=== PATIENT | female | born 1945 | race Caucasian/White ===

== ENCOUNTER 2020-09-20 22:40 | Emergency (ER) | payer MEDICARE, MEDICAID, SELFPAY ==
[2020-09-20 22:51] VITALS: BP 130/88; BP 156/66; PULSE 78; PULSE 95; RESP 18; TEMP 36.7; O2SAT 94; O2SAT 96; BMI 36.8
--- NOTE | 2020-09-20 23:07 | ECG_ITS ---
Test Reason : FALL Blood Pressure : / mmHG Vent. Rate : 064 BPM Atrial Rate : 064 BPM P-R Int : 190 ms QRS Dur : 074 ms QT Int : 448 ms P-R-T Axes : 062 040 060 degrees QTc Int : 462 ms Normal sinus rhythm Normal ECG When compared with ECG of 29-OCT-2019 09:50, No significant change was found Referred By: Shea Perry Electronically Signed By:MESHA MILLS MD
--- NOTE | 2020-09-20 23:12 | ED_ITS ---
HPI - Fall General Chief Complaint: Fall Stated Complaint: fall Time Seen by Provider: 09/20/20 22:54 Source: patient Mode of arrival: EMS History of Present Illness HPI Narrative: This is a 74-year-old female who is brought in by EMS for pe rsistent pain after she sustained a mechanical fall at approximately 4:00 p.m. this evening without loss of consciousness but does report a head strike to the left forehead and is currently on aspirin and Plavix. Patient denies any associated fevers, chills, urinary pain/ burning / frequency, dizziness, or palpitations prior to the event. She states she is having persistent right chest wall pain as well as right-sided abdominal discomfort that extends down into the right hip. She walks with the walker at baseline and does have a history of CVA. Related Data Allergies Allergy/AdvReac Type Severity Reaction Status Date / Time oxycodone [OXYCODONE] Allergy Mild ITCHING, Verified 09/20/20 22:51 itchy hydromorphone [From DILAUDID] AdvReac Mild ITCHING Verified 09/20/20 22:51 Review of Systems Review of Systems: Pertinent positives and negatives as stated in HPI 10 point review of systems is otherwise negative. PMFSH Past Medical History Source: nursing notes reviewed Medical History Diabetes Heart attack High cholesterol Stroke Social History Social History Alcohol intake: never Smoking Status: Former smoker Smoked in Last 30 Days: No Use of substances other than those prescribed or required for medical reasons: No Advance Directives: No Advance Directives Information Provided: Yes Physical Exam Vital Signs: Vital Signs: Vital Signs Temp Pulse Resp BP Pulse Ox 09/21/20 00:07 98.1 F 66 18 168/57 H 95 09/21/20 00:00 70 15 168/57 H 96 09/20/20 23:28 98.1 F 64 16 168/57 H 95 09/20/20 22:51 98.0 F 78 18 156/66 H 96 Body Mass Index 36.8 VITAL SIGNS: Reviewed. GENERAL: Well developed, well nourished, in no acute distress. HEAD: Normocephalic/ Contusion without laceration at the left forehead EYES: PERRLA, EOMI intact without pain, no nystagmus/pallor/icterus noted EARS: Ext canals without abnormality, TMs non-bulging and non-erythematous NOSE: Nares patent bilateral OROPHARYNX: no oral lesions noted, posterior pharynx clear and non-erythematous without noted tonsillar enlargement/erythema/exudates NECK: Supple, no adenopathy LUNGS: Normal breath sounds. No adventitious sounds or accessory muscle use. SpO2<96> CARDIOVASCULAR: Regular rate and rhythm without noted murmurs, no JVD or lower extremity edema. ABDOMEN: Soft, non-tender, non-distended with bowel sounds, large contusion to the right abdominal wall with pain on a palpation over the right iliac crest and mild lower right chest wall pain on palpation, No rigidity. No guarding. No palpable masses or hernias noted MUSCULOSKELETAL: No tenderness, deformities, or effusions noted on gross inspection. EXTREMITIES: No cyanosis, clubbing or edema, no noted rotation or shortening of either lower extremity. SKIN: Inspection of the skin reveals no rashes, ulcerations, jaundice, pallor, or petechiae. NEUROLOGIC: Alert and oriented x 4. Strength and sensation to light touch were g rossly intact x 4. Course Course Course Narrative: This is a 74-year-old female with history and clinical presentation consistent with mechanical fall on blood thinners with resulting contusions and some mild concern regarding possible right lower rib fracture with possible involvement of abdominal wall verses intra-abdominal injury and possibility of pelvic fracture versus contusion. Will pursue labs, imaging, EKG to rule out infectious / anemia / arrhythmia etiologies. Review of all investigations shows a leukocytosis that is felt to be secondary to stress response as CT of the chest does not identify any concerning infiltrates. Otherwise, there are no acute findings on laboratory workup and review of all imaging is otherwise negative except mildly displaced right posterior 11th rib fracture and contusion to the right abdominal wall. All results and findings were discussed with the patient at bedside and she will be discharged with instructions to use Tylenol and lidocaine patch for pain control as well as receiving an incentive spirometer. MDM - Fall Lab Data Result diagrams: 09/20/20 23:27 09/20/20 23:27 Labs: Lab Results 09/20/20 09/20/20 09/20/20 Range/Units 23:27 23:27 23:27 WBC 13.2 H (4.8-10.8) X10*3/uL RBC 3.65 L (4.20-5.50) X10*6/uL Hgb 10.8 L (12.0-16.0) g/dl Hct 33.7 L (37-47) % MCV 92.3 (80-98) fL MCH 29.6 (27.0-33.0) pg MCHC 32.0 (31.0-35.0) g/dl RDW 13.9 (11.0-16.0) % Plt Count 231 (160-400) X10*3/uL MPV 10.6 (9.4-12.3) fL Immature Gran % (Auto) 0.4 (0.0-0.4) % Neut % (Auto) 77.2 H (45-73) % Lymph % (Auto) 15.1 L (20-40) % [place] % (Auto) 5.6 (2-11) % Eos % (Auto) 1.2 (0-4) % Baso % (Auto) 0.5 (0-2) % Lymph # (Auto) 2.0 (1.2-4.9) X10*3/uL [place] # (Auto) 0.7 (0.1-1.2) X10*3/uL Eos # (Auto) 0.2 (0.0-0.4) X10*3/uL Baso # (Auto) 0.1 (0.0-0.2) X10*3/uL Abs Immat Gran (auto) 0.05 H (0.00-0.03) X10*3/uL Absolute Neuts (auto) 10.1 H (2.0-8.3) X10*3/uL Absolute Nucleated RBC 0.000 (0.0-0.012) X10*3/uL Nucleated RBC % (auto) 0.0 (0.0-0.2) /100WBC PT 12.7 (10.8-13.0) SEC INR 1.1 (0.9-1.1) Sodium 140 (135-145) mmol/L Potassium 4.7 (3.3-5.1) mmol/l Chloride 107 (96-108) mmol/L Carbon Dioxide 21 L (22-29) mmol/L Anion Gap 17 (12-20) BUN 24 H (9-16) mg/dL Creatinine 1.08 (0.5-1.4) mg/dL Estim Creat Clear Calc 51.8 Estimated GFR 50 Random Glucose 181 H (60-115) mg/dL Calcium 8.5 (8.4-10.2) mg/dL Total Bilirubin 0.3 (0.0-1.0) mg/dL AST 20 (5-31) U/L ALT 12 (0-31) U/L Alkaline Phosphatase 99 (39-117) U/L Total Protein 7.3 (6.5-8.0) g/dL Albumin 3.8 (3.5-5.0) g/dL ECG Data Attestation: I personally reviewed and interpreted this ECG as follows: Prior ECG tracings: available for review ( 10/29/2019 no acute changes on comparison) Interpretation: normal sinus rhythm, HR - 64, no evidence of acute ischemia, AL/QRS / QTC are within normal limits. Discharge Plan Discharge Clinical Impression: Contusion, Right rib fracture Patient Disposition: Home, Self-Care Instructions: Fall Prevention (ED), Fall Prevention for Older Adults (ED), Co ntusion in Adults (ED), How to Use an Incentive Spirometer (ED) Additional Instructions: 1. Resume all home medications as prescribed. 2. Tylenol 1000 mg, orally, every 6 hours as needed for pain control. Do not exceed 4000 mg within 24 hours. 3. Lidocaine patch, these are available [id number] and all [facility]/ [facility], please apply to area of maximal tenderness as directed on the outside packaging. 4. Incentive spirometry, please perform this exercise 10 times every 2 hours to assist in the prevention of developing pneumonia. The patient and/or family acknowledge understanding of results (as applicable), diagnosis, treatment plan, need for follow up, and symptoms that should prompt a return to the emergency room. Referrals: Nahid Waterman MD [Primary Care Provider] - 2 days (Fall with mildly displaced right 11th posterior rib)
[2020-09-20 23:28] VITALS: BP 168/57; PULSE 64; RESP 16; TEMP 36.7; O2SAT 95
[2020-09-20 23:33] LABS: MANUAL DIFF FLAG NO
[2020-09-20 23:34] LABS: Basophils Absolute Auto 0.1 X10*3/uL (0.0-0.2); Basophils Percent Auto 0.5 % (0-2); Eosinophils Absolute Auto 0.2 X10*3/uL (0.0-0.4); Eosinophils Percent Auto 1.2 % (0-4); Hematocrit 33.7 % (37-47); Hemoglobin 10.8 g/dl (12.0-16.0); Imm Gran Abs Auto 0.05 X10*3/uL (0.00-0.03); Imm Gran Pct Auto 0.4 % (0.0-0.4); Lymphocytes Percent Auto 15.1 % (20-40); Mean Corpuscular Hemoglobin 29.6 pg (27.0-33.0); Mean Corpuscular Volume 92.3 fL (80-98); Mean Platelet Volume 10.6 fL (9.4-12.3); Monocytes Absolute Auto 0.7 X10*3/uL (0.1-1.2); Monocytes Percent Auto 5.6 % (2-11); Neutrophils Absolute Auto 10.1 X10*3/uL (2.0-8.3); Neutrophils Percent Auto 77.2 % (45-73); Platelet Count 231 X10*3/uL (160-400); Red Blood Count 3.65 X10*6/uL (4.20-5.50); Red Cell Distribution Width 13.9 % (11.0-16.0); White Blood Count 13.2 X10*3/uL (4.8-10.8)
[2020-09-20 23:40] LABS: INTERNATIONAL NORM RATIO 1.1 (0.9-1.1); Prothrombin Time 12.7 SEC (10.8-13.0)
--- NOTE | 2020-09-20 23:44 | PC.NURSE ---
updated patient daughter in waiting room on POC. agreeable, no further questions at this time. PCT at bedside for EKG
[2020-09-20 23:59] LABS: Alanine Aminotransferase 12 U/L (0-31); Albumin Level 3.8 g/dL (3.5-5.0); Alkaline Phosphatase 99 U/L (39-117); Anion Gap 17 (12-20); Aspartate Amino Transferase 20 U/L (5-31); Bilirubin Total 0.3 mg/dL (0.0-1.0); Blood Urea Nitrogen 24 mg/dL (9-16); Calcium 8.5 mg/dL (8.4-10.2); Carbon Dioxide 21 mmol/L (22-29); Chloride 107 mmol/L (96-108); Creatinine Clr Calc Pharmacy 51.8; Estimated Glomerular Filt Rate 50; Glucose Random 181 mg/dL (60-115); Potassium 4.7 mmol/l (3.3-5.1); Sodium 140 mmol/L (135-145); Total Protein 7.3 g/dL (6.5-8.0)
[2020-09-21] VITALS: BP 168/57; PULSE 70; RESP 15; O2SAT 96
[2020-09-21 00:07] VITALS: BP 168/57; PULSE 66; RESP 18; TEMP 36.7; O2SAT 95
--- NOTE | 2020-09-21 00:10 | CT_ITS ---
EXAMINATION: CT HEAD WITHOUT CONTRAST CLINICAL INFORMATION: Fall. On Plavix COMPARISON: 10/28/2019 TECHNIQUE: Contiguous axial imaging was performed from the skull base to vertex without intravenous contrast. This CT examination was performed using dose optimization techniques as appropriate, variously including the following: * Automated exposure control * Adjustment of mA and/or kV according to patient size (this includes techniques or standardized protocols for targeted exams where dose is matched to indication/reason for exam; i.e. extremities or head) Use of iterative reconstruction technique DLP: 724 mGy-cm. FINDINGS: There is no evidence of acute intracranial hemorrhage or territorial infarction. No abnormal mass effect or midline shift is seen. Mazariegos to white matter differentiation is well preserved. No extra-axial fluid collections are identified. No hydrocephalus. Proportional prominence of the ventricles and sulcal spaces is consistent with mild volume loss. Chronic left cerebellar hemisphere infarct. The osseous structures and soft tissues are normal. Opacification of the left sphenoid sinus. The mastoid air cells and visualized portions of the paranasal sinuses are otherwise well aerated. CT/CT head/brain wo con IMPRESSION: No acute intracranial pathology.
--- NOTE | 2020-09-21 00:10 | CT_ITS ---
EXAMINATION: CT CHEST WITH CONTRAST CT ABDOMEN AND PELVIS WITH CONTRAST CLINICAL INFORMATION: Fall. Right chest wall pain. Contusion of right abdominal wall. COMPARISON: 10/28/2019 TECHNIQUE: Multidetector volumetric imaging was performed through the chest, abdomen and pelvis following the administration of 85 mL of Omnipaque 350 intravenous contrast. Sagittal and coronal reformatted images were obtained on the technologist's workstation. Axial MIP volume rendering provided. This CT examination was performed using dose optimization techniques as appropriate, variously including the following: *Automated exposure control *Adjustment of mA and/or kV according to patient size (this includes techniques or standardized protocols for targeted exams where dose is matched to indication/reason for exam; i.e. extremities or head) *Use of iterative reconstruction technique DLP: 1205 mGy-cm. FINDINGS: CHEST: Lungs: The central airways are patent. There is moderate centrilobular emphysema. Mild septal thickening. Scattered areas of groundglass opacification. No dense consolidation. No pleural effusion or pneumothorax. No suspicious pulmonary nodules. Mediastinum: The heart is of normal size. There is no pericardial effusion. Central vascular structures are unremarkable. There is mediastinal and bilateral hilar lymphadenopathy. For instance, there is a right paratracheal lymph node short axis measurement 1.4 cm on series 5 image 20. This lymph node had measured 0.9 cm on the study from 10/28/2019. There are also enlarged hilar lymph nodes bilaterally, for instance measuring 1.1 cm on the left on series 5 image 28.. Chest Wall/Axilla: No lymphadenopathy. There is asymmetric ill-defined density in the left breast soft tissues, likely similar to previous. ABDOMEN/PELVIS: Liver, Gallbladder, Biliary Tree: The liver is normal in size, shape, and attenuation. No focal hepatic lesion or biliary ductal dilatation is present. Multiple stones are seen within the gallbladder lumen. No gallbladder wall thickening or pericholecystic fluid. Pancreas: Unremarkable. Spleen: Unremarkable. Adrenal Glands: Unremarkable. Kidneys and Ureters: The kidneys are normal in size, shape, and attenuation. There is no hydronephrosis or hydroureter. Mild perinephric stranding bilaterally. There is a left sided 0.4 cm calculus in the proximal ureter/renal pelvis. Scattered vascular calcifications. Left upper pole renal cyst. Bladder: Unremarkable. Gastrointestinal Tract: Tiny hiatal hernia. Duodenal diverticulum. Normal caliber small bowel. No obstruction. Colonic diverticulosis without diverticulitis. No free air or free fluid. Abdominal Wall: Prominent stranding overlies the right flank. No abdominal wall hernia. Lymphovascular Structures: Lymph nodes: Normal. Vascular: Normal caliber aorta with moderate atherosclerotic calcification. Pelvic Viscera: Uterus is not seen. No adnexal mass. OSSEOUS STRUCTURES: The sternum is intact. Vertebral body height and alignment is maintained. Mild disc space narrowing at the lower lumbar spine with vacuum disc phenomenon. Small multilevel endplate osteophytes. Diffuse facet arthropathy. There is a minimally displaced posterior right 11th rib fracture. This appears acute. No additional rib fractures are seen. The sacroiliac joints are symmetric. The pubic symphysis is intact. No pelvic fracture. CT/CT abdomen pelvis w con IMPRESSION: 1. Minimally displaced acute right posterior 11th rib fracture. 2. Soft tissue contusion along the right flank cutaneous tissues. No pelvic fracture. 3. Moderate emphysema. Scattered groundglass opacities in the lungs may be infectious or inflammatory. There is new mediastinal and hilar lymphadenopathy which is nonspecific. 4. There is a 0.4 cm calculus in the proximal left ureter/renal pelvis. No hydronephrosis.
[2020-09-21] MEDS: iohexoL 350 MG/ML 100 ML INFUS..BTL 85 ML IV (01:17)
[2020-09-21 01:56] LABS: Glucose Urine UA NEG (NEG); Leukocyte Esterase Urine NEG (NEG); Nitrite Urine NEG (NEG); Specific Gravity - Urine 1.015 (1.005-1.025); Urine Blood 1+ (NEG); Urine Ketones NEG (NEG); Urine Protein 1+ MG/DL (NEG-TRACE)
[2020-09-21] MEDS: Lidocaine 4 % Patch ADH..PATCH 1 PATCH TRANSDERMA (01:56)
[2020-09-21 01:57] LABS: Appearance Urine CLEAR; Color Urine YELLOW
[2020-09-21] MEDS: Acetaminophen 325 MG TABLET 975 MG PO (01:58)
[2020-09-21 02:04] VITALS: BP 150/55; PULSE 85; RESP 18; O2SAT 95
[2020-09-21 02:07] LABS: Bacteria Urine 1+ /LPF; Squamous Epithelial Cell Urine 1+ /LPF
== END 2020-09-21 02:40 | disposition home or self-care (01) ==
PROVIDERS: Emergency Provider Student in an Organized Health Care Education/Training Program; PCP Internal Medicine
DX: S22.31XA Fracture of one rib, right side, initial encounter for closed fracture (principal); S09.90XA Unspecified injury of head, initial encounter; S70.01XA Contusion of right hip, initial encounter; G44.309 Post-traumatic headache, unspecified, not intractable; R07.89 Other chest pain; M25.551 Pain in right hip; W18.30XA Fall on same level, unspecified, initial encounter; Y93.9 Activity, unspecified; Y92.008 Other place in unspecified non-institutional (private) residence as the place of occurrence of the external cause; Y99.9 Unspecified external cause status; Z87.891 Personal history of nicotine dependence
CPT/HCPCS: 36415; 70450; 71260; 74177; 80053; 81001; 85025; 85610; 93005; 99284; Q9967

== ENCOUNTER → 2020-12-08 10:22 | Outpatient (BNVA) | payer MEDICARE, MEDICAID, SELFPAY | PROVIDERS: PCP Internal Medicine; Visit Provider Nurse Practitioner Family | DX: R55 Syncope and collapse (principal); I95.1 Orthostatic hypotension; I25.10 Atherosclerotic heart disease of native coronary artery without angina pectoris; E78.5 Hyperlipidemia, unspecified; E11.9 Type 2 diabetes mellitus without complications; Z95.5 Presence of coronary angioplasty implant and graft; Z98.890 Other specified postprocedural states | CPT/HCPCS: 93005; 99212 ==

== ENCOUNTER → 2020-12-30 13:50 | Outpatient (REF) | payer MEDICARE, MEDICAID, SELFPAY ==
--- NOTE | 2020-12-30 13:56 | CA_ITS ---
Transthoracic Echocardiogram Patient (Last, First, Middle): Lilli Yepez A Gender: Female Date of : 1945 Age: 75 Procedure Date: 12/30/2020 Procedure Type: Transthoracic Echocardiogram Location: OP Height: 152.4 cm Weight: 90.72 kg BSA: 1.87 m2 Heart Rate: bpm BP: 130 / 80 mmHg Dispute Specialist: ODETTE Sutherland MD: Karla Palm SALAD [employer] Consultant: Dioni Ngo MD Symptoms: R55 - Syncope and collapse Study Quality: Fair ECG Rhythm: Sinus Conclusions: - 1. Normal LV systolic function with elevated left ventricular end-diastolic pressure 2. Normal cardiac valvular Doppler with moderate mitral annular calcification 3. Normal RV systolic pressure 4. No pericardial effusion Findings Left Ventricle Normal left ventricular size, thickness, and systolic function. The visually estimated ejection fraction is between 55-60%. Spectral Doppler is indicative of an impaired relaxation filling pattern. Elevated left ventricular end diastolic pressure. Right Ventricle Normal right ventricular cavity size and systolic function. Atria The left atrium is likely dilated. There is no evidence of interatrial shunt. The right atrium is normal in size. Aortic Valve There is mild calcification of the aortic valve. There is no aortic valve stenosis. There is no aortic valve regurgitation. Mitral Valve There is mild anterior and moderate posterior mitral leaflet thickening. There is moderate mitral annular calcification. There is trace mitral valve regurgitation. There is no mitral valve stenosis. Pulmonic Valve The pulmonic valve was not well visualized. Tricuspid Valve Likely normal tricuspid valve structure and function. There is mild tricuspid valve regurgitation. The right ventricular systolic pressure is normal. The right ventricular systolic pressure is 21 mmHg. Normal right atrial pressure. There is no evidence of pulmonary hypertension. Great Vessels All visible segments of the aorta are normal in size. The pulmonary artery was not well visualized. Small plaque is seen in the sino tubular ridge. Venous The inferior vena cava is normal in size and collapses greater than 50% with inspiration. Pericardium/Pleural There is no evidence of pericardial effusion. Prior Study Comparison No significant change compared to prior study dated: 10/29/2019. Measurements 2D Linear Measurements IVSd: 1.10 0.6-0.9/0.6-1.0 cm LVIDd: 4.15 3.9-5.3/4.2-5.9 cm LVIDd Index: 2.22 2.4-3.2/2.2-3.1 cm/m2 LVIDs: 3.02 2.0-3.6 cm LVPWd: 1.03 0.7-1.1 cm Ao Root: 3.30 2.1-3.5 cm LA Diam: 3.60 2.7-3.8/3.0-4.0 cm LAIDs Index: 1.93 1.5-2.3 cm/m2 LV Mass: 183.25 67-162/88-224 g LV Mass Index: 97.99 43-95/49-115 g/m2 LVOT Diam: 2.10 3.0+(-)1.3 cm 2D Systolic Function EF 4C: 56.60 >55% EF 2C: 55.00 >55% EF BiP: 56.40 >55% Mitral Valve MV Pk E: 1.18 MV PK A: 1.37 MV Decel Time: 158.00 E/A: 0.90 E'Lateral: 5.55 E'Medial: 5.11 E/E' Med: 23.10 E/E' Lat: 21.30 PHT: 46.00 MVA PHT: 4.78 Decel [place]: 7.44 Aortic Valve AoV Pk Stuart: 1.27 AoV Mn Stuart: 1.00 AoV VTI: 0.38 AoV Pk Grad: 6.00 Aov Mn Grad: 4.00 ALEKSANDAR Cont.VTI: 1.80 LVOT LVOT Pk Stuart: 0.68 LVOT Mn Stuart: 0.51 LVOT VTI: 0.20 LVOT Pk Grad: 2.00 LVOT Mn Grad: 1.00 LVOT Diam: 2.10 LVOT Area: 3.46 Diastolic Function MV Pk E: 1.18 MV Pk A: 1.37 E/A: 0.90 E'Medial: 5.11 E/E' Med: 23.10 E' Laterial: 5.55 E/E' Lat: 21.30 Tricuspid Valve TR Pk Stuart: 2.11 TR Pk Grad: 18.00 RA Press: 3.00 RVSP: 21.00 Great Vessels Aorta Ao Root-2D: 3.30 2.0-3.7 cm Ao Asc: 2.70 2.1-3.4 cm Ao Arch: 2.40 Updated in Other Vendor System with Status of Final Dioni Ngo MD electronically signed on 12/31/2020 9:17:16 AM with status of Final
== END ==
LOC: HO.CARD 13:50
PROVIDERS: Visit Provider Nurse Practitioner Family
DX: I25.10 Atherosclerotic heart disease of native coronary artery without angina pectoris (principal); R55 Syncope and collapse; E11.9 Type 2 diabetes mellitus without complications
CPT/HCPCS: 93306

== ENCOUNTER → 2021-01-05 11:12 | Outpatient (BNVA) | payer MEDICARE, MEDICAID, SELFPAY | PROVIDERS: PCP Internal Medicine; Visit Provider Nurse Practitioner Family | DX: Z13.89 Encounter for screening for other disorder (principal) | CPT/HCPCS: Q3014 ==

== ENCOUNTER → 2021-04-26 12:54 | Outpatient (BNVA) | payer MEDICARE, MEDICAID, SELFPAY | PROVIDERS: PCP Internal Medicine; Visit Provider Internal Medicine Cardiovascular Disease | DX: I95.1 Orthostatic hypotension (principal); I25.10 Atherosclerotic heart disease of native coronary artery without angina pectoris; R55 Syncope and collapse | CPT/HCPCS: 99212 ==

== ENCOUNTER → 2021-05-25 09:53 | Outpatient (BNVA) | payer MEDICARE, MEDICAID, SELFPAY | PROVIDERS: PCP Internal Medicine | DX: R35.1 Nocturia (principal); N39.41 Urge incontinence | CPT/HCPCS: 99212 ==

== ENCOUNTER → 2021-05-27 12:51 | Outpatient (BNVA) | payer MEDICARE, MEDICAID, SELFPAY | PROVIDERS: PCP Internal Medicine; Referring Provider Internal Medicine; Visit Provider Nurse Practitioner Family | DX: I95.1 Orthostatic hypotension (principal); I25.10 Atherosclerotic heart disease of native coronary artery without angina pectoris; E78.5 Hyperlipidemia, unspecified; R55 Syncope and collapse; Z98.890 Other specified postprocedural states | CPT/HCPCS: 99212 ==

== ENCOUNTER → 2021-06-29 14:51 | Outpatient (BNVA) | payer MEDICARE, MEDICAID, SELFPAY | PROVIDERS: PCP Internal Medicine; Referring Provider Internal Medicine; Visit Provider Internal Medicine Cardiovascular Disease | DX: R06.02 Shortness of breath (principal); I95.1 Orthostatic hypotension; I21.4 Non-ST elevation (NSTEMI) myocardial infarction; I25.119 Atherosclerotic heart disease of native coronary artery with unspecified angina pectoris; Z95.5 Presence of coronary angioplasty implant and graft; Z98.890 Other specified postprocedural states; Z87.891 Personal history of nicotine dependence; Z88.5 Allergy status to narcotic agent; Z79.4 Long term (current) use of insulin; Z79.899 Other long term (current) drug therapy | CPT/HCPCS: 99212 ==

== ENCOUNTER → 2021-06-30 10:40 | Outpatient (BNVA) | payer MEDICARE, MEDICAID, SELFPAY | PROVIDERS: PCP Internal Medicine | CPT/HCPCS: Q3014 ==

== ENCOUNTER 2021-08-02 06:25 | Day surgery (SDC) | payer MEDICARE, MEDICAID, SELFPAY ==
[2021-07-27 15:33] VITALS: BMI 41.2
--- NOTE | 2021-07-30 12:30 | MHC.SHP ---
Pre-Procedural Eval Section A Date of Service: 07/30/21 The patient is an INPATIENT: No Changes since office visit: No Cold of Flu in the past 2 weeks, No New Medical Problems, No Changes in Medication and No Patient answered all questions The History & Physical has been completed within 30 days and I have reviewed it.: No Section B Chief Complaint: cataract Allergies: Allergies Allergy/AdvReac Type Severity Reaction Status Date / Time oxycodone [OXYCODONE] Allergy Mild ITCHING, Verified 07/27/21 15:16 itchy adhesive tape Allergy Unknown Verified 07/27/21 15:17 bee pollen [bee stings] Allergy Swelling Verified 07/27/21 15:17 hydromorphone [From DILAUDID] AdvReac Mild ITCHING Verified 07/27/21 15:16 Plan Diagnosis/Plan: Unchanged I have reviewed the history and physical and performed a pertinent physical examination on my patient. No changes have occurred unless specified.
--- NOTE | 2021-07-30 13:12 | HO.ANESPROP2 ---
Documented by User: Migdalia El NP 07/30/21 13:14 HPI - Anesthesia Eval Consult details Narrative: 75yo F for Right Cataract Extraction IOL Insertion PCP cleared No previous cataract on record [facility] Active Problems Active Problems: All Active Problems (Updated 07/27/21 @ 15:10 by Leena Helms, RN) Syncope (Acute) Urge incontinence (Acute) Nocturia more than twice per night (Acute) History of cardiac catheterization (Acute) Orthostatic hypotension (Acute) Stented coronary artery (Acute) Diabetes (Acute) HLD (hyperlipidemia) (Acute) CAD (coronary artery disease) (Acute) Past Medical History Medical History (Updated 08/02/21 @ 07:34 by Nasra Mccurdy MD) CAD (coronary artery disease) Cataract CKD (chronic kidney disease) COPD (chronic obstructive pulmonary disease) Depression Diabetes Diabetic retinopathy Heart attack Hiatal hernia High cholesterol HLD (hyperlipidemia) Hypercholesterolemia Mild anemia NSTEMI (non-ST elevated myocardial infarction) Orthostatic hypotension HAYDEE on CPAP Osteoarthritis Resting tremor Sleep apnea Stroke Unsteady gait Vertigo Family History Family History Father CVD (cardiovascular disease) Mother Brain aneurysm Surgical History Surgical History (Updated 07/27/21 @ 15:10 by Leena Helms RN) History of cardiac catheterization Hx of colonoscopy Hx of vaginal hysterectomy Stented coronary artery Social History Social History Are you a primary skin care therapist to a significant other at home: No Do you presently have visiting nurse or other home services: Yes (Meals on Wheels) Alcohol intake: never Patient Tobacco Use Status: Former Tobacco user Quit Date: 7 yrs ago Tobacco use type: Cigarette Use of substances other than those prescribed or required for medical reasons: No Have you been hit, kicked, punched, or otherwise hurt by someone within the past year? If so, by whom?: No Are you DNR?: No Advance Directives: No Advance Directives Information Provided: No Advance Directives on File: No Recently lost weight without trying: No Eating poorly because of decreased appetite: No Nutrition Risks: No Nutritional Risk Patient : No Meds Allergies Allergy/AdvReac Type Severity Reaction Status Date / Time oxycodone [OXYCODONE] Allergy Mild ITCHING, Verified 07/27/21 15:16 itchy adhesive tape Allergy Unknown Verified 07/27/21 15:17 bee pollen [bee stings] Allergy Swelling Verified 07/27/21 15:17 hydromorphone [From DILAUDID] AdvReac Mild ITCHING Verified 07/27/21 15:16 Home Medications Medication Instructions Recorded Confirmed Last Taken Type atorvastatin 80 mg tablet 80 mg PO DAILY 12/08/20 07/27/21 Unknown History ezetimibe 10 mg tablet 10 mg PO DAILY 12/08/20 07/27/21 Unknown History fluoxetine 20 mg capsule 20 mg PO DAILY 12/08/20 07/27/21 08/02/21 History insulin glargine 100 unit/mL (3 30 unit SUBCUT BEDTIME ml 12/08/20 07/27/21 Unknown History mL) subcutaneous pen losartan 100 mg tablet 100 mg PO DAILY 12/08/20 07/27/21 Unknown History metformin 500 mg tablet 500 mg PO BID 12/08/20 07/27/21 08/02/21 History metoprolol tartrate 25 mg tablet 25 mg PO BID 12/08/20 07/27/21 Unknown History aspirin 81 mg tablet,delayed 81 mg PO DAILY 04/26/21 07/27/21 Unknown History release (Adult Aspirin Regimen) pen needle, diabetic 32 gauge x #50 ea 05/25/21 06/29/21 Unknown History albuterol sulfate 90 mcg/actuation 2 puff INHALATION Q4-6H PRN 07/27/21 07/27/21 Unknown History aerosol inhaler (ProAir HFA) Exam Exam Date and Time: July 30, 2021 1312 Height,Weight and Vital Signs: Height 4 ft 11 in Weight 92.6 kg Narrative Narrative: ECHO Conclusions: - 1. Normal LV systolic function with elevated left ventricular? end-diastolic pressure ? 2. Normal cardiac valvular Doppler with moderate mitral annular? calcification? 3. Normal RV systolic pressure ? 4. No pericardial effusion ? ? ? Assessment and Plan Assessment Anesthesia Assessment: Chart Reviewed Documented by User: Nasra Mccurdy MD 08/02/21 07:51 [facility] Active Problems Active Problems: All Active Problems (Updated 07/27/21 @ 15:10 by Leena Helms, RN) Syncope (Acute) Urge incontinence (Acute) Nocturia more than twice per night (Acute) History of cardiac catheterization (Acute) Orthostatic hypotension (Acute) Stented coronary artery (Acute). Only on aspirin now. Had been on plavix- d'jimmie 05/[address] Ngo Diabetes (Acute) HLD (hyperlipidemia) (Acute) CAD (coronary artery disease) (Acute). Denies recent chest pain Past Medical History Medical History (Updated 08/02/21 @ 07:34 by Nasra Mccurdy MD) CAD (coronary artery disease) Cataract CKD (chronic kidney disease) COPD (chronic obstructive pulmonary disease) Depression Diabetes Diabetic retinopathy Heart attack Hiatal hernia High cholesterol HLD (hyperlipidemia) Hypercholesterolemia Mild anemia NSTEMI (non-ST elevated myocardial infarction) Orthostatic hypotension HAYDEE on CPAP Osteoarthritis Resting tremor Sleep apnea Stroke Unsteady gait Vertigo Family History Family History Father CVD (cardiovascular disease) Mother Brain aneurysm Family history of problems with anesthesia: No Surgical History Surgical History (Updated 07/27/21 @ 15:10 by Leena Helms, JONATHAN) History of cardiac catheterization Hx of colonoscopy Hx of vaginal hysterectomy Stented coronary artery History of Problems with Anesthesia: No Social History Social History Are you a primary skin care therapist to a significant other at home: No Do you presently have visiting nurse or other home services: Yes (Meals on Wheels) Alcohol intake: never Patient Tobacco Use Status: Former Tobacco user Quit Date: 7 yrs ago Tobacco use type: Cigarette Use of substances other than those prescribed or required for medical reasons: No Have you been hit, kicked, punched, or otherwise hurt by someone within the past year? If so, by whom?: No Are you DNR?: No Advance Directives: No Advance Directives Information Provided: No Advance Directives on File: No Recently lost weight without trying: No Eating poorly because of decreased appetite: No Nutrition Risks: No Nutritional Risk Patient : No Meds Allergies Allergy/AdvReac Type Severity Reaction Status Date / Time oxycodone [OXYCODONE] Allergy Mild ITCHING, Verified 07/27/21 15:16 itchy adhesive tape Allergy Unknown Verified 07/27/21 15:17 bee pollen [bee stings] Allergy Swelling Verified 07/27/21 15:17 hydromorphone [From DILAUDID] AdvReac Mild ITCHING Verified 07/27/21 15:16 Home Medications Medication Instructions Recorded Confirmed Last Taken Type atorvastatin 80 mg tablet 80 mg PO DAILY 12/08/20 07/27/21 Unknown History ezetimibe 10 mg tablet 10 mg PO DAILY 12/08/20 07/27/21 Unknown History fluoxetine 20 mg capsule 20 mg PO DAILY 12/08/20 07/27/21 08/02/21 History insulin glargine 100 unit/mL (3 30 unit SUBCUT BEDTIME ml 12/08/20 07/27/21 Unknown History mL) subcutaneous pen losartan 100 mg tablet 100 mg PO DAILY 12/08/20 07/27/21 Unknown History metformin 500 mg tablet 500 mg PO BID 12/08/20 07/27/21 08/02/21 History metoprolol tartrate 25 mg tablet 25 mg PO BID 12/08/20 07/27/21 Unknown History aspirin 81 mg tablet,delayed 81 mg PO DAILY 04/26/21 07/27/21 Unknown History release (Adult Aspirin Regimen) pen needle, diabetic 32 gauge x #50 ea 05/25/21 06/29/21 Unknown History albuterol sulfate 90 mcg/actuation 2 puff INHALATION Q4-6H PRN 07/27/21 07/27/21 Unknown History aerosol inhaler (ProAir HFA) Exam Height,Weight and Vital Signs: Height 4 ft 11 in Weight 92.6 kg Vital Signs Temp Pulse Resp BP Pulse Ox 08/02/21 07:14 98.2 F 68 20 188/63 H 96 Pertinent Lab Results Pertinent Lab Results: Lab Results 09/13/21 Range/Units 07:06 POC Glucose 119 H (60-115) mg/dL Airway Mallampati Class: III TM Dist: >3cm Neck ROM: Full Denture: Upper Heart: RRR Lungs: CTAB Assessment and Plan Assessment Anesthesia Assessment: Anesthesia Plan Discussed Final Anesthetic Review Family History of Problems with Anesthesia: No History of Problems with Anesthesia: No NPO: Yes ASA Class: III Final Preanesthetic Review: No Changes in Pt Med Stat, Meds/Allgs Chart Reviewed, Consent Obtained/Reviewed and Anes Risks/Benef Reviewed Patient Risk: Intermediate Procedure Risk: Low Assessment/Block/Sedation in SS: Assess/Block/Sedation-SS Anesthetic Plan Anesthetic Plan: MAC: Disposition: Standard PACU
[2021-08-02 07:10] LABS: Glucose, Whole Blood 119 mg/dL (60-115)
[2021-08-02 07:14] VITALS: BP 188/63; PULSE 68; RESP 20; TEMP 36.8; O2SAT 96
[2021-08-02] MEDS: Tetracaine HCl/PF 0.5% Oph Sol 4 ML DROPS 1 DROP EYE-RIGHT (07:15)
[2021-08-02] MEDS: Tropicamide 1 % Ophth Sol 3 ML BTL 1 DROP EYE-RIGHT ×3 (07:18→07:26)
[2021-08-02] MEDS: Phenylephrine HCL 2.5% Oph SoL 2 ML BOTTLE 1 DROP EYE-RIGHT ×3 (07:21→07:30)
[2021-08-02] MEDS: Lactated Ringers 500 ML 50 ML IV (07:37)
--- NOTE | 2021-08-02 08:20 | HO.PNOPHT ---
Ophthalmology Procedure Procedure Date of Service: 08/02/21 Ophthalmology Viscoelastic: Healon Duet Dual Pack Pro Ophthalmology Lenses: TECNIS [id number] (23.5) Procedure Notes: PREOPERATIVE DIAGNOSIS: Decreased visual acuity right eye secondary to cataract POSTOPERATIVE DIAGNOSIS: Same PROCEDURE: Right cataract extraction with intraocular lens insertion SURGEON: Zeus Nye M.D. ANESTHESIA: Topical/MAC ESTIMATED BLOOD LOSS: None COMPLICATIONS: None After obtaining informed consent, the patient was brought to the operating room suite and placed in the supine position. After adequate sedation per anesthesia, topical drops of Tetracaine were given to the right eye. The eye was then prepped and draped in the usual sterile fashion. The operating room microscope was then positioned over the operative eye and a lid speculum placed. A paracentesis was created. Viscoelastic was then instilled into the anterior chamber. A three plane incision was then created temporally, utilizing a 2.85 mm keratome. Capsulotomy forceps were then utilized to create a circular tear capsulotomy. Hydrodissection and hydrodelineation were carried out until adequate mobilization of the nucleus occurred. Phacoemulsification was then utilized to remove the dense central nucleus followed by removal of the cortical material utilizing the automated aspiration irrigation unit. Viscoelastic was instilled into the posterior capsular bag followed by placement of a posterior chamber intraocular lens without difficulty. The residual Viscoelastic was then removed utilizing the automated IA machine. The wound was checked and found to be watertight. The patient tolerated the procedure well and the lid speculum was removed. Intracameral injection of Vigamox 0.1 mL followed by a subtenon injection of Kenalog-40 0.2 mL were administered. The patient will be seen in the a.m.
[2021-08-02 08:40] VITALS: BP 127/73; PULSE 67; RESP 18; TEMP 36.4; O2SAT 96
== END 2021-08-02 08:52 | disposition home or self-care (01) ==
PROVIDERS: PCP Internal Medicine; Visit Provider Ophthalmology
PROC: (CPT 66985; principal; 2021-08-02 08:20)
DX: H25.11 Age-related nuclear cataract, right eye (principal); H35.3131 Nonexudative age-related macular degeneration, bilateral, early dry stage; I10 Essential (primary) hypertension; E11.9 Type 2 diabetes mellitus without complications; G47.33 Obstructive sleep apnea (adult) (pediatric); I25.10 Atherosclerotic heart disease of native coronary artery without angina pectoris; Z98.61 Coronary angioplasty status; Z86.73 Personal history of transient ischemic attack (TIA), and cerebral infarction without residual deficits; Z87.891 Personal history of nicotine dependence; Z79.84 Long term (current) use of oral hypoglycemic drugs; Z79.899 Other long term (current) drug therapy; Z79.82 Long term (current) use of aspirin
CPT/HCPCS: 66984; 82947; J2250; J3010; J3300; V2632

== ENCOUNTER 2021-08-16 07:28 | Day surgery (SDC) | payer MEDICARE, MEDICAID, SELFPAY ==
[2021-07-27 15:37] VITALS: BMI 42.8
--- NOTE | 2021-08-11 13:15 | MHC.SHP ---
Pre-Procedural Eval Section A Date of Service: 08/11/21 The patient is an INPATIENT: No Changes since office visit: No Cold of Flu in the past 2 weeks, No New Medical Problems, No Changes in Medication and No Patient answered all questions The History & Physical has been completed within 30 days and I have reviewed it.: Yes Section B Chief Complaint: cataract Allergies: Allergies Allergy/AdvReac Type Severity Reaction Status Date / Time oxycodone [OXYCODONE] Allergy Mild ITCHING, Verified 07/27/21 15:16 itchy adhesive tape Allergy Unknown Verified 07/27/21 15:17 bee pollen [bee stings] Allergy Swelling Verified 07/27/21 15:17 hydromorphone [From DILAUDID] AdvReac Mild ITCHING Verified 07/27/21 15:16 Plan Diagnosis/Plan: Unchanged I have reviewed the history and physical and performed a pertinent physical examination on my patient. No changes have occurred unless specified.
--- NOTE | 2021-08-13 08:40 | HO.ANESPROP2 ---
Documented by User: Migdalia El NP 08/13/21 08:41 HPI - Anesthesia Eval Consult details Narrative: 75yo F for Left Cataract Extraction IOL Insertion PCP cleared R eye 08/02/21 with TIVA: Fent 50, Midaz 1.5 PMFSH Active Problems Active Problems: All Active Problems (Updated 08/02/21 @ 07:34 by Nasra Mccurdy MD) Syncope (Acute) Urge incontinence (Acute) Nocturia more than twice per night (Acute) History of cardiac catheterization (Acute) Orthostatic hypotension (Acute) Stented coronary artery (Acute) Diabetes (Acute) HLD (hyperlipidemia) (Acute) CAD (coronary artery disease) (Acute) Past Medical History Medical History (Updated 08/02/21 @ 07:34 by Nasra Mccurdy MD) CAD (coronary artery disease) Cataract CKD (chronic kidney disease) COPD (chronic obstructive pulmonary disease) Depression Diabetes Diabetic retinopathy Heart attack Hiatal hernia High cholesterol HLD (hyperlipidemia) Hypercholesterolemia Mild anemia NSTEMI (non-ST elevated myocardial infarction) Orthostatic hypotension HAYDEE on CPAP Osteoarthritis Resting tremor Sleep apnea Stroke Unsteady gait Vertigo Family History Family History Father CVD (cardiovascular disease) Mother Brain aneurysm Family history of problems with anesthesia: No Surgical History Surgical History (Updated 08/10/21 @ 15:13 by Leena Helms RN) History of cardiac catheterization History of cataract extraction Hx of colonoscopy Hx of vaginal hysterectomy Stented coronary artery History of Problems with Anesthesia: No Social History Social History Are you a primary healthcare facility administrator to a significant other at home: No Do you presently have visiting nurse or other home services: Yes (Meals on Wheels) Alcohol intake: never Patient Tobacco Use Status: Former Tobacco user Quit Date: 7 yrs ago Tobacco use type: Cigarette Use of substances other than those prescribed or required for medical reasons: No Have you been hit, kicked, punched, or otherwise hurt by someone within the past year? If so, by whom?: No Are you DNR?: No Advance Directives: No Advance Directives Information Provided: No Advance Directives on File: No Recently lost weight without trying: No Eating poorly because of decreased appetite: No Nutrition Risks: No Nutritional Risk Patient : No Meds Allergies Allergy/AdvReac Type Severity Reaction Status Date / Time oxycodone [OXYCODONE] Allergy Mild ITCHING, Verified 07/27/21 15:16 itchy adhesive tape Allergy Unknown Verified 07/27/21 15:17 bee pollen [bee stings] Allergy Swelling Verified 07/27/21 15:17 hydromorphone [From DILAUDID] AdvReac Mild ITCHING Verified 07/27/21 15:16 Home Medications Medication Instructions Recorded Confirmed Last Taken Type atorvastatin 80 mg tablet 80 mg PO DAILY 12/08/20 07/27/21 Unknown History ezetimibe 10 mg tablet 10 mg PO DAILY 12/08/20 07/27/21 08/16/21 History fluoxetine 20 mg capsule 20 mg PO DAILY 12/08/20 07/27/21 08/02/21 History insulin glargine 100 unit/mL (3 30 unit SUBCUT BEDTIME ml 12/08/20 07/27/21 Unknown History mL) subcutaneous pen losartan 100 mg tablet 100 mg PO DAILY 12/08/20 07/27/21 Unknown History metformin 500 mg tablet 500 mg PO BID 12/08/20 07/27/21 08/02/21 History metoprolol tartrate 25 mg tablet 25 mg PO BID 12/08/20 07/27/21 08/16/21 History aspirin 81 mg tablet,delayed 81 mg PO DAILY 04/26/21 07/27/21 Unknown History release (Adult Aspirin Regimen) pen needle, diabetic 32 gauge x #50 ea 05/25/21 06/29/21 Unknown History albuterol sulfate 90 mcg/actuation 2 puff INHALATION Q4-6H PRN 07/27/21 07/27/21 Unknown History aerosol inhaler (ProAir HFA) Exam Exam Date and Time: August 13, 2021 0840 Height,Weight and Vital Signs: Height 4 ft 11 in Weight 96.2 kg Assessment and Plan Assessment Anesthesia Assessment: Chart Reviewed Final Anesthetic Review Family History of Problems with Anesthesia: No History of Problems with Anesthesia: No Documented by User: Len Larson MD 08/16/21 07:58 [facility] Past Medical History Medical History (Updated 08/02/21 @ 07:34 by Nasra Mccurdy MD) CAD (coronary artery disease) Cataract CKD (chronic kidney disease) COPD (chronic obstructive pulmonary disease) Depression Diabetes Diabetic retinopathy Heart attack Hiatal hernia High cholesterol HLD (hyperlipidemia) Hypercholesterolemia Mild anemia NSTEMI (non-ST elevated myocardial infarction) Orthostatic hypotension HAYDEE on CPAP Osteoarthritis Resting tremor Sleep apnea Stroke Unsteady gait Vertigo Family History Family History Father CVD (cardiovascular disease) Mother Brain aneurysm Surgical History Surgical History (Updated 08/10/21 @ 15:13 by Leena Helms RN) History of cardiac catheterization History of cataract extraction Hx of colonoscopy Hx of vaginal hysterectomy Stented coronary artery Social History Social History Are you a primary healthcare facility administrator to a significant other at home: No Do you presently have visiting nurse or other home services: Yes (Meals on Wheels) Alcohol intake: never Patient Tobacco Use Status: Former Tobacco user Quit Date: 7 yrs ago Tobacco use type: Cigarette Use of substances other than those prescribed or required for medical reasons: No Have you been hit, kicked, punched, or otherwise hurt by someone within the past year? If so, by whom?: No Are you DNR?: No Advance Directives: No Advance Directives Information Provided: No Advance Directives on File: No Recently lost weight without trying: No Eating poorly because of decreased appetite: No Nutrition Risks: No Nutritional Risk Patient : No Meds Allergies Allergy/AdvReac Type Severity Reaction Status Date / Time oxycodone [OXYCODONE] Allergy Mild ITCHING, Verified 07/27/21 15:16 itchy adhesive tape Allergy Unknown Verified 07/27/21 15:17 bee pollen [bee stings] Allergy Swelling Verified 07/27/21 15:17 hydromorphone [From DILAUDID] AdvReac Mild ITCHING Verified 07/27/21 15:16 Home Medications Medication Instructions Recorded Confirmed Last Taken Type atorvastatin 80 mg tablet 80 mg PO DAILY 12/08/20 07/27/21 Unknown History ezetimibe 10 mg tablet 10 mg PO DAILY 12/08/20 07/27/21 08/16/21 History fluoxetine 20 mg capsule 20 mg PO DAILY 12/08/20 07/27/21 08/02/21 History insulin glargine 100 unit/mL (3 30 unit SUBCUT BEDTIME ml 12/08/20 07/27/21 Unknown History mL) subcutaneous pen losartan 100 mg tablet 100 mg PO DAILY 12/08/20 07/27/21 Unknown History metformin 500 mg tablet 500 mg PO BID 12/08/20 07/27/21 08/02/21 History metoprolol tartrate 25 mg tablet 25 mg PO BID 12/08/20 07/27/21 08/16/21 History aspirin 81 mg tablet,delayed 81 mg PO DAILY 04/26/21 07/27/21 Unknown History release (Adult Aspirin Regimen) pen needle, diabetic 32 gauge x #50 ea 05/25/21 06/29/21 Unknown History albuterol sulfate 90 mcg/actuation 2 puff INHALATION Q4-6H PRN 07/27/21 07/27/21 Unknown History aerosol inhaler (ProAir HFA) Exam Airway Mallampati Class: III TM Dist: >3cm Neck ROM: Full Denture: Upper Loose/Missing/Broken Teeth: Yes Heart: [id number] Lungs: cta b/l Assessment and Plan Assessment Anesthesia Assessment: Anesthesia Plan Discussed Final Anesthetic Review NPO: Yes ASA Class: III Final Preanesthetic Review: No Changes in Pt Med Stat, Meds/Allgs Chart Reviewed, Consent Obtained/Reviewed and Anes Risks/Benef Reviewed Patient Risk: Intermediate Procedure Risk: Low Assessment/Block/Sedation in SS: Assess/Block/Sedation-SS Anesthetic Plan Anesthetic Plan: MAC: and Agree w/ Assess. and Plan Disposition: Standard PACU
[2021-08-16 07:55] VITALS: BP 171/70; PULSE 75; RESP 18; TEMP 36.7; O2SAT 93
[2021-08-16] MEDS: Tetracaine HCl/PF 0.5% Oph Sol 4 ML DROPS 1 DROP EYE-LEFT (08:01)
[2021-08-16] MEDS: Tropicamide 1 % Ophth Sol 3 ML BTL 1 DROP EYE-LEFT ×3 (08:02→08:17)
[2021-08-16] MEDS: Phenylephrine HCL 2.5% Oph SoL 2 ML BOTTLE 1 DROP EYE-LEFT ×3 (08:08→08:22)
[2021-08-16] MEDS: Lactated Ringers 500 ML 50 ML IV (08:08)
--- NOTE | 2021-08-16 09:09 | HO.PNOPHT ---
Ophthalmology Procedure Procedure Date of Service: 08/16/21 Ophthalmology Viscoelastic: Healon Duet Dual Pack Pro Ophthalmology Lenses: TECFLORENTINO [id number] (24) Procedure Notes: PREOPERATIVE DIAGNOSIS: Decreased visual acuity left eye secondary to cataract POSTOPERATIVE DIAGNOSIS: Same PROCEDURE: Left cataract extraction with intraocular lens insertion SURGEON: Zeus Nye M.D. ANESTHESIA: Topical/MAC ESTIMATED BLOOD LOSS: None COMPLICATIONS: None After obtaining informed consent, the patient was brought to the operation room suite and placed in the supine position. After adequate sedation per anesthesia, topical drops of Tetracaine were given to the left eye. The eye was then prepped and draped in the usual sterile fashion. The operating room microscope was then positioned over the operative eye and a lid speculum placed. A paracentesis was created. Viscoelastic was then instilled into the anterior chamber. A three plane incision was then created temporally, utilizing a 2.85 mm keratome. Capsulotomy forceps were then utilized to create a circular tear capsulotomy. Hydrodissection and hydrodelineation were carried out until adequate mobilization of the nucleus occurred. Phacoemulsification was then utilized to remove the dense central nucleus followed by removal of the cortical material utilizing the automated aspiration irrigation unit. Viscoat elastic was instilled into the posterior capsular bag followed by placement of a posterior chamber intraocular lens without difficulty. The residual Viscoat elastic was then removed utilizing the automated IA machine. The wound was check and found to be watertight. The patient tolerated the procedure well and the lid speculum was removed. Intracameral injection of Vigamox 0.1 mL followed by a subtenon injection of Kenalog-40 0.2 mL were administered. The patient will be seen in the a.m.
[2021-08-16 09:32] VITALS: BP 151/55; PULSE 61; RESP 18; TEMP 36.4; O2SAT 96
== END 2021-08-16 09:44 | disposition home or self-care (01) ==
PROVIDERS: PCP Internal Medicine; Visit Provider Ophthalmology
PROC: (CPT 66985; principal; 2021-08-16 09:10)
DX: H25.12 Age-related nuclear cataract, left eye (principal); E11.9 Type 2 diabetes mellitus without complications; I10 Essential (primary) hypertension; Z86.73 Personal history of transient ischemic attack (TIA), and cerebral infarction without residual deficits; I25.2 Old myocardial infarction; Z79.82 Long term (current) use of aspirin; Z79.84 Long term (current) use of oral hypoglycemic drugs; Z79.899 Other long term (current) drug therapy
CPT/HCPCS: 66984; J2250; J3300; V2632

== ENCOUNTER → 2022-01-31 13:23 | Outpatient (BNVA) | payer MEDICARE, MEDICAID, SELFPAY | PROVIDERS: PCP Internal Medicine; Visit Provider Internal Medicine Cardiovascular Disease | DX: R06.02 Shortness of breath (principal); I25.10 Atherosclerotic heart disease of native coronary artery without angina pectoris; Z79.899 Other long term (current) drug therapy | CPT/HCPCS: 93005; 99212 ==

== ENCOUNTER → 2022-02-23 08:21 | Outpatient (REF) | payer MEDICARE, MEDICAID, SELFPAY ==
--- NOTE | ~2022-02-23 | NM_ITS ---
Lexiscan Myocardial perfusion study Indication: Shortness of breath, known coronary disease with LAD/RCA stenting, abnormal EKG, assess for ischemia Technique: The patient was brought in for a Lexiscan perfusion study on 02/23/2022 and was injected 0.4 mg of Lexiscan intravenously. Within a minute of this injection 30 mCi of sestamibi was given intravenously. Images were obtained using the SPECT gamma camera interlaced with the gating device. Images were obtained in supine position. Resting perfusion study was performed on 02/24/2022. Patient was administered 30 mCi of sestamibi intravenously at rest. Images were then obtained in supine position. Total [id number]. Images were processed with the software and compared side to side in short axis, horizontal long axis and vertical long axis views. Findings: Raw acquisition was reviewed. Arms by the patient's side. The stress perfusion study showed markedly reduced tracer uptake in most of the inferior wall, inferolateral wall; basal inferoseptal wall. There is slight improvement with CT at admission correction which may indicate some components of diaphragmatic attenuation artifact. The gated study shows low normal LV systolic function with calculated LVEF of 50%. LV cavity is normal in size. The gated study shows diminished contractility in the inferior wall and inferolateral wall, basal inferoseptal wall. Resting study shows improved tracer uptake in the inferior wall, inferoseptal wall, inferolateral wall compared to the stress acquisition. Gating at rest reveals reduced contractility in the basal septum, inferior septum, inferior wall as well as most of the inferolateral wall. The findings are consistent with inferior, inferoseptal as well as the inferolateral defect with fixed and reversible components. NM/NM jonelle perf SPECT rest & str Impression: 1. Myocardial perfusion imaging study shows ischemia/infarct pattern involving the inferior wall, inferolateral wall as well as basal part of inferior septum. There is significant ischemia component. 2. Gated LVEF is 50% during stress and 56% during rest. 3. Transient ischemic dilatation not present. EKG component of the test reported separately.
--- NOTE | 2022-02-23 08:28 | CA_ITS ---
Transthoracic Echocardiogram Patient (Last, First, Middle): Lilli Yepez A Gender: Female Date of : 1945 Age: 76 Procedure Date: 02/23/2022 Procedure Type: Transthoracic Echocardiogram Location: OP Height: 147.32 cm Weight: 93.9 kg BSA: 1.85 m2 Heart Rate: bpm BP: 150 / 90 mmHg Termite Renewal Inspector: ODETTE Sutherland MD: Dioni Ngo MD [employer] Lead: Dioni Ngo MD Symptoms: R06.02 - Shortness of breath Study Quality: Poor ECG Rhythm: Sinus Conclusions: - 1. Normal LV systolic function with mild LVH with impaired relaxation filling pattern and elevated filling pressures 2. Normal cardiac valvular Doppler 3. Normal RV systolic pressure 4. No pericardial effusion Findings Left Ventricle Normal left ventricular size and systolic function. There is mildly increased left ventricular wall thickness. The visually estimated ejection fraction is between 55-60%. Spectral Doppler is indicative of an impaired relaxation filling pattern. Elevated filling pressures. E/E prime ratio is >15, consistent with elevated filling pressures. Right Ventricle Normal right ventricular cavity size and systolic function. Atria The left atrium is mildly dilated. There is lipomatous hypertrophy of the interatrial septum. There is no evidence of interatrial shunt. The right atrium is normal in size. Aortic Valve The aortic valve was not well visualized. There is no aortic valve stenosis. There is no aortic valve regurgitation. Mitral Valve There is mild anterior and posterior mitral leaflet thickening. There is mild mitral valve regurgitation. There is no mitral valve stenosis. Pulmonic Valve The pulmonic valve was not well visualized. Tricuspid Valve Likely normal tricuspid valve structure and function. There is trace tricuspid valve regurgitation. The right ventricular systolic pressure is normal. Normal right atrial pressure. There is no evidence of pulmonary hypertension. Great Vessels All visible segments of the aorta are normal in size. The pulmonary artery was not well visualized. Venous The inferior vena cava is normal in size and collapses greater than 50% with inspiration. Pericardium/Pleural There is no evidence of pericardial effusion. Prior Study Comparison No significant change compared to prior study dated: 12/30/2020. Measurements 2D Linear Measurements IVSd: 1.19 0.6-0.9/0.6-1.0 cm LVIDd: 4.12 3.9-5.3/4.2-5.9 cm LVIDd Index: 2.23 2.4-3.2/2.2-3.1 cm/m2 LVIDs: 2.91 2.0-3.6 cm LVPWd: 1.20 0.7-1.1 cm LA Diam: 4.00 2.7-3.8/3.0-4.0 cm LAIDs Index: 2.16 1.5-2.3 cm/m2 LV Mass: 214.20 67-162/88-224 g LV Mass Index: 115.78 43-95/49-115 g/m2 LVOT Diam: 2.00 3.0+(-)1.3 cm 2D Systolic Function EF 4C: 51.80 >55% EF 2C: 53.20 >55% EF BiP: 51.90 >55% Mitral Valve MV Pk E: 1.08 MV PK A: 1.24 MV Decel Time: 142.00 E/A: 0.90 E'Lateral: 4.03 E'Medial: 4.46 E/E' Med: 24.20 E/E' Lat: 26.80 PHT: 42.00 MVA PHT: 5.24 Decel [place]: 7.58 Aortic Valve AoV Pk Stuart: 1.29 AoV Mn Stuart: 0.93 AoV VTI: 0.35 AoV Pk Grad: 7.00 Aov Mn Grad: 4.00 ALEKSANDAR Cont.VTI: 1.77 LVOT LVOT Pk Stuart: 0.66 LVOT Mn Stuart: 0.44 LVOT VTI: 0.19 LVOT Pk Grad: 2.00 LVOT Mn Grad: 1.00 LVOT Diam: 2.00 LVOT Area: 3.14 Diastolic Function MV Pk E: 1.08 MV Pk A: 1.24 E/A: 0.90 E'Medial: 4.46 E/E' Med: 24.20 E' Laterial: 4.03 E/E' Lat: 26.80 Right Ventricle TAPSE (mm): 34.30 TVS' Stuart: 21.20 Tricuspid Valve TR Pk Stuart: 1.44 TR Pk Grad: 8.00 RA Press: 3.00 RVSP: 11.00 Great Vessels Aorta Sinus of Valsalva: 2.88 2.0-3.[address] [place]: 3.01 1.7-3.4 cm Ao Asc: 3.10 2.1-3.4 cm Updated in Other Vendor System with Status of Final Dioni Ngo MD electronically signed on 02/25/2022 4:52:30 PM with status of Final
--- NOTE | 2022-02-23 08:28 | CA_ITS ---
Acquisition Time: 2022-02-23 09:47:32 Total Exercise Time: 00:02:00 Test Indications: ashd,sob,cad Medications: Protocol: LEXISCAN Max HR: 076 BPM 52% of Pred: 144 BPM Max BP: 128/072 mmHG Max Work Load: 1.0 METS Pharmacological stress test with Lexiscan injection, while sitting and kicking her legs, with brief sob post injection, no chest discomfort, without arrythmia, with normotensive response to injection, with nondiagnostic EKG for ischemia. In recovery she reported lightheadedness that was treated with Aminophylline 75mg IVP to reverse Lexiscan with resolution of symptom. Nuclear images pending. Test reviewed with Dr Ngo. Referred By: Dioni Ngo Overread By: RENE TRAN
== END ==
LOC: HO.CARD 08:21
PROVIDERS: Visit Provider Internal Medicine Cardiovascular Disease
DX: I25.10 Atherosclerotic heart disease of native coronary artery without angina pectoris (principal); R06.02 Shortness of breath
CPT/HCPCS: 78452; 93017; 93306; A9500

== ENCOUNTER → 2022-03-09 13:35 | Outpatient (BNVA) | payer MEDICARE, MEDICAID, SELFPAY | PROVIDERS: PCP Internal Medicine; Visit Provider Internal Medicine Cardiovascular Disease | DX: I25.10 Atherosclerotic heart disease of native coronary artery without angina pectoris (principal) | CPT/HCPCS: 99212 ==

== ENCOUNTER → 2022-04-06 15:09 | Outpatient (BNVA) | payer MEDICARE, MEDICAID, SELFPAY | PROVIDERS: PCP Internal Medicine; Visit Provider Nurse Practitioner Family | DX: R94.39 Abnormal result of other cardiovascular function study (principal); R07.89 Other chest pain; R06.02 Shortness of breath; I25.10 Atherosclerotic heart disease of native coronary artery without angina pectoris; E78.5 Hyperlipidemia, unspecified; Z98.890 Other specified postprocedural states | CPT/HCPCS: 99212 ==

== ENCOUNTER → 2022-07-07 12:59 | Outpatient (BNVA) | payer MEDICARE, MEDICAID, SELFPAY | PROVIDERS: PCP Internal Medicine; Visit Provider Internal Medicine Cardiovascular Disease | DX: I25.10 Atherosclerotic heart disease of native coronary artery without angina pectoris (principal); I95.1 Orthostatic hypotension | CPT/HCPCS: 99212 ==

== ENCOUNTER → 2022-11-07 10:20 | Outpatient (BNVA) | payer MEDICARE, MEDICAID, SELFPAY | PROVIDERS: PCP Internal Medicine; Visit Provider Urology | DX: N39.41 Urge incontinence (principal); R35.1 Nocturia; N32.81 Overactive bladder | CPT/HCPCS: 51798; 99212 ==

== ENCOUNTER 2023-01-09 16:11 | Inpatient (IN) | payer MEDICARE, MEDICAID, SELFPAY ==
--- NOTE | ~2023-01-09 | CT_ITS ---
EXAMINATION: CT CHEST WITHOUT CONTRAST CLINICAL INFORMATION: Shortness of breath COMPARISON: Chest CT 09/21/2020 TECHNIQUE: Multidetector volumetric CT imaging of the chest was done. Axial MIP volume rendering provided. Sagittal and coronal reformatted images were obtained. This CT examination was performed using dose optimization techniques as appropriate, variously including the following: *Automated exposure control *Adjustment of mA and/or kV according to patient size (this includes techniques or standardized protocols for targeted exams where dose is matched to indication/reason for exam; i.e. extremities or head) *Use of iterative reconstruction technique DLP: 353 mGy-cm FINDINGS: LUNGS: Mild centrilobular emphysema. No airspace consolidation. No suspicious appearing pulmonary nodules. Scattered small sub-4 mm calcified granulomas bilaterally. A few small sessile left-sided perifissural nodules consistent with small intrapulmonary lymph nodes, unchanged. Minimal subsegmental atelectasis in the inferior right middle lobe. Central airways are clear. MEDIASTINUM: No cardiomegaly or pericardial effusion. Extensive three-vessel coronary artery vascular calcifications. No thoracic aortic aneurysm. Extensive aortic vascular calcifications. Nondilated central pulmonary trunk. Borderline enlarged right lower paratracheal lymph node measuring 1 cm in short axis, previously 1.5 cm and nonspecific. No other enlarged mediastinal or hilar lymph nodes. CORONARY ARTERY CALCIFICATION: Present, as above. PLEURA: No pleural fluid collection or pneumothorax. AXILLA: No lymphadenopathy. UPPER ABDOMEN: Cholelithiasis. Visualized upper abdominal viscera otherwise unremarkable. OSSEOUS STRUCTURES: No acute fracture or suspicious osseous lesion. Mild multilevel thoracic spondylosis. CT/CT chest wo IV con IMPRESSION: 1. No airspace consolidation or effusions. 2. Mild centrilobular emphysema. 3. No new or suspicious pulmonary nodules. 4. Cholelithiasis.
--- NOTE | ~2023-01-09 | XR_ITS ---
EXAMINATION: XR CHEST CLINICAL INFORMATION: Covid since 12/28/2022 with shortness of breath COMPARISON: CT chest 09/21/2020, chest radiograph 10/28/2019 TECHNIQUE: 2 views of the chest were obtained. FINDINGS: No significant abnormality is noted involving the heart, lungs, mediastinum, bony thorax or soft tissues. Mild degenerative changes are present at the AC joints. Vascular calcifications are seen in the aorta and axillary arteries. XR/XR chest 2V IMPRESSION: No acute intrathoracic disease.
[2023-01-09 17:31] VITALS: BP 178/48; PULSE 67; RESP 22; TEMP 36.6; O2SAT 92; BMI 40.4
--- NOTE | 2023-01-09 17:37 | ECG_ITS ---
Test Reason : COVID SYMPTOMS Blood Pressure : / mmHG Vent. Rate : 064 BPM Atrial Rate : 064 BPM P-R Int : 168 ms QRS Dur : 082 ms QT Int : 440 ms P-R-T Axes : 070 043 076 degrees QTc Int : 453 ms Normal sinus rhythm Nonspecific ST abnormality Abnormal ECG When compared with ECG of 20-SEP-2020 23:41, No significant change was found Referred By: Jerri Pacheco Electronically Signed By:CHRIS PINO
--- NOTE | 2023-01-09 17:38 | ED.SOB ---
HPI - SOB/Dyspnea General Chief Complaint: Upper Respiratory Symptoms <DUC Felipe - Last Filed: 01/09/23 17:40> Stated Complaint: covid/ sent by dr <DUC Felipe - Last Filed: 01/09/23 17:40> Time Seen by Provider: 01/09/23 18:47 <DUC Felipe - Last Filed: 01/09/23 17:40> Source: patient <DUC Hu - Last Filed: 01/09/23 19:52> Mode of arrival: ambulatory <DUC Hu - Last Filed: 01/09/23 19:52> Limitations: no limitations <DUC Hu - Last Filed: 01/09/23 19:52> History of Present Illness HPI Narrative: This is a 77-year-old female history of urge incontinence, orthostatic hypotension, diabetes, hyperlipidemia, coronary artery disease, known COVID positive since December 28, fully vaccinated with to vaccines into boosters presenting with shortness of breath, chest congestion, dry cough, fatigue, malaise, subjective fevers and chills, weakness since December 28. According to patient her was COVID positive in she also tested positive for COVID. She has been rapidly declining over the past few days. Significant shortness of breath with exertion. No chest pain however reports she feels like her chest is congested. Patient denies nausea, vomiting, abdominal pain, changes in urination or bowel habits. Upon history taking patient very winded and with increased work of breathing. <DUC Hu - Last Filed: 01/09/23 19:52> Related Data Home Medications: Home Medications Medication Instructions Recorded Confirmed atorvastatin 80 mg tablet 80 mg PO DAILY 12/08/20 11/07/22 ezetimibe 10 mg tablet 10 mg PO DAILY 12/08/20 11/07/22 fluoxetine 20 mg capsule 20 mg PO DAILY 12/08/20 11/07/22 losartan 100 mg tablet 100 mg PO DAILY 12/08/20 11/07/22 metformin 500 mg tablet 500 mg PO BID 12/08/20 11/07/22 metoprolol tartrate 25 mg tablet 25 mg PO BID 12/08/20 11/07/22 pen needle, diabetic 32 gauge x #50 ea 05/25/21 11/07/2232 albuterol sulfate 90 mcg/actuation 2 puff inhalation Q4-6H PRN 07/27/21 11/07/22 aerosol inhaler (ProAir HFA) Wheezing clopidogrel 75 mg tablet 75 mg PO DAILY 04/06/22 11/07/22 insulin glargine 100 unit/mL (3 24 unit subcut BEDTIME 07/07/22 11/07/22 mL) subcutaneous pen Previous Rx's Medication Instructions Recorded nitroglycerin 0.4 mg sublingual 0.4 mg sublingual Q5M PRN chest 03/10/22 tablet pain #20 tabs amlodipine 2.5 mg tablet 2.5 mg PO DAILY #90 tabs 06/27/22 Toviaz 8 mg tablet,extended 8 mg PO DAILY 90 days #90 tabs 11/07/22 release (fesoterodine) <DUC Felipe - Last Filed: 01/09/23 17:40> Allergies/Adverse Reactions: Allergies Allergy/AdvReac Type Severity Reaction Status Date / Time oxycodone [OXYCODONE] Allergy Mild ITCHING, Verified 01/09/23 17:31 itchy adhesive tape Allergy Unknown Verified 01/09/23 17:31 bee pollen [bee stings] Allergy Swelling Verified 01/09/23 17:31 hydromorphone [From DILAUDID] AdvReac Mild ITCHING Verified 01/09/23 17:31 <DUC Felipe - Last Filed: 01/09/23 17:40> Review of Systems Review of Systems: Constitutional : No Weight loss, + Fever, + Chills, + Fatigue, + Malaise ENT/Mouth : No sore throat, No Rhinorrhea Eyes: No Eye Pain, No Swelling, No Redness Cardiovascular : No Chest Pain, + SOB, + Dyspnea on Exertion, No Orthopnea, No Edema, No Palpitations Respiratory : + Cough, No Sputum, No Wheezing Gastrointestinal : No Nausea, No Vomiting, No Diarrhea, No Constipation, No abdominal Pain, No Hematochezia, No Melena Genitourinary : No Dysuria, No Urinary Frequency, No Hematuria, Musculoskeletal : No joint pain, No Myalgias, No Joint Swelling Skin : No Skin Lesions, No rash Neuro : + Weakness, No Numbness, No Dizziness, No Headache Psych : No Anxiety/Panic, No Depression All other systems reviewed and are negative <DUC Hu - Last Filed: 01/09/23 19:52> Yes all other systems are reviewed and are negative <DUC Hu - Last Filed: 01/09/23 19:52> [facility] Past Medical History Attestation statement: The following information was validated with the patient. <DUC Hu - Last Filed: 01/09/23 19:52> Source: old records reviewed and nursing notes reviewed <DUC Hu - Last Filed: 01/09/23 19:52> Medical History: Medical History Abnormal nuclear stress test CAD (coronary artery disease) Cataract Chest tightness CKD (chronic kidney disease) COPD (chronic obstructive pulmonary disease) Depression Diabetes Diabetic retinopathy Heart attack Hiatal hernia High cholesterol HLD (hyperlipidemia) Hypercholesterolemia Mild anemia NSTEMI (non-ST elevated myocardial infarction) Orthostatic hypotension HAYDEE on CPAP Osteoarthritis Overactive bladder Resting tremor Sleep apnea Stroke Syncope Unsteady gait Vertigo <DUC Felipe - Last Filed: 01/09/23 17:40> Surgical History: Surgical History History of cardiac catheterization History of cataract extraction Hx of colonoscopy Hx of vaginal hysterectomy Status post cardiac catheterization Stented coronary artery <DUC Felipe - Last Filed: 01/09/23 17:40> Family History Family History: Family History Father CVD (cardiovascular disease) Mother Brain aneurysm <DUC Felipe - Last Filed: 01/09/23 17:40> Social History Social History: Social History Are you a primary ocular care technician to a significant other at home: No Do you presently have visiting nurse or other home services: Yes (Meals on Wheels) Alcohol intake: never Patient Tobacco Use Status: Former Tobacco user Quit Date: 2014 Years Smoked: 50+/- Advance Directives: No Advance Directives Information Provided: Yes <DUC Felipe - Last Filed: 01/09/23 17:40> Physical Exam Vital Signs: Vital Signs: Last Vital Signs Temp 97.9 F 01/09/23 17:31 Pulse 67 01/09/23 17:31 Resp 22 H 01/09/23 17:31 BP 178/48 H 01/09/23 17:31 Pulse Ox 79 L 01/09/23 18:56 O2 Del Method 01/09/23 18:56 BMI result Body Mass Index 40.4 <DUC Felipe - Last Filed: 01/09/23 17:40> Vital Signs: Last Vital Signs Temp 97.9 F 01/09/23 17:31 Pulse 67 01/09/23 17:31 Resp 22 H 01/09/23 17:31 BP 178/48 H 01/09/23 17:31 Pulse Ox 79 L 01/09/23 18:56 O2 Del Method 01/09/23 18:56 BMI result Body Mass Index 40.4 Vital signs stable at rest however with ambulation patient desaturates to 79%. <DUC Hu - Last Filed: 01/09/23 19:52> Appearance: Alert.? Oriented X3.? Moderate respiratory distress with increased work of breathing Head: Normocephalic, atraumatic, no step-offs or deformities Eyes: Pupils equal, round and reactive to light.? ENT: Pharynx normal.? Neck: Normal inspection.? Neck supple.? CVS: Normal heart rate and rhythm.? Pulses normal.? Respiratory: Moderate respiratory distress.? Breath sounds diminished bilaterally with wheezing throughout..? Abdomen: Soft and nontender.? Skin: Skin warm and dry.? Normal skin color.? Normal skin turgor.? Extremities: No lower extremity edema.? No calf ttp. 5/5 strength to bilateral upper and lower extremities Neuro: Oriented X 3.? No motor deficit.? No sensory deficit. CN 2-12 intact <DUC Hu - Last Filed: 01/09/23 19:52> Course Course Course Narrative: RME - 77 yo female with history of morbid obesity, COPD/emphysema, CAD s/p stents, DM, HLD who presents to the ER for evaluation of worsening SOB and chest congestion since being diagnosed with COVID on 12/28. Fully vaccinated and boosted. SPO2 at home 88-89%. PCP told her to come in to r/o PNA. Has congested cough, decreased PO intake and dyspnea with minimal exertion. SpO2 92% in triage. Will check CXR, labs, EKG. <DUC Felipe - Last Filed: 01/09/23 17:40> Reevaluation(s) Reevaluation #1: Patient's CBC with no acute findings. Chemistry with no acute electrolyte abnormalities requiring intervention. BNP slightly elevated to 136, I do not have a previous to compare with, this could be secondary to viral infection. Patient COVID positive. Chest x-ray unremarkable. Dry CT ordered. At this time plan is hospital admission. Patient is requiring supplemental oxygen and is hypoxic with ambulation. <DUC Hu Last Filed: 01/09/23 19:52> Time: 19:51 <DUC Hu - Last Filed: 01/09/23 19:52> Medical Decision Making Medical Decision Making MDM Narrative: 77-year-old female presents with URI symptoms known COVID positive on December 28, worsening dyspnea on exertion over the past few days. Fully vaccinated. Physical exam with diminished breath sounds bilaterally. Wheezing throughout. Moderate work of breathing and respiratory distress. Patient hypoxic 79% with ambulation. Likely complication from COVID-19 or viral pneumonia. Unlikely PE, focal pneumonia. Plan at this labs, x-ray, viral testing. I suspect patient will require hospital admission <DUC Hu - Last Filed: 01/09/23 19:52> Differential Diagnosis Differential Diagnoses: The differential diagnosis associated with the presentation includes <DUC Hu Last Filed: 01/09/23 19:52> Likely complication from COVID-19 or viral pneumonia. Unlikely PE, focal pneumonia. <DUC uH Last Filed: 01/09/23 19:52> Admission/Observation Consideration of admission/observation: Escalation of care including admission/observation considered <DUC Hu Last Filed: 01/09/23 19:52> Will likely be required <DUC uH Last Filed: 01/09/23 19:52> Lab Data [facility] Lab Attestation statement: I reviewed the patient's lab results. <DUC Hu - Last Filed: 01/09/23 19:52> Result Diagrams: 01/09/23 18:10 01/09/23 18:10 <DUC Felipe - Last Filed: 01/09/23 17:40> Labs: Lab Results 01/09/23 01/09/23 01/09/23 Range/Units 18:10 18:10 18:10 WBC 9.0 (4.8-10.8) X10*3/uL RBC 4.10 L (4.20-5.50) X10*6/uL Hgb 12.5 (12.0-16.0) g/dl Hct 39.7 (37.0-47.0) % MCV 96.8 (80.0-98.0) fL MCH 30.5 (27.0-33.0) pg MCHC 31.5 (31.0-35.0) g/dl RDW 13.3 (11.0-16.0) % Plt Count 216 (160-400) X10*3/uL MPV 11.2 (9.4-12.3) fL Immature Gran % (Auto) 0.4 (0.0-0.4) % Neut % (Auto) 68.3 (45-73) % Lymph % (Auto) 22.8 (20-40) % Dickson % (Auto) 6.1 (2-11) % Eos % (Auto) 1.8 (0-4) % Baso % (Auto) 0.6 (0-2) % Lymph # (Auto) 2.1 (1.2-4.9) X10*3/uL Dickson # (Auto) 0.6 (0.1-1.2) X10*3/uL Eos # (Auto) 0.2 (0.0-0.4) X10*3/uL Baso # (Auto) 0.1 (0.0-0.2) X10*3/uL Abs Immat Gran (auto) 0.04 H (0.00-0.03) X10*3/uL Absolute Neuts (auto) 6.2 (2.0-8.3) x10*3/uL Absolute Nucleated RBC 0.000 (0.0-0.012) X10*3/uL Nucleated RBC % (auto) 0.0 (0.0-0.2) /100WBC Sodium 143 (135-145) mmol/L Potassium 4.0 (3.3-5.1) mmol/L Chloride 103 (96-108) mmol/L Carbon Dioxide 28 (22-29) mmol/L Anion Gap 16 (12-20) BUN 13 (9-16) mg/dL Creatinine 0.91 (0.5-1.4) mg/dL Estim Creat Clear Calc 50.8 Estimated GFR 60 Random Glucose 110 (60-115) mg/dL Calcium 9.1 D (8.4-10.2) mg/dL Magnesium 1.8 (1.6-2.6) mg/dL Total Bilirubin 1.0 (0.0-1.0) mg/dL Direct Bilirubin 0.3 (0.0-0.5) mg/dL AST 20 (5-31) U/L ALT 16 (0-31) U/L Alkaline Phosphatase 158 H (39-117) U/L B-Natriuretic Peptide 236 H (<100) pg/mL Total Protein 6.6 (6.5-8.0) g/dL Albumin 4.0 (3.5-5.0) g/dL COVID-19 (PINKY) (Negative) COVID-19 Clin Com 01/09/23 Range/Units 19:03 WBC (4.8-10.8) X10*3/uL RBC (4.20-5.50) X10*6/uL Hgb (12.0-16.0) g/dl Hct (37.0-47.0) % MCV (80.0-98.0) fL MCH (27.0-33.0) pg MCHC (31.0-35.0) g/dl RDW (11.0-16.0) % Plt Count (160-400) X10*3/uL MPV (9.4-12.3) fL Immature Gran % (Auto) (0.0-0.4) % Neut % (Auto) (45-73) % Lymph % (Auto) (20-40) % Dickson % (Auto) (2-11) % Eos % (Auto) (0-4) % Baso % (Auto) (0-2) % Lymph # (Auto) (1.2-4.9) X10*3/uL Dickson # (Auto) (0.1-1.2) X10*3/uL Eos # (Auto) (0.0-0.4) X10*3/uL Baso # (Auto) (0.0-0.2) X10*3/uL Abs Immat Gran (auto) (0.00-0.03) X10*3/uL Absolute Neuts (auto) (2.0-8.3) x10*3/uL Absolute Nucleated RBC (0.0-0.012) X10*3/uL Nucleated RBC % (auto) (0.0-0.2) /100WBC Sodium (135-145) mmol/L Potassium (3.3-5.1) mmol/L Chloride (96-108) mmol/L Carbon Dioxide (22-29) mmol/L Anion Gap (12-20) BUN (9-16) mg/dL Creatinine (0.5-1.4) mg/dL Estim Creat Clear Calc Estimated GFR Random Glucose (60-115) mg/dL Calcium (8.4-10.2) mg/dL Magnesium (1.6-2.6) mg/dL Total Bilirubin (0.0-1.0) mg/dL Direct Bilirubin (0.0-0.5) mg/dL AST (5-31) U/L ALT (0-31) U/L Alkaline Phosphatase (39-117) U/L B-Natriuretic Peptide (<100) pg/mL Total Protein (6.5-8.0) g/dL Albumin (3.5-5.0) g/dL COVID-19 (PINKY) Positive A (Negative) COVID-19 Clin Com See Note <DUC Felipe - Last Filed: 01/09/23 17:40> Lab Results 01/09/23 01/09/23 01/09/23 Range/Units 18:10 18:10 18:10 WBC 9.0 (4.8-10.8) X10*3/uL RBC 4.10 L (4.20-5.50) X10*6/uL Hgb 12.5 (12.0-16.0) g/dl Hct 39.7 (37.0-47.0) % MCV 96.8 (80.0-98.0) fL MCH 30.5 (27.0-33.0) pg MCHC 31.5 (31.0-35.0) g/dl RDW 13.3 (11.0-16.0) % Plt Count 216 (160-400) X10*3/uL MPV 11.2 (9.4-12.3) fL Immature Gran % (Auto) 0.4 (0.0-0.4) % Neut % (Auto) 68.3 (45-73) % Lymph % (Auto) 22.8 (20-40) % Dickson % (Auto) 6.1 (2-11) % Eos % (Auto) 1.8 (0-4) % Baso % (Auto) 0.6 (0-2) % Lymph # (Auto) 2.1 (1.2-4.9) X10*3/uL Dickson # (Auto) 0.6 (0.1-1.2) X10*3/uL Eos # (Auto) 0.2 (0.0-0.4) X10*3/uL Baso # (Auto) 0.1 (0.0-0.2) X10*3/uL Abs Immat Gran (auto) 0.04 H (0.00-0.03) X10*3/uL Absolute Neuts (auto) 6.2 (2.0-8.3) x10*3/uL Absolute Nucleated RBC 0.000 (0.0-0.012) X10*3/uL Nucleated RBC % (auto) 0.0 (0.0-0.2) /100WBC Sodium 143 (135-145) mmol/L Potassium 4.0 (3.3-5.1) mmol/L Chloride 103 (96-108) mmol/L Carbon Dioxide 28 (22-29) mmol/L Anion Gap 16 (12-20) BUN 13 (9-16) mg/dL Creatinine 0.91 (0.5-1.4) mg/dL Estim Creat Clear Calc 50.8 Estimated GFR 60 Random Glucose 110 (60-115) mg/dL Calcium 9.1 D (8.4-10.2) mg/dL Magnesium 1.8 (1.6-2.6) mg/dL Total Bilirubin 1.0 (0.0-1.0) mg/dL Direct Bilirubin 0.3 (0.0-0.5) mg/dL AST 20 (5-31) U/L ALT 16 (0-31) U/L Alkaline Phosphatase 158 H (39-117) U/L B-Natriuretic Peptide 236 H (<100) pg/mL Total Protein 6.6 (6.5-8.0) g/dL Albumin 4.0 (3.5-5.0) g/dL COVID-19 (PINKY) (Negative) COVID-19 Clin Com 01/09/23 Range/Units 19:03 WBC (4.8-10.8) X10*3/uL RBC (4.20-5.50) X10*6/uL Hgb (12.0-16.0) g/dl Hct (37.0-47.0) % MCV (80.0-98.0) fL MCH (27.0-33.0) pg MCHC (31.0-35.0) g/dl RDW (11.0-16.0) % Plt Count (160-400) X10*3/uL MPV (9.4-12.3) fL Immature Gran % (Auto) (0.0-0.4) % Neut % (Auto) (45-73) % Lymph % (Auto) (20-40) % Dickson % (Auto) (2-11) % Eos % (Auto) (0-4) % Baso % (Auto) (0-2) % Lymph # (Auto) (1.2-4.9) X10*3/uL Dickson # (Auto) (0.1-1.2) X10*3/uL Eos # (Auto) (0.0-0.4) X10*3/uL Baso # (Auto) (0.0-0.2) X10*3/uL Abs Immat Gran (auto) (0.00-0.03) X10*3/uL Absolute Neuts (auto) (2.0-8.3) x10*3/uL Absolute Nucleated RBC (0.0-0.012) X10*3/uL Nucleated RBC % (auto) (0.0-0.2) /100WBC Sodium (135-145) mmol/L Potassium (3.3-5.1) mmol/L Chloride (96-108) mmol/L Carbon Dioxide (22-29) mmol/L Anion Gap (12-20) BUN (9-16) mg/dL Creatinine (0.5-1.4) mg/dL Estim Creat Clear Calc Estimated GFR Random Glucose (60-115) mg/dL Calcium (8.4-10.2) mg/dL Magnesium (1.6-2.6) mg/dL Total Bilirubin (0.0-1.0) mg/dL Direct Bilirubin (0.0-0.5) mg/dL AST (5-31) U/L ALT (0-31) U/L Alkaline Phosphatase (39-117) U/L B-Natriuretic Peptide (<100) pg/mL Total Protein (6.5-8.0) g/dL Albumin (3.5-5.0) g/dL COVID-19 (PINKY) Positive A (Negative) COVID-19 Clin Com See Note <DUC Hu - Last Filed: 01/09/23 19:52> Independent Interpretation I performed an independent interpretation of an: Plain X-Ray <DUC Hu - Last Filed: 01/09/23 19:52> Radiology Impression Discussion of test interpretation with radiology: I have reviewed the radiologist's reading. <DUC Hu - Last Filed: 01/09/23 19:52> External Record Review External record reviewed: Inpatient record, Office record, Outpatient record, Prior outpatient labs, Prior outpatient radiology, Primary care record and Outside ED record <DUC Hu Last Filed: 01/09/23 19:52> Core Measures AMI core measures followed: Yes <DUC Hu Last Filed: 01/09/23 19:52> Measure exclusions: not indicated <DUC Hu Last Filed: 02/20/23 19:52> Critical Care Time Critical Care Time Critical Care Time: No <DUC Hu - Last Filed: 01/09/23 19:52> Discharge Plan Discharge Clinical Impression: COVID-19, Hypoxia, Wheezing <DUC Felipe - Last Filed: 01/09/23 17:40> Prescriptions: No Action nitroglycerin 0.4 mg tablet, sublingual 0.4 mg sublingual Q5M PRN (Reason: chest pain) Qty: 20 1RF Rx Instructions: do not exceed 3 doses per episode amlodipine 2.5 mg tablet 2.5 mg PO DAILY Qty: 90 3RF albuterol sulfate [ProAir HFA] 90 mcg/actuation Hfa Aerosol Inhaler 2 puff INHALATION Q4-6H PRN (Reason: Wheezing) fluoxetine 20 mg capsule 20 mg PO DAILY losartan 100 mg tablet 100 mg PO DAILY metformin 500 mg tablet 500 mg PO BID metoprolol tartrate 25 mg tablet 25 mg PO BID atorvastatin 80 mg tablet 80 mg PO DAILY ezetimibe 10 mg tablet 10 mg PO DAILY insulin glargine 100 unit/mL (3 mL) insulin pen 24 unit subcut BEDTIME (DME) pen needle, diabetic 32 gauge x 5/32 needle See Rx Instructions .ROUTE DAILY Qty: 50 Rx Instructions: As directed fesoterodine [Toviaz] 8 mg tablet extended release 24 hr 8 mg PO DAILY 90 Days Qty: 90 3RF clopidogrel 75 mg tablet 75 mg PO DAILY <DUC Felipe - Last Filed: 01/09/23 17:40>
--- OUTSIDE RECORDS SUMMARY | 2023-01-09 18:19 | XMS_ITS | Continuity of Care Document ---
:1945 Author Organization [facility] Adult Address [address] [place] [address]- Care Team Providers Name Role Phone Columba WATSON, Nahid Washington Primary Care Physician Encounter [facility] [place] Date(s): 08/28/20 - 09/04/20 [facility] Adult [address] [place] [address]- [place] Encounter Diagnosis SOB (shortness of breath) (Discharge Diagnosis) - 08/28/20 Attending Physician: Erika Lynn NP Referring Physician: Nahid Waterman MD Allergies, Adverse Reactions, Alerts Substance Reaction Severity Status Adhesive Bandage Active Bee Stings SWELLING AT SITE ONLY Active Percocet 5/325 Active Immunizations Given and Recorded Vaccine Date Status Refusal Reason influenza virus vaccine, inactivated 08/27/19 Recorded influenza virus vaccine, inactivated1 08/21/17 Recorded influenza virus vaccine, inactivated 09/09/16 Given influenza virus vaccine, inactivated2, 3 09/12/15 Recorde d influenza virus vaccine, inactivated 10/07/14 Given Zoster Vaccine Live 04/03/19 Recorded Zoster Vaccine Live4 07/21/17 Recorded pneumococcal 23-valent vaccine 03/22/16 Given tetanus/diphtheria/pertussis, acel(Tdap) 03/10/15 Given pneumococcal 13-valent vaccine 03/10/15 Given 1Result Comment: [10/19/2017] pt had done @ [facility] high [id number] History: [id number] Comment: [09/15/2015] HIGH [id number] Comment: [07/28/2017] AT [facility] [place] Medications amLODIPine 10 mg oral tablet 10 mg, 1, tablet, By Mouth, Daily, # 90 tablet, Refills 3, Tot. Refills 3, Maintenance, 03/02/20 14:18:00 EST, Route to Pharmacy Electronically, [facility], 149.86, cm, 01/20/20 13:55:00 EST, Height, 90.9, kg, 12/10/19 7:01:00 EST, Dry Weight Start Date: 01/20/20 Status: Orderedaspirin 81 mg oral tablet, chewable 81 mg, 1, tablet, By Mouth, Daily, # 30 tablet, Refills 1, Tot. Refills 1, Maintenance, 11/02/19 14:07:39 EST, Route to Pharmacy Electronically, [facility], 149.86, cm, 11/02/19 12:12:42 EST, Height, 90.2, kg, 10/29/19 15:57:27 EST, Dry Weight Start Date: 11/02/19 Stop Date: 01/01/20 Status: Orderedatorvastatin 80 mg oral tablet 1 tablet = 80 mg, By Mouth, Daily, # 90 tablet, 1 Refills, Maintenance, 04/20/20 9:42:00 EDT, Tablet, [facility], 149.86, cm, 01/20/20 13:55:00 EST, Height, 90.9, kg, 12/10/19 7:01:00 EST, Dry Weight Start Date: 04/20/20 Status: OrderedBasaglar KwikPen 100 units/mL subcutaneous solution = 30 units, Subcutaneous Infusion, Daily at bedtime, # 15 mL, 5 Refills, Maintenance, 02/18/20 9:59:00 EDT, [facility], 149.86, cm, 01/20/20 13:55:00 EST, Height, 90.9, kg, 12/10/19 7:01:00 EST, Dry Weight Start Date: 02/18/20 Status: OrderedCPAP Machine See Instructions, # 1 each, Maintenance, AutoCPAP 10-14 with a heated humidifier. Recommend orderinga machine with compliance data capabilities and following residual AHI. Dx: [employer], 10/11/17 8:51:14, Compound Start Date: 10/11/17 Status: OrderedCPAP Equipment See Instructions, # 1 each, Refills 11, Tot. Refills 11, Maintenance, Dx: HAY[employer], tubing, water chamber, filter, heated humidifier., 10/11/17 9:18:40, Compound Start Date: 10/11/17 Status: OrderedFlovent HFA 110 mcg/inh inhalation aerosol 2 puffs, Inhalation, 2 times a day, rinse mouth and throat after use, # 12 Gm, 6 Refills, Maintenance, 07/24/20 14:34:00 EDT, Aerosol, [facility], 149.86, cm, 07/24/20 14:16:00 EDT, Height, 90.9, kg, 12/10/19 7:01:00 EST, Dry Weight Start Date: 07/24/20 Status: OrderedFLUoxetine 20 mg oral capsule 20 mg, 1, capsule, By Mouth, Daily, # 90 capsule, Refills 1, Tot. Refills 1, Maintenance, 08/12/20 13:03:00 EDT, Route to Pharmacy Electronically, [facility], 149.86, cm, 07/24/20 14:16:00 EDT, Height, 90.9, kg, 12/10/19 7:01:00 EST, Dry We... Start Date: 08/12/20 Status: Orderedlosartan 100 mg oral tablet 1 tablet = 100 mg, By Mouth, Daily, # 90 tablet, 3 Refills, Maintenance, 02/10/20 14:08:00 EDT, Tablet, [facility], 149.86, cm, 01/20/20 13:55:00 EST, Height, 90.9, kg, 12/10/19 7:01:00 EST,Dry Weight Start Date: 02/10/20 Status: OrderedmetFORMIN 500 mg oral tablet 1 tablet = 500 mg, By Mouth, 2 times a day, # 180 tablet, 0 Refills, Maintenance, 08/12/20 13:03:00 EDT, Tablet, [facility], 149.86, cm, 07/24/20 14:16:00 EDT, Height, 90.9, kg, 12/10/19 7:01:00 EST, Dry Weight Start Date: 08/12/20 Status: Orderedmetoprolol 25 mg oral tablet 25 mg, 1, tablet, By Mouth, 2 times a day, # 180 tablet, Refills 0, Tot. Refills 0, Maintenance, 07/20/20 11:32:00 EDT, Route to Pharmacy Electronically, [facility], 149.86, cm, 06/23/20 10:59:00 EDT, Height, 90.9, kg, 12/10/19 7:01:00 EST,... Start Date: 07/20/20 Stop Date: 09/18/20 Status: Orderedoxybutynin 10 mg/24 hr oral tablet, extended release 1 tablet = 10 mg, By Mouth, Daily, # 30 tablet, 11 Refills, Maintenance, 03/19/20 16:20:00 EDT, ER Tablet, [facility], 149.86, cm, 01/20/20 13:55:00 EST, Height, 90.9, kg, 12/10/19 7:01:00 EST, Dry Weight Start Date: 03/19/20 Status: OrderedPEN NEEDLES [id number] PEN NEEDLES [id number], See Instructions, # 100 each, Refills 11, Tot. Refills 11, Maintenance, USE DIRECTED WITH INSULIN DAILY FAX [phone], 04/30/20 12:29:00 EDT, Compound, 149.86, cm, 01/20/20 13:55:00 EST, Height, 90.9, kg, 12/10/19 7:01:00 EST,... Start Date: 04/30/20 Status: OrderedPlavix 75 mg oral tablet 75 mg, 1, tablet, By Mouth, Daily, # 30 tablet, Refills 11, Tot. Refills 11, Maintenance, 03/19/20 16:21:00 EDT, Route to Pharmacy Electronically, [facility], 149.86, cm, 01/20/20 13:55:00 EST, Height, 90.9, kg, 12/10/19 7:01:00 EST, Dry We... Start Date: 03/19/20 Stop Date: 03/14/21 Status: OrderedPlenvu oral powder for reconstitution See Instructions, complete prep on day before procedure, # 1,000 mL, 0 Refills, Maintenance, 08/18/20 11:35:00 EDT, [facility], FYI-procedure will not be booked until November 2020, complete prep on day before procedure, 149.86, cm, 08/18/20... Start Date: 08/18/20 Status: OrderedProAir HFA 90 mcg/inh inhalation aerosol with adapter 2, puffs, Inhalation, Every 6 hours, PRN, # 8.5 Gm, Refills 1, Tot. Refills 1, Maintenance, 06/23/2011:27:00 EDT, Aerosol, Route to Pharmacy Electronically, [id number], [facility], 149.86, cm, 06/23/20 10:59:00 ED... Start Date: 06/23/20 Status: OrderedVentolin HFA 108 mcg/inh inhalation aerosol with adapter 2 puffs, Inhalation, Every 6 hours, # 1 each, 3 Refills, Maintenance, 06/23/20 16:10:00 [facility], 149.86, cm, 06/23/20 10:59:00 EDT, Height, 90.9, kg, 12/10/19 7:01:00 EST, Dry Weight Start Date: 06/23/20 Status: OrderedWheeled walker with seat Wheeled walker with seat, See Instructions, # 1 each, Refills 0, Tot. Refills 0, Maintenance, DX: Unsteady balance, 07/16/15 13:49:32, Compound Start Date: 07/16/15 Status: OrderedZetia 10 mg oral tablet 1 tablet = 10 mg, By Mouth, Daily, TO BE TAKEN IN ADDITION TO LIPITOR FAX [phone], # 90 tablet, 1 Refills, Maintenance, 03/24/20 10:29:00 EDT, Tablet, [facility], 149.86, cm, 01/20/20 13:55:00 EST, Height, 90.9, kg, 12/10/19 7:01:00 EST... Start Date: 03/24/20 Status: Ordered Problem List Condition Effective Dates Status Health Status Informant Non-ST elevation [place] Active (NSTEMI)(Confirmed) Mild anemia(Confirmed) Active Autonomic neuropathy(Confirmed) Active Benign cyst of breast(Confirmed)1 Active BMI 40.0-44.9, adult(Confirmed) Active Cataract(Confirmed) Active COPD (chronic obstructive pulmonary Active disease)(Confirmed) CKD (chronic kidney Active disease)(Confirmed) Closed fracture of left proximal Active humerus(Confirmed) Depression(Confirmed) Active Diabetic retinopathy(Confirmed) Active Diverticulosis(Confirmed)2 Active 2-vessel coronary artery Active disease(Confirmed) Gallstones(Confirmed)3 Active H/O vaginal hysterectomy(Confirmed) Active Internal and external hemorrhoids Active without complication(Confirmed)4 Hiatal hernia(Confirmed)5 Active History of cerebrovascular Active accident(Confirmed) History of colonoscopy(Confirmed)6 Active Hypercholesterolemia(Confirmed) Active Hypertension(Confirmed) Active Urinary frequency(Confirmed) Active Osteoarthritis(Confirmed)7 Active Resting tremor(Confirmed) Active Shoulder pain, right(Confirmed) Active Sleep apnea(Confirmed) Active Type 2 diabetes mellitus(Confirmed) Active Unsteady gait(Confirmed) Active Vertigo(Confirmed) Active 1Status post excision [id number] chest CT 2015.4colo 58221HCQ 48376pahp 42304Tikwgplrc Knees and Back Diagnosis Diagnosis Type Effective Dates Health Status Clinical In formant Service SOB (shortness Discharge 08/28/20 of breath) Diagnosis Vital Signs Most recent to oldest [Reference Range]: 1 Height 149.86 cm (08/28/20 9:59 AM) Social History Social History Type Response Smoking Status Former smoker; Tobacco user in household: No; Other: Quit this June 2015; entered on: 08/17/16 Sex
--- OUTSIDE RECORDS SUMMARY | 2023-01-09 18:19 | XMS_ITS | Continuity of Care Document ---
:1945 Author Organization [facility] Adult Address [address] [place] [address]- Care Team Providers Name Role Phone Nahid Waterman MD Primary Care Physician [place] [facility] [place] 08/04/21 [facility] [address] [place] [address]- Attending Physician: Erika Lynn NP Referring Physician: Nahid Waterman MD Allergies, Adverse Reactions, Alerts Substance Reaction Severity Status Adhesive Bandage Active Bee Stings SWELLING AT SITE ONLY Active Percocet Active Immunizations Given and Recorded Vaccine Date Status Refusal Reason SARS-CoV-2 (COVID-19) mRNA BNT-162b2 vac 01/19/21 Recorde d SARS-CoV-2 (COVID-19) mRNA BNT-162b2 vac 12/28/20 Recorde d influenza virus vaccine, inactivated 10/01/20 Given influenza virus vaccine, inactivated 08/27/19 Recorded influenza virus vaccine, inactivated1 08/21/17 Recorded influenza virus vaccine, inactivated 09/09/16 Given influenza virus vaccine, inactivated2, 3 09/12/15 Recorde d influenza virus vaccine, inactivated 10/07/14 Given Zoster Vaccine Live 04/03/19 Recorded Zoster Vaccine Live4 07/21/17 Recorded pneumococcal 23-valent vaccine 03/22/16 Given tetanus/diphtheria/pertussis, acel(Tdap) 03/10/15 Given pneumococcal 13-valent vaccine 03/10/15 Given tetanus-diphtheria toxoids (Td) 05/12/12 Recorded 1Result Comment: [10/19/2017] pt had done @ [facility] high [id number] History: [id number] Comment: [09/15/2015] HIGH [id number] Comment: [07/28/2017] AT [facility] amLODIPine 2.5 mg oral tablet 2.5 mg, 1, tablet, By Mouth, Daily, # 90 tablet, Refills 1, Tot. Refills 1, Maintenance, 07/20/21 9:21:00 EDT, Route to Pharmacy Electronically, [facility], Partial fill upon patient requestif the prescription is for a schedule II opioid d... Start Date: 07/20/21 Status: Orderedaspirin 81 mg oral tablet, chewable 81 mg, 1, tablet, By Mouth, Daily, # 30 tablet, Refills 1, Tot. Refills 1, Maintenance, 11/02/19 14:07:39 EST, Route to Pharmacy Electronically, [facility], 149.86, cm, 11/02/19 12:12:42 EST, Height, 90.2, kg, 10/29/19 15:57:27 EST, Dry Weight Start Date: 11/02/19 Stop Date: 01/01/20 Status: Orderedatorvastatin 80 mg oral tablet 1 tablet = 80 mg, By Mouth, Daily, # 90 tablet, 1 Refills, Maintenance, 07/20/21 9:21:00 EDT, Tablet, [facility], 150, cm, 07/20/21 9:00:00 EDT, Height, 91, kg, 04/19/21 14:09:00 EDT, Dry Weight Start Date: 07/20/21 Status: OrderedBasaglar KwikPen 100 units/mL subcutaneous solution = 30 units, Subcutaneous Infusion, Daily at bedtime, # 15 mL, 5 Refills, Maintenance, 07/20/21 9:21:00 EDT, [facility], 150, cm, 07/20/21 9:00:00 EDT, Height, 91, kg, 04/19/21 14:09:00 EDT, Dry Weight Start Date: 07/20/21 Stop Date: 01/16/22 Status: OrderedCPAP Machine See Instructions, # 1 [...] 10/11/17 9:18:40, Compound Start Date: 10/11/17 Status: OrderedFLUoxetine 20 mg oral capsule 20 mg, 1, capsule, By Mouth, Daily, # 90 capsule, Refills 1, Tot. Refills 1, Maintenance, 07/20/21 9:21:00 EDT, Route to Pharmacy Electronically, [facility], 150, cm, 07/20/21 9:00:00 EDT, Height, 91, kg, 04/19/21 14:09:00 EDT, Dry Weight Start Date: 07/20/21 Status: Orderedlosartan 100 mg oral tablet 1 tablet, By Mouth, Daily, # 90 tablet, 1 Refills, Maintenance, 07/20/21 9:21:00 EDT, [facility], 150, cm, 07/20/21 9:00:00 EDT, Height, 91, kg, 04/19/21 14:09:00 EDT, Dry Weight Start Date: 07/20/21 Status: OrderedmetFORMIN 500 mg oral tablet 1 tablet = 500 mg, By Mouth, 2 times a day, # 180 tablet, 0 Refills, Maintenance, 07/20/21 9:21:00 EDT, Tablet, [facility], 150, cm, 07/20/21 9:00:00 EDT, Height, 91, kg, 04/19/21 14:09:00 EDT, Dry Weight Start Date: 07/20/21 Status: Orderedmetoprolol 25 mg oral tablet 25 mg, 1, tablet, By Mouth, 2 times a day, # 180 tablet, Refills 3, Tot. Refills 3, Maintenance, 07/20/21 9:21:00 EDT, Route to Pharmacy Electronically, [facility], 150, cm, 07/20/21 9:00:00EDT, Height, 91, kg, 04/19/21 14:09:00 EDT, Dry W... Start Date: 07/20/21 Status: Orderednebulizer nebulizer, See Instructions, # 1 each, Refills 0, Tot. Refills 0, Maintenance, please use up to 4 times daily, do not use with inhaler Dx COPD, 10/13/20 11:10:00 EST, Supply Start Date: 10/13/20 Status: OrderedNebulizer/Compressor See Instructions, # 1 each, Maintenance, Use up to 4x daily NEEDED - do not use in combination with inhaler, 10/12/20 13:19:00 EST, Supply Start Date: 10/12/20 Status: OrderedPEN NEEDLES [id number] PEN NEEDLES [id number], See Instructions, # 100 each, Refills 3, Tot. Refills 3, Maintenance, USE DIRECTED WITH INSULIN DAILY FAX [phone], 07/01/21 13:25:00 EDT, Compound, 150, cm, 06/15/21 14:56:00 EDT, Height, 91, kg, 04/19/21 14:09:00 EDT, Dry We... Start Date: 07/01/21 Status: OrderedProAir HFA 90 mcg/inh inhalation aerosol with adapter 2, puffs, Inhalation, Every 6 hours, PRN, # 8.5 Gm, Refills 1, Tot. Refills 1, Maintenance, 06/23/2011:27:00 EDT, Aerosol, Route to Pharmacy Electronically, [id number], [facility], 149.86, cm, 06/23/20 10:59:00 ED... Start Date: 06/23/20 Status: Orderedtrospium 60 mg oral capsule, extended release 1 capsule = 60 mg, By Mouth, Daily in AM, # 30 capsule, 0 Refills, Maintenance, 06/15/21 15:25:00 EDT, CR Capsule, Partial fill upon patient request if the prescription is for a schedule II opioid drug. Start Date: 06/15/21 Status: OrderedWheeled walker with seat Wheeled walker with seat, See Instructions, # 1 each, Refills 0, Tot. Refills 0, Maintenance, DX: Unsteady balance, 07/16/15 13:49:32, Compound Start Date: 07/16/15 Status: OrderedZetia 10 mg oral tablet 1 tablet = 10 mg, By Mouth, Daily, TO BE TAKEN IN ADDITION TO LIPITOR FAX [phone], # 90 tablet, 1 Refills, Maintenance, 07/20/21 9:21:00 EDT, Tablet, [facility], 150, cm, 07/20/21 9:00:00 EDT, Height, 91, kg, 04/19/21 14:09:00 EDT, Dry... Start Date: 07/20/21 Status: Ordered Problem List Condition Effective Dates Status Health Status Informant Non-ST elevation [place] Active (NSTEMI)(Confirmed) Mild anemia(Confirmed) Active Autonomic neuropathy(Confirmed) Active Benign cyst of breast(Confirmed)1 Active Cataracts, bilateral(Confirmed) Active BMI 40.0-44.9, adult(Confirmed) Active Cataract(Confirmed) Active COPD (chronic obstructive pulmonary Active disease)(Confirmed) CKD (chronic kidney Active disease)(Confirmed) Closed fracture of left proximal Active humerus(Confirmed) Diabetic retinopathy(Confirmed) Active Diverticulosis(Confirmed)2 Active 2-vessel coronary artery Active disease(Confirmed) Gallstones(Confirmed)3 Active H/O vaginal hysterectomy(Confirmed) Active Internal and external hemorrhoids Active without complication(Confirmed)4 Hiatal hernia(Confirmed)5 Active History of cerebrovascular Active accident(Confirmed) History of colonoscopy(Confirmed)6 Active Hypercholesterolemia(Confirmed) Active Hypertension(Confirmed) Active Urinary frequency(Confirmed) Active Depression, major, in Active remission(Confirmed) Osteoarthritis(Confirmed)7 Active Resting tremor(Confirmed) Active Shoulder pain, right(Confirmed) Active Sleep apnea(Confirmed) Active Type 2 diabetes mellitus(Confirmed) Active Unsteady gait(Confirmed) Active Vertigo(Confirmed) Active 1Status post excision [id number] 95274Gm chest CT 2014.4colo 05812RGY 35953bdvf 87568Ckqjcgbct Knees and Back Social History Social History Type Response Smoking Status Former smoker; Tobacco user in household: No; Other: Quit this June 2015; entered on: 08/17/16 Sex
--- OUTSIDE RECORDS SUMMARY | 2023-01-09 18:19 | XMS_ITS | Continuity of Care Document ---
:1945 Author Organization [facility] Adult Address [address] [place] [address]- Care Team Providers Name Role Phone Nahid Waterman MD Primary Care Physician Encounter [facility] Date(s): 11/08/19 - 11/15/19 [facility] Adult [address] [place] [address]- [facility] Attending Physician: Nahid Waterman MD Allergies, Adverse Reactions, Alerts Substance Reaction Severity Status Adhesive Bandage Active Bee Stings SWELLING AT SITE ONLY Active Immunizations Given and Recorded Vaccine Date [...] 1Result Comment: [10/19/2017] pt had done @ [facility] high [id number] History: [id number] Comment: [09/15/2015] HIGH [id number] Comment: [07/28/2017] AT [facility] Medications aspirin 81 mg oral tablet, chewable 81 mg, 1, tablet, By Mouth, Daily, # 30 tablet, Refills 1, Tot. Refills 1, Maintenance, 11/02/19 14:07:39 EST, Route to Pharmacy Electronically, [facility], 149.86, cm, 11/02/19 12:12:42 EST, Height, 90.2, kg, 10/29/19 15:57:27 EST, Dry Weight Start Date: 11/02/19 Stop Date: 01/01/20 Status: Orderedatorvastatin 80 mg oral tablet 1 tablet = 80 mg, By Mouth, Daily, # 90 tablet, 1 Refills, Maintenance, 11/04/19 10:48:01 EST, Tablet, [facility], 149.86, cm, 11/02/19 12:12:42 EST, Height, 90.2, kg, 10/29/19 15:57:27 EST,Dry Weight Start Date: 11/04/19 Status: OrderedBasaglar KwikPen 100 units/mL subcutaneous solution = 30 units, Subcutaneous Infusion, Daily at bedtime, # 15 mL, 11 Refills, Maintenance, 01/02/19 10:27:03 EST, [facility] Start Date: 01/02/19 Status: OrderedCentrum Silver By Mouth, Daily, 0 Refills, Maintenance, 07/14/17 11:13:21 Start Date: 07/14/17 Status: OrderedColace sodium 100 mg oral capsule 100 mg, 1, capsule, By Mouth, 2 times a day, Refills 0, Maintenance, 11/02/19 14:08:00 EST Start Date: 11/02/19 Status: OrderedCPAP Machine See Instructions, # 1 [...] capsule, Refills 1, Tot. Refills 1, Maintenance, 04/29/19 13:41:56 EDT, Route to Pharmacy Electronically, [id number], [id number] Start Date: 04/29/19 Status: Orderedlosartan 100 mg oral tablet 1 tablet = 100 mg, By Mouth, Daily, please ask for additional refills at ov, # 90 tablet, 3 Refills,Maintenance, 01/02/19 10:27:02 EST, Tablet Start Date: 01/02/19 Status: OrderedmetFORMIN 500 mg oral tablet 1 tablet = 500 mg, By Mouth, 2 times a day, # 180 tablet, 3 Refills, Maintenance, 01/02/19 10:27:04 EST, Tablet Start Date: 01/02/19 Status: Orderedmetoprolol 25 mg oral tablet 25 mg, 1, tablet, By Mouth, 2 times a day, # 60 tablet, Refills 1, Tot. Refills 1, Maintenance, 11/02/19 14:08:05 EST, Route to Pharmacy Electronically, [facility], 149.86, cm, 11/02/19 12:12:42 EST, Height, 90.2, kg, 10/29/19 15:57:27 EST,... Start Date: 11/02/19 Stop Date: 01/01/20 Status: Orderedoxybutynin 10 mg/24 hr oral tablet, extended release 1 tablet = 10 mg, By Mouth, Daily, 0 Refills, Maintenance, 11/02/19 14:08:12 EST, ER Tablet Start Date: 11/02/19 Status: OrderedPEN NEEDLES [id number] PEN NEEDLES 41UH1AG, See Instructions, # 100 each, Refills 0, Tot. Refills 0, Maintenance, USE DIRECTED WITH INSULIN DAILY FAX [phone], 11/03/19 18:38:58 EST, Compound, 149.86, cm, 11/02/19 12:12:42 EST, Height, 90.2, kg, 10/29/19 15:57:27 EST, D... Start Date: 11/03/19 Status: OrderedPlavix 75 mg oral tablet 75 mg, 1, tablet, By Mouth, Daily, Stop Aggrenox, # 30 tablet, Refills 1, Tot. Refills 1, Maintenance, 11/02/19 14:07:49 EST, Route to Pharmacy Electronically, [facility], 149.86, cm, 11/02/19 12:12:42 EST, Height, 90.2, kg, 10/29/19 15:57:... Start Date: 11/02/19 Stop Date: 01/01/20 Status: OrderedPT eval and treat PT eval and treat, See Instructions, # 1 application, Refills 0, Tot. Refills 0, Maintenance, PT eval and treat, 03/30/18 10:26:50 EDT, Compound Start Date: 03/30/18 Status: OrderedWheeled walker with seat Wheeled walker with seat, See Instructions, # 1 each, Refills 0, Tot. Refills 0, Maintenance, DX: Unsteady balance, 07/16/15 13:49:32, Compound Start Date: 07/16/15 Status: OrderedZetia 10 mg oral tablet 1 tablet = 10 mg, By Mouth, Daily, TO BE TAKEN IN ADDITION TO LIPITOR FAX [phone], # 90 tablet, 1 Refills, Maintenance, 09/13/19 16:32:06 EDT, Tablet Start Date: 09/13/19 Status: Ordered Problem List Condition Effective Dates Status Health Status Informant Non-ST elevation [place] Active (NSTEMI)(Confirmed) Mild anemia(Confirmed) Active Autonomic neuropathy(Confirmed) [...] Hypertension(Confirmed) Active Urinary frequency(Confirmed) Active Osteoarthritis(Confirmed)7 Active Shoulder pain, right(Confirmed) Active Sleep apnea(Confirmed) Active Type 2 diabetes mellitus(Confirmed) Active Unsteady gait(Confirmed) Active Vertigo(Confirmed) Active 1Status post excision [id number] 17138Yh chest CT 2014.4colo 09320KWD 59897nnto 72518Rsyburuxw Knees and Back Vital Signs Most recent to oldest [Reference Range]: 1 Height 149.86 cm (11/08/19 3:46 PM) Weight 92.4 kg (11/08/19 3:46 PM) Oxygen Saturation [94-100 %] 98 % (11/08/19 3:46 PM) Pulse Rate [55-90 bpm] 64 bpm (11/08/19 3:46 PM) Body Mass Index [18.5-24.99] 41.14 *>HHI* (11/08/19 3:46 PM) Blood Pressure [90-138/55-84 mm Hg] 150/43 mm Hg *H* (11/08/19 3:46 PM) Mode of Delivery (Oxygen) Room air (11/08/19 3:46 PM) Weight Obtained Via Standing scale (11/08/19 3:46 PM) Social History Social History Type Response Smoking Status Former smoker; Tobacco user in household: No; Other: Quit this June 2015; entered on: 08/17/16 Sex
--- OUTSIDE RECORDS SUMMARY | 2023-01-09 18:19 | XMS_ITS | Continuity of Care Document ---
:1945 Author Organization [facility] Adult Address [address] [place] [address]- Care Team Providers Name Role Phone Columba WATSON, Nahid Washington Primary Care Physician [facility] Date[facility]s): 04/22/21 - 06/03/21 [facility] [address] [place] [address]- Attending Physician: Not on Staff, Attending MD Allergies, Adverse Reactions, Alerts Substance Reaction [...] 1Result Comment: [10/19/2017] pt had done @ [facility] [id number] History: [id number] Comment: [09/15/2015] HIGH [id number] Comment: [07/28/2017] AT [facility] ED amLODIPine 5 mg oral tablet 5 mg, 1, tablet, By Mouth, Daily, # 90 tablet, Refills 1, Tot. Refills 1, Maintenance, 12/31/20 13:23:00 EST, Route to Pharmacy Electronically, [facility], Partial fill upon patient request if the prescription is for a schedule II opioid . Start Date: 12/31/20 Status: Orderedaspirin 81 mg oral tablet, chewable 81 mg, 1, tablet, By Mouth, Daily, # 30 tablet, Refills 1, Tot. Refills 1, Maintenance, 11/02/19 14:07:39 EST, Route to Pharmacy Electronically, [facility], 149.86, cm, 11/02/19 12:12:42 EST, Height, 90.2, kg, 10/29/19 15:57:27 EST, Dry Weight Start Date: 11/02/19 Stop Date: 01/01/20 Status: Orderedatorvastatin 80 mg oral tablet 1 tablet = 80 mg, By Mouth, Daily, # 90 tablet, 1 Refills, Maintenance, 04/26/21 9:55:00 EDT, Tablet, [facility], 150, cm, 04/21/21 15:26:00 EDT, Height, 91, kg, 04/19/21 14:09:00 EDT, Dry Weight Start Date: 04/26/21 Status: OrderedBasaglar KwikPen 100 units/mL subcutaneous solution = 30 units, Subcutaneous Infusion, Daily at bedtime, # 15 mL, 5 Refills, Maintenance, 03/09/21 13:30:00 EDT, [facility], 150, cm, 12/31/20 12:51:00 EST, Height, 90.9, kg, 10/09/20 4:37:00 EST, Dry Weight Start Date: 03/09/21 Stop Date: 09/05/21 Status: OrderedCPAP Machine See Instructions, # 1 [...] capsule, Refills 1, Tot. Refills 1, Maintenance, 01/30/21 14:39:00 EST, Route to Pharmacy Electronically, [facility], 150, cm, 12/31/20 12:51:00 EST,Height, 90.9, kg, 10/09/20 4:37:00 EST, Dry Weight Start Date: 01/30/21 Status: Orderedlosartan 100 mg oral tablet 1 tablet, By Mouth, Daily, # 90 tablet, 1 Refills, Maintenance, 05/18/21 10:58:00 EDT, [facility], 150, cm, 04/21/21 15:26:00 EDT, Height, 91, kg, 04/19/21 14:09:00 EDT, Dry Weight Start Date: 05/18/21 Status: OrderedmetFORMIN 500 mg oral tablet 1 tablet = 500 mg, By Mouth, 2 times a day, # 180 tablet, 0 Refills, Maintenance, 03/19/21 15:48:00 EDT, Tablet, [facility], 150, cm, 12/31/20 12:51:00 EST, Height, 90.9, kg, 10/09/20 4:37:00 EST, Dry Weight Start Date: 03/19/21 Status: Orderedmetoprolol 25 mg oral tablet 25 mg, 1, tablet, By Mouth, 2 times a day, # 180 tablet, Refills 3, Tot. Refills 3, Maintenance, 04/22/21 12:59:00 EDT, Route to Pharmacy Electronically, [facility], 150, cm, 04/21/21 15:26:00 EDT, Height, 91, kg, 04/19/21 14:09:00 EDT, Dry... Start Date: 04/22/21 Status: Orderednebulizer nebulizer, See Instructions, # 1 [...] Supply Start Date: 10/12/20 Status: OrderedPEN NEEDLES [id number] PEN NEEDLES [id number], See Instructions, # 100 each, Refills 11, Tot. Refills 11, Maintenance, USE DIRECTED WITH INSULIN DAILY FAX [phone], 03/19/21 15:48:00 EDT, Compound, 150, cm, 12/31/20 12:51:00EST, Height, 90.9, kg, 10/09/20 4:37:00 EST, Dry... Start Date: 03/19/21 Status: OrderedPlavix 75 mg oral tablet 75 mg, 1, tablet, By Mouth, Daily, # 30 tablet, Refills 11, Tot. Refills 11, Maintenance, 03/22/21 12:29:00 EDT, Route to Pharmacy Electronically, [facility], 150, cm, 12/31/20 12:51:00 EST,Height, 90.9, kg, 10/09/20 4:37:00 EST, Dry Weight Start Date: 03/22/21 Stop Date: 03/17/22 Status: OrderedProAir HFA 90 mcg/inh inhalation aerosol with adapter 2, puffs, Inhalation, Every 6 hours, PRN, # 8.5 Gm, Refills 1, Tot. Refills 1, Maintenance, 06/23/2011:27:00 EDT, Aerosol, Route to Pharmacy Electronically, [id number], [facility], 149.86, cm, 06/23/20 10:59:00 ED... Start Date: 06/23/20 Status: OrderedWheeled walker with seat Wheeled walker with seat, See Instructions, # 1 each, Refills 0, Tot. Refills 0, Maintenance, DX: Unsteady balance, 07/16/15 13:49:32, Compound Start Date: 07/16/15 Status: OrderedZetia 10 mg oral tablet 1 tablet = 10 mg, By Mouth, Daily, TO BE TAKEN IN ADDITION TO LIPITOR FAX [phone], # 90 tablet, 0 Refills, Maintenance, 03/19/21 15:48:00 EDT, Tablet, [facility], 150, cm, 12/31/20 12:51:00EST, Height, 90.9, kg, 10/09/20 4:37:00 EST, D... Start Date: 03/19/21 Status: Ordered Problem List Condition Effective Dates Status Health Status Informant Non-ST elevation NE Active (NSTEMI)(Confirmed) Mild anemia(Confirmed) Active Autonomic neuropathy(Confirmed) [...] gait(Confirmed) Active Vertigo(Confirmed) Active 1Status post excision [id number] chest CT 2014.4colo [id number] [id number] Knees and Back Social History Social History Type Response Smoking Status Former smoker; Tobacco user in household: No; Other: Quit this June 2015; entered on: 08/17/16 Sex
--- OUTSIDE RECORDS SUMMARY | 2023-01-09 18:19 | XMS_ITS | Continuity of Care Document ---
:1945 Author Organization [facility] Adult Address [address] [place] [address]- Care Team Providers Name Role Phone Columba WATSON, Nahid Washington Primary Care Physician [facility] Date[facility]s): 07/24[facility]20 - 07/31/20 [facility] [address] [place] [address]- [facility] Attending Physician: Erika Lynn NP Referring Physician: [...] 1Result Comment: [10/19/2017] pt had done @ [facility] [id number] History: [id number] Comment: [09/15/2015] HIGH [id number] Comment: [07/28/2017] [facility] Medications amLODIPine 10 mg oral tablet 10 mg, 1, tablet, By Mouth, Daily, # 90 tablet, Refills 3, Tot. Refills 3, Maintenance, 01/20/20 14:18:00 EST, Route to Pharmacy Electronically, [facility], 149.86, cm, 01/20/20 13:55:00 EST, Height, 90.9, kg, 12/10/19 7:01:00 EST, Dry Weight Start Date: 01/20/20 Status: Orderedaspirin 81 mg oral tablet, chewable 81 mg, 1, tablet, By Mouth, Daily, # 30 tablet, Refills 1, Tot. Refills 1, Maintenance, 11/02/19 14:07:39 EST, Route to Pharmacy Electronically, [facility], 149.86, cm, 11/02/19 12:12:42 EST, Height, 90.2, kg, 10/29/19 15:57:27 EST, Dry Weight Start Date: 11/02/19 Stop Date: 01/01/20 Status: Orderedatorvastatin 80 mg oral tablet 1 tablet = 80 mg, By Mouth, Daily, # 90 tablet, 1 Refills, Maintenance, 04/20/20 9:42:00 EDT, Tablet, [facility], 149.86, cm, 01/20/20 13:55:00 EST, Height, 90.9, kg, 12/10/19 7:01:00 EST, Dry Weight Start Date: 04/20/20 Status: OrderedBasaglar KwikPen 100 units/mL subcutaneous solution = 30 units, Subcutaneous Infusion, Daily at bedtime, # 15 mL, 5 Refills, Maintenance, 02/18/20 9:59:00 EDT, [facility], 149.86, cm, 01/20/20 13:55:00 EST, [...] 6 Refills, Maintenance, 07/24/20 14:34:00 EDT, Aerosol, [facility], 149.86, cm, 07/24/20 14:16:00 EDT, Height, 90.9, kg, 12/10/19 7:01:00 EST, Dry Weight Start Date: 07/24/20 Status: OrderedFLUoxetine 20 mg oral capsule 20 mg, 1, capsule, By Mouth, Daily, # 90 capsule, Refills 1, Tot. Refills 1, Maintenance, 02/10/20 11:51:00 EDT, Route to Pharmacy Electronically, [facility], 149.86, cm, 01/20/20 13:55:00 EST, Height, 90.9, kg, 12/10/19 7:01:00 EST, Dry We... Start Date: 02/10/20 Status: Orderedlosartan 100 mg oral tablet 1 tablet = 100 mg, By Mouth, Daily, # 90 tablet, 3 Refills, Maintenance, 02/10/20 14:08:00 EDT, Tablet, [facility], 149.86, cm, 01/20/20 13:55:00 EST, Height, 90.9, kg, 12/10/19 7:01:00 EST,Dry Weight Start Date: 02/10/20 Status: OrderedmetFORMIN 500 mg oral tablet 1 tablet = 500 mg, By Mouth, 2 times a day, # 180 tablet, 0 Refills, Maintenance, 04/30/20 13:48:00 EDT, Tablet, [facility], 149.86, cm, 01/20/20 13:55:00 EST, Height, 90.9, kg, 12/10/19 7:01:00 EST, Dry Weight Start Date: 04/30/20 Status: Orderedmetoprolol 25 mg oral tablet 25 mg, 1, tablet, By Mouth, 2 times a day, # 180 tablet, Refills 0, Tot. Refills 0, Maintenance, 07/20/20 11:32:00 EDT, Route to Pharmacy Electronically, [facility], 149.86, cm, 06/23/20 10:59:00 EDT, Height, 90.9, kg, 12/10/19 7:01:00 EST,... Start Date: 07/20/20 Stop Date: 09/18/20 Status: Orderedoxybutynin 10 mg/24 hr oral tablet, extended release 1 tablet = 10 mg, By Mouth, Daily, # 30 tablet, 11 Refills, Maintenance, 03/19/20 16:20:00 EDT, ER Tablet, [facility], 149.86, cm, 01/20/20 13:55:00 EST, Height, 90.9, kg, 12/10/19 7:01:00 EST, Dry Weight Start Date: 03/19/20 Status: OrderedPEN NEEDLES [id number] PEN NEEDLES [id number], See Instructions, # 100 each, Refills 11, Tot. Refills 11, Maintenance, USE DIRECTED WITH INSULIN DAILY FAX [phone], 04/30/20 12:29:00 EDT, Compound, 149.86, cm, 01/20/20 13:55:00 EST, Height, 90.9, kg, 12/10/19 7:01:00 EST,... Start Date: 04/30/20 Status: OrderedPlavix 75 mg oral tablet 75 mg, 1, tablet, By Mouth, Daily, # 30 tablet, Refills 11, Tot. Refills 11, Maintenance, 03/19/20 16:21:00 EDT, Route to Pharmacy Electronically, [facility], 149.86, cm, 01/20/20 13:55:00 EST, Height, 90.9, kg, 12/10/19 7:01:00 EST, Dry We... Start Date: 03/19/20 Stop Date: 03/14/21 Status: OrderedProAir HFA 90 mcg/inh inhalation aerosol with adapter 2, puffs, Inhalation, Every 6 hours, PRN, # 8.5 Gm, Refills 1, Tot. Refills 1, Maintenance, 06/23/2011:27:00 EDT, Aerosol, Route to Pharmacy Electronically, [id number], [facility], 149.86, cm, 06/23/20 10:59:00 ED... Start Date: 06/23/20 Status: OrderedVentolin HFA 108 mcg/inh inhalation aerosol with adapter 2 puffs, Inhalation, Every 6 hours, # 1 each, 3 Refills, Maintenance, 06/23/20 16:10:00 [facility], 149.86, cm, 06/23/20 10:59:00 EDT, [...] BE TAKEN IN ADDITION TO LIPITOR FAX [phone], # 90 tablet, 1 Refills, Maintenance, 03/24/20 10:29:00 EDT, Tablet, [facility], 149.86, cm, 01/20/20 13:55:00 EST, Height, 90.9, kg, 12/10/19 7:01:00 EST... Start Date: 03/24/20 Status: Ordered Problem List Condition Effective Dates Status Health Status Informant Non-ST elevation [place] Active (NSTEMI)(Confirmed) Mild anemia(Confirmed) Active Autonomic neuropathy(Confirmed) [...] gait(Confirmed) Active Vertigo(Confirmed) Active 1Status post excision [id number] chest CT 2014.4colo 01999IPA 73163qoiv 06422Rzvolnvpb Knees and Back Vital Signs Most recent to oldest [Reference Range]: 1 Height 149.86 cm (07/24/20 2:16 PM) Social History Social History Type Response Smoking Status Former smoker; Tobacco user in household: No; Other: Quit this June 2015; entered on: 08/17/16 Sex
[2023-01-09 18:23] LABS: MANUAL DIFF FLAG NO
[2023-01-09 18:32] LABS: Basophils Absolute Auto 0.1 X10*3/uL (0.0-0.2); Basophils Percent Auto 0.6 % (0-2); Eosinophils Absolute Auto 0.2 X10*3/uL (0.0-0.4); Eosinophils Percent Auto 1.8 % (0-4); Hematocrit 39.7 % (37.0-47.0); Hemoglobin 12.5 g/dl (12.0-16.0); Imm Gran Abs Auto 0.04 X10*3/uL (0.00-0.03); Imm Gran Pct Auto 0.4 % (0.0-0.4); Lymphocytes Absolute Auto 2.1 X10*3/uL (1.2-4.9); Lymphocytes Percent Auto 22.8 % (20-40); Mean Corpuscular HGB Conc 31.5 g/dl (31.0-35.0); Mean Corpuscular Hemoglobin 30.5 pg (27.0-33.0); Mean Corpuscular Volume 96.8 fL (80.0-98.0); Mean Platelet Volume 11.2 fL (9.4-12.3); Monocytes Absolute Auto 0.6 X10*3/uL (0.1-1.2); Monocytes Percent Auto 6.1 % (2-11); Neutrophils Absolute Auto 6.2 x10*3/uL (2.0-8.3); Neutrophils Percent Auto 68.3 % (45-73); Platelet Count 216 X10*3/uL (160-400); Red Cell Distribution Width 13.3 % (11.0-16.0)
[2023-01-09 18:41] LABS: Alanine Aminotransferase 16 U/L (0-31); Alkaline Phosphatase 158 U/L (39-117); Anion Gap 16 (12-20); Aspartate Amino Transferase 20 U/L (5-31); Bilirubin Direct 0.3 mg/dL (0.0-0.5); Blood Urea Nitrogen 13 mg/dL (9-16); Calcium 9.1 mg/dL (8.4-10.2); Carbon Dioxide 28 mmol/L (22-29); Chloride 103 mmol/L (96-108); Creatinine Clr Calc Pharmacy 50.8; Estimated Glomerular Filt Rate 60; Glucose Random 110 mg/dL (60-115); Magnesium 1.8 mg/dL (1.6-2.6); Sodium 143 mmol/L (135-145); Total Protein 6.6 g/dL (6.5-8.0)
[2023-01-09 18:44] LABS: B Type Natriuretic Peptide 236 pg/mL (<100)
[2023-01-09 18:56] VITALS: O2SAT 79
[2023-01-09 19:40] LABS: COVID-19 Test Positive (Negative); IDNOW Serial# 16C4AD1C
[2023-01-09] MEDS: Albuterol Sulfate (0.083%) 2.5 MG/3 ML VIAL.NEB 10 MG INHALE (19:55)
[2023-01-09 19:58] VITALS: PULSE 71; RESP 22; O2SAT 100
[2023-01-09] MEDS: methylPREDNISolone Sod Succ 125 MG/2 ML VIAL IVPUSH (20:16)
--- NOTE | 2023-01-09 20:40 | PC.NURSE ---
pt oob to commode with minimal assistance, medicated per orders, 20g IV placed in right forearm- pt pending admission awaiting further imaging. dtr at bedside, both are aware and agree on plan for admission.
--- NOTE | 2023-01-09 20:51 | P.HPHOSP_ITS ---
History of Present Illness Date of Service: 01/09/23 Attending physician on admission: Hood Bolanos Chief Complaint: armendariz, cough 77-year-old female with history of coronary artery disease with history of NSTEMI, CKD stage 3, COPD, depression, insulin-dependent type 2 diabetes, diabetic retinopathy, hyperlipidemia, orthostatic hypotension, HAYDEE compliant with CPAP, former smoker with 50+ pack year history quit 12 years ago, overactive bladder, macular degeneration, and history of CVA presents to the ED with her daughter for evaluation of cough and shortness of breath. She tells me that she tested positive for COVID-19 on 12/28/21 with mild symptoms including nasal congestion. However, several days ago developed dry cough with shortness of breath and wheezing. Reports significant dyspnea on exertion. Denies any fevers, chills, abdominal pain, nausea, vomiting, chest pain. However she does also tell me that for the last few days she has had about 3 episodes of watery diarrhea daily. She reports she has been using her albuterol inhaler more frequently without much relief. On arrival, patient with mild tachypnea to tone 2, hypertensive to 178/48. No hypoxia on room air, ranging 90-92%. However, desaturates to 79% with ambulation. She is non oxygen dependent at home. Hematology studies and chemistries unremarkable except for mildly elevated BNP of 238, baseline unknown and denies any history CHF. CXR was negative for any acute cardiopulmonary illness. Chest CT ordered and results pending. In the ED, given 125 mg IV methylprednisolone and albuterol updraft. Patient to be admitted for acute COPD exacerbation with ambulatory hypoxia. Review of Systems Review of Systems: General: No fevers, malaise, unintentional weight loss HEENT: No sore throat, nasal congestion, rhinorrhea, sinus pain, ear pain Cardiovascular: No chest pain, palpitations, or leg edema Respiratory: + shortness of breath, + wheezing, +cough GI: + diarrhea. No abdominal pain, nausea, vomiting, constipation, melena, hematochezia : No dysuria, hematuria, increased urinary frequency, decreased urinary output MSK: No myalgia, back pain Neuro: No headaches, weakness, paresthesias Skin: No rashes or lesions [facility] Medical History (Updated 01/10/23 @ 17:00 by Marely De La Torre MD) Abnormal nuclear stress test CAD (coronary artery disease) Cataract Chest tightness CKD (chronic kidney disease) COPD (chronic obstructive pulmonary disease) Depression Diabetes Diabetic retinopathy Heart attack Hiatal hernia High cholesterol HLD (hyperlipidemia) Hypercholesterolemia Macular degeneration Mild anemia NSTEMI (non-ST elevated myocardial infarction) Orthostatic hypotension HAYDEE on CPAP Osteoarthritis Overactive bladder Resting tremor Sleep apnea Stroke Syncope Unsteady gait Vertigo Family History Father CVD (cardiovascular disease) Mother Brain aneurysm Surgical History History of cardiac catheterization History of cataract extraction Hx of colonoscopy Hx of vaginal hysterectomy Status post cardiac catheterization Stented coronary artery Social History Are you a primary patient care nursing assistant to a significant other at home: No Do you presently have visiting nurse or other home services: Yes (Meals on Wheels) Unable to assess alcohol history related to: Unknown Alcohol intake: never Patient Tobacco Use Status: Former Tobacco user Quit Date: 2013 Tobacco use type: Cigarette Cigarettes Per Day: 1.5 Years Smoked: 50 e-Cigarette/Vaping Use: Former Use Use of substances other than those prescribed or required for medical reasons: No Currently Displaying Signs/Symptoms of Drug Intoxication Withdrawal: No Have you been hit, kicked, punched, or otherwise hurt by someone within the past year? If so, by whom?: No Do you feel safe in your current relationship?: Yes Is there a partner from a previous relationship who is making you feel unsafe now?: No Are you made to feel afraid or neglected: No Advance Directives: No Advance Directives Information Provided: Yes Do you have thoughts of harming others: None Do you have a plan to hurt others: No Plan Recently lost weight without trying: No How much weight loss: Not applicable Eating poorly because of decreased appetite: No Nutrition screen score: 0 Nutrition Risks: No Nutritional Risk Patient : No : No Poor oral hygiene: No service: No Current occupational status: retired Meds Allergies Allergy/AdvReac Type Severity Reaction Status Date / Time oxycodone [OXYCODONE] Allergy Mild ITCHING, Verified 01/09/23 17:31 itchy adhesive tape Allergy Unknown Verified 01/09/23 17:31 bee pollen [bee stings] Allergy Swelling Verified 01/09/23 17:31 hydromorphone [From DILAUDID] AdvReac Mild ITCHING Verified 01/09/23 17:31 Active Medications: Current Medications Acetaminophen (Acetaminophen 325 Mg Tablet) 650 mg PO Q6H PRN PRN Reason: Pain, Mild (Pain Scale 1-3) Albuterol Sulfate (Albuterol Sulfate (0.083%) 2.5 Mg/3 Ml Vial.Neb) 2.5 mg INHALE Q2H PRN PRN Reason: Shortness of Breath/Wheezing Albuterol Sulfate 2.5 mg/ (Ipratropium [place] 0.5 mg) 0 mg INHALE RQ4H WHILE AWAKE [facility] Docusate Sodium (Docusate Sodium 100 Mg Capsule) 100 mg PO DAILY PRN PRN Reason: Constipation Enoxaparin Sodium (Enoxaparin Sodium 40 Mg/0.4 Ml Syringe) 40 mg SUBCUT Q24H [facility] Methylprednisolone Sodium Succinate (Methylprednisolone Sod Succ 125 Mg/2 Ml Vial) 60 mg IVPUSH Q12H [facility] Ondansetron HCl (Ondansetron Hcl 4 Mg/2 Ml Vial) 4 mg IVPUSH Q8H PRN PRN Reason: Nausea and Vomiting Sodium Chloride (0.9 % Sodium Chloride Flush 3 Ml Syringe) 3 ml IVFLUSH QSHIFT [facility] Home Medications Medication Instructions Recorded Confirmed Last Taken Type atorvastatin 80 mg tablet 80 mg PO DAILY 12/08/20 01/10/23 Unknown History ezetimibe 10 mg tablet 10 mg PO DAILY 12/08/20 01/10/23 08/16/21 History fluoxetine 20 mg capsule 20 mg PO DAILY 12/08/20 01/10/23 08/02/21 History losartan 100 mg tablet 100 mg PO DAILY 12/08/20 01/10/23 Unknown History metformin 500 mg tablet 500 mg PO BIDWM 12/08/20 01/10/23 08/02/21 History metoprolol tartrate 25 mg tablet 25 mg PO BID 12/08/20 01/10/23 08/16/21 History pen needle, diabetic 32 gauge x #50 ea 05/25/21 11/07/22 Unknown History clopidogrel 75 mg tablet 75 mg PO DAILY 04/06/22 01/10/23 Unknown History insulin glargine 100 unit/mL (3 30 unit subcut BEDTIME 07/07/22 01/10/23 Unknown History mL) subcutaneous pen albuterol sulfate 90 mcg/actuation 2 puff inhalation Q6H PRN wheezing 01/10/23 01/10/23 Unknown History aerosol inhaler Physical Exam Vital Signs and Narrative: Vital Signs: Last Vital Signs Temp 97.9 F 01/09/23 17:31 Pulse 71 01/09/23 19:58 Resp 22 H 01/09/23 19:58 BP 178/48 H 01/09/23 17:31 Pulse Ox 79 L 01/09/23 18:56 O2 Del Method 01/09/23 18:56 BMI result Body Mass Index 40.4 Constitutional - Awake and Alert, No apparent distress Eyes - PERRLA, EOMI Cardiovascular - S1S2, RRR, No edema Respiratory - Normal lung expansion, Normal respiratory effort, No respiratory distress, expiratory wheezing bilaterally Gastrointestinal - NT / ND; +BS; No rebound or guarding Extremities - no calf tenderness bilaterally, no swelling Skin - Warm/Dry Neurological - Alert & oriented x3, 5/5 strength BUE and BLE Psychological - Appropriate affect Results Labs 01/09/23 18:10 01/09/23 18:10 Labs: Laboratory Results - last 24 hr 01/09/23 01/09/23 01/09/23 18:10 18:10 18:10 MCV 96.8 MCH 30.5 MCHC 31.5 RDW 13.3 Plt Count 216 MPV 11.2 Immature Gran % (Auto) 0.4 Neut % (Auto) 68.3 Lymph % (Auto) 22.8 [place] % (Auto) 6.1 Eos % (Auto) 1.8 Baso % (Auto) 0.6 Lymph # (Auto) 2.1 [place] # (Auto) 0.6 Eos # (Auto) 0.2 Baso # (Auto) 0.1 Abs Immat Gran (auto) 0.04 H Absolute Neuts (auto) 6.2 Absolute Nucleated RBC 0.000 Nucleated RBC % (auto) 0.0 Anion Gap 16 Estim Creat Clear Calc 50.8 Estimated GFR 60 Random Glucose 110 Calcium 9.1 D Magnesium 1.8 Total Bilirubin 1.0 Direct Bilirubin 0.3 AST 20 ALT 16 Alkaline Phosphatase 158 H B-Natriuretic Peptide 236 H Total Protein 6.6 Albumin 4.0 COVID-19 (PINKY) COVID-19 Clin Com 01/09/23 19:03 MCV MCH MCHC RDW Plt Count MPV Immature Gran % (Auto) Neut % (Auto) Lymph % (Auto) [place] % (Auto) Eos % (Auto) Baso % (Auto) Lymph # (Auto) [place] # (Auto) Eos # (Auto) Baso # (Auto) Abs Immat Gran (auto) Absolute Neuts (auto) Absolute Nucleated RBC Nucleated RBC % (auto) Anion Gap Estim Creat Clear Calc Estimated GFR Random Glucose Calcium Magnesium Total Bilirubin Direct Bilirubin AST ALT Alkaline Phosphatase B-Natriuretic Peptide Total Protein Albumin COVID-19 (PINKY) Positive A COVID-19 Clin Com See Note Imaging Radiologist's Impressions: Impressions Chest X-Ray 01/09/23 17:42 IMPRESSION: No acute intrathoracic disease. Assessment and Plan (1) COPD exacerbation: Status: Acute (2) COVID-19: Status: Acute (3) Hypoxia: Status: Acute Plan 77-year-old female with history of coronary artery disease with history of NSTEMI, CKD stage 3, COPD, depression, insulin-dependent type 2 diabetes, diabetic retinopathy, hyperlipidemia, orthostatic hypotension, HAYDEE compliant with CPAP, former smoker with 50+ pack year history quit 12 years ago, overactive bladder, macular degeneration, and history of CVA admitted for COPD exacerbation with acute hypoxic respiratory failure. # acute COPD exacerbation with acute hypoxic respiratory failure -following COVID-19 infection -methylprednisolone 60 mg b.i.d. -DuoNebs q.4h while awake -albuterol q.2h p.r.n. -nonproductive cough. CXR negative. Hold on antibiotic therapy at this time -continue supplemental O2 to maintain oximetry around 92%. Desaturates to 79% with ambulation. Wean as tolerated # COVID-19 -initially tested positive on 12/28. COVID-19 test in the ED positive. -unlikely to still be purulence, however will continue airborne/contact precautions -outside of window for treatment with IV remdesivir -symptomatic management # insulin-dependent type 2 diabetes-controlled -hold p.o. anti hyperglycemics -continue home basal insulin -POC glucose -diabetic diet -Humalog on sliding scale # HAYDEE -CPAP at bedtime # hypertension -continue metoprolol, losartan, amlodipine # CAD/HLD -continue atorvastatin, Zetia, Plavix, metoprolol DVT prophylaxis-Lovenox Full code Med rec pending Patient requires inpatient stay at least 2 midnights for management of COPD exacerbation with acute hypoxic respiratory failure requiring supplemental O2, IV steroids, and close monitoring for pulmonary decompensation Time Spent With Patient Time: Total time managing care of this patient today ____ minutes. Quality Stroke Does the patient have a stroke diagnosis?: No VTE Prior VTE?: No VTE Risk Level:: Medical - moderate - high VTE Device Contraindication: Treatment Not Indicated VTE Drug Contraindication: N/A - Med Ordered
--- OUTSIDE RECORDS SUMMARY | 2023-01-09 20:55 | XMS_ITS | Continuity of Care Document ---
:1945 Author Organization [facility] [place] Adult Address [address] [place] [address]- Care Team Providers Name Role Phone Nahid Waterman MD Primary Care Physician Encounter [facility] [place] Date(s): 03/11/22 - 04/10/22 [facility] [place] [address] [place] [address]- Allergies, Adverse Reactions, Alerts Substance Reaction Severity Status Adhesive Bandage Active Bee Stings SWELLING AT SITE ONLY Active Percocet Active Immunizations Given and Recorded Vaccine Date Status Refusal Reason SARS-CoV-2 (COVID-19) mRNA BNT-162b2 vac 09/29/21 Recorde d SARS-CoV-2 (COVID-19) mRNA BNT-162b2 vac 01/19/21 Recorde [...] 1Result Comment: [10/19/2017] pt had done @ [facility] [id number] History: [id number] Comment: [09/15/2015] HIGH [id number] Comment: [07/28/2017] AT [facility] amLODIPine 2.5 mg oral tablet 2.5 mg, 1, tablet, By Mouth, Daily, # 90 tablet, Refills 1, Tot. Refills 1, Maintenance, 07/20/21 9:21:00 EDT, Route to Pharmacy Electronically, [facility], Partial fill upon patient requestif the prescription is for a schedule II opioid d... Start Date: 07/20/21 Status: Orderedaspirin 81 mg oral tablet, chewable 81 mg, 1, tablet, By Mouth, Daily, # 30 tablet, Refills 1, Tot. Refills 1, Maintenance, 11/02/19 14:07:39 EST, Route to Pharmacy Electronically, [facility], 149.86, cm, 11/02/19 12:12:42 EST, Height, 90.2, kg, 10/29/19 15:57:27 EST, Dry Weight Start Date: 11/02/19 Stop Date: 01/01/20 Status: Orderedatorvastatin 80 mg oral tablet 1 tablet = 80 mg, By Mouth, Daily, # 90 tablet, 1 Refills, Maintenance, 01/24/22 14:39:00 EST, Tablet, [facility], 150, cm, 08/19/21 13:24:00 EDT, Height, 91, kg, 04/19/21 14:09:00 EDT, Dry Weight Start Date: 01/24/22 Status: OrderedBasaglar KwikPen 100 units/mL subcutaneous solution = 30 units, Subcutaneous Infusion, Daily at bedtime, # 15 mL, 5 Refills, Maintenance, 07/20/21 9:21:00 EDT, [facility], 150, cm, 07/20/21 9:00:00 EDT, Height, 91, kg, 04/19/21 14:09:00 EDT, Dry Weight Start Date: 07/20/21 Stop Date: 01/16/22 Status: Orderedclopidogrel 75 mg oral tablet 75 mg, 1, tablet, By Mouth, Daily, # 90 tablet, Refills 4, Tot. Refills 4, Maintenance, 03/23/22 8:44:00 EDT, Route to Pharmacy Electronically, [facility], Partial fill upon patient request if the prescription is for a schedule II opioid... Start Date: 03/23/22 Stop Date: 06/16/23 Status: OrderedCPAP Machine See Instructions, # 1 [...] 10/11/17 Status: OrderedFLUoxetine 20 mg oral capsule 1, capsule, By Mouth, Daily, # 90 capsule, Refills 1, Tot. Refills 1, Maintenance, 02/11/22 21:27:00EDT, Route to Pharmacy Electronically, [facility], 150, cm, 08/19/21 13:24:00 EDT, Height, 91, kg, 04/19/21 14:09:00 EDT, Dry Weight Start Date: 02/11/22 Status: Orderedlosartan 100 mg oral tablet 1 tablet, By Mouth, Daily, # 90 tablet, 0 Refills, Maintenance, 02/11/22 21:27:00 EDT, [facility], 150, cm, 08/19/21 13:24:00 EDT, Height, 91, kg, 04/19/21 14:09:00 EDT, Dry Weight Start Date: 02/11/22 Status: OrderedmetFORMIN 500 mg oral tablet 1 tablet = 500 mg, By Mouth, 2 times a day, # 180 tablet, 1 Refills, Maintenance, 02/17/22 14:09:00 EDT, Tablet, [facility], 150, cm, 02/17/22 13:07:00 EDT, Height, 91, kg, 04/19/21 14:09:00EDT, Dry Weight Start Date: 02/17/22 Status: Orderedmetoprolol 25 mg oral tablet 25 mg, 1, tablet, By Mouth, 2 times a day, # 180 tablet, Refills 3, Tot. Refills 3, Maintenance, 07/20/21 9:21:00 EDT, Route to Pharmacy Electronically, [facility], 150, cm, 07/20/21 9:00:00EDT, Height, [...] Supply Start Date: 10/12/20 Status: OrderedPEN NEEDLES [id number] PEN NEEDLES [id number], See Instructions, # 100 each, Refills 3, Tot. Refills 3, Maintenance, USE DIRECTED WITH INSULIN DAILY FAX [phone], 07/01/21 13:25:00 EDT, Compound, 150, cm, 06/15/21 14:56:00 EDT, Height, 91, kg, 04/19/21 14:09:00 EDT, Dry We... Start Date: 07/01/21 Status: OrderedProAir HFA 90 mcg/inh inhalation aerosol with adapter 2, puffs, Inhalation, Every 6 hours, PRN, # 8.5 Gm, Refills 1, Tot. Refills 1, Maintenance, 06/23/2011:27:00 EDT, Aerosol, Route to Pharmacy Electronically, [id number], [facility], 149.86, cm, 06/23/20 10:59:00 [...] BE TAKEN IN ADDITION TO LIPITOR FAX [phone], # 90 tablet, 1 Refills, Maintenance, 03/09/22 15:43:00 EDT, Tablet, [facility], 150, cm, 02/22/22 8:22:00 EDT, Height, 91, kg, 04/19/21 14:09:00 EDT, Dry... Start Date: 03/09/22 Status: Ordered Problem List Condition Effective Dates Status Health Status Informant Mild anemia(Confirmed) Active Autonomic neuropathy(Confirmed) Active Benign cyst of breast(Confirmed)1 Active Cataracts, bilateral(Confirmed) Active BMI 40.0-44.9, adult(Confirmed) Active Cataract(Confirmed) Active CKD (chronic kidney Active disease)(Confirmed) COPD (chronic obstructive pulmonary Active disease)(Confirmed) Closed fracture of left proximal Active humerus(Confirmed) Diabetic retinopathy(Confirmed) Active Diverticulosis(Confirmed)2 Active 2-vessel coronary artery Active disease(Confirmed) Gallstones(Confirmed)3 Active H/O vaginal hysterectomy(Confirmed) Active Internal and external hemorrhoids Active without complication(Confirmed)4 Hiatal hernia(Confirmed)5 Active History of cerebrovascular Active accident(Confirmed) History of colonoscopy(Confirmed)6 Active History of non-ST elevation myocardial Active infarction (NSTEMI)(Confirmed) Hypertension(Confirmed) Active Urinary frequency(Confirmed) Active halfway (current) use of Active insulin(Confirmed) Depression, major, in Active remission(Confirmed) Sleep apnea(Confirmed) Active Osteoarthritis(Confirmed)7 Active Hypercholesterolemia(Confirmed) Active Resting tremor(Confirmed) Active Severe obesity(Confirmed) Active Shoulder pain, right(Confirmed) Active Type 2 diabetes mellitus(Confirmed) Active Unsteady gait(Confirmed) Active Vertigo(Confirmed) Active 1Status post excision [id number] chest CT 2014.4colo 71054MEE 69188gcoq 31150Mkqghzbbv Knees and Back Social History Social History Type Response Smoking Status Former smoker; Tobacco user in household: No; Other: Quit this June 2015; entered on: 08/17/16 Sex
--- OUTSIDE RECORDS SUMMARY | 2023-01-09 20:55 | XMS_ITS | Continuity of Care Document ---
:1945 Author Organization [facility] Adult Address [address] [place] [address]- Care Team Providers Name Role Phone Nahid Waterman MD Primary Care Physician Encounter [facility] [place] Date(s): 10/23/20 - 10/30/20 [facility] [address] [place] [address]- Encounter Diagnosis Hospital discharge follow-up (Discharge Diagnosis) - 10/23/20 Type 2 diabetes mellitus (Discharge Diagnosis) - 10/23/20 Mild anemia (Discharge Diagnosis) - 10/23/20 GRISEL (acute kidney injury) (Discharge Diagnosis) - 10/23/20 COPD (chronic obstructive pulmonary disease) (Discharge Diagnosis) - 10/23/20 Attending Physician: Paola Nair NP Referring Physician: Nahid Waterman MD Allergies, Adverse Reactions, Alerts Substance Reaction Severity Status Adhesive Bandage Active Bee Stings SWELLING AT SITE ONLY Active Percocet 5/325 Active Immunizations Given and Recorded Vaccine Date Status Refusal Reason influenza virus vaccine, inactivated 10/01/20 Given influenza [...] [10/19/2017] pt had done @ [facility] [id number] History: [id number] Comment: [09/15/2015] HIGH [id number] Comment: [07/28/2017] AT [facility] Medications albuterol-ipratropium 3 mg-0.5 mg/3 ml inhalation solution 3 mL, Neb, 4 times a day, PRN Wheezing/Shortness of Breath, # 90 mL, 0 Refills, Maintenance, 10/12/20 13:21:00 EST, Inhalation Solution, Partial fill upon patient request Start Date: 10/12/20 Status: OrderedamLODIPine 10 mg oral tablet 10 mg, 1, tablet, By Mouth, Daily, # 90 tablet, Refills 3, Tot. Refills 3, Maintenance, 01/20/20 14:18:00 EST, Route to Pharmacy Electronically, [facility], 149.86, cm, 01/20/20 13:55:00 EST, Height, 90.9, kg, 12/10/19 7:01:00 EST, Dry Weight Start Date: 01/20/20 Status: Orderedaspirin 81 mg oral tablet, chewable 81 mg, 1, tablet, By Mouth, Daily, # 30 tablet, Refills 1, Tot. Refills 1, Maintenance, 11/02/19 14:07:39 EST, Route to Pharmacy Electronically, [facility], 149.86, cm, 11/02/19 12:12:42 EST, Height, 90.2, kg, 10/29/19 15:57:27 EST, Dry Weight Start Date: 11/02/19 Stop Date: 01/01/20 Status: Orderedatorvastatin 80 mg oral tablet 1 tablet = 80 mg, By Mouth, Daily, # 90 tablet, 1 Refills, Maintenance, 10/26/20 11:45:00 EST, Tablet, [facility], 150, cm, 10/23/20 14:48:00 EST, Height, 90.9, kg, 10/09/20 4:37:00 EST, DryWeight Start Date: 10/26/20 Status: OrderedBasaglar KwikPen 100 units/mL subcutaneous solution = 30 units, Subcutaneous Infusion, Daily at bedtime, # 15 mL, 5 Refills, Maintenance, 02/18/20 9:59:00 EDT, [facility], 149.86, cm, 01/20/20 13:55:00 [...] 6 Refills, Maintenance, 07/24/20 14:34:00 EDT, Aerosol, [facility], 149.86, cm, 07/24/20 14:16:00 EDT, Height, 90.9, kg, 12/10/19 7:01:00 EST, Dry Weight Start Date: 07/24/20 Status: OrderedFLUoxetine 20 mg oral capsule 20 mg, 1, capsule, By Mouth, Daily, # 90 capsule, Refills 1, Tot. Refills 1, Maintenance, 08/12/20 13:03:00 EDT, Route to Pharmacy Electronically, [facility], 149.86, cm, 07/24/20 14:16:00 EDT, Height, 90.9, kg, 12/10/19 7:01:00 EST, Dry We... Start Date: 08/12/20 Status: OrderedLab draw CBC, BUN, Cre Lab draw CBC, BUN, Cre, See Instructions, # 1 each, Refills 0, Tot. Refills 0, Maintenance, Please report to lab of your choice for: CBC BUN Cre Please send results to PCP Nahid Waterman MD, 10/12/20 13:25:00 EST, Supply Start Date: 10/12/20 Status: Orderedlosartan 100 mg oral tablet 1 tablet = 100 mg, By Mouth, Daily, # 90 tablet, 3 Refills, Maintenance, 02/10/20 14:08:00 EDT, Tablet, [facility], 149.86, cm, 01/20/20 13:55:00 EST, Height, 90.9, kg, 12/10/19 7:01:00 EST,Dry Weight Start Date: 02/10/20 Status: OrderedmetFORMIN 500 mg oral tablet 1 tablet = 500 mg, By Mouth, 2 times a day, # 180 tablet, 0 Refills, Maintenance, 08/12/20 13:03:00 EDT, Tablet, [facility], 149.86, cm, 07/24/20 14:16:00 EDT, Height, 90.9, kg, 12/10/19 7:01:00 EST, Dry Weight Start Date: 08/12/20 Status: Orderedmetoprolol 25 mg oral tablet 25 mg, 1, tablet, By Mouth, 2 times a day, # 180 tablet, Refills 0, Tot. Refills 0, Maintenance, 10/26/20 11:45:00 EST, Route to Pharmacy Electronically, [facility], 150, cm, 10/23/20 14:48:00 EST, Height, 90.9, kg, 10/09/20 4:37:00 EST, . Start Date: 10/26/20 Status: Orderednebulizer nebulizer, See Instructions, # 1 [...] 13:19:00 EST, Supply Start Date: 10/12/20 Status: Orderedoxybutynin 10 mg/24 hr oral tablet, extended release 1 tablet = 10 mg, By Mouth, Daily, # 30 tablet, 11 Refills, Maintenance, 03/19/20 16:20:00 EDT, ER Tablet, [facility], 149.86, cm, 01/20/20 13:55:00 EST, Height, 90.9, kg, 12/10/19 7:01:00 EST, Dry Weight Start Date: 03/19/20 Status: OrderedPEN NEEDLES [id number] PEN NEEDLES [id number], See Instructions, # 100 each, Refills 11, Tot. Refills 11, Maintenance, USE DIRECTED WITH INSULIN DAILY FAX [phone], 04/30/20 12:29:00 EDT, Compound, 149.86, cm, 01/20/20 13:55:00 EST, Height, 90.9, kg, 12/10/19 7:01:00 EST,... Start Date: 04/30/20 Status: OrderedPlavix 75 mg oral tablet 75 mg, 1, tablet, By Mouth, Daily, # 30 tablet, Refills 11, Tot. Refills 11, Maintenance, 03/19/20 16:21:00 EDT, Route to Pharmacy Electronically, [facility], 149.86, cm, 01/20/20 13:55:00 EST, Height, 90.9, kg, 12/10/19 7:01:00 EST, Dry We... Start Date: 03/19/20 Stop Date: 03/14/21 Status: OrderedProAir HFA 90 mcg/inh inhalation aerosol with adapter 2, puffs, Inhalation, Every 6 hours, PRN, # 8.5 Gm, Refills 1, Tot. Refills 1, Maintenance, 06/23/2011:27:00 EDT, Aerosol, Route to Pharmacy Electronically, [id number], [facility], 149.86, cm, 06/23/20 10:59:00 ED... Start Date: 06/23/20 Status: OrderedVentolin HFA 108 mcg/inh inhalation aerosol with adapter 2 puffs, Inhalation, Every 6 hours, # 1 each, 3 Refills, Maintenance, 06/23/20 16:10:00 [facility], 149.86, cm, 06/23/20 10:59:00 EDT, Height, [...] BE TAKEN IN ADDITION TO LIPITOR FAX [phone], # 90 tablet, 1 Refills, Maintenance, 09/11/20 14:24:00 EDT, Tablet, [facility], 149.86, cm, 08/28/20 9:59:00 EDT, Height, 90.9, kg, 12/10/19 7:01:00 EST,... Start Date: 09/11/20 Status: Ordered Problem List Condition Effective Dates Status Health Status Informant Non-ST elevation ID Active (NSTEMI)(Confirmed) Mild anemia(Confirmed) Active Autonomic neuropathy(Confirmed) [...] Hypercholesterolemia(Confirmed) Active Hypertension(Confirmed) Active Urinary frequency(Confirmed) Active GRISEL (acute kidney injury)(Confirmed) Active Osteoarthritis(Confirmed)7 Active Resting tremor(Confirmed) Active Shoulder pain, right(Confirmed) Active Sleep apnea(Confirmed) Active Type 2 diabetes mellitus(Confirmed) Active Unsteady gait(Confirmed) Active Vertigo(Confirmed) Active 1Status post excision [id number] 19372Zs chest CT 2015.4colo 71893DXV 24106uuir 15407Bzozifdkc Knees and Back Diagnosis Diagnosis Type Effective Dates Health Clinical Infor mant Status Service COPD (chronic Discharge 10/23/20 obstructive Diagnosis pulmonary disease) GRISEL (acute kidney Discharge 10/23/20 injury) Diagnosis Mild anemia Discharge 10/23/20 Diagnosis Type 2 diabetes Discharge 10/23/20 mellitus Diagnosis Hospital discharge Discharge 10/23/20 follow-up Diagnosis Vital Signs Most recent to oldest [Reference Range]: 1 Height 150 cm (10/23/20 2:48 PM) Social History Social History Type Response Smoking Status Former smoker; Tobacco user in household: No; Other: Quit this June 2015; entered on: 08/17/16 Sex
--- OUTSIDE RECORDS SUMMARY | 2023-01-09 20:55 | XMS_ITS | Continuity of Care Document ---
:1945 Author Organization [facility] Adult Address [address] [place] [address]- Care Team Providers Name Role Phone Nahid Waterman MD Primary Care Physician Encounter [facility] [place] [place] Date(s): 03/14/22 - 04/13/22 [facility] [address] [place] [address]- Allergies, Adverse Reactions, Alerts Substance Reaction Severity [...] [10/19/2017] pt had done @ [facility] [id number] History: [id number] Comment: [09/15/2015] HIGH [id number] Comment: [07/28/2017] AT [facility] amLODIPine 2.5 mg oral tablet 2.5 mg, 1, tablet, By Mouth, Daily, # 90 tablet, Refills 1, Tot. Refills 1, Maintenance, 07/20/21 9:21:00 EDT, Route to Pharmacy Electronically, [facility], Partial fill upon patient requestif the prescription is for a schedule II opioid d... Start Date: 07/20/21 Status: Orderedaspirin 81 mg oral tablet, chewable 81 mg, 1, tablet, By Mouth, Daily, # 30 tablet, Refills 1, Tot. Refills 1, Maintenance, 11/02/19 14:07:39 EST, Route to Pharmacy Electronically, [facility], 149.86, cm, 11/02/19 12:12:42 EST, Height, 90.2, kg, 10/29/19 15:57:27 EST, Dry Weight Start Date: 11/02/19 Stop Date: 01/01/20 Status: Orderedatorvastatin 80 mg oral tablet 1 tablet = 80 mg, By Mouth, Daily, # 90 tablet, 1 Refills, Maintenance, 01/24/22 14:39:00 EST, Tablet, [facility], 150, cm, 08/19/21 13:24:00 EDT, Height, 91, kg, 04/19/21 14:09:00 EDT, Dry Weight Start Date: 01/24/22 Status: OrderedBasaglar KwikPen 100 units/mL subcutaneous solution = 30 units, Subcutaneous Infusion, Daily at bedtime, # 15 mL, 5 Refills, Maintenance, 07/20/21 9:21:00 EDT, [facility], 150, cm, 07/20/21 9:00:00 EDT, Height, 91, kg, 04/19/21 14:09:00 EDT, Dry Weight Start Date: 07/20/21 Stop Date: 01/16/22 Status: Orderedclopidogrel 75 mg oral tablet 75 mg, 1, tablet, By Mouth, Daily, # 90 tablet, Refills 4, Tot. Refills 4, Maintenance, 03/23/22 8:44:00 EDT, Route to Pharmacy Electronically, [facility], Partial fill upon patient [...] Maintenance, 02/11/22 21:27:00EDT, Route to Pharmacy Electronically, [facility], 150, cm, 08/19/21 13:24:00 EDT, Height, 91, kg, 04/19/21 14:09:00 EDT, Dry Weight Start Date: 02/11/22 Status: Orderedlosartan 100 mg oral tablet 1 tablet, By Mouth, Daily, # 90 tablet, 0 Refills, Maintenance, 02/11/22 21:27:00 EDT, [facility], 150, cm, 08/19/21 13:24:00 EDT, Height, 91, kg, 04/19/21 14:09:00 EDT, Dry Weight Start Date: 02/11/22 Status: OrderedmetFORMIN 500 mg oral tablet 1 tablet = 500 mg, By Mouth, 2 times a day, # 180 tablet, 1 Refills, Maintenance, 02/17/22 14:09:00 EDT, Tablet, [facility], 150, cm, 02/17/22 13:07:00 EDT, Height, 91, kg, 04/19/21 14:09:00EDT, Dry Weight Start Date: 02/17/22 Status: Orderedmetoprolol 25 mg oral tablet 25 mg, 1, tablet, By Mouth, 2 times a day, # 180 tablet, Refills 3, Tot. Refills 3, Maintenance, 07/20/21 9:21:00 EDT, Route to Pharmacy Electronically, [facility], 150, cm, 07/20/21 9:00:00EDT, Height, [...] Supply Start Date: 10/12/20 Status: OrderedPEN NEEDLES [id number] PEN NEEDLES [id number], See Instructions, # 100 each, Refills 3, Tot. Refills 3, Maintenance, USE DIRECTED WITH INSULIN DAILY FAX [phone], 07/01/21 13:25:00 EDT, Compound, 150, cm, 06/15/21 14:56:00 EDT, Height, 91, kg, 04/19/21 14:09:00 EDT, Dry We... Start Date: 07/01/21 Status: OrderedProAir HFA 90 mcg/inh inhalation aerosol with adapter 2, puffs, Inhalation, Every 6 hours, PRN, # 8.5 Gm, Refills 1, Tot. Refills 1, Maintenance, 06/23/2011:27:00 EDT, Aerosol, Route to Pharmacy Electronically, [id number], [facility], 149.86, cm, 06/23/20 10:59:00 ED... [...] BE TAKEN IN ADDITION TO LIPITOR FAX [phone], # 90 tablet, 1 Refills, Maintenance, 03/09/22 15:43:00 EDT, Tablet, [facility], 150, cm, 02/22/22 8:22:00 EDT, [...] infarction (NSTEMI)(Confirmed) Hypertension(Confirmed) Active Urinary frequency(Confirmed) Active FPC (current) use of Active insulin(Confirmed) Depression, major, in Active remission(Confirmed) Sleep apnea(Confirmed) Active Osteoarthritis(Confirmed)7 Active Hypercholesterolemia(Confirmed) Active Resting tremor(Confirmed) Active Severe obesity(Confirmed) Active Shoulder pain, right(Confirmed) Active Type 2 diabetes mellitus(Confirmed) Active Unsteady gait(Confirmed) Active Vertigo(Confirmed) Active 1Status post excision [id number] 10371Pq chest CT 2014.4colo 27161NON 74811lubt 14022Hhvvpnyup Knees and Back Social History Social History Type Response Smoking Status Former smoker; Tobacco user in household: No; Other: Quit this June 2015; entered on: 08/17/16 Sex
--- OUTSIDE RECORDS SUMMARY | 2023-01-09 20:55 | XMS_ITS | Continuity of Care Document ---
:1945 Author Organization [facility] Address [address] [place] [address]- Care Team Providers Name Role Phone Columba WATSON, Nahid Washington Primary Care Physician Encounter [facility] Date(s): 10/13/20 - 11/19/20 [facility] [address] [place] [address]- Attending Physician: Joanie PHOTORESIST PRINTER, Paola Allergies, Adverse Reactions, Alerts Substance Reaction Severity [...] 1Result Comment: [10/19/2017] pt had done @ [facility] [id number] History: [id number] Comment: [09/15/2015] HIGH [id number] Comment: [07/28/2017] AT [facility] Medications albuterol-ipratropium 3 mg-0.5 mg/3 ml inhalation [...] 01/20/20 14:18:00 EST, Route to Pharmacy Electronically, [facility], 149.86, cm, 01/20/20 13:55:00 EST, Height, 90.9, kg, 12/10/19 7:01:00 EST, Dry Weight Start Date: 01/20/20 Status: Orderedaspirin 81 mg oral tablet, chewable 81 mg, 1, tablet, By Mouth, Daily, # 30 tablet, Refills 1, Tot. Refills 1, Maintenance, 11/02/19 14:07:39 EST, Route to Pharmacy Electronically, [facility], 149.86, cm, 11/02/19 12:12:42 EST, Height, 90.2, kg, 10/29/19 15:57:27 EST, Dry Weight Start Date: 11/02/19 Stop Date: 01/01/20 Status: Orderedatorvastatin 80 mg oral tablet 1 tablet = 80 mg, By Mouth, Daily, # 90 tablet, 1 Refills, Maintenance, 10/26/20 11:45:00 EST, Tablet, [facility], 150, cm, 10/23/20 14:48:00 EST, Height, 90.9, kg, 10/09/20 4:37:00 EST, DryWeight Start Date: 10/26/20 Status: OrderedBasaglar KwikPen 100 units/mL subcutaneous solution = 30 units, Subcutaneous Infusion, Daily at bedtime, # 15 mL, 5 Refills, Maintenance, 02/18/20 9:59:00 EDT, [facility], 149.86, cm, 01/20/20 13:55:00 EST, [...] 6 Refills, Maintenance, 07/24/20 14:34:00 EDT, Aerosol, [facility], 149.86, cm, 07/24/20 14:16:00 EDT, Height, 90.9, kg, 12/10/19 7:01:00 EST, Dry Weight Start Date: 07/24/20 Status: OrderedFLUoxetine 20 mg oral capsule 20 mg, 1, capsule, By Mouth, Daily, # 90 capsule, Refills 1, Tot. Refills 1, Maintenance, 08/12/20 13:03:00 EDT, Route to Pharmacy Electronically, [facility], 149.86, cm, 07/24/20 14:16:00 EDT, Height, 90.9, kg, 12/10/19 7:01:00 EST, Dry We... Start Date: 08/12/20 Status: OrderedLab draw CBC, BUN, Cre Lab draw CBC, BUN, Cre, See Instructions, # 1 each, Refills 0, Tot. Refills 0, Maintenance, Please report to lab of your choice for: CBC BUN Cre Please send results to PCP Columba WATSON, Nahid Washington, 10/12/20 13:25:00 EST, Supply Start Date: 10/12/20 Status: Orderedlosartan 100 mg oral tablet 1 tablet = 100 mg, By Mouth, Daily, # 90 tablet, 3 Refills, Maintenance, 02/10/20 14:08:00 EDT, Tablet, [facility], 149.86, cm, 01/20/20 13:55:00 EST, Height, 90.9, kg, 12/10/19 7:01:00 EST,Dry Weight Start Date: 02/10/20 Status: OrderedmetFORMIN 500 mg oral tablet 1 tablet = 500 mg, By Mouth, 2 times a day, # 180 tablet, 0 Refills, Maintenance, 11/16/20 14:50:00 EST, Tablet, [facility], 150, cm, 10/23/20 14:48:00 EST, Height, 90.9, kg, 10/09/20 4:37:00 EST, Dry Weight Start Date: 11/16/20 Status: Orderedmetoprolol 25 mg oral tablet 25 mg, 1, tablet, By Mouth, 2 times a day, # 180 tablet, Refills 0, Tot. Refills 0, Maintenance, 10/26/20 11:45:00 EST, Route to Pharmacy Electronically, [facility], 150, cm, 10/23/20 14:48:00 EST, [...] Refills, Maintenance, 03/19/20 16:20:00 EDT, ER Tablet, [facility], 149.86, cm, 01/20/20 13:55:00 EST, Height, 90.9, kg, 12/10/19 7:01:00 EST, Dry Weight Start Date: 03/19/20 Status: OrderedPEN NEEDLES 89NL6ON PEN NEEDLES [id number], See Instructions, # 100 each, Refills 11, Tot. Refills 11, Maintenance, USE DIRECTED WITH INSULIN DAILY FAX [phone], 04/30/20 12:29:00 EDT, Compound, 149.86, cm, 01/20/20 13:55:00 EST, Height, 90.9, kg, 12/10/19 7:01:00 EST,... Start Date: 04/30/20 Status: OrderedPlavix 75 mg oral tablet 75 mg, 1, tablet, By Mouth, Daily, # 30 tablet, Refills 11, Tot. Refills 11, Maintenance, 03/19/20 16:21:00 EDT, Route to Pharmacy Electronically, [facility], 149.86, cm, 01/20/20 13:55:00 EST, Height, 90.9, kg, 12/10/19 7:01:00 EST, Dry We... Start Date: 03/19/20 Stop Date: 03/14/21 Status: OrderedProAir HFA 90 mcg/inh inhalation aerosol with adapter 2, puffs, Inhalation, Every 6 hours, PRN, # 8.5 Gm, Refills 1, Tot. Refills 1, Maintenance, 06/23/2011:27:00 EDT, Aerosol, Route to Pharmacy Electronically, [id number], [facility], 149.86, cm, 06/23/20 10:59:00 ED... Start Date: 06/23/20 Status: OrderedVentolin HFA 108 mcg/inh inhalation aerosol with adapter 2 puffs, Inhalation, Every 6 hours, # 1 each, 3 Refills, Maintenance, 06/23/20 16:10:00 EDT, [facility], 149.86, cm, 06/23/20 10:59:00 EDT, Height, [...] BE TAKEN IN ADDITION TO LIPITOR FAX [phone], # 90 tablet, 1 Refills, Maintenance, 09/11/20 14:24:00 EDT, Tablet, [facility], 149.86, cm, 08/28/20 9:59:00 EDT, [...] gait(Confirmed) Active Vertigo(Confirmed) Active 1Status post excision [id number] 85335Cr chest CT 2014.4colo 38944UOT 10070sxxs 59786Noojtwyli Knees and Back Social History Social History Type Response Smoking Status Former smoker; Tobacco user in household: No; Other: Quit this June 2015; entered on: 08/17/16 Sex
--- OUTSIDE RECORDS SUMMARY | 2023-01-09 20:55 | XMS_ITS | Continuity of Care Document ---
:1945 Author Organization [facility] Address [address] [place] [address]- Care Team Providers Name Role Phone Nahid Waterman MD Primary Care Physician Encounter [facility] Date(s): 10/29/19 - 11/02/[address] [address]- [facility] Discharge Disposition: A-D/C Home Attending Physician: Tommie Li MD Admitting Physician: Cory De La Torre MD Referring Physician: Not on Staff, Referring MD Allergies, Adverse Reactions, Alerts Substance Reaction Severity Status Adhesive Bandage Active Bee Stings SWELLING AT SITE ONLY Active Immunizations Given and Recorded Vaccine Date Status Refusal Reason influenza virus vaccine, inactivated 08/27/19 Recorded influenza virus vaccine, inactivated1 08/21/17 Recorded influenza virus vaccine, inactivated 09/09/16 Given influenza virus vaccine, inactivated2, 3 09/12/15 Recorde d influenza virus vaccine, inactivated 10/07/14 Given Zoster Vaccine Live4 07/21/17 Recorded pneumococcal 23-valent vaccine 03/22/16 Given tetanus/diphtheria/pertussis, acel(Tdap) 03/10/15 Given pneumococcal 13-valent vaccine 03/10/15 Given 1Result Comment: [10/19/2017] pt had done @ [facility] [id number] History: [id number] Comment: [09/15/2015] HIGH [id number] Comment: [07/28/2017] AT [facility] Medications aspirin 81 mg oral tablet, chewable 81 mg, 1, tablet, By Mouth, Daily, # 30 tablet, Refills 1, Tot. Refills 1, Maintenance, 11/02/19 14:07:39 EST, Route to Pharmacy Electronically, [facility], 149.86, cm, 11/02/19 12:12:42 EST, Height, 90.2, kg, 10/29/19 15:57:27 EST, Dry Weight Start Date: 11/02/19 Stop Date: 01/01/20 Status: Orderedatorvastatin 80 mg oral tablet 1 tablet = 80 mg, By Mouth, Daily, # 90 tablet, 1 Refills, Maintenance, Tablet, Route to Pharmacy Electronically, [id number], [facility] Start Date: 12/24/18 Status: OrderedBasaglar KwikPen 100 units/mL subcutaneous solution = 40 units, Subcutaneous Infusion, Daily at bedtime, # 15 mL, 11 Refills, Maintenance, 01/02/19 10:27:03 EST Start Date: 01/02/19 Status: OrderedCentrum Silver By [...] 04/29/19 13:41:56 EDT, Route to Pharmacy Electronically, [id number], [facility] [id number] Start Date: 04/29/19 Status: Orderedlosartan 100 mg [...] 11/02/19 14:08:05 EST, Route to Pharmacy Electronically, [facility], 149.86, cm, 11/02/19 12:12:42 EST, Height, 90.2, kg, 10/29/19 15:57:27 EST,... Start Date: 11/02/19 Stop Date: 01/01/20 Status: Orderedoxybutynin 10 mg/24 hr oral tablet, extended release 1 tablet = 10 mg, By Mouth, Daily, 0 Refills, Maintenance, 11/02/19 14:08:12 EST, ER Tablet Start Date: 11/02/19 Status: OrderedPEN NEEDLES 38LI0TS PEN NEEDLES 09WZ9RF, See Instructions, # 100 each, Refills 0, Tot. Refills 0, Maintenance, USE DIRECTED WITH INSULIN DAILY FAX [phone], 04/17/19 12:58:00 EDT, Compound Start Date: 04/17/19 Status: OrderedPlavix 75 mg oral tablet 75 mg, 1, tablet, By Mouth, Daily, Stop Aggrenox, # 30 tablet, Refills 1, Tot. Refills 1, Maintenance, 11/02/19 14:07:49 EST, Route to Pharmacy Electronically, [facility], 149.86, cm, 11/02/19 12:12:42 EST, [...] BE TAKEN IN ADDITION TO LIPITOR FAX [phone], # 90 tablet, 1 Refills, Maintenance, 09/13/19 [...] Depression(Confirmed) Active Diabetic retinopathy(Confirmed) Active Diverticulosis(Confirmed)2 Active Gallstones(Confirmed)3 Active H/O vaginal hysterectomy(Confirmed) Active Internal and external hemorrhoids Active without complication(Confirmed)4 Hiatal hernia(Confirmed)5 Active History of cerebrovascular Active accident(Confirmed) History of colonoscopy(Confirmed)6 Active Hypercholesterolemia(Confirmed) Active Hypertension(Confirmed) Active Urinary frequency(Confirmed) Active Osteoarthritis(Confirmed)7 Active Shoulder pain, right(Confirmed) Active Sleep apnea(Confirmed) Active Type 2 diabetes mellitus(Confirmed) Active Unsteady gait(Confirmed) Active Vertigo(Confirmed) Active 1Status post excision [id number] 45620Hb chest CT 2014.4colo 32427XRZ 38892vdjr 59685Qtthqpftc Knees and Back Results Radiology Reports Exam Date Time Procedure Performing Provider Status 10/30/19 8:52 PM Chest 2 Views Frontal and Lat Henry Perez [facility] (Verified) Notes:(Chest 2 Views Frontal and Lat) Reason For Exam: PreopRESULT: Chest 2 Views Frontal and Lat Chest 2 Views Frontal and Lat Reason: Preop; Clinical Question(s): Preop; COMPARISON: 07/24/2018. FINDINGS: LINES AND TUBES: None. LUNGS AND PLEURA: Clear lungs. Normal pulmonary vascularity. No pleural effusion. No pneumothorax. HEART, MEDIASTINUM AND DARIEN: Heart is at the upper limits of normal for size. Aorta is calcified. BONES AND SOFT TISSUES: No acute abnormality. IMPRESSION: No acute abnormality. WSN: [id number] Dictated By: Stanislaw Chong MD Dictated Date/Time: 10/30/19 9:00 pm Reviewed By: Stanislaw Chong MD Signed By: Stanislaw Chong MD Signed Date/Time: 10/30/19 9:00 pm Transcribed By: JOCELIN Transcribed Date/Time: 10/30/19 9:00 pm Vital Signs Most recent to oldest 1 2 3 [Reference Range]: Height 149.86 cm 149.86 cm 149.86 cm (11/02/19 12:12 PM) (11/02/19 5:45 AM) (11/01/19 8:46 PM) Weight 91 kg 90.5 kg 90.8 kg (11/02/19 5:45 AM) (11/01/19 4:17 AM) (11/01/19 2:10 AM) Oxygen Saturation [94-100 98 % 98 % 94 % %] (11/02/19 12:12 PM) (11/02/19 5:45 AM) (11/01/19 8:46 PM) Pulse Rate [55-90 bpm] 62 bpm 65 bpm 65 bpm (11/02/19 12:12 PM) (11/02/19 8:10 AM) (11/02/19 5:45 AM) Body Mass Index 40.52 40.3 40.43 [18.5-24.99] *>HHI* *>HHI* *>HHI* (11/02/19 5:45 AM) (11/01/19 4:17 AM) (10/31/19 4:31 AM) Blood Pressure 152/49 mm Hg 141/41 mm Hg 141/41 mm Hg [90-138/55-84 mm Hg] *H* *H* *H* (11/02/19 12:12 PM) (11/02/19 8:10 AM) (11/02/19 8:10 AM) Respiratory Rate [16-30 18 br/min 18 br/min 18 br/mi n br/min] (11/02/19 12:12 PM) (11/02/19 6:20 AM) (11/02/19 5:45 AM) Temperature [96.8-100.4 98.0 DegF 98.1 DegF 98.2 Deg F DegF] (11/02/19 12:12 PM) (11/02/19 5:45 AM) (11/01/19 8:46 PM) Mode of Delivery (Oxygen) Room air Room air Room a ir (11/02/19 12:12 PM) (11/02/19 5:45 AM) (11/01/19 8:46 PM) Blood pressure sites Arm, left Arm, left Arm, left (11/02/19 12:12 PM) (11/02/19 5:45 AM) (11/01/19 8:46 PM) Temperature Route Oral Oral Oral (11/02/19 12:12 PM) (11/02/19 5:45 AM) (11/01/19 8:46 PM) Dry Weight 90.2 kg (10/29/19 3:57 PM) Weight Obtained Via Bed scale Standing scale Standing sca le (11/02/19 5:45 AM) (11/01/19 4:17 AM) (10/31/19 4:31 AM) Dry Weight Obtained Via Bed scale (10/29/19 3:57 PM) Sensory deficits None (10/29/19 3:57 PM) Mobility assistance Partial assistance (10/29/19 3:57 PM) Social History Social History Type Response Smoking Status Former smoker; Tobacco user in household: No; Other: Quit this June 2015; entered on: 08/17/16 Sex
--- OUTSIDE RECORDS SUMMARY | 2023-01-09 20:55 | XMS_ITS | Continuity of Care Document ---
:1945 Author Organization [facility] Address [address] [place] [address]- Care Team Providers Name Role Phone Nahid Waterman MD Primary Care Physician Encounter [facility] Date(s): 06/15/21 - 06/22/21 [facility] [address] [place] [address]- Attending Physician: Erika Lynn NP Referring Physician: Nahid Waterman MD Allergies, Adverse Reactions, Alerts Substance Reaction Severity Status Adhesive Bandage Active Bee Stings SWELLING AT SITE ONLY Active Percocet 5/ Active Immunizations Given and Recorded Vaccine Date [...] [10/19/2017] pt had done @ [facility] [id number] History: [id number] Comment: [09/15/2015] HIGH [id number] Comment: [07/28/2017] AT [facility] Medications amLODIPine 2.5 mg oral tablet 2.5 mg, 1, tablet, By Mouth, Daily, # 90 tablet, Refills 0, Tot. Refills 0, Maintenance, 06/15/21 15:22:00 EDT, Do Not Route, Partial fill upon patient request if the prescription is for a schedule II opioid drug. Start Date: 06/15/21 Status: Orderedaspirin 81 mg oral tablet, chewable 81 mg, 1, tablet, By Mouth, Daily, # 30 tablet, Refills 1, Tot. Refills 1, Maintenance, 11/02/19 14:07:39 EST, Route to Pharmacy Electronically, [facility], 149.86, cm, 11/02/19 12:12:42 EST, Height, 90.2, kg, 10/29/19 15:57:27 EST, Dry Weight Start Date: 11/02/19 Stop Date: 01/01/20 Status: Orderedatorvastatin 80 mg oral tablet 1 tablet = 80 mg, By Mouth, Daily, # 90 tablet, 1 Refills, Maintenance, 04/26/21 9:55:00 EDT, Tablet, [facility], 150, cm, 04/21/21 15:26:00 EDT, Height, 91, kg, 04/19/21 14:09:00 EDT, Dry Weight Start Date: 04/26/21 Status: OrderedBasaglar KwikPen 100 units/mL subcutaneous solution = 30 units, Subcutaneous Infusion, Daily at bedtime, # 15 mL, 5 Refills, Maintenance, 03/09/21 13:30:00 EDT, [facility], 150, cm, 12/31/20 12:51:00 EST, [...] 01/30/21 14:39:00 EST, Route to Pharmacy Electronically, [facility], 150, cm, 12/31/20 12:51:00 EST,Height, 90.9, kg, 10/09/20 4:37:00 EST, Dry Weight Start Date: 01/30/21 Status: Orderedlosartan 100 mg oral tablet 1 tablet, By Mouth, Daily, # 90 tablet, 1 Refills, Maintenance, 05/18/21 10:58:00 EDT, [facility], 150, cm, 04/21/21 15:26:00 EDT, Height, 91, kg, 04/19/21 14:09:00 EDT, Dry Weight Start Date: 05/18/21 Status: OrderedmetFORMIN 500 mg oral tablet 1 tablet = 500 mg, By Mouth, 2 times a day, # 180 tablet, 0 Refills, Maintenance, 03/19/21 15:48:00 EDT, Tablet, [facility], 150, cm, 12/31/20 12:51:00 EST, Height, 90.9, kg, 10/09/20 4:37:00 EST, Dry Weight Start Date: 03/19/21 Status: Orderedmetoprolol 25 mg oral tablet 25 mg, 1, tablet, By Mouth, 2 times a day, # 180 tablet, Refills 3, Tot. Refills 3, Maintenance, 04/22/21 12:59:00 EDT, Route to Pharmacy Electronically, [facility], 150, cm, 04/21/21 15:26:00 EDT, Height, [...] Supply Start Date: 10/12/20 Status: OrderedPEN NEEDLES 42MK2XP PEN NEEDLES 55RQ1DC, See Instructions, # 100 each, Refills 11, Tot. Refills 11, Maintenance, USE DIRECTED WITH INSULIN DAILY FAX [phone], 03/19/21 15:48:00 EDT, Compound, 150, cm, 12/31/20 12:51:00EST, Height, 90.9, kg, 10/09/20 4:37:00 EST, Dry... Start Date: 03/19/21 Status: OrderedProAir HFA 90 mcg/inh inhalation aerosol with adapter 2, puffs, Inhalation, Every 6 hours, PRN, # 8.5 Gm, Refills 1, Tot. Refills 1, Maintenance, 06/23/2011:27:00 EDT, Aerosol, Route to Pharmacy Electronically, [id number], [facility], 149.86, cm, 06/23/20 10:59:00 ED... [...] BE TAKEN IN ADDITION TO LIPITOR FAX [phone], # 90 tablet, 0 Refills, Maintenance, 03/19/21 15:48:00 EDT, Tablet, [facility], 150, cm, 12/31/20 12:51:00EST, Height, 90.9, kg, 10/09/20 4:37:00 EST DRicardo.. Start Date: 03/19/21 Status: Ordered Problem List Condition Effective Dates Status Health Status Informant Non-ST elevation SD Active (NSTEMI)(Confirmed) Mild anemia(Confirmed) Active Autonomic neuropathy(Confirmed) [...] gait(Confirmed) Active Vertigo(Confirmed) Active 1Status post excision [id number] 11733Bz chest CT 2014.4colo 90772WNG 47494qfmk 37749Skzsjdqrg Knees and Back Vital Signs Most recent to oldest [Reference Range]: 1 Height 150 cm (06/15/21 2:56 PM) Weight 95.3 kg (06/15/21 2:56 PM) Oxygen Saturation [94-100 %] 96 % (06/15/21 2:56 PM) Pulse Rate [55-90 bpm] 64 bpm (06/15/21 2:56 PM) Body Mass Index [18.5-24.99] 42.36 *>HHI* (06/15/21 2:56 PM) Blood Pressure [90-138/55-84 mm Hg] 120/78 mm Hg (06/15/21 2:56 PM) Blood pressure sites Arm, left (06/15/21 2:56 PM) Social History Social History Type Response Smoking Status Former smoker; Tobacco user in household: No; Other: Quit this June 2015; entered on: 08/17/16 Sex
--- OUTSIDE RECORDS SUMMARY | 2023-01-09 20:55 | XMS_ITS | Continuity of Care Document ---
:1945 Author Organization [facility] Address [address] [place] [address]- Care Team Providers Name Role Phone Columba WATSON, Nahid Washington Primary Care Physician Encounter [facility] Date(s): 06/09/20 - 07/09/20 [facility] [address] [place] [address]- [facility] Allergies, Adverse Reactions, Alerts Substance Reaction Severity [...] 1Result Comment: [10/19/2017] pt had done @ [facility] [id number] History: [id number] Comment: [09/15/2015] HIGH [id number] Comment: [07/28/2017] AT [facility] Medications amLODIPine 10 mg oral tablet 10 mg, 1, tablet, By Mouth, Daily, # 90 tablet, Refills 3, Tot. Refills 3, Maintenance, 01/20/20 14:18:00 EST, Route to Pharmacy Electronically, [facility], 149.86, cm, 01/20/20 13:55:00 EST, Height, 90.9, kg, 12/10/19 7:01:00 EST, Dry Weight Start Date: 01/20/20 Status: Orderedaspirin 81 mg oral tablet, chewable 81 mg, 1, tablet, By Mouth, Daily, # 30 tablet, Refills 1, Tot. Refills 1, Maintenance, 11/02/19 14:07:39 EST, Route to Pharmacy Electronically, [facility], 149.86, cm, 11/02/19 12:12:42 EST, Height, 90.2, kg, 10/29/19 15:57:27 EST, Dry Weight Start Date: 11/02/19 Stop Date: 01/01/20 Status: Orderedatorvastatin 80 mg oral tablet 1 tablet = 80 mg, By Mouth, Daily, # 90 tablet, 1 Refills, Maintenance, 04/20/20 9:42:00 EDT, Tablet, [facility], 149.86, cm, 01/20/20 13:55:00 EST, Height, 90.9, kg, 12/10/19 7:01:00 EST, Dry Weight Start Date: 04/20/20 Status: OrderedBasaglar KwikPen 100 units/mL subcutaneous solution = 30 units, Subcutaneous Infusion, Daily at bedtime, # 15 mL, 5 Refills, Maintenance, 02/18/20 9:59:00 EDT, [facility], 149.86, cm, 01/20/20 13:55:00 [...] 02/10/20 11:51:00 EDT, Route to Pharmacy Electronically, [facility], 149.86, cm, 01/20/20 13:55:00 EST, Height, 90.9, kg, 12/10/19 7:01:00 EST, Dry We... Start Date: 02/10/20 Status: Orderedlosartan 100 mg oral tablet 1 tablet = 100 mg, By Mouth, Daily, # 90 tablet, 3 Refills, Maintenance, 02/10/20 14:08:00 EDT, Tablet, [facility], 149.86, cm, 01/20/20 13:55:00 EST, Height, 90.9, kg, 12/10/19 7:01:00 EST,Dry Weight Start Date: 02/10/20 Status: OrderedmetFORMIN 500 mg oral tablet 1 tablet = 500 mg, By Mouth, 2 times a day, # 180 tablet, 0 Refills, Maintenance, 04/30/20 13:48:00 EDT, Tablet, [facility], 149.86, cm, 01/20/20 13:55:00 EST, Height, 90.9, kg, 12/10/19 7:01:00 EST, Dry Weight Start Date: 04/30/20 Status: Orderedmetoprolol 25 mg oral tablet 25 mg, 1, tablet, By Mouth, 2 times a day, # 60 tablet, Refills 1, Tot. Refills 1, Maintenance, 11/02/19 14:08:05 EST, Route to Pharmacy Electronically, [facility], 149.86, cm, 11/02/19 12:12:42 EST, Height, 90.2, kg, 10/29/19 15:57:27 EST,... Start Date: 11/02/19 Stop Date: 01/01/20 Status: Orderedoxybutynin 10 mg/24 hr oral tablet, extended release 1 tablet = 10 mg, By Mouth, Daily, # 30 tablet, 11 Refills, Maintenance, 03/19/20 16:20:00 EDT, ER Tablet, [facility], 149.86, cm, 01/20/20 13:55:00 EST, Height, 90.9, kg, 12/10/19 7:01:00 EST, Dry Weight Start Date: 03/19/20 Status: OrderedPEN NEEDLES 73AF0HH PEN NEEDLES 23OP4NQ, See Instructions, # 100 each, Refills 11, Tot. Refills 11, Maintenance, USE DIRECTED WITH INSULIN DAILY FAX [phone], 04/30/20 12:29:00 EDT, Compound, 149.86, cm, 01/20/20 13:55:00 EST, Height, 90.9, kg, 12/10/19 7:01:00 EST,... Start Date: 04/30/20 Status: OrderedPlavix 75 mg oral tablet 75 mg, 1, tablet, By Mouth, Daily, # 30 tablet, Refills 11, Tot. Refills 11, Maintenance, 03/19/20 16:21:00 EDT, Route to Pharmacy Electronically, [facility], 149.86, cm, 01/20/20 13:55:00 EST, Height, 90.9, kg, 12/10/19 7:01:00 EST, Dry We... Start Date: 03/19/20 Stop Date: 03/14/21 Status: OrderedProAir HFA 90 mcg/inh inhalation aerosol with adapter 2, puffs, Inhalation, Every 6 hours, PRN, # 8.5 Gm, Refills 1, Tot. Refills 1, Maintenance, 06/23/2011:27:00 EDT, Aerosol, Route to Pharmacy Electronically, [id number], [facility], 149.86, cm, 06/23/20 10:59:00 ED... Start Date: 06/23/20 Status: OrderedVentolin HFA 108 mcg/inh inhalation aerosol with adapter 2 puffs, Inhalation, Every 6 hours, # 1 each, 3 Refills, Maintenance, 06/23/20 16:10:00 EDT, [facility], 149.86, cm, 06/23/20 10:59:00 [...] BE TAKEN IN ADDITION TO LIPITOR FAX [phone], # 90 tablet, 1 Refills, Maintenance, 03/24/20 10:29:00 EDT, Tablet, [facility], 149.86, cm, 01/20/20 13:55:00 EST, Height, 90.9, kg, 12/10/19 7:01:00 EST... Start Date: 03/24/20 Status: Ordered Problem List Condition Effective Dates Status Health Status Informant Non-ST elevation IN Active (NSTEMI)(Confirmed) Mild anemia(Confirmed) Active Autonomic neuropathy(Confirmed) [...] gait(Confirmed) Active Vertigo(Confirmed) Active 1Status post excision [id number] 92174Tn chest CT 2014.4colo 71533YCX 96743wpxx 64227Ekenxklef Knees and Back Social History Social History Type Response Smoking Status Former smoker; Tobacco user in household: No; Other: Quit this June 2015; entered on: 08/17/16 Sex
--- OUTSIDE RECORDS SUMMARY | 2023-01-09 20:55 | XMS_ITS | Continuity of Care Document ---
:1945 Author Organization [facility] Adult Address [address] [place] [address]- Care Team Providers Name Role Phone Columba WATSON, Nahid [place] Primary Care Physician [facility]20 - 08/19/20 [facility] [address] [place] [address]- [place] States Allergies, Adverse Reactions, Alerts Substance Reaction Severity [...] 1Result Comment: [10/19/2017] pt had done @ [facility] high [id number] History: [id number] Comment: [09/15/2015] HIGH [id number] Comment: [07/28/2017] AT [facility] Medications amLODIPine 10 mg oral tablet 10 mg, 1, tablet, By Mouth, Daily, # 90 tablet, Refills 3, Tot. Refills 3, Maintenance, 01/20/20 14:18:00 EST, Route to Pharmacy Electronically, [facility], 149.86, cm, 01/20/20 13:55:00 EST, Height, 90.9, kg, 12/10/19 7:01:00 EST, Dry Weight Start Date: 01/20/20 Status: Orderedaspirin 81 mg oral tablet, chewable 81 mg, 1, tablet, By Mouth, Daily, # 30 tablet, Refills 1, Tot. Refills 1, Maintenance, 11/02/19 14:07:39 EST, Route to Pharmacy Electronically, [facility], 149.86, cm, 11/02/19 12:12:42 EST, Height, 90.2, kg, 10/29/19 15:57:27 EST, Dry Weight Start Date: 11/02/19 Stop Date: 01/01/20 Status: Orderedatorvastatin 80 mg oral tablet 1 tablet = 80 mg, By Mouth, Daily, # 90 tablet, 1 Refills, Maintenance, 04/20/20 9:42:00 EDT, Tablet, [facility], 149.86, cm, 01/20/20 13:55:00 EST, Height, 90.9, kg, 12/10/19 7:01:00 EST, Dry Weight Start Date: 04/20/20 Status: OrderedBasaglar KwikPen 100 units/mL subcutaneous solution = 30 units, Subcutaneous Infusion, Daily at bedtime, # 15 mL, 5 Refills, Maintenance, 02/18/20 9:59:00 EDT, [facility], 149.86, cm, 01/20/20 13:55:00 EST, [...] 6 Refills, Maintenance, 07/24/20 14:34:00 EDT, Aerosol, [facility], 149.86, cm, 07/24/20 14:16:00 EDT, Height, 90.9, kg, 12/10/19 7:01:00 EST, Dry Weight Start Date: 07/24/20 Status: OrderedFLUoxetine 20 mg oral capsule 20 mg, 1, capsule, By Mouth, Daily, # 90 capsule, Refills 1, Tot. Refills 1, Maintenance, 08/12/20 13:03:00 EDT, Route to Pharmacy Electronically, [facility], 149.86, cm, 07/24/20 14:16:00 EDT, Height, 90.9, kg, 12/10/19 7:01:00 EST, Dry We... Start Date: 08/12/20 Status: Orderedlosartan 100 mg oral tablet 1 tablet = 100 mg, By Mouth, Daily, # 90 tablet, 3 Refills, Maintenance, 02/10/20 14:08:00 EDT, Tablet, [facility], 149.86, cm, 01/20/20 13:55:00 EST, Height, 90.9, kg, 12/10/19 7:01:00 EST,Dry Weight Start Date: 02/10/20 Status: OrderedmetFORMIN 500 mg oral tablet 1 tablet = 500 mg, By Mouth, 2 times a day, # 180 tablet, 0 Refills, Maintenance, 08/12/20 13:03:00 EDT, Tablet, [facility], 149.86, cm, 07/24/20 14:16:00 EDT, Height, 90.9, kg, 12/10/19 7:01:00 EST, Dry Weight Start Date: 08/12/20 Status: Orderedmetoprolol 25 mg oral tablet 25 mg, 1, tablet, By Mouth, 2 times a day, # 180 tablet, Refills 0, Tot. Refills 0, Maintenance, 07/20/20 11:32:00 EDT, Route to Pharmacy Electronically, [facility], 149.86, cm, 06/23/20 10:59:00 EDT, Height, 90.9, kg, 12/10/19 7:01:00 EST,... Start Date: 07/20/20 Stop Date: 09/18/20 Status: Orderedoxybutynin 10 mg/24 hr oral tablet, extended release 1 tablet = 10 mg, By Mouth, Daily, # 30 tablet, 11 Refills, Maintenance, 03/19/20 16:20:00 EDT, ER Tablet, [facility], 149.86, cm, 01/20/20 13:55:00 EST, Height, 90.9, kg, 12/10/19 7:01:00 EST, Dry Weight Start Date: 03/19/20 Status: OrderedPEN NEEDLES [id number] PEN NEEDLES [id number], See Instructions, # 100 each, Refills 11, Tot. Refills 11, Maintenance, USE DIRECTED WITH INSULIN DAILY FAX [phone], 04/30/20 12:29:00 EDT, Compound, 149.86, cm, 01/20/20 13:55:00 EST, Height, 90.9, kg, 12/10/19 7:01:00 EST,... Start Date: 04/30/20 Status: OrderedPlavix 75 mg oral tablet 75 mg, 1, tablet, By Mouth, Daily, # 30 tablet, Refills 11, Tot. Refills 11, Maintenance, 03/19/20 16:21:00 EDT, Route to Pharmacy Electronically, [facility], 149.86, cm, 01/20/20 13:55:00 EST, Height, 90.9, kg, 12/10/19 7:01:00 EST, Dry We... Start Date: 03/19/20 Stop Date: 03/14/21 Status: OrderedPlenvu oral powder for reconstitution See Instructions, complete prep on day before procedure, # 1,000 mL, 0 Refills, Maintenance, 08/18/20 11:35:00 EDT, [facility], FYI-procedure will not be booked until November 2020, complete prep on day before procedure, 149.86, cm, 08/18/20... Start Date: 08/18/20 Status: OrderedProAir HFA 90 mcg/inh inhalation aerosol with adapter 2, puffs, Inhalation, Every 6 hours, PRN, # 8.5 Gm, Refills 1, Tot. Refills 1, Maintenance, 06/23/2011:27:00 EDT, Aerosol, Route to Pharmacy Electronically, [id number], [facility], 149.86, cm, 06/23/20 10:59:00 ED... Start Date: 06/23/20 Status: OrderedVentolin HFA 108 mcg/inh inhalation aerosol with adapter 2 puffs, Inhalation, Every 6 hours, # 1 each, 3 Refills, Maintenance, 06/23/20 16:10:00 EDT, [facility], 149.86, cm, 06/23/20 10:59:00 EDT, Height, [...] BE TAKEN IN ADDITION TO LIPITOR FAX [phone], # 90 tablet, 1 Refills, Maintenance, 03/24/20 10:29:00 EDT, Tablet, [facility], 149.86, cm, 01/20/20 13:55:00 EST, [...] gait(Confirmed) Active Vertigo(Confirmed) Active 1Status post excision [id number] [id number] chest CT 2014.4colo 06997PBP 32425dpcc 83921Adsobbixp Knees and Back Social History Social History Type Response Smoking Status Former smoker; Tobacco user in household: No; Other: Quit this June 2015; entered on: 08/17/16 Sex
--- OUTSIDE RECORDS SUMMARY | 2023-01-09 20:55 | XMS_ITS | Continuity of Care Document ---
:1945 Author Organization [facility] Address [address] [place] [address]- Care Team Providers Name Role Phone Columba WATSON, Nahid [place] Primary Care Physician [facility] Date[facility]): 04/29/21 - 05/29/[address] [address]- Allergies, Adverse Reactions, Alerts Substance Reaction Severity [...] 1Result Comment: [10/19/2017] pt had done @ [facility] high [id number] History: [id number] Comment: [09/15/2015] HIGH [id number] Comment: [07/28/2017] AT [facility] Medications amLODIPine 5 mg oral tablet 5 mg, 1, tablet, By Mouth, Daily, # 90 tablet, Refills 1, Tot. Refills 1, Maintenance, 12/31/20 13:23:00 EST, Route to Pharmacy Electronically, [facility], Partial fill upon patient request if the prescription is for a schedule II opioid . Start Date: 12/31/20 Status: Orderedaspirin 81 mg oral tablet, chewable 81 mg, 1, tablet, By Mouth, Daily, # 30 tablet, Refills 1, Tot. Refills 1, Maintenance, 11/02/19 14:07:39 EST, Route to Pharmacy Electronically, [facility], 149.86, cm, 11/02/19 12:12:42 EST, Height, 90.2, kg, 10/29/19 15:57:27 EST, Dry Weight Start Date: 11/02/19 Stop Date: 01/01/20 Status: Orderedatorvastatin 80 mg oral tablet 1 tablet = 80 mg, By Mouth, Daily, # 90 tablet, 1 Refills, Maintenance, 04/26/21 9:55:00 EDT, Tablet, [facility], 150, cm, 04/21/21 15:26:00 EDT, Height, 91, kg, 04/19/21 14:09:00 EDT, Dry Weight Start Date: 04/26/21 Status: OrderedBasaglar KwikPen 100 units/mL subcutaneous solution = 30 units, Subcutaneous Infusion, Daily at bedtime, # 15 mL, 5 Refills, Maintenance, 03/09/21 13:30:00 EDT, [facility], 150, cm, 12/31/20 12:51:00 EST, [...] 01/30/21 14:39:00 EST, Route to Pharmacy Electronically, [facility], 150, cm, 12/31/20 12:51:00 EST,Height, 90.9, kg, 10/09/20 4:37:00 EST, Dry Weight Start Date: 01/30/21 Status: Orderedlosartan 100 mg oral tablet 1 tablet, By Mouth, Daily, # 90 tablet, 1 Refills, Maintenance, 05/18/21 10:58:00 EDT, [facility], 150, cm, 04/21/21 15:26:00 EDT, Height, 91, kg, 04/19/21 14:09:00 EDT, Dry Weight Start Date: 05/18/21 Status: OrderedmetFORMIN 500 mg oral tablet 1 tablet = 500 mg, By Mouth, 2 times a day, # 180 tablet, 0 Refills, Maintenance, 03/19/21 15:48:00 EDT, Tablet, [facility], 150, cm, 12/31/20 12:51:00 EST, Height, 90.9, kg, 10/09/20 4:37:00 EST, Dry Weight Start Date: 03/19/21 Status: Orderedmetoprolol 25 mg oral tablet 25 mg, 1, tablet, By Mouth, 2 times a day, # 180 tablet, Refills 3, Tot. Refills 3, Maintenance, 04/22/21 12:59:00 EDT, Route to Pharmacy Electronically, [facility], 150, cm, 04/21/21 15:26:00 EDT, Height, [...] Supply Start Date: 10/12/20 Status: OrderedPEN NEEDLES [id number] PEN NEEDLES [id number], See Instructions, # 100 each, Refills 11, Tot. Refills 11, Maintenance, USE DIRECTED WITH INSULIN DAILY FAX [phone], 03/19/21 15:48:00 EDT, Compound, 150, cm, 12/31/20 12:51:00EST, Height, 90.9, kg, 10/09/20 4:37:00 EST, Dry... Start Date: 03/19/21 Status: OrderedPlavix 75 mg oral tablet 75 mg, 1, tablet, By Mouth, Daily, # 30 tablet, Refills 11, Tot. Refills 11, Maintenance, 03/22/21 12:29:00 EDT, Route to Pharmacy Electronically, [facility], 150, cm, 12/31/20 12:51:00 EST,Height, 90.9, kg, 10/09/20 4:37:00 EST, Dry Weight Start Date: 03/22/21 Stop Date: 03/17/22 Status: OrderedProAir HFA 90 mcg/inh inhalation aerosol with adapter 2, puffs, Inhalation, Every 6 hours, PRN, # 8.5 Gm, Refills 1, Tot. Refills 1, Maintenance, 06/23/2011:27:00 EDT, Aerosol, Route to Pharmacy Electronically, [id number], [facility], 149.86, cm, 06/23/20 10:59:00 ED... Start Date: 06/23/20 Status: OrderedWheeled walker with seat Wheeled walker with seat, See Instructions, # 1 each, Refills 0, Tot. Refills 0, Maintenance, DX: Unsteady balance, 07/16/15 13:49:32, Compound Start Date: 07/16/15 Status: OrderedZetia 10 mg oral tablet 1 tablet = 10 mg, By Mouth, Daily, TO BE TAKEN IN ADDITION TO LIPITOR FAX [phone], # 90 tablet, 0 Refills, Maintenance, 03/19/21 15:48:00 EDT, Tablet, [facility], 150, cm, 12/31/20 12:51:00EST, Height, 90.9, kg, 10/09/20 4:37:00 EST DLila. Start Date: 03/19/21 Status: Ordered Problem List Condition Effective Dates Status Health Status Informant Non-ST elevation [place] Active (NSTEMI)(Confirmed) Mild anemia(Confirmed) Active Autonomic neuropathy(Confirmed) [...] gait(Confirmed) Active Vertigo(Confirmed) Active 1Status post excision [id number] 30612Mm chest CT 2014.4colo 13257JRW 50954bkch 45070Sabmpiwla Knees and Back Social History Social History Type Response Smoking Status Former smoker; Tobacco user in household: No; Other: Quit this June 2015; entered on: 08/17/16 Sex
--- OUTSIDE RECORDS SUMMARY | 2023-01-09 20:55 | XMS_ITS | Continuity of Care Document ---
:[address] [facility] Address [address] [place] [address]- Care Team Providers Name Role Phone Columba WATSON, Nahid [place] Primary Care Physician [facility]): 02/18[facility]21 - 03/20/21 [facility] [address] [place] [address]- Allergies, Adverse Reactions, Alerts Substance Reaction Severity Status Adhesive Bandage Active Bee Stings SWELLING AT SITE ONLY Active Percocet Active Immunizations Given and Recorded Vaccine Date Status Refusal Reason SARS-CoV-2 (COVID-19) mRNA BNT-162b2 vac 12/28/20 Recorde [...] 1Result Comment: [10/19/2017] pt had done @ [facility] high [id number] History: [id number] Comment: [09/15/2015] HIGH [id number] Comment: [07/28/2017] [facility] Medications albuterol-ipratropium 3 mg-0.5 mg/3 ml inhalation solution 3 mL, Neb, 4 times a day, PRN Wheezing/Shortness of Breath, # 90 mL, 0 Refills, Maintenance, 10/12/20 13:21:00 EST, Inhalation Solution, Partial fill upon patient request Start Date: 10/12/20 Status: OrderedamLODIPine 5 mg oral tablet 5 mg, 1, tablet, By Mouth, Daily, # 90 tablet, Refills 1, Tot. Refills 1, Maintenance, 12/31/20 13:23:00 EST, Route to Pharmacy Electronically, [facility], Partial fill upon patient request if the prescription is for a schedule II opioid drLila. Start Date: 12/31/20 Status: Orderedaspirin 81 mg oral tablet, chewable 81 mg, 1, tablet, By Mouth, Daily, # 30 tablet, Refills 1, Tot. Refills 1, Maintenance, 11/02/19 14:07:39 EST, Route to Pharmacy Electronically, [facility], 149.86, cm, 11/02/19 12:12:42 EST, Height, 90.2, kg, 10/29/19 15:57:27 EST, Dry Weight Start Date: 11/02/19 Stop Date: 01/01/20 Status: Orderedatorvastatin 80 mg oral tablet 1 tablet = 80 mg, By Mouth, Daily, # 90 tablet, 1 Refills, Maintenance, 10/26/20 11:45:00 EST, Tablet, [facility], 150, cm, 10/23/20 14:48:00 EST, Height, 90.9, kg, 10/09/20 4:37:00 EST, DryWeight Start Date: 10/26/20 Status: OrderedBasaglar KwikPen 100 units/mL subcutaneous solution = 30 units, Subcutaneous Infusion, Daily at bedtime, # 15 mL, 5 Refills, Maintenance, 03/09/21 13:30:00 EDT, [facility], 150, cm, 12/31/20 12:51:00 EST, [...] 6 Refills, Maintenance, 07/24/20 14:34:00 EDT, Aerosol, [facility], 149.86, cm, 07/24/20 14:16:00 EDT, Height, 90.9, kg, 12/10/19 7:01:00 EST, Dry Weight Start Date: 07/24/20 Status: OrderedFLUoxetine 20 mg oral capsule 20 mg, 1, capsule, By Mouth, Daily, # 90 capsule, Refills 1, Tot. Refills 1, Maintenance, 01/30/21 14:39:00 EST, Route to Pharmacy Electronically, [facility], 150, cm, 12/31/20 12:51:00 EST,Height, 90.9, kg, 10/09/20 4:37:00 EST, Dry Weight Start Date: 01/30/21 Status: Orderedlosartan 100 mg oral tablet 1 tablet = 100 mg, By Mouth, Daily, # 90 tablet, 0 Refills, Maintenance, 01/30/21 14:42:00 EST, Tablet, [facility], 150, cm, 12/31/20 12:51:00 EST, Height, 90.9, kg, 10/09/20 4:37:00 EST, Dry Weight Start Date: 01/30/21 Status: OrderedmetFORMIN 500 mg oral tablet 1 tablet = 500 mg, By Mouth, 2 times a day, # 180 tablet, 0 Refills, Maintenance, 03/19/21 15:48:00 EDT, Tablet, [facility], 150, cm, 12/31/20 12:51:00 EST, Height, 90.9, kg, 10/09/20 4:37:00 EST, Dry Weight Start Date: 03/19/21 Status: Orderedmetoprolol 25 mg oral tablet 25 mg, 1, tablet, By Mouth, 2 times a day, # 180 tablet, Refills 0, Tot. Refills 0, Maintenance, 01/30/21 14:42:00 EST, Route to Pharmacy Electronically, [facility], 150, cm, 12/31/20 12:51:00 EST, Height, 90.9, kg, 10/09/20 4:37:00 EST, Dr... Start Date: 01/30/21 Status: Orderednebulizer nebulizer, See Instructions, # 1 [...] = 10 mg, By Mouth, Daily, # 90 tablet, 1 Refills, Maintenance, 03/19/21 15:48:00 EDT, ER Tablet, [facility], 150, cm, 12/31/20 12:51:00 EST, Height, 90.9, kg, 10/09/20 4:37:00 EST, Dry Weight Start Date: 03/19/21 Status: OrderedPEN NEEDLES [id number] PEN NEEDLES [id number], See Instructions, # 100 each, Refills 11, Tot. Refills 11, Maintenance, USE DIRECTED WITH INSULIN DAILY FAX [phone], 03/19/21 15:48:00 EDT, Compound, 150, cm, 12/31/20 12:51:00EST, Height, 90.9, kg, 10/09/20 4:37:00 EST, Dry... Start Date: 03/19/21 Status: OrderedPlavix 75 mg oral tablet 75 mg, 1, tablet, By Mouth, Daily, # 30 tablet, Refills 11, Tot. Refills 11, Maintenance, 03/19/20 16:21:00 EDT, Route to Pharmacy Electronically, [facility], 149.86, cm, 01/20/20 13:55:00 EST, Height, 90.9, kg, 12/10/19 7:01:00 EST, Dry We... Start Date: 03/19/20 Stop Date: 03/14/21 Status: OrderedProAir HFA 90 mcg/inh inhalation aerosol with adapter 2, puffs, Inhalation, Every 6 hours, PRN, # 8.5 Gm, Refills 1, Tot. Refills 1, Maintenance, 06/23/2011:27:00 EDT, Aerosol, Route to Pharmacy Electronically, [id number], [facility], 149.86, cm, 06/23/20 10:59:00 ED... Start Date: 06/23/20 Status: OrderedVentolin HFA 108 mcg/inh inhalation aerosol with adapter 2 puffs, Inhalation, Every 6 hours, # 1 each, 3 Refills, Maintenance, 06/23/20 16:10:00 EDT, [facility], 149.86, cm, 06/23/20 10:59:00 EDT, Height, [...] BE TAKEN IN ADDITION TO LIPITOR FAX [phone], # 90 tablet, 0 Refills, Maintenance, 03/19/21 15:48:00 EDT, Tablet, [facility], 150, cm, 12/31/20 12:51:00EST, Height, 90.9, kg, 10/09/20 4:37:00 EST, D... Start Date: 03/19/21 Status: Ordered Problem List Condition Effective Dates Status Health Status Informant Non-ST elevation [place] Active (NSTEMI)(Confirmed) Mild anemia(Confirmed) Active Autonomic neuropathy(Confirmed) [...] gait(Confirmed) Active Vertigo(Confirmed) Active 1Status post excision [id number] 90889Ub chest CT 2015.4colo 94783HJE 49742uopk 80422Ajfstpecq Knees and Back Social History Social History Type Response Smoking Status Former smoker; Tobacco user in household: No; Other: Quit this June 2015; entered on: 08/17/16 Sex
--- OUTSIDE RECORDS SUMMARY | 2023-01-09 20:55 | XMS_ITS | Continuity of Care Document ---
:1945 Author Organization [facility] Address [address] [place] [address]- Care Team Providers Name Role Phone Columba WATSON, Nahid [place] Primary Care Physician [facility] - 11/25/20 [facility] [address] [place] [address]- Allergies, Adverse Reactions, Alerts Substance Reaction Severity [...] had done @ [facility] high [id number] History: [id number] Comment: [09/15/2015] HIGH [id number] Comment: [07/28/2017] AT [facility] Medications albuterol-ipratropium 3 mg-0.5 mg/3 ml inhalation [...] 01/20/20 14:18:00 EST, Route to Pharmacy Electronically, [facility], 149.86, cm, 01/20/20 13:55:00 EST, Height, 90.9, kg, 12/10/19 7:01:00 EST, Dry Weight Start Date: 01/20/20 Status: Orderedaspirin 81 mg oral tablet, chewable 81 mg, 1, tablet, By Mouth, Daily, # 30 tablet, Refills 1, Tot. Refills 1, Maintenance, 11/02/19 14:07:39 EST, Route to Pharmacy Electronically, [facility], 149.86, cm, 11/02/19 12:12:42 EST, Height, 90.2, kg, 10/29/19 15:57:27 EST, Dry Weight Start Date: 11/02/19 Stop Date: 01/01/20 Status: Orderedatorvastatin 80 mg oral tablet 1 tablet = 80 mg, By Mouth, Daily, # 90 tablet, 1 Refills, Maintenance, 10/26/20 11:45:00 EST, Tablet, [facility], 150, cm, 10/23/20 14:48:00 EST, Height, 90.9, kg, 10/09/20 4:37:00 EST, DryWeight Start Date: 10/26/20 Status: OrderedBasaglar KwikPen 100 units/mL subcutaneous solution = 30 units, Subcutaneous Infusion, Daily at bedtime, # 15 mL, 5 Refills, Maintenance, 02/18/20 9:59:00 EDT, [facility], 149.86, cm, 01/20/20 13:55:00 [...] 6 Refills, Maintenance, 07/24/20 14:34:00 EDT, Aerosol, [facility], 149.86, cm, 07/24/20 14:16:00 EDT, Height, 90.9, kg, 12/10/19 7:01:00 EST, Dry Weight Start Date: 07/24/20 Status: OrderedFLUoxetine 20 mg oral capsule 20 mg, 1, capsule, By Mouth, Daily, # 90 capsule, Refills 1, Tot. Refills 1, Maintenance, 08/12/20 13:03:00 EDT, Route to Pharmacy Electronically, [facility], 149.86, cm, 07/24/20 14:16:00 [...] 3 Refills, Maintenance, 02/10/20 14:08:00 EDT, Tablet, [facility], 149.86, cm, 01/20/20 13:55:00 EST, Height, 90.9, kg, 12/10/19 7:01:00 EST,Dry Weight Start Date: 02/10/20 Status: OrderedmetFORMIN 500 mg oral tablet 1 tablet = 500 mg, By Mouth, 2 times a day, # 180 tablet, 0 Refills, Maintenance, 11/16/20 14:50:00 EST, Tablet, [facility], 150, cm, 10/23/20 14:48:00 EST, Height, 90.9, kg, 10/09/20 4:37:00 EST, Dry Weight Start Date: 11/16/20 Status: Orderedmetoprolol 25 mg oral tablet 25 mg, 1, tablet, By Mouth, 2 times a day, # 180 tablet, Refills 0, Tot. Refills 0, Maintenance, 10/26/20 11:45:00 EST, Route to Pharmacy Electronically, [facility], 150, cm, 10/23/20 14:48:00 EST, [...] Refills, Maintenance, 03/19/20 16:20:00 EDT, ER Tablet, [facility], 149.86, cm, 01/20/20 13:55:00 EST, Height, 90.9, kg, 12/10/19 7:01:00 EST, Dry Weight Start Date: 03/19/20 Status: OrderedPEN NEEDLES [id number] PEN NEEDLES 10BV0AQ, See Instructions, # 100 each, Refills 11, Tot. Refills 11, Maintenance, USE DIRECTED WITH INSULIN DAILY FAX [phone], 04/30/20 12:29:00 EDT, Compound, 149.86, cm, 01/20/20 13:55:00 EST, Height, 90.9, kg, 12/10/19 7:01:00 EST,... Start Date: 04/30/20 Status: OrderedPlavix 75 mg oral tablet 75 mg, 1, tablet, By Mouth, Daily, # 30 tablet, Refills 11, Tot. Refills 11, Maintenance, 03/19/20 16:21:00 EDT, Route to Pharmacy Electronically, [facility], 149.86, cm, 01/20/20 13:55:00 EST, Height, 90.9, kg, 12/10/19 7:01:00 EST, Dry We... Start Date: 03/19/20 Stop Date: 03/14/21 Status: OrderedProAir HFA 90 mcg/inh inhalation aerosol with adapter 2, puffs, Inhalation, Every 6 hours, PRN, # 8.5 Gm, Refills 1, Tot. Refills 1, Maintenance, 06/23/2011:27:00 EDT, Aerosol, Route to Pharmacy Electronically, [id number], [facility], 149.86, cm, 06/23/20 10:59:00 ED... Start Date: 06/23/20 Status: OrderedVentolin HFA 108 mcg/inh inhalation aerosol with adapter 2 puffs, Inhalation, Every 6 hours, # 1 each, 3 Refills, Maintenance, 06/23/20 16:10:00 EDT, [facility], 149.86, cm, 06/23/20 10:59:00 EDT, Height, [...] BE TAKEN IN ADDITION TO LIPITOR FAX [phone], # 90 tablet, 1 Refills, Maintenance, 09/11/20 14:24:00 EDT, Tablet, [facility], 149.86, cm, 08/28/20 9:59:00 EDT, Height, 90.9, kg, 12/10/19 7:01:00 EST,... Start Date: 09/11/20 Status: Ordered Problem List Condition Effective Dates Status Health Status Informant Non-ST elevation [place] Active (NSTEMI)(Confirmed) Mild anemia(Confirmed) Active Autonomic neuropathy(Confirmed) [...] gait(Confirmed) Active Vertigo(Confirmed) Active 1Status post excision [id number] 34997Xc chest CT 2014.4colo 58194BHZ 83548ioeb 53596Cguublruq Knees and Back Social History Social History Type Response Smoking Status Former smoker; Tobacco user in household: No; Other: Quit this June 2015; entered on: 08/17/16 Sex
--- OUTSIDE RECORDS SUMMARY | 2023-01-09 20:55 | XMS_ITS | Continuity of Care Document ---
:1945 Author Organization [facility] Address [address] [place] [address]- Care Team Providers Name Role Phone Nahid Waterman MD Primary Care Physician Encounter [facility] Date(s): 03/24/22 - 04/23/22 [facility] [address] [place] [address]- Allergies, Adverse Reactions, Alerts Substance Reaction Severity [...] [10/19/2017] pt had done @ [facility] [id number] History: [id number] Comment: [09/15/2015] HIGH [id number] Comment: [07/28/2017] AT [facility] amLODIPine 2.5 mg oral tablet 2.5 mg, 1, tablet, By Mouth, Daily, # 90 tablet, Refills 1, Tot. Refills 1, Maintenance, 07/20/21 9:21:00 EDT, Route to Pharmacy Electronically, [facility], Partial fill upon patient requestif the prescription is for a schedule II opioid d... Start Date: 07/20/21 Status: Orderedaspirin 81 mg oral tablet, chewable 81 mg, 1, tablet, By Mouth, Daily, # 30 tablet, Refills 1, Tot. Refills 1, Maintenance, 11/02/19 14:07:39 EST, Route to Pharmacy Electronically, [facility], 149.86, cm, 11/02/19 12:12:42 EST, Height, 90.2, kg, 10/29/19 15:57:27 EST, Dry Weight Start Date: 11/02/19 Stop Date: 01/01/20 Status: Orderedatorvastatin 80 mg oral tablet 1 tablet = 80 mg, By Mouth, Daily, # 90 tablet, 1 Refills, Maintenance, 01/24/22 14:39:00 EST, Tablet, [facility], 150, cm, 08/19/21 13:24:00 EDT, Height, 91, kg, 04/19/21 14:09:00 EDT, Dry Weight Start Date: 01/24/22 Status: OrderedBasaglar KwikPen 100 units/mL subcutaneous solution = 30 units, Subcutaneous Infusion, Daily at bedtime, # 15 mL, 5 Refills, Maintenance, 07/20/21 9:21:00 EDT, [facility], 150, cm, 07/20/21 9:00:00 EDT, Height, 91, kg, 04/19/21 14:09:00 EDT, Dry Weight Start Date: 07/20/21 Stop Date: 01/16/22 Status: Orderedclopidogrel 75 mg oral tablet 75 mg, 1, tablet, By Mouth, Daily, # 90 tablet, Refills 4, Tot. Refills 4, Maintenance, 03/23/22 8:44:00 EDT, Route to Pharmacy Electronically, [facility], Partial fill upon patient [...] Maintenance, 02/11/22 21:27:00EDT, Route to Pharmacy Electronically, [facility], 150, cm, 08/19/21 13:24:00 EDT, Height, 91, kg, 04/19/21 14:09:00 EDT, Dry Weight Start Date: 02/11/22 Status: Orderedlosartan 100 mg oral tablet 1 tablet, By Mouth, Daily, # 90 tablet, 0 Refills, Maintenance, 02/11/22 21:27:00 EDT, [facility], 150, cm, 08/19/21 13:24:00 EDT, Height, 91, kg, 04/19/21 14:09:00 EDT, Dry Weight Start Date: 02/11/22 Status: OrderedmetFORMIN 500 mg oral tablet 1 tablet = 500 mg, By Mouth, 2 times a day, # 180 tablet, 1 Refills, Maintenance, 02/17/22 14:09:00 EDT, Tablet, [facility], 150, cm, 02/17/22 13:07:00 EDT, Height, 91, kg, 04/19/21 14:09:00EDT, Dry Weight Start Date: 02/17/22 Status: Orderedmetoprolol 25 mg oral tablet 25 mg, 1, tablet, By Mouth, 2 times a day, # 180 tablet, Refills 3, Tot. Refills 3, Maintenance, 07/20/21 9:21:00 EDT, Route to Pharmacy Electronically, [facility], 150, cm, 07/20/21 9:00:00EDT, [...] Supply Start Date: 10/12/20 Status: OrderedPEN NEEDLES [id number] PEN NEEDLES 25KC1YP, See Instructions, # 100 each, Refills 3, Tot. Refills 3, Maintenance, USE DIRECTED WITH INSULIN DAILY FAX [phone], 07/01/21 13:25:00 EDT, Compound, 150, cm, 06/15/21 14:56:00 EDT, Height, 91, kg, 04/19/21 14:09:00 EDT, Dry We... Start Date: 07/01/21 Status: OrderedProAir HFA 90 mcg/inh inhalation aerosol with adapter 2, puffs, Inhalation, Every 6 hours, PRN, # 8.5 Gm, Refills 1, Tot. Refills 1, Maintenance, 06/23/2011:27:00 EDT, Aerosol, Route to Pharmacy Electronically, [id number], [facility], 149.86, cm, 06/23/20 [...] BE TAKEN IN ADDITION TO LIPITOR FAX [phone], # 90 tablet, 1 Refills, Maintenance, 03/09/22 15:43:00 EDT, Tablet, [facility], 150, cm, 02/22/22 8:22:00 EDT, [...] infarction (NSTEMI)(Confirmed) Hypertension(Confirmed) Active Urinary frequency(Confirmed) Active long term (current) use of Active insulin(Confirmed) Depression, major, in Active remission(Confirmed) Sleep apnea(Confirmed) Active Osteoarthritis(Confirmed)7 Active Hypercholesterolemia(Confirmed) Active Resting tremor(Confirmed) Active Severe obesity(Confirmed) Active Shoulder pain, right(Confirmed) Active Type 2 diabetes mellitus(Confirmed) Active Unsteady gait(Confirmed) Active Vertigo(Confirmed) Active 1Status post excision [id number] [id number] chest CT 2014.4colo 67363QWZ 74181thnz 83362Iifwbtijh Knees and Back Social History Social History Type Response Smoking Status Former smoker; Tobacco user in household: No; Other: Quit this June 2015; entered on: 08/17/16 Sex
--- OUTSIDE RECORDS SUMMARY | 2023-01-09 20:55 | XMS_ITS | Continuity of Care Document ---
:1945 Author Organization [facility] Address [address] [place] [address]- Care Team Providers Name Role Phone Columba WATSON, Nahid Washingotn Primary Care Physician Encounter [facility] Date(s): 12/25/20 - 01/24/21 [facility] [address] [place] [address]- Allergies, Adverse Reactions, Alerts Substance Reaction Severity [...] 1Result Comment: [10/19/2017] pt had done @ [facility] [id number] History: [id number] Comment: [09/15/2015] HIGH [id number] Comment: [07/28/2017] AT [facility] Medications albuterol-ipratropium 3 mg-0.5 mg/3 ml [...] 12/31/20 13:23:00 EST, Route to Pharmacy Electronically, [facility], Partial fill upon patient request if the prescription is for a schedule II opioid drLila. Start Date: 12/31/20 Status: Orderedaspirin 81 mg oral tablet, chewable 81 mg, 1, tablet, By Mouth, Daily, # 30 tablet, Refills 1, Tot. Refills 1, Maintenance, 11/02/19 14:07:39 EST, Route to Pharmacy Electronically, [facility], 149.86, cm, 11/02/19 12:12:42 EST, Height, 90.2, kg, 10/29/19 15:57:27 EST, Dry Weight Start Date: 11/02/19 Stop Date: 01/01/20 Status: Orderedatorvastatin 80 mg oral tablet 1 tablet = 80 mg, By Mouth, Daily, # 90 tablet, 1 Refills, Maintenance, 10/26/20 11:45:00 EST, Tablet, [facility], 150, cm, 10/23/20 14:48:00 EST, Height, 90.9, kg, 10/09/20 4:37:00 EST, DryWeight Start Date: 10/26/20 Status: OrderedBasaglar KwikPen 100 units/mL subcutaneous solution = 30 units, Subcutaneous Infusion, Daily at bedtime, # 15 mL, 5 Refills, Maintenance, 02/18/20 9:59:00 EDT, [facility], 149.86, cm, 01/20/20 13:55:00 EST, [...] 6 Refills, Maintenance, 07/24/20 14:34:00 EDT, Aerosol, [facility], 149.86, cm, 07/24/20 14:16:00 EDT, Height, 90.9, kg, 12/10/19 7:01:00 EST, Dry Weight Start Date: 07/24/20 Status: OrderedFLUoxetine 20 mg oral capsule 20 mg, 1, capsule, By Mouth, Daily, # 90 capsule, Refills 1, Tot. Refills 1, Maintenance, 08/12/20 13:03:00 EDT, Route to Pharmacy Electronically, [facility], 149.86, cm, 07/24/20 14:16:00 EDT, Height, 90.9, kg, 12/10/19 7:01:00 EST, Dry We... Start Date: 08/12/20 Status: Orderedlosartan 100 mg oral tablet 1 tablet = 100 mg, By Mouth, Daily, # 90 tablet, 3 Refills, Maintenance, 02/10/20 14:08:00 EDT, Tablet, [facility], 149.86, cm, 01/20/20 13:55:00 EST, Height, 90.9, kg, 12/10/19 7:01:00 EST,Dry Weight Start Date: 02/10/20 Status: OrderedmetFORMIN 500 mg oral tablet 1 tablet = 500 mg, By Mouth, 2 times a day, # 180 tablet, 0 Refills, Maintenance, 11/16/20 14:50:00 EST, Tablet, [facility], 150, cm, 10/23/20 14:48:00 EST, Height, 90.9, kg, 10/09/20 4:37:00 EST, Dry Weight Start Date: 11/16/20 Status: Orderedmetoprolol 25 mg oral tablet 25 mg, 1, tablet, By Mouth, 2 times a day, # 180 tablet, Refills 0, Tot. Refills 0, Maintenance, 10/26/20 11:45:00 EST, Route to Pharmacy Electronically, [facility], 150, cm, 10/23/20 14:48:00 EST, Height, 90.9, kg, 10/09/20 4:37:00 EST, Dr... Start Date: 10/26/20 Status: Orderednebulizer nebulizer, See [...] Refills, Maintenance, 03/19/20 16:20:00 EDT, ER Tablet, [facility], 149.86, cm, 01/20/20 13:55:00 EST, Height, 90.9, kg, 12/10/19 7:01:00 EST, Dry Weight Start Date: 03/19/20 Status: OrderedPEN NEEDLES [id number] PEN NEEDLES [id number], See Instructions, # 100 each, Refills 11, Tot. Refills 11, Maintenance, USE DIRECTED WITH INSULIN DAILY FAX [phone], 04/30/20 12:29:00 EDT, Compound, 149.86, cm, 01/20/20 13:55:00 EST, Height, 90.9, kg, 12/10/19 7:01:00 EST,... Start Date: 04/30/20 Status: OrderedPlavix 75 mg oral tablet 75 mg, 1, tablet, By Mouth, Daily, # 30 tablet, Refills 11, Tot. Refills 11, Maintenance, 03/19/20 16:21:00 EDT, Route to Pharmacy Electronically, [facility], 149.86, cm, 01/20/20 13:55:00 EST, Height, 90.9, kg, 12/10/19 7:01:00 EST, Dry We... Start Date: 03/19/20 Stop Date: 03/14/21 Status: OrderedProAir HFA 90 mcg/inh inhalation aerosol with adapter 2, puffs, Inhalation, Every 6 hours, PRN, # 8.5 Gm, Refills 1, Tot. Refills 1, Maintenance, 06/23/2011:27:00 EDT, Aerosol, Route to Pharmacy Electronically, [id number], [facility], 149.86, cm, 06/23/20 10:59:00 ED... Start Date: 06/23/20 Status: OrderedVentolin HFA 108 mcg/inh inhalation aerosol with adapter 2 puffs, Inhalation, Every 6 hours, # 1 each, 3 Refills, Maintenance, 06/23/20 16:10:00 [facility], 149.86, cm, 06/23/20 10:59:00 [...] BE TAKEN IN ADDITION TO LIPITOR FAX [phone], # 90 tablet, 1 Refills, Maintenance, 09/11/20 14:24:00 EDT, Tablet, [facility], 149.86, cm, 08/28/20 9:59:00 EDT, [...] gait(Confirmed) Active Vertigo(Confirmed) Active 1Status post excision [id number] 81069Rs chest CT 2015.4colo 56095BHD 34208uzip 34481Ccthzialu Knees and Back Social History Social History Type Response Smoking Status Former smoker; Tobacco user in household: No; Other: Quit this June 2015; entered on: 08/17/16 Sex
--- OUTSIDE RECORDS SUMMARY | 2023-01-09 20:55 | XMS_ITS | Continuity of Care Document ---
:1945 Author Organization [facility] Address [address] [place] [address]- Care Team Providers Name Role Phone Nahid Waterman MD Primary Care Physician Encounter [facility] [place] [facility] Date(s): 01/20/20 - 01/27/20 [facility] [address] [place] [address]- [facility] Encounter Diagnosis 2-vessel coronary artery disease (Discharge Diagnosis) - 01/20/20 BMI 40.0-44.9, adult (Discharge Diagnosis) - 01/20/20 COPD (chronic obstructive pulmonary disease) (Discharge Diagnosis) - 01/20/20 Diabetic retinopathy (Discharge Diagnosis) - 01/20/20 Hypercholesterolemia (Discharge Diagnosis) - 01/20/20 Hypertension (Discharge Diagnosis) - 01/20/20 Type 2 diabetes mellitus (Discharge Diagnosis) - 01/20/20 Attending Physician: Nahid Waterman MD Allergies, Adverse [...] [10/19/2017] pt had done @ [facility] [id number] History: [id number] Comment: [09/15/2015] HIGH [id number] Comment: [07/28/2017] AT [facility] Medications amLODIPine 10 mg oral tablet 10 mg, 1, tablet, By Mouth, Daily, # 90 tablet, Refills 3, Tot. Refills 3, Maintenance, 01/20/20 14:18:00 EST, Route to Pharmacy Electronically, [facility], 149.86, cm, 01/20/20 13:55:00 EST, Height, 90.9, kg, 12/10/19 7:01:00 EST, Dry Weight Start Date: 01/20/20 Status: Orderedaspirin 81 mg oral tablet, chewable 81 mg, 1, tablet, By Mouth, Daily, # 30 tablet, Refills 1, Tot. Refills 1, Maintenance, 11/02/19 14:07:39 EST, Route to Pharmacy Electronically, [facility], 149.86, cm, 11/02/19 12:12:42 EST, Height, 90.2, kg, 10/29/19 15:57:27 EST, Dry Weight Start Date: 11/02/19 Stop Date: 01/01/20 Status: Orderedatorvastatin 80 mg oral tablet 1 tablet = 80 mg, By Mouth, Daily, # 90 tablet, 1 Refills, Maintenance, 11/04/19 10:48:01 EST, Tablet, [facility], 149.86, cm, 11/02/19 12:12:42 EST, Height, 90.2, kg, 10/29/19 15:57:27 EST,Dry Weight Start Date: 11/04/19 Status: OrderedBasaglar KwikPen 100 units/mL subcutaneous solution = 30 units, Subcutaneous Infusion, Daily at bedtime, # 15 mL, 11 Refills, Maintenance, 01/02/19 10:27:03 EST, [facility] Start Date: 01/02/19 Status: OrderedCPAP Machine See Instructions, # 1 each, Maintenance, AutoCPAP 10-14 with a heated humidifier. Recommend orderinga machine with compliance data capabilities and following residual AHI. Dx: [employer]E [employer], 10/11/17 8:51:14, Compound Start Date: 11/22/17 Status: OrderedCPAP Equipment See Instructions, # 1 each, Refills 11, Tot. Refills 11, Maintenance, Dx: HAYDEE [employer], tubing, water chamber, filter, heated humidifier., 10/11/17 9:18:40, Compound Start Date: 10/11/17 Status: OrderedFLUoxetine 20 mg oral capsule 20 mg, 1, capsule, By Mouth, Daily, # 90 capsule, Refills 1, Tot. Refills 1, Maintenance, 04/29/19 13:41:56 EDT, Route to Pharmacy Electronically, [id number], [id number] Start Date: 04/29/19 Status: Orderedlosartan 100 mg [...] 11/02/19 14:08:05 EST, Route to Pharmacy Electronically, [facility], 149.86, cm, 11/02/19 12:12:42 EST, Height, 90.2, kg, 10/29/19 15:57:27 EST,... Start Date: 11/02/19 Stop Date: 01/01/20 Status: Orderedoxybutynin 10 mg/24 hr oral tablet, extended release 1 tablet = 10 mg, By Mouth, Daily, 0 Refills, Maintenance, 11/02/19 14:08:12 EST, ER Tablet Start Date: 11/02/19 Status: OrderedPEN NEEDLES [id number] PEN NEEDLES 24UU2MS, See Instructions, # 100 each, Refills 0, Tot. Refills 0, Maintenance, USE DIRECTED WITH INSULIN DAILY FAX [phone], 11/03/19 18:38:58 EST, Compound, 149.86, cm, 11/02/19 12:12:42 EST, Height, 90.2, kg, 10/29/19 15:57:27 EST, D... Start Date: 11/03/19 Status: OrderedPlavix 75 mg oral tablet 75 mg, 1, tablet, By Mouth, Daily, Stop Aggrenox, # 30 tablet, Refills 1, Tot. Refills 1, Maintenance, 11/02/19 14:07:49 EST, Route to Pharmacy Electronically, [facility], 149.86, cm, 11/02/19 12:12:42 EST, Height, 90.2, kg, 10/29/19 15:57:... Start Date: 11/02/19 Stop Date: 01/01/20 Status: OrderedWheeled walker with seat Wheeled walker with seat, See Instructions, # 1 each, Refills 0, Tot. Refills 0, Maintenance, DX: Unsteady balance, 07/16/15 13:49:32, Compound Start Date: 07/16/15 Status: OrderedZetia 10 mg oral tablet 1 tablet = 10 mg, By Mouth, Daily, TO BE TAKEN IN ADDITION TO LIPITOR FAX [phone], # 90 tablet, 1 Refills, Maintenance, 09/13/19 16:32:06 EDT, Tablet Start Date: 09/13/19 Status: Ordered Problem List Condition Effective Dates Status Health Status Informant Non-ST elevation [place] Active (NSTEMI)(Confirmed) Mild anemia(Confirmed) Active Autonomic neuropathy(Confirmed) [...] gait(Confirmed) Active Vertigo(Confirmed) Active 1Status post excision [id number] chest CT 2015.4colo 06928VXY 21137sfek 68155Cmpeuurlq Knees and Back Diagnosis Diagnosis Type Effective Health Clinical Informant Dates Status Service 2-vessel coronary artery Discharge 01/20/20 disease Diagnosis BMI 40.0-44.9, adult Discharge 01/20/20 Diagnosis COPD (chronic obstructive Discharge 01/20/20 pulmonary disease) Diagnosis Diabetic retinopathy Discharge 01/20/20 Diagnosis Hypercholesterolemia Discharge 01/20/20 Diagnosis Hypertension Discharge 01/20/20 Diagnosis Type 2 diabetes mellitus Discharge 01/20/20 Diagnosis Vital Signs Most recent to oldest [Reference Range]: 1 Height 149.86 cm (01/20/20 1:55 PM) Weight 92.1 kg (01/20/20 1:55 PM) Oxygen Saturation [94-100 %] 95 % (01/20/20 1:55 PM) Pulse Rate [55-90 bpm] 66 bpm (01/20/20 1:55 PM) Body Mass Index [18.5-24.99] 41.01 *>HHI* (01/20/20 1:55 PM) Blood Pressure [90-138/55-84 mm Hg] 132/60 mm Hg (01/20/20 1:55 PM) Mode of Delivery (Oxygen) Room air (01/20/20 1:55 PM) Blood pressure sites Arm, left (01/20/20 1:55 PM) Social History Social History Type Response Smoking Status Former smoker; Tobacco user in household: No; Other: Quit this June 2015; entered on: 08/17/16 Sex
--- OUTSIDE RECORDS SUMMARY | 2023-01-09 20:55 | XMS_ITS | Continuity of Care Document ---
:1945 Author Organization [facility] Address [address] [place] [address]- Care Team Providers Name Role Phone Nahid Waterman MD Primary Care Physician Encounter [facility] [place] Date(s): 03/09/22 - 04/08/22 [facility] [address] [place] [address]- Allergies, Adverse Reactions, Alerts Substance Reaction Severity [...] [10/19/2017] pt had done @ [facility] [id number] History: [id number] Comment: [09/15/2015] HIGH [id number] Comment: [07/28/2017] AT [facility] amLODIPine 2.5 mg oral tablet 2.5 mg, 1, tablet, By Mouth, Daily, # 90 tablet, Refills 1, Tot. Refills 1, Maintenance, 07/20/21 9:21:00 EDT, Route to Pharmacy Electronically, [facility], Partial fill upon patient requestif the prescription is for a schedule II opioid d... Start Date: 07/20/21 Status: Orderedaspirin 81 mg oral tablet, chewable 81 mg, 1, tablet, By Mouth, Daily, # 30 tablet, Refills 1, Tot. Refills 1, Maintenance, 11/02/19 14:07:39 EST, Route to Pharmacy Electronically, [facility], 149.86, cm, 11/02/19 12:12:42 EST, Height, 90.2, kg, 10/29/19 15:57:27 EST, Dry Weight Start Date: 11/02/19 Stop Date: 01/01/20 Status: Orderedatorvastatin 80 mg oral tablet 1 tablet = 80 mg, By Mouth, Daily, # 90 tablet, 1 Refills, Maintenance, 01/24/22 14:39:00 EST, Tablet, [facility], 150, cm, 08/19/21 13:24:00 EDT, Height, 91, kg, 04/19/21 14:09:00 EDT, Dry Weight Start Date: 01/24/22 Status: OrderedBasaglar KwikPen 100 units/mL subcutaneous solution = 30 units, Subcutaneous Infusion, Daily at bedtime, # 15 mL, 5 Refills, Maintenance, 07/20/21 9:21:00 EDT, [facility], 150, cm, 07/20/21 9:00:00 EDT, Height, 91, kg, 04/19/21 14:09:00 EDT, Dry Weight Start Date: 07/20/21 Stop Date: 01/16/22 Status: Orderedclopidogrel 75 mg oral tablet 75 mg, 1, tablet, By Mouth, Daily, # 90 tablet, Refills 4, Tot. Refills 4, Maintenance, 03/23/22 8:44:00 EDT, Route to Pharmacy Electronically, [facility], Partial fill upon patient request [...] Maintenance, 02/11/22 21:27:00EDT, Route to Pharmacy Electronically, [facility], 150, cm, 08/19/21 13:24:00 EDT, Height, 91, kg, 04/19/21 14:09:00 EDT, Dry Weight Start Date: 02/11/22 Status: Orderedlosartan 100 mg oral tablet 1 tablet, By Mouth, Daily, # 90 tablet, 0 Refills, Maintenance, 02/11/22 21:27:00 EDT, [facility], 150, cm, 08/19/21 13:24:00 EDT, Height, 91, kg, 04/19/21 14:09:00 EDT, Dry Weight Start Date: 02/11/22 Status: OrderedmetFORMIN 500 mg oral tablet 1 tablet = 500 mg, By Mouth, 2 times a day, # 180 tablet, 1 Refills, Maintenance, 02/17/22 14:09:00 EDT, Tablet, [facility], 150, cm, 02/17/22 13:07:00 EDT, Height, 91, kg, 04/19/21 14:09:00EDT, Dry Weight Start Date: 02/17/22 Status: Orderedmetoprolol 25 mg oral tablet 25 mg, 1, tablet, By Mouth, 2 times a day, # 180 tablet, Refills 3, Tot. Refills 3, Maintenance, 07/20/21 9:21:00 EDT, Route to Pharmacy Electronically, [facility], 150, cm, 07/20/21 9:00:00EDT, [...] Supply Start Date: 10/12/20 Status: OrderedPEN NEEDLES [id number] PEN NEEDLES 72RL1PT, See Instructions, # 100 each, Refills 3, Tot. Refills 3, Maintenance, USE DIRECTED WITH INSULIN DAILY FAX [phone], 07/01/21 13:25:00 EDT, Compound, 150, cm, 06/15/21 14:56:00 EDT, Height, 91, kg, 04/19/21 14:09:00 EDT, Dry We... Start Date: 07/01/21 Status: OrderedProAir HFA 90 mcg/inh inhalation aerosol with adapter 2, puffs, Inhalation, Every 6 hours, PRN, # 8.5 Gm, Refills 1, Tot. Refills 1, Maintenance, 06/23/2011:27:00 EDT, Aerosol, Route to Pharmacy Electronically, [id number], [facility], 149.86, cm, 06/23/20 10:59:00 [...] BE TAKEN IN ADDITION TO LIPITOR FAX [phone], # 90 tablet, 1 Refills, Maintenance, 03/09/22 15:43:00 EDT, Tablet, [facility], 150, cm, 02/22/22 8:22:00 [...] infarction (NSTEMI)(Confirmed) Hypertension(Confirmed) Active Urinary frequency(Confirmed) Active half-way (current) use of Active insulin(Confirmed) Depression, major, in Active remission(Confirmed) Sleep apnea(Confirmed) Active Osteoarthritis(Confirmed)7 Active Hypercholesterolemia(Confirmed) Active Resting tremor(Confirmed) Active Severe obesity(Confirmed) Active Shoulder pain, right(Confirmed) Active Type 2 diabetes mellitus(Confirmed) Active Unsteady gait(Confirmed) Active Vertigo(Confirmed) Active 1Status post excision [id number] 20891Zx chest CT 2014.4colo 16916RHC 04370kval 74047Onxnqolis Knees and Back Social History Social History Type Response Smoking Status Former smoker; Tobacco user in household: No; Other: Quit this June 2015; entered on: 08/17/16 Sex
--- OUTSIDE RECORDS SUMMARY | 2023-01-09 20:55 | XMS_ITS | Continuity of Care Document ---
:1945 Author Organization [facility] Address [address] [place] [id number]- Care Team Providers Name Role Phone Nahid Waterman MD Primary Care Physician Encounter [facility] Date(s): 03/22/22 - 03/23/[address] [address]- Discharge Disposition: A-D/C Home Attending Physician: Aurelio Simpson MD Admitting Physician: Aurelio Simpson MD Referring Physician: Aurelio Simpson MD Allergies, Adverse Reactions, Alerts Substance Reaction [...] 1Result Comment: [10/19/2017] pt had done @ [facility] [id number] History: [id number] Comment: [09/15/2015] HIGH [id number] Comment: [07/28/2017] AT [facility] Medications amLODIPine 2.5 mg oral tablet 2.5 mg, 1, tablet, By Mouth, Daily, # 90 tablet, Refills 1, Tot. Refills 1, Maintenance, 07/20/21 9:21:00 EDT, Route to Pharmacy Electronically, [facility], Partial fill upon patient requestif the prescription is for a schedule II opioid d... Start Date: 07/20/21 Status: OrderedamLODIPine 5 mg oral tablet 2.5 mg, Tablet, By Mouth, 03/23/22 9:00:00 EDT Start Date: 03/23/22 Stop Date: 03/23/22 Status: Completedaspirin 81 mg oral tablet, chewable 81 mg, [...] 1 Refills, Maintenance, 01/24/22 14:39:00 EST, Tablet, [facility], 150, cm, 08/19/21 13:24:00 EDT, Height, 91, kg, 04/19/21 14:09:00 EDT, Dry Weight Start Date: 01/24/22 Status: OrderedBasaglar KwikPen 100 units/mL subcutaneous solution = 30 units, Subcutaneous Infusion, Daily at bedtime, # 15 mL, 5 Refills, Maintenance, 07/20/21 9:21:00 EDT, [facility], 150, cm, 07/20/21 9:00:00 EDT, Height, 91, kg, 04/19/21 14:09:00 EDT, Dry Weight Start Date: 07/20/21 Stop Date: 01/16/22 Status: Orderedclopidogrel 75 mg oral tablet 75 mg, 1, tablet, By Mouth, Daily, # 90 tablet, Refills 4, Tot. Refills 4, Maintenance, 03/23/22 8:44:00 EDT, Route to Pharmacy Electronically, [facility], Partial fill upon patient request if [...] Maintenance, 02/11/22 21:27:00EDT, Route to Pharmacy Electronically, [facility], 150, cm, 08/19/21 13:24:00 EDT, Height, 91, kg, 04/19/21 14:09:00 EDT, Dry Weight Start Date: 02/11/22 Status: Orderedlosartan 100 mg oral tablet 1 tablet, By Mouth, Daily, # 90 tablet, 0 Refills, Maintenance, 02/11/22 21:27:00 EDT, [facility], 150, cm, 08/19/21 13:24:00 EDT, Height, 91, kg, 04/19/21 14:09:00 EDT, Dry Weight Start Date: 02/11/22 Status: Orderedlosartan 50 mg oral tablet 100 mg, Tablet, By Mouth, 03/23/22 9:00:00 EDT Start Date: 03/23/22 Stop Date: 03/23/22 Status: CompletedmetFORMIN 500 mg oral tablet 1 tablet = 500 mg, By Mouth, 2 times a day, # 180 tablet, 1 Refills, Maintenance, 02/17/22 14:09:00 EDT, Tablet, [facility], 150, cm, 02/17/22 13:07:00 EDT, Height, 91, kg, 04/19/21 14:09:00EDT, Dry Weight Start Date: 02/17/22 Status: Orderedmetoprolol 25 mg oral tablet 25 mg, 1, tablet, By Mouth, 2 times a day, # 180 tablet, Refills 3, Tot. Refills 3, Maintenance, 07/20/21 9:21:00 EDT, Route to Pharmacy Electronically, [facility], 150, cm, 07/20/21 9:00:00EDT, Height, 91, kg, 04/19/21 14:09:00 EDT, Dry W... Start Date: 07/20/21 Status: Orderedmetoprolol 25 mg oral tablet 25 mg, Tablet, By Mouth, 03/23/22 9:00:00 EDT Start Date: 03/23/22 Stop Date: 03/23/22 Status: Completednebulizer nebulizer, See Instructions, # 1 each, Refills [...] Supply Start Date: 10/12/20 Status: OrderedPEN NEEDLES [id number] PEN NEEDLES [id number], See Instructions, # 100 each, Refills 3, Tot. Refills 3, Maintenance, USE DIRECTED WITH INSULIN DAILY FAX [phone], 07/01/21 13:25:00 EDT, Compound, 150, cm, 06/15/21 14:56:00 EDT, Height, 91, kg, 04/19/21 14:09:00 EDT, Dry We... Start Date: 07/01/21 Status: OrderedProAir HFA 90 mcg/inh inhalation aerosol with adapter 2, puffs, Inhalation, Every 6 hours, PRN, # 8.5 Gm, Refills 1, Tot. 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) Depression, major, in Active remission(Confirmed) Sleep apnea(Confirmed) Active Osteoarthritis(Confirmed)7 Active Hypercholesterolemia(Confirmed) Active Resting tremor(Confirmed) Active Severe obesity(Confirmed) Active Shoulder pain, right(Confirmed) Active Type 2 diabetes mellitus(Confirmed) Active Unsteady gait(Confirmed) Active Vertigo(Confirmed) Active 1Status post excision [id number] 26584Gz chest CT 2014.4colo 93370BBV 40251pdkh 21610Fhgtbimyy Knees and Back Vital Signs Most recent to oldest 1 2 3 [Reference Range]: Height 152 cm 152 cm 152 cm (03/23/22 8:06 AM) (03/23/22 2:32 AM) (03/22/22 8:12 P M) Weight 94.6 kg 94.6 kg 94.6 kg (03/22/22 2:44 PM) (03/22/22 9:26 AM) (03/22/22 8:00 A M) Oxygen Saturation [94-100 96 % 96 % 95 % %] (03/23/22 8:06 AM) (03/23/22 2:32 AM) (03/22/22 8:12 P M) Pulse Rate [55-90 bpm] 66 bpm 66 bpm 63 bpm (03/23/22 8:40 AM) (03/23/22 8:06 AM) (03/23/22 2:32 A M) Body Mass Index 40.95 40.95 [18.5-24.99] *>HHI* *>HHI* (03/22/22 2:44 PM) (03/22/22 8:00 AM) Blood Pressure 154/44 mm Hg 154/44 mm Hg 154/44 mm Hg [90-138/55-84 mm Hg] *H* *H* *H* (03/23/22 8:40 AM) (03/23/22 8:40 AM) (03/23/22 8:40 A M) Respiratory Rate [16-30 18 br/min 18 br/min 18 br/mi n br/min] (03/23/22 8:06 AM) (03/23/22 2:32 AM) (03/22/22 8:12 P M) Temperature [96.8-100.4 97.0 DegF 97.3 DegF 97.9 Deg F DegF] (03/23/22 8:06 AM) (03/23/22 2:32 AM) (03/22/22 8:12 P M) Mode of Delivery (Oxygen) Room air CPAP Room a ir (03/23/22 8:06 AM) (03/23/22 2:32 AM) (03/22/22 8:12 P M) Blood pressure sites Arm, left Arm, right Arm, right (03/23/22 8:06 AM) (03/23/22 2:32 AM) (03/22/22 8:12 P M) Temperature Route Oral Temporal Temporal (03/23/22 8:06 AM) (03/23/22 2:32 AM) (03/22/22 8:12 P M) Dry Weight 94.6 kg 94.6 kg (03/22/22 2:44 PM) (03/22/22 9:26 AM) Weight Obtained Via Bed scale Standing scale Standing sca le (03/22/22 2:44 PM) (03/22/22 9:26 AM) (03/22/22 8:00 A M) Dry Weight Obtained Via Patient/family stated Standing scale (03/22/22 2:44 PM) (03/22/22 9:26 AM) Sensory deficits Hearing deficit L, Hearing deficit R, Uncorrected visual impairment (03/22/22 2:44 PM) Social History Social History Type Response Smoking Status Former smoker; Tobacco user in household: No; Other: Quit this June 2015; entered on: 08/17/16 Sex
--- OUTSIDE RECORDS SUMMARY | 2023-01-09 20:56 | XMS_ITS | Continuity of Care Document ---
:1945 Author Organization [facility] Address [address] [place] [address]- Care Team Providers Name Role Phone Columba WATSON, Nahid Washington Primary Care Physician Encounter [facility] Date(s): 11/16/20 - 12/16/20 [facility] [address] [place] [address]- Allergies, Adverse Reactions, Alerts Substance Reaction Severity [...] Comment: [10/19/2017] pt had done @ [facility] high [id number] History: [id number] Comment: [09/15/2015] HIGH [id number] Comment: [07/28/2017] AT [facility] Medications albuterol-ipratropium 3 mg-0.5 mg/3 ml [...] 01/20/20 14:18:00 EST, Route to Pharmacy Electronically, [facility], 149.86, cm, 01/20/20 13:55:00 EST, Height, 90.9, kg, 12/10/19 7:01:00 EST, Dry Weight Start Date: 01/20/20 Status: Orderedaspirin 81 mg oral tablet, chewable 81 mg, 1, tablet, By Mouth, Daily, # 30 tablet, Refills 1, Tot. Refills 1, Maintenance, 11/02/19 14:07:39 EST, Route to Pharmacy Electronically, [facility], 149.86, cm, 11/02/19 12:12:42 EST, Height, 90.2, kg, 10/29/19 15:57:27 EST, Dry Weight Start Date: 11/02/19 Stop Date: 01/01/20 Status: Orderedatorvastatin 80 mg oral tablet 1 tablet = 80 mg, By Mouth, Daily, # 90 tablet, 1 Refills, Maintenance, 10/26/20 11:45:00 EST, Tablet, [facility], 150, cm, 10/23/20 14:48:00 EST, Height, 90.9, kg, 10/09/20 4:37:00 EST, DryWeight Start Date: 10/26/20 Status: OrderedBasaglar KwikPen 100 units/mL subcutaneous solution = 30 units, Subcutaneous Infusion, Daily at bedtime, # 15 mL, 5 Refills, Maintenance, 02/18/20 9:59:00 EDT, [facility], 149.86, cm, 01/20/20 13:55:00 EST, [...] 6 Refills, Maintenance, 07/24/20 14:34:00 EDT, Aerosol, [facility], 149.86, cm, 07/24/20 14:16:00 EDT, Height, 90.9, kg, 12/10/19 7:01:00 EST, Dry Weight Start Date: 07/24/20 Status: OrderedFLUoxetine 20 mg oral capsule 20 mg, 1, capsule, By Mouth, Daily, # 90 capsule, Refills 1, Tot. Refills 1, Maintenance, 08/12/20 13:03:00 EDT, Route to Pharmacy Electronically, [facility], 149.86, cm, 07/24/20 14:16:00 EDT, [...] 3 Refills, Maintenance, 02/10/20 14:08:00 EDT, Tablet, [facility], 149.86, cm, 01/20/20 13:55:00 EST, Height, 90.9, kg, 12/10/19 7:01:00 EST,Dry Weight Start Date: 02/10/20 Status: OrderedmetFORMIN 500 mg oral tablet 1 tablet = 500 mg, By Mouth, 2 times a day, # 180 tablet, 0 Refills, Maintenance, 11/16/20 14:50:00 EST, Tablet, [facility], 150, cm, 10/23/20 14:48:00 EST, Height, 90.9, kg, 10/09/20 4:37:00 EST, Dry Weight Start Date: 11/16/20 Status: Orderedmetoprolol 25 mg oral tablet 25 mg, 1, tablet, By Mouth, 2 times a day, # 180 tablet, Refills 0, Tot. Refills 0, Maintenance, 10/26/20 11:45:00 EST, Route to Pharmacy Electronically, [facility], 150, cm, 10/23/20 14:48:00 EST, [...] Refills, Maintenance, 03/19/20 16:20:00 EDT, ER Tablet, [facility], 149.86, cm, 01/20/20 13:55:00 EST, Height, 90.9, kg, 12/10/19 7:01:00 EST, Dry Weight Start Date: 03/19/20 Status: OrderedPEN NEEDLES [id number] PEN NEEDLES [id number], See Instructions, # 100 each, Refills 11, Tot. Refills 11, Maintenance, USE DIRECTED WITH INSULIN DAILY FAX [phone], 04/30/20 12:29:00 EDT, Compound, 149.86, cm, 01/20/20 13:55:00 EST, Height, 90.9, kg, 12/10/19 7:01:00 EST,... Start Date: 04/30/20 Status: OrderedPlavix 75 mg oral tablet 75 mg, 1, tablet, By Mouth, Daily, # 30 tablet, Refills 11, Tot. Refills 11, Maintenance, 03/19/20 16:21:00 EDT, Route to Pharmacy Electronically, [facility], 149.86, cm, 01/20/20 13:55:00 EST, Height, 90.9, kg, 12/10/19 7:01:00 EST, Dry We... Start Date: 03/19/20 Stop Date: 03/14/21 Status: OrderedProAir HFA 90 mcg/inh inhalation aerosol with adapter 2, puffs, Inhalation, Every 6 hours, PRN, # 8.5 Gm, Refills 1, Tot. Refills 1, Maintenance, 06/23/2011:27:00 EDT, Aerosol, Route to Pharmacy Electronically, [id number], [facility], 149.86, cm, 06/23/20 10:59:00 ED... Start Date: 06/23/20 Status: OrderedVentolin HFA 108 mcg/inh inhalation aerosol with adapter 2 puffs, Inhalation, Every 6 hours, # 1 each, 3 Refills, Maintenance, 06/23/20 16:10:00 EDT, [facility], 149.86, cm, 06/23/20 10:59:00 EDT, Height, [...] Dates Status Health Status Informant Non-ST elevation [place] Active (NSTEMI)(Confirmed) Mild anemia(Confirmed) Active Autonomic neuropathy(Confirmed) [...] gait(Confirmed) Active Vertigo(Confirmed) Active 1Status post excision [id number] 62523Iw chest CT 2014.4colo 69075IGC 88072vkge 39852Onitklexu Knees and Back Social History Social History Type Response Smoking Status Former smoker; Tobacco user in household: No; Other: Quit this June 2015; entered on: 08/17/16 Sex
--- OUTSIDE RECORDS SUMMARY | 2023-01-09 20:56 | XMS_ITS | Continuity of Care Document ---
:1945 Author Organization [facility] Address [address] [place] [address]- Care Team Providers Name Role Phone Nahid Waterman MD Primary Care Physician Encounter [facility] Date(s): 08/19/21 - 08/26/21 [facility] [address] [place] [address]- Attending Physician: Leah CHO, Erika Simmons Referring Physician: Nahid Waterman MD Allergies, Adverse [...] [10/19/2017] pt had done @ [facility] [id number] History: [id number] Comment: [09/15/2015] HIGH [id number] Comment: [07/28/2017] AT [facility] Medications amLODIPine 2.5 mg oral tablet 2.5 mg, 1, tablet, By Mouth, Daily, # 90 tablet, Refills 1, Tot. Refills 1, Maintenance, 07/20/21 9:21:00 EDT, Route to Pharmacy Electronically, [facility], Partial fill upon patient requestif the prescription is for a schedule II opioid d... Start Date: 07/20/21 Status: Orderedaspirin 81 mg oral tablet, chewable 81 mg, 1, tablet, By Mouth, Daily, # 30 tablet, Refills 1, Tot. Refills 1, Maintenance, 11/02/19 14:07:39 EST, Route to Pharmacy Electronically, [facility], 149.86, cm, 11/02/19 12:12:42 EST, Height, 90.2, kg, 10/29/19 15:57:27 EST, Dry Weight Start Date: 11/02/19 Stop Date: 01/01/20 Status: Orderedatorvastatin 80 mg oral tablet 1 tablet = 80 mg, By Mouth, Daily, # 90 tablet, 1 Refills, Maintenance, 07/20/21 9:21:00 EDT, Tablet, [facility], 150, cm, 07/20/21 9:00:00 EDT, Height, 91, kg, 04/19/21 14:09:00 EDT, Dry Weight Start Date: 07/20/21 Status: OrderedBasaglar KwikPen 100 units/mL subcutaneous solution = 30 units, Subcutaneous Infusion, Daily at bedtime, # 15 mL, 5 Refills, Maintenance, 07/20/21 9:21:00 EDT, [facility], 150, cm, 07/20/21 9:00:00 [...] 10/11/17 9:18:40, Compound Start Date: 10/11/17 Status: OrderedDiflucan 100 mg oral tablet See Instructions, 2 tablets by mouth today and then 1 pill daily., # 15 tablet, 0 Refills, Acute 09/02/21 0:00:00 EDT, 08/19/21 13:45:00 EDT, [facility], Partial fill upon patient request ifthe prescription is for a schedule II opioid drug... Start Date: 08/19/21 Stop Date: 09/02/21 Status: OrderedFLUoxetine 20 mg oral capsule 20 mg, 1, capsule, By Mouth, Daily, # 90 capsule, Refills 1, Tot. Refills 1, Maintenance, 07/20/21 9:21:00 EDT, Route to Pharmacy Electronically, [facility], 150, cm, 07/20/21 9:00:00 EDT, Height, 91, kg, 04/19/21 14:09:00 EDT, Dry Weight Start Date: 07/20/21 Status: Orderedlosartan 100 mg oral tablet 1 tablet, By Mouth, Daily, # 90 tablet, 1 Refills, Maintenance, 07/20/21 9:21:00 EDT, [facility], 150, cm, 07/20/21 9:00:00 EDT, Height, 91, kg, 04/19/21 14:09:00 EDT, Dry Weight Start Date: 07/20/21 Status: OrderedmetFORMIN 500 mg oral tablet 1 tablet = 500 mg, By Mouth, 2 times a day, # 180 tablet, 1 Refills, Maintenance, 08/19/21 13:42:00 EDT, Tablet, [facility], 150, cm, 08/19/21 13:24:00 EDT, Height, 91, kg, 04/19/21 14:09:00EDT, Dry Weight Start Date: 08/19/21 Status: Orderedmetoprolol 25 mg oral tablet 25 mg, 1, tablet, By Mouth, 2 times a day, # 180 tablet, Refills 3, Tot. Refills 3, Maintenance, 07/20/21 9:21:00 EDT, Route to Pharmacy Electronically, [facility], 150, cm, 07/20/21 9:00:00EDT, [...] Supply Start Date: 10/12/20 Status: OrderedPEN NEEDLES [id number] PEN NEEDLES [id number], See Instructions, # 100 each, Refills 3, Tot. Refills 3, Maintenance, USE DIRECTED WITH INSULIN DAILY FAX [phone], 07/01/21 13:25:00 EDT, Compound, 150, cm, 06/15/21 14:56:00 EDT, Height, 91, kg, 04/19/21 14:09:00 EDT, Dry We... Start Date: 07/01/21 Status: OrderedProAir HFA 90 mcg/inh inhalation aerosol with adapter 2, puffs, Inhalation, Every 6 hours, PRN, # 8.5 Gm, Refills 1, Tot. Refills 1, Maintenance, 06/23/2011:27:00 EDT, Aerosol, Route to Pharmacy Electronically, [id number], [facility], 149.86, cm, 06/23/20 10:59:00 [...] BE TAKEN IN ADDITION TO LIPITOR FAX [phone], # 90 tablet, 1 Refills, Maintenance, 07/20/21 9:21:00 EDT, Tablet, [facility], 150, cm, 07/20/21 9:00:00 [...] infarction (NSTEMI)(Confirmed) Hypertension(Confirmed) Active Urinary frequency(Confirmed) Active correction (current) use of Active insulin(Confirmed) Depression, major, in Active remission(Confirmed) Sleep apnea(Confirmed) Active Osteoarthritis(Confirmed)7 Active Hypercholesterolemia(Confirmed) Active Resting tremor(Confirmed) Active Shoulder pain, right(Confirmed) Active Type 2 diabetes mellitus(Confirmed) Active Unsteady gait(Confirmed) Active Vertigo(Confirmed) Active 1Status post excision [id number] 41266Dz chest CT 2015.4colo 02867VVO 99610pxxf 30696Vfdjnltou Knees and Back Vital Signs Most recent to oldest [Reference Range]: 1 Height 150 cm (08/19/21 1:24 PM) Weight 91.0 kg (08/19/21 1:24 PM) Oxygen Saturation [94-100 %] 97 % (08/19/21 1:24 PM) Pulse Rate [55-90 bpm] 60 bpm (08/19/21 1:24 PM) Body Mass Index [18.5-24.99] 40.44 *>HHI* (08/19/21 1:24 PM) Blood Pressure [90-138/55-84 mm Hg] 124/62 mm Hg (08/19/21 1:24 PM) Blood pressure sites Arm, left (08/19/21 1:24 PM) Social History Social History Type Response Smoking Status Former smoker; Tobacco user in household: No; Other: Quit this June 2015; entered on: 08/17/16 Sex
--- OUTSIDE RECORDS SUMMARY | 2023-01-09 20:56 | XMS_ITS | Continuity of Care Document ---
:1945 Author Organization [facility] Address [address] [place] [address]- Care Team Providers Name Role Phone Nahid Waterman MD Primary Care Physician Encounter [facility] Date(s): 11/12/19 - 03/11/20 [facility] [address] [place] [address]- [facility] Attending Physician: Nahid Waterman MD Allergies, Adverse [...] 1Result Comment: [10/19/2017] pt had done @ [facility] [id number] History: [id number] Comment: [09/15/2015] HIGH [id number] Comment: [07/28/2017] AT [facility] Medications amLODIPine 10 mg oral tablet 10 mg, 1, tablet, By Mouth, Daily, # 90 tablet, Refills 3, Tot. Refills 3, Maintenance, 01/20/20 14:18:00 EST, Route to Pharmacy Electronically, [facility], 149.86, cm, 01/20/20 13:55:00 EST, Height, 90.9, kg, 12/10/19 7:01:00 EST, Dry Weight Start Date: 01/20/20 Status: Orderedaspirin 81 mg oral tablet, chewable 81 mg, 1, tablet, By Mouth, Daily, # 30 tablet, Refills 1, Tot. Refills 1, Maintenance, 11/02/19 14:07:39 EST, Route to Pharmacy Electronically, [facility], 149.86, cm, 11/02/19 12:12:42 EST, Height, 90.2, kg, 10/29/19 15:57:27 EST, Dry Weight Start Date: 11/02/19 Stop Date: 01/01/20 Status: Orderedatorvastatin 80 mg oral tablet 1 tablet = 80 mg, By Mouth, Daily, # 90 tablet, 1 Refills, Maintenance, 11/04/19 10:48:01 EST, Tablet, [facility], 149.86, cm, 11/02/19 12:12:42 EST, Height, 90.2, kg, 10/29/19 15:57:27 EST,Dry Weight Start Date: 11/04/19 Status: OrderedBasaglar KwikPen 100 units/mL subcutaneous solution = 30 units, Subcutaneous Infusion, Daily at bedtime, # 15 mL, 5 Refills, Maintenance, 02/18/20 9:59:00 EDT, [facility], 149.86, cm, 01/20/20 13:55:00 [...] 02/10/20 11:51:00 EDT, Route to Pharmacy Electronically, [facility], 149.86, cm, 01/20/20 13:55:00 EST, Height, 90.9, kg, 12/10/19 7:01:00 EST, Dry We... Start Date: 02/10/20 Status: Orderedlosartan 100 mg oral tablet 1 tablet = 100 mg, By Mouth, Daily, # 90 tablet, 3 Refills, Maintenance, 02/10/20 14:08:00 EDT, Tablet, [facility], 149.86, cm, 01/20/20 13:55:00 EST, Height, 90.9, kg, 12/10/19 7:01:00 EST,Dry Weight Start Date: 02/10/20 Status: OrderedmetFORMIN 500 mg oral tablet 1 tablet = 500 mg, By Mouth, 2 times a day, # 180 tablet, 0 Refills, Maintenance, 02/10/20 11:51:00 EDT, Tablet, [facility], 149.86, cm, 01/20/20 13:55:00 EST, Height, 90.9, kg, 12/10/19 7:01:00 EST, Dry Weight Start Date: 02/10/20 Status: Orderedmetoprolol 25 mg oral tablet 25 mg, 1, tablet, By Mouth, 2 times a day, # 60 tablet, Refills 1, Tot. Refills 1, Maintenance, 11/02/19 14:08:05 EST, Route to Pharmacy Electronically, [facility], 149.86, cm, 11/02/19 12:12:42 EST, Height, 90.2, kg, 10/29/19 15:57:27 EST,... Start Date: 11/02/19 Stop Date: 01/01/20 Status: Orderedoxybutynin 10 mg/24 hr oral tablet, extended release 1 tablet = 10 mg, By Mouth, Daily, 0 Refills, Maintenance, 11/02/19 14:08:12 EST, ER Tablet Start Date: 11/02/19 Status: OrderedPEN NEEDLES 81BA7AR PEN NEEDLES [id number], See Instructions, # 100 each, Refills 3, Tot. Refills 3, Maintenance, USE DIRECTED WITH INSULIN DAILY FAX [phone], 02/10/20 11:51:00 EDT, Compound, 149.86, cm, 01/20/20 13:55:00 EST, Height, 90.9, kg, 12/10/19 7:01:00 EST, . Start Date: 02/10/20 Status: OrderedPlavix 75 mg oral tablet 75 mg, 1, tablet, By Mouth, Daily, Stop Aggrenox, # 30 tablet, Refills 1, Tot. Refills 1, Maintenance, 11/02/19 14:07:49 EST, Route to Pharmacy Electronically, [facility], 149.86, cm, 11/02/19 12:12:42 [...] BE TAKEN IN ADDITION TO LIPITOR FAX [phone], # 90 tablet, 1 Refills, Maintenance, 09/13/19 16:32:06 EDT, Tablet Start Date: 09/13/19 Status: Ordered Problem List Condition Effective Dates Status Health Status Informant Non-ST elevation [place] Active (NSTEMI)(Confirmed) Mild anemia(Confirmed) Active Autonomic neuropathy(Confirmed) [...] gait(Confirmed) Active Vertigo(Confirmed) Active 1Status post excision [id number] 78200Sr chest CT 2014.4colo 62465LSP 32970qotr 92498Gqbticjrv Knees and Back Social History Social History Type Response Smoking Status Former smoker; Tobacco user in household: No; Other: Quit this June 2015; entered on: 08/17/16 Sex
--- OUTSIDE RECORDS SUMMARY | 2023-01-09 20:56 | XMS_ITS | Continuity of Care Document ---
:1945 Author Organization [facility] Address [address] [place] [address]- Care Team Providers Name Role Phone Nahid Waterman MD Primary Care Physician Encounter [facility] Date(s): 11/27/20 - 12/04/20 [facility] [address] [place] [address]- Encounter Diagnosis Dizziness (Discharge Diagnosis) - 11/27/[address] scan of lung (Discharge Diagnosis) - 11/27/20 Attending Physician: Nahid Waterman MD Allergies, Adverse [...] [10/19/2017] pt had done @ [facility] high [id number] History: [id number] Comment: [09/15/2015] HIGH [id number] Comment: [07/28/2017] AT [facility] Medications albuterol-ipratropium 3 mg-0.5 mg/3 [...] 01/20/20 14:18:00 EST, Route to Pharmacy Electronically, [facility], 149.86, cm, 01/20/20 13:55:00 EST, Height, 90.9, kg, 12/10/19 7:01:00 EST, Dry Weight Start Date: 01/20/20 Status: Orderedaspirin 81 mg oral tablet, chewable 81 mg, 1, tablet, By Mouth, Daily, # 30 tablet, Refills 1, Tot. Refills 1, Maintenance, 11/02/19 14:07:39 EST, Route to Pharmacy Electronically, [facility], 149.86, cm, 11/02/19 12:12:42 EST, Height, 90.2, kg, 10/29/19 15:57:27 EST, Dry Weight Start Date: 11/02/19 Stop Date: 01/01/20 Status: Orderedatorvastatin 80 mg oral tablet 1 tablet = 80 mg, By Mouth, Daily, # 90 tablet, 1 Refills, Maintenance, 10/26/20 11:45:00 EST, Tablet, [facility], 150, cm, 10/23/20 14:48:00 EST, Height, 90.9, kg, 10/09/20 4:37:00 EST, DryWeight Start Date: 10/26/20 Status: OrderedBasaglar KwikPen 100 units/mL subcutaneous solution = 30 units, Subcutaneous Infusion, Daily at bedtime, # 15 mL, 5 Refills, Maintenance, 02/18/20 9:59:00 EDT, [facility], 149.86, cm, 01/20/20 13:55:00 [...] 6 Refills, Maintenance, 07/24/20 14:34:00 EDT, Aerosol, [facility], 149.86, cm, 07/24/20 14:16:00 EDT, Height, 90.9, kg, 12/10/19 7:01:00 EST, Dry Weight Start Date: 07/24/20 Status: OrderedFLUoxetine 20 mg oral capsule 20 mg, 1, capsule, By Mouth, Daily, # 90 capsule, Refills 1, Tot. Refills 1, Maintenance, 08/12/20 13:03:00 EDT, Route to Pharmacy Electronically, [facility], 149.86, cm, 07/24/20 14:16:00 [...] 3 Refills, Maintenance, 02/10/20 14:08:00 EDT, Tablet, [facility], 149.86, cm, 01/20/20 13:55:00 EST, Height, 90.9, kg, 12/10/19 7:01:00 EST,Dry Weight Start Date: 02/10/20 Status: OrderedmetFORMIN 500 mg oral tablet 1 tablet = 500 mg, By Mouth, 2 times a day, # 180 tablet, 0 Refills, Maintenance, 11/16/20 14:50:00 EST, Tablet, [facility], 150, cm, 10/23/20 14:48:00 EST, Height, 90.9, kg, 10/09/20 4:37:00 EST, Dry Weight Start Date: 11/16/20 Status: Orderedmetoprolol 25 mg oral tablet 25 mg, 1, tablet, By Mouth, 2 times a day, # 180 tablet, Refills 0, Tot. Refills 0, Maintenance, 10/26/20 11:45:00 EST, Route to Pharmacy Electronically, [facility], 150, cm, 10/23/20 14:48:00 [...] Refills, Maintenance, 03/19/20 16:20:00 EDT, ER Tablet, [facility], 149.86, cm, 01/20/20 13:55:00 EST, Height, 90.9, kg, 12/10/19 7:01:00 EST, Dry Weight Start Date: 03/19/20 Status: OrderedPEN NEEDLES [id number] PEN NEEDLES 99FX2HV, See Instructions, # 100 each, Refills 11, Tot. Refills 11, Maintenance, USE DIRECTED WITH INSULIN DAILY FAX [phone], 04/30/20 12:29:00 EDT, Compound, 149.86, cm, 01/20/20 13:55:00 EST, Height, 90.9, kg, 12/10/19 7:01:00 EST,... Start Date: 04/30/20 Status: OrderedPlavix 75 mg oral tablet 75 mg, 1, tablet, By Mouth, Daily, # 30 tablet, Refills 11, Tot. Refills 11, Maintenance, 03/19/20 16:21:00 EDT, Route to Pharmacy Electronically, [facility], 149.86, cm, 01/20/20 13:55:00 EST, Height, 90.9, kg, 12/10/19 7:01:00 EST, Dry We... Start Date: 03/19/20 Stop Date: 03/14/21 Status: OrderedProAir HFA 90 mcg/inh inhalation aerosol with adapter 2, puffs, Inhalation, Every 6 hours, PRN, # 8.5 Gm, Refills 1, Tot. Refills 1, Maintenance, 06/23/2011:27:00 EDT, Aerosol, Route to Pharmacy Electronically, [id number], [facility], 149.86, cm, 06/23/20 10:59:00 ED... Start Date: 06/23/20 Status: OrderedVentolin HFA 108 mcg/inh inhalation aerosol with adapter 2 puffs, Inhalation, Every 6 hours, # 1 each, 3 Refills, Maintenance, 06/23/20 16:10:00 EDT, [facility], 149.86, cm, 06/23/20 10:59:00 EDT, Height, 90.9, kg, 12/10/19 7:01:00 EST, Dry Weight Start Date: 06/23/20 Status: OrderedWheeled walker with seat Wheeled walker with seat, See Instructions, # 1 each, Refills 0, Tot. Refills 0, Maintenance, DX: Unsteady balance, 08/27/15 13:49:32, Compound Start Date: 07/16/15 Status: OrderedZetia 10 mg oral tablet 1 tablet = 10 mg, By Mouth, Daily, TO BE TAKEN IN ADDITION TO LIPITOR FAX [phone], # 90 tablet, 1 Refills, Maintenance, 09/11/20 14:24:00 EDT, Tablet, [facility], 149.86, cm, 08/28/20 9:59:00 EDT, Height, 90.9, kg, 12/10/19 7:01:00 EST,... Start Date: 09/11/20 Status: Ordered Problem List Condition Effective Dates Status Health Status Informant Non-ST elevation PA Active (NSTEMI)(Confirmed) Mild anemia(Confirmed) Active Autonomic neuropathy(Confirmed) [...] gait(Confirmed) Active Vertigo(Confirmed) Active 1Status post excision [id number] 25713Lq chest CT 2014.4colo 49317WUV 60046oawh 69645Eqdlqeqbd Knees and Back Diagnosis Diagnosis Type Effective Dates Health Status Clinical In formant Service Dizziness Discharge 11/27/[address] scan Discharge 11/27/20 of lung Diagnosis Vital Signs Most recent to oldest [Reference Range]: 1 Height 150 cm (11/27/20 2:42 PM) Social History Social History Type Response Smoking Status Former smoker; Tobacco user in household: No; Other: Quit this June 2015; entered on: 08/17/16 Sex
--- OUTSIDE RECORDS SUMMARY | 2023-01-09 20:56 | XMS_ITS | Continuity of Care Document ---
:1945 Author Organization [facility] Address [address] [place] [phone]- Care Team Providers Name Role Phone Nahid Waterman MD Primary Care Physician Encounter [facility] Date(s): 12/31/21 - 01/30/22 [facility] [address] [place] [address]- Attending Physician: Bal De Souza Admitting Physician: AdmtrBal Referring Physician: Admtr, Ar8 Allergies, Adverse Reactions, Alerts Substance Reaction Severity [...] 1Result Comment: [10/19/2017] pt had done @ [facility] [id number] History: [id number] Comment: [09/15/2015] HIGH [id number] Comment: [07/28/2017] AT [facility] Medications amLODIPine 2.5 mg oral tablet 2.5 mg, 1, tablet, By Mouth, Daily, # 90 tablet, Refills 1, Tot. Refills 1, Maintenance, 07/20/21 9:21:00 EDT, Route to Pharmacy Electronically, [facility], Partial fill upon patient requestif the prescription is for a schedule II opioid d... Start Date: 07/20/21 Status: Orderedaspirin 81 mg oral tablet, chewable 81 mg, 1, tablet, By Mouth, Daily, # 30 tablet, Refills 1, Tot. Refills 1, Maintenance, 11/02/19 14:07:39 EST, Route to Pharmacy Electronically, [facility], 149.86, cm, 11/02/19 12:12:42 EST, Height, 90.2, kg, 10/29/19 15:57:27 EST, Dry Weight Start Date: 11/02/19 Stop Date: 01/01/20 Status: Orderedatorvastatin 80 mg oral tablet 1 tablet = 80 mg, By Mouth, Daily, # 90 tablet, 1 Refills, Maintenance, 01/24/22 14:39:00 EST, Tablet, [facility], 150, cm, 08/19/21 13:24:00 EDT, Height, 91, kg, 04/19/21 14:09:00 EDT, Dry Weight Start Date: 01/24/22 Status: OrderedBasaglar KwikPen 100 units/mL subcutaneous solution = 30 units, Subcutaneous Infusion, Daily at bedtime, # 15 mL, 5 Refills, Maintenance, 07/20/21 9:21:00 EDT, [facility], 150, cm, 07/20/21 9:00:00 [...] 07/20/21 9:21:00 EDT, Route to Pharmacy Electronically, [facility], 150, cm, 07/20/21 9:00:00 EDT, Height, 91, kg, 04/19/21 14:09:00 EDT, Dry Weight Start Date: 07/20/21 Status: Orderedlosartan 100 mg oral tablet 1 tablet, By Mouth, Daily, # 90 tablet, 1 Refills, Maintenance, 07/20/21 9:21:00 EDT, [facility], 150, cm, 07/20/21 9:00:00 EDT, Height, 91, kg, 04/19/21 14:09:00 EDT, Dry Weight Start Date: 07/20/21 Status: OrderedmetFORMIN 500 mg oral tablet 1 tablet = 500 mg, By Mouth, 2 times a day, # 180 tablet, 1 Refills, Maintenance, 01/27/22 9:28:00 EST, Tablet, [facility], 150, cm, 08/19/21 13:24:00 EDT, Height, 91, kg, 04/19/21 14:09:00 EDT, Dry Weight Start Date: 01/27/22 Status: Orderedmetoprolol 25 mg oral tablet 25 mg, 1, tablet, By Mouth, 2 times a day, # 180 tablet, Refills 3, Tot. Refills 3, Maintenance, 07/20/21 9:21:00 EDT, Route to Pharmacy Electronically, [facility], 150, cm, 07/20/21 9:00:00EDT, [...] Supply Start Date: 10/12/20 Status: OrderedPEN NEEDLES [id number] PEN NEEDLES 36KR4EF, See Instructions, # 100 each, Refills 3, Tot. Refills 3, Maintenance, USE DIRECTED WITH INSULIN DAILY FAX [phone], 07/01/21 13:25:00 EDT, Compound, 150, cm, 06/15/21 14:56:00 EDT, Height, 91, kg, 04/19/21 14:09:00 EDT, Dry We... Start Date: 07/01/21 Status: OrderedProAir HFA 90 mcg/inh inhalation aerosol with adapter 2, puffs, Inhalation, Every 6 hours, PRN, # 8.5 Gm, Refills 1, Tot. Refills 1, Maintenance, 06/23/2011:27:00 EDT, Aerosol, Route to Pharmacy Electronically, [id number], [facility], 149.86, cm, 06/23/20 10:59:00 [...] BE TAKEN IN ADDITION TO LIPITOR FAX [phone], # 90 tablet, 1 Refills, Maintenance, 07/20/21 [...] infarction (NSTEMI)(Confirmed) Hypertension(Confirmed) Active Urinary frequency(Confirmed) Active detention (current) use of Active insulin(Confirmed) Depression, major, in Active remission(Confirmed) Sleep apnea(Confirmed) Active Osteoarthritis(Confirmed)7 Active Hypercholesterolemia(Confirmed) Active Resting tremor(Confirmed) Active Shoulder pain, right(Confirmed) Active Type 2 diabetes mellitus(Confirmed) Active Unsteady gait(Confirmed) Active Vertigo(Confirmed) Active 1Status post excision [id number] 84538Ji chest CT 2014.4colo 21521UGL 47885nfhd 41819Phluufmno Knees and Back Social History Social History Type Response Smoking Status Former smoker; Tobacco user in household: No; Other: Quit this June 2015; entered on: 08/17/16 Sex
--- OUTSIDE RECORDS SUMMARY | 2023-01-09 20:56 | XMS_ITS | Continuity of Care Document ---
:1945 Author Organization [facility] Address [address] [place] [address]- Care Team Providers Name Role Phone Nahid Waterman MD Primary Care Physician Encounter [facility] Date(s): 02/17/22 - 02/24/22 [facility] [address] [place] [address]- Attending Physician: Erika Lynn NP Referring Physician: [...] 1Result Comment: [10/19/2017] pt had done @ [facility] [id number] History: [id number] Comment: [09/15/2015] HIGH [id number] Comment: [07/28/2017] [facility] Medications amLODIPine 2.5 mg oral tablet 2.5 mg, 1, tablet, By Mouth, Daily, # 90 tablet, Refills 1, Tot. Refills 1, Maintenance, 07/20/21 9:21:00 EDT, Route to Pharmacy Electronically, [facility], Partial fill upon patient requestif the prescription is for a schedule II opioid d... Start Date: 07/20/21 Status: Orderedaspirin 81 mg oral tablet, chewable 81 mg, 1, tablet, By Mouth, Daily, # 30 tablet, Refills 1, Tot. Refills 1, Maintenance, 11/02/19 14:07:39 EST, Route to Pharmacy Electronically, [facility], 149.86, cm, 11/02/19 12:12:42 EST, Height, 90.2, kg, 10/29/19 15:57:27 EST, Dry Weight Start Date: 11/02/19 Stop Date: 01/01/20 Status: Orderedatorvastatin 80 mg oral tablet 1 tablet = 80 mg, By Mouth, Daily, # 90 tablet, 1 Refills, Maintenance, 01/24/22 14:39:00 EST, Tablet, [facility], 150, cm, 08/19/21 13:24:00 EDT, Height, 91, kg, 04/19/21 14:09:00 EDT, Dry Weight Start Date: 01/24/22 Status: OrderedBasaglar KwikPen 100 units/mL subcutaneous solution = 30 units, Subcutaneous Infusion, Daily at bedtime, # 15 mL, 5 Refills, Maintenance, 07/20/21 9:21:00 EDT, [facility], 150, cm, 07/20/21 9:00:00 [...] Maintenance, 02/11/22 21:27:00EDT, Route to Pharmacy Electronically, [facility], 150, cm, 08/19/21 13:24:00 EDT, Height, 91, kg, 04/19/21 14:09:00 EDT, Dry Weight Start Date: 02/11/22 Status: Orderedlosartan 100 mg oral tablet 1 tablet, By Mouth, Daily, # 90 tablet, 0 Refills, Maintenance, 02/11/22 21:27:00 EDT, [facility], 150, cm, 08/19/21 13:24:00 EDT, Height, 91, kg, 04/19/21 14:09:00 EDT, Dry Weight Start Date: 02/11/22 Status: OrderedmetFORMIN 500 mg oral tablet 1 tablet = 500 mg, By Mouth, 2 times a day, # 180 tablet, 1 Refills, Maintenance, 02/17/22 14:09:00 EDT, Tablet, [facility], 150, cm, 02/17/22 13:07:00 EDT, Height, 91, kg, 04/19/21 14:09:00EDT, Dry Weight Start Date: 02/17/22 Status: Orderedmetoprolol 25 mg oral tablet 25 mg, 1, tablet, By Mouth, 2 times a day, # 180 tablet, Refills 3, Tot. Refills 3, Maintenance, 07/20/21 9:21:00 EDT, Route to Pharmacy Electronically, [facility], 150, cm, 07/20/21 9:00:00EDT, [...] Supply Start Date: 10/12/20 Status: OrderedPEN NEEDLES [id number] PEN NEEDLES [id number], See Instructions, # 100 each, Refills 3, Tot. Refills 3, Maintenance, USE DIRECTED WITH INSULIN DAILY FAX [phone], 07/01/21 13:25:00 EDT, Compound, 150, cm, 06/15/21 14:56:00 EDT, Height, 91, kg, 04/19/21 14:09:00 EDT, Dry We... Start Date: 07/01/21 Status: OrderedProAir HFA 90 mcg/inh inhalation aerosol with adapter 2, puffs, Inhalation, Every 6 hours, PRN, # 8.5 Gm, Refills 1, Tot. Refills 1, Maintenance, 06/23/2011:27:00 EDT, Aerosol, Route to Pharmacy Electronically, [id number], [facility], 149.86, cm, 06/23/20 10:59:00 [...] BE TAKEN IN ADDITION TO LIPITOR FAX [phone], # 90 tablet, 1 Refills, Maintenance, 07/20/21 9:21:00 EDT, Tablet, [facility], 150, cm, 07/20/21 9:00:00 [...] infarction (NSTEMI)(Confirmed) Hypertension(Confirmed) Active Urinary frequency(Confirmed) Active FDC (current) use of Active insulin(Confirmed) Depression, major, in Active remission(Confirmed) Sleep apnea(Confirmed) Active Osteoarthritis(Confirmed)7 Active Hypercholesterolemia(Confirmed) Active Resting tremor(Confirmed) Active Severe obesity(Confirmed) Active Shoulder pain, right(Confirmed) Active Type 2 diabetes mellitus(Confirmed) Active Unsteady gait(Confirmed) Active Vertigo(Confirmed) Active 1Status post excision c31asdg 18123Bp chest CT 2014.4colo 43197SFX 54211ocea 13200Ndprmhoma Knees and Back Vital Signs Most recent to oldest [Reference Range]: 1 Height 150 cm (02/17/22 1:07 PM) Weight 93.5 kg (02/17/22 1:07 PM) Oxygen Saturation [94-100 %] 98 % (02/17/22 1:07 PM) Pulse Rate [55-90 bpm] 64 bpm (02/17/22 1:07 PM) Body Mass Index [18.5-24.99] 41.56 *>HHI* (02/17/22 1:07 PM) Blood Pressure [90-138/55-84 mm Hg] 140/72 mm Hg *H* (02/17/22 1:07 PM) Respiratory Rate [16-30 br/min] 12 br/min *L* (02/17/22 1:07 PM) Mode of Delivery (Oxygen) Room air (02/17/22 1:07 PM) Blood pressure sites Arm, right (02/17/22 1:07 PM) Weight Obtained Via Standing scale (02/17/22 1:07 PM) Social History Social History Type Response Smoking Status Former smoker; Tobacco user in household: No; Other: Quit this June 2015; entered on: 08/17/16 Sex
--- OUTSIDE RECORDS SUMMARY | 2023-01-09 20:56 | XMS_ITS | Continuity of Care Document ---
:1945 Author Organization [facility] Address [address] [place] [address]- Care Team Providers Name Role Phone Columba WATSON, Nahid Washington Primary Care Physician Encounter [facility] Date(s): 12/31/20 - 01/07/21 [facility] [address] [place] [address]- Attending Physician: Erika Lynn NP Referring Physician: [...] 1Result Comment: [10/19/2017] pt had done @ [facility] high [id number] History: [id number] Comment: [09/15/2015] HIGH [id number] Comment: [07/28/2017] AT [facility] Medications albuterol-ipratropium 3 mg-0.5 mg/3 ml [...] 12/31/20 13:23:00 EST, [facility], [facility] [...] Refills, Maintenance, 10/26/20 11:45:00 EST, Tablet, [facility], 150, cm, 10/23/20 14:48:00 EST, Height, 90.9, kg, 10/09/20 4:37:00 EST, DryWeight Start Date: 10/26/20 Status: OrderedBasaglar KwikPen 100 units/mL subcutaneous solution = 30 units, Subcutaneous Infusion, Daily at bedtime, # 15 mL, 5 Refills, Maintenance, 02/18/20 9:59:00 EDT, [facility], 149.86, cm, 01/20/20 13:55:00 [...] Refills, Maintenance, 07/24/20 14:34:00 EDT, Aerosol, [facility], 149.86, cm, 07/24/20 14:16:00 EDT, Height, 90.9, kg, 12/10/19 7:01:00 EST, Dry Weight Start Date: 07/24/20 Status: OrderedFLUoxetine 20 mg oral capsule 20 mg, 1, capsule, By Mouth, Daily, # 90 capsule, Refills 1, Tot. Refills 1, Maintenance, 08/12/20 13:03:00 EDT, Route to Pharmacy Electronically, [facility], 149.86, cm, 07/24/20 14:16:00 EDT, Height, 90.9, kg, 12/10/19 7:01:00 EST, Dry We... Start Date: 08/12/20 Status: Orderedlosartan 100 mg oral tablet 1 tablet = 100 mg, By Mouth, Daily, # 90 tablet, 3 Refills, Maintenance, 02/10/20 14:08:00 EDT, Tablet, [facility], 149.86, cm, 01/20/20 13:55:00 EST, Height, 90.9, kg, 12/10/19 7:01:00 EST,Dry Weight Start Date: 02/10/20 Status: OrderedmetFORMIN 500 mg oral tablet 1 tablet = 500 mg, By Mouth, 2 times a day, # 180 tablet, 0 Refills, Maintenance, 11/16/20 14:50:00 EST, Tablet, [facility], 150, cm, 10/23/20 14:48:00 EST, Height, 90.9, kg, 10/09/20 4:37:00 EST, Dry Weight Start Date: 11/16/20 Status: Orderedmetoprolol 25 mg oral tablet 25 mg, 1, tablet, By Mouth, 2 times a day, # 180 tablet, Refills 0, Tot. Refills 0, Maintenance, 10/26/20 11:45:00 EST, Route to Pharmacy Electronically, [facility], 150, cm, 10/23/20 14:48:00 EST, Height, 90.9, kg, 10/09/20 4:37:00 EST, DrRicardo.. Start Date: 10/26/20 Status: Orderednebulizer nebulizer, See [...] Maintenance, 03/19/20 16:20:00 EDT, ER Tablet, [facility], 149.86, cm, 01/20/20 13:55:00 EST, Height, 90.9, kg, 12/10/19 7:01:00 EST, Dry Weight Start Date: 03/19/20 Status: OrderedPEN NEEDLES [id number] PEN NEEDLES 15BF1TN, See Instructions, # 100 each, Refills 11, Tot. Refills 11, Maintenance, USE DIRECTED WITH INSULIN DAILY FAX [phone], 04/30/20 12:29:00 EDT, Compound, 149.86, cm, 01/20/20 13:55:00 EST, Height, 90.9, kg, 12/10/19 7:01:00 EST,... Start Date: 04/30/20 Status: OrderedPlavix 75 mg oral tablet 75 mg, 1, tablet, By Mouth, Daily, # 30 tablet, Refills 11, Tot. Refills 11, Maintenance, 03/19/20 16:21:00 EDT, Route to Pharmacy Electronically, [facility], 149.86, cm, 01/20/20 13:55:00 EST, Height, 90.9, kg, 12/10/19 7:01:00 EST, Dry We... Start Date: 03/19/20 Stop Date: 03/14/21 Status: OrderedProAir HFA 90 mcg/inh inhalation aerosol with adapter 2, puffs, Inhalation, Every 6 hours, PRN, # 8.5 Gm, Refills 1, Tot. Refills 1, Maintenance, 06/23/2011:27:00 EDT, Aerosol, Route to Pharmacy Electronically, [id number], [facility], 149.86, cm, 06/23/20 10:59:00 ED... Start Date: 06/23/20 Status: OrderedVentolin HFA 108 mcg/inh inhalation aerosol with adapter 2 puffs, Inhalation, Every 6 hours, # 1 each, 3 Refills, Maintenance, 06/23/20 16:10:00 EDT[facility] 149.86, cm, 06/23/20 10:59:00 EDT, [...] TAKEN IN ADDITION TO LIPITOR FAX [phone], # 90 tablet, 1 Refills, Maintenance, 09/11/20 14:24:00 EDT, Tablet, [facility], 149.86, cm, 08/28/20 9:59:00 EDT, Height, 90.9, kg, 12/10/19 7:01:00 EST,... Start Date: 09/11/20 Status: Ordered Problem List Condition Effective Dates Status Health Status Informant Non-ST elevation RI Active (NSTEMI)(Confirmed) Mild anemia(Confirmed) Active Autonomic neuropathy(Confirmed) [...] gait(Confirmed) Active Vertigo(Confirmed) Active 1Status post excision g91lnjv 30714Xk chest CT 2014.4colo 71400FWC 44140inal 73610Cghadzzjr Knees and Back Vital Signs Most recent to oldest [Reference Range]: 1 Height 150 cm (12/31/20 12:51 PM) Weight 90.9 kg (12/31/20 12:51 PM) Oxygen Saturation [94-100 %] 96 % (12/31/20 12:51 PM) Pulse Rate [55-90 bpm] 60 bpm (12/31/20 12:51 PM) Body Mass Index [18.5-24.99] 40.4 *>HHI* (12/31/20 12:51 PM) Blood Pressure [90-138/55-84 mm Hg] 128/74 mm Hg (12/31/20 12:51 PM) Blood pressure sites Arm, left (12/31/20 12:51 PM) Social History Social History Type Response Smoking Status Former smoker; Tobacco user in household: No; Other: Quit this June 2015; entered on: 08/17/16 Sex
--- OUTSIDE RECORDS SUMMARY | 2023-01-09 20:56 | XMS_ITS | Continuity of Care Document ---
:1945 Author Organization [facility] Adult Address [address] [place] [address]- Care Team Providers Name Role Phone Nahid Waterman MD Primary Care Physician Encounter [facility] [place] Date(s): 06/23/21 - 07/23/21 [facility] Adult [address] [place] [address]- Allergies, Adverse Reactions, Alerts Substance Reaction Severity [...] 1Result Comment: [10/19/2017] pt had done @ [facility] high [id number] History: [id number] Comment: [09/15/2015] HIGH [id number] Comment: [07/28/2017] AT [facility] Medications amLODIPine 2.5 mg oral tablet 2.5 mg, 1, tablet, By Mouth, Daily, # 90 tablet, Refills 1, Tot. Refills 1, Maintenance, 07/20/21 9:21:00 EDT, Route to Pharmacy Electronically, [facility], Partial fill upon patient requestif the prescription is for a schedule II opioid d... Start Date: 07/20/21 Status: Orderedaspirin 81 mg oral tablet, chewable 81 mg, 1, tablet, By Mouth, Daily, # 30 tablet, Refills 1, Tot. Refills 1, Maintenance, 11/02/19 14:07:39 EST, Route to Pharmacy Electronically, [facility], 149.86, cm, 11/02/19 12:12:42 EST, Height, 90.2, kg, 10/29/19 15:57:27 EST, Dry Weight Start Date: 11/02/19 Stop Date: 01/01/20 Status: Orderedatorvastatin 80 mg oral tablet 1 tablet = 80 mg, By Mouth, Daily, # 90 tablet, 1 Refills, Maintenance, 07/20/21 9:21:00 EDT, Tablet, [facility], 150, cm, 07/20/21 9:00:00 EDT, Height, 91, kg, 04/19/21 14:09:00 EDT, Dry Weight Start Date: 07/20/21 Status: OrderedBasaglar KwikPen 100 units/mL subcutaneous solution = 30 units, Subcutaneous Infusion, Daily at bedtime, # 15 mL, 5 Refills, Maintenance, 07/20/21 9:21:00 EDT, [facility], 150, cm, 07/20/21 9:00:00 EDT, [...] 9:21:00 EDT, Route to Pharmacy Electronically, [facility], 150, cm, 07/20/21 9:00:00 EDT, Height, 91, kg, 04/19/21 14:09:00 EDT, Dry Weight Start Date: 07/20/21 Status: Orderedketoconazole 2% topical cream 1 application, Topically, Daily, # 60 Gm, 0 Refills, Acute 07/30/21 0:00:00 EDT, 07/20/21 9:29:00 EDT, Cream, [facility], Partial fill upon patient request if the prescription is for a schedule II opioid drug., 1 application Topically Daily... Start Date: 07/20/21 Stop Date: 07/30/21 Status: Orderedlosartan 100 mg oral tablet 1 tablet, By Mouth, Daily, # 90 tablet, 1 Refills, Maintenance, 07/20/21 9:21:00 EDT, [facility], 150, cm, 07/20/21 9:00:00 EDT, Height, 91, kg, 04/19/21 14:09:00 EDT, Dry Weight Start Date: 07/20/21 Status: OrderedmetFORMIN 500 mg oral tablet 1 tablet = 500 mg, By Mouth, 2 times a day, # 180 tablet, 0 Refills, Maintenance, 07/20/21 9:21:00 EDT, Tablet, [facility], 150, cm, 07/20/21 9:00:00 EDT, Height, 91, kg, 04/19/21 14:09:00 EDT, Dry Weight Start Date: 07/20/21 Status: Orderedmetoprolol 25 mg oral tablet 25 mg, 1, tablet, By Mouth, 2 times a day, # 180 tablet, Refills 3, Tot. Refills 3, Maintenance, 07/20/21 9:21:00 EDT, Route to Pharmacy Electronically, [facility], 150, cm, 07/20/21 9:00:00EDT, Height, [...] Supply Start Date: 10/12/20 Status: OrderedPEN NEEDLES [id number] PEN NEEDLES [id number], See Instructions, # 100 each, Refills 3, Tot. Refills 3, Maintenance, USE DIRECTED WITH INSULIN DAILY FAX [phone], 07/01/21 13:25:00 EDT, Compound, 150, cm, 06/15/21 14:56:00 EDT, Height, 91, kg, 04/19/21 14:09:00 EDT, Dry We... Start Date: 07/01/21 Status: OrderedProAir HFA 90 mcg/inh inhalation aerosol with adapter 2, puffs, Inhalation, Every 6 hours, PRN, # 8.5 Gm, Refills 1, Tot. Refills 1, Maintenance, 06/23/2011:27:00 EDT, Aerosol, Route to Pharmacy Electronically, [id number], [facility], 149.86, cm, 06/23/20 10:59:00 ED... [...] BE TAKEN IN ADDITION TO LIPITOR FAX [phone], # 90 tablet, 1 Refills, Maintenance, 07/20/21 9:21:00 EDT, Tablet, [facility], 150, cm, 07/20/21 9:00:00 EDT, Height, 91, kg, 04/19/21 14:09:00 EDT, Dry... Start Date: 07/20/21 Status: Ordered Problem List Condition Effective Dates Status Health Status Informant Non-ST elevation [place] Active (NSTEMI)(Confirmed) Mild anemia(Confirmed) Active Autonomic neuropathy(Confirmed) [...] gait(Confirmed) Active Vertigo(Confirmed) Active 1Status post excision [id number] 34486Kl chest CT 2014.4colo 49431CQD 67198ohnh 48955Xazqggvie Knees and Back Social History Social History Type Response Smoking Status Former smoker; Tobacco user in household: No; Other: Quit this June 2015; entered on: 08/17/16 Sex
--- OUTSIDE RECORDS SUMMARY | 2023-01-09 20:56 | XMS_ITS | Continuity of Care Document ---
:1945 Author Organization [facility] Adult Address [address] [place] [address]- Care Team Providers Name Role Phone Nahid Waterman MD Primary Care Physician [place] [facility] [place](s): 06/23/20 - 06/30/20 [facility] [address] [place] [address]- [facility] Attending Physician: Nahid Waterman MD Allergies, Adverse Reactions, Alerts Substance Reaction Severity Status Adhesive Bandage Active Bee Stings SWELLING AT SITE ONLY Active Percocet 5325 Active Immunizations Given and Recorded Vaccine Date [...] 1Result Comment: [10/19/2017] pt had done @ [facility] high [id number] History: [id number] Comment: [09/15/2015] HIGH [id number] Comment: [07/28/2017] AT [facility] Medications amLODIPine 10 mg oral tablet 10 mg, 1, tablet, By Mouth, Daily, # 90 tablet, Refills 3, Tot. Refills 3, Maintenance, 01/20/20 14:18:00 EST, Route to Pharmacy Electronically, [facility], 149.86, cm, 01/20/20 13:55:00 EST, Height, 90.9, kg, 01/21/20 7:01:00 EST, Dry Weight Start Date: 01/20/20 [...] 1 Refills, Maintenance, 04/20/20 9:42:00 EDT, Tablet, [facility], 149.86, cm, 01/20/20 13:55:00 EST, Height, 90.9, kg, 12/10/19 7:01:00 EST, Dry Weight Start Date: 04/20/20 Status: OrderedBasaglar KwikPen 100 units/mL subcutaneous solution = 30 units, Subcutaneous Infusion, Daily at bedtime, # 15 mL, 5 Refills, Maintenance, 02/18/20 9:59:00 EDT, [facility], 149.86, cm, 01/20/20 13:55:00 [...] 02/10/20 11:51:00 EDT, Route to Pharmacy Electronically, [facility], 149.86, cm, 01/20/20 13:55:00 EST, Height, 90.9, kg, 12/10/19 7:01:00 EST, Dry We... Start Date: 02/10/20 Status: Orderedlosartan 100 mg oral tablet 1 tablet = 100 mg, By Mouth, Daily, # 90 tablet, 3 Refills, Maintenance, 02/10/20 14:08:00 EDT, Tablet, [facility], 149.86, cm, 01/20/20 13:55:00 EST, Height, 90.9, kg, 12/10/19 7:01:00 EST,Dry Weight Start Date: 02/10/20 Status: OrderedmetFORMIN 500 mg oral tablet 1 tablet = 500 mg, By Mouth, 2 times a day, # 180 tablet, 0 Refills, Maintenance, 04/30/20 13:48:00 EDT, Tablet, [facility], 149.86, cm, 01/20/20 13:55:00 EST, Height, 90.9, kg, 12/10/19 7:01:00 EST, Dry Weight Start Date: 04/30/20 Status: Orderedmetoprolol 25 mg oral tablet 25 mg, 1, tablet, By Mouth, 2 times a day, # 60 tablet, Refills 1, Tot. Refills 1, Maintenance, 11/02/19 14:08:05 EST, Route to Pharmacy Electronically, [facility], 149.86, cm, 11/02/19 12:12:42 EST, Height, 90.2, kg, 10/29/19 15:57:27 EST,... Start Date: 11/02/19 Stop Date: 01/01/20 Status: Orderedoxybutynin 10 mg/24 hr oral tablet, extended release 1 tablet = 10 mg, By Mouth, Daily, # 30 tablet, 11 Refills, Maintenance, 03/19/20 16:20:00 EDT, ER Tablet, [facility], 149.86, cm, 01/20/20 13:55:00 EST, Height, 90.9, kg, 12/10/19 7:01:00 EST, Dry Weight Start Date: 03/19/20 Status: OrderedPEN NEEDLES [id number] PEN NEEDLES [id number], See Instructions, # 100 each, Refills 11, Tot. Refills 11, Maintenance, USE DIRECTED WITH INSULIN DAILY FAX [phone], 04/30/20 12:29:00 EDT, Compound, 149.86, cm, 01/20/20 13:55:00 EST, Height, 90.9, kg, 12/10/19 7:01:00 EST,... Start Date: 04/30/20 Status: OrderedPlavix 75 mg oral tablet 75 mg, 1, tablet, By Mouth, Daily, # 30 tablet, Refills 11, Tot. Refills 11, Maintenance, 03/19/20 16:21:00 EDT, Route to Pharmacy Electronically, [facility], 149.86, cm, 01/20/20 13:55:00 EST, Height, 90.9, kg, 12/10/19 7:01:00 EST, Dry We... Start Date: 03/19/20 Stop Date: 03/14/21 Status: OrderedProAir HFA 90 mcg/inh inhalation aerosol with adapter 2, puffs, Inhalation, Every 6 hours, PRN, # 8.5 Gm, Refills 1, Tot. Refills 1, Maintenance, 06/23/2011:27:00 EDT, Aerosol, Route to Pharmacy Electronically, [id number], [facility], 149.86, cm, 06/23/20 10:59:00 ED... Start Date: 06/23/20 Status: OrderedVentolin HFA 108 mcg/inh inhalation aerosol with adapter 2 puffs, Inhalation, Every 6 hours, # 1 each, 3 Refills, Maintenance, 06/23/20 16:10:00 EDT, [facility], 149.86, cm, 06/23/20 10:59:00 EDT, Height, [...] BE TAKEN IN ADDITION TO LIPITOR FAX [phone], # 90 tablet, 1 Refills, Maintenance, 03/24/20 10:29:00 EDT, Tablet, [facility], 149.86, cm, 01/20/20 13:55:00 EST, Height, 90.9, kg, 12/10/19 7:01:00 EST... Start Date: 03/24/20 Status: Ordered Problem List Condition Effective Dates Status Health Status Informant Non-ST elevation [place] Active (NSTEMI)(Confirmed) Mild anemia(Confirmed) Active Autonomic neuropathy(Confirmed) [...] gait(Confirmed) Active Vertigo(Confirmed) Active 1Status post excision [id number] 93975Po chest CT 2014.4colo 92135HLG 53057eraj 84271Ysgamiydz Knees and Back Vital Signs Most recent to oldest [Reference Range]: 1 Height 149.86 cm (06/23/20 10:59 AM) Weight 93.8 kg (06/23/20 10:59 AM) Oxygen Saturation [94-100 %] 93 % *L* (06/23/20 10:59 AM) Pulse Rate [55-90 bpm] 60 bpm (06/23/20 10:59 AM) Body Mass Index [18.5-24.99] 41.77 *>HHI* (06/23/20 10:59 AM) Blood Pressure [90-138/55-84 mm Hg] 128/68 mm Hg (06/23/20 10:59 AM) Respiratory Rate [16-30 br/min] 12 br/min *L* (06/23/20 10:59 AM) Temperature [96.8-100.4 DegF] 98.1 DegF (06/23/20 10:59 AM) Mode of Delivery (Oxygen) Room air (06/23/20 10:59 AM) Blood pressure sites Arm, left (06/23/20 10:59 AM) Temperature Route Oral (06/23/20 10:59 AM) Weight Obtained Via Standing scale (06/23/20 10:59 AM) Social History Social History Type Response Smoking Status Former smoker; Tobacco user in household: No; Other: Quit this June 2015; entered on: 08/17/16 Sex
--- OUTSIDE RECORDS SUMMARY | 2023-01-09 20:56 | XMS_ITS | Continuity of Care Document ---
:1945 Author Organization [facility] Adult Address [address] [place] [address]- Care Team Providers Name Role Phone Nahid Waterman MD Primary Care Physician Encounter [facility] [place] [place] [id number] Date(s): 11/27/20 - 12/27/20 [facility] Adult [address] [place] [address]- Attending Physician: Admtr, [id number] Admitting Physician: Admtr, Ar8 Referring Physician: Admtr, Ar8 Allergies, Adverse Reactions, [...] 1Result Comment: [10/19/2017] pt had done @ [facility] high [id number] History: [id number] Comment: [09/15/2015] HIGH [id number] Comment: [07/28/2017] AT [facility] Medications albuterol-ipratropium 3 mg-0.5 mg/3 ml [...] 01/20/20 14:18:00 EST, Route to Pharmacy Electronically, [facility], 149.86, cm, 01/20/20 13:55:00 EST, Height, 90.9, kg, 12/10/19 7:01:00 EST, Dry Weight Start Date: 01/20/20 Status: Orderedaspirin 81 mg oral tablet, chewable 81 mg, 1, tablet, By Mouth, Daily, # 30 tablet, Refills 1, Tot. Refills 1, Maintenance, 11/02/19 14:07:39 EST, Route to Pharmacy Electronically, [facility], 149.86, cm, 11/02/19 12:12:42 EST, Height, 90.2, kg, 10/29/19 15:57:27 EST, Dry Weight Start Date: 11/02/19 Stop Date: 01/01/20 Status: Orderedatorvastatin 80 mg oral tablet 1 tablet = 80 mg, By Mouth, Daily, # 90 tablet, 1 Refills, Maintenance, 10/26/20 11:45:00 EST, Tablet, [facility], 150, cm, 10/23/20 14:48:00 EST, Height, 90.9, kg, 10/09/20 4:37:00 EST, DryWeight Start Date: 10/26/20 Status: OrderedBasaglar KwikPen 100 units/mL subcutaneous solution = 30 units, Subcutaneous Infusion, Daily at bedtime, # 15 mL, 5 Refills, Maintenance, 02/18/20 9:59:00 EDT, [facility], 149.86, cm, 01/20/20 13:55:00 [...] 6 Refills, Maintenance, 07/24/20 14:34:00 EDT, Aerosol, [facility], 149.86, cm, 07/24/20 14:16:00 EDT, Height, 90.9, kg, 12/10/19 7:01:00 EST, Dry Weight Start Date: 07/24/20 Status: OrderedFLUoxetine 20 mg oral capsule 20 mg, 1, capsule, By Mouth, Daily, # 90 capsule, Refills 1, Tot. Refills 1, Maintenance, 08/12/20 13:03:00 EDT, Route to Pharmacy Electronically, [facility], 149.86, cm, 07/24/20 14:16:00 [...] 3 Refills, Maintenance, 02/10/20 14:08:00 EDT, Tablet, [facility], 149.86, cm, 01/20/20 13:55:00 EST, Height, 90.9, kg, 12/10/19 7:01:00 EST,Dry Weight Start Date: 02/10/20 Status: OrderedmetFORMIN 500 mg oral tablet 1 tablet = 500 mg, By Mouth, 2 times a day, # 180 tablet, 0 Refills, Maintenance, 11/16/20 14:50:00 EST, Tablet, [facility], 150, cm, 10/23/20 14:48:00 EST, Height, 90.9, kg, 10/09/20 4:37:00 EST, Dry Weight Start Date: 11/16/20 Status: Orderedmetoprolol 25 mg oral tablet 25 mg, 1, tablet, By Mouth, 2 times a day, # 180 tablet, Refills 0, Tot. Refills 0, Maintenance, 10/26/20 11:45:00 EST, Route to Pharmacy Electronically, [facility], 150, cm, 10/23/20 14:48:00 [...] Refills, Maintenance, 03/19/20 16:20:00 EDT, ER Tablet, [facility], 149.86, cm, 01/20/20 13:55:00 EST, Height, 90.9, kg, 12/10/19 7:01:00 EST, Dry Weight Start Date: 03/19/20 Status: OrderedPEN NEEDLES [id number] PEN NEEDLES [id number], See Instructions, # 100 each, Refills 11, Tot. Refills 11, Maintenance, USE DIRECTED WITH INSULIN DAILY FAX [phone], 04/30/20 12:29:00 EDT, Compound, 149.86, cm, 01/20/20 13:55:00 EST, Height, 90.9, kg, 12/10/19 7:01:00 EST,... Start Date: 04/30/20 Status: OrderedPlavix 75 mg oral tablet 75 mg, 1, tablet, By Mouth, Daily, # 30 tablet, Refills 11, Tot. Refills 11, Maintenance, 03/19/20 16:21:00 EDT, Route to Pharmacy Electronically, [facility], 149.86, cm, 01/20/20 13:55:00 EST, Height, 90.9, kg, 12/10/19 7:01:00 EST, Dry We... Start Date: 03/19/20 Stop Date: 03/14/21 Status: OrderedProAir HFA 90 mcg/inh inhalation aerosol with adapter 2, puffs, Inhalation, Every 6 hours, PRN, # 8.5 Gm, Refills 1, Tot. Refills 1, Maintenance, 06/23/2011:27:00 EDT, Aerosol, Route to Pharmacy Electronically, [id number], [facility], 149.86, cm, 06/23/20 10:59:00 ED... Start Date: 06/23/20 Status: OrderedVentolin HFA 108 mcg/inh inhalation aerosol with adapter 2 puffs, Inhalation, Every 6 hours, # 1 each, 3 Refills, Maintenance, 06/23/20 16:10:00 EDT, [facility]278, 149.86, cm, 06/23/20 10:59:00 [...] BE TAKEN IN ADDITION TO LIPITOR FAX [phone], # 90 tablet, 1 Refills, Maintenance, 09/11/20 [...] gait(Confirmed) Active Vertigo(Confirmed) Active 1Status post excision [id number] 16871Ze chest CT 2014.4colo 62272AYH 09116oblr 85069Bqikivhwa Knees and Back Social History Social History Type Response Smoking Status Former smoker; Tobacco user in household: No; Other: Quit this June 2015; entered on: 08/17/16 Sex
--- OUTSIDE RECORDS SUMMARY | 2023-01-09 20:56 | XMS_ITS | Continuity of Care Document ---
:1945 Author Organization [facility] Address [address] [place] [address]- Care Team Providers Name Role Phone Columba WATSON, Nahid [place] Primary Care Physician Encounter 04/25/21 - 05/19/21 [facility] [address] [place] [address]- Discharge Disposition: GOALS MET Allergies, Adverse Reactions, Alerts Substance Reaction Severity [...] 1Result Comment: [10/19/2017] pt had done @ [facility] high [id number] History: [id number] Comment: [09/15/2015] HIGH [id number] Comment: [07/28/2017] AT [facility] Medications amLODIPine 5 mg oral tablet 5 mg, 1, tablet, By Mouth, Daily, # 90 tablet, Refills 1, Tot. Refills 1, Maintenance, 12/31/20 13:23:00 EST, Route to Pharmacy Electronically, [facility], Partial fill upon patient request if the prescription is for a schedule II opioid . Start Date: 12/31/20 Status: Orderedaspirin 81 mg oral tablet, chewable 81 mg, 1, tablet, By Mouth, Daily, # 30 tablet, Refills 1, Tot. Refills 1, Maintenance, 11/02/19 14:07:39 EST, Route to Pharmacy Electronically, [facility], 149.86, cm, 11/02/19 12:12:42 EST, Height, 90.2, kg, 10/29/19 15:57:27 EST, Dry Weight Start Date: 11/02/19 Stop Date: 01/01/20 Status: Orderedatorvastatin 80 mg oral tablet 1 tablet = 80 mg, By Mouth, Daily, # 90 tablet, 1 Refills, Maintenance, 04/26/21 9:55:00 EDT, Tablet, [facility], 150, cm, 04/21/21 15:26:00 EDT, Height, 91, kg, 04/19/21 14:09:00 EDT, Dry Weight Start Date: 04/26/21 Status: OrderedBasaglar KwikPen 100 units/mL subcutaneous solution = 30 units, Subcutaneous Infusion, Daily at bedtime, # 15 mL, 5 Refills, Maintenance, 03/09/21 13:30:00 EDT, [facility], 150, cm, 12/31/20 12:51:00 [...] 01/30/21 14:39:00 EST, Route to Pharmacy Electronically, [facility], 150, cm, 12/31/20 12:51:00 EST,Height, 90.9, kg, 10/09/20 4:37:00 EST, Dry Weight Start Date: 01/30/21 Status: Orderedlosartan 100 mg oral tablet 1 tablet, By Mouth, Daily, # 90 tablet, 1 Refills, Maintenance, 05/18/21 10:58:00 EDT, [facility], 150, cm, 04/21/21 15:26:00 EDT, Height, 91, kg, 04/19/21 14:09:00 EDT, Dry Weight Start Date: 05/18/21 Status: OrderedmetFORMIN 500 mg oral tablet 1 tablet = 500 mg, By Mouth, 2 times a day, # 180 tablet, 0 Refills, Maintenance, 03/19/21 15:48:00 EDT, Tablet, [facility], 150, cm, 12/31/20 12:51:00 EST, Height, 90.9, kg, 10/09/20 4:37:00 EST, Dry Weight Start Date: 03/19/21 Status: Orderedmetoprolol 25 mg oral tablet 25 mg, 1, tablet, By Mouth, 2 times a day, # 180 tablet, Refills 3, Tot. Refills 3, Maintenance, 04/22/21 12:59:00 EDT, Route to Pharmacy Electronically, [facility], 150, cm, 04/21/21 15:26:00 EDT, Height, [...] 13:19:00 EST, Supply Start Date: 10/12/20 Status: Orderednystatin topical 246629 u/gm powder See Instructions, Topically 2 times a day, # 15 Gm, 0 Refills, Acute 05/21/21 8:00:00 EDT, 04/21/21 15:34:00 EDT, Powder, [facility], Partial fill upon patient request if the prescription isfor a schedule II opioid drug., Topically 2 times... Start Date: 04/21/21 Stop Date: 05/21/21 Status: OrderedPEN NEEDLES [id number] PEN NEEDLES 66XL9ON, See Instructions, # 100 each, Refills 11, Tot. Refills 11, Maintenance, USE DIRECTED WITH INSULIN DAILY FAX [phone], 03/19/21 15:48:00 EDT, Compound, 150, cm, 12/31/20 12:51:00EST, Height, 90.9, kg, 10/09/20 4:37:00 EST, Dry... Start Date: 03/19/21 Status: OrderedPlavix 75 mg oral tablet 75 mg, 1, tablet, By Mouth, Daily, # 30 tablet, Refills 11, Tot. Refills 11, Maintenance, 03/22/21 12:29:00 EDT, Route to Pharmacy Electronically, [facility], 150, cm, 12/31/20 12:51:00 EST,Height, 90.9, kg, 10/09/20 4:37:00 EST, Dry Weight Start Date: 03/22/21 Stop Date: 03/17/22 Status: OrderedProAir HFA 90 mcg/inh inhalation aerosol with adapter 2, puffs, Inhalation, Every 6 hours, PRN, # 8.5 Gm, Refills 1, Tot. Refills 1, Maintenance, 06/23/2011:27:00 EDT, Aerosol, Route to Pharmacy Electronically, [id number], [facility], 149.86, cm, 06/23/20 10:59:00 ED... Start Date: 06/23/20 Status: OrderedWheeled walker with seat Wheeled walker with seat, See Instructions, # 1 each, Refills 0, Tot. Refills 0, Maintenance, DX: Unsteady balance, 07/16/15 13:49:32, Compound Start Date: 07/16/15 Status: OrderedZetia 10 mg oral tablet 1 tablet = 10 mg, By Mouth, Daily, TO BE TAKEN IN ADDITION TO LIPITOR FAX [phone], # 90 tablet, 0 Refills, Maintenance, 03/19/21 15:48:00 EDT, Tablet, [facility], 150, cm, 12/31/20 12:51:00EST, Height, 90.9, kg, 10/09/20 4:37:00 EST D... Start Date: 03/19/21 Status: Ordered Problem List Condition Effective Dates Status Health Status Informant Non-ST elevation [place] Active (NSTEMI)(Confirmed) Mild anemia(Confirmed) Active Autonomic neuropathy(Confirmed) [...] gait(Confirmed) Active Vertigo(Confirmed) Active 1Status post excision b20sxds 03381Di chest CT 2014.4colo 24817PVY 36092cpnm 04209Nndjxwchf Knees and Back Social History Social History Type Response Smoking Status Former smoker; Tobacco user in household: No; Other: Quit this June 2015; entered on: 08/17/16 Sex
--- OUTSIDE RECORDS SUMMARY | 2023-01-09 20:56 | XMS_ITS | Continuity of Care Document ---
:1945 Author Organization [facility] Address [address] [place] [address]- Care Team Providers Name Role Phone Columba WATSON, Nahid Washington Primary Care Physician [facility] Date(s): 12/03/20 - 02/03/[address] [address] Attending Physician: Leah CHO, Erika Simmons Admitting Physician: Leah CHO, Erika Simmons Referring Physician: Leah CHO, Erika Simmons Allergies, Adverse Reactions, Alerts Substance Reaction Severity [...] 1Result Comment: [10/19/2017] pt had done @ [facility] high [id number] History: [id number] Comment: [09/15/2015] HIGH [id number] Comment: [07/28/2017] AT [facility] Medications albuterol-ipratropium 3 mg-0.5 mg/3 ml inhalation [...] 12/31/20 13:23:00 EST, Route to Pharmacy Electronically, [facility], Partial fill upon patient request if the prescription is for a schedule II opioid . Start Date: 12/31/20 Status: Orderedaspirin 81 mg oral tablet, chewable 81 mg, 1, tablet, By Mouth, Daily, # 30 tablet, Refills 1, Tot. Refills 1, Maintenance, 11/02/19 14:07:39 EST, Route to Pharmacy Electronically, [facility], 149.86, cm, 11/02/19 12:12:42 EST, Height, 90.2, kg, 10/29/19 15:57:27 EST, Dry Weight Start Date: 11/02/19 Stop Date: 01/01/20 Status: Orderedatorvastatin 80 mg oral tablet 1 tablet = 80 mg, By Mouth, Daily, # 90 tablet, 1 Refills, Maintenance, 10/26/20 11:45:00 EST, Tablet, [facility], 150, cm, 10/23/20 14:48:00 EST, Height, 90.9, kg, 10/09/20 4:37:00 EST, DryWeight Start Date: 10/26/20 Status: OrderedBasaglar KwikPen 100 units/mL subcutaneous solution = 30 units, Subcutaneous Infusion, Daily at bedtime, # 15 mL, 5 Refills, Maintenance, 02/18/20 9:59:00 EDT, [facility], 149.86, cm, 01/20/20 [...] 6 Refills, Maintenance, 07/24/20 14:34:00 EDT, Aerosol, [facility], 149.86, cm, 07/24/20 14:16:00 EDT, Height, 90.9, kg, 12/10/19 7:01:00 EST, Dry Weight Start Date: 07/24/20 Status: OrderedFLUoxetine 20 mg oral capsule 20 mg, 1, capsule, By Mouth, Daily, # 90 capsule, Refills 1, Tot. Refills 1, Maintenance, 01/30/21 14:39:00 EST, Route to Pharmacy Electronically, [facility], 150, cm, 12/31/20 12:51:00 EST,Height, 90.9, kg, 10/09/20 4:37:00 EST, Dry Weight Start Date: 01/30/21 Status: Orderedlosartan 100 mg oral tablet 1 tablet = 100 mg, By Mouth, Daily, # 90 tablet, 0 Refills, Maintenance, 01/30/21 14:42:00 EST, Tablet, [facility], 150, cm, 12/31/20 12:51:00 EST, Height, 90.9, kg, 10/09/20 4:37:00 EST, Dry Weight Start Date: 01/30/21 Status: OrderedmetFORMIN 500 mg oral tablet 1 tablet = 500 mg, By Mouth, 2 times a day, # 180 tablet, 0 Refills, Maintenance, 11/16/20 14:50:00 EST, Tablet, [facility], 150, cm, 10/23/20 14:48:00 EST, Height, 90.9, kg, 10/09/20 4:37:00 EST, Dry Weight Start Date: 11/16/20 Status: Orderedmetoprolol 25 mg oral tablet 25 mg, 1, tablet, By Mouth, 2 times a day, # 180 tablet, Refills 0, Tot. Refills 0, Maintenance, 01/30/21 14:42:00 EST, Route to Pharmacy Electronically, [facility], 150, cm, 12/31/20 12:51:00 EST, Height, 90.9, kg, 10/09/20 4:37:00 EST, DrRicardo.. Start Date: 01/30/21 Status: Orderednebulizer nebulizer, See [...] Refills, Maintenance, 03/19/20 16:20:00 EDT, ER Tablet, [facility], 149.86, cm, 01/20/20 13:55:00 EST, Height, 90.9, kg, 12/10/19 7:01:00 EST, Dry Weight Start Date: 03/19/20 Status: OrderedPEN NEEDLES 25QJ7OP PEN NEEDLES [id number], See Instructions, # 100 each, Refills 11, Tot. Refills 11, Maintenance, USE DIRECTED WITH INSULIN DAILY FAX [phone], 04/30/20 12:29:00 EDT, Compound, 149.86, cm, 01/20/20 13:55:00 EST, Height, 90.9, kg, 12/10/19 7:01:00 EST,... Start Date: 04/30/20 Status: OrderedPlavix 75 mg oral tablet 75 mg, 1, tablet, By Mouth, Daily, # 30 tablet, Refills 11, Tot. Refills 11, Maintenance, 03/19/20 16:21:00 EDT, Route to Pharmacy Electronically, [facility], 149.86, cm, 01/20/20 13:55:00 EST, Height, 90.9, kg, 12/10/19 7:01:00 EST, Dry We... Start Date: 03/19/20 Stop Date: 03/14/21 Status: OrderedProAir HFA 90 mcg/inh inhalation aerosol with adapter 2, puffs, Inhalation, Every 6 hours, PRN, # 8.5 Gm, Refills 1, Tot. Refills 1, Maintenance, 06/23/2011:27:00 EDT, Aerosol, Route to Pharmacy Electronically, [id number], [facility], 149.86, cm, 06/23/20 10:59:00 ED... Start Date: 06/23/20 Status: OrderedVentolin HFA 108 mcg/inh inhalation aerosol with adapter 2 puffs, Inhalation, Every 6 hours, # 1 each, 3 Refills, Maintenance, 06/23/20 16:10:00 EDT[facility], 149.86, cm, 06/23/20 10:59:00 EDT, Height, [...] TAKEN IN ADDITION TO LIPITOR FAX [phone], # 90 tablet, 1 Refills, Maintenance, 09/11/20 14:24:00 EDT, Tablet, [facility], 149.86, cm, 08/28/20 9:59:00 EDT, Height, 90.9, kg, 12/10/19 7:01:00 EST,... Start Date: 09/11/20 Status: Ordered Problem List Condition Effective Dates Status Health Status Informant Non-ST elevation MT Active (NSTEMI)(Confirmed) Mild anemia(Confirmed) Active Autonomic neuropathy(Confirmed) [...] gait(Confirmed) Active Vertigo(Confirmed) Active 1Status post excision [id number] 50440Lh chest CT 2014.4colo 82137MGA 30715kyfa 54649Ndppqqirz Knees and Back Social History Social History Type Response Smoking Status Former smoker; Tobacco user in household: No; Other: Quit this June 2015; entered on: 08/17/16 Sex
--- OUTSIDE RECORDS SUMMARY | 2023-01-09 20:56 | XMS_ITS | Continuity of Care Document ---
:1945 Author Organization [facility] Address [address] [place] [address]- Care Team Providers Name Role Phone Columba WATSON, Nahid Washington Primary Care Physician [facility] Date[facility]s): 12/31/20 - 01/30/21 [facility] [address] [place] [address]- Allergies, Adverse Reactions, Alerts Substance Reaction Severity [...] 1Result Comment: [10/19/2017] pt had done @ [facility] high [id number] History: [id number] Comment: [09/15/2015] HIGH [id number] Comment: [07/28/2017] AT [facility] Medications albuterol-ipratropium 3 mg-0.5 mg/3 [...] 12/31/20 13:23:00 EST, Route to Pharmacy Electronically, [facility], Partial fill upon patient request if the prescription is for a schedule II opioid drRicardo.. Start Date: 12/31/20 Status: Orderedaspirin 81 mg oral tablet, chewable 81 mg, 1, tablet, By Mouth, Daily, # 30 tablet, Refills 1, Tot. Refills 1, Maintenance, 11/02/19 14:07:39 EST, Route to Pharmacy Electronically, [facility], 149.86, cm, 11/02/19 12:12:42 EST, Height, 90.2, kg, 10/29/19 15:57:27 EST, Dry Weight Start Date: 11/02/19 Stop Date: 01/01/20 Status: Orderedatorvastatin 80 mg oral tablet 1 tablet = 80 mg, By Mouth, Daily, # 90 tablet, 1 Refills, Maintenance, 10/26/20 11:45:00 EST, Tablet, [facility], 150, cm, 10/23/20 14:48:00 EST, Height, 90.9, kg, 10/09/20 4:37:00 EST, DryWeight Start Date: 10/26/20 Status: OrderedBasaglar KwikPen 100 units/mL subcutaneous solution = 30 units, Subcutaneous Infusion, Daily at bedtime, # 15 mL, 5 Refills, Maintenance, 02/18/20 9:59:00 EDT, [facility], 149.86, cm, 01/20/20 13:55:00 [...] 6 Refills, Maintenance, 07/24/20 14:34:00 EDT, Aerosol, [facility], 149.86, cm, 07/24/20 14:16:00 EDT, Height, 90.9, kg, 12/10/19 7:01:00 EST, Dry Weight Start Date: 07/24/20 Status: OrderedFLUoxetine 20 mg oral capsule 20 mg, 1, capsule, By Mouth, Daily, # 90 capsule, Refills 1, Tot. Refills 1, Maintenance, 01/30/21 14:39:00 EST, Route to Pharmacy Electronically, [facility], 150, cm, 12/31/20 12:51:00 EST,Height, 90.9, kg, 10/09/20 4:37:00 EST, Dry Weight Start Date: 01/30/21 Status: Orderedlosartan 100 mg oral tablet 1 tablet = 100 mg, By Mouth, Daily, # 90 tablet, 0 Refills, Maintenance, 01/30/21 14:42:00 EST, Tablet, [facility], 150, cm, 12/31/20 12:51:00 EST, Height, 90.9, kg, 10/09/20 4:37:00 EST, Dry Weight Start Date: 01/30/21 Status: OrderedmetFORMIN 500 mg oral tablet 1 tablet = 500 mg, By Mouth, 2 times a day, # 180 tablet, 0 Refills, Maintenance, 11/16/20 14:50:00 EST, Tablet, [facility], 150, cm, 10/23/20 14:48:00 EST, Height, 90.9, kg, 10/09/20 4:37:00 EST, Dry Weight Start Date: 11/16/20 Status: Orderedmetoprolol 25 mg oral tablet 25 mg, 1, tablet, By Mouth, 2 times a day, # 180 tablet, Refills 0, Tot. Refills 0, Maintenance, 01/30/21 14:42:00 EST, Route to Pharmacy Electronically, [facility], 150, cm, 12/31/20 12:51:00 EST, Height, 90.9, kg, 10/09/20 4:37:00 EST, DrLila. Start Date: 01/30/21 Status: Orderednebulizer nebulizer, See [...] Refills, Maintenance, 03/19/20 16:20:00 EDT, ER Tablet, [facility], 149.86, cm, 01/20/20 13:55:00 EST, Height, 90.9, kg, 12/10/19 7:01:00 EST, Dry Weight Start Date: 03/19/20 Status: OrderedPEN NEEDLES 27GT8KN PEN NEEDLES 62RW8WI, See Instructions, # 100 each, Refills 11, Tot. Refills 11, Maintenance, USE DIRECTED WITH INSULIN DAILY FAX [phone], 04/30/20 12:29:00 EDT, Compound, 149.86, cm, 01/20/20 13:55:00 EST, Height, 90.9, kg, 12/10/19 7:01:00 EST,... Start Date: 04/30/20 Status: OrderedPlavix 75 mg oral tablet 75 mg, 1, tablet, By Mouth, Daily, # 30 tablet, Refills 11, Tot. Refills 11, Maintenance, 03/19/20 16:21:00 EDT, Route to Pharmacy Electronically, [facility], 149.86, cm, 01/20/20 13:55:00 EST, Height, 90.9, kg, 12/10/19 7:01:00 EST, Dry We... Start Date: 03/19/20 Stop Date: 03/14/21 Status: OrderedProAir HFA 90 mcg/inh inhalation aerosol with adapter 2, puffs, Inhalation, Every 6 hours, PRN, # 8.5 Gm, Refills 1, Tot. Refills 1, Maintenance, 06/23/2011:27:00 EDT, Aerosol, Route to Pharmacy Electronically, [id number], [facility], 149.86, cm, 06/23/20 10:59:00 ED... Start Date: 06/23/20 Status: OrderedVentolin HFA 108 mcg/inh inhalation aerosol with adapter 2 puffs, Inhalation, Every 6 hours, # 1 each, 3 Refills, Maintenance, 06/23/20 16:10:00 EDT[facility], 149.86, cm, 06/23/20 10:59:00 EDT, Height, [...] BE TAKEN IN ADDITION TO LIPITOR FAX [phone], # 90 tablet, 1 Refills, Maintenance, 09/11/20 14:24:00 EDT, Tablet, [facility], 149.86, cm, 08/28/20 9:59:00 [...] gait(Confirmed) Active Vertigo(Confirmed) Active 1Status post excision [id number] 59189Nl chest CT 2015.4colo 31648RKP 15418ddfg 24063Obvrjwmbc Knees and Back Social History Social History Type Response Smoking Status Former smoker; Tobacco user in household: No; Other: Quit this June 2015; entered on: 08/17/16 Sex
--- OUTSIDE RECORDS SUMMARY | 2023-01-09 20:56 | XMS_ITS | Continuity of Care Document ---
:1945 Author Organization [facility] Address [address] [place] [address]- Care Team Providers Name Role Phone Nahid Waterman MD Primary Care Physician Encounter [facility] Date(s): 03/08/21 - 04/07/21 [facility] [address] [place] [address]- Allergies, Adverse Reactions, Alerts Substance Reaction Severity [...] 1Result Comment: [10/19/2017] pt had done @ [facility] high [id number] History: [id number] Comment: [09/15/2015] HIGH [id number] Comment: [07/28/2017] AT [facility] Medications albuterol-ipratropium 3 mg-0.5 mg/3 ml [...] 12/31/20 13:23:00 EST, Route to Pharmacy Electronically, [facility], Partial fill upon patient request if the prescription is for a schedule II opioid . Start Date: 12/31/20 Status: Orderedaspirin 81 mg oral tablet, chewable 81 mg, 1, tablet, By Mouth, Daily, # 30 tablet, Refills 1, Tot. Refills 1, Maintenance, 11/02/19 14:07:39 EST, Route to Pharmacy Electronically, [facility], 149.86, cm, 11/02/19 12:12:42 EST, Height, 90.2, kg, 10/29/19 15:57:27 EST, Dry Weight Start Date: 11/02/19 Stop Date: 01/01/20 Status: Orderedatorvastatin 80 mg oral tablet 1 tablet = 80 mg, By Mouth, Daily, # 90 tablet, 1 Refills, Maintenance, 10/26/20 11:45:00 EST, Tablet, [facility], 150, cm, 10/23/20 14:48:00 EST, Height, 90.9, kg, 10/09/20 4:37:00 EST, DryWeight Start Date: 10/26/20 Status: OrderedBasaglar KwikPen 100 units/mL subcutaneous solution = 30 units, Subcutaneous Infusion, Daily at bedtime, # 15 mL, 5 Refills, Maintenance, 03/09/21 13:30:00 EDT, [facility], 150, cm, 12/31/20 12:51:00 [...] 6 Refills, Maintenance, 07/24/20 14:34:00 EDT, Aerosol, [facility], 149.86, cm, 07/24/20 14:16:00 EDT, Height, 90.9, kg, 12/10/19 7:01:00 EST, Dry Weight Start Date: 07/24/20 Status: OrderedFLUoxetine 20 mg oral capsule 20 mg, 1, capsule, By Mouth, Daily, # 90 capsule, Refills 1, Tot. Refills 1, Maintenance, 01/30/21 14:39:00 EST, Route to Pharmacy Electronically, [facility], 150, cm, 12/31/20 12:51:00 EST,Height, 90.9, kg, 10/09/20 4:37:00 EST, Dry Weight Start Date: 01/30/21 Status: Orderedlosartan 100 mg oral tablet 1 tablet = 100 mg, By Mouth, Daily, # 90 tablet, 0 Refills, Maintenance, 01/30/21 14:42:00 EST, Tablet, [facility], 150, cm, 12/31/20 12:51:00 EST, Height, 90.9, kg, 10/09/20 4:37:00 EST, Dry Weight Start Date: 01/30/21 Status: OrderedmetFORMIN 500 mg oral tablet 1 tablet = 500 mg, By Mouth, 2 times a day, # 180 tablet, 0 Refills, Maintenance, 03/19/21 15:48:00 EDT, Tablet, [facility], 150, cm, 12/31/20 12:51:00 EST, Height, 90.9, kg, 10/09/20 4:37:00 EST, Dry Weight Start Date: 03/19/21 Status: Orderedmetoprolol 25 mg oral tablet 25 mg, 1, tablet, By Mouth, 2 times a day, # 180 tablet, Refills 0, Tot. Refills 0, Maintenance, 01/30/21 14:42:00 EST, Route to Pharmacy Electronically, [facility], 150, cm, 12/31/20 12:51:00 [...] Refills, Maintenance, 03/19/21 15:48:00 EDT, ER Tablet, [facility], 150, cm, 12/31/20 12:51:00 EST, Height, 90.9, kg, 10/09/20 4:37:00 EST, Dry Weight Start Date: 03/19/21 Status: OrderedPEN NEEDLES [id number] PEN NEEDLES 86WE9QD, See Instructions, # 100 each, Refills 11, Tot. Refills 11, Maintenance, USE DIRECTED WITH INSULIN DAILY FAX [phone], 03/19/21 15:48:00 EDT, Compound, 150, cm, 12/31/20 12:51:00EST, Height, 90.9, kg, 10/09/20 4:37:00 EST, Dry... Start Date: 03/19/21 Status: OrderedPlavix 75 mg oral tablet 75 mg, 1, tablet, By Mouth, Daily, # 30 tablet, Refills 11, Tot. Refills 11, Maintenance, 03/22/21 12:29:00 EDT, Route to Pharmacy Electronically, [facility], 150, cm, 12/31/20 12:51:00 EST,Height, 90.9, kg, 10/09/20 4:37:00 EST, Dry Weight Start Date: 03/22/21 Stop Date: 03/17/22 Status: OrderedProAir HFA 90 mcg/inh inhalation aerosol with adapter 2, puffs, Inhalation, Every 6 hours, PRN, # 8.5 Gm, Refills 1, Tot. Refills 1, Maintenance, 06/23/2011:27:00 EDT, Aerosol, Route to Pharmacy Electronically, [id number], [facility], 149.86, cm, 06/23/20 10:59:00 ED... Start Date: 06/23/20 Status: OrderedVentolin HFA 108 mcg/inh inhalation aerosol with adapter 2 puffs, Inhalation, Every 6 hours, # 1 each, 3 Refills, Maintenance, 06/23/20 16:10:00 EDT, [facility], 149.86, cm, 06/23/20 10:59:00 EDT, [...] BE TAKEN IN ADDITION TO LIPITOR FAX [phone], # 90 tablet, 0 Refills, Maintenance, 03/19/21 15:48:00 EDT, Tablet, [facility], 150, cm, 12/31/20 12:51:00EST, [...] gait(Confirmed) Active Vertigo(Confirmed) Active 1Status post excision [id number] 62510Of chest CT 2015.4colo 69003UWY 37796kuey 72984Qmddiflzg Knees and Back Social History Social History Type Response Smoking Status Former smoker; Tobacco user in household: No; Other: Quit this June 2015; entered on: 08/17/16 Sex
--- OUTSIDE RECORDS SUMMARY | 2023-01-09 20:56 | XMS_ITS | Continuity of Care Document ---
:1945 Author Organization [facility] Address [address] [place] [address]- Care Team Providers Name Role Phone Columba WATSON, Nahid Washington Primary Care Physician [facility]counter [facility] Date(s): 01/10/20 - 03/31/[address] [address]- [facility] Encounter Diagnosis Non-ST elevation (NSTEMI) myocardial infarction (Final) - Discharge Disposition: A-D/C Home Attending Physician: Aurelio Simpson MD Admitting Physician: Aurelio Simpson MD Referring Physician: Félix Evans MD Allergies, Adverse Reactions, Alerts Substance Reaction [...] 1Result Comment: [10/19/2017] pt had done @ [facility] high [id number] History: [id number] Comment: [09/15/2015] HIGH [id number] Comment: [07/28/2017] AT [facility] Medications amLODIPine 10 mg oral tablet 10 [...] 1 Refills, Maintenance, 11/04/19 10:48:01 EST, Tablet, [facility], [...] 0 Refills, Maintenance, 02/10/20 11:51:00 EDT, Tablet, [facility], 149.86, cm, 01/20/20 13:55:00 EST, Height, 90.9, kg, 12/10/19 7:01:00 EST, Dry Weight Start Date: 02/10/20 Status: Orderedmetoprolol 25 mg oral tablet 25 mg, 1, tablet, By Mouth, 2 times a day, # 60 tablet, Refills 1, Tot. Refills 1, Maintenance, 11/02/19 14:08:05 EST, Route to Pharmacy Electronically, [facility], 149.86, cm, 11/02/19 12:12:42 EST, Height, [...] Weight Start Date: 03/19/20 Status: OrderedPEN NEEDLES 95OG9LX PEN NEEDLES 57PH7TV, See Instructions, # 100 each, Refills 3, Tot. Refills 3, Maintenance, USE DIRECTED WITH INSULIN DAILY FAX [phone], 02/10/20 11:51:00 EDT, Compound, 149.86, cm, 01/20/20 [...] Start Date: 03/19/20 Stop Date: 03/14/21 Status: OrderedWheeled walker with seat Wheeled walker with seat, See Instructions, # 1 each, Refills 0, Tot. Refills 0, Maintenance, DX: Unsteady balance, 07/16/15 13:49:32, Compound Start Date: 07/16/15 Status: OrderedZetia 10 mg oral tablet 1 tablet = 10 mg, By Mouth, Daily, TO BE TAKEN IN ADDITION TO LIPITOR FAX [phone], # 90 tablet, 1 Refills, Maintenance, 03/24/20 10:29:00 EDT, Tablet, [facility], 149.86, cm, 01/20/20 13:55:00 EST, Height, 90.9, kg, 12/10/19 7:01:00 EST... Start Date: 03/24/20 Status: Ordered Problem List Condition Effective Dates Status Health Status Informant Non-ST elevation [place] Active (NSTEMI)(Confirmed) Mild anemia(Confirmed) Active Autonomic neuropathy(Confirmed) [...] gait(Confirmed) Active Vertigo(Confirmed) Active 1Status post excision [id number] 86922Tl chest CT 2015.4colo 20476FEW 04707scgi 81503Lrzirglog Knees and Back Vital Signs Most recent to oldest [Reference Range]: 1 Height 149.86 cm (01/10/20 10:13 AM) Weight 90.9 kg (01/10/20 10:13 AM) Pulse Rate [55-90 bpm] 66 bpm (01/10/20 10:13 AM) Body Mass Index [18.5-24.99] 40.48 *>HHI* (01/10/20 10:13 AM) Blood Pressure [90-138/55-84 mm Hg] 120/50 mm Hg (01/10/20 10:13 AM) Weight Obtained Via Patient/family stated (01/10/20 10:13 AM) Social History Social History Type Response Smoking Status Former smoker; Tobacco user in household: No; Other: Quit this June 2015; entered on: 08/17/16 Sex
--- OUTSIDE RECORDS SUMMARY | 2023-01-09 20:56 | XMS_ITS | Continuity of Care Document ---
:1945 Author Organization [facility] Address [address] [place] [address]- Care Team Providers Name Role Phone Columba WATSON, Nahid Washington Primary Care Physician [facility] Date[facility]s): 08/19/21 - 09/18/21 [facility] [address] [place] [address]- Allergies, Adverse Reactions, Alerts Substance Reaction Severity [...] 1Result Comment: [10/19/2017] [facility] [id number] History: [id number] Comment: [09/15/2015] HIGH [id number] Comment: [07/28/2017] AT [facility] amLODIPine 2.5 mg oral tablet 2.5 mg, 1, tablet, By Mouth, Daily, # 90 tablet, Refills 1, Tot. Refills 1, Maintenance, 07/20/21 9:21:00 EDT, Route to Pharmacy Electronically, [facility], Partial fill upon patient [...] 1 Refills, Maintenance, 07/20/21 9:21:00 EDT, Tablet, [facility], 150, cm, 07/20/21 9:00:00 EDT, Height, 91, kg, 04/19/21 14:09:00 EDT, Dry Weight Start Date: 07/20/21 Status: OrderedBasaglar KwikPen 100 units/mL subcutaneous solution = 30 units, Subcutaneous Infusion, Daily at bedtime, # 15 mL, 5 Refills, Maintenance, 07/20/21 9:21:00 EDT, [facility], 150, cm, 07/20/21 9:00:00 [...] 07/20/21 9:21:00 EDT, Route to Pharmacy Electronically, [facility], 150, cm, 07/20/21 9:00:00 EDT, Height, 91, kg, 04/19/21 14:09:00 EDT, Dry Weight Start Date: 07/20/21 Status: Orderedlosartan 100 mg oral tablet 1 tablet, By Mouth, Daily, # 90 tablet, 1 Refills, Maintenance, 07/20/21 9:21:00 EDT, [facility], 150, cm, 07/20/21 9:00:00 EDT, Height, 91, kg, 04/19/21 14:09:00 EDT, Dry Weight Start Date: 07/20/21 Status: OrderedmetFORMIN 500 mg oral tablet 1 tablet = 500 mg, By Mouth, 2 times a day, # 180 tablet, 1 Refills, Maintenance, 08/19/21 13:42:00 EDT, Tablet, [facility], 150, cm, 08/19/21 13:24:00 EDT, Height, 91, kg, 04/19/21 14:09:00EDT, Dry Weight Start Date: 08/19/21 Status: Orderedmetoprolol 25 mg oral tablet 25 mg, 1, tablet, By Mouth, 2 times a day, # 180 tablet, Refills 3, Tot. Refills 3, Maintenance, 07/20/21 9:21:00 EDT, Route to Pharmacy Electronically, [facility], 150, cm, 07/20/21 9:00:00EDT, [...] Supply Start Date: 10/12/20 Status: OrderedPEN NEEDLES [id number] PEN NEEDLES 76GF1HG, See Instructions, # 100 each, Refills 3, Tot. Refills 3, Maintenance, USE DIRECTED WITH INSULIN DAILY FAX [phone], 07/01/21 13:25:00 EDT, Compound, 150, cm, 06/15/21 14:56:00 EDT, Height, 91, kg, 04/19/21 14:09:00 EDT, Dry We... Start Date: 07/01/21 Status: OrderedProAir HFA 90 mcg/inh inhalation aerosol with adapter 2, puffs, Inhalation, Every 6 hours, PRN, # 8.5 Gm, Refills 1, Tot. 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
--- OUTSIDE RECORDS SUMMARY | 2023-01-09 20:57 | XMS_ITS | Continuity of Care Document ---
:1945 Author Organization [facility], [place], operated by [facility] Address [address] [place] [address]- Care Team Providers Name Role Phone Columba WATSON, Nahid Washington Primary Care Physician Encounter [facility] [place] Date(s): 07/20/21 - 07/27/21 [facility], [place], [facility] [address] [place] [address]- Encounter Diagnosis Preop examination (Discharge Diagnosis) - 07/20/21 Type 2 diabetes mellitus (Discharge Diagnosis) - 07/20/21 Rash (Discharge Diagnosis) - 07/20/21 Attending Physician: Leah CHO, Erika Simmons Referring Physician: Popeye WATSON, Zeus Galarza Allergies, Adverse Reactions, Alerts Substance Reaction Severity Status Adhesive Bandage Active Bee Stings SWELLING AT SITE ONLY Active Percocet 5 Active Immunizations Given and Recorded Vaccine Date [...] 1Result Comment: [10/19/2017] pt had done @ [facility] [id number] History: [id number] Comment: [09/15/2015] HIGH [id number] Comment: [07/28/2017] AT [facility] Medications amLODIPine 2.5 mg oral tablet 2.5 mg, 1, tablet, By Mouth, Daily, # 90 tablet, Refills 1, Tot. Refills 1, Maintenance, 07/20/21 9:21:00 EDT, Route to Pharmacy Electronically, [id number], Partial fill upon [...] 1 Refills, Maintenance, 07/20/21 9:21:00 EDT, Tablet, [id number], 150, cm, 07/20/21 9:00:00 EDT, Height, 91, kg, 04/19/21 14:09:00 EDT, Dry Weight Start Date: 07/20/21 Status: OrderedBasaglar KwikPen 100 units/mL subcutaneous solution = 30 units, Subcutaneous Infusion, Daily at bedtime, # 15 mL, 5 Refills, Maintenance, 07/20/21 9:21:00 EDT, [id number], 150, cm, 07/20/21 [...] 07/20/21 9:21:00 EDT, Route to Pharmacy Electronically, [id number], 150, cm, 07/20/21 9:00:00 EDT, Height, 91, kg, 04/19/21 14:09:00 EDT, Dry Weight Start Date: 07/20/21 Status: Orderedketoconazole 2% topical cream 1 application, Topically, Daily, # 60 Gm, 0 Refills, Acute 07/30/21 0:00:00 EDT, 07/20/21 9:29:00 EDT, Cream, [facility], Partial fill upon patient request if the prescription is for a schedule II opioid drug., 1 application Topically Daily... Start Date: 07/20/21 Stop Date: 07/30/21 Status: Orderedlosartan 100 mg oral tablet 1 tablet, By Mouth, Daily, # 90 tablet, 1 Refills, Maintenance, 07/20/21 9:21:00 EDT, [facility], 150, cm, 07/20/21 9:00:00 EDT, Height, 91, kg, 04/19/21 14:09:00 EDT, Dry Weight Start Date: 07/20/21 Status: OrderedmetFORMIN 500 mg oral tablet 1 tablet = 500 mg, By Mouth, 2 times a day, # 180 tablet, 0 Refills, Maintenance, 07/20/21 9:21:00 EDT, Tablet, [facility], 150, cm, 07/20/21 9:00:00 EDT, Height, 91, kg, 04/19/21 14:09:00 EDT, Dry Weight Start Date: 07/20/21 Status: Orderedmetoprolol 25 mg oral tablet 25 mg, 1, tablet, By Mouth, 2 times a day, # 180 tablet, Refills 3, Tot. Refills 3, Maintenance, 07/20/21 9:21:00 EDT, Route to Pharmacy Electronically, [facility], 150, cm, 07/20/21 [...] Supply Start Date: 10/12/20 Status: OrderedPEN NEEDLES [id number] PEN NEEDLES [id number], See Instructions, # 100 each, Refills 3, Tot. Refills 3, Maintenance, USE DIRECTED WITH INSULIN DAILY FAX [phone], 07/01/21 13:25:00 EDT, Compound, 150, cm, 06/15/21 14:56:00 EDT, Height, 91, kg, 04/19/21 14:09:00 EDT, Dry We... Start Date: 07/01/21 Status: OrderedProAir HFA 90 mcg/inh inhalation aerosol with adapter 2, puffs, Inhalation, Every 6 hours, PRN, # 8.5 Gm, Refills 1, Tot. Refills 1, Maintenance, 06/23/2011:27:00 EDT, Aerosol, Route to Pharmacy Electronically, [id number], [facility], 149.86, cm, 06/23/20 10:59:00 ED... Start Date: 8/4/20 Status: Orderedtrospium 60 mg oral capsule, extended [...] BE TAKEN IN ADDITION TO LIPITOR FAX [phone], # 90 tablet, 1 Refills, Maintenance, 07/20/21 9:21:00 EDT, Tablet, [facility], 150, cm, 07/20/21 9:00:00 EDT, Height, 91, kg, 04/19/21 14:09:00 EDT, Dry... Start Date: 07/20/21 Status: Ordered Problem List Condition Effective Dates Status Health Status Informant Non-ST elevation TX Active (NSTEMI)(Confirmed) Mild anemia(Confirmed) Active Autonomic neuropathy(Confirmed) [...] gait(Confirmed) Active Vertigo(Confirmed) Active 1Status post excision [id number] chest CT [id number] Knees and Back Diagnosis Diagnosis Type Effective Dates Health Clinical Infor mant Status Service Preop examination Discharge 07/20/21 Diagnosis Type 2 diabetes Discharge 07/20/21 mellitus Diagnosis Rash Discharge 07/20/21 Diagnosis Vital Signs Most recent to oldest [Reference Range]: 1 Height 150 cm (07/20/21 9:00 AM) Weight 92.6 kg (07/20/21 9:00 AM) Oxygen Saturation [94-100 %] 95 % (07/20/21 9:00 AM) Pulse Rate [55-90 bpm] 63 bpm (07/20/21 9:00 AM) Body Mass Index [18.5-24.99] 41.16 *>HHI* (07/20/21 9:00 AM) Blood Pressure [90-138/55-84 mm Hg] 124/70 mm Hg (07/20/21 9:00 AM) Blood pressure sites Arm, left (07/20/21 9:00 AM) Social History Social History Type Response Smoking Status Former smoker; Tobacco user in household: No; Other: Quit this June 2015; entered on: 08/17/16 Sex
[2023-01-09 21:30] LABS: Glucose, Whole Blood 131 mg/dL (60-115)
[2023-01-09 21:48] VITALS: BP 176/79; PULSE 88; RESP 20; TEMP 36.6; O2SAT 96
[2023-01-09] MEDS: Metoprolol Tartrate 25 MG TABLET PO (21:59)
[2023-01-09] MEDS: Enoxaparin Sodium 40 MG/0.4 ML SYRINGE SUBCUT (21:59)
[2023-01-09] MEDS: Insulin Glargine,Hum.rec.anlog 100 UNIT/ML 10 ML VIAL 18 UNIT SUBCUT (22:00)
[2023-01-10] VITALS (14 sets, daily range): BP systolic 114–180; BP diastolic 49–70; PULSE 78–96; RESP 16–20; TEMP 36.1–37.1; O2SAT 91–98
--- NOTE | 2023-01-10 | MHC.EDTECH ---
this pct assumed care of pt at 0000 ,vitals sign taken ,i offer patient food ,but pt said she only wanted water ,pitcher of ice water given ,call talbert within reach .
--- NOTE | 2023-01-10 00:21 | PC.NURSE ---
assumed care of patient at 0000 - patient moved to ED bed 3 from [facility] pivot 2 . will CTM
--- NOTE | 2023-01-10 02:00 | MHC.EDTECH ---
0200 rounding done ,pt sleeping .
[2023-01-10 06:58] LABS: Basophils Percent Auto 0.2 % (0-2); Hematocrit 39.7 % (37.0-47.0); Hemoglobin 12.7 g/dl (12.0-16.0); Imm Gran Abs Auto 0.05 X10*3/uL (0.00-0.03); Imm Gran Pct Auto 0.6 % (0.0-0.4); Lymphocytes Absolute Auto 0.7 X10*3/uL (1.2-4.9); Lymphocytes Percent Auto 7.7 % (20-40); MANUAL DIFF FLAG SCAN; Mean Corpuscular Hemoglobin 30.7 pg (27.0-33.0); Mean Corpuscular Volume 95.9 fL (80.0-98.0); Mean Platelet Volume 11.2 fL (9.4-12.3); Monocytes Percent Auto 0.4 % (2-11); Neutrophils Absolute Auto 8.2 x10*3/uL (2.0-8.3); Neutrophils Percent Auto 91.1 % (45-73); Platelet Count 186 X10*3/uL (160-400); Red Blood Count 4.14 X10*6/uL (4.20-5.50); Red Cell Distribution Width 13.1 % (11.0-16.0); SCAN SMEAR FLAG 1
[2023-01-10 07:00] LABS: Blood Urea Nitrogen 15 mg/dL (9-16); Calcium 8.9 mg/dL (8.4-10.2); Creatinine Clr Calc Pharmacy 49.7; Estimated Glomerular Filt Rate 58
[2023-01-10] MEDS: methylPREDNISolone Sod Succ 125 MG/2 ML VIAL 60 MG IVPUSH (07:08)
[2023-01-10 07:16] LABS: Anion Gap 19 (12-20); Carbon Dioxide 21 mmol/L (22-29); Chloride 103 mmol/L (96-108); Potassium 4.2 mmol/L (3.3-5.1); Sodium 139 mmol/L (135-145)
[2023-01-10 07:25] LABS: SLIDE REVIEW VERIFIED
[2023-01-10 07:34] LABS: Glucose, Whole Blood 330 mg/dL (60-115)
[2023-01-10] MEDS: 0.9 % Sodium Chloride Flush 3 ML SYRINGE IVFLUSH ×3 (08:14→21:55)
[2023-01-10] MEDS: Insulin Lispro 100 UNIT/ML 3 ML VIAL SUBCUT ×3 (08:16→21:48)
[2023-01-10 08:26] LABS: Glucose Random 364 mg/dL (60-115)
--- NOTE | 2023-01-10 09:11 | PC.NURSE ---
Patient arrives to the floor at this time from ED without RN to RN report given. Instructional Assistant JONATHAN Rubalcava aware at this time, no further actions taken.
--- NOTE | 2023-01-10 09:25 | MHC.CM.PN ---
PT IN COVID ISOLATION CM CALLED PTS DAUGHTER/PRIMARY CONTACT, VICKIE [phone] SHE REPORTS THE PT LIVES WITH HER UNCLE, THE PTS SISTER SHE SAYS THERE IS A ART GILDER AND MOW VIA [facility] SHE USES A WALKER AT [place] SHE IS COVID VAX X 4 DAUGHTER SAYS SHE IS THE HCP AND IT IS ON FILE AT DR FRAGA'S (PCP) OFFICE IMM DELIVERED, COPY TO BE MAILED DCP: HOME ? [facility] DAUGHTER TO TRANSPORT
[2023-01-10 11:56] LABS: Glucose, Whole Blood 364 mg/dL (60-115)
[2023-01-10] MEDS: amLODIPine Besylate 2.5 MG TABLET PO (11:59)
[2023-01-10 16:04] LABS: Glucose, Whole Blood 405 mg/dL (60-115)
--- NOTE | 2023-01-10 16:55 | HO.PM.IMPN ---
Subjective Subjective Date of Service: 01/11/23 Interval History: armendariz, cough Review of Systems still sob with minimal exceresion Has cough, dry Denies any chest pain or nausea or vomiting. Physical Exam Vital Signs: Vital Signs: Last Vital Signs Temp 96.9 F 01/10/23 15:24 Pulse 84 01/10/23 15:43 Resp 18 01/10/23 15:43 BP 114/70 01/10/23 15:24 Pulse Ox 92 01/10/23 15:24 O2 Del Method 01/10/23 15:24 O2 Flow Rate 2 01/10/23 00:00 BMI result Body Mass Index 40.4 Appearance: Alert.? Oriented X3.? not in distress.? cvs: rrr, [id number] . res: Air entry diminished, has bilateral wheezing. abd: no rebound or guarding ,nt, bs present. ext pulses present , no cyanosis . neuro: axo3 , nonfocal. Objective Data Active Medications Acetaminophen (Acetaminophen 325 Mg Tablet) 650 mg PO Q6H PRN PRN Reason: Pain, Mild (Pain Scale 1-3) Albuterol Sulfate (Albuterol Sulfate (0.083%) 2.5 Mg/3 Ml Vial.Neb) 2.5 mg INHALE Q2H PRN PRN Reason: Shortness of Breath/Wheezing Amlodipine Besylate (Amlodipine Besylate 2.5 Mg Tablet) 2.5 mg PO DAILY [facility]; Protocol Last Admin: 01/10/23 11:59 Dose: 2.5 mg Documented By: NOLAN Albuterol Sulfate 2.5 mg/ (Ipratropium [place] 0.5 mg) 0 mg INHALE RQ4H WHILE AWAKE [facility], [facility] Last Admin: 01/10/23 15:42 Dose: 2.5 each Documented By: SANDRA Dextrose (Dextrose 50 % 25 Gm/50 Ml Syringe) 25 gm IVPUSH Q15M PRN; Protocol PRN Reason: per Hypoglycemia Standing Ord. Docusate Sodium (Docusate Sodium 100 Mg Capsule) 100 mg PO DAILY PRN PRN Reason: Constipation Enoxaparin Sodium (Enoxaparin Sodium 40 Mg/0.4 Ml Syringe) 40 mg SUBCUT Q24H [facility] Last Admin: 01/09/23 21:59 Dose: 40 mg Documented By: ALEKS Glucose (Glucose Gel 15 Gm Gel..Gram.) 15 gm PO Q15M PRN; Protocol PRN Reason: per Hypoglycemia Standing Ord. Guaifenesin (Guaifenesin 200 Mg/10 Ml 10 Ml Liquid) 10 ml PO Q6H PRN PRN Reason: Cough Insulin Glargine (Insulin Glargine,Hum.Rec.Anlog 100 Unit/Ml 10 Ml Vial) 18 unit SUBCUT BEDTIME [facility], [facility] Last Admin: 01/09/23 22:00 Dose: 18 unit Documented By: ALEKS Insulin Human Lispro (Insulin Lispro 100 Unit/Ml 3 Ml Vial) 0 unit SUBCUT QIDACHS [facility], [facility]; Protocol Last Admin: 01/10/23 12:03 Dose: 10 unit Documented By: NOLAN Methylprednisolone Sodium Succinate (Methylprednisolone Sod Succ 125 Mg/2 Ml Vial) 40 mg IVPUSH Q12H SARAHI Ondansetron HCl (Ondansetron Hcl 4 Mg/2 Ml Vial) 4 mg IVPUSH Q8H PRN PRN Reason: Nausea and Vomiting Sodium Chloride (0.9 % Sodium Chloride Flush 3 Ml Syringe) 3 ml IVFLUSH QSHIFT [facility] Last Admin: 01/10/23 12:00 Dose: 3 ml Documented By: NOLAN Labs 01/10/23 06:10 01/10/23 06:10 Labs: Laboratory Results - last 24 hr 01/09/23 01/09/23 01/09/23 18:10 18:10 18:10 MCV 96.8 MCH 30.5 MCHC 31.5 RDW 13.3 Plt Count 216 MPV 11.2 Immature Gran % (Auto) 0.4 Neut % (Auto) 68.3 Lymph % (Auto) 22.8 [place] % (Auto) 6.1 Eos % (Auto) 1.8 Baso % (Auto) 0.6 Lymph # (Auto) 2.1 [place] # (Auto) 0.6 Eos # (Auto) 0.2 Baso # (Auto) 0.1 Abs Immat Gran (auto) 0.04 H Absolute Neuts (auto) 6.2 Absolute Nucleated RBC 0.000 Nucleated RBC % (auto) 0.0 Smear Tech's Comments Anion Gap 16 Estim Creat Clear Calc 50.8 Estimated GFR 60 POC Glucose Random Glucose 110 Calcium 9.1 D Magnesium 1.8 Total Bilirubin 1.0 Direct Bilirubin 0.3 AST 20 ALT 16 Alkaline Phosphatase 158 H B-Natriuretic Peptide 236 H Total Protein 6.6 Albumin 4.0 COVID-19 (PINKY) COVID-19 Rainbow 01/09/23 01/09/23 01/10/23 19:03 21:20 06:10 MCV 95.9 MCH 30.7 MCHC 32.0 RDW 13.1 Plt Count 186 MPV 11.2 Immature Gran % (Auto) 0.6 H Neut % (Auto) 91.1 H Lymph % (Auto) 7.7 L [place] % (Auto) 0.4 L Eos % (Auto) 0.0 Baso % (Auto) 0.2 Lymph # (Auto) 0.7 L [place] # (Auto) 0.0 L Eos # (Auto) 0.0 Baso # (Auto) 0.0 Abs Immat Gran (auto) 0.05 H Absolute Neuts (auto) 8.2 Absolute Nucleated RBC 0.000 Nucleated RBC % (auto) 0.0 Smear Tech's Comments VERIFIED Anion Gap Estim Creat Clear Calc Estimated GFR POC Glucose 131 H Random Glucose Calcium Magnesium Total Bilirubin Direct Bilirubin AST ALT Alkaline Phosphatase B-Natriuretic Peptide Total Protein Albumin COVID-19 (PINKY) Positive A COVID-19 Rainbow See Note 01/10/23 01/10/23 01/10/23 06:10 07:29 11:51 MCV MCH MCHC RDW Plt Count MPV Immature Gran % (Auto) Neut % (Auto) Lymph % (Auto) [place] % (Auto) Eos % (Auto) Baso % (Auto) Lymph # (Auto) [place] # (Auto) Eos # (Auto) Baso # (Auto) Abs Immat Gran (auto) Absolute Neuts (auto) Absolute Nucleated RBC Nucleated RBC % (auto) Smear Tech's Comments Anion Gap 19 Estim Creat Clear Calc 49.7 Estimated GFR 58 POC Glucose 330 H 364 H* Random Glucose 364 H* Calcium 8.9 Magnesium Total Bilirubin Direct Bilirubin AST ALT Alkaline Phosphatase B-Natriuretic Peptide Total Protein Albumin COVID-19 (PINKY) COVID-19 Rainbow 01/10/23 15:57 MCV MCH MCHC RDW Plt Count MPV Immature Gran % (Auto) Neut % (Auto) Lymph % (Auto) [place] % (Auto) Eos % (Auto) Baso % (Auto) Lymph # (Auto) [place] # (Auto) Eos # (Auto) Baso # (Auto) Abs Immat Gran (auto) Absolute Neuts (auto) Absolute Nucleated RBC Nucleated RBC % (auto) Smear Tech's Comments Anion Gap Estim Creat Clear Calc Estimated GFR POC Glucose 405 H* Random Glucose Calcium Magnesium Total Bilirubin Direct Bilirubin AST ALT Alkaline Phosphatase B-Natriuretic Peptide Total Protein Albumin COVID-19 (PINKY) COVID-19 Clin Com Assessment and Plan (1) Hyperglycemia: Status: Acute (2) COPD exacerbation: Status: Acute (3) COVID-19: Status: Acute (4) Hypoxia: Status: Acute (5) Morbid obesity: Status: Acute Plan 77-year-old female with history of coronary artery disease with history of NSTEMI, CKD stage 3, COPD, depression, insulin-dependent type 2 diabetes, diabetic retinopathy, hyperlipidemia, orthostatic hypotension, HAYDEE compliant with CPAP, former smoker with 50+ pack year history quit 12 years ago, overactive bladder, macular degeneration, and history of CVA admitted for COPD exacerbation with acute hypoxic respiratory failure. acute COPD exacerbation with acute hypoxic respiratory failure-following COVID-19 infection -methylprednisolone 60 mg b.i.d.,DuoNebs q.4h while awake,albuterol q.2h p.r.n. -nonproductive cough.? CXR negative.? Hold on antibiotic therapy at this time -continue supplemental O2 to maintain oximetry around 92%.? Desaturates to 79% with ambulation.? Wean as tolerated COVID-19 -initially tested positive on 12/28.? COVID-19 test in the ED positive. -unlikely to still be purulence, however will continue airborne/contact precautions -outside of window for treatment with IV remdesivir -symptomatic management insulin-dependent type 2 diabetes with hyperglycemia possibly related to steroid use. Steroid dose adjusted,hold p.o. anti hyperglycemics Diabetic diet, continue Lantus, adjusted sliding scale coverage. HAYDEE -CPAP at bedtime hypertension -continue metoprolol, losartan, amlodipine CAD/HLD -continue atorvastatin, Zetia, Plavix, metoprolol morbid obesity: Encouraged to lose weight. DVT prophylaxis-Lovenox Full code Med rec pending inpatient need :management of COPD exacerbation with acute hypoxic respiratory failure requiring supplemental O2, IV steroids, and close monitoring for pulmonary decompensation Time Spent With Patient Time: Total time managing care of this patient today ____ minutes. Quality Stroke Does the patient have a stroke diagnosis?: No VTE Prior VTE?: No VTE Risk Level:: Medical - moderate - high VTE Device Contraindication: Treatment Not Indicated VTE Drug Contraindication: N/A - Med Ordered
[2023-01-10] MEDS: methylPREDNISolone Sod Succ 125 MG/2 ML VIAL 40 MG IVPUSH (17:13)
[2023-01-10] MEDS: Acetaminophen 325 MG TABLET 650 MG PO (17:15)
[2023-01-10] MEDS: Insulin Lispro 100 UNIT/ML 3 ML VIAL 14 UNIT SUBCUT (17:24)
--- NOTE | 2023-01-10 17:34 | PHA.MEDREC ---
Pharmacy Consult ? Medication Reconciliation Pharmacy has completed the medication reconciliation.
[2023-01-10 19:56] LABS: Glucose, Whole Blood 353 mg/dL (60-115)
[2023-01-10] MEDS: Enoxaparin Sodium 40 MG/0.4 ML SYRINGE SUBCUT (21:47)
[2023-01-10] MEDS: Insulin Glargine,Hum.rec.anlog 100 UNIT/ML 10 ML VIAL 18 UNIT SUBCUT (21:48)
[2023-01-11] VITALS (13 sets, daily range): BP systolic 110–147; BP diastolic 53–72; PULSE 73–88; RESP 17–20; TEMP 36.1–36.9; O2SAT 93–95
[2023-01-11 07:31] LABS: Glucose, Whole Blood 364 mg/dL (60-115)
--- NOTE | 2023-01-11 08:18 | P.PNIM_ITS ---
Subjective Subjective Date of Service: 01/11/23 Interval History: armendariz, cough Review of Systems still sob with minimal exceresion Has cough, dry Denies any chest pain or nausea or vomiting. Physical Exam Vital Signs: Vital Signs: Last Vital Signs Temp 97.0 F 01/11/23 07:25 Pulse 80 01/11/23 07:25 Resp 17 01/11/23 07:25 BP 143/67 H 01/11/23 07:25 Pulse Ox 95 01/11/23 07:25 O2 Del Method 01/11/23 07:25 O2 Flow Rate 2 01/10/23 00:00 BMI result Body Mass Index 40.4 Appearance: Alert.? Oriented X3.? not in distress.? cvs: rrr, [id number] . res:? Air entry diminished, has bilateral wheezing. abd: no rebound or guarding ,nt, bs present. ext pulses present , no cyanosis . neuro: axo3 , nonfocal. Objective Data Active Medications Acetaminophen (Acetaminophen 325 Mg Tablet) 650 mg PO Q6H PRN PRN Reason: Pain, Mild (Pain Scale 1-3) Last Admin: 01/10/23 17:15 Dose: 650 mg Documented By: NOLAN Albuterol Sulfate (Albuterol Sulfate (0.083%) 2.5 Mg/3 Ml Vial.Neb) 2.5 mg INHALE Q2H PRN PRN Reason: Shortness of Breath/Wheezing Amlodipine Besylate (Amlodipine Besylate 2.5 Mg Tablet) 2.5 mg PO DAILY [facility]; Protocol Last Admin: 01/10/23 11:59 Dose: 2.5 mg Documented By: NOLAN Albuterol Sulfate 2.5 mg/ (Ipratropium [place] 0.5 mg) 0 mg INHALE RQ4H WHILE AWAKE [facility] Last Admin: 01/10/23 20:10 Dose: 1 each Documented By: FILIPPO Dextrose (Dextrose 50 % 25 Gm/50 Ml Syringe) 25 gm IVPUSH Q15M PRN; Protocol PRN Reason: per Hypoglycemia Standing Ord. Docusate Sodium (Docusate Sodium 100 Mg Capsule) 100 mg PO DAILY PRN PRN Reason: Constipation Enoxaparin Sodium (Enoxaparin Sodium 40 Mg/0.4 Ml Syringe) 40 mg SUBCUT Q24H [facility] Last Admin: 01/10/23 21:47 Dose: 40 mg Documented By: RUBY Glucose (Glucose Gel 15 Gm Gel..Gram.) 15 gm PO Q15M PRN; Protocol PRN Reason: per Hypoglycemia Standing Ord. Guaifenesin (Guaifenesin 200 Mg/10 Ml 10 Ml Liquid) 10 ml PO Q6H PRN PRN Reason: Cough Insulin Glargine (Insulin Glargine,Hum.Rec.Anlog 100 Unit/Ml 10 Ml Vial) 18 unit SUBCUT BEDTIME [facility] Last Admin: 01/10/23 21:48 Dose: 18 unit Documented By: RUBY Insulin Human Lispro (Insulin Lispro 100 Unit/Ml 3 Ml Vial) 0 unit SUBCUT QIDACHS [facility]; Protocol Last Admin: 01/10/23 21:48 Dose: 16 unit Documented By: RUBY Methylprednisolone Sodium Succinate (Methylprednisolone Sod Succ 125 Mg/2 Ml Vial) 40 mg IVPUSH Q12H [facility] Last Admin: 01/10/23 17:13 Dose: 40 mg Documented By: NOLAN Ondansetron HCl (Ondansetron Hcl 4 Mg/2 Ml Vial) 4 mg IVPUSH Q8H PRN PRN Reason: Nausea and Vomiting Sodium Chloride (0.9 % Sodium Chloride Flush 3 Ml Syringe) 3 ml IVFLUSH QSHIFT [facility] Last Admin: 01/10/23 21:55 Dose: 3 ml Documented By: RUBY Labs 01/10/23 06:10 01/10/23 06:10 Labs: Laboratory Results - last 24 hr 01/10/23 01/10/23 01/10/23 06:10 11:51 15:57 POC Glucose 364 H* 405 H* Random Glucose 364 H* 01/10/23 01/11/23 19:51 07:22 POC Glucose 353 H* 364 H* Random Glucose Assessment and Plan (1) Hyperglycemia: Status: Acute (2) COPD exacerbation: Status: Acute (3) COVID-19: Status: Acute (4) Hypoxia: Status: Acute (5) Morbid obesity: Status: Acute Plan 77-year-old female with history of coronary artery disease with history of NSTEMI, CKD stage 3, COPD, depression, insulin-dependent type 2 diabetes, diabetic retinopathy, hyperlipidemia, orthostatic hypotension, HAYDEE compliant with CPAP, former smoker with 50+ pack year history quit 12 years ago, overactive bladder, macular degeneration, and history of CVA admitted for COPD exacerbation with acute hypoxic respiratory failure. acute COPD exacerbation with acute hypoxic respiratory failure-following COVID- 19 infection -methylprednisolone 60 mg b.i.d.,DuoNebs q.4h while awake,albuterol q.2h p.r.n. -nonproductive cough.? CXR negative.? Hold on antibiotic therapy at this time -continue supplemental O2 to maintain oximetry around 92%.? Desaturates to 79% with ambulation.? Wean as tolerated COVID-19 -initially tested positive on 12/28.? COVID-19 test in the ED positive. -unlikely to still be purulence, however will continue airborne/contact precautions -outside of window for treatment with IV remdesivir -symptomatic management insulin-dependent type 2 diabetes with hyperglycemia possibly related to steroid use. Steroid dose adjusted,hold p.o. anti hyperglycemics Diabetic diet, continue Lantus, adjusted sliding scale coverage. HAYDEE -CPAP at bedtime hypertension -continue metoprolol, losartan, amlodipine CAD/HLD -continue atorvastatin, Zetia, Plavix, metoprolol morbid obesity: Encouraged to lose weight. DVT prophylaxis-Lovenox Full code Med rec pending inpatient need :management of COPD exacerbation with acute hypoxic respiratory failure requiring supplemental O2, IV steroids, and close monitoring for pulmonary decompensation Time Spent With Patient Time: Total time managing care of this patient today ____ minutes. Quality Stroke Does the patient have a stroke diagnosis?: No VTE Prior VTE?: No VTE Risk Level:: Medical - moderate - high VTE Device Contraindication: Treatment Not Indicated VTE Drug Contraindication: N/A - Med Ordered
[2023-01-11] MEDS: Ezetimibe 10 MG TABLET PO (08:42)
[2023-01-11] MEDS: FLUoxetine HCl 20 MG CAPSULE PO (08:42)
[2023-01-11] MEDS: Losartan Potassium 50 MG TABLET 100 MG PO (08:42)
[2023-01-11] MEDS: Metoprolol Tartrate 25 MG TABLET PO ×2 (08:42→20:23)
[2023-01-11] MEDS: amLODIPine Besylate 2.5 MG TABLET PO (08:42)
[2023-01-11] MEDS: Atorvastatin Calcium 80 MG TABLET PO (08:42)
[2023-01-11] MEDS: Clopidogrel Bisulfate 75 MG TABLET PO (08:42)
[2023-01-11] MEDS: Insulin Glargine,Hum.rec.anlog 100 UNIT/ML 10 ML VIAL SUBCUT ×2 (08:43→16:29)
[2023-01-11] MEDS: 0.9 % Sodium Chloride Flush 3 ML SYRINGE IVFLUSH ×3 (08:43→20:26)
[2023-01-11] MEDS: Insulin Lispro 100 UNIT/ML 3 ML VIAL SUBCUT ×5 (08:43→20:25)
[2023-01-11] MEDS: Acetaminophen 325 MG TABLET 650 MG PO ×2 (08:43→20:23)
[2023-01-11] MEDS: Furosemide 20 MG/2 ML VIAL IVPUSH (10:21)
[2023-01-11 11:24] LABS: Glucose, Whole Blood 430 mg/dL (60-115)
[2023-01-11 16:09] LABS: Glucose, Whole Blood 430 mg/dL (60-115)
[2023-01-11 19:50] LABS: Glucose, Whole Blood 342 mg/dL (60-115)
[2023-01-11] MEDS: Enoxaparin Sodium 40 MG/0.4 ML SYRINGE SUBCUT (20:23)
[2023-01-11] MEDS: Insulin Glargine,Hum.rec.anlog 100 UNIT/ML 10 ML VIAL 30 UNIT SUBCUT (20:24)
[2023-01-12] VITALS (13 sets, daily range): BP systolic 130–176; BP diastolic 56–93; PULSE 67–79; RESP 18–20; TEMP 36.2–36.7; O2SAT 93–97
[2023-01-12 08:00] LABS: Glucose, Whole Blood 244 mg/dL (60-115)
[2023-01-12] MEDS: Metoprolol Tartrate 25 MG TABLET PO ×2 (09:15→21:56)
[2023-01-12] MEDS: 0.9 % Sodium Chloride Flush 3 ML SYRINGE IVFLUSH ×3 (09:15→23:15)
[2023-01-12] MEDS: FLUoxetine HCl 20 MG CAPSULE PO (09:15)
[2023-01-12] MEDS: Insulin Lispro 100 UNIT/ML 3 ML VIAL SUBCUT ×5 (09:15→21:55)
[2023-01-12] MEDS: Ezetimibe 10 MG TABLET PO (09:15)
[2023-01-12] MEDS: Clopidogrel Bisulfate 75 MG TABLET PO (09:16)
[2023-01-12] MEDS: Losartan Potassium 50 MG TABLET 100 MG PO (09:16)
[2023-01-12] MEDS: Atorvastatin Calcium 80 MG TABLET PO (09:16)
[2023-01-12] MEDS: amLODIPine Besylate 2.5 MG TABLET PO (09:16)
[2023-01-12 11:40] LABS: Glucose, Whole Blood 428 mg/dL (60-115)
--- NOTE | 2023-01-12 14:34 | MHC.CM.PN ---
EMR REVIEWED PER MD ROUNDS, PT NOT MEDICALLY CLEARED FOR DC(IV STEROIDS, SUPPLEMENTAL 02, RISK OF PULMONARY DECOMPENSATION) CM WILL CONTINUE TO FOLLOW
[2023-01-12 15:50] LABS: Anion Gap 13 (12-20); Blood Urea Nitrogen 22 mg/dL (9-16); Calcium 8.8 mg/dL (8.4-10.2); Carbon Dioxide 27 mmol/L (22-29); Chloride 103 mmol/L (96-108); Creatinine Clr Calc Pharmacy 45.3; Estimated Glomerular Filt Rate 53; Glucose Random 385 mg/dL (60-115); Potassium 3.5 mmol/L (3.3-5.1); Sodium 139 mmol/L (135-145)
[2023-01-12 16:03] LABS: Glucose, Whole Blood 342 mg/dL (60-115)
[2023-01-12] MEDS: Furosemide 20 MG/2 ML VIAL IVPUSH (16:34)
[2023-01-12] MEDS: Clotrimazole 1 % Cream 15 GM TUBE 1 APPL TOPICAL (16:42)
--- NOTE | 2023-01-12 17:34 | P.PNIM_ITS ---
Subjective Subjective Date of Service: 01/12/23 Interval History: armendariz, cough Review of Systems still sob with minimal exceresion but slightly improving Has cough, dry Denies any chest pain or nausea or vomiting. Physical Exam Vital Signs: Vital Signs: Last Vital Signs Temp 97.8 F 01/12/23 16:00 Pulse 78 01/12/23 16:00 Resp 20 01/12/23 16:00 BP 162/78 H 01/12/23 16:00 Pulse Ox 95 01/12/23 16:00 O2 Del Method 01/12/23 16:00 O2 Flow Rate 2 01/10/23 00:00 BMI result Body Mass Index 40.4 Appearance: Alert.? Oriented X3.? not in distress.? cvs: [id number], [id number] . res:? Air entry diminished, has bilateral wheezing. abd: no rebound or guarding ,nt, bs present. ext pulses present , no cyanosis . neuro: axo3 , nonfocal. Objective Data Active Medications Acetaminophen (Acetaminophen 325 Mg Tablet) 650 mg PO Q6H PRN PRN Reason: Pain, Mild (Pain Scale 1-3) Last Admin: 01/11/23 20:23 Dose: 650 mg Documented By: WOLFGANG Albuterol Sulfate (Albuterol Sulfate (0.083%) 2.5 Mg/3 Ml Vial.Neb) 2.5 mg INHALE Q2H PRN PRN Reason: Shortness of Breath/Wheezing Albuterol Sulfate (Albuterol Sulfate 90 Mcg 8 Gm Inhaler) 2 puff INHALE Q6H PRN PRN Reason: wheezing Amlodipine Besylate (Amlodipine Besylate 2.5 Mg Tablet) 2.5 mg PO DAILY [facility]; Protocol Last Admin: 01/12/23 09:16 Dose: 2.5 mg Documented By: ANGELA Atorvastatin Calcium (Atorvastatin Calcium 80 Mg Tablet) 80 mg PO DAILY [facility] Last Admin: 01/12/23 09:16 Dose: 80 mg Documented By: ANGELA Clopidogrel Bisulfate (Clopidogrel Bisulfate 75 Mg Tablet) 75 mg PO DAILY [facility] Last Admin: 01/12/23 09:16 Dose: 75 mg Documented By: ANGELA Clotrimazole (Clotrimazole 1 % Cream 15 Gm Tube) 1 appl TOPICAL BID [facility]; Protocol Last Admin: 01/12/23 16:42 Dose: 1 appl Documented By: ANGELA Albuterol Sulfate 2.5 mg/ (Ipratropium [place] 0.5 mg) 0 mg INHALE RQ4H WHILE AWAKE [facility] Last Admin: 01/12/23 15:47 Dose: 2.5 each Documented By: JANA Dextrose (Dextrose 50 % 25 Gm/50 Ml Syringe) 25 gm IVPUSH Q15M PRN; Protocol PRN Reason: per Hypoglycemia Standing Ord. Docusate Sodium (Docusate Sodium 100 Mg Capsule) 100 mg PO DAILY PRN PRN Reason: Constipation Ezetimibe (Ezetimibe 10 Mg Tablet) 10 mg PO DAILY [facility] Last Admin: 01/12/23 09:15 Dose: 10 mg Documented By: ANGELA Enoxaparin Sodium (Enoxaparin Sodium 40 Mg/0.4 Ml Syringe) 40 mg SUBCUT Q24H [facility] Last Admin: 01/11/23 20:23 Dose: 40 mg Documented By: WOLFGANG Fluoxetine HCl (Fluoxetine Hcl 20 Mg Capsule) 20 mg PO DAILY [facility] Last Admin: 01/12/23 09:15 Dose: 20 mg Documented By: ANGELA Glucose (Glucose Gel 15 Gm Gel..Gram.) 15 gm PO Q15M PRN; Protocol PRN Reason: per Hypoglycemia Standing Ord. Guaifenesin (Guaifenesin 200 Mg/10 Ml 10 Ml Liquid) 10 ml PO Q6H PRN PRN Reason: Cough Insulin Glargine (Insulin Glargine,Hum.Rec.Anlog 100 Unit/Ml 10 Ml Vial) 30 unit SUBCUT BEDTIME [facility] Last Admin: 01/11/23 20:24 Dose: 30 unit Documented By: WOLFGANG Insulin Glargine (Insulin Glargine,Hum.Rec.Anlog 100 Unit/Ml 10 Ml Vial) 10 unit SUBCUT DAILY [facility] Insulin Human Lispro (Insulin Lispro 100 Unit/Ml 3 Ml Vial) 0 unit SUBCUT QIDACHS [facility]; Protocol Last Admin: 01/12/23 16:34 Dose: 12 unit Documented By: ANGELA Losartan Potassium (Losartan Potassium 50 Mg Tablet) 100 mg PO DAILY [facility]; Protocol Last Admin: 01/12/23 09:16 Dose: 100 mg Documented By: ANGELA Metoprolol Tartrate (Metoprolol Tartrate 25 Mg Tablet) 25 mg PO BID [facility]; Protocol Last Admin: 01/12/23 09:15 Dose: 25 mg Documented By: ANGELA Nitroglycerin (Nitroglycerin 0.4 Mg Tab.Subl) 0.4 mg SUBLINGUAL Q5M PRN PRN Reason: chest pain Non-Formulary Medication (Fesoterodine [Toviaz]) 8 mg PO DAILY [facility] Ondansetron HCl (Ondansetron Hcl 4 Mg/2 Ml Vial) 4 mg IVPUSH Q8H PRN PRN Reason: Nausea and Vomiting Sodium Chloride (0.9 % Sodium Chloride Flush 3 Ml Syringe) 3 ml IVFLUSH QSHIFT [facility] Last Admin: 01/12/23 16:34 Dose: 3 ml Documented By: ANGELA Labs 01/10/23 06:10 01/12/23 14:48 Labs: Laboratory Results - last 24 hr 01/11/23 01/12/23 01/12/23 19:39 07:42 11:26 Anion Gap Estim Creat Clear Calc Estimated GFR POC Glucose 342 H 244 H 428 H* Random Glucose Calcium 01/12/23 01/12/23 14:48 15:58 Anion Gap 13 Estim Creat Clear Calc 45.3 Estimated GFR 53 POC Glucose 342 H Random Glucose 385 H* Calcium 8.8 Assessment and Plan (1) Hyperglycemia: Status: Acute (2) COPD exacerbation: Status: Acute (3) COVID-19: Status: Acute (4) Hypoxia: Status: Acute (5) Morbid obesity: Status: Acute Plan 77-year-old female with history of coronary artery disease with history of NSTEMI, CKD stage 3, COPD, depression, insulin-dependent type 2 diabetes, diabetic retinopathy, hyperlipidemia, orthostatic hypotension, HAYDEE compliant with CPAP, former smoker with 50+ pack year history quit 12 years ago, overactive bladder, macular degeneration, and history of CVA admitted for COPD exacerbation with acute hypoxic respiratory failure. acute COPD exacerbation with acute hypoxic respiratory failure-following COVID- 19 infection -methylprednisolone 60 mg b.i.d.,DuoNebs q.4h while awake,albuterol q.2h p.r.n. -nonproductive cough.? CXR negative.? Hold on antibiotic therapy at this time -continue supplemental O2 to maintain oximetry around 92%.? Desaturates to 79% with ambulation.? Wean as tolerated COVID-19 -initially tested positive on 12/28.? COVID-19 test in the ED positive. -unlikely to still be purulence, however will continue airborne/contact precautions -outside of window for treatment with IV remdesivir -symptomatic management insulin-dependent type 2 diabetes with hyperglycemia possibly related to steroid use. Steroid dose adjusted,hold p.o. anti hyperglycemics Diabetic diet, continue Lantus, adjusted sliding scale coverage. possible component of chf excerebation bnp elevated excersional dyspnea echo:ef 03/11 : Normal left ventricular size and systolic function. There is mildly increased left ventricular wall thickness.? The visually estimated ejection fraction is between 55-60%.? Spectral Doppler is indicative of an impaired relaxation filling pattern.? Elevated filling pressures.? E/E prime ratio is >15, consistent with elevated filling pressures. will add lasix and echo HAYDEE -CPAP at bedtime hypertension -continue metoprolol, losartan, amlodipine CAD/HLD -continue atorvastatin, Zetia, Plavix, metoprolol morbid obesity: Encouraged to lose weight. DVT prophylaxis-Lovenox Full code Med rec pending inpatient need :management of COPD exacerbation with acute hypoxic respiratory failure requiring supplemental O2, IV steroids, and close monitoring for pulmonary decompensation Time Spent With Patient Time: Total time managing care of this patient today ____ minutes. Quality Stroke Does the patient have a stroke diagnosis?: No VTE Prior VTE?: No VTE Risk Level:: Medical - moderate - high VTE Device Contraindication: Treatment Not Indicated VTE Drug Contraindication: N/A - Med Ordered
[2023-01-12 20:09] LABS: Glucose, Whole Blood 388 mg/dL (60-115)
[2023-01-12] MEDS: Insulin Glargine,Hum.rec.anlog 100 UNIT/ML 10 ML VIAL 30 UNIT SUBCUT (21:55)
[2023-01-12] MEDS: Enoxaparin Sodium 40 MG/0.4 ML SYRINGE SUBCUT (21:56)
[2023-01-13] VITALS (10 sets, daily range): BP systolic 113–137; BP diastolic 56–72; PULSE 68–88; RESP 12–20; TEMP 36.2–36.7; O2SAT 94–98; BMI 40.6
--- NOTE | 2023-01-13 07:00 | CA_ITS ---
Transthoracic Echocardiogram Patient (Last, First, Middle): Lilli Yepez A Gender: Female Date of : 1945 Age: 77 Procedure Date: 01/13/2023 Procedure Type: Transthoracic Echocardiogram Location: [facility] Height: 149.86 cm Weight: 90.72 kg BSA: 1.84 m2 Heart Rate: bpm BP: 150 / 56 mmHg Phone Banker: Referring MD: Marely De La Torre MD Symptoms: chf Study Quality: Good W DEFINITY ECG Rhythm: Sinus Conclusions: - The left ventricular systolic function is normal. The calculated ejection fraction is 59% by biplane method. - Evidence suggests grade I (mild) diastolic dysfunction. - No obvious valvular pathology seen on this study. Findings Left Ventricle Normal left ventricular cavity size. The left ventricular systolic function is normal. The calculated ejection fraction is 59% by biplane method. There is no evidence of regional wall motion abnormalities. E/E prime ratio is >15, consistent with elevated filling pressures. Evidence suggests grade I (mild) diastolic dysfunction. There is mild septal asymmetric hypertrophy. Right Ventricle Normal right ventricular cavity size and systolic function. Atria Both atria are normal in size. Aortic Valve There is a normal trileaflet aortic valve. There is no aortic valve stenosis. There is no aortic valve regurgitation. Mitral Valve The mitral valve appears normal. There is no mitral valve regurgitation. There is no mitral valve stenosis. Pulmonic Valve The pulmonic valve is likely normal. Tricuspid Valve There is trace tricuspid valve regurgitation. There is no evidence of pulmonary hypertension. Great Vessels The asc aorta is normal in size. Venous The inferior vena cava is normal in size and collapses greater than 50% with inspiration. Pericardium/Pleural There is a trivial pericardial effusion. Prior Study Comparison No significant change compared to prior study dated: 02/23/2022. Recommendations, Care & Conclusions No obvious valvular pathology seen on this study. Measurements 2D Linear Measurements Ao Root: 2.60 2.1-3.5 cm LVOT Diam: 2.00 3.0+(-)1.3 cm 2D Systolic Function EF 4C: 61.30 >55% EF 2C: 57.40 >55% EF BiP: 59.40 >55% Mitral Valve MV Pk E: 0.87 MV PK A: 1.22 MV Decel Time: 226.00 E/A: 0.70 E'Lateral: 5.66 E'Medial: 4.57 E/E' Med: 18.90 E/E' Lat: 15.30 PHT: 66.00 MVA PHT: 3.33 Decel [place]: 3.82 Aortic Valve AoV Pk Stuart: 1.40 AoV Mn Stuart: 0.93 AoV VTI: 0.31 AoV Pk Grad: 8.00 Aov Mn Grad: 4.00 ALEKSANDAR Cont.VTI: 2.22 LVOT LVOT Pk Stuart: 0.78 LVOT Mn Stuart: 0.58 LVOT VTI: 0.22 LVOT Pk Grad: 2.00 LVOT Mn Grad: 2.00 LVOT Diam: 2.00 LVOT Area: 3.14 Diastolic Function MV Pk E: 0.87 MV Pk A: 1.22 E/A: 0.70 E'Medial: 4.57 E/E' Med: 18.90 E' Laterial: 5.66 E/E' Lat: 15.30 Right Ventricle TAPSE (mm): 22.00 TVS' Stuart: 14.00 Tricuspid Valve TR Pk Stuart: 1.85 TR Pk Grad: 14.00 RA Press: 3.00 RVSP: 17.00 Great Vessels Aorta Ao Root-2D: 2.60 2.0-3.7 cm Ao Asc: 3.10 2.1-3.4 cm Pulmonary Valve PV Pk Stuart: 0.82 Peak PV Grad: 3.00 Updated in Other Vendor System with Status of Final Raffi Lynn MD electronically signed on 01/14/2023 11:14:15 AM with status of Final
[2023-01-13 07:26] LABS: Glucose, Whole Blood 266 mg/dL (60-115)
[2023-01-13] MEDS: Insulin Glargine,Hum.rec.anlog 100 UNIT/ML 10 ML VIAL 10 UNIT SUBCUT (07:51)
[2023-01-13] MEDS: Ezetimibe 10 MG TABLET PO (07:52)
[2023-01-13] MEDS: Atorvastatin Calcium 80 MG TABLET PO (07:52)
[2023-01-13] MEDS: Losartan Potassium 50 MG TABLET 100 MG PO (07:52)
[2023-01-13] MEDS: amLODIPine Besylate 2.5 MG TABLET PO (07:52)
[2023-01-13] MEDS: Metoprolol Tartrate 25 MG TABLET PO ×2 (07:52→20:55)
[2023-01-13] MEDS: Clopidogrel Bisulfate 75 MG TABLET PO (07:52)
[2023-01-13] MEDS: Loratadine 10 MG TABLET PO (07:52)
[2023-01-13] MEDS: FLUoxetine HCl 20 MG CAPSULE PO (07:53)
[2023-01-13] MEDS: Fluticasone Propionate Nasal 16 GM SPRAY 1 SPRAY NOSTRIL-B (07:53)
[2023-01-13] MEDS: 0.9 % Sodium Chloride Flush 3 ML SYRINGE IVFLUSH ×2 (07:54→20:57)
[2023-01-13] MEDS: Clotrimazole 1 % Cream 15 GM TUBE 1 APPL TOPICAL (07:56)
[2023-01-13] MEDS: Insulin Lispro 100 UNIT/ML 3 ML VIAL SUBCUT ×4 (08:02→20:56)
[2023-01-13 09:00] LABS: Estimated Average Glucose 223 mg/dL; Hemoglobin A1c % 9.4 %
[2023-01-13 11:03] LABS: Glucose, Whole Blood 373 mg/dL (60-115)
--- NOTE | 2023-01-13 13:25 | HO.PM.IMPN ---
Subjective Subjective Date of Service: 01/13/23 Interval History: armendariz, cough Review of Systems still sob with minimal exceresion but slightly improving Has cough, dry, no fevers Denies any chest pain or nausea or vomiting. Physical Exam Vital Signs: Vital Signs: Last Vital Signs Temp 98.0 F 01/13/23 11:33 Pulse 74 01/13/23 12:16 Resp 18 01/13/23 12:16 BP 132/72 01/13/23 11:33 Pulse Ox 97 01/13/23 11:33 O2 Del Method 01/13/23 11:33 O2 Flow Rate 2 01/10/23 00:00 BMI result Body Mass Index 40.6 Appearance: Alert.? Oriented X3.? not in distress.? cvs: rrr, [id number] . res:? Air entry diminished, has bilateral wheezing. abd: no rebound or guarding ,nt, bs present. ext pulses present , no cyanosis . neuro: axo3 , nonfocal. Objective Data Active Medications Acetaminophen (Acetaminophen 325 Mg Tablet) 650 mg PO Q6H PRN PRN Reason: Pain, Mild (Pain Scale 1-3) Last Admin: 01/11/23 20:23 Dose: 650 mg Documented By: WOLFGANG Albuterol Sulfate (Albuterol Sulfate (0.083%) 2.5 Mg/3 Ml Vial.Neb) 2.5 mg INHALE Q2H PRN PRN Reason: Shortness of Breath/Wheezing Albuterol Sulfate (Albuterol Sulfate 90 Mcg 8 Gm Inhaler) 2 puff INHALE Q6H PRN PRN Reason: wheezing Amlodipine Besylate (Amlodipine Besylate 2.5 Mg Tablet) 2.5 mg PO DAILY [facility]; Protocol Last Admin: 01/13/23 07:52 Dose: 2.5 mg Documented By: ANGELA Atorvastatin Calcium (Atorvastatin Calcium 80 Mg Tablet) 80 mg PO DAILY [facility] Last Admin: 01/13/23 07:52 Dose: 80 mg Documented By: ANGELA Clopidogrel Bisulfate (Clopidogrel Bisulfate 75 Mg Tablet) 75 mg PO DAILY [facility] Last Admin: 01/13/23 07:52 Dose: 75 mg Documented By: ANGELA Clotrimazole (Clotrimazole 1 % Cream 15 Gm Tube) 1 appl TOPICAL BID [facility]; Protocol Last Admin: 01/13/23 07:56 Dose: 1 appl Documented By: ANGELA Albuterol Sulfate 2.5 mg/ (Ipratropium [place] 0.5 mg) 0 mg INHALE RQ4H WHILE AWAKE [facility] Last Admin: 01/13/23 12:14 Dose: 3 each Documented By: RANDALL Dextrose (Dextrose 50 % 25 Gm/50 Ml Syringe) 25 gm IVPUSH Q15M PRN; Protocol PRN Reason: per Hypoglycemia Standing Ord. Docusate Sodium (Docusate Sodium 100 Mg Capsule) 100 mg PO DAILY PRN PRN Reason: Constipation Ezetimibe (Ezetimibe 10 Mg Tablet) 10 mg PO DAILY [facility] Last Admin: 01/13/23 07:52 Dose: 10 mg Documented By: ANGELA Enoxaparin Sodium (Enoxaparin Sodium 40 Mg/0.4 Ml Syringe) 40 mg SUBCUT Q24H [facility] Last Admin: 01/12/23 21:56 Dose: 40 mg Documented By: MINH Fluoxetine HCl (Fluoxetine Hcl 20 Mg Capsule) 20 mg PO DAILY [facility] Last Admin: 01/13/23 07:53 Dose: 20 mg Documented By: ANGELA Fluticasone Propionate (Fluticasone Propionate Nasal 16 Gm [place]) 1 spray NOSTRIL-B DAILY [facility] Last Admin: 01/13/23 07:53 Dose: 1 spray Documented By: ANGELA Glucose (Glucose Gel 15 Gm Gel..Gram.) 15 gm PO Q15M PRN; Protocol PRN Reason: per Hypoglycemia Standing Ord. Guaifenesin (Guaifenesin 200 Mg/10 Ml 10 Ml Liquid) 10 ml PO Q6H PRN PRN Reason: Cough Insulin Glargine (Insulin Glargine,Hum.Rec.Anlog 100 Unit/Ml 10 Ml Vial) 30 unit SUBCUT BEDTIME [facility] Last Admin: 01/12/23 21:55 Dose: 30 unit Documented By: MINH Insulin Glargine (Insulin Glargine,Hum.Rec.Anlog 100 Unit/Ml 10 Ml Vial) 10 unit SUBCUT DAILY [facility] Last Admin: 01/13/23 07:51 Dose: 10 unit Documented By: ANGELA Insulin Human Lispro (Insulin Lispro 100 Unit/Ml 3 Ml Vial) 0 unit SUBCUT QIDACHS [facility]; Protocol Last Admin: 01/13/23 11:51 Dose: 16 unit Documented By: ANGELA Loratadine (Loratadine 10 Mg Tablet) 10 mg PO DAILY [facility] Last Admin: 01/13/23 07:52 Dose: 10 mg Documented By: ANGELA Losartan Potassium (Losartan Potassium 50 Mg Tablet) 100 mg PO DAILY [facility]; Protocol Last Admin: 01/13/23 07:52 Dose: 100 mg Documented By: ANGELA Metoprolol Tartrate (Metoprolol Tartrate 25 Mg Tablet) 25 mg PO BID [facility]; Protocol Last Admin: 01/13/23 07:52 Dose: 25 mg Documented By: ANGELA Nitroglycerin (Nitroglycerin 0.4 Mg Tab.Subl) 0.4 mg SUBLINGUAL Q5M PRN PRN Reason: chest pain Non-Formulary Medication (Fesoterodine [Toviaz]) 8 mg PO DAILY [facility] Ondansetron HCl (Ondansetron Hcl 4 Mg/2 Ml Vial) 4 mg IVPUSH Q8H PRN PRN Reason: Nausea and Vomiting Sodium Chloride (0.9 % Sodium Chloride Flush 3 Ml Syringe) 3 ml IVFLUSH QSHIFT [facility] Last Admin: 01/13/23 07:54 Dose: 3 ml Documented By: ANGELA Labs 01/10/23 06:10 01/12/23 14:48 Labs: Laboratory Results - last 24 hr 01/12/23 01/12/23 01/12/23 14:48 15:58 20:04 Anion Gap 13 Estim Creat Clear Calc 45.3 Estimated GFR 53 POC Glucose 342 H 388 H* Random Glucose 385 H* Estimat Average Glucose Hemoglobin A1c % Calcium 8.8 01/13/23 01/13/23 01/13/23 07:20 08:40 10:59 Anion Gap Estim Creat Clear Calc Estimated GFR POC Glucose 266 H 373 H* Random Glucose Estimat Average Glucose 223 Hemoglobin A1c % 9.4 Calcium Assessment and Plan (1) Hyperglycemia: Status: Acute (2) COPD exacerbation: Status: Acute (3) COVID-19: Status: Acute (4) Hypoxia: Status: Acute (5) Morbid obesity: Status: Acute Plan 77-year-old female with history of coronary artery disease with history of NSTEMI, CKD stage 3, COPD, depression, insulin-dependent type 2 diabetes, diabetic retinopathy, hyperlipidemia, orthostatic hypotension, HAYDEE compliant with CPAP, former smoker with 50+ pack year history quit 12 years ago, overactive bladder, macular degeneration, and history of CVA admitted for COPD exacerbation with acute hypoxic respiratory failure. acute COPD exacerbation with acute hypoxic respiratory failure-following COVID-19 infection DuoNebs q.4h while awake,albuterol q.2h p.r.n. off steriods due to persistent hyperglycemia -nonproductive cough.? CXR negative.? Hold on antibiotic therapy at this time -continue supplemental O2 to maintain oximetry around 92%.? Desaturates to 79% with ambulation.? Wean as tolerated COVID-19 -initially tested positive on 12/28.? COVID-19 test in the ED positive. -unlikely to still be purulence, however will continue airborne/contact precautions -outside of window for treatment with IV remdesivir -symptomatic management,off steriods due to persistent hyperglycemia( considerin not hypoxia) . insulin-dependent type 2 diabetes with hyperglycemia possibly related to steroid use. Hba1c levels 9.4 Steroid dose adjusted,hold p.o. anti hyperglycemics Diabetic diet,adjusted Lantus, adjusted sliding scale coverage. less likely component of chf excerebation-etiology unclear-bnp elevated sob more likely sec to copd ,also covid. echo:ef 03/11 : Normal left ventricular size and systolic function. There is mildly increased left ventricular wall thickness.? The visually estimated ejection fraction is between 55-60%.? Spectral Doppler is indicative of an impaired relaxation filling pattern.? Elevated filling pressures.? E/E prime ratio is >15, consistent with elevated filling pressures. will add lasix and echo HAYDEE -CPAP at bedtime hypertension -continue metoprolol, losartan, amlodipine CAD/HLD -continue atorvastatin, Zetia, Plavix, metoprolol morbid obesity: Encouraged to lose weight. DVT prophylaxis-Lovenox Full code Med rec pending inpatient need :management of COPD exacerbation with acute hypoxic respiratory failure requiring supplemental O2, IV steroids, and close monitoring for pulmonary decompensation Time Spent With Patient Time: Total time managing care of this patient today ____ minutes. Quality Stroke Does the patient have a stroke diagnosis?: No VTE Prior VTE?: No VTE Risk Level:: Medical - moderate - high VTE Device Contraindication: Treatment Not Indicated VTE Drug Contraindication: N/A - Med Ordered
[2023-01-13 16:39] LABS: Glucose, Whole Blood 289 mg/dL (60-115)
[2023-01-13 20:40] LABS: Glucose, Whole Blood 347 mg/dL (60-115)
[2023-01-13] MEDS: Enoxaparin Sodium 40 MG/0.4 ML SYRINGE SUBCUT (20:56)
[2023-01-13] MEDS: Insulin Glargine,Hum.rec.anlog 100 UNIT/ML 10 ML VIAL 35 UNIT SUBCUT (20:56)
[2023-01-14] VITALS (14 sets, daily range): BP systolic 113–162; BP diastolic 58–67; PULSE 61–101; RESP 16–20; TEMP 36.4–37.1; O2SAT 93–99
[2023-01-14 07:51] LABS: Glucose, Whole Blood 244 mg/dL (60-115)
[2023-01-14] MEDS: Insulin Glargine,Hum.rec.anlog 100 UNIT/ML 10 ML VIAL 15 UNIT SUBCUT (08:30)
[2023-01-14] MEDS: FLUoxetine HCl 20 MG CAPSULE PO (08:31)
[2023-01-14] MEDS: Insulin Lispro 100 UNIT/ML 3 ML VIAL SUBCUT ×4 (08:31→21:55)
[2023-01-14] MEDS: Loratadine 10 MG TABLET PO (08:32)
[2023-01-14] MEDS: Atorvastatin Calcium 80 MG TABLET PO (08:32)
[2023-01-14] MEDS: Metoprolol Tartrate 25 MG TABLET PO ×2 (08:32→21:53)
[2023-01-14] MEDS: Losartan Potassium 50 MG TABLET 100 MG PO (08:32)
[2023-01-14] MEDS: amLODIPine Besylate 2.5 MG TABLET PO (08:32)
[2023-01-14] MEDS: Ezetimibe 10 MG TABLET PO (08:32)
[2023-01-14] MEDS: Clopidogrel Bisulfate 75 MG TABLET PO (08:32)
[2023-01-14] MEDS: 0.9 % Sodium Chloride Flush 3 ML SYRINGE IVFLUSH ×2 (08:33→17:07)
[2023-01-14] MEDS: Fluticasone Propionate Nasal 16 GM SPRAY 1 SPRAY NOSTRIL-B (08:44)
[2023-01-14 10:55] LABS: Glucose, Whole Blood 299 mg/dL (60-115)
--- NOTE | 2023-01-14 11:19 | P.PNIM_ITS ---
Subjective Subjective Date of Service: 01/14/23 Interval History: sob Review of Systems still sob but slowly improvin Has cough, dry, no fevers Denies any chest pain or nausea or vomiting. Physical Exam Vital Signs: Vital Signs: Last Vital Signs Temp 97.5 F 01/14/23 11:11 Pulse 73 01/14/23 11:11 Resp 20 01/14/23 11:11 BP 120/60 01/14/23 11:11 Pulse Ox 95 01/14/23 11:11 O2 Del Method 01/14/23 11:11 O2 Flow Rate 2 01/10/23 00:00 BMI result Body Mass Index 40.6 Appearance: Alert.? Oriented X3.? not in distress.? cvs: rrr, [id number] . res:? Air entry diminished, has bilateral wheezing. abd: no rebound or guarding ,nt, bs present. ext pulses present , no cyanosis . neuro: axo3 , nonfocal. Objective Data Active Medications Acetaminophen (Acetaminophen 325 Mg Tablet) 650 mg PO Q6H PRN PRN Reason: Pain, Mild (Pain Scale 1-3) Last Admin: 01/11/23 20:23 Dose: 650 mg Documented By: WOLFGANG Albuterol Sulfate (Albuterol Sulfate (0.083%) 2.5 Mg/3 Ml Vial.Neb) 2.5 mg INHALE Q2H PRN PRN Reason: Shortness of Breath/Wheezing Albuterol Sulfate (Albuterol Sulfate 90 Mcg 8 Gm Inhaler) 2 puff INHALE Q6H PRN PRN Reason: wheezing Amlodipine Besylate (Amlodipine Besylate 2.5 Mg Tablet) 2.5 mg PO DAILY [facility]; Protocol Last Admin: 01/14/23 08:32 Dose: 2.5 mg Documented By: VIVIAN Atorvastatin Calcium (Atorvastatin Calcium 80 Mg Tablet) 80 mg PO DAILY [facility] Last Admin: 01/14/23 08:32 Dose: 80 mg Documented By: VIVIAN Clopidogrel Bisulfate (Clopidogrel Bisulfate 75 Mg Tablet) 75 mg PO DAILY [facility] Last Admin: 01/14/23 08:32 Dose: 75 mg Documented By: VIVIAN Clotrimazole (Clotrimazole 1 % Cream 15 Gm Tube) 1 appl TOPICAL BID [facility]; Protocol Last Admin: 01/14/23 08:45 Dose: Not Given Documented By: VIVIAN Non-Admin Reason: Med Not Available Albuterol Sulfate 2.5 mg/ (Ipratropium [place] 0.5 mg) 0 mg INHALE RQ4H WHILE AWAKE [facility] Last Admin: 01/14/23 07:48 Dose: 2.5 each Documented By: DANNI Dextrose (Dextrose 50 % 25 Gm/50 Ml Syringe) 25 gm IVPUSH Q15M PRN; Protocol PRN Reason: per Hypoglycemia Standing Ord. Docusate Sodium (Docusate Sodium 100 Mg Capsule) 100 mg PO DAILY PRN PRN Reason: Constipation Ezetimibe (Ezetimibe 10 Mg Tablet) 10 mg PO DAILY [facility] Last Admin: 01/14/23 08:32 Dose: 10 mg Documented By: VIVIAN Enoxaparin Sodium (Enoxaparin Sodium 40 Mg/0.4 Ml Syringe) 40 mg SUBCUT Q24H [facility] Last Admin: 01/13/23 20:56 Dose: 40 mg Documented By: LUCERO Fluoxetine HCl (Fluoxetine Hcl 20 Mg Capsule) 20 mg PO DAILY [facility] Last Admin: 01/14/23 08:31 Dose: 20 mg Documented By: VIVIAN Fluticasone Propionate (Fluticasone Propionate Nasal 16 Gm [place]) 1 spray NOSTRIL-B DAILY [facility] Last Admin: 01/14/23 08:44 Dose: 1 spray Documented By: VIVIAN Glucose (Glucose Gel 15 Gm Gel..Gram.) 15 gm PO Q15M PRN; Protocol PRN Reason: per Hypoglycemia Standing Ord. Guaifenesin (Guaifenesin 200 Mg/10 Ml 10 Ml Liquid) 10 ml PO Q6H PRN PRN Reason: Cough Insulin Glargine (Insulin Glargine,Hum.Rec.Anlog 100 Unit/Ml 10 Ml Vial) 15 unit SUBCUT DAILY [facility] Last Admin: 01/14/23 08:30 Dose: 15 unit Documented By: VIVIAN Insulin Glargine (Insulin Glargine,Hum.Rec.Anlog 100 Unit/Ml 10 Ml Vial) 40 unit SUBCUT BEDTIME [facility] Insulin Human Lispro (Insulin Lispro 100 Unit/Ml 3 Ml Vial) 0 unit SUBCUT QIDACHS [facility]; Protocol Last Admin: 01/14/23 08:31 Dose: 4 unit Documented By: VIVIAN Loratadine (Loratadine 10 Mg Tablet) 10 mg PO DAILY [facility] Last Admin: 01/14/23 08:32 Dose: 10 mg Documented By: VIVIAN Losartan Potassium (Losartan Potassium 50 Mg Tablet) 100 mg PO DAILY [facility]; Protocol Last Admin: 01/14/23 08:32 Dose: 100 mg Documented By: VIVIAN Metoprolol Tartrate (Metoprolol Tartrate 25 Mg Tablet) 25 mg PO BID [facility]; Protocol Last Admin: 01/14/23 08:32 Dose: 25 mg Documented By: VIVIAN Nitroglycerin (Nitroglycerin 0.4 Mg Tab.Subl) 0.4 mg SUBLINGUAL Q5M PRN PRN Reason: chest pain Non-Formulary Medication (Fesoterodine [Toviaz]) 8 mg PO DAILY [facility] Ondansetron HCl (Ondansetron Hcl 4 Mg/2 Ml Vial) 4 mg IVPUSH Q8H PRN PRN Reason: Nausea and Vomiting Sodium Chloride (0.9 % Sodium Chloride Flush 3 Ml Syringe) 3 ml IVFLUSH QSHIFT [facility] Last Admin: 01/14/23 08:33 Dose: 3 ml Documented By: VIVIAN Labs 01/10/23 06:10 01/12/23 14:48 Labs: Laboratory Results - last 24 hr 01/13/23 01/13/23 01/14/23 16:33 20:36 07:47 POC Glucose 289 H 347 H 244 H 01/14/23 10:50 POC Glucose 299 H Assessment and Plan (1) Hyperglycemia: Status: Acute (2) COPD exacerbation: Status: Acute (3) COVID-19: Status: Acute (4) Hypoxia: Status: Acute (5) Morbid obesity: Status: Acute Plan 77-year-old female with history of coronary artery disease with history of NSTEMI, CKD stage 3, COPD, depression, insulin-dependent type 2 diabetes, diabetic retinopathy, hyperlipidemia, orthostatic hypotension, HAYDEE compliant with CPAP, former smoker with 50+ pack year history quit 12 years ago, overactive bladder, macular degeneration, and history of CVA admitted for COPD exacerbation with acute hypoxic respiratory failure. acute COPD exacerbation with acute hypoxic respiratory failure-following COVID- 19 infection DuoNebs q.4h while awake,albuterol q.2h p.r.n. off steriods due to persistent hyperglycemia -nonproductive cough.? CXR negative.? -continue supplemental O2 to maintain oximetry around 92%.still feels sob continue nebs,po small dose steriods , Hold on antibiotic therapy at this time COVID-19 -initially tested positive on 12/28.? COVID-19 test in the ED positive. -unlikely to still be purulence, however will continue airborne/contact precautions -outside of window for treatment with IV remdesivir -symptomatic management,off steriods due to persistent hyperglycemia( considerin not hypoxia) . insulin-dependent type 2 diabetes with hyperglycemia possibly related to steroid use. Hba1c levels 9.4 Steroid dose low dose . Diabetic diet,adjusted Lantus, adjusted sliding scale coverage. less likely component of chf excerebation-etiology unclear-bnp elevated sob more likely sec to copd ,also covid. echo:ef 03/11 : Normal left ventricular size and systolic function. There is mildly increased left ventricular wall thickness.? The visually estimated ejection fraction is between 55-60%.? Spectral Doppler is indicative of an impaired relaxation filling pattern.? Elevated filling pressures.? E/E prime ratio is >15, consistent with elevated filling pressures. echo repeated : prelim seems fine,offical report pendin hold off diurtics. HAYDEE -CPAP at bedtime hypertension -continue metoprolol, losartan, amlodipine CAD/HLD -continue atorvastatin, Zetia, Plavix, metoprolol morbid obesity: Encouraged to lose weight. DVT prophylaxis-Lovenox Full code Med rec pending inpatient need :management of COPD exacerbation with acute hypoxic respiratory failure requiring supplemental O2, steroids, and respiratory status still not n ear her baseline,close monitoring for pulmonary decompensation Time Spent With Patient Time: Total time managing care of this patient today ____ minutes. Quality Stroke Does the patient have a stroke diagnosis?: No VTE Prior VTE?: No VTE Risk Level:: Medical - moderate - high VTE Device Contraindication: Treatment Not Indicated VTE Drug Contraindication: N/A - Med Ordered
[2023-01-14] MEDS: predniSONE 20 MG TABLET PO (14:35)
[2023-01-14 15:51] LABS: Glucose, Whole Blood 418 mg/dL (60-115)
[2023-01-14 16:23] LABS: Glucose, Whole Blood 368 mg/dL (60-115)
[2023-01-14] MEDS: guaiFENesin 200 MG/10 ML 10 ML LIQUID PO (17:04)
[2023-01-14 20:02] LABS: Glucose, Whole Blood 300 mg/dL (60-115)
[2023-01-14] MEDS: Enoxaparin Sodium 40 MG/0.4 ML SYRINGE SUBCUT (21:53)
[2023-01-14] MEDS: Insulin Glargine,Hum.rec.anlog 100 UNIT/ML 10 ML VIAL 40 UNIT SUBCUT (21:55)
[2023-01-15] VITALS (7 sets, daily range): BP systolic 140–156; BP diastolic 59–69; PULSE 72–89; RESP 18–20; TEMP 36.2–36.6; O2SAT 90–95; BMI 41.0
[2023-01-15 07:35] LABS: Glucose, Whole Blood 359 mg/dL (60-115)
[2023-01-15] MEDS: 0.9 % Sodium Chloride Flush 3 ML SYRINGE IVFLUSH (08:45)
[2023-01-15] MEDS: Insulin Glargine,Hum.rec.anlog 100 UNIT/ML 10 ML VIAL 25 UNIT SUBCUT (08:46)
[2023-01-15] MEDS: Insulin Lispro 100 UNIT/ML 3 ML VIAL SUBCUT ×2 (08:47→11:52)
[2023-01-15] MEDS: Fluticasone Propionate Nasal 16 GM SPRAY 1 SPRAY NOSTRIL-B (08:47)
[2023-01-15] MEDS: Atorvastatin Calcium 80 MG TABLET PO (08:48)
[2023-01-15] MEDS: amLODIPine Besylate 2.5 MG TABLET PO (08:48)
[2023-01-15] MEDS: FLUoxetine HCl 20 MG CAPSULE PO (08:48)
[2023-01-15] MEDS: Loratadine 10 MG TABLET PO (08:48)
[2023-01-15] MEDS: Clopidogrel Bisulfate 75 MG TABLET PO (08:48)
[2023-01-15] MEDS: Losartan Potassium 50 MG TABLET 100 MG PO (08:48)
[2023-01-15] MEDS: Ezetimibe 10 MG TABLET PO (08:48)
[2023-01-15] MEDS: Metoprolol Tartrate 25 MG TABLET PO (08:48)
[2023-01-15] MEDS: predniSONE 20 MG TABLET PO (08:49)
[2023-01-15 10:56] LABS: Glucose, Whole Blood 384 mg/dL (60-115)
--- NOTE | 2023-01-15 12:51 | P.DS_ITS ---
DS: Providers Provider Date of Service: 01/15/23 Date of admission: 01/09/23 20:44 Primary care physician: Nahid Waterman MD DS: Diagnosis Discharge Diagnosis (1) COPD exacerbation: Status: Acute (2) COVID-19: Status: Acute (3) Hypoxia: Status: Acute DS: Summary Hospital Course Hospital Course: 77-year-old female with history of coronary artery disease with history of NSTEMI, CKD stage 3, COPD, depression, insulin-dependent type 2 diabetes, diabetic retinopathy, hyperlipidemia, orthostatic hypotension, HAYDEE compliant with CPAP, former smoker with 50+ pack year history quit 12 years ago, overactive bladder, macular degeneration, and history of CVA presents to the ED with her daughter for evaluation of cough and shortness of breath.? She tells me that she tested positive for COVID-19 on 12/28/21 with mild symptoms including nasal congestion.? However, several days ago developed dry cough with shortness of breath and wheezing.? Reports significant dyspnea on exertion.? Denies any fevers, chills, abdominal pain, nausea, vomiting, chest pain.? However she does also tell me that for the last few days she has had about 3 episodes of watery diarrhea daily.? She reports she has been using her albuterol inhaler more frequently without much relief.? On arrival, patient with mild tachypnea to tone 2, hypertensive to 178/48.? No hypoxia on room air, ranging 90-92%.? However, desaturates to 79% with ambulation.? She is non oxygen dependent at home.? Hematology studies and chemistries unremarkable except for mildly elevated BNP of 238, baseline unknown and denies any history CHF.? CXR was negative for any acute cardiopulmonary illness.? Chest CT ordered and results pending.? In the ED, given 125 mg IV methylprednisolone and albuterol updraft.? Patient to be admitted for acute COPD exacerbation with ambulatory hypoxia. hospital course: Acute hypoxemic respiratory failure secondary to COPD exacerbation following COVID infection. ct chest -shows ?Mild centrilobular emphysema,no pneumonia or chf. echo:ef seems fine around 60% (please see full report in imaging section) Patient was started on nebs, steroids, oxygen: Patient shortness of breath improved, off oxygen, home oxygen evaluation pending. Patient could not able to tolerate steroids(even low dose po ) due to hyperglycemia, since shortness of breath seems to be improved will avoid s teroids for now. dm with hyperglycemia : Hemoglobin A1c is 9.4 still. Lantus regimen adjusted, continue home oral hypoglycemic. Monitor fingersticks at home and further management outpatient as per PCP. possible fungal rash: adedd nystatin /clotrimazole. plan: fungal rash: continue nystatin /clotrimazole continue adjusted Lantus regimen adjusted, continue home oral hypoglycemic. Monitor fingersticks at home and further management outpatient as per PCP. Follow-up with PCP outpatient. Above management discussed with the patient drill and she understand and in agreement with the above plan, time spent 50 minute. Time Spent with Patient Time attestation: Total time managing care of this patient today ____ minutes. Discharge coordination time: Greater than 30 minutes Quality: Safe Use of Opioids Does Pt have an Active Cancer Diagnosis on the Problem List?: No Quality: Stroke Does the patient have a stroke diagnosis?: No Physical Exam Vital Signs: Vital Signs: Last Vital Signs Temp 97.2 F 01/15/23 11:47 Pulse 79 01/15/23 11:57 Resp 18 01/15/23 11:57 BP 154/69 H 01/15/23 11:47 Pulse Ox 93 01/15/23 11:47 O2 Del Method 01/15/23 11:47 O2 Flow Rate 2 01/10/23 00:00 BMI result Body Mass Index 41.0 Appearance: Alert.? Oriented X3.? not in distress.? cvs: rrr, [id number] . res:? Air entry diminished, has bilateral wheezing. abd: no rebound or guarding ,nt, bs present. ext pulses present , no cyanosis . neuro: axo3 , nonfocal. DS: Data Data Completed and Pending Labs on day of discharge: Laboratory Results - last 24 hr 01/14/23 01/14/23 01/14/23 15:32 16:15 19:51 POC Glucose 418 H* 368 H* 300 H 01/15/23 01/15/23 07:31 10:51 POC Glucose 359 H* 384 H* Imaging Chest x-ray: Radiologist's impression: ITS Impressions Chest X-Ray 01/09/23 17:42 IMPRESSION: No acute intrathoracic disease. Chest CT 01/09/23 20:49 IMPRESSION: 1. No airspace consolidation or effusions. 2. Mild centrilobular emphysema. 3. No new or suspicious pulmonary nodules. 4. Cholelithiasis. echo: Conclusions: - The left ventricular systolic function is normal.? The ? calculated ejection fraction is 59% by biplane method. ? - Evidence suggests grade I (mild) diastolic dysfunction.? - No obvious valvular pathology seen on this study.? Findings Left Ventricle Normal left ventricular cavity size.? The left ventricular systolic function is normal.? The calculated ejection fraction is 59% by biplane method.? There is no evidence of regional wall motion abnormalities.? E/E prime ratio is >15, consistent with elevated filling pressures.? Evidence suggests grade I (mild) diastolic dysfunction.? There is mild septal asymmetric hypertrophy. Right Ventricle Normal right ventricular cavity size and systolic function. Atria Both atria are normal in size. Aortic Valve There is a normal trileaflet aortic valve.? There is no aortic valve stenosis.? There is no aortic valve regurgitation. Mitral Valve The mitral valve appears normal.? There is no mitral valve regurgitation. There is no mitral valve stenosis. Pulmonic Valve The pulmonic valve is likely normal. Tricuspid Valve There is trace tricuspid valve regurgitation.? There is no evidence of pulmonary hypertension. Great Vessels The asc aorta is normal in size. Venous The inferior vena cava is normal in size and collapses greater than 50% with inspiration. Pericardium/Pleural There is a trivial pericardial effusion. Prior Study Comparison No significant change compared to prior study dated:? 02/23/2022. Recommendations, Care & Conclusions No obvious valvular pathology seen on this study. Discharge Plan Discharge Anticipated Discharge Date/Time: 01/15/23 12:41 Patient Disposition: Home Health Service Discharge Diagnosis: acute COPD exacerbation with acute hypoxic respiratory failure-following COVID-19 infection Referrals: Clint BAUTISTA [Outside] - 1 Week Nahid Waterman MD [Primary Care Provider] - 1 Week Discharge Medications: New docusate sodium 100 mg Capsule 100 mg PO DAILY PRN (Reason: Constipation) Qty: 30 0RF fluticasone propionate 50 mcg/actuation [place],Suspension 1 spray intranasal DAILY Qty: 16 0RF loratadine 10 mg Tablet 10 mg PO DAILY Qty: 5 0RF insulin glargine [Lantus Solostar U-100 Insulin] 100 unit/mL (3 mL) insulin pen 15 unit subcut QAM Qty: 15 0RF Continued nitroglycerin 0.4 mg tablet, sublingual 0.4 mg sublingual Q5M PRN (Reason: chest pain) Qty: 20 1RF Rx Instructions: do not exceed 3 doses per episode amlodipine 2.5 mg tablet 2.5 mg PO DAILY Qty: 90 3RF albuterol sulfate 90 mcg/actuation HFA aerosol inhaler 2 puff INHALATION Q6H PRN (Reason: wheezing) fluoxetine 20 mg capsule 20 mg PO DAILY losartan 100 mg tablet 100 mg PO DAILY metformin 500 mg tablet 500 mg PO BIDWM metoprolol tartrate 25 mg tablet 25 mg PO BID atorvastatin 80 mg tablet 80 mg PO DAILY ezetimibe 10 mg tablet 10 mg PO DAILY (DME) pen needle, diabetic 32 gauge x 5/32 needle See Rx Instructions .ROUTE DAILY Qty: 50 Rx Instructions: As directed fesoterodine [Toviaz] 8 mg tablet extended release 24 hr 8 mg PO DAILY 90 Days Qty: 90 3RF clopidogrel 75 mg tablet 75 mg PO DAILY Changed insulin glargine 100 unit/mL (3 mL) insulin pen 40 unit subcut BEDTIME Qty: 30 0RF Discharge Orders: Discharge Order (Routine); Ordered 01/15/23 Ordered By: Marely De La Torre Diet: Advance to usual diet Activity on Discharge: As tolerated Stand Alone Forms: Patient Portal Discharge page Care Plan Goals: patient was admitted due to sob secondary to COPD exacerbation following COVID infection. Patient was started on nebs, steroids, oxygen: Patient shortness of breath improved, off oxygen, home oxygen evaluation pending. Patient could not able to tolerate steroids(even low dose po ) due to hyperglycemia, since shortness of breath seems to be improved will avoid steroids for now. dm with hyperglycemia : Hemoglobin A1c is 9.4 still. Lantus regimen adjusted, continue home oral hypoglycemic. Monitor fingersticks at home and further management outpatient as per PCP. Health Concerns: as above. Plan of Treatment: as above. Assessment: as above Patient Instructions: Emphysema (DC), Diabetic Hyperglycemia (DC)
--- NOTE | 2023-01-15 13:02 | MHC.CM.PN ---
Patient has been medically cleared for dc to home today, with services. A referral was made to [facility], who has been made aware of today's dc. Patient is covid positive; CM addressed IMM verbally with her, from a distance, at bedside. Patient is aware of and in agreement with the dc plan and she has indicated that her Daughter will transport her to home.
[2023-01-15 15:17] LABS: Glucose, Whole Blood 333 mg/dL (60-115)
[2023-01-16 06:34] LABS: Glucose, Whole Blood 389 mg/dL (60-115)
--- NOTE | 2023-01-24 11:45 | W.MHC.F2F ---
Service Date Service Date: 01/24/23 Encounter Date of encounter: 01/15/23 Encounter: acute hypoxemic respiratory failure in the setting of COPD exacerbation, syncope Reasons for Services Signs and symptoms assessed: sob Reason for detention: medication management, medication treatment and teach disease management MD Overseeing Care: Nahid Waterman Homebound: Leaving the home is medically contraindicated at this time without the asist of a device and/or another person due th the listed conditions above and below. Reason homebound: weakness related to hospital stay Homebound supporting statement: Patient is generalized weak , has multiple comorbidities including COPD need help to go to appointments. Certification: Based on the above findings, I certify that this patient is confined to the home and needs intermittent detention care, physical therapy and/or speech therapy, or continues to need occupational therapy. The patient is under my care, and I have initiated the establishment of the plan of care. The patient will be followed by a physician who will periodically review the plan of care. Time Spent With Patient Time: Total time managing care of this patient today ____ minutes.
== END 2023-01-15 16:23 | disposition home health service (06) | DRG 190 ==
LOC: HO.ED 19:52 → HO.EDOVER 20:52 → HO.IMC 01-10 06:18
PROVIDERS: Physician Assistant; Admitting Provider Physician Assistant; Emergency Provider Emergency Medicine; PCP Internal Medicine; Visit Provider Internal Medicine
DX: J43.2 Centrilobular emphysema (principal); J96.01 Acute respiratory failure with hypoxia; U07.1 COVID-19; Z68.41 Body mass index [BMI] 40.0-44.9, adult; E66.01 Morbid (severe) obesity due to excess calories; N18.30 Chronic kidney disease, stage 3 unspecified; E11.22 Type 2 diabetes mellitus with diabetic chronic kidney disease; I25.10 Atherosclerotic heart disease of native coronary artery without angina pectoris; E78.00 Pure hypercholesterolemia, unspecified; E11.65 Type 2 diabetes mellitus with hyperglycemia; G47.33 Obstructive sleep apnea (adult) (pediatric); B36.9 Superficial mycosis, unspecified; I25.2 Old myocardial infarction; Z87.891 Personal history of nicotine dependence; Z88.5 Allergy status to narcotic agent; Z79.4 Long term (current) use of insulin; Z79.01 Long term (current) use of anticoagulants; Z79.51 Long term (current) use of inhaled steroids; Z79.84 Long term (current) use of oral hypoglycemic drugs; Z79.899 Other long term (current) drug therapy
CPT/HCPCS: 36415; 71046; 71250; 80048; 80076; 82947; 83036; 83735; 83880; 85025; 87635; 93005; 93306; 94640; 94660; 99285; J1650; J1940; J2930; Q9957

== ENCOUNTER 2023-01-17 13:41 | Inpatient (IN) | payer MEDICARE, MEDICAID, SELFPAY ==
[2023-01-17] VITALS (11 sets, daily range): BP systolic 117–184; BP diastolic 32–109; PULSE 65–74; RESP 10–21; TEMP 36.6–36.7; O2SAT 85–98; BMI 40.4
--- NOTE | ~2023-01-17 | CT_ITS ---
EXAMINATION: CT HEAD W/O IV CONTRAST CT FACIAL BONES WITHOUT IV CONTRAST CT CERVICAL SPINE W/O IV CONTRAST CLINICAL INFORMATION: History of fall, trauma, patient on blood thinners. Syncope. COMPARISON: CT of head from 09/21/2020. TECHNIQUE: Head - Contiguous axial imaging of the head was performed from the skull base to the vertex without the administration of intravenous contrast, and axial images are reconstructed at 2 mm and 5 mm slice thickness. Cervical spine and facial bones - Volumetric, helical CT acquisitions of the cervical spine and facial bones obtained without contrast; in addition to the standard set of axial images, multiplanar reformatted images were provided in the coronal and sagittal imaging planes. This CT examination was performed using dose optimization techniques as appropriate, variously including the following: *Automated exposure control *Adjustment of mA and/or kV according to patient size (this includes techniques or standardized protocols for targeted exams where dose is matched to indication/reason for exam; i.e. extremities or head) *Use of iterative reconstruction technique DLP: 1635 mGy-cm (total) FINDINGS: HEAD: No acute findings compared to 09/21/2020. No intracranial hemorrhage, focal mass effect or midline shift. 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 There is dense atherosclerotic calcification of cavernous carotid arteries. No evidence of an acute major vascular territory infarction. Mild parenchymal volume loss with commensurate prominence of ventricles and sulci; no hydrocephalus or extra-axial fluid collections. The calvarium is intact and the mastoid air cells and middle ear cavities are clear. FACIAL BONES: The globes and orbital bartholomew, including lamina papyracea, are intact. Prior ocular lens replacements. The orbital apex, optic canals, and retrobulbar fat planes are normal. The maxilla, mandible and temporomandibular joints are intact. An acute fracture at the tip of the nasal bones is not significantly displaced. The pterygoid plates and zygomatic arches are normal. Mucosal thickening of frontal, ethmoid, sphenoid and maxillary sinuses without air-fluid levels. The mucosal thickening moderate in degree at the right maxillary, frontal and ethmoid sinuses. CERVICAL SPINE: The skull base, C1 and C2 lateral masses and atlantodental articulation are intact. The vertebral body heights are maintained. No fractures in the anterior or posterior elements. No prevertebral soft tissue swelling. Mild multilevel discovertebral degenerative change. There is osseous spurring and subarticular cystic lucency at the degenerated atlantodental articulation. Multilevel facet osteoarthritis is present. The facet osteoarthritis is severe on the left at C3-C4, C4-C5 and C5-C6, and the left C2-C3 facet joint is ankylosed. There is 0.2 cm degenerative anterolisthesis of C3 on C4. Otherwise, alignment is normal. No spinal hematoma or focal fluid collection in the visualized neck. Centrilobular emphysema of the visualized lung apices. Multinodular thyroid gland. The largest nodule in the right thyroid lobe measures up to 1.2 cm. No thyroid imaging follow-up is recommended for incidentally detected nodules of < 1.[address]/CT cervical spine wo IV con IMPRESSION: * No intracranial hemorrhage or other acute intracranial pathology. * No fractures in the degenerated cervical spine. * An acute fracture at the tip of the nasal bones is not significantly displaced. Otherwise, facial bones are intact. * Paranasal sinus disease with presence of mucosal thickening of all sinuses.
--- NOTE | ~2023-01-17 | CT_ITS ---
EXAMINATION: CT ANGIOGRAM OF THE CHEST WITH AND WITHOUT CONTRAST (CT PULMONARY ANGIOGRAM FOR PE) CLINICAL INFORMATION: Elevated d-dimer, Covid and syncope COMPARISON: CT of chest 01/09/2023 TECHNIQUE: Prior to contrast administration, noncontrast localization images were obtained. Subsequently, multidetector volumetric imaging was performed from the thoracic inlet to below the diaphragms following the administration of 65 mL Omnipaque 350 intravenous contrast. No contrast reaction reported Sagittal, coronal, and MIP oblique sagittal reformatted images were obtained on the CT workstation, uploaded to PACS, and reviewed. This CT examination was performed using dose optimization techniques as appropriate, variously including the following: *Automated exposure control *Adjustment of mA and/or kV according to patient size (this includes techniques or standardized protocols for targeted exams where dose is matched to indication/reason for exam; i.e. extremities or head) *Use of iterative reconstruction technique Total exam dose-length product 376 mGy-cm FINDINGS: QUALITY OF STUDY/CONTRAST BOLUS: Satisfactory. PULMONARY ARTERIES: No central or segmental pulmonary emboli. THORACIC AORTA: No aneurysm or dissection. Calcific atherosclerotic changes are present. A severe stenosis in the proximal left subclavian artery is present at its origin. What pressures should be taken in the right arm for increased accuracy. LUNG: Peribronchial thickening is present. No focal consolidation, worrisome nodules or masses. A few tiny punctate densities are seen. PLEURA: No pleural effusion or pneumothorax. MEDIASTINUM: Normal heart size. No pericardial effusion. No hilar or mediastinal lymphadenopathy. No evidence of septal bowing or right heart strain. CORONARY ARTERY CALCIFICATION: Extensive CHEST WALL/AXILLA: No axillary or internal mammary lymphadenopathy. OSSEOUS STRUCTURES: No acute or suspicious osseous abnormality. UPPER ABDOMEN: Innumerable layering small gallstones are present in the gallbladder without evidence of cholecystitis. No reflux of contrast into the hepatic veins to suggest elevated right heart pressures. CT/CT angio chest PE protocol IMPRESSION: 1. No evidence of pulmonary emboli. 2. Severe left subclavian stenosis. 3. Peribronchial thickening consistent with bronchitis. 4. Cholelithiasis without cholecystitis. VTE: negative.
--- NOTE | 2023-01-17 14:13 | ECG_ITS ---
Test Reason : fall Blood Pressure : / mmHG Vent. Rate : 071 BPM Atrial Rate : 071 BPM P-R Int : 160 ms QRS Dur : 084 ms QT Int : 422 ms P-R-T Axes : 068 038 046 degrees QTc Int : 458 ms Normal sinus rhythm Low voltage QRS Nonspecific ST and T wave abnormality Abnormal ECG When compared with ECG of 09-JAN-2023 18:00, Nonspecific T wave abnormality now evident in Inferior leads Nonspecific T wave abnormality now evident in Lateral leads Referred By: Olya Bowman Electronically Signed By:ROBERT SOLIMAN MD
--- NOTE | 2023-01-17 14:27 | ED.FALL ---
HPI - Fall General Chief Complaint: Syncope Stated Complaint: DIZZINESS POST FALL, ON BLOOD THINNERS PER EMS Time Seen by Provider: 01/17/23 13:47 Source: patient Mode of arrival: EMS Limitations: no limitations History of Present Illness HPI Narrative: Patient comes to the emergency room complaining of a near syncopal episode, fall, headache. Patient states that she took a warm shower today, was able to get dressed, and as she was walking out of the bathroom, patient was very lightheaded, started blacking out, fell forward, face planted. Patient on Plavix. Patient states that she has headache, no neck pain, also complaining of minor abrasions in the knees. Patient's daughter is at bedside, states that in the last 48 hours, patient has fallen twice. Of note, patient was discharged 2 days ago from this facility, patient had COVID and COPD exacerbation. Today, patient complaining of shortness of breath only with exertion. Related Data Home Medications Medication Instructions Recorded Confirmed atorvastatin 80 mg tablet 80 mg PO DAILY 12/08/20 01/17/23 ezetimibe 10 mg tablet 10 mg PO DAILY 12/08/20 01/17/23 fluoxetine 20 mg capsule 20 mg PO DAILY 12/08/20 01/17/23 losartan 100 mg tablet 100 mg PO DAILY 12/08/20 01/17/23 metformin 500 mg tablet 500 mg PO BIDWM 12/08/20 01/17/23 metoprolol tartrate 25 mg tablet 25 mg PO BID 12/08/20 01/17/23 pen needle, diabetic 32 gauge x #50 ea 05/25/21 11/07/22 clopidogrel 75 mg tablet 75 mg PO DAILY 04/06/22 01/17/23 albuterol sulfate 90 mcg/actuation 2 puff inhalation Q6H PRN wheezing 01/10/23 01/17/23 aerosol inhaler insulin glargine 100 unit/mL (3 15 unit subcut DAILY 01/17/23 01/17/23 mL) subcutaneous pen Previous Rx's Medication Instructions Recorded nitroglycerin 0.4 mg sublingual 0.4 mg sublingual Q5M PRN chest 03/10/22 tablet pain #20 tabs amlodipine 2.5 mg tablet 2.5 mg PO DAILY #90 tabs 06/27/22 Toviaz 8 mg tablet,extended 8 mg PO DAILY 90 days #90 tabs 11/07/22 release (fesoterodine) docusate sodium 100 mg capsule 100 mg PO DAILY PRN Constipation 01/15/23 #30 caps fluticasone propionate 50 1 spray intranasal DAILY #16 grams 01/15/23 mcg/actuation nasal spray,suspension loratadine 10 mg tablet 10 mg PO DAILY #5 tabs 01/15/23 Allergies Allergy/AdvReac Type Severity Reaction Status Date / Time oxycodone [OXYCODONE] Allergy Mild ITCHING, Verified 01/09/23 17:31 itchy adhesive tape Allergy Unknown Verified 01/09/23 17:31 bee pollen [bee stings] Allergy Swelling Verified 01/09/23 17:31 hydromorphone [From DILAUDID] AdvReac Mild ITCHING Verified 01/09/23 17:31 Review of Systems Review of Systems: Constitutional : No Weight loss, No Fever, No Chills, No Night Sweats, No Fatigue, No Malaise ENT/Mouth : Complaining of nasal bridge pain, No Hearing loss, No Ear Pain, No Nasal Congestion, No Sinus Pain, No Hoarseness, No sore throat, No Rhinorrhea, No Swallowing Difficulty Eyes: No Eye Pain, No Swelling, No Redness, No Foreign Body, No Discharge, No Vision Changes Cardiovascular : No Chest Pain, no palpitations, no edema Respiratory : Mild cough, no wheezing, complaining of shortness of breath with exertion Gastrointestinal : No Nausea, No Vomiting, No Diarrhea, No Constipation, No abdominal Pain, No Hematochezia, No Melena Genitourinary : no irregular bleeding, No Dysuria, No Urinary Frequency, No Hematuria, No Urinary Incontinence, No Urgency, No Flank Pain, No Urinary Flow Changes, No Hesitancy Musculoskeletal : No joint pain, No Myalgias, No Joint Swelling Skin : Complaining of minor abrasions to both knees Neuro : Complaining of weakness, decompensation, multiple falls in 48 hours, No Numbness, No Paresthesias, No Loss of Consciousness, No Dizziness, No Headache Psych : No Anxiety/Panic, No Depression, No SI/HI/AH/VH, No Social Issues, Heme/Lymph: No Bruising, No Bleeding,No Lymphadenopathy Endocrine : No Polyuria, No Polydipsia, No Temperature Intolerance PMFSH Past Medical History Medical History Abnormal nuclear stress test CAD (coronary artery disease) Cataract Chest tightness CKD (chronic kidney disease) COPD (chronic obstructive pulmonary disease) Depression Diabetes Diabetic retinopathy Heart attack Hiatal hernia High cholesterol HLD (hyperlipidemia) Hypercholesterolemia Macular degeneration Mild anemia NSTEMI (non-ST elevated myocardial infarction) Orthostatic hypotension HAYDEE on CPAP Osteoarthritis Overactive bladder Resting tremor Sleep apnea Stroke Syncope Unsteady gait Vertigo Surgical History History of cardiac catheterization History of cataract extraction Hx of colonoscopy Hx of vaginal hysterectomy Status post cardiac catheterization Stented coronary artery Family History Family History Father CVD (cardiovascular disease) Mother Brain aneurysm Social History Social History Are you a primary skin care technician to a significant other at home: No Do you presently have visiting nurse or other home services: Yes (Meals on Wheels) Unable to assess alcohol history related to: Unknown Alcohol intake: never Patient Tobacco Use Status: Former Tobacco user Quit Date: 2013 Tobacco use type: Cigarette Cigarettes Per Day: 1.5 Years Smoked: 50 Smoked in Last 30 Days: No e-Cigarette/Vaping Use: Former Use Use of substances other than those prescribed or required for medical reasons: No Advance Directives: No Advance Directives Information Provided: Yes service: No Current occupational status: retired Physical Exam Vital Signs: Vital Signs: Last Vital Signs Temp 98.0 F 01/17/23 15:26 Pulse 74 01/17/23 15:26 Resp 21 H 01/17/23 15:26 BP 150/34 H 01/17/23 15:50 Pulse Ox 85 L 01/17/23 19:13 O2 Del Method 01/17/23 19:13 BMI result Body Mass Index 40.4 Const: Other: Appearance: Alert. Oriented X3. No acute distress. Eyes: Pupils equal, round and reactive to light. ENT: Pharynx normal. Neck: Normal inspection. Neck supple. No lymph nodes noted. No crepitus CVS: Normal heart rate and rhythm. Pulses normal. Normal S1 and S2 Respiratory: No respiratory distress. Breath sounds normal. No Wheezing. No rales . However, when patient walks, oxygen saturation drops to 85% on room air. Abdomen: Soft and nontender. No rigidity. No distention. Skin: Skin warm and dry. Normal skin color. Normal skin turgor. Extremities: No lower extremity edema. No Lacerations. No Rash Neuro: Oriented X 3. No motor deficit. No sensory deficit. Moving all extremities. No slurred speech. CN 2 through 12 grossly intact Psych: calm, cooperative, normal affect Course Course Course Narrative: -patient's labs and imaging pending Medications Administered Discontinued Medications Generic Name Dose Route Start Last Admin Trade Name Devang PRN Reason Stop Dose Admin Acetaminophen 975 mg 01/17/23 19:37 01/17/23 19:53 Acetaminophen 325 Mg Tablet PO 01/17/23 19:38 975 mg ONCE ONE Administration Iohexol 100 ml 01/17/23 16:31 01/17/23 16:32 Iohexol 350 Mg/Ml 100 Ml Infus..Btl IV 01/17/23 16:32 65 ml ONCE ONE Administration Medical Decision Making Medical Decision Making [facility] Narrative: -patient has a small nasal fracture, nondisplaced, head CT and neck CT do not show any acute findings -patient is still testing positive for COVID-19. -patient's white blood cell count 15, likely secondary to steroid us, lactic acid and blood cultures pending. Patient does not have fever, no episodes of hypotension. Sepsis not suspected. -patient empirically being treated with ceftriaxone and azithromycin IV. -when patient walks, her oxygen saturation drops to 85% on room air. Family is requesting that when patient is ready for discharge from the hospital, to be sent to short-term rehab rather than home, as she decompensated significantly during her previous hospital stay -urinalysis negative for UTI -I discussed the patient with Dr. Rojo, patient being admitted Differential Diagnosis Differential Diagnoses: The differential diagnosis associated with the presentation includes Admission/Observation Consideration of admission/observation: Escalation of care including admission/observation considered Consult Healthcare Provider Management of the patient was discussed with: Hospitalist Lab Data [facility] Lab Attestation statement: I reviewed the patient's lab results. 01/17/23 15:33 01/17/23 15:33 Labs: Lab Results 01/17/23 01/17/23 01/17/23 Range/Units 15:33 15:33 15:33 WBC 15.0 H (4.8-10.8) X10*3/uL RBC 4.33 (4.20-5.50) X10*6/uL Hgb 13.1 (12.0-16.0) g/dl Hct 41.5 (37.0-47.0) % MCV 95.8 (80.0-98.0) fL MCH 30.3 (27.0-33.0) pg MCHC 31.6 (31.0-35.0) g/dl RDW 13.4 (11.0-16.0) % Plt Count 206 (160-400) X10*3/uL MPV 11.2 (9.4-12.3) fL Immature Gran % (Auto) 0.6 H (0.0-0.4) % Neut % (Auto) 83.9 H (45-73) % Lymph % (Auto) 7.7 L (20-40) % [place] % (Auto) 6.2 (2-11) % Eos % (Auto) 1.3 (0-4) % Baso % (Auto) 0.3 (0-2) % Lymph # (Auto) 1.2 (1.2-4.9) X10*3/uL [place] # (Auto) 0.9 (0.1-1.2) X10*3/uL Eos # (Auto) 0.2 (0.0-0.4) X10*3/uL Baso # (Auto) 0.1 (0.0-0.2) X10*3/uL Abs Immat Gran (auto) 0.09 H (0.00-0.03) X10*3/uL Absolute Neuts (auto) 12.6 H (2.0-8.3) x10*3/uL Absolute Nucleated RBC 0.000 (0.0-0.012) X10*3/uL Nucleated RBC % (auto) 0.0 (0.0-0.2) /100WBC D-Dimer High Sensitivty NG/ML Sodium 138 (135-145) mmol/L Potassium 4.4 D (3.3-5.1) mmol/L Chloride 106 (96-108) mmol/L Carbon Dioxide 23 (22-29) mmol/L Anion Gap 13 (12-20) BUN 22 H (9-16) mg/dL Creatinine 0.97 (0.5-1.4) mg/dL Estim Creat Clear Calc 47.7 Estimated GFR 56 Random Glucose 262 H (60-115) mg/dL Calcium 8.6 (8.4-10.2) mg/dL Total Bilirubin 0.9 (0.0-1.0) mg/dL Direct Bilirubin 0.3 (0.0-0.5) mg/dL AST 17 (5-31) U/L ALT 28 (0-31) U/L Alkaline Phosphatase 182 H (39-117) U/L Troponin I High Sens 10.6 (<3.5-17.0) ng/L Total Protein 6.4 L (6.5-8.0) g/dL Albumin 3.7 (3.5-5.0) g/dL Urine Color Urine Appearance Urine pH (5.0-9.0) Ur Specific [place] (1.005-1.025) Urine Protein (Neg-Trace) mg/dL Urine Glucose (UA) (Negative) mg/dL Urine Ketones (Negative) mg/dL Urine Blood (Negative) Urine Nitrite (Negative) Ur Leukocyte Esterase (Negative) 01/17/23 01/17/23 Range/Units 15:33 19:51 WBC (4.8-10.8) X10*3/uL RBC (4.20-5.50) X10*6/uL Hgb (12.0-16.0) g/dl Hct (37.0-47.0) % MCV (80.0-98.0) fL MCH (27.0-33.0) pg MCHC (31.0-35.0) g/dl RDW (11.0-16.0) % Plt Count (160-400) X10*3/uL MPV (9.4-12.3) fL Immature Gran % (Auto) (0.0-0.4) % Neut % (Auto) (45-73) % Lymph % (Auto) (20-40) % [place] % (Auto) (2-11) % Eos % (Auto) (0-4) % Baso % (Auto) (0-2) % Lymph # (Auto) (1.2-4.9) X10*3/uL [place] # (Auto) (0.1-1.2) X10*3/uL Eos # (Auto) (0.0-0.4) X10*3/uL Baso # (Auto) (0.0-0.2) X10*3/uL Abs Immat Gran (auto) (0.00-0.03) X10*3/uL Absolute Neuts (auto) (2.0-8.3) x10*3/uL Absolute Nucleated RBC (0.0-0.012) X10*3/uL Nucleated RBC % (auto) (0.0-0.2) /100WBC D-Dimer High Sensitivty 402 NG/ML Sodium (135-145) mmol/L Potassium (3.3-5.1) mmol/L Chloride (96-108) mmol/L Carbon Dioxide (22-29) mmol/L Anion Gap (12-20) BUN (9-16) mg/dL Creatinine (0.5-1.4) mg/dL Estim Creat Clear Calc Estimated GFR Random Glucose (60-115) mg/dL Calcium (8.4-10.2) mg/dL Total Bilirubin (0.0-1.0) mg/dL Direct Bilirubin (0.0-0.5) mg/dL AST (5-31) U/L ALT (0-31) U/L Alkaline Phosphatase (39-117) U/L Troponin I High Sens (<3.5-17.0) ng/L Total Protein (6.5-8.0) g/dL Albumin (3.5-5.0) g/dL Urine Color Yellow Urine Appearance Clear Urine pH 6.0 (5.0-9.0) Ur Specific [place] 1.015 (1.005-1.025) Urine Protein Trace (Neg-Trace) mg/dL Urine Glucose (UA) Negative (Negative) mg/dL Urine Ketones Negative (Negative) mg/dL Urine Blood Negative (Negative) Urine Nitrite Negative (Negative) Ur Leukocyte Esterase Negative (Negative) Independent Interpretation I performed an independent interpretation of an: CT Scan (My interpretation of head CT: No intracranial bleed) Radiology Impression Discussion of test interpretation with radiology: I have reviewed the radiologist's reading. Radiologist Impression: FINDINGS: QUALITY OF STUDY/CONTRAST BOLUS: Satisfactory. PULMONARY ARTERIES: No central or segmental pulmonary emboli.? THORACIC AORTA: No aneurysm or dissection. Calcific atherosclerotic changes are present. A severe stenosis in the proximal left subclavian artery is present at its origin. What pressures should be taken in the right arm for increased accuracy. LUNG: Peribronchial thickening is present. No focal consolidation, worrisome nodules or masses. A few tiny punctate densities are seen. PLEURA: No pleural effusion or pneumothorax. MEDIASTINUM: Normal heart size.? No pericardial effusion.? No hilar or mediastinal lymphadenopathy.? No evidence of septal bowing or right heart strain. CORONARY ARTERY CALCIFICATION: Extensive CHEST WALL/AXILLA: No axillary or internal mammary lymphadenopathy. OSSEOUS STRUCTURES: No acute or suspicious osseous abnormality.? UPPER ABDOMEN: Innumerable layering small gallstones are present in the gallbladder without evidence of cholecystitis. No reflux of contrast into the hepatic veins to suggest elevated right heart pressures. CT/CT angio chest PE protocol IMPRESSION: 1.? No evidence of pulmonary emboli. 2.? Severe left subclavian stenosis. 3.? Peribronchial thickening consistent with bronchitis. 4.? Cholelithiasis without cholecystitis. VTE: negative. ? CT scan of head, neck, facial bones HEAD: No acute findings compared to 09/21/2020. No intracranial hemorrhage, focal mass effect or midline shift. 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 There is dense atherosclerotic calcification of cavernous carotid arteries. No evidence of an acute major vascular territory infarction. Mild parenchymal volume loss with commensurate prominence of ventricles and sulci; no hydrocephalus or extra-axial fluid collections. The calvarium is intact and the mastoid air cells and middle ear cavities are clear. FACIAL BONES: The globes and orbital bartholomew, including lamina papyracea, are intact. Prior ocular lens replacements. The orbital apex, optic canals, and retrobulbar fat planes are normal. The maxilla, mandible and temporomandibular joints are intact. An acute fracture at the tip of the nasal bones is not significantly displaced. The pterygoid plates and zygomatic arches are normal. Mucosal thickening of frontal, ethmoid, sphenoid and maxillary sinuses without air-fluid levels. The mucosal thickening moderate in degree at the right maxillary, frontal and ethmoid sinuses. CERVICAL SPINE: The skull base, C1 and C2 lateral masses and atlantodental articulation are intact. The vertebral body heights are maintained.? No fractures in the anterior or posterior elements. No prevertebral soft tissue swelling. Mild multilevel discovertebral degenerative change. There is osseous spurring and subarticular cystic lucency at the degenerated atlantodental articulation. Multilevel facet osteoarthritis is present. The facet osteoarthritis is severe on the left at C3-C4, C4-C5 and C5-C6, and the left C2-C3 facet joint is ankylosed. There is 0.2 cm degenerative anterolisthesis of C3 on C4. Otherwise, alignment is normal. No spinal hematoma or focal fluid collection in the visualized neck. Centrilobular emphysema of the visualized lung apices. Multinodular thyroid gland. The largest nodule in the right thyroid lobe measures up to 1.2 cm. No thyroid imaging follow-up is recommended for incidentally detected nodules of < 1.[address]/CT head/brain wo IV con IMPRESSION: *? No intracranial hemorrhage or other acute intracranial pathology. *? No fractures in the degenerated cervical spine. *? An acute fracture at the tip of the nasal bones is not significantly displaced. Otherwise, facial bones are intact. *? Paranasal sinus disease with presence of mucosal thickening of all sinuses. Critical Care Time Critical Care Time Critical Care Time: Yes Total Critical Care Time: 60 Attestation: I have personally provided critical care time. Time includes review of lab data, radiology results, discussion with consultants, and monitoring for potential decompensation. Intervention performed as documented. Discharge Plan Discharge Clinical Impression: Clinical decompensation, Hypoxic, Multiple falls, Closed fracture nasal bone Patient Disposition: Admitted As Inpatient Prescriptions: No Action nitroglycerin 0.4 mg tablet, sublingual 0.4 mg sublingual Q5M PRN (Reason: chest pain) Qty: 20 1RF Rx Instructions: do not exceed 3 doses per episode amlodipine 2.5 mg tablet 2.5 mg PO DAILY Qty: 90 3RF insulin glargine 100 unit/mL (3 mL) insulin pen 15 unit subcut DAILY albuterol sulfate 90 mcg/actuation HFA aerosol inhaler 2 puff INHALATION Q6H PRN (Reason: wheezing) docusate sodium 100 mg Capsule 100 mg PO DAILY PRN (Reason: Constipation) Qty: 30 0RF fluticasone propionate 50 mcg/actuation [place],Suspension 1 spray intranasal DAILY Qty: 16 0RF loratadine 10 mg Tablet 10 mg PO DAILY Qty: 5 0RF fluoxetine 20 mg capsule 20 mg PO DAILY losartan 100 mg tablet 100 mg PO DAILY metformin 500 mg tablet 500 mg PO BIDWM metoprolol tartrate 25 mg tablet 25 mg PO BID atorvastatin 80 mg tablet 80 mg PO DAILY ezetimibe 10 mg tablet 10 mg PO DAILY (DME) pen needle, diabetic 32 gauge x needle See Rx Instructions .ROUTE DAILY Qty: 50 Rx Instructions: As directed fesoterodine [Toviaz] 8 mg tablet extended release 24 hr 8 mg PO DAILY 90 Days Qty: 90 3RF clopidogrel 75 mg tablet 75 mg PO DAILY
[2023-01-17 15:40] LABS: MANUAL DIFF FLAG NO
[2023-01-17 15:42] LABS: Basophils Absolute Auto 0.1 X10*3/uL (0.0-0.2); Basophils Percent Auto 0.3 % (0-2); Eosinophils Absolute Auto 0.2 X10*3/uL (0.0-0.4); Eosinophils Percent Auto 1.3 % (0-4); Hematocrit 41.5 % (37.0-47.0); Hemoglobin 13.1 g/dl (12.0-16.0); Imm Gran Abs Auto 0.09 X10*3/uL (0.00-0.03); Imm Gran Pct Auto 0.6 % (0.0-0.4); Lymphocytes Absolute Auto 1.2 X10*3/uL (1.2-4.9); Lymphocytes Percent Auto 7.7 % (20-40); Mean Corpuscular HGB Conc 31.6 g/dl (31.0-35.0); Mean Corpuscular Hemoglobin 30.3 pg (27.0-33.0); Mean Corpuscular Volume 95.8 fL (80.0-98.0); Mean Platelet Volume 11.2 fL (9.4-12.3); Monocytes Absolute Auto 0.9 X10*3/uL (0.1-1.2); Monocytes Percent Auto 6.2 % (2-11); Neutrophils Absolute Auto 12.6 x10*3/uL (2.0-8.3); Neutrophils Percent Auto 83.9 % (45-73); Platelet Count 206 X10*3/uL (160-400); Red Blood Count 4.33 X10*6/uL (4.20-5.50); Red Cell Distribution Width 13.4 % (11.0-16.0)
[2023-01-17 15:49] LABS: D Dimer High Sensitivity 402 NG/ML
[2023-01-17 15:57] LABS: Alanine Aminotransferase 28 U/L (0-31); Albumin Level 3.7 g/dL (3.5-5.0); Alkaline Phosphatase 182 U/L (39-117); Anion Gap 13 (12-20); Aspartate Amino Transferase 17 U/L (5-31); Bilirubin Direct 0.3 mg/dL (0.0-0.5); Bilirubin Total 0.9 mg/dL (0.0-1.0); Blood Urea Nitrogen 22 mg/dL (9-16); Calcium 8.6 mg/dL (8.4-10.2); Carbon Dioxide 23 mmol/L (22-29); Chloride 106 mmol/L (96-108); Creatinine Clr Calc Pharmacy 47.7; Estimated Glomerular Filt Rate 56; Glucose Random 262 mg/dL (60-115); Potassium 4.4 mmol/L (3.3-5.1); Sodium 138 mmol/L (135-145); Total Protein 6.4 g/dL (6.5-8.0)
[2023-01-17 16:04] LABS: Troponin-I High Sensitivity 10.6 ng/L (<3.5-17.0)
[2023-01-17] MEDS: iohexoL 350 MG/ML 100 ML INFUS..BTL IV (16:32)
[2023-01-17] MEDS: Acetaminophen 325 MG TABLET 975 MG PO (19:53)
--- NOTE | 2023-01-17 19:55 | PC.NURSE ---
Pt Latoya [email or web address] administered medication per jan for 05/29 headache. urine sample sent for testing.
[2023-01-17 19:58] LABS: Appearance Urine Clear; Color Urine Yellow; Glucose Urine UA Negative (Negative); Leukocyte Esterase Urine Negative (Negative); Nitrite Urine Negative (Negative); Specific Gravity - Urine 1.015 (1.005-1.025); Urine Blood Negative (Negative); Urine Ketones Negative (Negative); Urine Protein Trace mg/dL (Neg-Trace)
--- NOTE | 2023-01-17 21:08 | P.HPHOSP_ITS ---
History of Present Illness Date of Service: 01/17/23 Chief Complaint: Dyspnea This is a 77-year-old female with pertinent history of coronary artery disease, CKD stage 3, COPD not on home oxygen, mood disorder, insulin-dependent type 2 diabetes mellitus, mixed hyperlipidemia, HAYDEE with CPAP, overactive bladder who presents to the emergency department for evaluation of dyspnea. Patient was recently admitted and discharged on 01/14 with acute COPD exacerbation due to COVID-19 pneumonia. Patient states she continued to be dyspneic, worse with exertion upon discharge. It was associated with wheezing and nonproductive cough. Patient denies fever, chills. States she had an episode of fall in the restroom. As per the daughter, patient probably lost consciousness and was dizzy and lightheaded prior to the fall. No rhythmic jerking movement of extremities. No tongue bite or urinary bowel incontinence. Patient denies palpitations, chest pain, abdominal pain, changes in urinary or bowel habits In the emergency department, patient was found to be hypoxemic with ambulation. Review of Systems Constitutional: Constitutional: Reports no additional constitutional complaints Cardiovascular: Cardiovascular: Reports dyspnea on exertion Respiratory: Respiratory: Reports cough, Reports dyspnea on exertion and Reports wheezing Gastrointestinal: Gastrointestinal: Reports no additional gastrointestinal complaints Genitourinary: Genitourinary: Reports no additional female genitourinary co mplaints Allergic/Immunologic: Allergic/Immunologic: Reports wheezing [facility] Medical History Abnormal nuclear stress test CAD (coronary artery disease) Cataract Chest tightness CKD (chronic kidney disease) COPD (chronic obstructive pulmonary disease) Depression Diabetes Diabetic retinopathy Heart attack Hiatal hernia High cholesterol HLD (hyperlipidemia) Hypercholesterolemia Macular degeneration Mild anemia NSTEMI (non-ST elevated myocardial infarction) Orthostatic hypotension HAYDEE on CPAP Osteoarthritis Overactive bladder Resting tremor Sleep apnea Stroke Syncope Unsteady gait Vertigo Family History Father CVD (cardiovascular disease) Mother Brain aneurysm Surgical History History of cardiac catheterization History of cataract extraction Hx of colonoscopy Hx of vaginal hysterectomy Status post cardiac catheterization Stented coronary artery Social History Are you a primary pet caretaker to a significant other at home: No Do you presently have visiting nurse or other home services: Yes (Meals on Wheels) Unable to assess alcohol history related to: Unknown Alcohol intake: never Patient Tobacco Use Status: Former Tobacco user Quit Date: 2013 Tobacco use type: Cigarette Cigarettes Per Day: 1.5 Years Smoked: 50 Smoked in Last 30 Days: No e-Cigarette/Vaping Use: Former Use Use of substances other than those prescribed or required for medical reasons: No Advance Directives: No Advance Directives Information Provided: Yes service: No Current occupational status: retired [employer] Allergies Allergy/AdvReac Type Severity Reaction Status Date / Time oxycodone [OXYCODONE] Allergy Mild ITCHING, Verified 01/09/23 17:31 itchy adhesive tape Allergy Unknown Verified 01/09/23 17:31 bee pollen [bee stings] Allergy Swelling Verified 01/09/23 17:31 hydromorphone [From DILAUDID] AdvReac Mild ITCHING Verified 01/09/23 17:31 Active Medications: Current Medications Acetaminophen (Acetaminophen 325 Mg Tablet) 650 mg PO Q6H PRN PRN Reason: Pain, Mild (Pain Scale 1-3) Albuterol Sulfate 2.5 mg/ (Ipratropium [place] 0.5 mg) 0 mg INHALE RQ4H WHILE AWAKE SARAHI Albuterol Sulfate 2.5 mg/ (Ipratropium [place] 0.5 mg) 0 mg INHALE Q4H PRN PRN Reason: Wheezing Dexamethasone (Dexamethasone 6 Mg Tablet) 6 mg PO DAILY SARAHI Dextrose (Dextrose 50 % 25 Gm/50 Ml Syringe) 25 gm IVPUSH Q15M PRN; Protocol PRN Reason: per Hypoglycemia Standing Ord. Enoxaparin Sodium (Enoxaparin Sodium 40 Mg/0.4 Ml Syringe) 40 mg SUBCUT Q24H SARAHI Glucose (Glucose Gel 15 Gm Gel..Gram.) 15 gm PO Q15M PRN; Protocol PRN Reason: per Hypoglycemia Standing Ord. Azithromycin 500 mg/ Sodium (Chloride) 250 mls @ 125 mls/hr IV ONCE ONE Stop: 01/17/23 22:06 Insulin Glargine (Insulin Glargine,Hum.Rec.Anlog 100 Unit/Ml 10 Ml Vial) 35 unit SUBCUT BEDTIME SARAHI Insulin Glargine (Insulin Glargine,Hum.Rec.Anlog 100 Unit/Ml 10 Ml Vial) 15 unit SUBCUT DAILY [facility] Insulin Human Lispro (Insulin Lispro 100 Unit/Ml 3 Ml Vial) 0 unit SUBCUT QIDACHS [facility]; Protocol Melatonin (Melatonin 3 Mg Tablet) 6 mg PO BEDTIME PRN PRN Reason: Insomnia Ondansetron HCl (Ondansetron Hcl 4 Mg/2 Ml Vial) 4 mg IVPUSH Q8H PRN PRN Reason: Nausea and Vomiting Pharmacy Consult (Consult Rx Perform Med Rec) 1 each MISCELLANE ONCE PRN PRN Reason: Consult order Sodium Chloride (0.9 % Sodium Chloride Flush 3 Ml Syringe) 3 ml IVFLUSH [facility] Home Medications Medication Instructions Recorded Confirmed Last Taken Type atorvastatin 80 mg tablet 80 mg PO DAILY 12/08/20 01/17/23 Unknown History ezetimibe 10 mg tablet 10 mg PO DAILY 12/08/20 01/17/23 08/16/21 History fluoxetine 20 mg capsule 20 mg PO DAILY 12/08/20 01/17/23 08/02/21 History losartan 100 mg tablet 100 mg PO DAILY 12/08/20 01/17/23 Unknown History metformin 500 mg tablet 500 mg PO BIDWM 12/08/20 01/17/23 08/02/21 History metoprolol tartrate 25 mg tablet 25 mg PO BID 12/08/20 01/17/23 08/16/21 History pen needle, diabetic 32 gauge x #50 ea 05/25/21 11/07/22 Unknown History clopidogrel 75 mg tablet 75 mg PO DAILY 04/06/22 01/17/23 Unknown History albuterol sulfate 90 mcg/actuation 2 puff inhalation Q6H PRN wheezing 01/10/23 01/17/23 Unknown History aerosol inhaler insulin glargine 100 unit/mL (3 15 unit subcut DAILY 01/17/23 01/17/23 Unknown History mL) subcutaneous pen Physical Exam Vital Signs and Narrative: Vital Signs: Last Vital Signs Temp 98.0 F 01/17/23 15:26 Pulse 74 01/17/23 15:26 Resp 21 H 01/17/23 15:26 BP 150/34 H 01/17/23 15:50 Pulse Ox 85 L 01/17/23 19:13 O2 Del Method 01/17/23 19:13 BMI result Body Mass Index 40.4 Elderly female lying in bed in mild distress on supplemental oxygen Neck supple, no JVD Regular rate and rhythm, S1-S2 heard Bilateral expiratory wheezing present Abdomen soft nontender, no guarding, no rigidity Patient is awake, alert and oriented to self, place, time and person ; no focal motor deficit Psych: Normal mood No pedal edema Results Labs 01/17/23 15:33 01/17/23 15:33 Labs: Laboratory Results - last 24 hr 01/17/23 01/17/23 01/17/23 15:33 15:33 15:33 MCV 95.8 MCH 30.3 MCHC 31.6 RDW 13.4 Plt Count 206 MPV 11.2 Immature Gran % (Auto) 0.6 H Neut % (Auto) 83.9 H Lymph % (Auto) 7.7 L [place] % (Auto) 6.2 Eos % (Auto) 1.3 Baso % (Auto) 0.3 Lymph # (Auto) 1.2 [place] # (Auto) 0.9 Eos # (Auto) 0.2 Baso # (Auto) 0.1 Abs Immat Gran (auto) 0.09 H Absolute Neuts (auto) 12.6 H Absolute Nucleated RBC 0.000 Nucleated RBC % (auto) 0.0 D-Dimer High Sensitivty Anion Gap 13 Estim Creat Clear Calc 47.7 Estimated GFR 56 Random Glucose 262 H Calcium 8.6 Total Bilirubin 0.9 Direct Bilirubin 0.3 AST 17 ALT 28 Alkaline Phosphatase 182 H Troponin I High Sens 10.6 Total Protein 6.4 L Albumin 3.7 Urine Color Urine Appearance Urine pH Ur Specific [place] Urine Protein Urine Glucose (UA) Urine Ketones Urine Blood Urine Nitrite Ur Leukocyte Esterase 01/17/23 01/17/23 15:33 19:51 MCV MCH MCHC RDW Plt Count MPV Immature Gran % (Auto) Neut % (Auto) Lymph % (Auto) [place] % (Auto) Eos % (Auto) Baso % (Auto) Lymph # (Auto) [place] # (Auto) Eos # (Auto) Baso # (Auto) Abs Immat Gran (auto) Absolute Neuts (auto) Absolute Nucleated RBC Nucleated RBC % (auto) D-Dimer High Sensitivty 402 Anion Gap Estim Creat Clear Calc Estimated GFR Random Glucose Calcium Total Bilirubin Direct Bilirubin AST ALT Alkaline Phosphatase Troponin I High Sens Total Protein Albumin Urine Color Yellow Urine Appearance Clear Urine pH 6.0 Ur Specific [place] 1.015 Urine Protein Trace Urine Glucose (UA) Negative Urine Ketones Negative Urine Blood Negative Urine Nitrite Negative Ur Leukocyte Esterase Negative Imaging Radiologist's Impressions: Impressions Cervical Spine CT 01/17/23 15:20 IMPRESSION: * No intracranial hemorrhage or other acute intracranial pathology. * No fractures in the degenerated cervical spine. * An acute fracture at the tip of the nasal bones is not significantly displaced. Otherwise, facial bones are intact. * Paranasal sinus disease with presence of mucosal thickening of all sinuses. Face CT 01/17/23 15:20 IMPRESSION: * No intracranial hemorrhage or other acute intracranial pathology. * No fractures in the degenerated cervical spine. * An acute fracture at the tip of the nasal bones is not significantly displaced. Otherwise, facial bones are intact. * Paranasal sinus disease with presence of mucosal thickening of all sinuses. Head CT 01/17/23 15:20 IMPRESSION: * No intracranial hemorrhage or other acute intracranial pathology. * No fractures in the degenerated cervical spine. * An acute fracture at the tip of the nasal bones is not significantly displaced. Otherwise, facial bones are intact. * Paranasal sinus disease with presence of mucosal thickening of all sinuses. Chest CTA 01/17/23 16:46 IMPRESSION: 1. No evidence of pulmonary emboli. 2. Severe left subclavian stenosis. 3. Peribronchial thickening consistent with bronchitis. 4. Cholelithiasis without cholecystitis. VTE: negative. Assessment and Plan (1) Hypoxic: Status: Acute Plan This is a 77-year-old female with pertinent history of coronary artery disease, CKD stage 3, COPD not on home oxygen, mood disorder, insulin-dependent type 2 diabetes mellitus, mixed hyperlipidemia, HAYDEE with CPAP, overactive bladder who presents to the emergency department for evaluation of dyspnea. #. acute hypoxemic respiratory failure in the setting of COPD exacerbation due to COVID-19 infection: Continue supplemental oxygen and wean as tolerated. Maintain oxygen saturation greater than 88%. Initiating systemic steroids. Scheduled and p.r.n. DuoNebs. Also initiating azithromycin for pleiotropic effect. #. Syncope: Unclear etiology. Will check orthostatic vital signs. And keep on playground monitor #. insulin-dependent diabetes mellitus with hyperglycemia: Initiating basal plus regimen. Monitor and optimize with systemic steroids #. HAYDEE: Continue home CPAP #. coronary artery disease: Continue statin, metoprolol, Zetia and Plavix #. morbid obesity: Counseled regarding diet and exercise #. overactive bladder: On [employer] Med rec pending DVT prophylaxis: Lovenox 40 mg daily Cardiac diet Full code Admit as inpatient and will require two night minimum hospital stay for supple mental oxygen Time Spent With Patient Time: Total time managing care of this patient today ____ minutes. Quality Stroke Does the patient have a stroke diagnosis?: No VTE Prior VTE?: No VTE Risk Level:: Medical - moderate - high VTE Device Contraindication: Treatment Not Indicated VTE Drug Contraindication: N/A - Med Ordered
[2023-01-17 21:53] LABS: Glucose, Whole Blood 276 mg/dL (60-115)
[2023-01-17 22:39] LABS: Lactic Acid 1.8 mmol/L (0.5-2.0)
[2023-01-17] MEDS: Azithromycin 500 MG in 0.9 % Sodium Chloride 250 ML 125 MG IV (23:14)
[2023-01-17] MEDS: Insulin Lispro 100 UNIT/ML 3 ML VIAL SUBCUT (23:15)
[2023-01-17] MEDS: Insulin Glargine,Hum.rec.anlog 100 UNIT/ML 10 ML VIAL 35 UNIT SUBCUT (23:16)
[2023-01-17] MEDS: Enoxaparin Sodium 40 MG/0.4 ML SYRINGE SUBCUT (23:17)
[2023-01-17] MEDS: dexAMETHasone 6 MG TABLET PO (23:18)
--- NOTE | 2023-01-17 23:29 | PC.NURSE ---
Pt ALEXANDER x 4 administered pt meds per JAN. Respiratory therapist assisting with CPAP placement on patient.
[2023-01-18] VITALS (11 sets, daily range): BP systolic 125–168; BP diastolic 51–118; PULSE 63–82; RESP 12–18; TEMP 36.7; O2SAT 95–98
[2023-01-18 00:27] LABS: COVID-19 Test Negative (Negative); IDNOW Serial# 6674DD1D
[2023-01-18] MEDS: cefTRIAXone sodium 1 GM in 0.9 % Sodium Chloride 50 ML IV (02:14)
[2023-01-18] MEDS: 0.9 % Sodium Chloride Flush 3 ML SYRINGE IVFLUSH ×3 (02:15→21:17)
[2023-01-18 07:15] LABS: Glucose, Whole Blood 266 mg/dL (60-115)
[2023-01-18 07:16] LABS: MANUAL DIFF FLAG NO
[2023-01-18] MEDS: Insulin Lispro 100 UNIT/ML 3 ML VIAL SUBCUT ×4 (07:22→21:16)
[2023-01-18] MEDS: Insulin Glargine,Hum.rec.anlog 100 UNIT/ML 10 ML VIAL 15 UNIT SUBCUT (07:22)
[2023-01-18] MEDS: dexAMETHasone 6 MG TABLET PO (07:22)
[2023-01-18 07:27] LABS: Basophils Percent Auto 0.3 % (0-2); Eosinophils Percent Auto 0.3 % (0-4); Hematocrit 38.2 % (37.0-47.0); Hemoglobin 12.1 g/dl (12.0-16.0); Imm Gran Abs Auto 0.04 X10*3/uL (0.00-0.03); Imm Gran Pct Auto 0.5 % (0.0-0.4); Lymphocytes Absolute Auto 0.8 X10*3/uL (1.2-4.9); Lymphocytes Percent Auto 10.1 % (20-40); Mean Corpuscular HGB Conc 31.7 g/dl (31.0-35.0); Mean Corpuscular Hemoglobin 30.9 pg (27.0-33.0); Mean Corpuscular Volume 97.4 fL (80.0-98.0); Mean Platelet Volume 11.7 fL (9.4-12.3); Monocytes Absolute Auto 0.1 X10*3/uL (0.1-1.2); Monocytes Percent Auto 1.8 % (2-11); Neutrophils Absolute Auto 6.9 x10*3/uL (2.0-8.3); Platelet Count 191 X10*3/uL (160-400); Red Blood Count 3.92 X10*6/uL (4.20-5.50); Red Cell Distribution Width 13.5 % (11.0-16.0); White Blood Count 7.9 X10*3/uL (4.8-10.8)
[2023-01-18 07:35] LABS: Anion Gap 13 (12-20); Blood Urea Nitrogen 18 mg/dL (9-16); Calcium 8.7 mg/dL (8.4-10.2); Carbon Dioxide 23 mmol/L (22-29); Chloride 108 mmol/L (96-108); Creatinine Clr Calc Pharmacy 55.7; Estimated Glomerular Filt Rate > 60; Glucose Random 260 mg/dL (60-115); Sodium 139 mmol/L (135-145)
--- NOTE | 2023-01-18 07:40 | PC.NURSE ---
Pt awake, taken off cpap. Medicated per the mar, tech at bedside doing orthostatic vitals
--- NOTE | 2023-01-18 09:17 | MHC.CM.PN ---
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
--- NOTE | 2023-01-18 09:21 | MHC.CM.PN ---
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
[2023-01-18] MEDS: Clopidogrel Bisulfate 75 MG TABLET PO (10:08)
[2023-01-18] MEDS: Atorvastatin Calcium 80 MG TABLET PO (10:09)
[2023-01-18] MEDS: FLUoxetine HCl 20 MG CAPSULE PO (10:09)
[2023-01-18] MEDS: Metoprolol Tartrate 25 MG TABLET PO ×2 (10:09→21:15)
[2023-01-18] MEDS: Loratadine 10 MG TABLET PO (10:09)
[2023-01-18] MEDS: Ezetimibe 10 MG TABLET PO (10:09)
[2023-01-18] MEDS: amLODIPine Besylate 2.5 MG TABLET PO (10:09)
--- NOTE | 2023-01-18 11:46 | P.PNIM_ITS ---
Subjective Subjective Date of Service: 01/18/23 Interval History: feeling better denies shortness of breath at rest but complaining of shortness of breath with minimal exertion, denies lightheadedness dizziness or headache, denies chest pain, no palpitations, no fevers, no chills, unable to recall events surrounding the fall. Review of Systems Review of Systems: Yes all other systems are reviewed and are negative Physical Exam Vital Signs: Vital Signs: Last Vital Signs Temp 98.0 F 01/18/23 05:32 Pulse 72 01/18/23 11:34 Resp 15 01/18/23 11:34 BP 154/64 H 01/18/23 07:34 Pulse Ox 98 01/18/23 05:32 O2 Del Method 01/18/23 05:32 O2 Flow Rate 2 01/18/23 02:15 BMI result Body Mass Index 40.4 Const: Other: General resting comfortably in no acute distress. mild bruising nasal bridge Neck supple no JVD. CVS regular rate rhythm, Respiratory lungs clear to auscultation, no respiratory distress, no wheeze, no rhonchi. Gastrointestinal abdomen soft, nontender, bowel sounds audible, no guarding , no rigidity. Extremities no edema. Neuro nonfocal , speech clear. Skin bilateral arm bruising/ecchymosis psych appropriate affect Objective Data Active Medications Acetaminophen (Acetaminophen 325 Mg Tablet) 650 mg PO Q6H PRN PRN Reason: Pain, Mild (Pain Scale 1-3) Albuterol Sulfate (Albuterol Sulfate 90 Mcg 8 Gm Inhaler) 2 puff INHALE Q6H PRN PRN Reason: wheezing Amlodipine Besylate (Amlodipine Besylate 2.5 Mg Tablet) 2.5 mg PO DAILY [facility]; Protocol Last Admin: 01/18/23 10:09 Dose: 2.5 mg Documented By: JUANA Atorvastatin Calcium (Atorvastatin Calcium 80 Mg Tablet) 80 mg PO DAILY [facility] Last Admin: 01/18/23 10:09 Dose: 80 mg Documented By: JUANA Clopidogrel Bisulfate (Clopidogrel Bisulfate 75 Mg Tablet) 75 mg PO DAILY [facility] Last Admin: 01/18/23 10:08 Dose: 75 mg Documented By: JUANA Albuterol Sulfate 2.5 mg/ (Ipratropium [place] 0.5 mg) 0 mg INHALE RQ4H WHILE AWAKE [facility] Last Admin: 01/18/23 11:33 Dose: 2.5 each Documented By: RANDALL Dexamethasone (Dexamethasone 6 Mg Tablet) 6 mg PO DAILY [facility] Last Admin: 01/18/23 07:22 Dose: 6 mg Documented By: JUANA Dextrose (Dextrose 50 % 25 Gm/50 Ml Syringe) 25 gm IVPUSH Q15M PRN; Protocol PRN Reason: per Hypoglycemia Standing Ord. Docusate Sodium (Docusate Sodium 100 Mg Capsule) 100 mg PO DAILY PRN PRN Reason: Constipation Ezetimibe (Ezetimibe 10 Mg Tablet) 10 mg PO DAILY [facility] Last Admin: 01/18/23 10:09 Dose: 10 mg Documented By: JUANA Enoxaparin Sodium (Enoxaparin Sodium 40 Mg/0.4 Ml Syringe) 40 mg SUBCUT Q24H [facility] Last Admin: 01/17/23 23:17 Dose: 40 mg Documented By: PAUL Fluoxetine HCl (Fluoxetine Hcl 20 Mg Capsule) 20 mg PO DAILY [facility] Last Admin: 01/18/23 10:09 Dose: 20 mg Documented By: JUANA Fluticasone Propionate (Fluticasone Propionate Nasal 16 Gm Solo) 1 spray NOSTRIL-B DAILY [facility] Last Admin: 01/18/23 10:10 Dose: Not Given Documented By: JUANA Non-Admin Reason: See Note Glucose (Glucose Gel 15 Gm Gel..Gram.) 15 gm PO Q15M PRN; Protocol PRN Reason: per Hypoglycemia Standing Ord. Azithromycin 500 mg/ Sodium (Chloride) 250 mls @ 125 mls/hr IV Q24H [facility] Insulin Glargine (Insulin Glargine,Hum.Rec.Anlog 100 Unit/Ml 10 Ml Vial) 35 unit SUBCUT BEDTIME [facility] Last Admin: 01/17/23 23:16 Dose: 35 unit Documented By: PAUL Insulin Glargine (Insulin Glargine,Hum.Rec.Anlog 100 Unit/Ml 10 Ml Vial) 15 unit SUBCUT DAILY [facility] Last Admin: 01/18/23 07:22 Dose: 15 unit Documented By: JUANA Insulin Human Lispro (Insulin Lispro 100 Unit/Ml 3 Ml Vial) 0 unit SUBCUT QIDACHS [facility]; Protocol Last Admin: 01/18/23 07:22 Dose: 6 unit Documented By: JUANA Loratadine (Loratadine 10 Mg Tablet) 10 mg PO DAILY [facility] Last Admin: 01/18/23 10:09 Dose: 10 mg Documented By: JUANA Melatonin (Melatonin 3 Mg Tablet) 6 mg PO BEDTIME PRN PRN Reason: Insomnia Metoprolol Tartrate (Metoprolol Tartrate 25 Mg Tablet) 25 mg PO BID [facility]; Protocol Last Admin: 01/18/23 10:09 Dose: 25 mg Documented By: JUANA Non-Formulary Medication (Fesoterodine [Toviaz]) 8 mg PO DAILY [facility] Ondansetron HCl (Ondansetron Hcl 4 Mg/2 Ml Vial) 4 mg IVPUSH Q8H PRN PRN Reason: Nausea and Vomiting Pharmacy Consult (Consult Rx Perform Med Rec) 1 each MISCELLANE ONCE PRN PRN Reason: Consult order Sodium Chloride (0.9 % Sodium Chloride Flush 3 Ml Syringe) 3 ml IVFLUSH QSHIFT [facility] Last Admin: 01/18/23 07:23 Dose: 3 ml Documented By: JUANA Labs 01/18/23 06:24 01/18/23 06:24 Labs: Laboratory Results - last 24 hr 01/17/23 01/17/23 01/17/23 15:33 15:33 15:33 MCV 95.8 MCH 30.3 MCHC 31.6 RDW 13.4 Plt Count 206 MPV 11.2 Immature Gran % (Auto) 0.6 H Neut % (Auto) 83.9 H Lymph % (Auto) 7.7 L [place] % (Auto) 6.2 Eos % (Auto) 1.3 Baso % (Auto) 0.3 Lymph # (Auto) 1.2 [place] # (Auto) 0.9 Eos # (Auto) 0.2 Baso # (Auto) 0.1 Abs Immat Gran (auto) 0.09 H Absolute Neuts (auto) 12.6 H Absolute Nucleated RBC 0.000 Nucleated RBC % (auto) 0.0 D-Dimer High Sensitivty Anion Gap 13 Estim Creat Clear Calc 47.7 Estimated GFR 56 POC Glucose Random Glucose 262 H Lactic Acid Calcium 8.6 Total Bilirubin 0.9 Direct Bilirubin 0.3 AST 17 ALT 28 Alkaline Phosphatase 182 H Troponin I High Sens 10.6 Total Protein 6.4 L Albumin 3.7 Urine Color Urine Appearance Urine pH Ur Specific [place] Urine Protein Urine Glucose (UA) Urine Ketones Urine Blood Urine Nitrite Ur Leukocyte Esterase COVID-19 (PINKY) COVID-19 [employer] 01/17/23 01/17/23 01/17/23 15:33 19:51 21:36 MCV MCH MCHC RDW Plt Count MPV Immature Gran % (Auto) Neut % (Auto) Lymph % (Auto) [place] % (Auto) Eos % (Auto) Baso % (Auto) Lymph # (Auto) [place] # (Auto) Eos # (Auto) Baso # (Auto) Abs Immat Gran (auto) Absolute Neuts (auto) Absolute Nucleated RBC Nucleated RBC % (auto) D-Dimer High Sensitivty 402 Anion Gap Estim Creat Clear Calc Estimated GFR POC Glucose 276 H Random Glucose Lactic Acid Calcium Total Bilirubin Direct Bilirubin AST ALT Alkaline Phosphatase Troponin I High Sens Total Protein Albumin Urine Color Yellow Urine Appearance Clear Urine pH 6.0 Ur Specific [place] 1.015 Urine Protein Trace Urine Glucose (UA) Negative Urine Ketones Negative Urine Blood Negative Urine Nitrite Negative Ur Leukocyte Esterase Negative COVID-19 (PINKY) [employer] 01/17/23 01/18/23 01/18/23 21:47 00:09 06:24 MCV 97.4 MCH 30.9 MCHC 31.7 RDW 13.5 Plt Count 191 MPV 11.7 Immature Gran % (Auto) 0.5 H Neut % (Auto) 87.0 H Lymph % (Auto) 10.1 L [place] % (Auto) 1.8 L Eos % (Auto) 0.3 Baso % (Auto) 0.3 Lymph # (Auto) 0.8 L [place] # (Auto) 0.1 Eos # (Auto) 0.0 Baso # (Auto) 0.0 Abs Immat Gran (auto) 0.04 H Absolute Neuts (auto) 6.9 Absolute Nucleated RBC 0.000 Nucleated RBC % (auto) 0.0 D-Dimer High Sensitivty Anion Gap Estim Creat Clear Calc Estimated GFR POC Glucose Random Glucose Lactic Acid 1.8 Calcium Total Bilirubin Direct Bilirubin AST ALT Alkaline Phosphatase Troponin I High Sens Total Protein Albumin Urine Color Urine Appearance Urine pH Ur Specific [place] Urine Protein Urine Glucose (UA) Urine Ketones Urine Blood Urine Nitrite Ur Leukocyte Esterase COVID-19 (PINKY) Negative [employer] See Note 01/18/23 01/18/23 06:24 07:05 MCV MCH MCHC RDW Plt Count MPV Immature Gran % (Auto) Neut % (Auto) Lymph % (Auto) [place] % (Auto) Eos % (Auto) Baso % (Auto) Lymph # (Auto) [place] # (Auto) Eos # (Auto) Baso # (Auto) Abs Immat Gran (auto) Absolute Neuts (auto) Absolute Nucleated RBC Nucleated RBC % (auto) D-Dimer High Sensitivty Anion Gap 13 Estim Creat Clear Calc 55.7 Estimated GFR > 60 POC Glucose 266 H Random Glucose 260 H Lactic Acid Calcium 8.7 Total Bilirubin Direct Bilirubin AST ALT Alkaline Phosphatase Troponin I High Sens Total Protein Albumin Urine Color Urine Appearance Urine pH Ur Specific [place] Urine Protein Urine Glucose (UA) Urine Ketones Urine Blood Urine Nitrite Ur Leukocyte Esterase COVID-19 (PINKY) COVID-19 Clin Com Assessment and Plan (1) Hypoxia: Status: Acute Plan 77-year-old female with pertinent history of coronary artery disease, CKD stage 3, COPD not on home oxygen, mood disorder, insulin-dependent type 2 diabetes mellitus, mixed hyperlipidemia, HAYDEE with CPAP, overactive bladder who presents to the emergency department for evaluation of dyspnea. ?#. acute hypoxemic respiratory failure in the setting of COPD exacerbation due to COVID-19 infection/ bronchitis feeling better, less shortness of breath, continue IV Decadron, Scheduled and p.r.n. DuoNebs, and IV azithromycin, wean oxygen as tolerated not on home oxygen. ?#.?Syncope: Unclear etiology, likely deconditioning from recent hospitalization, blood pressure dropped from lying to sitting position, severe left subclavian Artery stenosis CTA chest showed no PE, severe left subclavian artery stenosis, consult vascular surgery CT head showed no intracranial hemorrhage, it showed acute fracture at tip of the nasal bones give IV fluids monitor blood pressure in both arms and adjust medication to avoid hypotension.? continue tele monitor. ?#. insulin-dependent diabetes mellitus with hyperglycemia: continue diabetic diet insulin and insulin sliding scale monitor point of care q.i.d. hold metformin? ?#. HAYDEE: Continue home CPAP ?#. coronary artery disease: no chest pain, Continue statin, metoprolol, Zetia and Plavix # hypertension hold losartan continue metoprolol and low-dose Norvasc, follow BP ?#. morbid obesity:? Counseled regarding diet and exercise ?#. overactive bladder: On Toviaz ?Med rec completed ?DVT prophylaxis: Lovenox 40 mg daily Full code ? will need continued inpatient hospitalization due to acute hypoxic respiratory failure and COPD exacerbation requiring IV steroids and oxygen. Time Spent With Patient Time: Total time managing care of this patient today ____ minutes. Quality Stroke Does the patient have a stroke diagnosis?: No VTE Prior VTE?: No VTE Risk Level:: Medical - moderate - high VTE Device Contraindication: Treatment Not Indicated VTE Drug Contraindication: N/A - Med Ordered
[2023-01-18] MEDS: Acetaminophen 325 MG TABLET 650 MG PO (12:10)
[2023-01-18] MEDS: Lactated Ringers 1,000 ML 80 ML IVCONT (13:54)
[2023-01-18 14:16] LABS: Glucose, Whole Blood 312 mg/dL (60-115)
[2023-01-18 15:49] LABS: Glucose, Whole Blood 311 mg/dL (60-115)
[2023-01-18 19:42] LABS: Glucose, Whole Blood 382 mg/dL (60-115)
[2023-01-18] MEDS: Insulin Glargine,Hum.rec.anlog 100 UNIT/ML 10 ML VIAL 35 UNIT SUBCUT (21:15)
[2023-01-18] MEDS: Enoxaparin Sodium 40 MG/0.4 ML SYRINGE SUBCUT (21:16)
[2023-01-18] MEDS: Azithromycin 500 MG in 0.9 % Sodium Chloride 250 ML 125 MG IV (21:17)
[2023-01-19] VITALS (10 sets, daily range): BP systolic 152–162; BP diastolic 57–69; PULSE 71–89; RESP 18–20; TEMP 36.6–37.2; O2SAT 93–98
[2023-01-19 08:10] LABS: Glucose, Whole Blood 246 mg/dL (60-115)
[2023-01-19] MEDS: Insulin Lispro 100 UNIT/ML 3 ML VIAL SUBCUT ×4 (08:43→20:55)
[2023-01-19] MEDS: Losartan Potassium 50 MG TABLET PO (08:43)
[2023-01-19] MEDS: Insulin Glargine,Hum.rec.anlog 100 UNIT/ML 10 ML VIAL 15 UNIT SUBCUT (08:43)
[2023-01-19] MEDS: 0.9 % Sodium Chloride Flush 3 ML SYRINGE IVFLUSH ×3 (08:43→20:57)
[2023-01-19] MEDS: Loratadine 10 MG TABLET PO (08:44)
[2023-01-19] MEDS: Atorvastatin Calcium 80 MG TABLET PO (08:44)
[2023-01-19] MEDS: Clopidogrel Bisulfate 75 MG TABLET PO (08:44)
[2023-01-19] MEDS: dexAMETHasone 6 MG TABLET PO (08:44)
[2023-01-19] MEDS: Ezetimibe 10 MG TABLET PO (08:44)
[2023-01-19] MEDS: FLUoxetine HCl 20 MG CAPSULE PO (08:44)
[2023-01-19] MEDS: Metoprolol Tartrate 25 MG TABLET PO ×2 (08:44→20:56)
[2023-01-19 11:19] LABS: Glucose, Whole Blood 316 mg/dL (60-115)
[2023-01-19] MEDS: Fluticasone Propionate Nasal 16 GM SPRAY 1 SPRAY NOSTRIL-B (11:48)
--- NOTE | 2023-01-19 12:52 | PM.CNGS ---
History of Present Illness Consult details Consult date: 01/19/23 Narrative: Very pleasant 77-year-old female presents for evaluation on incidental finding of left subclavian stenosis. She originally was worked up for dyspnea on exertion. This was a readmission for this. She has been having difficulty breathing while ambulating. She subsequently underwent CT angiogram of the chest. She was discovered to have this severe left subclavian stenosis. She now presents to us for vascular evaluation. Of note she is asymptomatic from this. She denies any difficulty with her arms. She actually notes that she is fairly functional with both arms and has never had an issue. Review of Systems Review of Systems: Yes all other systems are reviewed and are negative ENT: Reports Normal hearing present Cardiovascular: Cardiovascular: Denies chest pain at rest, Denies chest pain with activity, Denies pedal edema and Reports dyspnea on exertion Respiratory: Respiratory: Reports cough and Reports dyspnea on exertion Gastrointestinal: Gastrointestinal: Denies abdominal pain Musculoskeletal: Musculoskeletal: Denies abnormal gait, Denies muscle cramps and Denies radiating pain into limb Integumentary/Breasts: Skin/Breast: Denies skin ulcer and Denies wounds Neurologic: Reports Normal hearing present and Denies abnormal gait Psychiatric: Psychiatric: Reports no additional psychiatric complaints PMFSH Past Medical History Medical History Abnormal nuclear stress test CAD (coronary artery disease) Cataract Chest tightness CKD (chronic kidney disease) COPD (chronic obstructive pulmonary disease) Depression Diabetes Diabetic retinopathy Heart attack Hiatal hernia High cholesterol HLD (hyperlipidemia) Hypercholesterolemia Macular degeneration Mild anemia NSTEMI (non-ST elevated myocardial infarction) Orthostatic hypotension HAYDEE on CPAP Osteoarthritis Overactive bladder Resting tremor Sleep apnea Stroke Syncope Unsteady gait Vertigo Family History Family History Father CVD (cardiovascular disease) Mother Brain aneurysm Surgical History Surgical History History of cardiac catheterization History of cataract extraction Hx of colonoscopy Hx of vaginal hysterectomy Status post cardiac catheterization Stented coronary artery Social History Social History Household Members: Significant Other Housing: House Are you a primary medicare specialist to a significant other at home: No Do you presently have visiting nurse or other home services: No Unable to assess alcohol history related to: Unknown Alcohol intake: never Patient Tobacco Use Status: Former Tobacco user Quit Date: 2013 Tobacco use type: Cigarette Cigarettes Per Day: 1.5 Years Smoked: 50 e-Cigarette/Vaping Use: Former Use Second Hand Smoke Exposure: No Advance Directives Date on File: 01/18/23 service: No Current occupational status: retired Meds Allergies Allergy/AdvReac Type Severity Reaction Status Date / Time oxycodone [OXYCODONE] Allergy Mild ITCHING, Verified 01/09/23 17:31 itchy adhesive tape Allergy Unknown Verified 01/09/23 17:31 bee pollen [bee stings] Allergy Swelling Verified 01/09/23 17:31 hydromorphone [From DILAUDID] AdvReac Mild ITCHING Verified 01/09/23 17:31 Active Medications: Current Medications Acetaminophen (Acetaminophen 325 Mg Tablet) 650 mg PO Q6H PRN PRN Reason: Pain, Mild (Pain Scale 1-3) Last Admin: 01/18/23 12:10 Dose: 650 mg Albuterol Sulfate (Albuterol Sulfate 90 Mcg 8 Gm Inhaler) 2 puff INHALE Q6H PRN PRN Reason: wheezing Atorvastatin Calcium (Atorvastatin Calcium 80 Mg Tablet) 80 mg PO DAILY [facility] Last Admin: 01/19/23 08:44 Dose: 80 mg Clopidogrel Bisulfate (Clopidogrel Bisulfate 75 Mg Tablet) 75 mg PO DAILY [facility] Last Admin: 01/19/23 08:44 Dose: 75 mg Albuterol Sulfate 2.5 mg/ (Ipratropium [place] 0.5 mg) 0 mg INHALE RQ4H WHILE AWAKE ON [facility] Last Admin: 01/19/23 11:20 Dose: 2.5 each Dexamethasone (Dexamethasone 6 Mg Tablet) 6 mg PO DAILY [facility] Last Admin: 01/19/23 08:44 Dose: 6 mg Dextrose (Dextrose 50 % 25 Gm/50 Ml Syringe) 25 gm IVPUSH Q15M PRN; Protocol PRN Reason: per Hypoglycemia Standing Ord. Docusate Sodium (Docusate Sodium 100 Mg Capsule) 100 mg PO DAILY PRN PRN Reason: Constipation Ezetimibe (Ezetimibe 10 Mg Tablet) 10 mg PO DAILY [facility] Last Admin: 01/19/23 08:44 Dose: 10 mg Enoxaparin Sodium (Enoxaparin Sodium 40 Mg/0.4 Ml Syringe) 40 mg SUBCUT Q24H [facility] Last Admin: 01/18/23 21:16 Dose: 40 mg Fluoxetine HCl (Fluoxetine Hcl 20 Mg Capsule) 20 mg PO DAILY [facility] Last Admin: 01/19/23 08:44 Dose: 20 mg Fluticasone Propionate (Fluticasone Propionate Nasal 16 Gm [place]) 1 spray NOSTRIL-B DAILY [facility] Last Admin: 01/19/23 11:48 Dose: 1 spray Glucose (Glucose Gel 15 Gm Gel..Gram.) 15 gm PO Q15M PRN; Protocol PRN Reason: per Hypoglycemia Standing Ord. Azithromycin 500 mg/ Sodium (Chloride) 250 mls @ 125 mls/hr IV Q24H [facility] Last Infusion: 01/18/23 23:25 Dose: Infused Insulin Glargine (Insulin Glargine,Hum.Rec.Anlog 100 Unit/Ml 10 Ml Vial) 35 unit SUBCUT BEDTIME [facility] Last Admin: 01/18/23 21:15 Dose: 35 unit Insulin Glargine (Insulin Glargine,Hum.Rec.Anlog 100 Unit/Ml 10 Ml Vial) 15 unit SUBCUT DAILY [facility] Last Admin: 01/19/23 08:43 Dose: 15 unit Insulin Human Lispro (Insulin Lispro 100 Unit/Ml 3 Ml Vial) 0 unit SUBCUT QIDACHS [facility]; Protocol Last Admin: 01/19/23 11:48 Dose: 6 unit Loratadine (Loratadine 10 Mg Tablet) 10 mg PO DAILY [facility] Last Admin: 01/19/23 08:44 Dose: 10 mg Losartan Potassium (Losartan Potassium 50 Mg Tablet) 50 mg PO DAILY [facility]; Protocol Last Admin: 01/19/23 08:43 Dose: 50 mg Melatonin (Melatonin 3 Mg Tablet) 6 mg PO BEDTIME PRN PRN Reason: Insomnia Metoprolol Tartrate (Metoprolol Tartrate 25 Mg Tablet) 25 mg PO BID [facility]; Protocol Last Admin: 01/19/23 08:44 Dose: 25 mg Non-Formulary Medication (Fesoterodine [Toviaz]) 8 mg PO DAILY [facility] Ondansetron HCl (Ondansetron Hcl 4 Mg/2 Ml Vial) 4 mg IVPUSH Q8H PRN PRN Reason: Nausea and Vomiting Pharmacy Consult (Consult Rx Perform Med Rec) 1 each MISCELLANE ONCE PRN PRN Reason: Consult order Sodium Chloride (0.9 % Sodium Chloride Flush 3 Ml Syringe) 3 ml IVFSH QSHIFT ON [facility] Last Admin: 01/19/23 08:43 Dose: 3 ml Home Medications Medication Instructions Recorded Confirmed Last Taken Type atorvastatin 80 mg tablet 80 mg PO DAILY 12/08/20 01/17/23 Unknown History ezetimibe 10 mg tablet 10 mg PO DAILY 12/08/20 01/17/23 08/16/21 History fluoxetine 20 mg capsule 20 mg PO DAILY 12/08/20 01/17/23 08/02/21 History losartan 100 mg tablet 100 mg PO DAILY 12/08/20 01/17/23 Unknown History metformin 500 mg tablet 500 mg PO BIDWM 12/08/20 01/17/23 08/02/21 History metoprolol tartrate 25 mg tablet 25 mg PO BID 12/08/20 01/17/23 08/16/21 History pen needle, diabetic 32 gauge x #50 ea 05/25/21 11/07/22 Unknown History clopidogrel 75 mg tablet 75 mg PO DAILY 04/06/22 01/17/23 Unknown History albuterol sulfate 90 mcg/actuation 2 puff inhalation Q6H PRN wheezing 01/10/23 01/17/23 Unknown History aerosol inhaler insulin glargine 100 unit/mL (3 15 unit subcut DAILY 01/17/23 01/17/23 Unknown History mL) subcutaneous pen Physical Exam Vital Signs: Vital Signs: Last Vital Signs Temp 98.0 F 01/19/23 07:05 Pulse 77 01/19/23 12:00 Resp 18 01/19/23 11:20 BP 158/57 H 01/19/23 07:05 Pulse Ox 93 01/19/23 12:00 O2 Del Method 01/19/23 07:05 O2 Flow Rate 2 01/18/23 02:15 BMI result Body Mass Index 40.4 Const: General: cooperative, healthy appearing and comfortable Orientation/consciousness: oriented to person, oriented to place and oriented to time HEENT: Head: Yes normal to inspection Neck: Neck: Yes normal visual inspection Carotids: no bruits Chest: Chest palpation & inspection: normal inspection of the chest Resp: Other: Shortness of breath when speaking Effort & Inspection: normal respiratory effort and abnormal respiratory pattern Auscultation: clear to auscultation bilaterally, no crackles, no rales, no rhonchi and no wheezes Cardio: Other: Bilateral brachial pulses Rate: regular rate Rhythm: regular rhythm Heart sounds: S1 normal heart sound present and S2 normal heart sound present Bruits: no carotid bruits Peripheral pulses: Peripheral pulses 2+ throughout GI: Inspection: Yes normal to inspection Skin: Wounds: no wounds Hair: normal Neuro: General: oriented to person, oriented to place and oriented to time Cranial nerves: Yes CN's II-XII intact bilaterally and Yes Normal hearing present Cognition (Neuro): normal cognition Motor exam (neuro): 5/5 motor strength present throughout Extrem: Other: venous exam: No significant superficial varicosities or spider telangiectasias, minimal edema General: No clubbing, No cyanosis and No edema Psych: Appearance: grossly normal Mental Status: mental status grossly normal Speech and movement: Normal speech and movement present Results Labs 01/18/23 06:24 01/18/23 06:24 Labs: Abnormal lab results 01/18/23 01/18/23 01/18/23 Range/Units 14:04 15:22 18:50 POC Glucose 312 H 311 H 382 H* (60-115) mg/dL 01/19/23 01/19/23 Range/Units 07:08 11:04 POC Glucose 246 H 316 H (60-115) mg/dL Urine 01/17/23 Range/Units 19:51 Urine Color Yellow Urine Appearance Clear Urine pH 6.0 (5.0-9.0) Ur Specific [place] 1.015 (1.005-1.025) Urine Protein Trace (Neg-Trace) mg/dL Urine Glucose (UA) Negative (Negative) mg/dL All other labs normal. Assessment and Plan (1) Stenosis of left subclavian artery: Status: Acute Plan In short there is concern of left subclavian stenosis for this patient. She is asymptomatic from this. I did have an opportunity to review the CT scan it does appear chronic in nature. She has excellent motor and sensation in bilateral upper extremities in addition to brachial pulse. She appears to be doing relatively well. No intervention is indicated. Will plan for follow-up on an as-needed basis. Thank you for allowing us to participate in her care. If there are any questions or concerns please do not hesitate to contact us. Time Spent With Patient Time: Total time managing care of this patient today ____ minutes. Procedures Date of Service Date of Service: 01/19/23
--- NOTE | 2023-01-19 13:24 | MHC.CM.PN ---
Pt SEEN BY PT, HOME SERVICES RECOMMENDED REFERRAL MADE TO [facility]
--- NOTE | 2023-01-19 14:50 | HO.PM.IMPN ---
Subjective Subjective Date of Service: 01/19/23 Interval History: complaining of generalize weakness, otherwise denies headache lightheadedness or dizziness, cannot recall events surrounding her fall and syncope, blood pressure is equal in both arms, no acute events overnight, no nausea, no vomiting no abdominal pain tolerating diet. Review of Systems Review of Systems: Yes all other systems are reviewed and are negative Physical Exam Vital Signs: Vital Signs: Last Vital Signs Temp 98.0 F 01/19/23 07:05 Pulse 77 01/19/23 12:00 Resp 18 01/19/23 11:20 BP 158/57 H 01/19/23 07:05 Pulse Ox 93 01/19/23 12:00 O2 Del Method 01/19/23 07:05 O2 Flow Rate 2 01/18/23 02:15 BMI result Body Mass Index 40.4 Const: Other: General? resting comfortably in no acute distress.? mild bruising nasal bridge Neck supple no JVD. CVS? regular rate rhythm, Respiratory lungs clear to auscultation, no respiratory distress, no wheeze, no rhonchi. Gastrointestinal abdomen soft, nontender, bowel sounds audible, no guarding , no rigidity. Extremities no? edema. Neuro nonfocal , speech clear. Skin? bilateral arm bruising/ecchymosis psych appropriate affect Objective Data Active Medications Acetaminophen (Acetaminophen 325 Mg Tablet) 650 mg PO Q6H PRN PRN Reason: Pain, Mild (Pain Scale 1-3) Last Admin: 01/18/23 12:10 Dose: 650 mg Documented By: JUANA Albuterol Sulfate (Albuterol Sulfate 90 Mcg 8 Gm Inhaler) 2 puff INHALE Q6H PRN PRN Reason: wheezing Atorvastatin Calcium (Atorvastatin Calcium 80 Mg Tablet) 80 mg PO DAILY [facility] Last Admin: 01/19/23 08:44 Dose: 80 mg Documented By: SONNY Clopidogrel Bisulfate (Clopidogrel Bisulfate 75 Mg Tablet) 75 mg PO DAILY [facility] Last Admin: 01/19/23 08:44 Dose: 75 mg Documented By: SONNY Albuterol Sulfate 2.5 mg/ (Ipratropium [place] 0.5 mg) 0 mg INHALE RQ4H WHILE AWAKE [facility] Last Admin: 01/19/23 11:20 Dose: 2.5 each Documented By: DANNI Dexamethasone (Dexamethasone 6 Mg Tablet) 6 mg PO DAILY [facility] Last Admin: 01/19/23 08:44 Dose: 6 mg Documented By: SONNY Dextrose (Dextrose 50 % 25 Gm/50 Ml Syringe) 25 gm IVPUSH Q15M PRN; Protocol PRN Reason: per Hypoglycemia Standing Ord. Docusate Sodium (Docusate Sodium 100 Mg Capsule) 100 mg PO DAILY PRN PRN Reason: Constipation Ezetimibe (Ezetimibe 10 Mg Tablet) 10 mg PO DAILY [facility] Last Admin: 01/19/23 08:44 Dose: 10 mg Documented By: SONNY Enoxaparin Sodium (Enoxaparin Sodium 40 Mg/0.4 Ml Syringe) 40 mg SUBCUT Q24H [facility] Last Admin: 01/18/23 21:16 Dose: 40 mg Documented By: CALVIN Fluoxetine HCl (Fluoxetine Hcl 20 Mg Capsule) 20 mg PO DAILY [facility] Last Admin: 01/19/23 08:44 Dose: 20 mg Documented By: SONNY Fluticasone Propionate (Fluticasone Propionate Nasal 16 Gm [place]) 1 spray NOSTRIL-B DAILY [facility] Last Admin: 01/19/23 11:48 Dose: 1 spray Documented By: SONNY Glucose (Glucose Gel 15 Gm Gel..Gram.) 15 gm PO Q15M PRN; Protocol PRN Reason: per Hypoglycemia Standing Ord. Azithromycin 500 mg/ Sodium (Chloride) 250 mls @ 125 mls/hr IV Q24H [facility] Last Infusion: 01/18/23 23:25 Dose: 0 mls/hr Documented By: CALVIN Insulin Glargine (Insulin Glargine,Hum.Rec.Anlog 100 Unit/Ml 10 Ml Vial) 35 unit SUBCUT BEDTIME [facility] Last Admin: 01/18/23 21:15 Dose: 35 unit Documented By: CALVIN Insulin Glargine (Insulin Glargine,Hum.Rec.Anlog 100 Unit/Ml 10 Ml Vial) 15 unit SUBCUT DAILY [facility] Last Admin: 01/19/23 08:43 Dose: 15 unit Documented By: SONNY Insulin Human Lispro (Insulin Lispro 100 Unit/Ml 3 Ml Vial) 0 unit SUBCUT QIDACHS [facility]; Protocol Last Admin: 01/19/23 11:48 Dose: 6 unit Documented By: SONNY Loratadine (Loratadine 10 Mg Tablet) 10 mg PO DAILY [facility] Last Admin: 01/19/23 08:44 Dose: 10 mg Documented By: SONNY Losartan Potassium (Losartan Potassium 50 Mg Tablet) 50 mg PO DAILY [facility]; Protocol Last Admin: 01/19/23 08:43 Dose: 50 mg Documented By: SONNY Melatonin (Melatonin 3 Mg Tablet) 6 mg PO BEDTIME PRN PRN Reason: Insomnia Metoprolol Tartrate (Metoprolol Tartrate 25 Mg Tablet) 25 mg PO BID [facility]; Protocol Last Admin: 01/19/23 08:44 Dose: 25 mg Documented By: SONNY Non-Formulary Medication (Fesoterodine [Toviaz]) 8 mg PO DAILY [facility] Ondansetron HCl (Ondansetron Hcl 4 Mg/2 Ml Vial) 4 mg IVPUSH Q8H PRN PRN Reason: Nausea and Vomiting Pharmacy Consult (Consult Rx Perform Med Rec) 1 each MISCELLANE ONCE PRN PRN Reason: Consult order Sodium Chloride (0.9 % Sodium Chloride Flush 3 Ml Syringe) 3 ml IVFLUSH QSHIFT [facility] Last Admin: 01/19/23 08:43 Dose: 3 ml Documented By: SONNY Labs 01/18/23 06:24 01/18/23 06:24 Labs: Laboratory Results - last 24 hr 01/18/23 01/18/23 01/19/23 15:22 18:50 07:08 POC Glucose 311 H 382 H* 246 H 01/19/23 11:04 POC Glucose 316 H Microbiology Microbiology Results: Microbiology 01/17/23 23:00 Blood Culture - Preliminary Blood - Venous No growth after 24 hours. 01/17/23 22:50 Blood Culture - Preliminary Blood - Venous No growth after 24 hours. Assessment and Plan (1) Hypoxia: Status: Acute Plan 77-year-old female with pertinent history of coronary artery disease, CKD stage 3, COPD not on home oxygen, mood disorder, insulin-dependent type 2 diabetes mellitus, mixed hyperlipidemia, HAYDEE with CPAP, overactive bladder who presents to the emergency department for evaluation of dyspnea. ?#. acute hypoxemic respiratory failure in the setting of COPD exacerbation due to COVID-19 infection/ bronchitis feeling better, less shortness of breath, on IV Decadron d2/10, Scheduled and p.r.n. DuoNebs, and IV azithromycin day 2/5 Oxygenation stable on room air . ?#.?Syncope: Unclear etiology, likely deconditioning from recent hospitalization, blood pressure dropped from lying to sitting position, severe left subclavian Artery stenosis not contributing to symptoms CTA chest showed no PE, severe left subclavian artery stenosis, seen by vascular surgery seems chronic patient asymptomatic no intervention planned, has good brachial pulse, equal blood pressures both arms CT head showed no intracranial hemorrhage, it showed acute fracture at tip of the nasal bones obtain PT valve for safe discharge ?#. insulin-dependent diabetes mellitus with hyperglycemia: continue diabetic diet insulin and insulin sliding scale monitor point of care q.i.d. hold metformin? ?#. HAYDEE: Continue home CPAP ?#. coronary artery disease: no chest pain, Continue statin, metoprolol, Zetia and Plavix # hypertension noted to have elevated blood pressure will resume losartan, continue metoprolol, and DC low-dose amlodipine follow BP closely ?#. morbid obesity:? Counseled regarding diet and exercise ?#. overactive bladder: On Toviaz non formulary will place on ditropan ?DVT prophylaxis: Lovenox 40 mg daily Full code ? will need continued inpatient hospitalization due to acute hypoxic respiratory failure and COPD exacerbation requiring IV steroids and oxygen. Time Spent With Patient Time: Total time managing care of this patient today ____ minutes. Quality Stroke Does the patient have a stroke diagnosis?: No VTE Prior VTE?: No VTE Risk Level:: Medical - moderate - high VTE Device Contraindication: Treatment Not Indicated VTE Drug Contraindication: N/A - Med Ordered
[2023-01-19 16:49] LABS: Glucose, Whole Blood 388 mg/dL (60-115)
[2023-01-19 20:17] LABS: Glucose, Whole Blood 458 mg/dL (60-115)
[2023-01-19] MEDS: Insulin Glargine,Hum.rec.anlog 100 UNIT/ML 10 ML VIAL 35 UNIT SUBCUT (20:54)
[2023-01-19] MEDS: Insulin Regular, Human 100 UNIT/ML 3 ML VIAL 10 UNIT IVPUSH (20:55)
[2023-01-19] MEDS: Enoxaparin Sodium 40 MG/0.4 ML SYRINGE SUBCUT (20:56)
[2023-01-19] MEDS: oxyBUTYnin chloride ER 5 MG TAB.ER.24 PO (20:56)
[2023-01-19] MEDS: Azithromycin 500 MG in 0.9 % Sodium Chloride 250 ML 125 MG IV (20:57)
[2023-01-20 03:32] VITALS: BP 153/68; PULSE 78; RESP 18; TEMP 36.1; O2SAT 97
[2023-01-20 07:02] VITALS: BP 143/65; PULSE 64; RESP 20; TEMP 36.1; O2SAT 97
[2023-01-20 07:51] LABS: Glucose, Whole Blood 245 mg/dL (60-115)
[2023-01-20 08:02] VITALS: PULSE 88; RESP 20; O2SAT 98
[2023-01-20] MEDS: Insulin Lispro 100 UNIT/ML 3 ML VIAL SUBCUT ×3 (08:35→16:57)
[2023-01-20] MEDS: FLUoxetine HCl 20 MG CAPSULE PO (08:36)
[2023-01-20] MEDS: dexAMETHasone 6 MG TABLET PO (08:36)
[2023-01-20] MEDS: 0.9 % Sodium Chloride Flush 3 ML SYRINGE IVFLUSH ×2 (08:36→16:51)
[2023-01-20] MEDS: Metoprolol Tartrate 25 MG TABLET PO (08:37)
[2023-01-20] MEDS: Clopidogrel Bisulfate 75 MG TABLET PO (08:37)
[2023-01-20] MEDS: Losartan Potassium 50 MG TABLET 100 MG PO (08:37)
[2023-01-20] MEDS: Ezetimibe 10 MG TABLET PO (08:37)
[2023-01-20] MEDS: Atorvastatin Calcium 80 MG TABLET PO (08:38)
[2023-01-20] MEDS: Loratadine 10 MG TABLET PO (08:38)
[2023-01-20] MEDS: Insulin Glargine,Hum.rec.anlog 100 UNIT/ML 10 ML VIAL 15 UNIT SUBCUT (08:38)
[2023-01-20] MEDS: Fluticasone Propionate Nasal 16 GM SPRAY 1 SPRAY NOSTRIL-B (08:40)
--- NOTE | 2023-01-20 10:43 | MHC.CM.PN ---
pt to be dcd today hvns notified of dc
[2023-01-20 11:22] LABS: Glucose, Whole Blood 413 mg/dL (60-115)
[2023-01-20 11:55] VITALS: PULSE 89; RESP 20; O2SAT 97
--- NOTE | 2023-01-20 12:23 | PM.DS ---
DS: Providers Provider Date of Service: 01/20/23 Date of admission: 01/17/23 20:20 Primary care physician: Nahid Waterman MD Consults: 01/18/23 12:06 Consult to Vascular Surgery Routine Consulting Provider: Franki Mcnally Reason for consultation: left severe subclavian artery stenosis Has provider been notified: No DS: Diagnosis Discharge Diagnosis (1) Hypoxia: Status: Acute DS: Summary Hospital Course Hospital Course: history of presenting illness: Date of Service: 01/17/23 Chief Complaint: Dyspnea This is a 77-year-old female with pertinent history of coronary artery disease, CKD stage 3, COPD not on home oxygen, mood disorder, insulin-dependent type 2 diabetes mellitus, mixed hyperlipidemia, HAYDEE with CPAP, overactive bladder who presents to the emergency department for evaluation of dyspnea.? Patient was recently admitted and discharged on 01/14 with acute COPD exacerbation due to COVID-19 pneumonia.? Patient states she continued to be dyspneic, worse with exertion upon discharge.? It was associated with wheezing and nonproductive cough.? Patient denies fever, chills.? States she had an episode of fall in the restroom.? As per the daughter, patient probably lost consciousness and was dizzy and lightheaded prior to the fall.? No rhythmic jerking movement of extremities.? No tongue bite or urinary bowel incontinence. Patient denies palpitations, chest pain, abdominal pain, changes in urinary or bowel habits In the emergency department, patient was found to be hypoxemic with ambulation. hospital course: 77-year-old female with pertinent history of coronary artery disease, CKD stage 3, COPD not on home oxygen, mood disorder, insulin-dependent type 2 diabetes mellitus, mixed hyperlipidemia, HAYDEE with CPAP, overactive bladder who presents to the emergency department for evaluation of dyspnea and diagnosed to have. ?#. acute hypoxemic respiratory failure in the setting of COPD exacerbation due to COVID-19 infection/ bronchitis patient admitted to medical floor was treated with IV Decadron, updraft treatment and IV azithromycin patient rapidly responded to above treatment oxygenation improved currently finger oximetry stable on room air, patient received 3 day course of steroids and antibiotics, will discontinue Decadron, since patient with no shortness of breath and no hypoxia , COVID positive 10 days ago and also due to elevated blood sugars,recommend to continue home inhalers. ?#.?Syncope: Unclear etiology, likely deconditioning from? recent hospitalization, normal orthostatic blood pressures,severe left subclavian Artery stenosis evaluated by vascular surgery, has good brachial pulse, and equal bilateral blood pressures not contributing to symptoms, CTA chest showed no PE, CT head showed no intracranial hemorrhage, it showed acute fracture at tip of the nasal bones, no further intervention planned, patient has no facial pain patient seen by Physical therapy they recommend home PT since patient is feeling significantly better she is being discharged home with VNA. ?#. insulin-dependent diabetes mellitus with hyperglycemia strongly recommend to follow diabetic diet and take Lantus 35 units at bedtime. ?#. HAYDEE: Continue home CPAP ?#. Coronary artery disease: no chest pain, Continue statin, metoprolol, Zetia and Plavix ?#? hypertension? resume all home medications. ?#. morbid obesity:? Counseled regarding diet and exercise ?#. overactive bladder: continue Toviaz Time Spent with Patient Time attestation: Total time managing care of this patient today ____ minutes. Discharge coordination time: Greater than 30 minutes Quality: Safe Use of Opioids Does Pt have an Active Cancer Diagnosis on the Problem List?: No Quality: Stroke Does the patient have a stroke diagnosis?: No Physical Exam Vital Signs: Vital Signs: Last Vital Signs Temp 97.0 F 01/20/23 07:02 Pulse 89 01/20/23 11:55 Resp 20 01/20/23 11:55 BP 143/65 H 01/20/23 07:02 Pulse Ox 97 01/20/23 07:02 O2 Del Method 01/20/23 07:02 O2 Flow Rate 2 01/18/23 02:15 BMI result Body Mass Index 40.4 Const: Other: General? resting comfortably in no acute distress.? mild bruising nasal bridge Neck supple no JVD. CVS? regular rate rhythm, Respiratory lungs clear to auscultation, no respiratory distress, no wheeze, no rhonchi. Gastrointestinal abdomen soft, nontender, bowel sounds audible, no guarding , no rigidity. Extremities no? edema. Neuro nonfocal , speech clear. Skin? bilateral arm bruising/ecchymosis psych appropriate affect DS: Data Data Completed and Pending Completed studies during hospitalization [Text1]: Procedures Assistance with Respiratory Ventilation, Less than 24 Consecutive Hours, Continuous Positive Airway Pressure (02/20/23) Labs on day of discharge: Laboratory Results - last 24 hr 01/19/23 01/19/23 01/20/23 16:40 20:06 07:01 POC Glucose 388 H* 458 H* 245 H 01/20/23 10:53 POC Glucose 413 H* Preliminary micro results at discharge 01/17/23 23:00 Blood Culture - Preliminary Blood - Venous No growth after 48 hours. 01/17/23 22:50 Blood Culture - Preliminary Blood - Venous No growth after 48 hours. Discharge Plan Discharge Anticipated Discharge Date/Time: 01/20/23 11:27 Patient Disposition: Home Health Service Discharge Diagnosis: syncope acute hypoxic respiratory failure due to COPD exacerbation /COVID-19 infection Referrals: hvns [Other] - 1 Week Nahid Waterman MD [Primary Care Provider] - 1 Week Discharge Medications: Continued nitroglycerin 0.4 mg tablet, sublingual 0.4 mg sublingual Q5M PRN (Reason: chest pain) Qty: 20 1RF Rx Instructions: do not exceed 3 doses per episode amlodipine 2.5 mg tablet 2.5 mg PO DAILY Qty: 90 3RF albuterol sulfate 90 mcg/actuation HFA aerosol inhaler 2 puff INHALATION Q6H PRN (Reason: wheezing) docusate sodium 100 mg Capsule 100 mg PO DAILY PRN (Reason: Constipation) Qty: 30 0RF fluticasone propionate 50 mcg/actuation [place],Suspension 1 spray intranasal DAILY Qty: 16 0RF loratadine 10 mg Tablet 10 mg PO DAILY Qty: 5 0RF fluoxetine 20 mg capsule 20 mg PO DAILY losartan 100 mg tablet 100 mg PO DAILY metformin 500 mg tablet 500 mg PO BIDWM metoprolol tartrate 25 mg tablet 25 mg PO BID atorvastatin 80 mg tablet 80 mg PO DAILY ezetimibe 10 mg tablet 10 mg PO DAILY (DME) pen needle, diabetic 32 gauge x /32 needle See Rx Instructions .ROUTE DAILY Qty: 50 Rx Instructions: As directed fesoterodine [Toviaz] 8 mg tablet extended release 24 hr 8 mg PO DAILY 90 Days Qty: 90 3RF clopidogrel 75 mg tablet 75 mg PO DAILY Changed insulin glargine 100 unit/mL (3 mL) insulin pen 35 unit subcut BEDTIME Qty: 15 0RF Discharge Orders: Discharge Order (Routine); Ordered 01/20/23 Ordered By: Génesis Pichardo Diet: Diabetic diet Activity on Discharge: As tolerated Stand Alone Forms: Patient Portal Discharge page Care Plan Goals: acute hypoxic respiratory failure resolved, continue CPAP at night continue home inhalers syncope unknown etiology no recurrent episodes noted generalized weakness VNA with home PT uncontrolled blood sugars strongly recommend to follow diabetic diet and take Lantus insulin 35 units at bedtime Health Concerns: diabetes mellitus uncontrolled follow diabetic diet use CPAP at night use all inhalers Plan of Treatment: follow-up with primary care physician call for appointment Assessment: as above
[2023-01-20 14:51] VITALS: PULSE 87; RESP 18; O2SAT 98
[2023-01-20 16:17] LABS: Glucose, Whole Blood 517 mg/dL (60-115)
== END 2023-01-20 17:55 | disposition home health service (06) | DRG 190 ==
LOC: HO.ED 20:24 → HO.EDOVER 20:28 → HO.IMC 01-18 14:01
PROVIDERS: Admitting Provider Student in an Organized Health Care Education/Training Program; Emergency Provider Emergency Medicine; PCP Internal Medicine; Visit Provider Hospitalist
DX: J44.1 Chronic obstructive pulmonary disease with (acute) exacerbation (principal); J96.01 Acute respiratory failure with hypoxia; Z68.41 Body mass index [BMI] 40.0-44.9, adult; G47.33 Obstructive sleep apnea (adult) (pediatric); N18.30 Chronic kidney disease, stage 3 unspecified; E11.22 Type 2 diabetes mellitus with diabetic chronic kidney disease; E66.01 Morbid (severe) obesity due to excess calories; E78.2 Mixed hyperlipidemia; I25.10 Atherosclerotic heart disease of native coronary artery without angina pectoris; I12.9 Hypertensive chronic kidney disease with stage 1 through stage 4 chronic kidney disease, or unspecified chronic kidney disease; N32.81 Overactive bladder; E78.00 Pure hypercholesterolemia, unspecified; E11.65 Type 2 diabetes mellitus with hyperglycemia; Z20.822 Contact with and (suspected) exposure to COVID-19; I65.22 Occlusion and stenosis of left carotid artery; U09.9 Post COVID-19 condition, unspecified; R55 Syncope and collapse; I25.2 Old myocardial infarction; Z87.891 Personal history of nicotine dependence; Z88.5 Allergy status to narcotic agent; Z79.4 Long term (current) use of insulin; Z79.02 Long term (current) use of antithrombotics/antiplatelets; Z79.51 Long term (current) use of inhaled steroids; Z79.84 Long term (current) use of oral hypoglycemic drugs; Z79.899 Other long term (current) drug therapy
CPT/HCPCS: 36415; 70450; 70486; 71275; 72125; 80048; 80076; 81003; 82947; 83605; 84484; 85025; 85379; 87040; 87635; 93005; 94640; 94660; 97162; 99285; J0456; J0696; J1650; J8540; Q9967

== ENCOUNTER → 2023-02-28 13:32 | Outpatient (BNVA) | payer MEDICARE, MEDICAID, SELFPAY | PROVIDERS: PCP Internal Medicine; Referring Provider Internal Medicine; Visit Provider Internal Medicine Cardiovascular Disease | DX: I25.10 Atherosclerotic heart disease of native coronary artery without angina pectoris (principal); I95.1 Orthostatic hypotension | CPT/HCPCS: 99212 ==

== ENCOUNTER → 2023-03-27 11:23 | Outpatient (BNVA) | payer MEDICARE, MEDICAID, SELFPAY | PROVIDERS: PCP Internal Medicine; Visit Provider Nurse Practitioner Family | DX: N32.81 Overactive bladder (principal); N39.41 Urge incontinence; R35.1 Nocturia; Z79.899 Other long term (current) drug therapy | CPT/HCPCS: 51798; 99212 ==

== ENCOUNTER 2023-09-18 14:35 | Outpatient (AMB) | payer MEDICARE, MEDICAID, SELFPAY ==
--- NOTE | 2023-09-18 14:47 | MHC.OFFVIS ---
Intake Vital Signs 09/18/23 14:48 Height 4 ft 11 in Weight 209 lb 7.026 oz BMI 42.3 BP 134/82 Blood Pressure Location Rt brachial Pulse 66 Intake Visit Reasons: 6 mth fu Intake Note: 6 month follow-up [facility] [employer] Rider Supervisor Required: No Audio Visual Engineer: Audio Visual Engineer Present Accompanied by: Spouse Allergies oxycodone [OXYCODONE] Allergy (Mild, Verified 03/27/23 11:47) ITCHING, itchy adhesive tape Allergy (Verified 03/27/23 11:47) Unknown bee pollen [bee stings] Allergy (Verified 03/27/23 11:47) Swelling hydromorphone [From DILAUDID] Adverse Reaction (Mild, Verified 03/27/23 11:47) ITCHING Medication List - Last Reconciled 09/18/23 by Dioni Ngo MD albuterol sulfate 90 mcg/actuation 2 puffs inhalation Q6H PRN amlodipine 2.5 mg PO DAILY atorvastatin 80 mg PO DAILY clopidogrel 75 mg PO DAILY docusate sodium 100 mg PO DAILY PRN ezetimibe 10 mg PO DAILY fluoxetine 20 mg PO DAILY fluticasone propionate 50 mcg/actuation 1 spray intranasal DAILY insulin glargine 35 units (0.35 mL) subcut BEDTIME loratadine 10 mg PO DAILY losartan 100 mg PO DAILY metformin 500 mg PO BIDWM metoprolol tartrate 25 mg PO BID nitroglycerin 0.4 mg sublingual Q5M PRN pen needle, diabetic As directed Toviaz ER (fesoterodine) 8 mg PO DAILY 90 days NS HPI HPI Comments History of Present Illness Details Lilli comes for follow-up. She has not had any symptoms orthostatic lightheadedness, syncope. Has neurologic issues with uncontrolled head movement. Denies any orthopnea, PND. Denies any chest discomfort. No bleeding issues or neurologic events. Blood pressures are generally well controlled on current therapy. [facility] Medical History Stenosis of left subclavian artery Multiple falls Macular degeneration Overactive bladder Chest tightness Abnormal nuclear stress test Cataract HAYDEE on CPAP Mild anemia Hypercholesterolemia Resting tremor Osteoarthritis Unsteady gait Vertigo Sleep apnea Diabetic retinopathy Hiatal hernia Depression COPD (chronic obstructive pulmonary disease) CKD (chronic kidney disease) Orthostatic hypotension NSTEMI (non-ST elevated myocardial infarction) Syncope HLD (hyperlipidemia) CAD (coronary artery disease) High cholesterol Diabetes Heart attack Stroke Surgical History Status post cardiac catheterization History of cataract extraction Hx of colonoscopy Hx of vaginal hysterectomy Stented coronary artery History of cardiac catheterization Family History Father CVD (cardiovascular disease) Mother Brain aneurysm Social History Household Members: Significant Other Housing: House Are you a primary cna caregiver to a significant other at home: No Do you presently have visiting nurse or other home services: No Unable to assess alcohol history related to: Unknown Alcohol intake: never Patient Tobacco Use Status: Former Tobacco user Quit Date: 2013 Tobacco use type: Cigarette Cigarettes Per Day: 1.5 Years Smoked: 50 e-Cigarette/Vaping Use: Former Use Second Hand Smoke Exposure: No Advance Directives Date on File: 01/18/23 service: No Current occupational status: retired Review of Systems Const Denies chills, Denies fatigue, Denies fever(s), Denies frequent falls, Denies weakness, Denies weight gain and Denies weight loss ENT Denies dizziness Card Denies chest pain, Denies leg edema, Denies lightheadedness, Denies palpitations, Denies dyspnea, Denies dyspnea on exertion, Denies orthopnea and Denies other (loss of consciousness) Resp Denies cough, Denies dyspnea and Denies dyspnea on exertion GI Denies hematochezia and Denies change in stool character Musc Denies abnormal gait, Denies muscle weakness, Denies numbness, Denies radiating pain into limb and Denies tingling Neuro Denies abnormal gait, Denies dizziness, Denies frequent falls, Denies numbness, Denies tingling and Denies weakness Endo Denies fatigue and Denies palpitations Physical Exam Vital Signs: Last Vital Signs Pulse 66 09/18/23 14:48 BP 134/82 09/18/23 14:48 BMI result Body Mass Index 42.3 Const General: cooperative, comfortable, no acute distress, alert, awake and anxious Nutritional Appearance: obese Orientation/consciousness: patient oriented x3 Limitations: ambulation with walker Neck Neck: Yes trachea midline, Yes supple and Yes no JVD Resp Effort & Inspection: normal respiratory effort Auscultation: clear to auscultation bilaterally Cardio Jugular venous distension: no JVD Palpation: normal PMI Rate: regular rate Rhythm: regular rhythm Heart sounds: S1 normal heart sound present and S2 normal heart sound present GI Auscultation: normal bowel sounds Skin General skin exam: no rashes or lesions noted and ecchymosis Neuro General: patient oriented x3 and no focal motor deficits Extrem General: Yes no clubbing, cyanosis or edema Psych Appearance: grossly normal Assessment & Plan Assessment & Plan (1) CAD (coronary artery disease): Code(s): I25.10 - Atherosclerotic heart disease of [place] coronary artery without angina pectoris Plan: CAD with diffuse vascular disease in multiple segments in about including multiple coronary interventions. Currently not having any symptoms of angina. Advised to continue low-dose aspirin therapy for life. May consider addition of low-dose anticoagulant therapy but Plavix can be discontinued at this point in time. Continue high-intensity statin therapy along with ezetimibe to target goal LDL less than 70 mg/dL. Blood pressure is adequately control at this point time. Target goal blood pressure less than 140 systolic. Continue aggressive control of diabetes goal hemoglobin A1c less than 7%. (2) Orthostatic hypotension: Code(s): I95.1 - Orthostatic hypotension Plan: Orthostatic hypertension due to multiple factors including diffuse vascular disease, possibly autonomic dysfunction related diabetes as well. At this point time blood pressure is very well control. Orthostatic precautions were discussed. We discussed about adequate fluid intake. Advised to call me with any new symptoms that may require changes medication. Goal blood pressure between systolic 100-140 mm Hg. Follow up in the clinic in 6 months time, sooner p.r.n.. Thank you for allowing me to partake in her care Coding Level of Care Code Est Pt Level 4 (87620) Diagnoses CAD (coronary artery disease) I25.10 Orthostatic hypotension I95.1
[2023-09-18 14:48] VITALS: BP 134/82; PULSE 66; BMI 42.3
== END 2023-09-18 15:11 | disposition home or self-care (01) ==
PROVIDERS: PCP Internal Medicine; Visit Provider Internal Medicine Cardiovascular Disease
DX: I25.10 Atherosclerotic heart disease of native coronary artery without angina pectoris (principal); I95.1 Orthostatic hypotension
CPT/HCPCS: 99214

== ENCOUNTER → 2023-09-18 14:35 | Outpatient (BNVA) | payer MEDICARE, MEDICAID, SELFPAY | PROVIDERS: PCP Internal Medicine; Visit Provider Internal Medicine Cardiovascular Disease | DX: I25.10 Atherosclerotic heart disease of native coronary artery without angina pectoris (principal); I95.1 Orthostatic hypotension | CPT/HCPCS: 99212 ==

== ENCOUNTER 2023-10-25 12:51 | Outpatient (REF) | payer MEDICARE, MEDICAID, SELFPAY ==
--- NOTE | ~2023-10-25 | US_ITS ---
EXAMINATION: US KIDNEYS AND BLADDER CLINICAL INFORMATION: Urge incontinence. COMPARISON: CT abdomen and pelvis with contrast 09/21/2020. TECHNIQUE: Real-time imaging of the kidneys and bladder. FINDINGS: RIGHT KIDNEY: 10.3 x 4.0 x 4.8 cm (SAG x AP x TRV). The kidney is normal in size, contour, and echogenicity. Renal cortical thickness is normal. No calculi or focal parenchymal lesions. No hydronephrosis. LEFT KIDNEY: 10.0 x 4.6 x 4.6 cm (SAG x AP x TRV). The kidney is normal in size, contour, and echogenicity. Renal cortical thickness is normal. No renal calculi or hydronephrosis. Benign-appearing renal cyst measuring 1.1 cm. No follow up imaging is recommended. Punctate echogenic foci without shadowing, though some demonstrate twinkle artifact which may reflect nonobstructing stones or may reflect vascular reflectors. BLADDER: Well distended and normal. Bilateral ureteral jets are demonstrated. Prevoid bladder volume is 269.2 mL. Postvoid bladder volume is 58.6 mL. US/US retroperitoneal limited IMPRESSION: 1. Small postvoid bladder residual of 58.6 mL. 2. Punctate echogenic foci without shadowing in the right kidney, though some demonstrate twinkle artifact which may reflect nonobstructing stones or may reflect vascular reflectors.
== END 2023-10-25 12:52 | disposition home or self-care (01) ==
LOC: HO.US 12:51
PROVIDERS: PCP Internal Medicine; Visit Provider Nurse Practitioner Family
DX: N39.41 Urge incontinence (principal); R35.1 Nocturia
CPT/HCPCS: 76775

== ENCOUNTER 2023-11-07 12:47 | Outpatient (AMB) | payer MEDICARE, MEDICAID, SELFPAY ==
--- NOTE | 2023-11-07 13:02 | MHC.OFFVIS ---
Intake Intake Visit Reasons: 1yr follow up/PVR/US(set) Intake Note: Patient is present for follow up PVR/medication review Urology Medications: toviaz 8mg daily Blood Thinner: Clopidogrel PVR: 0 ml's Nutrition Services Associate Required: No Accompanied by: Significant Other Allergies oxycodone [OXYCODONE] Allergy (Mild, Verified 11/07/23 13:54) ITCHING, itchy adhesive tape Allergy (Verified 11/07/23 13:54) Unknown bee pollen [bee stings] Allergy (Verified 11/07/23 13:54) Swelling hydromorphone [From DILAUDID] Adverse Reaction (Mild, Verified 11/07/23 13:54) ITCHING Medication List - Last Reconciled 11/07/23 by TODD Porras- albuterol sulfate 90 mcg/actuation 2 puffs inhalation Q6H PRN amlodipine 2.5 mg PO DAILY atorvastatin 80 mg PO DAILY clopidogrel 75 mg PO DAILY docusate sodium 100 mg PO DAILY PRN ezetimibe 10 mg PO DAILY fluoxetine 20 mg PO DAILY fluticasone propionate 50 mcg/actuation 1 spray intranasal DAILY insulin glargine 35 units (0.35 mL) subcut BEDTIME loratadine 10 mg PO DAILY losartan 100 mg PO DAILY metformin 500 mg PO BIDWM metoprolol tartrate 25 mg PO BID nitroglycerin 0.4 mg sublingual Q5M PRN pen needle, diabetic As directed Toviaz ER (fesoterodine) 8 mg PO DAILY 90 days NS HPI HPI Comments History of Present Illness Details Lilli is a pleasant 77-year-old female who is a patient of Dr. Waterman was accompanied by her at today's office visit. She has a past medical history of multiple falls, macular degeneration, overactive bladder, abnormal nuclear stress test, cataracts, obstructive sleep apnea on CPAP, anemia, hypercholesteremia, resting tremors, osteoarthritis, vertigo, diabetic retinopathy, depression, COPD, chronic kidney disease, NSTEMI, hyperlipidemia, coronary artery disease, hypercholesteremia, diabetes type 2, and stroke. She presents to the office today for a follow up of her overactive bladder. Recent retroperitoneal ultrasound results reviewed with the patient and her today. Bilateral kidneys with no hydronephrosis or calculi noted. Benign-appearing left renal cyst measuring approximately 1.1 cm. No follow up imaging is recommended per radiology report. When asked she reports to be doing and feeling well. She reports compliance with 8 mg of Toviaz daily. She does continue with episodes of urinary frequency and feels oxybutynin was more helpful. However, discussed affects of oxybutynin given her age and BEERS criteria. Discuss trial of other medications however patient declines and does not feel urinary symptoms are bothersome. Discussed at length importance of managing diabetes for improvement in urinary symptoms as well as for overall health and well-being. She reports drinking a lot of water daily. Unable to obtain urine for urinalysis as patient unable to void. However, PVR 0 mL. When asked she denies urinary urgency, incontinence, nocturia, hematuria, dysuria, foul smelling urine, changes to urinary stream, flank pain, fever, and or chills. She is happy with her current voiding parameters on 8mg of Toviaz daily. [facility] Medical History Stenosis of left subclavian artery Multiple falls Macular degeneration Overactive bladder Chest tightness Abnormal nuclear stress test Cataract HAYDEE on CPAP Mild anemia Hypercholesterolemia Resting tremor Osteoarthritis Unsteady gait Vertigo Sleep apnea Diabetic retinopathy Hiatal hernia Depression COPD (chronic obstructive pulmonary disease) CKD (chronic kidney disease) Orthostatic hypotension NSTEMI (non-ST elevated myocardial infarction) Syncope HLD (hyperlipidemia) CAD (coronary artery disease) High cholesterol Diabetes Heart attack Stroke Surgical History Status post cardiac catheterization History of cataract extraction Hx of colonoscopy Hx of vaginal hysterectomy Stented coronary artery History of cardiac catheterization Family History Father CVD (cardiovascular disease) Mother Brain aneurysm Social History Household Members: Significant Other Housing: House Are you a primary pediatric care coordinator to a significant other at home: No Do you presently have visiting nurse or other home services: No Unable to assess alcohol history related to: Unknown Alcohol intake: never Patient Tobacco Use Status: Former Tobacco user Quit Date: 2013 Tobacco use type: Cigarette Cigarettes Per Day: 1.5 Years Smoked: 50 e-Cigarette/Vaping Use: Former Use Second Hand Smoke Exposure: No Advance Directives Date on File: 01/18/23 service: No Current occupational status: retired Review of Systems Eyes Reports as per [facility] ENT Reports no additional complaints Card Reports as per [facility] Resp Reports as per [facility] GI Reports no additional complaints Reports as per [facility] Musc Reports no additional complaints Neuro Reports as per [facility] Psych Reports no additional complaints Endo Reports as per [facility] Fahad/Lymph Reports no additional complaints Aller/Immun Reports no additional complaints Physical Exam Const General: cooperative, healthy appearing, comfortable, no acute distress, well developed, alert and awake Nutritional Appearance: overweight Orientation/consciousness: patient oriented x3 Limitations: ambulation with walker HEENT Head: Yes normal to inspection, Yes normocephalic and Yes atraumatic Ears: hearing grossly normal bilaterally Eyes General: appearance normal, both eyes and all related structures Conjunctivae: conjunctivae normal Neck Neck: Yes normal visual inspection and Yes trachea midline Chest Chest palpation & inspection: normal inspection of the chest Resp Effort & Inspection: normal respiratory effort and able to speak in complete sentences Cardio Jugular venous distension: no JVD GI Inspection: Yes normal to inspection Palpation (GI): Soft to palpation General: Yes no CVA tenderness Back/Spine/Pelvis Back: no CVA tenderness Skin General skin exam: no rashes or lesions noted Neuro General: patient oriented x3 Psych Appearance: grossly normal and well kempt Mental Status: mental status grossly normal Speech and movement: Normal speech and movement present, Clear speech present and Slowed movement present (Neuro) Affect: normal affect Attitude: cooperative Thought process: Normal thought process present Thought content: Normal thought content present Insight: Fair insight present (Psych) Judgement: Fair judgement present (Psych) Office Procedures Post Void Residual Post Residual Void Post Void Residual (PVR): 0 [id number]-[id number] Void Residual by ultrasound Results Reviewed Results Reviewed: Date of Service: 10/25/23 EXAMINATION: US KIDNEYS AND BLADDER FINDINGS: RIGHT KIDNEY: 10.3 x 4.0 x 4.8 cm (SAG x AP x TRV). The kidney is normal in size, contour, and echogenicity. Renal cortical thickness is normal. No calculi or focal parenchymal lesions. No hydronephrosis. LEFT KIDNEY: 10.0 x 4.6 x 4.6 cm (SAG x AP x TRV). The kidney is normal in size, contour, and echogenicity. Renal cortical thickness is normal. No renal calculi or hydronephrosis. Benign-appearing renal cyst measuring 1.1 cm. No follow up imaging is recommended. Punctate echogenic foci without shadowing, though some demonstrate twinkle artifact which may reflect nonobstructing stones or may reflect vascular reflectors. BLADDER: Well distended and normal. Bilateral ureteral jets are demonstrated. Prevoid bladder volume is 269.2 mL. Postvoid bladder volume is 58.6 mL. IMPRESSION: 1. Small postvoid bladder residual of 58.6 mL. 2. Punctate echogenic foci without shadowing in the right kidney, though some demonstrate twinkle artifact which may reflect nonobstructing stones or may reflect vascular reflectors. Assessment & Plan Assessment & Plan (1) Renal cyst: Code(s): N28.1 - Cyst of kidney, acquired (2) Overactive bladder: Code(s): N32.81 - Overactive bladder Plan Unable to obtain urine for urinalysis however PVR 0 mL. Recent retroperitoneal ultrasound results reviewed with the patient today; as noted above. Continue Toviaz 8 mg daily as discussed and prescribed. Patient denies any urological issues or concerns at this time. Discussed at length importance of managing diabetes for improvement in urinary symptoms as well as overall health and well-being. Discussed weight loss will reduce overactive bladder and stress incontinence symptoms. Discussed, educated, encouraged to continue drinking adequate amount of fluid daily. Patient currently denies any bothersome urinary issues or concerns. Renal ultrasound in 1 year Follow-up in 1 year with imaging and PVR to be completed prior; or sooner with any issues, concerns, and or questions Orders: Orders AMB Post Void Residual by ultrasound Today N39.8 - Other specified disorders of urinary system US renal BI 364 Days N20.0 - Calculus of kidney, N28.1 - Cyst of kidney, acquired Medications: Refilled Toviaz ER (fesoterodine) 8 mg PO DAILY 90 days 90 tabs 3RF NS Patient Instructions: The patient had an opportunity to ask questions regarding the treatment plan. All questions were answered. Physical exam, labs, and imaging were discussed and reviewed in detail. As well as risks, benefits, and discussion of treatment choices. No major barriers to understanding were identified. The patient expressed understanding and agreement with the above treatment plan. The patient was made aware they should contact our office by phone for worsening of their current condition, the appearance of new symptoms, or with any questions or concerns. Compliance is encouraged with any medications and follow up testing that is ordered. It is a privilege to be allowed the opportunity to participate in? your urological care.? Again, if you have any questions or concerns If you have any questions or concerns please do not hesitate to contact me. The office is [phone]. This note is constructed using voice recognition software. While every effort has been made to ensure accuracy olive knocker errors may have been included. Yours sincerely, TODD Porras-EDITA Coding Level of Care Code Est Pt Level 3 (33498) Diagnoses Renal cyst N28.1 Overactive bladder N32.81 CPT Codes Post Residual Void - PVR CPT Code: 43374-Mnru Void Residual by ultrasound ([id number])
== END 2023-11-07 13:55 | disposition home or self-care (01) ==
PROVIDERS: Visit Provider Nurse Practitioner Family
DX: N28.1 Cyst of kidney, acquired (principal); N32.81 Overactive bladder
CPT/HCPCS: 99213

== ENCOUNTER → 2023-11-07 12:47 | Outpatient (BNVA) | payer MEDICARE, MEDICAID, SELFPAY | PROVIDERS: Visit Provider Nurse Practitioner Family | DX: N28.1 Cyst of kidney, acquired (principal); N32.81 Overactive bladder | CPT/HCPCS: 51798; 99212 ==

== ENCOUNTER 2024-03-14 12:56 | Outpatient (AMB) | payer MEDICARE, MEDICAID, SELFPAY ==
--- NOTE | 2024-03-14 13:15 | MHC.OFFVIS ---
Vital Signs 03/14/24 13:16 Height 4 ft 11 in Weight 202 lb 13.204 oz BMI 41.0 BP 130/68 Blood Pressure Location Lt brachial Position Sitting Pulse 64 Intake Visit Reasons: 6 mth f/up Intake Note: 6 month follow-up with ekg feeling ok Home Health Billing Specialist Required: No Engine Repairer Service: Engine Repairer Service Present Accompanied by: Spouse Allergies oxycodone [OXYCODONE] Allergy (Mild, Verified 11/07/23 13:54) ITCHING, itchy adhesive tape Allergy (Verified 11/07/23 13:54) Unknown bee pollen [bee stings] Allergy (Verified 11/07/23 13:54) Swelling hydromorphone [From DILAUDID] Adverse Reaction (Mild, Verified 11/07/23 13:54) ITCHING Medication List - Last Reconciled 03/14/24 by Dioni Ngo MD albuterol sulfate 90 mcg/actuation 2 puffs inhalation Q6H PRN amlodipine 2.5 mg PO DAILY atorvastatin 80 mg PO DAILY docusate sodium 100 mg PO DAILY PRN ezetimibe 10 mg PO DAILY fluoxetine 20 mg PO DAILY fluticasone propionate 50 mcg/actuation 1 spray intranasal DAILY insulin glargine 35 units (0.35 mL) subcut BEDTIME loratadine 10 mg PO DAILY losartan 100 mg PO DAILY metformin 500 mg PO BIDWM metoprolol tartrate 25 mg PO BID mirabegron ER (Myrbetriq) 25 mg PO DAILY 30 days nitroglycerin 0.4 mg sublingual Q5M PRN pen needle, diabetic As directed HPI Comments Details: Lilli comes for follow-up. She has not had any exertional chest pain syndrome. However she says more recently she has been getting trouble with left calf discomfort when she walks a long distance. This is now consistently present and getting worse compared to in the past where she would be able to walk longer distance. She has not had any anginal symptoms. Takes all her medications. She has not had any lightheadedness or low blood pressure. Blood pressure running between 130-140 systolic. Denies any syncopal episodes. No prolonged palpitations. No lightheadedness, syncope. [facility] Medical History Stenosis of left subclavian artery Multiple falls Macular degeneration Overactive bladder Chest tightness Abnormal nuclear stress test Cataract HAYDEE on CPAP Mild anemia Hypercholesterolemia Resting tremor Osteoarthritis Unsteady gait Vertigo Sleep apnea Diabetic retinopathy Hiatal hernia Depression COPD (chronic obstructive pulmonary disease) CKD (chronic kidney disease) Orthostatic hypotension NSTEMI (non-ST elevated myocardial infarction) Syncope HLD (hyperlipidemia) CAD (coronary artery disease) High cholesterol Diabetes Heart attack Stroke Surgical History Status post cardiac catheterization History of cataract extraction Hx of colonoscopy Hx of vaginal hysterectomy Stented coronary artery History of cardiac catheterization Family History Father CVD (cardiovascular disease) Mother Brain aneurysm Social History Household Members: Significant Other Housing: House Are you a primary child daycare worker to a significant other at home: No Do you presently have visiting nurse or other home services: No Unable to assess alcohol history related to: Unknown Alcohol intake: never Patient Tobacco Use Status: Former Tobacco user Quit Date: 2013 Tobacco use type: Cigarette Cigarettes Per Day: 1.5 Years Smoked: 50 e-Cigarette/Vaping Use: Former Use Second Hand Smoke Exposure: No Advance Directives Date on File: 01/18/23 service: No Current occupational status: retired Review of Systems Const Denies chills, Denies fatigue, Denies fever(s), Denies frequent falls, Denies weakness, Denies weight gain and Denies weight loss ENT Denies dizziness Card Denies chest pain, Denies leg edema, Denies lightheadedness, Denies palpitations, Denies dyspnea, Denies dyspnea on exertion, Denies orthopnea and Denies other (loss of consciousness) Resp Denies cough, Denies dyspnea and Denies dyspnea on exertion GI Denies hematochezia and Denies change in stool character Musc Denies abnormal gait, Denies muscle weakness, Denies numbness, Denies radiating pain into limb and Denies tingling Neuro Denies abnormal gait, Denies dizziness, Denies frequent falls, Denies numbness, Denies tingling and Denies weakness Endo Denies fatigue and Denies palpitations Physical Exam Vital Signs: Last Vital Signs Pulse 64 03/14/24 13:16 BP 130/68 03/14/24 13:16 BMI result Body Mass Index 41.0 Const General: cooperative, comfortable, no acute distress, alert, awake and anxious Nutritional Appearance: obese Orientation/consciousness: patient oriented x3 Limitations: ambulation with walker Neck Neck: Yes trachea midline, Yes supple and Yes no JVD Resp Effort & Inspection: normal respiratory effort Auscultation: clear to auscultation bilaterally Cardio Jugular venous distension: no JVD Palpation: normal PMI Rate: regular rate Rhythm: regular rhythm Heart sounds: S1 normal heart sound present and S2 normal heart sound present GI Auscultation: normal bowel sounds Skin General skin exam: no rashes or lesions noted and ecchymosis Neuro General: patient oriented x3 and no focal motor deficits Extrem General: Yes no clubbing, cyanosis or edema Psych Appearance: grossly normal Office Procedures EKG Details: EKG shows normal sinus rhythm with PACs with nonspecific ST T wave changes [id number], Complete Assessment & Plan Assessment & Plan (1) CAD (coronary artery disease): Code(s): I25.10 - Atherosclerotic heart disease of tetlin coronary artery without angina pectoris Category: Medical Plan: CAD with diffuse multivessel PCIs in the past with diffuse disease. Currently having no symptoms of angina. Continue low-dose aspirin therapy for life. There is no indication for dual antiplatelet therapy. Continue high-intensity statin therapy along with ezetimibe therapy to target goal LDL as currently achieved to closer to 60 mg/dL. Continue aggressive management diabetes goal hemoglobin A1c less than 7%. Aggressive control blood pressure although permissive hypertension, see below may be required. Encouraged to increase activity level as tolerated. (2) Claudication: Code(s): I73.9 - Peripheral vascular disease, unspecified Category: Medical Plan: Patient's symptoms highly suggestive of peripheral vascular disease and claudication. Will suggest a lower extremity duplex to further assess for the same. Treatment based on the findings. Adequate medical therapy along with rehab and/or vascular intervention. This was discussed with her. Continue aggressive vascular risk stratification as above. (3) Orthostatic hypotension: Code(s): I95.1 - Orthostatic hypotension Category: Medical Plan: Orthostatic hypertension which has remained controlled. Permissive hypertension up to systolic 140 is okay in her case. Continue adequate oral hydration. Orthostatic precautions were discussed. Continue current therapy. Will follow up in the clinic in 6 months time, sooner p.r.n.. Thank you for allowing me to partake in her care Orders: Orders US arterial duplex LE BI Today I25.10 - Atherosclerotic heart disease of tetlin coronary artery without angina pectoris, I73.9 - Peripheral vascular disease, unspecified Coding Level of Care Code Est Pt Level 4 (86169) Diagnoses CAD (coronary artery disease) I25.10 Claudication I73.9 Orthostatic hypotension I95.1 CPT Codes EKG - CPT: 99321-[id number], Complete ([id number])
[2024-03-14 13:16] VITALS: BP 130/68; PULSE 64; BMI 41.0
== END 2024-03-14 13:46 | disposition home or self-care (01) ==
PROVIDERS: PCP Internal Medicine; Visit Provider Internal Medicine Cardiovascular Disease
DX: I25.10 Atherosclerotic heart disease of native coronary artery without angina pectoris (principal); I73.9 Peripheral vascular disease, unspecified; I95.1 Orthostatic hypotension
CPT/HCPCS: 93010; 99214

== ENCOUNTER → 2024-03-14 12:56 | Outpatient (BNVA) | payer MEDICARE, MEDICAID, SELFPAY | PROVIDERS: PCP Internal Medicine; Visit Provider Internal Medicine Cardiovascular Disease | DX: I25.10 Atherosclerotic heart disease of native coronary artery without angina pectoris (principal); I73.9 Peripheral vascular disease, unspecified; I95.1 Orthostatic hypotension | CPT/HCPCS: 93005; 99212 ==

== ENCOUNTER 2024-03-26 12:47 | Outpatient (REF) | payer MEDICARE, MEDICAID, SELFPAY ==
--- NOTE | ~2024-03-26 | US_ITS ---
EXAMINATION: Noninvasive assessment of the bilateral lower extremities with ARTERIAL DUPLEX and ANKLE BRACHIAL INDICES (ABIs). CLINICAL INFORMATION: Peripheral vascular disease TECHNIQUE: Duplex Doppler techniques with waveform analysis and measurement of velocities in the bilateral common femoral, profunda femoris, superficial femoral, popliteal and tibial arteries were performed. COMPARISON: None FINDINGS: DIRECT DUPLEX DOPPLER FINDINGS: RIGHT LEG: Common femoral artery: 191 cm/s, phasicity: Triphasic. Mild calcified plaque Profunda femoris artery: 133 cm/s, phasicity: Biphasic Superficial femoral artery (proximal): 87.8 cm/s, phasicity: Monophasic. Mild calcified plaque Superficial femoral artery (mid): 85.5 cm/s, phasicity: Monophasic. Mild calcified plaque Superficial femoral artery (distal): 227 cm/s, phasicity: Monophasic. Moderate calcified plaque Popliteal artery: 62.4 cm/s, phasicity: Monophasic with parvus tardus Posterior tibial artery: 42 cm/s, phasicity: Biphasic with parvus tardus Peroneal artery: Not visualized Anterior tibial artery: 37.1 cm/s, phasicity: Monophasic Dorsalis pedis artery: 60.9 cm/s, phasicity:Monophasic LEFT LEG: Common femoral artery: 151 cm/s, phasicity: Biphasic Profunda femoris artery: 120 cm/s, phasicity: Biphasic Superficial femoral artery (proximal): 308 cm/s, phasicity: Monophasic. Moderate calcified plaque Superficial femoral artery (mid): 109 cm/s, phasicity: Monophasic. Moderate calcified plaque Superficial femoral artery (distal): 67.0 cm/s, phasicity: Monophasic parvus tardus Popliteal artery: 177 cm/s, phasicity: Monophasic. Mild calcified plaque Posterior tibial artery: 25.6 cm/s, phasicity: Monophasic with parvus tardus Peroneal artery: Occluded Anterior tibial artery: 53.1 cm/s, phasicity: Monophasic with parvus tardus Dorsalis pedis artery: 21.6 cm/s, phasicity: Monophasic US/US arterial duplex LE BI IMPRESSION: Right leg: Calcified plaque throughout the superficial femoral artery with elevated velocity in the distal segment consistent with moderate stenosis. Left leg: Calcified plaque throughout the superficial femoral artery with elevated velocity in the proximal segment consistent with moderate to severe stenosis relatively elevated velocities also seen in the mid superficial femoral artery and popliteal artery consistent with moderate stenoses
== END 2024-03-26 12:48 | disposition home or self-care (01) ==
LOC: HO.US 12:47
PROVIDERS: PCP Internal Medicine; Visit Provider Internal Medicine Cardiovascular Disease
DX: I25.10 Atherosclerotic heart disease of native coronary artery without angina pectoris (principal); I73.9 Peripheral vascular disease, unspecified
CPT/HCPCS: 93925

== ENCOUNTER 2024-03-30 17:31 | Emergency (ER) | payer MEDICARE, MEDICAID, SELFPAY ==
--- NOTE | ~2024-03-30 | CT_ITS ---
EXAMINATION: CT head/brain wo IV con CT facial bones wo IV con CT cervical spine wo IV con INDICATION INFORMATION: Trauma, nasal trauma, right neck pain COMPARISON: CT 01/17/2023 TECHNIQUE: Multidetector CT acquisitions of the head, maxillofacial region, and cervical spine were obtained without IV contrast. Multiplanar reformats were acquired and utilized for image interpretation. This CT examination was performed using dose optimization techniques as appropriate, variously including the following: * Automated exposure control * Adjustment of mA and/or kV according to patient size (this includes techniques or standardized protocols for targeted exams where dose is matched to indication/reason for exam; i.e. extremities or head) Use of iterative reconstruction technique DLP: 1803 mGy-cm FINDINGS: HEAD: There is no evidence of acute intracranial hemorrhage or territorial infarction. Chronic infarct in the superior left cerebellum. No abnormal mass-effect or midline shift is seen. Mazariegos to white matter differentiation is well preserved. No extra-axial fluid collections are identified. No hydrocephalus. Proportional prominence of the ventricles and sulcal spaces is consistent with mild volume loss. Patchy periventricular and deep white matter hypoattenuation is consistent with mild small vessel ischemic changes. Extensive bilateral carotid calcifications. No acute soft tissue abnormality. No acute calvarial fracture. Mild hyperostosis frontalis interna. The mastoid air cells are well aerated. Small volume cerumen in the right external artery canal. MAXILLOFACIAL: Mildly displaced acute nasal bone fractures with associated soft tissue swelling of the nose. The mandible, maxilla, pterygoid plates, zygomatic arches, paranasal sinus bartholomew, and bony orbits are intact. Redemonstration of radiopaque density along the left para midline frontal scalp. Chronically opacified left sphenoid sinus with small central calcification which could represent mycetoma, unchanged in appearance dating back to 2019. The frontal, maxillary, ethmoid, and sphenoid sinuses are well aerated. The uncinate process is normal bilaterally. The infundibula and middle meati are patent. There is a leftward nasal septal deviation. The mandibular heads are seated in the condylar fossa. No temporomandibular degenerative change. Bilateral lens extraction. The globes are intact, and there are no suspicious findings to suggest retrobulbar hemorrhage. CERVICAL SPINE: There is loss of the normal cervical lordosis without acute spondylolisthesis. There is anatomic alignment of the vertebral bodies and posterior elements. Vertebral body heights and intervertebral disc spaces are maintained. No acute fracture. Fusion of the C2 on C3 left posterior elements. Left-sided the 3 to C6 facet arthropathy. Mild anterolisthesis of C3 on C4, as before. The atlantooccipital and atlantoaxial articulations are normal. Mild incidental spondylosis. The bony canal and neural foramina are well maintained. There is no prevertebral soft tissue swelling. Extensive emphysema visualized lung apices. Multinodular and heterogeneous thyroid, similar to 01/17/2023. No cervical lymphadenopathy. No significant soft tissue abnormality within the neck. CT/CT cervical spine wo IV con IMPRESSION: 1. No acute intracranial abnormality. 2. Mildly displaced acute nasal bone fractures with associated soft tissue swelling of the nose. 3. No acute osseous abnormality within the cervical spine.
--- NOTE | 2024-03-30 18:12 | ED_ITS ---
HPI - Wound/Laceration General Chief Complaint: Fall Stated Complaint: fell laceration to nose Time Seen by Provider: 03/30/24 22:00 Source: patient, family (Patient's daughter), RN notes reviewed and old records reviewed Mode of arrival: ambulatory Limitations: no limitations History of Present Illness HPI narrative: 78-year-old female with past medical history significant for COPD, diabetes, coronary artery disease, hyperlipidemia presents for evaluation after a fall. Patient reports that she had just gotten out of the shower around 4:30 p.m. today about an hour prior to arrival She reports that she sat on the toilet as she usually does to start getting dressed She reports that after putting her underwear on when she was trying to put her pants on ?my toe got caught and when I was trying to fix it I still off the toilet. ? She hit her nose on the floor Denies any loss of consciousness She complains of 8/10 facial pain She has on a baby aspirin but no anticoagulation Related Data Home Medications ?Medication ?Instructions ?Recorded ?Confirmed atorvastatin 80 mg tablet 80 mg PO DAILY 12/08/20 03/14/24 ezetimibe 10 mg tablet 10 mg PO DAILY 12/08/20 03/14/24 fluoxetine 20 mg capsule 20 mg PO DAILY 12/08/20 03/14/24 losartan 100 mg tablet 100 mg PO DAILY 12/08/20 03/14/24 metformin 500 mg tablet 500 mg PO BIDWM 12/08/20 03/14/24 metoprolol tartrate 25 mg tablet 25 mg PO BID 12/08/20 03/14/24 pen needle, diabetic 32 gauge x #50 ea 05/25/21 11/07/23 albuterol sulfate 90 mcg/actuation 2 puff inhalation Q6H PRN wheezing 01/10/23 03/14/24 aerosol inhaler Previous Rx's ?Medication ?Instructions ?Recorded nitroglycerin 0.4 mg sublingual 0.4 mg sublingual Q5M PRN chest 03/10/22 tablet pain #20 tabs docusate sodium 100 mg capsule 100 mg PO DAILY PRN Constipation 01/15/23 #30 caps fluticasone propionate 50 1 spray intranasal DAILY #16 grams 01/15/23 mcg/actuation nasal spray,suspension loratadine 10 mg tablet 10 mg PO DAILY #5 tabs 01/15/23 insulin glargine 100 unit/mL (3 35 unit (0.35 mL) subcut BEDTIME 01/20/23 mL) subcutaneous pen #15 mL amlodipine 2.5 mg tablet 2.5 mg PO DAILY #90 tabs 11/21/23 Myrbetriq 25 mg tablet,extended 25 mg PO DAILY 30 days #30 tabs 03/26/24 release (mirabegron) amoxicillin 875 mg-potassium 1 tab PO BID #14 tabs 03/30/24 clavulanate 125 mg tablet Allergies Allergy/AdvReac Type Severity Reaction Status Date / Time adhesive tape Allergy Mild Unknown Verified 03/30/24 18:18 bee pollen [bee stings] Allergy Mild Swelling Verified 03/30/24 18:18 oxycodone [OXYCODONE] Allergy Mild ITCHING, Verified 03/30/24 18:18 itchy hydromorphone [From DILAUDID] AdvReac Mild ITCHING Verified 03/30/24 18:18 Review of Systems Constitutional: Constitutional: Denies chills, Denies frequent falls and Reports headache(s) Eyes: Eyes: Denies blurry vision, Denies dry eyes and Denies floaters ENT: Reports headache(s), Reports epistaxis, Reports nasal trauma and Reports nose pain Cardiovascular: Cardiovascular: Denies chest pain, Denies syncope and Denies dyspnea Respiratory: Respiratory: Denies cough and Denies dyspnea Neurologic: Denies syncope, Denies frequent falls and Reports headache(s) PMFSH Past Medical History Medical History Stenosis of left subclavian artery Multiple falls Macular degeneration Overactive bladder Chest tightness Abnormal nuclear stress test Cataract HAYDEE on CPAP Mild anemia Hypercholesterolemia Resting tremor Osteoarthritis Unsteady gait Vertigo Sleep apnea Diabetic retinopathy Hiatal hernia Depression COPD (chronic obstructive pulmonary disease) CKD (chronic kidney disease) Orthostatic hypotension NSTEMI (non-ST elevated myocardial infarction) Syncope HLD (hyperlipidemia) CAD (coronary artery disease) High cholesterol Diabetes Heart attack Stroke Surgical History Status post cardiac catheterization History of cataract extraction Hx of colonoscopy Hx of vaginal hysterectomy Stented coronary artery History of cardiac catheterization Family History Family History Father CVD (cardiovascular disease) Mother Brain aneurysm Social History Social History Household Members: Significant Other Housing: House Are you a primary primary care physician to a significant other at home: No Do you presently have visiting nurse or other home services: No Unable to assess alcohol history related to: Unknown Alcohol intake: never Patient Tobacco Use Status: Former Tobacco user Quit Date: 2013 Tobacco use type: Cigarette Cigarettes Per Day: 1.5 Years Smoked: 50 e-Cigarette/Vaping Use: Former Use Second Hand Smoke Exposure: No Advance Directives: Yes Advance Directives on File: Yes Advance Directives Date on File: 01/18/23 Do you have a plan to hurt others: No Plan service: No Current occupational status: retired Physical Exam Vital Signs: Vital Signs: Last Vital Signs Temp 98.2 F 03/30/24 23:03 Pulse 69 03/30/24 23:03 Resp 20 03/30/24 23:03 BP 191/63 H 03/30/24 23:03 Pulse Ox 97 03/30/24 23:03 O2 Del Method Room Air 03/30/24 23:03 BMI result Body Mass Index 44.4 Const: General: healthy appearing, comfortable, no acute distress, alert and awake Nutritional Appearance: well nourished Orientation/consciousness: patient oriented x3 HEENT: Other: Patient has a 1 cm linear, partial-thickness laceration to the tip of the nose. No active bleeding. Patient has tenderness of the bridge of the nose with significant edema and ecchymosis. There is some laxity over the nasal bridge. There is some dried blood within the nares, no septal hematoma Head: No normocephalic and No atraumatic General nose exam: Normal septum present Face and sinus: Yes laceration Throat: Yes posterior oropharynx normal Eyes: Eyelids: Yes eyelids normal Conjunctivae: conjunctivae normal Sclerae: sclerae normal Corneas: corneas normal Pupils: Equal, round and reactive pupils present EOM: EOMs intact bilaterally Neck: Neck: Yes full ROM Resp: Effort & Inspection: normal respiratory effort, able to speak in complete sentences and not labored GI: Inspection: No distended Palpation (GI): Soft to palpation, not firm, nontender, no guarding and not rigid Skin: General skin exam: elasticity normal Neuro: General: patient oriented x3 Cranial nerves: Yes CN's II-XII intact bilaterally, Yes Equal, round and reactive pupils present and Yes Bilaterally intact EOM present Cognition (Neuro): normal cognition Extrem: Other: Moving all extremities well without deformity Course Course Course Narrative: This is a rapid medical exam completed by Shanna GRAIN OPERATIONS MANAGER: Additional HPI, ROS, PE not included below will be deferred to primary provider. Fell off the toilet while getting dressed landing on her nose. Reports that she has a bleeding laceration at the bridge of the nose with minor epistaxis, nasal congestion, ecchymosis, and swelling of the nose On Plavix Medications Administered Discontinued Medications Generic Name Dose Route Start Last Admin Trade Name Freq PRN Reason Stop Dose Admin Amoxicillin/Clavulanate Potassium 875 mg 03/30/24 22:21 03/30/24 22:56 Amoxicillin/Potassium Clav 875 Mg Tablet PO 03/30/24 22:22 875 mg ONCE ONE Administration Diphtheria/Tetanus/Acell Pertussis 0.5 ml 03/30/24 22:28 03/30/24 22:56 Diphth,Pertus(Acell),Tet Adult 0.5 Ml Syringe IM 03/30/24 22:29 0.5 ml .ONCE ONE Administration Ketorolac Tromethamine 30 mg 03/30/24 22:21 03/30/24 22:55 Ketorolac Tromethamine 30 Mg/Ml Vial IM 03/30/24 22:22 30 mg ONCE ONE Administration Medical Decision Making Medical Decision Making MDM Narrative: Patient had a nonsyncopal fall striking her head/face. There was no loss of consciousness. She has a nasal fracture clinically. This is confirmed on CT. She has a small laceration that was treated with Exofin. Her tetanus was updated. The wound was cleaned. The patient be discharged on Augmentin. She will be given discharge with follow-up with Dr. Bowles for ENT. Differential Diagnosis Differential Diagnoses: The differential diagnosis associated with the presentation includes Nasal fracture Fall Laceration Contusion Intracranial hemorrhage Independent Interpretation I performed an independent interpretation of an: CT Scan Interpretation: Agree with Radiology interpretation, nasal bone fracture noted, no intracranial hemorrhage Radiology Impression Discussion of test interpretation with radiology: I have reviewed the radiologist's reading. Radiologist Impression: MPRESSION: 1. No acute intracranial abnormality. 2. Mildly displaced acute nasal bone fractures with associated soft tissue swelling of the nose. 3. No acute osseous abnormality within the cervical spine. Discharge Plan Discharge Clinical Impression: Fracture of nasal bone, Laceration of nose Patient Disposition: Home, Self-Care Instructions: Nasal Fracture (ED), Laceration (ED) Additional Instructions: You have a fracture of your nasal bone Follow-up with Dr. Davila Take Augmentin twice daily for 7 days Your tetanus was updated today Your wound was closed with Exofin skin glue This should dissolve on its own in about 1 week Use ibuprofen/Tylenol as needed for headaches I recommend avoiding blowing your nose for at least 1 week Prescriptions: New amoxicillin-pot clavulanate 875-125 mg tablet 1 tab PO BID Qty: 14 0RF No Action nitroglycerin 0.4 mg tablet, sublingual 0.4 mg sublingual Q5M PRN (Reason: chest pain) Qty: 20 1RF Rx Instructions: do not exceed 3 doses per episode amlodipine 2.5 mg tablet 2.5 mg PO DAILY Qty: 90 3RF Myrbetriq 25 mg tablet extended release 24 hr 25 mg PO DAILY 30 Days Qty: 30 1RF insulin glargine 100 unit/mL (3 mL) insulin pen 35 unit subcut BEDTIME Qty: 15 0RF albuterol sulfate 90 mcg/actuation HFA aerosol inhaler 2 puff INHALATION Q6H PRN (Reason: wheezing) docusate sodium 100 mg Capsule 100 mg PO DAILY PRN (Reason: Constipation) Qty: 30 0RF fluticasone propionate 50 mcg/actuation [place],Suspension 1 spray intranasal DAILY Qty: 16 0RF loratadine 10 mg Tablet 10 mg PO DAILY Qty: 5 0RF fluoxetine 20 mg capsule 20 mg PO DAILY losartan 100 mg tablet 100 mg PO DAILY metformin 500 mg tablet 500 mg PO BIDWM metoprolol tartrate 25 mg tablet 25 mg PO BID atorvastatin 80 mg tablet 80 mg PO DAILY ezetimibe 10 mg tablet 10 mg PO DAILY (DME) pen needle, diabetic 32 gauge x 32 needle See Rx Instructions .ROUTE DAILY Qty: 50 Rx Instructions: As directed Referrals: Erik Bowles [Physician] - (Nasal fracture) Interventions: ED Discharge Assessment Last Done: 03/30/24 23:03 Discharge Date/Time: 03/30/24 23:06 Print Language: Cambodian
[2024-03-30 18:14] VITALS: BP 187/68; PULSE 70; RESP 18; TEMP 36.4; O2SAT 96; BMI 44.4
--- NOTE | 2024-03-30 20:26 | PC.NURSE ---
pt reported to this RN that they are no longer taking Plavix. They have not taken it for 6 months. Pt stated that during triage they said they were taking plavix but that was a mistake
--- OUTSIDE RECORDS SUMMARY | 2024-03-30 20:49 | XMS_ITS | Continuity of Care Document ---
Author Organization [facility] Chaim Maynor lt Address [address] [place] [address]- Care Team Providers Care Vest Presser Name Role Phone Columba WATSON, Nahid Washington Primary Care Physician Encounter [facility] Date(s): 01/29/24 - 02/28/24 [facility] Mika Rucker Adult [address] [place] [address]- Allergies, Adverse Reactions, Alerts Substance Reaction Severity Status Adhesive Bandage Active Bee Stings SWELLING AT SITE ONLY Active Percocet Active Immunizations Given and Recorded Vaccine Date Status Refusal Reason influenza virus vaccine, inactivated 1 09/01/23 Gi aaron influenza virus vaccine, inactivated 2 08/25/22 Gi aaron influenza virus vaccine, inactivated 10/01/20 Give n influenza virus vaccine, inactivated 08/27/19 Luis rded influenza virus vaccine, inactivated 3 08/21/17 Re corded influenza virus vaccine, inactivated 09/09/16 Give n influenza virus vaccine, inactivated 4, 5 09/12/15 Recorded influenza virus vaccine, inactivated 10/07/14 Give n [id number] 12y+ bivalent booster vax 6 08/25/22 Given SARS-CoV-2 (COVID-19) mRNA BNT-162b2 vac 09/29/21 Recorded SARS-CoV-2 (COVID-19) mRNA BNT-162b2 vac 01/19/21 Recorded SARS-CoV-2 (COVID-19) mRNA BNT-162b2 vac 12/28/20 Recorded Zoster Vaccine Live 04/03/19 Recorded Zoster Vaccine Live 7 07/21/17 Recorded pneumococcal 23-valent vaccine 03/22/16 Given tetanus/diphtheria/pertussis, acel(Tdap) 03/10/15 Given pneumococcal 13-valent vaccine 03/10/15 Given tetanus-diphtheria toxoids (Td) 05/12/12 Recorded 1Result Comment: [facility]: [id number] 2Result Comment: FLU HD [facility]# [id number] 3Result Comment: [10/19/2017] pt had done @ [facility] high dose 4Location History: [facility] 5Result Comment: [09/15/2015] HIGH DOSE 6Result Comment: [facility] Bivalent- [facility]# [id number] 7Result Comment: [07/28/2017] AT [facility] Medications amLODIPine 2.5 mg oral tablet 2.5 mg, 1, tablet, By Mouth, Daily, # 90 tablet, Refills 1, Tot. Refills 1, Maintenance, 09/01/23 14:34:00 EDT, Route to Pharmacy Electronically, [id number], Partial fill upon patient request if the prescription is for a schedule II opioid... Start Date: 09/01/23 Status: Ordered aspirin 81 mg oral tablet, chewable 81 mg, 1, tablet, By Mouth, Daily, # 30 tablet, Refills 1, Tot. Refills 1, Maintenance, 11/02/19 14:07:39 EST, Route to Pharmacy Electronically, [id number], 149.86, cm, 11/02/19 12:12:42 EST, Height, 90.2, kg, 10/29/19 15:57:27 EST, Dry Weight Start Date: 11/02/19 Stop Date: 01/01/20 Status: Ordered atorvastatin 80 mg oral tablet 1 tablet, By Mouth, Daily, # 90 tablet, 1 Refills, Maintenance, 01/31/24 9:12:00 EDT, [facility], 152, cm, 09/01/23 14:03:00 EDT, Height, 94.6, kg, 03/22/22 15:16:00 EDT, Dry Weight Start Date: 01/31/24 Status: Ordered Basaglar KwikPen 100 units/mL subcutaneous solution = 30 units, Subcutaneous Infusion, Daily at bedtime, # 15 mL, 5 Refills, Maintenance, 11/29/23 15:47:00 EST, [facility], 152, cm, 09/01/23 14:03:00 EDT, Height, 94.6, kg, 03/22/22 15:16:00 EDT, Dry Weight Start Date: 11/29/23 Stop Date: 05/27/24 Status: Ordered clopidogrel 75 mg oral tablet 75 mg, 1, tablet, By Mouth, Daily, # 90 tablet, Refills 4, Tot. Refills 4, Maintenance, 03/23/22 8:44:00 EDT, Route to Pharmacy Electronically, [facility], Partial fill upon patient request if the prescription is for a schedule II opioid... Start Date: 03/23/22 Stop Date: 06/16/23 Status: Ordered CPAP Machine See Instructions, # 1 each, Maintenance, AutoCPAP 10-14 with a heated humidifier. Recommend ordering a machine with compliance data capabilities and following residual AHI. Dx: HAYDEE Lifetime, 178:51:14, Compound Start Date: 10/11/17 Status: Ordered CPAP Equipment See Instructions, # 1 each, Refills 11, Tot. Refills 11, Maintenance, Dx: HAYDEE Headgear, tubing, water chamber, filter, heated humidifier., 10/11/17 9:18:40, Compound Start Date: 10/11/17 Status: Ordered FLUoxetine 20 mg oral capsule 1, capsule, By Mouth, Daily, # 90 capsule, Refills 0, Tot. Refills 0, Maintenance, 02/09/24 12:58:00 EDT, Route to Pharmacy Electronically, [facility], 152, cm, 09/01/23 14:03:00 EDT, Height, 94.6, kg, 03/22/22 15:16:00 EDT, Dry Weight Start Date: 02/09/24 Status: Ordered losartan 100 mg oral tablet 1 tablet, By Mouth, Daily, # 90 tablet, 0 Refills, 02/09/24 12:58:00 EDT, [facility], 152, cm, 09/01/23 14:03:00 EDT, Height, 94.6, kg, 03/22/22 15:16:00 EDT, Dry Weight Start Date: 02/09/24 Status: Ordered metFORMIN 500 mg oral tablet 1 tablet = 500 mg, By Mouth, 2 times a day, # 180 tablet, 0 Refills, Maintenance, 02/09/24 12:58:00EDT, Tablet, [facility], 152, cm, 09/01/23 14:03:00 EDT, Height, 94.6, kg, 03/22/22 15:16:00 EDT, Dry Weight Start Date: 02/09/24 Status: Ordered metoprolol 25 mg oral tablet 25 mg, 1, tablet, By Mouth, 2 times a day, # 180 tablet, Refills 0, Tot. Refills 0, Maintenance, 02/09/24 12:58:00 EDT, Route to Pharmacy Electronically, [facility], 152, cm, 09/01/23 14:03:00 EDT, Height, 94.6, kg, 03/22/22 15:16:00 EDT,... Start Date: 02/09/24 Status: Ordered Nebulizer/Compressor See Instructions, # 1 each, Maintenance, Use up to 4x daily NEEDED - do not use in combination with inhaler, 10/12/20 13:19:00 EST, Supply Start Date: 10/12/20 Status: Ordered PEN NEEDLES [id number] PEN NEEDLES [id number], See Instructions, # 100 each, Refills 3, Tot. Refills 3, Maintenance, USE DIRECTED WITH INSULIN DAILY FAX [phone], 01/31/24 9:12:00 EDT, Compound, 152, cm, 09/01/23 14:03:00 EDT, Height, 94.6, kg, 03/22/22 15:16:00 EDT, Dry W... Start Date: 01/31/24 Status: Ordered trospium 60 mg oral capsule, extended release 1 capsule = 60 mg, By Mouth, Daily in AM, # 30 capsule, 0 Refills, Maintenance, 06/15/21 15:25:00 EDT, CR Capsule, Partial fill upon patient request if the prescription is for a schedule II opioid drug. Start Date: 06/15/21 Status: Ordered Ventolin HFA 108 mcg/inh inhalation aerosol with adapter 2 puffs, Inhalation, Every 6 hours, # 8.5 Gm, 2 Refills, Maintenance, 05/29/23 14:03:00 EDT, [id number], Partial fill upon patient request if the prescription is for a schedule II opioid drug., 152, cm, 02/24/23 13:26:00 EDT, Height, 94.6,... Start Date: 05/29/23 Status: Ordered Wheeled walker with seat Wheeled walker with seat, See Instructions, # 1 each, Refills 0, Tot. Refills 0, Maintenance, DX: Unsteady balance, 07/16/15 13:49:32, Compound Start Date: 07/16/15 Status: Ordered Zetia 10 mg oral tablet 1 tablet = 10 mg, By Mouth, Daily, TO BE TAKEN IN ADDITION TO LIPITOR FAX [phone], # 90 tablet, 1 Refills, Maintenance, 12/21/23 11:40:00 EST, Tablet, [facility], 152, cm, 09/01/23 14:03:00 EDT, Height, 94.6, kg, 03/22/22 15:16:00 EDT... Start Date: 12/21/23 Status: Ordered Problem List Condition Confirmation Course Effective Dates Status Health Status Informant Mild anemia Confirmed Active Autonomic neuropathy Confirmed Active Benign cyst of breast 1 Confirmed Active Cataracts, bilateral Confirmed Active Cholelithiasis Confirmed Active Cataract Confirmed Active CKD (chronic kidney disease) Confirmed Active COPD (chronic obstructive pulmonary disease) Confirmed Active Closed fracture of left proximal humerus Confirmed Active Diabetic retinopathy Confirmed Active Diverticulosis 2 Confirmed Active 2-vessel coronary artery disease Confirmed Active Gallstones 3 Confirmed Active H/O vaginal hysterectomy Confirmed Active Internal and external hemorrhoids without complication 4 Confirmed Active Hiatal hernia 5 Confirmed Active History of cerebrovascular accident Confirmed Active History of colonoscopy 6 Confirmed Active History of non-ST elevation myocardial infarction (NSTEMI) Confirmed Active Hypertension Confirmed Active Urinary frequency Confirmed Active 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 4colo 2014 5EGD 2014 6colo 2014 7Bilateral Knees and Back Social History Social History Type Response Smoking Status Former smoker; Tobac co user in household: No; Other: Quit this June 2015; entered on: 08/17/16 Sex Patient Care team information Care Team Personnel Name: Catalino Hagen RN Position: [facility] ED RN W/OE and Tasks Member Role: Primary Care Nurse Name: Kathleen Soliman RN Position: [facility] RN Member Role: Primary Care Nurse Name: Nahid Waterman MD Position: [facility] Physician - Primary Care Member Role: PCP Address: Address: [address] [place] [id number]- Name: Margoth Jeffers RN Position: [facility] SN RN Member Role: Primary Care Nurse Name: Moraima Krause RN Position: [facility] RN Member Role: Primary Care Nurse Name: Zeynep Barrera RN Position: [facility] Hospital Junior Web Developer Member Role: Primary Care Nurse Name: Karla Pacheco Position: [facility] Outreach Member Role: Lifetime Consulting Physician Name: Mei Soria RN Position: [facility] RN Member Role: Primary Care Nurse Name: Denisse Simms RN Position: [facility] RN Member Role: Primary Care Nurse Care Team Related Persons Name: ROBERT SEVILLA Address: home SAME Name: VICKIE ATKINSON Address: home [address] [place] [id number]
--- OUTSIDE RECORDS SUMMARY | 2024-03-30 20:50 | XMS_ITS | Continuity of Care Document ---
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 Name Role Phone Columba WATSON, Nahid Washington Primary Care Physician [place] [facility] [place]23 - 01/20/24 [facility] Mika Rucker Adult [address] [place] [address]- Allergies, Adverse Reactions, Alerts Substance Reaction Severity [...] influenza virus vaccine, inactivated 10/07/14 Give n [id number] 12y+ bivalent booster vax 6 08/25/22 Given SARS-CoV-2 (COVID-19) mRNA BNT-162b2 vac 09/29/21 Recorded SARS-CoV-2 (COVID-19) mRNA BNT-162b2 vac 01/19/21 Recorded SARS-CoV-2 (COVID-19) mRNA BNT-162b2 vac 12/28/20 Recorded Zoster Vaccine Live 04/03/19 Recorded Zoster Vaccine Live 7 07/21/17 Recorded pneumococcal 23-valent vaccine 03/22/16 Given tetanus/diphtheria/pertussis, acel(Tdap) 03/10/15 Given pneumococcal 13-valent vaccine 03/10/15 Given tetanus-diphtheria toxoids (Td) 05/12/12 Recorded 1Result Comment: [facility]: [id number] 2Result Comment: FLU HD [facility]# [id number] 3Result Comment: [10/19/2017] pt had done @ [facility] high dose 4Location History: [facility] 5Result Comment: [09/15/2015] HIGH DOSE 6Result Comment: [facility] Bivalent- [facility]# [id number] 7Result Comment: [07/28/2017] AT [facility] Medications amLODIPine 2.5 mg oral tablet 2.5 mg, 1, tablet, By Mouth, Daily, # 90 tablet, Refills 1, Tot. Refills 1, Maintenance, 09/01/23 14:34:00 EDT, Route to Pharmacy Electronically, [id number], Partial fill upon patient request if the prescription is for a schedule II opioid... Start Date: 09/01/23 Status: Ordered aspirin 81 mg oral tablet, chewable 81 mg, 1, tablet, By Mouth, Daily, # 30 tablet, Refills 1, Tot. Refills 1, Maintenance, 11/02/19 14:07:39 EST, Route to Pharmacy Electronically, [facility], 149.86, cm, 11/02/19 12:12:42 EST, Height, 90.2, kg, 10/29/19 15:57:27 EST, Dry Weight Start Date: 11/02/19 Stop Date: 01/01/20 Status: Ordered atorvastatin 80 mg oral tablet 1 tablet, By Mouth, Daily, # 90 tablet, 1 Refills, Maintenance, 09/01/23 14:34:00 EDT, [facility], 152, cm, 09/01/23 14:03:00 EDT, Height, 94.6, kg, 03/22/22 15:16:00 EDT, Dry Weight Start Date: 09/01/23 Status: Ordered Basaglar KwikPen 100 units/mL subcutaneous [...] 03/23/22 8:44:00 EDT, Route to Pharmacy Electronically, [facility], Partial fill upon patient request if the prescription is for a schedule II opioid... Start Date: 03/23/22 Stop Date: 06/16/23 Status: Ordered CPAP Machine See Instructions, # 1 each, Maintenance, AutoCPAP 10- with a heated humidifier. Recommend ordering a [...] capsule, Refills 1, Tot. Refills 1, Maintenance, 09/01/23 14:34:00 EDT, Route to Pharmacy Electronically, [facility], 152, cm, 09/01/23 14:03:00 EDT, Height, 94.6, kg, 03/22/22 15:16:00 EDT, Dry Weight Start Date: 09/01/23 Status: Ordered losartan 100 mg oral tablet 1 tablet, By Mouth, Daily, # 90 tablet, 1 Refills, 09/01/23 14:34:00 EDT, [facility], 152, cm, 09/01/23 14:03:00 EDT, Height, 94.6, kg, 03/22/22 15:16:00 EDT, Dry Weight Start Date: 09/01/23 Status: Ordered metFORMIN 500 mg oral tablet 1 tablet = 500 mg, By Mouth, 2 times a day, # 180 tablet, 1 Refills, Maintenance, 09/01/23 14:34:00EDT, Tablet, [facility], 152, cm, 09/01/23 14:03:00 EDT, Height, 94.6, kg, 03/22/22 15:16:00 EDT, Dry Weight Start Date: 09/01/23 Status: Ordered metoprolol 25 mg oral tablet 25 mg, 1, tablet, By Mouth, 2 times a day, # 180 tablet, Refills 1, Tot. Refills 1, Maintenance, 09/01/23 14:34:00 EDT, Route to Pharmacy Electronically, [facility], 152, cm, 09/01/23 14:03:00 EDT, Height, 94.6, kg, 03/22/22 15:16:00 EDT, D... Start Date: 09/01/23 Status: Ordered Nebulizer/Compressor See Instructions, # 1 each, Maintenance, Use up to 4x daily NEEDED - do not use in combination with inhaler, 10/12/20 13:19:00 EST, Supply Start Date: 10/12/20 Status: Ordered PEN NEEDLES [id number] PEN NEEDLES [id number], See Instructions, # 100 each, Refills 3, Tot. Refills 3, Maintenance, USE DIRECTED WITH INSULIN DAILY FAX [phone], 07/20/23 10:37:00 EDT, Compound, 152, cm, 02/24/23 13:26:00EDT, Height, 94.6, kg, 03/22/22 15:16:00 EDT, Dry... 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 Active Depression, [...] Team Personnel Name: Catalino Hagen RN Position: [facility] ED RN W/OE and Tasks Member Role: Primary Care Nurse Name: Kathleen Soliman RN Position: [facility] RN Member Role: Primary Care Nurse Name: Nahid Waterman MD Position: [facility] Physician - Primary Care Member Role: PCP Address: Address: [address] [place] [address]- Name: Margoth Jeffers RN Position: [facility] SN RN Member Role: Primary Care Nurse Name: Moraima Krause RN Position: [facility] RN Member Role: Primary Care Nurse Name: Zeynep Barrera RN Position: [facility] Hospital Line Mechanic Member Role: Primary Care Nurse Name: Karla Pacheco Position: [facility] Outreach Member Role: Lifetime Consulting Physician Name: Mei Soria RN Position: [facility] RN Member Role: Primary Care Nurse Name: Denisse Simms RN Position: [facility] RN Member Role: Primary Care Nurse Care Team Related Persons Name: ROBERT SEVILLA Address: home SAME Name: VICKIE ATKINSON Address: home [address] [place] [id number]
--- OUTSIDE RECORDS SUMMARY | 2024-03-30 20:50 | XMS_ITS | Continuity of Care Document ---
Author Organization [facility] Address [address] [place] [address]- Care Team Providers Care Inspector Sheet Metal Parts Name Role Phone Columba WATSON, Nahid Washington Primary Care Physician Encounter [facility] [place] Date(s): 11/30/22 - 03/30/[address] [address]- Attending Physician: Henrry Hawthorne MD Admitting Physician: Henrry Hawthorne MD Referring Physician: Nahid Waterman MD Allergies, Adverse Reactions, Alerts Substance Reaction Severity Status Adhesive Bandage Active Bee Stings SWELLING AT SITE ONLY Active Percocet 5/325 Active Immunizations Given and Recorded Vaccine Date Status Refusal Reason [id number] 12y+ bivalent booster vax 1 08/25/22 Given influenza virus vaccine, inactivated 2 08/25/22 Gi aaron influenza virus vaccine, inactivated 10/01/20 Give n influenza virus vaccine, inactivated 08/27/19 Luis rded influenza virus vaccine, inactivated 3 08/21/17 Re corded influenza virus vaccine, inactivated 09/09/16 Give n influenza virus vaccine, inactivated 4, 5 09/12/15 Recorded influenza virus vaccine, inactivated 10/07/14 Give n SARS-CoV-2 (COVID-19) mRNA BNT-162b2 vac 09/29/21 Recorded SARS-CoV-2 (COVID-19) mRNA BNT-162b2 vac 01/19/21 Recorded SARS-CoV-2 (COVID-19) mRNA BNT-162b2 vac 12/28/20 Recorded Zoster Vaccine Live 04/03/19 Recorded Zoster Vaccine Live 6 07/21/17 Recorded pneumococcal 23-valent vaccine 03/22/16 Given tetanus/diphtheria/pertussis, acel(Tdap) 03/10/15 Given pneumococcal 13-valent vaccine 03/10/15 Given tetanus-diphtheria toxoids (Td) 05/12/12 Recorded 1Result Comment: Pfizer Bivalent- [facility]# [id number] 2Result Comment: FLU HD [facility]# [id number] 3Result Comment: [10/19/2017] pt had done @ [facility] high dose 4Location History: [facility] 5Result Comment: [09/15/2015] HIGH DOSE 6Result Comment: [07/28/2017] AT [facility] Medications amLODIPine 2.5 mg oral tablet 2.5 mg, 1, tablet, By Mouth, Daily, # 90 tablet, Refills 1, Tot. Refills 1, Maintenance, 02/24/23 13:38:00 EDT, Route to Pharmacy Electronically, [facility], Partial fill upon patient request if the prescription is for a schedule II opioid... Start Date: 02/24/23 Status: Ordered aspirin 81 mg oral tablet, chewable 81 mg, 1, tablet, By Mouth, Daily, # 30 tablet, Refills 1, Tot. Refills 1, Maintenance, 11/02/19 14:07:39 EST, Route to Pharmacy Electronically, [facility], 149.86, cm, 11/02/19 12:12:42 EST, Height, 90.2, kg, 10/29/19 15:57:27 EST, Dry Weight Start Date: 11/02/19 Stop Date: 01/01/20 Status: Ordered atorvastatin 80 mg oral tablet 1 tablet, By Mouth, Daily, # 90 tablet, 1 Refills, Maintenance, 02/24/23 13:38:00 EDT, [facility], 152, cm, 02/24/23 13:26:00 EDT, Height, 94.6, kg, 03/22/22 15:16:00 EDT, Dry Weight Start Date: 02/24/23 Status: Ordered Basaglar KwikPen 100 units/mL subcutaneous solution = 30 units, Subcutaneous Infusion, Daily at bedtime, # 15 mL, 5 Refills, Maintenance, 02/24/23 13:38:00 EDT, [facility], 152, cm, 02/24/23 13:26:00 EDT, Height, 94.6, kg, 03/22/22 15:16:00EDT, Dry Weight Start Date: 02/24/23 Stop Date: 08/23/23 Status: Ordered clopidogrel 75 mg oral tablet 75 mg, 1, tablet, By Mouth, Daily, # 90 tablet, Refills 4, Tot. Refills 4, Maintenance, 03/23/22 8:44:00 EDT, Route to Pharmacy Electronically, [facility], Partial fill upon patient [...] capsule, Refills 1, Tot. Refills 1, Maintenance, 02/24/23 13:38:00 EDT, Route to Pharmacy Electronically, [facility], 152, cm, 02/24/23 13:26:00 EDT, Height, 94.6, kg, 03/22/22 15:16:00 EDT, Dry Weight Start Date: 02/24/23 Status: Ordered losartan 100 mg oral tablet 1 tablet, By Mouth, Daily, # 90 tablet, 1 Refills, 02/24/23 13:38:00 EDT, [facility], 152, cm, 02/24/23 13:26:00 EDT, Height, 94.6, kg, 03/22/22 15:16:00 EDT, Dry Weight Start Date: 02/24/23 Status: Ordered metFORMIN 500 mg oral tablet 1 tablet = 500 mg, By Mouth, 2 times a day, # 180 tablet, 1 Refills, Maintenance, 02/24/23 13:38:00EDT, Tablet, [facility], 152, cm, 02/24/23 13:26:00 EDT, Height, 94.6, kg, 03/22/22 15:16:00 EDT, Dry Weight Start Date: 02/24/23 Status: Ordered metoprolol 25 mg oral tablet 25 mg, 1, tablet, By Mouth, 2 times a day, # 180 tablet, Refills 1, Tot. Refills 1, Maintenance, 02/24/23 13:38:00 EDT, Route to Pharmacy Electronically, [facility], 152, cm, 02/24/23 13:26:00 EDT, Height, 94.6, kg, 03/22/22 15:16:00 EDT, D... Start Date: 02/24/23 Status: Ordered nebulizer nebulizer, See Instructions, # 1 each, Refills 0, Tot. Refills 0, Maintenance, please use up to 4 times daily, do not use with inhaler Dx COPD, 10/13/20 11:10:00 EST, Supply Start Date: 10/13/20 Status: Ordered Nebulizer/Compressor See Instructions, # 1 each, Maintenance, Use up to 4x daily NEEDED - do not use in combination with inhaler, 10/12/20 13:19:00 EST, Supply Start Date: 10/12/20 Status: Ordered PEN NEEDLES [id number] PEN NEEDLES [id number], See Instructions, # 100 each, Refills 3, Tot. Refills 3, Maintenance, USE DIRECTED WITH INSULIN DAILY FAX [phone], 08/01/22 4:14:00 EDT, Compound, 152, cm, 05/18/22 15:17:00 EDT, Height, 94.6, kg, 03/22/22 15:16:00 EDT, Dry W... Start Date: 08/01/22 Status: Ordered ProAir HFA 90 mcg/inh inhalation aerosol with adapter 2, puffs, Inhalation, Every 6 hours, PRN, # 8.5 Gm, Refills 1, Tot. Refills 1, Maintenance, 02/24/23 13:38:00 EDT, Aerosol, Route to Pharmacy Electronically, [id number], [facility], 152, cm, 02/24/23 13:26:00 EDT,... Start Date: 02/24/23 Status: Ordered trospium 60 mg oral capsule, [...] Inhalation, Every 6 hours, # 8.5 Gm, 1 Refills, Maintenance, 03/09/23 12:28:00 EDT, [facility], Partial fill upon patient request if the prescription is for a schedule II opioid drug., 152, cm, 02/24/23 13:26:00 EDT, Height, 94.6,... Start Date: 03/09/23 Status: Ordered Wheeled walker with seat Wheeled walker with seat, See Instructions, # 1 each, Refills 0, Tot. Refills 0, Maintenance, DX: Unsteady balance, 07/16/15 13:49:32, Compound Start Date: 07/16/15 Status: Ordered Zetia 10 mg oral tablet 1 tablet = 10 mg, By Mouth, Daily, TO BE TAKEN IN ADDITION TO LIPITOR FAX [phone], # 90 tablet, 1 Refills, Maintenance, 02/24/23 13:38:00 EDT, Tablet, [facility], 152, cm, 02/24/23 13:26:00 EDT, Height, 94.6, kg, 03/22/22 15:16:00 EDT,... 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 4colo 2014 5EGD 2015 6colo 2014 7Bilateral Knees and Back Social History Social History Type Response Smoking Status Former smoker; Tobac co user in household: No; Other: Quit this June 2015; entered on: 08/17/16 Sex Patient Care team information Care Team Personnel Name: Catalino Hagen RN Position: [facility] ED RN W/OE and Tasks Member Role: Primary Care Nurse Name: Kathleen Soliman RN Position: [facility] RN Member Role: Primary Care Nurse Name: Nahid Waterman MD Position: [facility] Primary Care Physician Member Role: PCP Address: Address: [address] [place] [address]- Name: Margoth Jeffers RN Position: [facility] SN RN Member Role: Primary Care Nurse Name: Moraima Krause RN Position: [facility] RN Member Role: Primary Care Nurse Name: Zeynep Barrera RN Position: [facility] Hospital Head Baggage Porter Member Role: Primary Care Nurse Name: Rosario Roca RN Position: [facility] RN Member Role: Primary Care Nurse Name: Karla Pacheco Position: [facility] Outreach Member Role: Lifetime Consulting Physician Name: Mei Soria RN Position: [facility] RN Member Role: Primary Care Nurse Name: Denisse Simms RN Position: [facility] RN Member Role: Primary Care Nurse Care Team Related Persons Name: ROBERT SEVILLA Address: home SAME Name: VICKIE ATKINSON Address: home [address] [place] [address]
--- OUTSIDE RECORDS SUMMARY | 2024-03-30 20:50 | XMS_ITS | Continuity of Care Document ---
Author Organization [facility] Address [address] [facility], [address] Floor, [address] [place] [address]- Care Team Providers Care Nylon Winder Name Role Phone Columba WATSON, Nahid Washington Primary Care Physician [phone] Encounter [facility] [place] Date(s): 09/19/23 - 01/17/24 [facility] [address], [address], [address] [place] [address]- Attending Physician: Darryl Waite MD Admitting Physician: Darryl Waite MD Referring Physician: Leah CHO, Erika Simmons Allergies, [...] influenza virus vaccine, inactivated 10/07/14 Give n [id number] 12y+ bivalent booster vax 6 08/25/22 Given SARS-CoV-2 (COVID-19) mRNA BNT-162b2 vac 09/29/21 Recorded SARS-CoV-2 (COVID-19) mRNA BNT-162b2 vac 01/19/21 Recorded SARS-CoV-2 (COVID-19) mRNA BNT-162b2 vac 12/28/20 Recorded Zoster Vaccine Live 04/03/19 Recorded Zoster Vaccine Live 7 07/21/17 Recorded pneumococcal 23-valent vaccine 03/22/16 Given tetanus/diphtheria/pertussis, acel(Tdap) 03/10/15 Given pneumococcal 13-valent vaccine 03/10/15 Given tetanus-diphtheria toxoids (Td) 05/12/12 Recorded 1Result Comment: [facility]: [id number] 2Result Comment: FLU HD [facility]# [id number] 3Result Comment: [10/19/2017] pt had done @ [facility] high dose 4Location History: [facility] 5Result Comment: [09/15/2015] HIGH DOSE 6Result Comment: Pfizer Bivalent- [facility]# [id number] 7Result Comment: [07/28/2017] AT [facility] Medications amLODIPine 2.5 mg oral tablet 2.5 mg, 1, tablet, By Mouth, Daily, # 90 tablet, Refills 1, Tot. Refills 1, Maintenance, 09/01/23 14:34:00 EDT, Route to Pharmacy Electronically, [id number], Partial fill upon patient request if the prescription is for a schedule II opioid... Start Date: 09/01/23 Status: Ordered aspirin 81 mg oral tablet, chewable 81 mg, 1, tablet, By Mouth, Daily, # 30 tablet, Refills 1, Tot. Refills 1, Maintenance, 11/02/19 14:07:39 EST, Route to Pharmacy Electronically, [facility], 149.86, cm, 11/02/19 12:12:42 EST, Height, 90.2, kg, 10/29/19 15:57:27 EST, Dry Weight Start Date: 11/02/19 Stop Date: 01/01/20 Status: Ordered atorvastatin 80 mg oral tablet 1 tablet, By Mouth, Daily, # 90 tablet, 1 Refills, Maintenance, 09/01/23 14:34:00 EDT, [facility], 152, cm, 09/01/23 14:03:00 [...] 03/23/22 8:44:00 EDT, Route to Pharmacy Electronically, [facility], Partial fill upon [...] 09/01/23 14:34:00 EDT, Route to Pharmacy Electronically, [facility], 152, cm, 09/01/23 14:03:00 EDT, Height, 94.6, kg, 03/22/22 15:16:00 EDT, Dry Weight Start Date: 09/01/23 Status: Ordered losartan 100 mg oral tablet 1 tablet, By Mouth, Daily, # 90 tablet, 1 Refills, 09/01/23 14:34:00 EDT, [facility], 152, cm, 09/01/23 14:03:00 EDT, Height, 94.6, kg, 03/22/22 15:16:00 EDT, Dry Weight Start Date: 09/01/23 Status: Ordered metFORMIN 500 mg oral tablet 1 tablet = 500 mg, By Mouth, 2 times a day, # 180 tablet, 1 Refills, Maintenance, 09/01/23 14:34:00EDT, Tablet, [facility], 152, cm, 09/01/23 14:03:00 EDT, Height, 94.6, kg, 03/22/22 15:16:00 EDT, Dry Weight Start Date: 09/01/23 Status: Ordered metoprolol 25 mg oral tablet 25 mg, 1, tablet, By Mouth, 2 times a day, # 180 tablet, Refills 1, Tot. Refills 1, Maintenance, 09/01/23 14:34:00 EDT, Route to Pharmacy Electronically, [facility], 152, cm, 09/01/23 14:03:00 EDT, Height, 94.6, kg, 03/22/22 15:16:00 EDT, D... Start Date: 09/01/23 Status: Ordered Nebulizer/Compressor See Instructions, # 1 each, Maintenance, Use up to 4x daily NEEDED - do not use in combination with inhaler, 10/12/20 13:19:00 EST, Supply Start Date: 10/12/20 Status: Ordered PEN NEEDLES [id number] PEN NEEDLES [id number], See Instructions, # 100 each, Refills 3, Tot. 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 Name: Margoth Jeffers RN Position: [facility] SN RN Member Role: Primary Care Nurse Name: Moraima Krause RN Position: [facility] RN Member Role: Primary Care Nurse Name: Zeynep Barrera RN Position: [facility] Booking Officer Member Role: Primary Care Nurse Name: Karla Pacheco Position: [facility] Outreach Member Role: Lifetime Consulting Physician Name: Mei Soria RN Position: [facility] RN Member Role: Primary Care Nurse Name: Demi CASTILLO, Denisse Mello Position: [facility] RN Member Role: Primary Care Nurse Care Team Related Persons Name: ROBERT SEVILLA Address: home SAME Name: VICKIE ATKINSON Address: home [address] [place] [address]
--- OUTSIDE RECORDS SUMMARY | 2024-03-30 20:50 | XMS_ITS | Continuity of Care Document ---
Author Organization [facility] Address [address] [facility], [address] Floor, [address] [place] [id number]- Care Team Providers Care Commercial Singer Name Role Phone Columba WATSON, Nahid [place] Primary Care Physician [place] [facility] [place] 12/18/23 - 01/17/24 [facility] [address], [address], [address] [place] [id number]- Attending Physician: Admtr, Ar8 Allergies, Adverse Reactions, Alerts [...] influenza virus vaccine, inactivated 10/07/14 Give n [id number] 12y+ bivalent booster vax 6 08/25/22 Given SARS-CoV-2 (COVID-19) mRNA BNT-162b2 vac 09/29/21 Recorded SARS-CoV-2 (COVID-19) mRNA BNT-162b2 vac 01/19/21 Recorded SARS-CoV-2 (COVID-19) mRNA BNT-162b2 vac 12/28/20 Recorded Zoster Vaccine Live 04/03/19 Recorded Zoster Vaccine Live 7 07/21/17 Recorded pneumococcal 23-valent vaccine 03/22/16 Given tetanus/diphtheria/pertussis, acel(Tdap) 03/10/15 Given pneumococcal 13-valent vaccine 03/10/15 Given tetanus-diphtheria toxoids (Td) 05/12/12 Recorded 1Result Comment: [facility]: [id number] 2Result Comment: FLU HD [facility]# [id number] 3Result Comment: [10/19/2017] pt had done @ [facility] high dose 4Location History: [facility] 5Result Comment: [09/15/2015] HIGH DOSE 6Result Comment: Pfizer Bivalent- [facility]# [id number] 7Result Comment: [07/28/2017] AT [facility] Medications amLODIPine 2.5 mg oral tablet 2.5 mg, 1, tablet, By Mouth, Daily, # 90 tablet, Refills 1, Tot. Refills 1, Maintenance, 09/01/23 14:34:00 EDT, Route to Pharmacy Electronically, [id number], Partial fill upon patient request if the prescription is for a schedule II opioid... Start Date: 09/01/23 Status: Ordered aspirin 81 mg oral tablet, chewable 81 mg, 1, tablet, By Mouth, Daily, # 30 tablet, Refills 1, Tot. Refills 1, Maintenance, 11/02/19 14:07:39 EST, Route to Pharmacy Electronically, [id number], 149.86, cm, 11/02/19 12:12:42 EST, Height, 90.2, kg, 10/29/19 15:57:27 EST, Dry Weight Start Date: 11/02/19 Stop Date: 01/01/20 Status: Ordered atorvastatin 80 mg oral tablet 1 tablet, By Mouth, Daily, # 90 tablet, 1 Refills, Maintenance, 09/01/23 14:34:00 EDT, [facility], 152, cm, 09/01/23 14:03:00 EDT, [...] 8:44:00 EDT, Route to Pharmacy Electronically, [facility], Partial fill upon patient request if [...] 09/01/23 14:34:00 EDT, Route to Pharmacy Electronically, [facility], 152, cm, 09/01/23 14:03:00 EDT, Height, 94.6, kg, 03/22/22 15:16:00 EDT, Dry Weight Start Date: 09/01/23 Status: Ordered losartan 100 mg oral tablet 1 tablet, By Mouth, Daily, # 90 tablet, 1 Refills, 09/01/23 14:34:00 EDT, [facility], 152, cm, 09/01/23 14:03:00 EDT, Height, 94.6, kg, 03/22/22 15:16:00 EDT, Dry Weight Start Date: 09/01/23 Status: Ordered metFORMIN 500 mg oral tablet 1 tablet = 500 mg, By Mouth, 2 times a day, # 180 tablet, 1 Refills, Maintenance, 09/01/23 14:34:00EDT, Tablet, [facility], 152, cm, 09/01/23 14:03:00 EDT, Height, 94.6, kg, 03/22/22 15:16:00 EDT, Dry Weight Start Date: 09/01/23 Status: Ordered metoprolol 25 mg oral tablet 25 mg, 1, tablet, By Mouth, 2 times a day, # 180 tablet, Refills 1, Tot. Refills 1, Maintenance, 09/01/23 14:34:00 EDT, Route to Pharmacy Electronically, [facility], 152, cm, 09/01/23 14:03:00 EDT, Height, 94.6, kg, 03/22/22 15:16:00 EDT, D... Start Date: 09/01/23 Status: Ordered Nebulizer/Compressor See Instructions, # 1 each, Maintenance, Use up to 4x daily NEEDED - do not use in combination with inhaler, 10/12/20 13:19:00 EST, Supply Start Date: 10/12/20 Status: Ordered PEN NEEDLES [id number] PEN NEEDLES [id number], See Instructions, # 100 each, Refills 3, Tot. 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 Depression, [...] Team Personnel Name: Catalino Hagen RN Position: [facility] ED RN W/OE and Tasks Member Role: Primary Care Nurse Name: Kathleen Soliman RN Position: [facility] RN Member Role: Primary Care Nurse Name: Nahid Waterman MD Position: [facility] Physician - Primary Care Member Role: PCP Address: Address: [address] [place] [phone]- Name: Margoth Jeffers RN Position: [facility] SN RN Member Role: Primary Care Nurse Name: Moraima Krause RN Position: [facility] RN Member Role: Primary Care Nurse Name: Zeynep Barrera RN Position: [facility] Hospital Heel Seat Pounder Member Role: Primary Care Nurse Name: Karla Pacheco Position: [facility] Outreach Member Role: Lifetime Consulting Physician Name: Mei Soria RN Position: [facility] RN Member Role: Primary Care Nurse Name: Denisse Simms RN Position: [facility] RN Member Role: Primary Care Nurse Care Team Related Persons Name: ROBERT SEVILLA Address: home SAME Name: VICKIE ATKINSON Address: home [address] [place] [id number]
--- OUTSIDE RECORDS SUMMARY | 2024-03-30 20:51 | XMS_ITS | Continuity of Care Document ---
Author Organization [facility] Chaim Maynor lt Address [address] [place] [address]- Care Team Providers Care State Patrol Officer Name Role Phone Columba WATSON, Naihd [place] Primary Care Physician [phone] Encounter [facility] Date(s): 02/09/24 - 03/10/24 [facility] Mika Marialey Adult [address] [place] [address]- Allergies, Adverse Reactions, Alerts Substance Reaction Severity [...] influenza virus vaccine, inactivated 10/07/14 Give n [id number] 12y+ bivalent booster vax 6 08/25/22 Given SARS-CoV-2 (COVID-19) mRNA BNT-162b2 vac 09/29/21 Recorded SARS-CoV-2 (COVID-19) mRNA BNT-162b2 vac 01/19/21 Recorded SARS-CoV-2 (COVID-19) mRNA BNT-162b2 vac 12/28/20 Recorded Zoster Vaccine Live 04/03/19 Recorded Zoster Vaccine Live 7 07/21/17 Recorded pneumococcal 23-valent vaccine 03/22/16 Given tetanus/diphtheria/pertussis, acel(Tdap) 03/10/15 Given pneumococcal 13-valent vaccine 03/10/15 Given tetanus-diphtheria toxoids (Td) 05/12/12 Recorded 1Result Comment: [facility]: [id number] 2Result Comment: FLU HD [facility]# [id number] 3Result Comment: [10/19/2017] pt had done @ [facility] high dose 4Location History: [facility] 5Result Comment: [09/15/2015] HIGH DOSE 6Result Comment: [facility] Bivalent- [facility]# [id number] 7Result Comment: [07/28/2017] AT [facility] Medications amLODIPine 2.5 mg [...] 03/23/22 8:44:00 EDT, Route to Pharmacy Electronically, [facility], Partial fill upon patient [...] 02/09/24 12:58:00 EDT, Route to Pharmacy Electronically, [facility], 152, cm, 09/01/23 14:03:00 EDT, Height, 94.6, kg, 03/22/22 15:16:00 EDT, Dry Weight Start Date: 02/09/24 Status: Ordered losartan 100 mg oral tablet 1 tablet, By Mouth, Daily, # 90 tablet, 0 Refills, 02/09/24 12:58:00 EDT, [facility], 152, cm, 09/01/23 14:03:00 EDT, Height, 94.6, kg, 03/22/22 15:16:00 EDT, Dry Weight Start Date: 02/09/24 Status: Ordered metFORMIN 500 mg oral tablet 1 tablet = 500 mg, By Mouth, 2 times a day, # 180 tablet, 0 Refills, Maintenance, 02/09/24 12:58:00EDT, Tablet, [facility], 152, cm, 09/01/23 14:03:00 EDT, Height, 94.6, kg, 03/22/22 15:16:00 EDT, Dry Weight Start Date: 02/09/24 Status: Ordered metoprolol 25 mg oral tablet 25 mg, 1, tablet, By Mouth, 2 times a day, # 180 tablet, Refills 0, Tot. Refills 0, Maintenance, 02/09/24 12:58:00 EDT, Route to Pharmacy Electronically, [facility], 152, cm, 09/01/23 14:03:00 EDT, Height, 94.6, kg, 03/22/22 15:16:00 EDT,... Start Date: 02/09/24 Status: Ordered Nebulizer/Compressor See Instructions, # 1 each, Maintenance, Use up to 4x daily NEEDED - do not use in combination with inhaler, 10/12/20 13:19:00 EST, Supply Start Date: 10/12/20 Status: Ordered PEN NEEDLES [id number] PEN NEEDLES [id number], See Instructions, # 100 each, Refills 3, Tot. 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 Confirmed Active Depression, [...] Team Personnel Name: Catalino Hagen RN Position: [facility] ED RN W/OE and Tasks Member Role: Primary Care Nurse Name: Kathleen Soliman RN Position: [facility] RN Member Role: Primary Care Nurse Name: Nahid Waterman MD Position: [facility] Physician - Primary Care Member Role: PCP Address: Address: [address] [place] [phone]- Name: Margoth Jeffers RN Position: [facility] SN RN Member Role: Primary Care Nurse Name: Moraima Krause RN Position: [facility] RN Member Role: Primary Care Nurse Name: Zeynep Barrera RN Position: [facility] Hospital Sports Management Professor Member Role: Primary Care Nurse Name: Karla Pacheco Position: [facility] Outreach Member Role: Lifetime Consulting Physician Name: Mei Soria RN Position: [facility] RN Member Role: Primary Care Nurse Name: Denisse Simms RN Position: [facility] RN Member Role: Primary Care Nurse Care Team Related Persons Name: ROBERT SEVILLA Address: home SAME Name: VICKIE ATKINSON Address: home [address] [place] [id number]
--- OUTSIDE RECORDS SUMMARY | 2024-03-30 20:51 | XMS_ITS | Continuity of Care Document ---
Author Organization [facility] Chaim Maynor lt Address [address] [place] [address]- Care Team Providers Care Customer Service Supervisor Name Role Phone Nahid Waterman MD Primary Care Physician Encounter [facility] [place] [facility] [place] Date(s): 09/01/23 - 09/08/23 [facility] [place] Adult [address] [place] [address]- Encounter Diagnosis Resting tremor(Discharge Diagnosis) - 09/01/23 COPD (chronic obstructive pulmonary disease)(Discharge Diagnosis) - 09/01/23 Sleep apnea(Discharge Diagnosis) - 09/01/23 2-vessel coronary artery disease(Discharge Diagnosis) - 09/01/23 History of cerebrovascular accident(Discharge Diagnosis) - 09/01/23 Diabetic retinopathy(Discharge Diagnosis) - 09/01/23 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(Discharge Diagnosis) - 09/01/23 Type 2 diabetes mellitus(Discharge Diagnosis) - 09/01/23 Hypertension(Discharge Diagnosis) - 09/01/23 Hypercholesterolemia(Discharge Diagnosis) - 09/01/23 Depression, major, in remission(Discharge Diagnosis) - 09/01/23 Urinary frequency(Discharge Diagnosis) - 09/01/23 CKD (chronic kidney disease)(Discharge Diagnosis) - 09/01/23 Severe obesity(Discharge Diagnosis) - 09/01/23 Attending Physician: Erika Lynn NP Referring Physician: [...] influenza virus vaccine, inactivated 10/07/14 Give n [id number] 12y+ bivalent booster vax 6 08/25/22 Given SARS-CoV-2 (COVID-19) mRNA BNT-162b2 vac 09/29/21 Recorded SARS-CoV-2 (COVID-19) mRNA BNT-162b2 vac 01/19/21 Recorded SARS-CoV-2 (COVID-19) mRNA BNT-162b2 vac 12/28/20 Recorded Zoster Vaccine Live 04/03/19 Recorded Zoster Vaccine Live 7 07/21/17 Recorded pneumococcal 23-valent vaccine 03/22/16 Given tetanus/diphtheria/pertussis, acel(Tdap) 03/10/15 Given pneumococcal 13-valent vaccine 03/10/15 Given tetanus-diphtheria toxoids (Td) 05/12/12 Recorded 1Result Comment: [facility]: [id number] 2Result Comment: FLU HD [facility]# [id number] 3Result Comment: [10/19/2017] pt had done @ [facility] high dose 4Location History: [facility] 5Result Comment: [09/15/2015] HIGH DOSE 6Result Comment: [facility] Bivalent- [facility]# [id number] 7Result Comment: [07/28/2017] AT [facility] Medications amLODIPine 2.5 mg oral tablet 2.5 mg, 1, tablet, By Mouth, Daily, # 90 tablet, Refills 1, Tot. Refills 1, Maintenance, 09/01/23 14:34:00 EDT, Route to Pharmacy Electronically, [facility], Partial fill upon patient request if the prescription is for a schedule II opioid... Start Date: 09/01/23 Status: Ordered aspirin 81 mg oral tablet, chewable 81 mg, 1, tablet, By Mouth, Daily, # 30 tablet, Refills 1, Tot. Refills 1, Maintenance, 11/02/19 14:07:39 EST, Route to Pharmacy Electronically, [facility], 149.86, cm, 11/02/19 12:12:42 EST, Height, 90.2, kg, 10/29/19 15:57:27 EST, Dry Weight Start Date: 11/02/19 Stop Date: 01/01/20 Status: Ordered atorvastatin 80 mg oral tablet 1 tablet, By Mouth, Daily, # 90 tablet, 1 Refills, Maintenance, 09/01/23 14:34:00 EDT, [facility], 152, cm, 09/01/23 14:03:00 EDT, Height, 94.6, kg, 03/22/22 15:16:00 EDT, Dry Weight Start Date: 09/01/23 Status: Ordered Basaglar KwikPen 100 units/mL subcutaneous solution = 30 units, Subcutaneous Infusion, Daily at bedtime, # 15 mL, 5 Refills, Maintenance, 09/01/23 14:34:00 EDT, [facility], 152, cm, 09/01/23 14:03:00 EDT, Height, 94.6, kg, 03/22/22 15:16:00EDT, Dry Weight Start Date: 09/01/23 Stop Date: 02/28/24 Status: Ordered clopidogrel 75 mg oral tablet 75 mg, 1, tablet, By Mouth, Daily, # 90 tablet, Refills 4, Tot. Refills 4, Maintenance, 03/23/22 8:44:00 EDT, Route to Pharmacy Electronically, [facility], Partial fill upon patient request if the prescription is for a schedule II opioid... Start Date: 03/23/22 Stop Date: 06/16/23 Status: Ordered CPAP Machine See Instructions, # 1 each, Maintenance, AutoCPAP 10-14 with a heated humidifier. Recommend ordering a machine with compliance data capabilities and following residual AHI. Dx: HAYDEE Lifetime, :51:14, Compound Start Date: 10/11/17 Status: Ordered CPAP Equipment See Instructions, # 1 each, Refills 11, Tot. Refills 11, Maintenance, Dx: HAYDEE Headgear, tubing, water chamber, filter, heated humidifier., 10/11/17 9:18:40, Compound Start Date: 10/11/17 Status: Ordered FLUoxetine 20 mg oral capsule 1, capsule, By Mouth, Daily, # 90 capsule, Refills 1, Tot. Refills 1, Maintenance, 09/01/23 14:34:00 EDT, Route to Pharmacy Electronically, [facility], 152, cm, 09/01/23 14:03:00 EDT, Height, 94.6, kg, 03/22/22 15:16:00 EDT, Dry Weight Start Date: 09/01/23 Status: Ordered losartan 100 mg oral tablet 1 tablet, By Mouth, Daily, # 90 tablet, 1 Refills, 09/01/23 14:34:00 EDT, [facility], 152, cm, 09/01/23 14:03:00 EDT, Height, 94.6, kg, 03/22/22 15:16:00 EDT, Dry Weight Start Date: 09/01/23 Status: Ordered metFORMIN 500 mg oral tablet 1 tablet = 500 mg, By Mouth, 2 times a day, # 180 tablet, 1 Refills, Maintenance, 09/01/23 14:34:00EDT, Tablet, [facility], 152, cm, 09/01/23 14:03:00 EDT, Height, 94.6, kg, 03/22/22 15:16:00 EDT, Dry Weight Start Date: 09/01/23 Status: Ordered metoprolol 25 mg oral tablet 25 mg, 1, tablet, By Mouth, 2 times a day, # 180 tablet, Refills 1, Tot. Refills 1, Maintenance, 09/01/23 14:34:00 EDT, Route to Pharmacy Electronically, [facility], 152, cm, 09/01/23 14:03:00 EDT, Height, 94.6, kg, 03/22/22 15:16:00 EDT, D... Start Date: 09/01/23 Status: Ordered Nebulizer/Compressor See Instructions, # 1 each, Maintenance, Use up to 4x daily NEEDED - do not use in combination with inhaler, 10/12/20 13:19:00 EST, Supply Start Date: 10/12/20 Status: Ordered PEN NEEDLES [id number] PEN NEEDLES [id number], See Instructions, # 100 each, Refills 3, Tot. Refills 3, Maintenance, USE DIRECTED WITH INSULIN DAILY FAX [phone], 07/20/23 10:37:00 EDT, Compound, 152, cm, 02/24/23 [...] Gm, 2 Refills, Maintenance, 05/29/23 14:03:00 EDT, [facility], Partial fill upon patient request [...] BE TAKEN IN ADDITION TO LIPITOR FAX [phone], # 90 tablet, 1 Refills, Maintenance, 09/01/23 14:34:00 EDT, Tablet, [facility], 152, cm, 09/01/23 14:03:00 EDT, Height, 94.6, kg, 03/22/22 15:16:00 EDT,... Start Date: 09/01/23 Status: Ordered Problem List Condition Confirmation Course [...] Hypertension Confirmed Active Urinary frequency Confirmed Active custodial (current) use of insulin Confirmed Active Depression, [...] 2014 6colo 2014 7Bilateral Knees and Back Diagnosis Diagnosis Type Effective Dates Health Status Clinical Service Informant Resting tremor Discharge Diagnosis 09/01/23 COPD (chronic obstructive pulmonary disease) Discharge Diagnosis 09/01/23 Sleep apnea Discharge Diagnosis 09/01/23 2-vessel coronary artery disease Discharge Diagnosis 09/01/23 History of cerebrovascular accident Discharge Diagnosis 09/01/23 Diabetic retinopathy Discharge Diagnosis 09/01/23 custodial (current) use of insulin Discharge Diagnosis 09/01/23 Type 2 diabetes mellitus Discharge Diagnosis 09/01/23 Hypertension Discharge Diagnosis 09/01/23 Hypercholesterolemia Discharge Diagnosis 09/01/23 Depression, major, in remission Discharge Diagnosis 09/01/23 Urinary frequency Discharge Diagnosis 09/01/23 CKD (chronic kidney disease) Discharge Diagnosis 09/01/23 Severe obesity Discharge Diagnosis 09/01/23 Vital Signs Most recent to oldest [Reference Range]: 1 Height 152 cm (09/01/23 2:03 PM) Weight 95.5 kg (09/01/23 2:03 PM) Oxygen Saturation [94-100 %] 98 % (09/01/23 2:03 PM) Pulse Rate [55-90 bpm] 64 bpm (09/01/23 2:03 PM) Body Mass Index [18.5-24.99 kg/m2] 41.33 kg/m2 *>HHI* (09/01/23 2:03 PM) Blood Pressure [90-138/55-84 mm Hg] 104/ 54mm Hg (09/01/23 2:03 PM) Respiratory Rate [16-30 br/min] 16 br/mi n (09/01/23 2:03 PM) Temperature [96.8-100.4 DegF] 97.7 DegF (09/01/23 2:03 PM) Mode of Delivery (Oxygen) Room air (09/01/23 2:03 PM) Blood pressure sites Arm, right (09/01/23 2:03 PM) Temperature Route Oral (09/01/23 2:03 PM) Weight Obtained Via Standing scale (09/01/23 2:03 PM) Social History Social History Type Response Smoking Status Former smoker; Tobac co user in household: No; Other: Quit this June 2015; entered on: 08/17/16 Sex Note * Fe Thomas: PERFORM, SIGN, VERIFY Event Display: Patient Education/Instruction Authored Date: [id number] [facility] Clinical Summary Name BRI SEVILLA Age 77 Years 1945 PCP Columba WATSON, Nahid Washington PCP Visit Date 09/01/2023 13:49:00 Additional Instructions: Scheduled Appointments?? Future Appointments ?No Future Appointments Scheduled Follow-Up Instructions ?? With: Address: When: Leah CHO, Erika Simmons [address] [place] [address] Business (1) In 6 months Comments: MWV Diagnosis Medications: Please continue your medications until treatment is completed or stopped by your provider. Discuss any questions related to medications with your provider. Medications to Continue Taking That Have Changed These medications were not printed or sent to your pharmacy - Albuterol (Ventolin HFA 108 mcg/inh inhalation aerosol with adapter) 2 puff(s) Inhalation every 6hours. Refills: 2. Next Dose: - Durable Medical Equipment (CPAP Machine) AutoCPAP 10-14 with a heated humidifier. Recommend ordering a machine with compliance data capabilities and following residual AHI. Dx: HAYDEE Lifetime. Refills: 0. Next Dose: - Durable Medical Equipment (CPAP Equipment) Dx: HAYDEE Headgear, tubing, water chamber, filter, heated humidifier.. Refills: 11. Next Dose: - Durable Medical Equipment (Nebulizer/Compressor) Use up to 4x daily NEEDED - do not use in combination with inhaler. Refills: 0. Next Dose: - Durable Medical Equipment (PEN NEEDLES [id number]) USE DIRECTED WITH INSULIN DAILY FAX [phone]. Refills: 3. Next Dose: - Durable Medical Equipment (Wheeled walker with seat) DX: Unsteady balance. Refills: 0. Next Dose: Medications to Continue with No Changes [facility]278, [address] [place] [id number], [phone] Amlodipine (amLODIPine 2.5 mg oral tablet) 1 tab(s) Oral Daily. Refills: 1. Next Dose: Atorvastatin (atorvastatin 80 mg oral tablet) 1 tab(s) Oral Daily. Refills: 1. Next Dose: Ezetimibe (Zetia 10 mg oral tablet) 1 tab(s) Oral Daily. TO BE TAKEN IN ADDITION TO LIPITOR FAX [phone]. Refills: 1. Next Dose: Fluoxetine (FLUoxetine 20 mg oral capsule) 1 capsule Oral Daily. Refills: 1. Next Dose: Insulin Glargine (Basaglar KwikPen 100 units/mL subcutaneous solution) 30 unit(s) Subcutaneous Infusion Daily at Bedtime for 30 Days. Refills: 5. Next Dose: Losartan (losartan 100 mg oral tablet) 1 tab(s) Oral Daily. Refills: 1. Next Dose: Metformin (metFORMIN 500 mg oral tablet) 1 tab(s) Oral twice a day. Refills: 1. Next Dose: Metoprolol (metoprolol 25 mg oral tablet) 1 tab(s) Oral twice a day. Refills: 1. Next Dose: These medications were not printed or sent to your pharmacy Aspirin (aspirin 81 mg oral tablet, chewable) 1 tab(s) Oral Daily for 30 Days. Refills: 1. Next Dose: Clopidogrel (clopidogrel 75 mg oral tablet) 1 tab(s) Oral Daily for 90 Days. Refills: 4. Next Dose: Trospium Chloride (trospium 60 mg oral capsule, extended release) 1 capsule Oral Daily in the morning. Next Dose: Allergy Info:?? Percocet ; Bee Stings; Adhesive Bandage Medications Given This Visit Medication Dose Route influenza virus vaccine, inactivated (influenza virus, inactivated vacc (High Dose)) 0.7 mL Intramuscular Future Orders ?No future orders Vital Signs Height 152 cm Weight 95.5 kg BMI 41.33 kg/m2 Blood Pressure 104 mm Hg/54 mm Hg Temperature 97.7 DegF Pulse Rate 64 bpm Respiratory Rate 16 br/min 02 Sat Mode of Delivery 98 %/Room air You can now view a summary of your hospital visit from the comfort of your home through a free online portal called [employer]. [employer] is a website that allows you to securely view your medical information including discharge summary, medications and follow-up visits. ??You can alsosend a secure electronic message to your doctor???s office to request appointments, renew medications or just ask a question. You can enroll at [email or web address] or register during your next office visit. Disclaimer:?? The information provided is of a general nature and is intended to be used in conjunction with the recommendations and advice of your health care practitioner. ??Every effort has been made to ensure that the information provided is accurate and complete at the time it is provided to you however, as your needs change, or, as new ??information becomes available, different or additional instructions may be required. If you have questions, please consult with your primary care provider or pharmacist, as appropriate. ??This information is not intended to serve as substitution for assessment and evaluation by a qualified health care provider. If you do not have a primary care provider, you may find a [facility] provider by calling [facility] Link at [phone]. [facility], in keeping with [facility] guidance, no longer requires face masks for staff, patientsor visitors in most situations. Similar to time spent indoors at other locations, there is the chance that you were exposed to respiratory viruses during your time with us (such as flu or COVID-19).? If you develop symptoms concerning for a viral respiratory infection, please seek testing (and treatment if indicated) from your medical provider or home test kit. For information about the plan of care including goals and instructions for your diagnosis, please see the patient education orders section of this document. Patient Education Materials?? The content of this educational material or handout may have been modified, supplemented, or adapted from its original content and format to support your individualized medical care. Patient Care team information Care Team Personnel Name: Catalino Hagen RN Position: [facility] ED RN W/OE and Tasks Member Role: Primary Care Nurse Name: Kathleen Soliman RN Position: [facility] RN Member Role: Primary Care Nurse Name: Nahid Waterman MD Position: [facility] Physician - Primary Care Member Role: PCP Address: Address: [address] [place] [address]- Name: Margoth Jeffers RN Position: [facility] SN RN Member Role: Primary Care Nurse Name: Moraima Krause RN Position: [facility] RN Member Role: Primary Care Nurse Name: Zeynep Barrera RN Position: [facility] Member Role: Primary Care Nurse Name: Rosario Roca RN Position: [facility] RN Member Role: Primary Care Nurse Name: Karla Pacheco Position: [facility] Outreach Member Role: Lifetime Consulting Physician Name: Mei Soria RN Position: [facility] RN Member Role: Primary Care Nurse Name: Denisse Simms RN Position: [facility] RN Member Role: Primary Care Nurse Care Team Related Persons Name: ROBERT SEVILLA Address: home SAME Name: VICKIE ATKINSON Address: home [address] [place] [address]
--- OUTSIDE RECORDS SUMMARY | 2024-03-30 20:51 | XMS_ITS | Continuity of Care Document ---
Author Organization [facility] Chaim Maynor lt Address [address] [place] [address]- Care Team Providers Care Diamond Saw Operator Name Role Phone Columba WATSON, Nahid Washington Primary Care Physician Encounter [facility] Date(s): 01/31/24 - 03/01/24 [facility] Mika Marialey Adult [address] [place] [address]- Allergies, Adverse Reactions, Alerts Substance Reaction Severity [...] influenza virus vaccine, inactivated 10/07/14 Give n [id number] 12y+ bivalent booster vax 6 08/25/22 Given SARS-CoV-2 (COVID-19) mRNA BNT-162b2 vac 09/29/21 Recorded SARS-CoV-2 (COVID-19) mRNA BNT-162b2 vac 01/19/21 Recorded SARS-CoV-2 (COVID-19) mRNA BNT-162b2 vac 12/28/20 Recorded Zoster Vaccine Live 04/03/19 Recorded Zoster Vaccine Live 7 07/21/17 Recorded pneumococcal 23-valent vaccine 03/22/16 Given tetanus/diphtheria/pertussis, acel(Tdap) 03/10/15 Given pneumococcal 13-valent vaccine 03/10/15 Given tetanus-diphtheria toxoids (Td) 05/12/12 Recorded 1Result Comment: [facility]: [id number] 2Result Comment: FLU HD [facility]# [id number] 3Result Comment: [10/19/2017] pt had done @ [facility] high dose 4Location History: [facility] 5Result Comment: [09/15/2015] HIGH DOSE 6Result Comment: [facility] Bivalent- [facility]# [id number] 7Result Comment: [07/28/2017] AT [facility] Medications amLODIPine 2.5 mg oral tablet 2.5 mg, 1, tablet, By Mouth, Daily, # 90 tablet, Refills 1, Tot. Refills 1, Maintenance, 09/01/23 14:34:00 EDT, Route to Pharmacy Electronically, [facility], Partial fill upon patient request if the prescription is for a schedule II opioid... Start Date: 09/01/23 Status: Ordered aspirin 81 mg oral tablet, chewable 81 mg, 1, tablet, By Mouth, Daily, # 30 tablet, Refills 1, Tot. Refills 1, Maintenance, 11/02/19 14:07:39 EST, Route to Pharmacy Electronically, [facility], 149.86, cm, 11/02/19 [...] 03/23/22 8:44:00 EDT, Route to Pharmacy Electronically, [facility], Partial fill upon [...] 02/09/24 12:58:00 EDT, Route to Pharmacy Electronically, [facility], 152, cm, 09/01/23 14:03:00 EDT, Height, 94.6, kg, 03/22/22 15:16:00 EDT, Dry Weight Start Date: 02/09/24 Status: Ordered losartan 100 mg oral tablet 1 tablet, By Mouth, Daily, # 90 tablet, 0 Refills, 02/09/24 12:58:00 EDT, [facility], 152, cm, 09/01/23 14:03:00 EDT, Height, 94.6, kg, 03/22/22 15:16:00 EDT, Dry Weight Start Date: 02/09/24 Status: Ordered metFORMIN 500 mg oral tablet 1 tablet = 500 mg, By Mouth, 2 times a day, # 180 tablet, 0 Refills, Maintenance, 02/09/24 12:58:00EDT, Tablet, [facility], 152, cm, 09/01/23 14:03:00 EDT, Height, 94.6, kg, 03/22/22 15:16:00 EDT, Dry Weight Start Date: 02/09/24 Status: Ordered metoprolol 25 mg oral tablet 25 mg, 1, tablet, By Mouth, 2 times a day, # 180 tablet, Refills 0, Tot. Refills 0, Maintenance, 02/09/24 12:58:00 EDT, Route to Pharmacy Electronically, [facility], 152, cm, 09/01/23 14:03:00 EDT, Height, 94.6, kg, 03/22/22 15:16:00 EDT,... Start Date: 02/09/24 Status: Ordered Nebulizer/Compressor See Instructions, # 1 each, Maintenance, Use up to 4x daily NEEDED - do not use in combination with inhaler, 10/12/20 13:19:00 EST, Supply Start Date: 10/12/20 Status: Ordered PEN NEEDLES [id number] PEN NEEDLES [id number], See Instructions, # 100 each, Refills 3, Tot. 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 Confirmed Active Depression, [...] Team Personnel Name: Catalino Hagen RN Position: [facility] ED RN W/OE and Tasks Member Role: Primary Care Nurse Name: Kathleen Soliman RN Position: [facility] RN Member Role: Primary Care Nurse Name: Nahid Waterman MD Position: [facility] Physician - Primary Care Member Role: PCP Address: Address: [address] [place] [address]- Name: Margoth Jeffers RN Position: [facility] SN RN Member Role: Primary Care Nurse Name: Moraima Krause RN Position: [facility] RN Member Role: Primary Care Nurse Name: Zeynep Barrera RN Position: [facility] Hospital Preparation Supervisor Member Role: Primary Care Nurse Name: Karla Pacheco Position: [facility] Outreach Member Role: Lifetime Consulting Physician Name: Mei Soria RN Position: [facility] RN Member Role: Primary Care Nurse Name: Denisse Simms RN Position: [facility] RN Member Role: Primary Care Nurse Care Team Related Persons Name: ROBERT SEVILLA Address: home SAME Name: VICKIE ATKINSON Address: home [address] [place] [id number]
--- OUTSIDE RECORDS SUMMARY | 2024-03-30 20:51 | XMS_ITS | Continuity of Care Document ---
Author Organization [facility] Chaim Maynor lt Address [address] [place] [address]- Care Team Providers Care Compressor Stations Superintendent Name Role Phone Columba WATSON, Nahid Washington Primary Care Physician [phone] Encounter [facility] Date(s): 09/29/23 - 10/29/23 [facility] Mika Rucker Adult [address] [place] [address]- Allergies, Adverse Reactions, Alerts Substance Reaction Severity [...] influenza virus vaccine, inactivated 10/07/14 Give n [id number] 12y+ bivalent booster vax 6 08/25/22 Given SARS-CoV-2 (COVID-19) mRNA BNT-162b2 vac 09/29/21 Recorded SARS-CoV-2 (COVID-19) mRNA BNT-162b2 vac 01/19/21 Recorded SARS-CoV-2 (COVID-19) mRNA BNT-162b2 vac 12/28/20 Recorded Zoster Vaccine Live 04/03/19 Recorded Zoster Vaccine Live 7 07/21/17 Recorded pneumococcal 23-valent vaccine 03/22/16 Given tetanus/diphtheria/pertussis, acel(Tdap) 03/10/15 Given pneumococcal 13-valent vaccine 03/10/15 Given tetanus-diphtheria toxoids (Td) 05/12/12 Recorded 1Result Comment: [facility]: 08476-732-98 2Result Comment: FLU HD [facility]# 14930-321-54 3Result Comment: [10/19/2017] pt had done @ [facility] high dose 4Location History: [facility] 5Result Comment: [09/15/2015] HIGH DOSE 6Result Comment: Pfizer Bivalent- [facility]# [address]-1 7Result Comment: [07/28/2017] AT [facility] Medications amLODIPine 2.5 mg oral tablet 2.5 mg, 1, tablet, By Mouth, Daily, # 90 tablet, Refills 1, Tot. Refills 1, Maintenance, 09/01/23 14:34:00 EDT, Route to Pharmacy Electronically, [facility], Partial fill upon patient request if the prescription is for a schedule II opioid... Start Date: 09/01/23 Status: Ordered aspirin 81 mg oral tablet, chewable 81 mg, 1, tablet, By Mouth, Daily, # 30 tablet, Refills 1, Tot. Refills 1, Maintenance, 11/02/19 14:07:39 EST, Route to Pharmacy Electronically, [facility], 149.86, cm, 11/02/19 12:12:42 EST, Height, 90.2, kg, 10/29/19 15:57:27 EST, Dry Weight Start Date: 11/02/19 Stop Date: 01/01/20 Status: Ordered atorvastatin 80 mg oral tablet 1 tablet, By Mouth, Daily, # 90 tablet, 1 Refills, Maintenance, 09/01/23 14:34:00 EDT, [facility], 152, cm, 09/01/23 14:03:00 EDT, Height, 94.6, kg, 03/22/22 15:16:00 EDT, Dry Weight Start Date: 09/01/23 Status: Ordered Basaglar KwikPen 100 units/mL subcutaneous solution = 30 units, Subcutaneous Infusion, Daily at bedtime, # 15 mL, 5 Refills, Maintenance, 09/01/23 14:34:00 EDT, [facility], 152, cm, 09/01/23 14:03:00 EDT, Height, 94.6, kg, 03/22/22 15:16:00EDT, Dry Weight Start Date: 09/01/23 Stop Date: 02/28/24 Status: Ordered clopidogrel 75 mg oral tablet 75 mg, 1, tablet, By Mouth, Daily, # 90 tablet, Refills 4, Tot. Refills 4, Maintenance, 03/23/22 8:44:00 EDT, Route to Pharmacy Electronically, [facility], Partial fill upon [...] 09/01/23 14:34:00 EDT, Route to Pharmacy Electronically, [facility], 152, cm, 09/01/23 14:03:00 EDT, Height, 94.6, kg, 03/22/22 15:16:00 EDT, Dry Weight Start Date: 09/01/23 Status: Ordered losartan 100 mg oral tablet 1 tablet, By Mouth, Daily, # 90 tablet, 1 Refills, 09/01/23 14:34:00 EDT, [facility], 152, cm, 09/01/23 14:03:00 EDT, Height, 94.6, kg, 03/22/22 15:16:00 EDT, Dry Weight Start Date: 09/01/23 Status: Ordered metFORMIN 500 mg oral tablet 1 tablet = 500 mg, By Mouth, 2 times a day, # 180 tablet, 1 Refills, Maintenance, 09/01/23 14:34:00EDT, Tablet, [facility], 152, cm, 09/01/23 14:03:00 EDT, Height, 94.6, kg, 03/22/22 15:16:00 EDT, Dry Weight Start Date: 09/01/23 Status: Ordered metoprolol 25 mg oral tablet 25 mg, 1, tablet, By Mouth, 2 times a day, # 180 tablet, Refills 1, Tot. Refills 1, Maintenance, 09/01/23 14:34:00 EDT, Route to Pharmacy Electronically, [facility], 152, cm, 09/01/23 14:03:00 EDT, Height, 94.6, kg, 03/22/22 15:16:00 EDT, D... Start Date: 09/01/23 Status: Ordered Nebulizer/Compressor See Instructions, # 1 each, Maintenance, Use up to 4x daily NEEDED - do not use in combination with inhaler, 10/12/20 13:19:00 EST, Supply Start Date: 10/12/20 Status: Ordered PEN NEEDLES [id number] PEN NEEDLES [id number], See Instructions, # 100 each, Refills 3, Tot. Refills 3, Maintenance, USE DIRECTED WITH INSULIN DAILY FAX [phone], 07/20/23 10:37:00 EDT, Compound, 152, cm, 02/24/23 [...] Gm, 2 Refills, Maintenance, 05/29/23 14:03:00 EDT, [facility], Partial fill upon patient [...] BE TAKEN IN ADDITION TO LIPITOR FAX [phone], # 90 tablet, 1 Refills, Maintenance, 09/01/23 14:34:00 EDT, Tablet, [facility], 152, cm, 09/01/23 14:03:00 [...] Hypertension Confirmed Active Urinary frequency Confirmed Active prison (current) use of insulin Confirmed Active Depression, [...] Team Personnel Name: Catalino Hagen RN Position: [facility] ED RN W/OE and Tasks Member Role: Primary Care Nurse Name: Kathleen Soliman RN Position: [facility] RN Member Role: Primary Care Nurse Name: Nahid Waterman MD Position: [facility] Physician - Primary Care Member Role: PCP Address: Address: [address] [place] [address]- Name: Margoth Jeffers RN Position: [facility] SN RN Member Role: Primary Care Nurse Name: Moraima Krause RN Position: [facility] RN Member Role: Primary Care Nurse Name: Zeynep Barrera RN Position: [facility] Hospital Phonograph Cartridge Assembler Member Role: Primary Care Nurse Name: Karla Pacheco Position: [facility] Outreach Member Role: Lifetime Consulting Physician Name: Mei Soria RN Position: [facility] RN Member Role: Primary Care Nurse Name: Denisse Simms RN Position: [facility] RN Member Role: Primary Care Nurse Care Team Related Persons Name: ROBERT SEVILLA Address: home SAME Name: VICKIE ATKINSON Address: home [address] [place] [address]
--- OUTSIDE RECORDS SUMMARY | 2024-03-30 20:52 | XMS_ITS | Continuity of Care Document ---
Author Organization [facility] Address [address] [place] [address]- Care Team Providers Care Installation Helper Name Role Phone Columba WATSON, Nahid Washington Primary Care Physician Encounter [facility] Date(s): 02/28/23 - 03/30/[address] [address]- Attending Physician: Bal De Souza Admitting Physician: Bal De Souza Referring Physician: AdmtrBal Allergies, Adverse Reactions, Alerts Substance Reaction Severity Status Adhesive Bandage Active Bee Stings SWELLING AT SITE ONLY Active Percocet 5/325 Active Immunizations Given and Recorded Vaccine Date Status Refusal Reason [id number] 12y+ bivalent booster vax 1 08/25/22 Given [...] Live 6 07/21/17 Recorded pneumococcal 23-valent vaccine 5/3/16 Given tetanus/diphtheria/pertussis, acel(Tdap) 03/10/15 Given pneumococcal 13-valent vaccine 03/10/15 Given tetanus-diphtheria toxoids (Td) 05/12/12 Recorded 1Result Comment: Pfizer Bivalent- [facility]# [address]-9 2Result Comment: FLU HD [facility]# 56531-987-62 3Result Comment: [10/19/2017] pt had done @ [facility] high dose 4Location History: [facility] 5Result Comment: [09/15/2015] HIGH DOSE 6Result Comment: [07/28/2017] AT [facility] Medications amLODIPine 2.5 mg oral tablet 2.5 mg, 1, tablet, By Mouth, Daily, # 90 tablet, Refills 1, Tot. Refills 1, Maintenance, 02/24/23 13:38:00 EDT, Route to Pharmacy Electronically, [facility], Partial fill upon patient request if the prescription is for a schedule II opioid... Start Date: 02/24/23 Status: Ordered aspirin 81 mg oral tablet, chewable 81 mg, 1, tablet, By Mouth, Daily, # 30 tablet, Refills 1, Tot. Refills 1, Maintenance, 11/02/19 14:07:39 EST, Route to Pharmacy Electronically, [facility], 149.86, cm, 11/02/19 12:12:42 EST, Height, 90.2, kg, 10/29/19 15:57:27 EST, Dry Weight Start Date: 11/02/19 Stop Date: 01/01/20 Status: Ordered atorvastatin 80 mg oral tablet 1 tablet, By Mouth, Daily, # 90 tablet, 1 Refills, Maintenance, 02/24/23 13:38:00 EDT, [facility], 152, cm, 02/24/23 13:26:00 EDT, Height, 94.6, kg, 03/22/22 15:16:00 EDT, Dry Weight Start Date: 02/24/23 Status: Ordered Basaglar KwikPen 100 units/mL subcutaneous solution = 30 units, Subcutaneous Infusion, Daily at bedtime, # 15 mL, 5 Refills, Maintenance, 02/24/23 13:38:00 EDT, [facility], 152, cm, 02/24/23 13:26:00 EDT, Height, 94.6, kg, 03/22/22 15:16:00EDT, Dry Weight Start Date: 02/24/23 Stop Date: 08/23/23 Status: Ordered clopidogrel 75 mg oral tablet 75 mg, 1, tablet, By Mouth, Daily, # 90 tablet, Refills 4, Tot. Refills 4, Maintenance, 03/23/22 8:44:00 EDT, Route to Pharmacy Electronically, [facility], Partial fill upon [...] 02/24/23 13:38:00 EDT, Route to Pharmacy Electronically, [facility], 152, cm, 02/24/23 13:26:00 EDT, Height, 94.6, kg, 03/22/22 15:16:00 EDT, Dry Weight Start Date: 02/24/23 Status: Ordered losartan 100 mg oral tablet 1 tablet, By Mouth, Daily, # 90 tablet, 1 Refills, 02/24/23 13:38:00 EDT, [facility], 152, cm, 02/24/23 13:26:00 EDT, Height, 94.6, kg, 03/22/22 15:16:00 EDT, Dry Weight Start Date: 02/24/23 Status: Ordered metFORMIN 500 mg oral tablet 1 tablet = 500 mg, By Mouth, 2 times a day, # 180 tablet, 1 Refills, Maintenance, 02/24/23 13:38:00EDT, Tablet, [facility], 152, cm, 02/24/23 13:26:00 EDT, Height, 94.6, kg, 03/22/22 15:16:00 EDT, Dry Weight Start Date: 02/24/23 Status: Ordered metoprolol 25 mg oral tablet 25 mg, 1, tablet, By Mouth, 2 times a day, # 180 tablet, Refills 1, Tot. Refills 1, Maintenance, 02/24/23 13:38:00 EDT, Route to Pharmacy Electronically, [facility], 152, cm, 02/24/23 13:26:00 EDT, [...] Start Date: 10/12/20 Status: Ordered PEN NEEDLES [id number] PEN NEEDLES [id number], See Instructions, # 100 each, Refills 3, Tot. Refills 3, Maintenance, USE DIRECTED WITH INSULIN DAILY FAX [phone], 08/01/22 4:14:00 EDT, Compound, 152, cm, 05/18/22 15:17:00 EDT, Height, 94.6, kg, 03/22/22 15:16:00 EDT, Dry W... Start Date: 08/01/22 Status: Ordered ProAir HFA 90 mcg/inh inhalation aerosol with adapter 2, puffs, Inhalation, Every 6 hours, PRN, # 8.5 Gm, Refills 1, Tot. Refills 1, Maintenance, 02/24/23 13:38:00 EDT, Aerosol, Route to Pharmacy Electronically, [id number], [facility], 152, cm, 02/24/23 13:26:00 EDT,... [...] Gm, 1 Refills, Maintenance, 03/09/23 12:28:00 EDT, [facility], Partial fill upon patient [...] BE TAKEN IN ADDITION TO LIPITOR FAX [phone], # 90 tablet, 1 Refills, Maintenance, 02/24/23 13:38:00 EDT, Tablet, [facility], 152, cm, 02/24/23 13:26:00 EDT, [...] Hypertension Confirmed Active Urinary frequency Confirmed Active alf (current) use of insulin Confirmed Active Depression, [...] Team Personnel Name: Catalino Hagen RN Position: [facility] ED RN W/OE and Tasks Member Role: Primary Care Nurse Name: Kathleen Soliman RN Position: [facility] RN Member Role: Primary Care Nurse Name: Nahid Waterman MD Position: [facility] Primary Care Physician Member Role: PCP Address: Address: [address] [place] [address]- Name: Margoth Jeffers RN Position: [facility] SN RN Member Role: Primary Care Nurse Name: Moraima Krause RN Position: [facility] RN Member Role: Primary Care Nurse Name: Zeynep Barrera RN Position: [facility] Hospital Body Line Finisher Member Role: Primary Care Nurse Name: Rosario Roca RN Position: [facility] RN Member Role: Primary Care Nurse Name: Karla Pacheco Position: [facility] Outreach Member Role: Lifetime Consulting Physician Name: Mei Soria RN Position: [facility] RN Member Role: Primary Care Nurse Name: Denisse Simms RN Position: [facility] RN Member Role: Primary Care Nurse Care Team Related Persons Name: ROBERT SEVILLA Address: home SAME Name: VICKIE ATKINSON Address: home [address] [place] [address]
--- OUTSIDE RECORDS SUMMARY | 2024-03-30 20:52 | XMS_ITS | Continuity of Care Document ---
Author Organization [facility] Chaim Maynor lt Address [address] [place] [address]- Care Team Providers Care Supervisor Quality Control Name Role Phone Nahid Waterman MD Primary Care Physician Encounter [facility] Date(s): 03/11/24 - 03/18/24 [facility] Adult [address] [place] [address]- Encounter Diagnosis Wellness examination(Discharge Diagnosis) - 03/11/24 COPD (chronic obstructive pulmonary disease)(Discharge Diagnosis) - 03/11/24 Sleep apnea(Discharge Diagnosis) - 03/11/24 2-vessel coronary artery disease(Discharge Diagnosis) - 03/11/24 History of non-ST elevation myocardial infarction (NSTEMI)(Discharge Diagnosis) - 03/11/24 History of cerebrovascular accident(Discharge Diagnosis) - 03/11/24 Type 2 diabetes mellitus(Discharge Diagnosis) - 03/11/24 braiding 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(Discharge Diagnosis) - 03/11/24 Hypertension(Discharge Diagnosis) - 03/11/24 Hypercholesterolemia(Discharge Diagnosis) - 03/11/24 Depression, major, in remission(Discharge Diagnosis) - 03/11/24 Urinary frequency(Discharge Diagnosis) - 03/11/24 CKD (chronic kidney disease)(Discharge Diagnosis) - 03/11/24 Severe obesity(Discharge Diagnosis) - 03/11/24 Attending Physician: Erika Lynn NP Referring Physician: [...] influenza virus vaccine, inactivated 10/07/14 Give n [id number] 12y+ bivalent booster vax 6 08/25/22 Given SARS-CoV-2 (COVID-19) mRNA BNT-162b2 vac 09/29/21 Recorded SARS-CoV-2 (COVID-19) mRNA BNT-162b2 vac 01/19/21 Recorded SARS-CoV-2 (COVID-19) mRNA BNT-162b2 vac 12/28/20 Recorded Zoster Vaccine Live 04/03/19 Recorded Zoster Vaccine Live 7 07/21/17 Recorded pneumococcal 23-valent vaccine 03/22/16 Given tetanus/diphtheria/pertussis, acel(Tdap) 03/10/15 Given pneumococcal 13-valent vaccine 03/10/15 Given tetanus-diphtheria toxoids (Td) 05/12/12 Recorded 1Result Comment: [facility]: [id number] 2Result Comment: FLU HD [facility]# 95305-213-40 3Result Comment: [10/19/2017] pt had done @ [facility] high dose 4Location History: [facility] 5Result Comment: [09/15/2015] HIGH DOSE 6Result Comment: Pfizer Bivalent- [facility]# [id number] 7Result Comment: [07/28/2017] AT [facility] Medications amLODIPine 2.5 mg oral tablet 2.5 mg, 1, tablet, By Mouth, Daily, # 90 tablet, Refills 1, Tot. Refills 1, Maintenance, 09/01/23 14:34:00 EDT, Route to Pharmacy Electronically, [facility], Partial fill upon patient request if the prescription is for a schedule II opioid... Start Date: 09/01/23 Status: Ordered aspirin 81 mg oral tablet, chewable 81 mg, 1, tablet, By Mouth, Daily, # 30 tablet, Refills 1, Tot. Refills 1, Maintenance, 11/02/19 14:07:39 EST, Route to Pharmacy Electronically, [facility], 149.86, cm, 11/02/19 12:12:42 EST, Height, 90.2, kg, 10/29/19 15:57:27 EST, Dry Weight Start Date: 11/02/19 Stop Date: 01/01/20 Status: Ordered atorvastatin 80 mg oral tablet 1 tablet, By Mouth, Daily, # 90 tablet, 1 Refills, Maintenance, 01/31/24 9:12:00 EDT, [facility], 152, cm, 09/01/23 14:03:00 EDT, Height, 94.6, kg, 03/22/22 15:16:00 EDT, Dry Weight Start Date: 01/31/24 Status: Ordered Basaglar KwikPen 100 units/mL subcutaneous solution = 30 units, Subcutaneous Infusion, Daily at bedtime, # 15 mL, 5 Refills, Maintenance, 11/29/23 15:47:00 EST, [facility], 152, cm, 09/01/23 14:03:00 EDT, Height, 94.6, kg, 03/22/22 15:16:00 EDT, Dry Weight Start Date: 11/29/23 Stop Date: 05/27/24 Status: Ordered CPAP Machine See Instructions, # [...] 02/09/24 12:58:00 EDT, Route to Pharmacy Electronically, [facility], 152, cm, 09/01/23 14:03:00 EDT, Height, 94.6, kg, 03/22/22 15:16:00 EDT, Dry Weight Start Date: 02/09/24 Status: Ordered losartan 100 mg oral tablet 1 tablet, By Mouth, Daily, # 90 tablet, 0 Refills, 02/09/24 12:58:00 EDT, [facility], 152, cm, 09/01/23 14:03:00 EDT, Height, 94.6, kg, 03/22/22 15:16:00 EDT, Dry Weight Start Date: 02/09/24 Status: Ordered metFORMIN 500 mg oral tablet 1 tablet = 500 mg, By Mouth, 2 times a day, # 180 tablet, 0 Refills, Maintenance, 02/09/24 12:58:00EDT, Tablet, [facility], 152, cm, 09/01/23 14:03:00 EDT, Height, 94.6, kg, 03/22/22 15:16:00 EDT, Dry Weight Start Date: 02/09/24 Status: Ordered metoprolol 25 mg oral tablet 25 mg, 1, tablet, By Mouth, 2 times a day, # 180 tablet, Refills 0, Tot. Refills 0, Maintenance, 02/09/24 12:58:00 EDT, Route to Pharmacy Electronically, [facility], 152, cm, 09/01/23 14:03:00 EDT, Height, 94.6, kg, 03/22/22 15:16:00 EDT,... Start Date: 02/09/24 Status: Ordered Myrbetriq 25 mg oral tablet, extended release 1 tablet = 25 mg, By Mouth, Daily, 0 Refills, Maintenance, 03/11/24 13:38:00 EDT, Partial fill uponpatient request if the prescription is for a schedule II opioid drug. Start Date: 03/11/24 Status: Ordered Nebulizer/Compressor See Instructions, # 1 each, Maintenance, Use up to 4x daily NEEDED - do not use in combination with inhaler, 10/12/20 13:19:00 EST, Supply Start Date: 10/12/20 Status: Ordered PEN NEEDLES [id number] PEN NEEDLES [id number], See Instructions, # 100 each, Refills 3, Tot. Refills 3, Maintenance, USE DIRECTED WITH INSULIN DAILY FAX [phone], 01/31/24 9:12:00 EDT, Compound, 152, cm, 09/01/23 14:03:00 EDT, Height, 94.6, kg, 03/22/22 15:16:00 EDT, Dry W... 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 Confirmed Active Depression, [...] Effective Dates Health Status Clinical Service Informant Wellness examination Discharge Diagnosis 03/11/24 COPD (chronic obstructive pulmonary disease) Discharge Diagnosis 03/11/24 Sleep apnea Discharge Diagnosis 03/11/24 2-vessel coronary artery disease Discharge Diagnosis 03/11/24 History of non-ST elevation myocardial infarction (NSTEMI) Discharge Diagnosis 03/11/24 History of cerebrovascular accident Discharge Diagnosis 03/11/24 Type 2 diabetes mellitus Discharge Diagnosis 03/11/24 braiding 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 Discharge Diagnosis 03/11/24 Hypertension Discharge Diagnosis 03/11/24 Hypercholesterolemia Discharge Diagnosis 03/11/24 Depression, major, in remission Discharge Diagnosis 03/11/24 Urinary frequency Discharge Diagnosis 03/11/24 CKD (chronic kidney disease) Discharge Diagnosis 03/11/24 Severe obesity Discharge Diagnosis 03/11/24 Vital Signs Most recent to oldest [Reference Range]: 1 Height 152 cm (03/11/24 1:38 PM) Weight 93.9 kg (03/11/24 1:38 PM) Oxygen Saturation [94-100 %] 94 % (03/11/24 1:38 PM) Pulse Rate [55-90 bpm] 68 bpm (03/11/24 1:38 PM) Body Mass Index [18.5-24.99 kg/m2] 40.64 kg/m2 *>HHI* (03/11/24 1:38 PM) Blood Pressure [90-138/55-84 mm Hg] 148/ 60mm Hg *H* (03/11/24 1:38 PM) Respiratory Rate [16-30 br/min] 16 br/mi n (03/11/24 1:38 PM) Temperature [96.8-100.4 DegF] 97.7 DegF (03/11/24 1:38 PM) Mode of Delivery (Oxygen) Room air (03/11/24 1:38 PM) Blood pressure sites Arm, right (03/11/24 1:38 PM) Temperature Route Oral (03/11/24 1:38 PM) Weight Obtained Via Standing scale (03/11/24 1:38 PM) Social History Social History Type Response Smoking Status Former smoker; Tobac co user in household: No; Other: Quit this June 2015; entered on: 08/17/16 Sex Patient Care team information Care Team Personnel Name: Catalino Hagen RN Position: [facility] ED RN W/OE and Tasks Member Role: Primary Care Nurse Name: Kathleen Soliman RN Position: [facility] RN Member Role: Primary Care Nurse Name: Nahid Waterman MD Position: [facility] Physician - Primary Care Member Role: PCP Address: Address: [address] [place] [id number] Name: Margoth Jeffers RN Position: [facility] SN RN Member Role: Primary Care Nurse Name: Moraima Krause RN Position: [facility] RN Member Role: Primary Care Nurse Name: Zeynep Barrera RN Position: [facility] Hospital Corporate Receptionist Member Role: Primary Care Nurse Name: Karla Pacheco Position: [facility] Outreach Member Role: Lifetime Consulting Physician Name: Mei Soria RN Position: [facility] RN Member Role: Primary Care Nurse Name: Demi CASTILLO, Denisse Mello Position: [facility] RN Member Role: Primary Care Nurse Care Team Related Persons Name: ROBERT SEVILLA Address: home SAME Name: VICKIE ATKINSON Address: home [address] [place] [address]
--- OUTSIDE RECORDS SUMMARY | 2024-03-30 20:52 | XMS_ITS | Continuity of Care Document ---
Author Organization [facility] Pulmonary M edicine Address [address] [place] [address]- Care Team Providers Care Director [employer] Name Role Phone Columba WATSON, Nahid Washington Primary Care Physician [phone] Encounter [facility] Date(s): 01/31/24 - 03/01/24 [facility] Medicine [address] [place] [address]- Allergies, Adverse Reactions, Alerts Substance Reaction Severity [...] influenza virus vaccine, inactivated 10/07/14 Give n [id number] 12y+ bivalent booster vax 6 08/25/22 Given SARS-CoV-2 (COVID-19) mRNA BNT-162b2 vac 09/29/21 Recorded SARS-CoV-2 (COVID-19) mRNA BNT-162b2 vac 01/19/21 Recorded SARS-CoV-2 (COVID-19) mRNA BNT-162b2 vac 12/28/20 Recorded Zoster Vaccine Live 04/03/19 Recorded Zoster Vaccine Live 7 07/21/17 Recorded pneumococcal 23-valent vaccine 03/22/16 Given tetanus/diphtheria/pertussis, acel(Tdap) 03/10/15 Given pneumococcal 13-valent vaccine 03/10/15 Given tetanus-diphtheria toxoids (Td) 05/12/12 Recorded 1Result Comment: [facility]: [id number] 2Result Comment: FLU HD [facility]# 61888-615-21 3Result Comment: [10/19/2017] pt had done @ [facility] high dose 4Location History: [facility] 5Result Comment: [09/15/2015] HIGH DOSE 6Result Comment: [facility] Bivalent- [facility]# [id number] 7Result Comment: [07/28/2017] AT [facility] Medications amLODIPine 2.5 mg oral tablet 2.5 mg, 1, tablet, By Mouth, Daily, # 90 tablet, Refills 1, Tot. Refills 1, Maintenance, 09/01/23 14:34:00 EDT, Route to Pharmacy Electronically, [id number], Partial fill upon patient request if the prescription is for a schedule II opioid... Start Date: 09/01/23 Status: Ordered aspirin 81 mg oral tablet, chewable 81 mg, 1, tablet, By Mouth, Daily, # 30 tablet, Refills 1, Tot. Refills 1, Maintenance, 11/02/19 14:07:39 EST, Route to Pharmacy Electronically, [id number], 149.86, cm, 11/02/19 [...] 03/23/22 8:44:00 EDT, Route to Pharmacy Electronically, [facility], Partial fill upon [...] 02/09/24 12:58:00 EDT, Route to Pharmacy Electronically, [facility], 152, cm, 09/01/23 14:03:00 EDT, Height, 94.6, kg, 03/22/22 15:16:00 EDT, Dry Weight Start Date: 02/09/24 Status: Ordered losartan 100 mg oral tablet 1 tablet, By Mouth, Daily, # 90 tablet, 0 Refills, 02/09/24 12:58:00 EDT, [facility], 152, cm, 09/01/23 14:03:00 EDT, Height, 94.6, kg, 03/22/22 15:16:00 EDT, Dry Weight Start Date: 02/09/24 Status: Ordered metFORMIN 500 mg oral tablet 1 tablet = 500 mg, By Mouth, 2 times a day, # 180 tablet, 0 Refills, Maintenance, 02/09/24 12:58:00EDT, Tablet, [facility], 152, cm, 09/01/23 14:03:00 EDT, Height, 94.6, kg, 03/22/22 15:16:00 EDT, Dry Weight Start Date: 02/09/24 Status: Ordered metoprolol 25 mg oral tablet 25 mg, 1, tablet, By Mouth, 2 times a day, # 180 tablet, Refills 0, Tot. Refills 0, Maintenance, 02/09/24 12:58:00 EDT, Route to Pharmacy Electronically, [facility], 152, cm, 09/01/23 14:03:00 EDT, Height, 94.6, kg, 03/22/22 15:16:00 EDT,... Start Date: 02/09/24 Status: Ordered Nebulizer/Compressor See Instructions, # 1 each, Maintenance, Use up to 4x daily NEEDED - do not use in combination with inhaler, 10/12/20 13:19:00 EST, Supply Start Date: 10/12/20 Status: Ordered PEN NEEDLES [id number] PEN NEEDLES [id number], See Instructions, # 100 each, Refills 3, Tot. Refills 3, Maintenance, USE DIRECTED WITH INSULIN DAILY FAX [phone], 01/31/24 9:12:00 EDT, Compound, 152, cm, 09/01/23 [...] Gm, 2 Refills, Maintenance, 05/29/23 14:03:00 EDT, [id number], Partial fill upon patient request if the [...] BE TAKEN IN ADDITION TO LIPITOR FAX [phone], # 90 tablet, 1 Refills, Maintenance, 12/21/23 [...] Hypertension Confirmed Active Urinary frequency Confirmed Active jail (current) use of insulin Confirmed Active Depression, [...] Team Personnel Name: Catalino Hagen RN Position: [facility] ED RN W/OE and Tasks Member Role: Primary Care Nurse Name: Kathleen Soliman RN Position: [facility] RN Member Role: Primary Care Nurse Name: Nahid Watermna MD Position: [facility] Physician - Primary Care Member Role: PCP Address: Address: [address] [place] [address]- Name: Margoth Jeffers RN Position: [facility] SN RN Member Role: Primary Care Nurse Name: Moraima Krause RN Position: [facility] RN Member Role: Primary Care Nurse Name: Zeynep Barrera RN Position: [facility] Hospital Tunnel Heading Inspector Member Role: Primary Care Nurse Name: Karla Pacheco Position: [facility] Outreach Member Role: [employer] Consulting Physician Name: Mei Soria RN Position: [facility] RN Member Role: Primary Care Nurse Name: Denisse Simms RN Position: [facility] RN Member Role: Primary Care Nurse Care Team Related Persons Name: ROBERT SEVILAL Address: home SAME Name: VICKIE ATKINSON Address: home [address] [place] [id number]
[2024-03-30 21:24] VITALS: BP 193/53; PULSE 65; RESP 20; TEMP 36.8; O2SAT 98
[2024-03-30] MEDS: Ketorolac Tromethamine 30 MG/ML VIAL IM (22:55)
[2024-03-30 22:56] VITALS: BP 191/63; PULSE 69; RESP 20; TEMP 36.8; O2SAT 97
[2024-03-30] MEDS: Amoxicillin/Potassium Clav 875 MG TABLET PO (22:56)
[2024-03-30] MEDS: Diphth,Pertus(ACell),Tet Adult 0.5 ML SYRINGE IM (22:56)
[2024-03-30 23:03] VITALS: BP 191/63; PULSE 69; RESP 20; TEMP 36.8; O2SAT 97
== END 2024-03-30 23:06 | disposition home or self-care (01) ==
PROVIDERS: Emergency Provider Internal Medicine; PCP Internal Medicine
DX: S02.2XXA Fracture of nasal bones, initial encounter for closed fracture (principal); S01.21XA Laceration without foreign body of nose, initial encounter; W18.11XA Fall from or off toilet without subsequent striking against object, initial encounter; Y93.9 Activity, unspecified; Y92.89 Other specified places as the place of occurrence of the external cause; Y99.9 Unspecified external cause status; J44.9 Chronic obstructive pulmonary disease, unspecified; E11.9 Type 2 diabetes mellitus without complications; I25.10 Atherosclerotic heart disease of native coronary artery without angina pectoris; Z23 Encounter for immunization
CPT/HCPCS: 70450; 70486; 72125; 90471; 90715; 96372; 99283; 99284; J1885

== ENCOUNTER 2024-04-29 21:21 | Inpatient (IN) | payer MEDICARE, MEDICAID, SELFPAY ==
--- NOTE | ~2024-04-29 | CT_ITS ---
EXAMINATION: CT ANGIOGRAM HEAD CT ANGIOGRAM NECK CLINICAL INFORMATION: Reason for Exam slurred speech, slight R facial droop, RUE weakens COMPARISON: None. TECHNIQUE: Test bolus sequences followed by intravenous administration 70 mL of Omnipaque 350. Helical imaging was performed in the axial plane from the aortic arch to the skull vertex. Delayed postcontrast imaging of the head was also performed. The data was processed at the medical laboratory technologist's workstation for generation of MIP sequences. Angled MIPs and volume rendered reformatted images were also generated at an offline 3D workstation. Stenoses are assessed in accordance with Krause et al. Quantification of Carotid Stenosis on CT Angiography. AJR 2006. 27(1):13-19. [address] CT examination was performed using dose optimization techniques as appropriate, variously including the following: *Automated exposure control *Adjustment of mA and/or kV according to patient size (this includes techniques or standardized protocols for targeted exams where dose is matched to indication/reason for exam; i.e. extremities or head) *Use of iterative reconstruction technique DLP: 1564 mGy-cm FINDINGS: CT HEAD: Moderate global cerebral volume loss and mild chronic microangiopathic changes. Chronic appearing infarcts within the greater than right cerebellar hemispheres. No intracranial hemorrhage, mass effect, or herniation pattern. 8 mm osteoma along the inner table of the right squamosal temporal calvarium with slight mass effect along the subjacent temporal lobe without vasogenic edema. No pathologic intra-axial enhancement or regional oligemia. Symmetric fusiform enlargement of several extraocular muscles with sparing of the tendinous insertions and suggestion of some intramuscular low density/intramuscular fat deposition that can be correlated with thyroid function tests. Mild to moderate patchy paranasal sinus mucosal disease with several air-fluid levels in the maxillary sinuses and right sphenoid sinus. Completely opacified left sphenoid sinus containing hyperdense and partially mineralized contents, which may reflect postinflammatory calcifications and inspissated secretions however mycetoma is not excluded. There is focal refraction along the lateral wall of the left sphenoid sinus likely reflecting chronic sinusitis. Recommend clinical correlation for superimposed acute sinusitis. CTA HEAD: Marked calcific plaque of the proximal intradural vertebral arteries contributes to severe bilateral luminal narrowing. The left intradural vertebral artery is diminutive following the takeoff of the left PICA and largely occluded, exhibiting only partial faint contrast opacification. Diminutive vertebrobasilar system on the basis of anesthesia tech. Moderate stenosis of the left posterior communicating artery. Moderate stenosis along the right proximal P2 segment on a background of mild stenoses of the PRODUCT MARKETING ENGINEER complex cyst. Near diffuse calcific plaque along the intracranial internal carotid arteries contributes to mild luminal narrowing along the horizontal petrous, cavernous, and supraclinoid segments. Mild to moderate segmental stenosis of a proximal inferior right M2 MCA division branch. Otherwise unremarkable bilateral MCA and LISA complexes. No aneurysms and no high flow vascular malformations. Timing of the contrast bolus allows assessment of the major dural venous sinuses, which all opacify normally CTA NECK: Suboptimal timing of contrast bolus limits diagnostic assessment. Four vessel branching pattern with left vertebral artery arising directly from the arch between the left common carotid and left subclavian arteries. Moderate atherosclerotic disease of the aortic arch and great vessel origins. Diagnostic assessment of the patency of the great vessel origins related to artifact. Patchy atherosclerotic disease along the common carotid arteries without associated stenosis. Partially calcified atherosclerosis at the carotid bifurcations extending into the carotid bulbs contributes to mild (less than 50%) luminal narrowing of the bilateral ICA origins and proximal internal carotid arteries. Severe near occlusive stenosis of the right external carotid artery origin and moderate to severe stenosis of the left external carotid artery origin. Retropharyngeal course of the right common carotid artery and proximal right internal carotid artery. Calcific plaque of the distal cervical internal carotid arteries without associated stenosis. The right vertebral artery is dominant. Nondiagnostic assessment of the vertebral artery origins and proximal V1 segments with calcific plaque of the right V1 segment contributing to luminal narrowing, which is not diagnostically assessed. Calcific plaque along the bilateral V2 and V3 segments, contributing to moderate stenosis on the left at the level of C3-C4 and of the left V3 segment with mild stenoses on the right. CT NECK: Incidental 1.7 cm hyperdensity within the right paramidline hyoid/infrahyoid neck seen just deep to the hyoid bone, partially effacing the preepiglottic fat, and protruding just beyond the infrahyoid strap musculature. 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 Centrilobular emphysema. Coronary artery vascular calcifications. Cervical spondylosis. Uncovertebral and facet joint hypertrophy contributes to varying degrees of neural foraminal narrowing. No high-grade spinal canal stenosis. CT/CT angio head neck stroke IMPRESSION: 1. Chronic appearing infarcts within the greater than right cerebellar hemispheres. No intracranial hemorrhage. 2. Moderate global cerebral volume loss and mild chronic microangiopathic changes. 3. Marked calcific plaque of the proximal intradural vertebral arteries contributes to severe bilateral luminal narrowing. The left intradural vertebral artery is diminutive following the takeoff of the left PICA and largely occluded, exhibiting only partial faint contrast opacification. This critical result was discussed with Michela Dee at 12:25 PM on 05/01/2024 and it was ascertained that the content and urgency of the report was understood at the time of direct communication. 4. Moderate stenoses of the left posterior communicating artery, proximal right P2 segment, and proximal inferior right M2 MCA division branch. 5. Atherosclerotic disease contributes to mild (less than 50%) luminal narrowing of the bilateral ICA origins and proximal internal carotid arteries. Severe near occlusive stenosis of the right external carotid artery origin and moderate to severe stenosis of the left external carotid artery origin. 6. Nondiagnostic assessment of the great vessel origins and proximal vertebral arteries. 7. Calcific plaque along the vertebral arteries, contributing to moderate stenosis on the left at the level of C3-C4 and of the left V3 segment. 8. 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 Enlarged multinodular right thyroid gland, not diagnostically assessed due to artifact in this region however further evaluation with thyroid ultrasound is advised.
--- NOTE | ~2024-04-29 | US_ITS ---
EXAMINATION: US ABDOMEN LIMITED CLINICAL INFORMATION: Right upper quadrant pain. COMPARISON: None available. TECHNIQUE: Real-time imaging of the right upper quadrant abdominal viscera. FINDINGS: PANCREAS: Not imaged. LIVER: Liver is of increased parenchymal echotexture with apparent focal fatty sparing near the gallbladder fossa. There is no intrahepatic biliary duct dilatation seen. GALLBLADDER: Numerous shadowing gallbladder calculi are seen. There is no gallbladder wall thickening or pericholecystic fluid. A negative Roman sign was reported by the cardiovascular radiologic technologist. COMMON BILE DUCT: Normal in caliber measuring 0.5 cm in diameter. RIGHT KIDNEY: Not imaged. FREE FLUID: None. US/US abdomen limited IMPRESSION: 1. Hepatic steatosis. 2. Cholelithiasis without additional imaging findings to suggest acute cholecystitis.
--- NOTE | ~2024-04-29 | MR_ITS ---
EXAMINATION: MR BRAIN WITHOUT CONTRAST CLINICAL INFORMATION: Slurred speech. Right-sided facial droop. COMPARISON: CTA head and neck from 05/01/2024. TECHNIQUE: MRI of the brain was obtained using routine sequences without contrast. FINDINGS: No focal restricted diffusion is demonstrated to suggest acute or subacute cerebral ischemia. No evidence of acute or chronic hemorrhagic products on heme-sensitive imaging. Chronic lacunar infarcts of the cerebellum. Scattered and partially confluent periventricular, deep white matter, and brainstem T2 FLAIR hyperintensities consistent with moderate underlying microangiopathy. Proportional prominence of the ventricles and sulcal spaces without evidence of obstructive hydrocephalus. No abnormal mass effect. No midline shift. Normal appearance of the pituitary gland. Normal positioning of the cerebellar tonsils. Normal arterial and venous vascular flow voids are present. Normal, homogeneous marrow signal. Moderate mucosal thickening of the paranasal sinuses. No signal abnormalities within the mastoids. Bilateral lens extractions. MR/MR head/brain wo con IMPRESSION: 1. No acute intracranial abnormalities. 2. Moderate underlying microangiopathy and generalized cerebral volume loss. Chronic lacunar infarcts of the cerebellum.
--- NOTE | ~2024-04-29 | CT_ITS ---
EXAMINATION: CT ABDOMEN AND PELVIS WITHOUT CONTRAST CLINICAL INFORMATION: Flank pain, nausea, acute renal failure evaluate for pyelonephritis COMPARISON: 09/21/2020 TECHNIQUE: Multidetector volumetric imaging was performed from the superior aspect of the liver through the pubic symphysis. Sagittal and coronal reformatted images were obtained on the technologist's workstation. This CT examination was performed using dose optimization techniques as appropriate, variously including the following: *Automated exposure control *Adjustment of mA and/or kV according to patient size (this includes techniques or standardized protocols for targeted exams where dose is matched to indication/reason for exam; i.e. extremities or head) *Use of iterative reconstruction technique DLP: 706 mGy-cm FINDINGS: LUNG BASES: The visualized lung bases are unremarkable. Partially visualized left breast revealed focal asymmetry in the lateral aspect of the left breast, correlate with mammography. LIVER, GALLBLADDER, AND BILIARY TREE: Liver is of low attenuation due to hepatic steatosis. Multiple stones seen in the dependent portion of gallbladder. PANCREAS: Unremarkable. SPLEEN: Unremarkable. ADRENAL GLANDS: Unremarkable. KIDNEYS AND URETERS: There is punctate calculus in the upper pole of right kidney without evidence of hydroureteronephrosis. There is minimal perinephric stranding, nonspecific. Ureters are not dilated. Vascular calcifications seen. BLADDER: Unremarkable. GASTROINTESTINAL TRACT: There are changes of colonic diverticulosis without diverticulitis. No evidence of bowel obstruction. Appendix is not seen. Small bowel loops are unremarkable. Stomach is well distended. ABDOMINAL WALL: No significant hernia is appreciated. LYMPH NODES: Normal. VASCULAR: Atherosclerotic calcifications seen throughout the abdominal aorta and main tributaries PELVIC VISCERA: Uterus is surgically absent OSSEOUS STRUCTURES: Unremarkable. CT/CT abdomen pelvis wo IV con IMPRESSION: 1. Hepatic steatosis. 2. Cholelithiasis without cholecystitis. 3. Punctate nonobstructing calculus in the upper pole of right kidney. 4. Diverticulosis without diverticulitis. 5. Status post hysterectomy. 6. Focal asymmetry in the lateral aspect of the left breast, correlate with mammography. Fleischner guidelines were followed.
--- NOTE | ~2024-04-29 | XR_ITS ---
EXAMINATION: XR CHEST CLINICAL INFORMATION: Shortness of breath COMPARISON: Previous chest x-ray and chest CTA December 2022 TECHNIQUE: 2 views of the chest were obtained. FINDINGS: The cardiac and mediastinal contours are stable. The lungs are clear. No pleural effusion or pneumothorax. Degenerative changes of the spine. XR/XR chest 2V IMPRESSION: No evidence for acute disease in the chest.
--- NOTE | ~2024-04-29 | CT_ITS ---
EXAMINATION: CT HEAD WITHOUT CONTRAST (STROKE PROTOCOL) CLINICAL INFORMATION: Stroke protocol. Slurring of speech, Right-sided facial droop, right upper extremity monoparesis COMPARISON: CT brain on 03/30/2024 TECHNIQUE: Contiguous axial imaging was performed from the skull base to vertex without intravenous administration of contrast. This CT examination was performed using dose optimization techniques as appropriate, variously including the following: *Automated exposure control *Adjustment of mA and/or kV according to patient size (this includes techniques or standardized protocols for targeted exams where dose is matched to indication/reason for exam; i.e. extremities or head) *Use of iterative reconstruction technique DLP: 755 mGy-cm FINDINGS: Ventricles, sulci and cisterns are dilated. There is no midline shift, no abnormal intra- or extra- axial fluid accumulation. Mazariegos and white matter differentiation is normal. Bone window images show no evidence of skull fracture. Mild mucosal thickening is seen at lateral and posterior wall of right maxillary sinus with a possible small right air-fluid level. CT/CT head for stroke IMPRESSION: 1. Unchanged age related cerebral atrophy and ventriculomegaly. 2. No intracranial hemorrhage or skull fracture is seen. 3. No evidence of space occupying lesion could be found. 4. The current plain CT scan of the brain shows no diagnostic evidence of acute cerebral infarction. This critical result was discussed with DUC Holcomb at 1207 hours on 05/01/2024. It was ascertained that the content and urgency of the report was understood at the time of direct communication.
[2024-04-29 21:27] VITALS: BP 164/77; BP 188/94; PULSE 70; PULSE 96; RESP 18; TEMP 36.5; O2SAT 91; O2SAT 94; BMI 40.4
--- NOTE | 2024-04-29 21:31 | ECG_ITS ---
Test Reason : WEAKNESS Blood Pressure : / mmHG Vent. Rate : 074 BPM Atrial Rate : 074 BPM P-R Int : 156 ms QRS Dur : 084 ms QT Int : 418 ms P-R-T Axes : 061 021 089 degrees QTc Int : 463 ms Sinus rhythm with Premature supraventricular complexes Nonspecific ST and T wave abnormality Abnormal ECG When compared with ECG of 17-JAN-2023 15:13, Premature supraventricular complexes are now Present Referred By: Generic ED Physician Electronically Signed By:CHRIS PINO
[2024-04-29 21:43] LABS: Basophils Absolute Auto 0.1 X10*3/uL (0.0-0.2); Basophils Percent Auto 0.3 % (0-2); Eosinophils Absolute Auto 0.1 X10*3/uL (0.0-0.4); Eosinophils Percent Auto 0.6 % (0-4); Hematocrit 42.9 % (37.0-47.0); Hemoglobin 14.6 g/dl (12.0-16.0); Imm Gran Pct Auto 1.1 % (0.0-0.4); Lymphocytes Absolute Auto 3.3 X10*3/uL (1.2-4.9); Lymphocytes Percent Auto 18.7 % (20-40); MANUAL DIFF FLAG NO; Mean Corpuscular Hemoglobin 31.9 pg (27.0-33.0); Mean Corpuscular Volume 93.9 fL (80.0-98.0); Monocytes Percent Auto 5.6 % (2-11); Neutrophils Absolute Auto 13.1 x10*3/uL (2.0-8.3); Neutrophils Percent Auto 73.7 % (45-73); Platelet Count 243 X10*3/uL (160-400); Red Blood Count 4.57 X10*6/uL (4.20-5.50); Red Cell Distribution Width 13.3 % (11.0-16.0); White Blood Count 17.7 X10*3/uL (4.8-10.8)
[2024-04-29 21:55] LABS: Venous Blood Gas Refer to POC result
[2024-04-29 21:56] LABS: VBG Base Excess -1.7 mmol/L; VBG HCO3 24 mmol/L (22-26); VBG pCO2 47 mmHg; VBG pH 7.32 (7.32-7.43); VBG pO2 43 mmHg
[2024-04-29 22:02] LABS: Alanine Aminotransferase 94 U/L (0-31); Albumin Level 3.9 g/dL (3.5-5.0); Alkaline Phosphatase 125 U/L (39-117); Anion Gap 25 (12-20); Aspartate Amino Transferase 42 U/L (5-31); Bilirubin Total 0.9 mg/dL (0.0-1.0); Blood Urea Nitrogen 52 mg/dL (9-16); Calcium 9.7 mg/dL (8.4-10.2); Carbon Dioxide 20 mmol/L (22-29); Chloride 97 mmol/L (96-108); Creatinine Clr Calc Pharmacy 23.6; Estimated Glomerular Filt Rate 25; Glucose Random 321 mg/dL (60-115); Potassium 4.8 mmol/L (3.3-5.1); Sodium 137 mmol/L (135-145); Total Protein 7.3 g/dL (6.5-8.0)
--- NOTE | 2024-04-29 22:05 | PC.NURSE ---
pt biba from home reporting increased weakness/n/v x 0700. pt recently finished abx and prednisone for pneumonia. hx chf, copd, type 2 diabetes. on arrival pt states she feels generally just unwell. pt is axox4 speaking full clear sentences. pt denies cp/sob/diarrhea/dizziness. lung sounds crackles throughout. ekg obtained. Dr. Perry notified, verbal order for vbg and bnp along with labs ordered per protocol. sats 90-94% on RA which pt states is baseline with copd/emphysema hx. labs drawn and sent. bp elevated on arrival now improved. pt return from xray at this time. awaiting lab results. daughter at bedside. nad. resting comfortably. call talbert within reach.
--- NOTE | 2024-04-29 22:08 | ED_ITS ---
HPI - General Adult General Chief complaint: General Medical Stated complaint: Gen'l weakness, nausea and vomiting, per ems Time Seen by Provider: 04/29/24 21:32 Source: patient Mode of arrival: EMS History of Present Illness ED Provider: Dr Perry HPI narrative: 78-year-old female with history and clinical presentation of recent treatment for COPD bronchitis with a course of prednisone and doxycycline states that she has had increased weakness with nausea and vomiting and has a history of type 2 diabetes/CHF/COPD. Related Data Home Medications ?Medication ?Instructions ?Recorded ?Confirmed atorvastatin 80 mg tablet 80 mg PO DAILY 12/08/20 03/14/24 ezetimibe 10 mg tablet 10 mg PO DAILY 12/08/20 03/14/24 fluoxetine 20 mg capsule 20 mg PO DAILY 12/08/20 03/14/24 losartan 100 mg tablet 100 mg PO DAILY 12/08/20 03/14/24 metformin 500 mg tablet 500 mg PO BIDWM 12/08/20 03/14/24 metoprolol tartrate 25 mg tablet 25 mg PO BID 12/08/20 03/14/24 pen needle, diabetic 32 gauge x #50 ea 05/25/21 11/07/23 albuterol sulfate 90 mcg/actuation 2 puff inhalation Q6H PRN wheezing 01/10/23 03/14/24 aerosol inhaler Previous Rx's ?Medication ?Instructions ?Recorded nitroglycerin 0.4 mg sublingual 0.4 mg sublingual Q5M PRN chest 03/10/22 tablet pain #20 tabs docusate sodium 100 mg capsule 100 mg PO DAILY PRN Constipation 01/15/23 #30 caps fluticasone propionate 50 1 spray intranasal DAILY #16 grams 01/15/23 mcg/actuation nasal spray,suspension loratadine 10 mg tablet 10 mg PO DAILY #5 tabs 01/15/23 insulin glargine 100 unit/mL (3 35 unit (0.35 mL) subcut BEDTIME 01/20/23 mL) subcutaneous pen #15 mL amlodipine 2.5 mg tablet 2.5 mg PO DAILY #90 tabs 11/21/23 Myrbetriq 25 mg tablet,extended 25 mg PO DAILY 30 days #30 tabs 03/26/24 release (mirabegron) amoxicillin 875 mg-potassium 1 tab PO BID #14 tabs 03/30/24 clavulanate 125 mg tablet Allergies Allergy/AdvReac Type Severity Reaction Status Date / Time adhesive tape Allergy Mild Unknown Verified 04/29/24 21:29 bee pollen [bee stings] Allergy Mild Swelling Verified 04/29/24 21:29 oxycodone [OXYCODONE] Allergy Mild ITCHING, Verified 04/29/24 21:29 itchy hydromorphone [From DILAUDID] AdvReac Mild ITCHING Verified 04/29/24 21:29 Review of Systems 2 Review of Systems: Pertinent positives and negatives as stated in HPI [facility] Past Medical History Source: nursing notes reviewed Medical History Stenosis of left subclavian artery Multiple falls Macular degeneration Overactive bladder Chest tightness Abnormal nuclear stress test Cataract HAYDEE on CPAP Mild anemia Hypercholesterolemia Resting tremor Osteoarthritis Unsteady gait Vertigo Sleep apnea Diabetic retinopathy Hiatal hernia Depression COPD (chronic obstructive pulmonary disease) CKD (chronic kidney disease) Orthostatic hypotension NSTEMI (non-ST elevated myocardial infarction) Syncope HLD (hyperlipidemia) CAD (coronary artery disease) High cholesterol Diabetes Heart attack Stroke Surgical History Status post cardiac catheterization History of cataract extraction Hx of colonoscopy Hx of vaginal hysterectomy Stented coronary artery History of cardiac catheterization Family History Family History Father CVD (cardiovascular disease) Mother Brain aneurysm Social History Social History Household Members: Significant Other Housing: House Are you a primary clinical care manager to a significant other at home: No Do you presently have visiting nurse or other home services: No Unable to assess alcohol history related to: Unknown Alcohol intake: never Patient Tobacco Use Status: Former Tobacco user Tobacco use type: Cigarette Cigarettes Per Day: 1.5 Years Smoked: 50 Smoked in Last 30 Days: No e-Cigarette/Vaping Use: Former Use Second Hand Smoke Exposure: No Use of substances other than those prescribed or required for medical reasons: No Advance Directives: Yes Advance Directives on File: Yes Advance Directives Date on File: 01/18/23 service: No Current occupational status: retired Physical Exam ED Vital Signs: Vital Signs - 24 hr 04/29/24 21:27 04/29/24 22:09 04/30/24 00:27 Temperature 97.7 F Pulse Rate 96 73 68 Respiratory Rate 18 14 16 Blood Pressure 188/94 H 131/45 L 118/41 L Pulse Oximetry 91 L 95 93 Oxygen Delivery Method Room Air Room Air Room Air 04/30/24 04:33 04/30/24 05:10 04/30/24 06:02 Temperature Pulse Rate 70 70 74 Respiratory Rate 16 12 16 Blood Pressure 146/43 H 135/48 L Pulse Oximetry 92 93 Oxygen Delivery Method Room Air Room Air BMI result Body Mass Index 40.4 VITAL SIGNS: Reviewed. GENERAL: Well developed, well nourished, in no acute distress. HEAD: Normocephalic/atraumatic EYES: PERRLA, EOMI EARS: Ext canals without abnormality NOSE: Nares patent bilateral OROPHARYNX: no oral lesions noted, posterior pharynx clear NECK: Supple, no adenopathy LUNGS: Good inspiratory effort, no tachypnea, crackles noted in the right base. SpO2<95> CARDIOVASCULAR: Regular rate and rhythm without noted murmurs, no JVD or lower extremity edema. ABDOMEN: Soft, non-tender, non-distended with bowel sounds. MUSCULOSKELETAL: No tenderness, deformities, or effusions noted on gross inspection. EXTREMITIES: No cyanosis, clubbing or edema. SKIN: Inspection of the skin reveals no rashes NEUROLOGIC: Alert and oriented x 4. Strength and sensation to light touch were grossly intact x 4. Medications Administered Discontinued Medications Generic Name Dose Route Start Last Admin Trade Name Freq PRN Reason Stop Dose Admin Albuterol Sulfate 2 puff 04/30/24 04:23 04/30/24 05:03 Albuterol Sulfate 90 Mcg 8 Gm Inhaler INHALE 04/30/24 04:24 Not Given ONCE ONE Albuterol/Ipratropium 3 ml 04/30/24 05:02 04/30/24 05:09 Albuterol/Iprat 2.5/0.5mg 3 Ml Ampul.Neb INHALE 04/30/24 05:03 3 ml ONCE ONE Administration Piperacillin Sod/Tazobactam 50 mls @ 100 mls/hr 04/29/24 23:09 04/30/24 00:14 Sod 3.375 gm/ Sodium Chloride IV 04/29/24 23:38 Infused ONCE ONE Infusion Ondansetron HCl 4 mg 04/30/24 04:27 04/30/24 05:03 Ondansetron Hcl 4 Mg/2 Ml Vial IVPUSH 04/30/24 04:28 4 mg ONCE ONE Administration Medical Decision Making Medical Decision Making [facility] Narrative: 2200: 78-year-old female with history and clinical presentation, DDX: CHF exacerbation, possible pneumonia, low clinical suspicion for COPD exacerbation. INTERVENTION: Antibiotics. I reviewed all investigations and hematologic indices demonstrate a leukocytosis but no anemia or thrombocytopenia. VBG does not demonstrate respiratory acidosis and there is a subtle hypercapnia that is consistent with patient's chronic COPD. Chemistry indices demonstrate an GRISEL without electrolyte derangements there is a mild elevation of transaminases. BNP is mildly elevated but this is likely reflective of GRISEL as there are no clinical or respiratory symptoms to better explain patient's symptoms. Chest x-ray negative for infiltrate. Urinalysis significant for leukocyte esterase and WBCs, patient continues to be mildly nauseous and weekend, abdominal ultrasound only significant for gallstones otherwise no evidence of acute cholecystitis. Given patient's GRISEL with WBCs and persistent nausea and weakness will proceed with CT scan and suspect patient may have an underlying kidney infection. Signed out to Dr Crespo - CT scan abd/pelvis for suspected pyelonephritis - Pt stable Differential Diagnosis Differential Diagnoses: The differential diagnosis associated with the presentation includes Please see the discussion above Admission/Observation Consideration of admission/observation: Escalation of care including admission/observation considered Please see the discussion above Lab Data [facility] Lab Attestation statement: I reviewed the patient's lab results. Please see the discussion above 04/29/24 21:37 04/29/24 21:37 Labs: Lab Results 04/29/24 04/29/24 04/29/24 Range/Units 21:37 21:43 21:49 WBC 17.7 H (4.8-10.8) X10*3/uL RBC 4.57 (4.20-5.50) X10*6/uL Hgb 14.6 D (12.0-16.0) g/dl Hct 42.9 (37.0-47.0) % MCV 93.9 (80.0-98.0) fL MCH 31.9 (27.0-33.0) pg MCHC 34.0 (31.0-35.0) g/dl RDW 13.3 (11.0-16.0) % Plt Count 243 D (160-400) X10*3/uL MPV 11.0 (9.4-12.3) fL Immature Gran % (Auto) 1.1 H (0.0-0.4) % Neut % (Auto) 73.7 H (45-73) % Lymph % (Auto) 18.7 L (20-40) % Gregory % (Auto) 5.6 (2-11) % Eos % (Auto) 0.6 (0-4) % Baso % (Auto) 0.3 (0-2) % Lymph # (Auto) 3.3 (1.2-4.9) X10*3/uL Gregory # (Auto) 1.0 (0.1-1.2) X10*3/uL Eos # (Auto) 0.1 (0.0-0.4) X10*3/uL Baso # (Auto) 0.1 (0.0-0.2) X10*3/uL Abs Immat Gran (auto) 0.20 H (0.00-0.03) X10*3/uL Absolute Neuts (auto) 13.1 H (2.0-8.3) x10*3/uL Absolute Nucleated RBC 0.000 (0.0-0.012) X10*3/uL Nucleated RBC % (auto) 0.0 (0.0-0.2) /100WBC VBG pH 7.32 (7.32-7.43) VBG pCO2 47 mmHg VBG pO2 43 mmHg VBG HCO3 24 (22-26) mmol/L VBG O2 Saturation 63.0 % VBG Base Excess -1.7 mmol/L Sodium 137 (135-145) mmol/L Potassium 4.8 (3.3-5.1) mmol/L Chloride 97 (96-108) mmol/L Carbon Dioxide 20 L (22-29) mmol/L Anion Gap 25 H (12-20) BUN 52 H (9-16) mg/dL Creatinine 1.92 H (0.5-1.4) mg/dL Estim Creat Clear Calc 23.6 Estimated GFR 25 Random Glucose 321 H (60-115) mg/dL Lactic Acid (0.5-2.0) mmol/L Lactic Acid F/U @ 2Hr (0.5-2.0) mmol/L Calcium 9.7 D (8.4-10.2) mg/dL Total Bilirubin 0.9 (0.0-1.0) mg/dL AST 42 H (5-31) U/L ALT 94 H (0-31) U/L Alkaline Phosphatase 125 H (39-117) U/L Troponin I High Sens 3.0 D (<3.5-17.0) ng/L B-Natriuretic Peptide 125 H (<100) pg/mL Total Protein 7.3 (6.5-8.0) g/dL Albumin 3.9 (3.5-5.0) g/dL Urine Color Urine Appearance Urine pH (5.0-9.0) Ur Specific Griffith (1.005-1.025) Urine Protein (Neg-Trace) mg/dL Urine Glucose (UA) (Negative) mg/dL Urine Ketones (Negative) mg/dL Urine Blood (Negative) Urine Nitrite (Negative) Ur Leukocyte Esterase (Negative) Urine RBC (0-2) /HPF Urine WBC (0-5) /HPF Ur Squamous Epith Cells (0-2) /HPF Urine Bacteria (None Seen) Hyaline Casts (0-2) /LPF Influenza Type A (PCR) (Negative) Influenza Type B (PCR) (Negative) RSV RNA Qual (PCR) (Negative) SARS-CoV-2 RNA (RT-PCR) (Negative) 04/29/24 04/30/24 04/30/24 Range/Units 22:26 01:08 04:35 WBC (4.8-10.8) X10*3/uL RBC (4.20-5.50) X10*6/uL Hgb (12.0-16.0) g/dl Hct (37.0-47.0) % MCV (80.0-98.0) fL MCH (27.0-33.0) pg MCHC (31.0-35.0) g/dl RDW (11.0-16.0) % Plt Count (160-400) X10*3/uL MPV (9.4-12.3) fL Immature Gran % (Auto) (0.0-0.4) % Neut % (Auto) (45-73) % Lymph % (Auto) (20-40) % Gregory % (Auto) (2-11) % Eos % (Auto) (0-4) % Baso % (Auto) (0-2) % Lymph # (Auto) (1.2-4.9) X10*3/uL Gregory # (Auto) (0.1-1.2) X10*3/uL Eos # (Auto) (0.0-0.4) X10*3/uL Baso # (Auto) (0.0-0.2) X10*3/uL Abs Immat Gran (auto) (0.00-0.03) X10*3/uL Absolute Neuts (auto) (2.0-8.3) x10*3/uL Absolute Nucleated RBC (0.0-0.012) X10*3/uL Nucleated RBC % (auto) (0.0-0.2) /100WBC VBG pH (7.32-7.43) VBG pCO2 mmHg VBG pO2 mmHg VBG HCO3 (22-26) mmol/L VBG O2 Saturation % VBG Base Excess mmol/L Sodium (135-145) mmol/L Potassium (3.3-5.1) mmol/L Chloride (96-108) mmol/L Carbon Dioxide (22-29) mmol/L Anion Gap (12-20) BUN (9-16) mg/dL Creatinine (0.5-1.4) mg/dL Estim Creat Clear Calc Estimated GFR Random Glucose (60-115) mg/dL Lactic Acid 2.1 H* (0.5-2.0) mmol/L Lactic Acid F/U @ 2Hr 1.9 (0.5-2.0) mmol/L Calcium (8.4-10.2) mg/dL Total Bilirubin (0.0-1.0) mg/dL AST (5-31) U/L ALT (0-31) U/L Alkaline Phosphatase (39-117) U/L Troponin I High Sens (<3.5-17.0) ng/L B-Natriuretic Peptide (<100) pg/mL Total Protein (6.5-8.0) g/dL Albumin (3.5-5.0) g/dL Urine Color Yellow Urine Appearance Clear Urine pH 5.0 (5.0-9.0) Ur Specific Griffith 1.020 (1.005-1.025) Urine Protein 30 (1+) H (Neg-Trace) mg/dL Urine Glucose (UA) Negative (Negative) mg/dL Urine Ketones Trace (Negative) mg/dL Urine Blood Negative (Negative) Urine Nitrite Negative (Negative) Ur Leukocyte Esterase Small (1+) H (Negative) Urine RBC 0-2 (0-2) /HPF Urine WBC 6-10 H (0-5) /HPF Ur Squamous Epith Cells 11-20 (0-2) /HPF Urine Bacteria None Seen (None Seen) Hyaline Casts 3-5 (0-2) /LPF Influenza Type A (PCR) NEGATIVE (Negative) Influenza Type B (PCR) NEGATIVE (Negative) RSV RNA Qual (PCR) NEGATIVE (Negative) SARS-CoV-2 RNA (RT-PCR) NEGATIVE (Negative) Independent Interpretation I performed an independent interpretation of an: EKG Interpretation: Sinus rhythm, HR-74, no STEMI, ID/QRS/QTC is within normal limits, EKG without significant changes when compared to prior from December/2022. Radiology Impression Discussion of test interpretation with radiology: I have reviewed the radiologist's reading. Radiologist Impression: Please see the discussion above External Record Review External record reviewed: Outpatient record, Prior outpatient labs and Prior outpatient radiology Chronic Conditions Patient?s care impacted by: Hypertension and Other COPD Critical Care Time Critical Care Time Critical Care Time: Yes Total Critical Care Time: 45 Attestation: I personally attest to this time spent taking care of the patient. Discharge Plan Discharge Clinical Impression: GRISEL (acute kidney injury), Pyelonephritis Patient Disposition: Admitted As Inpatient Print Language: [place]
[2024-04-29 22:09] VITALS: BP 131/45; PULSE 73; RESP 14; O2SAT 95
[2024-04-29 22:22] LABS: B Type Natriuretic Peptide 125 pg/mL (<100)
[2024-04-29 22:44] LABS: Lactic Acid 2.1 mmol/L (0.5-2.0)
[2024-04-29 23:09] LABS: Influenza A PCR NEGATIVE (Negative); Influenza B PCR NEGATIVE (Negative); Resp Syncy Virus RNA Qual PCR NEGATIVE (Negative); SARS COV2 PCR INHOUSE NEGATIVE (Negative)
[2024-04-29] MEDS: Piperacillin Sodium/Tazobactam 3.375 GM in 0.9 % Sodium Chloride 50 ML IV (23:39)
[2024-04-30] VITALS (9 sets, daily range): BP systolic 118–151; BP diastolic 41–55; PULSE 68–78; RESP 12–22; TEMP 36.4–37.2; O2SAT 84–98
[2024-04-30 00:31] LABS: Reflex Lactate? Lactic Acid Added
[2024-04-30 01:24] LABS: ~Lactic Acid-LAB USE ONLY 1.9 mmol/L (0.5-2.0)
--- NOTE | 2024-04-30 04:39 | PC.NURSE ---
pt able to urinate in bedside commode, post void bladder scan showed 28 mL urine. pt was dizzy/unsteady needing 2+ assist to commode. pt reports dizziness improves when staying still. pt reported nausea with movement. Dr. Orlando falk.
[2024-04-30 04:43] LABS: Appearance Urine Clear; Color Urine Yellow; Glucose Urine UA Negative (Negative); Leukocyte Esterase Urine Small (1+) (Negative); Nitrite Urine Negative (Negative); UMIC TRIGGER UACC YES; Urine Blood Negative (Negative); Urine Ketones Trace mg/dL (Negative); Urine Protein 30 (1+) mg/dL (Neg-Trace)
[2024-04-30 04:58] LABS: Bacteria Urine None Seen (None Seen); RBC Urine 0-2 /HPF (0-2); UACC Culture Trigger YES
[2024-04-30] MEDS: ondansetron HCL 4 MG/2 ML VIAL IVPUSH ×2 (05:03→20:18)
[2024-04-30] MEDS: Albuterol/Iprat 2.5/0.5MG 3 ML AMPUL.NEB INHALE (05:09)
--- NOTE | 2024-04-30 07:43 | PC.NURSE ---
Pt normally wears CPAP, placed on O2 for O2 at 84%, came up to 97% on 2L, provider aware.
--- NOTE | 2024-04-30 14:09 | P.HPHOSP_ITS ---
History of Present Illness Date of Service: 04/30/24 Attending physician on admission: Jerod Gasca Chief Complaint: weakness, n/v 78-year-old female with history of HAYDEE compliant with CPAP, COPD, CKD stage 3, CAD with history of NSTEMI, insulin-dependent type 2 diabetes, diabetic retinopathy, hypertension, hyperlipidemia presented to the ED last night with complaints of general malaise, lightheadedness, generalized weakness, vomiting and dry heaves ongoing since yesterday. She does state she has been nauseous for the last 3 days with anorexia. Denies eating bad foods, recent travel, no one sick at home. She was recently diagnosis COPD exacerbation and completed prednisone course on Monday and doxycycline on Monday. No fevers, chills, st, congestion, abd pain, diarrhea, melena, hematochezia, hematemesis, cough, shortness of breath, lightheadedness, chest pain. On arrival, VSS. On arrival, WBC 17.7, hematology studies otherwise unremarkable. Creatinine arrival 1.92, baseline around 1.2. BUN 52. Electrolyte levels normal except for CO2 20. On arrival glucose 321. AST 42, ALT 94. Repeat chemistry studies pending. Abdominal ultrasound shows hepatic steatosis as well as cholelithiasis without any evidence of acute cholecystitis. Chest x-ray reading pending but appears to be negative for any acute cardiopulmonary abnormality. CT abdomen/pelvis was also ordered but is not available for review. ED provider did call Radiology who does not feel there are any acute findings on the CT abdomen/pelvis. In the ED was given zosyn, duoneb, and ondansetron. Review of Systems 2 Review of Systems: Yes all other systems are reviewed and are negative [facility] Medical History Stenosis of left subclavian artery Multiple falls Macular degeneration Overactive bladder Chest tightness Abnormal nuclear stress test Cataract HAYDEE on CPAP Mild anemia Hypercholesterolemia Resting tremor Osteoarthritis Unsteady gait Vertigo Sleep apnea Diabetic retinopathy Hiatal hernia Depression COPD (chronic obstructive pulmonary disease) CKD (chronic kidney disease) Orthostatic hypotension NSTEMI (non-ST elevated myocardial infarction) Syncope HLD (hyperlipidemia) CAD (coronary artery disease) High cholesterol Diabetes Heart attack Stroke Family History Father CVD (cardiovascular disease) Mother Brain aneurysm Surgical History Status post cardiac catheterization History of cataract extraction Hx of colonoscopy Hx of vaginal hysterectomy Stented coronary artery History of cardiac catheterization Social History Household Members: Significant Other Housing: House Are you a primary child care director to a significant other at home: No Do you presently have visiting nurse or other home services: No Unable to assess alcohol history related to: Unknown Alcohol intake: never Patient Tobacco Use Status: Former Tobacco user Tobacco use type: Cigarette Cigarettes Per Day: 1.5 Years Smoked: 50 Smoked in Last 30 Days: No e-Cigarette/Vaping Use: Former Use Second Hand Smoke Exposure: No Use of substances other than those prescribed or required for medical reasons: No Advance Directives: Yes Advance Directives on File: Yes Advance Directives Date on File: 01/18/23 service: No Current occupational status: retired Meds Allergies Allergy/AdvReac Type Severity Reaction Status Date / Time adhesive tape Allergy Mild Unknown Verified 04/29/24 21:29 bee pollen [bee stings] Allergy Mild Swelling Verified 04/29/24 21:29 oxycodone [OXYCODONE] Allergy Mild ITCHING, Verified 04/29/24 21:29 itchy hydromorphone [From DILAUDID] AdvReac Mild ITCHING Verified 04/29/24 21:29 Home Medications ?Medication ?Instructions ?Recorded ?Confirmed ?Last Taken ?Type atorvastatin 80 mg tablet 80 mg PO DAILY 12/08/20 03/14/24 Unknown History ezetimibe 10 mg tablet 10 mg PO DAILY 12/08/20 03/14/24 08/16/21 History fluoxetine 20 mg capsule 20 mg PO DAILY 12/08/20 03/14/24 08/02/21 History losartan 100 mg tablet 100 mg PO DAILY 12/08/20 03/14/24 Unknown History metformin 500 mg tablet 500 mg PO BIDWM 12/08/20 03/14/24 08/02/21 History metoprolol tartrate 25 mg tablet 25 mg PO BID 12/08/20 03/14/24 08/16/21 History pen needle, diabetic 32 gauge x #50 ea 05/25/21 11/07/23 Unknown History albuterol sulfate 90 mcg/actuation 2 puff inhalation Q6H PRN wheezing 01/10/23 03/14/24 Unknown History aerosol inhaler Physical Exam 2 Vital Signs and Narrative: Vital Signs: Last Vital Signs Temp 97.8 F 04/30/24 06:49 Pulse 73 04/30/24 11:03 Resp 15 04/30/24 11:03 BP 130/51 L 04/30/24 11:03 Pulse Ox 98 04/30/24 11:03 O2 Del Method Room Air 04/30/24 11:03 BMI result Body Mass Index 40.4 Constitutional - Awake and Alert, No apparent distress Eyes - PERRLA, EOMI Cardiovascular - S1S2, RRR, No edema Respiratory - Normal lung expansion, Normal respiratory effort, No respiratory distress, CTA bilaterally Gastrointestinal - NT / ND; +BS; No rebound or guarding - No CVA tenderness Extremities - no calf tenderness bilaterally, no swelling Skin - Warm/Dry Neurological - Alert & oriented x3 Results Labs 04/29/24 21:37 04/29/24 21:37 Labs: Laboratory Results - last 24 hr 04/29/24 04/29/24 04/29/24 21:37 21:43 21:49 MCV 93.9 MCH 31.9 MCHC 34.0 RDW 13.3 Plt Count 243 D MPV 11.0 Immature Gran % (Auto) 1.1 H Neut % (Auto) 73.7 H Lymph % (Auto) 18.7 L [place] % (Auto) 5.6 Eos % (Auto) 0.6 Baso % (Auto) 0.3 Lymph # (Auto) 3.3 [place] # (Auto) 1.0 Eos # (Auto) 0.1 Baso # (Auto) 0.1 Abs Immat Gran (auto) 0.20 H Absolute Neuts (auto) 13.1 H Absolute Nucleated RBC 0.000 Nucleated RBC % (auto) 0.0 VBG pH 7.32 VBG pCO2 47 VBG pO2 43 VBG HCO3 24 VBG O2 Saturation 63.0 VBG Base Excess -1.7 Anion Gap 25 H Estim Creat Clear Calc 23.6 Estimated GFR 25 Random Glucose 321 H Lactic Acid Lactic Acid F/U @ 2Hr Calcium 9.7 D Total Bilirubin 0.9 AST 42 H ALT 94 H Alkaline Phosphatase 125 H Troponin I High Sens 3.0 D B-Natriuretic Peptide 125 H Total Protein 7.3 Albumin 3.9 Urine Color Urine Appearance Urine pH Ur Specific [place] Urine Protein Urine Glucose (UA) Urine Ketones Urine Blood Urine Nitrite Ur Leukocyte Esterase Urine RBC Urine WBC Ur Squamous Epith Cells Urine Bacteria Hyaline Casts Influenza Type A (PCR) Influenza Type B (PCR) RSV RNA Qual (PCR) SARS-CoV-2 RNA (RT-PCR) 04/29/24 04/30/24 04/30/24 22:26 01:08 04:35 MCV MCH MCHC RDW Plt Count MPV Immature Gran % (Auto) Neut % (Auto) Lymph % (Auto) [place] % (Auto) Eos % (Auto) Baso % (Auto) Lymph # (Auto) [place] # (Auto) Eos # (Auto) Baso # (Auto) Abs Immat Gran (auto) Absolute Neuts (auto) Absolute Nucleated RBC Nucleated RBC % (auto) VBG pH VBG pCO2 VBG pO2 VBG HCO3 VBG O2 Saturation VBG Base Excess Anion Gap Estim Creat Clear Calc Estimated GFR Random Glucose Lactic Acid 2.1 H* Lactic Acid F/U @ 2Hr 1.9 Calcium Total Bilirubin AST ALT Alkaline Phosphatase Troponin I High Sens B-Natriuretic Peptide Total Protein Albumin Urine Color Yellow Urine Appearance Clear Urine pH 5.0 Ur Specific [place] 1.020 Urine Protein 30 (1+) H Urine Glucose (UA) Negative Urine Ketones Trace Urine Blood Negative Urine Nitrite Negative Ur Leukocyte Esterase Small (1+) H Urine RBC 0-2 Urine WBC 6-10 H Ur Squamous Epith Cells 11-20 Urine Bacteria None Seen Hyaline Casts 3-5 Influenza Type A (PCR) NEGATIVE Influenza Type B (PCR) NEGATIVE RSV RNA Qual (PCR) NEGATIVE SARS-CoV-2 RNA (RT-PCR) NEGATIVE Imaging Radiologist's Impressions: Impressions Abdomen Ultrasound 04/30/24 02:35 IMPRESSION: 1. Hepatic steatosis. 2. Cholelithiasis without additional imaging findings to suggest acute cholecystitis. Assessment and Plan (1) GRISEL (acute kidney injury): Status: Acute (2) Leukocytosis: Status: Acute (3) Vomiting: Status: Acute Plan 78-year-old female with history of HAYDEE compliant with CPAP, COPD, CKD stage 3, CAD with history of NSTEMI, insulin-dependent type 2 diabetes, diabetic retinopathy, hypertension, hyperlipidemia admitted for further management of acute kidney injury. #Acute kidney injury -background ckd stage3 -likely prerenal due to GI losses -Creat 1.97, baseline 1.2. BUN 50. -Continue IVF -avoid nephrotoxins -monitor I&O -follow renal function/lytes #ACute nausea and vomiting -?viral gastroenteritis vs adverse reaction to doxycycline -Continue IVF -Antiemetics prn -clear liquids/crackers, advance as tolerated #Acute leukocytosis -likely 2/2 steroid use as well as reactive from vomiting/dehydration -low suspicion for infection #COPD -no acute exacerbation -continue maintenance inhalers, albuterol prn #HAYDEE -cpap bedtime #INsulin dependent type 2 diabetes -dose adjusted basal insulin -poc glucose, diabetic diet -admlelog on ss, hold metformin #HTN -hold losartan in setting of grisel -continue amlodipine, metoprolol #CAD/HLD -statin, bb dvt prophylaxis- lovenox dni/dnr given patient's acute kidney injury in the setting of ongoing gi losses, pt will require inpt hospialization at least 2 midnights for iv fluids, close monitoring of renal fx and lytes Quality Stroke Does the patient have a stroke diagnosis?: No VTE Prior VTE?: No VTE Risk Level:: Medical - moderate - high VTE Device Contraindication: Treatment Not Indicated VTE Drug Contraindication: N/A - Med Ordered
[2024-04-30] MEDS: 0.9 % Sodium Chloride 1,000 ML 999 ML IV (14:26)
[2024-04-30 14:52] LABS: MANUAL DIFF FLAG NO
[2024-04-30 14:57] LABS: Basophils Percent Auto 0.3 % (0-2); Eosinophils Absolute Auto 0.1 X10*3/uL (0.0-0.4); Eosinophils Percent Auto 0.8 % (0-4); Hematocrit 41.3 % (37.0-47.0); Hemoglobin 14.1 g/dl (12.0-16.0); Imm Gran Abs Auto 0.11 X10*3/uL (0.00-0.03); Imm Gran Pct Auto 0.7 % (0.0-0.4); Lymphocytes Absolute Auto 2.9 X10*3/uL (1.2-4.9); Lymphocytes Percent Auto 17.9 % (20-40); Mean Corpuscular HGB Conc 34.1 g/dl (31.0-35.0); Mean Corpuscular Hemoglobin 32.1 pg (27.0-33.0); Mean Corpuscular Volume 94.1 fL (80.0-98.0); Monocytes Percent Auto 6.1 % (2-11); Neutrophils Absolute Auto 11.9 x10*3/uL (2.0-8.3); Neutrophils Percent Auto 74.2 % (45-73); Platelet Count 235 X10*3/uL (160-400); Red Blood Count 4.39 X10*6/uL (4.20-5.50); Red Cell Distribution Width 13.5 % (11.0-16.0)
[2024-04-30 15:14] LABS: Alanine Aminotransferase 77 U/L (0-31); Albumin Level 3.7 g/dL (3.5-5.0); Alkaline Phosphatase 124 U/L (39-117); Anion Gap 16 (12-20); Aspartate Amino Transferase 31 U/L (5-31); Bilirubin Direct 0.3 mg/dL (0.0-0.5); Bilirubin Total 0.9 mg/dL (0.0-1.0); Blood Urea Nitrogen 52 mg/dL (9-16); Calcium 9.4 mg/dL (8.4-10.2); Carbon Dioxide 26 mmol/L (22-29); Chloride 100 mmol/L (96-108); Creatinine Clr Calc Pharmacy 27.4; Estimated Glomerular Filt Rate 30; Glucose Random 278 mg/dL (60-115); Lipase 39 U/L (8-78); Magnesium 1.9 mg/dL (1.6-2.6); Potassium 4.7 mmol/L (3.3-5.1); Sodium 137 mmol/L (135-145); Total Protein 6.7 g/dL (6.5-8.0)
--- NOTE | 2024-04-30 15:15 | PHA.MEDREC ---
Pharmacy Consult ? Medication Reconciliation Pharmacy has completed the medication reconciliation. Spoke with Claire on the phone at pts bedside to confirm meds. Patient poor historian.
[2024-04-30 16:37] LABS: Glucose, Whole Blood 280 mg/dL (60-115)
[2024-04-30] MEDS: 0.9 % Sodium Chloride 1,000 ML 100 ML IVCONT (16:47)
[2024-04-30] MEDS: Insulin Lispro 100 UNIT/ML 3 ML VIAL SUBCUT ×2 (16:56→21:51)
[2024-04-30] MEDS: Enoxaparin Sodium 30 MG/0.3 ML SYRINGE SUBCUT (16:56)
--- NOTE | 2024-04-30 18:39 | MHC.EDTECH ---
pt was assisted to the commode at bedside with a walker and then back to the bed pt had a medium size bowel movement brown and mushy
[2024-04-30 21:04] LABS: Glucose, Whole Blood 263 mg/dL (60-115)
[2024-04-30] MEDS: Mirabegron 25 MG TAB.ER.24H PO (21:52)
[2024-04-30] MEDS: Metoprolol Tartrate 25 MG TABLET PO (21:52)
[2024-04-30] MEDS: Insulin Glargine,Hum.rec.anlog 100 UNIT/ML 10 ML VIAL 25 UNIT SUBCUT (21:52)
[2024-04-30] MEDS: Atorvastatin Calcium 80 MG TABLET PO (21:52)
[2024-04-30] MEDS: Ezetimibe 10 MG TABLET PO (22:10)
[2024-04-30] MEDS: 0.9 % Sodium Chloride Flush 3 ML SYRINGE IVFLUSH (23:42)
[2024-05-01] VITALS (11 sets, daily range): BP systolic 140–199; BP diastolic 64–82; PULSE 68–85; RESP 16–20; TEMP 36.2–36.8; O2SAT 92–95; BMI 40.3
[2024-05-01] MEDS: 0.9 % Sodium Chloride 1,000 ML 100 ML IVCONT (01:56)
[2024-05-01 06:32] LABS: MANUAL DIFF FLAG NO
[2024-05-01 06:57] LABS: Basophils Percent Auto 0.3 % (0-2); Eosinophils Absolute Auto 0.3 X10*3/uL (0.0-0.4); Eosinophils Percent Auto 2.1 % (0-4); Hematocrit 37.5 % (37.0-47.0); Hemoglobin 12.7 g/dl (12.0-16.0); Imm Gran Abs Auto 0.11 X10*3/uL (0.00-0.03); Imm Gran Pct Auto 0.8 % (0.0-0.4); Lymphocytes Absolute Auto 2.3 X10*3/uL (1.2-4.9); Lymphocytes Percent Auto 16.7 % (20-40); Mean Corpuscular HGB Conc 33.9 g/dl (31.0-35.0); Mean Corpuscular Hemoglobin 31.7 pg (27.0-33.0); Mean Corpuscular Volume 93.5 fL (80.0-98.0); Mean Platelet Volume 11.4 fL (9.4-12.3); Monocytes Absolute Auto 1.1 X10*3/uL (0.1-1.2); Monocytes Percent Auto 7.8 % (2-11); Neutrophils Absolute Auto 10.2 x10*3/uL (2.0-8.3); Neutrophils Percent Auto 72.3 % (45-73); Platelet Count 198 X10*3/uL (160-400); Red Blood Count 4.01 X10*6/uL (4.20-5.50); Red Cell Distribution Width 13.3 % (11.0-16.0)
--- NOTE | 2024-05-01 07:00 | CA_ITS ---
Transthoracic Echocardiogram Patient (Last, First, Middle): Lilli Yepez A Gender: Female Date of : 1945 Age: 78 Procedure Date: 05/01/2024 Procedure Type: Transthoracic Echocardiogram Location: [facility] Height: 149.86 cm Weight: 90.27 kg BSA: 1.84 m2 Heart Rate: bpm BP: 156 / 64 mmHg Hospital Education Coordinator: Referring MD: Micheal XAVIER Symptoms: tia Study Quality: Adequate ECG Rhythm: Sinus Conclusions: - The left ventricular systolic function is normal. The visually estimated ejection fraction is between 55-60%. - No obvious valvular pathology seen on this study. Findings Left Ventricle Normal left ventricular cavity size. There is mildly increased left ventricular wall thickness. The left ventricular systolic function is normal. The visually estimated ejection fraction is between 55-60%. There is no evidence of regional wall motion abnormalities. Evidence suggests grade I (mild) diastolic dysfunction. Right Ventricle Normal right ventricular cavity size and systolic function. Atria Both atria are normal in size. Aortic Valve The aortic valve was not well visualized. There is no aortic valve stenosis. There is no aortic valve regurgitation. Mitral Valve There is mild mitral annular calcification. There is no mitral valve regurgitation. There is no mitral valve stenosis. Pulmonic Valve The pulmonic valve is likely normal. Tricuspid Valve There is trace tricuspid valve regurgitation. There is no evidence of pulmonary hypertension. Great Vessels The asc aorta is normal in size. Venous The inferior vena cava is normal in size and collapses greater than 50% with inspiration. Pericardium/Pleural There is no evidence of pericardial effusion. Prior Study Comparison No significant change compared to prior study dated: 01/13/2023. Recommendations, Care & Conclusions No obvious valvular pathology seen on this study. Measurements 2D Linear Measurements IVSd: 1.05 0.6-0.9/0.6-1.0 cm LVIDd: 5.00 3.9-5.3/4.2-5.9 cm LVIDd Index: 2.72 2.4-3.2/2.2-3.1 cm/m2 LVIDs: 3.25 2.0-3.6 cm LVPWd: 1.05 0.7-1.1 cm Ao Root: 2.90 2.1-3.5 cm LA Diam: 3.20 2.7-3.8/3.0-4.0 cm LAIDs Index: 1.74 1.5-2.3 cm/m2 LV Mass: 242.23 67-162/88-224 g LV Mass Index: 131.65 43-95/49-115 g/m2 LVOT Diam: 2.00 3.0+(-)1.3 cm 2D Systolic Function EF 4C: 49.70 >55% EF 2C: 51.00 >55% Mitral Valve MV VTI: 0.37 MV Pk Stuart: 1.46 MV Mn Stuart: 0.82 MV Pk Grad: 9.00 MV Mn Grad: 3.00 MV Pk E: 0.81 MV PK A: 1.37 MV Decel Time: 201.00 E/A: 0.60 E'Lateral: 3.59 E'Medial: 3.37 E/E' Med: 24.20 E/E' Lat: 22.70 PHT: 59.00 MVA PHT: 3.73 MVA Continuity: 2.06 Decel Routt: 4.04 Aortic Valve AoV Pk Stuart: 1.40 AoV Mn Stuart: 0.93 AoV VTI: 0.36 AoV Pk Grad: 8.00 Aov Mn Grad: 4.00 ALEKSANDAR Cont.VTI: 2.08 LVOT LVOT Pk Stuart: 0.77 LVOT Mn Stuart: 0.52 LVOT VTI: 0.24 LVOT Pk Grad: 2.00 LVOT Mn Grad: 1.00 LVOT Diam: 2.00 LVOT Area: 3.14 Diastolic Function MV Pk E: 0.81 MV Pk A: 1.37 E/A: 0.60 E'Medial: 3.37 E/E' Med: 24.20 E' Laterial: 3.59 E/E' Lat: 22.70 Right Ventricle TAPSE (mm): 25.00 TVS' Stuart: 13.00 Tricuspid Valve TR Pk Stuart: 2.04 TR Pk Grad: 17.00 RA Press: 3.00 RVSP: 20.00 Great Vessels Aorta Ao Root-2D: 2.90 2.0-3.7 cm Ao Asc: 2.80 2.1-3.4 cm Pulmonary Valve PV Pk Stuart: 0.90 Peak PV Grad: 3.00 Updated in Other Vendor System with Status of Final Rafif Lynn MD electronically signed on 05/02/2024 10:41:16 AM with status of Final
[2024-05-01 07:12] LABS: Blood Urea Nitrogen 32 mg/dL (9-16); Calcium 8.9 mg/dL (8.4-10.2); Creatinine Clr Calc Pharmacy 38.2; Estimated Glomerular Filt Rate 44; Glucose Random 137 mg/dL (60-115)
[2024-05-01 07:27] LABS: Anion Gap 15 (12-20); Carbon Dioxide 21 mmol/L (22-29); Chloride 109 mmol/L (96-108); Potassium 3.7 mmol/L (3.3-5.1); Sodium 141 mmol/L (135-145)
[2024-05-01 07:30] LABS: Glucose, Whole Blood 120 mg/dL (60-115)
[2024-05-01] MEDS: Multivitamin TABLET 1 TAB PO (08:15)
[2024-05-01] MEDS: Aspirin Enteric Coated 81 MG TABLET.DR PO (08:15)
[2024-05-01] MEDS: Metoprolol Tartrate 25 MG TABLET PO (08:15)
[2024-05-01] MEDS: FLUoxetine HCl 20 MG CAPSULE PO (08:15)
--- NOTE | 2024-05-01 09:35 | HO.PM.IMPN ---
Subjective Subjective Date of Service: 05/01/24 Interval History: Seen in follow up for GRISEL Interval history Creat back to baseline. Tolerating clears and crackers. Nausea on transfer this am but no vomiting. Loose mucousy stool x2 this morning. No blood. Hypertensive Review of Systems Review of Systems: Yes all other systems are reviewed and are negative Physical Exam Vital Signs: Vital Signs: Last Vital Signs Temp 97.1 F 05/01/24 07:06 Pulse 76 05/01/24 08:15 Resp 18 05/01/24 07:06 BP 199/78 H 05/01/24 08:15 Pulse Ox 95 05/01/24 07:06 O2 Del Method Room Air 05/01/24 07:06 BMI result Body Mass Index 40.3 Constitutional - Awake and Alert, No apparent distress Eyes - PERRLA, EOMI Cardiovascular - S1S2, RRR, No edema Respiratory - Normal lung expansion, Normal respiratory effort, No respiratory distress, CTA bilaterally Gastrointestinal - NT / ND; +BS; No rebound or guarding Extremities - no calf tenderness bilaterally, no swelling Skin - Warm/Dry Neurological - Alert & oriented x3 Psychological - Appropriate affect Objective Data Active Medications Acetaminophen (Acetaminophen 325 Mg Tablet) 650 mg PO Q6H PRN PRN Reason: Pain, Mild (Pain Scale 1-3) Albuterol Sulfate (Albuterol Sulfate 90 Mcg 8 Gm Inhaler) 2 puff INHALE Q6H PRN PRN Reason: wheezing Amlodipine Besylate (Amlodipine Besylate 10 Mg Tablet) 10 mg PO DAILY [facility]; Protocol Aspirin (Aspirin Enteric Coated 81 Mg Tablet.) 81 mg PO DAILY [facility] Last Admin: 05/01/24 08:15 Dose: 81 mg Documented By: CHERRI Atorvastatin Calcium (Atorvastatin Calcium 80 Mg Tablet) 80 mg PO BEDTIME [facility] Last Admin: 04/30/24 21:52 Dose: 80 mg Documented By: ANSELMO Ezetimibe (Ezetimibe 10 Mg Tablet) 10 mg PO BEDTIME [facility] Last Admin: 04/30/24 22:10 Dose: 10 mg Documented By: ANSELMO Comments: late arrival from pharmacy Enoxaparin Sodium (Enoxaparin Sodium 30 Mg/0.3 Ml Syringe) 30 mg SUBCUT Q24H [facility] Last Admin: 04/30/24 16:56 Dose: 30 mg Documented By: NIMISHA Fluoxetine HCl (Fluoxetine Hcl 20 Mg Capsule) 20 mg PO DAILY [facility] Last Admin: 05/01/24 08:15 Dose: 20 mg Documented By: CHERRI Fluticasone Propionate (Fluticasone Propionate Nasal 16 Gm [place]) 1 spray NOSTRIL-B DAILY PRN PRN Reason: Allergy Symptoms Glucose (Glucose Gel 15 Gm Gel..Gram.) 15 gm PO Q15M PRN; Protocol PRN Reason: per Hypoglycemia Standing Ord. Sodium Chloride (Ns) 1,000 mls @ 100 mls/hr IVCONT .Q10H [facility] Last Admin: 05/01/24 01:56 Dose: 100 mls/hr Documented By: THA Dextrose (D10) 250 mls @ 750 mls/hr IV Q15M PRN; Protocol PRN Reason: per Hypoglycemia Standing Ord. Insulin Glargine (Insulin Glargine,Hum.Rec.Anlog 100 Unit/Ml 10 Ml Vial) 25 unit SUBCUT BEDTIME [facility] Last Admin: 04/30/24 21:52 Dose: 25 unit Documented By: ANSELMO Insulin Human Lispro (Insulin Lispro 100 Unit/Ml 3 Ml Vial) 0 unit SUBCUT QIDACHS [facility]; Protocol Last Admin: 05/01/24 07:35 Dose: Not Given Documented By: CHERRI Non-Admin Reason: No Insulin Coverage Loratadine (Loratadine 10 Mg Tablet) 10 mg PO DAILY PRN PRN Reason: Allergy Symptoms Magnesium Hydroxide (Milk Of Magnesia 30 Ml Oral.Susp) 30 ml PO DAILY PRN PRN Reason: Constipation Metoprolol Tartrate (Metoprolol Tartrate 25 Mg Tablet) 25 mg PO BID [facility]; Protocol Last Admin: 05/01/24 08:15 Dose: 25 mg Documented By: CHERRI Mirabegron (Mirabegron 25 Mg Tab.Er.24h) 25 mg PO BEDTIME [facility] Last Admin: 04/30/24 21:52 Dose: 25 mg Documented By: ANSELMO Multivitamins/Vitamin C (Multivitamin Tablet) 1 tab PO DAILY [facility] Last Admin: 05/01/24 08:15 Dose: 1 tab Documented By: CHERRI Nitroglycerin (Nitroglycerin 0.4 Mg Tab.Subl) 0.4 mg SUBLINGUAL Q5M PRN PRN Reason: chest pain Ondansetron HCl (Ondansetron Hcl 4 Mg/2 Ml Vial) 4 mg IVPUSH Q8H PRN PRN Reason: Nausea and Vomiting Last Admin: 04/30/24 20:18 Dose: 4 mg Documented By: ANSELMO Sodium Chloride (0.9 % Sodium Chloride Flush 3 Ml Syringe) 3 ml IVFLUSH QSHIFT [facility] Last Admin: 05/01/24 07:35 Dose: Not Given Documented By: CHERRI Non-Admin Reason: IV Running Labs 05/01/24 05:29 05/01/24 05:29 Labs: Laboratory Results - last 24 hr 04/30/24 04/30/24 04/30/24 14:48 16:33 21:00 MCV 94.1 MCH 32.1 MCHC 34.1 RDW 13.5 Plt Count 235 MPV 11.0 Immature Gran % (Auto) 0.7 H Neut % (Auto) 74.2 H Lymph % (Auto) 17.9 L [place] % (Auto) 6.1 Eos % (Auto) 0.8 Baso % (Auto) 0.3 Lymph # (Auto) 2.9 [place] # (Auto) 1.0 Eos # (Auto) 0.1 Baso # (Auto) 0.0 Abs Immat Gran (auto) 0.11 H Absolute Neuts (auto) 11.9 H Absolute Nucleated RBC 0.000 Nucleated RBC % (auto) 0.0 Anion Gap 16 Estim Creat Clear Calc 27.4 Estimated GFR 30 POC Glucose 280 H 263 H Random Glucose 278 H Calcium 9.4 Magnesium 1.9 Total Bilirubin 0.9 Direct Bilirubin 0.3 AST 31 ALT 77 H Alkaline Phosphatase 124 H Total Protein 6.7 Albumin 3.7 Lipase 39 05/01/24 05/01/24 05:29 07:10 MCV 93.5 MCH 31.7 MCHC 33.9 RDW 13.3 Plt Count 198 MPV 11.4 Immature Gran % (Auto) 0.8 H Neut % (Auto) 72.3 Lymph % (Auto) 16.7 L [place] % (Auto) 7.8 Eos % (Auto) 2.1 Baso % (Auto) 0.3 Lymph # (Auto) 2.3 [place] # (Auto) 1.1 Eos # (Auto) 0.3 Baso # (Auto) 0.0 Abs Immat Gran (auto) 0.11 H Absolute Neuts (auto) 10.2 H Absolute Nucleated RBC 0.000 Nucleated RBC % (auto) 0.0 Anion Gap 15 Estim Creat Clear Calc 38.2 Estimated GFR 44 POC Glucose 120 H Random Glucose 137 H Calcium 8.9 Magnesium Total Bilirubin Direct Bilirubin AST ALT Alkaline Phosphatase Total Protein Albumin Lipase Microbiology Microbiology Results: Microbiology 04/29/24 22:26 Blood Culture - Final Blood - Venous Coag negative Staphylococcus 04/30/24 Unknown Urine Culture - Final Urine clean catch - Urine lenz top No growth. 04/29/24 22:25 Blood Culture - Preliminary Blood - Venous No growth after 24 hours. Assessment and Plan (1) Weakness: Status: Acute (2) Vomiting: Status: Acute (3) Leukocytosis: Status: Acute (4) GRISEL (acute kidney injury): Status: Acute Plan 78-year-old female with history of HAYDEE compliant with CPAP, COPD, CKD stage 3, CAD with history of NSTEMI, insulin-dependent type 2 diabetes, diabetic retinopathy, hypertension, hyperlipidemia admitted for further management of acute kidney injury. #Acute kidney injury - resolved -background ckd stage3 -likely prerenal due to GI losses -Creat 1.97--> 1.19. baseline 1.2. BUN 50. -dc fluids- tolerating po -avoid nephrotoxins -monitor I&O -follow renal function/lytes #Acute gastroenteritis -Still nauseas with 2 loose mucousy stools this am. -Send stool studies- gi panel and cdiff pcr pending -Antiemetics prn -would like to try diet advancement. Advance to bland diet as tolerated #Weakness -r/t above -pt eval #Acute leukocytosis- improving -likely 2/2 steroid use as well as reactive from vomiting/dehydration -low suspicion for infection #COPD -no acute exacerbation -continue maintenance inhalers, albuterol prn #HAYDEE -cpap bedtime #INsulin dependent type 2 diabetes -dose adjusted basal insulin -poc glucose, diabetic diet -admlelog on ss, hold metformin #HTN- uncontrolled -hold losartan in setting of grisel -Increase amlodipine to 10mg today, continue metoprolol #CAD/HLD -statin, bb dvt prophylaxis- lovenox dni/dnr d/w Dr. gurrola Pt requires ongoing inpt stay for medication adjustment given significantly elevated blood pressures with home medications being held in setting of GRISEL. Now with loose stool and ongoing nausea. Trialing diet advancement. Will require ongoing monitoring of renal fx and lytes. Quality Stroke Does the patient have a stroke diagnosis?: No VTE Prior VTE?: No VTE Risk Level:: Medical - moderate - high VTE Device Contraindication: Treatment Not Indicated VTE Drug Contraindication: N/A - Med Ordered
[2024-05-01] MEDS: amLODIPine Besylate 10 MG TABLET PO (10:11)
[2024-05-01] MEDS: ondansetron HCL 4 MG/2 ML VIAL IVPUSH (10:11)
--- NOTE | 2024-05-01 11:03 | MHC.CM.PN ---
PT LIVES WITH ELOISA HAS MOW AND HOMEMAKER 1 X WEEKLY SHE HAS OWN RIDE HOME
[2024-05-01 11:18] LABS: Glucose, Whole Blood 309 mg/dL (60-115)
[2024-05-01 11:38] LABS: Glucose, Whole Blood 306 mg/dL (60-115)
--- NOTE | 2024-05-01 11:45 | P.EN_ITS ---
Event Note Date of Service: 05/01/24 Event Note: BUILDING TRADES INSTRUCTOR stroke alert called over head for of new onset slurred speech, slight right- sided facial droop, slight right upper extremity weakness noticed about 11 17 when nurse alerted this provider. Rapid response called around 1125. Last known well time around 10 15. On exam, is noted to have slurred speech, slight right-sided facial droop, slight right upper extremity weakness, cranial nerves otherwise intact, no lower extremity weakness. Slow to follow commands, but finger to nose testing normal. Head CT and CTA head/neck ordered and patient transported down for scans. Discussed with Dr. Arshad, if scans are negative and deficits still present upon return, T and K will be indicated. However, if symptoms resolve, will defer TNK. Passed beside swallow evaluation, no aspirin given as patient may undergo TNK. Time Spent With Patient Time: Total time managing care of this patient today ____ minutes.
[2024-05-01 11:57] LABS: CDiff Gene PCR NEGATIVE (Negative)
[2024-05-01] MEDS: 0.9 % Sodium Chloride 500 ML IV ×2 (11:58→13:13)
--- NOTE | 2024-05-01 12:00 | PC.NURSE ---
DEBATE DIRECTOR Stroke Pt?s LKWL 1015. At 1131 pt observed to have slurred speech, reporting R sided weakness, and poor vision from R eye. Rapid response stroke called at 1132. Vital signs obtained: BP 190/80, HR 72, O2 95% room air, RR 19, POC 306. Pt noted to still have slurred speech and weakness in R arm. Pt still reporting poor vision from R eye. At 1136 a 2nd IV was placed, 20 g R hand. 1 L 0.9% NS bolus ordered and begun. 1137 [facility] and [facility] to [facility]. Orders to transfer pt to [facility] after CT scan. No other orders at this time.
[2024-05-01] MEDS: iohexoL 350 MG/ML 100 ML INFUS..BTL IV (12:08)
[2024-05-01 12:09] LABS: Cholesterol 71 mg/dL (<200); HDL Cholesterol 26 mg/dL (>40); LDL Cholesterol Calculated 8 mg/dL (<100); Triglycerides 189 mg/dL (<150)
[2024-05-01 12:14] LABS: Adenovirus F 40/41 Not Detected (Not Detect.); Astrovirus Not Detected (Not Detect.); Campylobacter Not Detected (Not Detect.); Cryptosporidium Not Detected (Not Detect.); Cyclospora cayetanensis Not Detected (Not Detect.); E. coli EAEC Not Detected (Not Detect.); E. coli EPEC Not Detected (Not Detect.); E. coli ETEC Not Detected (Not Detect.); E. coli STEC Not Detected (Not Detect.); Entamoeba histolytica Not Detected (Not Detect.); Giardia lamblia Not Detected (Not Detect.); Norovirus GI/GII Not Detected (Not Detect.); Plesiomonas shigelloides Not Detected (Not Detect.); Rotavirus A Not Detected (Not Detect.); Salmonella Not Detected (Not Detect.); Sapovirus Not Detected (Not Detect.); Shigella sp./EIEC Not Detected (Not Detect.); Vibrio Not Detected (Not Detect.); Vibrio Cholerae Not Detected (Not Detect.); Yersinia enterocolitica Not Detected (Not Detect.)
[2024-05-01] MEDS: Insulin Lispro 100 UNIT/ML 3 ML VIAL SUBCUT ×3 (12:19→22:06)
[2024-05-01] MEDS: Labetalol HCL 100 MG/20 ML VIAL IVPUSH (12:30)
[2024-05-01] MEDS: Aspirin 81 MG TAB.CHEW 243 MG PO (13:12)
[2024-05-01 13:30] LABS: INTERNATIONAL NORM RATIO 1.1 (0.9-1.1); Prothrombin Time 13.8 SEC (11.1-13.3)
[2024-05-01 13:33] LABS: Partial Thromboplastin Time 26.9 SEC (26.0-36.8)
[2024-05-01 13:51] LABS: Troponin-I High Sensitivity 3.9 ng/L (<3.5-17.0)
[2024-05-01 13:52] LABS: Estimated Average Glucose 280 mg/dL; Hemoglobin A1c % 11.4 % (<6.0)
--- NOTE | 2024-05-01 14:00 | P.CNNE_ITS ---
History of Present Illness Data of Consult Service Date: 05/01/24 Primary Care Provider: Nahid Waterman MD [facility] Reason for consult: Stroke like Sx This is a 78-year-old female with history of HAYDEE compliant with CPAP, COPD, CKD stage 3, CAD with history of NSTEMI, insulin-dependent type 2 diabetes, diabetic retinopathy, macular degeneration, hypertension, hyperlipidemia presented to the ED with general malaise and weakness, lightheadedness, generalized weakness, vomiting and dry heaves ongoing since yesterday. She does state she has been nauseous for the last 3 days with anorexia. She was recently diagnosis COPD exacerbation and completed prednisone course on Monday and doxycycline on Monday. No fevers, chills. This morning she developed slurred speech like she was drunk and was noted to have some right facial droop and RUE weakness. She had a stat Ct and CTA under stroke protocol. No acute stroke seen . diffuse intracranial disease particularly in the veretebral artery on the left. She had a previous stroke an dha ssome left sided resiual weakness per daugheter and caregiver. The right facial droop and limb weakness resolved , but the speech remains slightly thick. She complains of generalized weakness. TNK was not used because of minor speech deficit and vague Hx of generalized weakness and no occlusions seen on CTA. MRI brain is pending. [facility] Past Medical History Medical History Stenosis of left subclavian artery Multiple falls Macular degeneration Overactive bladder Chest tightness Abnormal nuclear stress test Cataract HAYDEE on CPAP Mild anemia Hypercholesterolemia Resting tremor Osteoarthritis Unsteady gait Vertigo Sleep apnea Diabetic retinopathy Hiatal hernia Depression COPD (chronic obstructive pulmonary disease) CKD (chronic kidney disease) Orthostatic hypotension NSTEMI (non-ST elevated myocardial infarction) Syncope HLD (hyperlipidemia) CAD (coronary artery disease) High cholesterol Diabetes Heart attack Stroke Family History Family History Father CVD (cardiovascular disease) Mother Brain aneurysm Surgical History Surgical History Status post cardiac catheterization History of cataract extraction Hx of colonoscopy Hx of vaginal hysterectomy Stented coronary artery History of cardiac catheterization Social History Social History Household Members: Significant Other Housing: Apartment Are you a primary lead care manager to a significant other at home: No Do you presently have visiting nurse or other home services: No Unable to assess alcohol history related to: Unknown Alcohol intake: never Patient Tobacco Use Status: Former Tobacco user Tobacco use type: Cigarette Cigarettes Per Day: 1.5 Years Smoked: 50 e-Cigarette/Vaping Use: Former Use Second Hand Smoke Exposure: No Advance Directives Date on File: 01/18/23 service: No Current occupational status: retired Meds Allergies Allergy/AdvReac Type Severity Reaction Status Date / Time adhesive tape Allergy Mild Unknown Verified 04/29/24 21:29 bee pollen [bee stings] Allergy Mild Swelling Verified 04/29/24 21:29 oxycodone [OXYCODONE] Allergy Mild ITCHING, Verified 04/29/24 21:29 itchy hydromorphone [From DILAUDID] AdvReac Mild ITCHING Verified 04/29/24 21:29 Active Medications: Current Medications Acetaminophen (Acetaminophen 325 Mg Tablet) 650 mg PO Q6H PRN PRN Reason: Pain, Mild (Pain Scale 1-3) Albuterol Sulfate (Albuterol Sulfate 90 Mcg 8 Gm Inhaler) 2 puff INHALE Q6H PRN PRN Reason: wheezing Amlodipine Besylate (Amlodipine Besylate 10 Mg Tablet) 10 mg PO DAILY [facility]; Protocol Last Admin: 05/01/24 10:11 Dose: 10 mg Aspirin (Aspirin Enteric Coated 81 Mg Tablet.) 81 mg PO DAILY [facility] Last Admin: 05/01/24 08:15 Dose: 81 mg Atorvastatin Calcium (Atorvastatin Calcium 80 Mg Tablet) 80 mg PO BEDTIME [facility] Last Admin: 04/30/24 21:52 Dose: 80 mg Ezetimibe (Ezetimibe 10 Mg Tablet) 10 mg PO BEDTIME [facility] Last Admin: 04/30/24 22:10 Dose: 10 mg Enoxaparin Sodium (Enoxaparin Sodium 30 Mg/0.3 Ml Syringe) 30 mg SUBCUT Q24H [facility] Last Admin: 05/01/24 12:23 Dose: Not Given Fluoxetine HCl (Fluoxetine Hcl 20 Mg Capsule) 20 mg PO DAILY [facility] Last Admin: 05/01/24 08:15 Dose: 20 mg Fluticasone Propionate (Fluticasone Propionate Nasal 16 Gm [place]) 1 spray NOSTRIL-B DAILY PRN PRN Reason: Allergy Symptoms Glucose (Glucose Gel 15 Gm Gel..Gram.) 15 gm PO Q15M PRN; Protocol PRN Reason: per Hypoglycemia Standing Ord. Dextrose (D10) 250 mls @ 750 mls/hr IV Q15M PRN; Protocol PRN Reason: per Hypoglycemia Standing Ord. Sodium Chloride (Ns) 1,000 mls @ 75 mls/hr IVCONT .[id number] [facility] Insulin Glargine (Insulin Glargine,Hum.Rec.Anlog 100 Unit/Ml 10 Ml Vial) 25 unit SUBCUT BEDTIME [facility] Last Admin: 04/30/24 21:52 Dose: 25 unit Insulin Human Lispro (Insulin Lispro 100 Unit/Ml 3 Ml Vial) 0 unit SUBCUT QIDACHS [facility]; Protocol Last Admin: 05/01/24 12:19 Dose: 8 unit Loratadine (Loratadine 10 Mg Tablet) 10 mg PO DAILY PRN PRN Reason: Allergy Symptoms Magnesium Hydroxide (Milk Of Magnesia 30 Ml Oral.Susp) 30 ml PO DAILY PRN PRN Reason: Constipation Metoprolol Tartrate (Metoprolol Tartrate 25 Mg Tablet) 25 mg PO BID [facility]; Protocol Last Admin: 05/01/24 08:15 Dose: 25 mg Mirabegron (Mirabegron 25 Mg Tab.Er.24h) 25 mg PO BEDTIME [facility] Last Admin: 04/30/24 21:52 Dose: 25 mg Multivitamins/Vitamin C (Multivitamin Tablet) 1 tab PO DAILY [facility] Last Admin: 05/01/24 08:15 Dose: 1 tab Nitroglycerin (Nitroglycerin 0.4 Mg Tab.Subl) 0.4 mg SUBLINGUAL Q5M PRN PRN Reason: chest pain Ondansetron HCl (Ondansetron Hcl 4 Mg/2 Ml Vial) 4 mg IVPUSH Q8H PRN PRN Reason: Nausea and Vomiting Last Admin: 05/01/24 10:11 Dose: 4 mg Sodium Chloride (0.9 % Sodium Chloride Flush 3 Ml Syringe) 3 ml IVFLUSH QSHIFT [facility] Last Admin: 05/01/24 12:31 Dose: Not Given Home Medications ?Medication ?Instructions ?Recorded ?Confirmed ?Last Taken ?Type atorvastatin 80 mg tablet 80 mg PO BEDTIME 12/08/20 04/30/24 04/29/24 History ezetimibe 10 mg tablet 10 mg PO BEDTIME 12/08/20 04/30/24 04/29/24 History fluoxetine 20 mg capsule 20 mg PO DAILY 12/08/20 04/30/24 04/29/24 History losartan 100 mg tablet 100 mg PO DAILY 12/08/20 04/30/24 04/29/24 History metformin 500 mg tablet 500 mg PO BIDWM 12/08/20 04/30/24 04/29/24 History metoprolol tartrate 25 mg tablet 25 mg PO BID 12/08/20 04/30/24 04/29/24 History pen needle, diabetic 32 gauge x #50 ea 05/25/21 11/07/23 Unknown History albuterol sulfate 90 mcg/actuation 2 puff inhalation Q6H PRN wheezing 01/10/23 04/30/24 Unknown History aerosol inhaler acetaminophen 325 mg tablet 650 mg PO Q6H PRN Pain 04/30/24 04/30/24 Unknown History (Tylenol) amlodipine 2.5 mg tablet 2.5 mg PO DAILY@1200 04/30/24 04/30/24 04/29/24 History aspirin 81 mg tablet,delayed 81 mg PO DAILY 04/30/24 04/30/24 04/29/24 History release fluticasone propionate 50 1 spray intranasal DAILY PRN 04/30/24 04/30/24 Unknown History mcg/actuation nasal Allergy Symptoms spray,suspension loratadine 10 mg tablet 10 mg PO DAILY PRN Allergy Symptoms 04/30/24 04/30/24 Unknown History mirabegron 25 mg tablet,extended 25 mg PO BEDTIME 04/30/24 04/30/24 04/29/24 History release 24 hr (Myrbetriq) vit C 250 mg-vit E 90 mg-zinc 40 1 tab PO BID 04/30/24 04/30/24 04/29/24 History mg-copper 1 [id number] capsule (PreserVision AREDS-2) Physical Exam 2 Vital Signs: Vital Signs: Last Vital Signs Temp 97.2 F 05/01/24 13:02 Pulse 84 05/01/24 13:02 Resp 20 05/01/24 13:02 BP 156/64 H 05/01/24 13:02 Pulse Ox 94 05/01/24 13:02 O2 Del Method Room Air 05/01/24 13:02 BMI result Body Mass Index 40.3 Neuro: Other: She is alert and oriented x3. There is no dysphagia or word finding difficulty, but his speech is slightly thickened slurred. Cranial nerves II through XII are normal the visual vega could not be adequately tested. In the presence of her baseline visual impairment. There is no facial droop. There is a slight pronation drift of the left upper extremity with left-sided weakness, 4+/5, which according to my understanding is old. Plantar response are flexor. Results Labs 05/01/24 05:29 05/01/24 05:29 Labs: Short CBC 04/30/24 05/01/24 Range/Units 14:48 05:29 WBC 16.0 H 14.0 H (4.8-10.8) X10*3/uL Hgb 14.1 12.7 (12.0-16.0) g/dl Hct 41.3 37.5 (37.0-47.0) % Plt Count 235 198 (160-400) X10*3/uL BMP 04/30/24 05/01/24 14:48 05:29 Sodium 137 141 Potassium 4.7 3.7 D Chloride 100 109 H Carbon Dioxide 26 21 L BUN 52 H 32 H Creatinine 1.66 H 1.19 Calcium 9.4 8.9 Liver Function 04/30/24 Range/Units 14:48 Total Bilirubin 0.9 (0.0-1.0) mg/dL Direct Bilirubin 0.3 (0.0-0.5) mg/dL AST 31 (5-31) U/L ALT 77 H (0-31) U/L Alkaline Phosphatase 124 H (39-117) U/L Albumin 3.7 (3.5-5.0) g/dL Microbiology Microbiology Results: Microbiology 04/29/24 22:26 Blood - Venous Blood Culture - Final Coag negative Staphylococcus 04/30/24 Unknown Urine clean catch - Urine lenz top Urine Culture - Final No growth. 04/29/24 22:25 Blood - Venous Blood Culture - Preliminary No growth after 24 hours. Assessment and Plan (1) Slurred speech: Status: Acute Possible minor small vessel infarct. Deficits are not bad enough to used TNK. Her history is also somewhat vague. She has pre-existing left-sided weakness. 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 She needs management of her medical problems including her renal failure her sugar control and treatment of UTI. Recommendation MRI of the brain to assess for a new infarct. Aspirin 81 mg a day. atorvastatin 80 mg a day. Procedures Date of Service Date of Service: 05/01/24
[2024-05-01] MEDS: 0.9 % Sodium Chloride 1,000 ML 75 ML IVCONT (14:13)
[2024-05-01] MEDS: Loperamide HCl 2 MG CAPSULE PO (15:49)
[2024-05-01 16:24] LABS: Appearance Urine Clear; Color Urine Yellow; Glucose Urine UA 250 mg/dL (Negative); Leukocyte Esterase Urine Negative (Negative); Nitrite Urine Negative (Negative); PH 5.5 (5.0-9.0); Specific Gravity - Urine 1.015 (1.005-1.025); Urine Blood Negative (Negative); Urine Ketones Negative (Negative); Urine Protein Negative (Neg-Trace)
--- NOTE | 2024-05-01 16:31 | MHC.SLORD ---
Speech Language Pathology Order Status: AQUATICS DIRECTOR consult received; per DUC Dee, order for speech mainly however pt is also reporting s/s dysphagia (globus sensation, coughing w/ liquids). AQUATICS DIRECTOR attempted to see pt 2x this afternoon. Pt occupied w/other professionals at those times. DUC reports pt's speech has improved. AQUATICS DIRECTOR to see pt for both dyspagia and speech. Pt may benefit from outpatient MBSS if experiencing chronic dysphagia symptoms/globus sensation.
[2024-05-01 16:58] LABS: Glucose, Whole Blood 156 mg/dL (60-115)
--- NOTE | 2024-05-01 17:35 | MHC.SP.ADU ---
Referring provider: Michela Dee Reason for Referral: slurred speech, reported globus sensation Type of Treatment: [id number] Clinical Swallowing Evaluation Date of Plan of Treatment: 05/01/24 Onset of Symptoms/Illness: 11/20/19 Date Treatment Started: 05/01/24 Medical Diagnosis: (1) Weakness: Status: Acute (2) Vomiting: Status: Acute (3) Leukocytosis: Status: Acute (4) GRISEL (acute kidney injury): Status: Acute Primary Speech Language Diagnosis: R13.10 Dysphagia Secondary Speech Language Diagnosis: History Pt is 78 year old female who reported to ED on 04/29 w/ weakness, nausea, vomiting. Pt had rapid response called in AM on 05/01; presenting w/ slurred speech and R sided weakness. Pt had head CT, head and neck CT, and brain MRI during current hospitalization. Pt had CVA (L side?) approximately 10 years ago. RN and PA report that pt is reporting difficulty w/ fluids, globus sensation, feeling like water is pooling in throat, coughing. Pt reporting some of these symptoms as chronic. Brain MRI Impression: 1. No acute intracranial abnormalities. 2. Moderate underlying microangiopathy and generalized cerebral volume loss. Chronic lacunar infarcts of the cerebellum. Medical History: Stenosis of left subclavian artery Multiple falls Macular degeneration Overactive bladder Chest tightness Abnormal nuclear stress test Cataract HAYDEE on CPAP Mild anemia Hypercholesterolemia Resting tremor Osteoarthritis Unsteady gait Vertigo Sleep apnea Diabetic retinopathy Hiatal hernia Depression COPD (chronic obstructive pulmonary disease) CKD (chronic kidney disease) Orthostatic hypotension NSTEMI (non-ST elevated myocardial infarction) Syncope HLD (hyperlipidemia) CAD (coronary artery disease) High cholesterol Diabetes Heart attack Stroke Hx tobacco use Respiratory Needs: Room Air Patient Orientation: Alert & Oriented x 4 Social History: Employment Status: Unknown Highest level of education obtained: Unknown/Unable to report Current Living Situation: Per EMR, in home w/ spouse Assistive Devices in use: UNK Past Speech Language Therapy: Family reported pt likely saw DENTAL FINANCIAL COORDINATOR following CVA ~10 years ago but did not have any DENTAL FINANCIAL COORDINATOR tx for dysphagia/lang/word finding after hospitalization Other Therapies Seen in Current Calendar Year: Unknown Swallowing History: Dysphagia Specific: Pharyngeal Dysphagia Comments: Self reporting globus sensation, mostly w/ liquids. She reports no difficulty w/ solids, stating the the only thing she is unable to eat w/ upper dentures only is an apple. Pt seen for clinical swallow eval at bedside w/ DENTAL FINANCIAL COORDINATOR. She tolerated sips of thin liquid via cup, reporting intermittently that liquids were pooling. She frequently produced burp after swallow. She tolerated applesauce, darlene cracker dipped in applesauce, and bite sized pieces of dry darlene cracker w/ timely mastication. Very minimal intermittent throat clear during meals, continue to monitor. Reflux Symptom Index was completed; scoring 24. A score greater than or equal to 13 is clinically significant and may be indicative of significant reflux disease. Pt and family deny any hx of reflux. Hiatal hernia noted in hx, which was also denied by pt and family. Pre-eval Risk for Aspiration: Pre-evaluation Dietary Consistencies: Chopped/Advanced (NDD3) Pre-eval Liquid Intake: Thin Pre-eval Medication Intake: Whole with Liquid Reported Speech, Language, Cognition difficulties: Speaking Swallowing Assessment Speech Production: Observations: In conversation, speech presenting as WFL. When testing motor speech, pt demonstrated difficulty w/ both AMRs and SMRs. Both were slow and uncoordinated. She reported that she could not remember the sounds when asked to produce [id number] together. Recommend further evaluation of motor speech. Informal Voice Assessment: Voice Loudness: Normal Voice Nasal Resonance: Normal Voice Oral Resonance: Normal Voice Phonatory-based Quality: Normal Voice Pitch: Normal Clinicial Observations: No concerns w/ vocal quality Impressions and Recommendations Summary: Recommend patient continue with CHOPPED/ADVANCED solids and THIN liquids. Recommend larger pills CRUSHED if possible, d/t patient report of pills sometimes getting stuck. Patient would benefit from MBSS d/t chronic self-reported symptoms of dysphagia. Recommend GI consultation for reflux d/t reported symptoms and clinically significant RSI score of >13. DENTAL FINANCIAL COORDINATOR to continue to follow for dysphagia and for further evaluation of speech. Recommendation for Speech Therapy: Inpatient Speech Therapy Recommended Referrals to be Discussed with Primary Care Provider: GI Consult Recommend GI consultation for ?reflux Patient Education: Completed: Yes Patient/Caregiver Education: Described Results of Evaluation Patient expressed understanding of evaluation Patient agrees with goals and treatment plan Comments/Barriers to Learning: Pt hesitant to do MBSS, worried that she will be put on mush food. Further education recommended. Pharmacovigilance Safety Expert Clinican/Clinical Fellow: No Supervisory Statement: N/A Speech Language Pathologist: Kandi Bowden M.A., CCC-DENTAL FINANCIAL COORDINATOR
--- NOTE | 2024-05-01 17:56 | PC.NURSE ---
informed md of pt's bp and neuro change. pt having worsening slurred speech and increased word finding difficulty. md assessing pt at bedside.
--- NOTE | 2024-05-01 18:24 | P.EN_ITS ---
Event Note Date of Service: 05/01/24 Event Note: Patient again exhibiting slurred/garbled speech with slight word-finding difficulty, minimal overall, as well as observed right-sided facial droop and right upper extremity weakness with positive drift though arm did not hit bed. She is oriented x3 and able to describe situation, knows why she is hospital and can tell me medical history. Family at bedside noting recurrence of symptoms around 1800. ON exam, noted above, otherwise CN II-XII intact, visual vega baseline (has known macular degeneration in R eye). RUE drift but arm does not hit bed, RUE and RLE strength otherwise in tact. Has baseline LUE/LLE weakness from prior stroke unchanged. Normal finger to nose testing. POC 156. BP 176/86. Reviewed prior imaging as patient had similar symptoms earlier. MRI brain negative. CTA without LVO. She does have chronic appearing infarcts within the greater on right cerebellar hemispheres and moderate global cerebral volume loss and mild chronic microangiopathic changes. There is marked calcific plaques of the proximal intradural vertebral arteries contributing to severe bilateral luminal narrowing as well as left intradural vertebral artery diminutive following the takeoff of the left PICA and largely occluded but again findings are chronic. There are moderate stenosis of the left posterior communicating artery, proximal right P2 segment, and proximal inferior right M2 MCA division. Atherosclerosis contributing to mild luminal narrowing of the bilateral ICA origins and severe near occlusive stenosis of the right external carotid artery origin moderate to severe stenosis of the left external carotid artery origin, again chronic findings. Discussed with lubrication equipment servicer neuro, Dr. Baeza, no indication to pursue further imaging. Add plavix 75mg now and continue daily. Time Spent With Patient Time: Total time managing care of this patient today ____ minutes.
[2024-05-01 21:00] LABS: Glucose, Whole Blood 301 mg/dL (60-115)
[2024-05-01] MEDS: Ezetimibe 10 MG TABLET PO (22:03)
[2024-05-01] MEDS: Atorvastatin Calcium 80 MG TABLET PO (22:03)
[2024-05-01] MEDS: Clopidogrel Bisulfate 75 MG TABLET PO (22:04)
[2024-05-01] MEDS: Insulin Glargine,Hum.rec.anlog 100 UNIT/ML 10 ML VIAL 30 UNIT SUBCUT (22:05)
[2024-05-01] MEDS: Mirabegron 25 MG TAB.ER.24H PO (22:05)
[2024-05-01] MEDS: Enoxaparin Sodium 30 MG/0.3 ML SYRINGE SUBCUT (23:11)
[2024-05-02 03:45] VITALS: BP 151/67; PULSE 80; RESP 20; TEMP 36.6; O2SAT 94
[2024-05-02] MEDS: 0.9 % Sodium Chloride 1,000 ML 75 ML IVCONT (04:58)
[2024-05-02 07:40] VITALS: BP 164/74; PULSE 82; RESP 19; TEMP 36.2; O2SAT 95
[2024-05-02 08:04] LABS: Glucose, Whole Blood 161 mg/dL (60-115)
[2024-05-02 08:10] LABS: Anion Gap 10 (12-20); Blood Urea Nitrogen 14 mg/dL (9-16); Calcium 8.3 mg/dL (8.4-10.2); Carbon Dioxide 21 mmol/L (22-29); Chloride 111 mmol/L (96-108); Creatinine Clr Calc Pharmacy 47.3; Estimated Glomerular Filt Rate 56; Glucose Random 173 mg/dL (60-115); Potassium 3.3 mmol/L (3.3-5.1); Sodium 139 mmol/L (135-145)
[2024-05-02] MEDS: Insulin Lispro 100 UNIT/ML 3 ML VIAL SUBCUT ×4 (08:12→20:17)
[2024-05-02] MEDS: Clopidogrel Bisulfate 75 MG TABLET PO (08:12)
[2024-05-02] MEDS: Multivitamin TABLET 1 TAB PO (08:12)
[2024-05-02] MEDS: Aspirin Enteric Coated 81 MG TABLET.DR PO (08:12)
[2024-05-02] MEDS: 0.9 % Sodium Chloride Flush 3 ML SYRINGE IVFLUSH ×3 (08:13→20:18)
[2024-05-02 09:18] VITALS: BP 164/74; PULSE 82; O2SAT 95
--- NOTE | 2024-05-02 11:03 | MHC.SL.SOA ---
Referring Provider: Michela Dee Reason for Referral: slurred speech, reported globus sensation Date of Plan of Treatment:05/01/24 Onset of Symptoms/Illness:11/20/19 Date Treatment Started:05/01/24 Medical Diagnosis:(1) Weakness: Status: Acute (2) Vomiting: Status: Acute (3) Leukocytosis: Status: Acute (4) GRISEL (acute kidney injury): Status: Acute Primary Speech Language Diagnosis:R13.10 Dysphagia Secondary Speech Language Diagnosis: Number of Authorized Visits Remaining: Authorization End Date: Reason for Visit:[id number] Individual Treatment Other: Subjective:Patient seen this morning for follow-up speech language assessment, having had a brief screening of motor speech yesterday. Patient was awake and alert seated upright in bed, finishing her coffee and had present in room. Patient reported that she was feeling much better this morning after a very difficult day yesterday. She reported that her speech was back to normal but had been very slurred yesterday, and reported that her tongue had felt twisted. She was aware that all of the tests that came back yesterday were negative for any new stroke, and she had been told it was likely a TIA. As testing began, she noted that she was visually impaired due to macular degeneration, in both eyes, right eye worse than left. Objective: Patient was administered subtests of the [place] Diagnostic Aphasia Exam, Short form. Assessment:Patient identified 14/15 items on the short form of the BNT, with one error likely due to visual impairment v. word recall. On following both simple and complex directions, patient demonstrated 100% accuracy; on complex y/n questions, she demonstrated 100% accuracy, on simple receptive/auditory vocabulary/symbol ID, she demonstrated 100% accuracy. On automatic sequences, she demonstrated 100% accuracy, but noted that she needed to closely monitor what she was saying when counting in order. On repeating, words and phrases, she was noted to have some mild difficulty with complex, multisyllabic words ( Mandaeism Hoahaoism ) as well as complex consonant clusters ( sphinx ), which was interpreted as baseline behavior. Patient overall is demonstrating expected/appropriate language and speech skills, with mostly clear and articulate speech production and no evidence of word finding difficulty at this time. No further specific speech or language therapy services are indicated at this time or at next level of care. ROOFING MACHINE TENDER will continue to monitor dysphagia diet status/toleration while inpatient. Notes: Plan: Goal # : Status of Goal: Goal # : Status of Goal: Goal # : Status of Goal: Goal # : Status of Goal: Seen by: Graduate/Clinical Fellow: No Supervisory Statement: f_Reg Query Last Value , MHC.AU.SIGNATUR Speech Language Pathologist: Hoa Yu M.A., [facility]-ROOFING MACHINE TENDER
[2024-05-02 11:37] VITALS: BP 141/75; PULSE 86; RESP 18; TEMP 36.4; O2SAT 94
[2024-05-02 12:16] LABS: Glucose, Whole Blood 277 mg/dL (60-115)
--- NOTE | 2024-05-02 13:32 | P.PNIM_ITS ---
Subjective Subjective Date of Service: 05/02/24 Interval History: Seen and examined this morning Follow-up for GRISEL, gastroenteritis, TIA Intermittent nausea but no vomiting or diarrhea Review of Systems Review of Systems: Yes all other systems are reviewed and are negative Constitutional Constitutional: Denies fever(s) Cardiovascular Cardiovascular: Denies chest pain and Denies dyspnea Respiratory Respiratory: Denies dyspnea Gastrointestinal Gastrointestinal: Denies abdominal pain Physical Exam 2 Vital Signs: Vital Signs: Last Vital Signs Temp 97.5 F 05/02/24 11:37 Pulse 86 05/02/24 11:37 Resp 18 05/02/24 11:37 BP 141/75 H 05/02/24 11:37 Pulse Ox 94 05/02/24 11:37 O2 Del Method Room Air 05/02/24 11:37 BMI result Body Mass Index 40.3 Const: General: cooperative, comfortable, alert and awake Nutritional Appearance: obese Orientation/consciousness: patient oriented x3 Resp: Effort & Inspection: normal respiratory effort and able to speak in complete sentences Cardio: Rate: regular rate GI: Inspection: No distended Palpation (GI): Soft to palpation Neuro: General: patient oriented x3 and moves all extremities Extrem: General: Yes no pedal edema Objective Data Active Medications Acetaminophen (Acetaminophen 325 Mg Tablet) 650 mg PO Q6H PRN PRN Reason: Pain, Mild (Pain Scale 1-3) Albuterol Sulfate (Albuterol Sulfate 90 Mcg 8 Gm Inhaler) 2 puff INHALE Q6H PRN PRN Reason: wheezing Amlodipine Besylate (Amlodipine Besylate 10 Mg Tablet) 10 mg PO DAILY [facility]; Protocol Last Admin: 05/01/24 10:11 Dose: 10 mg Documented By: CHERRI Aspirin (Aspirin Enteric Coated 81 Mg Tablet.) 81 mg PO DAILY [facility] Last Admin: 05/02/24 08:12 Dose: 81 mg Documented By: MARY Atorvastatin Calcium (Atorvastatin Calcium 80 Mg Tablet) 80 mg PO BEDTIME [facility] Last Admin: 05/01/24 22:03 Dose: 80 mg Documented By: JENNIFER Clopidogrel Bisulfate (Clopidogrel Bisulfate 75 Mg Tablet) 75 mg PO DAILY [facility] Last Admin: 05/02/24 08:12 Dose: 75 mg Documented By: MARY Ezetimibe (Ezetimibe 10 Mg Tablet) 10 mg PO BEDTIME [facility] Last Admin: 05/01/24 22:03 Dose: 10 mg Documented By: JENNIFER Enoxaparin Sodium (Enoxaparin Sodium 40 Mg/0.4 Ml Syringe) 40 mg SUBCUT Q24H [facility] Fluoxetine HCl (Fluoxetine Hcl 20 Mg Capsule) 20 mg PO DAILY [facility] Last Admin: 05/01/24 08:15 Dose: 20 mg Documented By: CHERRI Fluticasone Propionate (Fluticasone Propionate Nasal 16 Gm [place]) 1 spray NOSTRIL-B DAILY PRN PRN Reason: Allergy Symptoms Glucose (Glucose Gel 15 Gm Gel..Gram.) 15 gm PO Q15M PRN; Protocol PRN Reason: per Hypoglycemia Standing Ord. Dextrose (D10) 250 mls @ 750 mls/hr IV Q15M PRN; Protocol PRN Reason: per Hypoglycemia Standing Ord. Sodium Chloride (Ns) 1,000 mls @ 75 mls/hr IVCONT .[id number] [facility] Last Admin: 05/02/24 04:58 Dose: 75 mls/hr Documented By: JENNIFER Insulin Glargine (Insulin Glargine,Hum.Rec.Anlog 100 Unit/Ml 10 Ml Vial) 30 unit SUBCUT BEDTIME [facility] Last Admin: 05/01/24 22:05 Dose: 30 unit Documented By: JENNIFER Insulin Human Lispro (Insulin Lispro 100 Unit/Ml 3 Ml Vial) 0 unit SUBCUT QIDACHS [facility]; Protocol Last Admin: 05/02/24 13:10 Dose: 6 unit Documented By: MARY Loperamide HCl (Loperamide Hcl 2 Mg Capsule) 2 mg PO Q4H PRN PRN Reason: Diarrhea Last Admin: 05/01/24 15:49 Dose: 2 mg Documented By: RADHA Loratadine (Loratadine 10 Mg Tablet) 10 mg PO DAILY PRN PRN Reason: Allergy Symptoms Magnesium Hydroxide (Milk Of Magnesia 30 Ml Oral.Susp) 30 ml PO DAILY PRN PRN Reason: Constipation Metoprolol Tartrate (Metoprolol Tartrate 25 Mg Tablet) 25 mg PO BID [facility]; Protocol Last Admin: 05/01/24 08:15 Dose: 25 mg Documented By: CHERRI Mirabegron (Mirabegron 25 Mg Tab.Er.24h) 25 mg PO BEDTIME [facility] Last Admin: 05/01/24 22:05 Dose: 25 mg Documented By: JENNIFER Multivitamins/Vitamin C (Multivitamin Tablet) 1 tab PO DAILY [facility] Last Admin: 05/02/24 08:12 Dose: 1 tab Documented By: MARY Nitroglycerin (Nitroglycerin 0.4 Mg Tab.Subl) 0.4 mg SUBLINGUAL Q5M PRN PRN Reason: chest pain Omeprazole (Omeprazole 20 Mg Capsule.Dr) 20 mg PO DAILY@0630 [facility] Ondansetron HCl (Ondansetron Hcl 4 Mg/2 Ml Vial) 4 mg IVPUSH Q8H PRN PRN Reason: Nausea and Vomiting Last Admin: 05/01/24 10:11 Dose: 4 mg Documented By: CHERRI Sodium Chloride (0.9 % Sodium Chloride Flush 3 Ml Syringe) 3 ml IVFLUSH QSHIFT [facility] Last Admin: 05/02/24 08:13 Dose: 3 ml Documented By: MARY Labs 05/01/24 05:29 05/02/24 07:15 Labs: Laboratory Results - last 24 hr 05/01/24 05/01/24 05/01/24 13:12 16:00 16:55 Hold Purple Top PT 13.8 H INR 1.1 APTT 26.9 Anion Gap Estim Creat Clear Calc Estimated GFR POC Glucose 156 H Random Glucose Estimat Average Glucose 280 Hemoglobin A1c % 11.4 H Calcium Troponin I High Sens 3.9 Urine Color Yellow Urine Appearance Clear Urine pH 5.5 Ur Specific [place] 1.015 Urine Protein Negative Urine Glucose (UA) 250 H Urine Ketones Negative Urine Blood Negative Urine Nitrite Negative Ur Leukocyte Esterase Negative 05/01/24 05/02/24 05/02/24 20:56 07:15 07:57 Hold Purple Top SEE NOTE PT INR APTT Anion Gap 10 L Estim Creat Clear Calc 47.3 Estimated GFR 56 POC Glucose 301 H 161 H Random Glucose 173 H Estimat Average Glucose Hemoglobin A1c % Calcium 8.3 L D Troponin I High Sens Urine Color Urine Appearance Urine pH Ur Specific [place] Urine Protein Urine Glucose (UA) Urine Ketones Urine Blood Urine Nitrite Ur Leukocyte Esterase 05/02/24 12:01 Hold Purple Top PT INR APTT Anion Gap Estim Creat Clear Calc Estimated GFR POC Glucose 277 H Random Glucose Estimat Average Glucose Hemoglobin A1c % Calcium Troponin I High Sens Urine Color Urine Appearance Urine pH Ur Specific [place] Urine Protein Urine Glucose (UA) Urine Ketones Urine Blood Urine Nitrite Ur Leukocyte Esterase Microbiology Microbiology Results: Microbiology 04/29/24 22:25 Blood Culture - Preliminary Blood - Venous No growth after 48 hours. Assessment and Plan (1) Globus sensation: Status: Acute (2) GRISEL (acute kidney injury): Status: Acute Plan 78-year-old female with history of HAYDEE compliant with CPAP, COPD, CKD stage 3, CAD with history of NSTEMI, insulin-dependent type 2 diabetes, diabetic retinopathy, hypertension, hyperlipidemia admitted for further management of acute kidney injury. Globus sensation Seen by speech, recommend GI evaluation pending Acute kidney injury - resolved -background ckd stage3 -likely prerenal due to GI losses -dc fluids- tolerating po #Acute gastroenteritis GI panel, C diff negative Tolerating diet # TIA MRI negative, CTA with extensive vascular disease, chronic changes, chronic strokes but no large vessel occlusion Seen by Neurology, recommend dual antiplatelet therapy, statin #Weakness -r/t above -pt eval - PT recommends acute rehab upon discharge #Acute leukocytosis- improving -likely 2/2 recent steroid use as well as reactive from vomiting/dehydration -low suspicion for infection When count trending down #COPD -no acute exacerbation -continue maintenance inhalers, albuterol prn #HAYDEE -cpap bedtime #Insulin dependent type 2 diabetes, uncontrolled Hemoglobin A1c 11.4 Patient states that her blood sugar has been uncontrolled lately as she was recently treated with steroids for COPD exacerbation but normally her blood sugars are under good control -dose adjusted basal insulin -poc glucose, diabetic diet -admlelog on ss, hold metformin #HTN- Losartan initially held for GRISEL, will resume in a.m. at lower dose and titrate prn Resume metoprolol Norvasc on hold for now, can resume as needed #CAD/HLD -statin, bb dvt prophylaxis- lovenox dni/dnr d/w Dr. gurrola Dispo-PT recommends acute rehab Pt requires ongoing inpt stay for medication adjustment given significantly elevated blood pressures with home medications being held in setting of GRISEL. Now with loose stool and ongoing nausea, TIA Quality Stroke Does the patient have a stroke diagnosis?: No VTE Prior VTE?: No VTE Risk Level:: Medical - moderate - high VTE Device Contraindication: Treatment Not Indicated VTE Drug Contraindication: N/A - Med Ordered
[2024-05-02 15:39] VITALS: BP 122/78; PULSE 90; RESP 12; TEMP 36.6; O2SAT 93
[2024-05-02 16:16] LABS: Glucose, Whole Blood 294 mg/dL (60-115)
--- NOTE | 2024-05-02 17:53 | PM.EVENT ---
Event Note Date of Service: 05/02/24 Event Note: GI Consult-Full note dictated. History from the patient, her son, and the medical record. Impression: I suspect her intermittent episodes of oropharyngeal dysphagia and sense of globus are multifactorial in relation to cerebrovascular disease, gastroesophageal reflux with some esophageal spasm, and chronic lung disease with increased mucus secretions. I don't think this represents anything worrisome such as an esophageal neoplasm or esophageal stricture. Recommendations: I do not think she requires any type of urgent endoscopy from a clinical standpoint, particularly in light of her current comorbidities and use of blood thinners. I would recommend the continued use of her PPI to treat any component of reflux and esophageal spasm. I would recommend an eventual routine barium swallow,as well as a modified barium swallow with the Speech and Swallowing team. However, I don't think those need to be done urgently and can be done either through her rehabilitation facility, or can be arranged as an outpatient after she is back home. I told her and her son that I would be happy to follow her as an outpatient and arrange those studies for her if need be. I told her that she could arrange a referral through her primary care physician. She and her son were comfortable with this plan. Thank you for the consultation. Please contact me if she has any other issues during the hospitalization that I can be of assistance with. Time Spent With Patient Time: Total time managing care of this patient today ____ minutes.
[2024-05-02 20:00] VITALS: BP 185/74; PULSE 90; RESP 20; TEMP 36.4; O2SAT 95
[2024-05-02 20:02] LABS: Glucose, Whole Blood 209 mg/dL (60-115)
[2024-05-02] MEDS: Enoxaparin Sodium 40 MG/0.4 ML SYRINGE SUBCUT (20:16)
[2024-05-02] MEDS: Metoprolol Tartrate 25 MG TABLET PO (20:17)
[2024-05-02] MEDS: Atorvastatin Calcium 80 MG TABLET PO (20:17)
[2024-05-02] MEDS: Ezetimibe 10 MG TABLET PO (20:17)
[2024-05-02] MEDS: Insulin Glargine,Hum.rec.anlog 100 UNIT/ML 10 ML VIAL 30 UNIT SUBCUT (20:20)
[2024-05-02] MEDS: Mirabegron 25 MG TAB.ER.24H PO (23:07)
[2024-05-03 03:48] VITALS: BP 148/64; PULSE 74; RESP 20; TEMP 36.1; O2SAT 97
--- NOTE | 2024-05-03 04:25 | CONS_ITS ---
DATE OF SERVICE: 05/02/2024 REASON FOR CONSULTATION: Gastroesophageal reflux and dysphagia. HISTORY OF PRESENT ILLNESS: This has been obtained from the patient, her son, and the medical record. The patient is a 78-year-old female with multiple underlying medical problems including cerebrovascular disease with associated history of stroke and TIA, as well as other medical conditions including COPD and diabetes. She was admitted here several days ago with some dehydration in relation to nausea and vomiting that she attributes to a COPD exacerbation and the use of some antibiotics and steroids. While here, she has been describing a sense of globus at the level of the sternal notch, as well as some intermittent episodes of a sense of dysphagia while drinking liquids. She describes that this has been happening at home as well and predates the hospitalization. She denies any difficulties with solid food, but notices that the episodes are primarily with liquids, particularly if they are cold. She reports that this does not occur constantly but do occur intermittently and are bothersome. At times, she feels like she might choke . She does describe some sense of indigestion and belching, although no definitive heartburn. She has had no further episodes of nausea or vomiting here in the hospital. She is hungry. She has not had any particular change in bowel habits, hematochezia, nor melena. She has never had an upper endoscopy or barium swallow. She was evaluated by the speech and swallowing team who recommended a careful diet with small pieces and also recommended a GI consult to evaluate for possible reflux in association with her dysphagia. She is a former smoker but does not use any alcohol. CURRENT MEDICATIONS: Include acetaminophen, albuterol sulfate inhaler, aspirin 81 mg, atorvastatin, clopidogrel, Lovenox, Zetia, Prozac, Flonase p.r.n., insulin, Imodium p.r.n., Claritin p.r.n., Cozaar, metoprolol, Myrbetriq, multivitamin, omeprazole, and Zofran p.r.n. PAST MEDICAL HISTORY: COPD with associated bronchitis, insulin-dependent diabetes mellitus. Cerebrovascular disease with CVA and TIA. Hypertension. Previous NV with coronary artery stents. She has had a , surgery on her left ovary for cyst, breast cysts for benign disease. Sleep apnea, renal insufficiency, retinopathy secondary to diabetes, and hyperlipidemia. Cataract surgery. SOCIAL HISTORY: She lives with her significant other. She does not use any significant amounts of alcohol. Former smoker. FAMILY HISTORY: Noncontributory. REVIEW OF SYSTEMS: CONSTITUTIONAL: She has been feeling better since being here in the hospital with a somewhat better appetite and feeling a little bit stronger. At home, she was having significant fatigue. CARDIAC: No chest pain. PULMONARY: She has been coughing, but no hemoptysis. GI: As above. URINARY: No dysuria, no hematuria. PHYSICAL EXAMINATION: GENERAL: The patient is an elderly, alert, pleasant, comfortable appearing female. SKIN: Warm and dry. Anicteric sclerae. NECK: Supple without lymphadenopathy, nor tenderness. CARDIAC: S1, S2. ABDOMEN: Soft, nondistended, nontender without mass. EXTREMITIES: Without edema. LABORATORY DATA: She does have evidence of cerebrovascular disease on her imaging studies with MRI of the brain. White blood cell count 14,000, hemoglobin 12.7, platelets 198,000. Normal electrolytes. BUN 14, creatinine 0.96. Normal liver profile except for an ALT of 77 and alkaline phosphatase 124. Albumin 3.7. A stool GI panel was negative for any sign of enteric infection. Stool was negative for C difficile. CT scan of her abdomen and pelvis describes a fatty liver, gallstones, diverticulosis and a tiny kidney stone without any hydronephrosis. Abdominal ultrasound involving the primarily right upper quadrant described some gallstones but no biliary obstruction. Fatty liver was again noted. There was no ascites. IMPRESSION: In regard to the patient's symptomatology of her globus, sense of dysphagia to liquids, and some component of reflux, I suspect this is all multifactorial in relation to cerebrovascular disease with some oropharyngeal dysphagia on that basis, gastroesophageal reflux with some esophageal spasm, and her underlying lung disease with increased mucus production. At this point, she is not describing anything worrisome that I think needs an urgent endoscopy and I would be inclined to hold off on that count, particularly in light of all of her comorbidities and use of blood thinners at this time. I would agree with the use of her PPI to treat any component of acid reflux and esophageal spasm on that basis. I advised her that at some point, either through her rehab facility that she is going to be transferred to or as an outpatient, she may benefit from a routine barium swallow and a modified barium swallow with speech and swallowing team for further evaluation of her symptoms. Again, I do not think this would show anything worrisome, but nonetheless it might be helpful to obtain that information. I did advise her that I could certainly follow her as an outpatient and arrange those studies for her if need be. However, maybe they will be arranged to the rehab facility that she is going to be discharged to. I did tell her that she could obtain a referral to see me through her primary care physician once she is back home. I did review all this in detail with the patient and her son and they are comfortable with that plan. Thank you for the consultation. MD TRACEY Rose/BRADFORD / [phone]
[2024-05-03] MEDS: Omeprazole 20 MG CAPSULE.DR PO (06:39)
[2024-05-03 08:00] VITALS: BP 170/74; PULSE 79; RESP 19; TEMP 36.6; O2SAT 94
[2024-05-03 08:14] LABS: Glucose, Whole Blood 148 mg/dL (60-115)
[2024-05-03 08:53] VITALS: BP 170/74; PULSE 79
[2024-05-03] MEDS: Multivitamin TABLET 1 TAB PO (08:53)
[2024-05-03] MEDS: Metoprolol Tartrate 25 MG TABLET PO (08:53)
[2024-05-03 08:54] VITALS: BP 170/74
[2024-05-03] MEDS: Losartan Potassium 50 MG TABLET PO (08:54)
[2024-05-03] MEDS: Clopidogrel Bisulfate 75 MG TABLET PO (08:54)
[2024-05-03] MEDS: Aspirin Enteric Coated 81 MG TABLET.DR PO (08:54)
[2024-05-03] MEDS: 0.9 % Sodium Chloride Flush 3 ML SYRINGE IVFLUSH (08:55)
--- NOTE | 2024-05-03 10:45 | P.CDIM_ITS ---
PROVIDER RESPONSE TEXT: To clarify, the appropriate diagnosis supported by the clinical indicators: Obesity Due to excess calories QUERY TEXT: PHYSICIAN'S DOCUMENTATION REQUEST Date of Query: 05/03/2024 07:51 AM EDT Patient Name: Lilli Yepez Admit Date: 04/30/2024 Dear Kathleen Hernandez, A review of the medical record indicates additional documentation may be needed. Please review below and update the documentation accordingly. Clinical Indicators: Height: 4ft 11in Weight: 90.6kg BMI: 40.3 Other Clinical Notes Supporting Significance of the BMI: Nursing notes Height and Weight: Extreme obe sity Class III If possible, please provide an associated diagnosis related to the abnormal BMI, such as: Obesity Due to excess calories Obesity Due to other cause Specify the other cause Severe or Morbid Obesity With alveolar hypoventilation Severe or Morbid Obesity Without alveolar hypoventilation Other (explain) Clinically unable to determine (explain) Thank you, Analy Layne, CCS, CDIS Use of terms such as suspected, likely, concern for, or probable (associated with a specific diagnosi s that is being evaluated, monitored, or treated as if it exists) are acceptable and can be coded in the inpatient se tting, when documented at the time of discharge. Please use your independent medical judgment in providing your response. THIS QUERY IS PART OF THE PERMANENT MEDICAL RECORD
--- NOTE | 2024-05-03 10:59 | P.DS_ITS ---
DS: Providers Provider Date of Service: 05/03/24 Date of admission: 04/30/24 14:50 Date of discharge: 05/03/24 Primary care physician: Nahid Waterman MD Consults: 05/01/24 12:53 Consult to Neurology Routine Consulting Provider: Brady Arshad Reason for consultation: slurred speech, r facial droop 05/01/24 17:35 Consult to Gastroenterology Routine Consulting Provider: Darryl Salcedo Reason for consultation: globus sensation, RSI >13 per FORMING AND ASSEMBLING SUPERVISOR eval [facility]: Kathleen Hernandez DS: Diagnosis Discharge Diagnosis (1) Globus sensation: Status: Acute (2) GRISEL (acute kidney injury): Status: Acute (3) Slurred speech: Status: Acute DS: Summary Hospital Course Hospital Course: From H&P on the day of admission 78-year-old female with history of HAYDEE compliant with CPAP, COPD, CKD stage 3, CAD with history of NSTEMI, insulin- dependent type 2 diabetes, diabetic retinopathy, hypertension, hyperlipidemia presented to the ED last night with complaints of general malaise, l ightheadedness, generalized weakness, vomiting and dry heaves ongoing since yesterday. She does state she has been nauseous for the last 3 days with anorexia. Denies eating bad foods, recent travel, no one sick at home. She was recently diagnosis COPD exacerbation and completed prednisone course on Monday and doxycycline on Monday. No fevers, chills, st, congestion, abd pain, diarrhea, melena, hematochezia, hematemesis, cough, shortness of breath, lightheadedness, chest pain. On arrival, VSS. On arrival, WBC 17.7, hematology studies otherwise unremarkable. Creatinine arrival 1.92, baseline around 1.2. BUN 52. Electrolyte levels normal except for CO2 20. On arrival glucose 321. AST 42, ALT 94. Repeat chemistry studies pending. Abdominal ultrasound shows hepatic steatosis as well as cholelithiasis without any evidence of acute cholecystitis. Chest x-ray reading pending but appears to be negative for any acute cardiopulmonary abnormality. CT abdomen/pelvis was also ordered but is not available for review. ED provider did call Radiology who does not feel there are any acute findings on the CT abdomen/pelvis. In the ED was given zosyn, duoneb, and ondansetron Globus sensation Seen by speech, tolerating regular diet. Recommended GI evaluation. Patient was started on PPI and was seen by GI. GI recommends to continue PPI and outpatient barium swallow and modified barium swallow. GRISEL on CKD 3. Prerenal due to GI losses. Resolved with IV fluid. Tolerating diet Acute gastroenteritis. Likely viral. GI panel, C diff negative. Symptoms improved. Tolerating diet TIA Patient had 2 episodes of right-sided facial droop with associated right arms weakness and slurred speech and an additional episode with just facial droop. MRI negative, CTA with extensive vascular disease, chronic changes, chronic strokes but no large vessel occlusion. She was Seen by Neurology who recommend dual antiplatelet therapy, statin. she is on aspirin and statin at baseline, Plavix was added. In addition they recommended EEG to rule out possible partial seizure. EEG was obtained but the report is pending at the time of discharge. Recommend outpatient follow-up with Neurology to review results of EEG. Due to extensive intracranial vascular disease, discussed with vascular who recommended outpatient follow-up with [facility] interventional Neurosurgery to see if there was any area amenable to intervention, no need for inpatient intervention. Acute lactic acidosis. not severe sepsis. Due to hypovolemia/hypoperfusion from gi losses as well as metformin use Acute leukocytosis likely 2/2 recent steroid use as well as reactive from vomiting/dehydration. trending down. has been afebrile. urine culture negative. blood cultures 1/2 coag negative staph, likely contaminant. no treatment indicated. incidental findings: left breast finding, enlarged thyroid. outpatient follow up imaging, mammogram, thyroid US recommended Time Attestation Discharge Coordination Time (in mins): 36 Quality: Safe Use of Opioids Does Pt have an Active Cancer Diagnosis on the Problem List?: No Quality: Stroke Does the patient have a stroke diagnosis?: No Physical Exam Vital Signs: Vital Signs: Last Vital Signs Temp 97.8 F 05/03/24 08:00 Pulse 79 05/03/24 08:53 Resp 19 05/03/24 08:00 BP 170/74 H 05/03/24 08:54 Pulse Ox 94 05/03/24 08:00 O2 Del Method Room Air 05/03/24 08:00 O2 Flow Rate 95 05/02/24 20:00 BMI result Body Mass Index 40.3 Const: General: cooperative, comfortable, alert and awake Nutritional Appearance: obese Orientation/consciousness: patient oriented x3 Resp: Effort & Inspection: normal respiratory effort and able to speak in complete sentences Cardio: Rate: regular rate GI: Inspection: No distended Palpation (GI): Soft to palpation Neuro: General: patient oriented x3 and moves all extremities Extrem: General: Yes no pedal edema DS: Data Data Completed and Pending Completed studies during hospitalization [Text1]: Procedures Assistance with Respiratory Ventilation, Less than 24 Consecutive Hours, Continuous Positive Airway Pressure (01/09/23) Labs on day of discharge: Laboratory Results - last 24 hr 05/02/24 05/02/24 05/02/24 12:01 15:53 19:58 POC Glucose 277 H 294 H 209 H 05/03/24 08:00 POC Glucose 148 H Preliminary micro results at discharge 04/29/24 22:25 Blood Culture - Preliminary Blood - Venous No growth after 48 hours. Imaging MRI - head: Radiologist's impression: ITS Impressions Chest X-Ray 04/29/24 22:06 IMPRESSION: No evidence for acute disease in the chest. Abdomen Ultrasound 04/30/24 02:35 IMPRESSION: 1. Hepatic steatosis. 2. Cholelithiasis without additional imaging findings to suggest acute cholecystitis. Abdomen/Pelvis CT 04/30/24 07:27 IMPRESSION: 1. Hepatic steatosis. 2. Cholelithiasis without cholecystitis. 3. Punctate nonobstructing calculus in the upper pole of right kidney. 4. Diverticulosis without diverticulitis. 5. Status post hysterectomy. 6. Focal asymmetry in the lateral aspect of the left breast, correlate with mammography. Fleischner guidelines were followed. Head CT 05/01/24 11:52 IMPRESSION: 1. Unchanged age related cerebral atrophy and ventriculomegaly. 2. No intracranial hemorrhage or skull fracture is seen. 3. No evidence of space occupying lesion could be found. 4. The current plain CT scan of the brain shows no diagnostic evidence of acute cerebral infarction. This critical result was discussed with DUC Holcomb at 1207 hours on 05/01/2024. It was ascertained that the content and urgency of the report was understood at the time of direct communication. Head/Neck CTA 05/01/24 12:08 IMPRESSION: 1. Chronic appearing infarcts within the greater than right cerebellar hemispheres. No intracranial hemorrhage. 2. Moderate global cerebral volume loss and mild chronic microangiopathic changes. 3. Marked calcific plaque of the proximal intradural vertebral arteries contributes to severe bilateral luminal narrowing. The left intradural vertebral artery is diminutive following the takeoff of the left PICA and largely occluded, exhibiting only partial faint contrast opacification. This critical result was discussed with Michela Dee at 12:25 PM on 05/01/2024 and it was ascertained that the content and urgency of the report was understood at the time of direct communication. 4. Moderate stenoses of the left posterior communicating artery, proximal right P2 segment, and proximal inferior right M2 MCA division branch. 5. Atherosclerotic disease contributes to mild (less than 50%) luminal narrowing of the bilateral ICA origins and proximal internal carotid arteries. Severe near occlusive stenosis of the right external carotid artery origin and moderate to severe stenosis of the left external carotid artery origin. 6. Nondiagnostic assessment of the great vessel origins and proximal vertebral arteries. 7. Calcific plaque along the vertebral arteries, contributing to moderate stenosis on the left at the level of C3-C4 and of the left V3 segment. 8. 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 Enlarged multinodular right thyroid gland, not diagnostically assessed due to artifact in this region however further evaluation with thyroid ultrasound is advised. Brain MRI 05/01/24 14:45 IMPRESSION: 1. No acute intracranial abnormalities. 2. Moderate underlying microangiopathy and generalized cerebral volume loss. Chronic lacunar infarcts of the cerebellum. Discharge Plan Discharge Anticipated Discharge Date/Time: 05/03/24 10:58 Patient Disposition: Xfer Inpatient Rehab Fac Discharge Diagnosis: GRISEL Globus sensation TIA versus partial seizure viral gastroenteritis Referrals: [facility] [Other] - 1 Day (ACUTE REHAB) Nahid Waterman MD [Primary Care Provider] - 1 Week Brady Arshad MD [Physician] - 1 Week Discharge Medications: New clopidogrel 75 mg Tablet 75 mg PO DAILY Qty: 30 0RF omeprazole 20 mg Capsule,Delayed Release(Dr/Ec) 20 mg PO DAILY@0630 30 Days Qty: 30 0RF Continued nitroglycerin 0.4 mg tablet, sublingual 0.4 mg sublingual Q5M PRN (Reason: chest pain) Qty: 20 1RF Rx Instructions: do not exceed 3 doses per episode insulin glargine 100 unit/mL (3 mL) insulin pen 35 unit subcut BEDTIME Qty: 15 0RF albuterol sulfate 90 mcg/actuation HFA aerosol inhaler 2 puff INHALATION Q6H PRN (Reason: wheezing) acetaminophen [Tylenol] 325 mg Tablet 650 mg PO Q6H PRN (Reason: Pain) aspirin 81 mg Tablet,Delayed Release (Dr/Ec) 81 mg PO DAILY PreserVision AREDS-2 250-90-40-1 mg Capsule 1 tab PO BID fluticasone propionate 50 mcg/actuation spray,suspension 1 spray intranasal DAILY PRN (Reason: Allergy Symptoms) loratadine 10 mg tablet 10 mg PO DAILY PRN (Reason: Allergy Symptoms) Myrbetriq 25 mg tablet extended release 24 hr 25 mg PO BEDTIME fluoxetine 20 mg capsule 20 mg PO DAILY losartan 100 mg tablet 100 mg PO DAILY metformin 500 mg tablet 500 mg PO BIDWM metoprolol tartrate 25 mg tablet 25 mg PO BID atorvastatin 80 mg tablet 80 mg PO BEDTIME ezetimibe 10 mg tablet 10 mg PO BEDTIME Held amlodipine 2.5 mg tablet 2.5 mg PO DAILY@1200 Hold Instructions: resume if bp remains elevated No Action (DME) pen needle, diabetic 32 gauge x 5/32 needle See Rx Instructions .ROUTE DAILY Qty: 50 Rx Instructions: As directed Discharge Orders: Discharge Order (Routine); Ordered 05/03/24 Ordered By: Kathleen Hernandez Activity on Discharge: As tolerated Stand Alone Forms: Patient Portal Discharge page Print Language: Lithuanian Care Plan Goals: See below Health Concerns: Viral gastroenteritis. Resolved Globus sensation GRISEL. Resolved TIA versus partial seizure Plan of Treatment: For globus sensation symptoms may be due to underlying acid reflux. You have been started on an insulin acid medicine, omeprazole take as prescribed. GI recommends outpatient barium swallow and modified barium swallow. You have been started on dual antiplatelet therapy with aspirin and Plavix. Please take as prescribed. Due to extensive intracranial vascular disease, recommend outpatient evaluation with [facility] interventional neurosurgery to see if amenable to any intervention. recommend outpatient follow up with neurology for results of EEG Incidental findings: Focal asymmetry in the lateral aspect of the left breast, consider outpatient mammogram enlarged right thyroid gland. outpatient thyroid ultrasound recommended Assessment: See discharge summary
[2024-05-03 11:17] VITALS: BP 170/74
[2024-05-03 11:39] VITALS: BP 159/72; PULSE 77; RESP 20; TEMP 36.7; O2SAT 93
[2024-05-03 12:07] LABS: Glucose, Whole Blood 370 mg/dL (60-115)
[2024-05-03] MEDS: Insulin Lispro 100 UNIT/ML 3 ML VIAL SUBCUT (13:31)
--- NOTE | 2024-05-03 13:46 | MHC.SL.SWA ---
Speech Pathologist Impression: Pharyngeal Dysphagia Dysphasia Diet Status: No change Liquid Consistency and Strategies for Safe Swallow: Liquid Intake Recommendation: Thin Liquid Intake Strategies: Small Sips Solid Food Consistency: Dietary Recommendations: Chopped/Advanced (NDD3) Additional Modifications to Solid Foods: Patient appears to be on safest, least restrictive dietary textures, as she has just top dentures and demonstrates slow, prolonged oral phase. Patient reports she needs to wash food down with water. Recommend continue on CHOPPED/ADVANCED (NDD3) diet with THIN liquids, pills whole with liquid, crush larger pills when possible. Patient's speech and language were screened by [employer] yesterday and were deemed to be WFL. Further ST intervention is no longer indicated. Please re-refer with any changes or further concern. Oral Medication Intake: Whole with Liquid Please contact the pharmacy regarding appropriate crushable or liquid drug formulations that are available whenever modified delivery is recommended. Compensatory Strategies and Precautions to be Taken for Safe Swallow: Sitting Upright (90 deg) Small Bites and Sips Alternate Liquids/Solids Rate of Ingestion Change Supervision While Eating and Drinking for Safe Swallow: None Needed Foods to Avoid: Sticky or hard, tough to chew solids Swallowing Recommended Treatments: N/A Recommendation for Speech: D/C Billing And Accounting Staff Assistant Clinican/Clinical Fellow: No Supervisory Statement: I have reviewed and agree with the student/clinical fellow's documentation: N/A Speech Language Pathologist: Kim Ken M.A., [facility]
--- NOTE | 2024-05-03 14:21 | MHC.CM.PN ---
PT MEDICALLY CLEARED FOR DC TO [facility] FOR [facility] FOR TRANSPORT AT 4PM.
== END 2024-05-03 16:23 | DRG 392 ==
LOC: HO.ED 04-30 06:49 → HO.EDOVER 04-30 14:56 → HO.S3 05-01 00:05 → HO.IMC 05-01 11:46
PROVIDERS: Student in an Organized Health Care Education/Training Program; Admitting Provider Physician Assistant; Emergency Provider Emergency Medicine; PCP Internal Medicine; Visit Provider Physician Assistant Medical
DX: A08.4 Viral intestinal infection, unspecified (principal); N17.9 Acute kidney failure, unspecified; E87.21 Acute metabolic acidosis; G45.9 Transient cerebral ischemic attack, unspecified; Z68.41 Body mass index [BMI] 40.0-44.9, adult; N18.30 Chronic kidney disease, stage 3 unspecified; I12.9 Hypertensive chronic kidney disease with stage 1 through stage 4 chronic kidney disease, or unspecified chronic kidney disease; Z66 Do not resuscitate; I25.10 Atherosclerotic heart disease of native coronary artery without angina pectoris; E66.09 Other obesity due to excess calories; J44.9 Chronic obstructive pulmonary disease, unspecified; E78.5 Hyperlipidemia, unspecified; E11.22 Type 2 diabetes mellitus with diabetic chronic kidney disease; R47.81 Slurred speech; R13.12 Dysphagia, oropharyngeal phase; G47.33 Obstructive sleep apnea (adult) (pediatric); I25.2 Old myocardial infarction; E86.1 Hypovolemia; Z20.822 Contact with and (suspected) exposure to COVID-19; Z87.891 Personal history of nicotine dependence; Z79.02 Long term (current) use of antithrombotics/antiplatelets; Z79.84 Long term (current) use of oral hypoglycemic drugs; Z79.82 Long term (current) use of aspirin; Z79.899 Other long term (current) drug therapy
CPT/HCPCS: 0241U; 36415; 70450; 70496; 70498; 70551; 71046; 74176; 76705; 80048; 80053; 80061; 80076; 81001; 81003; 82803; 82947; 83036; 83605; 83690; 83735; 83880; 84484; 85025; 85610; 85730; 87040; 87086; 87147; 87205; 87493; 87507; 92507; 93005; 93306; 94640; 94660; 94799; 95816; 97116; 97162; 97166; 97530; 99285; J1650; J1920; J2405; J2543; Q9957; Q9967

== ENCOUNTER → 2024-04-29 21:31 | Outpatient (BNV) | payer MEDICARE, MEDICAID, SELFPAY | PROVIDERS: Admitting Provider Physician Assistant; Emergency Provider Emergency Medicine; PCP Internal Medicine; Visit Provider Internal Medicine | DX: R94.31 Abnormal electrocardiogram [ECG] [EKG] (principal) | CPT/HCPCS: 93010 ==

== ENCOUNTER 2024-04-30 14:50 | Outpatient (BNV) | payer MEDICARE, MEDICAID, SELFPAY | END 2024-05-01 07:00 | PROVIDERS: Admitting Provider Physician Assistant; Emergency Provider Emergency Medicine; PCP Internal Medicine; Visit Provider Internal Medicine | DX: I34.81 Nonrheumatic mitral (valve) annulus calcification (principal) | CPT/HCPCS: 93306 ==

== ENCOUNTER → 2024-04-30 14:50 | Outpatient (BNV) | payer MEDICARE, MEDICAID, SELFPAY | PROVIDERS: Admitting Provider Physician Assistant; Emergency Provider Emergency Medicine; PCP Internal Medicine; Visit Provider Physician Assistant | DX: N17.9 Acute kidney failure, unspecified (principal); D72.829 Elevated white blood cell count, unspecified; R11.10 Vomiting, unspecified | CPT/HCPCS: 99223; 99232; 99239; 99499 ==

== ENCOUNTER → 2024-04-30 14:50 | Outpatient (BNV) | payer MEDICARE, MEDICAID, SELFPAY | PROVIDERS: Admitting Provider Physician Assistant; Emergency Provider Emergency Medicine; PCP Internal Medicine; Visit Provider Psychiatry & Neurology Neurology | DX: R47.81 Slurred speech (principal) | CPT/HCPCS: 99222 ==

== ENCOUNTER 2024-05-16 12:55 | Inpatient (IN) | payer MEDICARE, MEDICAID, SELFPAY ==
[2024-05-16] VITALS (9 sets, daily range): BP systolic 115–155; BP diastolic 34–62; PULSE 80–98; RESP 14–22; TEMP 36.8–37.7; O2SAT 93–95; BMI 40.0
--- NOTE | ~2024-05-16 | CT_ITS ---
EXAMINATION: CT HEAD WITHOUT CONTRAST CT CERVICAL SPINE WITHOUT CONTRAST CLINICAL INFORMATION: 78-year-old female status post fall with head and neck pain COMPARISON: CT head from 05/01/[address] head and cervical spine from 03/30/2024 TECHNIQUE: CT of the head and cervical spine were performed without intravenous contrast. Multiplanar reformats were rendered and reviewed. This CT examination was performed using dose optimization techniques as appropriate, variously including the following: *Automated exposure control *Adjustment of mA and/or kV according to patient size (this includes techniques or standardized protocols for targeted exams where dose is matched to indication/reason for exam; i.e. extremities or head) *Use of iterative reconstruction technique DLP: 740 mGy-cm for head and 478mGy-cm for cervical spine FINDINGS: CT head: No intracranial hemorrhage, large infarction, or mass lesion is seen. No extra-axial collection is appreciated. Ventricles, sulci and cisterns are mildly prominent due to involutional changes and there are mild patchy periventricular white matter disease as a sequela of microangiopathy. The visualized paranasal sinuses and mastoid air cells are clear. There is no evidence of skull fracture. CT cervical spine: The cervical alignment is normal. There is straightening of cervical lordosis with marginal spurring at the level of C6-C7 and facet arthropathies. The craniocervical junction is normal. The vertebral body heights are maintained. No cervical spine fracture is seen The paraspinal soft tissues are within normal limits. The partially imaged lung apices are clear with features of emphysema. CT/CT cervical spine wo IV con IMPRESSION: CT HEAD: No acute intracranial finding. Sequela of microangiopathy and mild global volume loss CT CERVICAL SPINE: No cervical spine fracture or traumatic malalignment identified. Mild degenerative changes
--- NOTE | ~2024-05-16 | CT_ITS ---
EXAMINATION: CT CHEST, ABDOMEN AND PELVIS WITH CONTRAST CLINICAL INFORMATION: Reason for Exam fall, pain, on thinners COMPARISON: CT abdomen 04/30/2024 CT chest 01/09/2023 TECHNIQUE: Multidetector volumetric imaging was performed from the thoracic inlet through the pubic symphysis following administration of 85 mL of Omnipaque 350. Sagittal and coronal reformatted images were obtained on the technologist's workstation. This CT examination was performed using dose optimization techniques as appropriate, variously including the following: *Automated exposure control *Adjustment of mA and/or kV according to patient size (this includes techniques or standardized protocols for targeted exams where dose is matched to indication/reason for exam; i.e. extremities or head) *Use of iterative reconstruction technique DLP: 900 for the abdomen/pelvis and 566 for the chest (mGy-cm) FINDINGS: CHEST: Lung: The lungs are clear without focal opacity or nodule. [id number] emphysematous changes are seen. Bronchial thickening is present. There is bibasilar atelectasis. Significant motion artifact seen degrading detail Mediastinum: The right lobe of the thyroid is larger than the left. Some small thyroid nodules are partially visualized.. Marked atherosclerotic changes are seen in the aorta and its branches. A left subclavian origin stenosis is suspected. There are prominent mediastinal and hilar lymph nodes seen unchanged with the largest mediastinal node measuring 1.3 cm in the right paratracheal region (23:19) and the largest hilar node measuring 1 cm on the right (23:32). No progressive gross hilar or mediastinal lymphadenopathy. Coronary Artery Calcium: Moderate Pericardium/Pleura: No significant effusion. No pleural mass or thickening. Chest Wall/Axilla: Unremarkable ABDOMEN/PELVIS: Peritoneal Space: No significant free air or free fluid identified. Liver, Gallbladder, Biliary Tree: The liver is normal in size, shape, and attenuation. No focal hepatic lesion or biliary ductal dilatation is present. The gallbladder contains innumerable small layering gallstones but is otherwise unremarkable with no evidence of pericholecystic inflammatory changes. Pancreas: Unremarkable Spleen: Unremarkable Adrenal Glands: Unremarkable Kidneys and Ureters: The kidneys are normal in size, shape, and attenuation. No hydronephrosis, hydroureter, or calculi seen. Multiple small bilateral benign Bosniak class I renal cysts are noted which require no additional imaging or follow-up. No solid renal masses are seen. Bilateral nonspecific perinephric stranding. Bladder: Unremarkable Gastrointestinal Tract: The small and large bowel are unremarkable. The appendix is not seen but there is no evidence of appendicitis evidence of appendicitis. Abdominal Wall: No significant hernia is appreciated. Small rounded hyperattenuating areas in the left abdominal wall likely the sequelae of subcutaneous injections. Lymph Nodes: No retroperitoneal lymphadenopathy. Vascular: Calcific atherosclerotic changes are present in the aorta and iliofemoral vessels. There is no evidence of an abdominal aortic aneurysm.. The IVC appears unremarkable. PELVIC VISCERA: The uterus is not seen. An abnormal adnexal mass is not detected. No free intraperitoneal fluid is present. OSSEUS STRUCTURES: Mild degenerative changes are noted in the spine. No bony destructive lesions are seen. No acute fractures are seen CT/CT abdomen pelvis w IV con IMPRESSION: 1. No evidence of a traumatic injury in the chest, abdomen or pelvis. 2. Incidental note made of emphysema, cholelithiasis, hysterectomy and degenerative changes in the spine. Fleischner guidelines were followed.
--- NOTE | ~2024-05-16 | XR_ITS ---
EXAMINATION: XR CHEST CLINICAL INFORMATION: Cough and shortness of breath COMPARISON: 04/29/2024 TECHNIQUE: 2 views of the chest were obtained. FINDINGS: No significant abnormality is noted involving the heart, lungs, mediastinum, bony thorax or soft tissues. XR/XR chest 2V IMPRESSION: Unremarkable examination, without interval change.
--- NOTE | ~2024-05-16 | XR_ITS ---
EXAMINATION: XR CHEST CLINICAL INFORMATION: Sob COMPARISON: Chest radiograph 05/16/2024 TECHNIQUE: AP view of the chest was obtained. FINDINGS: The lungs are adequately expanded. No dense focal consolidation, significant pleural effusion or pneumothorax. Mild central pulmonary vascular congestion without overt edema. The cardiomediastinal silhouette is within normal limits for technique and unchanged. Aortic arch calcifications again seen. No acute osseous abnormality. XR/XR chest 1V IMPRESSION: Mild central pulmonary vascular congestion without overt edema.
--- NOTE | ~2024-05-16 | NM_ITS ---
PULMONARY PERFUSION ONLY STUDY: CLINICAL INDICATION: Hypoxia. Evaluate for PE. GRISEL. PROCEDURE: Following the intravenous administration of 4.0 millicuries technetium 99m MAA, images of the chest were obtained in multiple projections using a gamma scintiphotographic camera. COMPARISON: Chest radiograph done on 05/16/2024: Chest radiograph shows features of mild pulmonary venous congestion and otherwise bilateral clear lung vega. PERFUSION IMAGES: No segmental perfusion defects or other perfusion abnormalities are noted. NM/NM pul perfusion IMPRESSION: Based on perfusion only modified PIOPED 2 criteria, pulmonary thromboembolism is absent.
--- NOTE | 2024-05-16 13:18 | ECG_ITS ---
Test Reason : FALL Blood Pressure : / mmHG Vent. Rate : 081 BPM Atrial Rate : 081 BPM P-R Int : 142 ms QRS Dur : 080 ms QT Int : 398 ms P-R-T Axes : 063 032 114 degrees QTc Int : 462 ms Sinus rhythm with Premature supraventricular complexes Nonspecific ST and T wave abnormality Abnormal ECG When compared with ECG of 29-APR-2024 21:33, Nonspecific T wave abnormality, worse in Anterolateral leads Referred By: Generic ED Physician Electronically Signed By:ROBERT SOLIMAN MD
[2024-05-16 13:22] LABS: Glucose, Whole Blood 150 mg/dL (60-115)
[2024-05-16 13:48] LABS: MANUAL DIFF FLAG NO
[2024-05-16 13:49] LABS: Basophils Percent Auto 0.3 % (0-2); Eosinophils Absolute Auto 0.2 X10*3/uL (0.0-0.4); Eosinophils Percent Auto 1.4 % (0-4); Hematocrit 31.2 % (37.0-47.0); Imm Gran Abs Auto 0.06 X10*3/uL (0.00-0.03); Imm Gran Pct Auto 0.5 % (0.0-0.4); Lymphocytes Absolute Auto 1.1 X10*3/uL (1.2-4.9); Lymphocytes Percent Auto 9.3 % (20-40); Mean Corpuscular HGB Conc 32.1 g/dl (31.0-35.0); Mean Corpuscular Hemoglobin 31.3 pg (27.0-33.0); Mean Corpuscular Volume 97.5 fL (80.0-98.0); Mean Platelet Volume 10.3 fL (9.4-12.3); Monocytes Absolute Auto 0.9 X10*3/uL (0.1-1.2); Monocytes Percent Auto 7.3 % (2-11); Neutrophils Absolute Auto 9.9 x10*3/uL (2.0-8.3); Neutrophils Percent Auto 81.2 % (45-73); Platelet Count 294 X10*3/uL (160-400); Red Cell Distribution Width 14.5 % (11.0-16.0); White Blood Count 12.1 X10*3/uL (4.8-10.8)
--- NOTE | 2024-05-16 13:53 | ED_ITS ---
HPI - General Adult General Chief complaint: Fall Stated complaint: FALL,94% ON 3LP,+THINNERS PER EMS Time Seen by Provider: 05/16/24 13:53 Source: patient and EMS Mode of arrival: EMS Limitations: no limitations History of Present Illness ED Provider: Evelyn Tran PA-C HPI narrative: Patient is a 78 year old assigned female at with a history of HLD, DM, CAD, and COPD presenting to the emergency department today after a fall. Patient states that she used the toilet, got up, and went down to the floor. Patient states that she has a history of COPD but does not need to be on oxygen at baseline. Patient states that she as recently at [facility]. Patient denies any current dizziness, lightheadedness, abdominal pain, nausea, vomiting, fever, chills, blurry vision, double vision, loss of vision, chest pain, difficulty breathing, shortness of breath, back pain, night sweats, pain with urination, increased urinary frequency, increased urinary urgency, blood in her urine or stool, syncope or a near syncopal episode, bowel incontinence, bladder incontinence, or any other complaints at this time. Onset (ago): hour(s) Relieving factors: none Exacerbating factors: none Associated symptoms: denies other symptoms Treatments prior to arrival: none Related Data Home Medications ?Medication ?Instructions ?Recorded ?Confirmed atorvastatin 80 mg tablet 80 mg PO BEDTIME 12/08/20 04/30/24 ezetimibe 10 mg tablet 10 mg PO BEDTIME 12/08/20 04/30/24 fluoxetine 20 mg capsule 20 mg PO DAILY 12/08/20 04/30/24 losartan 100 mg tablet 100 mg PO DAILY 12/08/20 04/30/24 metformin 500 mg tablet 500 mg PO BIDWM 12/08/20 04/30/24 metoprolol tartrate 25 mg tablet 25 mg PO BID 12/08/20 04/30/24 pen needle, diabetic 32 gauge x #50 ea 05/25/21 11/07/23 albuterol sulfate 90 mcg/actuation 2 puff inhalation Q6H PRN wheezing 01/10/23 04/30/24 aerosol inhaler acetaminophen 325 mg tablet 650 mg PO Q6H PRN Pain 04/30/24 04/30/24 (Tylenol) amlodipine 2.5 mg tablet 2.5 mg PO DAILY@1200 04/30/24 04/30/24 aspirin 81 mg tablet,delayed 81 mg PO DAILY 04/30/24 04/30/24 release fluticasone propionate 50 1 spray intranasal DAILY PRN 04/30/24 04/30/24 mcg/actuation nasal Allergy Symptoms spray,suspension loratadine 10 mg tablet 10 mg PO DAILY PRN Allergy Symptoms 04/30/24 04/30/24 mirabegron 25 mg tablet,extended 25 mg PO BEDTIME 04/30/24 04/30/24 release 24 hr (Myrbetriq) vit C 250 mg-vit E 90 mg-zinc 40 1 tab PO BID 04/30/24 04/30/24 mg-copper 1 [id number] capsule (PreserVision AREDS-2) Previous Rx's ?Medication ?Instructions ?Recorded nitroglycerin 0.4 mg sublingual 0.4 mg sublingual Q5M PRN chest 03/10/22 tablet pain #20 tabs insulin glargine 100 unit/mL (3 35 unit (0.35 mL) subcut BEDTIME 01/20/23 mL) subcutaneous pen #15 mL clopidogrel 75 mg tablet 75 mg PO DAILY #30 tabs 05/03/24 omeprazole 20 mg capsule,delayed 20 mg PO DAILY@0630 30 days #30 05/03/24 release caps Allergies Allergy/AdvReac Type Severity Reaction Status Date / Time adhesive tape Allergy Mild Unknown Verified 05/16/24 13:16 bee pollen [bee stings] Allergy Mild Swelling Verified 05/16/24 13:16 oxycodone [OXYCODONE] Allergy Mild ITCHING, Verified 05/16/24 13:16 itchy prednisone Allergy Unknown Verified 05/16/24 13:16 hydromorphone [From DILAUDID] AdvReac Mild ITCHING Verified 05/16/24 13:16 Review of Systems 2 Constitutional: Constitutional: Reports no additional constitutional complaints, Denies chills, Denies fever(s) and Denies night sweats Eyes: Eyes: Reports no additional eye complaints, Denies blurry vision, Denies change in vision, Denies diplopia, Denies eye discharge, Denies loss of vision and Denies eye pain ENT: Denies dizziness Cardiovascular: Cardiovascular: Reports no additional cardiovascular complaints, Denies chest pain, Denies lightheadedness, Denies Loss of Consciousness and Denies dyspnea Respiratory: Respiratory: Reports no additional respiratory complaints and Denies dyspnea Gastrointestinal: Gastrointestinal: Reports no additional gastrointestinal complaints, Denies abdominal pain, Denies melena, Denies hematochezia, Denies change in bowel habits and Denies change in stool character Genitourinary: Genitourinary: Denies hematuria, Denies urinary frequency, Denies dysuria, Denies urinary incontinence, Denies urinary hesitancy and Denies urinary urgency Musculoskeletal: Musculoskeletal: Reports no additional musculoskeletal complaints, Denies numbness and Denies tingling Neurologic: Denies dizziness, Denies loss of vision, Denies numbness and Denies tingling Psychiatric: Psychiatric: Reports no additional psychiatric complaints Endocrine: Endocrine: Reports no additional endocrine complaints Hematologic/Lymphatic: Hematologic/Lymphatic: Reports no additional hematologic/lymphatic complaints Allergic/Immunologic: Allergic/Immunologic: Reports no additional allergic/immunologic complaints PMFSH Past Medical History Attestation statement: The following information was validated with the patient. Source: old records reviewed and nursing notes reviewed Medical History Stenosis of left subclavian artery Multiple falls Macular degeneration Overactive bladder Chest tightness Abnormal nuclear stress test Cataract HAYDEE on CPAP Mild anemia Hypercholesterolemia Resting tremor Osteoarthritis Unsteady gait Vertigo Sleep apnea Diabetic retinopathy Hiatal hernia Depression COPD (chronic obstructive pulmonary disease) CKD (chronic kidney disease) Orthostatic hypotension NSTEMI (non-ST elevated myocardial infarction) Syncope HLD (hyperlipidemia) CAD (coronary artery disease) High cholesterol Diabetes Heart attack Stroke Surgical History Status post cardiac catheterization History of cataract extraction Hx of colonoscopy Hx of vaginal hysterectomy Stented coronary artery History of cardiac catheterization Family History Family History Father CVD (cardiovascular disease) Mother Brain aneurysm Social History Social History Household Members: Significant Other Housing: Apartment Are you a primary rn complex care to a significant other at home: No Do you presently have visiting nurse or other home services: No Unable to assess alcohol history related to: Unknown Alcohol intake: never Patient Tobacco Use Status: Former Tobacco user Tobacco use type: Cigarette Cigarettes Per Day: 1.5 Years Smoked: 50 Smoked in Last 30 Days: No e-Cigarette/Vaping Use: Former Use Second Hand Smoke Exposure: No Use of substances other than those prescribed or required for medical reasons: No Advance Directives: Yes Advance Directives on File: Yes Advance Directives Date on File: 01/18/23 Do you have a plan to hurt others: No Plan service: No Current occupational status: retired Physical Exam ED Vital Signs: Vital Signs - 24 hr 05/16/24 13:15 05/16/24 14:04 05/16/24 14:55 Temperature 98.4 F 99.9 F 98.6 F Pulse Rate 80 83 87 Respiratory Rate 20 14 20 Blood Pressure 142/47 H 115/54 L Pulse Oximetry 93 93 93 Oxygen Delivery Method Nasal Cannula Nasal Cannula Nasal Cannula Oxygen Flow Rate 2 2 BMI result Body Mass Index 40.0 Const General: cooperative, no acute distress, alert and awake Nutritional Appearance: well nourished Orientation/consciousness: patient oriented x3 Limitations: no limitations HENMT Head: Yes normal to inspection and Yes atraumatic Ears: hearing grossly normal bilaterally and external ears normal General nose exam: Normal external nose present, no nasal discharge noted and no epistaxis Face and sinus: Yes normal facial exam, No abrasion and No laceration Mouth: Normal oral and palatal mucosa present, no drooling and no muffled voice Eyes General: appearance normal, both eyes and all related structures Periorbital: periorbital findings normal Eyelids: Yes eyelids normal Conjunctivae: conjunctivae normal Pupils: Equal, round and reactive pupils present EOM: EOMs intact bilaterally Neck Neck: Yes normal visual inspection, Yes full ROM and Yes no lymphadenopathy Chest Chest palpation & inspection: normal inspection of the chest Resp Effort & Inspection: normal respiratory effort and able to speak in complete sentences GI Inspection: Yes normal to inspection Palpation (GI): Soft to palpation, not firm, nontender and no guarding Neuro General: patient oriented x3 and moves all extremities Cranial nerves: Yes Equal, round and reactive pupils present Cognition (Neuro): normal cognition Motor exam (neuro): 5/5 motor strength present throughout Sensory Exam: Normal double simultaneous stimulation for sensation Coordination: [id number] test normal Extrem General: Yes normal to inspection, Yes full ROM and Yes capillary refill normal Psych Appearance: grossly normal Mental Status: mental status grossly normal Affect: normal affect Attitude: cooperative Thought process: Normal thought process present Thought content: Normal thought content present Insight: Good insight present (Psych) Medications Administered Discontinued Medications Generic Name Dose Route Start Last Admin Trade Name Devang PRN Reason Stop Dose Admin Iohexol 100 ml 05/16/24 14:35 05/16/24 14:35 Iohexol 350 Mg/Ml 100 Ml Infus..Btl IV 05/16/24 14:36 85 ml ONCE ONE Administration Medical Decision Making Medical Decision Making [facility] Narrative: Patient is a 78 year old assigned female at with a history of HLD, DM, CAD, and COPD presenting to the emergency department today after a fall. Patient's physical exam was unremarkable. Patient's blood work showed a chronically elevated WBC count at 12.1, a decreased hgb of 10 (12.7 on 05/01/2024), an elevated BNP of 322, an initial trop of 23.4 and a repeat trop of 20.3. Patient's EKG was unremarkable. Patient's head and c-spine CTs showed no acute process. Patient's CT chest and abdomen/pelvis are pending. I explained my physical exam findings as well as all test results to the patient. I answered all questions asked by the patient. Patient signed out to the evening STEPHIE pending radiologist reads. Differential Diagnosis Differential Diagnoses: The differential diagnosis associated with the presentation includes Fall Anemia COPD Admission/Observation Consideration of admission/observation: Escalation of care including admission/observation considered Patient's disposition will be determined after CT reads are resulted and she is re-evaluated. Lab Data [facility] Lab Attestation statement: I reviewed the patient's lab results. My interpretation of these results are in the [facility] Rationale portion of this note. 05/16/24 13:39 05/16/24 13:39 Labs: Lab Results 05/16/24 05/16/24 05/16/24 Range/Units 13:18 13:39 14:53 WBC 12.1 H (4.8-10.8) X10*3/uL RBC 3.20 L D (4.20-5.50) X10*6/uL Hgb 10.0 L D (12.0-16.0) g/dl Hct 31.2 L (37.0-47.0) % MCV 97.5 (80.0-98.0) fL MCH 31.3 (27.0-33.0) pg MCHC 32.1 (31.0-35.0) g/dl RDW 14.5 (11.0-16.0) % Plt Count 294 D (160-400) X10*3/uL MPV 10.3 (9.4-12.3) fL Immature Gran % (Auto) 0.5 H (0.0-0.4) % Neut % (Auto) 81.2 H (45-73) % Lymph % (Auto) 9.3 L (20-40) % Harding % (Auto) 7.3 (2-11) % Eos % (Auto) 1.4 (0-4) % Baso % (Auto) 0.3 (0-2) % Lymph # (Auto) 1.1 L (1.2-4.9) X10*3/uL Harding # (Auto) 0.9 (0.1-1.2) X10*3/uL Eos # (Auto) 0.2 (0.0-0.4) X10*3/uL Baso # (Auto) 0.0 (0.0-0.2) X10*3/uL Abs Immat Gran (auto) 0.06 H (0.00-0.03) X10*3/uL Absolute Neuts (auto) 9.9 H (2.0-8.3) x10*3/uL Absolute Nucleated RBC 0.000 (0.0-0.012) X10*3/uL Nucleated RBC % (auto) 0.0 (0.0-0.2) /100WBC Sodium 140 (135-145) mmol/L Potassium 5.0 D (3.3-5.1) mmol/L Chloride 105 (96-108) mmol/L Carbon Dioxide 25 (22-29) mmol/L Anion Gap 15 (12-20) BUN 25 H (9-16) mg/dL Creatinine 1.31 (0.5-1.4) mg/dL Estim Creat Clear Calc 34.5 Estimated GFR 39 POC Glucose 150 H (60-115) mg/dL Random Glucose 173 H (60-115) mg/dL Calcium 9.8 D (8.4-10.2) mg/dL Magnesium 1.9 (1.6-2.6) mg/dL Total Bilirubin 0.8 (0.0-1.0) mg/dL AST 46 H (5-31) U/L ALT 32 H (0-31) U/L Alkaline Phosphatase 134 H (39-117) U/L Total Creatine Kinase 44 (26-140) U/L Troponin I High Sens 23.4 H D 20.3 H (<3.5-17.0) ng/L B-Natriuretic Peptide 322 H (<100) pg/mL Total Protein 6.9 (6.5-8.0) g/dL Albumin 3.1 L (3.5-5.0) g/dL Influenza Type A (PCR) NEGATIVE (Negative) Influenza Type B (PCR) NEGATIVE (Negative) RSV RNA Qual (PCR) NEGATIVE (Negative) SARS-CoV-2 RNA (RT-PCR) NEGATIVE (Negative) Independent Interpretation I performed an independent interpretation of an: EKG and CT Scan Interpretation: My interpretation is in agreement with the radiologist's impression of these imaging studies. - EXAMINATION: CT HEAD WITHOUT CONTRAST CT CERVICAL SPINE WITHOUT CONTRAST CLINICAL INFORMATION: 78-year-old female status post fall with head and neck pain COMPARISON: CT head from 05/01/[address] head and cervical spine from 03/30/2024 TECHNIQUE: CT of the head and cervical spine were performed without intravenous contrast. Multiplanar reformats were rendered and reviewed. This CT examination was performed using dose optimization techniques as appropriate, variously including the following: *Automated exposure control *Adjustment of mA and/or kV according to patient size (this includes techniques or standardized protocols for targeted exams where dose is matched to indication/reason for exam; i.e. extremities or head) *Use of iterative reconstruction technique DLP: 740 mGy-cm for head and 478mGy-cm for cervical spine FINDINGS: CT head: No intracranial hemorrhage, large infarction, or mass lesion is seen. No extra-axial collection is appreciated. Ventricles, sulci and cisterns are mildly prominent due to involutional changes and there are mild patchy periventricular white matter disease as a sequela of microangiopathy. The visualized paranasal sinuses and mastoid air cells are clear. There is no evidence of skull fracture. CT cervical spine: The cervical alignment is normal. There is straightening of cervical lordosis with marginal spurring at the level of C6-C7 and facet arthropathies. The craniocervical junction is normal. The vertebral body heights are maintained. No cervical spine fracture is seen The paraspinal soft tissues are within normal limits. The partially imaged lung apices are clear with features of emphysema. CT/CT head/brain wo IV con IMPRESSION: CT HEAD: No acute intracranial finding. Sequela of microangiopathy and mild global volume loss CT CERVICAL SPINE: No cervical spine fracture or traumatic malalignment identified. Mild degenerative changes Dictated By: Shena Sheehan MD Signed By: Electronically signed by Shena Sheehan MD 05/16/24 1558 - Vent. Rate: 081 BPM Atrial Rate: 081 BPM P-R Int: 142 ms QRS Dur: 080 ms QT Int: 398 ms P-R-T Axes: 063 032 114 degrees QTc Int: 462 ms Sinus rhythm with Premature supraventricular complexes Nonspecific ST and T wave abnormality Abnormal ECG When compared with ECG of 29-APR-2024 21:33, Nonspecific T wave abnormality, worse in Anterolateral leads DD/ 1324 Radiology Impression Discussion of test interpretation with radiology: I have reviewed the radiologist's reading. Independent Historian Clinical information obtained from an independent historian. History obtained from or confirmed by: EMS (EMS provided additional history and confirmed the history provided by the patient.) Chronic Conditions Patient?s care impacted by: Diabetes Discharge Plan Discharge Clinical Impression: Anemia Prescriptions: No Action nitroglycerin 0.4 mg tablet, sublingual 0.4 mg sublingual Q5M PRN (Reason: chest pain) Qty: 20 1RF Rx Instructions: do not exceed 3 doses per episode insulin glargine 100 unit/mL (3 mL) insulin pen 35 unit subcut BEDTIME Qty: 15 0RF albuterol sulfate 90 mcg/actuation HFA aerosol inhaler 2 puff INHALATION Q6H PRN (Reason: wheezing) acetaminophen [Tylenol] 325 mg Tablet 650 mg PO Q6H PRN (Reason: Pain) aspirin 81 mg Tablet,Delayed Release (Dr/Ec) 81 mg PO DAILY PreserVision AREDS-2 250-90-40-1 mg Capsule 1 tab PO BID amlodipine 2.5 mg tablet 2.5 mg PO DAILY@1200 Hold Instructions: resume if bp remains elevated fluticasone propionate 50 mcg/actuation spray,suspension 1 spray intranasal DAILY PRN (Reason: Allergy Symptoms) loratadine 10 mg tablet 10 mg PO DAILY PRN (Reason: Allergy Symptoms) Myrbetriq 25 mg tablet extended release 24 hr 25 mg PO BEDTIME clopidogrel 75 mg Tablet 75 mg PO DAILY Qty: 30 0RF omeprazole 20 mg Capsule,Delayed Release(Dr/Ec) 20 mg PO DAILY@0630 30 Days Qty: 30 0RF fluoxetine 20 mg capsule 20 mg PO DAILY losartan 100 mg tablet 100 mg PO DAILY metformin 500 mg tablet 500 mg PO BIDWM metoprolol tartrate 25 mg tablet 25 mg PO BID atorvastatin 80 mg tablet 80 mg PO BEDTIME ezetimibe 10 mg tablet 10 mg PO BEDTIME (DME) pen needle, diabetic 32 gauge x 32 needle See Rx Instructions .ROUTE DAILY Qty: 50 Rx Instructions: As directed Print Language: Setswana
[2024-05-16 14:09] LABS: Alanine Aminotransferase 32 U/L (0-31); Albumin Level 3.1 g/dL (3.5-5.0); Alkaline Phosphatase 134 U/L (39-117); Anion Gap 15 (12-20); Aspartate Amino Transferase 46 U/L (5-31); Bilirubin Total 0.8 mg/dL (0.0-1.0); Blood Urea Nitrogen 25 mg/dL (9-16); Calcium 9.8 mg/dL (8.4-10.2); Carbon Dioxide 25 mmol/L (22-29); Chloride 105 mmol/L (96-108); Creatinine Clr Calc Pharmacy 34.5; Estimated Glomerular Filt Rate 39; Glucose Random 173 mg/dL (60-115); Magnesium 1.9 mg/dL (1.6-2.6); Sodium 140 mmol/L (135-145); Total Protein 6.9 g/dL (6.5-8.0)
[2024-05-16 14:16] LABS: Troponin-I High Sensitivity 23.4 ng/L (<3.5-17.0)
[2024-05-16 14:29] LABS: Influenza A PCR NEGATIVE (Negative); Influenza B PCR NEGATIVE (Negative); Resp Syncy Virus RNA Qual PCR NEGATIVE (Negative); SARS COV2 PCR INHOUSE NEGATIVE (Negative)
[2024-05-16] MEDS: iohexoL 350 MG/ML 100 ML INFUS..BTL IV (14:35)
[2024-05-16 15:08] LABS: B Type Natriuretic Peptide 322 pg/mL (<100)
[2024-05-16 15:16] LABS: Troponin-I High Sensitivity 20.3 ng/L (<3.5-17.0)
[2024-05-16 16:30] LABS: Appearance Urine Clear; Color Urine Yellow; Glucose Urine UA Negative (Negative); Leukocyte Esterase Urine Negative (Negative); Nitrite Urine Negative (Negative); PH 5.5 (5.0-9.0); Specific Gravity - Urine >= 1.030 (1.005-1.025); Urine Blood Negative (Negative); Urine Ketones Negative (Negative); Urine Protein Trace mg/dL (Neg-Trace)
[2024-05-16] MEDS: Albuterol Sulfate 5 MG, Albuterol/Iprat 2.5/0.5MG 3 ML 3 ML INHALE (18:05)
[2024-05-16 18:21] LABS: OBS Int Ctl Valid YES; OBS1 NEGATIVE (NEGATIVE)
[2024-05-16] MEDS: 0.9 % Sodium Chloride 1,000 ML 999 ML IV (18:34)
[2024-05-16 19:34] LABS: D Dimer High Sensitivity 549 NG/ML
[2024-05-16] MEDS: Enoxaparin Sodium 100 MG/ML SYRINGE 90 MG SUBCUT (22:00)
[2024-05-16 22:07] LABS: VBG Base Excess 1.8 mmol/L; VBG HCO3 25 mmol/L (22-26); VBG pCO2 35 mmHg; VBG pH 7.45 (7.32-7.43); VBG pO2 64 mmHg
[2024-05-16 22:11] LABS: INTERNATIONAL NORM RATIO 1.2 (0.9-1.1); Prothrombin Time 14.9 SEC (11.1-13.3)
[2024-05-16 22:14] LABS: Partial Thromboplastin Time 33.3 SEC (26.0-36.8)
[2024-05-16 22:22] LABS: Venous Blood Gas Refer to POC result
--- NOTE | 2024-05-16 23:10 | P.HPHOSP_ITS ---
History of Present Illness Date of Service: 05/16/24 Attending physician on admission: Jena Peters Chief Complaint: Fall Lilli Yepez is a 78 years old woman with past medical history significant for HAYDEE on CPAP, morbid obesity, COPD no home oxygen, hyperlipidemia, type 2 diabetes mellitus insulin, HFpEF, PAD, TIA on Plavix and aspirin was brought to the ED via EMS after she fell down today while she was pulling down her pull-ups before using the toilet. Patient did not remember exactly what happened before losing consciousness. She denied dizziness or chest pain. She does complain of shortness on breath productive cough that has been going on for awhile. She denies headache, palpitations, fever, chills, abdominal pain, nausea, vomiting or constipation. Reported couple of events of diarrhea yesterday and did not report black stools. She was recently discharged from [facility]. She denied tobacco smoking, alcohol abuse illicit drug use. In the ED, she was found to have stable vital signs. She was placed on supplemental oxygen via nasal cannula and currently on 2 liters/minute. There is no tachycardia, hypotension or fever. Blood workup showed leukocytosis of 12.1, hemoglobin is 10.0 (it was 12.7 two weeks ago). There are no significant electrolyte imbalances. BUN is 25 and creatinine 1.31. Troponin is 23.4 --> 20.3 and BNP 322. Glucose is 173. Platelets are normal. UA showed no evidence of urinary tract infection. Viral testing for COVID-19, influenza RSV is negative. CXR negative. Head and C-spine CT scan showed no acute findings. Chest CT scan with IV contrast (no PE protocol) showed no evidence of traumatic injury in the chest, abdomen pelvis; incidental emphysema, cholelithiasis, hysterectomy and degenerative changes. ECG showed normal sinus rhythm, PVCs and no specific ST and T-wave changes. ED tx: NS 1 L bolus, albuterol nebs, Lovenox 90 mcg subcut Review of Systems 2 Review of Systems: All 12 systems were reviewed and normal except as noted in HPI. [facility] Medical History Stenosis of left subclavian artery Multiple falls Macular degeneration Overactive bladder Chest tightness Abnormal nuclear stress test Cataract HAYDEE on CPAP Mild anemia Hypercholesterolemia Resting tremor Osteoarthritis Unsteady gait Vertigo Sleep apnea Diabetic retinopathy Hiatal hernia Depression COPD (chronic obstructive pulmonary disease) CKD (chronic kidney disease) Orthostatic hypotension NSTEMI (non-ST elevated myocardial infarction) Syncope HLD (hyperlipidemia) CAD (coronary artery disease) High cholesterol Diabetes Heart attack Stroke Family History Father CVD (cardiovascular disease) Mother Brain aneurysm Surgical History Status post cardiac catheterization History of cataract extraction Hx of colonoscopy Hx of vaginal hysterectomy Stented coronary artery History of cardiac catheterization Social History Household Members: Significant Other Housing: Apartment Are you a primary critical care physician assistant to a significant other at home: No Do you presently have visiting nurse or other home services: No Unable to assess alcohol history related to: Unknown Alcohol intake: never Patient Tobacco Use Status: Former Tobacco user Tobacco use type: Cigarette Cigarettes Per Day: 1.5 Years Smoked: 50 Smoked in Last 30 Days: No e-Cigarette/Vaping Use: Former Use Second Hand Smoke Exposure: No Use of substances other than those prescribed or required for medical reasons: No Advance Directives: Yes Advance Directives on File: Yes Advance Directives Date on File: 01/18/23 Do you have a plan to hurt others: No Plan service: No Current occupational status: retired Meds Allergies Allergy/AdvReac Type Severity Reaction Status Date / Time adhesive tape Allergy Mild Unknown Verified 05/16/24 13:16 bee pollen [bee stings] Allergy Mild Swelling Verified 05/16/24 13:16 oxycodone [OXYCODONE] Allergy Mild ITCHING, Verified 05/16/24 13:16 itchy prednisone Allergy Unknown Verified 05/16/24 13:16 hydromorphone [From DILAUDID] AdvReac Mild ITCHING Verified 05/16/24 13:16 Active Medications: Current Medications Acetaminophen (Acetaminophen 325 Mg Tablet) 975 mg PO Q6H PRN PRN Reason: Pain, Mild (Pain Scale 1-3), fever or headache Albuterol Sulfate (Albuterol Sulfate (0.083%) 2.5 Mg/3 Ml Vial.Neb) 2.5 mg INHALE Q2H PRN PRN Reason: Shortness of Breath/Wheezing Albuterol/Ipratropium (Albuterol/Iprat 2.5/0.5mg 3 Ml Ampul.Neb) 3 ml INHALE RQ4H WHILE AWAKE [facility] Atorvastatin Calcium (Atorvastatin Calcium 80 Mg Tablet) 80 mg PO ONCE ONE Stop: 05/16/24 23:09 Ezetimibe (Ezetimibe 10 Mg Tablet) 10 mg PO ONCE ONE Stop: 05/16/24 23:09 Glucose (Glucose Gel 15 Gm Gel..Gram.) 15 gm PO Q15M PRN; Protocol PRN Reason: per Hypoglycemia Standing Ord. Dextrose (D10) 250 mls @ 750 mls/hr IV Q15M PRN; Protocol PRN Reason: per Hypoglycemia Standing Ord. Insulin Human Lispro (Insulin Lispro 100 Unit/Ml 3 Ml Vial) 0 unit SUBCUT QIDACHS [facility]; Protocol Pantoprazole Sodium (Pantoprazole Sodium 40 Mg/10 Ml Vial) 40 mg IVPUSH Q12H [facility] Sodium Chloride (0.9 % Sodium Chloride Flush 3 Ml Syringe) 3 ml IVFLUSH QSHIFT [facility] Home Medications ?Medication ?Instructions ?Recorded ?Confirmed ?Last Taken ?Type atorvastatin 80 mg tablet 80 mg PO BEDTIME 12/08/20 04/30/24 04/29/24 History ezetimibe 10 mg tablet 10 mg PO BEDTIME 12/08/20 04/30/24 04/29/24 History fluoxetine 20 mg capsule 20 mg PO DAILY 12/08/20 04/30/24 04/29/24 History losartan 100 mg tablet 100 mg PO DAILY 12/08/20 04/30/24 04/29/24 History metformin 500 mg tablet 500 mg PO BIDWM 12/08/20 04/30/24 04/29/24 History metoprolol tartrate 25 mg tablet 25 mg PO BID 12/08/20 04/30/24 04/29/24 History pen needle, diabetic 32 gauge x #50 ea 05/25/21 11/07/23 Unknown History albuterol sulfate 90 mcg/actuation 2 puff inhalation Q6H PRN wheezing 01/10/23 04/30/24 Unknown History aerosol inhaler acetaminophen 325 mg tablet 650 mg PO Q6H PRN Pain 04/30/24 04/30/24 Unknown History (Tylenol) amlodipine 2.5 mg tablet 2.5 mg PO DAILY@1200 04/30/24 04/30/24 04/29/24 History aspirin 81 mg tablet,delayed 81 mg PO DAILY 04/30/24 04/30/24 04/29/24 History release fluticasone propionate 50 1 spray intranasal DAILY PRN 04/30/24 04/30/24 Unknown History mcg/actuation nasal Allergy Symptoms spray,suspension loratadine 10 mg tablet 10 mg PO DAILY PRN Allergy Symptoms 04/30/24 04/30/24 Unknown History mirabegron 25 mg tablet,extended 25 mg PO BEDTIME 04/30/24 04/30/24 04/29/24 History release 24 hr (Myrbetriq) vit C 250 mg-vit E 90 mg-zinc 40 1 tab PO BID 04/30/24 04/30/24 04/29/24 History mg-copper 1 [id number] capsule (PreserVision AREDS-2) Physical Exam 2 Vital Signs and Narrative: Vital Signs: Last Vital Signs Temp 98.3 F 05/16/24 18:34 Pulse 92 05/16/24 21:58 Resp 21 H 05/16/24 22:59 BP 153/62 H 05/16/24 22:59 Pulse Ox 94 05/16/24 21:58 O2 Del Method Nasal Cannula 05/16/24 18:34 O2 Flow Rate 3 05/16/24 18:34 Oxygen Flow Rate 2 05/16/24 13:15 BMI result Body Mass Index 40.0 Constitutional - Awake and Alert, No apparent distress. Acutely ill appearance. Obese. Pleasant. Cooperative. HEENT - atraumatic head. Normal sclerae. Heart - RRR Lungs - Normal lung expansion, Normal respiratory effort, No respiratory distress. Tachypnea. Bibasilar rhonchi. No crackles. No wheezing. Abdomen - NT / ND; +BS; No rebound or guarding Extremities - no calf tenderness bilaterally, no swelling Musculoskeletal - Normal inspection, normal ROM Skin - Warm/Dry Neurological - Alert & oriented x3. No facial droop. No focal weakness grossly noted. Normal speech. Psychological - Appropriate affect Results Labs 05/16/24 13:39 05/16/24 13:39 Labs: Laboratory Results - last 24 hr 05/16/24 05/16/24 05/16/24 13:18 13:39 14:53 MCV 97.5 MCH 31.3 MCHC 32.1 RDW 14.5 Plt Count 294 D MPV 10.3 Immature Gran % (Auto) 0.5 H Neut % (Auto) 81.2 H Lymph % (Auto) 9.3 L [place] % (Auto) 7.3 Eos % (Auto) 1.4 Baso % (Auto) 0.3 Lymph # (Auto) 1.1 L [place] # (Auto) 0.9 Eos # (Auto) 0.2 Baso # (Auto) 0.0 Abs Immat Gran (auto) 0.06 H Absolute Neuts (auto) 9.9 H Absolute Nucleated RBC 0.000 Nucleated RBC % (auto) 0.0 PT INR APTT D-Dimer High Sensitivty VBG pH VBG pCO2 VBG pO2 VBG HCO3 VBG O2 Saturation VBG Base Excess Anion Gap 15 Estim Creat Clear Calc 34.5 Estimated GFR 39 POC Glucose 150 H Random Glucose 173 H Calcium 9.8 D Magnesium 1.9 Total Bilirubin 0.8 AST 46 H ALT 32 H Alkaline Phosphatase 134 H Total Creatine Kinase 44 Troponin I High Sens 23.4 H D 20.3 H B-Natriuretic Peptide 322 H Total Protein 6.9 Albumin 3.1 L Urine Color Urine Appearance Urine pH Ur Specific [place] Urine Protein Urine Glucose (UA) Urine Ketones Urine Blood Urine Nitrite Ur Leukocyte Esterase Stool Occult Blood Influenza Type A (PCR) NEGATIVE Influenza Type B (PCR) NEGATIVE RSV RNA Qual (PCR) NEGATIVE SARS-CoV-2 RNA (RT-PCR) NEGATIVE 05/16/24 05/16/24 05/16/24 16:23 17:56 19:10 MCV MCH MCHC RDW Plt Count MPV Immature Gran % (Auto) Neut % (Auto) Lymph % (Auto) [place] % (Auto) Eos % (Auto) Baso % (Auto) Lymph # (Auto) [place] # (Auto) Eos # (Auto) Baso # (Auto) Abs Immat Gran (auto) Absolute Neuts (auto) Absolute Nucleated RBC Nucleated RBC % (auto) PT INR APTT D-Dimer High Sensitivty 549 VBG pH VBG pCO2 VBG pO2 VBG HCO3 VBG O2 Saturation VBG Base Excess Anion Gap Estim Creat Clear Calc Estimated GFR POC Glucose Random Glucose Calcium Magnesium Total Bilirubin AST ALT Alkaline Phosphatase Total Creatine Kinase Troponin I High Sens B-Natriuretic Peptide Total Protein Albumin Urine Color Yellow Urine Appearance Clear Urine pH 5.5 Ur Specific [place] >= 1.030 H Urine Protein Trace Urine Glucose (UA) Negative Urine Ketones Negative Urine Blood Negative Urine Nitrite Negative Ur Leukocyte Esterase Negative Stool Occult Blood NEGATIVE Influenza Type A (PCR) Influenza Type B (PCR) RSV RNA Qual (PCR) SARS-CoV-2 RNA (RT-PCR) 05/16/24 05/16/24 21:55 21:59 MCV MCH MCHC RDW Plt Count MPV Immature Gran % (Auto) Neut % (Auto) Lymph % (Auto) [place] % (Auto) Eos % (Auto) Baso % (Auto) Lymph # (Auto) [place] # (Auto) Eos # (Auto) Baso # (Auto) Abs Immat Gran (auto) Absolute Neuts (auto) Absolute Nucleated RBC Nucleated RBC % (auto) PT 14.9 H INR 1.2 H APTT 33.3 D D-Dimer High Sensitivty VBG pH 7.45 H VBG pCO2 35 VBG pO2 64 VBG HCO3 25 VBG O2 Saturation 90.0 VBG Base Excess 1.8 Anion Gap Estim Creat Clear Calc Estimated GFR POC Glucose Random Glucose Calcium Magnesium Total Bilirubin AST ALT Alkaline Phosphatase Total Creatine Kinase Troponin I High Sens B-Natriuretic Peptide Total Protein Albumin Urine Color Urine Appearance Urine pH Ur Specific [place] Urine Protein Urine Glucose (UA) Urine Ketones Urine Blood Urine Nitrite Ur Leukocyte Esterase Stool Occult Blood Influenza Type A (PCR) Influenza Type B (PCR) RSV RNA Qual (PCR) SARS-CoV-2 RNA (RT-PCR) Imaging Radiologist's Impressions: Impressions Abdomen/Pelvis CT 05/16/24 15:19 IMPRESSION: 1. No evidence of a traumatic injury in the chest, abdomen or pelvis. 2. Incidental note made of emphysema, cholelithiasis, hysterectomy and degenerative changes in the spine. Fleischner guidelines were followed. Cervical Spine CT 05/16/24 15:19 IMPRESSION: CT HEAD: No acute intracranial finding. Sequela of microangiopathy and mild global volume loss CT CERVICAL SPINE: No cervical spine fracture or traumatic malalignment identified. Mild degenerative changes Chest CT 05/16/24 15:19 IMPRESSION: 1. No evidence of a traumatic injury in the chest, abdomen or pelvis. 2. Incidental note made of emphysema, cholelithiasis, hysterectomy and degenerative changes in the spine. Fleischner guidelines were followed. Head CT 05/16/24 15:19 IMPRESSION: CT HEAD: No acute intracranial finding. Sequela of microangiopathy and mild global volume loss CT CERVICAL SPINE: No cervical spine fracture or traumatic malalignment identified. Mild degenerative changes Chest X-Ray 05/16/24 16:30 IMPRESSION: Unremarkable examination, without interval change. Assessment and Plan (1) Hypoxic respiratory failure: Qualifiers: Chronicity: acute Qualified Code(s): J96.01 - Acute respiratory failure with hypoxia Status: Acute (2) Anemia: Qualifiers: Anemia type: other cause Other causes of anemia: other cause, not classified Qualified Code(s): D64.89 - Other specified anemias Status: Acute Plan Lilli Yepez is a 78 y/o woman admitted with: * Hypoxic respiratory failure likely secondary to acute exacerbation of COPD, worsening anemia could be contributing. ?Pulmonary embolism. Admit to hospitalist service. Pulse oximetry. Telemetry. Continue bronchodilator therapy. Supplemental O2 to keep O2 sats > 90%. IV steroids. * Worsening anemia. Hgb 12.7 --> 10.0. Stool for occult blood is negative. Protonix 40 mg IV b.i.d.. Continue to monitor. GI consult. * Obstructive sleep apnea. Continue nocturnal CPAP. * Hyperlipidemia. Continue statin and ezetimibe. * Type 2 diabetes mellitus. BG checks before meals at bedtime. Continue Lantus and insulin sliding scale. * TIA. Continue Plavix, statin and aspirin. * Morbid obesity. BMI 40.0 kg/m2. Weight loss. * HFpEF. Not decompensated. * Essential hypertension. Continue metoprolol, amlodipine and losartan. * Depression. Continue Prozac. DVT prophylaxis: SCDs. Patient also taking Plavix and aspirin + received Lovenox. Code status: Full Patient will need hospitalization for at least 2 midnights for hypoxic respiratory failure secondary to COPD exacerbation treatment with bronchodilator therapy, IV steroids and supplemental oxygen. She will also need close monitoring of hemoglobin and evaluation by subspecialty. Quality Stroke Does the patient have a stroke diagnosis?: No VTE Prior VTE?: No VTE Risk Level:: Medical - moderate - high VTE Device Contraindication: Treatment Not Indicated VTE Drug Contraindication: N/A - Med Ordered
[2024-05-17] VITALS (13 sets, daily range): BP systolic 117–157; BP diastolic 46–69; PULSE 72–100; RESP 16–20; TEMP 36–36.3; O2SAT 90–99; BMI 39.5
[2024-05-17 00:16] LABS: Glucose, Whole Blood 141 mg/dL (60-115)
--- NOTE | 2024-05-17 00:21 | MHC.EDTECH ---
pt repositioned off of left side for comfort. pt now in position of comfort and call talbert within reach. patient has no other complaints or needs at this time
[2024-05-17] MEDS: Albuterol/Iprat 2.5/0.5MG 3 ML AMPUL.NEB INHALE ×5 (00:25→20:51)
[2024-05-17] MEDS: Metoprolol Tartrate 25 MG TABLET PO (00:39)
[2024-05-17] MEDS: Ezetimibe 10 MG TABLET PO ×2 (00:39→21:05)
[2024-05-17] MEDS: Atorvastatin Calcium 80 MG TABLET PO ×2 (00:39→21:05)
[2024-05-17] MEDS: methylPREDNISolone Sod Succ 125 MG/2 ML VIAL 60 MG IVPUSH (00:40)
[2024-05-17] MEDS: Insulin Glargine,Hum.rec.anlog 100 UNIT/ML 10 ML VIAL 37 UNIT SUBCUT ×2 (00:40→21:04)
[2024-05-17] MEDS: Pantoprazole Sodium 40 MG/10 ML VIAL IVPUSH ×2 (00:44→12:01)
[2024-05-17] MEDS: 0.9 % Sodium Chloride Flush 3 ML SYRINGE IVFLUSH ×4 (00:46→21:03)
--- NOTE | 2024-05-17 07:25 | PM.GICN ---
History of Present Illness Data of Consult Service Date: 05/17/24 Requesting physician: [facility] Primary Care Provider: Nahid Waterman MD HPI Reason for consult: anemia 78 year old woman with hx of HAYDEE on CPAP, morbid obesity, COPD no home oxygen, hyperlipidemia, type 2 diabetes mellitus insulin, HFpEF, PAD, TIA on Plavix and aspirin who I am seeing for anemia She was initially admitted to ED due to LOC before using the bathroom. SHe does not recall what happened. She denied dizziness or chest pain. She denies headache, palpitations, fever, chills, abdominal pain, vomiting or constipation. she has chronic SOB> no sputum or hemoptysis. No overt GI bleeding, denies melena, hematuria, epistaxis but has had erratic and variable bowel habits last few weeks, along with nausea for 2 weeks. Appetite has been fair. LABS: WCC : 12.1, hemoglobin is 10.0 (it was 12.7 two weeks ago). BUN is 25 and creatinine 1.31. Troponin is 23.4 --> 20.3 and BNP 322. Glucose is 173. Platelets are normal. UA showed no evidence of urinary tract infection. Viral testing for COVID-19, influenza RSV is negative. IMAGING: CXR nml. Head and C-spine CT scan showed no acute findings. Chest CT scan with IV contrast (no PE protocol) showed no evidence of traumatic injury in the chest, CT abdomen pelvis; incidental emphysema, cholelithiasis, hysterectomy and degenerative changes. Review of Systems Review of Systems: Constitutional : No Weight loss, No Fever, No Chills ENT/Mouth : No sore throat, No Rhinorrhea Eyes: No Swelling, No Redness Cardiovascular : No Chest Pain, chronic SOB, No Edema Respiratory : No Cough, No Sputum, No Wheezing Gastrointestinal : see HPI Genitourinary : NO Dysuria, No Urinary Frequency, No Hematuria, No Urgency Musculoskeletal : + joint pain, No Myalgias, No Joint Swelling Skin : No Skin Lesions, No rash Neuro : No Weakness, No Numbness, No Dizziness, No Headache Psych : No Anxiety/Panic, No Depression Heme/Lymph: No Bruising, No Lymphadenopathy Endocrine : No Polyuria, No Polydipsia All other systems reviewed and are negative. [facility] Past Medical History Medical History Stenosis of left subclavian artery Multiple falls Macular degeneration Overactive bladder Chest tightness Abnormal nuclear stress test Cataract HAYDEE on CPAP Mild anemia Hypercholesterolemia Resting tremor Osteoarthritis Unsteady gait Vertigo Sleep apnea Diabetic retinopathy Hiatal hernia Depression COPD (chronic obstructive pulmonary disease) CKD (chronic kidney disease) Orthostatic hypotension NSTEMI (non-ST elevated myocardial infarction) Syncope HLD (hyperlipidemia) CAD (coronary artery disease) High cholesterol Diabetes Heart attack Stroke Family History Family History Father CVD (cardiovascular disease) Mother Brain aneurysm Surgical History Surgical History Status post cardiac catheterization History of cataract extraction Hx of colonoscopy Hx of vaginal hysterectomy Stented coronary artery History of cardiac catheterization Social History Social History Household Members: Significant Other Housing: Apartment Are you a primary school child care attendant to a significant other at home: No Do you presently have visiting nurse or other home services: Yes Unable to assess alcohol history related to: Unknown Alcohol intake: never Patient Tobacco Use Status: Former Tobacco user Tobacco use type: Cigarette Cigarettes Per Day: 1.5 Years Smoked: 50 e-Cigarette/Vaping Use: Former Use Second Hand Smoke Exposure: No Advance Directives Date on File: 01/18/23 service: No Current occupational status: retired Meds Allergies Allergy/AdvReac Type Severity Reaction Status Date / Time adhesive tape Allergy Mild Unknown Verified 05/16/24 13:16 bee pollen [bee stings] Allergy Mild Swelling Verified 05/16/24 13:16 oxycodone [OXYCODONE] Allergy Mild ITCHING, Verified 05/16/24 13:16 itchy prednisone Allergy Unknown Verified 05/16/24 13:16 hydromorphone [From DILAUDID] AdvReac Mild ITCHING Verified 05/16/24 13:16 Active Medications: Current Medications Acetaminophen (Acetaminophen 325 Mg Tablet) 975 mg PO Q6H PRN PRN Reason: Pain, Mild (Pain Scale 1-3), fever or headache Albuterol Sulfate (Albuterol Sulfate (0.083%) 2.5 Mg/3 Ml Vial.Neb) 2.5 mg INHALE Q2H PRN PRN Reason: Shortness of Breath/Wheezing Albuterol/Ipratropium (Albuterol/Iprat 2.5/0.5mg 3 Ml Ampul.Neb) 3 ml INHALE RQ4H WHILE AWAKE [facility] Last Admin: 05/17/24 00:25 Dose: 3 ml Glucose (Glucose Gel 15 Gm Gel..Gram.) 15 gm PO Q15M PRN; Protocol PRN Reason: per Hypoglycemia Standing Ord. Dextrose (D10) 250 mls @ 750 mls/hr IV Q15M PRN; Protocol PRN Reason: per Hypoglycemia Standing Ord. Insulin Glargine (Insulin Glargine,Hum.Rec.Anlog 100 Unit/Ml 10 Ml Vial) 37 unit SUBCUT BEDTIME [facility] Last Admin: 05/17/24 00:40 Dose: 37 unit Insulin Human Lispro (Insulin Lispro 100 Unit/Ml 3 Ml Vial) 0 unit SUBCUT QIDACHS [facility]; Protocol Last Admin: 05/17/24 00:39 Dose: Not Given Pantoprazole Sodium (Pantoprazole Sodium 40 Mg/10 Ml Vial) 40 mg IVPUSH Q12H [facility] Last Admin: 05/17/24 00:44 Dose: 40 mg Sodium Chloride (0.9 % Sodium Chloride Flush 3 Ml Syringe) 3 ml IVFLUSH QSHIFT [facility] Last Admin: 05/17/24 00:46 Dose: 3 ml Home Medications ?Medication ?Instructions ?Recorded ?Confirmed ?Last Taken ?Type atorvastatin 80 mg tablet 80 mg PO BEDTIME 12/08/20 05/17/24 05/16/24 History ezetimibe 10 mg tablet 10 mg PO BEDTIME 12/08/20 05/17/24 05/16/24 History fluoxetine 20 mg capsule 20 mg PO DAILY 12/08/20 05/17/24 05/16/24 History losartan 100 mg tablet 100 mg PO BID 12/08/20 05/17/24 05/16/24 History metformin 500 mg tablet 500 mg PO BIDWM 12/08/20 05/17/24 05/16/24 History pen needle, diabetic 32 gauge x #50 ea 05/25/21 11/07/23 Unknown History albuterol sulfate 90 mcg/actuation 2 puff inhalation Q4-6H PRN 01/10/23 05/17/24 05/16/24 History aerosol inhaler wheezing acetaminophen 325 mg tablet 650 mg PO Q6H PRN Pain 04/30/24 05/17/24 Unknown History (Tylenol) amlodipine 2.5 mg tablet 2.5 mg PO DAILY@1200 04/30/24 05/17/24 05/16/24 History aspirin 81 mg tablet,delayed 81 mg PO DAILY 04/30/24 05/17/24 05/16/24 History release fluticasone propionate 50 1 spray intranasal DAILY 04/30/24 05/17/24 05/16/24 History mcg/actuation nasal spray,suspension loratadine 10 mg tablet 10 mg PO DAILY PRN Allergy Symptoms 04/30/24 05/17/24 Unknown History vit C 250 mg-vit E 90 mg-zinc 40 1 tab PO BID 04/30/24 05/17/24 05/16/24 History mg-copper 1 [id number] capsule (PreserVision AREDS-2) docusate sodium 100 mg capsule 100 mg PO BID PRN Constipation 05/17/24 05/17/24 Unknown History (Colace) insulin glargine 100 unit/mL (3 37 unit subcut BEDTIME 05/17/24 05/17/24 05/16/24 History mL) subcutaneous pen (Basaglar KwikPen U-100 Insulin) metoprolol tartrate 50 mg tablet 50 mg PO BID 05/17/24 05/17/24 05/16/24 History Physical Exam Vital Signs: Vital Signs: Last Vital Signs Temp 96.8 F 05/17/24 06:17 Pulse 75 05/17/24 06:17 Resp 20 05/17/24 06:17 BP 117/55 L 05/17/24 06:17 Pulse Ox 99 05/17/24 06:17 O2 Del Method Nasal Cannula 05/17/24 06:17 O2 Flow Rate 3 05/17/24 06:17 Oxygen Flow Rate 2 05/16/24 13:15 BMI result Body Mass Index 39.5 EXAM: GENERAL: The patient is obese, SOB VITAL SIGNS:see workflow HEENT: Nonicteric sclerae, PERRLA, EOMI. Oropharynx clear. Moist mucous membranes. Conjunctivae appear pale. No thyroid mass. CHEST: Chest wall is nontender. HEART: Regular rate and rhythm without murmurs. LUNGS: Clear to auscultation bilaterally. ABDOMEN: Soft, positive bowel sounds, nontender, no organomegaly.no flank tenderness SKIN: No rash, no excessive bruising, petechiae, or purpura. NEUROLOGIC: Cranial nerves II-XII intact without motor/sensory deficit. Psych: normal affect Results Labs 05/17/24 10:19 05/17/24 10:19 Labs: Short CBC 05/16/24 Range/Units 13:39 WBC 12.1 H (4.8-10.8) X10*3/uL Hgb 10.0 L D (12.0-16.0) g/dl Hct 31.2 L (37.0-47.0) % Plt Count 294 D (160-400) X10*3/uL BMP 05/16/24 13:39 Sodium 140 Potassium 5.0 D Chloride 105 Carbon Dioxide 25 BUN 25 H Creatinine 1.31 Calcium 9.8 D Cardiac Enzymes 05/16/24 Range/Units 13:39 Total Creatine Kinase 44 (26-140) U/L Liver Function 05/16/24 Range/Units 13:39 Total Bilirubin 0.8 (0.0-1.0) mg/dL AST 46 H (5-31) U/L ALT 32 H (0-31) U/L Alkaline Phosphatase 134 H (39-117) U/L Albumin 3.1 L (3.5-5.0) g/dL Urine 05/16/24 Range/Units 16:23 Urine Color Yellow Urine Appearance Clear Urine pH 5.5 (5.0-9.0) Ur Specific [place] >= 1.030 H (1.005-1.025) Urine Protein Trace (Neg-Trace) mg/dL Urine Glucose (UA) Negative (Negative) mg/dL Imaging CT scan - abdomen: Attestation: I personally reviewed and interpreted this imaging study as follows: (GB full of stones, atherosclerosis, spinal degeneration -atrophic appearing pancreas) Assessment and Plan (1) Anemia: Qualifiers: Anemia type: other cause Other causes of anemia: other cause, not classified Qualified Code(s): D64.89 - Other specified anemias Status: Acute Plan 1/ Anemia, whilst on aspirin and plavix but no overt signs of GI bleeding. PLAN: 1/ Discussed possibility of EGD and colonoscopy for further IX but would be high risk given her O2 requirement, she wants to hold on this, and is also not sure if she would want to pursue even non invasive testing If I have a tumour, god put it there 2/ check iron levels, folat, b12 and hemolysis labs, celiac serology 3/ conservative rx with PPI and if iron low then replace Procedures Date of Service Date of Service: 05/17/24
[2024-05-17 07:52] LABS: Glucose, Whole Blood 243 mg/dL (60-115)
[2024-05-17] MEDS: Insulin Lispro 100 UNIT/ML 3 ML VIAL SUBCUT ×4 (08:25→21:04)
--- NOTE | 2024-05-17 08:38 | MHC.CM.PN ---
IMM 05/17/24, Pt lives with her boyfriend, she has services from [facility] 1 x a week, and had just started with VNA (maybe [facility]) following a hosp stay here and Acute rehab stay at [facility]. She would like to go home at [place]. HCP is on file, and confirmed, names, Liliana Vaughan. PCP confirmed: Dr. Waterman. DCP: home with services. CM to follow and assist with DC planning.
--- NOTE | 2024-05-17 09:59 | PHA.MEDREC ---
Pharmacy Consult ? Medication Reconciliation Pharmacy has completed the medication reconciliation. Patient was Just discharged from [facility] [phone] 3 days ago. Utilized list and spoke to patient daughter Claire at beside to confirm meds. Claire was a great historian she was able to confirm patient takes Basaglar 37 units at bedtime. Losartin 100 mg bid. Daughter also stated that patient is no longer on Mybetriq [address] is changing to Oxybutynin but hasn't started yet.
[2024-05-17 10:30] LABS: Basophils Percent Auto 0.2 % (0-2); Hematocrit 29.5 % (37.0-47.0); Hemoglobin 9.4 g/dl (12.0-16.0); Imm Gran Abs Auto 0.08 X10*3/uL (0.00-0.03); Imm Gran Pct Auto 0.8 % (0.0-0.4); Lymphocytes Absolute Auto 0.6 X10*3/uL (1.2-4.9); Lymphocytes Percent Auto 5.9 % (20-40); MANUAL DIFF FLAG SCAN; Mean Corpuscular HGB Conc 31.9 g/dl (31.0-35.0); Mean Corpuscular Hemoglobin 30.9 pg (27.0-33.0); Mean Platelet Volume 10.7 fL (9.4-12.3); Monocytes Absolute Auto 0.1 X10*3/uL (0.1-1.2); Monocytes Percent Auto 1.2 % (2-11); NRBC Pct Auto 0.2 /100WBC (0.0-0.2); Neutrophils Absolute Auto 8.8 x10*3/uL (2.0-8.3); Neutrophils Percent Auto 91.9 % (45-73); Platelet Count 302 X10*3/uL (160-400); Red Blood Count 3.04 X10*6/uL (4.20-5.50); Red Cell Distribution Width 14.4 % (11.0-16.0); SCAN SMEAR FLAG 1; White Blood Count 9.5 X10*3/uL (4.8-10.8)
[2024-05-17 10:50] LABS: Anion Gap 19 (12-20); Blood Urea Nitrogen 24 mg/dL (9-16); Calcium 8.9 mg/dL (8.4-10.2); Carbon Dioxide 18 mmol/L (22-29); Chloride 102 mmol/L (96-108); Creatinine Clr Calc Pharmacy 30.9; Estimated Glomerular Filt Rate 35; Glucose Random 354 mg/dL (60-115); Potassium 4.8 mmol/L (3.3-5.1); Sodium 134 mmol/L (135-145)
[2024-05-17 10:55] LABS: SLIDE REVIEW VERIFIED
[2024-05-17 11:44] LABS: Glucose, Whole Blood 340 mg/dL (60-115)
--- NOTE | 2024-05-17 13:19 | P.PNIM_ITS ---
Subjective Subjective Date of Service: 05/17/24 Interval History: seen and examined this AM reports weakness denies cough/sob Review of Systems Negative except HPI/interval history. Physical Exam 2 Vital Signs: Vital Signs: Last Vital Signs Temp 97.3 F 05/17/24 11:09 Pulse 89 05/17/24 11:22 Resp 18 05/17/24 11:22 BP 137/60 05/17/24 11:09 Pulse Ox 90 L 05/17/24 11:09 O2 Del Method Nasal Cannula 05/17/24 11:09 O2 Flow Rate 1 05/17/24 11:09 Oxygen Flow Rate 2 05/16/24 13:15 BMI result Body Mass Index 39.5 Const: Other: General - no acute distress, appears comfortable Cardiovascular - regular rate and rhythm, S1-S2 Lungs - normal respiratory effort, clear to auscultation bilaterally, no wheezing Abdomen - soft, nontender, no rebound or guarding Extremities - no edema bilaterally Neuro - awake and alert, no focal deficits Objective Data Active Medications Acetaminophen (Acetaminophen 325 Mg Tablet) 975 mg PO Q6H PRN PRN Reason: Pain, Mild (Pain Scale 1-3), fever or headache Albuterol Sulfate (Albuterol Sulfate (0.083%) 2.5 Mg/3 Ml Vial.Neb) 2.5 mg INHALE Q2H PRN PRN Reason: Shortness of Breath/Wheezing Albuterol/Ipratropium (Albuterol/Iprat 2.5/0.5mg 3 Ml Ampul.Neb) 3 ml INHALE RQ4H WHILE AWAKE [facility] Last Admin: 05/17/24 11:20 Dose: 3 ml Documented By: SHER Glucose (Glucose Gel 15 Gm Gel..Gram.) 15 gm PO Q15M PRN; Protocol PRN Reason: per Hypoglycemia Standing Ord. Dextrose (D10) 250 mls @ 750 mls/hr IV Q15M PRN; Protocol PRN Reason: per Hypoglycemia Standing Ord. Insulin Glargine (Insulin Glargine,Hum.Rec.Anlog 100 Unit/Ml 10 Ml Vial) 37 unit SUBCUT BEDTIME [facility] Last Admin: 05/17/24 00:40 Dose: 37 unit Documented By: LUDY Insulin Human Lispro (Insulin Lispro 100 Unit/Ml 3 Ml Vial) 0 unit SUBCUT QIDACHS [facility]; Protocol Last Admin: 05/17/24 12:01 Dose: 8 unit Documented By: CHERIE Pantoprazole Sodium (Pantoprazole Sodium 40 Mg/10 Ml Vial) 40 mg IVPUSH Q12H [facility] Last Admin: 05/17/24 12:01 Dose: 40 mg Documented By: CHERIE Sodium Chloride (0.9 % Sodium Chloride Flush 3 Ml Syringe) 3 ml IVFLUSH QSHIFT [facility] Last Admin: 05/17/24 08:26 Dose: 3 ml Documented By: CHERIE Labs 05/17/24 10:19 05/17/24 10:19 Labs: Laboratory Results - last 24 hr 05/16/24 05/16/24 05/16/24 13:18 13:39 14:53 MCV 97.5 MCH 31.3 MCHC 32.1 RDW 14.5 Plt Count 294 D MPV 10.3 Immature Gran % (Auto) 0.5 H Neut % (Auto) 81.2 H Lymph % (Auto) 9.3 L Gage % (Auto) 7.3 Eos % (Auto) 1.4 Baso % (Auto) 0.3 Lymph # (Auto) 1.1 L Gage # (Auto) 0.9 Eos # (Auto) 0.2 Baso # (Auto) 0.0 Abs Immat Gran (auto) 0.06 H Absolute Neuts (auto) 9.9 H Absolute Nucleated RBC 0.000 Nucleated RBC % (auto) 0.0 Smear Tech's Comments PT INR APTT D-Dimer High Sensitivty VBG pH VBG pCO2 VBG pO2 VBG HCO3 VBG O2 Saturation VBG Base Excess Anion Gap 15 Estim Creat Clear Calc 34.5 Estimated GFR 39 POC Glucose 150 H Random Glucose 173 H Calcium 9.8 D Magnesium 1.9 Total Bilirubin 0.8 AST 46 H ALT 32 H Alkaline Phosphatase 134 H Total Creatine Kinase 44 Troponin I High Sens 23.4 H D 20.3 H B-Natriuretic Peptide 322 H Total Protein 6.9 Albumin 3.1 L Urine Color Urine Appearance Urine pH Ur Specific [place] Urine Protein Urine Glucose (UA) Urine Ketones Urine Blood Urine Nitrite Ur Leukocyte Esterase Stool Occult Blood Influenza Type A (PCR) NEGATIVE Influenza Type B (PCR) NEGATIVE RSV RNA Qual (PCR) NEGATIVE SARS-CoV-2 RNA (RT-PCR) NEGATIVE 05/16/24 05/16/24 05/16/24 16:23 17:56 19:10 MCV MCH MCHC RDW Plt Count MPV Immature Gran % (Auto) Neut % (Auto) Lymph % (Auto) Gage % (Auto) Eos % (Auto) Baso % (Auto) Lymph # (Auto) Gage # (Auto) Eos # (Auto) Baso # (Auto) Abs Immat Gran (auto) Absolute Neuts (auto) Absolute Nucleated RBC Nucleated RBC % (auto) Smear Tech's Comments PT INR APTT D-Dimer High Sensitivty 549 VBG pH VBG pCO2 VBG pO2 VBG HCO3 VBG O2 Saturation VBG Base Excess Anion Gap Estim Creat Clear Calc Estimated GFR POC Glucose Random Glucose Calcium Magnesium Total Bilirubin AST ALT Alkaline Phosphatase Total Creatine Kinase Troponin I High Sens B-Natriuretic Peptide Total Protein Albumin Urine Color Yellow Urine Appearance Clear Urine pH 5.5 Ur Specific [place] >= 1.030 H Urine Protein Trace Urine Glucose (UA) Negative Urine Ketones Negative Urine Blood Negative Urine Nitrite Negative Ur Leukocyte Esterase Negative Stool Occult Blood NEGATIVE Influenza Type A (PCR) Influenza Type B (PCR) RSV RNA Qual (PCR) SARS-CoV-2 RNA (RT-PCR) 05/16/24 05/16/24 05/17/24 21:55 21:59 00:12 MCV MCH MCHC RDW Plt Count MPV Immature Gran % (Auto) Neut % (Auto) Lymph % (Auto) Gage % (Auto) Eos % (Auto) Baso % (Auto) Lymph # (Auto) Gage # (Auto) Eos # (Auto) Baso # (Auto) Abs Immat Gran (auto) Absolute Neuts (auto) Absolute Nucleated RBC Nucleated RBC % (auto) Smear Tech's Comments PT 14.9 H INR 1.2 H APTT 33.3 D D-Dimer High Sensitivty VBG pH 7.45 H VBG pCO2 35 VBG pO2 64 VBG HCO3 25 VBG O2 Saturation 90.0 VBG Base Excess 1.8 Anion Gap Estim Creat Clear Calc Estimated GFR POC Glucose 141 H Random Glucose Calcium Magnesium Total Bilirubin AST ALT Alkaline Phosphatase Total Creatine Kinase Troponin I High Sens B-Natriuretic Peptide Total Protein Albumin Urine Color Urine Appearance Urine pH Ur Specific [place] Urine Protein Urine Glucose (UA) Urine Ketones Urine Blood Urine Nitrite Ur Leukocyte Esterase Stool Occult Blood Influenza Type A (PCR) Influenza Type B (PCR) RSV RNA Qual (PCR) SARS-CoV-2 RNA (RT-PCR) 05/17/24 05/17/24 05/17/24 07:48 10:19 11:39 MCV 97.0 MCH 30.9 MCHC 31.9 RDW 14.4 Plt Count 302 MPV 10.7 Immature Gran % (Auto) 0.8 H Neut % (Auto) 91.9 H Lymph % (Auto) 5.9 L Gage % (Auto) 1.2 L Eos % (Auto) 0.0 Baso % (Auto) 0.2 Lymph # (Auto) 0.6 L Gage # (Auto) 0.1 Eos # (Auto) 0.0 Baso # (Auto) 0.0 Abs Immat Gran (auto) 0.08 H Absolute Neuts (auto) 8.8 H Absolute Nucleated RBC 0.020 H Nucleated RBC % (auto) 0.2 Smear Tech's Comments VERIFIED PT INR APTT D-Dimer High Sensitivty VBG pH VBG pCO2 VBG pO2 VBG HCO3 VBG O2 Saturation VBG Base Excess Anion Gap 19 Estim Creat Clear Calc 30.9 Estimated GFR 35 POC Glucose 243 H 340 H Random Glucose 354 H* Calcium 8.9 D Magnesium Total Bilirubin AST ALT Alkaline Phosphatase Total Creatine Kinase Troponin I High Sens B-Natriuretic Peptide Total Protein Albumin Urine Color Urine Appearance Urine pH Ur Specific [place] Urine Protein Urine Glucose (UA) Urine Ketones Urine Blood Urine Nitrite Ur Leukocyte Esterase Stool Occult Blood Influenza Type A (PCR) Influenza Type B (PCR) RSV RNA Qual (PCR) SARS-CoV-2 RNA (RT-PCR) Assessment and Plan (1) Hypoxic respiratory failure: Status: Acute Plan 78 yo F with multiple medical issues who presented after what appears to be a syncopal episode. She was found to be hypoxic in the ED and hence is admitted for further treatment. 1. Acute respiratory failure with hypoxia initially felt to be secondary to COPD with contribution of anemia; s/p 1 dose iv solu-medrol however this AM, without any significant wheezing or distress, but still desaturated in the mid 80s on RA will check VQ scan (SCr mildly up) - if no PE studies, suspected her hypoxia maybe due to underling COPD hold off further steroids for now as patient / daughter report adverse effects (hyperglycemia, weakness, confusion) in the past with steroids 2. Acute Anemia fobt negative, no evidence of active bleed seen by GI -- await recs; change to oral PPI 3. HAYDEE CPAP 4. TIA DAPT + statin -- will resume 5. HFpEF doesnt appear to be on diuretics 6. DM basal + bolus Full Code DVT pptx -- lovenox Quality Stroke Does the patient have a stroke diagnosis?: No VTE Prior VTE?: No VTE Risk Level:: Medical - moderate - high VTE Device Contraindication: Treatment Not Indicated VTE Drug Contraindication: N/A - Med Ordered
[2024-05-17 16:14] LABS: Glucose, Whole Blood 358 mg/dL (60-115)
[2024-05-17 16:58] LABS: Iron 27 mcg/dL (30-160); Lactate Dehydrogenase 232 U/L (122-220); Percent Iron Saturation 17 % (15-50); Total Iron Binding Capacity 160 mcg/dL (228-428); Unsaturated Iron Binding 133 ug/dL
[2024-05-17 17:11] LABS: Ferritin 309 ng/mL (10-250)
[2024-05-17 17:26] LABS: Folate 7.7 ng/mL (> or = 4.0); Vitamin B12 293 pg/mL (200-900)
[2024-05-17 20:50] LABS: Glucose, Whole Blood 331 mg/dL (60-115)
[2024-05-17] MEDS: Metoprolol Tartrate 50 MG TABLET PO (21:14)
[2024-05-18] VITALS (13 sets, daily range): BP systolic 110–148; BP diastolic 56–66; PULSE 70–91; RESP 15–20; TEMP 36.1–36.6; O2SAT 90–98
--- NOTE | 2024-05-18 05:01 | PC.NURSE ---
Pt AOx3, able to make needs known. She is cooperative, calm, and pleasant w/care. She has no c/o pain at this time. Pt using CPAP at HS. Call talbert within reach, bed alarm on. Safety maintained throughout shift.
[2024-05-18] MEDS: Pantoprazole Sodium 20 MG TABLET.DR PO (05:43)
--- NOTE | 2024-05-18 07:38 | HO.PM.IMPN ---
Subjective Subjective Date of Service: 05/18/24 Interval History: Seen in follow up for hypoxia interval history reports dyspnea improve when wearing O2, no cp, wheezing, cough Review of Systems Review of Systems: Yes all other systems are reviewed and are negative Physical Exam Vital Signs: Vital Signs: Last Vital Signs Temp 97 F 05/18/24 04:00 Pulse 70 05/18/24 04:00 Resp 16 05/18/24 04:00 BP 123/62 05/18/24 04:00 Pulse Ox 92 05/18/24 04:00 O2 Del Method CPAP 05/18/24 04:00 O2 Flow Rate 1 05/18/24 00:00 Oxygen Flow Rate 2 05/16/24 13:15 BMI result Body Mass Index 39.5 Constitutional - Awake and Alert, No apparent distress Eyes - PERRLA, EOMI Cardiovascular - S1S2, RRR, No edema Respiratory - Normal lung expansion, Normal respiratory effort, No respiratory distress, CTA bilaterally Extremities - no calf tenderness bilaterally, no swelling Skin - Warm/Dry Neurological - Alert & oriented x3 Psychological - Appropriate affect Objective Data Active Medications Acetaminophen (Acetaminophen 325 Mg Tablet) 975 mg PO Q6H PRN PRN Reason: Pain, Mild (Pain Scale 1-3), fever or headache Albuterol Sulfate (Albuterol Sulfate (0.083%) 2.5 Mg/3 Ml Vial.Neb) 2.5 mg INHALE Q2H PRN PRN Reason: Shortness of Breath/Wheezing Albuterol Sulfate (Albuterol Sulfate 90 Mcg 8 Gm Inhaler) 2 puff INHALE Q4H PRN PRN Reason: wheezing Albuterol/Ipratropium (Albuterol/Iprat 2.5/0.5mg 3 Ml Ampul.Neb) 3 ml INHALE RQ4H WHILE AWAKE [facility] Last Admin: 05/17/24 20:51 Dose: 3 ml Documented By: AUBREY Amlodipine Besylate (Amlodipine Besylate 2.5 Mg Tablet) 2.5 mg PO DAILY@1200 [facility]; Protocol Aspirin (Aspirin Enteric Coated 81 Mg Tablet.) 81 mg PO DAILY [facility] Atorvastatin Calcium (Atorvastatin Calcium 80 Mg Tablet) 80 mg PO BEDTIME [facility] Last Admin: 05/17/24 21:05 Dose: 80 mg Documented By: ROQUE Clopidogrel Bisulfate (Clopidogrel Bisulfate 75 Mg Tablet) 75 mg PO DAILY [facility] Docusate Sodium (Docusate Sodium 100 Mg Capsule) 100 mg PO BID PRN PRN Reason: Constipation Ezetimibe (Ezetimibe 10 Mg Tablet) 10 mg PO BEDTIME [facility] Last Admin: 05/17/24 21:05 Dose: 10 mg Documented By: ROQUE Fluoxetine HCl (Fluoxetine Hcl 20 Mg Capsule) 20 mg PO DAILY [facility] Fluticasone Propionate (Fluticasone Propionate Nasal 16 Gm [place]) 1 spray NOSTRIL-B DAILY [facility] Glucose (Glucose Gel 15 Gm Gel..Gram.) 15 gm PO Q15M PRN; Protocol PRN Reason: per Hypoglycemia Standing Ord. Dextrose (D10) 250 mls @ 750 mls/hr IV Q15M PRN; Protocol PRN Reason: per Hypoglycemia Standing Ord. Insulin Glargine (Insulin Glargine,Hum.Rec.Anlog 100 Unit/Ml 10 Ml Vial) 37 unit SUBCUT BEDTIME [facility] Last Admin: 05/17/24 21:04 Dose: 37 unit Documented By: ROQUE Insulin Human Lispro (Insulin Lispro 100 Unit/Ml 3 Ml Vial) 0 unit SUBCUT QIDACHS [facility]; Protocol Last Admin: 05/17/24 21:04 Dose: 8 unit Documented By: ROQUE Loratadine (Loratadine 10 Mg Tablet) 10 mg PO DAILY PRN PRN Reason: Allergy Symptoms Metoprolol Tartrate (Metoprolol Tartrate 50 Mg Tablet) 50 mg PO BID [facility]; Protocol Last Admin: 05/17/24 21:14 Dose: 50 mg Documented By: ROQUE Nitroglycerin (Nitroglycerin 0.4 Mg Tab.Subl) 0.4 mg SUBLINGUAL Q5M PRN PRN Reason: chest pain Pantoprazole Sodium (Pantoprazole Sodium 20 Mg Tablet.Dr) 20 mg PO DAILY@0630 [facility] Last Admin: 05/18/24 05:43 Dose: 20 mg Documented By: ROQUE Sodium Chloride (0.9 % Sodium Chloride Flush 3 Ml Syringe) 3 ml IVFLUSH QSHIFT [facility] Last Admin: 05/17/24 21:03 Dose: 3 ml Documented By: ROQUE Labs 05/17/24 10:19 05/17/24 10:19 Labs: Laboratory Results - last 24 hr 05/17/24 05/17/24 05/17/24 07:48 10:19 11:39 MCV 97.0 MCH 30.9 MCHC 31.9 RDW 14.4 Plt Count 302 MPV 10.7 Immature Gran % (Auto) 0.8 H Neut % (Auto) 91.9 H Lymph % (Auto) 5.9 L [place] % (Auto) 1.2 L Eos % (Auto) 0.0 Baso % (Auto) 0.2 Lymph # (Auto) 0.6 L [place] # (Auto) 0.1 Eos # (Auto) 0.0 Baso # (Auto) 0.0 Abs Immat Gran (auto) 0.08 H Absolute Neuts (auto) 8.8 H Absolute Nucleated RBC 0.020 H Nucleated RBC % (auto) 0.2 Smear Tech's Comments VERIFIED Anion Gap 19 Estim Creat Clear Calc 30.9 Estimated GFR 35 POC Glucose 243 H 340 H Random Glucose 354 H* Calcium 8.9 D Iron TIBC % Saturation Unsat Iron Binding Ferritin Lactate Dehydrogenase Vitamin B12 Folate 05/17/24 05/17/24 05/17/24 16:10 16:23 20:39 MCV MCH MCHC RDW Plt Count MPV Immature Gran % (Auto) Neut % (Auto) Lymph % (Auto) [place] % (Auto) Eos % (Auto) Baso % (Auto) Lymph # (Auto) [place] # (Auto) Eos # (Auto) Baso # (Auto) Abs Immat Gran (auto) Absolute Neuts (auto) Absolute Nucleated RBC Nucleated RBC % (auto) Smear Tech's Comments Anion Gap Estim Creat Clear Calc Estimated GFR POC Glucose 358 H* 331 H Random Glucose Calcium Iron 27 L TIBC 160 L % Saturation 17 Unsat Iron Binding 133 Ferritin 309 H Lactate Dehydrogenase 232 H Vitamin B12 293 Folate 7.7 Assessment and Plan (1) Hypoxic respiratory failure: Status: Acute Plan 78 yo F with multiple medical issues who presented after what appears to be a syncopal episode. She was found to be hypoxic in the ED and hence is admitted for further treatment. #Acute respiratory failure with hypoxia initially felt to be secondary to COPD with contribution of anemia; s/p 1 dose iv solu-medrol No significant wheezing or distress,doubt COPD exacerbation, but still desaturated in the mid 80s on RA VQ scan negative for PE echo showed hyperdynamic LV systolic fx EF 70% with impaired relaxation pattern. No vavlular disease hold off further steroids for now as patient / daughter report adverse effects (hyperglycemia, weakness, confusion) in the past with steroids suspect worsening copd without exacerbation start breo ellipta, albuterol prn pulmonology consult pt eval, home O2 eval #Acute iron deficiency Anemia fobt negative, no evidence of active bleed seen by GI -- declines egd/colo po ppi, add ferrous sulfate follow h/h #HAYDEE CPAP #TIA DAPT + statin #HFpEF doesnt appear to be on diuretics #DM basal + bolus poc glucose, diabetic diet Full Code DVT pptx -- SCPs given worsening anemia Pt requires ongoing inpt stay due to persistent hypoxia and will require expert consultation as to etiology of persistent symptoms, home O2 eval, and possible STR placement pending PT eval Quality Stroke Does the patient have a stroke diagnosis?: No VTE Prior VTE?: No VTE Risk Level:: Medical - moderate - high VTE Device Contraindication: Treatment Not Indicated VTE Drug Contraindication: N/A - Med Ordered
[2024-05-18 07:47] LABS: Glucose, Whole Blood 241 mg/dL (60-115)
[2024-05-18] MEDS: Albuterol/Iprat 2.5/0.5MG 3 ML AMPUL.NEB INHALE ×4 (08:00→19:54)
[2024-05-18] MEDS: Insulin Lispro 100 UNIT/ML 3 ML VIAL SUBCUT ×4 (08:39→20:55)
[2024-05-18] MEDS: FLUoxetine HCl 20 MG CAPSULE PO (08:39)
[2024-05-18] MEDS: Clopidogrel Bisulfate 75 MG TABLET PO (08:39)
[2024-05-18] MEDS: Aspirin Enteric Coated 81 MG TABLET.DR PO (08:39)
[2024-05-18] MEDS: Metoprolol Tartrate 50 MG TABLET PO ×2 (08:39→20:53)
[2024-05-18] MEDS: 0.9 % Sodium Chloride Flush 3 ML SYRINGE IVFLUSH ×3 (08:40→20:56)
[2024-05-18 11:08] LABS: Glucose, Whole Blood 270 mg/dL (60-115)
[2024-05-18] MEDS: amLODIPine Besylate 2.5 MG TABLET PO (12:23)
[2024-05-18 13:20] LABS: Basophils Absolute Auto 0.1 X10*3/uL (0.0-0.2); Basophils Percent Auto 0.3 % (0-2); Eosinophils Absolute Auto 0.1 X10*3/uL (0.0-0.4); Eosinophils Percent Auto 0.7 % (0-4); Hematocrit 28.9 % (37.0-47.0); Hemoglobin 9.2 g/dl (12.0-16.0); Imm Gran Abs Auto 0.09 X10*3/uL (0.00-0.03); Imm Gran Pct Auto 0.6 % (0.0-0.4); Lymphocytes Absolute Auto 1.3 X10*3/uL (1.2-4.9); Lymphocytes Percent Auto 8.9 % (20-40); MANUAL DIFF FLAG NO; Mean Corpuscular HGB Conc 31.8 g/dl (31.0-35.0); Mean Corpuscular Hemoglobin 31.2 pg (27.0-33.0); Mean Platelet Volume 10.5 fL (9.4-12.3); Monocytes Absolute Auto 0.7 X10*3/uL (0.1-1.2); Monocytes Percent Auto 5.1 % (2-11); Neutrophils Absolute Auto 12.2 x10*3/uL (2.0-8.3); Neutrophils Percent Auto 84.4 % (45-73); Platelet Count 368 X10*3/uL (160-400); Red Blood Count 2.95 X10*6/uL (4.20-5.50); Red Cell Distribution Width 14.5 % (11.0-16.0); White Blood Count 14.5 X10*3/uL (4.8-10.8)
--- NOTE | 2024-05-18 14:03 | P.PNHO-ONC_ITS ---
Medical Summary - Medical Summary Date of Service: 05/18/24 Chief complaint: anemia Primary Care Provider: Nahid Waterman MD Interval History Interval history: She is a pleasant 78 year old woman with a normochromic normocytic anemis admitted for dyspnea. She denies bleeding and has no memory of ever having transfusions. She is post menopausal. Her ferritin and B12 and floate are wnl. Review of Systems - Constitutional Reports anorexia - Cardiovascular Reports rapid, pounding, or irregular heartbeat - Respiratory Reports dyspnea - Gastrointestinal Reports feeling full early - Genitourinary Reports hot flashes - Musculoskeletal Reports tingling - Neurologic Denies loss of vision, Denies numbness, Denies tingling PMFSH Medical History: Medical History (Last Reviewed 05/17/24 @ 06:37 by Monalisa Humphrey RN) Abnormal nuclear stress test CAD (coronary artery disease) Cataract Chest tightness CKD (chronic kidney disease) COPD (chronic obstructive pulmonary disease) Depression Diabetes Diabetic retinopathy Heart attack Hiatal hernia High cholesterol HLD (hyperlipidemia) Hypercholesterolemia Macular degeneration Mild anemia Multiple falls NSTEMI (non-ST elevated myocardial infarction) Orthostatic hypotension HAYDEE on CPAP Osteoarthritis Overactive bladder Resting tremor Sleep apnea Stenosis of left subclavian artery Stroke Syncope Unsteady gait Vertigo Family History: Family History (Last Reviewed 05/17/24 @ 06:37 by Monalisa Humphrey RN) Father CVD (cardiovascular disease) Mother Brain aneurysm Surgical History: Surgical History (Last Reviewed 05/17/24 @ 06:37 by Monalisa Humphrey RN) History of cardiac catheterization History of cataract extraction Hx of colonoscopy Hx of vaginal hysterectomy Status post cardiac catheterization Stented coronary artery Social History: Social History (Last Reviewed 05/17/24 @ 06:38 by Monalisa Humphrey RN) Living Situation History: Household Members: Significant Other Housing: Apartment Are you a primary ambulatory care coordinator to a significant other at home: No Do you presently have visiting nurse or other home services: Yes Alcohol History: Unable to assess alcohol history related to: Unknown Tobacco History: Patient Tobacco Use Status: Former Tobacco user Tobacco use type: Cigarette Years Smoked: 50 e-Cigarette/Vaping Use: Former Use Second Hand Smoke Exposure: No Advance Directives: Advance Directives Date on File: 01/18/23 Occupation Assessmet: service: No Current occupational status: retired Home Medications and Allergies Current Medications: Current Medications Acetaminophen (Acetaminophen 325 Mg Tablet) 975 mg PO Q6H PRN PRN Reason: Pain, Mild (Pain Scale 1-3), fever or headache Albuterol Sulfate (Albuterol Sulfate (0.083%) 2.5 Mg/3 Ml Vial.Neb) 2.5 mg INHALE Q2H PRN PRN Reason: Shortness of Breath/Wheezing Albuterol Sulfate (Albuterol Sulfate 90 Mcg 8 Gm Inhaler) 2 puff INHALE Q4H PRN PRN Reason: wheezing Albuterol/Ipratropium (Albuterol/Iprat 2.5/0.5mg 3 Ml Ampul.Neb) 3 ml INHALE RQ4H WHILE AWAKE [facility] Last Admin: 05/18/24 11:41 Dose: 3 ml Amlodipine Besylate (Amlodipine Besylate 2.5 Mg Tablet) 2.5 mg PO DAILY@1200 [facility]; Protocol Last Admin: 05/18/24 12:23 Dose: 2.5 mg Ascorbic Acid (Ascorbic Acid 250 Mg Tablet) 250 mg PO DAILY [facility] Aspirin (Aspirin Enteric Coated 81 Mg Tablet.) 81 mg PO DAILY [facility] Last Admin: 05/18/24 08:39 Dose: 81 mg Atorvastatin Calcium (Atorvastatin Calcium 80 Mg Tablet) 80 mg PO BEDTIME [facility] Last Admin: 05/17/24 21:05 Dose: 80 mg Clopidogrel Bisulfate (Clopidogrel Bisulfate 75 Mg Tablet) 75 mg PO DAILY [facility] Last Admin: 05/18/24 08:39 Dose: 75 mg Docusate Sodium (Docusate Sodium 100 Mg Capsule) 100 mg PO BID PRN PRN Reason: Constipation Ezetimibe (Ezetimibe 10 Mg Tablet) 10 mg PO BEDTIME [facility] Last Admin: 05/17/24 21:05 Dose: 10 mg Ferrous Sulfate (Ferrous Sulfate 324 Mg Tablet.) 325 mg PO DAILY [facility] Fluoxetine HCl (Fluoxetine Hcl 20 Mg Capsule) 20 mg PO DAILY [facility] Last Admin: 05/18/24 08:39 Dose: 20 mg Fluticasone Propionate (Fluticasone Propionate Nasal 16 Gm [place]) 1 spray NOSTRIL-B DAILY [facility] Last Admin: 05/18/24 08:40 Dose: Not Given Fluticasone/Vilanterol (Fluticasone/Vilanterol 200/25 Blst.W.Dev) 1 puff INHALE RDAILY [facility] Last Admin: 05/18/24 11:46 Dose: Not Given Glucose (Glucose Gel 15 Gm Gel..Gram.) 15 gm PO Q15M PRN; Protocol PRN Reason: per Hypoglycemia Standing Ord. Dextrose (D10) 250 mls @ 750 mls/hr IV Q15M PRN; Protocol PRN Reason: per Hypoglycemia Standing Ord. Insulin Glargine (Insulin Glargine,Hum.Rec.Anlog 100 Unit/Ml 10 Ml Vial) 37 unit SUBCUT BEDTIME [facility] Last Admin: 05/17/24 21:04 Dose: 37 unit Insulin Human Lispro (Insulin Lispro 100 Unit/Ml 3 Ml Vial) 0 unit SUBCUT QIDACHS [facility]; Protocol Last Admin: 05/18/24 12:23 Dose: 6 unit Loratadine (Loratadine 10 Mg Tablet) 10 mg PO DAILY PRN PRN Reason: Allergy Symptoms Metoprolol Tartrate (Metoprolol Tartrate 50 Mg Tablet) 50 mg PO BID [facility]; Protocol Last Admin: 05/18/24 08:39 Dose: 50 mg Nitroglycerin (Nitroglycerin 0.4 Mg Tab.Subl) 0.4 mg SUBLINGUAL Q5M PRN PRN Reason: chest pain Pantoprazole Sodium (Pantoprazole Sodium 20 Mg Tablet.Dr) 20 mg PO DAILY@0630 [facility] Last Admin: 05/18/24 05:43 Dose: 20 mg Sodium Chloride (0.9 % Sodium Chloride Flush 3 Ml Syringe) 3 ml IVFLUSH QSHIFT [facility] Last Admin: 05/18/24 08:40 Dose: 3 ml Sodium Chloride (Sodium Chloride 0.65 % Nasal 44 Ml Sprbtl) 1 spray NOSTRIL-B Q1H PRN PRN Reason: nasal congestion/dryness Home Medications ?Medication ?Instructions ?Recorded ?Confirmed ?Type atorvastatin 80 mg tablet 80 mg PO BEDTIME 12/08/20 05/17/24 History ezetimibe 10 mg tablet 10 mg PO BEDTIME 12/08/20 05/17/24 History fluoxetine 20 mg capsule 20 mg PO DAILY 12/08/20 05/17/24 History losartan 100 mg tablet 100 mg PO BID 12/08/20 05/17/24 History metformin 500 mg tablet 500 mg PO BIDWM 12/08/20 05/17/24 History pen needle, diabetic 32 gauge x #50 ea 05/25/21 11/07/23 History 5/32 albuterol sulfate 90 mcg/actuation 2 puff inhalation Q4-6H PRN 01/10/23 05/17/24 History aerosol inhaler wheezing acetaminophen 325 mg tablet 650 mg PO Q6H PRN Pain 04/30/24 05/17/24 History (Tylenol) amlodipine 2.5 mg tablet 2.5 mg PO DAILY@1200 04/30/24 05/17/24 History aspirin 81 mg tablet,delayed 81 mg PO DAILY 04/30/24 05/17/24 History release fluticasone propionate 50 1 spray intranasal DAILY 04/30/24 05/17/24 History mcg/actuation nasal spray,suspension loratadine 10 mg tablet 10 mg PO DAILY PRN Allergy Symptoms 04/30/24 05/17/24 History vit C 250 mg-vit E 90 mg-zinc 40 1 tab PO BID 04/30/24 05/17/24 History mg-copper 1 [id number] capsule (PreserVision AREDS-2) docusate sodium 100 mg capsule 100 mg PO BID PRN Constipation 05/17/24 05/17/24 History (Colace) insulin glargine 100 unit/mL (3 37 unit subcut BEDTIME 05/17/24 05/17/24 History mL) subcutaneous pen (Basaglar KwikPen U-100 Insulin) metoprolol tartrate 50 mg tablet 50 mg PO BID 05/17/24 05/17/24 History Allergies Allergy/AdvReac Type Severity Reaction Status Date / Time adhesive tape Allergy Mild Unknown Verified 05/16/24 13:16 bee pollen [bee stings] Allergy Mild Swelling Verified 05/16/24 13:16 oxycodone [OXYCODONE] Allergy Mild ITCHING, Verified 05/16/24 13:16 itchy prednisone Allergy Unknown Verified 05/16/24 13:16 hydromorphone [From DILAUDID] AdvReac Mild ITCHING Verified 05/16/24 13:16 Exam Vital signs: Vital Signs Temp 97.1 F 05/18/24 12:00 Pulse 77 05/18/24 12:00 Resp 20 05/18/24 12:00 BP 135/65 05/18/24 12:23 Pulse Ox 93 05/18/24 12:00 O2 Del Method Nasal Cannula 05/18/24 12:00 O2 Flow Rate 1 06/29/24 12:00 Intake & Output 05/17/24 05/18/24 05/18/24 18:59 06:59 18:59 Intake Total 400 / 1600 1200 / 1600 600 / 600 Output Total 300 / 600 300 / 600 450 / 450 Balance 100 / 1000 900 / 1000 150 / 150 Urine Output (Average ml/kg/hr) 0.28 0.28 0.42 Intake: Intake, Oral Amount 400 / 600 200 / 600 600 / 600 Intake, Oral Supplement Amount 0 / 0 Intake, Tube Feeding Amount 0 / 0 Intake, IV Amount 1000 / 1000 0.9 % Sodium Chloride 1,000 ml 1000 / 1000 @ 999 mls/hr IV .Q1H1M [facility] Rx#: [id number] Output: Output, Urine Amount 300 / 600 300 / 600 450 / 450 Output, Stool Amount 0 / 0 Output, Urine/Stool Mix Amount 0 / 0 Other: Meal Refused No No NPO No No Breakfast % Eaten 50% 100% Lunch % Eaten 75% 100% Dinner % Eaten 100% Number of Incontinent Voids 1 Number of Unmeasured Voids 0 Number of Bowel Movements 1 Urine purewick purewick Urine Color Yellow Yellow Last Bowel Movement 05/14/24 05/17/24 05/17/24 Stool Incontinent Stool Amount Moderate Stool Color Brown Stool Consistency Mushy Weight 88.7 kg BMI result Body Mass Index 39.5 - Constitutional Present: no acute distress - Routine HEENT Exam Head: Present: atraumatic, normal inspection - Routine Neck Exam Present: full ROM - Routine Respiratory Exam Present: decreased breath sounds - Routine Cardiovascular Exam Cardiovascular: Present: RRR - Routine Abdominal Exam Present: normal bowel sounds - Routine Neurological Exam Present: alert, oriented X3 - Routine Psychiatric Exam Present: normal affect Data - Labs CBC & Chem 7: 05/18/24 13:17 05/17/24 10:19 Labs: Laboratory Last Values WBC 14.5 X10*3/uL (4.8-10.8) H 05/18/24 13:17 RBC 2.95 X10*6/uL (4.20-5.50) L 05/18/24 13:17 Hgb 9.2 g/dl (12.0-16.0) L 05/18/24 13:17 Hct 28.9 % (37.0-47.0) L 05/18/24 13:17 MCV 98.0 fL (80.0-98.0) 05/18/24 13:17 MCH 31.2 pg (27.0-33.0) 05/18/24 13:17 MCHC 31.8 g/dl (31.0-35.0) 05/18/24 13:17 RDW 14.5 % (11.0-16.0) 05/18/24 13:17 Plt Count 368 X10*3/uL (160-400) 05/18/24 13:17 MPV 10.5 fL (9.4-12.3) 05/18/24 13:17 Immature Gran % (Auto) 0.6 % (0.0-0.4) H 05/18/24 13:17 Neut % (Auto) 84.4 % (45-73) H 05/18/24 13:17 Lymph % (Auto) 8.9 % (20-40) L 05/18/24 13:17 [place] % (Auto) 5.1 % (2-11) 05/18/24 13:17 Eos % (Auto) 0.7 % (0-4) 05/18/24 13:17 Baso % (Auto) 0.3 % (0-2) 05/18/24 13:17 Lymph # (Auto) 1.3 X10*3/uL (1.2-4.9) 05/18/24 13:17 [place] # (Auto) 0.7 X10*3/uL (0.1-1.2) 05/18/24 13:17 Eos # (Auto) 0.1 X10*3/uL (0.0-0.4) 05/18/24 13:17 Baso # (Auto) 0.1 X10*3/uL (0.0-0.2) 05/18/24 13:17 Abs Immat Gran (auto) 0.09 X10*3/uL (0.00-0.03) H 05/18/24 13:17 Absolute Neuts (auto) 12.2 x10*3/uL (2.0-8.3) H 05/18/24 13:17 Absolute Nucleated RBC 0.000 X10*3/uL (0.0-0.012) 05/18/24 13:17 Nucleated RBC % (auto) 0.0 /100WBC (0.0-0.2) 05/18/24 13:17 Smear Tech's Comments VERIFIED 05/17/24 10:19 PT 14.9 SEC (11.1-13.3) H 05/16/24 21:55 INR 1.2 (0.9-1.1) H 05/16/24 21:55 APTT 33.3 SEC (26.0-36.8) D 05/16/24 21:55 D-Dimer High Sensitivty 549 NG/ML 05/16/24 19:10 VBG pH 7.45 (7.32-7.43) H 05/16/24 21:59 VBG pCO2 35 mmHg 05/16/24 21:59 VBG pO2 64 mmHg 05/16/24 21:59 VBG HCO3 25 mmol/L (22-26) 05/16/24 21:59 VBG O2 Saturation 90.0 % 05/16/24 21:59 VBG Base Excess 1.8 mmol/L 05/16/24 21:59 Sodium 134 mmol/L (135-145) L 05/17/24 10:19 Potassium 4.8 mmol/L (3.3-5.1) 05/17/24 10:19 Chloride 102 mmol/L (96-108) 05/17/24 10:19 Carbon Dioxide 18 mmol/L (22-29) L 05/17/24 10:19 Anion Gap 19 (12-20) 05/17/24 10:19 BUN 24 mg/dL (9-16) H 05/17/24 10:19 Creatinine 1.45 mg/dL (0.5-1.4) H 05/17/24 10:19 Estim Creat Clear Calc 30.9 05/17/24 10:19 Estimated GFR 35 05/17/24 10:19 POC Glucose 270 mg/dL (60-115) H 05/18/24 11:03 Random Glucose 354 mg/dL (60-115) H* 05/17/24 10:19 Calcium 8.9 mg/dL (8.4-10.2) D 05/17/24 10:19 Magnesium 1.9 mg/dL (1.6-2.6) 05/16/24 13:39 Iron 27 mcg/dL (30-160) L 05/17/24 16:23 TIBC 160 mcg/dL (228-428) L 05/17/24 16:23 % Saturation 17 % (15-50) 05/17/24 16:23 Unsat Iron Binding 133 ug/dL 05/17/24 16:23 Ferritin 309 ng/mL (10-250) H 05/17/24 16:23 Total Bilirubin 0.8 mg/dL (0.0-1.0) 05/16/24 13:39 AST 46 U/L (5-31) H 05/16/24 13:39 ALT 32 U/L (0-31) H 05/16/24 13:39 Alkaline Phosphatase 134 U/L (39-117) H 05/16/24 13:39 Lactate Dehydrogenase 232 U/L (122-220) H 05/17/24 16:23 Total Creatine Kinase 44 U/L (26-140) 05/16/24 13:39 Troponin I High Sens 20.3 ng/L (<3.5-17.0) H 05/16/24 14:53 B-Natriuretic Peptide 322 pg/mL (<100) H 05/16/24 13:39 Total Protein 6.9 g/dL (6.5-8.0) 05/16/24 13:39 Albumin 3.1 g/dL (3.5-5.0) L 05/16/24 13:39 Vitamin B12 293 pg/mL (200-900) 05/17/24 16:23 Folate 7.7 ng/mL (> or = 4.0) 05/17/24 16:23 Urine Color Yellow 05/16/24 16:23 Urine Appearance Clear 05/16/24 16:23 Urine pH 5.5 (5.0-9.0) 05/16/24 16:23 Ur Specific [place] >= 1.030 (1.005-1.025) H 05/16/24 16:23 Urine Protein Trace mg/dL (Neg-Trace) 05/16/24 16:23 Urine Glucose (UA) Negative mg/dL (Negative) 05/16/24 16:23 Urine Ketones Negative mg/dL (Negative) 05/16/24 16:23 Urine Blood Negative (Negative) 05/16/24 16:23 Urine Nitrite Negative (Negative) 05/16/24 16:23 Ur Leukocyte Esterase Negative (Negative) 05/16/24 16:23 Stool Occult Blood NEGATIVE (NEGATIVE) 05/16/24 17:56 Influenza Type A (PCR) NEGATIVE (Negative) 05/16/24 13:39 Influenza Type B (PCR) NEGATIVE (Negative) 05/16/24 13:39 RSV RNA Qual (PCR) NEGATIVE (Negative) 05/16/24 13:39 SARS-CoV-2 RNA (RT-PCR) NEGATIVE (Negative) 05/16/24 13:39 - Imaging Radiologist's impression: ITS Impressions Abdomen/Pelvis CT 05/16/24 15:19 IMPRESSION: 1. No evidence of a traumatic injury in the chest, abdomen or pelvis. 2. Incidental note made of emphysema, cholelithiasis, hysterectomy and degenerative changes in the spine. Fleischner guidelines were followed. Cervical Spine CT 05/16/24 15:19 IMPRESSION: CT HEAD: No acute intracranial finding. Sequela of microangiopathy and mild global volume loss CT CERVICAL SPINE: No cervical spine fracture or traumatic malalignment identified. Mild degenerative changes Chest CT 05/16/24 15:19 IMPRESSION: 1. No evidence of a traumatic injury in the chest, abdomen or pelvis. 2. Incidental note made of emphysema, cholelithiasis, hysterectomy and degenerative changes in the spine. Fleischner guidelines were followed. Head CT 05/16/24 15:19 IMPRESSION: CT HEAD: No acute intracranial finding. Sequela of microangiopathy and mild global volume loss CT CERVICAL SPINE: No cervical spine fracture or traumatic malalignment identified. Mild degenerative changes Chest X-Ray 05/16/24 16:30 IMPRESSION: Unremarkable examination, without interval change. Pulmonary Perfusion Imaging 05/17/24 13:10 IMPRESSION: Based on perfusion only modified PIOPED 2 criteria, pulmonary thromboembolism is absent. Assessment and Plan Patient Active problem list reviewed?: Yes (1) Anemia Status: Acute Assessment and plan: She appeaars to have a multifactorial chronic anemia of chronic disease and mild renal insufficiendcy. I will follow her along with you thiss weekend. Recommend full hematology consult necxt week, Will await the haptoglobin. - Time Spent With Patient Time Spent with Patient (in minutes): 25
[2024-05-18] MEDS: Ascorbic Acid 250 MG TABLET PO (14:05)
[2024-05-18] MEDS: Ferrous Sulfate 324 MG TABLET.DR 325 MG PO (14:05)
[2024-05-18] MEDS: Fluticasone Propionate Nasal 16 GM SPRAY 1 SPRAY NOSTRIL-B (14:08)
[2024-05-18 16:29] LABS: Glucose, Whole Blood 251 mg/dL (60-115)
[2024-05-18] MEDS: Sodium Chloride 0.65 % Nasal 44 ML SPRBTL 1 SPRAY NOSTRIL-B (17:08)
[2024-05-18 20:40] LABS: Glucose, Whole Blood 262 mg/dL (60-115)
[2024-05-18] MEDS: Ezetimibe 10 MG TABLET PO (20:53)
[2024-05-18] MEDS: Atorvastatin Calcium 80 MG TABLET PO (20:53)
[2024-05-18] MEDS: Insulin Glargine,Hum.rec.anlog 100 UNIT/ML 10 ML VIAL 37 UNIT SUBCUT (20:55)
--- NOTE | 2024-05-18 23:55 | P.PNGI_ITS ---
Subjective Subjective Date of Service: 05/18/24 Interval History: breathing is easier denies cough or sputum denies rectal bleeding, or melena, no abdo pain Critical Care Time (minutes): 0 Physical Exam 2 Vital Signs: Vital Signs: Last Vital Signs Temp 97.8 F 05/18/24 20:00 Pulse 91 05/18/24 20:53 Resp 16 05/18/24 20:00 BP 148/59 H 05/18/24 20:53 Pulse Ox 98 05/18/24 20:00 O2 Del Method Nasal Cannula 05/18/24 20:00 O2 Flow Rate 1 05/18/24 20:00 Oxygen Flow Rate 2 05/16/24 13:15 BMI result Body Mass Index 39.5 EXAM: GENERAL: The patient is obese VITAL SIGNS:see workflow HEENT: Nonicteric sclerae, PERRLA, EOMI. Oropharynx clear. Moist mucous membranes. Conjunctivae appear well perfused. No thyroid mass. CHEST: Chest wall is nontender. HEART: Regular rate and rhythm without murmurs. LUNGS: Clear to auscultation bilaterally. ABDOMEN: Soft, positive bowel sounds, nontender, no organomegaly.no flank tenderness SKIN: No rash, no excessive bruising, petechiae, or purpura. NEUROLOGIC: Cranial nerves II-XII intact without motor/sensory deficit. Psych: normal affect Objective Data Labs 05/18/24 13:17 05/17/24 10:19 Labs: Laboratory Results - last 24 hr 05/18/24 05/18/24 05/18/24 07:13 11:03 13:17 WBC 14.5 H RBC 2.95 L Hgb 9.2 L Hct 28.9 L MCV 98.0 MCH 31.2 MCHC 31.8 RDW 14.5 Plt Count 368 MPV 10.5 Immature Gran % (Auto) 0.6 H Neut % (Auto) 84.4 H Lymph % (Auto) 8.9 L [place] % (Auto) 5.1 Eos % (Auto) 0.7 Baso % (Auto) 0.3 Lymph # (Auto) 1.3 [place] # (Auto) 0.7 Eos # (Auto) 0.1 Baso # (Auto) 0.1 Abs Immat Gran (auto) 0.09 H Absolute Neuts (auto) 12.2 H Absolute Nucleated RBC 0.000 Nucleated RBC % (auto) 0.0 POC Glucose 241 H 270 H 05/18/24 05/18/24 16:18 20:36 WBC RBC Hgb Hct MCV MCH MCHC RDW Plt Count MPV Immature Gran % (Auto) Neut % (Auto) Lymph % (Auto) [place] % (Auto) Eos % (Auto) Baso % (Auto) Lymph # (Auto) [place] # (Auto) Eos # (Auto) Baso # (Auto) Abs Immat Gran (auto) Absolute Neuts (auto) Absolute Nucleated RBC Nucleated RBC % (auto) POC Glucose 251 H 262 H Procedures Date of Service Date of Service: 05/18/24 Progress Note: A&P Assessment and plan (1) Anemia: Status: Acute Plan 1/ Anemia w/o overt GI blood loss, mildly raised LDH, may also be due to ACD 2/2 CKD PLAN: 1/ await haptoglobin 2/ monitor Hgb if >7 g/dl then transfuse 3/ she wishes to hold on egd, colo Time Spent With Patient Time: Total time managing care of this patient today ____ minutes. Quality Stroke Does the patient have a stroke diagnosis?: No VTE Prior VTE?: No VTE Risk Level:: Medical - moderate - high VTE Device Contraindication: Treatment Not Indicated VTE Drug Contraindication: N/A - Med Ordered
[2024-05-19] VITALS (14 sets, daily range): BP systolic 129–156; BP diastolic 51–69; PULSE 62–100; RESP 15–20; TEMP 35.9–36.8; O2SAT 90–98
[2024-05-19] MEDS: Pantoprazole Sodium 20 MG TABLET.DR PO (06:07)
[2024-05-19 06:20] LABS: MANUAL DIFF FLAG NO
[2024-05-19 06:52] LABS: Basophils Absolute Auto 0.1 X10*3/uL (0.0-0.2); Basophils Percent Auto 0.5 % (0-2); Eosinophils Absolute Auto 0.3 X10*3/uL (0.0-0.4); Eosinophils Percent Auto 2.4 % (0-4); Hematocrit 29.7 % (37.0-47.0); Hemoglobin 9.5 g/dl (12.0-16.0); Imm Gran Abs Auto 0.08 X10*3/uL (0.00-0.03); Imm Gran Pct Auto 0.7 % (0.0-0.4); Lymphocytes Absolute Auto 1.2 X10*3/uL (1.2-4.9); Lymphocytes Percent Auto 10.5 % (20-40); Mean Corpuscular Hemoglobin 31.1 pg (27.0-33.0); Mean Corpuscular Volume 97.4 fL (80.0-98.0); Mean Platelet Volume 10.5 fL (9.4-12.3); Monocytes Absolute Auto 0.9 X10*3/uL (0.1-1.2); Monocytes Percent Auto 7.5 % (2-11); NRBC Pct Auto 0.2 /100WBC (0.0-0.2); Neutrophils Absolute Auto 9.1 x10*3/uL (2.0-8.3); Neutrophils Percent Auto 78.4 % (45-73); Platelet Count 358 X10*3/uL (160-400); Red Blood Count 3.05 X10*6/uL (4.20-5.50); Red Cell Distribution Width 14.6 % (11.0-16.0); White Blood Count 11.6 X10*3/uL (4.8-10.8)
[2024-05-19 06:58] LABS: Anion Gap 15 (12-20); Blood Urea Nitrogen 23 mg/dL (9-16); Calcium 9.7 mg/dL (8.4-10.2); Carbon Dioxide 22 mmol/L (22-29); Chloride 106 mmol/L (96-108); Creatinine Clr Calc Pharmacy 37.4; Estimated Glomerular Filt Rate 43; Glucose Random 195 mg/dL (60-115); Potassium 4.1 mmol/L (3.3-5.1); Sodium 139 mmol/L (135-145)
--- NOTE | 2024-05-19 07:24 | HO.PM.IMPN ---
Subjective Subjective Date of Service: 05/19/24 Physical Exam Vital Signs: Vital Signs: Last Vital Signs Temp 97.8 F 05/19/24 04:00 Pulse 100 05/19/24 04:00 Resp 16 05/19/24 04:00 BP 136/63 05/19/24 04:00 Pulse Ox 92 05/19/24 04:00 O2 Del Method CPAP 05/19/24 04:00 O2 Flow Rate 1 05/18/24 20:00 Oxygen Flow Rate 2 05/16/24 13:15 BMI result Body Mass Index 39.5 Objective Data Active Medications Acetaminophen (Acetaminophen 325 Mg Tablet) 975 mg PO Q6H PRN PRN Reason: Pain, Mild (Pain Scale 1-3), fever or headache Albuterol Sulfate (Albuterol Sulfate (0.083%) 2.5 Mg/3 Ml Vial.Neb) 2.5 mg INHALE Q2H PRN PRN Reason: Shortness of Breath/Wheezing Albuterol Sulfate (Albuterol Sulfate 90 Mcg 8 Gm Inhaler) 2 puff INHALE Q4H PRN PRN Reason: wheezing Albuterol/Ipratropium (Albuterol/Iprat 2.5/0.5mg 3 Ml Ampul.Neb) 3 ml INHALE RQ4H WHILE AWAKE [facility] Last Admin: 05/18/24 19:54 Dose: 3 ml Documented By: SHER Amlodipine Besylate (Amlodipine Besylate 2.5 Mg Tablet) 2.5 mg PO DAILY@1200 SARAHI; Protocol Last Admin: 05/18/24 12:23 Dose: 2.5 mg Documented By: MARY Ascorbic Acid (Ascorbic Acid 250 Mg Tablet) 250 mg PO DAILY [facility] Last Admin: 05/18/24 14:05 Dose: 250 mg Documented By: MARY Aspirin (Aspirin Enteric Coated 81 Mg Tablet.) 81 mg PO DAILY [facility] Last Admin: 05/18/24 08:39 Dose: 81 mg Documented By: MARY Atorvastatin Calcium (Atorvastatin Calcium 80 Mg Tablet) 80 mg PO BEDTIME [facility] Last Admin: 05/18/24 20:53 Dose: 80 mg Documented By: MELODY Clopidogrel Bisulfate (Clopidogrel Bisulfate 75 Mg Tablet) 75 mg PO DAILY [facility] Last Admin: 05/18/24 08:39 Dose: 75 mg Documented By: MARY Docusate Sodium (Docusate Sodium 100 Mg Capsule) 100 mg PO BID PRN PRN Reason: Constipation Ezetimibe (Ezetimibe 10 Mg Tablet) 10 mg PO BEDTIME [facility] Last Admin: 05/18/24 20:53 Dose: 10 mg Documented By: MELODY Ferrous Sulfate (Ferrous Sulfate 324 Mg Tablet.Dr) 325 mg PO DAILY [facility] Last Admin: 05/18/24 14:05 Dose: 325 mg Documented By: MARY Fluoxetine HCl (Fluoxetine Hcl 20 Mg Capsule) 20 mg PO DAILY [facility] Last Admin: 05/18/24 08:39 Dose: 20 mg Documented By: MARY Fluticasone Propionate (Fluticasone Propionate Nasal 16 Gm [place]) 1 spray NOSTRIL-B DAILY [facility] Last Admin: 05/18/24 14:08 Dose: 1 spray Documented By: MARY Fluticasone/Vilanterol (Fluticasone/Vilanterol 200/25 Blst.W.Dev) 1 puff INHALE RDAILY [facility] Last Admin: 05/18/24 11:46 Dose: Not Given Documented By: ANKUR Non-Admin Reason: Med Not Available Glucose (Glucose Gel 15 Gm Gel..Gram.) 15 gm PO Q15M PRN; Protocol PRN Reason: per Hypoglycemia Standing Ord. Dextrose (D10) 250 mls @ 750 mls/hr IV Q15M PRN; Protocol PRN Reason: per Hypoglycemia Standing Ord. Insulin Glargine (Insulin Glargine,Hum.Rec.Anlog 100 Unit/Ml 10 Ml Vial) 37 unit SUBCUT BEDTIME [facility] Last Admin: 05/18/24 20:55 Dose: 37 unit Documented By: MELODY Insulin Human Lispro (Insulin Lispro 100 Unit/Ml 3 Ml Vial) 0 unit SUBCUT QIDACHS [facility]; Protocol Last Admin: 05/18/24 20:55 Dose: 6 unit Documented By: MELODY Loratadine (Loratadine 10 Mg Tablet) 10 mg PO DAILY PRN PRN Reason: Allergy Symptoms Metoprolol Tartrate (Metoprolol Tartrate 50 Mg Tablet) 50 mg PO BID [facility]; Protocol Last Admin: 05/18/24 20:53 Dose: 50 mg Documented By: MELODY Nitroglycerin (Nitroglycerin 0.4 Mg Tab.Subl) 0.4 mg SUBLINGUAL Q5M PRN PRN Reason: chest pain Pantoprazole Sodium (Pantoprazole Sodium 20 Mg Tablet.Dr) 20 mg PO DAILY@0630 [facility] Last Admin: 05/19/24 06:07 Dose: 20 mg Documented By: MELODY Sodium Chloride (0.9 % Sodium Chloride Flush 3 Ml Syringe) 3 ml IVFLUSH QSHIFT [facility] Last Admin: 05/18/24 20:56 Dose: 3 ml Documented By: MELODY Sodium Chloride (Sodium Chloride 0.65 % Nasal 44 Ml Sprbtl) 1 spray NOSTRIL-B Q1H PRN PRN Reason: nasal congestion/dryness Last Admin: 05/18/24 17:08 Dose: 1 spray Documented By: MARY Labs 05/19/24 05:58 05/19/24 05:58 Labs: Laboratory Results - last 24 hr 05/18/24 05/18/24 05/18/24 07:13 11:03 13:17 MCV 98.0 MCH 31.2 MCHC 31.8 RDW 14.5 Plt Count 368 MPV 10.5 Immature Gran % (Auto) 0.6 H Neut % (Auto) 84.4 H Lymph % (Auto) 8.9 L [place] % (Auto) 5.1 Eos % (Auto) 0.7 Baso % (Auto) 0.3 Lymph # (Auto) 1.3 [place] # (Auto) 0.7 Eos # (Auto) 0.1 Baso # (Auto) 0.1 Abs Immat Gran (auto) 0.09 H Absolute Neuts (auto) 12.2 H Absolute Nucleated RBC 0.000 Nucleated RBC % (auto) 0.0 Anion Gap Estim Creat Clear Calc Estimated GFR POC Glucose 241 H 270 H Random Glucose Calcium 05/18/24 05/18/24 05/19/24 16:18 20:36 05:58 MCV 97.4 MCH 31.1 MCHC 32.0 RDW 14.6 Plt Count 358 MPV 10.5 Immature Gran % (Auto) 0.7 H Neut % (Auto) 78.4 H Lymph % (Auto) 10.5 L [place] % (Auto) 7.5 Eos % (Auto) 2.4 Baso % (Auto) 0.5 Lymph # (Auto) 1.2 [place] # (Auto) 0.9 Eos # (Auto) 0.3 Baso # (Auto) 0.1 Abs Immat Gran (auto) 0.08 H Absolute Neuts (auto) 9.1 H Absolute Nucleated RBC 0.020 H Nucleated RBC % (auto) 0.2 Anion Gap 15 Estim Creat Clear Calc 37.4 Estimated GFR 43 POC Glucose 251 H 262 H Random Glucose 195 H Calcium 9.7 D Quality Stroke Does the patient have a stroke diagnosis?: No VTE Prior VTE?: No VTE Risk Level:: Medical - moderate - high VTE Device Contraindication: Treatment Not Indicated VTE Drug Contraindication: N/A - Med Ordered
--- NOTE | 2024-05-19 07:25 | HO.PM.IMPN ---
Subjective Subjective Date of Service: 05/19/24 Interval History: Seen in follow up for hypoxia interval history reports dyspnea improve when wearing O2, reports congestion in throat Review of Systems Review of Systems: Yes all other systems are reviewed and are negative Physical Exam Vital Signs: Vital Signs: Last Vital Signs Temp 97.8 F 05/19/24 04:00 Pulse 100 05/19/24 04:00 Resp 16 05/19/24 04:00 BP 136/63 05/19/24 04:00 Pulse Ox 92 05/19/24 04:00 O2 Del Method CPAP 05/19/24 04:00 O2 Flow Rate 1 05/18/24 20:00 Oxygen Flow Rate 2 05/16/24 13:15 BMI result Body Mass Index 39.5 Constitutional - Awake and Alert, No apparent distress Eyes - PERRLA, EOMI Cardiovascular - S1S2, RRR, No edema Respiratory - Normal lung expansion, Normal respiratory effort, No respiratory distress, scattered expiratory wheezing Gastrointestinal - NT / ND; +BS; No rebound or guarding Extremities - no calf tenderness bilaterally, no swelling Skin - Warm/Dry Neurological - Alert & oriented x3 Psychological - Appropriate affect Objective Data Active Medications Acetaminophen (Acetaminophen 325 Mg Tablet) 975 mg PO Q6H PRN PRN Reason: Pain, Mild (Pain Scale 1-3), fever or headache Albuterol Sulfate (Albuterol Sulfate (0.083%) 2.5 Mg/3 Ml Vial.Neb) 2.5 mg INHALE Q2H PRN PRN Reason: Shortness of Breath/Wheezing Albuterol Sulfate (Albuterol Sulfate 90 Mcg 8 Gm Inhaler) 2 puff INHALE Q4H PRN PRN Reason: wheezing Albuterol/Ipratropium (Albuterol/Iprat 2.5/0.5mg 3 Ml Ampul.Neb) 3 ml INHALE RQ4H WHILE AWAKE [facility] Last Admin: 05/18/24 19:54 Dose: 3 ml Documented By: SHER Amlodipine Besylate (Amlodipine Besylate 2.5 Mg Tablet) 2.5 mg PO DAILY@1200 SARAHI; Protocol Last Admin: 05/18/24 12:23 Dose: 2.5 mg Documented By: MAYR Ascorbic Acid (Ascorbic Acid 250 Mg Tablet) 250 mg PO DAILY [facility] Last Admin: 05/18/24 14:05 Dose: 250 mg Documented By: MARY Aspirin (Aspirin Enteric Coated 81 Mg Tablet.) 81 mg PO DAILY [facility] Last Admin: 05/18/24 08:39 Dose: 81 mg Documented By: MARY Atorvastatin Calcium (Atorvastatin Calcium 80 Mg Tablet) 80 mg PO BEDTIME [facility] Last Admin: 05/18/24 20:53 Dose: 80 mg Documented By: MELODY Clopidogrel Bisulfate (Clopidogrel Bisulfate 75 Mg Tablet) 75 mg PO DAILY [facility] Last Admin: 05/18/24 08:39 Dose: 75 mg Documented By: MARY Docusate Sodium (Docusate Sodium 100 Mg Capsule) 100 mg PO BID PRN PRN Reason: Constipation Ezetimibe (Ezetimibe 10 Mg Tablet) 10 mg PO BEDTIME [facility] Last Admin: 05/18/24 20:53 Dose: 10 mg Documented By: MELODY Ferrous Sulfate (Ferrous Sulfate 324 Mg Tablet.) 325 mg PO DAILY [facility] Last Admin: 05/18/24 14:05 Dose: 325 mg Documented By: MARY Fluoxetine HCl (Fluoxetine Hcl 20 Mg Capsule) 20 mg PO DAILY [facility] Last Admin: 05/18/24 08:39 Dose: 20 mg Documented By: MARY Fluticasone Propionate (Fluticasone Propionate Nasal 16 Gm [place]) 1 spray NOSTRIL-B DAILY [facility] Last Admin: 05/18/24 14:08 Dose: 1 spray Documented By: MARY Fluticasone/Vilanterol (Fluticasone/Vilanterol 200/25 Blst.W.Dev) 1 puff INHALE RDAILY [facility] Last Admin: 05/18/24 11:46 Dose: Not Given Documented By: ANKUR Non-Admin Reason: Med Not Available Glucose (Glucose Gel 15 Gm Gel..Gram.) 15 gm PO Q15M PRN; Protocol PRN Reason: per Hypoglycemia Standing Ord. Dextrose (D10) 250 mls @ 750 mls/hr IV Q15M PRN; Protocol PRN Reason: per Hypoglycemia Standing Ord. Insulin Glargine (Insulin Glargine,Hum.Rec.Anlog 100 Unit/Ml 10 Ml Vial) 37 unit SUBCUT BEDTIME [facility] Last Admin: 05/18/24 20:55 Dose: 37 unit Documented By: MELODY Insulin Human Lispro (Insulin Lispro 100 Unit/Ml 3 Ml Vial) 0 unit SUBCUT QIDACHS [facility]; Protocol Last Admin: 05/18/24 20:55 Dose: 6 unit Documented By: MELODY Loratadine (Loratadine 10 Mg Tablet) 10 mg PO DAILY PRN PRN Reason: Allergy Symptoms Metoprolol Tartrate (Metoprolol Tartrate 50 Mg Tablet) 50 mg PO BID [facility]; Protocol Last Admin: 05/18/24 20:53 Dose: 50 mg Documented By: MELODY Nitroglycerin (Nitroglycerin 0.4 Mg Tab.Subl) 0.4 mg SUBLINGUAL Q5M PRN PRN Reason: chest pain Pantoprazole Sodium (Pantoprazole Sodium 20 Mg Tablet.Dr) 20 mg PO DAILY@629 [facility] Last Admin: 05/19/24 06:07 Dose: 20 mg Documented By: MELODY Sodium Chloride (0.9 % Sodium Chloride Flush 3 Ml Syringe) 3 ml IVFLUSH QSHIFT [facility] Last Admin: 05/18/24 20:56 Dose: 3 ml Documented By: MELODY Sodium Chloride (Sodium Chloride 0.65 % Nasal 44 Ml Sprbtl) 1 spray NOSTRIL-B Q1H PRN PRN Reason: nasal congestion/dryness Last Admin: 05/18/24 17:08 Dose: 1 spray Documented By: MARY Labs 05/19/24 05:58 05/19/24 05:58 Labs: Laboratory Results - last 24 hr 05/18/24 05/18/24 05/18/24 07:13 11:03 13:17 MCV 98.0 MCH 31.2 MCHC 31.8 RDW 14.5 Plt Count 368 MPV 10.5 Immature Gran % (Auto) 0.6 H Neut % (Auto) 84.4 H Lymph % (Auto) 8.9 L [place] % (Auto) 5.1 Eos % (Auto) 0.7 Baso % (Auto) 0.3 Lymph # (Auto) 1.3 [place] # (Auto) 0.7 Eos # (Auto) 0.1 Baso # (Auto) 0.1 Abs Immat Gran (auto) 0.09 H Absolute Neuts (auto) 12.2 H Absolute Nucleated RBC 0.000 Nucleated RBC % (auto) 0.0 Anion Gap Estim Creat Clear Calc Estimated GFR POC Glucose 241 H 270 H Random Glucose Calcium 05/18/24 05/18/24 05/19/24 16:18 20:36 05:58 MCV 97.4 MCH 31.1 MCHC 32.0 RDW 14.6 Plt Count 358 MPV 10.5 Immature Gran % (Auto) 0.7 H Neut % (Auto) 78.4 H Lymph % (Auto) 10.5 L [place] % (Auto) 7.5 Eos % (Auto) 2.4 Baso % (Auto) 0.5 Lymph # (Auto) 1.2 [place] # (Auto) 0.9 Eos # (Auto) 0.3 Baso # (Auto) 0.1 Abs Immat Gran (auto) 0.08 H Absolute Neuts (auto) 9.1 H Absolute Nucleated RBC 0.020 H Nucleated RBC % (auto) 0.2 Anion Gap 15 Estim Creat Clear Calc 37.4 Estimated GFR 43 POC Glucose 251 H 262 H Random Glucose 195 H Calcium 9.7 D Assessment and Plan (1) Hypoxic respiratory failure: Status: Acute Plan 78 yo F with multiple medical issues who presented after what appears to be a syncopal episode. She was found to be hypoxic in the ED and hence is admitted for further treatment. #Acute respiratory failure with hypoxia- suspect this is actually chronic hypoxemic respiratory failure secondary to worsening COPD/chronic bronchitis initially felt to be secondary to COPD with contribution of anemia; s/p 1 dose iv solu-medrol No significant wheezing or distress,doubt COPD exacerbation, but still desaturated in the mid 80s on RA VQ scan negative for PE echo showed hyperdynamic LV systolic fx EF 70% with impaired relaxation pattern. No vavlular disease hold off further steroids for now as patient / daughter report adverse effects (hyperglycemia, weakness, confusion) in the past with steroids Pulm consult- per pulm, continue Breo ellipta, add spiriva and azithro 500mg PO x 3 days chest physiotherapy with aerobika valve pt eval, suspect will need STR, otherwise home O2 eval #Acute normocytic Anemia- stable, no indication for transfusion fobt negative, no evidence of active bleed seen by GI -- declines egd/colo po ppi, add ferrous sulfate follow h/h #HAYDEE CPAP #hx of TIA DAPT + statin #HFpEF doesnt appear to be on diuretics, euvolemic #DM basal + bolus poc glucose, diabetic diet Full Code DVT pptx -- anemia stable, no evidence of bleeding, add subcut heparin Pt requires ongoing inpt stay due to persistent hypoxia with expert consultation and awaiting PT eval for dispo, suspect will need STR otherwise home with PT and home O2 eval Quality Stroke Does the patient have a stroke diagnosis?: No VTE Prior VTE?: No VTE Risk Level:: Medical - moderate - high VTE Device Contraindication: Treatment Not Indicated VTE Drug Contraindication: N/A - Med Ordered
[2024-05-19 07:27] LABS: Glucose, Whole Blood 188 mg/dL (60-115)
[2024-05-19] MEDS: Ferrous Sulfate 324 MG TABLET.DR 325 MG PO (07:54)
[2024-05-19] MEDS: Insulin Lispro 100 UNIT/ML 3 ML VIAL SUBCUT ×4 (07:54→20:15)
[2024-05-19] MEDS: Clopidogrel Bisulfate 75 MG TABLET PO (07:55)
[2024-05-19] MEDS: Aspirin Enteric Coated 81 MG TABLET.DR PO (07:55)
[2024-05-19] MEDS: Fluticasone Propionate Nasal 16 GM SPRAY 1 SPRAY NOSTRIL-B (07:55)
[2024-05-19] MEDS: Ascorbic Acid 250 MG TABLET PO (07:55)
[2024-05-19] MEDS: FLUoxetine HCl 20 MG CAPSULE PO (07:55)
[2024-05-19] MEDS: Metoprolol Tartrate 50 MG TABLET PO ×2 (07:55→20:15)
[2024-05-19] MEDS: 0.9 % Sodium Chloride Flush 3 ML SYRINGE IVFLUSH ×3 (07:56→20:16)
[2024-05-19] MEDS: Fluticasone/Vilanterol 200/25 BLST.W.DEV 1 PUFF INHALE (08:02)
[2024-05-19] MEDS: Albuterol/Iprat 2.5/0.5MG 3 ML AMPUL.NEB INHALE ×4 (08:02→20:02)
[2024-05-19 10:57] LABS: Glucose, Whole Blood 301 mg/dL (60-115)
--- NOTE | 2024-05-19 11:32 | P.CONPL_ITS ---
History of Present Illness History of Present Illness Consult date: 05/19/24 Chief complaint: Hypoxic respiratory failure Narrative: This is an inpatient pulmonary consultation. The patient is a 78 years old woman with past medical history significant for HAYDEE on CPAP, morbid obesity, COPD no home oxygen, hyperlipidemia, type 2 diabetes mellitus insulin, HFpEF, PAD, TIA on Plavix and aspirin was brought to the ED via EMS after she fell down today while she was pulling down her pull-ups before using the toilet. Patient did not remember exactly what happened before losing consciousness. She denied dizziness or chest pain. She does complain of shortness on breath productive cough that has been going on for awhile. In the ED, she was found to have stable vital signs. She was placed on supplemental oxygen via nasal cannula and currently on 2 liters/minute. Troponin is 23.4 --> 20.[address] scan, personally reviewed by me, showed no evidence of traumatic injury in the chest, just moderate amount of atelectasis bilateral. The patient has been on 2 L of oxygen responding well to therapy. She does have a coughing sometimes expectorating phlegm. We did provide her with an Aerobika flutter valve. She was able to using quickly started coughing up mucus. Likely has a component of chronic bronchitis that needs to be treated in order to improve her gas exchange. Overall the patient is well from a respiratory status she needs start maintenance respiratory therapy and should follow-up with outpatient Pulmonary. Review of Systems 2 Constitutional: Constitutional: Reports no additional constitutional complaints Cardiovascular: Cardiovascular: Reports dyspnea on exertion Respiratory: Respiratory: Reports chest congestion, Reports cough, Reports dyspnea on exertion and Reports wheezing Gastrointestinal: Gastrointestinal: Reports no additional gastrointestinal complaints Musculoskeletal: Musculoskeletal: Reports myalgias Hematologic/Lymphatic: Hematologic/Lymphatic: Reports no additional hematologic/lymphatic complaints Allergic/Immunologic: Allergic/Immunologic: Reports wheezing PMFSH Past Medical History Medical History (Updated 05/19/24 @ 11:38 by Tomas Catherine MD) Stenosis of left subclavian artery Multiple falls Macular degeneration Overactive bladder Chest tightness Abnormal nuclear stress test Cataract HAYDEE on CPAP Mild anemia Hypercholesterolemia Resting tremor Osteoarthritis Unsteady gait Vertigo Sleep apnea Diabetic retinopathy Hiatal hernia Depression COPD (chronic obstructive pulmonary disease) CKD (chronic kidney disease) Orthostatic hypotension NSTEMI (non-ST elevated myocardial infarction) Syncope HLD (hyperlipidemia) CAD (coronary artery disease) High cholesterol Diabetes Heart attack Stroke Family History Family History Father CVD (cardiovascular disease) Mother Brain aneurysm Surgical History Surgical History (Updated 05/18/24 @ 14:05 by Darryl Fernandez MD) Status post cardiac catheterization History of cataract extraction Hx of colonoscopy Hx of vaginal hysterectomy Stented coronary artery History of cardiac catheterization Social History Social History Household Members: Significant Other Housing: Apartment Are you a primary urgent care physician to a significant other at home: No Do you presently have visiting nurse or other home services: Yes Unable to assess alcohol history related to: Unknown Alcohol intake: never Patient Tobacco Use Status: Former Tobacco user Tobacco use type: Cigarette Years Smoked: 50 e-Cigarette/Vaping Use: Former Use Second Hand Smoke Exposure: No Advance Directives Date on File: 01/18/23 service: No Current occupational status: retired Meds Allergies Allergy/AdvReac Type Severity Reaction Status Date / Time adhesive tape Allergy Mild Unknown Verified 05/16/24 13:16 bee pollen [bee stings] Allergy Mild Swelling Verified 05/16/24 13:16 oxycodone [OXYCODONE] Allergy Mild ITCHING, Verified 05/16/24 13:16 itchy prednisone Allergy Unknown Verified 05/16/24 13:16 hydromorphone [From DILAUDID] AdvReac Mild ITCHING Verified 05/16/24 13:16 Active Medications: Current Medications Acetaminophen (Acetaminophen 325 Mg Tablet) 975 mg PO Q6H PRN PRN Reason: Pain, Mild (Pain Scale 1-3), fever or headache Albuterol Sulfate (Albuterol Sulfate (0.083%) 2.5 Mg/3 Ml Vial.Neb) 2.5 mg INHALE Q2H PRN PRN Reason: Shortness of Breath/Wheezing Albuterol Sulfate (Albuterol Sulfate 90 Mcg 8 Gm Inhaler) 2 puff INHALE Q4H PRN PRN Reason: wheezing Albuterol/Ipratropium (Albuterol/Iprat 2.5/0.5mg 3 Ml Ampul.Neb) 3 ml INHALE RQ4H WHILE AWAKE [facility] Last Admin: 05/19/24 08:02 Dose: 3 ml Amlodipine Besylate (Amlodipine Besylate 2.5 Mg Tablet) 2.5 mg PO DAILY@1200 [facility]; Protocol Last Admin: 05/18/24 12:23 Dose: 2.5 mg Ascorbic Acid (Ascorbic Acid 250 Mg Tablet) 250 mg PO DAILY [facility] Last Admin: 05/19/24 07:55 Dose: 250 mg Aspirin (Aspirin Enteric Coated 81 Mg Tablet.) 81 mg PO DAILY [facility] Last Admin: 05/19/24 07:55 Dose: 81 mg Atorvastatin Calcium (Atorvastatin Calcium 80 Mg Tablet) 80 mg PO BEDTIME [facility] Last Admin: 05/18/24 20:53 Dose: 80 mg Clopidogrel Bisulfate (Clopidogrel Bisulfate 75 Mg Tablet) 75 mg PO DAILY [facility] Last Admin: 05/19/24 07:55 Dose: 75 mg Docusate Sodium (Docusate Sodium 100 Mg Capsule) 100 mg PO BID PRN PRN Reason: Constipation Ezetimibe (Ezetimibe 10 Mg Tablet) 10 mg PO BEDTIME [facility] Last Admin: 05/18/24 20:53 Dose: 10 mg Ferrous Sulfate (Ferrous Sulfate 324 Mg Tablet.) 325 mg PO DAILY [facility] Last Admin: 05/19/24 07:54 Dose: 325 mg Fluoxetine HCl (Fluoxetine Hcl 20 Mg Capsule) 20 mg PO DAILY [facility] Last Admin: 05/19/24 07:55 Dose: 20 mg Fluticasone Propionate (Fluticasone Propionate Nasal 16 Gm [place]) 1 spray NOSTRIL-B DAILY [facility] Last Admin: 05/19/24 07:55 Dose: 1 spray Fluticasone/Vilanterol (Fluticasone/Vilanterol 200/25 Blst.W.Dev) 1 puff INHALE RDAILY [facility] Last Admin: 05/19/24 08:02 Dose: 1 puff Glucose (Glucose Gel 15 Gm Gel..Gram.) 15 gm PO Q15M PRN; Protocol PRN Reason: per Hypoglycemia Standing Ord. Dextrose (D10) 250 mls @ 750 mls/hr IV Q15M PRN; Protocol PRN Reason: per Hypoglycemia Standing Ord. Insulin Glargine (Insulin Glargine,Hum.Rec.Anlog 100 Unit/Ml 10 Ml Vial) 37 unit SUBCUT BEDTIME [facility] Last Admin: 05/18/24 20:55 Dose: 37 unit Insulin Human Lispro (Insulin Lispro 100 Unit/Ml 3 Ml Vial) 0 unit SUBCUT QIDACHS [facility]; Protocol Last Admin: 05/19/24 07:54 Dose: 2 unit Loratadine (Loratadine 10 Mg Tablet) 10 mg PO DAILY PRN PRN Reason: Allergy Symptoms Metoprolol Tartrate (Metoprolol Tartrate 50 Mg Tablet) 50 mg PO BID [facility]; Protocol Last Admin: 05/19/24 07:55 Dose: 50 mg Nitroglycerin (Nitroglycerin 0.4 Mg Tab.Subl) 0.4 mg SUBLINGUAL Q5M PRN PRN Reason: chest pain Pantoprazole Sodium (Pantoprazole Sodium 20 Mg Tablet.Dr) 20 mg PO DAILY@0630 [facility] Last Admin: 05/19/24 06:07 Dose: 20 mg Sodium Chloride (0.9 % Sodium Chloride Flush 3 Ml Syringe) [facility] Last Admin: 05/19/24 07:56 Dose: 3 ml Sodium Chloride (Sodium Chloride 0.65 % Nasal 44 Ml Sprbtl) 1 spray NOSTRIL-B Q1H PRN PRN Reason: nasal congestion/dryness Last Admin: 05/18/24 17:08 Dose: 1 spray Home Medications ?Medication ?Instructions ?Recorded ?Confirmed ?Last Taken ?Type atorvastatin 80 mg tablet 80 mg PO BEDTIME 12/08/20 05/17/24 05/16/24 History ezetimibe 10 mg tablet 10 mg PO BEDTIME 12/08/20 05/17/24 05/16/24 History fluoxetine 20 mg capsule 20 mg PO DAILY 12/08/20 05/17/24 05/16/24 History losartan 100 mg tablet 100 mg PO BID 12/08/20 05/17/24 05/16/24 History metformin 500 mg tablet 500 mg PO BIDWM 12/08/20 05/17/24 05/16/24 History pen needle, diabetic 32 gauge x #50 ea 05/25/21 11/07/23 Unknown History albuterol sulfate 90 mcg/actuation 2 puff inhalation Q4-6H PRN 01/10/23 05/17/24 05/16/24 History aerosol inhaler wheezing acetaminophen 325 mg tablet 650 mg PO Q6H PRN Pain 04/30/24 05/17/24 Unknown History (Tylenol) amlodipine 2.5 mg tablet 2.5 mg PO DAILY@1200 04/30/24 05/17/24 05/16/24 History aspirin 81 mg tablet,delayed 81 mg PO DAILY 04/30/24 05/17/24 05/16/24 History release fluticasone propionate 50 1 spray intranasal DAILY 04/30/24 05/17/24 05/16/24 History mcg/actuation nasal spray,suspension loratadine 10 mg tablet 10 mg PO DAILY PRN Allergy Symptoms 04/30/24 05/17/24 Unknown History vit C 250 mg-vit E 90 mg-zinc 40 1 tab PO BID 04/30/24 05/17/24 05/16/24 History mg-copper 1 of-vxnsyo-lbtwue capsule (PreserVision AREDS-2) docusate sodium 100 mg capsule 100 mg PO BID PRN Constipation 05/17/24 05/17/24 Unknown History (Colace) insulin glargine 100 unit/mL (3 37 unit subcut BEDTIME 05/17/24 05/17/24 05/16/24 History mL) subcutaneous pen (Lillyaglsheridan Mai U-100 Insulin) metoprolol tartrate 50 mg tablet 50 mg PO BID 05/17/24 05/17/24 05/16/24 History Physical Exam 2 Vital Signs: Vital Signs: Last Vital Signs Temp 97.9 F 05/19/24 11:25 Pulse 62 05/19/24 11:25 Resp 20 05/19/24 11:25 BP 146/65 H 05/19/24 11:25 Pulse Ox 92 05/19/24 11:25 O2 Del Method Nasal Cannula 05/19/24 11:25 O2 Flow Rate 2 05/19/24 11:25 Oxygen Flow Rate 2 05/16/24 13:15 BMI result Body Mass Index 39.5 Const: General: cooperative, comfortable, alert and awake Nutritional Appearance: obese Orientation/consciousness: patient oriented x3 HEENT: Head: Yes atraumatic Neck: Neck: Yes supple Chest: Chest palpation & inspection: normal inspection of the chest Resp: Effort & Inspection: normal respiratory effort Auscultation: d iminished lung sounds Cardio: Rate: regular rate GI: Inspection: No distended Palpation (GI): Soft to palpation Skin: General skin exam: no rashes or lesions noted Neuro: General: patient oriented x3 and moves all extremities Extrem: General: Yes no pedal edema Results Laboratory Findings 05/19/24 05:58 05/19/24 05:58 ABG, PT/INR, D-dimer: PT/INR, D-dimer PT 14.9 SEC (11.1-13.3) H 05/16/24 21:55 INR 1.2 (0.9-1.1) H 05/16/24 21:55 Abnormal lab findings: Abnormal Labs 05/16/24 05/16/24 05/16/24 13:18 13:39 14:53 WBC 12.1 H RBC 3.20 L D Hgb 10.0 L D Hct 31.2 L Immature Gran % (Auto) 0.5 H Neut % (Auto) 81.2 H Lymph % (Auto) 9.3 L Grand % (Auto) Lymph # (Auto) 1.1 L Abs Immat Gran (auto) 0.06 H Absolute Neuts (auto) 9.9 H Absolute Nucleated RBC PT INR VBG pH Sodium Carbon Dioxide BUN 25 H Creatinine POC Glucose 150 H Random Glucose 173 H Iron TIBC Ferritin AST 46 H ALT 32 H Alkaline Phosphatase 134 H Lactate Dehydrogenase Troponin I High Sens 23.4 H D 20.3 H B-Natriuretic Peptide 322 H Albumin 3.1 L Ur Specific [place] 05/16/24 05/16/24 05/16/24 16:23 21:55 21:59 WBC RBC Hgb Hct Immature Gran % (Auto) Neut % (Auto) Lymph % (Auto) Grand % (Auto) Lymph # (Auto) Abs Immat Gran (auto) Absolute Neuts (auto) Absolute Nucleated RBC PT 14.9 H INR 1.2 H VBG pH 7.45 H Sodium Carbon Dioxide BUN Creatinine POC Glucose Random Glucose Iron TIBC Ferritin AST ALT Alkaline Phosphatase Lactate Dehydrogenase Troponin I High Sens B-Natriuretic Peptide Albumin Ur Specific [place] >= 1.030 H 05/17/24 05/17/24 05/17/24 00:12 07:48 10:19 WBC RBC 3.04 L Hgb 9.4 L Hct 29.5 L Immature Gran % (Auto) 0.8 H Neut % (Auto) 91.9 H Lymph % (Auto) 5.9 L Grand % (Auto) 1.2 L Lymph # (Auto) 0.6 L Abs Immat Gran (auto) 0.08 H Absolute Neuts (auto) 8.8 H Absolute Nucleated RBC 0.020 H PT INR VBG pH Sodium 134 L Carbon Dioxide 18 L BUN 24 H Creatinine 1.45 H POC Glucose 141 H 243 H Random Glucose 354 H* Iron TIBC Ferritin AST ALT Alkaline Phosphatase Lactate Dehydrogenase Troponin I High Sens B-Natriuretic Peptide Albumin Ur Specific [place] 05/17/24 05/17/24 05/17/24 11:39 16:10 16:23 WBC RBC Hgb Hct Immature Gran % (Auto) Neut % (Auto) Lymph % (Auto) Grand % (Auto) Lymph # (Auto) Abs Immat Gran (auto) Absolute Neuts (auto) Absolute Nucleated RBC PT INR VBG pH Sodium Carbon Dioxide BUN Creatinine POC Glucose 340 H 358 H* Random Glucose Iron 27 L TIBC 160 L Ferritin 309 H AST ALT Alkaline Phosphatase Lactate Dehydrogenase 232 H Troponin I High Sens B-Natriuretic Peptide Albumin Ur Specific [place] 05/17/24 05/18/24 05/18/24 20:39 07:13 11:03 WBC RBC Hgb Hct Immature Gran % (Auto) Neut % (Auto) Lymph % (Auto) Grand % (Auto) Lymph # (Auto) Abs Immat Gran (auto) Absolute Neuts (auto) Absolute Nucleated RBC PT INR VBG pH Sodium Carbon Dioxide BUN Creatinine POC Glucose 331 H 241 H 270 H Random Glucose Iron TIBC Ferritin AST ALT Alkaline Phosphatase Lactate Dehydrogenase Troponin I High Sens B-Natriuretic Peptide Albumin Ur Specific [place] 05/18/24 05/18/24 05/18/24 13:17 16:18 20:36 WBC 14.5 H RBC 2.95 L Hgb 9.2 L Hct 28.9 L Immature Gran % (Auto) 0.6 H Neut % (Auto) 84.4 H Lymph % (Auto) 8.9 L Grand % (Auto) Lymph # (Auto) Abs Immat Gran (auto) 0.09 H Absolute Neuts (auto) 12.2 H Absolute Nucleated RBC PT INR VBG pH Sodium Carbon Dioxide BUN Creatinine POC Glucose 251 H 262 H Random Glucose Iron TIBC Ferritin AST ALT Alkaline Phosphatase Lactate Dehydrogenase Troponin I High Sens B-Natriuretic Peptide Albumin Ur Specific [place] 05/19/24 05/19/24 05/19/24 05:58 07:13 10:44 WBC 11.6 H RBC 3.05 L Hgb 9.5 L Hct 29.7 L Immature Gran % (Auto) 0.7 H Neut % (Auto) 78.4 H Lymph % (Auto) 10.5 L Grand % (Auto) Lymph # (Auto) Abs Immat Gran (auto) 0.08 H Absolute Neuts (auto) 9.1 H Absolute Nucleated RBC 0.020 H PT INR VBG pH Sodium Carbon Dioxide BUN 23 H Creatinine POC Glucose 188 H 301 H Random Glucose 195 H Iron TIBC Ferritin AST ALT Alkaline Phosphatase Lactate Dehydrogenase Troponin I High Sens B-Natriuretic Peptide Albumin Ur Specific [place] Assessment and Plan (1) Hypoxic respiratory failure: Qualifiers: Chronicity: acute Qualified Code(s): J96.01 - Acute respiratory failure with hypoxia Status: Acute (2) COPD exacerbation: Status: Acute (3) HAYDEE on CPAP: Status: Acute Plan continiue oxygen supplementation to keep pox>90% continue Breo Add Spiriva CPT with aerobika (provided) for much clearance Abx ZTX or Doxy to treat bronchitis (likely chronic bronchitis) continue CPAP PT tod Will have her f/u with outpt pulmonary Procedures Date of Service Date of Service: 05/19/24
[2024-05-19] MEDS: amLODIPine Besylate 2.5 MG TABLET PO (12:00)
[2024-05-19] MEDS: Azithromycin 500 MG TABLET PO (12:00)
[2024-05-19] MEDS: Heparin Sodium,Porcine 5,000 UNIT/ML VIAL 5000 UNIT SUBCUT ×2 (12:06→23:34)
[2024-05-19] MEDS: Nystatin Powder 15 GM BOTTLE 1 APPL TOPICAL ×2 (12:07→20:21)
--- NOTE | 2024-05-19 15:16 | MHC.CM.PN ---
PT rec STR. This CM met with pt and her daughter/HCP Misty present at bedside to discuss rehab options. Their first choice is [facility] as they have been there in the past and had a very good experience. Their second choice is [facility]. They would not like to go to [facility], [facility], [place], or [facility]. Referral placed to [facility] in [facility] [place].
[2024-05-19 16:05] LABS: Glucose, Whole Blood 297 mg/dL (60-115)
[2024-05-19] MEDS: Docusate Sodium 100 MG CAPSULE PO (17:16)
[2024-05-19 19:55] LABS: Glucose, Whole Blood 232 mg/dL (60-115)
[2024-05-19] MEDS: Ezetimibe 10 MG TABLET PO (20:14)
[2024-05-19] MEDS: Atorvastatin Calcium 80 MG TABLET PO (20:15)
[2024-05-19] MEDS: Insulin Glargine,Hum.rec.anlog 100 UNIT/ML 10 ML VIAL 42 UNIT SUBCUT (20:16)
[2024-05-19] MEDS: Furosemide 100 MG/10 ML VIAL 60 MG IVPUSH (21:27)
[2024-05-19 22:07] LABS: Hematocrit 31.4 % (37.0-47.0); Hemoglobin 9.8 g/dl (12.0-16.0); Mean Corpuscular HGB Conc 31.2 g/dl (31.0-35.0); Mean Corpuscular Hemoglobin 30.5 pg (27.0-33.0); Mean Corpuscular Volume 97.8 fL (80.0-98.0); Mean Platelet Volume 10.2 fL (9.4-12.3); NRBC Pct Auto 0.2 /100WBC (0.0-0.2); Platelet Count 350 X10*3/uL (160-400); Red Blood Count 3.21 X10*6/uL (4.20-5.50); Red Cell Distribution Width 14.4 % (11.0-16.0); White Blood Count 11.4 X10*3/uL (4.8-10.8)
[2024-05-19 22:27] LABS: Alanine Aminotransferase 31 U/L (0-31); Alkaline Phosphatase 120 U/L (39-117); Anion Gap 16 (12-20); Aspartate Amino Transferase 18 U/L (5-31); Bilirubin Total 0.5 mg/dL (0.0-1.0); Blood Urea Nitrogen 21 mg/dL (9-16); Calcium 9.8 mg/dL (8.4-10.2); Carbon Dioxide 20 mmol/L (22-29); Chloride 104 mmol/L (96-108); Estimated Glomerular Filt Rate 46; Glucose Random 305 mg/dL (60-115); Potassium 4.3 mmol/L (3.3-5.1); Sodium 136 mmol/L (135-145); Total Protein 6.8 g/dL (6.5-8.0)
[2024-05-19 22:29] LABS: B Type Natriuretic Peptide 609 pg/mL (<100)
[2024-05-20] VITALS (16 sets, daily range): BP systolic 121–151; BP diastolic 54–64; PULSE 69–86; RESP 18–20; TEMP 36.1–37; O2SAT 90–98
--- NOTE | 2024-05-20 00:48 | HE.NUR.EV ---
Status Change: Pt desated on CPAP to 71%, this RN alerted by CLINICAL ACADEMIC ALLERGIST. RURAL SERVICE ENGINEER immediately called. This occurred approx 05/19. Pt was AOx3 at the time, did c/o some SOB. Immediate Actions Taken: RURAL SERVICE ENGINEER called, MD, RN, RT bedside; pt placed back on NC 2L O2 Notifications: MD bedside Further Monitoring and Treatment: Stat CXR ordered, stat lasix ordered. Pulse oximetry remains in place
--- NOTE | 2024-05-20 03:20 | PC.NURSE ---
PT AOx3, able to make needs known. She was OOB in the chair at the beginning of this RNs shift. Pt back to bed. See event note. Currently pt is sleeping w/CPAP and 2L O2 w/an O2 sat of 94%. Pt has no c/o pain. Purewick is in place Call talbert within reach. Bed alarm on. Safety maintained throughout shift.
[2024-05-20] MEDS: Pantoprazole Sodium 20 MG TABLET.DR PO (05:52)
[2024-05-20 07:36] LABS: Glucose, Whole Blood 201 mg/dL (60-115)
[2024-05-20] MEDS: Albuterol/Iprat 2.5/0.5MG 3 ML AMPUL.NEB INHALE ×4 (07:37→19:41)
[2024-05-20] MEDS: Fluticasone/Vilanterol 200/25 BLST.W.DEV 1 PUFF INHALE (07:38)
[2024-05-20] MEDS: Insulin Lispro 100 UNIT/ML 3 ML VIAL SUBCUT ×4 (08:23→20:23)
[2024-05-20] MEDS: Aspirin Enteric Coated 81 MG TABLET.DR PO (08:24)
[2024-05-20] MEDS: Clopidogrel Bisulfate 75 MG TABLET PO (08:24)
[2024-05-20] MEDS: Ferrous Sulfate 324 MG TABLET.DR 325 MG PO (08:24)
[2024-05-20] MEDS: FLUoxetine HCl 20 MG CAPSULE PO (08:24)
[2024-05-20] MEDS: Metoprolol Tartrate 50 MG TABLET PO ×2 (08:24→20:20)
[2024-05-20] MEDS: Ascorbic Acid 250 MG TABLET PO (08:25)
[2024-05-20] MEDS: 0.9 % Sodium Chloride Flush 3 ML SYRINGE IVFLUSH ×2 (08:25→17:27)
[2024-05-20] MEDS: Fluticasone Propionate Nasal 16 GM SPRAY 1 SPRAY NOSTRIL-B (08:27)
[2024-05-20] MEDS: Nystatin Powder 15 GM BOTTLE 1 APPL TOPICAL ×2 (08:27→20:27)
--- NOTE | 2024-05-20 10:56 | HO.PM.IMPN ---
Subjective Subjective Date of Service: 05/20/24 Interval History: Seen in follow up for hypoxia interval history reports dyspnea improve when wearing O2, reports congestion in throat Review of Systems Review of Systems: Yes all other systems are reviewed and are negative Physical Exam Vital Signs: Vital Signs: Last Vital Signs Temp 98.0 F 05/20/24 08:00 Pulse 86 05/20/24 08:24 Resp 20 05/20/24 08:00 BP 151/62 H 05/20/24 08:24 Pulse Ox 98 05/20/24 08:00 O2 Del Method Nasal Cannula 05/20/24 03:38 O2 Flow Rate 2 05/20/24 03:38 Oxygen Flow Rate 2 05/16/24 13:15 BMI result Body Mass Index 39.5 Appearing in no acute distress lung sounds are clear to auscultation heart regular rate rhythm, clear S1, S2 positive bowel sounds, abdomen is soft, nontender neuro patient is alert x3, no focal deficits Objective Data Active Medications Acetaminophen (Acetaminophen 325 Mg Tablet) 975 mg PO Q6H PRN PRN Reason: Pain, Mild (Pain Scale 1-3), fever or headache Albuterol Sulfate (Albuterol Sulfate (0.083%) 2.5 Mg/3 Ml Vial.Neb) 2.5 mg INHALE Q2H PRN PRN Reason: Shortness of Breath/Wheezing Albuterol Sulfate (Albuterol Sulfate 90 Mcg 8 Gm Inhaler) 2 puff INHALE Q4H PRN PRN Reason: wheezing Albuterol/Ipratropium (Albuterol/Iprat 2.5/0.5mg 3 Ml Ampul.Neb) 3 ml INHALE RQ4H WHILE AWAKE [facility] Last Admin: 05/20/24 07:37 Dose: 3 ml Documented By: EVA Amlodipine Besylate (Amlodipine Besylate 2.5 Mg Tablet) 2.5 mg PO DAILY@1200 [facility]; Protocol Last Admin: 05/19/24 12:00 Dose: 2.5 mg Documented By: MARY Ascorbic Acid (Ascorbic Acid 250 Mg Tablet) 250 mg PO DAILY [facility] Last Admin: 05/20/24 08:25 Dose: 250 mg Documented By: MARY Aspirin (Aspirin Enteric Coated 81 Mg Tablet.) 81 mg PO DAILY [facility] Last Admin: 05/20/24 08:24 Dose: 81 mg Documented By: MARY Atorvastatin Calcium (Atorvastatin Calcium 80 Mg Tablet) 80 mg PO BEDTIME [facility] Last Admin: 05/19/24 20:15 Dose: 80 mg Documented By: ROQUE Azithromycin (Azithromycin 500 Mg Tablet) 500 mg PO Q24H [facility] Stop: 05/21/24 11:46 Last Admin: 05/19/24 12:00 Dose: 500 mg Documented By: MARY Clopidogrel Bisulfate (Clopidogrel Bisulfate 75 Mg Tablet) 75 mg PO DAILY [facility] Last Admin: 05/20/24 08:24 Dose: 75 mg Documented By: MARY Docusate Sodium (Docusate Sodium 100 Mg Capsule) 100 mg PO BID PRN PRN Reason: Constipation Last Admin: 05/19/24 17:16 Dose: 100 mg Documented By: MARY Ezetimibe (Ezetimibe 10 Mg Tablet) 10 mg PO BEDTIME [facility] Last Admin: 05/19/24 20:14 Dose: 10 mg Documented By: ROQUE Ferrous Sulfate (Ferrous Sulfate 324 Mg Tablet.Dr) 325 mg PO DAILY [facility] Last Admin: 05/20/24 08:24 Dose: 325 mg Documented By: MARY Fluoxetine HCl (Fluoxetine Hcl 20 Mg Capsule) 20 mg PO DAILY [facility] Last Admin: 05/20/24 08:24 Dose: 20 mg Documented By: MARY Fluticasone Propionate (Fluticasone Propionate Nasal 16 Gm [place]) 1 spray NOSTRIL-B DAILY [facility] Last Admin: 05/20/24 08:27 Dose: 1 spray Documented By: MARY Fluticasone/Vilanterol (Fluticasone/Vilanterol 200/25 Blst.W.Dev) 1 puff INHALE RDAILY [facility] Last Admin: 05/20/24 07:38 Dose: 1 puff Documented By: GLUCHIP Glucose (Glucose Gel 15 Gm Gel..Gram.) 15 gm PO Q15M PRN; Protocol PRN Reason: per Hypoglycemia Standing Ord. Heparin Sodium (Porcine) (Heparin Sodium,Porcine 5,000 Unit/Ml Vial) 5,000 unit SUBCUT Q12H [facility] Last Admin: 05/19/24 23:34 Dose: 5,000 unit Documented By: ROQUE Dextrose (D10) 250 mls @ 750 mls/hr IV Q15M PRN; Protocol PRN Reason: per Hypoglycemia Standing Ord. Insulin Glargine (Insulin Glargine,Hum.Rec.Anlog 100 Unit/Ml 10 Ml Vial) 42 unit SUBCUT BEDTIME [facility] Last Admin: 05/19/24 20:16 Dose: 42 unit Documented By: ROQUE Insulin Human Lispro (Insulin Lispro 100 Unit/Ml 3 Ml Vial) 0 unit SUBCUT QIDACHS [facility]; Protocol Last Admin: 05/20/24 08:23 Dose: 4 unit Documented By: MARY Loratadine (Loratadine 10 Mg Tablet) 10 mg PO DAILY PRN PRN Reason: Allergy Symptoms Metoprolol Tartrate (Metoprolol Tartrate 50 Mg Tablet) 50 mg PO BID [facility]; Protocol Last Admin: 05/20/24 08:24 Dose: 50 mg Documented By: MARY Nitroglycerin (Nitroglycerin 0.4 Mg Tab.Subl) 0.4 mg SUBLINGUAL Q5M PRN PRN Reason: chest pain Nystatin (Nystatin Powder 15 Gm Bottle) 1 appl TOPICAL BID [facility]; Protocol Last Admin: 05/20/24 08:27 Dose: 1 appl Documented By: MARY Pantoprazole Sodium (Pantoprazole Sodium 20 Mg Tablet.Dr) 20 mg PO DAILY@0630 [facility] Last Admin: 05/20/24 05:52 Dose: 20 mg Documented By: ROQUE Sodium Chloride (0.9 % Sodium Chloride Flush 3 Ml Syringe) 3 ml IVFLUSH QSHIFT [facility] Last Admin: 05/20/24 08:25 Dose: 3 ml Documented By: MARY Sodium Chloride (Sodium Chloride 0.65 % Nasal 44 Ml Sprbtl) 1 spray NOSTRIL-B Q1H PRN PRN Reason: nasal congestion/dryness Last Admin: 05/18/24 17:08 Dose: 1 spray Documented By: MARY Tiotropium [place] (Tiotropium [place] 2.5 Mcg 1 Puff/2.5 Mcg Mist.Inhal) 2 puff INHALE RDAILY [facility] Last Admin: 05/20/24 08:39 Dose: Not Given Documented By: EVA Non-Admin Reason: Med Not Available Labs 05/19/24 21:57 05/19/24 21:57 Labs: Laboratory Results - last 24 hr 05/19/24 05/19/24 05/19/24 10:44 15:57 19:48 MCV MCH MCHC RDW Plt Count MPV Absolute Nucleated RBC Nucleated RBC % (auto) Anion Gap Estim Creat Clear Calc Estimated GFR POC Glucose 301 H 297 H 232 H Random Glucose Calcium Total Bilirubin AST ALT Alkaline Phosphatase B-Natriuretic Peptide Total Protein Albumin 05/19/24 05/20/24 21:57 07:23 MCV 97.8 MCH 30.5 MCHC 31.2 RDW 14.4 Plt Count 350 MPV 10.2 Absolute Nucleated RBC 0.020 H Nucleated RBC % (auto) 0.2 Anion Gap 16 Estim Creat Clear Calc 39.0 Estimated GFR 46 POC Glucose 201 H Random Glucose 305 H Calcium 9.8 Total Bilirubin 0.5 AST 18 ALT 31 Alkaline Phosphatase 120 H B-Natriuretic Peptide 609 H Total Protein 6.8 Albumin 3.0 L Assessment and Plan (1) Hypoxic respiratory failure: Status: Acute Plan 78 yo F with multiple medical issues who presented after what appears to be a syncopal episode. She was found to be hypoxic in the ED and hence is admitted for further treatment. HFpEF not on baseline diuretics elevated BNP overnight with some congestion noted on cxr IV lasix x1 cardiology consult pending Acute respiratory failure with hypoxia suspect this is actually chronic hypoxemic respiratory failure secondary to worsening COPD/chronic bronchitis No significant wheezing or distress VQ scan negative for PE echo showed hyperdynamic LV systolic fx EF 70% with impaired relaxation pattern. hold off further steroids for now as patient / daughter report adverse effects (hyperglycemia, weakness, confusion) in the past with steroids Pulm consult>continue Breo ellipta, add spiriva and azithro 500mg PO x 3 days chest physiotherapy with aerobika valve desats on room air, will need oxygen on dc Acute normocytic Anemia stable, no indication for transfusion fobt negative, no evidence of active bleed seen by GI -- declines egd/colo po ppi, add ferrous sulfate follow h/h HAYDEE CPAP hx of TIA DAPT + statin DM2 basal + bolus poc glucose, diabetic diet Full Code Attending Dr. Patrick DVT pptx -- anemia stable, no evidence of bleeding, add subcut heparin DISPO pt eval, suspect will need STR, otherwise home O2 eval Pt requires ongoing inpt stay due to persistent hypoxia with expert consultation and awaiting PT eval for dispo, suspect will need STR otherwise home with PT and home O2 eval Quality Stroke Does the patient have a stroke diagnosis?: No VTE Prior VTE?: No VTE Risk Level:: Medical - moderate - high VTE Device Contraindication: Treatment Not Indicated VTE Drug Contraindication: N/A - Med Ordered
--- NOTE | 2024-05-20 11:11 | PM.HEMONCCN ---
Subjective - Subjective Chief complaint: Shortness of breath Patient: new to practice Consult date: 05/20/24 Primary Care Provider: Nahid Waterman MD HPI - Consult Narrative Reason for consult: Anemia Narrative: This is a 78-year-old woman with chronic COPD, HAYDEE, chronic kidney disease stage 3, coronary artery disease with NSTEMI, type 2 diabetes mellitus and history of TIA who is currently admitted for bronchitis/COPD exacerbation. She was noted to develop anemia on 05/16/2024. She has never been told of anemia in the past. On 04/30/2024 her hemoglobin was normal at 14 gram/dL. She says that she has been suffering with shortness of breath for more than a month. She was treated with antibiotics about 3 weeks ago for presumed bronchitis. However she did not feel better and therefore currently admitted for possible sepsis. Earlier this month she was diagnosed with TIA, she is on aspirin and Plavix. She has an ex-smoker, quit more than 20 years ago. No family history of hematological disorders or cancers that she knows of. She is up-to-date with screening colonoscopy. She has had 4 children, 1 of them is now . Review of Systems - Constitutional Reports as per HPI, Reports fatigue, Reports lack of energy, Reports malaise - Cardiovascular Denies chest pain - Respiratory Reports cough, Reports dyspnea - Gastrointestinal Reports no additional gastrointestinal complaints, Denies black, tarry stools, Denies bright, red blood in stools - Neurologic Denies dizziness, Denies loss of vision, Denies numbness, Reports tingling PMFSH Medical History: Medical History (Last Updated 05/19/24 @ 11:38 by Tomas Catherine MD) Abnormal nuclear stress test CAD (coronary artery disease) Cataract Chest tightness CKD (chronic kidney disease) COPD (chronic obstructive pulmonary disease) Depression Diabetes Diabetic retinopathy Heart attack [place] High cholesterol HLD (hyperlipidemia) Hypercholesterolemia Macular degeneration Mild anemia Multiple falls NSTEMI (non-ST elevated myocardial infarction) Orthostatic hypotension AHYDEE on CPAP Osteoarthritis Overactive bladder Resting tremor Sleep apnea Stenosis of left subclavian artery Stroke Syncope Unsteady gait Vertigo Family History: Family History (Last Reviewed 05/17/24 @ 06:37 by Monalisa Humphrey RN) Father CVD (cardiovascular disease) Mother Brain aneurysm Surgical History: Surgical History (Last Reviewed 05/17/24 @ 06:37 by Monalisa Humphrey RN) History of cardiac catheterization History of cataract extraction Hx of colonoscopy Hx of vaginal hysterectomy Status post cardiac catheterization Stented coronary artery Social History: Social History (Last Reviewed 05/17/24 @ 06:38 by Monalisa Humphrey RN) Living Situation History: Household Members: Significant Other Housing: Apartment Are you a primary care nurse rn to a significant other at home: No Do you presently have visiting nurse or other home services: Yes Alcohol History: Unable to assess alcohol history related to: Unknown Tobacco History: Patient Tobacco Use Status: Former Tobacco user Tobacco use type: Cigarette Years Smoked: 50 e-Cigarette/Vaping Use: Former Use Second Hand Smoke Exposure: No Advance Directives: Advance Directives Date on File: 01/18/23 Occupation Assessmet: service: No Current occupational status: retired Home Medications and Allergies Current Medications: Current Medications Acetaminophen (Acetaminophen 325 Mg Tablet) 975 mg PO Q6H PRN PRN Reason: Pain, Mild (Pain Scale 1-3), fever or headache Albuterol Sulfate (Albuterol Sulfate (0.083%) 2.5 Mg/3 Ml Vial.Neb) 2.5 mg INHALE Q2H PRN PRN Reason: Shortness of Breath/Wheezing Albuterol Sulfate (Albuterol Sulfate 90 Mcg 8 Gm Inhaler) 2 puff INHALE Q4H PRN PRN Reason: wheezing Albuterol/Ipratropium (Albuterol/Iprat 2.5/0.5mg 3 Ml Ampul.Neb) 3 ml INHALE RQ4H WHILE AWAKE [facility] Last Admin: 05/20/24 07:37 Dose: 3 ml Amlodipine Besylate (Amlodipine Besylate 2.5 Mg Tablet) 2.5 mg PO DAILY@1200 SARAHI; Protocol Last Admin: 05/19/24 12:00 Dose: 2.5 mg Ascorbic Acid (Ascorbic Acid 250 Mg Tablet) 250 mg PO DAILY [facility] Last Admin: 05/20/24 08:25 Dose: 250 mg Aspirin (Aspirin Enteric Coated 81 Mg Tablet.Dr) 81 mg PO DAILY [facility] Last Admin: 05/20/24 08:24 Dose: 81 mg Atorvastatin Calcium (Atorvastatin Calcium 80 Mg Tablet) 80 mg PO BEDTIME [facility] Last Admin: 05/19/24 20:15 Dose: 80 mg Azithromycin (Azithromycin 500 Mg Tablet) 500 mg PO Q24H [facility] Stop: 05/21/24 11:46 Last Admin: 05/19/24 12:00 Dose: 500 mg Clopidogrel Bisulfate (Clopidogrel Bisulfate 75 Mg Tablet) 75 mg PO DAILY [facility] Last Admin: 05/20/24 08:24 Dose: 75 mg Docusate Sodium (Docusate Sodium 100 Mg Capsule) 100 mg PO BID PRN PRN Reason: Constipation Last Admin: 05/19/24 17:16 Dose: 100 mg Ezetimibe (Ezetimibe 10 Mg Tablet) 10 mg PO BEDTIME [facility] Last Admin: 05/19/24 20:14 Dose: 10 mg Ferrous Sulfate (Ferrous Sulfate 324 Mg Tablet.Dr) 325 mg PO DAILY [facility] Last Admin: 05/20/24 08:24 Dose: 325 mg Fluoxetine HCl (Fluoxetine Hcl 20 Mg Capsule) 20 mg PO DAILY [facility] Last Admin: 05/20/24 08:24 Dose: 20 mg Fluticasone Propionate (Fluticasone Propionate Nasal 16 Gm [place]) 1 spray NOSTRIL-B DAILY [facility] Last Admin: 05/20/24 08:27 Dose: 1 spray Fluticasone/Vilanterol (Fluticasone/Vilanterol 200/25 Blst.W.Dev) 1 puff INHALE RDAILY [facility] Last Admin: 05/20/24 07:38 Dose: 1 puff Glucose (Glucose Gel 15 Gm Gel..Gram.) 15 gm PO Q15M PRN; Protocol PRN Reason: per Hypoglycemia Standing Ord. Heparin Sodium (Porcine) (Heparin Sodium,Porcine 5,000 Unit/Ml Vial) 5,000 unit SUBCUT Q12H [facility] Last Admin: 05/19/24 23:34 Dose: 5,000 unit Dextrose (D10) 250 mls @ 750 mls/hr IV Q15M PRN; Protocol PRN Reason: per Hypoglycemia Standing Ord. Insulin Glargine (Insulin Glargine,Hum.Rec.Anlog 100 Unit/Ml 10 Ml Vial) 42 unit SUBCUT BEDTIME [facility] Last Admin: 05/19/24 20:16 Dose: 42 unit Insulin Human Lispro (Insulin Lispro 100 Unit/Ml 3 Ml Vial) 0 unit SUBCUT QIDACHS [facility]; Protocol Last Admin: 05/20/24 08:23 Dose: 4 unit Loratadine (Loratadine 10 Mg Tablet) 10 mg PO DAILY PRN PRN Reason: Allergy Symptoms Metoprolol Tartrate (Metoprolol Tartrate 50 Mg Tablet) 50 mg PO BID [facility]; Protocol Last Admin: 05/20/24 08:24 Dose: 50 mg Nitroglycerin (Nitroglycerin 0.4 Mg Tab.Subl) 0.4 mg SUBLINGUAL Q5M PRN PRN Reason: chest pain Nystatin (Nystatin Powder 15 Gm Bottle) 1 appl TOPICAL BID [facility]; Protocol Last Admin: 05/20/24 08:27 Dose: 1 appl Pantoprazole Sodium (Pantoprazole Sodium 20 Mg Tablet.Dr) 20 mg PO DAILY@0630 [facility] Last Admin: 05/20/24 05:52 Dose: 20 mg Sodium Chloride (0.9 % Sodium Chloride Flush 3 Ml Syringe) 3 ml IVFLUSH QSHIFT [facility] Last Admin: 05/20/24 08:25 Dose: 3 ml Sodium Chloride (Sodium Chloride 0.65 % Nasal 44 Ml Sprbtl) 1 spray NOSTRIL-B Q1H PRN PRN Reason: nasal congestion/dryness Last Admin: 05/18/24 17:08 Dose: 1 spray Tiotropium [place] (Tiotropium [place] 2.5 Mcg 1 Puff/2.5 Mcg Mist.Inhal) 2 puff INHALE RDAILY [facility] Last Admin: 05/20/24 08:39 Dose: Not Given Home Medications ?Medication ?Instructions ?Recorded ?Confirmed ?Type atorvastatin 80 mg tablet 80 mg PO BEDTIME 12/08/20 05/17/24 History ezetimibe 10 mg tablet 10 mg PO BEDTIME 12/08/20 05/17/24 History fluoxetine 20 mg capsule 20 mg PO DAILY 12/08/20 05/17/24 History losartan 100 mg tablet 100 mg PO BID 12/08/20 05/17/24 History metformin 500 mg tablet 500 mg PO BIDWM 12/08/20 05/17/24 History pen needle, diabetic 32 gauge x #50 ea 05/25/21 11/07/23 History albuterol sulfate 90 mcg/actuation 2 puff inhalation Q4-6H PRN 01/10/23 05/17/24 History aerosol inhaler wheezing acetaminophen 325 mg tablet 650 mg PO Q6H PRN Pain 04/30/24 05/17/24 History (Tylenol) amlodipine 2.5 mg tablet 2.5 mg PO DAILY@1200 04/30/24 05/17/24 History aspirin 81 mg tablet,delayed 81 mg PO DAILY 04/30/24 05/17/24 History release fluticasone propionate 50 1 spray intranasal DAILY 04/30/24 05/17/24 History mcg/actuation nasal spray,suspension loratadine 10 mg tablet 10 mg PO DAILY PRN Allergy Symptoms 04/30/24 05/17/24 History vit C 250 mg-vit E 90 mg-zinc 40 1 tab PO BID 04/30/24 05/17/24 History mg-copper 1 [id number] capsule (PreserVision AREDS-2) docusate sodium 100 mg capsule 100 mg PO BID PRN Constipation 05/17/24 05/17/24 History (Colace) insulin glargine 100 unit/mL (3 37 unit subcut BEDTIME 05/17/24 05/17/24 History mL) subcutaneous pen (Basaglar KwikPen U-100 Insulin) metoprolol tartrate 50 mg tablet 50 mg PO BID 05/17/24 05/17/24 History Allergies Allergy/AdvReac Type Severity Reaction Status Date / Time adhesive tape Allergy Mild Unknown Verified 05/16/24 13:16 bee pollen [bee stings] Allergy Mild Swelling Verified 05/16/24 13:16 oxycodone [OXYCODONE] Allergy Mild ITCHING, Verified 05/16/24 13:16 itchy prednisone Allergy Unknown Verified 05/16/24 13:16 hydromorphone [From DILAUDID] AdvReac Mild ITCHING Verified 05/16/24 13:16 Physical Exam Vital signs: Vital Signs Temp 98.0 F 05/20/24 08:00 Pulse 86 05/20/24 08:24 Resp 20 05/20/24 08:00 BP 151/62 H 05/20/24 08:24 Pulse Ox 98 05/20/24 08:00 O2 Del Method Nasal Cannula 05/20/24 03:38 O2 Flow Rate 2 05/20/24 03:38 Intake & Output 05/19/24 05/20/24 05/20/24 18:59 06:59 18:59 Intake Total 500 / 1420 920 / 1420 Output Total 500 / 2100 1600 / 2100 Balance 0 / -680 -680 / -680 Urine Output (Average ml/kg/hr) 0.47 1.50 Intake: Intake, Oral Amount 500 / 1420 920 / 1420 Output: Output, Urine Amount 500 / 2100 1600 / 2100 Other: Breakfast % Eaten 100% Lunch % Eaten 100% Eating (Feeding) Ability Independent Number of Incontinent Voids 1 Urine purewick Urine Color Yellow Last Bowel Movement 05/17/24 Weight 88.7 kg - Constitutional Present: obese - Routine HEENT Exam Head: Present: normal inspection Eye: Present: PERRL - Routine Neck Exam Present: supple. Absent: lymphadenopathy - Routine Respiratory Exam Present: decreased breath sounds - Routine Cardiovascular Exam Cardiovascular: Present: S1, S2 - Routine Abdominal Exam Present: soft - Routine Extremities Exam Absent: calf tenderness - Routine Skin Exam Present: intact - Routine Neurological Exam Present: alert, oriented X3 Hem/Onc Consult Result - Labs CBC & Chem 7: 05/19/24 21:57 05/19/24 21:57 Labs: Short CBC 05/19/24 Range/Units 21:57 WBC 11.4 H (4.8-10.8) X10*3/uL Hgb 9.8 L (12.0-16.0) g/dl Hct 31.4 L (37.0-47.0) % Plt Count 350 (160-400) X10*3/uL BMP 05/19/24 21:57 Sodium 136 Potassium 4.3 Chloride 104 Carbon Dioxide 20 L BUN 21 H Creatinine 1.15 Calcium 9.8 Liver Function 05/19/24 Range/Units 21:57 Total Bilirubin 0.5 (0.0-1.0) mg/dL AST 18 (5-31) U/L ALT 31 (0-31) U/L Alkaline Phosphatase 120 H (39-117) U/L Albumin 3.0 L (3.5-5.0) g/dL Assessment and Plan Patient Active problem list reviewed?: Yes (1) Anemia Status: Acute Assessment and plan: 1. This is a 78-year-old woman with multiple medical problems including chronic stage 3 kidney disease, diabetes mellitus and coronary artery disease admitted for bronchitis and COPD exacerbation. She was noted to have normocytic anemia, hematological workup shows no hematinic deficiencies or evidence of hemolysis. She was noted to have acute worsening of her kidney functions in early April 2024, creatinine went up to 1.92 mg/dL from 0.83 in 01/2023. Her kidney functions have improved. Submit LFTs. There is no evidence of acute chronic gastrointestinal blood losses. Her normocytic anemia is probably multifactorial related to recent infection, acute on chronic kidney disease and diabetes. Vitamin B12 level is in the low range of normal, methylmalonic acid level is pending. If elevated she can be started on oral supplementation. She had CT chest/ abdomen/pelvis which shows no evidence of hepatosplenomegaly or lymphadenopathy. No suspicion for primary bone marrow disorder such as myelodysplastic syndrome or malignancy at this time. I thank you for this consultation. - Time Spent With Patient Time Spent with Patient (in minutes): 20
[2024-05-20 11:28] LABS: Immature Retic Fraction 26.5 % (3.0-15.9); Retic HGB Equivalent 29.7 pg (30.0-35.0); Reticulocyte Percent 3.3 % (0.5-1.8); Reticulocytes Absolute 0.107 X10*6/uL (0.026-0.095)
[2024-05-20 11:29] LABS: Glucose, Whole Blood 299 mg/dL (60-115)
--- NOTE | 2024-05-20 11:42 | MHC.CM.PN ---
Per MD rounds no dc today. Patient had Hypoxic episode last night. CXR has been done. Patient will need a home O2 eval today. PT recomends STR. [facility] is following for discharge.
[2024-05-20] MEDS: amLODIPine Besylate 2.5 MG TABLET PO (12:30)
[2024-05-20] MEDS: Heparin Sodium,Porcine 5,000 UNIT/ML VIAL 5000 UNIT SUBCUT (12:31)
[2024-05-20] MEDS: Azithromycin 500 MG TABLET PO (12:31)
--- NOTE | 2024-05-20 12:56 | P.PNPL_ITS ---
Subjective Subjective Date of Service: 05/20/24 Interval history: Significant improvement in respiratory status with diuresis. Objective Data Labs 05/19/24 21:57 05/19/24 21:57 Labs: Laboratory Results - last 24 hr 05/19/24 05/19/24 05/19/24 15:57 19:48 21:57 WBC 11.4 H RBC 3.21 L Hgb 9.8 L Hct 31.4 L MCV 97.8 MCH 30.5 MCHC 31.2 RDW 14.4 Plt Count 350 MPV 10.2 Absolute Nucleated RBC 0.020 H Nucleated RBC % (auto) 0.2 Absolute Retic Percent Retic Immature Retic Fraction Retic Hgb Equivalent Sodium 136 Potassium 4.3 Chloride 104 Carbon Dioxide 20 L Anion Gap 16 BUN 21 H Creatinine 1.15 Estim Creat Clear Calc 39.0 Estimated GFR 46 POC Glucose 297 H 232 H Random Glucose 305 H Calcium 9.8 Total Bilirubin 0.5 AST 18 ALT 31 Alkaline Phosphatase 120 H B-Natriuretic Peptide 609 H Total Protein 6.8 Albumin 3.0 L 05/20/24 05/20/24 05/20/24 07:23 11:21 11:24 WBC RBC Hgb Hct MCV MCH MCHC RDW Plt Count MPV Absolute Nucleated RBC Nucleated RBC % (auto) Absolute Retic 0.107 H Percent Retic 3.3 H Immature Retic Fraction 26.5 H Retic Hgb Equivalent 29.7 L Sodium Potassium Chloride Carbon Dioxide Anion Gap BUN Creatinine Estim Creat Clear Calc Estimated GFR POC Glucose 201 H 299 H Random Glucose Calcium Total Bilirubin AST ALT Alkaline Phosphatase B-Natriuretic Peptide Total Protein Albumin Physical Exam 2 Vital Signs: Vital Signs: Last Vital Signs Temp 98.2 F 05/20/24 11:39 Pulse 73 05/20/24 11:39 Resp 20 05/20/24 11:39 BP 141/60 H 05/20/24 12:30 Pulse Ox 94 05/20/24 11:39 O2 Del Method Nasal Cannula 05/20/24 11:39 O2 Flow Rate 2 05/20/24 11:39 Oxygen Flow Rate 2 05/16/24 13:15 BMI result Body Mass Index 39.5 Const: General: no acute distress, alert and awake Eyes: Sclerae: sclerae normal EOM: EOMs intact bilaterally Neck: Neck: Yes no lymphadenopathy, Yes trachea midline and Yes supple Resp: Effort & Inspection: normal respiratory effort and no respiratory distress Auscultation: clear to auscultation bilaterally Cardio: Rate: regular rate Rhythm: regular rhythm Heart sounds: no gallops, no murmurs and no rubs GI: Palpation (GI): Soft to palpation and Other GI palpation findings present ( Nontender) Auscultation: normal bowel sounds Extrem: General: No clubbing, No cyanosis and Yes edema (1+ bilateral) Procedures Date of Service Date of Service: 05/20/24 Assessment and Plan Assessment and plan (1) Hypoxic respiratory failure: Status: Acute (2) HAYDEE on CPAP: Status: Acute Plan Impression: 78-year-old lady with acute hypoxic respiratory failure secondary to pulmonary edema improving with diuresis. Also underlying HAYDEE on CPAP. Recommendations: Agree with continuation of aggressive diuresis. Continue nocturnal CPAP. Time Spent With Patient Time: Total time managing care of this patient today ____ minutes. Progress Note: Quality Stroke Does the patient have a stroke diagnosis?: No
[2024-05-20 13:32] LABS: Alanine Aminotransferase 37 U/L (0-31); Albumin Level 2.9 g/dL (3.5-5.0); Alkaline Phosphatase 105 U/L (39-117); Aspartate Amino Transferase 29 U/L (5-31); Bilirubin Direct 0.2 mg/dL (0.0-0.5); Bilirubin Total 0.4 mg/dL (0.0-1.0); Total Protein 6.3 g/dL (6.5-8.0)
[2024-05-20 16:24] LABS: Glucose, Whole Blood 287 mg/dL (60-115)
[2024-05-20 19:48] LABS: Glucose, Whole Blood 306 mg/dL (60-115)
[2024-05-20] MEDS: Atorvastatin Calcium 80 MG TABLET PO (20:21)
[2024-05-20] MEDS: Ezetimibe 10 MG TABLET PO (20:21)
[2024-05-20] MEDS: Insulin Glargine,Hum.rec.anlog 100 UNIT/ML 10 ML VIAL 42 UNIT SUBCUT (20:22)
[2024-05-21] VITALS (12 sets, daily range): BP systolic 123–159; BP diastolic 7–71; PULSE 64–93; RESP 18–20; TEMP 36.1–37.3; O2SAT 90–95
[2024-05-21] MEDS: Heparin Sodium,Porcine 5,000 UNIT/ML VIAL 5000 UNIT SUBCUT ×2 (00:37→11:45)
[2024-05-21] MEDS: 0.9 % Sodium Chloride Flush 3 ML SYRINGE IVFLUSH ×3 (00:37→16:18)
[2024-05-21] MEDS: Pantoprazole Sodium 20 MG TABLET.DR PO (05:39)
[2024-05-21] MEDS: Albuterol/Iprat 2.5/0.5MG 3 ML AMPUL.NEB INHALE ×4 (07:47→19:31)
[2024-05-21] MEDS: Tiotropium Bromide 2.5 mcg 1 PUFF/2.5 MCG MIST.INHAL 2 PUFF INHALE (07:47)
[2024-05-21] MEDS: Fluticasone/Vilanterol 200/25 BLST.W.DEV 1 PUFF INHALE (07:47)
[2024-05-21 08:07] LABS: Glucose, Whole Blood 195 mg/dL (60-115)
[2024-05-21] MEDS: Ferrous Sulfate 324 MG TABLET.DR 325 MG PO (08:15)
[2024-05-21] MEDS: Clopidogrel Bisulfate 75 MG TABLET PO (08:15)
[2024-05-21] MEDS: Insulin Lispro 100 UNIT/ML 3 ML VIAL SUBCUT ×6 (08:15→20:22)
[2024-05-21] MEDS: Ascorbic Acid 250 MG TABLET PO (08:15)
[2024-05-21] MEDS: FLUoxetine HCl 20 MG CAPSULE PO (08:16)
[2024-05-21] MEDS: Aspirin Enteric Coated 81 MG TABLET.DR PO (08:16)
[2024-05-21] MEDS: Metoprolol Tartrate 50 MG TABLET PO ×2 (08:16→20:28)
[2024-05-21] MEDS: Nystatin Powder 15 GM BOTTLE 1 APPL TOPICAL ×2 (09:14→20:25)
[2024-05-21] MEDS: methylPREDNISolone Sod Succ 40 MG/ML VIAL IVPUSH ×2 (09:14→16:19)
[2024-05-21] MEDS: Fluticasone Propionate Nasal 16 GM SPRAY 1 SPRAY NOSTRIL-B (09:15)
[2024-05-21 09:38] LABS: B Type Natriuretic Peptide 255 pg/mL (<100)
--- NOTE | 2024-05-21 10:01 | P.PNIM_ITS ---
Subjective Subjective Date of Service: 05/21/24 Interval History: Seen in follow up for hypoxia reports dyspnea improve when wearing O2 feels wheezy Review of Systems Review of Systems: Yes all other systems are reviewed and are negative Physical Exam 2 Vital Signs: Vital Signs: Last Vital Signs Temp 98.9 F 05/21/24 08:00 Pulse 80 05/21/24 08:00 Resp 19 05/21/24 08:00 BP 159/65 H 05/21/24 08:00 Pulse Ox 91 L 05/21/24 08:00 O2 Del Method Room Air 05/21/24 08:00 O2 Flow Rate 2.5 05/21/24 03:42 Oxygen Flow Rate 2 05/16/24 13:15 BMI result Body Mass Index 39.5 Appearing in no acute distress lung sounds exp wheezing heart regular rate rhythm, clear S1, S2 positive bowel sounds, abdomen is soft, nontender neuro patient is alert x3, no focal deficits Objective Data Active Medications Acetaminophen (Acetaminophen 325 Mg Tablet) 975 mg PO Q6H PRN PRN Reason: Pain, Mild (Pain Scale 1-3), fever or headache Albuterol Sulfate (Albuterol Sulfate (0.083%) 2.5 Mg/3 Ml Vial.Neb) 2.5 mg INHALE Q2H PRN PRN Reason: Shortness of Breath/Wheezing Albuterol Sulfate (Albuterol Sulfate 90 Mcg 8 Gm Inhaler) 2 puff INHALE Q4H PRN PRN Reason: wheezing Albuterol/Ipratropium (Albuterol/Iprat 2.5/0.5mg 3 Ml Ampul.Neb) 3 ml INHALE RQ4H WHILE AWAKE [facility] Last Admin: 05/21/24 07:47 Dose: 3 ml Documented By: SHER Amlodipine Besylate (Amlodipine Besylate 2.5 Mg Tablet) 2.5 mg PO DAILY@1200 [facility]; Protocol Last Admin: 05/20/24 12:30 Dose: 2.5 mg Documented By: MARY Ascorbic Acid (Ascorbic Acid 250 Mg Tablet) 250 mg PO DAILY [facility] Last Admin: 05/21/24 08:15 Dose: 250 mg Documented By: ANGELA Aspirin (Aspirin Enteric Coated 81 Mg Tablet.) 81 mg PO DAILY [facility] Last Admin: 05/21/24 08:16 Dose: 81 mg Documented By: ANGELA Atorvastatin Calcium (Atorvastatin Calcium 80 Mg Tablet) 80 mg PO BEDTIME [facility] Last Admin: 05/20/24 20:21 Dose: 80 mg Documented By: CHRISSY Azithromycin (Azithromycin 500 Mg Tablet) 500 mg PO Q24H [facility] Stop: 05/21/24 11:46 Last Admin: 05/20/24 12:31 Dose: 500 mg Documented By: MARY Clopidogrel Bisulfate (Clopidogrel Bisulfate 75 Mg Tablet) 75 mg PO DAILY [facility] Last Admin: 05/21/24 08:15 Dose: 75 mg Documented By: ANGELA Docusate Sodium (Docusate Sodium 100 Mg Capsule) 100 mg PO BID PRN PRN Reason: Constipation Last Admin: 05/19/24 17:16 Dose: 100 mg Documented By: MARY Ezetimibe (Ezetimibe 10 Mg Tablet) 10 mg PO BEDTIME [facility] Last Admin: 05/20/24 20:21 Dose: 10 mg Documented By: CHRISSY Ferrous Sulfate (Ferrous Sulfate 324 Mg Tablet.Dr) 325 mg PO DAILY [facility] Last Admin: 05/21/24 08:15 Dose: 325 mg Documented By: ANGELA Fluoxetine HCl (Fluoxetine Hcl 20 Mg Capsule) 20 mg PO DAILY [facility] Last Admin: 05/21/24 08:16 Dose: 20 mg Documented By: ANGELA Fluticasone Propionate (Fluticasone Propionate Nasal 16 Gm [place]) 1 spray NOSTRIL-B DAILY [facility] Last Admin: 05/21/24 09:15 Dose: 1 spray Documented By: ANGELA Fluticasone/Vilanterol (Fluticasone/Vilanterol 200/25 Blst.W.Dev) 1 puff INHALE RDAILY [facility] Last Admin: 05/21/24 07:47 Dose: 1 puff Documented By: SHER Glucose (Glucose Gel 15 Gm Gel..Gram.) 15 gm PO Q15M PRN; Protocol PRN Reason: per Hypoglycemia Standing Ord. Heparin Sodium (Porcine) (Heparin Sodium,Porcine 5,000 Unit/Ml Vial) 5,000 unit SUBCUT Q12H [facility] Last Admin: 05/21/24 00:37 Dose: 5,000 unit Documented By: CHRISSY Dextrose (D10) 250 mls @ 750 mls/hr IV Q15M PRN; Protocol PRN Reason: per Hypoglycemia Standing Ord. Insulin Glargine (Insulin Glargine,Hum.Rec.Anlog 100 Unit/Ml 10 Ml Vial) 42 unit SUBCUT BEDTIME [facility] Last Admin: 05/20/24 20:22 Dose: 42 unit Documented By: CHRISSY Comments: BS 306 Insulin Human Lispro (Insulin Lispro 100 Unit/Ml 3 Ml Vial) 0 unit SUBCUT QIDACHS [facility]; Protocol Last Admin: 05/21/24 08:15 Dose: 2 unit Documented By: ANGELA Loratadine (Loratadine 10 Mg Tablet) 10 mg PO DAILY PRN PRN Reason: Allergy Symptoms Methylprednisolone Sodium Succinate (Methylprednisolone Sod Succ 40 Mg/Ml Vial) 40 mg IVPUSH Q8H [facility] Last Admin: 05/21/24 09:14 Dose: 40 mg Documented By: ANGELA Metoprolol Tartrate (Metoprolol Tartrate 50 Mg Tablet) 50 mg PO BID [facility]; Protocol Last Admin: 05/21/24 08:16 Dose: 50 mg Documented By: ANGELA Nitroglycerin (Nitroglycerin 0.4 Mg Tab.Subl) 0.4 mg SUBLINGUAL Q5M PRN PRN Reason: chest pain Nystatin (Nystatin Powder 15 Gm Bottle) 1 appl TOPICAL BID [facility]; Protocol Last Admin: 05/21/24 09:14 Dose: 1 appl Documented By: ANGELA Pantoprazole Sodium (Pantoprazole Sodium 20 Mg Tablet.Dr) 20 mg PO DAILY@0630 [facility] Last Admin: 05/21/24 05:39 Dose: 20 mg Documented By: CHRISSY Sodium Chloride (0.9 % Sodium Chloride Flush 3 Ml Syringe) 3 ml IVFLUSH QSHIFT [facility] Last Admin: 05/21/24 08:15 Dose: 3 ml Documented By: ANGELA Sodium Chloride (Sodium Chloride 0.65 % Nasal 44 Ml Sprbtl) 1 spray NOSTRIL-B Q1H PRN PRN Reason: nasal congestion/dryness Last Admin: 05/18/24 17:08 Dose: 1 spray Documented By: MARY Tiotropium [place] (Tiotropium [place] 2.5 Mcg 1 Puff/2.5 Mcg Mist.Inhal) 2 puff INHALE RDAILY [facility] Last Admin: 05/21/24 07:47 Dose: 2 puff Documented By: SHER Labs 05/19/24 21:57 05/19/24 21:57 Labs: Laboratory Results - last 24 hr 05/19/24 05/20/24 05/20/24 05:58 11:21 11:24 Absolute Retic 0.107 H Percent Retic 3.3 H Immature Retic Fraction 26.5 H Retic Hgb Equivalent 29.7 L POC Glucose 299 H Total Bilirubin 0.4 Direct Bilirubin 0.2 AST 29 ALT 37 H Alkaline Phosphatase 105 B-Natriuretic Peptide Total Protein 6.3 L Albumin 2.9 L 05/20/24 05/20/24 05/21/24 16:02 19:42 07:41 Absolute Retic Percent Retic Immature Retic Fraction Retic Hgb Equivalent POC Glucose 287 H 306 H 195 H Total Bilirubin Direct Bilirubin AST ALT Alkaline Phosphatase B-Natriuretic Peptide Total Protein Albumin 05/21/24 09:08 Absolute Retic Percent Retic Immature Retic Fraction Retic Hgb Equivalent POC Glucose Total Bilirubin Direct Bilirubin AST ALT Alkaline Phosphatase B-Natriuretic Peptide 255 H Total Protein Albumin Assessment and Plan (1) Hypoxic respiratory failure: Status: Acute Plan 78 yo F with multiple medical issues who presented after what appears to be a syncopal episode. She was found to be hypoxic in the ED and hence is admitted for further treatment. Acute on chronic respiratory failure with hypoxia secondary to worsening COPD/emphysema/chronic bronchitis VQ scan negative for PE echo showed hyperdynamic LV systolic fx EF 70% with impaired relaxation pattern. Pulm consult>continue Breo ellipta, add spiriva , s/p azithro 500mg PO x 3 days chest physiotherapy with aerobika valve continue 2L nc to keep o2 sats>91% initially patient refused steroids d/t hyperglycemia, however now agrees d/t ongoing exp wheezing solumedrol 40 mg Q8h with scheduled duonebs HFpEF not on baseline diuretics elevated BNP with hypoxia on 05/19 with some congestion noted on cxr, received IV lasix x1 no further exacerbation symptoms Acute normocytic Anemia no evidence of active bleed GI following>declined egd/colo continue PPI and iron supp HAYDEE CPAP hx of TIA DAPT + statin DM2 basal + bolus poc glucose, diabetic diet Full Code Attending Dr. Patrick DVT heparin DISPO pt eval, suspect will need STR, plan for [facility] when medically clear Pt requires ongoing inpt stay due to persistent hypoxia with expert consultation and awaiting PT eval for dispo, suspect will need STR otherwise home with PT and home O2 eval Quality Stroke Does the patient have a stroke diagnosis?: No VTE Prior VTE?: No VTE Risk Level:: Medical - moderate - high VTE Device Contraindication: Treatment Not Indicated VTE Drug Contraindication: N/A - Med Ordered
[2024-05-21 11:30] LABS: Glucose, Whole Blood 327 mg/dL (60-115)
[2024-05-21] MEDS: Azithromycin 500 MG TABLET PO (11:45)
[2024-05-21] MEDS: amLODIPine Besylate 2.5 MG TABLET PO (12:00)
[2024-05-21 16:07] LABS: Glucose, Whole Blood 413 mg/dL (60-115)
[2024-05-21 17:19] LABS: Gliadin Deamidated IgA Ab <1.0 U/mL; Gliadin Deamidated IgG Ab <1.0 U/mL; Haptoglobin 533 mg/dL (43-212); Immunoglobulin A 452 mg/dL (70-320); Transglutaminase Ab IgG <1.0 U/mL; Transglutaminase IgA <1.0 U/mL
[2024-05-21 19:59] LABS: Glucose, Whole Blood 469 mg/dL (60-115)
[2024-05-21] MEDS: Ezetimibe 10 MG TABLET PO (20:18)
[2024-05-21] MEDS: Insulin Glargine,Hum.rec.anlog 100 UNIT/ML 10 ML VIAL 42 UNIT SUBCUT (20:18)
[2024-05-21] MEDS: Atorvastatin Calcium 80 MG TABLET PO (20:18)
[2024-05-21] MEDS: Docusate Sodium 100 MG CAPSULE PO (20:18)
[2024-05-21] MEDS: Insulin Regular, Human 100 UNIT/ML 10 ML VIAL IVPUSH (21:38)
[2024-05-22] VITALS (12 sets, daily range): BP systolic 119–159; BP diastolic 56–77; PULSE 78–94; RESP 15–23; TEMP 36.2–36.7; O2SAT 91–98
[2024-05-22] MEDS: Heparin Sodium,Porcine 5,000 UNIT/ML VIAL 5000 UNIT SUBCUT ×3 (00:17→23:19)
[2024-05-22] MEDS: methylPREDNISolone Sod Succ 40 MG/ML VIAL IVPUSH ×4 (00:17→23:19)
[2024-05-22] MEDS: 0.9 % Sodium Chloride Flush 3 ML SYRINGE IVFLUSH ×4 (00:18→21:05)
[2024-05-22] MEDS: Pantoprazole Sodium 20 MG TABLET.DR PO (05:29)
[2024-05-22 07:18] LABS: Anion Gap 14 (12-20); Blood Urea Nitrogen 26 mg/dL (9-16); Calcium 9.7 mg/dL (8.4-10.2); Carbon Dioxide 23 mmol/L (22-29); Chloride 102 mmol/L (96-108); Creatinine Clr Calc Pharmacy 40.1; Estimated Glomerular Filt Rate 47; Glucose Random 324 mg/dL (60-115); Potassium 4.9 mmol/L (3.3-5.1); Sodium 134 mmol/L (135-145)
[2024-05-22 07:49] LABS: Glucose, Whole Blood 321 mg/dL (60-115)
[2024-05-22] MEDS: Docusate Sodium 100 MG CAPSULE PO ×2 (07:58→21:03)
[2024-05-22] MEDS: polyethylene glycoL 3350 17 GM POWD.PACK PO (07:58)
[2024-05-22] MEDS: FLUoxetine HCl 20 MG CAPSULE PO (07:59)
[2024-05-22] MEDS: Aspirin Enteric Coated 81 MG TABLET.DR PO (07:59)
[2024-05-22] MEDS: Clopidogrel Bisulfate 75 MG TABLET PO (07:59)
[2024-05-22] MEDS: Ascorbic Acid 250 MG TABLET PO (07:59)
[2024-05-22] MEDS: Metoprolol Tartrate 50 MG TABLET PO ×2 (07:59→21:03)
[2024-05-22] MEDS: Ferrous Sulfate 324 MG TABLET.DR 325 MG PO (08:00)
[2024-05-22] MEDS: Insulin Lispro 100 UNIT/ML 3 ML VIAL SUBCUT ×8 (08:03→21:04)
[2024-05-22] MEDS: Tiotropium Bromide 2.5 mcg 1 PUFF/2.5 MCG MIST.INHAL 2 PUFF INHALE (08:05)
[2024-05-22] MEDS: Fluticasone/Vilanterol 200/25 BLST.W.DEV 1 PUFF INHALE (08:05)
[2024-05-22] MEDS: Albuterol/Iprat 2.5/0.5MG 3 ML AMPUL.NEB INHALE ×4 (08:05→19:38)
[2024-05-22] MEDS: Fluticasone Propionate Nasal 16 GM SPRAY 1 SPRAY NOSTRIL-B (08:51)
[2024-05-22] MEDS: Nystatin Powder 15 GM BOTTLE 1 APPL TOPICAL ×2 (08:52→21:09)
--- NOTE | 2024-05-22 11:16 | HO.PM.IMPN ---
Subjective Subjective Date of Service: 05/22/24 Interval History: sob improved constipated Physical Exam Vital Signs: Vital Signs: Last Vital Signs Temp 98.0 F 05/22/24 07:55 Pulse 85 05/22/24 09:54 Resp 18 05/22/24 08:05 BP 146/77 H 05/22/24 07:55 Pulse Ox 95 05/22/24 07:55 O2 Del Method Nasal Cannula 05/22/24 07:55 O2 Flow Rate 2 05/22/24 07:55 Oxygen Flow Rate 2 05/16/24 13:15 BMI result Body Mass Index 39.5 General: AO X 3, no acute distress Resp: good air movement bilateral with some inspiratory wheezes, no accessory muscles used CVS: S1,S2,RRR GI: soft, non tender, non distended Neuro: motor grossly intact, alert Psych: appropriate affect, appropriate insight Objective Data Active Medications Acetaminophen (Acetaminophen 325 Mg Tablet) 975 mg PO Q6H PRN PRN Reason: Pain, Mild (Pain Scale 1-3), fever or headache Albuterol Sulfate (Albuterol Sulfate (0.083%) 2.5 Mg/3 Ml Vial.Neb) 2.5 mg INHALE Q2H PRN PRN Reason: Shortness of Breath/Wheezing Albuterol Sulfate (Albuterol Sulfate 90 Mcg 8 Gm Inhaler) 2 puff INHALE Q4H PRN PRN Reason: wheezing Albuterol/Ipratropium (Albuterol/Iprat 2.5/0.5mg 3 Ml Ampul.Neb) 3 ml INHALE RQ4H WHILE AWAKE [facility] Last Admin: 05/22/24 08:05 Dose: 3 ml Documented By: ANKUR Amlodipine Besylate (Amlodipine Besylate 2.5 Mg Tablet) 2.5 mg PO DAILY@1200 SARAHI; Protocol Last Admin: 05/21/24 12:00 Dose: 2.5 mg Documented By: ANGELA Ascorbic Acid (Ascorbic Acid 250 Mg Tablet) 250 mg PO DAILY [facility] Last Admin: 05/22/24 07:59 Dose: 250 mg Documented By: ACE Aspirin (Aspirin Enteric Coated 81 Mg Tablet.) 81 mg PO DAILY [facility] Last Admin: 05/22/24 07:59 Dose: 81 mg Documented By: ACE Atorvastatin Calcium (Atorvastatin Calcium 80 Mg Tablet) 80 mg PO BEDTIME [facility] Last Admin: 05/21/24 20:18 Dose: 80 mg Documented By: CHRISSY Clopidogrel Bisulfate (Clopidogrel Bisulfate 75 Mg Tablet) 75 mg PO DAILY [facility] Last Admin: 05/22/24 07:59 Dose: 75 mg Documented By: ACE Docusate Sodium (Docusate Sodium 100 Mg Capsule) 100 mg PO BID [facility] Last Admin: 05/22/24 07:58 Dose: 100 mg Documented By: ACE Ezetimibe (Ezetimibe 10 Mg Tablet) 10 mg PO BEDTIME [facility] Last Admin: 05/21/24 20:18 Dose: 10 mg Documented By: CHRISSY Ferrous Sulfate (Ferrous Sulfate 324 Mg Tablet.Dr) 325 mg PO DAILY [facility] Last Admin: 05/22/24 08:00 Dose: 325 mg Documented By: ACE Fluoxetine HCl (Fluoxetine Hcl 20 Mg Capsule) 20 mg PO DAILY [facility] Last Admin: 05/22/24 07:59 Dose: 20 mg Documented By: ACE Fluticasone Propionate (Fluticasone Propionate Nasal 16 Gm [place]) 1 spray NOSTRIL-B DAILY [facility] Last Admin: 05/22/24 08:51 Dose: 1 spray Documented By: ACE Fluticasone/Vilanterol (Fluticasone/Vilanterol 200/25 Blst.W.Dev) 1 puff INHALE RDAILY [facility] Last Admin: 05/22/24 08:05 Dose: 1 puff Documented By: ANKUR Glucose (Glucose Gel 15 Gm Gel..Gram.) 15 gm PO Q15M PRN; Protocol PRN Reason: per Hypoglycemia Standing Ord. Heparin Sodium (Porcine) (Heparin Sodium,Porcine 5,000 Unit/Ml Vial) 5,000 unit SUBCUT Q12H [facility] Last Admin: 05/22/24 00:17 Dose: 5,000 unit Documented By: CHRISSY Dextrose (D10) 250 mls @ 750 mls/hr IV Q15M PRN; Protocol PRN Reason: per Hypoglycemia Standing Ord. Insulin Glargine (Insulin Glargine,Hum.Rec.Anlog 100 Unit/Ml 10 Ml Vial) 42 unit SUBCUT BEDTIME [facility] Last Admin: 05/21/24 20:18 Dose: 42 unit Documented By: CHRISSY Comments: BS 469 Insulin Human Lispro (Insulin Lispro 100 Unit/Ml 3 Ml Vial) 0 unit SUBCUT QIDACHS [facility]; Protocol Last Admin: 05/22/24 08:03 Dose: 8 unit Documented By: ACE Insulin Human Lispro (Insulin Lispro 100 Unit/Ml 3 Ml Vial) 5 unit SUBCUT QIDACHS [facility] Last Admin: 05/22/24 08:03 Dose: 5 unit Documented By: ACE Loratadine (Loratadine 10 Mg Tablet) 10 mg PO DAILY PRN PRN Reason: Allergy Symptoms Methylprednisolone Sodium Succinate (Methylprednisolone Sod Succ 40 Mg/Ml Vial) 40 mg IVPUSH Q8H [facility] Last Admin: 05/22/24 07:58 Dose: 40 mg Documented By: ACE Metoprolol Tartrate (Metoprolol Tartrate 50 Mg Tablet) 50 mg PO BID [facility]; Protocol Last Admin: 05/22/24 07:59 Dose: 50 mg Documented By: ACE Nitroglycerin (Nitroglycerin 0.4 Mg Tab.Subl) 0.4 mg SUBLINGUAL Q5M PRN PRN Reason: chest pain Nystatin (Nystatin Powder 15 Gm Bottle) 1 appl TOPICAL BID [facility]; Protocol Last Admin: 05/22/24 08:52 Dose: 1 appl Documented By: ACE Pantoprazole Sodium (Pantoprazole Sodium 20 Mg Tablet.Dr) 20 mg PO DAILY@0630 [facility] Last Admin: 05/22/24 05:29 Dose: 20 mg Documented By: CHRISSY Polyethylene Glycol (Polyethylene Glycol 3350 17 Gm Powd.Pack) 17 gm PO DAILY PRN PRN Reason: Constipation Last Admin: 05/22/24 07:58 Dose: 17 gm Documented By: ACE Sodium Chloride (0.9 % Sodium Chloride Flush 3 Ml Syringe) 3 ml IVFLUSH QSHIFT [facility] Last Admin: 05/22/24 08:04 Dose: 3 ml Documented By: ACE Sodium Chloride (Sodium Chloride 0.65 % Nasal 44 Ml Sprbtl) 1 spray NOSTRIL-B Q1H PRN PRN Reason: nasal congestion/dryness Last Admin: 05/18/24 17:08 Dose: 1 spray Documented By: MARY Tiotropium [place] (Tiotropium [place] 2.5 Mcg 1 Puff/2.5 Mcg Mist.Inhal) 2 puff INHALE RDAILY SARAHI Last Admin: 05/22/24 08:05 Dose: 2 puff Documented By: ANKUR Labs 05/19/24 21:57 05/22/24 06:17 Labs: Laboratory Results - last 24 hr 05/17/24 05/21/24 05/21/24 16:23 11:17 16:01 Haptoglobin 533 H Hold Purple Top Anion Gap Estim Creat Clear Calc Estimated GFR POC Glucose 327 H 413 H* Random Glucose Calcium IgA 452 H Tiss Transglutamin IgG <1.0 Tiss Transglutamin IgA <1.0 Anti-Gliadin IgG Ab <1.0 Gliadin (Deamidat) IgA <1.0 05/21/24 05/22/24 05/22/24 19:51 06:17 07:35 Haptoglobin Hold Purple Top SEE NOTE Anion Gap 14 Estim Creat Clear Calc 40.1 Estimated GFR 47 POC Glucose 469 H* 321 H Random Glucose 324 H Calcium 9.7 IgA Tiss Transglutamin IgG Tiss Transglutamin IgA Anti-Gliadin IgG Ab Gliadin (Deamidat) IgA Assessment and Plan (1) Hypoxic respiratory failure: Status: Acute Plan 78F PMH HAYDEE on CPAP, morbid obesity, COPD no home oxygen, hyperlipidemia, type 2 diabetes mellitus, HFpEF, PAD, TIA who presented after what appears to be a syncopal episode. She was found to be hypoxic in the ED and hence is admitted for further treatment. Acute on chronic respiratory failure with hypoxia secondary to worsening COPD/emphysema/chronic bronchitis VQ scan negative for PE echo showed hyperdynamic LV systolic fx EF 70% with impaired relaxation pattern. Pulm consult>continue Breo ellipta, added spiriva , s/p azithro 500mg PO x 3 days chest physiotherapy with aerobika valve continue 2L nc to keep o2 sats>91% initially patient refused steroids d/t hyperglycemia, however now agrees d/t ongoing exp wheezing solumedrol 40 mg Q8h with scheduled duonebs HFpEF not on baseline diuretics elevated BNP with hypoxia on 05/19 with some congestion noted on cxr, received IV lasix x1 no further exacerbation symptoms Acute normocytic Anemia no evidence of active bleed GI following>declined egd/colo continue PPI and iron supp constipation miralax, if doesnt help will try enema HAYDEE CPAP hx of TIA DAPT + statin DM2 basal + bolus poc glucose, diabetic diet Full Code DVT heparin DISPO will need STR, plan for [facility] when medically clear reason for continued hospitalization:still sob Quality Stroke Does the patient have a stroke diagnosis?: No VTE Prior VTE?: No VTE Risk Level:: Medical - moderate - high VTE Device Contraindication: Treatment Not Indicated VTE Drug Contraindication: N/A - Med Ordered
[2024-05-22 11:31] LABS: Glucose, Whole Blood 363 mg/dL (60-115)
[2024-05-22 12:02] LABS: Prot Elec - Albumin 2.2 g/dL (3.8-4.8); Prot Elec - Alpha1 0.6 g/dL (0.2-0.3); Prot Elec - Alpha2 1.3 g/dL (0.5-0.9); Prot Elec - Beta 1 0.4 g/dL (0.4-0.6); Prot Elec - Beta 2 0.6 g/dL (0.2-0.5); Prot Elec - Gamma 0.8 g/dL (0.8-1.7); Prot Elec - Total Protein 5.9 g/dL (6.1-8.1)
[2024-05-22] MEDS: amLODIPine Besylate 2.5 MG TABLET PO (12:06)
--- NOTE | 2024-05-22 13:28 | MHC.CM.PN ---
Pt is not yet ready for DC, she is still SOB. DCP is STR at [facility], anticipate DC there on 05/23/24.
[2024-05-22] MEDS: bisacodyL 10 MG SUPP.RECT PR (15:56)
[2024-05-22 16:37] LABS: Glucose, Whole Blood 438 mg/dL (60-115)
[2024-05-22] MEDS: Insulin Lispro 100 UNIT/ML 3 ML VIAL 10 UNIT SUBCUT (17:23)
[2024-05-22 18:18] LABS: IgA 465 mg/dL (70-320); IgG 805 mg/dL (600-1540); IgM 127 mg/dL (50-300)
[2024-05-22 20:53] LABS: Glucose, Whole Blood 528 mg/dL (60-115)
[2024-05-22] MEDS: Ezetimibe 10 MG TABLET PO (21:03)
[2024-05-22] MEDS: Atorvastatin Calcium 80 MG TABLET PO (21:03)
[2024-05-22] MEDS: Insulin Glargine,Hum.rec.anlog 100 UNIT/ML 10 ML VIAL 42 UNIT SUBCUT (21:04)
[2024-05-22] MEDS: Insulin Regular, Human 100 UNIT/ML 10 ML VIAL 10 UNIT IVPUSH (21:15)
[2024-05-22] MEDS: Insulin Glargine,Hum.rec.anlog 100 UNIT/ML 10 ML VIAL 10 UNIT SUBCUT (21:16)
[2024-05-23] VITALS (8 sets, daily range): BP systolic 114–146; BP diastolic 55–72; PULSE 74–85; RESP 16–18; TEMP 36–36.5; O2SAT 92–97
[2024-05-23] MEDS: Pantoprazole Sodium 20 MG TABLET.DR PO (05:53)
[2024-05-23 07:00] LABS: Mean Corpuscular HGB Conc 32.3 g/dl (31.0-35.0); Mean Corpuscular Hemoglobin 30.5 pg (27.0-33.0); Mean Corpuscular Volume 94.5 fL (80.0-98.0); Mean Platelet Volume 10.3 fL (9.4-12.3); Platelet Count 450 X10*3/uL (160-400); Red Blood Count 3.28 X10*6/uL (4.20-5.50); Red Cell Distribution Width 13.6 % (11.0-16.0)
[2024-05-23 07:42] LABS: Glucose, Whole Blood 375 mg/dL (60-115)
[2024-05-23] MEDS: Fluticasone/Vilanterol 200/25 BLST.W.DEV 1 PUFF INHALE (07:45)
[2024-05-23] MEDS: Tiotropium Bromide 2.5 mcg 1 PUFF/2.5 MCG MIST.INHAL 2 PUFF INHALE (07:45)
[2024-05-23] MEDS: Albuterol/Iprat 2.5/0.5MG 3 ML AMPUL.NEB INHALE ×2 (07:47→11:10)
[2024-05-23 08:14] LABS: Anion Gap 14 (12-20); Blood Urea Nitrogen 37 mg/dL (9-16); Calcium 9.1 mg/dL (8.4-10.2); Carbon Dioxide 22 mmol/L (22-29); Chloride 100 mmol/L (96-108); Creatinine Clr Calc Pharmacy 34.3; Estimated Glomerular Filt Rate 39; Glucose Fasting 424 mg/dL (60-99); Magnesium 2.1 mg/dL (1.6-2.6); Potassium 5.1 mmol/L (3.3-5.1); Sodium 131 mmol/L (135-145)
[2024-05-23] MEDS: Clopidogrel Bisulfate 75 MG TABLET PO (08:21)
[2024-05-23] MEDS: FLUoxetine HCl 20 MG CAPSULE PO (08:21)
[2024-05-23] MEDS: Ferrous Sulfate 324 MG TABLET.DR PO (08:21)
[2024-05-23] MEDS: Metoprolol Tartrate 50 MG TABLET PO (08:21)
[2024-05-23] MEDS: Aspirin Enteric Coated 81 MG TABLET.DR PO (08:21)
[2024-05-23] MEDS: Insulin Lispro 100 UNIT/ML 3 ML VIAL SUBCUT ×4 (08:22→11:47)
[2024-05-23] MEDS: Docusate Sodium 100 MG CAPSULE PO (08:22)
[2024-05-23] MEDS: methylPREDNISolone Sod Succ 40 MG/ML VIAL IVPUSH (08:22)
[2024-05-23] MEDS: Ascorbic Acid 250 MG TABLET PO (08:22)
[2024-05-23] MEDS: 0.9 % Sodium Chloride Flush 3 ML SYRINGE IVFLUSH (08:23)
[2024-05-23] MEDS: Nystatin Powder 15 GM BOTTLE 1 APPL TOPICAL (08:23)
[2024-05-23] MEDS: Fluticasone Propionate Nasal 16 GM SPRAY 1 SPRAY NOSTRIL-B (08:29)
[2024-05-23 09:03] LABS: Glucose, Whole Blood 411 mg/dL (60-115)
[2024-05-23 10:10] LABS: Glucose, Whole Blood 400 mg/dL (60-115)
[2024-05-23] MEDS: Insulin Regular, Human 100 UNIT/ML 10 ML VIAL 10 UNIT IVPUSH (10:21)
[2024-05-23] MEDS: Insulin Glargine,Hum.rec.anlog 100 UNIT/ML 10 ML VIAL 25 UNIT SUBCUT (10:21)
--- NOTE | 2024-05-23 10:21 | P.PNIM_ITS ---
Subjective Subjective Date of Service: 05/23/24 Interval History: feeling better, had bm Physical Exam 2 Vital Signs: Vital Signs: Last Vital Signs Temp 97.6 F 05/23/24 07:42 Pulse 83 05/23/24 08:21 Resp 18 05/23/24 07:51 BP 146/72 H 05/23/24 08:21 Pulse Ox 95 05/23/24 07:42 O2 Del Method Nasal Cannula 05/23/24 07:42 O2 Flow Rate 2 05/23/24 07:42 Oxygen Flow Rate 2 05/16/24 13:15 BMI result Body Mass Index 39.5 General: AO X 3, no acute distress Resp: good air movement bilateral with some inspiratory wheezes, no accessory muscles used CVS: S1,S2,RRR GI: soft, non tender, non distended Neuro: motor grossly intact, alert Psych: appropriate affect, appropriate insight Objective Data Active Medications Acetaminophen (Acetaminophen 325 Mg Tablet) 975 mg PO Q6H PRN PRN Reason: Pain, Mild (Pain Scale 1-3), fever or headache Albuterol Sulfate (Albuterol Sulfate (0.083%) 2.5 Mg/3 Ml Vial.Neb) 2.5 mg INHALE Q2H PRN PRN Reason: Shortness of Breath/Wheezing Albuterol Sulfate (Albuterol Sulfate 90 Mcg 8 Gm Inhaler) 2 puff INHALE Q4H PRN PRN Reason: wheezing Albuterol/Ipratropium (Albuterol/Iprat 2.5/0.5mg 3 Ml Ampul.Neb) 3 ml INHALE RQ4H WHILE AWAKE [facility] Last Admin: 05/23/24 07:47 Dose: 3 ml Documented By: SHER Amlodipine Besylate (Amlodipine Besylate 2.5 Mg Tablet) 2.5 mg PO DAILY@1200 SARAHI; Protocol Last Admin: 05/22/24 12:06 Dose: 2.5 mg Documented By: ACE Ascorbic Acid (Ascorbic Acid 250 Mg Tablet) 250 mg PO DAILY [facility] Last Admin: 05/23/24 08:22 Dose: 250 mg Documented By: MYRANDA Aspirin (Aspirin Enteric Coated 81 Mg Tablet.) 81 mg PO DAILY [facility] Last Admin: 05/23/24 08:21 Dose: 81 mg Documented By: MYRANDA Atorvastatin Calcium (Atorvastatin Calcium 80 Mg Tablet) 80 mg PO BEDTIME [facility] Last Admin: 05/22/24 21:03 Dose: 80 mg Documented By: MAGDI Clopidogrel Bisulfate (Clopidogrel Bisulfate 75 Mg Tablet) 75 mg PO DAILY [facility] Last Admin: 05/23/24 08:21 Dose: 75 mg Documented By: MYRANDA Docusate Sodium (Docusate Sodium 100 Mg Capsule) 100 mg PO BID [facility] Last Admin: 05/23/24 08:22 Dose: 100 mg Documented By: MYRANDA Ezetimibe (Ezetimibe 10 Mg Tablet) 10 mg PO BEDTIME [facility] Last Admin: 05/22/24 21:03 Dose: 10 mg Documented By: MAGDI Ferrous Sulfate (Ferrous Sulfate 324 Mg Tablet.Dr) 324 mg PO DAILY [facility] Last Admin: 05/23/24 08:21 Dose: 324 mg Documented By: MYRANDA Fluoxetine HCl (Fluoxetine Hcl 20 Mg Capsule) 20 mg PO DAILY [facility] Last Admin: 05/23/24 08:21 Dose: 20 mg Documented By: MYRANDA Fluticasone Propionate (Fluticasone Propionate Nasal 16 Gm [place]) 1 spray NOSTRIL-B DAILY [facility] Last Admin: 05/23/24 08:29 Dose: 1 spray Documented By: MYRANDA Fluticasone/Vilanterol (Fluticasone/Vilanterol 200/25 Blst.W.Dev) 1 puff INHALE RDAILY [facility] Last Admin: 05/23/24 07:45 Dose: 1 puff Documented By: SHER Glucose (Glucose Gel 15 Gm Gel..Gram.) 15 gm PO Q15M PRN; Protocol PRN Reason: per Hypoglycemia Standing Ord. Heparin Sodium (Porcine) (Heparin Sodium,Porcine 5,000 Unit/Ml Vial) 5,000 unit SUBCUT Q12H [facility] Last Admin: 05/22/24 23:19 Dose: 5,000 unit Documented By: MAGDI Dextrose (D10) 250 mls @ 750 mls/hr IV Q15M PRN; Protocol PRN Reason: per Hypoglycemia Standing Ord. Insulin Glargine (Insulin Glargine,Hum.Rec.Anlog 100 Unit/Ml 10 Ml Vial) 42 unit SUBCUT BEDTIME [facility] Last Admin: 05/22/24 21:04 Dose: 42 unit Documented By: MAGDI Insulin Human Lispro (Insulin Lispro 100 Unit/Ml 3 Ml Vial) 0 unit SUBCUT QIDACHS [facility]; Protocol Last Admin: 05/23/24 08:22 Dose: 10 unit Documented By: MYRANDA Insulin Human Lispro (Insulin Lispro 100 Unit/Ml 3 Ml Vial) 5 unit SUBCUT QIDACHS [facility] Last Admin: 05/23/24 08:22 Dose: 5 unit Documented By: MYRANDA Loratadine (Loratadine 10 Mg Tablet) 10 mg PO DAILY PRN PRN Reason: Allergy Symptoms Methylprednisolone Sodium Succinate (Methylprednisolone Sod Succ 40 Mg/Ml Vial) 40 mg IVPUSH DAILY [facility] Last Admin: 05/23/24 08:22 Dose: 40 mg Documented By: MYRANDA Metoprolol Tartrate (Metoprolol Tartrate 50 Mg Tablet) 50 mg PO BID [facility]; Protocol Last Admin: 05/23/24 08:21 Dose: 50 mg Documented By: MYRANDA Nitroglycerin (Nitroglycerin 0.4 Mg Tab.Subl) 0.4 mg SUBLINGUAL Q5M PRN PRN Reason: chest pain Nystatin (Nystatin Powder 15 Gm Bottle) 1 appl TOPICAL BID [facility]; Protocol Last Admin: 05/23/24 08:23 Dose: 1 appl Documented By: MYRANDA Pantoprazole Sodium (Pantoprazole Sodium 20 Mg Tablet.Dr) 20 mg PO DAILY@0630 [facility] Last Admin: 05/23/24 05:53 Dose: 20 mg Documented By: MAGDI Polyethylene Glycol (Polyethylene Glycol 3350 17 Gm Powd.Pack) 17 gm PO DAILY PRN PRN Reason: Constipation Last Admin: 05/22/24 07:58 Dose: 17 gm Documented By: ACE Sodium Chloride (0.9 % Sodium Chloride Flush 3 Ml Syringe) [facility] Last Admin: 05/23/24 08:23 Dose: 3 ml Documented By: MYRANDA Sodium Chloride (Sodium Chloride 0.65 % Nasal 44 Ml Sprbtl) 1 spray NOSTRIL-B Q1H PRN PRN Reason: nasal congestion/dryness Last Admin: 05/18/24 17:08 Dose: 1 spray Documented By: MARY Tiotropium [place] (Tiotropium [place] 2.5 Mcg 1 Puff/2.5 Mcg Mist.Inhal) 2 puff INHALE RDAILY SARAHI Last Admin: 05/23/24 07:45 Dose: 2 puff Documented By: SHER Labs 05/23/24 06:37 05/23/24 06:37 Labs: Laboratory Results - last 24 hr 05/20/24 05/22/24 05/22/24 11:21 11:08 16:33 MCV MCH MCHC RDW Plt Count MPV Absolute Nucleated RBC Nucleated RBC % (auto) Anion Gap Estim Creat Clear Calc Estimated GFR POC Glucose 363 H* 438 H* Fasting Glucose Calcium Magnesium Total Protein (PEP) 5.9 L Albumin (PEP) 2.2 L Vgjtd-6-Zxrbvnfbc 0.6 H Ddltg-8-Ydwumchzo 1.3 H Usbn-5-Dkigtyfy 0.4 Gore-6-Zadxeoch 0.6 H Gamma Globulins 0.8 Abnorm Protein Band 1 SEE NOTE PEP Interpretation SEE NOTE IgG Total 805 IgA Total 465 H IgM 127 LASHON Interpretation SEE NOTE 05/22/24 05/23/24 05/23/24 20:48 06:37 07:34 MCV 94.5 MCH 30.5 MCHC 32.3 RDW 13.6 Plt Count 450 H D MPV 10.3 Absolute Nucleated RBC 0.000 Nucleated RBC % (auto) 0.0 Anion Gap 14 Estim Creat Clear Calc 34.3 Estimated GFR 39 POC Glucose 528 H* 375 H* Fasting Glucose 424 H* Calcium 9.1 D Magnesium 2.1 Total Protein (PEP) Albumin (PEP) Aylch-1-Pzodgopej Pthac-7-Ruwnzmcsh Patu-4-Wviufund Sabe-8-Tbvijqkw Gamma Globulins Abnorm Protein Band 1 PEP Interpretation IgG Total IgA Total IgM LASHON Interpretation 05/23/24 05/23/24 09:00 10:07 MCV MCH MCHC RDW Plt Count MPV Absolute Nucleated RBC Nucleated RBC % (auto) Anion Gap Estim Creat Clear Calc Estimated GFR POC Glucose 411 H* 400 H* Fasting Glucose Calcium Magnesium Total Protein (PEP) Albumin (PEP) Updfb-1-Sngxhdhxu Kolbu-1-Eswnvwdyd Pmsu-6-Pasqgyjs Pspv-2-Xovwqafh Gamma Globulins Abnorm Protein Band 1 PEP Interpretation IgG Total IgA Total IgM LASHON Interpretation Assessment and Plan (1) Hypoxic respiratory failure: Status: Acute Plan 78F PMH HAYDEE on CPAP, morbid obesity, COPD no home oxygen, hyperlipidemia, type 2 diabetes mellitus, HFpEF, PAD, TIA who presented after what appears to be a syncopal episode. She was found to be hypoxic in the ED and hence is admitted for further treatment. Acute on chronic respiratory failure with hypoxia secondary to worsening COPD/emphysema/chronic bronchitis VQ scan negative for PE echo showed hyperdynamic LV systolic fx EF 70% with impaired relaxation pattern. Pulm consult>continue Breo ellipta, added spiriva , s/p azithro 500mg PO x 3 days chest physiotherapy with aerobika valve continue 2L nc to keep o2 sats>91% HFpEF not on baseline diuretics elevated BNP with hypoxia on 05/19 with some congestion noted on cxr, received IV lasix x1 no further exacerbation symptoms Acute normocytic Anemia no evidence of active bleed GI following>declined egd/colo continue PPI and iron supp constipation miralax, if doesnt help will try enema HAYDEE CPAP hx of TIA DAPT + statin DM2 basal + bolus poc glucose, diabetic diet Full Code DVT heparin reason for continued hospitalization: awaiting bed Quality Stroke Does the patient have a stroke diagnosis?: No VTE Prior VTE?: No VTE Risk Level:: Medical - moderate - high VTE Device Contraindication: Treatment Not Indicated VTE Drug Contraindication: N/A - Med Ordered
--- NOTE | 2024-05-23 10:28 | P.DS_ITS ---
DS: Providers Provider Date of Service: 05/23/24 Date of admission: 05/16/24 22:41 Primary care physician: Nahid Waterman MD Consults: 05/16/24 23:41 Consult to Gastroenterology Routine Consulting Provider: Trevon Lewis Reason for consultation: Worsening anemia Has provider been notified: No 05/18/24 12:58 Consult to Pulmonology [place]ine [place] [facility] [place] Reason for consultation: chronic worsening dyspnea 05/18/24 13:44 Consult to Hematology / Oncology Routine [place]ing [place] [facility] [place] Reason for consultation: anemia DS: Diagnosis Discharge Diagnosis (1) Hypoxic respiratory failure: Status: Acute DS: Summary Hospital Course Hospital Course: from initial hpi: 78 years old woman with past medical history significant for HAYDEE on CPAP, morbid obesity, COPD no home oxygen, hyperlipidemia, type 2 diabetes mellitus insulin, HFpEF, PAD, TIA on Plavix and aspirin was brought to the ED via EMS after she fell down today while she was pulling down her pull-ups before using the toilet. Patient did not remember exactly what happened before losing consciousness. She denied dizziness or chest pain. She does complain of shortness on breath productive cough that has been going on for awhile. She denies headache, palpitations, fever, chills, abdominal pain, nausea, vomiting or constipation. Reported couple of events of diarrhea yesterday and did not report black stools. She was recently discharged from [facility]. She denied tobacco smoking, alcohol abuse illicit drug use. In the ED, she was found to have stable vital signs. She was placed on supplemental oxygen via nasal cannula and currently on 2 liters/minute. There is no tachycardia, hypotension or fever. Blood workup showed leukocytosis of 12.1, hemoglobin is 10.0 (it was 12.7 two weeks ago). There are no significant electrolyte imbalances. BUN is 25 and creatinine 1.31. Troponin is 23.4 --> 20.3 and BNP 322. Glucose is 173. Platelets are normal. UA showed no evidence of urinary tract infection. Viral testing for COVID-19, influenza RSV is negative. CXR negative. Head and C-spine CT scan showed no acute findings. Chest CT scan with IV contrast (no PE protocol) showed no evidence of traumatic injury in the chest, abdomen pelvis; incidental emphysema, cholelithiasis, hysterectomy and degenerative changes. ECG showed normal sinus rhythm, PVCs and no specific ST and T-wave changes. ED tx: NS 1 L bolus, albuterol nebs, Lovenox 90 mcg subcut hospital course: Patient was admitted for acute on chronic hypoxic respiratory failure secondary to COPD with acute decompensation. She was ruled out for pulmonary embolism with negative V/Q scan. Echo showed hyperdynamic ejection fraction with empiric relaxation. She was given steroids, azithromycin for 3 days, chest physiotherapy. Shortness of breath significantly improved. Steroids have been discontinued due to diabetes with hyperglycemia. She will continue basal bolus insulin. For chronic diastolic CHF with acute decompensation she received 1 dose of IV Lasix and now appears to be euvolemic. For acute normocytic anemia etiology unclear, did not require transfusion, was seen by GI but patient declined EGD and colonoscopy. For HAYDEE was continued on CPAP at night. For history of TIA is continued on dual antiplatelet and statin. Patient will be discharged to custodial facility for short-term rehab. Time Attestation Discharge Coordination Time (in mins): 35 Quality: Safe Use of Opioids Does Pt have an Active Cancer Diagnosis on the Problem List?: No Quality: Stroke Does the patient have a stroke diagnosis?: No Physical Exam Vital Signs: Vital Signs: Last Vital Signs Temp 97.6 F 05/23/24 07:42 Pulse 83 05/23/24 08:21 Resp 18 05/23/24 07:51 BP 146/72 H 05/23/24 08:21 Pulse Ox 95 05/23/24 07:42 O2 Del Method Nasal Cannula 05/23/24 07:42 O2 Flow Rate 2 05/23/24 07:42 Oxygen Flow Rate 2 05/16/24 13:15 BMI result Body Mass Index 39.5 General: AO X 3, no acute distress Resp: good air movement bilateral, no accessory muscles used CVS: S1,S2,RRR GI: soft, non tender, non distended Neuro: motor grossly intact, alert Psych: appropriate affect, appropriate insight DS: Data Data Completed and Pending Completed studies during hospitalization [Text1]: Procedures Assistance with Respiratory Ventilation, Less than 24 Consecutive Hours, Continuous Positive Airway Pressure (01/09/23) Labs on day of discharge: Laboratory Results - last 24 hr 05/20/24 05/22/24 05/22/24 11:21 11:08 16:33 WBC RBC Hgb Hct MCV MCH MCHC RDW Plt Count MPV Absolute Nucleated RBC Nucleated RBC % (auto) Sodium Potassium Chloride Carbon Dioxide Anion Gap BUN Creatinine Estim Creat Clear Calc Estimated GFR POC Glucose 363 H* 438 H* Fasting Glucose Calcium Magnesium Total Protein (PEP) 5.9 L Albumin (PEP) 2.2 L Tiqys-9-Yrtfcevgu 0.6 H Krtuo-2-Zgjqwmojn 1.3 H Hxig-7-Qzzftbrd 0.4 Ayjh-4-Kkcdxmcp 0.6 H Gamma Globulins 0.8 Abnorm Protein Band 1 SEE NOTE PEP Interpretation SEE NOTE IgG Total 805 IgA Total 465 H IgM 127 LASOHN Interpretation SEE NOTE 05/22/24 05/23/24 05/23/24 20:48 06:37 07:34 WBC 20.0 H RBC 3.28 L Hgb 10.0 L Hct 31.0 L MCV 94.5 MCH 30.5 MCHC 32.3 RDW 13.6 Plt Count 450 H D MPV 10.3 Absolute Nucleated RBC 0.000 Nucleated RBC % (auto) 0.0 Sodium 131 L Potassium 5.1 Chloride 100 Carbon Dioxide 22 Anion Gap 14 BUN 37 H Creatinine 1.31 Estim Creat Clear Calc 34.3 Estimated GFR 39 POC Glucose 528 H* 375 H* Fasting Glucose 424 H* Calcium 9.1 D Magnesium 2.1 Total Protein (PEP) Albumin (PEP) Bjqvc-9-Yptxctxal Pmxyl-5-Wnrncvnfq Rgmx-9-Wdhrllmz Hevx-2-Tkrsonlt Gamma Globulins Abnorm Protein Band 1 PEP Interpretation IgG Total IgA Total IgM LASHON Interpretation 05/23/24 05/23/24 09:00 10:07 WBC RBC Hgb Hct MCV MCH MCHC RDW Plt Count MPV Absolute Nucleated RBC Nucleated RBC % (auto) Sodium Potassium Chloride Carbon Dioxide Anion Gap BUN Creatinine Estim Creat Clear Calc Estimated GFR POC Glucose 411 H* 400 H* Fasting Glucose Calcium Magnesium Total Protein (PEP) Albumin (PEP) Hanjz-7-Jajyyosjv Nctdu-1-Demtdcnnz Ockz-4-Qjpzurds Mcoc-4-Pnbibjkr Gamma Globulins Abnorm Protein Band 1 PEP Interpretation IgG Total IgA Total IgM LASHON Interpretation Discharge Plan Discharge Anticipated Discharge Date/Time: 05/23/24 10:24 Patient Disposition: Xfer SNF Discharge Diagnosis: copd Referrals: [facility] [Outside] - 1 Day (PULMONARY REHAB) Nahid Waterman MD [Primary Care Provider] - 1 Week Discharge Medications: New ferrous sulfate 324 mg (65 mg iron) Tablet,Delayed Release (Dr/Ec) 324 mg PO DAILY Qty: 0 0RF Continued nitroglycerin 0.4 mg tablet, sublingual 0.4 mg sublingual Q5M PRN (Reason: chest pain) Qty: 20 1RF Rx Instructions: do not exceed 3 doses per episode albuterol sulfate 90 mcg/actuation HFA aerosol inhaler 2 puff INHALATION Q4-6H PRN (Reason: wheezing) acetaminophen [Tylenol] 325 mg Tablet 650 mg PO Q6H PRN (Reason: Pain) aspirin 81 mg Tablet,Delayed Release (Dr/Ec) 81 mg PO DAILY PreserVision AREDS-2 250-90-40-1 mg Capsule 1 tab PO BID amlodipine 2.5 mg tablet 2.5 mg PO DAILY@1200 Hold Instructions: resume if bp remains elevated fluticasone propionate 50 mcg/actuation spray,suspension 1 spray intranasal DAILY loratadine 10 mg tablet 10 mg PO DAILY PRN (Reason: Allergy Symptoms) clopidogrel 75 mg Tablet 75 mg PO DAILY Qty: 30 0RF omeprazole 20 mg Capsule,Delayed Release(Dr/Ec) 20 mg PO DAILY@0630 30 Days Qty: 30 0RF insulin glargine [Basaglar KwikPen U-100 Insulin] 100 unit/mL (3 mL) insulin pen 37 unit subcut BEDTIME metoprolol tartrate 50 mg Tablet 50 mg PO BID docusate sodium [Colace] 100 mg Capsule 100 mg PO BID PRN (Reason: Constipation) fluoxetine 20 mg capsule 20 mg PO DAILY losartan 100 mg tablet 100 mg PO BID metformin 500 mg tablet 500 mg PO BIDWM atorvastatin 80 mg tablet 80 mg PO BEDTIME ezetimibe 10 mg tablet 10 mg PO BEDTIME (DME) pen needle, diabetic 32 gauge x 5/32 needle See Rx Instructions .ROUTE DAILY Qty: 50 Rx Instructions: As directed Discharge Orders: Discharge Order (Routine); Ordered 05/23/24 Ordered By: Jerod Gasca Diet: Advance to usual diet Activity on Discharge: As tolerated Stand Alone Forms: Patient Portal Discharge page Print Language: Kinyarwanda Care Plan Goals: recovery Health Concerns: copd Plan of Treatment: hodling steroids due to high sugars, can treat with duonebs Assessment: see above
--- NOTE | 2024-05-23 11:06 | MHC.CM.PN ---
IMM 05/23/24, PT MEDICALLY CLEARED FOR DC TO [facility] FOR [facility]SP[facility] AT1:30PM
[2024-05-23 11:24] LABS: Glucose, Whole Blood 342 mg/dL (60-115)
[2024-05-23] MEDS: amLODIPine Besylate 2.5 MG TABLET PO (11:46)
[2024-05-23] MEDS: Heparin Sodium,Porcine 5,000 UNIT/ML VIAL 5000 UNIT SUBCUT (11:49)
[2024-05-24 06:26] LABS: Glucose, Whole Blood 582 mg/dL (60-115)
[2024-05-24 13:09] LABS: Methylmalonic Acid 171 nmol/L (69-390)
== END 2024-05-23 13:30 | disposition skilled nursing facility (03) | DRG 190 ==
LOC: HO.ED 13:57 → HO.EDOVER 22:52 → HO.IMC 05-17 04:40
PROVIDERS: Emergency Medicine; Family Medicine; Internal Medicine; Internal Medicine Gastroenterology; Nurse Practitioner Acute Care; Physician Assistant; Physician Assistant Medical; Student in an Organized Health Care Education/Training Program; Admitting Provider Internal Medicine; Emergency Provider Emergency Medicine; PCP Internal Medicine; Visit Provider Internal Medicine
DX: J43.9 Emphysema, unspecified (principal); I50.33 Acute on chronic diastolic (congestive) heart failure; J96.01 Acute respiratory failure with hypoxia; I13.0 Hypertensive heart and chronic kidney disease with heart failure and stage 1 through stage 4 chronic kidney disease, or unspecified chronic kidney disease; I25.10 Atherosclerotic heart disease of native coronary artery without angina pectoris; E78.5 Hyperlipidemia, unspecified; D50.9 Iron deficiency anemia, unspecified; E11.51 Type 2 diabetes mellitus with diabetic peripheral angiopathy without gangrene; N18.30 Chronic kidney disease, stage 3 unspecified; K59.00 Constipation, unspecified; E11.22 Type 2 diabetes mellitus with diabetic chronic kidney disease; F32.A Depression, unspecified; D63.8 Anemia in other chronic diseases classified elsewhere; E66.01 Morbid (severe) obesity due to excess calories; E11.65 Type 2 diabetes mellitus with hyperglycemia; G47.33 Obstructive sleep apnea (adult) (pediatric); Z68.39 Body mass index [BMI] 39.0-39.9, adult; Z20.822 Contact with and (suspected) exposure to COVID-19; Z86.73 Personal history of transient ischemic attack (TIA), and cerebral infarction without residual deficits; Z79.02 Long term (current) use of antithrombotics/antiplatelets; Z79.82 Long term (current) use of aspirin; Z79.4 Long term (current) use of insulin; Z79.51 Long term (current) use of inhaled steroids; Z79.84 Long term (current) use of oral hypoglycemic drugs; Z79.899 Other long term (current) drug therapy
CPT/HCPCS: 0241U; 36415; 70450; 71045; 71046; 71260; 72125; 74177; 78580; 80048; 80053; 80076; 81003; 82272; 82550; 82607; 82728; 82746; 82784; 82803; 82947; 83010; 83540; 83615; 83735; 83880; 83921; 84165; 84484; 85025; 85027; 85045; 85379; 85610; 85730; 86258; 86334; 86364; 93005; 94640; 97110; 97116; 97161; 97530; 99285; A9540; C9113; J1644; J1650; J1940; J2919; Q9967

== ENCOUNTER → 2024-05-16 13:18 | Outpatient (BNV) | payer MEDICARE, MEDICAID, SELFPAY | PROVIDERS: Emergency Provider Emergency Medicine; PCP Internal Medicine; Visit Provider Internal Medicine Cardiovascular Disease | DX: R94.31 Abnormal electrocardiogram [ECG] [EKG] (principal) | CPT/HCPCS: 93010 ==

== ENCOUNTER → 2024-05-16 22:41 | Outpatient (BNV) | payer MEDICARE, MEDICAID, SELFPAY | PROVIDERS: Admitting Provider Internal Medicine; Emergency Provider Emergency Medicine; PCP Internal Medicine; Visit Provider Internal Medicine | DX: J96.01 Acute respiratory failure with hypoxia (principal); D64.89 Other specified anemias | CPT/HCPCS: 99223; 99232; 99239 ==

== ENCOUNTER → 2024-05-16 22:41 | Outpatient (BNV) | payer MEDICARE, MEDICAID, SELFPAY | PROVIDERS: Admitting Provider Internal Medicine; Emergency Provider Emergency Medicine; PCP Internal Medicine; Visit Provider Internal Medicine | DX: D64.9 Anemia, unspecified (principal) | CPT/HCPCS: 99222 ==

== ENCOUNTER → 2024-05-16 22:41 | Outpatient (BNV) | payer MEDICARE, MEDICAID, SELFPAY | PROVIDERS: Admitting Provider Internal Medicine; Emergency Provider Emergency Medicine; PCP Internal Medicine; Visit Provider Hospitalist | DX: J96.01 Acute respiratory failure with hypoxia (principal); G47.33 Obstructive sleep apnea (adult) (pediatric); Z99.89 Dependence on other enabling machines and devices | CPT/HCPCS: 99223; 99232 ==

== ENCOUNTER → 2024-05-16 22:41 | Outpatient (BNV) | payer MEDICARE, MEDICAID, SELFPAY | PROVIDERS: Admitting Provider Internal Medicine; Emergency Provider Emergency Medicine; PCP Internal Medicine; Visit Provider Internal Medicine Gastroenterology | DX: D64.89 Other specified anemias (principal) | CPT/HCPCS: 99223; 99232 ==

== ENCOUNTER 2024-06-14 11:18 | Emergency (ER) | payer MEDICARE, MEDICAID, SELFPAY ==
[2024-06-14] VITALS (8 sets, daily range): BP systolic 125–172; BP diastolic 46–123; PULSE 66–78; RESP 14–19; TEMP 36.3–36.9; O2SAT 91–98; BMI 40.0
--- NOTE | ~2024-06-14 | CT_ITS ---
EXAMINATION: CT ANGIOGRAM HEAD CT ANGIOGRAM NECK CLINICAL INFORMATION: Slurred speech. Dizziness. COMPARISON: CT head from 06/14/2024. TECHNIQUE: Initial noncontrast ed teacher imaging of the head and neck was performed. Comparison is made with noncontrast head CT from earlier today. Test bolus sequences followed by intravenous administration 70 mL of Omnipaque 350. Helical imaging was performed in the axial plane from the aortic arch to the skull vertex. Delayed postcontrast imaging of the head was also performed. The data was processed at the senior cytogenetic technologist's workstation for generation of MIP sequences. Angled MIPs and volume rendered reformatted images were also generated at an offline 3D workstation. Stenoses are assessed in accordance with NASCET criteria unless otherwise indicated. This CT examination was performed using dose optimization techniques as appropriate, variously including the following: *Automated exposure control. *Adjustment of mA and/or kV according to patient size (this includes techniques or standardized protocols for targeted exams where dose is matched to indication/reason for exam; i.e. extremities or head). *Use of iterative reconstruction technique. DLP: 1561 mGy-cm FINDINGS: CT Head: There is no evidence of acute intracranial hemorrhage or edematous territorial infarction. Mazariegos-white matter differentiation is preserved. Scattered and partially confluent hypoattenuation in the periventricular and deep white matter are consistent with moderate microangiopathy. Proportional prominence of the ventricles and sulcal spaces without evidence of obstructive hydrocephalus. No abnormal mass effect or midline shift. No extra-axial fluid collections. No pathologic intra-axial enhancement. No acute soft tissue or osseous abnormalities. Mild mucosal thickening of the paranasal sinuses. The mastoid air cells and middle ear cavities are clear. The patient is a dentulous. CT Neck: The thyroid gland and remaining cervical soft tissues are within normal limits. Straightening of the normal cervical lordosis. Mild degenerative anterior listhesis of C3 on C4. Ankylosis of the left-sided C2-C3 facets. Moderate multilevel degenerative spondyloarthropathy of the cervical spine. CT Upper Chest: Small bilateral pleural effusions. Mild bilateral dependent atelectasis. Moderate centrilobular emphysema in the visualized upper lungs. Neck CTA: Moderately motion degraded exam. Aortic Arch: Normal contour and caliber with heavy calcific atherosclerotic disease. Four vessel branching pattern with left vertebral artery arising directly from the arch between the left common carotid and left subclavian arteries. Great Vessel Origins: No significant stenosis of the branch origins. Right Common Carotid Artery: No focal stenosis or occlusion. Cervical Right Internal Carotid Artery: Calcific atherosclerotic disease of the carotid bulb and proximal internal carotid artery causing less than 50% stenosis. Left Common Carotid Artery: No focal stenosis or occlusion. Cervical Left Internal Carotid Artery: Calcific atherosclerotic disease of the carotid bulb and proximal internal carotid artery causing 50% stenosis. Cervical Right Vertebral Artery: Dominant. Atherosclerotic disease causes moderate stenoses of the V1 and V3 segments. No additional flow-limiting stenosis or occlusion. Cervical Left Vertebral Artery: Left vertebral artery arises directly from the aortic arch. Atherosclerotic disease causes moderate stenosis of the V1 segment. No additional flow-limiting stenosis or occlusion. Brain CTA: Intracranial Internal Carotid Arteries: Calcific atherosclerotic disease of the intracranial internal carotid arteries without occlusion or flow-limiting stenosis. Right Anterior Cerebral Artery: Normal A1 segment. Normal opacification of the distal LISA segments. Left Anterior Cerebral Artery: Normal A1 segment. Normal opacification of the distal LISA segments. Anterior Communicating Artery: Normal. Right Middle Cerebral Artery: Normal M1 segment of the MCA without focal stenosis or occlusion. Normal arborization of the distal segments. Left Middle Cerebral Artery: Normal M1 segment of the MCA without focal stenosis or occlusion. Normal arborization of the distal segments. Right Vertebral Artery: Normal V4 segment. Normal opacification of the proximal segments of the posterior inferior cerebellar artery. Left Vertebral Artery: The V4 segment largely terminates as the posterior inferior cerebellar artery. Basilar Artery: The vertebrobasilar system is hypoplastic in the setting of origins of the bilateral posterior cerebral arteries. Otherwise, normal without focal stenosis or occlusion. Normal appearance of the proximal superior cerebellar arteries. Right Posterior Cerebral Artery: The P1 segment is diminutive. origin of the OIL LABORATORY ANALYST with robust opacification of the posterior communicating artery. Normal opacification of the distal OIL LABORATORY ANALYST segments. Left Posterior Cerebral Artery: The P1 segment is diminutive. origin of the OIL LABORATORY ANALYST with robust opacification of the posterior communicating artery. Normal opacification of the distal OIL LABORATORY ANALYST segments. Normal opacification of the superior sagittal, straight, transverse, and sigmoid sinuses. CT/CT angio head neck stroke IMPRESSION: 1. No evidence of acute intracranial hemorrhage or edematous territorial infarction. Moderate underlying microangiopathy and generalized cerebral volume loss. 2. CTA of the head and neck without proximal occlusion. 3. Atherosclerotic disease causes 50% stenosis of the origin of the left ICA. There are moderate stenoses of the V1 and V3 segments of the bilateral vertebral arteries. The vertebrobasilar system is hypoplastic in the setting of origins of the bilateral posterior cerebral arteries. 4. Small bilateral pleural effusions. This critical result was discussed with Dr. Leon at 12:25 on 06/14/2024. and it was ascertained that the content and urgency of the report was understood at the time of direct communication.
--- NOTE | ~2024-06-14 | CT_ITS ---
EXAMINATION: CT HEAD WITHOUT CONTRAST (STROKE PROTOCOL) CLINICAL INFORMATION: Stroke protocol. Slurred speech COMPARISON: CTA head from 05/16/2024 TECHNIQUE: Contiguous axial imaging was performed from the skull base to vertex without intravenous administration of contrast. This CT examination was performed using dose optimization techniques as appropriate, variously including the following: *Automated exposure control *Adjustment of mA and/or kV according to patient size (this includes techniques or standardized protocols for targeted exams where dose is matched to indication/reason for exam; i.e. extremities or head) *Use of iterative reconstruction technique DLP: 722 mGy-cm FINDINGS: There is no evidence of acute intracranial hemorrhage or territorial infarction. Chronic white matter small vessel ischemic changes. Cerebral atrophy with commensurate ventricular changes. Stable punctate radiodensity in the posterior right centrum semiovale. No abnormal mass effect or midline shift is seen. Mazariegos to white matter differentiation is well preserved. No extra-axial fluid collections are identified. The ventricles are normal in size. There is no abnormal attenuation within the brain parenchyma. Stable comminution of the right nasal bone. The osseous structures and soft tissues are normal. The mastoid air cells and visualized portions of the paranasal sinuses are well aerated. Atherosclerotic calcific CT/CT head for stroke IMPRESSION: 1. No acute intracranial pathology. 2. Chronic white matter small vessel ischemic changes. This critical result was discussed with DR EUGENIA GEORGE by telephone on 06/14/2024 11:42 AM and it was ascertained that the content and urgency of the report was understood at the time of direct communication.
--- NOTE | 2024-06-14 11:26 | ECG_ITS ---
Test Reason : stroke symptoms Blood Pressure : / mmHG Vent. Rate : 077 BPM Atrial Rate : 077 BPM P-R Int : 158 ms QRS Dur : 080 ms QT Int : 396 ms P-R-T Axes : 066 041 037 degrees QTc Int : 448 ms Normal sinus rhythm Nonspecific ST and T wave abnormality Abnormal ECG When compared with ECG of 16-MAY-2024 13:24, No significant changes seen Referred By: Archana Leon Electronically Signed By:CHRIS PINO
[2024-06-14 11:33] LABS: Glucose, Whole Blood 151 mg/dL (60-115)
--- NOTE | 2024-06-14 11:47 | ED_ITS ---
HPI - Neuro Symptoms/Deficit General Chief Complaint: Stroke Stated Complaint: SLURRED SPEECH UNSTEADY GAIT Source: patient, EMS and old records reviewed Mode of arrival: EMS Limitations: no limitations History of Present Illness ED Provider: ARIEL HPI Narrative: 78 yo female with PMH of COPD not on home O2, HLD, DM2, PAD, CHF, obesity, HAYDEE on CPAP, TIA on aspirin and plavix just admitted here back in April for R arm weakness/droop/slurred speech - MRI negative outpatient follow up recommended. She comes in today noting when she woke up to use bathroom around 9am she felt dizzy and wobbly like she might fall. When a new OT marco around 1030am they noted she was wobbly with slurred speech. She did just start gabapentin on 06/11. She cannot tell me when she was last well and not wobbly she has macular degeneration and could not see the clock but she felt okay some time in the middle of the night urinating. Daughter did not note slurred speed on the phone at 10am Onset (ago): unknown (9am vs earlier) Timing confirmed by: family member and other (self) Location: speech and ataxia History of same: Yes Severity: mild Relieving factors: none Exacerbating factors: none Context: gradual onset On Anticoagulants: No Associated symptoms: denies other symptoms Treatments Prior to Arrival: none Related Data Home Medications ?Medication ?Instructions ?Recorded ?Confirmed atorvastatin 80 mg tablet 80 mg PO BEDTIME 12/08/20 05/17/24 ezetimibe 10 mg tablet 10 mg PO BEDTIME 12/08/20 05/17/24 fluoxetine 20 mg capsule 20 mg PO DAILY 12/08/20 05/17/24 losartan 100 mg tablet 100 mg PO BID 12/08/20 05/17/24 metformin 500 mg tablet 500 mg PO BIDWM 12/08/20 05/17/24 pen needle, diabetic 32 gauge x #50 ea 05/25/21 11/07/23 albuterol sulfate 90 mcg/actuation 2 puff inhalation Q4-6H PRN 01/10/23 05/17/24 aerosol inhaler wheezing acetaminophen 325 mg tablet 650 mg PO Q6H PRN Pain 04/30/24 05/17/24 (Tylenol) amlodipine 2.5 mg tablet 2.5 mg PO DAILY@1200 04/30/24 05/17/24 aspirin 81 mg tablet,delayed 81 mg PO DAILY 04/30/24 05/17/24 release fluticasone propionate 50 1 spray intranasal DAILY 04/30/24 05/17/24 mcg/actuation nasal spray,suspension loratadine 10 mg tablet 10 mg PO DAILY PRN Allergy Symptoms 04/30/24 05/17/24 vit C 250 mg-vit E 90 mg-zinc 40 1 tab PO BID 04/30/24 05/17/24 mg-copper 1 mn-iyqqyj-vfleff capsule (PreserVision AREDS-2) docusate sodium 100 mg capsule 100 mg PO BID PRN Constipation 05/17/24 05/17/24 (Colace) insulin glargine 100 unit/mL (3 37 unit subcut BEDTIME 05/17/24 05/17/24 mL) subcutaneous pen (Basaglar KwikPen U-100 Insulin) metoprolol tartrate 50 mg tablet 50 mg PO BID 05/17/24 05/17/24 Previous Rx's ?Medication ?Instructions ?Recorded nitroglycerin 0.4 mg sublingual 0.4 mg sublingual Q5M PRN chest 03/10/22 tablet pain #20 tabs clopidogrel 75 mg tablet 75 mg PO DAILY #30 tabs 05/03/24 omeprazole 20 mg capsule,delayed 20 mg PO DAILY@0630 30 days #30 05/03/24 release caps ferrous sulfate 324 mg (65 mg 324 mg PO DAILY #0 tabs 05/23/24 iron) tablet,delayed release Allergies Allergy/AdvReac Type Severity Reaction Status Date / Time adhesive tape Allergy Mild Unknown Verified 06/14/24 11:41 bee pollen [bee stings] Allergy Mild Swelling Verified 06/14/24 11:41 oxycodone [OXYCODONE] Allergy Mild ITCHING, Verified 06/14/24 11:41 itchy prednisone Allergy Unknown Verified 06/14/24 11:41 hydromorphone [From DILAUDID] AdvReac Mild ITCHING Verified 06/14/24 11:41 Review of Systems 2 Review of Systems: Constitutional : No Fever, No Chills, No Fatigue ENT/Mouth : No sore throat, No Rhinorrhea Eyes: No Eye Pain, No Swelling, No Redness Cardiovascular : No Chest Pain, No SOB, No Dyspnea on Exertion Respiratory : No Cough, No Sputum Gastrointestinal : No Nausea, No Vomiting, No Diarrhea, No abdominal Pain Genitourinary : No Dysuria, No Urinary Frequency, No Hematuria, Musculoskeletal : No joint pain, No Myalgias, No Joint Swelling Skin : No Skin Lesions, No rash Neuro : No Weakness, No Numbness, pos Dizziness, no Headache, pos slurred speech Psych : No Anxiety/Panic, No Depression Heme/Lymph: No Bruising, No Bleeding,No Lymphadenopathy Endocrine : No Polyuria, No Polydipsia All other systems reviewed and are negative [facility] Past Medical History Medical History (Updated 06/14/24 @ 15:33 by Archana Leon DO) Stenosis of left subclavian artery Multiple falls Macular degeneration Overactive bladder Chest tightness Abnormal nuclear stress test Cataract HAYDEE on CPAP Mild anemia Hypercholesterolemia Resting tremor Osteoarthritis Unsteady gait Vertigo Sleep apnea Diabetic retinopathy Hiatal hernia Depression COPD (chronic obstructive pulmonary disease) CKD (chronic kidney disease) Orthostatic hypotension NSTEMI (non-ST elevated myocardial infarction) Syncope HLD (hyperlipidemia) CAD (coronary artery disease) High cholesterol Diabetes Heart attack Stroke Surgical History Status post cardiac catheterization History of cataract extraction Hx of colonoscopy Hx of vaginal hysterectomy Stented coronary artery History of cardiac catheterization Family History Family History Father CVD (cardiovascular disease) Mother Brain aneurysm Social History Social History Household Members: Significant Other Housing: Apartment Are you a primary wound care physician to a significant other at home: No Do you presently have visiting nurse or other home services: Yes Unable to assess alcohol history related to: Unknown Alcohol intake: never Patient Tobacco Use Status: Former Tobacco user Tobacco use type: Cigarette Years Smoked: 50 e-Cigarette/Vaping Use: Former Use Second Hand Smoke Exposure: No Advance Directives: Yes Advance Directives on File: Yes Advance Directives Date on File: 01/18/23 service: No Current occupational status: retired Physical Exam 2 Vital Signs: Vital Signs: Last Vital Signs Temp 97.6 F 06/14/24 14:42 Pulse 66 06/14/24 15:00 Resp 14 06/14/24 14:42 BP 159/58 H 06/14/24 15:00 Pulse Ox 98 06/14/24 15:00 O2 Del Method Nasal Cannula 06/14/24 15:00 O2 Flow Rate 4 06/14/24 14:38 Oxygen Flow Rate 3 06/14/24 11:38 BMI result Body Mass Index 40.0 Appearance: Alert. Oriented X3. No acute distress. anxious Eyes: Pupils equal, round and reactive to light. ENT: Pharynx normal. Neck: Normal inspection. Neck supple. CVS: Normal heart rate and rhythm. Pulses normal. Respiratory: No respiratory distress. Breath sounds normal. Abdomen: Soft and nontender. Skin: Skin warm and dry. Normal skin color. Normal skin turgor. Extremities: No lower extremity edema. No calf ttp Neuro: Oriented X 3. No motor deficit. No sensory deficit. no drift in arms, SILT throughout, CN2-12intact, she is having a fluent conversation with me I do not appreciate slurred words though she and daughter feel like her speech is off - both RN and business operations coordinator also do not note slurred speech Course Course Course Narrative: daughter is here and again notes same constellation of symptoms she was admitted for recently in regards to TIA work up slurred speech, dizziness, R facial droop still no symptoms 125pm that I can noted on exam Reevaluation(s) Reevaluation #1: trop flat Medications Administered Discontinued Medications Generic Name Dose Route Start Last Admin Trade Name Amauryq PRN Reason Stop Dose Admin Iohexol 100 ml 06/14/24 11:50 06/14/24 11:50 Iohexol 350 Mg/Ml 100 Ml Infus..Btl IV 06/14/24 11:51 70 ml ONCE ONE Administration Medical Decision Making Medical Decision Making [facility] Narrative: 78 yo female with PMH of COPD not on home O2, HLD, DM2, PAD, CHF, obesity, HAYDEE on CPAP, TIA on aspirin and plavix here with noting she was wobbly getting up around 9am this morning cannot tell me last known well and then family noted slurred speech at 1030am I do not appreciate any deficits NIH 0 given this not a TNK candidate and last known well is not clear. Will obtain labs, stroke protocol and also could be related to gabapentin. Will also rule out other causes with labs and UA. Differential Diagnosis Differential Diagnoses: The differential diagnosis associated with the presentation includes TIA, anxiety, med reaction Admission/Observation Consideration of admission/observation: Escalation of care including admission/observation considered physician observation started at 1438 pending acute rehab and placement Consult Healthcare Provider Management of the patient was discussed with: Vehicle Leasing And Rental Manager spoke to Dr. Arshad nothing to be added on continue medications will have PT assess patient for gait issues Lab Data MDM Lab Attestation statement: I reviewed the patient's lab results. 06/14/24 12:07 06/14/24 12:07 Labs: Lab Results 06/14/24 06/14/24 06/14/24 Range/Units 11:23 11:26 12:07 WBC 10.4 (4.8-10.8) X10*3/uL RBC 3.35 L (4.20-5.50) X10*6/uL Hgb 10.4 L (12.0-16.0) g/dl Hct 33.3 L (37.0-47.0) % MCV 99.4 H (80.0-98.0) fL MCH 31.0 (27.0-33.0) pg MCHC 31.2 (31.0-35.0) g/dl RDW 15.9 (11.0-16.0) % Plt Count 192 D (160-400) X10*3/uL MPV 11.0 (9.4-12.3) fL Immature Gran % (Auto) 0.3 (0.0-0.4) % Neut % (Auto) 75.6 H (45-73) % Lymph % (Auto) 15.4 L (20-40) % Lanier % (Auto) 6.1 (2-11) % Eos % (Auto) 2.0 (0-4) % Baso % (Auto) 0.6 (0-2) % Lymph # (Auto) 1.6 (1.2-4.9) X10*3/uL Lanier # (Auto) 0.6 (0.1-1.2) X10*3/uL Eos # (Auto) 0.2 (0.0-0.4) X10*3/uL Baso # (Auto) 0.1 (0.0-0.2) X10*3/uL Abs Immat Gran (auto) 0.03 (0.00-0.03) X10*3/uL Absolute Neuts (auto) 7.9 (2.0-8.3) x10*3/uL Absolute Nucleated RBC 0.000 (0.0-0.012) X10*3/uL Nucleated RBC % (auto) 0.0 (0.0-0.2) /100WBC PT 13.1 (11.1-13.3) SEC Whole Blood PT 12.4 (11.1-13.5) sec INR 1.1 (0.9-1.1) Whole Blood INR 1.0 (0.9-1.1) Sodium 140 (135-145) mmol/L Potassium 4.3 (3.3-5.1) mmol/L Chloride 109 H (96-108) mmol/L Carbon Dioxide 20 L (22-29) mmol/L Anion Gap 15 (12-20) BUN 21 H (9-16) mg/dL Creatinine 1.01 (0.5-1.4) mg/dL Estim Creat Clear Calc 44.8 Estimated GFR 53 POC Glucose 151 H (60-115) mg/dL Random Glucose 154 H (60-115) mg/dL Calcium 9.5 (8.4-10.2) mg/dL Magnesium 1.8 (1.6-2.6) mg/dL Total Bilirubin 0.8 (0.0-1.0) mg/dL Direct Bilirubin 0.3 (0.0-0.5) mg/dL AST 13 (5-31) U/L ALT 10 (0-31) U/L Alkaline Phosphatase 103 (39-117) U/L Troponin I High Sens < 2.7 D (<3.5-17.0) ng/L Total Protein 6.6 (6.5-8.0) g/dL Albumin 3.5 (3.5-5.0) g/dL Lipase 26 (8-78) U/L COVID-19 (PINKY) (Negative) COVID-19 Clin Com 06/14/24 Range/Units 14:47 WBC (4.8-10.8) X10*3/uL RBC (4.20-5.50) X10*6/uL Hgb (12.0-16.0) g/dl Hct (37.0-47.0) % MCV (80.0-98.0) fL MCH (27.0-33.0) pg MCHC (31.0-35.0) g/dl RDW (11.0-16.0) % Plt Count (160-400) X10*3/uL MPV (9.4-12.3) fL Immature Gran % (Auto) (0.0-0.4) % Neut % (Auto) (45-73) % Lymph % (Auto) (20-40) % Lanier % (Auto) (2-11) % Eos % (Auto) (0-4) % Baso % (Auto) (0-2) % Lymph # (Auto) (1.2-4.9) X10*3/uL Lanier # (Auto) (0.1-1.2) X10*3/uL Eos # (Auto) (0.0-0.4) X10*3/uL Baso # (Auto) (0.0-0.2) X10*3/uL Abs Immat Gran (auto) (0.00-0.03) X10*3/uL Absolute Neuts (auto) (2.0-8.3) x10*3/uL Absolute Nucleated RBC (0.0-0.012) X10*3/uL Nucleated RBC % (auto) (0.0-0.2) /100WBC PT (11.1-13.3) SEC Whole Blood PT (11.1-13.5) sec INR (0.9-1.1) Whole Blood INR (0.9-1.1) Sodium (135-145) mmol/L Potassium (3.3-5.1) mmol/L Chloride (96-108) mmol/L Carbon Dioxide (22-29) mmol/L Anion Gap (12-20) BUN (9-16) mg/dL Creatinine (0.5-1.4) mg/dL Estim Creat Clear Calc Estimated GFR POC Glucose (60-115) mg/dL Random Glucose (60-115) mg/dL Calcium (8.4-10.2) mg/dL Magnesium (1.6-2.6) mg/dL Total Bilirubin (0.0-1.0) mg/dL Direct Bilirubin (0.0-0.5) mg/dL AST (5-31) U/L ALT (0-31) U/L Alkaline Phosphatase (39-117) U/L Troponin I High Sens 4.4 D (<3.5-17.0) ng/L Total Protein (6.5-8.0) g/dL Albumin (3.5-5.0) g/dL Lipase (8-78) U/L COVID-19 (PINKY) Negative (Negative) COVID-19 Clin Com See Note Independent Interpretation I performed an independent interpretation of an: EKG and CT Scan Interpretation: Rate: 77 Rhythm: NSR Conrad: normal Normal P waves. Normal ARMANI. Normal QRS complex. ST T wave : nonspecific ST T wave changes lateral leads qTC: 448 prior studies: no change from prior The study has been interpreted contemporaneously by me. . Radiology Impression Discussion of test interpretation with radiology: I discussed test interpretation with the radiologist and I have reviewed the radiologist's reading. Radiologist Impression: 1148am - dry negative CT head CTA 1225pm - decent atherosclerotic ds, baseline hypoplastic posterior circulation ds Independent Historian Clinical information obtained from an independent historian. History obtained from or confirmed by: EMS External Record Review External record reviewed: Inpatient record NIH Stroke Scale Internal: Initial- Upon Arrival Level of Consciousness: Alert Level of Consciousness Questions: Answers both questions correctly Level of Consciousness Commands: Performs both tasks correctly Best Gaze: Normal Visual: No visual loss Facial Palsy: Normal Motor Arm (Right): No drift Motor Arm (Left): No drift Motor Leg (Right): No drift Motor Leg (Left): No drift Limb Ataxia: Absent Sensory: Normal Best Language: No aphasia Dysarthia: Normal Extinction and Inattention: No abnormality Score: 0 Discharge Plan Discharge Clinical Impression: Weakness Patient Disposition: Still a Patient Prescriptions: No Action nitroglycerin 0.4 mg tablet, sublingual 0.4 mg sublingual Q5M PRN (Reason: chest pain) Qty: 20 1RF Rx Instructions: do not exceed 3 doses per episode albuterol sulfate 90 mcg/actuation HFA aerosol inhaler 2 puff INHALATION Q4-6H PRN (Reason: wheezing) acetaminophen [Tylenol] 325 mg Tablet 650 mg PO Q6H PRN (Reason: Pain) aspirin 81 mg Tablet,Delayed Release (Dr/Ec) 81 mg PO DAILY PreserVision AREDS-2 250-90-40-1 mg Capsule 1 tab PO BID amlodipine 2.5 mg tablet 2.5 mg PO DAILY@1200 Hold Instructions: resume if bp remains elevated fluticasone propionate 50 mcg/actuation spray,suspension 1 spray intranasal DAILY loratadine 10 mg tablet 10 mg PO DAILY PRN (Reason: Allergy Symptoms) clopidogrel 75 mg Tablet 75 mg PO DAILY Qty: 30 0RF omeprazole 20 mg Capsule,Delayed Release(Dr/Ec) 20 mg PO DAILY@0630 30 Days Qty: 30 0RF insulin glargine [Basaglar KwikPen U-100 Insulin] 100 unit/mL (3 mL) insulin pen 37 unit subcut BEDTIME metoprolol tartrate 50 mg Tablet 50 mg PO BID docusate sodium [Colace] 100 mg Capsule 100 mg PO BID PRN (Reason: Constipation) ferrous sulfate 324 mg (65 mg iron) Tablet,Delayed Release (Dr/Ec) 324 mg PO DAILY Qty: 0 0RF fluoxetine 20 mg capsule 20 mg PO DAILY losartan 100 mg tablet 100 mg PO BID metformin 500 mg tablet 500 mg PO BIDWM atorvastatin 80 mg tablet 80 mg PO BEDTIME ezetimibe 10 mg tablet 10 mg PO BEDTIME (DME) pen needle, diabetic 32 gauge x 5/32 needle See Rx Instructions .ROUTE DAILY Qty: 50 Rx Instructions: As directed Print Language: Danish
[2024-06-14] MEDS: iohexoL 350 MG/ML 100 ML INFUS..BTL IV (11:50)
[2024-06-14 12:12] LABS: MANUAL DIFF FLAG NO
[2024-06-14 12:13] LABS: Basophils Absolute Auto 0.1 X10*3/uL (0.0-0.2); Basophils Percent Auto 0.6 % (0-2); Eosinophils Absolute Auto 0.2 X10*3/uL (0.0-0.4); Hematocrit 33.3 % (37.0-47.0); Hemoglobin 10.4 g/dl (12.0-16.0); Imm Gran Abs Auto 0.03 X10*3/uL (0.00-0.03); Imm Gran Pct Auto 0.3 % (0.0-0.4); Lymphocytes Absolute Auto 1.6 X10*3/uL (1.2-4.9); Lymphocytes Percent Auto 15.4 % (20-40); Mean Corpuscular HGB Conc 31.2 g/dl (31.0-35.0); Mean Corpuscular Volume 99.4 fL (80.0-98.0); Monocytes Absolute Auto 0.6 X10*3/uL (0.1-1.2); Monocytes Percent Auto 6.1 % (2-11); Neutrophils Absolute Auto 7.9 x10*3/uL (2.0-8.3); Neutrophils Percent Auto 75.6 % (45-73); Platelet Count 192 X10*3/uL (160-400); Red Blood Count 3.35 X10*6/uL (4.20-5.50); Red Cell Distribution Width 15.9 % (11.0-16.0); White Blood Count 10.4 X10*3/uL (4.8-10.8)
[2024-06-14 12:21] LABS: INTERNATIONAL NORM RATIO 1.1 (0.9-1.1); Prothrombin Time 13.1 SEC (11.1-13.3)
[2024-06-14 12:27] LABS: Alanine Aminotransferase 10 U/L (0-31); Albumin Level 3.5 g/dL (3.5-5.0); Alkaline Phosphatase 103 U/L (39-117); Anion Gap 15 (12-20); Aspartate Amino Transferase 13 U/L (5-31); Bilirubin Direct 0.3 mg/dL (0.0-0.5); Bilirubin Total 0.8 mg/dL (0.0-1.0); Blood Urea Nitrogen 21 mg/dL (9-16); Calcium 9.5 mg/dL (8.4-10.2); Carbon Dioxide 20 mmol/L (22-29); Chloride 109 mmol/L (96-108); Creatinine Clr Calc Pharmacy 44.8; Estimated Glomerular Filt Rate 53; Glucose Random 154 mg/dL (60-115); Lipase 26 U/L (8-78); Magnesium 1.8 mg/dL (1.6-2.6); Potassium 4.3 mmol/L (3.3-5.1); Sodium 140 mmol/L (135-145); Total Protein 6.6 g/dL (6.5-8.0)
[2024-06-14 12:34] LABS: Troponin-I High Sensitivity < 2.7 ng/L (<3.5-17.0)
[2024-06-14 13:32] LABS: Prothrombin Time Whole Bld POC 12.4 sec (11.1-13.5)
[2024-06-14 15:23] LABS: COVID-19 Test Negative (Negative); IDNOW Serial# 58CA691E
[2024-06-14 15:38] LABS: Troponin-I High Sensitivity 4.4 ng/L (<3.5-17.0)
[2024-06-14 17:38] LABS: Appearance Urine Cloudy; Color Urine Yellow; Glucose Urine UA Negative (Negative); Leukocyte Esterase Urine Moderate (2+) (Negative); Nitrite Urine Positive (Negative); PH 5.5 (5.0-9.0); Specific Gravity - Urine >= 1.030 (1.005-1.025); UMIC TRIGGER UACC YES; Urine Blood Moderate (2+) (Negative); Urine Ketones Negative (Negative); Urine Protein 30 (1+) mg/dL (Neg-Trace)
[2024-06-14 17:49] LABS: Bacteria Urine 4+ (None Seen); Hyaline Casts Urine 0-2 /LPF (0-2); RBC Urine 0-2 /HPF (0-2); Squamous Epithelial Cell Urine 0-2 /HPF (0-2); UACC Culture Trigger YES; WBC Urine 21-50 /HPF (0-5)
--- NOTE | 2024-06-14 20:14 | PC.NURSE ---
pt alert. feeding self for dinner. daughter has been at bedside but is leaving. CPAP from home at bedside and labled with patient lable. Repositioned and given a hospital bed as she awaits short term rehab. NAD.
--- NOTE | 2024-06-14 21:57 | MHC.CM.ED ---
Addendum entered by Emma Duran 06/14/24 22:03: [facility] offered a bed and patient has accepted. BLS transport booked tomorrow at 9:30am. Med nec, face sheet and ED worksheet to crude unit operator. Pt aware. Original Note: CM met with patient at the request of Dr. Leon. Pt was at [facility] from 05/23-06/11 after [place] [facility] [place] and [place]. Pt came to ED today with TIA sx and weakness. Pt is medically cleared. Pt is requesting to return to [facility]. Referral placed by previous CM. Pt was discharged from [facility] 06/11 with [facility] for [facility]. Pt had 1 visit. Will alert agency of patients return to [facility]. Pt lives with her boyfriend, Wayne Eaton. She has services with [facility] [employer] and [facility]. She uses a rollator and recent continuous Oxygen at 2L from [facility]. HCP is on file. HCP/daughter Claire Delaney ([phone]). Will follow for D/C plan.
[2024-06-15 00:05] VITALS: BP 158/42; PULSE 72; RESP 16; TEMP 36.8; O2SAT 97
--- NOTE | 2024-06-15 00:43 | MHC.EDTECH ---
This tech took over care of patient at 2300 hourly rounds and vitals completed.Patient was incot. of a large amount of urine,mitchell-care given,pure-wick placed to keep patient clean and dry. Call talbert in reach bed alarm on for safety
[2024-06-15 05:42] VITALS: BP 180/60; PULSE 70; RESP 14; TEMP 36.7; O2SAT 97
--- NOTE | 2024-06-15 05:44 | MHC.EDTECH ---
Hourly rounds and vitals completed,BP was elevated 180/60 RN was made aware,patient was repositioned to comfort,emptied 350MLS of yellow urine from suction canister,belongings list completed and copy placed in chart
--- NOTE | 2024-06-15 07:55 | PC.NURSE ---
Provider to order reconciled meds (reconciled on prior shift) Pt awaits transport to [facility] in [place]
[2024-06-15 08:46] VITALS: BP 142/86; PULSE 75
[2024-06-15] MEDS: Losartan Potassium 50 MG TABLET 100 MG PO (08:46)
[2024-06-15] MEDS: Metoprolol Tartrate 25 MG TABLET PO (08:46)
[2024-06-15] MEDS: Clopidogrel Bisulfate 75 MG TABLET PO (08:46)
[2024-06-15] MEDS: metFORMIN HCl 500 MG TABLET PO (08:46)
[2024-06-15] MEDS: Aspirin Enteric Coated 81 MG TABLET.DR PO (08:47)
[2024-06-15] MEDS: FLUoxetine HCl 20 MG CAPSULE PO (08:47)
[2024-06-15] MEDS: Tiotropium Bromide 2.5 mcg 1 PUFF/2.5 MCG MIST.INHAL 2 PUFF INHALE (08:50)
[2024-06-15] MEDS: Fluticasone/Vilanterol 200/25 BLST.W.DEV 1 PUFF INHALE (08:50)
[2024-06-15] MEDS: Fluticasone Propionate Nasal 16 GM SPRAY 1 SPRAY NOSTRIL-B (08:50)
[2024-06-15 08:55] VITALS: BP 142/80; PULSE 79; RESP 18; O2SAT 93
--- NOTE | 2024-06-15 09:00 | PC.NURSE ---
Morning med pass completed and inhaler given per JAN. A&Ox3, VSS--BP done manually as automated giving inacurate readings.
--- NOTE | 2024-06-15 11:05 | PC.NURSE ---
Call placed to [facility] [place] to give verbal Rn to RN report regarding patients transfer. Spoke with RN Ramirez to relay information regarding Pts care here at [facility]. Ramirez with no questions at this time. Pt is on the move to [facility] now.
[2024-06-15 11:10] VITALS: BP 142/80; PULSE 79; RESP 18; TEMP -17.7; TEMP 0; O2SAT 93
== END 2024-06-15 11:12 ==
PROVIDERS: Emergency Provider Emergency Medicine; PCP Internal Medicine
DX: R53.1 Weakness (principal); R42 Dizziness and giddiness; E11.9 Type 2 diabetes mellitus without complications; I11.0 Hypertensive heart disease with heart failure; I50.9 Heart failure, unspecified; E78.5 Hyperlipidemia, unspecified; J44.9 Chronic obstructive pulmonary disease, unspecified; G47.33 Obstructive sleep apnea (adult) (pediatric); Z99.89 Dependence on other enabling machines and devices; Z99.81 Dependence on supplemental oxygen; Z86.73 Personal history of transient ischemic attack (TIA), and cerebral infarction without residual deficits; Z79.899 Other long term (current) drug therapy; Z79.02 Long term (current) use of antithrombotics/antiplatelets; Z79.84 Long term (current) use of oral hypoglycemic drugs; Z79.82 Long term (current) use of aspirin; Z79.4 Long term (current) use of insulin; Z87.891 Personal history of nicotine dependence; Z11.52 Encounter for screening for COVID-19
CPT/HCPCS: 36415; 70450; 70496; 70498; 80048; 80076; 81001; 82947; 83690; 83735; 84484; 85025; 85610; 87086; 87088; 87186; 87635; 93005; 97162; 99285; Q9967

== ENCOUNTER → 2024-06-14 11:26 | Outpatient (BNV) | payer MEDICARE, MEDICAID, SELFPAY | PROVIDERS: Emergency Provider Emergency Medicine; PCP Internal Medicine; Visit Provider Internal Medicine | DX: R94.31 Abnormal electrocardiogram [ECG] [EKG] (principal) | CPT/HCPCS: 93010 ==

== ENCOUNTER 2024-06-24 09:30 | Outpatient (AMB) | payer MEDICARE, MEDICAID, SELFPAY ==
--- NOTE | 2024-06-24 09:33 | MHC.OFFVIS ---
Vital Signs 06/24/24 09:36 Height 4 ft 11 in BP 126/76 Blood Pressure Location Lt brachial Position Sitting Pulse 60 Pulse Source Pulse Oximeter Pulse Oximetry (%) 93 Oxygen Delivery Method Nasal Cannula Oxygen Flow Rate 2 Intake Visit Reasons: Hypoxia Allergies adhesive tape Allergy (Mild, Verified 06/24/24 09:40) Unknown bee pollen [bee stings] Allergy (Mild, Verified 06/24/24 09:40) Swelling oxycodone [OXYCODONE] Allergy (Mild, Verified 06/24/24 09:40) ITCHING, itchy prednisone Allergy (Verified 06/24/24 09:40) Unknown hydromorphone [From DILAUDID] Adverse Reaction (Mild, Verified 06/24/24 09:40) ITCHING HPI HPI Hypoxia: Details: Lilli is a pleasant 78 year old female, former smoker, with 50 pack year history with underlying DMII, COPD, HFpEF, HAYDEE on CPAP, PAD, TIA on plavix/ASA, CAD, and hyperlipidemia. She was referred by [facility] [place] for pulmonary evaluation. Today she is accompanied by daughter Liliana, as well as EMS as she is currently at [place] until Monday. She was admitted for worsening dyspnea 05/16-05/23 due to acute hypoxic respiratory failure secondary to pulmonary edema as well as COPD exacerbation. She was treated with diuretics, steroids, azithromycin and CPT with significant improvement in symptoms. CXR negative, chest CT revealed bibasilar atelectasis. Viral panel negative. Ultimately she was discharged on 2L supplemental oxygen to SNF. She has been using continuous supplemental oxygen. She continues to desaturate to 84-87% with exertion during physical therapy, otherwise oxygen saturation has been >90%. She currently is using 2L of supplemental oxygen with CPAP therapy prescribed by [facility] sleep medicine. [employer] is her DME company but she will be switching to [employer]. She has been using Breo with suboptimal effect and Spiriva was added to regimen during hospital stay. She was previously trialed on Incruse but reported tachycardia so discontinued. She continues to report dry xough, wheezing and chest tightness using DuoNeb with good effect. [facility] Medical History (Updated 06/24/24 @ 09:45 by Olya Bee NP) Stenosis of left subclavian artery Multiple falls Macular degeneration Overactive bladder Chest tightness Abnormal nuclear stress test Cataract HAYDEE on CPAP Mild anemia Hypercholesterolemia Resting tremor Osteoarthritis Unsteady gait Vertigo Sleep apnea Diabetic retinopathy Hiatal hernia Depression COPD (chronic obstructive pulmonary disease) CKD (chronic kidney disease) Orthostatic hypotension NSTEMI (non-ST elevated myocardial infarction) Syncope HLD (hyperlipidemia) CAD (coronary artery disease) High cholesterol Diabetes Heart attack Stroke Surgical History Status post cardiac catheterization History of cataract extraction Hx of colonoscopy Hx of vaginal hysterectomy Stented coronary artery History of cardiac catheterization Family History Father CVD (cardiovascular disease) Mother Brain aneurysm Social History Household Members: Significant Other Housing: Apartment Are you a primary senior care manager to a significant other at home: No Do you presently have visiting nurse or other home services: Yes Unable to assess alcohol history related to: Unknown Alcohol intake: never Patient Tobacco Use Status: Former Tobacco user Tobacco use type: Cigarette Years Smoked: 50 e-Cigarette/Vaping Use: Former Use Second Hand Smoke Exposure: No Advance Directives Date on File: 01/18/23 service: No Current occupational status: retired Physical Exam Vital Signs: Last Vital Signs Pulse 60 06/24/24 09:36 BP 126/76 06/24/24 09:36 Pulse Ox 93 06/24/24 09:36 Oxygen Delivery Method Nasal Cannula 06/24/24 09:36 Oxygen Flow Rate 2 06/24/24 09:36 Results Reviewed Results Reviewed: [address] [address] [address] Scan Report Signed Patient: Lilli Yepez MR#: [id number] : 1945 Acct:[id number] Age/Sex: 78 / F ADM Date: 05/16/24 Loc: HO.ED Attending Dr: Ordering Physician: Evelyn Tran Date of Service: 05/16/24 Procedure(s): CT chest w IV con Accession Number(s): [id number] cc: JET FRAGA MD; Evelyn Tran~ EXAMINATION: CT CHEST, ABDOMEN AND PELVIS WITH CONTRAST CLINICAL INFORMATION: Reason for Exam fall, pain, on thinners COMPARISON: CT abdomen 04/30/2024 CT chest 01/09/2023 TECHNIQUE: Multidetector volumetric imaging was performed from the thoracic inlet through the pubic symphysis following administration of 85 mL of Omnipaque 350. Sagittal and coronal reformatted images were obtained on the technologist's workstation. This CT examination was performed using dose optimization techniques as appropriate, variously including the following: *Automated exposure control *Adjustment of mA and/or kV according to patient size (this includes techniques or standardized protocols for targeted exams where dose is matched to indication/reason for exam; i.e. extremities or head) *Use of iterative reconstruction technique DLP: 900 for the abdomen/pelvis and 566 for the chest (mGy-cm) FINDINGS: CHEST: Lung: The lungs are clear without focal opacity or nodule. Sohx-be-kyoxaxeb emphysematous changes are seen. Bronchial thickening is present. There is bibasilar atelectasis. Significant motion artifact seen degrading detail Mediastinum: The right lobe of the thyroid is larger than the left. Some small thyroid nodules are partially visualized.. Marked atherosclerotic changes are seen in the aorta and its branches. A left subclavian origin stenosis is suspected. There are prominent mediastinal and hilar lymph nodes seen unchanged with the largest mediastinal node measuring 1.3 cm in the right paratracheal region (23:19) and the largest hilar node measuring 1 cm on the right (23:32). No progressive gross hilar or mediastinal lymphadenopathy. Coronary Artery Calcium: Moderate Pericardium/Pleura: No significant effusion. No pleural mass or thickening. Chest Wall/Axilla: Unremarkable ABDOMEN/PELVIS: Peritoneal Space: No significant free air or free fluid identified. Liver, Gallbladder, Biliary Tree: The liver is normal in size, shape, and attenuation. No focal hepatic lesion or biliary ductal dilatation is present. The gallbladder contains innumerable small layering gallstones but is otherwise unremarkable with no evidence of pericholecystic inflammatory changes. Pancreas: Unremarkable Spleen: Unremarkable Adrenal Glands: Unremarkable Kidneys and Ureters: The kidneys are normal in size, shape, and attenuation. No hydronephrosis, hydroureter, or calculi seen. Multiple small bilateral benign Bosniak class I renal cysts are noted which require no additional imaging or follow-up. No solid renal masses are seen. Bilateral nonspecific perinephric stranding. Bladder: Unremarkable Gastrointestinal Tract: The small and large bowel are unremarkable. The appendix is not seen but there is no evidence of appendicitis evidence of appendicitis. Abdominal Wall: No significant hernia is appreciated. Small rounded hyperattenuating areas in the left abdominal wall likely the sequelae of subcutaneous injections. Lymph Nodes: No retroperitoneal lymphadenopathy. Vascular: Calcific atherosclerotic changes are present in the aorta and iliofemoral vessels. There is no evidence of an abdominal aortic aneurysm.. The IVC appears unremarkable. PELVIC VISCERA: The uterus is not seen. An abnormal adnexal mass is not detected. No free intraperitoneal fluid is present. OSSEUS STRUCTURES: Mild degenerative changes are noted in the spine. No bony destructive lesions are seen. No acute fractures are seen CT/CT chest w IV con IMPRESSION: 1. No evidence of a traumatic injury in the chest, abdomen or pelvis. 2. Incidental note made of emphysema, cholelithiasis, hysterectomy and degenerative changes in the spine. Fleischner guidelines were followed. Dictated By: Nick You MD Signed By: <Electronically signed by Nick You MD in [place]> 05/16/24 1617 DD/ 1519 TD/TT: Song Plugger: SS Assessment & Plan Assessment & Plan (1) COPD (chronic obstructive pulmonary disease): Code(s): J44.9 - Chronic obstructive pulmonary disease, unspecified Category: Medical (2) Emphysema of lung: Code(s): J43.9 - Emphysema, unspecified Category: Medical (3) History of acute respiratory failure: Code(s): Z87.09 - Personal history of other diseases of the respiratory system Category: Medical Plan Advised patient to continue to use flutter valve, incentive spirometer and Duoneb BID. Will switch Breo to Dulera to see if she tolerates this better, as she reported issues with DPI. Instructed patient to maintain oxygen saturation to >92%, may need to titrate to 3L of supplemental oxygen with exertion. Patient currently in stretcher, will consider 6MWT at the next visit or when able to ambulate some distance. She notes some ambulation at this time but fatigues easily. Will follow up in 3-4 weeks or sooner if needed. All questions were answered and patient is in agreement of plan. Medications: New albuterol sulfate 90 mcg/actuation 2 puffs inhalation Q4-6H PRN 1 ea 3RF wheezing budesonide-formoterol 160-4.5 mcg/actuation (Symbicort) 2 puffs inhalation Q12H 10.2 grams 3RF Coding Level of Care Code New Pt Level 4 (47237) Diagnoses COPD (chronic obstructive pulmonary disease) J44.9 Emphysema of lung J43.9 History of acute respiratory failure Z87.09
[2024-06-24 09:36] VITALS: BP 126/76; PULSE 60; O2SAT 93
== END 2024-06-24 10:09 | disposition home or self-care (01) ==
PROVIDERS: PCP Internal Medicine; Referring Provider Hospitalist; Visit Provider Nurse Practitioner Family
DX: J44.9 Chronic obstructive pulmonary disease, unspecified (principal); J43.9 Emphysema, unspecified; Z87.09 Personal history of other diseases of the respiratory system
CPT/HCPCS: 99204; 99214

== ENCOUNTER → 2024-06-24 09:30 | Outpatient (BNVA) | payer MEDICARE, MEDICAID, SELFPAY | PROVIDERS: PCP Internal Medicine; Referring Provider Hospitalist; Visit Provider Nurse Practitioner Family | DX: J44.9 Chronic obstructive pulmonary disease, unspecified (principal); J43.9 Emphysema, unspecified; G47.33 Obstructive sleep apnea (adult) (pediatric); Z99.89 Dependence on other enabling machines and devices; Z99.81 Dependence on supplemental oxygen; Z87.891 Personal history of nicotine dependence; Z87.09 Personal history of other diseases of the respiratory system | CPT/HCPCS: 99202 ==

== ENCOUNTER 2024-07-15 09:30 | Outpatient (AMB) | payer MEDICARE, MEDICAID, SELFPAY ==
--- NOTE | 2024-07-15 08:32 | MHC.OFFVIS ---
Vital Signs 07/15/24 09:32 Height 4 ft 11 in Weight 198 lb 6.656 oz BMI 40.1 BP 152/70 H Blood Pressure Location Rt brachial Position Sitting Pulse 69 Pulse Source Pulse Oximeter Pulse Oximetry (%) 95 Oxygen Delivery Method Nasal Cannula Oxygen Flow Rate 2 Intake Visit Reasons: hypoxia Allergies adhesive tape Allergy (Mild, Verified 07/15/24 09:38) Unknown bee pollen [bee stings] Allergy (Mild, Verified 07/15/24 09:38) Swelling oxycodone [OXYCODONE] Allergy (Mild, Verified 07/15/24 09:38) ITCHING, itchy prednisone Allergy (Verified 07/15/24 09:38) Unknown hydromorphone [From DILAUDID] Adverse Reaction (Mild, Verified 07/15/24 09:38) ITCHING HPI HPI hypoxia: Details: Lilli is a pleasant 78 year old female, former smoker, with 50 pack year history with underlying DMII, COPD, HFpEF, HAYDEE on CPAP, PAD, TIA on plavix/ASA, CAD, and hyperlipidemia. She was recently admitted to [facility] for worsening dyspnea 05/16-05/23 due to acute hypoxic respiratory failure secondary to pulmonary edema as well as COPD exacerbation. She was discharged to SNF and is now home. She continues to use supplemental oxygen 2L at rest and 3L with exertion. She reports cough is now dry and intermittent as well as dyspnea with exertion. She denies any wheezing. She has been using Duoneb, flutter valve and incentive spirometer with good effect. She continues to report suboptimal effect with Breo and was recently switched to Advair. Of note, patient currently on CPAP therapy for severe HAYDEE however would like to transfer care to this office. Last sleep study years ago and now on supplemental oxygen. [facility] Medical History (Updated 07/16/24 @ 17:23 by Olya Bee NP) Stenosis of left subclavian artery Multiple falls Macular degeneration Overactive bladder Chest tightness Abnormal nuclear stress test Cataract HYADEE on CPAP Mild anemia Hypercholesterolemia Resting tremor Osteoarthritis Unsteady gait Vertigo Sleep apnea Diabetic retinopathy Hiatal hernia Depression COPD (chronic obstructive pulmonary disease) CKD (chronic kidney disease) Orthostatic hypotension NSTEMI (non-ST elevated myocardial infarction) Syncope HLD (hyperlipidemia) CAD (coronary artery disease) High cholesterol Diabetes Heart attack Stroke Surgical History Status post cardiac catheterization History of cataract extraction Hx of colonoscopy Hx of vaginal hysterectomy Stented coronary artery History of cardiac catheterization Family History Father CVD (cardiovascular disease) Mother Brain aneurysm Social History Household Members: Significant Other Housing: Apartment Are you a primary lawn caretaker to a significant other at home: No Do you presently have visiting nurse or other home services: Yes Unable to assess alcohol history related to: Unknown Alcohol intake: never Patient Tobacco Use Status: Former Tobacco user Tobacco use type: Cigarette Years Smoked: 50 e-Cigarette/Vaping Use: Former Use Second Hand Smoke Exposure: No Advance Directives Date on File: 01/18/23 service: No Current occupational status: retired Review of Systems Const Denies chills, Denies excessive sweating, Denies fever(s), Denies headache(s) and Denies night sweats Eyes Denies dry eyes, Denies irritation and Denies itchy eyes ENT Reports Normal hearing present, Denies headache(s), Denies nasal congestion, Denies nasal discharge, Denies post nasal drip and Denies sore throat Card Denies chest pain, Denies chest pain at rest, Denies chest pain with activity, Denies claudication and Denies paroxysmal nocturnal dyspnea Resp Denies chest congestion, Denies excessive phlegm production, Denies pain on inspiration, Denies pain with cough, Denies stridor and Denies wheezing Musc Denies myalgias Neuro Reports Normal hearing present and Denies headache(s) Endo Denies excessive sweating Fahad/Lymph Denies lymphadenopathy Aller/Immun Denies itchy eyes, Denies seasonal rhinorrhea and Denies wheezing Physical Exam Vital Signs: Last Vital Signs Pulse 69 07/15/24 09:32 BP 152/70 H 07/15/24 09:32 Pulse Ox 95 07/15/24 09:32 Oxygen Delivery Method Nasal Cannula 07/15/24 09:32 Oxygen Flow Rate 2 07/15/24 09:32 BMI result Body Mass Index 40.1 Const General: cooperative, comfortable, no acute distress, well developed and alert Nutritional Appearance: obese Orientation/consciousness: patient oriented x3 HEENT Head: Yes normal to inspection, Yes normocephalic and Yes atraumatic Ears: hearing grossly normal bilaterally and external ears normal Eyes General: appearance normal, both eyes and all related structures Eyelids: Yes eyelids normal Sclerae: sclerae normal EOM: EOMs intact bilaterally Neck Neck: Yes normal visual inspection and Yes no lymphadenopathy Lymphatic: no lymphadenopathy noted Chest Chest palpation & inspection: normal inspection of the chest Resp Effort & Inspection: normal respiratory effort, able to speak in complete sentences, no audible wheezes, no cough, no stridor, not tachypneic, no tripod positioning and no use of accessory muscles Auscultation: diminished lung sounds Cardio Jugular venous distension: no JVD Rate: regular rate Rhythm: regular rhythm Skin Other: warm, dry General skin exam: no rashes or lesions noted Neuro General: patient oriented x3 Cranial nerves: Yes Normal hearing present Cognition (Neuro): normal cognition Gait exam (Neuro): Assisted gait required Extrem Other: trace BLE edema Psych Appearance: grossly normal and well kempt Speech and movement: Normal speech and movement present and Clear speech present Affect: normal affect Attitude: cooperative Thought process: Normal thought process present Thought content: Normal thought content present Insight: Good insight present (Psych) Judgement: Good judgement present (Psych) Assessment & Plan Assessment & Plan (1) COPD (chronic obstructive pulmonary disease): Code(s): J44.9 - Chronic obstructive pulmonary disease, unspecified Category: Medical (2) Emphysema of lung: Code(s): J43.9 - Emphysema, unspecified Category: Medical (3) History of acute respiratory failure: Code(s): Z87.09 - Personal history of other diseases of the respiratory system Category: Medical Plan Advised patient to continue to use flutter valve, incentive spirometer and Duoneb BID. Patient recently obtained Advair, advised to continue to use and will reevaluate effectiveness at the next visit. Patient currently doing PT at home, unable to walk long distances at this time. Will attempt PFT and 6MWT in the future. She is requesting to transfer CPAP therapy management to this office. Since patient has not had sleep study in quiet some time and now requires supplemental oxygen. Will send for sleep titration study to ensure optimal pressures. Will follow up to review results or sooner if needed. All questions were answered and patient is in agreement of plan. Orders: Orders RT PSG in-lab sleep titration Today G47.33 - Obstructive sleep apnea (adult) (pediatric), J96.01 - Acute respiratory failure with hypoxia Coding Level of Care Code Est Pt Level 4 (07125) Diagnoses COPD (chronic obstructive pulmonary disease) J44.9 Emphysema of lung J43.9 History of acute respiratory failure Z87.09
[2024-07-15 09:32] VITALS: BP 152/70; PULSE 69; O2SAT 95; BMI 40.1
== END 2024-07-15 10:24 | disposition home or self-care (01) ==
PROVIDERS: PCP Internal Medicine; Visit Provider Nurse Practitioner Family
DX: J44.9 Chronic obstructive pulmonary disease, unspecified (principal); J43.9 Emphysema, unspecified; Z87.09 Personal history of other diseases of the respiratory system
CPT/HCPCS: 99214

== ENCOUNTER → 2024-07-15 09:30 | Outpatient (BNVA) | payer MEDICARE, MEDICAID, SELFPAY | PROVIDERS: PCP Internal Medicine; Visit Provider Nurse Practitioner Family | DX: J44.9 Chronic obstructive pulmonary disease, unspecified (principal); J43.9 Emphysema, unspecified; Z87.09 Personal history of other diseases of the respiratory system | CPT/HCPCS: 99212 ==

== ENCOUNTER → 2024-08-02 19:30 | Outpatient (REF) | payer MEDICARE, MEDICAID, SELFPAY | LOC: HO.SL 19:30 | PROVIDERS: PCP Internal Medicine; Visit Provider Nurse Practitioner Family | DX: G47.33 Obstructive sleep apnea (adult) (pediatric) (principal); J96.01 Acute respiratory failure with hypoxia | CPT/HCPCS: 95811 ==

== ENCOUNTER → 2024-08-02 23:26 | Outpatient (BNV) | payer MEDICARE, MEDICAID, SELFPAY | PROVIDERS: PCP Internal Medicine; Visit Provider Psychiatry & Neurology Neurology | DX: G47.61 Periodic limb movement disorder (principal) | CPT/HCPCS: 95811 ==

== ENCOUNTER 2024-09-30 13:11 | Outpatient (AMB) | payer MEDICARE, MEDICAID, SELFPAY ==
--- NOTE | 2024-09-30 13:04 | A.OFFVIS_ITS ---
Vital Signs 09/30/24 13:16 Height 4 ft 11 in Weight 203 lb 14.841 oz BMI 41.2 BP 148/62 H Blood Pressure Location Lt brachial Position Sitting Pulse 67 Pulse Source Pulse Oximeter Pulse Oximetry (%) 90 L Oxygen Delivery Method Nasal Cannula Oxygen Flow Rate 2 Intake Visit Reasons: sleep study results Allergies adhesive tape Allergy (Mild, Verified 09/30/24 13:23) Unknown bee pollen [bee stings] Allergy (Mild, Verified 09/30/24 13:23) Swelling oxycodone [OXYCODONE] Allergy (Mild, Verified 09/30/24 13:23) ITCHING, itchy prednisone Allergy (Verified 09/30/24 13:23) Unknown hydromorphone [From DILAUDID] Adverse Reaction (Mild, Verified 09/30/24 13:23) ITCHING HPI HPI sleep study results: Details: Lilli is a pleasant 78 year old female, former smoker, with 50 pack year history with underlying DMII, COPD, HFpEF, HAYDEE on CPAP, PAD, TIA on plavix/ASA, CAD, and h/o acute hypoxic respiratory failure secondary to pulmonary edema as well as COPD exacerbation 04/2024. She continues to use supplemental oxygen 2L at rest and 3L with exertion, 1L NOC. She has been moderately controlled on Advair, reporting intermittent dry cough and dyspnea with exertion. She denies any wheezing. She is currently on CPAP therapy for severe HAYDEE and presents today to review sleep study results. She denies any visits to urgent care or hospitalizations related to respiratory distress since the last visit. COUNT INCLUDES [facility] Medical History (Updated 11/05/24 @ 12:58 by Olya Bee NP) Stenosis of left subclavian artery Multiple falls Macular degeneration Overactive bladder Chest tightness Abnormal nuclear stress test Cataract HAYDEE on CPAP Mild anemia Hypercholesterolemia Resting tremor Osteoarthritis Unsteady gait Vertigo Sleep apnea Diabetic retinopathy Hiatal hernia Depression COPD (chronic obstructive pulmonary disease) CKD (chronic kidney disease) Orthostatic hypotension NSTEMI (non-ST elevated myocardial infarction) Syncope HLD (hyperlipidemia) CAD (coronary artery disease) High cholesterol Diabetes Heart attack Stroke Surgical History Status post cardiac catheterization History of cataract extraction Hx of colonoscopy Hx of vaginal hysterectomy Stented coronary artery History of cardiac catheterization Family History Father CVD (cardiovascular disease) Mother Brain aneurysm Social History Household Members: Significant Other Housing: Apartment Are you a primary weekend caregiver to a significant other at home: No Do you presently have visiting nurse or other home services: Yes Unable to assess alcohol history related to: Unknown Alcohol intake: never Patient Tobacco Use Status: Former Tobacco user Tobacco use type: Cigarette Years Smoked: 50 e-Cigarette/Vaping Use: Former Use Second Hand Smoke Exposure: No Advance Directives Date on File: 01/18/23 service: No Current occupational status: retired Review of Systems Const Denies chills, Denies excessive sweating, Denies fever(s), Denies headache(s) and Denies night sweats Eyes Denies dry eyes, Denies irritation and Denies itchy eyes ENT Reports Normal hearing present, Denies headache(s), Denies nasal congestion, Denies nasal discharge, Denies post nasal drip and Denies sore throat Card Denies chest pain, Denies chest pain at rest, Denies chest pain with activity, Denies claudication and Denies paroxysmal nocturnal dyspnea Resp Denies chest congestion, Denies excessive phlegm production, Denies pain on inspiration, Denies pain with cough, Denies stridor and Denies wheezing Musc Denies myalgias Neuro Reports Normal hearing present and Denies headache(s) Endo Denies excessive sweating Fahad/Lymph Denies lymphadenopathy Aller/Immun Denies itchy eyes, Denies seasonal rhinorrhea and Denies wheezing Physical Exam Vital Signs: Last Vital Signs Pulse 67 09/30/24 13:16 BP 148/62 H 09/30/24 13:16 Pulse Ox 90 L 09/30/24 13:16 Oxygen Delivery Method Nasal Cannula 09/30/24 13:16 Oxygen Flow Rate 2 09/30/24 13:16 BMI result Body Mass Index 41.2 Const General: cooperative, comfortable, no acute distress, well developed and alert Nutritional Appearance: obese Orientation/consciousness: patient oriented x3 HEENT Head: Yes normal to inspection, Yes normocephalic and Yes atraumatic Ears: hearing grossly normal bilaterally and external ears normal Eyes General: appearance normal, both eyes and all related structures Eyelids: Yes eyelids normal Sclerae: sclerae normal EOM: EOMs intact bilaterally Neck Neck: Yes normal visual inspection and Yes no lymphadenopathy Lymphatic: no lymphadenopathy noted Chest Chest palpation & inspection: normal inspection of the chest Resp Effort & Inspection: normal respiratory effort, able to speak in complete sentences, no audible wheezes, no cough, no stridor, not tachypneic, no tripod positioning and no use of accessory muscles Auscultation: diminished lung sounds Cardio Jugular venous distension: no JVD Rate: regular rate Rhythm: regular rhythm Skin Other: warm, dry General skin exam: no rashes or lesions noted Neuro General: patient oriented x3 Cranial nerves: Yes Normal hearing present Cognition (Neuro): normal cognition Gait exam (Neuro): Assisted gait required Extrem Other: trace BLE edema Psych Appearance: grossly normal and well kempt Speech and movement: Normal speech and movement present and Clear speech present Affect: normal affect Attitude: cooperative Thought process: Normal thought process present Thought content: Normal thought content present Insight: Good insight present (Psych) Judgement: Good judgement present (Psych) Assessment & Plan Assessment & Plan (1) COPD (chronic obstructive pulmonary disease): Code(s): J44.9 - Chronic obstructive pulmonary disease, unspecified Category: Medical (2) Emphysema of lung: Code(s): J43.9 - Emphysema, unspecified Category: Medical (3) History of acute respiratory failure: Code(s): Z87.09 - Personal history of other diseases of the respiratory system Category: Medical (4) Pulmonary nodule: Code(s): R91.1 - Solitary pulmonary nodule Category: Medical Plan Will add Spiriva to regimen. At the last visit, she requested to transfer CPAP therapy management to this office. Her sleep study revealed 50 % sleep efficiency, recently started on Vitamin B12 and Vitamin D for PLMD, which has been affecting sleep efficiency. Sleep study was negative for HAYDEE, however did have nocturnal hypoxemia, resolved with 1L of supplemental ocygen. Will send for overnight to ensure 1L corrects nocturnal hypoxemia. Repeat chest CT scheduled for April 2025. All questions were answered and patient is in agreement of plan. Will follow up in 3 months or sooner if needed. Medications: New tiotropium bromide 2.5 mcg/actuation (Spiriva Respimat) 2 puffs inhalation DAILY 4 grams 3RF inhalational spacing device (Aerochamber Plus Z Stat spacer) As directed 50 ea 0RF Coding Level of Care Code Est Pt Level 4 (65099) Diagnoses COPD (chronic obstructive pulmonary disease) J44.9 Emphysema of lung J43.9 History of acute respiratory failure Z87.09 Pulmonary nodule R91.1
[2024-09-30 13:16] VITALS: BP 148/62; PULSE 67; O2SAT 90; BMI 41.2
== END 2024-09-30 14:04 | disposition home or self-care (01) ==
PROVIDERS: PCP Internal Medicine; Visit Provider Nurse Practitioner Family
DX: J44.9 Chronic obstructive pulmonary disease, unspecified (principal); J43.9 Emphysema, unspecified; Z87.09 Personal history of other diseases of the respiratory system; R91.1 Solitary pulmonary nodule
CPT/HCPCS: 99214

== ENCOUNTER → 2024-09-30 13:11 | Outpatient (BNVA) | payer MEDICARE, MEDICAID, SELFPAY | PROVIDERS: PCP Internal Medicine; Visit Provider Nurse Practitioner Family | DX: J43.9 Emphysema, unspecified (principal); R91.1 Solitary pulmonary nodule; Z71.2 Person consulting for explanation of examination or test findings; Z87.09 Personal history of other diseases of the respiratory system; Z79.899 Other long term (current) drug therapy; Z87.891 Personal history of nicotine dependence; Z99.89 Dependence on other enabling machines and devices; Z86.73 Personal history of transient ischemic attack (TIA), and cerebral infarction without residual deficits; Z79.01 Long term (current) use of anticoagulants; Z99.81 Dependence on supplemental oxygen | CPT/HCPCS: 99212 ==

== ENCOUNTER 2025-02-17 15:15 | Outpatient (AMB) | payer MEDICARE, SELFPAY ==
[2025-02-17 15:19] VITALS: BP 138/78; PULSE 80; O2SAT 96; BMI 40.5
--- NOTE | 2025-02-17 15:19 | MHC.OFFVIS ---
Vital Signs 02/17/25 15:19 Height 4 ft 11 in Weight 200 lb 9.93 oz BMI 40.5 BP 138/78 Blood Pressure Location Rt brachial Position Sitting Pulse 80 Pulse Oximetry (%) 96 Oxygen Delivery Method Room Air Intake Visit Reasons: COPD Contract Negotiation Specialist Required: No Substation Engineer: Substation Engineer offered & declined Accompanied by: Spouse Allergies adhesive tape Allergy (Mild, Verified 02/17/25 15:24) Unknown bee pollen [bee stings] Allergy (Mild, Verified 02/17/25 15:24) Swelling oxycodone [OXYCODONE] Allergy (Mild, Verified 02/17/25 15:24) ITCHING, itchy prednisone Allergy (Verified 02/17/25 15:24) Unknown hydromorphone [From DILAUDID] Adverse Reaction (Mild, Verified 02/17/25 15:24) ITCHING Medication List - Last Reconciled 02/17/25 by Johana Griffin LPN albuterol sulfate 90 mcg/actuation 2 puffs inhalation Q4-6H PRN aspirin 81 mg PO DAILY atorvastatin 80 mg PO BEDTIME clopidogrel 75 mg PO DAILY docusate sodium (Colace) 100 mg PO BID PRN ezetimibe 10 mg PO BEDTIME fluoxetine 20 mg PO DAILY fluticasone propion-salmeterol 230-21 mcg/actuation (Advair HFA) 2 puffs inhalation Q12H fluticasone propionate 50 mcg/actuation 1 spray intranasal DAILY inhalational spacing device (Aerochamber Plus Z Stat spacer) As directed insulin glargine (Basaglar KwikPen U-100 Insulin) 60 units subcut BEDTIME insulin lispro 1 sliding scale dose subcut USEASDIRECTD ipratropium-albuterol 0.5 mg-3 mg(2.5 mg base)/3 mL 3 mL inhalation BID losartan 100 mg PO ONCE metformin 500 mg PO BIDWM metoprolol tartrate 37.5 mg PO BID oxybutynin chloride 5 mg PO BEDTIME ropinirole 0.5 mg PO BEDTIME tiotropium bromide 2.5 mcg/actuation (Spiriva Respimat) 2 puffs inhalation DAILY vit C,C-Il-iafyi-lutein-zeaxan 250-90-40-1 mg (PreserVision AREDS-2) 1 tab PO BID HPI HPI COPD: Details: Lilli is a pleasant 79 year old female, former smoker, with 50 pack year history with underlying DMII, COPD, HFpEF, HAYDEE on CPAP, PAD, TIA on plavix/ASA, CAD, and h/o acute hypoxic respiratory failure secondary to pulmonary edema as well as COPD exacerbation 04/2024. She continues to use supplemental oxygen 2L at rest and 3L with exertion, 2L NOC. She has been moderately controlled on Advair, however only using once daily in addition to Spiriva and DuoNeb BID. She continues to report iintermittent dry cough and dyspnea with exertion with occasional wheezing. She denies any benefits with Spiriva at this time. She is currently on CPAP therapy for severe HAYDEE, however prior sleep study negative for HAYDEE. She states PCP is sending her to [facility] for further evaluation. She denies any visits to urgent care or hospitalizations related to respiratory distress since the last visit. [facility] Medical History (Updated 11/05/24 @ 12:58 by Olya Bee NP) Stenosis of left subclavian artery Multiple falls Macular degeneration Overactive bladder Chest tightness Abnormal nuclear stress test Cataract HAYDEE on CPAP Mild anemia Hypercholesterolemia Resting tremor Osteoarthritis Unsteady gait Vertigo Sleep apnea Diabetic retinopathy Hiatal hernia Depression COPD (chronic obstructive pulmonary disease) CKD (chronic kidney disease) Orthostatic hypotension NSTEMI (non-ST elevated myocardial infarction) Syncope HLD (hyperlipidemia) CAD (coronary artery disease) High cholesterol Diabetes Heart attack Stroke Surgical History Status post cardiac catheterization History of cataract extraction Hx of colonoscopy Hx of vaginal hysterectomy Stented coronary artery History of cardiac catheterization Family History Father CVD (cardiovascular disease) Mother Brain aneurysm Social History Household Members: Significant Other Housing: Apartment Are you a primary senior caregiver to a significant other at home: No Do you presently have visiting nurse or other home services: Yes Unable to assess alcohol history related to: Unknown Alcohol intake: never Patient Tobacco Use Status: Former Tobacco user Tobacco use type: Cigarette Years Smoked: 50 e-Cigarette/Vaping Use: Former Use Second Hand Smoke Exposure: No Advance Directives Date on File: 01/18/23 service: No Current occupational status: retired Review of Systems Const Denies chills, Denies excessive sweating, Denies fever(s), Denies headache(s) and Denies night sweats Eyes Denies dry eyes, Denies irritation and Denies itchy eyes ENT Reports Normal hearing present, Denies headache(s), Denies nasal congestion, Denies nasal discharge, Denies post nasal drip and Denies sore throat Card Denies chest pain, Denies chest pain at rest, Denies chest pain with activity, Denies claudication, Reports dyspnea on exertion and Denies paroxysmal nocturnal dyspnea Resp Denies change in phlegm color, Denies chest congestion, Reports cough, Denies hemoptysis, Denies excessive phlegm production, Denies pain on inspiration, Denies pain with cough, Reports dyspnea on exertion, Denies stridor and Reports wheezing Musc Denies myalgias Neuro Reports Normal hearing present and Denies headache(s) Endo Denies excessive sweating Fahad/Lymph Denies lymphadenopathy Aller/Immun Denies itchy eyes, Denies seasonal rhinorrhea and Reports wheezing Physical Exam Vital Signs: Last Vital Signs Pulse 80 02/17/25 15:19 BP 138/78 02/17/25 15:19 Pulse Ox 96 02/17/25 15:19 Oxygen Delivery Method Room Air 02/17/25 15:19 BMI result Body Mass Index 40.5 Const General: cooperative, comfortable, no acute distress, well developed and alert Nutritional Appearance: obese Orientation/consciousness: patient oriented x3 HEENT Head: Yes normal to inspection, Yes normocephalic and Yes atraumatic Ears: hearing grossly normal bilaterally and external ears normal Eyes General: appearance normal, both eyes and all related structures Eyelids: Yes eyelids normal Sclerae: sclerae normal EOM: EOMs intact bilaterally Neck Neck: Yes normal visual inspection and Yes no lymphadenopathy Lymphatic: no lymphadenopathy noted Chest Chest palpation & inspection: normal inspection of the chest Resp Effort & Inspection: normal respiratory effort, able to speak in complete sentences, no audible wheezes, no cough, no stridor, not tachypneic, no tripod positioning and no use of accessory muscles Auscultation: diminished lung sounds Cardio Jugular venous distension: no JVD Rate: regular rate Rhythm: regular rhythm Skin Other: warm, dry General skin exam: no rashes or lesions noted Neuro General: patient oriented x3 Cranial nerves: Yes Normal hearing present Cognition (Neuro): normal cognition Gait exam (Neuro): Assisted gait required Extrem Other: trace BLE edema Psych Appearance: grossly normal and well kempt Speech and movement: Normal speech and movement present and Clear speech present Affect: normal affect Attitude: cooperative Thought process: Normal thought process present Thought content: Normal thought content present Insight: Good insight present (Psych) Judgement: Good judgement present (Psych) Assessment & Plan Assessment & Plan (1) COPD (chronic obstructive pulmonary disease): Code(s): J44.9 - Chronic obstructive pulmonary disease, unspecified Category: Medical (2) Emphysema of lung: Code(s): J43.9 - Emphysema, unspecified Category: Medical (3) History of acute respiratory failure: Code(s): Z87.09 - Personal history of other diseases of the respiratory system Category: Medical (4) Pulmonary nodule: Code(s): R91.1 - Solitary pulmonary nodule Category: Medical Plan Encouraged Lilli to use Advair BID in addition to current regimen. Reviewed overnight oximetry and 1L was not sufficient, continuing with 28 minutes of hypoxia, advised to continue to use 2L supplemental oxygen at [facility]. Repeat chest CT scheduled for April 2025 given smoking history, prior CT revealed mild to moderate emphysematous changes without concerning nodules. All questions were answered and patient is in agreement of plan. Will follow up to review results of CT or sooner if needed. Coding Level of Care Code Est Pt Level 4 (38600) Diagnoses COPD (chronic obstructive pulmonary disease) J44.9 Emphysema of lung J43.9 History of acute respiratory failure Z87.09 Pulmonary nodule R91.1
--- OUTSIDE RECORDS SUMMARY | 2025-02-17 17:14 | XMS_ITS | Continuity of Care Document ---
Author Organization [facility] Address 1 [facility] [address] [place] [address] Phone Care Team Providers Care Felled Seam Operator Name Role Phone Beverly Steinberg NP Unavailable Unavailable Allergies, Adverse Reactions, Alerts Substance Reaction Status Criticality ADHESIVE BANDAGE Active No Informat ion OXYCODONE HCL Active No Information acetaminophen Active No Information WARNIN allergy(ies) could not be collected because the type is not supported. Please contact the source practice for further details. Medications Medication Instructions Dosage Effective Dates (start - stop) Status Comments Advair HFA 230 mcg-21 mcg/actuation aerosol inhaler inhale 2 puff by inhalation route 2 times every day in the morning and evening 2.00 puff - Active aspirin 81 mg ORAL TABLET take one tablet by mouth daily - Active clopidogrel 75 mg tablet take 1 tablet by oral route every day 75 MG - Active ezetimibe 10 mg tablet take 1 tablet by oral route every day at bedtime - Active fluoxetine 20 mg capsule take 1 capsule by oral route every day in the morning 20 MG - Active FreeStyle Kalli [address] to the back of your arm in the fatty tissue and change every 14 days alternating arms - Active losartan 100 mg tablet take 1 tablet by oral route every day 100 MG - Active metformin 500 mg tablet take 1 tablet by oral route 2 times every day with morning and evening meals 500 MG - Active metoprolol tartrate 25 mg tablet take 1.5 tablet (37.5 mg) by oral route 2 times every day - Active omeprazole 20 mg capsule,delayed release take 1 capsule by oral route every day 30 minutes to 1 hour before a meal - Active oxybutynin chloride ER 5 mg tablet,extended release 24 hr take 1 tablet by oral route every day at bedtime - Active ropinirole 0.5 mg tablet take 1 tablet by oral route daily at bedtime - Active Oxygen NASAL conserving device to maintain sats above 90% - Active Shingrix (PF) 50 mcg/0.5 mL intramuscular suspension, kit inject 0.5 milliliter by intramuscular route once-then repeat in 2-6 months - Active Spiriva Respimat 2.5 mcg/actuation solution for inhalation inhale 2 puff by inhalation route every day at the same time each day 5 MCG - Active not able to d o handheld inhaler FreeStyle Kalli 3 [place] use to give insulin - Active broken atorvastatin 20 mg tablet reduced take 1 tablet by oral route every day - Active LDL 29 REDUCED CAN WAIT TIL NEXT FILL Francis Solostar U-100 Insulin 100 unit/mL (3 mL) subcutaneous pen take 40 units sq injection daily at bedtime - Active IPRAT-ALBUT 0.5-3(2.5) MG/3 ML INHALE 1 VIAL (3ML) BY NEBULIZATION ROUTE TWICE A DAY - Active VITAMIN B-12 1,000 MCG TABLET TAKE 1 TABLET BY MOUTH DAILY. - Active Vitamin D3 50 mcg (2,000 unit) tablet INCREASED take one tablet by mouth daily - Active vit d level 27 increased vit d AREDS 2 Vitamins ORAL take one tablet by mouth BID - Active BD AutoShield Duo Pen Needle 30 gauge x 02/02 use to give insulin daily by sq - Active Flonase Allergy Relief 50 mcg/actuation nasal spray,suspension spray 1 spray by intranasal route every day in each nostril as needed - Active albuterol sulfate HFA 90 mcg/actuation aerosol inhaler inhale 2 puff by inhalation route every 4 - 6 hours as needed for sob and wheezing - Active nitroglycerin 0.[address] 1 tablet by sublingual route every 5 minutes as needed for chest pain. Do not exceed 3 doses in 15 minutes. 0.4 MG - Active Senna Lax 8.6 mg tablet take 2 tablet by oral route every day as needed for constipation - Active Advance Directives Directive Yes / No Effective Date File Name No Information Encounters Encounter Description Practice Location Reason(s) For Visit Diagnoses Date Provider [facility], [address] [facility] [address], [place], [place], [id number], [place] tel:[phone] [place] No Information Jan- 5 Idris Hawthornea. [address] [place], [id number] , [place]. [phone] [facility], [address] [facility] [address] [facility], [place], [place], [id number], [place] tel:[phone] [place] No Information Jan- 5 Idris Hawthornea. [address] [place], [id number] , [place]. [phone] [facility], [address], [place], [place], [id number], [place] tel:[phone] [place] HAYDEE on CPAP 0 5 Idris Hawthornea. [address] [place], [id number] , [place]. [phone] [facility], [address], [place], [place], [id number], [place] tel:[phone] [place] Alteration in perfor jodi of activities of daily living Jan-0 4- 5 Uri Guadarrama. [address] [place], [id number] , [place]. tel:[phone] [facility], [address] [facility] [address], [place], [place], [id number], [place] tel:[phone] [place] Encounter for rehabilitation evaluation 5 Uri Chiara. [address] [place], [id number] , [place]. tel:[phone] [facility], [address], [place], [place], [id number], [place] tel:[phone] [place] No Information 5 Steinberg Beverly. [address] [place], [id number] , [place]. tel:[phone] [facility], [address], [place], [place], [id number], [place] tel:[phone] [place] No Information 5 Steinberg Beverly. [address] [place], [id number] , [place]. tel:[phone] [facility], [address] [facility] [address], [place], [place], [id number], [place] tel:[phone] [place] No Information 4 Steinberg Beverly. [address] [place], [id number] , [place]. tel:[phone] [facility], [address], [place], [place], [id number], [place] tel:[phone] [place] Follow-up (chief complaint) Type 2 diabetes mellitus with hypoglycemia without coma, unspecified whether terminal supervisor insulin useLong term (current) use of insulinLong term (current) use of oral hypoglycemic drugsVitamin D deficiencyHypercholestere ondina 4 Steinberg Beverly. [address] [place], [id number] , [place]. tel:[phone] [facility], [address], [place], [place], [id number], [place] tel:[phone] [place] Encounter for rehabilitation evaluation 4 Urielian Guadarrama. [address], Laci hdezJAGJIT, [id number] , [place]. tel: [phone] [facility], [address], [place], [place], [id number], [place] tel:[phone] [place] No Information 4 Idris Paul. [address] Unrulyreji Laci hdezJAGJIT, [id number] , [place]. tel:[phone] [facility], [address], [place], [place], [id number], [place] tel:[phone] [place] Muscle weakness (generalized) 4 Ondina Bautista. [address] Clementina Laci hdezJAGJIT, [id number] , [place]. tel:[phone] [facility], [address], [place], [place], [id number], [place] tel:[phone] [place] No Information 4 Idris Paul. [address] Unrulyreji Laci hdezJAGJIT, [id number] , [place]. tel:[phone] [facility], [address], [place], [place], [id number], [place] tel:[phone] [place] Muscle weakness (generalized) 4 Ondina Bautista. [address] Clementina Laci hdezJAGJIT, [id number] , [place]. tel:[phone] [facility], [address], [place], [place], [id number], [place] tel:[phone] [place] Muscle weakness (generalized)Difficulty in walking, not elsewhere classified 4 Ondina Bautista. [address] Clementina Laci hdezJAGJIT, [id number] , [place]. tel:[phone] [facility], [address], [place], [place], [id number], [place] tel:[phone] [place] Muscle weakness (generalized) 4 Ondina Bautista. [address] [place], [id number] , [place]. tel:[phone] [facility], [address], [place], [place], [id number], [place] tel:[phone] [place] No Information 4 Idris Paul. [address] [place], [id number] , [place]. tel:[phone] [facility], [address] [facility] [address], [place], [place], [id number], [place] tel:[phone] [place] PEE FUV #1 (chief complaint) HAYDEE on CPAPRestless leg syndromeHypercholesteremi aChronic obstructive pulmonary disease, unspecified COPD type 4 Idris Paul. [address] [place], [id number] , [place]. tel:[phone] [facility], [address] [facility] [address], [place], [place], [id number], [place] tel:[phone] [place] Follow-up (chief complaint) Muscle weakness (generalized) 4 Ondina Bautista. [address] [place], [id number] , [place]. tel:[phone] [facility], [address] [facility] [address], [place], [place], [id number], [place] tel:[phone] [place] Encounter for rehabilitation evaluation 4 Ondina Bautista. [address] [place], [id number] , [place]. tel:[phone] [facility], [address], [place], [place], [id number], [place] tel:[phone] [place] Muscle weakness (generalized) 4 Ondina Bautista. [address] [place], [id number] , [place]. tel:[phone] [facility], [address], [place], [place], [id number], [place] tel:[phone] [place] Muscle weakness (generalized) 0 4 Ondina Bautista. [address] [place], [id number] , [place]. tel:[phone] [facility], [address], [place], [place], [id number], [place] tel:[phone] [place] No Information Oct- 0 4 Idris Paul. [address] [place], [id number] , [place]. tel:[phone] [facility], [address], [place], [place], [id number], [place] tel:[phone] [place] Muscle weakness (generalized) 4 Ondina Bautista. [address] [place], [id number] , [place]. tel:[phone] [facility], [address], [place], [place], [id number], [place] tel:[phone] [place] Muscle weakness (generalized) 4 Ondina Bautista. [address] [place], [id number] , [place]. tel:[phone] [facility], [address], [place], [place], [id number], [place] tel:[phone] [place] Muscle weakness (generalized)Difficulty in walking, not elsewhere classified 4 Ondina Bautista. [address] [place], [id number] , [place]. tel:[phone] [facility], [address], [place], [place], [id number], [place] tel:[phone] [place] Muscle weakness (generalized) 4 Ondina Bautista. [address] [place], [id number] , [place]. tel:[phone] [facility], [address] [facility] [address] [facility], [place], [place], [id number], [place] tel:[phone] [place] Encounter for rehabilitation evaluation 4 Uri Guadarrama. [address] [place], [id number] , [place]. tel:[phone] [facility], [address] [facility] [address], [place], [place], [id number], [place] tel:[phone] [place] Encounter for rehabilitation evaluation 4 Ondina Bautista. [address] [place], [id number] , [place]. tel:[phone] [facility], [address] [facility] [address] [facility], [place], [place], [id number], [place] tel:[phone] [place] Encounter for nutrit ional assessmentClass 2 severe obesity with serious comorbidity and body mass index (BMI) of 39.0 to 39.9 in adult, unspecified obesity typeMorbid (severe) obesity due to excess caloriesBody mass index [BMI] 39.0-39.9, adult 4 Normile Tricia. [address] [place], [id number] , [place]. tel:[phone] [facility], [address] [facility] [address] [facility], [place], [place], [id number], [place] tel:[phone] [place] No Information 4 Steinberg Beverly. [address] [place], [id number] , [place]. tel:[phone] [facility], [address] [facility] [facility], [place], [place], [id number], [place] tel:[phone] [place] Post Enrollment Evaluation (chief complaint) Recurrent major depressive disorder, in partial remissionAtherosclerosis of napaimute coronary artery of napaimute heart without angina pectorisOld myocardial infarctionStenosis of left subclavian arteryHypercholesteremiaT ype 2 diabetes mellitus with diabetic chronic kidney disease, unspecified CKD stage, unspecified whether terminal supervisor insulin useStage 3 chronic kidney disease, unspecified whether stage 3a or 3b CKDLong term (current) use of insulinThyroid noduleBody mass index [BMI] 39.0-39.9, adultSevere obesity (BMI 35.0-39.9) with comorbidityExudative age-related macular degeneration, unspecified laterality, unspecified stageNonexudative age-related macular degeneration, unspecified laterality, unspecified stageGastroesophageal reflux disease without esophagitisDiverticulosis of colonHepatic steatosisCholelithiasis without cholecystitisUmbilical hernia without obstruction and without gangreneHypertensive heart and kidney disease with chronic diastolic congestive heart failure and stage 3 chronic kidney disease, unspecified whether stage 3a or 3b CKDChronic diastolic (congestive) heart failureOAB (overactive bladder)History of hysterectomyHistory of CVA (cerebrovascular accident)Essential tremorRestless leg syndromeOSA on CPAPChronic obstructive pulmonary disease, unspecified COPD typeLung nodulesHealthcare maintenanceLong term (current) use of oral hypoglycemic drugs 4 Idris Paul. [address] [place], [id number] , [place]. tel:[phone] [facility], [address] [address], [place], [place], [id number], [place] tel:[phone] [place] No Information 4 Idris Paul. [address] [place], [id number] , [place]. tel:[phone] Family History Family Member Type Diagnosis Age At Onset No Information Immunizations Vaccine Date Status Comments Zoster recombinant subunit administered S ource: New Immunization Record Prevnar administered Source: New Imm unization Record Fluzone High Dose administered So urce: New Immunization Record Tdap administered Source: Other R egistry Flu-IIV3 administered Source: Other R egistry Flu-IIV3 administered Source: Other R egistry COVID-19 Pfizer unknown Source: Othe r Registry COVID-19 Pfizer unknown Source: Othe r Registry COVID-19 Pfizer unknown Source: Othe r Registry Flu-IIV3 administered Source: Other R egistry Flu-IIV3, p-free High Dose administered S ource: Other Registry ZVL (Zostavax) administered Source: Other Registry Flu-IIV3, p-free High Dose administered S ource: Other Registry Td-preservative free administered Source: Other Registry Payers Payer name Insurance type Covered alliance party ID Authorvidyaa demetri(s) Your Policy Manager 16 [id number] Your Policy Manager 16 [id number] Your Policy Manager 16 [id number] Your Policy Manager 16 [id number] Social History Type Description Quantity Date Captured Comments Sex Female Smoking Status No Information Chief Complaint And Reason For Visit No Information Plan Of Treatment Date Type Action Status Referral Ordered: dr solis -Ophthalmology (related to Age-related nuclear cataract, bilateral) ordered Referral Referred To: [facility] Ordered: Referrals: Dentistry. [facility]. Consult Appointment date/timeframe: 12/03/2024 ordered Referral Referred To: [facility] Ordered: Referrals: Retina Specialist. [facility]. Follow-up and treat Appointment date/timeframe: 10/03/2024 ordered Referral Referred To: dr. ngo Ordered: Referrals: Cardiology. dr. ngo. Follow-up and treat Appointment date/timeframe: 11/14/2024 ordered Referral Referred To: dr. bacon Ordered: Referrals: Pulmonology. dr. bacon. Follow-up and treat Appointment date/timeframe: 09/20/2024 ordered Referral Referred To: dr solis Ordered: Referrals: Ophthalmology. dr solis. Consult ordered Appointment Lilli Eldridge BOOKED Appointment Lilli Eldridge BOOKED Future Order: Radiology Order Po lysomnography, 4+ add'l params w/CPAP (02110), Ordered on: Ordered History Of Present Illness Encounter Date Complaint History Of Prese nt Illness Follow-up Today jacqui preshector tobin for pee follow up with daughter. NO real complaints but pharmacy is sending meds at different times and ropinerol in different packs will have nursing call pharmacy and see if we can get that straightened out. She reports low sugars overnight at times. She has lost weight on purpose, eating more salads and walking more. We discussed her ldl was too tightly controlled I had already reduced will check today. Discussed going up on vit d as vit d was low will check today. Denies dizziness, headache, vision changes, worsening sob, chest pain, weakness or falls. Denies n/t to hands or feetROSsee abovePENAD axox3 but forgetfulperrlmae=stronglscta bilaterally on 2lpm ncheart rate reg +s1 and +s2mild LE edema, +pp, 08/29 microfilamentcalm and cooperative PEE FUV #1 Ppt presented to the office with her daughter who helps with hx. Ppt reports she had her sleep study yesterday as planned per her visual education director to look at her oxygen needs. However the study was supposed to be done with her cpap as she has been using that for many years but was used without and less o2 on 1 lnc. PPt never got in rem sleep so not accurate. Ppt and daughter are frustrated feels like a futile test. She had a lot of restless legs that she is on vit d, vit b12 and ropinirole. At this point pulm is going to just do a overnight oximetry to see if can come down on oxygen needs. NOt sure another sleep study would be fruitful which family and ppt agrees. Ppt feels like she is not winded as much when walking and has more tolerance as going farther. Denies sob and chest pain at rest. Uses 2 L nc at rest and 3 L nc with exertion. She is working with our PT 2x a week. Pulm added spiriva to advair due to congestion. She got pneumococcal vaccine today. Also ppt got a letter in the male that we will only cover flucanosole for one month reaching out to nena castellanos our pharmacist about this. Marisol abovePENADaxox3, forgetful and daughter fill sin gapsperrllscta bilaterally on 2l NC d8rptpx rate reg +s1 and +s2abd soft, nontender, nondistended, +sgr2tcwx LE edemacalm and cooperative Follow-up Post Enrollment Evaluation Patient was seen today for her PEE in th e office and was accompanied by her daughter who helps with hx. She started with [facility] in 08/2024. Does not attend day program. Currently lives on 3rd floor apt with significant other Jeffery, has an elevator, in [facility]. Information per collective, [facility], ppt, daughter PPt with 4 hospitalizations, 2 SNF stays and 1 fall in the last 6 months [facility] ED June 14, 2024 syncope, slurred speech, unsteady gait found to have left carotid artery occlusion causing hypotension want permissive htn, discharged June 15, 2024 to [facility] iron def anemia, +orthostatic hypotension, uti, and discharged from snf on jun 28, 2024 to [facility] ADMIT 05/16/2024 fall, weakness, copd exacerbation, acute resp failure with hypoxia, hadyee discharged to [facility] May 23, 2024 and discharged from [facility] on June 11, 2024 to [facility] 04/29/2024 ED general weakness, n/v admitted on 04/30 acute kidney failure, n/v, slurred speech, leukocytosis, slurred speech found to have acute viral gastritis, Pt was dx with acute gastritis, globus sensation on ppi., Pt also had 2 episodes of facial drooping while at the hospital tia, Pt was evaluated by neuro and had imaging done, Pt was started on plavix and had an EEG done, Pt had incidental findings at [facility] of enlarged thyroid and L breast finding - outpt f/u recommended. Pt was d/c to rehab. discharged May 03, 2024 to [facility] ED 03/30/2024 fall, nasal bone fx discharged home same dayComplaints/concerns: Wondering about dentures-only wears top and 30 years old and cracker will refer to dental, cpap machine wondering about new one and change o2 machine following with pulm, head tremor had for some time no signs of parkinsons does not want work upADLs/services: Transportation is family first but matthias back up. ERS approved, she currently has one through [facility] ([facility]). She is approved for 1 hour of homemaking and 1 hours of home health aide weekly. She is approved to continue with Monserrat Duff and Dr. Bacon for pulmonology. . Socialization/Mental Health: Hx of depression since her mother around 40 years ago. Comes and go with tragic events. She was on sertraline and that was stopped and started on fluoxetine 20 mg daily has been on for some time. Denies depression currently. Reports situational. Does not stay in a rut. She is happy most days and has things to look forward to and do. She has a bf she lives with for last 5 years who takes good care of her. Her family is supportive. Sleeping and eating well. No si. Wants to stay on current drugPodiatry: Followed with dr chan in far past. However recently nurse has been taking care of her nails. PCN will cut today. 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 She will check feet daily. Let us know if any concerns. 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 She has amplifier but doesn't use it. Reports she wouldn't wear hearing aids. Testing and or going to specialist will not change interventions currently. Dental: She only has upper denture, lower jaw is reduced ridge support. She has no problems chewing or swallowing but they are over 30 years old and plate is cracked will send to dental to get a new pair. Only thing she can't eat is applesOphthalmology: She has dry and wet macular per ppt. She is on AREDs. She follows with [facility] which we will continue and wants to switch from Dr. holliday to Dr Crawford for regular care. We will need recordsMammography: Cysts non cancerous and removed and had spot ultrasound fatty tissue both nipples parts removed from drains cysts 09/05/2019FINDINGS: No suspicious masses, suspicious microcalcifications, or areas of architectural distortion are seen in either breast to suggest malignancy. Benign-appearing calcifications are again seen throughout both breasts. A skin mole in the right upper outer breast is noted. IMPRESSION: No mammographic evidence of malignancy. RECOMMENDATION: Annual mammographic screeningReports does not want to continue this currently. Never had breast caColonosocpy: 06/15/15 and does not want further colonoscopiesDexa Scan: 09/12/2023Impression: The patient has normal bone density as determined by WHO criteria. A repeat bone density assessment should be considered in two years.Does not want current follow up. She was getting this just due to getting lung screening as prior smokerMOLST: Reviewed with ppt and daughter. Ppt is own person. She wants functional goals with dnr/dni. Conservative and does not want to live on a machine or be a vegetable Diagnosis, allergies, history and meds reviewed with ppt and daughter AllergiesAdhesive BandageBee Stings (SWELLING AT SITE ONLY)Percocet Medications-ppt and daughter brought in med list which I verified with ppt/daughter, pharmacy and supplyaspirin 81 mg oral tablet dailyatorvastatin 80 mg oral tablet dailyBasaglar KwikPen 100 units/mL subcutaneous solution, 50 units daily---change to lantus worked betterclopidogrel 75 mg oral tablet dailyCPAP Machine, See InstructionsFLUoxetine 20 mg oral capsule dailylosartan 100 mg oral tablet, 1 tablet, By Mouth, DailymetFORMIN 500 mg oral tablet, 500 mg= 1 tablet, By Mouth, 2 times a dayMetoprolol Succinate ER 25 mg oral tablet, extended release, 37.5 mg= 1.5 tablet, By Mouth, 2 times a day, Albuterol ipratropium bromide via neg BIDAlbuterol inhaler as needed advairomeprazole 20 mg oral delayed release tablet dailyoxybutynin 5 mg/24 hours oral tablet, extended release daily at bedtime PEN NEEDLES 30g, 02/02 dailyrOPINIRole 0.5 mg oral tablet daily at bedtime Zetia 10 mg oral tablet daily bedtime Colase 100 mg daily prn for constipation----change to sennaNitroglycerin 0.4 mg tablets prn for chest pain every 5 min no more than 3 call 911PMHCAD s/p CABG x2 pci to rca and cardiac cath left circumflex angioplasty and arthrectomy/arcadio placed to 1st OM and lad stenting 2Benign lung nodulesUmbilical herniaHx of Benign cysts of breastCataracts, bilateralCholelithiasisCKD stage 3 (chronic kidney disease)Hx of Closed fracture of left proximal humerusCOPD (chronic obstructive pulmonary disease)Depression, major, in remissionWet and dry macular degeneration Dm retinopathyDiverticulosisHepatic steaosisHistory of GallstonesGlobus sensation/gerd H/O vaginal hysterectomy but kept ovariesOveractive bladder/urinary frequencyHistory of cerebrovascular accidentHistory of non-ST elevation myocardial infarction (NSTEMI)HypercholesterolemiaHypertensionLong term (current) use of insulinOSA on CPAPessential tremor to headRLS (restless legs syndrome)Thyroid nodulesSevere obesity (BMI 35.0-39.9) with comorbidityHistory of Transient ischemic attackType 2 diabetes mellitusFamily HistoryMother (twin, ): Aneurysm of head and neck artery; StrokeFather (debi, ): CAD - Coronary artery diseaseBrother (abdi, )Vaccines: up to [id number]:Mind: AxOx3, forgetful- blind versionMeds: Multiple meds working on polypharmacy, nothing concerning Mobility: 4 ww and wheelchair MM: remain in community long as possible and get used to oxygen and important tell the truthROSDenies fever and chillsDenies headache, dizziness, weakness, falls, syncope and vertigoFeels vision is getting worse. Left eye blurry and minimal vision from right eye there is a big hole of vision sees connor centrally. 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 Reports only has upper denture as too little ridge support on lower. Upper plate cracked and black has had for over 30 years. Reports trouble hearing at times in right ear but won't wear hearing aidsDenies chest pain, palpitationsDenies sob, cough at rest does have sob with exertion needs to increase her oxygen. Reports started on o2 a little over a month ago. Wear cpap at night. Ppt uses 2L nc at rest and 3L nc with exertionReports draining cysts to bilateral breasts in past only has part of her nipples. Denies any cysts or problems with breasts currently. Denies abd pain, n/v, constipation and diarrhea. Eating well. Denies hemorrhoids. Reports nocturia and heavy urine incontinence at times and fecal incontinence rarely if waits too long. Reports OB med has reduce number of times she has to get up to go at night. Denies leg pain, n/t to hands and feetDenies sadness, depression, si or anxiety. Reports depression is situational and started when her mom currently no issues in remission. PENAD obese elderly womanAxOx3 can be forgetful at times good historianPERRLBilateral ears with excess wax plan for flush, ppt no problems hearing meEdentulous, wearing upper dentures and when taking them out they are cracked to plate and are backMoist mucous membranesNo enlarged cervical lymph nodes, thyroid inspected with no nodules palpatedLSCTA bilaterally with 2 lpm NCHeart regular rate +s1 and +s2Abd soft, non tender, non distended, +xlq3Sxlc intact LE mild edema non pitting, +cms, warm feet, +pp, 08/29 microfilamentCalm and cooperative Instructions Date Instruction Additional Infor nikki need another sleep s tudy with cpap as her cpap isn't working right per ppt and feels need new settings. will refer Related to HAYDEE on CPAP Lipid panel 08/2023 85/166/33/19 goal ldl per cards less than 50 due to multiple tias, cva, cad s/p arcadio on zetia 10 mg daily and high intensity statin atorvastatin 80 mg daily. PEE labs show ldl 19 too low reduced atorvastatin to 40 mg daily at hs about a month ago will recheck levels goal less than 70 but greater than 40 today. Related to Hypercholesteremia vit d was low 16 on pee started vit d and increased to 27 and then increased to vit d 2000 units and will check today Related to Vitamin D deficiency metormin 500 mg BID Related to L monica term (current) use of oral hypoglycemic drugs Long hx of T2DM on i nsulin, alc was 6.2% in Sep 2024 and today brought in meter as asked. cgmave sugar the last two and aver sugar every 6 hours starting at midnight 107/89/135/151Ppt had 7 lows in the last 2 weeks mostly overnight early am6% high/87% in target/7% lowReports lows come in am if not having a good snack at night. She has lost a lot of weight in the last year or so on purpose. She has been eating more salads and more active. plangoal alc less than 7.5%reduce lantus by 20% to 40 units daily at hscontinue metformin 500 mg BID not able to tolerate morecould consider a glp in future to try and wean off insulinContinue to eat well and exercisePlease let me know if having low sugars are sugars are staying about 150-180check sugars before meals and bedtime. Related to Type 2 diabetes mellitus with hypoglycemia without coma, unspecified whether longterm insulin use REduce lantus to 40 units at hs Related to watermaster (current) use of insulin ppt with hx of COPD, 50 pack year smoker quite when she got her cva, and has had exacerbations inpt related to covid or pna or URI. She is on prn albuterol inhaler, neb bid, advair 2 puffs bid on chronic o2 2lpm at rest and 3 lpm with exertion. She follows with pulm Dr. Bacon. She has haydee wears cpap at night. SOB with exertion but is exercising more and feels less winded with walking. Started o2 aBOUT a month ago before PEE. Feel she is stable. VSS. Reported Dr. Bacon put on spiriva 18 mcg 2 puffs daily due to congetion follow up in [address] chest 01/15/2023 ed cough sob at [facility] acute hypoxic resp failure secondary to copd exacerbation following covid, ct chest shows mild centrilobular emphysema, no pnashe would like yearly ct chest for prevention was in lung program as was a smoker for many years.currently no sob, lungs clear and no chest pain Related to Chronic obstructive pulmonary disease, unspecified COPD type Lipid panel 08/2023 85/166/33/19 goal ldl per cards less than 50 due to multiple tias, cva, cad s/p arcadio on zetia 10 mg daily and high intensity statin atorvastatin 80 mg daily. Will check lipid panel. PEE labs show ldl 19 too low reduced atorvastatin to 40 mg daily at hs about a month ago will recheck levels goal less than 70 but greater than 40. Related to Hypercholesteremia ppt comes to us with RLS on ripinorole 0.5 mg daily at bedtime and working well then have change insurance and gap and didn't have some for a little bit. She had more restless legs on her sleep study but they didn't have her cpap on. Vit d and vit b12 found to be low and I replaced them. Will check levels today and continue roperinol. Related to Restless leg syndrome Ppt with long hx of HAYDEE for many years uses her cpap She uses 2LNC at rest and 3 lNC with exertion. Follows with Dr. Bacon and wanted repeat cpap sleep study however per daughter and ppt had sleep study yesterday but they did it off her cpap and she never went in rem and had a lot of leg spasms and not restful sleep but her oxygen was good. This is not a good representation. This test should of been done with cpap on. Going forward pulmonology was overnight oximetry test ordered to see if can come down on oxygen. Likely another sleep study won't be helpful. Denies sob and chest pain. Reports walking more and has more tolerance and gets less winded with exertion. She has lost 50 pounds in last 2 years. Related to HAYDEE on CPAP continue to follow w cresencio well drill operator helper cable tool-cad s/p stents, stemi and visual education director copd on o2 with exacerbationdoes not want project account manager, mammography, dexa or colonoscopyokay with lung screening smoker many years has lung noduleswants to change his eye doctor to dr solis and follow with [facility] need dental exam need new denturesdnr and dnippt own personchange o2 company Related to Healthcare maintenance Ct chest ldct lung p kasey 02/23/2023 just had lung screening IMPRESSION: 1. LungRad Category: 2 Benign Appearance or Behavior. Nodules with a very low likelihood of becoming a clinically active cancer due to size or lack of growth. Continue annual screening with LDCT in 12 months.There is a new solid 3.3 mm right lower lobe nodule (series 4 image 189). Other scattered solid calcified and noncalcified parenchymal and perifissural nodules measuring under 4 mm are unchanged.ppt doesn't need to continue with lung program okay with getting yearly ct chest lung screening. sob with exertion has copd on o2 no worse. Related to Lung nodules ppt with hx of COPD, 50 pack year smoker quite when she got her cva, and has had exacerbations inpt related to covid or pna or URI. She is on prn albuterol inhaler, neb bid, advair 2 puffs bid on chronic o2 2lpm at rest and 3 lpm with exertion. She follows with pulm Dr. Bacon. She has haydee wears cpap at night. SOB with exertion. Started o2 aBOUT a month ago. Feel she is stable. VSS.Ct chest 01/15/2023 ed cough sob at [facility] acute hypoxic resp failure secondary to copd exacerbation following covid, ct chest shows mild centrilobular emphysema, no pnashe would like yearly ct chest for prevention was in lung program as was a smoker for many years. Related to Chronic obstructive pulmonary disease, unspecified COPD type ppt with HAYDEE wears c pap follows with pulm dr bacon and sleeping well. Discussed weight loss. She no longer smokes. Related to HAYDEE on CPAP ppt comes to us with RLS on ripinorole 0.5 mg daily at bedtime and working well no changes Related to Restless leg syndrome tremor of head only that has been consistent for some time. No other tremor. She has at rest and with exertion no change. Does not bother her. NO other neruo deficits. Does not want work up. No signs of parkinsons Related to Essential tremor ppt has had cva in p ast resulted in mild right side weakness that has not resolved although hard to tell for me. Brain mri [facility] 05/01/2024 no acute intracranial abnormalities, moderate underlying microangiopathy and generalized cerebral volume loss with chronic lacunar infarcts of the cerebellum, calcified plaque of proximal intradural vertebral arteries, mod stenosis of the left posterior communication artery, atherosclerotic disease contintributes to mild less than 50% luminal narrowing of the bilateral ica origins, severe near occlusive stenosis of the right external carotid artery and mod to severe stenosis of the left external carotid artery, calcified plaque vertebral arteries mod stenosis on the left, ppt has had many tias seen neuro inpt on dual antiplatelet for life asa and plavix with goal permissive htn sbp 140 or less due to syncope and orthostasis which she has not had in some time after backing off on bp meds. She is on high intensity statin goal ldl less than 50 aden with extensive cardiac disease and goal alc less than 7% Related to History of CVA (cerebrovascular accident) hx of hysterectomy b ut kept ovaries per ppt and family member. NO vaginal bleeding. Does not want to follow with project account manager. Ruben vilchis. Does not remember why she had this done. Seen on ct abd and pelvis imaging Related to History of hysterectomy Hx of OAB trialed [facility] saw [facility] which she no longer follows with on oxybutynin 5 mg ER daily and working well to reduce her visits to br. She still has nocturia and some incontinence but improved. Related to OAB (overactive bladder) Ppt comes to us with hx of HTN on metoprolol and losartan goal sbp less than 140 per cards due to hx of syncope and orthostaiss. Ppt with significant cad s/p stents on dual antiplatelet still due to frequent tias and cvas. Today bp was at goal. CKD stage 3a/b secondary to htn and t2dm Cr 1.2 in February 2022, 0.9 in march 2022, 1.21 aug 2023 with gfr 48/63/48 on arb. stay hydrated avoid nephrotoxinsppt with hx of chronic diastolic well compensated HF not on diuretic. mild LE edema, no chest pain sob with exertion on o2 for copd appears euvolemic. Ntprobnp 5029 09/2020Echo 01/09/2023 left ventricle systolic function normal calculated ef 59% by biplane method evidence suggests evidence of grade one diastolic dysfunction elevated filling pressuresEcho 03/2024 [facility] left ventricular systolic function is normal. Visually estivated ej 55-60% no obvious valvular pathology seen evidence of grade 1 mild diastolic dysfunction and no regional wall motion abnormalities [facility] [place] diastolic chf hyperdynamic ejection fraction with empiric relaxation on echo chronic diastolic chf with acute decompensation 1 dose Lasix 05/16/2024 bmp 322Compensated and euvolemic not on diuretic mild edema no sob at rest. Will keep loose eye on weights. on bb and arb. Will check probnp intermittently to get baseline Related to Hypertensive heart and kidney disease with chronic diastolic congestive heart failure and stage 3 chronic kidney disease, unspecified whether stage 3a or 3b CKD Ppt comes to us with hx of HTN on metoprolol and losartan goal sbp less than 140 per cards due to hx of syncope and orthostaiss. Ppt with significant cad s/p stents on dual antiplatelet still due to frequent tias and cvas. Today bp was at goal. CKD stage 3a/b secondary to htn and t2dm Cr 1.2 in February 2022, 0.9 in march 2022, 1.21 aug 2023 with gfr 48/63/48 on arb. stay hydrated avoid nephrotoxinsppt with hx of chronic diastolic well compensated HF not on diuretic. mild LE edema, no chest pain sob with exertion on o2 for copd appears euvolemic. Ntprobnp 5029 09/2020Echo 01/09/2023 left ventricle systolic function normal calculated ef 59% by biplane method evidence suggests evidence of grade one diastolic dysfunction elevated filling pressuresEcho 03/2024 [facility] left ventricular systolic function is normal. Visually estivated ej 55-60% no obvious valvular pathology seen evidence of grade 1 mild diastolic dysfunction and no regional wall motion abnormalities [facility] chronic diastolic chf hyperdynamic ejection fraction with empiric relaxation on echo chronic diastolic chf with acute decompensation 1 dose Lasix 05/16/2024 bmp 322Compensated and euvolemic not on diuretic mild edema no sob at rest. Will keep loose eye on weights. on bb and arb. Will check probnp intermittently to get baseline Related to Chronic diastolic (congestive) heart failure ct abd and pelvis 2023nothing visible on abddenies painno issues with bmsobserve Related to Umbilical hernia without obstruction and without gangrene Abd ct cholelithiasi s without evidence of cholecystitis [facility] 4denies abd pain, n/v and tolerating fooddiscussed weight loss and reduce high fat diet Related to Cholelithiasis without cholecystitis Abd ct hepatic steat osis, [facility] 04/30/2024iscussed weight lossdenies abd pain and no issues with stoolstaking minimal tylenol for pain Related to Hepatic steatosis abd ct 04/30/2024 [facility] per records diverticulosis without diverticulitis. Discussed high fiber diet and softer stools was on colase change to senna. Denies abd pain or issues with stools. Related to Diverticulosis of colon hospitalization at [facility] had n/v found to have gastritis globus sensation saw speech reg diet, saw gi inpt placed on omeprazole dr 20 mg daily felt to be gerd recommended outpt barium swallow and modified barium swallow. NOt sure if ppt had this but not interested in now. Denies acid in back of her mouth. NO need to follow up no changes. cbc, vit d, cmp Related to Gastroesophageal reflux disease without esophagitis Reports has wet and dry MD gets injections in one eye on areds vitamins followed with dr. holliday and [facility] need notes. Denies retinopathy but in notes. Feels vision is getting worse. Left eye blurry and minimal vision from right eye there is a big hole of vision sees connor centrally. 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 holliday and [facility] need notes. Denies retinopathy but in notes. Feels vision is getting worse. Left eye blurry and minimal vision from right eye there is a big hole of vision sees connor centrally. Ppt wants to keep following up with [facility] and would like to see dr solis Related to Nonexudative age-related macular degeneration, unspecified laterality, unspecified stage bmi 39.2comorbiditie s, HTN, CKD, HAYDEE, COPD, CAD S/P STENTS, NSTEMI, [id number] weight lossdiet and exercise follow with RD Related to Severe obesity (BMI 35.0-39.9) with comorbidity bmi 39.1 Related to Body mass index [BMI] 39.0-39.9, adult mri c 05/01/2024enl arged multinodular right thyroid gland08/09/2024 [facility] thyroid ultrasoundIMPRESSION: Right mid gland 1.9 cm TI-RADS Category 3 nodule. 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 Cr 1.2 in February 2022, 0.9 in march 2022, 1.21 aug 2023 with gfr 48/63/48bp well controlled goal sbp less than 140 due to orthostasis and syncopealc less than 7%stay hydrated avoid nephrotoxineson losartan 100 mg dailycmp, urine microalbumin Related to Stage 3 chronic kidney disease, unspecified whether stage 3a or 3b CKD PPt reports has had T2DM for many years complicated by ckd stage 3a/b, Cr 1.2 in February 2022, 0.9 in march 2022, 1.21 aug 2023 with gfr 48/63/48. PPt t2dm also complicated by cad s/p many arcadio, nstemi, cva, tias followed by cards. ? hx of retinopathy made reference in some of pre enrollment notes but no opthalmology notes does have wet and dry MD. alc 8.21 jun 2021, 6.4 in February 2022, 8% oc 2022. Going back saw as high as 9.4% per notes. Ppt has cgm kalli 3. Did not have reader reports no lows sugar mostly less than 180. She lives with bf who helps to cook better meals. No exercise due to o2 dependant copd. Denies neuropathy. She is on basaglar 50 units daily wants switched back to lantus as her insurance company wouldn't cover felt worked better. She is on metformin 500 mg BID. She does not have calculus professor. Hx of jesus in past with gi illness per records. plangoal alc less than 7%discussed microvascular and macrovascular complications of uncontrolled dm and importance of compliance with meds, diet and exercise. Follow with RDexercise as tollipid panel, cmp, urine microalbumin, estrella arb and statin followed by cardsno need to see podiatry feet look good will let us know if issues we can help with nail cut Related to Type 2 diabetes mellitus with diabetic chronic kidney disease, unspecified CKD stage, unspecified whether terminal supervisor insulin use Lipid panel 08/2023 85/166/33/19 goal ldl per cards less than 50 due to multiple tias, cva, cad s/p arcadio on zetia 10 mg daily and high intensity statin atorvastatin 80 mg daily. Will check lipid panel. Related to Hypercholesteremia [facility] dec 2022 syncope unclear etiology, likely deconditioning from recent hospitalization, oral orthostatic bp, severe left subclavian artery stenosis evaluated by [facility] surgery, has good brachial pulses and equal bilateral bps not contributing to symptoms, cta chest showed no pe, ct head showed no intracranial hemorrhageconsult [facility]23 incidental finding left subclavian stenosis being worked up for SOB cta of chest severe left subclavian stenosis vascular eval and asymptomaic. Good motor and sensory in use. Doing well no intervention indicated. Follow up as needed Cta 01/17/2023 no pe, severe left subclavian stenosisCurrently asymptomatic. Ppt is on dual antiplatelet due to multiple tias and also cardiac stents in past. Mildly permissive sbp 140s or less due to hx of syncope and orthostasis on arb, bb. ppt is on high intensity statin. No chest pain or sob. bilateral arms +cms and brachial pulses with no pain to arms or hands Related to Stenosis of left subclavian artery hx of NSTEMI ppt uns ure on year thinks it was around 2currently with no chest pain and sob with exertion has copd on o2ppt was a smoker for many years, hld, t2dm at some points uncontrolled, significant complex cad with multiple stents last in march 2022Echo 02/23/2022 card report [place] [facility] [place]. ngo TTE echoNormal LV systolic function with mild LVH with impaired relaxation filling pattern and elevated filling pressure. Normal cardiac valvular doppler, normal RV systolic pressure, no pericardial effusion. EF 55-60%, left atrium mildly dilated, Nuclear stress [facility] shows ischemia/infarct pattern involving the inferior wall, inferolateral wall as well as basal part of inferior septum. There is significant ischemia component. Gated LVEF is 50% during stress and 56% during rest. Transient ischemia dilation not present. Follows with cardsaggressive vascular risk factor control on atorvastatin 80 mg daily, zetia 10 mg at hs, losartan 100 mg daily with goal sbp less than 140 due to issue with syncope and orthostasis on high levels, alc less than 7%, ldl less than 50, metoprolol 37.5 mg BID. Low fat diet, exercise, continue to not smoke. 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 Hx of NSTEMI. No angina pain.Ct chest 02/23/2023Heavy coronary artery calcifications, Severe atherosclerotic vascular calcification but no aneurysm. Follows with Dr. Ngo who recommended antiplatelt for 1 year with plavix and asa. Asa lifelong visit on 09/18/2023 reported no longer needed plavix and can consider low dose anticoagulant. Recommended high intensity statin with goal ldl less than 50. Alc less than 7%. Due to hx of orthostatic hypotension, syncope and left subclavian artery stenosis recommended permissive htn goal sbp less than 140. Continue zetia 10 mg daily at bedtime, metoprolol succinate er 37.5 mg BID, losartan 100 mg daily, asa 81 mg daily, atorvastatin 80 mg daily, nitroglycerin 0.4 mg tab prn every 5 min no more than 3 tab for chest pain. Ppt still currently on plavix. I was not able to get into this at this visit however due to multiple tias and hx of cvas neuro recommend dual antiplatelet likely why stayed on nit. Denies chest pain and reports sob with exertion with underlying copd. Will check lipid panel, alc. Continue to follow with cards. Discussed low fat and salt diet. BP today 138/72 with hr in the 60s no orthostasis Related to Atherosclerosis of [place] coronary artery of [place] heart without angina pectoris Hx of Major depressi on since her mother around 40 years ago per ppt and daughter. situational and comes and go with tragic events. She was on sertraline and that was stopped and started on fluoxetine 20 mg daily has been on for some time. Denies depression currently. Reports situational. Does not stay in a rut. She is happy most days and has things to look forward to and do. She has a bf she lives with for last 5 years who takes good care of her. Her family is supportive. Sleeping and eating well. No si. Wants to stay on current drug. Will check tsh, cmp, cbc, vit b 12 and vit d Related to Recurrent major depressive disorder, in partial remission Assessments Type Assessment Date No Information Goals Health Concern Goal Type Priority Status Date Lilli is at risk for functional decline related to overactive bladder, Hx CVA, Hx RI, resting tremor, osteoarthritis, macular degeneration, diabetic retinopathy, HAYDEE on CPAP, COPD, diabetes type II, and CKD III Lilli will remain at current level of functioning for 6 months. Patient Goal Complete Impaired Visual Acuity due to macular degeneration, poor vision in bilateral eyes, hx cataract surgery Lilli will continue to function in their current environment without injury through the next review. Patient Goal Lilli is at risk for skin breakdown related to overactive bladder Skin will remain free from breakdown for 6 months. Patient Goal Potential for complications related to Chronic Obstructive Pulmonary Disease. Lilli will not be hospitalized due to complications of COPD through next review. Patient Goal Lilli has depression related to medical conditions and deaths in family Lilli will identify coping strategies, and utilize these strategies during increased feelings of depression. Patient Goal Lilli is at risk for complications related to diabetes. Lilli will not experience any medical complications or hospitalizations, related to diabetes and A1C will be reduced or remain stable, as determined by the provider, for 6 months. Patient Goal Lilli is at risk for falls due to osteoarthritis, Hx CVA, resting tremor, overactive bladder, COPD on continuous oxygen, diabetes type II, and macular degeneration, poor vision in bilateral eyes, dizziness Lilli will not experience any falls or fall related injuries for 6 months. Patient Goal
== END 2025-02-17 16:02 | disposition home or self-care (01) ==
LOC: HO.HPS 15:16
PROVIDERS: PCP Nurse Practitioner Gerontology; Visit Provider Nurse Practitioner Family
DX: J44.9 Chronic obstructive pulmonary disease, unspecified (principal); J43.9 Emphysema, unspecified; Z87.09 Personal history of other diseases of the respiratory system; R91.1 Solitary pulmonary nodule
CPT/HCPCS: 99214

== ENCOUNTER → 2025-02-17 15:15 | Outpatient (BNVA) | payer MEDICARE, SELFPAY | PROVIDERS: PCP Nurse Practitioner Gerontology; Visit Provider Nurse Practitioner Family | DX: J43.9 Emphysema, unspecified (principal); G47.33 Obstructive sleep apnea (adult) (pediatric); R91.1 Solitary pulmonary nodule; Z87.09 Personal history of other diseases of the respiratory system; Z99.81 Dependence on supplemental oxygen; Z87.891 Personal history of nicotine dependence; Z86.73 Personal history of transient ischemic attack (TIA), and cerebral infarction without residual deficits | CPT/HCPCS: 99212 ==

== ENCOUNTER 2025-04-28 14:15 | Outpatient (AMB) | payer MEDICARE, SELFPAY ==
--- NOTE | 2025-04-28 12:49 | A.OFFVIS_ITS ---
Vital Signs 04/28/25 14:18 Height 4 ft 11 in Weight 198 lb 6.656 oz BMI 40.1 BP 170/60 H Blood Pressure Location Rt brachial Position Sitting Pulse 61 Pulse Source Pulse Oximeter Pulse Oximetry (%) 93 Oxygen Delivery Method Nasal Cannula Oxygen Flow Rate 2 Intake Visit Reasons: COPD Allergies adhesive tape Allergy (Mild, Verified 04/28/25 14:23) Unknown bee pollen [bee stings] Allergy (Mild, Verified 04/28/25 14:23) Swelling oxycodone [OXYCODONE] Allergy (Mild, Verified 04/28/25 14:23) ITCHING, itchy prednisone Allergy (Verified 04/28/25 14:23) Unknown hydromorphone [From DILAUDID] Adverse Reaction (Mild, Verified 04/28/25 14:23) ITCHING HPI HPI COPD: Details: Lilli is a pleasant 79 year old female, former 50 pack year smoker, quit 15 years ago with underlying DMII, COPD, HFpEF, HAYDEE on CPAP, PAD, TIA on plavix/ASA, CAD, and h/o acute hypoxic respiratory failure secondary to pulmonary edema as well as COPD exacerbation 04/2024. She continues to use supplemental oxygen 2L at rest and 3L with exertion, 2L NOC with CPAP therapy which is managed by [facility]. She has been moderately controlled on Advair, however often forgets to take second daily dose in addition to Spiriva and DuoNeb BID. Since the last visit, she has been more compliant with Advair and feel symptoms are better controlled reporting occasional dyspnea, wheezing and dry cough. She denies any visits to urgent care or hospitalizations related to respiratory distress since the last visit. [facility] Medical History (Updated 04/28/25 @ 14:52 by Olya Bee NP) Stenosis of left subclavian artery Multiple falls Macular degeneration Overactive bladder Chest tightness Abnormal nuclear stress test Cataract HAYDEE on CPAP Mild anemia Hypercholesterolemia Resting tremor Osteoarthritis Unsteady gait Vertigo Sleep apnea Diabetic retinopathy Hiatal hernia Depression COPD (chronic obstructive pulmonary disease) CKD (chronic kidney disease) Orthostatic hypotension NSTEMI (non-ST elevated myocardial infarction) Syncope HLD (hyperlipidemia) CAD (coronary artery disease) High cholesterol Diabetes Heart attack Stroke Surgical History Status post cardiac catheterization History of cataract extraction Hx of colonoscopy Hx of vaginal hysterectomy Stented coronary artery History of cardiac catheterization Family History Father CVD (cardiovascular disease) Mother Brain aneurysm Social History Household Members: Significant Other Housing: Apartment Are you a primary customer care team coach to a significant other at home: No Do you presently have visiting nurse or other home services: Yes Unable to assess alcohol history related to: Unknown Alcohol intake: never Patient Tobacco Use Status: Former Tobacco user Tobacco use type: Cigarette Years Smoked: 50 e-Cigarette/Vaping Use: Former Use Second Hand Smoke Exposure: No Advance Directives Date on File: 01/18/23 service: No Current occupational status: retired Review of Systems Const Denies chills, Denies excessive sweating, Denies fever(s), Denies headache(s) and Denies night sweats Eyes Denies dry eyes, Denies irritation and Denies itchy eyes ENT Reports Normal hearing present, Denies headache(s), Denies nasal congestion, Denies nasal discharge, Denies post nasal drip and Denies sore throat Card Denies chest pain, Denies chest pain at rest, Denies chest pain with activity, Denies claudication, Reports dyspnea on exertion and Denies paroxysmal nocturnal dyspnea Resp Denies change in phlegm color, Denies chest congestion, Reports cough, Denies hemoptysis, Denies excessive phlegm production, Denies pain on inspiration, Denies pain with cough, Reports dyspnea on exertion, Denies stridor and Reports wheezing Musc Denies myalgias Neuro Reports Normal hearing present and Denies headache(s) Endo Denies excessive sweating Fahad/Lymph Denies lymphadenopathy Aller/Immun Denies itchy eyes, Denies seasonal rhinorrhea and Reports wheezing Physical Exam Vital Signs: Last Vital Signs Pulse 61 04/28/25 14:18 BP 170/60 H 04/28/25 14:18 Pulse Ox 93 04/28/25 14:18 Oxygen Delivery Method Nasal Cannula 04/28/25 14:18 Oxygen Flow Rate 2 04/28/25 14:18 BMI result Body Mass Index 40.1 Const General: cooperative, comfortable, no acute distress, well developed and alert Nutritional Appearance: obese Orientation/consciousness: patient oriented x3 HEENT Head: Yes normal to inspection, Yes normocephalic and Yes atraumatic Ears: hearing grossly normal bilaterally and external ears normal Eyes General: appearance normal, both eyes and all related structures Eyelids: Yes eyelids normal Sclerae: sclerae normal EOM: EOMs intact bilaterally Neck Neck: Yes normal visual inspection and Yes no lymphadenopathy Lymphatic: no lymphadenopathy noted Chest Chest palpation & inspection: normal inspection of the chest Resp Effort & Inspection: normal respiratory effort, able to speak in complete s entences, no audible wheezes, no cough, no stridor, not tachypneic, no tripod positioning and no use of accessory muscles Auscultation: diminished lung sounds Cardio Jugular venous distension: no JVD Rate: regular rate Skin Other: warm, dry General skin exam: no rashes or lesions noted Neuro General: patient oriented x3 Cranial nerves: Yes Normal hearing present Cognition (Neuro): normal cognition Gait exam (Neuro): Assisted gait required Extrem Other: trace BLE edema Psych Appearance: grossly normal and well kempt Speech and movement: Normal speech and movement present and Clear speech present Affect: normal affect Attitude: cooperative Thought process: Normal thought process present Thought content: Normal thought content present Insight: Good insight present (Psych) Judgement: Good judgement present (Psych) Assessment & Plan Assessment & Plan (1) COPD (chronic obstructive pulmonary disease): Code(s): J44.9 - Chronic obstructive pulmonary disease, unspecified Category: Medical (2) Emphysema of lung: Code(s): J43.9 - Emphysema, unspecified Category: Medical (3) History of acute respiratory failure: Code(s): Z87.09 - Personal history of other diseases of the respiratory system Category: Medical (4) Pulmonary nodule: Code(s): R91.1 - Solitary pulmonary nodule Category: Medical Plan Encouraged Lilli to use Advair BID in addition to Spiriva and DuoNeb. Advised to continue to use 2L supplemental oxygen at rest and NOC with CPAP as well as 3L with exertion to maintain oxygen saturation >92%. She often checks oxygen saturation never below <92%. We had previously discussed repeat chest CT given smoking history, prior CT 2023 revealed mild to moderate emphysematous changes without concerning nodules. At this time, she would like to defer further imaging unless symptoms warrant. During exam patient reported palpitations and irregular rhythm ausculated, will send for EKG. Discussed signs and symptoms that would warrant emergent care. She denied any dizziness, lightheadedness or chest pain. Her BP was also elevated, unsure if she took her BP medication this morning, advised to reach out to die polisher if hypertension continues. All q uestions were answered and patient is in agreement of plan. Will follow up in 3-6 months or sooner if needed. Orders: Orders ECG 12 lead EKG Today I49.9 - Cardiac arrhythmia, unspecified Coding Level of Care Code Est Pt Level 4 (52874) Diagnoses COPD (chronic obstructive pulmonary disease) J44.9 Emphysema of lung J43.9 History of acute respiratory failure Z87.09 Pulmonary nodule R91.1
[2025-04-28 14:18] VITALS: BP 170/60; PULSE 61; O2SAT 93; BMI 40.1
--- OUTSIDE RECORDS SUMMARY | 2025-04-28 16:13 | XMS_ITS | Continuity of Care Document ---
Author Organization [facility] Address 1 [facility] [address] [place] [address] Phone Care Team Providers Care Supply Chain Engineer Name Role Phone Idris CHO, Beverly Unavailable Unavailable Allergies, Adverse Reactions, Alerts Substance Reaction Status Criticality ADHESIVE BANDAGE Active No Informat ion OXYCODONE HCL Active No Information acetaminophen Active No Information WARNIN allergy(ies) could not be collected because the type is not supported. Please contact the source practice for further details. Medications Medication Instructions Dosage Effective Dates (start - stop) Status Comments atorvastatin 20 mg tablet reduced take 1 tablet by oral route every day - Active LDL 29 REDUCED CAN WAIT TIL NEXT FILL oxybutynin chloride ER 5 mg tablet,extended release 24 hr take 2 tablet by oral route every day at bedtime - Active increased 10 mg IPRAT-ALBUT 0.5-3(2.5) MG/3 ML INHALE 1 VIAL (3ML) BY NEBULIZATION ROUTE TWICE A DAY - Active Vitamin B-12 1,000 mcg tablet TAKE 1 TABLET BY MOUTH DAILY. - Active BD AutoShield Duo Pen Needle 30 gauge x 02/02 use to give insulin daily by sq - Active ropinirole 1 mg tablet take 1 tablet by oral route daily 2 hours before bedtime - Active increased Lantus Solostar U-100 Insulin 100 unit/mL (3 mL) subcutaneous pen reduced 32 units sq injection daily at bedtime - Active reduced AREDS 2 Vitamins ORAL take one tablet by mouth BID - Active Vitamin D3 50 mcg (2,000 unit) tablet INCREASED take one tablet by mouth daily - Active vit d level 27 increased vit d Advair HFA 230 mcg-21 mcg/actuation aerosol inhaler [...] 1 hour before a meal - Active Oxygen NASAL conserving device to [...] d o handheld inhaler FreeStyle Kalli 3 Lena use to give insulin - Active broken Flonase Allergy Relief 50 mcg/actuation nasal spray,suspension [...] Location Reason(s) For Visit Diagnoses Date Provider Critical access hospital, 1 [facility], [place], [place], [id number], tel:[phone] Maysel No Information 5 Steinberg Beverly. [address] [place], [id number] , [place]. [phone] Critical access hospital, 1 [facility], [place], [place], [id number], [place] tel:[phone] Maysel No Information 5 Steinberg Beverly. [address] [place], [id number] , [place]. [phone] Critical access hospital, 1 [facility], [place], [place], [id number], [place] tel:[phone] Maysel No Information 5 Steinberg Beverly. [address] [place], [id number] , [place]. [phone] Critical access hospital, 1 [facility] [address], [place], [place], [id number], [place] tel:[phone] Maysel No Information 5 Steinberg Beverly. [address] [place], [id number] , [place]. [phone] Critical access hospital, 1 [facility] [address] [place] [address], [id number], [place] tel:[phone] Maysel Encounter for nutrit ional assessmentDiabetic nutritional counseling completedOther obesity Feb- 5 Delon Clarke. [address] [place], [id number] , [place]. tel:[phone] Critical access hospital, 1 [facility], [place], [place], [id number], [place] tel:[phone] Maysel Semi-Annual (chief complaint) Recurrent major depressive disorder, in partial remissionHypertensive heart and kidney disease with chronic diastolic congestive heart failure and stage 3 chronic kidney disease, unspecified whether stage 3a or 3b CKDChronic diastolic (congestive) heart failureStage 3a chronic kidney diseaseAtherosclerosis of kongigan[place] coronary artery of [place] heart without angina pectorisOld myocardial infarctionStenosis of left subclavian arteryHypercholesteremiaL monica term (current) use of oral hypoglycemic drugsType 2 diabetes mellitus with diabetic chronic kidney disease, unspecified CKD stage, unspecified whether usp insulin useLong term (current) use of insulinType 2 diabetes mellitus with hypoglycemia without coma, unspecified whether usp insulin useThyroid noduleVitamin D deficiencySevere obesity (BMI 35.0-39.9) with comorbidityPseudophakia of both eyesExudative age-related macular degeneration, unspecified laterality, unspecified stageNonexudative age-related macular degeneration, unspecified laterality, unspecified stageGastroesophageal reflux disease without esophagitisHepatic steatosisCholelithiasis without cholecystitisDiverticulos is of colonUmbilical hernia without obstruction and without gangreneOAB (overactive bladder)History of hysterectomyHistory of CVA (cerebrovascular accident)Essential tremorRestless leg syndromeChronic obstructive pulmonary disease, unspecified COPD typeLung nodulesOSA on CPAPHealthcare maintenanceAtherosclerosi s of kong[place] artery of both lower extremities with intermittent claudicationBMI 38.0-38.9,adult Feb- 5 Idris Paul. [address] [place], [id number] , [place]. tel:[phone] Critical access hospital, 1 [facility] [address], [place], [place], [id number], [place] tel:[phone] Maysel No Information 5 Steinberg Beverly. [address] [place], [id number] , [place]. tel:[phone] Critical access hospital, [address], [place], [place], [id number], [place] tel:[phone] Maysel No Information 5 Steinbreg Beverly. [address] [place], [id number] , [place]. tel:[phone] Critical access hospital, [address], [place], [place], [id number], [place] tel:[phone] Maysel HAYDEE on CPAP 0- 5 Steinberg Beverly. [address] [place], [id number] , [place]. tel:[phone] Critical access hospital, [address], [place], [place], [id number], [place] tel:[phone] Maysel Alteration in perfor jodi of activities of daily living 5 Uri Chiara. [address] [place], [id number] , [place]. tel:[phone] Critical access hospital, [address], [place], [place], [id number], [place] tel:[phone] Maysel Encounter for rehabilitation evaluation 5 Uri Chiara. [address] [place], [id number] , [place]. tel:[phone] Critical access hospital, [address], [place], [place], [id number], [place] tel:[phone] Maysel No Information 5 Steinberg Beverly. [address] [place], [id number] , [place]. tel:[phone] Critical access hospital, [address], [place], [place], [id number], [place] tel:[phone] Maysel No Information 5 Idris Paul. [address] [place], [id number] , [place]. tel:[phone] Critical access hospital, [address], [place], [place], [id number], [place] tel:[phone] Maysel No Information 4 Idris Paul. [address] [place], [id number] , [place]. tel:[phone] Critical access hospital, [address], [place], [place], [id number], [place] tel:[phone] Maysel Follow-up (chief complaint) Type 2 diabetes mellitus with hypoglycemia without coma, unspecified whether usp insulin useLong term (current) use of insulinLong term (current) use of oral hypoglycemic drugsVitamin D deficiencyHypercholestere [facility] Oct- 4 Idris Paul. [address] [place], [id number] , [place]. tel:[phone] Critical access hospital, [address], [place], [place], [id number], [place] tel:[phone] Maysel Encounter for rehabilitation evaluation 4 Uri Guadarrama. [address] [place], [id number] , [place]. tel:[phone] Critical access hospital, [address], [place], [place], [id number], [place] tel:[phone] Maysel Muscle weakness (generalized) 4 Yen Bautista. [address] [place], [id number] , [place]. tel:[phone] Critical access hospital, [address], [place], [place], [id number], [place] tel:[phone] Maysel Muscle weakness (generalized) 4 Yen Bautista. [address] [place], [id number] , [place]. tel: [phone] Critical access hospital, [address], [place], [place], [id number], [place] tel:[phone] Maysel Muscle weakness (generalized)Difficulty in walking, not elsewhere classified 4 Yen Bautista. [address] [place], [id number] , [place]. tel: [phone] Critical access hospital, [address], [place], [place], [id number], [place] tel:[phone] Maysel Muscle weakness (generalized) 4 Yen Bautista. [address] [place], [id number] , [place]. tel: [phone] Critical access hospital, 1 [facility], [place], [place], [id number], [place] tel:[phone] Maysel PEE FUV #1 (chief complaint) HAYDEE on CPAPRestless leg syndromeHypercholesteremi aChronic obstructive pulmonary disease, unspecified COPD type 4 Idris Paul. [address] [place], [id number] , [place]. tel: [phone] Critical access hospital, 1 [facility] [address] [place] [address], [id number], [place] tel:[phone] Maysel Follow-up (chief complaint) Muscle weakness (generalized) 4 Yen Bautista. [address] [place], [id number] , [place]. tel: [phone] Critical access hospital, [address], [place], [place], [id number], [place] tel:[phone] Maysel Encounter for rehabilitation evaluation 4 Yen Bautista. [address] [place], [id number] , [place]. tel:[phone] Critical access hospital, [address], [place], [place], [id number], [place] tel:[phone] Maysel Muscle weakness (generalized) Sep-0 4 Yen Bautista. [address] [place], [id number] , [place]. tel:[phone] Critical access hospital, [address], [place], [place], [id number], [place] tel:[phone] Maysel Muscle weakness (generalized) 0 4 Yen Bautista. [address] [place], [id number] , [place]. tel: Critical access hospital, [address], [place], [place], [id number], [place] tel:[phone] Maysel Muscle weakness (generalized) 4 Yen Bautista. [address] [place], [id number] , [place]. tel:[phone] Critical access hospital, [address], [place], [place], [id number], [place] tel:[phone] Maysel Muscle weakness (generalized) 4 Yen Bautista. [address] [place], [id number] , [place]. tel:[phone] Critical access hospital, [address], [place], [place], [id number], [place] tel:[phone] Maysel Muscle weakness (generalized)Difficulty in walking, not elsewhere classified 4 Yen Bautista. [address] [place], [id number] , [place]. tel:[phone] Critical access hospital, [address], [place], [place], [id number], [place] tel:[phone] Maysel Muscle weakness (generalized) 4 Yen Bautista. [address] [place], [id number] , [place]. tel:[phone] Critical access hospital, 1 [facility], [place], [place], [id number], [place] tel:[phone] Maysel Encounter for rehabilitation evaluation 4 Uri Guadarrama. [address] [place], [id number] , [place]. tel:[phone] Critical access hospital, 1 [facility] [address], [place], [place], [id number], [place] tel:[phone] Maysel Encounter for rehabilitation evaluation 4 Yen Bautista. [address] [place], [id number] , [place]. tel:[phone] [facility], [facility], [place], [place], [id number], [place] tel:[phone] Maysel Encounter for nutrit ional assessmentClass 2 severe obesity with serious comorbidity and body mass index (BMI) of 39.0 to 39.9 in adult, unspecified obesity typeMorbid (severe) obesity due to excess caloriesBody mass index [BMI] 39.0-39.9, adult 4 Normile Tricia. [address] [place], [id number] , [place]. tel:[phone] Critical access hospital, 1 [facility], [place], [place], [id number], [place] tel:[phone] Maysel No Information 4 Idris Hawthornea. [address] [place], [id number] , [place]. [phone] Critical access hospital, 1 [facility], [place], [place], [id number], [place] tel:[phone] Maysel Post Enrollment Evaluation (chief complaint) Recurrent major depressive disorder, in partial remissionAtherosclerosis of kong[place] coronary artery of [place] heart without angina pectorisOld myocardial infarctionStenosis of left subclavian arteryHypercholesteremiaT ype 2 diabetes mellitus with diabetic chronic kidney disease, unspecified CKD stage, unspecified whether termite exterminator helper insulin useStage 3 chronic kidney disease, unspecified [...] (current) use of oral hypoglycemic drugs 4 Irdis Paul. [address] [place], [id number] , [place]. tel:[phone] Critical access hospital, [address] [address], [place], [place], [id number], [place] tel:[phone] Maysel No Information 4 Idris Paul. [address] [place], [id number] , [place]. tel:[phone] Family History Family Member Type Diagnosis Age At Onset No Information Immunizations Vaccine Date Status Comments Zoster recombinant subunit administered S ource: New Immunization Record Zoster recombinant subunit administered S ource: New [...] Registry Payers Payer name Insurance type Covered democrat ID Authoriza tithuan(s) [employer] 16 [id number] [employer] 16 [id number] [employer] 16 [id number] [employer] 16 [id number] [employer] 16 [id number] Social History Type Description Quantity Date Captured [...] Ordered: Referrals: Ophthalmology. dr solis. Consult ordered Future Order: Radiology Order CT Chest, low dose for lung screen, WITHOUT contrast (60181), Ordered on: Ordered Future Order: Radiology Order Po lysomnography, 4+ add'l params w/CPAP ([id number]), Ordered on: Ordered History Of Present Illness Encounter Date Complaint History Of Prese nt Illness Semi-Annual Patient was seen today for her ELZA in the office and was accompanied by her daughter who helps with hx. She started with [facility] in 08/2024. Does not attend day program. Currently lives on 3rd floor apt with significant other Jeffery, has an elevator, in [facility]. Information per collective, [facility], ppt, daughter PPt with no hospitalizations, SNF stays and falls in the last 6 months which is the longest whe had gone without going to the hospital and is very proud of this. Complaints/concerns: Overall kristian is doing great reporting she has lost weight as eating better with no chocolate or candy and her weight is down with more salads. She is having some lows overnight otherwise sugars look good discussed reducing lantus to 32 units daily. She also endorses she is fatigued and tired at times doing the dishes. Daughter reports she is scared to go up on o2 when doing exertion as she feels she will run out. Discussed she has plenty of oxygen at home and by not going up on oxygen when exerting yourself can result in more fatigue and not getting oxygen to organs. Discussed by not walking as much due to scared to needing more oxygen can start to lose muscle and will result in faster fatigue. If find running out of oxygen we can let Reji know and she can get more. She reported her long time boyfriend wants to travel more and bought her immigen metered dose oxygen to use that puffs o2 instead of continued flow but make up editor said she didn't quality. Educated and recommended to follow pulms recs of staying is continuos o2. Kristian had a sleep study last as she was worried machine wasn't working well and daughter had to stay with her due to ppt vision can't go to bathroom herself. She was up going to br every 1.5 hours and has to wear pad all the time. She only drinks one tea in am stops driving 2-3 hours before bed and sugars are very controlled. She is on oxybutinin 5 mg ER discussed kidneys can handle going up to 10 mg daily. She also reports restless legs discussed will check iron levels but will go up on ropinirole to 1 mg daily at hs as well. She said settings on machine at sleep study went up from 14-18 on pressure not sure if working just using nose mask. She couldn't't tolerate full face mask. No changes made to machine awaiting on note usually pulm adjusts machine has follow up. She is not sure if needs new machine 5 years old. Ppt is very worried her vision. She has wet and dry macular. She reports she used to get injections in right eye now left eye. She said the doctor said not changes in right eye but left is worse. She reports at times vision in left eye blurry and others a veil over it. Sugars very well controlled. She has to listen to audio and can't really watch tv. Commission of the blind gave her glasses that were supposed to help but made it worse. She last saw [facility] on awaiting on note and next has appt in march. She had injection to left eye last she saw them. She reports after cataract surgery is when macular degeneration started to happen. She is on AREDS vitamins. Ppt just wants to know what to expect with her eyes. Once I have the note can go from there. She is also waiting on dentures. She has had her dentures for close to 30 years. They are black we later found out not due to be dirty but made for an patient. ADLs/services: Transportation is family first but matthias back up. ERS approved, she currently has one through [facility] ([facility]T). She is approved for 1 [...] si. Wants to stay on current drug. Does report very nervous about her vision and what to expect with MD I am awaiting on her [facility] note. Podiatry: Followed with dr chan in far past. However recently nurse has been taking care of her nails. 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 Only thing she can't eat is apples. Waiting for enable for dentures. Found out her dentures are black as made for woman not due to being dirty. Ophthalmology: She has dry and wet macular per ppt. She is on AREDs. She follows with retinal specialist-[facility]. Reports dry md in right used to get injections and wet in left got an injection on day has an appt in march 2025. We have no notes. Ppt worried about her vision in left eye sometimes blurry sometimes veil. She has to listen to audio books. She wants to know what to expect. We need the notes. Mammography: Cysts non cancerous and removed and had [...] and meds reviewed with ppt and daughter Vaccines: given shingrix by pcn [id number]:Mind: AxOx3, forgetful- blind versionMeds: Multiple meds working on polypharmacy, nothing concerning Mobility: 4 ww and wheelchair MM: remain in community long as possible and stay independent. Figure out what is going on with her eyes and what to expect from her MD. We are going up on ropinirole and oxybutinin due to restles legs and OAB is worse with great sugares and no drinking at hs or caffeine at hs. Awaiting on settings change for cpap machine and went down on insulin due to lows. ROSDenies fever and chillsDenies headache, dizziness, weakness, falls, syncope and vertigoFeels vision is getting worse. Left eye blurry and sometimes sees a veil, and minimal vision from right eye there is a big hole of vision sees connor centrally. 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 Worried on what to expect next. Denies trouble chewing or swallowing except can not chew an apple. Reports only has upper denture as too little ridge support on lower. Upper plate cracked and black has had for over 30 years. Awaiting on new dentures. Reports trouble hearing at times in right ear but won't wear hearing aidsDenies chest pain, palpitationsDenies sob, cough at rest does have sob with exertion needs to increase her oxygen but sometimes wont as scared to run out. Reports started on o2 a little over a month ago. Wear cpap at night. Ppt uses 2L nc at rest and 3L nc with exertion. Fatigued at times doing the dishes doesn't always go up on oxygen.Reports draining cysts to bilateral breasts in past [...] has to get up to go at night but starting to get up more daughter witnessed this every 1.5 hours get up to pee. Denies leg pain, n/t to hands and feetReports worsening restless legs at hs. Reports low sugars in am at times. Reports weight loss tryign to eat better more salads less sweets.Denies sadness, depression, si or anxiety. Reports depression is situational and started when her mom currently no issues in remission. PENAD obese elderly womanAxOx3 can be forgetful at times good historianPERRLBilateral ears with some wax clear tympanic membranes, ppt no problems hearing meEdentulous, wearing upper dentures and when taking them out they are cracked to plate and are backMoist mucous membranesNo enlarged cervical lymph nodes, thyroid inspected with no nodules palpatedLSCTA bilaterally with 2 lpm NCHeart regular rate +s1 and +s2Abd soft, non tender, non distended, +uyj3Vnam intact LE mild edema non pitting, +cms, warm feet, +pp, 10/10 microfilament, some claudication with exertion more fatigued legsCalm and cooperative Follow-up Today ppt presen crista for pee follow up with daughter. NO [...] reg +s1 and +s2mild LE edema, +pp, 10/10 microfilamentcalm and cooperative PEE FUV #1 Ppt presented to the office with her daughter who helps with hx. Ppt reports she had her sleep study yesterday as planned per her make up editor to look at her oxygen needs. However [...] to nena castellanos our pharmacist about this. ROSsee abovePENADaxox3, forgetful and daughter fill sin gapsperrllscta bilaterally on 2l NC q9hboxc rate reg +s1 and +s2abd soft, nontender, nondistended, +[id number] LE edemacalm and cooperative Follow-up Post Enrollment Evaluation Patient was seen today for her PEE in th e office and was accompanied by her daughter who helps with hx. She started with [facility] in 08/2024. Does not attend day program. Currently lives on 3rd floor apt with significant other Jeffery, has an elevator, in [facility]. Information per collective, [facility], ppt, daughter PPt with 4 hospitalizations, 2 SNF stays and 1 fall in the last 6 months [facility] ED June 14, 2024 syncope, slurred speech, unsteady gait found to have left carotid artery occlusion causing hypotension want permissive htn, discharged June 15, 2024 to [facility] iron def anemia, +orthostatic hypotension, uti, and discharged from snf on jun 28, 2024 to [facility] 05/16/2024 fall, weakness, copd exacerbation, acute resp failure with hypoxia, haydee discharged to [facility] May 23, 2024 and discharged from [facility] on June 11, 2024 to [facility] 04/29/2024 ED general weakness, n/v admitted on [...] EEG done, Pt had incidental findings at [facility] of enlarged thyroid and L breast finding - outpt f/u recommended. Pt was d/c to rehab. discharged May 03, 2024 to [facility] ED 03/30/2024 fall, nasal bone fx discharged [...] ERS approved, she currently has one through [facility] ([facility]T). She is approved for 1 [...] Coronary artery diseaseBrother (abdi, )Vaccines: up to [id number]:Mind: AxOx3, forgetful- blind versionMeds: Multiple meds working [...] and +s2Abd soft, non tender, non distended, +pto0Ctum intact LE mild edema non pitting, +cms, warm feet, +pp, 10/10 microfilamentCalm and cooperative Instructions Date Instruction Additional Infor nikki per pee notes ua art erial duplex of LE and abis on 03/26/2024 right common femoral artery 191 cm/s and left common femoral artery 151 cm/s with calcified plaque throughout bilateral superficial femoral artery with elevated velocity in distal segment found to have mod stenosis bilaterallyon exam LE normal coloring and toe nails well cut and look good with +pp bilaterally. MIld edema. Some pain in legs with exertion more tired feeling does have copd on oxygenppt hx of cad, mi and stents on dual antiplatetlet plavix and asa along with statin and bb and arbbp well controlled goal less than sbp 140 due to orthostaiss hxalc less than 7.5% well controlledldl less than 50 at goal Related to Atherosclerosis of [place] artery of both lower extremities with intermittent claudication continue to follow w cresencio leadership program internship-cad s/p stents, stemi and make up editor copd on o2 with exacerbationdoes not want haul truck driver, mammography, dexa or colonoscopyokay with lung screening smoker many years has lung nodules and follows with pulmwants to change his eye doctor to dr solis and follow with [facility] need dental exam need new denturesdnr and dnippt own personchange o2 company Related to Healthcare maintenance Ppt with long hx of HAYDEE for [...] see if can come down on oxygen. Ppt recently had another sleep study and will need the note. Ppt reported they adjusted setting just in sleep study but not now. NOT SURE IF need new machine had 5 years awaiting on note. Denies sob and chest pain. Reports walking more and has more tolerance and gets less winded with exertion. She has lost 50 pounds in last 2 years. Related to HAYDEE on CPAP ppt with hx of COPD, 50 pack [...] Ct chest 01/15/2023 ed cough sob at [facility] acute hypoxic resp failure secondary to copd exacerbation following covid, ct chest shows mild centrilobular emphysema, no pnashe would like yearly ct chest for prevention was in lung program as was a smoker for many years.currently no sob, lungs clear and no chest painshe is on 2L at rest and 3L with exertionbreathing no worseno changes to meds continue to follow with pulmhad a cpap recently study done will need adjustment in machine when get report Related to Chronic obstructive pulmonary disease, unspecified COPD type Ct chest ldct lung p clovisram 02/23/2023 just had lung screening IMPRESSION: 1. [...] o2 no worse. Related to Lung nodules kristian comes to us with RLS on ripinorole 0.5 mg daily at bedtime and working well then have change insurance and gap and didn't have some for a little bit. She had more restless legs on her sleep study but they didn't have her cpap on. Vit d and vit b12 found to be low and I replaced them. Now vit d and vit b12 levels are at goal. New sleep study awaiting on report. RLS worse. Increase ropinirole to 1 mg daily. Will check cbc, and iron panel Related to Restless leg syndrome tremor of head and h ands only that has been consistent for some [...] hard to tell for me. Brain mri [facility] 05/01/2024 no acute intracranial abnormalities, moderate underlying [...] bleeding. 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 Ruben pain. Does not remember why she had this done. Seen on ct abd and pelvis imaging Related to History of hysterectomy Hx of OAB trialed [facility] saw [facility] which she no longer follows with on oxybutynin 5 mg ER daily and working well to reduce her visits to br. She still has nocturia and some incontinence but improved. However recently reports getting up every 1.5 hours no dysuria. Will go up to 10 mg daily and check cbc Related to OAB (overactive bladder) abd ct 04/30/2024 [facility] per records diverticulosis without diverticulitis. Discussed high fiber diet and softer stools was on colase change to senna. Denies abd pain or issues with stools. Related to Diverticulosis of colon ct abd and pelvis 2023nothing visible on abddenies painno issues with bmsobserve Related to Umbilical hernia without obstruction and without gangrene Abd ct hepatic steat osis, [facility] 04/30/2024iscussed weight lossdenies abd pain and no issues with stoolstaking minimal tylenol for pain Related to Hepatic steatosis hospitalization at [facility] had n/v found to have gastritis globus sensation saw speech reg diet, saw gi inpt placed on omeprazole dr 20 mg daily felt to be gerd recommended outpt barium swallow and modified barium swallow. NOt sure if ppt had this but not interested in now. Denies acid in back of her mouth. NO need to follow up no changes. 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 holliday and now [facility] need notes. Denies retinopathy but in notes. Feels vision is getting worse. Left eye blurry and sometimes has a vail and minimal vision from right eye there is a big hole of vision sees connor centrally. Ppt wants to keep following up with [facility]. Ppt worried about what to expect with vision. She last got injections left eye on st paddy day 2024 and follow up in march 2025 Related to Nonexudative age-related macular degeneration, unspecified laterality, unspecified stage Reports has wet and dry MD gets injections in left eye on areds vitamins used to followed with dr. holliday and now [facility] need notes. Denies retinopathy but in notes. Feels vision is getting worse. Left eye blurry and sometimes has a vail and minimal vision from right eye there is a big hole of vision sees [facility] centrally. Ppt wants to keep following up with [facility]. Ppt worried about what to expect with vision. She last got injections left eye on st paddys day 2024 and follow up in march 2025 Related to Exudative age-related macular degeneration, unspecified laterality, unspecified stage Reported had both ca taracts replaced by Dr. holliday who said not much more he can do. Reports MD started after catarcts. Follows with [facility] for md Related to Pseudophakia of both eyes bmi 38.3 improvedcom orbidities, HTN, CKD, HAYDEE, COPD on o2, CAD S/P STENTS, NSTEMI, [id number] weight lossdiet and exercise follow with RDhas lost weight and eating better Related to Severe obesity (BMI 35.0-39.9) with comorbidity vit d was low 16 on pee started vit d and increased to 27 and then increased to vit d 2000 units and 41 in oct 2024 Related to Vitamin D deficiency mri [facility] 05/01/2024enl arged multinodular right thyroid gland08/09/2024 [facility] thyroid ultrasoundIMPRESSION: Right mid gland 1.9 cm TI-RADS Category 3 nodule. Follow-up ultrasound in 1 year is recommended per guidelines below.tsh Tsh 0.78 in heck tsh, repeat thyroid ultrasound 07/2025denies issues swallowing Related to Thyroid nodule Long hx of T2DM on i nsulin, alc was 6.2% in Sep 2024 and today brought in meter as asked. 2 lows overnight in ast 2 weeks. Very well controlled sugars . Weight loss and eating better plangoal alc less than 7.5%reduce lantus by 20% to 32 units daily at hscontinue metformin 500 mg BID not able to tolerate morecould consider a glp in future to try and wean off insulinContinue to eat well and exercisePlease let me know if having low sugars are sugars are staying about 150-180check sugars before meals and bedtime. 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 PPt t2dm also complicated by cad s/p many arcadio, nstemi, cva, tias followed by cards. ? hx of retinopathy made reference in some of pre enrollment notes but no opthalmology notes does have wet and dry MD. alc 8.21 jun 2021, 6.4 in February 2022, 8% oc 2022 and most recently alc 6.3 and 6.3%. Going back saw as high as 9.4% per notes. Ppt has cgm kalli 3. She lives with bf who helps to cook better meals. No exercise due to o2 dependant copd. Denies neuropathy. She is on o lantus 40 units daily. She is on metformin 500 mg BID. She does not have web consultant. Hx of jesus in past with gi illness per records. cgm today92% in target, 4% high and 4% lowEating better salad, taking weight down96/113/156/138-----ave last 2 weeks 125Reduce lantus to 32 unitsNo candy or chocolate plangoal alc less than 7.5%discussed microvascular and macrovascular complications of uncontrolled dm and importance of compliance with meds, diet and exercise. Follow with RDexercise as tollipid panel, cmp, urine microalbumin, estrella arb and statin followed by cardsno need to see podiatry feet look good will let us know if issues we can help with nail cutreduce lantus to 32 units daily continue on metforminstay hydrated and avoid nephrotoxins Related to Type 2 diabetes mellitus with diabetic chronic kidney disease, unspecified CKD stage, unspecified whether termite exterminator helper insulin use Lipid panel 08/2023 85/166/33/19 goal ldl per cards less than 50 due to multiple tias, cva, cad s/p arcadio on zetia 10 mg daily and high intensity statin atorvastatin 80 mg daily. PEE labs show ldl 19 too low reduced atorvastatin to 40 mg daily at hs and in oct 2024 ldl was 29 goal less than 70 but greater than 40 today.Will recheck lipid panel today might have to go down again Related to Hypercholesteremia metormin 500 mg BID Related to L monica term (current) use of oral hypoglycemic drugs [facility] dec 2022 syncope unclear etiology, likely deconditioning from recent hospitalization, oral orthostatic bp, severe left subclavian artery stenosis evaluated by [facility] surgery, has good brachial pulses and equal bilateral bps not contributing to symptoms, cta chest showed no pe, ct head showed no intracranial hemorrhageconsult [facility] 01/19/2023 incidental finding left subclavian stenosis being [...] in march 2022Echo 02/23/2022 card report from [facility] [place]. ngo TTE echoNormal LV systolic function with mild LVH with impaired relaxation filling pattern and elevated filling pressure. Normal cardiac valvular doppler, normal RV systolic pressure, no pericardial effusion. EF 55-60%, left atrium mildly dilated, Nuclear stress test [facility]23[facility]/infarct pattern involving [...] LAD stenting. Hx of NSTEMI. No angina pain. Ct chest 02/23/2023Heavy coronary artery calcifications, Severe atherosclerotic vascular calcification but no aneurysm.Follows with Dr. Ngo who recommended antiplatelt for [...] dual antiplatelet likely why stayed on nit. Pt and daughter reports every time come off plavix have tia want to stay on it. Denies chest pain and reports sob with exertion with underlying copd. Will check lipid panel, alc. Continue to follow with cards. Discussed low fat and salt diet. BP today well controlled today Related to Atherosclerosis of [place] coronary artery of [place] heart without angina pectoris Today bp was at goal . Sugars very well controlled. sbp 120s CKD stage 3a secondary to htn and t2dm Cr 1 and gfr 58 in oct 2024 on arb. stay hydrated avoid nephrotoxinsbp well controlled goal sbp less than 140 due to orthostasis and syncopealc less than 7%stay hydrated avoid nephrotoxineson losartan 100 mg dailycmp, urine microalbumin Related to Stage 3a chronic kidney disease Ppt comes to us with hx of HTN on metoprolol and losartan goal sbp less than 140 per cards due to hx of syncope and orthostaiss. Ppt with significant cad s/p stents on dual antiplatelet still due to frequent tias and cvas when trialing off them. Today bp was at goal. CKD stage 3a secondary to htn and t2dm Cr 1 and gfr 58 in oct 2024 on arb. stay hydrated avoid nephrotoxinsppt with hx of chronic diastolic well compensated HF not on diuretic. mild LE edema, no chest pain sob with exertion on o2 for copd appears euvolemic. Ntprobnp 5029 09/2020Echo 01/09/2023 left ventricle systolic function normal calculated ef 59% by biplane method evidence suggests evidence of grade one diastolic dysfunction elevated filling pressuresEcho 03/2024 [facility] left ventricular systolic function is normal. Visually estivated ej 55-60% no obvious valvular pathology seen evidence of grade 1 mild diastolic dysfunction and no regional wall motion abnormalities [facility] chronic diastolic chf hyperdynamic ejection fraction with empiric relaxation on echo chronic diastolic chf with acute decompensation 1 dose Lasix 05/16/2024 bmp 322Compensated and euvolemic not on diuretic mild edema no sob at rest. Will keep loose eye on weights although weight loss today watching what she eats. on bb and arb. Will check probnp [...] antiplatelet still due to frequent tias and cvas when trialing off them. Today bp was at goal. CKD stage 3a secondary to htn and t2dm Cr 1 and gfr 58 in oct 2024 on arb. stay hydrated avoid nephrotoxinsppt with hx of chronic diastolic well compensated HF not on diuretic. mild LE edema, no chest pain sob with exertion on o2 for copd appears euvolemic. Ntprobnp 5029 09/2020Echo 01/09/2023 left ventricle systolic function normal calculated ef 59% by biplane method evidence suggests evidence of grade one diastolic dysfunction elevated filling pressuresEcho 03/2024 [facility] left ventricular systolic function is normal. Visually estivated ej 55-60% no obvious valvular pathology seen evidence of grade 1 mild diastolic dysfunction and no regional wall motion abnormalities [facility] chronic diastolic chf hyperdynamic ejection fraction with empiric relaxation on echo chronic diastolic chf with acute decompensation 1 dose Lasix 05/16/2024 bmp 322Compensated and euvolemic not on diuretic mild edema no sob at rest. Will keep loose eye on weights although weight loss today watching what she eats. on bb and arb. Will check probnp intermittently to get baseline Related to Chronic diastolic (congestive) heart failure Hx of Major depressi on since her [...] si. Wants to stay on current drug. Does admit the changes with her vision is making her sad and nervous just wants clarification from eye doctor which we are working on. Will check tsh, cmp, cbc, vit b 12 and vit d Related to Recurrent major depressive disorder, in partial remission need another sleep s tudy with cpap [...] as asked. cgmave sugar the last two akult207 and aver sugar every 6 hours starting [...] by 20% [facility] [place] 500 mg BID not able to tolerate morecould consider a glp in future to try and wean off insulinContinue to eat well and exercisePlease let me know if having low sugars are sugars are staying about 150-180check sugars before meals and bedtime. 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 Brain mri [facility] 05/01/2024 no acute intracranial abnormalities, moderate underlying [...] bleeding. 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 Ruben vilchis. Does not remember why she had this done. Seen on ct abd and pelvis imaging Related to History of hysterectomy Hx of OAB [facility]ed [facility] saw [facility] which she no longer follows with [...] one diastolic dysfunction elevated filling pressuresEcho 03/2024 [facility] left ventricular systolic function is normal. Visually estivated ej 55-60% no obvious valvular pathology seen evidence of grade 1 mild diastolic dysfunction and no regional wall motion abnormalities [facility] chronic diastolic chf hyperdynamic ejection fraction with empiric relaxation on echo chronic diastolic chf with acute decompensation 1 dose Lasix 05/16/2024 bmp 322Compensated and euvolemic not on diuretic mild edema no sob at rest. Will keep loose eye on weights. on bb and arb. Will check probnp intermittently to get baseline Related to Chronic diastolic (congestive) heart failure Ppt comes to us with hx of [...] of grade one diastolic dysfunction [facility] left ventricular systolic function is normal. Visually estivated ej 55-60% no obvious valvular pathology seen evidence of grade 1 mild diastolic dysfunction and no regional wall motion abnormalities [facility] chronic diastolic chf hyperdynamic [...] unspecified whether stage 3a or 3b CKD ct abd and pelvis 2023nothing visible on abddenies painno issues with bmsobserve Related to Umbilical hernia without obstruction and without gangrene Abd ct cholelithiasi s without evidence of cholecystitis [facility] 04/30/2024enies abd pain, n/v and tolerating fooddiscussed weight loss and reduce high fat diet Related to Cholelithiasis without cholecystitis Abd ct hepatic steat osis, [facility] 04/30/2024iscussed weight lossdenies abd pain and no issues with stoolstaking minimal tylenol for pain Related to Hepatic steatosis abd ct 04/30/2024 [facility] per records diverticulosis without diverticulitis. Discussed high fiber diet and softer stools was on colase change to senna. Denies abd pain or issues with stools. Related to Diverticulosis of colon hospitalization at [facility] had n/v found to have gastritis [...] areds vitamins followed with dr. holliday and [facility] need notes. Denies retinopathy but in [...] vitamins followed with dr. holliday and [facility] [place] need notes. Denies retinopathy but in [...] CKD, HAYDEE, COPD, CAD S/P STENTS, NSTEMI, [id number] weight lossdiet and exercise follow with RD Related to Severe obesity (BMI 35.0-39.9) with comorbidity bmi 39.1 Related to Body mass index [BMI] 39.0-39.9, adult mri [facility] 05/01/2024enl arged multinodular right thyroid gland08/09/2024 [facility] thyroid ultrasoundIMPRESSION: Right mid gland 1.9 cm TI-RADS Category 3 nodule. 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 She does not have web consultant. Hx of jesus in past with gi [...] kidney disease, unspecified CKD stage, unspecified whether usp insulin use Lipid panel 08/2023 85/166/33/19 goal ldl per cards less than 50 due to multiple tias, cva, cad s/p arcadio on zetia 10 mg daily and high intensity statin atorvastatin 80 mg daily. Will check lipid panel. Related to Hypercholesteremia [facility] dec 2022 syncope unclear etiology, likely deconditioning from recent hospitalization, oral orthostatic bp, severe left subclavian artery stenosis evaluated by [facility], has good brachial pulses and equal bilateral bps not contributing to symptoms, cta chest showed no pe, ct head showed no intracranial hemorrhageconsult [facility] 01/19/2023 incidental finding left subclavian stenosis being [...] ure on year thinks it was around urrently with no chest pain and sob with exertion has copd on o2ppt was a smoker for many years, hld, t2dm at some points uncontrolled, significant complex cad with multiple stents last in march 2022Echo 02/23/2022 card report from [facility] dr. ngo TTE echoNormal LV systolic function with mild LVH with impaired relaxation filling pattern and elevated filling pressure. Normal cardiac valvular doppler, normal RV systolic pressure, no pericardial effusion. EF 55-60%, left atrium mildly dilated, Nuclear stress test 02/23/2022 [facility] ischemia/infarct pattern involving [...] 60s no orthostasis Related to Atherosclerosis of [place] coronary artery of [place] heart without angina pectoris Hx of Major [...] related to overactive bladder, Hx CVA, Hx NE, resting tremor, osteoarthritis, macular degeneration, diabetic retinopathy, HAYDEE on CPAP, COPD, diabetes type II, and CKD III Lilli will remain at current level of functioning for 6 months. Patient Goal Complete Impaired Visual Acuity due to macular degeneration, poor vision in bilateral eyes, hx cataract surgery Lilli will continue to function in their current environment without injury through the next review. Patient Goal Continued Lilli is at risk for skin breakdown related to overactive bladder Skin will remain free from breakdown for 6 months. Patient Goal Continued Potential for complications related to Chronic Obstructive Pulmonary Disease. Lilli will not be hospitalized due to complications of COPD through next review. Patient Goal Continued Lilli has depression related to medical conditions and deaths in family Lilli will identify coping strategies, and utilize these strategies during increased feelings of depression. Patient Goal Continued Lilli is at risk for complications related to diabetes. Lilli will not experience any medical complications or hospitalizations, related to diabetes and A1C will be reduced or remain stable, as determined by the provider, for 6 months. Patient Goal Continued Lilli is at risk for falls due to osteoarthritis, Hx CVA, resting tremor, overactive bladder, COPD on continuous oxygen, diabetes type II, and macular degeneration, poor vision in bilateral eyes, dizziness Lilli will not experience any falls or fall related injuries for 6 months. Patient Goal Continued
== END 2025-04-28 14:56 | disposition home or self-care (01) ==
LOC: HO.HPS 14:16
PROVIDERS: PCP Nurse Practitioner Gerontology; Visit Provider Nurse Practitioner Family
DX: J44.9 Chronic obstructive pulmonary disease, unspecified (principal); J43.9 Emphysema, unspecified; Z87.09 Personal history of other diseases of the respiratory system; R91.1 Solitary pulmonary nodule
CPT/HCPCS: 99214

== ENCOUNTER → 2025-04-28 14:15 | Outpatient (BNVA) | payer MEDICARE, SELFPAY | PROVIDERS: PCP Nurse Practitioner Gerontology; Visit Provider Nurse Practitioner Family | DX: J44.9 Chronic obstructive pulmonary disease, unspecified (principal); J43.9 Emphysema, unspecified; Z87.09 Personal history of other diseases of the respiratory system | CPT/HCPCS: 99212 ==

== ENCOUNTER 2025-08-25 14:30 | Outpatient (AMB) | payer MEDICARE, SELFPAY ==
--- OUTSIDE RECORDS SUMMARY | 2025-08-25 11:17 | XMS_ITS | Continuity of Care Document ---
Author Organization [facility] Address 1 [facility] [address] [place] [address] Phone Care Team Providers Care Clinical Associate Name Role Phone Jannette Centeno PT Unavailable Unavailab le Allergies, Adverse Reactions, Alerts Substance Reaction Status Criticality ADHESIVE BANDAGE Active No Informat ion OXYCODONE HCL Active No Information acetaminophen Active No Information WARNIN allergy(ies) could not be collected because the type is not supported. Please contact the source practice for further details. Medications Medication Instructions Dosage Effective Dates (start - stop) Status Comments doxycycline hyclate 100 mg capsule take 1 capsule by oral route 2 times every day x 7 days - Active tizanidine 2 mg tablet Take 1 tablet by mouth daily at bedtime. - Active In SNF FreeStyle Kalli 3 Plus Sensor device Use for continuous glucose monitoring. Change every 14 days. - Active oxycodone 5 mg capsule take 1/2 capsule by oral route every 6 hours as needed for pain - Active Miralax 17 gram oral powder packet 1 pack/packet by mouth daily as needed for constipation - Active Multivitamin 50 Plus tablet Take 1 tab oral route daily - Active Milk of Magnesia 400 mg/5 mL oral suspension take 30 milliliter by oral route every day as needed, followed by a full glass (8 oz) of liquid 30.00 milliliter - Active acetaminophen 325 mg tablet take 3 tablet by oral route TID - Active aspirin 81 mg ORAL TABLET take one tablet by mouth daily (hold until more ambulatory and enoxaparin is discontinue - Active ADVAIR HFA 230-21 MCG INHALER INHALE 2PUFFS INTO THE LUNGS TWICE A DAY. IN THE MORNING AND IN THE EVENING - Active SPIRIVA RESPIMAT 2.5 MCG INH USE 2 PUFFS BY MOUTH AT THE SAME TIME EACH DAY - Active Lantus Solostar U-100 Insulin 100 unit/mL (3 mL) subcutaneous pen reduced 24 units sq injection daily at bedtime - Active reduced oxybutynin chloride ER 5 mg tablet,extended release 24 hr TAKE (2) TABLETS BY MOUTH AT BEDTIME. - Active metformin 500 mg tablet take 1 tablet by oral route 2 times every day with morning and evening meals 500 MG - Active Assure ID Pro Pen Needle 30 gauge x 3/16 use to give insulin subcutaneously - Active atorvastatin 20 mg tablet reduced take 1 tablet by oral route every day - Active LDL 29 REDUCED CAN WAIT TIL NEXT FILL IPRAT-ALBUT 0.5-3(2.5) MG/3 ML INHALE 1 VIAL (3ML) BY NEBULIZATION ROUTE TWICE A DAY - Active Vitamin B-12 1,000 mcg tablet TAKE 1 TABLET BY MOUTH DAILY. - Active BD AutoShield Duo Pen Needle 30 gauge x 3/16 use to give insulin daily by sq - Active ropinirole 1 mg tablet take 1 tablet by oral route daily 2 hours before bedtime - Active increased AREDS 2 Vitamins ORAL take one tablet by mouth BID - Active Vitamin D3 50 mcg (2,000 unit) tablet INCREASED take one tablet by mouth daily - Active vit d level 27 increased vit d clopidogrel 75 mg tablet take 1 tablet by oral route every day 75 MG - Active ezetimibe 10 mg tablet take 1 tablet by oral route every day at bedtime - Active fluoxetine 20 mg capsule take 1 capsule by oral route every day in the morning 20 MG - Active losartan 100 mg tablet take 1 tablet by oral route every day 100 MG - Active metoprolol tartrate 25 mg tablet take 1.5 tablet (37.5 mg) by oral route 2 times every day - Active omeprazole 20 mg capsule,delayed release take 1 capsule by oral route every day 30 minutes to 1 hour before a meal - Active Oxygen NASAL conserving device to maintain sats above 90% - Active FreeStyle Kalli 3 Thelma use to give insulin - Active broken [...] Location Reason(s) For Visit Diagnoses Date Provider [facility] [address] [place] [address], [id number], tel:[phone] [place] No Information Aug-0 5 Taryn Bhatia. [address] [place], [place], [id number], [place]. tel:[phone] [facility], [address] [facility], [place], [place], [id number], [place] tel:[phone] [place] SNF Admit (chief complaint) Closed trimalleolar fracture of right ankle with delayed healing, subsequent encounter Jul-3 5 Tucker Kaur. 101 [facility], [place], [place], [id number], [place]. tel:[phone] [facility], [address] [facility], [place], [place], [id number], [place] tel:[phone] [place] [address] No Information Sep-2 5 Os Maribel. [address], [place], [place], [id number], [place]. tel:[phone] [facility], [address] [facility] [address] [facility], [place], [place], [id number], [place] tel:[phone] [place] No Information Sep-2 5 Pitsiladis Marlene. [address], [place], [place], [id number], [place]. tel:[phone] [facility], [address] [facility], [place], [place], [id number], [place] tel:[phone] [place] Encounter for rehabilitation evaluation Sep-2 5 Taryn Bhatia. [address] [facility] [address], [place], [place], [id number], [place]. tel:[phone] [facility], [address] [facility] [facility], [place], [place], [id number], [place] tel:[phone] [place] [facility] Follow-up (chief complaint) Closed trimalleolar fracture of right ankle with routine healing, subsequent encounter Sep-2 5 Ed Aqib. [address] [place], [id number], [place]. tel:[phone] [facility], [address] [facility] [facility], [place], [place], [id number], [place] tel:[phone] [place] [address] No Information Sep-1 5 Pitsiladis Marlene. [address], [place], [place], [id number], [place]. tel:[phone] [facility], [address] [facility] [address] [facility], [place], [place], [id number], [place] tel:[phone] [place] [facility] Admit (chief complaint) Closed trimalleolar fracture of right ankle with routine healing, subsequent encounterCentrilobular emphysemaOxygen dependentFormer smoker Sep- 5 Pitsiladis Marlene. [address], [place], [place], [id number], [place]. tel:[phone] [facility], [address], [place], [place], [id number], [place] tel:[phone] [place] No Information Sep- 5 Taryn Bhatia. [address] [place], [place], [id number], [place]. tel:[phone] [facility], [address] [facility], [place], [place], [id number], [place] tel:[phone] [place] Encounter for rehabilitation evaluation Sep- 5 Taryn Bhatia. [address] [place], [place], [id number], [place]. tel:[phone] [facility], [address], [place], [place], [id number], [place] tel:[phone] [place] Other fracture of ri ght lower leg, initial encounter for closed fracture Sep- 0 5 Tucker Kaur. [address], [place], [place], [id number], [place]. tel:[phone] [facility], [address] [facility] [address] [facility], [place], [place], [id number], [place] tel:[phone] [place] No Information Sep-0 5 Idris Paul. [address] [place], [place], [id number], [place]. tel:[phone] [facility], [address], [place], [place], [id number], [place] tel:[phone] [place] Muscle weakness (generalized)Difficulty in walking, not elsewhere classified 5 Taryn Bhatia. [address] [place], [place], [id number], [place]. tel:[phone] [facility], [address], [place], [place], [id number], [place] tel:[phone] [place] Muscle weakness (generalized) 5 Taryn Bhatia. [address] [place], [place], [id number], [place]. tel:[phone] [facility], [address], [place], [place], [id number], [place] tel:[phone] [place] Muscle weakness (generalized) 5 [facility] Jannette. [address] [place], [place], [id number], [place]. tel:[phone] [facility], [address], [place], [place], [id number], [place] tel:[phone] [place] Muscle weakness (generalized) 5 [facility] Jannette. [address] [place], [place], [id number], [place]. tel:[phone] [facility], [address] [facility], [place], [place], [id number], [place] tel:[phone] [place] Muscle weakness (generalized) 5 [facility] Jannette. [address] [place], [place], [id number], [place]. tel:[phone] [facility], [address] [facility], [place], [place], [id number], [place] tel:[phone] [place] Difficulty in walkin g, not elsewhere classified 5 [facility] Jannette. [address] [place], [place], [id number], [place]. tel:[phone] [facility], [address], [place], [place], [id number], [place] tel:[phone] [place] Muscle weakness (generalized) 0 5 [facility] Jannette. [address] [place], [place], [id number], [place]. tel:[phone] [facility], [address], [place], [place], [id number], [place] tel:[phone] [place] Muscle weakness (generalized) 5 Taryn Bhatia. [address] [place], [id number], [place]. tel:[phone] [facility], [address], [place], [place], [id number], [place] tel:[phone] [place] No Information 5 Ladi Guevara. [address] [place] [address], [id number], [place]. tel:[phone] [facility], [address], [place], [place], [id number], [place] tel:[phone] [place] Type 2 diabetes mellitus with hypoglycemia without coma, with long-term current use of insulinLong term (current) use of insulin 5 Irdis Paul. [address] [place], [id number], [place]. tel:[phone] [facility], [address] [facility] [address], [place], [place], [id number], [place] tel:[phone] [place] Encounter for rehabilitation evaluation 5 Taryn Bhatia. [address], [place], [place], [id number], [place]. tel:[phone] [facility], [address] [facility] [address] [facility], [place], [place], [id number], [place] tel:[phone] [place] Encounter for rehabilitation evaluation 5 Uri Guadarrama. [address], [place], [place], [id number], [place]. tel:[phone] [facility], [address] [facility], [place], [place], [id number], [place] tel:[phone] [place] No Information 5 Ed Lion. [address] [place], [id number], [place]. tel:[phone] [facility], [address] [facility], [place], [place], [id number], [place] tel:[phone] [place] No Information 5 Steinberg Beverly. [address] [place], [place], [id number], [place]. tel:[phone] [facility], [address] [facility] [address] [facility], [place], [place], [id number], [place] tel:[phone] [place] No Information 5 Steinberg Beverly. [address] [place], [place], [id number], [place]. tel:[phone] [facility], [address] [facility] [address] [facility], [place], [place], [id number], [place] tel:[phone] [place] No Information 5 Steinberg Beverly. [address] [place], [place], [id number], [place]. tel:[phone] [facility], [address] [facility], [place], [place], [id number], [place] tel:[phone] [place] No Information 5 Steinberg Beverly. [address], [place], [place], [id number], [place]. tel:[phone] [facility], [address] [facility] [address] [facility], [place], [place], [id number], [place] tel:[phone] [place] Encounter for nutritional assessmentDiabetic nutritional counseling completedOther obesity 5 Normile Tricia. [address] [place], [place], [id number], [place]. tel:[phone] [facility], [address] [facility] [address] [facility], [place], [place], [id number], [place] tel:[phone] [place] Semi-Annual (chief complaint) Recurrent major depressive disorder, in partial remissionHypertensive heart and kidney disease with chronic diastolic congestive heart failure and stage 3 chronic kidney disease, unspecified whether stage 3a or 3b CKDChronic diastolic (congestive) heart failureStage 3a chronic kidney diseaseAtherosclerosis of [place] coronary artery of [place] heart without angina pectorisOld myocardial infarctionStenosis of left subclavian arteryHypercholesteremi aLong term (current) use of oral hypoglycemic drugsType 2 diabetes mellitus with diabetic chronic kidney disease, unspecified CKD stage, unspecified whether senior care insulin useLong term (current) use of insulinType 2 diabetes mellitus with hypoglycemia without coma, unspecified whether assistant terminal manager insulin useThyroid noduleVitamin D deficiencySevere obesity (BMI 35.0-39.9) with comorbidityPseudophakia of both eyesExudative age-related macular degeneration, unspecified laterality, unspecified stageNonexudative age-related macular degeneration, unspecified laterality, unspecified stageGastroesophageal reflux disease without esophagitisHepatic steatosisCholelithiasis without cholecystitisDiverticul osis of colonUmbilical hernia without obstruction and without gangreneOAB (overactive bladder)History of hysterectomyHistory of CVA (cerebrovascular accident)Essential tremorRestless leg syndromeChronic obstructive pulmonary disease, unspecified COPD typeLung nodulesOSA on CPAPHealthcare maintenanceAtherosclero sis of [place] artery of both lower extremities with intermittent claudicationBMI 38.0-38.9,adult 5 Idris Paul. [address] [place], [place], [id number], [place]. tel:[phone] [facility], [address] [facility] [address] [place] [address], [id number], tel:[phone] [place] No Information 5 Idris Paul. [address] [facility] [place], [id number], [place]. tel:[phone] [facility], [address] [facility] [address] [place] [address], [id number], tel:[phone] [place] No Information 5 Idris Paul. [address] [facility] [place], [id number], [place]. tel:[phone] [facility], [address] [place] [address], [id number], [place] tel:[phone] [place] HAYDEE on CPAP Jan- 0- 5 Idris Paul. [address] [place], [place], [id number], [place]. tel:[phone] [facility], [address], [place], [place], [id number], [place] tel:[phone] [place] Alteration in performance of activities of daily living Jan-0 - 5 Uri Chiara. [address] [place], [place], [id number], [place]. tel:[phone] [facility], [address] [facility], [place], [place], [id number], [place] tel:[phone] [place] Encounter for rehabilitation evaluation 5 Uri Chiara. [address] [place], [place], [id number], [place]. tel:[phone] [facility], [address], [place], [place], [id number], [place] tel:[phone] [place] No Information 5 Idris Paul. [address] [place], [place], [id number], [place]. tel:[phone] [facility], [address] [facility], [place], [place], [id number], [place] tel:[phone] [place] Follow-up (chief complaint) Type 2 diabetes mellitus with hypoglycemia without coma, unspecified whether assistant terminal manager insulin useLong term (current) use of insulinLong term (current) use of oral hypoglycemic drugsVitamin D deficiencyHypercholeste remia Oct-0 4 Idris Paul. [address] [place], [place], [id number], [place]. tel:[phone] [facility], [address], [place], [place], [id number], [place] tel:[phone] [place] Encounter for rehabilitation evaluation 4 Uri Guadarrama. [address], [place], [place], [id number], [place]. tel:[phone] [facility], [address], [place], [place], [id number], [place] tel:[phone] [place] Muscle weakness (generalized) 4 Yen Bautista. [address] [place], [place], [id number], [place]. tel:[phone] [facility], [address], [place], [place], [id number], [place] tel:[phone] [place] Muscle weakness (generalized) 4 Yen Bautista. [address], [place], [place], [id number], [place]. tel:[phone] [facility], [address] [facility] [address] [facility], [place], [place], [id number], [place] tel:[phone] [place] Muscle weakness (generalized)Difficulty in walking, not elsewhere classified 4 Yen Bautista. [address], [place], [place], [id number], [place]. tel:[phone] [facility], [address] [facility] [address] [facility], [place], [place], [id number], [place] tel:[phone] [place] Muscle weakness (generalized) 4 Yen Bautista. [address], [place], [place], [id number], [place]. tel:[phone] [facility], [address], [place], [place], [id number], [place] tel:[phone] [place] PEE FUV #1 (chief complaint) HAYDEE on CPAPRestless leg syndromeHypercholestere miaChronic obstructive pulmonary disease, unspecified COPD type 4 Idris Paul. [address], [place], [place], [id number], [place]. tel:[phone] [facility], [address], [place], [place], [id number], [place] tel:[phone] [place] Follow-up (chief complaint) Muscle weakness (generalized) 4 Yen Bautista. [address], [place], [place], [id number], [place]. tel:[phone] [facility], [address], [place], [place], [id number], [place] tel:[phone] [place] Encounter for rehabilitation evaluation 4 Yen Bautista. [address] [place], [place], [id number], [place]. tel:[phone] [facility], [address], [place], [place], [id number], [place] tel:[phone] [place] Muscle weakness (generalized) 4 Yen Bautista. [address], [place], [place], [id number], [place]. tel:[phone] [facility], [address], [place], [place], [id number], [place] tel:[phone] [place] Muscle weakness (generalized) 4 Yen Bautista. [address], [place], [place], [id number], [place]. tel:[phone] [facility], [address], [place], [place], [id number], [place] tel:[phone] [place] Muscle weakness (generalized) 4 Yen Bautista. [address], [place], [place], [id number], [place]. tel:[phone] [facility], [address], [place], [place], [id number], [place] tel:[phone] [place] Muscle weakness (generalized) 4 Yen Bautista. [address], [place], [place], [id number], [place]. tel:[phone] [facility], [address], [place], [place], [id number], [place] tel:[phone] [place] Muscle weakness (generalized)Difficulty in walking, not elsewhere classified 4 Yen Bautista. [address] [place], [id number], [place]. tel:[phone] [facility], [address], [place], [place], [id number], [place] tel:[phone] [place] Muscle weakness (generalized) 4 Yen Bautista. [address] [facility] [place], [id number], [place]. tel:[phone] [facility], [address], [place], [place], [id number], [place] tel:[phone] [place] Encounter for rehabilitation evaluation 4 Uri Guadarrama. [address] [facility] [place], [id number], [place]. tel:[phone] [facility], [address], [place], [place], [id number], [place] tel:[phone] [place] Encounter for rehabilitation evaluation 4 Yen Bautista. [address] [place], [id number], [place]. tel:[phone] [facility], [address], [place], [place], [id number], [place] tel:[phone] [place] Encounter for nutritional assessmentClass 2 severe obesity with serious comorbidity and body mass index (BMI) of 39.0 to 39.9 in adult, unspecified obesity typeMorbid (severe) obesity due to excess caloriesBody mass index [BMI] 39.0-39.9, adult 4 Delon Clarke. [address] [place], [place], [id number], [place]. tel:[phone] [facility], [address], [place], [place], [id number], [place] tel:[phone] [place] No Information 4 Steinberg Beverly. [address] [place], [place], [id number], [place]. tel:[phone] [facility], [address] [address], [place], [place], [id number], [place] tel:[phone] [place] Post Enrollment Evaluation (chief complaint) Recurrent major depressive disorder, in partial remissionAtherosclerosi s of [place] coronary artery of [place] heart without angina pectorisOld myocardial infarctionStenosis of left subclavian arteryHypercholesteremi aType 2 diabetes mellitus with diabetic chronic kidney disease, unspecified CKD stage, unspecified whether assistant terminal manager insulin useStage 3 chronic kidney disease, unspecified whether stage 3a or 3b CKDLong term (current) use of insulinThyroid noduleBody mass index [BMI] 39.0-39.9, adultSevere obesity (BMI 35.0-39.9) with comorbidityExudative age-related macular degeneration, unspecified laterality, unspecified stageNonexudative age-related macular degeneration, unspecified laterality, unspecified stageGastroesophageal reflux disease without esophagitisDiverticulos is of colonHepatic steatosisCholelithiasis without cholecystitisUmbilical hernia without [...] (current) use of oral hypoglycemic drugs 4 Steinberg Beverly. [address] [place], [place], [id number], [place]. tel:[phone] [facility], [address] [address], [place], [place], [id number], [place] tel:[phone] [place] No Information 4 Steinberg Beverly. [address] [place], [place], [id number], [place]. tel:[phone] Family History Family Member Type Diagnosis Age At Onset No Information Immunizations Vaccine Date Status Comments Zoster recombinant subunit administered S ource: New Immunization Record Zoster recombinant subunit administered S ource: New Immunization Record Prevnar 20 administered Source: New Imm unization Record Fluzone [...] name Insurance type Covered alliance party ID Authoriza tion(s) [employer] 16 [id number] [employer] 16 [id number] [employer] 16 [id number] [employer] [id number] [facility] 16 [id number] Social History Type Description Quantity Date Captured Comments Sex Female Smoking Status No Information Chief Complaint And Reason For Visit No Information Plan Of Treatment Date Type Action Status Referral Ordered: dr solis -Ophthalmology (related to Age-related nuclear cataract, bilateral) ordered Referral Referred To: dr solis Ordered: Referrals: Ophthalmology. dr solis. Consult ordered Referral [facility]erred [facility]: [facility] [...] Follow-up and treat Appointment date/timeframe: 09/20/2024 ordered Appointment Lilli Eldridge BOOKED Future Order: Radiology Order CT Chest, low dose for lung screen, WITHOUT contrast ([id number]), Ordered on: Ordered Future Order: Radiology Order Po lysomnography, 4+ add'l params w/CPAP ([id number]), Ordered on: Ordered History Of Present Illness Encounter Date Complaint History Of Prese nt Illness SNF Admit Nam mendoza to experience ankle pain related to an infected wound, currently being treated with doxycycline. She describes the pain as throbbing and burning, with increased intensity at night, which is affecting her sleep. She recently started tizanidine for muscle spasms. Additionally, her insulin dose increased to 30 units once daily. There was no concern from nursing. Patient has no acute issues. SNF Follow-up Lilli is a 79 years old female who was seen for a SNF follow up visit at the [facility]. Pt was transferred over to this SNF from a different SNF. Pt was seen and evaluated in her room. She was lying comfortably in her bed. She states that her pain is well controlled and she does not have any concerns at this time. She had a follow up with Orthopedics this morning and was told that the injury is healing well and she is touch down weight bearing but not able to fully bear weight at this time. No concerns or complaints offered by the nursing staff. SNF Admit Lilli is a 79 year old female who is seen today at [facility] for an admission visit. Lilli arrived to the facility yesterday afternoon. In review of recent events, she sustained a fall on 07/21 with right trimalleolar ankle fracture now s/p surgical repair. She was at [facility] from 07/24 until 08/06 and there were some concerns with her care there so she was moved to [place] to be followed by our PACE providers. Lilli was seen at bedside this morning. She is calm, comfortable, reports her pain is manageable at present though notes overnight she has increased pain and sensitivity to her toes, noting when the sheet touches the toes of her right foot it causes great discomfort. She's been resting with the foot out of the sheets because of this. She is getting oxycodone with some effect. On exam, soft splint is CDI, +CMS. She has some mild wheezing, but no SOB/cough/crackles. She had not been getting her appropriate respiratory treatments at [facility], so they were restarted and began this morning. No other significant concerns when I saw her. Semi-Annual Patient was seen today for her ELZA in the office and was accompanied by her daughter who helps with hx. She started with [facility] in 08/2024. Does not attend day program. Currently lives on 3rd floor apt with significant other Jeffery, has an elevator, in [facility]. Information per collective, [facility], ppt, daughter PPt with no hospitalizations, SNF stays and falls in the last 6 months which is the longest whe had gone without going to the hospital and is very proud of this. Complaints/concerns: Overall ppt is doing great reporting she has lost [...] puffs o2 instead of continued flow but framing manager said she didn't quality. Educated and recommended [...] if needs new machine 5 years old. Kristian is very worried her vision. She has [...] to happen. She is on AREDS vitamins. Kristian just wants to know what to expect [...] ERS approved, she currently has one through [facility] ([facility]). She is approved for 1 [...] and daughter Vaccines: given shingrix by pcn [id number]:Mind: AxOx3, forgetful- blind versionMeds: Multiple meds working [...] and +s2Abd soft, non tender, non distended, +ufw8Inyj intact LE mild edema non pitting, +cms, [...] sleep study yesterday as planned per her framing manager to look at her oxygen needs. However [...] vit b12 and ropinirole. At this point p[place] is going to just do a overnight [...] fill sin gapsperrllscta bilaterally on 2l NC [id number] rate reg +s1 and +s2abd soft, nontender, nondistended, +[id number] LE edemacalm and cooperative Follow-up Post Enrollment Evaluation Patient was seen today for her PEE in th e office and was accompanied by her daughter who helps with hx. She started with [facility] in 08/2024. Does not attend day program. Currently lives on 3rd floor apt with significant other Jeffery, has an elevator, in [facility]. Information per collective, [facility], ppt, daughter PPt with 4 hospitalizations, 2 SNF stays and 1 fall in the last 6 months [facility] ED June 14, 2024 syncope, slurred speech, unsteady gait found to have left carotid artery occlusion causing hypotension want permissive htn, discharged June 15, 2024 to [facility] iron def anemia, +orthostatic hypotension, uti, and discharged from snf on jun 28, 2024 to [facility] AD[facility] 05/16/2024 fall, weakness, copd exacerbation, acute resp failure with hypoxia, haydee discharged to [facility] one May 23, 2024 and discharged from [facility] on June 11, 2024 to [facility] 04/29/2024 ED general weakness, n/v admitted [...] EEG done, Pt had incidental findings at [facility] of enlarged thyroid and L breast finding - outpt f/u recommended. Pt was d/c to rehab. discharged May 03, 2024 to [facility] ED 03/30/2024 fall, nasal bone fx [...] ERS approved, she currently has one through [facility] ([facility]). She is approved for 1 [...] AllergiesAdhesive BandageBee Stings (SWELLING AT SITE ONLY)Percocet 5/325Medications-ppt and daughter brought in med list which [...] Coronary artery diseaseBrother (abdi, )Vaccines: up to [id number]:Mind: AxOx3, forgetful- blind versionMeds: Multiple meds working [...] and +s2Abd soft, non tender, non distended, +qio8Wleq intact LE mild edema non pitting, +cms, warm feet, +pp, 10/10 microfilamentCalm and cooperative Instructions Date Instruction Additional Infor nikki Patient sustained a fall on 07/21 with right trimalleolar ankle fracture now s/p surgical repair. She was at [facility] from 07/24 until 08/06 and there were some concerns with her care there so she was moved to [place] to be followed by our PACE providers. Pain reasonably managed at present though increased sensitivity to her toes of right foot at night especially since her injury. Using oxycodone PRN with good effect. Also having spasms at times (mostly at night), will consider tizanidine if this continuesPT/OT to eval. F/U with Ortho as scheduledWill continue to monitor Related to Closed trimalleolar fracture of right ankle with routine healing, subsequent encounter -Recently, surgical site with Increased tenderness and drainage, infection suspected Doxy started and continued-Surgical site pain with neuropathic characteristics likely Postoperative neuropathic pain in the context of DMII. I will Initiate Gabapentin 100 mg PO at bedtime. Dose can be titrated as needed based on response and tolerability.-continue glycemic control and wound care Related to Closed trimalleolar fracture of right ankle with delayed healing, subsequent encounter -Former smoker with [id number]. quit after CVA (? about 2023). Related to Former smoker -Continue oxygen use 2L at rest, 3L with exertion. Related to Oxygen dependent -Longstanding histor y of COPD (confirmed with CT chest showing mild centrilobular emphysema), 50 pack year former smoker (quit after CVA). Tends to have exacerbation when triggered by viral illness. -Coexisting HAYDEE on CPAP.-Current regimen is Advair, Spiriva, Duoneb BID, and PRN Albuterol on top of that; on continuous oxygen 2L at rest and 3L with exertion. She was not receiving Spiriva at [facility] recently. Wheezing on exam today. Home regimen restarted. If she worsened, or has increased sputum/SOB, will treat for exacerbation. Related to Centrilobular emphysema -Sustained a fall on 07/21 with right trimalleolar ankle fracture now s/p surgical repair. She was at [facility] from 07/24 until 08/06 and there were some concerns with her care there so she was moved to [place] to be followed by our PACE providers. -Pain reasonable managed at present though increased sensitivity to her toes of right foot at night especially since her injury. Using oxycodone PRN with good effect. Also having spasms at times (mostly at night), will consider tizanidine if this continues (did not feel well on Flexeril in the past). -PT/OT to eval. -Ortho appt coming up 08/11/25. 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 [...] signs of parkinsons Related to Essential tremor kristian has had cva in p ast resulted in mild right side weakness that has not resolved although hard to tell for me. Brain mri [facility] 05/01/2024 no acute intracranial abnormalities, moderate underlying [...] Related to History of CVA (cerebrovascular accident) Hx of OAB trialed [facility] drugs saw [facility] which she no longer follows with on oxybutynin 5 mg ER daily and working well to reduce her visits to br. She still has nocturia and some incontinence but improved. However recently reports getting up every 1.5 hours no dysuria. Will go up to 10 mg daily and check cbc Related to OAB (overactive bladder) hx of hysterectomy b ut kept ovaries per ppt and family member. NO vaginal bleeding. Does not want to follow with senior receptionist. Ruben pain. Does not remember why she had this done. Seen on ct abd and pelvis imaging Related to History of hysterectomy abd ct 04/30/2024 [facility] per records diverticulosis without diverticulitis. Discussed high fiber diet and softer stools was on colase change to senna. Denies abd pain or issues with stools. Related to Diverticulosis of colon ct abd and pelvis 2023nothing visible on abddenies painno issues with bmsobserve Related to Umbilical hernia without obstruction and without gangrene hospitalization at [facility] had n/v found to have gastritis [...] Gastroesophageal reflux disease without esophagitis Abd ct hepatic steat osis, [facility] 04/30/2024iscussed weight lossdenies abd pain and no issues with stoolstaking minimal tylenol for pain Related to Hepatic steatosis Abd ct cholelithiasi s without evidence of cholecystitis [facility] 04/30/2024enies abd pain, n/v and tolerating fooddiscussed weight loss and reduce high fat diet Related to Cholelithiasis without cholecystitis Reports has wet and dry MD gets injections in left eye on areds vitamins used to followed with dr. holliday and now [facility] need notes. Denies retinopathy but in notes. Feels vision is getting worse. Left eye blurry and sometimes has a vail and minimal vision from right eye there is a big hole of vision sees [facility] centrally. Ppt wants to keep following up with [facility]. Ppt worried about what to expect with vision. She last got injections left eye on day 2024 and follow up in march 2025 Related to Exudative age-related macular degeneration, unspecified laterality, unspecified stage Reports has wet and dry MD gets injections in left eye on areds vitamins used to followed with dr. holliday and now [facility] need notes. Denies retinopathy but in notes. Feels vision is getting worse. Left eye blurry and sometimes has a vail and minimal vision from right eye there is a big hole of vision sees [facility] centrally. Ppt wants to keep following up with [facility]. Ppt worried about what to expect with vision. She last got injections left eye on paddy day 2024 and follow up in [...] COPD on o2, CAD S/P STENTS, NSTEMI, [id number] weight lossdiet and exercise follow with RDhas lost weight and eating better Related to Severe obesity (BMI 35.0-39.9) with comorbidity vit d was low 16 on pee started vit d and increased to 27 and then increased to vit d 2000 units and 41 in oct 2024 Related to Vitamin D deficiency mri [facility] 05/01/2024enl arged multinodular right thyroid gland08/09/2024 [facility] thyroid ultrasoundIMPRESSION: Right mid gland 1.9 cm [...] mellitus with hypoglycemia without coma, unspecified whether assistant terminal manager insulin use REduce lantus to 32 units at hs Related to detention (current) use of insulin PPt reports has [...] 500 mg BID. 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 Hx of jesus in past with gi [...] kidney disease, unspecified CKD stage, unspecified whether assistant terminal manager insulin use metormin 500 mg BID Related to L monica term (current) use of oral hypoglycemic drugs Lipid panel 08/2023 85/166/33/19 goal ldl per [...] to go down again Related to Hypercholesteremia [facility] dec 2022 syncope unclear etiology, likely deconditioning from recent hospitalization, oral orthostatic bp, severe left subclavian artery stenosis evaluated by [facility] surgery, has good brachial pulses and equal bilateral bps not contributing to symptoms, cta chest showed no pe, ct head showed no intracranial hemorrhageconsult [facility] 01/19/2023 incidental finding left [...] in march 2022Echo 02/23/2022 card report from [facility] dr. ngo TTE echoNormal LV systolic function with mild LVH with impaired relaxation filling pattern and elevated filling pressure. Normal cardiac valvular doppler, normal RV systolic pressure, no pericardial effusion. EF 55-60%, left atrium mildly dilated, Nuclear stress test [facility] shows ischemia/infarct pattern involving [...] well controlled today Related to Atherosclerosis of [place] coronary artery of [place] heart without angina pectoris Today bp was [...] one diastolic dysfunction elevated filling pressuresEcho 03/2024 [facility] left ventricular systolic function is normal. Visually estivated ej 55-60% no obvious valvular pathology seen evidence of grade 1 mild diastolic dysfunction and no regional wall motion abnormalities [facility] chronic diastolic chf hyperdynamic ejection fraction [...] one diastolic dysfunction elevated filling pressuresEcho 03/2024 [facility] left ventricular systolic function is normal. 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 cgmave sugar the last two psely791 and aver sugar every 6 hours starting [...] mellitus with hypoglycemia without coma, unspecified whether assistant terminal manager insulin use ppt with hx of COPD, 50 pack [...] Ct chest 01/15/2023 ed cough sob at [facility] acute hypoxic resp failure secondary to copd [...] on CPAP continue to follow w [employer] associate-cad s/p stents, stemi and framing manager copd on o2 with exacerbationdoes not want senior receptionist, mammography, dexa or colonoscopyokay with lung screening smoker many years has lung noduleswants to change his eye doctor to dr solis and follow with [facility] need dental exam need new denturesdnr and dnippt own personchange o2 company Related to Healthcare maintenance Ct chest ldct lung p rogram 02/23/2023 just had lung screening IMPRESSION: 1. [...] VSS.Ct chest 01/15/2023 ed cough sob at [facility] acute hypoxic resp failure secondary to copd [...] hard to tell for me. Brain mri [facility] 05/01/2024 no acute intracranial abnormalities, moderate underlying [...] bleeding. Does not want to follow with senior receptionist. Ruben vilchis. Does not remember why she had this done. Seen on ct abd and pelvis imaging Related to History of hysterectomy Hx of OAB trialed [facility] drugs saw [facility] which she no longer follows with [...] one diastolic dysfunction elevated filling pressuresEcho 03/2024 [facility] left ventricular systolic function is normal. Visually estivated ej 55-60% no obvious valvular pathology seen evidence of grade 1 mild diastolic dysfunction and no regional wall motion abnormalities [facility] chronic diastolic chf hyperdynamic ejection fraction [...] one diastolic dysfunction elevated filling pressuresEcho 03/2024 [facility] left ventricular systolic function is normal. Visually estivated ej 55-60% no obvious valvular pathology seen evidence of grade 1 mild diastolic dysfunction and no regional wall motion abnormalities [facility] chronic diastolic chf hyperdynamic ejection fraction [...] ct cholelithiasi s without evidence of cholecystitis [facility] 4denies abd pain, n/v and tolerating fooddiscussed weight loss and reduce high fat diet Related to Cholelithiasis without cholecystitis Abd ct hepatic steat osis, [facility] 04/30/2024iscussed weight lossdenies abd pain and no issues with stoolstaking minimal tylenol for pain Related to Hepatic steatosis abd ct 04/30/2024 [facility] per records diverticulosis without diverticulitis. Discussed high fiber diet and softer stools was on colase change to senna. Denies abd pain or issues with stools. Related to Diverticulosis of colon hospitalization at [facility] had n/v found to have gastritis [...] vitamins followed with dr. holliday and [facility] need notes. Denies retinopathy but in [...] vitamins followed with dr. holliday and [facility] need notes. Denies retinopathy but in [...] CKD, HAYDEE, COPD, CAD S/P STENTS, NSTEMI, [id number] weight lossdiet and exercise follow with RD Related to Severe obesity (BMI 35.0-39.9) with comorbidity bmi 39.1 Related to Body mass index [BMI] 39.0-39.9, adult mri [facility] 05/01/2024enl arged multinodular right thyroid gland08/09/2024 [facility] thyroid ultrasoundIMPRESSION: Right mid gland 1.9 cm TI-RADS Category 3 nodule. 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 Hx of jesus in past with gi [...] kidney disease, unspecified CKD stage, unspecified whether senior care insulin use Lipid panel 08/2023 85/166/33/19 goal ldl per cards less than 50 due to multiple tias, cva, cad s/p arcadio on zetia 10 mg daily and high intensity statin atorvastatin 80 mg daily. Will check lipid panel. Related to Hypercholesteremia [facility] dec 2022 syncope unclear etiology, likely deconditioning from recent hospitalization, oral orthostatic bp, severe left subclavian artery stenosis evaluated by [facility] surgery, has good brachial pulses and equal bilateral bps not contributing to symptoms, cta chest showed no pe, ct head showed no intracranial hemorrhageconsult [facility] 01/19/2023 incidental finding left [...] ure on year thinks it was around 2022currently with no chest pain and sob with exertion has copd on o2ppt was a smoker for many years, hld, t2dm at some points uncontrolled, significant complex cad with multiple stents last in march 2022Echo 02/23/2022 card report from [facility] [place]. ngo TTE echoNormal LV systolic function with mild LVH with impaired relaxation filling pattern and elevated filling pressure. Normal cardiac valvular doppler, normal RV systolic pressure, no pericardial effusion. EF 55-60%, left atrium mildly dilated, Nuclear stress test 02/23[facility]22 [facility] ischemia/infarct pattern involving [...] 60s no orthostasis Related to Atherosclerosis of [place] coronary artery of [place] heart without angina pectoris Hx of Major [...] Health Concern Goal Type Priority Status Date Dayna is reporting an increase in difficulty ambulating longer distances due to fatigue and visual changes. Lilli will be able to ambulate in the apt. with an oxygen level of greater than 90%. Lilli will ambulate daily in the hallway with her rollator and 1 rest with supervision assist. Lilli will be able to manage her O2 tubing independently. Patient Goal New Lilli is at risk for functional decline related to overactive bladder, Hx CVA, Hx AR, resting tremor, osteoarthritis, macular degeneration, diabetic retinopathy, [...]
[2025-08-25 14:33] VITALS: BP 160/58; PULSE 62; O2SAT 97
--- NOTE | 2025-08-25 14:33 | MHC.OFFVIS ---
Vital Signs 08/25/25 14:33 Height 4 ft 11 in BMI Reason not done Patient refused/unable BP 160/58 H Blood Pressure Location Rt brachial Position Sitting Pulse 62 Pulse Source Pulse Oximeter Pulse Oximetry (%) 97 Oxygen Delivery Method Nasal Cannula Oxygen Flow Rate 3 Intake Visit Reasons: COPD Allergies adhesive tape Allergy (Mild, Verified 08/25/25 14:38) Unknown bee pollen (bee stings) Allergy (Mild, Verified 08/25/25 14:38) Swelling oxycodone (OXYCODONE) Allergy (Mild, Verified 08/25/25 14:38) ITCHING, itchy prednisone Allergy (Verified 08/25/25 14:38) Unknown hydromorphone (From DILAUDID) Adverse Reaction (Mild, Verified 08/25/25 14:38) ITCHING HPI HPI COPD: Details: Lilli is a pleasant 79 year old female, former 50 pack year smoker, quit 15 years ago with underlying DMII, COPD, HFpEF, HAYDEE on CPAP ([facility]), PAD, TIA on plavix/ASA, CAD, and h/o acute hypoxic respiratory failure secondary to pulmonary edema as well as COPD exacerbation 04/2024. Since the last visit patient sustained right tibial fracture which occurred on July 21 when the patient experienced a sudden knee instability while standing in a doorway, leading to a crack sound and subsequent fracture. Surgery was performed on July 22, and the patient has been non-weight bearing on the affected leg since then. The patient reports intermittent soreness around the ankle area, described as a rash-like sensation, but denies severe pain requiring analgesics. The patient has a history of COPD, which was exacerbated postoperatively, requiring increased oxygen supplementation to 3 liters at rest and 4 liters with exertion. DME is [employer]. The patient was not adhering to inhaler use initially but reports improved symptoms after resuming proper inhaler use. The patient uses a nebulizer twice daily and daughter reports staff at [facility] noted inspiratory wheeze on recent respiratory examination. Postoperative pneumonia was suspected, and the patient was treated with a Z-Gavino at [place], followed by doxycycline for a surgical site infection discovered at [place], where she is currently staying until able to ambulate. The patient completed the antibiotic course and reports no current respiratory symptoms such as cough, wheezing or significant dyspnea. [facility] Medical History (Updated 08/25/25 @ 15:14 by Olya Bee NP) Stenosis of left subclavian artery Multiple falls Macular degeneration Overactive bladder Chest tightness Abnormal nuclear stress test Cataract HAYDEE on CPAP Mild anemia Hypercholesterolemia Resting tremor Osteoarthritis Unsteady gait Vertigo Sleep apnea Diabetic retinopathy Hiatal hernia Depression COPD (chronic obstructive pulmonary disease) CKD (chronic kidney disease) Orthostatic hypotension NSTEMI (non-ST elevated myocardial infarction) Syncope HLD (hyperlipidemia) CAD (coronary artery disease) High cholesterol Diabetes Heart attack Stroke Surgical History Status post cardiac catheterization History of cataract extraction Hx of colonoscopy Hx of vaginal hysterectomy Stented coronary artery History of cardiac catheterization Family History Father CVD (cardiovascular disease) Mother Brain aneurysm Social History Household Members: Significant Other Housing: Apartment Are you a primary healthcare business analyst to a significant other at home: No Do you presently have visiting nurse or other home services: Yes Alcohol intake: never Patient Tobacco Use Status: Former Tobacco user Tobacco use type: Cigarette Years Smoked: 50 e-Cigarette/Vaping Use: Former Use Second Hand Smoke Exposure: No Advance Directives Date on File: 01/18/23 service: No Current occupational status: retired Review of Systems Const Denies chills, Denies excessive sweating, Denies fever(s), Denies headache(s) and Denies night sweats Eyes Denies dry eyes, Denies irritation and Denies itchy eyes ENT Reports Normal hearing present, Denies headache(s), Denies nasal congestion, Denies nasal discharge, Denies post nasal drip and Denies sore throat Card Denies chest pain, Denies chest pain at rest, Denies chest pain with activity, Denies claudication, Reports dyspnea on exertion and Denies paroxysmal nocturnal dyspnea Resp Denies change in phlegm color, Denies chest congestion, Denies cough, Denies hemoptysis, Denies excessive phlegm production, Denies pain on inspiration, Denies pain with cough, Reports dyspnea on exertion, Denies stridor and Denies wheezing Musc Denies myalgias Neuro Reports Normal hearing present and Denies headache(s) Endo Denies excessive sweating Fahad/Lymph Denies lymphadenopathy Aller/Immun Denies itchy eyes, Denies seasonal rhinorrhea and Denies wheezing Physical Exam Vital Signs: Last Vital Signs Pulse 62 08/25/25 14:33 BP 160/58 H 08/25/25 14:33 Pulse Ox 97 08/25/25 14:33 Oxygen Delivery Method Nasal Cannula 08/25/25 14:33 Oxygen Flow Rate 3 08/25/25 14:33 Const Other: walking boot on RLE General: cooperative, comfortable, no acute distress, well developed and alert Nutritional Appearance: obese Orientation/consciousness: patient oriented x3 Limitations: ambulation with walker HEENT Head: Yes normal to inspection, Yes normocephalic and Yes atraumatic Ears: hearing grossly normal bilaterally and external ears normal Eyes General: appearance normal, both eyes and all related structures Eyelids: Yes eyelids normal Sclerae: sclerae normal EOM: EOMs intact bilaterally Neck Neck: Yes normal visual inspection and Yes no lymphadenopathy Lymphatic: no lymphadenopathy noted Chest Chest palpation & inspection: normal inspection of the chest Resp Effort & Inspection: normal respiratory effort, able to speak in complete sentences, no audible wheezes, no cough, no stridor, not tachypneic, no tripod positioning and no use of accessory muscles Auscultation: crackles bilateral 1/[address] way up and diminished lung sounds Cardio Jugular venous distension: no JVD Rate: regular rate Skin Other: warm, dry General skin exam: no rashes or lesions noted Neuro General: patient oriented x3 Cranial nerves: Yes Normal hearing present Cognition (Neuro): normal cognition Gait exam (Neuro): Assisted gait required Extrem Other: trace BLE edema Psych Appearance: grossly normal and well kempt Speech and movement: Normal speech and movement present and Clear speech present Affect: normal affect Attitude: cooperative Thought process: Normal thought process present Thought content: Normal thought content present Insight: Good insight present (Psych) Judgement: Good judgement present (Psych) Assessment & Plan Assessment & Plan (1) COPD (chronic obstructive pulmonary disease): Code(s): J44.9 - Chronic obstructive pulmonary disease, unspecified Category: Medical (2) Emphysema of lung: Code(s): J43.9 - Emphysema, unspecified Category: Medical (3) History of acute respiratory failure: Code(s): Z87.09 - Personal history of other diseases of the respiratory system Category: Medical (4) Pulmonary nodule: Code(s): R91.1 - Solitary pulmonary nodule Category: Medical Plan Discussed with the patient the importance of adhering to her respiratory medication regimen, including the use of Spiriva, Advair and nebulizers, to manage her COPD effectively. We reviewed the need for a chest x-ray and BNP to assess for fluid overload due to her history of congestive heart failure, in addition to inspiratory crackles on exam and the potential use of Lasix vs hospitalization if indicated. Encouraged patient to continue to use 2L with rest and 4L with exertion, as she noted during PT oxygen saturation decreased to 88% on 3L. All questions were answered and patient is in agreement of plan. Will follow up when patient is discharged from SNF in 6-8 weeks or sooner if needed. Orders: Orders NT Pro B Type Natriuretic Pept 08/25/25 R09.89 - Other specified symptoms and signs involving the circulatory and respiratory systems Blood Urea Nitrogen 08/25/25 Z01.818 - Encounter for other preprocedural examination XR chest 2V 08/25/25 R09.89 - Other specified symptoms and signs involving the circulatory and respiratory systems Creatinine 08/25/25 Z01.818 - Encounter for other preprocedural examination Coding Level of Care Code Est Pt Level 4 (55062) Complex EM visit Add On G2211 Diagnoses COPD (chronic obstructive pulmonary disease) J44.9 Emphysema of lung J43.9 History of acute respiratory failure Z87.09 Pulmonary nodule R91.1
--- OUTSIDE RECORDS SUMMARY | 2025-08-25 16:56 | XMS_ITS | Encounter Summary ---
Author Organization [facility] Address [address] [place] [address] Care Team Providers Care Manager Of Allied Health Services Name Role Phone Yong Dodson MD Primary Care Provider [phone] Encounter Details Date Type Department Care Team (Late st Contact Info) Description 08/18/[address] [facility] - Main Lab [address] [place] [address] Yong Dodson MD [address] [facility] [address] [place], [phone] Unspecified infectious disease Social History Tobacco Use Types Packs/Day Years Used Date Smoking Tobacco: Never Assessed Comments Unknown Sex and Gender Information Value Date Recorded Sex Assigned at Not on file Legal Sex Female 9:52 PM EST Gender Identity Not on file Sexual Orientation Not on file documented as of this encounter Plan of Treatment Not on file documented as of this encounter Procedures Procedure Name Priority Date/Time Associated Diagnosis Comments COMPLETE BLOOD COUNT Routine 08/18/2025 6:33 AM EDT Unspecified infectious disease documented in this encounter Results * (ABNORMAL) Complete blood count (08/18/2025 6:33 AM EDT) WBC 8.6 4.8 - 10.8 K/mcL LAB HEMETOLOGY METHOD 08/18/2025 12:11 PM EDT [facility] RBC 3.60(L) 3.80 - 4.80 M/mcL LAB HEMETOLOGY METHOD 08/18/2025 12:11 PM EDT [facility] Hemoglobin 10.6(L) 11.5 - 16.0 g/dL LAB HEMETOLOGY METHOD 08/18/2025 12:11 PM EDT [facility] Hematocrit 34.6(L) 35.0 - 47.0 % LAB HEMETOLOGY METHOD 08/18/2025 12:11 PM EDT [facility] MCV 96.1 79.0 - 98.0 FL LAB HEMETOLOGY METHOD 08/18/2025 12:11 PM EDT [facility] MCH 29.4 27.0 - 32.0 pcg LAB HEMETOLOGY METHOD 08/18/2025 12:11 PM EDT [facility] MCHC 30.6(L) 32.0 - 37.0 g/dL LAB HEMETOLOGY METHOD 08/18/2025 12:11 PM EDT [facility] RDW 14.2 11.0 - 15.0 % LAB HEMETOLOGY METHOD 08/18/2025 12:11 PM EDT [facility] Platelets 224 130 - 400 K/mcL LAB HEMETOLOGY METHOD 08/18/2025 12:11 PM EDT [facility] MPV 11.4(H) 7.0 - 11.0 FL LAB HEMETOLOGY METHOD 08/18/2025 12:11 PM EDT [facility] NRBC 0.0 <1.0 % LAB HEMETOLOGY METHOD 08/18/2025 12:11 PM EDT [facility] NRBC Absolute 0.00 <0.10 K/mcL LAB HEMETOLOGY METHOD 08/18/2025 12:11 PM EDT [facility] Blood Venous blood specimen / Unknown Venipuncture / Unknown 08/18/2025 6:33 AM EDT 08/18/2025 11:01 AM EDT us Yong Dodson MD LAB BLOOD ORDERABLES Final Resul t [facility] [address] [place], [place] [address] [phone] documented in this encounter Visit Diagnoses Diagnosis Unspecified infectious disease documented in this encounter Care Teams Manager Of Allied Health Services Relationship Specialty Start Date End Date Yong Dodson MD [address] [place] [address], [phone] PCP - General Family Medicine 07/25/25 documented as of this encounter
--- OUTSIDE RECORDS SUMMARY | 2025-08-25 16:56 | XMS_ITS | Encounter Summary ---
Author Organization [facility] Address [address] [place] [address] Care Team Providers Care Account Executive Name Role Phone Yong Dodson MD Primary Care Provider Encounter Details Date Type Department Care Team (Late st Contact Info) Description 07/26/2025 Lab Requisition [facility] - Main Lab [address] [place] [address] Yong Dodson MD [address] [facility] [address] [place], [phone] Chronic obstructive pulmonary disease, unspecified (CMS/HCC V24, CMS/HCC V28) Social History Tobacco Use Types Packs/Day Years [...] Associated Diagnosis Comments COMPLETE BLOOD COUNT Routine 07/28/2025 6:20 AM EDT Chronic obstructive pulmonary disease, unspecified (CMS/HCC V24, CMS/HCC V28) BASIC METABOLIC PANEL Routine 07/28/2025 6:20 AM EDT Chronic obstructive pulmonary disease, unspecified (CMS/HCC V24, CMS/HCC V28) documented in this encounter Results * (ABNORMAL) Basic metabolic panel (07/28/2025 6:20 AM EDT) Sodium 140 133 - 145 mmol/L LAB CHEMISTRY METHOD 07/28/2025 12:29 PM EDT [facility] Potassium 4.4 3.5 - 5.5 mmol/L LAB CHEMISTRY METHOD 07/28/2025 12:29 PM [facility] Chloride 104 96 - 110 mmol/L LAB CHEMISTRY METHOD 07/28/2025 12:29 PM [facility] CO2 28 21 - 32 mmol/L LAB CHEMISTRY METHOD 07/28/2025 12:29 PM [facility] Anion Gap 8 3 - 11 LAB CHEMISTRY METHOD 07/28/2025 12:29 PM [facility] Glucose 177(H) 70 - 100 mg/dL LAB CHEMISTRY METHOD 07/28/2025 12:29 PM [facility] BUN 29(H) 5 - 25 mg/dL LAB CHEMISTRY METHOD 07/28/2025 12:29 PM [facility] Creatinine 1.09 0.50 - 1.10 mg/dL LAB CHEMISTRY METHOD 07/28/2025 12:29 PM [facility] eGFR 52(L) >=60 mL/min/1. 73m2 LAB CHEMISTRY METHOD 07/28/2025 12:29 PM [facility] Comment:Calculation based on the Chronic Kidney Disease Epidemiology Collaboration (CKD-EPI) equation refit without adjustment for race. BUN/Creatinine Ratio 26.6 LAB CHEMISTRY METHOD 07/28/2025 12:29 PM [facility] Calcium 9.0 8.5 - 10.5 mg/dL LAB CHEMISTRY METHOD 07/28/2025 12:29 PM [facility] Blood Venous blood specimen / Unknown Venipuncture / Unknown 07/28/2025 6:20 AM EDT 07/28/2025 10:56 AM EDT us Yong Dodson MD LAB BLOOD ORDERABLES Final Resul t [facility] [address] [place] [address], [place] [phone] * (ABNORMAL) Complete blood count (07/28/2025 6:20 AM EDT) [facility] WBC 8.7 4.8 - 10.8 K/mcL LAB HEMETOLOGY METHOD 07/28/2025 11:28 AM [facility] RBC 3.30(L) 3.80 - 4.80 M/mcL LAB HEMETOLOGY METHOD 07/28/2025 11:28 AM [facility] Hemoglobin 9.8(L) 11.5 - 16.0 g/dL LAB HEMETOLOGY METHOD 07/28/2025 11:28 AM [facility] Hematocrit 32.5(L) 35.0 - 47.0 % LAB HEMETOLOGY METHOD 07/28/2025 11:28 AM [facility] MCV 98.8(H) 79.0 - 98.0 FL LAB HEMETOLOGY METHOD 07/28/2025 11:28 AM [facility] MCH 29.8 27.0 - 32.0 pcg LAB HEMETOLOGY METHOD 07/28/2025 11:28 AM [facility] MCHC 30.2(L) 32.0 - 37.0 g/dL LAB HEMETOLOGY METHOD 07/28/2025 11:28 AM [facility] RDW 14.4 11.0 - 15.0 % LAB HEMETOLOGY METHOD 07/28/2025 11:28 AM [facility] Platelets 213 130 - 400 K/mcL LAB HEMETOLOGY METHOD 07/28/2025 11:28 AM [facility] MPV 11.8(H) 7.0 - 11.0 FL LAB HEMETOLOGY METHOD 07/28/2025 11:28 AM [facility] NRBC 0.0 <1.0 % LAB HEMETOLOGY METHOD 07/28/2025 11:28 AM EDT [facility] NRBC Absolute 0.00 <0.10 K/mcL LAB HEMETOLOGY METHOD 07/28/2025 11:28 AM EDT [facility] Blood Venous blood specimen / Unknown Venipuncture / Unknown 07/28/2025 6:20 AM EDT 07/28/2025 10:56 AM EDT us Yong Dodson MD LAB BLOOD ORDERABLES Final Resul t [facility] [address] [place] [address], documented in this encounter Visit Diagnoses Diagnosis Chronic obstructive pulmonary disease, unspecified (CMS/HCC V24, CMS/HCC V28) documented in this encounter Care Teams Account Executive Relationship Specialty Start Date End Date Yong Dodson MD [address] [place] [address], [phone] PCP - General Family Medicine 07/25/25 documented as of this encounter
--- OUTSIDE RECORDS SUMMARY | 2025-08-25 16:56 | XMS_ITS | Encounter Summary ---
Author Organization [facility] Address [address] [place] [address] Care Team Providers Care Panelbeater Name Role Phone Yong Dodson MD Primary Care Provider [phone] Encounter Details Date Type Department Care Team (Late st Contact Info) Description 07/25/2025 Lab Requisition [facility] - Main Lab [address] [place] [address] Yong Dodson MD [address] [facility] [address] [place], [phone] Chronic obstructive pulmonary disease, unspecified (CMS/HCC [...] Associated Diagnosis Comments COMPLETE BLOOD COUNT Routine 07/25/2025 5:24 AM EDT Chronic obstructive pulmonary disease, unspecified (CMS/HCC V24, CMS/HCC V28) COMPREHENSIVE METABOLIC PANEL Routine 07/25/2025 5:24 AM EDT Chronic obstructive pulmonary disease, unspecified (CMS/HCC V24, CMS/HCC V28) documented in this encounter Results * (ABNORMAL) Comprehensive metabolic panel (07/25/2025 5:24 AM EDT) Sodium 135 133 - 145 mmol/L LAB CHEMISTRY METHOD 07/25/2025 9:28 AM EDT [facility] Potassium 4.6 3.5 - 5.5 mmol/L LAB CHEMISTRY METHOD 07/25/2025 9:28 AM [facility] Chloride 100 96 - 110 mmol/L LAB CHEMISTRY METHOD 07/25/2025 9:28 AM [facility] CO2 29 21 - 32 mmol/L LAB CHEMISTRY METHOD 07/25/2025 9:28 AM [facility] Anion Gap 6 3 - 11 LAB CHEMISTRY METHOD 07/25/2025 9:28 AM [facility] Glucose 199(H) 70 - 100 mg/dL LAB CHEMISTRY METHOD 07/25/2025 9:28 AM [facility] BUN 31(H) 5 - 25 mg/dL LAB CHEMISTRY METHOD 07/25/2025 9:28 AM [facility] Creatinine 1.37(H) 0.50 - 1.10 mg/dL LAB CHEMISTRY METHOD 07/25/2025 9:28 AM [facility] eGFR 39(L) >=60 mL/min/1. 73m2 LAB CHEMISTRY METHOD 07/25/2025 9:28 AM [facility] Comment:Calculation based on the Chronic Kidney Disease Epidemiology Collaboration (CKD-EPI) equation refit without adjustment for race. BUN/Creatinine Ratio 22.6 LAB CHEMISTRY METHOD 07/25/2025 9:28 AM [facility] Calcium 9.4 8.5 - 10.5 mg/dL LAB CHEMISTRY METHOD 07/25/2025 9:28 AM [facility] AST (SGOT) 29 10 - 42 unit/L LAB CHEMISTRY METHOD 07/25/2025 9:28 AM [facility] ALT (SGPT) 11 10 - 60 unit/L LAB CHEMISTRY METHOD 07/25/2025 9:28 AM [facility] Alkaline Phosphatase 105 42 - 121 unit/L LAB CHEMISTRY METHOD 07/25/2025 9:28 AM [facility] Total Protein 5.9(L) 6.0 - 8.0 g/dL LAB CHEMISTRY METHOD 07/25/2025 9:28 AM EDT [facility] Albumin 2.7(L) 3.2 - 5.0 g/dL LAB CHEMISTRY METHOD 07/25/2025 9:28 AM EDT [facility] Total Bilirubin 0.5 0.0 - 1.4 mg/dL LAB CHEMISTRY METHOD 07/25/2025 9:28 AM EDT [facility] Blood Venous blood specimen / Unknown Venipuncture / Unknown 07/25/2025 5:24 AM EDT 07/25/2025 8:29 AM EDT us Yong Dodson MD LAB BLOOD ORDERABLES Final Resul t [facility] [address] [place] [address], * (ABNORMAL) Complete blood count (07/25/2025 5:24 AM EDT) WBC 10.7 4.8 - 10.8 K/mcL LAB HEMETOLOGY METHOD 07/25/2025 8:52 AM [facility] RBC 3.30(L) 3.80 - 4.80 M/mcL LAB HEMETOLOGY METHOD 07/25/2025 8:52 AM EDT [facility] Hemoglobin 9.9(L) 11.5 - 16.0 g/dL LAB HEMETOLOGY METHOD 07/25/2025 8:52 AM EDT [facility] Hematocrit 32.6(L) 35.0 - 47.0 % LAB HEMETOLOGY METHOD 07/25/2025 8:52 AM EDT [facility] MCV 97.6 79.0 - 98.0 FL LAB HEMETOLOGY METHOD 07/25/2025 8:52 AM EDT [facility] MCH 29.6 27.0 - 32.0 pcg LAB HEMETOLOGY METHOD 07/25/2025 8:52 AM EDT [facility] MCHC 30.4(L) 32.0 - 37.0 g/dL LAB HEMETOLOGY METHOD 07/25/2025 8:52 AM EDT [facility] RDW 14.5 11.0 - 15.0 % LAB HEMETOLOGY METHOD 07/25/2025 8:52 AM EDT [facility] Platelets 171 130 - 400 K/mcL LAB HEMETOLOGY METHOD 07/25/2025 8:52 AM EDT [facility] MPV 12.0(H) 7.0 - 11.0 FL LAB HEMETOLOGY METHOD 07/25/2025 8:52 AM EDT [facility] NRBC 0.0 <1.0 % LAB HEMETOLOGY METHOD 07/25/2025 8:52 AM EDT [facility] NRBC Absolute 0.00 <0.10 K/mcL LAB HEMETOLOGY METHOD 07/25/2025 8:52 AM T [facility] Blood Venous blood specimen / Unknown Venipuncture / Unknown 07/25/2025 5:24 AM EDT 07/25/2025 8:29 AM EDT us Yong Dodson MD LAB BLOOD ORDERABLES Final Resul t [facility] [address] [place] [address], documented in this encounter Visit Diagnoses Diagnosis Chronic obstructive pulmonary disease, unspecified (CMS/HCC V24, CMS/HCC V28) documented in this encounter Care Teams Panelbeater Relationship Specialty Start Date End Date Yong Dodson MD [address] [place] [address], [phone] PCP - General Family Medicine 07/25/25 documented as of this encounter
--- OUTSIDE RECORDS SUMMARY | 2025-08-25 16:56 | XMS_ITS ---
Author Organization [facility] on Care Team Providers Care Blunger Name Role Phone Migdalia Barahona Unavailable Unavailable Alivia Villa Unavailable Unavailable [place] An Unavailable Unavailable Jamaal Gupta Unavailable Unavailable Carmelita Green Unavailable Unavailable Allergies and adverse reactions Code CodeSystem Substance Reaction Severity StartDate Concern Status 8640 RXNORM predniSONE Unknown 05/23/2024 active 7804 RXNORM oxyCODONE Moderate 05/23/2024 active 3423 RXNORM HYDROmorphone Unknown 05/23/2024 active bee pollen Unknown 05/23/2024 active ADHESIVE Unknown 05/23/2024 active Care Team Name Role Address Phone Organization Dates Migdalia Barahona PCP [address] [place] [address], [place], [address], [place] (Office): : [facility] 06/15/2024 - 06/28/2024 Alivia Villa [address] [place], [address], [place] (Office): [facility] 06/15/2024 - 06/28/2024 [place] [address] [place] [address], [address], [place] (Office): [facility] 06/15/2024 - 06/28/2024 Jamaal Alonso [address] [place], [address], [place] (Office): [facility] 06/15/2024 - 06/28/2024 Carmelita Green [address] [place] [address], [address], [place] (Office): : [facility] 06/15/2024 - 06/28/2024 Immunizations Immunization Status Vaccine Details Vaccine Code CodeSystem Date Notes Zostavax(Shingle s) completed zoster vaccine, live 121 CVX created date: 05/24/2024 administer ed date: 07/21/2017 Prevnar 20 Pneumococcal conjugate (PCV20) cancelled Pneumococcal conjugate vaccine 20-valent (PCV20), polysaccharide [id number] conjugate, adjuvant, preservative free 216 CVX created date: 05/24/2024 consent date: 05/24/2024 Educated by on 05/23/2024 RSV, recombinant, protein subunit RSVpreF, adjuvant rec new Respiratory syncytial virus (RSV), vaccine, recombinant, protein subunit RSV prefusion F, adjuvant reconstituted, 0.5 mL, preservative free 303 CVX created date: 06/17/2024 consent date: 06/17/2024 Educated by Iris Morales RN on 06/17/2024 Tdap completed tetanus toxoid, reduced diphtheria toxoid, and acellular pertussis vaccine, adsorbed 115 CVX created date: 05/24/2024 administer ed date: 03/30/2024 COVID-19, mRNA, LNP-S, PF, 100 mcg/0.5mL dose or 50 mcg/0.25mL dose completed SARS-COV-2 (COVID-19) vaccine, mRNA, spike protein, LNP, preservative free, 100 mcg/0.5mL dose or 50 mcg/0.25mL dose Mfg: KAYAK 207 CVX created date: 05/24/2024 administer ed date: 09/29/2021 Influenza, high dose seasonal completed Influenza, high-dose, split virus, trivalent, injectable, preservative free 135 CVX created date: 05/24/2024 administer ed date: 09/01/2023 COVID-19, mRNA, LNP-S, PF, 50 mcg/0.5 mL completed SARS-COV-2 (COVID-19) vaccine, mRNA, spike protein, LNP, preservative free, 50 mcg/0.5 mL dose Mfg: KAYAK 312 CVX created date: 05/24/2024 administer ed date: 01/19/2021 COVID-19, mRNA, LNP-S, PF, 50 mcg/0.5 mL completed SARS-COV-2 (COVID-19) vaccine, mRNA, spike protein, LNP, preservative free, 50 mcg/0.5 mL dose Mfg: KAYAK 312 CVX created date: 05/24/2024 administer ed date: 12/28/2020 COVID-19 vaccine, vector-nr, rS-Ad26, PF, 0.5 mL cancelled SARS-COV-2 (COVID-19) vaccine, mRNA, spike protein, LNP, preservative free, 50 mcg/0.5 mL dose 312 CVX created date: 05/24/2024 consent date: 05/24/2024 Educated by on 05/23/2024 Mental Status Section Date Assessment Total Score Description 06/28/2024 BIMS 15 cognitively int act CAM 0 No delirium ind icated PHQ-9 01 minimal depress ion 06/21/2024 BIMS 15 cognitively int act CAM 0 No delirium ind icated PHQ-9 06 mild depression Insurance Providers Problems Problem # Description Date of onset Resolved Date Code CodeSystem Concern Status 1 OVERACTIVE BLADDER 06/16/2024 444382293 SNOMED C T active 2 UNSPECIFIED MACULAR DEGENERATION 06/16/[address] active 3 CHRONIC OBSTRUCTIVE PULMONARY DISEASE, UNSPECIFIED 06/15/[address] active 4 CHRONIC RESPIRATORY FAILURE WITH HYPOXIA 06/15/[address] active 5 HYPERLIPIDEMIA, UNSPECIFIED 06/15/[address] active 6 IRON DEFICIENCY ANEMIA, UNSPECIFIED 06/15/[address] active 7 MAJOR DEPRESSIVE DISORDER, RECURRENT, UNSPECIFIED 06/15/[address] active 8 MORBID (SEVERE) OBESITY DUE TO EXCESS CALORIES 06/15/[address] active 9 OBSTRUCTIVE SLEEP APNEA (ADULT) (PEDIATRIC) 06/15/[address] active 10 OCCLUSION AND STENOSIS OF LEFT CAROTID ARTERY 06/15/[address] active 11 ORTHOSTATIC HYPOTENSION 06/15/[address] active 12 PERIPHERAL VASCULAR DISEASE, UNSPECIFIED 06/15/[address] active 13 RESTLESS LEGS SYNDROME 06/15/[address] active 14 TRANSIENT CEREBRAL ISCHEMIC ATTACK, UNSPECIFIED 06/15/[address] active 15 TREMOR, UNSPECIFIED 06/15/[address] active 16 TYPE 2 DIABETES MELLITUS WITHOUT COMPLICATIONS 06/15/[address] active 17 UNSPECIFIED DIASTOLIC (CONGESTIVE) HEART FAILURE 06/15/[address] active 18 URINARY TRACT INFECTION, SITE NOT SPECIFIED 06/15/[address] active 19 ACUTE RESPIRATORY FAILURE WITH HYPOXIA 05/23/2024 06/15/[address] completed 20 ANEMIA, UNSPECIFIED 05/23/2024 06/15/[address] completed 21 CHRONIC OBSTRUCTIVE PULMONARY DISEASE WITH (ACUTE) EXACERBATION 05/23/2024 06/15/[address] completed 22 CHRONIC SYSTOLIC (CONGESTIVE) HEART FAILURE 05/23/2024 06/15/[address] completed 23 HYPERLIPIDEMIA, UNSPECIFIED 05/23/2024 06/15/[address] completed 24 MAJOR DEPRESSIVE DISORDER, RECURRENT, UNSPECIFIED 05/23/2024 06/15/[address] completed 25 MORBID (SEVERE) OBESITY DUE TO EXCESS CALORIES 05/23/2024 06/15/[address] completed 26 OBSTRUCTIVE SLEEP APNEA (ADULT) (PEDIATRIC) 05/23/2024 06/15/[address] completed 27 PERIPHERAL VASCULAR DISEASE, UNSPECIFIED 05/23/2024 06/15/[address] completed 28 TRANSIENT CEREBRAL ISCHEMIC ATTACK, UNSPECIFIED 05/23/2024 06/15/[address] completed 29 TYPE 2 DIABETES MELLITUS WITHOUT COMPLICATIONS 05/23/2024 06/15/[address] completed Reason for Referral No Reasons for Referral Entered Social History Social History Observation Description Start Date End Date Code Code System Current Smoking Status Tobacco smoking consumption unknown 732154694 SNOMED CT Sex Assigned At Female 1945 84325-5 [facility] Gender Identity Female [id number] Sexual Orientation Vital Signs Code Code System Vitals Name Values and Units Timing Information 2339-0 [facility] Blood Sugar Ughfi=696.0 Units=mg/dL 06/28/2024 10644-1 [facility] Pain Level Value=0.0 06/28/2024 9279-1 [facility] Respiratory Rate Value=17.0 Units=/m in 06/28/2024 8462-4 [facility] Blood Pressure-Diastolic Value=45 Un its=mmHg 06/28/2024 8480-6 [facility] Blood Pressure-Systolic Fztwo=507 Un its=mmHg 06/28/2024 8310-5 [facility] Body Temperature Value=97.2 Units= F 06/28/2024 8867-4 [facility] Heart rate Value=64.0 Units=/min 07/2024 66156-4 [facility] O2 % BldC Oximetry Value=97.0 Units= % 06/28/2024 44046-1 [facility] Weight Lzdmt=339.0 Units=Lbs 05/2024 8302-2 [facility] Height Value=59.0 Units=Inches 05/28/2024
--- OUTSIDE RECORDS SUMMARY | 2025-08-25 16:56 | XMS_ITS | Encounter Summary ---
Author Organization [facility] Address [address] [place] [address] Care Team Providers Care Campaign Marketing Manager Name Role Phone Yong Dodson MD Primary Care Provider [phone] Encounter Details Date Type Department Care Team (Late st Contact Info) Description 08/03/2025 Lab Requisition [facility] - Main Lab [address] [place] [address] Yong Dodson MD [address] [facility] [address] [place], [address] Chronic obstructive pulmonary disease, unspecified (CMS/HCC [...] Associated Diagnosis Comments COMPLETE BLOOD COUNT Routine 08/04/2025 6:15 AM EDT Chronic obstructive pulmonary disease, unspecified (CMS/HCC V24, CMS/HCC V28) BASIC METABOLIC PANEL Routine 08/04/2025 6:15 AM EDT Chronic obstructive pulmonary disease, unspecified (CMS/HCC V24, CMS/HCC V28) documented in this encounter Results * (ABNORMAL) Basic metabolic panel (08/04/2025 6:15 AM EDT) Sodium 138 133 - 145 mmol/L LAB CHEMISTRY METHOD 08/04/2025 12:39 PM EDT [facility] Potassium 4.2 3.5 - 5.5 mmol/L LAB CHEMISTRY METHOD 08/04/2025 12:39 PM [facility] Chloride 103 96 - 110 mmol/L LAB CHEMISTRY METHOD 08/04/2025 12:39 PM [facility] CO2 25 21 - 32 mmol/L LAB CHEMISTRY METHOD 08/04/2025 12:39 PM [facility] Anion Gap 10 3 - 11 LAB CHEMISTRY METHOD 08/04/2025 12:39 PM [facility] Glucose 181(H) 70 - 100 mg/dL LAB CHEMISTRY METHOD 08/04/2025 12:39 PM [facility] BUN 22 5 - 25 mg/dL LAB CHEMISTRY METHOD 08/04/2025 12:39 PM [facility] Creatinine 0.89 0.50 - 1.10 mg/dL LAB CHEMISTRY METHOD 08/04/2025 12:39 PM [facility] eGFR 66 >=60 mL/min/1. 73m2 LAB CHEMISTRY METHOD 08/04/2025 12:39 PM [facility] Comment:Calculation based on the Chronic Kidney Disease Epidemiology Collaboration (CKD-EPI) equation refit without adjustment for race. BUN/Creatinine Ratio 24.7 LAB CHEMISTRY METHOD 08/04/2025 12:39 PM [facility] Calcium 9.5 8.5 - 10.5 mg/dL LAB CHEMISTRY METHOD 08/04/2025 12:39 PM [facility] Blood Venous blood specimen / Unknown Venipuncture / Unknown 08/04/2025 6:15 AM EDT 08/04/2025 10:56 AM EDT us Yong Dodson MD LAB BLOOD ORDERABLES Final Resul t [facility] [address] [place] [address], [place] [phone] * (ABNORMAL) Complete blood count (08/04/2025 6:15 AM EDT) [facility] WBC 12.4(H) 4.8 - 10.8 K/mcL LAB HEMETOLOGY METHOD 08/04/2025 1:04 PM [facility] RBC 3.60(L) 3.80 - 4.80 M/mcL LAB HEMETOLOGY METHOD [facility] Hemoglobin 10.6(L) 11.5 - 16.0 g/dL LAB HEMETOLOGY METHOD 08/04/2025 1:04 PM [facility] Hematocrit 34.7(L) 35.0 - 47.0 % LAB HEMETOLOGY METHOD 08/04/2025 1:04 PM [facility] MCV 97.5 79.0 - 98.0 FL LAB HEMETOLOGY METHOD [facility]/04[facility]2025 [facility] MCH 29.8 27.0 - 32.0 pcg LAB HEMETOLOGY METHOD 08/04/2025 1:04 PM [facility] MCHC 30.5(L) 32.0 - 37.0 g/dL LAB HEMETOLOGY METHOD 08/04/2025 1:04 PM [facility] RDW 14.6 11.0 - 15.0 % LAB HEMETOLOGY METHOD 08/04/2025 1:04 PM [facility] Platelets 274 130 - 400 K/mcL LAB HEMETOLOGY METHOD 08/04/2025 1:04 PM [facility] MPV 10.7 7.0 - 11.0 FL LAB HEMETOLOGY METHOD 08/04/2025 1:04 PM [facility] NRBC 0.0 <1.0 % LAB HEMETOLOGY METHOD 08/04/2025 1:[facility] NRBC Absolute 0.00 <0.10 K/mcL LAB HEMETOLOGY METHOD 08/04/2025 1:04 PM EDT [facility] Blood Venous blood specimen / Unknown Venipuncture / Unknown 08/04/2025 6:15 AM EDT 08/04/2025 10:56 AM EDT us Yong Dodson MD LAB BLOOD ORDERABLES Final Resul t [facility] [address] [place] [address], documented in this encounter Visit Diagnoses Diagnosis Chronic obstructive pulmonary disease, unspecified (CMS/HCC V24, CMS/HCC V28) documented in this encounter Care Teams Campaign Marketing Manager Relationship Specialty Start Date End Date Yong Dodson MD [address] [place] [phone] PCP - General Family Medicine 07/25/25 documented as of this encounter
--- OUTSIDE RECORDS SUMMARY | 2025-08-25 16:56 | XMS_ITS | Encounter Summary ---
Author Organization [facility] Address [address] [place] [address] Care Team Providers Care Shorts Sifter Name Role Phone Yong Dodson MD Primary Care Provider [phone] Encounter Details Date Type Department Care Team (Late st Contact Info) Description 08/08/2025 Lab Requisition [facility] - Main Lab [address] [facility] [place] [address] Yong Dodson MD [address] [place] [address] [address] [place], [address] Chronic obstructive pulmonary disease, unspecified (CMS/HCC [...] on file documented as of this encounter Visit Diagnoses Diagnosis Chronic obstructive pulmonary disease, unspecified (CMS/HCC V24, CMS/HCC V28) documented in this encounter Care Teams Shorts Sifter Relationship Specialty Start Date End Date Yong Dodson MD [address] [place] [address] [address] [place], [address] PCP - General Family Medicine 07/25/25 documented as of this encounter
--- OUTSIDE RECORDS SUMMARY | 2025-08-25 16:56 | XMS_ITS | Encounter Summary ---
Author Organization [facility] Address [address] [place] [address] Care Team Providers Care Physics Tutor Name Role Phone Yong Dodson MD Primary Care Provider [phone] Encounter Details Date Type Department Care Team (Late st Contact Info) Description 08/02/2025 Lab Requisition [facility] - Main Lab [address] [facility] [place] [address] Yong Dodson MD [address] [place] [address] [address] [facility], [address] Chronic kidney disease, stage 3a (CMS/HCC V24, CMS/HCC V28) Social History Tobacco [...] Associated Diagnosis Comments COMPLETE BLOOD COUNT Routine 08/02/2025 12:29 PM EDT Chronic kidney disease, stage 3a (CMS/HCC V24, CMS/HCC V28) LIPASE Routine 08/02/2025 12:29 PM EDT Chronic kidney disease, stage 3a (CMS/HCC V24, CMS/HCC V28) AMYLASE Routine 08/02/2025 12:29 PM EDT Chronic kidney disease, stage 3a (CMS/HCC V24, CMS/HCC V28) COMPREHENSIVE METABOLIC PANEL Routine 08/02/2025 12:29 PM EDT Chronic kidney disease, stage 3a (CMS/HCC V24, CMS/HCC V28) documented in this encounter Results * Lipase (08/02/2025 12:29 PM EDT) Pathologist [facility] Lipase 54 13 - 75 unit/L LAB CHEMISTRY METHOD 08/02/2025 1:34 PM EDT [facility] Blood Venous blood specimen / Unknown Venipuncture / Unknown 08/02/2025 12:29 PM EDT 08/02/2025 12:53 PM EDT Yong Dodson MD LAB BLOOD ORDERABLES Final Resul t Performing Organization Address City/[facility]/ZIP Co de Phone Number [facility] [address] [place] [address], [place] [phone] * Amylase (08/02/2025 12:29 PM EDT) [facility] Amylase 45 25 - 115 unit/L LAB CHEMISTRY METHOD 08/02/2025 1:34 PM EDT [facility] Blood Venous blood specimen / Unknown Venipuncture / Unknown 08/02/2025 12:29 PM EDT 08/02/2025 12:53 PM EDT Yong Dodson MD LAB BLOOD ORDERABLES Final Resul t Performing Organization Address City/[facility]/ZIP Co de Phone Number [facility] [address] [place] [address], [place] [phone] * (ABNORMAL) Comprehensive metabolic panel (08/02/2025 12:29 PM EDT) Pathologist [facility] Sodium 138 133 - 145 mmol/L LAB CHEMISTRY METHOD 08/02/2025 1:34 PM EDT [facility] Potassium 4.6 3.5 - 5.5 mmol/L LAB CHEMISTRY METHOD 08/02/2025 1:34 PM EDT [facility] Chloride 102 96 - 110 mmol/L LAB CHEMISTRY METHOD 08/02/2025 1:34 PM [facility] CO2 26 21 - 32 mmol/L LAB CHEMISTRY METHOD 08/02/2025 1:34 PM [facility] Anion Gap 10 3 - 11 LAB CHEMISTRY METHOD 08/02/2025 1:34 PM [facility] Glucose 294(H) 70 - 100 mg/dL LAB CHEMISTRY METHOD 08/02/2025 1:34 PM [facility] BUN 17 5 - 25 mg/dL LAB CHEMISTRY METHOD 08/02/2025 1:34 PM [facility] Creatinine 1.04 0.50 - 1.10 mg/dL LAB CHEMISTRY METHOD 08/02/2025 1:34 PM [facility] eGFR 55(L) >=60 mL/min/1. 73m2 LAB CHEMISTRY METHOD 08/02/2025 1:34 PM [facility] Comment:Calculation based on the Chronic Kidney Disease Epidemiology Collaboration (CKD-EPI) equation refit without adjustment for race. BUN/Creatinine Ratio 16.3 LAB CHEMISTRY METHOD 08/02/2025 1:34 PM [facility] Calcium 9.1 8.5 - 10.5 mg/dL LAB CHEMISTRY METHOD 08/02/2025 1:34 PM [facility] AST (SGOT) 15 10 - 42 unit/L LAB CHEMISTRY METHOD 08/02/2025 1:34 PM [facility] ALT (SGPT) 15 10 - 60 unit/L LAB CHEMISTRY METHOD 08/02/2025 1:34 PM [facility] Alkaline Phosphatase 119 42 - 121 unit/L LAB CHEMISTRY METHOD 08/02/2025 1:34 PM [facility] Total Protein 6.3 6.0 - 8.0 g/dL LAB CHEMISTRY METHOD 08/02/2025 1:34 PM [facility] Albumin 2.8(L) 3.2 - 5.0 g/dL LAB CHEMISTRY METHOD 08/02/2025 1:34 PM EDT [facility] Total Bilirubin 0.6 0.0 - 1.4 mg/dL LAB CHEMISTRY METHOD 08/02/2025 1:34 PM EDT [facility] Blood Venous blood specimen / Unknown Venipuncture / Unknown 08/02/2025 12:29 PM EDT 08/02/2025 12:53 PM EDT us Yong Dodson MD LAB BLOOD ORDERABLES Final Resul t [facility] [address] [place] [address], [place] [phone] * (ABNORMAL) Complete blood count (08/02/2025 12:29 PM EDT) WBC 12.1(H) 4.8 - 10.8 K/mcL LAB HEMETOLOGY METHOD 08/02/2025 1:30 PM EDT [facility] RBC 3.70(L) 3.80 - 4.80 M/mcL LAB HEMETOLOGY METHOD 08/02/2025 1:30 PM EDT [facility] Hemoglobin 11.0(L) 11.5 - 16.0 g/dL LAB HEMETOLOGY METHOD 08/02/2025 1:30 PM EDT [facility] Hematocrit 35.7 35.0 - 47.0 % LAB HEMETOLOGY METHOD 08/02/2025 1:30 PM EDT [facility] MCV 97.3 79.0 - 98.0 FL LAB HEMETOLOGY METHOD 08/02/2025 1:30 PM EDT [facility] MCH 30.0 27.0 - 32.0 pcg LAB HEMETOLOGY METHOD 08/02/2025 1:30 PM EDT [facility] MCHC 30.8(L) 32.0 - 37.0 g/dL LAB HEMETOLOGY METHOD 08/02/2025 1:30 PM EDT [facility] RDW 14.5 11.0 - 15.0 % LAB HEMETOLOGY METHOD 08/02/2025 1:30 PM EDT [facility] Platelets 267 130 - 400 K/mcL LAB HEMETOLOGY METHOD 08/02/2025 1:30 PM EDT [facility] MPV 10.9 7.0 - 11.0 FL LAB HEMETOLOGY METHOD 08/02/2025 1:30 PM EDT [facility] NRBC 0.0 <1.0 % LAB HEMETOLOGY METHOD 08/02/2025 1:30 PM EDT [facility] NRBC Absolute 0.00 <0.10 K/mcL LAB HEMETOLOGY METHOD 08/02/2025 1:30 PM EDT [facility] Blood Venous blood specimen / Unknown Venipuncture / Unknown 08/02/2025 12:29 PM EDT 08/02/2025 12:53 PM EDT us Yong Dodson MD LAB BLOOD ORDERABLES Final Resul t [facility] [address] [place] [address], documented in this encounter Visit Diagnoses Diagnosis Chronic kidney disease, stage 3a (CMS/HCC V24, CMS/HCC V28) documented in this encounter Care Teams Physics Tutor Relationship Specialty Start Date End Date Yong Dodson MD [address] [place] [address], [address] PCP - General Family Medicine 07/25/25 documented as of this encounter
--- OUTSIDE RECORDS SUMMARY | 2025-08-25 16:56 | XMS_ITS | Patient Health Record ---
Author Organization [facility] Address [address] [place] [address] Care Team Providers Care Medical Dir Name Role Phone Nahid Waterman MD Primary Care Provider Deni Chacon Unavailable [phone] Allergies Allergen (clinical drug ingredient) Drug/Non Drug Allergy documented on EMR Reaction Allergy Type Onset Date Status Adhesive Tape red , itchy at site Drug Allergy Active Bee Sting Unknown Allergy Active Reason For Referral No Information Medications Medication SIG (Take, Route, Frequency, Duration) Notes Start Date End Date Status metFORMIN HCl 500 MG 1 tablet with meals Orally Twice a day Active Levemir Not-Taking Atorvastatin Calcium 80 MG 1 tablet Orally Once a day Active Colace 100 MG 1 capsule as needed Orally twice a day Not-Taking Extra-Depth Diabetic Shoes with 3 Pair Custom heat-molded multi-density innersoles . for 1 year . Dx:Hav with preulcerative skin lesions; Duration: . 08/17/2015 Active Citalopram & Diet Manage Prod Not-Taking Losartan Potassium A ctive Chantix 1 MG 1 tablet Orally Twic e a day Not-Taking Lantus Not-Taking oxyBUTYnin Chloride Active amLODIPine Besylate 10 MG 1 tablet Orally Once a day; Duration: 30 day(s) Active Aggrenox Active Plavix 75 MG 1 tablet Orally Once a day Not-Taking Zetia Active Aspirin Adult Low Strength 81 MG 1 tablet Orally Once a day Not-Taking FLUoxetine HCl Activ e Lisinopril 5 MG 1 tablet Orally Once a day Not-Taking Basaglar Sergei Act craig Immunizations Vaccine Route Administration Date Status Comme nts Influenza Unknown 08/16/2016 Administered Influenza Unknown 09/05/2017 Administered Influenza Unknown 10/03/2018 Refused Influenza Unknown 08/19/2019 Administered Pneumococcal Unknown 09/17/2013 Administered Social History Tobacco Use: Social History Observation Description Date Details (start date - stop date) Never Smoker NA - NA Tobacco Use/Smoking Question Answer Notes Are you a: nonsmoker Additional Findings: Tobacco Non-User Current no n-smoker Tobacco use other than smoking: Question Answer Notes Are you an other tobacco user? No Section Notes: quit smoking quit smoking quit smoking quit smoking quit smoking quit smoking quit smoking quit smoking quit smoking quit smoking quit smoking quit smoking quit smoking Plan Of Treatment Pending Test Test Name Order Date Glucose Fasting 08/17/2015 [id number] NAIL, 6 OR MORE 11/09/2015 88170-[id number] NAIL, 6 OR MORE 08/17/2015 66973-TIAWQWE NAIL, 6 OR MORE 02/11/2016 02609-RUWDNAX NAIL, 6 OR MORE 12/19/2016 88155-NNWEIHU NAIL, 6 OR MORE 03/16/2017 86684-MHGENOC NAIL, 6 OR MORE 06/22/2017 75788-ABXBKIB NAIL, 6 OR MORE 09/21/2017 16670-IJCTXVR NAIL, 6 OR MORE 12/21/2017 09235-[id number] NAIL, 6 OR MORE 03/21/2018 77475-EMYEAZD NAIL, 6 OR MORE 10/03/2018 10630-Vjjuzoss Plate 08/17/2015 75709-EMFB SKIN LESIONS, OVER 4 12/19/19 17 08651-FHLW SKIN LESIONS, OVER 4 03/21/20 18 57198-FBKQ SKIN LESIONS, OVER 4 03/16/20 17 04883-VYNO SKIN LESIONS, OVER 4 06/22/20 17 22506-NTBL SKIN LESIONS, OVER 4 10/03/20 18 64622-MPZF SKIN LESIONS, 2 TO 4 08/19/20 19 49955-TCCQ SKIN LESIONS, 2 TO 4 01/20/20 20 03845-GZNJ SKIN LESIONS, 2 TO 4 05/11/20 20 69933-UPAS SKIN LESIONS, 2 TO 4 08/24/20 20 52495-MJLA SKIN LESIONS, 2 TO 4 09/21/20 17 00752-MOEG SKIN LESIONS, 2 TO 4 12/21/19 18 53570-DIEV SKIN LESIONS, 2 TO 4 02/11/20 16 70598-BMRW SKIN LESIONS, 2 TO 4 08/17/20 15 18362-FMPK SKIN LESIONS, 2 TO 4 11/09/20 15 67536-XGBLBRWX OF HEMATOMA/FLUID 019 Insurance Providers Payer Name Payer Address Payer Phone Subscriber Number Group Number Insured Name Patient Relationship to Insured Coverage Start Date Coverage End Date Medicare [employer] [address] [place] [address] [id number] Lilli Yepez Self - patient is the insured 3 Medical (General) History Medical History History ICD Code Anemia Arthritis Cholesterol Diabetic Diverticulosis Headaches Migraines High blood pressure Lung disease Macular degeneration Stroke Measles Chicken pox Surgical History Surgery Date(Month/Year) hysterectomy 30 years ago cyst removal 30 years ago section 1974 Hospitalization History Reason Date(Month/Year) [facility]- stent put in on right side [facility] [place] [facility]- 3 months 05/05/2019 [facility] [place] - 2 stents put in on left side 11/07
--- OUTSIDE RECORDS SUMMARY | 2025-08-25 16:56 | XMS_ITS | Clinical Summary ---
Author Organization [address] Address [address] [place] [phone] Phone Care Team Providers Care Radiology Resident Name Role Phone Yong Dodson MD Primary Care Provider [phone] Encounters Date Type Department Care Team Description 08/18/2025 Lab Requisition [facility] Lab [address] [place] [phone] Yong Dodson MD Unspecified infectious disease 08/08/2025 Lab Requisition [facility] Lab [address] [place] [phone] Yong Dodson MD Chronic obstructive pulmonary disease, unspecified (CMS/HCC V24, CMS/HCC V28) 08/04/2025 Lab Requisition [facility] Lab [address] [place] [phone] Yong Dodson MD Chronic kidney disease, stage 3a (CMS/HCC V24, CMS/HCC V28); Altered mental status, unspecified 08/03/2025 Lab Requisition [facility] Lab [address] [place] [phone] Yong Dodson MD Chronic obstructive pulmonary disease, unspecified (CMS/HCC V24, CMS/HCC V28) 08/02/2025 Lab Requisition [facility] Lab [address] [place] [phone] Yong Dodson MD Chronic kidney disease, stage 3a (CMS/HCC V24, CMS/HCC V28) 07/26/2025 Lab Requisition [facility] Lab [address] [place] [phone] Yong Dodson MD Chronic obstructive pulmonary disease, unspecified ([facility] V24, [facility] V28) 07/25/2025 Lab Requisition [facility] Lab [address] [facility] [place] [phone] Yong Dodson MD Chronic obstructive pulmonary disease, unspecified ([facility] V24, [facility] V28) from Last 3 Months Social History Tobacco Use Types Packs/Day Years Used Date Smoking Tobacco: Never Assessed Comments Unknown Sex and Gender Information Value Date Recorded Sex Assigned at Not on file Legal Sex Female 9:52 PM EST Gender Identity Not on file Sexual Orientation Not on file Plan of Treatment Health Maintenance Due Date Last Done Comments DTaP,Tdap,and Td Vaccines (1 - Tdap) 1964 Pneumococcal Vaccine: 50+ Ye ars (1 of 2 - PCV) 1964 Zoster Vaccines (1 of 2) 1995 RSV Immunization Adult Patie nts (1 - 1-dose 75+ series) 2020 Depression Screening 11/20/2024 COVID-19 Vaccine (1 - 2023-2 5 season) 2025 Influenza Vaccine (#1) 2025 Falls Risk Assessment 07/25/2025 Hepatitis C Screening 07/25/2025 Medicare Annual Wellness Visit 07/25/2025 Osteoporosis Screening (Bone Density Screening) 07/25/2025 Social Influencers of Health Screening 07/25/2025 HIB Vaccines Aged Out No longer eligi ble based on patient's age to complete this topic HPV Vaccines Aged Out No longer eligi ble based on patient's age to complete this topic Hepatitis A Vaccines Aged Out No long er eligible based on patient's age to complete this topic Hepatitis B Vaccines Aged Out No long er eligible based on patient's age to complete this topic IPV Vaccines Aged Out No longer eligi ble based on patient's age to complete this topic MMR Vaccines Aged Out No longer eligi ble based on patient's age to complete this topic Meningococcal ACWY Vaccine Aged Out N o longer eligible based on patient's age to complete this topic Meningococcal B Vaccine Aged Out No l onger eligible based on patient's age to complete this topic RSV Immunization Patients Un sonny 20 months Aged Out No longer eligible b ased on patient's age to complete this topic Varicella Vaccines Aged Out No longer eligible based on patient's age to complete this topic Procedures Procedure Name Priority Date/Time Associated Diagnosis Comments COMPLETE BLOOD COUNT Routine 08/18/2025 6:33 AM EDT Unspecified infectious disease BASIC METABOLIC PANEL Routine 08/04/2025 6:15 AM EDT Chronic obstructive pulmonary disease, unspecified (CMS/HCC V24, CMS/HCC V28) COMPLETE BLOOD COUNT Routine 08/04/2025 6:15 AM EDT Chronic obstructive pulmonary disease, unspecified (CMS/HCC V24, CMS/HCC V28) URINALYSIS WITH REFLEX MICROSCOPIC AND CULTURE Routine 08/03/2025 3:00 PM EDT Chronic kidney disease, stage 3a (CMS/HCC V24, CMS/HCC V28) Altered mental status, unspecified MAZARIEGOS URINE CULTURE TUBE Routine 08/03/2025 3:00 PM EDT Chronic kidney disease, stage 3a (CMS/HCC V24, CMS/HCC V28) Altered mental status, unspecified URINALYSIS WITH REFLEX MICROSCOPIC AND CULTURE Routine 08/03/2025 3:00 PM EDT Chronic kidney disease, stage 3a (CMS/HCC V24, CMS/HCC V28) Altered mental status, unspecified LIPASE Routine 08/02/2025 12:29 PM EDT Chronic kidney disease, stage 3a (CMS/HCC V24, CMS/HCC V28) AMYLASE Routine 08/02/2025 12:29 PM EDT Chronic kidney disease, stage 3a (CMS/HCC V24, CMS/HCC V28) COMPREHENSIVE METABOLIC PANEL Routine 08/02/2025 12:29 PM EDT Chronic kidney disease, stage 3a (CMS/HCC V24, CMS/HCC V28) COMPLETE BLOOD COUNT Routine 08/02/2025 12:29 PM EDT Chronic kidney disease, stage 3a (CMS/HCC V24, CMS/HCC V28) BASIC METABOLIC PANEL Routine 07/28/2025 6:20 AM EDT Chronic obstructive pulmonary disease, unspecified (CMS/HCC V24, CMS/HCC V28) COMPLETE BLOOD COUNT Routine 07/28/2025 6:20 AM EDT Chronic obstructive pulmonary disease, unspecified (CMS/HCC V24, CMS/HCC V28) COMPREHENSIVE METABOLIC PANEL Routine 07/25/2025 5:24 AM EDT Chronic obstructive pulmonary disease, unspecified (CMS/HCC V24, CMS/HCC V28) COMPLETE BLOOD COUNT Routine 07/25/2025 5:24 AM EDT Chronic obstructive pulmonary disease, unspecified (CMS/HCC V24, CMS/HCC V28) from Last 3 Months Results * (ABNORMAL) Complete blood count (08/18/2025 6:33 AM EDT) Only the most recent of5 resultswithin the time period is included. WBC 8.6 4.8 - 10.8 K/mcL LAB HEMETOLOGY METHOD 08/18/2025 12:11 PM [facility] RBC 3.60(L) 3.80 - 4.80 M/mcL LAB HEMETOLOGY METHOD 08/18/2025 12:11 PM [facility] Hemoglobin 10.6(L) 11.5 - 16.0 g/dL LAB HEMETOLOGY METHOD 08/18/2025 12:11 PM [facility] Hematocrit 34.6(L) 35.0 - 47.0 % LAB HEMETOLOGY METHOD 08/18/2025 12:11 PM [facility] MCV 96.1 79.0 - 98.0 FL LAB HEMETOLOGY METHOD 08/18/2025 12:11 PM [facility] MCH 29.4 27.0 - 32.0 pcg LAB HEMETOLOGY METHOD 08/18/2025 12:11 PM EDT [facility] MCHC 30.6(L) 32.0 - 37.0 g/dL LAB HEMETOLOGY METHOD 08/18/2025 12:11 PM EDT [facility] RDW 14.2 11.0 - 15.0 % LAB HEMETOLOGY METHOD 08/18/2025 12:11 PM EDT [facility] Platelets 224 130 - 400 K/mcL LAB HEMETOLOGY METHOD 08/18/2025 12:11 PM EDT [facility] MPV 11.4(H) 7.0 - 11.0 FL LAB HEMETOLOGY METHOD 08/18/2025 12:11 PM EDT [facility] NRBC 0.0 <1.0 % LAB HEMETOLOGY METHOD 08/18/2025 12:11 PM EDT [facility] NRBC Absolute 0.00 <0.10 K/mcL LAB HEMETOLOGY METHOD 08/18/2025 12:11 PM EDT [facility] Blood Venous blood specimen / Unknown Venipuncture / Unknown 08/18/2025 6:33 AM EDT 08/18/2025 11:01 AM EDT us Yong Dodson MD LAB BLOOD ORDERABLES Final Resul t [facility] [address] [place] [address], * (ABNORMAL) Basic metabolic panel (08/04/2025 6:15 AM EDT) Only the most recent of2 resultswithin the time period is included. Sodium 138 133 - 145 mmol/L LAB CHEMISTRY METHOD 08/04/2025 12:39 PM EDT [facility] Potassium 4.2 3.5 - 5.5 mmol/L LAB CHEMISTRY METHOD 08/04/2025 12:39 PM [facility] Chloride 103 96 - 110 mmol/L LAB CHEMISTRY METHOD 08/04/2025 12:39 PM [facility] CO2 25 21 - 32 mmol/L LAB CHEMISTRY METHOD 08/04/2025 12:39 PM [facility] Anion Gap 10 3 - 11 LAB CHEMISTRY METHOD 08/04/2025 12:39 PM [facility] Glucose 181(H) 70 - 100 mg/dL LAB CHEMISTRY METHOD 08/04/2025 12:39 PM [facility] BUN 22 5 - 25 mg/dL LAB CHEMISTRY METHOD 08/04/2025 12:39 PM [facility] Creatinine 0.89 0.50 - 1.10 mg/dL LAB CHEMISTRY METHOD 08/04/2025 12:39 PM [facility] eGFR 66 >=60 mL/min/1. 73m2 LAB CHEMISTRY METHOD 08/04/2025 12:39 PM [facility] Comment:Calculation based on the Chronic Kidney Disease Epidemiology Collaboration (CKD-EPI) equation refit without adjustment for race. BUN/Creatinine Ratio 24.7 LAB CHEMISTRY METHOD 08/04/2025 12:39 PM [facility] Calcium 9.5 8.5 - 10.5 mg/dL LAB CHEMISTRY METHOD 08/04/2025 12:39 PM [facility] Blood Venous blood specimen / Unknown Venipuncture / Unknown 08/04/2025 6:15 AM EDT 08/04/2025 10:56 AM EDT us Yong Dodson MD LAB BLOOD ORDERABLES Final Resul t [facility] [address] [place] [address], [place] [phone] * (ABNORMAL) Urinalysis with reflex microscopic and culture (08/03/2025 3:00 PM EDT) Specific [place] Urine 1.020 1.003 - 1.030 LAB URINALYSIS - AUTOMATED METHOD 08/04/2025 11:52 AM [facility] pH, Urine 5.5 5.0 - 8.0 pH LAB URINALYSIS - AUTOMATED METHOD 08/04/2025 11:52 AM [facility] Leukocytes, Urine Negative Negative LAB URINALYSIS - AUTOMATED METHOD 08/04/2025 11:52 AM [facility] Nitrite, Urine Negative Negative LAB URINALYSIS - AUTOMATED METHOD 08/04/2025 11:52 AM [facility] Protein, Urine >=1000(A) <=Trace mg/dL LAB URINALYSIS - AUTOMATED METHOD 08/04/2025 11:52 AM [facility] Glucose, Urine 100(A) Negative mg/dL LAB URINALYSIS - AUTOMATED METHOD 08/04/2025 11:52 AM [facility] Ketones, Urine Negative Negative mg/dL LAB URINALYSIS - AUTOMATED METHOD 08/04/2025 11:52 AM [facility] Urobilinogen , Urine 0.2 0.2 - 1.0 mg/dL LAB URINALYSIS - AUTOMATED METHOD 08/04/2025 11:52 AM [facility] Bilirubin, Urine Negative Negative LAB URINALYSIS - AUTOMATED METHOD 08/04/2025 11:52 AM [facility] Blood, Urine Negative Negative LAB URINALYSIS - AUTOMATED METHOD 08/04/2025 11:52 AM [facility] RBC, Urine 1.8 0 - 4 /HPF LAB URINALYSIS - AUTOMATED METHOD 08/04/2025 11:52 AM [facility] WBC, Urine 1.4 0 - 4 /HPF LAB URINALYSIS - AUTOMATED METHOD 08/04/2025 11:52 AM EDT [facility] Squamous Epithelial, Urine 30 0 - 60 /LPF LAB URINALYSIS - AUTOMATED METHOD 08/04/2025 11:52 AM EDT [facility] Bacteria, Urine Negative Negative /HPF LAB URINALYSIS - AUTOMATED METHOD 08/04/2025 11:52 AM EDT [facility] Hyaline Casts, Urine 1.6 0 - 3 /LPF LAB URINALYSIS - AUTOMATED METHOD 08/04/2025 11:52 AM EDT [facility] Urine Urinary bladder structure / Unknown 08/03/2025 3:00 PM EDT 08/04/2025 11:39 AM EDT Yong Dodson MD LAB URINE ORDERABLES Final Resul t Performing Organization Address [facility]/[facility] Co de Phone Number [facility] [address] [place] [address], [place] [phone] * Mazariegos urine culture tube (08/03/2025 3:00 PM EDT) Extra Tube Hold for add-ons. 08/04/2025 1:01 PM EDT [facility] Comment:Auto resulted. Urine Urinary bladder structure / Unknown 08/03/2025 3:00 PM EDT 08/04/2025 11:39 AM EDT Yong Dodson MD LAB URINE ORDERABLES Final Resul t Performing Organization Address City/[facility]/ZIP Co de Phone Number [facility] [address] [place] [address], [place] [phone] * Lipase (08/02/2025 12:29 PM EDT) Lipase 54 13 - 75 unit/L LAB CHEMISTRY METHOD 08/02/2025 1:34 PM EDT [facility] Blood Venous blood specimen / Unknown Venipuncture / Unknown 08/02/2025 12:29 PM EDT 08/02/2025 12:53 PM EDT Yong Dodson MD LAB BLOOD ORDERABLES Final Resul t Performing Organization Address City/[facility]/ZIP Co de Phone Number [facility] [address] [place] [address], [place] [phone] * Amylase (08/02/2025 12:29 PM EDT) Pathologist [facility] Amylase 45 25 - 115 unit/L LAB CHEMISTRY METHOD 08/02/2025 1:34 PM EDT [facility] Blood Venous blood specimen / Unknown Venipuncture / Unknown 08/02/2025 12:29 PM EDT 08/02/2025 12:53 PM EDT Yong Dodson MD LAB BLOOD ORDERABLES Final Resul t Performing Organization Address City/[facility]/ZIP Co de Phone Number [facility] [address] [place] [address], [place] [phone] * (ABNORMAL) Comprehensive metabolic panel (08/02/2025 12:29 PM EDT) Only the most recent of2 resultswithin the time period is included. Pathologist [facility] Sodium 138 133 - 145 mmol/L LAB CHEMISTRY METHOD 08/02/2025 1:34 PM EDT [facility] Potassium 4.6 3.5 - 5.5 mmol/L LAB CHEMISTRY METHOD 08/02/2025 1:34 PM EDT [facility] Chloride 102 96 - 110 mmol/L LAB CHEMISTRY METHOD 08/02/2025 1:34 PM EDT [facility] CO2 26 21 - 32 mmol/L LAB CHEMISTRY METHOD 08/02/2025 1:34 PM EDT [facility] Anion Gap 10 3 - 11 LAB CHEMISTRY METHOD 08/02/2025 1:34 PM EDT [facility] Glucose 294(H) 70 - 100 mg/dL LAB CHEMISTRY METHOD 08/02/2025 1:34 PM [facility] BUN 17 5 - 25 mg/dL LAB CHEMISTRY METHOD 08/02/2025 1:34 PM [facility] Creatinine 1.04 0.50 - 1.10 mg/dL LAB CHEMISTRY METHOD 08/02/2025 1:34 PM [facility] eGFR 55(L) >=60 mL/min/1. 73m2 LAB CHEMISTRY METHOD 08/02/2025 1:34 PM [facility] Comment:Calculation based on the Chronic Kidney Disease Epidemiology Collaboration (CKD-EPI) equation refit without adjustment for race. BUN/Creatinine Ratio 16.3 LAB CHEMISTRY METHOD 08/02/2025 1:34 PM [facility] Calcium 9.1 8.5 - 10.5 mg/dL LAB CHEMISTRY METHOD 08/02/2025 1:34 PM [facility] AST (SGOT) 15 10 - 42 unit/L LAB CHEMISTRY METHOD 08/02/2025 1:34 PM [facility] ALT (SGPT) 15 10 - 60 unit/L LAB CHEMISTRY METHOD 08/02/2025 1:34 PM [facility] Alkaline Phosphatase 119 42 - 121 unit/L LAB CHEMISTRY METHOD 08/02/2025 1:34 PM [facility] Total Protein 6.3 6.0 - 8.0 g/dL LAB CHEMISTRY METHOD 08/02/2025 1:34 PM [facility] Albumin 2.8(L) 3.2 - 5.0 g/dL LAB CHEMISTRY METHOD 08/02/2025 1:34 PM [facility] Total Bilirubin 0.6 0.0 - 1.4 mg/dL LAB CHEMISTRY METHOD 08/02/2025 1:34 PM [facility] Blood Venous blood specimen / Unknown Venipuncture / Unknown 08/02/2025 12:29 PM EDT 08/02/2025 12:53 PM EDT Yong Dodson MD LAB BLOOD ORDERABLES Final Resul t [facility] [address] [place] [address], [place] [phone] from Last 3 Months Insurance MEDICAID - [place] [facility] MEDICARE ADVANTAGE Care Teams Radiology Resident Relationship Specialty Start Date End Date Yong Dodson MD [address] [place] [address], [phone] PCP - General Family Medicine 07/25/25
--- OUTSIDE RECORDS SUMMARY | 2025-08-25 16:56 | XMS_ITS | Clinical Summary ---
Author Organization [facility] Address [address] [place] [phone] Phone Care Team Providers Care Manager Programs Name Role Phone Pcp, Unknown Primary Care Provider Migdalia Wing MD Unavailable [phone] Social History Tobacco Use Types Packs/Day Years Used Date Smoking Tobacco: Never Assessed Education Answer Date Recorded Are you interested in more education? Not on ricardo e 05/27/2024 Are you concerned about learning? Not on file 05/27/2024 No 05/27/2024 No 05/27/2024 Digital Access Answer Date Recorded No 05/27/2024 No 05/27/2024 Reliable internet access at home? Not on file 05/27/2024 Device with a working camera? Not on file Comments Unknown Sex and Gender Information Value Date Recorded Sex Assigned at Not on file Legal Sex Female 3:09 PM EDT Gender Identity Not on file Sexual Orientation Not on file Plan of Treatment Not on file Medical Devices Not on file Insurance MEDICARE PART A & [place] & [place] & [place] MEDICARE PART A & [place] MEDICARE PART A & B MEDICARE PART A & B MEDICARE PART A & B MEDICARE PART A & [place] PART A & B MEDICARE PART A & B [facility] MEDICARE PART A & B MEDICARE PART A & B MEDICARE PART A & B MEDICARE PART A & B MEDICARE PART A & B MEDICARE PART A & B MEDICARE PART A & B Care Teams Manager Programs Relationship Specialty Start Date End Date Pcp, Unknown PCP - General 05/24/24 Migdalia Barahona MD [address] [place] [id number] [email or web address] Internal Medicine 05/24/24 Additional Source Comments The information contained in this document represents components of the legal health record. It is not the complete legal health record.[facility]
--- OUTSIDE RECORDS SUMMARY | 2025-08-25 16:56 | XMS_ITS | Encounter Summary ---
Author Organization [facility] Address [address] [place] [address] Care Team Providers Care Reel Cart Operator Name Role Phone Yong Dodson MD Primary Care Provider [phone] Encounter Details Date Type Department Care Team (Late st Contact Info) Description 08/04/2025 Lab Requisition [facility] Lab [address] [facility] [place] [address] Yong Dodson MD [address] [place] [address] [address] [place], [phone] Chronic kidney disease, stage 3a (CMS/HCC V24, CMS/HCC V28); Altered mental status, unspecified Social History Tobacco Use Types Packs/Day Years [...] Procedure Name Priority Date/Time Associated Diagnosis Comments URINALYSIS WITH REFLEX MICROSCOPIC AND CULTURE Routine [...] V24, CMS/HCC V28) Altered mental status, unspecified documented in this encounter Results * (ABNORMAL) Urinalysis with reflex microscopic and culture (08/03/2025 3:00 PM EDT) Specific [place] Urine 1.020 1.003 - 1.030 LAB URINALYSIS - AUTOMATED METHOD 08/04/2025 11:52 AM [facility] pH, Urine 5.5 5.0 - 8.0 pH LAB URINALYSIS - AUTOMATED METHOD 08/04/2025 11:52 AM [facility] Leukocytes, Urine Negative Negative LAB URINALYSIS - AUTOMATED METHOD 08/04/2025 11:52 AM [facility] Nitrite, Urine Negative Negative LAB URINALYSIS - AUTOMATED METHOD 08/04/2025 11:52 AM [facility] Protein, Urine >=1000(A) <=Trace mg/dL LAB URINALYSIS - AUTOMATED METHOD 08/04/2025 11:52 AM [facility] Glucose, Urine 100(A) Negative mg/dL LAB URINALYSIS - AUTOMATED METHOD 08/04/2025 11:52 AM [facility] Ketones, Urine Negative Negative mg/dL LAB URINALYSIS - AUTOMATED METHOD 08/04/2025 11:52 AM [facility] Urobilinogen , Urine 0.2 0.2 - 1.0 mg/dL LAB URINALYSIS - AUTOMATED METHOD 08/04/2025 11:52 AM [facility] Bilirubin, Urine Negative Negative LAB URINALYSIS - AUTOMATED METHOD 08/04/2025 11:52 AM [facility] Blood, Urine Negative Negative LAB URINALYSIS - AUTOMATED METHOD 08/04/2025 11:52 AM [facility] RBC, Urine 1.8 0 - 4 /HPF LAB URINALYSIS - AUTOMATED METHOD 08/04/2025 11:52 AM [facility] WBC, Urine 1.4 0 - 4 /HPF LAB URINALYSIS - AUTOMATED METHOD 08/04/2025 11:52 AM EDT [facility] Squamous Epithelial, Urine 30 0 - 60 /LPF LAB URINALYSIS - AUTOMATED METHOD 08/04/2025 11:52 AM EDT [facility] Bacteria, Urine Negative Negative /HPF LAB URINALYSIS - AUTOMATED METHOD 08/04/2025 11:52 AM EDT [facility] Hyaline Casts, Urine 1.6 0 - 3 /LPF LAB URINALYSIS - AUTOMATED METHOD 08/04/2025 11:52 AM EDT [facility] Urine Urinary bladder structure / Unknown 08/03/2025 3:00 PM EDT 08/04/2025 11:39 AM EDT us Yong Dodson MD LAB URINE ORDERABLES Final Resul t Performing Organization Address City/[facility]/ZIP Co de Phone Number [facility] [address] [place] [address], [place] [phone] * Mazariegos urine culture tube (08/03/2025 3:00 PM EDT) Extra Tube Hold for add-ons. 08/04/2025 1:01 PM EDT [facility] Comment:Auto resulted. Urine Urinary bladder structure / Unknown 08/03/2025 3:00 PM EDT 08/04/2025 11:39 AM EDT us Yong Dodson MD LAB URINE ORDERABLES Final Resul t Performing Organization Address City/[facility]/ZIP Co de Phone Number [facility] [address] [place] [address], [place] [phone] documented in this encounter Visit Diagnoses Diagnosis Chronic kidney disease, stage 3a (CMS/HCC V24, CMS/HCC V28) Altered mental status, unspecified documented in this encounter Care Teams Reel Cart Operator Relationship Specialty Start Date End Date Yong Dodson MD [address] [facility] [address] [place], [phone] PCP - General Family Medicine 07/25/25 documented as of this encounter
== END 2025-08-25 15:20 | disposition home or self-care (01) ==
LOC: HO.HPS 14:31
PROVIDERS: PCP Nurse Practitioner Gerontology; Visit Provider Nurse Practitioner Family
DX: J44.9 Chronic obstructive pulmonary disease, unspecified (principal); J43.9 Emphysema, unspecified; Z87.09 Personal history of other diseases of the respiratory system; R91.1 Solitary pulmonary nodule
CPT/HCPCS: 99214; G2211

== ENCOUNTER 2025-08-25 14:30 | Outpatient (REF) | payer MEDICARE, SELFPAY ==
--- NOTE | ~2025-08-25 | XR_ITS ---
EXAMINATION: XR CHEST CLINICAL INFORMATION: R09.89 - Other specified symptoms and signs involving the circulatory an... COMPARISON: Previous chest x-ray most recent April 2024 TECHNIQUE: AP portable chest FINDINGS: Pulmonary venous redistribution and increased central interstitial markings. Findings are suggestive of mild pulmonary edema. Slightly enlarged cardiac silhouette. Blunting of both costophrenic angles suggestive of small bilateral pleural effusions. Degenerative changes of the spine and shoulders. XR/XR chest 1V IMPRESSION: Mild CHF. Electronically signed by: Shea Medina MD 08/26/2025 09:19 AM EDT
[2025-08-25 17:56] LABS: Blood Urea Nitrogen 27 mg/dL (9-16); Estimated Glomerular Filt Rate 51
== END 2025-08-25 14:31 | disposition home or self-care (01) ==
LOC: HO.XRAY 14:30
PROVIDERS: PCP Nurse Practitioner Gerontology; Visit Provider Nurse Practitioner Family
DX: J43.9 Emphysema, unspecified (principal); I49.9 Cardiac arrhythmia, unspecified; R09.89 Other specified symptoms and signs involving the circulatory and respiratory systems; R91.1 Solitary pulmonary nodule; Z01.818 Encounter for other preprocedural examination; Z87.09 Personal history of other diseases of the respiratory system; Z87.891 Personal history of nicotine dependence
CPT/HCPCS: 36415; 71045; 71046; 82565; 83880; 84520; 99212

== ENCOUNTER → 2025-08-25 15:45 | Outpatient (BNV) | payer MEDICARE, SELFPAY | PROVIDERS: PCP Nurse Practitioner Gerontology; Visit Provider Radiology Diagnostic Radiology | DX: R09.89 Other specified symptoms and signs involving the circulatory and respiratory systems (principal) | CPT/HCPCS: 71045 ==

== ENCOUNTER 2025-09-24 13:06 | Outpatient (AMB) | payer MEDICARE, SELFPAY ==
--- OUTSIDE RECORDS SUMMARY | 2025-09-23 10:48 | XMS_ITS | Continuity of Care Document ---
Author Organization [facility] Address [address] [facility] [address] [place] [address] Phone Care Team Providers Care Financial Services Specialist Name Role Phone Beverly Steinberg NP Unavailable Unavailable Allergies, Adverse Reactions, Alerts Substance Reaction Status Criticality ADHESIVE BANDAGE Active No Informat ion OXYCODONE HCL Active No Information acetaminophen Active No Information WARNIN allergy(ies) could not be collected because the type is not supported. Please contact the source practice for further details. Medications Medication Instructions Dosage Effective Dates (start - stop) Status Comments Lantus Solostar U-100 Insulin 100 unit/mL (3 mL) subcutaneous pen Inject 24 units SQ once daily at bedtime. - Active seen by bids inpt changed and reduced Humalog KwikPen (U-100) Insulin 100 unit/mL subcutaneous Inject 3 times daily before meals while in SNF: 100-149-2 units, 150-200-4 units 201-250= 6 units, 251-300= 8 units, 301-350= 10 units, 351-400= 12 units, Over 400/HI= 14 units and notify provider. - Active In SNF aspirin 81 mg ORAL TABLET take one tablet by mouth daily - Active oxybutynin chloride ER 5 mg tablet,extended release 24 hr TAKE 1 TABLETS BY MOUTH AT BEDTIME. - Active atorvastatin 80 mg tablet take 1 tablet by oral route every day 80 MG - Active LDL 29 REDUCED CAN WAIT TIL NEXT FILL ropinirole 0.5 mg tablet take 1 tablet by oral route 2 hours before bedtime - Active increased Oxygen NASAL conserving device to maintain sats 88-92% - Active Spiriva Respimat 2.5 mcg/actuation solution for inhalation HOLD USE 2 PUFFS BY MOUTH AT THE SAME TIME EACH DAY - Active tizanidine 4 mg tablet take 1 tablet by oral route at hs - Active FreeStyle Kalli 3 Plus Sensor device Use for continuous glucose monitoring. Change every 14 days. - Active furosemide 20 mg tablet Take 1 tablet by mouth once daily. - Active Per hospital discharge, start Lasix. Pt in SNF. oxycodone 5 mg capsule take 1/2 capsule [...] tablet by oral route TID - Active ADVAIR HFA 230-21 MCG INHALER INHALE 2PUFFS INTO THE LUNGS TWICE A DAY. IN THE MORNING AND IN THE EVENING - Active metformin 500 mg tablet take 1 tablet by oral route 2 times every day with morning and evening meals 500 MG - Active Assure ID Pro Pen Needle 30 gauge x 16 use to give insulin subcutaneously - Active IPRAT-ALBUT 0.5-3(2.5) MG/3 ML INHALE 1 VIAL (3ML) BY NEBULIZATION ROUTE TWICE A DAY - Active Vitamin B-12 1,000 mcg tablet TAKE 1 TABLET BY MOUTH DAILY. - Active BD AutoShield Duo Pen Needle 30 gauge x 316 use to give insulin daily by sq - Active AREDS 2 Vitamins ORAL take one tablet by mouth BID - Active Vitamin D3 50 mcg (2,000 unit) tablet INCREASED take one tablet by mouth daily Apr-14-2025 - Active vit d level 27 increased [...] 1 hour before a meal - Active FreeStyle Kalli 3 Empire use to give insulin - Active broken [...] Location Reason(s) For Visit Diagnoses Date Provider [facility], [address] [address], [place], [place], [id number], [place] tel:[phone] [place] No Information Idris Paul. [address], [place], [place], [id number], [place]. tel:[phone] [facility], [address] [facility] [address], [place], [place], [id number], tel:[phone] [place] No Information 5 Idris Paul. [address], [place], [place], [id number], [place]. tel:[phone] [facility], [address] [facility] [address] [facility], [place], [place], [id number], [place] tel:[phone] [place] Semi-Annual (chief complaint) Mild episode of recurrent major depressive disorderHypertensive heart and kidney disease with chronic diastolic congestive heart failure and stage 3a chronic kidney diseaseChronic diastolic (congestive) heart failureChronic kidney disease, stage 3aAtherosclerosis of akiak coronary artery of akiak heart without angina pectorisOld myocardial infarctionStenosis of left subclavian arteryAtherosclerosis of akiak artery of both lower extremities, with unspecified presence of clinical manifestationHyperchole steremiaLong term (current) use of oral hypoglycemic drugsType 2 diabetes mellitus with stage 3a chronic kidney disease, with long-term current use of insulinLong term (current) use of insulinType 2 diabetes mellitus with both eyes affected by mild nonproliferative retinopathy without macular edema, with long-term current use of insulinType 2 diabetes mellitus with hyperglycemia, with long-term current use of insulinThyroid noduleSevere obesity (BMI 35.0-39.9) with comorbidityBMI 35.0-35.9,adultExudativ e age-related macular degeneration, unspecified laterality, unspecified stageGastroesophageal reflux disease, unspecified whether esophagitis presentHistory of CVA (cerebrovascular accident)Centrilobular emphysemaChronic pulmonary edemaOxygen dependentFormer smoker Aug- 5 Pitsiladis Marlene. [address], [place], [place], [id number], [place]. tel:[phone] [facility], [address] [facility] [address] [facility], [place], [place], [id number], [place] tel:[phone] [place] No Information Aug- 5 Pitsiladis Marlene. [address] [place], [place], [id number], [place]. tel:[phone] [facility], [address] [facility] [address] [address] [facility], [place], [place], [id number], [place] tel:[phone] [place] SNF Follow-up (chief complaint) Restless leg syndromeClosed trimalleolar fracture of right ankle with routine healing, subsequent encounterThrush, oral Oct-1 5 Pitsiladis Marlene. [address], [place], [place], [id number], [place]. tel:[phone] [facility], [address], [place], [place], [id number], [place] tel:[phone] [place] SNF Follow-up (chief complaint)A cute Visit (chief complaint) Chronic diastolic heart failureHypertensive heart and kidney disease with chronic diastolic congestive heart failure and stage 3a chronic kidney diseaseChronic kidney disease, stage 3aType 2 diabetes mellitus with hyperglycemia, with long-term current use of insulinLong term (current) use of insulinClosed trimalleolar fracture of right ankle with routine healing, subsequent encounter Aug-0 - 5 Pitsiladis Marlene. [address], [place], [place], [id number], [place]. tel:[phone] [facility], [address], [place], [place], [id number], [place] tel:[phone] [place] Acute pulmonary edema Oct-0 8 5 Pitsiladis Marlene. [address], [place], [place], [id number], [place]. tel:[phone] [facility], [address] [facility] [address] [address] [facility], [place], [place], [id number], [place] tel:[phone] [place] Chronic diastolic (congestive) heart failure Oct-0 5 Pitsiladis Marlene. [address], [place], [place], [id number], [place]. tel:[phone] [facility], [address] [facility] [address] [facility], [place], [place], [id number], [place] tel:[phone] [place] Encounter for rehabilitation evaluation Oct-0 6- 5 Taryn Bhatia. [address], [place], [place], [id number], [place]. tel:[phone] [facility], [address], [place], [place], [id number], [place] tel:[phone] [place] SNF Admit (chief complaint) Closed trimalleolar fracture of right ankle with delayed healing, subsequent encounter Sep-3 0 5 Tucker Kaur. [address], [place], [place], [id number], [place]. tel:[phone] [facility], [address], [place], [place], [id number], [place] tel:[phone] [place] Encounter for rehabilitation evaluation Sep-2 5 Taryn Bhatia. [address] [place], [place], [address], [place]. tel:[phone] [facility], [address] [facility], [place], [place], [id number], [place] tel:[phone] [place] SNF Follow-up (chief complaint) Closed trimalleolar fracture of right ankle with routine healing, subsequent encounter Sep-2 5 Ed Lion. [address], [place], [place], [id number], [place]. tel:[phone] [facility], [address] [facility] [address] [facility] [address] [facility], [place], [place], [id number], [place] tel:[phone] [place] SNF Admit (chief complaint) Closed trimalleolar fracture of right ankle with routine healing, subsequent encounterCentrilobular emphysemaOxygen dependentFormer smoker Sep- 5 Pitsiladis Marlene. [address], [place], [place], [id number], [place]. tel:[phone] [facility], [address] [facility] [address] [facility], [place], [place], [id number], [place] tel:[phone] [place] No Information Sep- 5 Taryn Bhatia. [address], [place], [place], [id number], [place]. tel:[phone] [facility], [address] [facility] [address] [facility], [place], [place], [id number], [place] tel:[phone] [place] Encounter for rehabilitation evaluation Jul- 5 Taryn Bhatia. [address], [place], [place], [id number], [place]. tel:[phone] [facility], [address], [place], [place], [id number], [place] tel:[phone] [place] Other fracture of ri ght lower leg, initial encounter for closed fracture Sep- 0- 5 Tucker Kaur. [address], [place], [place], [id number], [place]. tel:[phone] [facility], [address] [facility] [address] [address] [facility], [place], [place], [id number], [place] tel:[phone] [place] No Information Sep-0 5 Idris Paul. [address], [place], [id number], [place]. tel:[phone] [facility], [address], [place], [place], [id number], [place] tel:[phone] [place] Muscle weakness (generalized)Difficulty in walking, not elsewhere classified Jun- 5 Taryn Bhatia. [address], [place], [place], [id number], [place]. tel:[phone] [facility], [address] [facility] [address] [facility] [address] [facility], [place], [place], [id number], [place] tel:[phone] [place] Muscle weakness (generalized) Jun- 5 Taryn Bhatia. [address] [place], [place], [id number], [place]. tel:[phone] [facility], [address] [facility] [address], [place], [place], [id number], [place] tel:[phone] [place] Muscle weakness (generalized) Jun- 5 Taryn Bhatia. [address] [place], [place], [id number], [place]. tel:[phone] [facility], [address], [place], [place], [id number], [place] tel:[phone] [place] Muscle weakness (generalized) Jun-2 0 5 Taryn Bhatia. [address] [place], [place], [id number], [place]. tel:[phone] [facility], [address] [facility] [address] [address] [facility], [place], [place], [id number], [place] tel:[phone] [place] Muscle weakness (generalized) Jun- 5 [facility] [address] [place], [place], [address], [place]. tel:[phone] [facility], [address] [facility] [address] [address] [facility], [place], [place], [id number], [place] tel:[phone] [place] Difficulty in walkin g, not elsewhere classified Jun- 5 Taryn Bhatia. [address] [place], [place], [id number], [place]. tel:[phone] [facility], [address] [facility] [address] [facility], [place], [place], [id number], [place] tel:[phone] [place] Muscle weakness (generalized) Jun-0 5 Taryn Bhtaia. [address] [place], [place], [id number], [place]. tel:[phone] [facility], [address] [facility] [address] [facility], [place], [place], [id number], [place] tel:[phone] [place] Muscle weakness (generalized) Jun-0 5 [facility]. [address] [place], [place], [address], [place]. tel:[phone] [facility], [address] [facility] [address], [place], [place], [id number], [place] tel:[phone] [place] Type 2 diabetes mellitus with hypoglycemia without coma, with long-term current use of insulinLong term (current) use of insulin Aug-0 5 Steinberg Beverly. [address] [place], [place], [id number], [place]. tel:[phone] [facility], [address], [place], [place], [id number], [place] tel:[phone] [place] Encounter for rehabilitation evaluation 5 Taryn Bhatia. [address], [place], [place], [id number], [place]. tel:[phone] [facility], [address], [place], [place], [id number], [place] tel:[phone] [place] Encounter for rehabilitation evaluation 5 Uri Guadarrama. [address], [place], [place], [id number], [place]. tel:[phone] [facility], [address] [facility] [address] [facility] [address] [facility], [place], [place], [id number], [place] tel:[phone] [place] No Information 5 Ed Aqib. [address] [place], [place], [id number], [place]. tel:[phone] [facility], [address] [facility] [address], [place], [place], [address], [place] tel:[phone] [place] No Information 5 Steinberg Beverly. [address] [place], [place], [id number], [place]. tel:[phone] [facility], [address], [place], [place], [id number], [place] tel:[phone] [place] No Information 5 Steinberg Beverly. [address], [place], [place], [id number], [place]. tel:[phone] [facility], [address], [place], [place], [id number], [place] tel:[phone] [place] No Information 5 Idris Paul. [address] [place], [place], [id number], [place]. tel:[phone] [facility], [address] [facility], [place], [place], [id number], [place] tel:[phone] [place] Encounter for nutritional assessmentDiabetic nutritional counseling completedOther obesity 5 Delon Clarke. [address], [place], [id number], [place]. tel:[phone] [facility], [address] [facility] [address], [place], [place], [address], [place] tel:[phone] [place] Semi-Annual (chief complaint) Recurrent major depressive disorder, in partial remissionHypertensive heart and kidney disease with chronic diastolic congestive heart failure and stage 3 chronic kidney disease, unspecified whether stage 3a or 3b CKDChronic diastolic (congestive) heart failureStage 3a chronic kidney diseaseAtherosclerosis of akiak coronary artery of akiak heart without angina pectorisOld myocardial infarctionStenosis of left subclavian arteryHypercholesteremi aLong term (current) use of oral hypoglycemic drugsType 2 diabetes mellitus with diabetic chronic kidney disease, unspecified CKD stage, unspecified whether long term care pharmacist insulin useLong term (current) use of insulinType 2 diabetes mellitus with hypoglycemia without coma, unspecified whether custodial insulin useThyroid noduleVitamin D deficiencySevere obesity (BMI [...] typeLung nodulesOSA on CPAPHealthcare maintenanceAtherosclero sis of akiak artery of both lower extremities with intermittent claudicationBMI 38.0-38.9,adult 5 Idris Paul. [address] [place], [place], [id number], [place]. tel:[phone] [facility], [address] [facility] [address] [facility], [place], [place], [id number], [place] tel:[phone] [place] No Information 4 5 Steinberg Beverly. [address], [place], [id number], [place]. tel:[phone] [facility], [address] [facility], [place], [place], [id number], [place] tel:[phone] [place] No Information 7 5 Steinberg Beverly. [address], [place], [place], [id number], [place]. tel:[phone] [facility], [address] [facility] [address] [facility], [place], [place], [id number], [place] tel:[phone] [place] HAYDEE on CPAP Jan- 0-202 5 Steinberg Beverly. [address], [place], [place], [id number], [place]. tel:[phone] [facility], [address] [facility], [place], [place], [id number], [place] tel:[phone] [place] Alteration in performance of activities of daily living Jan-0 4 5 Uri Chiara. [address], [place], [address], [place]. tel:[phone] [facility], [address] [facility] [address] [facility], [place], [place], [id number], [place] tel:[phone] [place] Encounter for rehabilitation evaluation 5 Uri Chiara. [address], [place], [address], [place]. tel:[phone] [facility], [address] [facility], [place], [place], [id number], [place] tel:[phone] [place] No Information 5 Steinberg Beverly. [address] [place], [place], [address], [place]. tel:[phone] [facility], [address] [facility] [address] [facility], [place], [place], [id number], [place] tel:[phone] [place] Follow-up (chief complaint) Type 2 diabetes mellitus with hypoglycemia without coma, unspecified whether custodial insulin useLong term (current) use of insulinLong term (current) use of oral hypoglycemic drugsVitamin D deficiencyHypercholeste remia 4 Steinberg Beverly. [address], [place], [place], [id number], [place]. tel:[phone] [facility], [address] [facility], [place], [place], [id number], [place] tel:[phone] [place] Encounter for rehabilitation evaluation 4 Uri Guadarrama. [address], [id number], [place]. tel:[phone] [facility], [address] [facility] [address] [facility], [place], [place], [id number], [place] tel:[phone] [place] Muscle weakness (generalized) 4 Yen Bautista. [address], [place], [address], [place]. tel:[phone] [facility], [address] [facility] [address] [facility], [place], [place], [address], [place] tel:[phone] [place] Muscle weakness (generalized) 4 Yen Bautista. [address], [place], [address], [place]. tel:[phone] [facility], [address] [facility] [address] [facility], [place], [place], [id number], [place] tel:[phone] [place] Muscle weakness (generalized)Difficulty in walking, not elsewhere classified 4 Yen Bautista. [address], [place], [address], [place]. tel:[phone] [facility], [address] [facility] [address], [place], [place], [address], [place] tel:[phone] [place] Muscle weakness (generalized) Nov 4 Yen Bautista. [address], [place], [address], [place]. tel:[phone] [facility], [address] [facility] [address], [place], [place], [id number], [place] tel:[phone] [place] PEE FUV #1 (chief complaint) HAYDEE on CPAPRestless leg syndromeHypercholestere miaChronic obstructive pulmonary disease, unspecified COPD type 4 Idris Paul. [address], [place], [address], [place]. tel:[phone] [facility], [address] [facility] [address] [facility], [place], [place], [address], [place] tel:[phone] [place] Follow-up (chief complaint) Muscle weakness (generalized) Nov-0 4 Yen Bautista. [address], [place], [address], [place]. tel:[phone] [facility], [address] [facility] [address] [facility], [place], [place], [id number], [place] tel:[phone] [place] Encounter for rehabilitation evaluation 0 4 Yen Bautista. [address], [place], [address], [place]. tel:[phone] [facility], [address] [facility] [address], [place], [place], [address], [place] tel:[phone] [place] Muscle weakness (generalized) Sep-0 4 Yen Bautista. [address], [place], [address], [place]. tel:[phone] [facility], [address], [place], [place], [id number], [place] tel:[phone] [place] Muscle weakness (generalized) 3 0 4 Yen Bautista. [address], [place], [place], [id number], [place]. tel:[phone] [facility], [address], [place], [place], [id number], [place] tel:[phone] [place] Muscle weakness (generalized) 4 Yen Bautista. [address], [place], [place], [address], [place]. tel:[phone] [facility], [address], [place], [place], [id number], [place] tel:[phone] [place] Muscle weakness (generalized) 4 Yen Bautista. [address], [place], [place], [address], [place]. tel:[phone] [facility], [address], [place], [place], [address], [place] tel:[phone] [place] Muscle weakness (generalized)Difficulty in walking, not elsewhere classified 4 Yen Bautista. [address], [place], [id number], [place]. tel:[phone] [facility], [address], [place], [place], [address], [place] tel:[phone] [place] Muscle weakness (generalized) 4 Yen Bautista. [address], [place], [address], [place]. tel:[phone] [facility], [address], [place], [place], [address], [place] tel:[phone] [place] Encounter for rehabilitation evaluation 0 4 Uri Guadarrama. [address], [place], [place], [id number], [place]. tel:[phone] [facility], [address], [place], [place], [id number], [place] tel:[phone] [place] Encounter for rehabilitation evaluation 4 Yen Bautista. [address] [place], [place], [id number], [place]. tel:[phone] [facility], [address], [place], [place], [address], [place] tel:[phone] [place] Encounter for nutritional assessmentClass 2 severe obesity with serious comorbidity and body mass index (BMI) of 39.0 to 39.9 in adult, unspecified obesity typeMorbid (severe) obesity due to excess caloriesBody mass index [BMI] 39.0-39.9, adult 4 Normjo Tricia. [address] [place], [place], [id number], [place]. tel:[phone] [facility], [address], [place], [place], [address], [place] tel:[phone] [place] No Information 4 Idris Paul. [address] [place], [place], [id number], [place]. tel:[phone] [facility], [address] [facility] [address], [place], [place], [address], [place] tel:[phone] [place] Post Enrollment Evaluation (chief complaint) Recurrent major depressive disorder, in partial remissionAtherosclerosi s of akiak coronary artery of aki[place] heart without angina pectorisOld myocardial infarctionStenosis of left subclavian arteryHypercholesteremi aType 2 diabetes mellitus with diabetic chronic kidney disease, unspecified CKD stage, unspecified whether custodial insulin useStage 3 chronic kidney disease, unspecified [...] (current) use of oral hypoglycemic drugs 4 Steinbergrita FoxBeverly. [address], [place], [place], [id number], [place]. tel:[phone] [facility], [address] [facility] [address], [place], [place], [address], [place] tel:[phone] [place] No Information 4 Idris Foxantha. [address], [place], [place], [id number], [place]. tel:[phone] Family History Family Member Type Diagnosis Age [...] Registry Payers Payer name Insurance type Covered libertarian ID Alciia mosquera(s) [facility] 16 [id number] [facility] 16 [id number] [facility] 16 [id number] [facility] 16 [id number] [facility] 16 [id number] Social History Type Description Quantity Date Captured Comments Sex Female Smoking Status No Information Chief Complaint And Reason For Visit No Information Plan Of Treatment Date Type Action Status Referral Ordered: dr solis -Ophthalmology (related to Age-related nuclear cataract, bilateral) ordered Referral Referred To: dr solis Ordered: Referrals: Ophthalmology. dr solis. Consult ordered Referral Referred To: dr. ngo Ordered: Referrals: Cardiology. dr. ngo. Follow-up and treat Appointment date/timeframe: 11/14/2024 ordered Referral Referred To: [facility] Ordered: Referrals: Dentistry. [facility]. Consult Appointment date/timeframe: 12/03/2024 ordered Referral Referred To: [facility] Ordered: Referrals: [facility]ist. [facility]. Follow-up and treat Appointment date/timeframe: 10/03/2024 ordered Referral Referred To: dr. bacon Ordered: Referrals: Pulmonology. dr. bacon. Follow-up and treat Appointment date/timeframe: 09/20/2024 ordered Future Order: Radiology Order CT Chest, low dose for lung screen, WITHOUT contrast ([id number]), Ordered on: Ordered Future Order: Radiology Order Po lysomnography, 4+ add'l params w/CPAP ([id number]), Ordered on: Ordered History Of Present Illness Encounter Date Complaint History Of Prese nt Illness Semi-Annual Lilli is a 79 year old female who is seen today for a SNF follow up and a semi-annual visit. She has been enrolled with [facility] since 08/2024. Visit conducted in SNF setting. Lilli is supposed to be going for a boot fitting for the right lower leg to protect the fracture (required multiple rescheduled visits due to hospitalization, transport concerns). She is having mild to moderate discomfort mostly in the overnight time, but it is improving. She is using the PRN oxycodone intermittently. Incision is healing well. We reviewed her diabetes management. Kalli shows continued daytime hyperglycemia. We agreed to add a lispro sliding scale for mealtimes while in SNF. Recent hospital admissions/ER visits/Falls:-ER visit 08/26/25 r/t elevated pro-BNP found at pulmonary clinic. Lasix was restarted and she was discharged back to SNF.-07/2025: To ER after fall resulting in right ankle fracture s/p surgical intervention. Discharged to SNF where she remains. Social: Lilli is in SNF currently, but otherwise lives in community in an apartment with her significant other. She has a daughter Claire Vaughan who is her HCP and is a nurse. Dental: Lilli is waiting on a dental appt for new dentures as hers is very old, worn and broken on one part that is irritating her gum. Vision: She follows regularly with vision. We do not have last note. SNF Follow-up Lilli is a 79 year old female who is seen today for a SNF follow up.She is sitting in her wheelchair next to the bed during today's visit. She reports she continues to be bothered by pain, spasms, and restless legs in the overnight hours. The restless legs is bilateral. The pain has somewhat improved but still bothersome. She is working with PT/OT and says she enjoys working with them. Her incision has some mild local erythema, no discharge, mild warmth consistent with healing. Dayna is having some pain in the back of her mouth. I was contacted yesterday with concern for thrush. On exam today, she does have mild white plaques on the very back of her tongue and back of her mouth. Her denture is also broken and sharp and likely causing irritation. She has the dentures out right now. She will continue the nystatin oral suspension 4 times daily for oral candidiasis. SNF Follow-up Lilli is a 79 year old female who is seen today for a SNF follow up. She reports feeling well today, has intermittent cough and shortness of breath. Remains on her baseline O2. She was seen in the ER yesterday due to a reported BNP of 50,000 by her judicial administrative assistant via labs drawn at their office in the setting of SOB, cough. Lasix 20mg daily was added and she was discharged back to SNF. Lilli has noticed she's urinating more on the Lasix. She continues to have pain to the right ankle though it is improving slowly. She is mostly bothered at nighttime when it is most sensitive and she develops spasms at times. She noticed a small improvement with the addition of the tizanidine but still finds it bothersome. She is agreeable to increasing the dose.We reviewed blood sugars which continue to be elevated. We agreed to increase her Lantus further to 34 units. Acute Visit SNF Admit Nam mendoza to experience ankle [...] a SNF follow up visit at the [facility]. Pt was transferred over to this SNF [...] old female who is seen today at [facility] for an admission visit. Lilli arrived to the facility yesterday afternoon. In review of recent events, she sustained a fall on 07/21 with right trimalleolar ankle fracture now s/p surgical repair. She was at [facility] from 07/24 until 08/06 and there were some concerns with her care there so she was moved to [facility] to be followed by our [facility] providers. [...] been getting her appropriate respiratory treatments at [facility], so they were restarted and began this morning. No other significant concerns when I saw her. Semi-Annual Patient was seen today for her ELZA in the office and was accompanied by her daughter who helps with hx. She started with [facility] in 08/2024. Does not attend day program. Currently lives on 3rd floor apt with significant other Jeffery, has an elevator, in [facility]. Information per collective, [facility], ppt, daughter PPt with no hospitalizations, SNF stays and falls in the last 6 months which is the longest whe had gone without going to the hospital and is very proud of this. Complaints/concerns: Overall jacqui is doing great reporting she has lost [...] puffs o2 instead of continued flow but judicial administrative assistant said she didn't quality. Educated and recommended to follow pulms recs of staying is continuos o2. Ppt had a sleep study last as she [...] weekly. She is approved to continue with [facility] D[facility] and Dr. Bacon for pulmonology. . [...] is on AREDs. She follows with retinal specialist-[facility]. Reports dry md in right used [...] and daughter Vaccines: given shingrix by pcn [id number]:Mind: AxOx3, forgetful- blind versionMeds: Multiple meds working [...] and +s2Abd soft, non tender, non distended, +lys1Lhlr intact LE mild edema non pitting, +cms, [...] LE edema, +pp, 10/10 microfilamentcalm and cooperative Nov-12-2024 PEE FUV #1 Ppt presented to the office with her daughter who helps with hx. Ppt reports she had her sleep study yesterday as planned per her judicial administrative assistant to look at her oxygen needs. However [...] fill sin gapsperrllscta bilaterally on 2l NC b1rlpgr rate reg +s1 and +s2abd soft, nontender, nondistended, +vsi4pqlr LE edemacal and cooperative Follow-up Post Enrollment Evaluation Patient was seen today for her PEE in e office and was accompanied by her daughter who helps with hx. She started with [facility] in 08/2024. Does not attend day program. Currently lives on 3rd floor apt with significant other Jeffery, has an elevator, in [facility]. Information per collective, [facility], ppt, daughter PPt with 4 hospitalizations, 2 SNF stays and 1 fall in the last 6 months [facility] ED June 14, 2024 syncope, slurred speech, unsteady gait found to have left carotid artery occlusion causing hypotension want permissive htn, discharged June 15, 2024 to care [facility] def anemia, +orthostatic hypotension, uti, and discharged from snf on jun 28, 2024 to [facility] ADMIT 05/16/2024 fall, weakness, copd exacerbation, acute resp failure with hypoxia, haydee discharged to [facility] care one May 23, 2024 and discharged from [facility] [place] on June 11, 2024 to [facility] 04/29/2024 ED general weakness, n/v admitted [...] EEG done, Pt had incidental findings at [facility] of enlarged thyroid and L breast finding - outpt f/u recommended. Pt was d/c to rehab. discharged May 03, 2024 to [facility] ED 03/30/2024 fall, nasal bone fx [...] weekly. She is approved to continue with [facility] D[facility] and Dr. Bacon for pulmonology. . [...] AllergiesAdhesive BandageBee Stings (SWELLING AT SITE ONLY)Percocet [id number]-ppt and daughter brought in med list which [...] Coronary artery diseaseBrother (abdi, )Vaccines: up to [id number]:Mind: AxOx3, forgetful- blind versionMeds: Multiple meds working [...] and +s2Abd soft, non tender, non distended, +[id number] intact LE mild edema non pitting, +cms, warm feet, +pp, 10/10 microfilamentCalm and cooperative Instructions Date Instruction Additional Infor nikki -Remains on up to 4L O2. Baseline is 2L at rest and 3L with exertion. Related to Oxygen dependent -Former smoker with [id number]. quit after CVA (? about 2023). Related to Former smoker -Bedside ultrasound in the ER 08/26/25 showed bilateral pulmonary edema. Chest xray WNL. She was started on Lasix 20mg daily and discharged. Related to Chronic pulmonary edema -Longstanding histor y of COPD (confirmed with CT chest showing mild centrilobular emphysema), 50 pack year former smoker (quit after CVA). Tends to have exacerbation when triggered by viral illness. -Coexisting HAYDEE on CPAP.-Current regimen is Advair, Spiriva, Duoneb BID, and PRN Albuterol on top of that; on continuous oxygen 2L at rest and 3L with exertion (up to 4L in SNF). No evidence of exacerbation at present, no changes. -Follow up with pulmonary. Related to Centrilobular emphysema -ppt has had cva in past resulted in mild right side weakness that has not resolved although hard to tell for me. -Brain mri [facility] [...] vertebral arteries mod stenosis on the left, -ppt has had many tias seen neuro inpt [...] Related to History of CVA (cerebrovascular accident) -Hisotry of gastriti s, globus sensation.-Continue omeprazole dr 20 mg daily felt to be gerd recommended outpt barium swallow and modified barium swallow. Related to Gastroesophageal reflux disease, unspecified whether esophagitis present -Reports has wet and dry MD gets injections in left eye on areds vitamins used to followed with dr. holliday and now [facility] need notes. Denies retinopathy but in notes. Feels vision is getting worse. Left eye blurry and sometimes has a vail and minimal vision from right eye there is a big hole of vision sees connor centrally. Ppt wants to keep following up with [facility]. Ppt worried about what to expect with vision. She last got injections left eye 01/2025 and follow up in march 2025.-Notes requested. Related to Exudative age-related macular degeneration, unspecified laterality, unspecified stage -02/2025 BMI 38.3; m ore recent weight since being in SNF is 181, down about 17lbs and places BMI at 35.3-Comorbidities including HTN, CKD, HAYDEE, COPD on o2, CAD S/P STENTS, NSTEMI, [id number] in rehab at present, getting therapy, diet managed by facility. Will discuss further once back home as this is not the priority at present. Related to Severe obesity (BMI 35.0-39.9) with comorbidity -BMI 35.3 Related to BMI 3 5.0-35.9,adult Mri [facility] 05/01/2024 wi th enlarged multinodular right thyroid gland. -08/09/20[place] [facility] thyroid ultrasoundIMPRESSION: Right mid gland 1.9 cm TI-RADS Category 3 nodule. Follow-up ultrasound in 1 year is recommended per guidelines below.-TSH 02/2025 1.06. Denies issues with swallowing.-Continue periodic labs, repeat thyroid ultrasound. Related to Thyroid nodule -Longstanding T2DM w ith multiple complications.-Review of [facility] and [facility] BG logs shows persistent numbers in the 200s-300s postprandially; fasting numbers close to goal. -Lantus 40 units, add lispro correctional scale of 2 units at 200mg/dL, increase by 2 units per 50mg/dL, Metformin 500mg BID. Related to Type 2 diabetes mellitus with hyperglycemia, with long-term current use of insulin -Ppt comes to us wit h hx of this. Follows with [facility]. Feels vision is getting worse. Left eye blurry and minimal vision from right eye there is a big hole of vision sees connor centrally. Reports has wet and dry macular degeneration on vitamins and gets injections in one eye. -Pending updated office note. 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 -HbA1c goal <7-7.5%. Above goal most recently at 8.7% 08/2025. Continue Lantus at 40 units, add lispro correctional scale of 2 units at 200mg/dL, increase by 2 units per 50mg/dL. Continue Metformin 500mg BID.Avoid nephrotoxins, encourage hydrations, BP management as discussed, periodic labs. Related to Type 2 diabetes mellitus with stage 3a chronic kidney disease, with long-term current use of insulin -Longstanding T2DM c omplicated by CKD along with multiple other complications.-Most recent labs most consistent with CKD3A. -HbA1c goal <7-7.5%. Above goal most recently at 8.7% 08/2025. Continue Lantus at 40 units, add lispro correctional scale of 2 units at 200mg/dL, increase by 2 units per 50mg/dL. Continue Metformin 500mg BID.Avoid nephrotoxins, encourage hydrations, BP management as discussed, periodic labs. 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 Related to exterminator helper termite (current) use of oral hypoglycemic drugs -History of HLD. Per cardiology, goal LDL less than 50 due to multiple TIAs, cva, cad s/p arcadio on zetia 10 mg daily and high intensity statin atorvastatin 80 mg daily. -PEE labs showed ldl 19 too low reduced atorvastatin to 40 mg daily at hs and in oct 2024 ldl was 29 goal less than 70 but greater than 40 today.-Last lipids 02/2025 TC 92, HDL 36, LDL 34, TG 139. -Continue atorvastatin 80mg daily. Related to Hypercholesteremia -Per pee notes ua ar terial duplex of LE and abis on 03/26/2024 right common femoral artery 191 cm/s and left common femoral artery 151 cm/s with calcified plaque throughout bilateral superficial femoral artery with elevated velocity in distal segment found to have mod stenosis bilaterally-On exam LE normal coloring and toe nails well cut and look good with +pp bilaterally. No edema today.-ppt hx of cad, mi and stents on dual antiplatelet on plavix and asa along with statin and bb and arb-Bp well controlled goal less than sbp 140 due to orthostasis hx. A1c less than 7.5% well controlled, LDL less than 50 at goal Related to Atherosclerosis of [place] artery of both lower extremities, with unspecified presence of clinical manifestation [facility] dec 2022 syncope unclear etiology, likely deconditioning from recent hospitalization, oral orthostatic bp, severe left subclavian artery stenosis evaluated by [facility] surgery, has good brachial pulses and equal bilateral bps not contributing to symptoms, cta chest showed no pe, ct head showed no intracranial hemorrhage-Consult [facility] 01/19/2023 incidental finding left subclavian stenosis being worked up for SOB cta of chest severe left subclavian stenosis vascular eval and asymptomaic. Good motor and sensory in use. Doing well no intervention indicated. Follow up as needed -CTA 01/17/2023 no pe, severe left subclavian stenosisCurrently asymptomatic. Ppt is on dual antiplatelet due to multiple tias and also cardiac stents in past. Mildly permissive sbp 140s or less due to hx of syncope and orthostasis on arb, bb. ppt is on high intensity statin. No chest pain or sob. bilateral arms +cms and brachial pulses with no pain to arms or hands-No changes today. Related to Stenosis of left subclavian artery -Hx of NSTEMI ppt un sure on year thinks it was around 2021.-Former smoker for many years, hld, t2dm at some points uncontrolled, significant complex cad with multiple stents last in march 2022-Echo 02/23/2022 card report from [facility] Dr. Ngo TTE echoNormal LV systolic function with mild LVH with impaired relaxation filling pattern and elevated filling pressure. Normal cardiac valvular doppler, normal RV systolic pressure, no pericardial effusion. EF 55-60%, left atrium mildly dilated, -Nuclear stress test 02/23/2022 Myocardial perfusion imaging study shows ischemia/infarct pattern involving the inferior wall, inferolateral wall as well as basal part of inferior septum. There is significant ischemia component. Estimated LVEF is 50% during stress and 56% during rest. Transient ischemia dilation not present. -Continue to follow with cardiology, appt booked for 09/24/25.-Continue aggressive vascular risk factor control on atorvastatin 80 mg daily, zetia 10 mg at hs, losartan 100 mg daily with goal sbp less than 140 due to issue with syncope and orthostasis on high levels, alc less than 7%, ldl less than 50, metoprolol 37.5 mg BID. Low fat diet, exercise, continue to not smoke. 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 Hx of NSTEMI. No angina pain. -CT chest 02/23/2023: Heavy coronary artery calcifications, severe atherosclerotic vascular calcification but no aneurysm.-Continue high intensity statin with goal ldl less than 50. A1c less than 7%. Due to hx of orthostatic hypotension, syncope and left subclavian artery stenosis recommended permissive htn goal sbp less than 140. -Continue Zetia 10 mg daily at bedtime, metoprolol succinate ER 37.5 mg BID, losartan 100 mg daily, ASA 81 mg daily, atorvastatin 80 mg daily, nitroglycerin 0.4 mg tab prn every 5 min no more than 3 tab for chest pain. -Ppt still currently on Plavix. I was not able to get into this at this visit however due to multiple tias and hx of cvas neuro recommend dual antiplatelet likely why stayed on nit. Pt and daughter reports every time come off plavix have tia want to stay on it. Denies chest pain and reports sob with exertion with underlying copd. -Continue to follow with cards, low fat and salt diet. BP today well controlled. Related to Atherosclerosis of [place] coronary artery of [place] heart without angina pectoris -Longstanding HTN, C KD, diastolic HF. Coexisting significant CAD s/p stents, h/o TIAs. -See CKD, HF.-BP goal <130-140/90 which she is meeting most times. -Continue metoprolol, losartan, Lasix. Related to Hypertensive heart and kidney disease with chronic diastolic congestive heart failure and stage 3a chronic kidney disease -Longstanding histor y of chronic diastolic HF, typically well compensated however has had increased WOB recently with higher O2 needs in SNF. Elevated BNP per pulmonology. Seen in ER where she was started on Lasix 20mg daily. -Echo 01/09/2023 left ventricle systolic function normal calculated ef 59% by biplane method evidence suggests evidence of grade one diastolic dysfunction elevated filling pressures-Echo 03/2024 [facility] left ventricular systolic function is normal. Visually estivated EF 55-60% no obvious valvular pathology seen evidence of grade 1 mild diastolic dysfunction and no regional wall motion abnormalities -Continue Lasix 20mg daily, ARB, BB. Related to Chronic diastolic (congestive) heart failure -Longstanding CKD ty pically in the stage 3A range. -Last labs at [facility] 08/2025 with eGFR ranging 52-65 and creatinine 0.9-1.08. -May see some dip in renal function given new start of Lasix this week. -Continue losartan.-Avoid nephrotoxins when possible, encourage adequate hydration, BP management, glucose control, periodic labs.-See CKD, HF.-BP goal <130-140/90 which she is meeting most times. -Continue metoprolol, losartan, Lasix. Related to Chronic kidney disease, stage 3a -Hx of major depress ion since her mother around 40 years ago per ppt and daughter. Noted to be situational and comes and goes with tragic events. -Reports situational. Does not stay in a rut. She is happy most days and has things to look forward to and do. She has a bf she lives with for last 5 years. Her family is supportive. -More recently mood is down with being in SNF, meeting roadblocks to getting better. Sleeping and eating well. No SI.-Will consider increase in medication if this continues to be a concern. Related to Mild episode of recurrent major depressive disorder -Oral candidiasis no crista to back of tongue and back corners of mouth. She is at higher risk of this given her steroid inhalers, recent antibiotic use. -Continue Nystatin oral solution 4 times daily x 7 days. Related to Thrush, oral -Sustained a fall on 07/21 with right trimalleolar ankle fracture now s/p surgical repair.-Pain reasonable managed at present though increased sensitivity to her toes of right foot at night especially since her injury. Tizanidine was added last week. Continue to have discomfort with spasms. Increased to 4mg daily at bedtime. Continues PRN oxycodone. -Continue PT/OT.-Pending boot fitting. Related to Closed trimalleolar fracture of right ankle with routine healing, subsequent encounter -Longstanding histor y of restless legs which continues in SNF to bilateral lower extremities. -Vit D, B12 now at goal.-Increase ropinirole to 1.5mg daily before bed. Related to Restless leg syndrome -Sustained a fall on 07/21 with right trimalleolar ankle fracture now s/p surgical repair.-Pain reasonable managed at present though increased sensitivity to her toes of right foot at night especially since her injury. Tizanidine was added last week. Continue to have discomfort with spasms. Increase to 4mg daily at bedtime. -Continue PT/OT.-Pending boot fitting. Related to Closed trimalleolar fracture of right ankle with routine healing, subsequent encounter -Longstanding T2DM w ith multiple complications.-Review of [facility] and [facility] BG logs shows persistent numbers in the 200s-300s. -Increase Lantus to 34 units daily. Related to Type 2 diabetes mellitus with hyperglycemia, with long-term current use of insulin -Longstanding T2DM w ith multiple complications.-Review of [facility] and [facility] BG logs shows persistent numbers in the 200s-300s. -Increase Lantus to 34 units daily. 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 Coexisting significant CAD s/p stents, h/o TIAs. -See CKD, HF.-BP goal <130-140/90 which she is meeting most times. -Continue metoprolol, losartan, Lasix. Related to Hypertensive heart and kidney disease with chronic diastolic congestive heart failure and stage 3a chronic kidney disease -Longstanding HTN, C KD, diastolic HF. Coexisting significant CAD s/p stents, h/o TIAs. -See CKD, HF.-BP goal <130-140/90 which she is meeting most times. -Continue metoprolol, losartan, Lasix. Related to Chronic kidney disease, stage 3a -Longstanding histor y of chronic diastolic HF, typically well compensated however has had increased WOB recently with higher O2 needs in SNF. Elevated BNP per pulmonology. Seen in ER where she was started on Lasix 20mg daily. -Echo 01/09/2023 left ventricle systolic function normal calculated ef 59% by biplane method evidence suggests evidence of grade one diastolic dysfunction elevated filling pressures-Echo 03/2024 [facility] left ventricular systolic function is normal. Visually estivated ej 55-60% no obvious valvular pathology seen evidence of grade 1 mild diastolic dysfunction and no regional wall motion abnormalities -Continue Lasix 20mg daily, ARB, BB. Related to Chronic diastolic heart failure -Bedside ultrasound in the ER 08/26/25 showed bilateral pulmonary edema. Chest xray WNL. She was started on Lasix 20mg daily and discharged. Related to Acute pulmonary edema Patient sustained a fall on 07/21 with right trimalleolar ankle fracture now s/p surgical repair. She was at [facility] from 07/24 until 08/06 and there were some concerns with her care there so she was moved to [facility] to be followed by our [facility] providers. [...] delayed healing, subsequent encounter -Former smoker with [id number]. quit after CVA (? about 2023). Related [...] exertion. She was not receiving Spiriva at [facility] recently. Wheezing on exam today. Home regimen restarted. If she worsened, or has increased sputum/SOB, will treat for exacerbation. Related to Centrilobular emphysema -Sustained a fall on 07/21 with right trimalleolar ankle fracture now s/p surgical repair. She was at [facility] from 07/24 until 08/06 and there were some concerns with her care there so she was moved to [place] to be followed by our [facility] providers. [...] ankle with routine healing, subsequent encounter per jessie notes ua art erial duplex of LE [...] 50 at goal Related to Atherosclerosis of [place] artery of both lower extremities with intermittent claudication continue to follow w cresencio jitterbug operator-cad s/p stents, stemi and judicial administrative assistant copd on o2 with exacerbationdoes not want reservation sales agent, mammography, dexa or colonoscopyokay with lung screening smoker many years has lung nodules and follows with pulmwayuli to change his eye doctor to dr [...] 2 years. Related to HAYDEE on CPAP Ct chest ldct lung p kasey 02/23/2023 [...] Chronic obstructive pulmonary disease, unspecified COPD type jacqui comes to us with RLS on ripinorole [...] CVA (cerebrovascular accident) Hx of OAB trialed [facility] saw [facility] which she no longer follows with [...] bleeding. Does not want to follow with reservation sales agent. Ruben pain. Does not remember why she had this done. Seen on ct abd and pelvis imaging Related to History of hysterectomy abd ct 04/30/2024 [facility] per records diverticulosis without diverticulitis. Discussed high fiber diet and softer stools was on colase change to senna. Denies abd pain or issues with stools. Related to Diverticulosis of colon ct abd and pelvis 2023nothing visible on abddenies painno issues with bmsobserve Related to Umbilical hernia without obstruction and without gangrene hospitalization at [facility] had n/v found to have gastritis globus [...] without esophagitis Abd ct hepatic ste[facility] [...] to followed with dr. holliday and now [facility] need notes. Denies retinopathy but in [...] to followed with dr. holliday and now [facility] need notes. Denies retinopathy but in [...] COPD on o2, CAD S/P STENTS, NSTEMI, K6YTEnaavichllteg weight lossdiet and exercise follow with RDhas lost weight and eating better Related to Severe obesity (BMI 35.0-39.9) with comorbidity vit d was low 16 on pee started vit d and increased to 27 and then increased to vit d 2000 units and 41 in oct 2024 Related to Vitamin D deficiency mri [facility] 05/01/2024enl arged multinodular right thyroid gland9[place] [facility] thyroid ultrasoundIMPRESSION: Right mid gland 1.9 cm [...] mellitus with hypoglycemia without coma, unspecified whether custodial insulin use REduce lantus to 32 units at hs Related to exterminator helper termite (current) use of insulin PPt reports has [...] 500 mg BID. She does not have worm grower. Hx of jesus in past with gi [...] microalbumin, estrella arb and statin followed by ambika need to see podiatry feet look good will let us know if issues we can help with nail cutreduce lantus to 32 units daily continue on metforminstay hydrated and avoid nephrotoxins Related to Type 2 diabetes mellitus with diabetic chronic kidney disease, unspecified CKD stage, unspecified whether custodial insulin use Lipid panel 08/2023 85/166/33/19 goal [...] term (current) use of oral hypoglycemic drugs [facility] dec 2022 syncope unclear etiology, likely deconditioning from recent hospitalization, oral orthostatic bp, severe left subclavian artery stenosis evaluated by [facility] surgery, has good brachial pulses and equal bilateral bps not contributing to symptoms, cta chest showed no pe, ct head showed no intracranial hemorrhageconsult [facility] 01/19/2023 incidental finding left subclavian stenosis [...] in march 2022Echo 02/23/2022 card report from [facility] dr. ngo TTE echoNormal LV systolic function with mild LVH with impaired relaxation filling pattern and elevated filling pressure. Normal cardiac valvular doppler, normal RV systolic pressure, no pericardial effusion. EF 55-60%, left atrium mildly dilated, Nuclear stress test [facility] shows ischemia/infarct pattern involving [...] well controlled today Related to Atherosclerosis of [place] coronary artery of [place] heart without angina pectoris Today bp was [...] dysfunction and no regional wall motion abnormalities [facility] chronic diastolic chf hyperdynamic ejection fraction [...] dysfunction and no regional wall motion abnormalities [facility] chronic diastolic chf hyperdynamic ejection fraction [...] unspecified whether stage 3a or 3b CKD Hx of Major depressi on since her [...] as asked. 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 Discussed weight loss. [...] bleeding. Does not want to follow with reservation sales agent. Ruben vilchis. Does not remember why she had this done. Seen on ct abd and pelvis imaging Related to History of hysterectomy Hx of OAB trialed [facility] she no longer follows with [...] dysfunction and no regional wall motion abnormalities [facility] chronic diastolic chf hyperdynamic ejection fraction [...] dysfunction and no regional wall motion abnormalities [facility] chronic diastolic chf hyperdynamic ejection fraction [...] cholecystitis [facility] 04/30/2024enies abd pain, n/v and tolerating fooddiscussed [...] Related to Diverticulosis of colon hospitalization at [facility] had n/v found to have gastritis globus [...] areds vitamins followed with dr. holliday and [facility] need notes. Denies retinopathy but in [...] areds vitamins followed with dr. holliday and [facility] need notes. Denies retinopathy but in [...] CKD, HAYDEE, COPD, CAD S/P STENTS, NSTEMI, L3UHCpmwtyrdefvno weight lossdiet and exercise follow with RD Related to Severe obesity (BMI 35.0-39.9) with comorbidity bmi 39.1 Related to Body mass index [BMI] 39.0-39.9, adult mri [facility] 05/01/2024enl arged multinodular right thyroid gland08/09/2024 [facility] thyroid ultrasoundIMPRESSION: Right mid gland 1.9 cm TI-RADS Category 3 nodule. 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 She does not have worm grower. Hx of jesus in past with gi [...] kidney disease, unspecified CKD stage, unspecified whether long term care pharmacist insulin use Lipid panel 08/2023 85/166/33/19 goal [...] severe left subclavian artery stenosis evaluated by [facility] surgery, has good brachial pulses and equal bilateral bps not contributing to symptoms, cta chest showed no pe, ct head showed no intracranial hemorrhageconsult [facility] 01/19/2023 incidental finding left subclavian stenosis [...] in march 2022Echo 02/23/2022 card report from [facility] dr. ngo TTE echoNormal LV systolic function with mild LVH with impaired relaxation filling pattern and elevated filling pressure. Normal cardiac valvular doppler, normal RV systolic pressure, no pericardial effusion. EF 55-60%, left atrium mildly dilated, Nuclear stress test 02/23/2022 [facility] shows ischemia/infarct pattern involving [...] 60s no orthostasis Related to Atherosclerosis of [place] coronary artery of [place] heart without angina pectoris Hx of Major [...] manage her O2 tubing independently. Patient Goal Complete Lilli is at risk for functional decline related to overactive bladder, Hx CVA, Hx SC, resting tremor, osteoarthritis, macular degeneration, diabetic retinopathy, [...]
[2025-09-24 13:17] VITALS: BP 130/70; PULSE 104
--- NOTE | 2025-09-24 13:17 | A.OFFVIS_ITS ---
Vital Signs 09/24/25 13:17 Height 4 ft 11 in BMI Reason not done Patient refused/unable BP 130/70 Blood Pressure Location Lt brachial Position Sitting Pulse 104 H Pulse Source Monitor Intake Visit Reasons: [address] [place]go [place] [facility] [place] Equipment Maintenance Supervisor Required: No Accompanied by: Daughter Allergies adhesive tape Allergy (Mild, Verified 09/24/25 13:22) Unknown bee pollen (bee stings) Allergy (Mild, Verified 09/24/25 13:22) Swelling oxycodone (OXYCODONE) Allergy (Mild, Verified 09/24/25 13:22) ITCHING, itchy prednisone Allergy (Verified 09/24/25 13:22) Unknown hydromorphone (From DILAUDID) Adverse Reaction (Mild, Verified 09/24/25 13:22) ITCHING Medication List - Last Reconciled 09/24/25 by Eugenio Lu NP albuterol sulfate 90 mcg/actuation 2 puffs inhalation Q4-6H PRN aspirin 81 mg PO DAILY atorvastatin 80 mg PO BEDTIME clopidogrel 75 mg PO DAILY docusate sodium (Colace) 100 mg PO BID ezetimibe 10 mg PO BEDTIME fluoxetine 20 mg PO DAILY fluticasone propion-salmeterol 230-21 mcg/actuation (Advair HFA) 2 puffs inhalation Q12H fluticasone propionate 50 mcg/actuation 1 spray intranasal DAILY furosemide (Lasix) 20 mg PO DAILY gabapentin 100 mg PO BEDTIME inhalational spacing device (Aerochamber Plus Z Stat spacer) As directed insulin glargine (Basaglar KwikPen U-100 Insulin) 24 units subcut BEDTIME ipratropium-albuterol 0.5 mg-3 mg(2.5 mg base)/3 mL 3 mL inhalation BID losartan 100 mg PO ONCE metformin 500 mg PO BIDWM metoprolol tartrate 37.5 mg PO BID oxybutynin chloride 5 mg PO BEDTIME oxycodone 2.5 mg PO Q4H PRN ropinirole 0.5 mg PO BEDTIME tiotropium bromide 2.5 mcg/actuation (Spiriva Respimat) 2 puffs inhalation DAILY tizanidine 4 mg PO BEDTIME PRN vit C,T-Ku-pxqiy-lutein-zeaxan 250-90-40-1 mg (PreserVision AREDS-2) 1 tab PO BID HPI Comments Details: This is a 79-year-old female patient coming in for a hospital discharge follow- up, accompanied by her daughter. Patient with a history of coronary artery disease with prior stents to LAD and LCX in 2021, CKD, COPD on home O2 of 2 L to 4 L, hypertension, and hyperlipidemia who had a fall in July and broke her right leg and therefore is in rehab currently. Patient was recently presented to the emergency room at [facility] with complaints of shortness of breath from her care home. There, the patient was treated for acute on chronic hypoxic respiratory failure secondary to COPD, UTI, and pneumonia. Patient was also noted to have GRISEL on CKD aortic due to decreased urine output for which patient's Lasix and losartan was on hold. Since returning to the care home, daughter notes that she has restarted on all medications. Daughter states that today patient is having mild shortness of breath with no reports of chest pain, palpitations, dizziness, orthopnea, PND, leg edema, presyncope, or syncope. Patient is reporting compliance with all her medications. [facility] Medical History Stenosis of left subclavian artery Multiple falls Macular degeneration Overactive bladder Chest tightness Abnormal nuclear stress test Cataract HAYDEE on CPAP Mild anemia Hypercholesterolemia Resting tremor Osteoarthritis Unsteady gait Vertigo Sleep apnea Diabetic retinopathy Hiatal hernia Depression COPD (chronic obstructive pulmonary disease) CKD (chronic kidney disease) Orthostatic hypotension NSTEMI (non-ST elevated myocardial infarction) Syncope HLD (hyperlipidemia) CAD (coronary artery disease) High cholesterol Diabetes Heart attack Stroke Surgical History Status post cardiac catheterization History of cataract extraction Hx of colonoscopy Hx of vaginal hysterectomy Stented coronary artery History of cardiac catheterization Family History Father CVD (cardiovascular disease) Mother Brain aneurysm Social History Household Members: Significant Other Housing: Apartment Are you a primary customer care team coach to a significant other at home: No Do you presently have visiting nurse or other home services: Yes Alcohol intake: never Patient Tobacco Use Status: Former Tobacco user Tobacco use type: Cigarette Years Smoked: 50 e-Cigarette/Vaping Use: Former Use Second Hand Smoke Exposure: No Advance Directives Date on File: 01/18/23 service: No Current occupational status: retired Review of Systems Const Denies daytime sleepiness, Denies difficulty sleeping, Denies snoring, Denies stops breathing during sleep and Denies weakness Card Denies chest pain, Denies rapid heart rate, Denies irregular heart rhythm, Denies claudication, Denies leg edema, Denies lightheadedness, Denies palpitations, Denies dyspnea, Denies dyspnea on exertion, Denies orthopnea, Denies paroxysmal nocturnal dyspnea and Denies slow heart rate Resp Denies cough, Denies dyspnea, Denies dyspnea on exertion and Denies snoring GI Reports no additional complaints, Denies hematochezia, Denies change in stool character and Denies dyspepsia Musc Denies abnormal gait, Denies muscle weakness and Denies numbness Neuro Denies abnormal gait, Denies numbness and Denies weakness Endo Denies palpitations Physical Exam Vital Signs: Last Vital Signs Pulse 104 H 09/24/25 13:17 BP 130/70 09/24/25 13:17 Const General: cooperative, healthy appearing, comfortable and no acute distress Orientation/consciousness: patient oriented x3 HEENT Head: Yes normal to inspection Neck Neck: Yes normal visual inspection, Yes trachea midline and Yes supple Chest Chest palpation & inspection: normal inspection of the chest Resp Other: On continuous O2 supplement Effort & Inspection: normal respiratory effort Auscultation: clear to auscultation bilaterally, no crackles, no rales, no rhonchi and no wheezes Cardio Jugular venous distension: no JVD Palpation: normal PMI Rate: tachycardic Rhythm: regular rhythm Heart sounds: S1 normal heart sound present, S2 normal heart sound present, no click, no gallops, no murmurs and no rubs Peripheral pulses: Peripheral pulses 2+ throughout GI Inspection: Yes normal to inspection Palpation (GI): Soft to palpation Auscultation: normal bowel sounds Skin General skin exam: no rashes or lesions noted Neuro General: patient oriented x3 Extrem Other: Wearing a brace right lower leg General: No no pedal edema and No calf tenderness Psych Appearance: grossly normal Mental Status: mental status grossly normal Speech and movement: Normal speech and movement present Office Procedures EKG Details: EKG today showed sinus tachycardia with PACs, rate of 104 beats per minute, diffused ST-T wave abnormality, [place], [place]. [id number], Complete Assessment & Plan Assessment & Plan (1) CAD (coronary artery disease): Code(s): I25.10 - Atherosclerotic heart disease of [place] coronary artery without angina pectoris Category: Medical Plan: History of coronary artery disease with prior PCI to LAD and LCX in 2021. EKG today with prominent ST and T-wave abnormality. Heart rate is also elevated at 104. No leg edema or wheezing noted on exam. We plan for a stat lab work that showed mildly improved proBNP to 4400 and creatinine within normal limits. Given this, we will increase her Lasix to 40 mg daily and increase her metoprolol to 100 b.i.d.. We will also get a stat echocardiogram and repeat labs in few days. The daughter was called with these results and plan. Advised daughter to bring patient in the emergency room in case of continued shortness of breath on this regimen. Daughter verbalizes understanding. Further treatment plans with the possible need for cardiac catheterization depending on findings. Reviewed case in detail with Dr. Ngo. (2) Dyspnea: Code(s): R06.00 - Dyspnea, unspecified Category: Medical Plan: As above. (3) COPD (chronic obstructive pulmonary disease): Code(s): J44.9 - Chronic obstructive pulmonary disease, unspecified Category: Medical Plan: Followed by pulmonology. Patient is going to try and get a sooner appointment. (4) HLD (hyperlipidemia): Code(s): E78.5 - Hyperlipidemia, unspecified Category: Medical Plan: Continue high-dose statin and Zetia therapy. LDL goal less than 70. (5) Hypertension: Code(s): I10 - Essential (primary) hypertension Category: Medical Plan: Blood pressure today is stable. Advised monitoring blood pressures at home with a goal less than 130/80. Advised on low-salt diet. (6) Hospital discharge follow-up: Code(s): Z09 - Encounter for follow-up examination after completed treatment for conditions other than malignant neoplasm Plan: As above. Advised on heart healthy diet, low-salt diet, daily weight monitoring, med compliance, and aggressive management of vascular risk factors. Plan to follow up in few weeks. In the interim, patient will call the office with any concerns or change in symptoms. This note was generated using voice recognition software. While every effort has been made to ensure accuracy and proper script supervisor, there may be occasional errors that could affect the content or meaning of the described symptoms. Orders: Orders AMB EKG-In Office 09/24/25 I25.10 - Atherosclerotic heart disease of [place] coronary artery without angina pectoris Complete Blood Count no Diff 09/24/25 I25.10 - Atherosclerotic heart disease of [place] coronary artery without angina pectoris Basic Metabolic Panel 09/24/25 I25.10 - Atherosclerotic heart disease of [place] coronary artery without angina pectoris NT Pro B Type Natriuretic Pept 09/24/25 I25.10 - Atherosclerotic heart disease of [place] coronary artery without angina pectoris CA echo transthoracic complete 09/24/25 R06.00 - Dyspnea, unspecified Medications: New furosemide (Lasix) 40 mg PO DAILY 90 tabs 3RF metoprolol tartrate 100 mg PO BID 60 tabs 4RF Coding Level of Care Code Est Pt Level 5 (18313) Complex EM visit Add On G2211 Diagnoses CAD (coronary artery disease) I25.10 Dyspnea R06.00 COPD (chronic obstructive pulmonary disease) J44.9 HLD (hyperlipidemia) E78.5 Hypertension I10 Hospital discharge follow-up Z09 CPT Codes EKG - CPT: 36670-[id number], Complete ([id number]) Time Spent (min) 40 Comment Time spent in reviewing the chart, test results, assessment, counseling and documentation.
--- OUTSIDE RECORDS SUMMARY | 2025-09-24 15:52 | XMS_ITS | Encounter Summary ---
Author Organization [facility] Address [address] [place] [address] Care Team Providers Care Plant Utility Person Name Role Phone Yong Dodson MD Primary Care Provider [phone] Encounter Details Date Type Department Care Team (Late st Contact Info) Description 09/24/2025 Lab Requisition [facility] - Main Lab [address] [facility] [place] [address] Mohit Willis MD [address] [place], [place] [id number] Heart failure, unspecified (CMS/HCC V24, CMS/HCC V28); Acute and chronic respiratory failure with hypoxia (CMS/HCC V24, CMS/HCC V28); Acute kidney failure, unspecified (CMS/HCC V24); Hypertensive heart and chronic kidney disease with heart failure and stage 1 through stage 4 chronic kidney disease, or unspecified chronic kidney disease (CMS/HCC V24, CMS/HCC V28); Stricture of artery (CMS/HCC V24); Shortness of breath Social History Tobacco Use Types Packs/Day Years [...] Procedure Name Priority Date/Time Associated Diagnosis Comments LAVENDER - EDTA Routine 09/24/2025 7:18 AM EST Heart failure, unspecified (CMS/HCC V24, CMS/HCC V28) Acute and chronic respiratory failure with hypoxia (CMS/HCC V24, CMS/HCC V28) Acute kidney failure, unspecified (CMS/HCC V24) Hypertensive heart and chronic kidney disease with heart failure and stage 1 through stage 4 chronic kidney disease, or unspecified chronic kidney disease (CMS/HCC V24, CMS/HCC V28) Stricture of artery (CMS/HCC V24) Shortness of breath COMPLETE BLOOD COUNT Routine 09/24/2025 7:18 AM EST Heart failure, unspecified (CMS/HCC V24, CMS/HCC V28) Acute and chronic respiratory failure with hypoxia (CMS/HCC V24, CMS/HCC V28) Acute kidney failure, unspecified (CMS/HCC V24) Hypertensive heart and chronic kidney disease with heart failure and stage 1 through stage 4 chronic kidney disease, or unspecified chronic kidney disease (CMS/HCC V24, CMS/HCC V28) Stricture of artery (CMS/HCC V24) Shortness of breath COMPREHENSIVE METABOLIC PANEL Routine 09/24/2025 7:18 AM EST Heart failure, unspecified (CMS/HCC V24, CMS/HCC V28) Acute and chronic respiratory failure with hypoxia (CMS/HCC V24, CMS/HCC V28) Acute kidney failure, unspecified (CMS/HCC V24) Hypertensive heart and chronic kidney disease with heart failure and stage 1 through stage 4 chronic kidney disease, or unspecified chronic kidney disease (CMS/HCC V24, CMS/HCC V28) Stricture of artery (CMS/HCC V24) Shortness of breath documented in this encounter Results * Lavender tube (09/24/2025 7:18 AM EST) Extra Tube Hold for add-ons. 09/24/2025 1:01 PM EST [facility] Comment:Auto resulted. Blood Venous blood specimen / Unknown Venipuncture / Unknown 09/24/2025 7:18 AM EST 09/24/2025 11:36 AM EST us Mohit Willis MD LAB BLOOD ORDERABLES Final Resul t [facility] [address] [place] [address], * (ABNORMAL) Comprehensive metabolic panel (09/24/2025 7:18 AM EST) [facility] Signature Sodium 137 133 - 145 mmol/L LAB CHEMISTRY METHOD 09/24/2025 12:13 PM [facility] Potassium 4.3 3.5 - 5.5 mmol/L LAB CHEMISTRY METHOD 09/24/2025 12:13 PM [facility] Chloride 102 96 - 110 mmol/L LAB CHEMISTRY METHOD 09/24/2025 12:13 PM [facility] CO2 28 21 - 32 mmol/L LAB CHEMISTRY METHOD 09/24/2025 12:13 PM [facility] Anion Gap 7 3 - 11 LAB CHEMISTRY METHOD 09/24/2025 12:13 PM [facility] Glucose 199(H) 70 - 100 mg/dL LAB CHEMISTRY METHOD 09/24/2025 12:13 PM [facility] BUN 22 5 - 25 mg/dL LAB CHEMISTRY METHOD 09/24/2025 12:13 PM [facility] Creatinine 1.11(H) 0.50 - 1.10 mg/dL LAB CHEMISTRY METHOD 09/24/2025 12:13 PM [facility] eGFR 51(L) >=60 mL/min/1. 73m2 LAB CHEMISTRY METHOD 09/24/2025 12:13 PM [facility] Comment:Calculation based on the Chronic Kidney Disease Epidemiology Collaboration (CKD-EPI) equation refit without adjustment for race. BUN/Creatinine Ratio 19.8 LAB CHEMISTRY METHOD 09/24/2025 12:13 PM [facility] Calcium 9.0 8.5 - 10.5 mg/dL LAB CHEMISTRY METHOD 09/24/2025 12:13 PM [facility] AST (SGOT) 8(L) 10 - 42 unit/L LAB CHEMISTRY METHOD 09/24/2025 12:13 PM [facility] ALT (SGPT) 18 10 - 60 unit/L LAB CHEMISTRY METHOD 09/24/2025 12:13 PM [facility] Alkaline Phosphatase 116 42 - 121 unit/L LAB CHEMISTRY METHOD 09/24/2025 12:13 PM [facility] Total Protein 6.1 6.0 - 8.0 g/dL LAB CHEMISTRY METHOD 09/24/2025 12:13 PM [facility] Albumin 2.6(L) 3.2 - 5.0 g/dL LAB CHEMISTRY METHOD 09/24/2025 12:13 PM [facility] Total Bilirubin 0.7 0.0 - 1.4 mg/dL LAB CHEMISTRY METHOD 09/24/2025 12:13 PM [facility] Blood Venous blood specimen / Unknown Venipuncture / Unknown 09/24/2025 7:18 AM EST 09/24/2025 10:26 AM EST us Mohit Willis MD LAB BLOOD ORDERABLES Final Resul t [facility] [address] [place] [address], * (ABNORMAL) Complete blood count (09/24/2025 7:18 AM EST) WBC 16.7(H) 4.8 - 10.8 K/mcL LAB HEMETOLOGY METHOD 09/24/2025 12:14 PM [facility] RBC 3.80 3.80 - 4.80 M/mcL LAB HEMETOLOGY METHOD 09/24/2025 12:14 PM [facility] Hemoglobin 11.1(L) 11.5 - 16.0 g/dL LAB HEMETOLOGY METHOD 09/24/2025 12:14 PM [facility] Hematocrit 36.0 35.0 - 47.0 % LAB HEMETOLOGY METHOD 09/24/2025 12:14 PM [facility] MCV 94.7 79.0 - 98.0 FL LAB HEMETOLOGY METHOD 09/24/2025 12:14 PM EST [facility] MCH 29.2 27.0 - 32.0 pcg LAB HEMETOLOGY METHOD 09/24/2025 12:14 PM [facility] MCHC 30.8(L) 32.0 - 37.0 g/dL LAB HEMETOLOGY METHOD 09/24/2025 12:14 PM [facility] RDW 15.4(H) 11.0 - 15.0 % LAB HEMETOLOGY METHOD 09/24/2025 12:14 PM [facility] Platelets 272 130 - 400 K/mcL LAB HEMETOLOGY METHOD 09/24/2025 12:14 PM [facility] MPV 10.5 7.0 - 11.0 FL LAB HEMETOLOGY METHOD 09/24/2025 12:14 PM [facility] NRBC 0.0 <1.0 % LAB HEMETOLOGY METHOD 09/24/2025 12:14 PM [facility] NRBC Absolute 0.00 <0.10 K/mcL LAB HEMETOLOGY METHOD 09/24/2025 12:14 PM [facility] Blood Venous blood specimen / Unknown Venipuncture / Unknown 09/24/2025 7:18 AM EST 09/24/2025 10:26 AM EST us Mohit Willis MD LAB BLOOD ORDERABLES Final Resul t [facility] [address] [place] [address], documented in this encounter Visit Diagnoses Diagnosis Heart failure, unspecified (CMS/HCC V24, CMS/HCC V28) Heart failure, unspecified Acute and chronic respiratory failure with hypoxia (CMS/HCC V24, CMS/HCC V28) Acute kidney failure, unspecified (CMS/HCC V24) Acute kidney failure, unspecified Hypertensive heart and chronic kidney disease with heart failure and stage 1 through stage 4 chronic kidney disease, or unspecified chronic kidney disease (CMS/HCC V24, CMS/HCC V28) Stricture of artery (CMS/[facility] V24) Stricture of artery Shortness of breath documented in this encounter Care Teams Plant Utility Person Relationship Specialty Start Date End Date Yong Dodson MD [address] [place] [address], [phone] PCP - General Family Medicine 07/25/25 documented as of this encounter
--- OUTSIDE RECORDS SUMMARY | 2025-09-24 15:52 | XMS_ITS | Encounter Summary ---
Author Organization [facility] Address [address] [place] [address] Care Team Providers Care Printer'S Assistant Name Role Phone Yong Dodson MD Primary Care Provider [phone] Encounter Details Date Type Department Care Team (Late st Contact Info) Description 08/18/2025 Lab Requisition [facility] - Main Lab [address] [place] [address] Yong Dodson MD 38 [facility] [address] [place], [phone] Unspecified infectious disease Social History Tobacco [...] Resul t [facility] [address] [place], [place] [address] [phone] documented in this encounter Visit Diagnoses Diagnosis Unspecified infectious disease documented in this encounter Care Teams Printer'S Assistant Relationship Specialty Start Date End Date Yong Dodson MD [address] [place] [address], [phone] PCP - General Family Medicine 07/25/25 documented as of this encounter
--- OUTSIDE RECORDS SUMMARY | 2025-09-24 15:52 | XMS_ITS | Encounter Summary ---
Author Organization [facility] Address [address] [place] [address] Care Team Providers Care Infrastructure Software Engineer Name Role Phone Yong Dodson MD Primary Care Provider [phone] Encounter Details Date Type Department Care Team (Late st Contact Info) Description 08/03/2025 Lab Requisition [facility] - Main Lab [address] [place] [address] Yong Dodson MD 38 [facility] [address] [place], [phone] Chronic obstructive pulmonary disease, unspecified (CMS/HCC [...] LAB CHEMISTRY METHOD 08/04/2025 12:39 PM EDT [facility] Potassium 4.2 3.5 - 5.5 mmol/L LAB CHEMISTRY METHOD 08/04/2025 12:39 PM [facility] Chloride 103 96 - 110 mmol/L LAB CHEMISTRY METHOD 08/04/2025 12:39 PM [facility] CO2 25 21 - 32 mmol/L LAB CHEMISTRY METHOD 08/04/2025 12:39 PM [facility] Anion Gap 10 3 - 11 LAB CHEMISTRY METHOD 08/04/2025 12:39 PM [facility] Glucose 181(H) 70 - 100 mg/dL LAB CHEMISTRY METHOD 08/04/2025 12:39 PM [facility] BUN 22 5 - 25 mg/dL LAB CHEMISTRY METHOD 08/04/2025 12:39 PM [facility] Creatinine 0.89 0.50 - 1.10 mg/dL LAB CHEMISTRY METHOD 08/04/2025 12:39 PM [facility] eGFR 66 >=60 mL/min/1. 73m2 LAB CHEMISTRY METHOD 08/04/2025 12:39 PM [facility] Comment:Calculation based on the Chronic Kidney Disease Epidemiology Collaboration (CKD-EPI) equation refit without adjustment for race. BUN/Creatinine Ratio 24.7 LAB CHEMISTRY METHOD 08/04/2025 12:39 PM [facility] Calcium 9.5 8.5 - 10.5 mg/dL LAB CHEMISTRY METHOD 08/04/2025 12:39 PM [facility] Blood Venous blood specimen / Unknown Venipuncture / Unknown 08/04/2025 6:15 AM EDT 08/04/2025 10:56 AM EDT us Yong Dodson MD LAB BLOOD ORDERABLES Final Resul t [facility] [address] [place] [address], [place] [phone] * (ABNORMAL) Complete blood count (08/04/2025 6:15 AM EDT) [facility] WBC 12.4(H) 4.8 - 10.8 K/mcL LAB HEMETOLOGY METHOD 08/04/2025 1:04 PM [facility] RBC 3.60(L) 3.80 - 4.80 M/mcL LAB HEMETOLOGY METHOD [facility] Hemoglobin 10.6(L) 11.5 - 16.0 g/dL LAB HEMETOLOGY METHOD 08/04/2025 1:04 PM [facility] Hematocrit 34.7(L) 35.0 - 47.0 % LAB HEMETOLOGY METHOD 08/04/2025 1:04 PM [facility] MCV 97.5 79.0 - 98.0 FL LAB HEMETOLOGY METHOD 08/04/2025 [facility] MCH 29.8 27.0 - 32.0 pcg LAB HEMETOLOGY METHOD 08/04/2025 1:04 PM [facility] MCHC 30.5(L) 32.0 - 37.0 g/dL LAB HEMETOLOGY METHOD 08/04/2025 1:04 PM [facility] RDW 14.6 11.0 - 15.0 % LAB HEMETOLOGY METHOD 08/04/2025 1:04 PM [facility] Platelets 274 130 - 400 K/mcL LAB HEMETOLOGY METHOD 08/04/2025 1:04 PM [facility] MPV 10.7 7.0 - 11.0 FL LAB HEMETOLOGY METHOD 08/04/2025 1:04 PM [facility] NRBC 0.0 <1.0 % LAB HEMETOLOGY METHOD [facility] NRBC Absolute 0.00 <0.10 K/mcL LAB HEMETOLOGY METHOD 08/04/2025 1:04 PM EDT [facility] Blood Venous blood specimen / Unknown Venipuncture / Unknown 08/04/2025 6:15 AM EDT 08/04/2025 10:56 AM EDT us Yong Dodson MD LAB BLOOD ORDERABLES Final Resul t [facility] [address] [place] [address], documented in this encounter Visit Diagnoses Diagnosis Chronic obstructive pulmonary disease, unspecified (CMS/HCC V24, CMS/HCC V28) documented in this encounter Care Teams Infrastructure Software Engineer Relationship Specialty Start Date End Date Yong Dodson MD [address] [place] [phone] PCP - General Family Medicine 07/25/25 documented as of this encounter
--- OUTSIDE RECORDS SUMMARY | 2025-09-24 15:52 | XMS_ITS | Encounter Summary ---
Author Organization [facility] Address [address] [place] [address] Care Team Providers Care Court Worker Name Role Phone Yong Dodson MD Primary Care Provider [phone] Encounter Details Date Type Department Care Team (Late st Contact Info) Description 08/04/2025 Lab Requisition [facility] - Main Lab 299 [facility] [place] [address] Yong Dodson MD [address] [place] [address] [address] [place], [phone] Chronic kidney disease, stage 3a (CMS/HCC [...] and culture (08/03/2025 3:00 PM EDT) Specific [place] Urine 1.020 1.003 - 1.030 LAB URINALYSIS - AUTOMATED METHOD 08/04/2025 11:52 AM [facility] pH, Urine 5.5 5.0 - 8.0 pH LAB URINALYSIS - AUTOMATED METHOD 08/04/2025 11:52 AM [facility] Leukocytes, Urine Negative Negative LAB URINALYSIS - AUTOMATED METHOD 08/04/2025 11:52 AM [facility] Nitrite, Urine Negative Negative LAB URINALYSIS - AUTOMATED METHOD 08/04/2025 11:52 AM [facility] Protein, Urine >=1000(A) <=Trace mg/dL LAB URINALYSIS - AUTOMATED METHOD 08/04/2025 11:52 AM [facility] Glucose, Urine 100(A) Negative mg/dL LAB URINALYSIS - AUTOMATED METHOD 08/04/2025 11:52 AM [facility] Ketones, Urine Negative Negative mg/dL LAB URINALYSIS - AUTOMATED METHOD 08/04/2025 11:52 AM [facility] Urobilinogen , Urine 0.2 0.2 - 1.0 mg/dL LAB URINALYSIS - AUTOMATED METHOD 08/04/2025 11:52 AM [facility] Bilirubin, Urine Negative Negative LAB URINALYSIS - AUTOMATED METHOD 08/04/2025 11:52 AM [facility] Blood, Urine Negative Negative LAB URINALYSIS - AUTOMATED METHOD 08/04/2025 11:52 AM [facility] RBC, Urine 1.8 0 - 4 /HPF LAB URINALYSIS - AUTOMATED METHOD 08/04/2025 11:52 AM [facility] WBC, Urine 1.4 0 - 4 /HPF LAB URINALYSIS - AUTOMATED METHOD 08/04/2025 11:52 AM EDT [facility] Squamous Epithelial, Urine 30 0 - 60 /LPF LAB URINALYSIS - AUTOMATED METHOD 08/04/2025 11:52 AM EDT [facility] Bacteria, Urine Negative Negative /HPF LAB URINALYSIS - AUTOMATED METHOD 08/04/2025 11:52 AM EDT [facility] Hyaline Casts, Urine 1.6 0 - 3 /LPF LAB URINALYSIS - AUTOMATED METHOD 08/04/2025 11:52 AM EDT [facility] Urine Urinary bladder structure / Unknown 08/03/2025 3:00 PM EDT 08/04/2025 11:39 AM EDT us Yong Dodson MD LAB URINE ORDERABLES Final Resul t Performing Organization Address City/[facility]/ZIP Co de Phone Number [facility] [address] [place] [address], [place] [phone] * Mazariegos urine culture tube (08/03/2025 3:00 PM EDT) Extra Tube Hold for add-ons. 08/04/2025 1:01 PM EDT [facility] Comment:Auto resulted. Urine Urinary bladder structure / Unknown 08/03/2025 3:00 PM EDT 08/04/2025 11:39 AM EDT us Yong Dodson MD LAB URINE ORDERABLES Final Resul t Performing Organization Address City/[facility]/ZIP Co de Phone Number [facility] [address] [place] [address], [place] [phone] documented in this encounter Visit Diagnoses Diagnosis Chronic kidney disease, stage 3a (CMS/HCC V24, CMS/HCC V28) Altered mental status, unspecified documented in this encounter Care Teams Court Worker Relationship Specialty Start Date End Date Yong Dodson MD 38 [facility] [address] [place], [phone] PCP - General Family Medicine 07/25/25 documented as of this encounter
--- OUTSIDE RECORDS SUMMARY | 2025-09-24 15:52 | XMS_ITS | Encounter Summary ---
Author Organization [facility] Address [address] [place] [address] Care Team Providers Care Straw Hat Machine Operator Name Role Phone Yong Dodson MD Primary Care Provider [phone] Encounter Details Date Type Department Care Team (Late st Contact Info) Description 08/02/2025 Lab Requisition [facility] - Main Lab 299 [facility] [place] [address] Yong Dodson MD [address] [place] [address] [address] [place], [phone] Chronic kidney disease, stage 3a (CMS/HCC [...] * Lipase (08/02/2025 12:29 PM EDT) Pathologist [facility] Lipase 54 13 - 75 unit/L LAB CHEMISTRY METHOD 08/02/2025 1:34 PM EDT [facility] Blood Venous blood specimen / Unknown Venipuncture / Unknown 08/02/2025 12:29 PM EDT 08/02/2025 12:53 PM EDT Yong Dodson MD LAB BLOOD ORDERABLES Final Resul t Performing Organization Address City/[facility]/ZIP Co de Phone Number [facility] [address] [place] [address], [place] [phone] * Amylase (08/02/2025 12:29 PM EDT) [facility] Amylase 45 25 - 115 unit/L LAB CHEMISTRY METHOD 08/02/2025 1:34 PM EDT [facility] Blood Venous blood specimen / Unknown Venipuncture / Unknown 08/02/2025 12:29 PM EDT 08/02/2025 12:53 PM EDT Yong Dodson MD LAB BLOOD ORDERABLES Final Resul t Performing Organization Address City/[facility]/ZIP Co de Phone Number [facility] [address] [place] [address], [place] [phone] * (ABNORMAL) Comprehensive metabolic panel (08/02/2025 12:29 PM EDT) Pathologist [facility] Sodium 138 133 - 145 mmol/L LAB CHEMISTRY METHOD 08/02/2025 1:34 PM EDT [facility] Potassium 4.6 3.5 - 5.5 mmol/L LAB CHEMISTRY METHOD 08/02/2025 1:34 PM EDT [facility] Chloride 102 96 - 110 mmol/L LAB CHEMISTRY METHOD 08/02/2025 1:34 PM [facility] CO2 26 21 - 32 mmol/L LAB CHEMISTRY METHOD 08/02/2025 1:34 PM [facility] Anion Gap 10 3 - 11 LAB CHEMISTRY METHOD 08/02/2025 1:34 PM [facility] Glucose 294(H) 70 - 100 mg/dL LAB CHEMISTRY METHOD 08/02/2025 1:34 PM [facility] BUN 17 5 - 25 mg/dL LAB CHEMISTRY METHOD 08/02/2025 1:34 PM [facility] Creatinine 1.04 0.50 - 1.10 mg/dL LAB CHEMISTRY METHOD 08/02/2025 1:34 PM [facility] eGFR 55(L) >=60 mL/min/1. 73m2 LAB CHEMISTRY METHOD 08/02/2025 1:34 PM [facility] Comment:Calculation based on the Chronic Kidney Disease Epidemiology Collaboration (CKD-EPI) equation refit without adjustment for race. BUN/Creatinine Ratio 16.3 LAB CHEMISTRY METHOD 08/02/2025 1:34 PM [facility] Calcium 9.1 8.5 - 10.5 mg/dL LAB CHEMISTRY METHOD 08/02/2025 1:34 PM [facility] AST (SGOT) 15 10 - 42 unit/L LAB CHEMISTRY METHOD 08/02/2025 1:34 PM [facility] ALT (SGPT) 15 10 - 60 unit/L LAB CHEMISTRY METHOD 08/02/2025 1:34 PM [facility] Alkaline Phosphatase 119 42 - 121 unit/L LAB CHEMISTRY METHOD 08/02/2025 1:34 PM [facility] Total Protein 6.3 6.0 - 8.0 g/dL LAB CHEMISTRY METHOD 08/02/2025 1:34 PM [facility] Albumin 2.8(L) 3.2 - 5.0 g/dL LAB CHEMISTRY METHOD 08/02/2025 1:34 PM EDT [facility] Total Bilirubin 0.6 0.0 - 1.4 mg/dL LAB CHEMISTRY METHOD 08/02/2025 1:34 PM EDT [facility] Blood Venous blood specimen / Unknown Venipuncture / Unknown 08/02/2025 12:29 PM EDT 08/02/2025 12:53 PM EDT us Yong Dodson MD LAB BLOOD ORDERABLES Final Resul t [facility] [address] [place] [address], [place] [phone] * (ABNORMAL) Complete blood count (08/02/2025 12:29 PM EDT) WBC 12.1(H) 4.8 - 10.8 K/mcL LAB HEMETOLOGY METHOD 08/02/2025 1:30 PM EDT [facility] RBC 3.70(L) 3.80 - 4.80 M/mcL LAB HEMETOLOGY METHOD 08/02/2025 1:30 PM EDT [facility] Hemoglobin 11.0(L) 11.5 - 16.0 g/dL LAB HEMETOLOGY METHOD 08/02/2025 1:30 PM EDT [facility] Hematocrit 35.7 35.0 - 47.0 % LAB HEMETOLOGY METHOD 08/02/2025 1:30 PM EDT [facility] MCV 97.3 79.0 - 98.0 FL LAB HEMETOLOGY METHOD 08/02/2025 1:30 PM EDT [facility] MCH 30.0 27.0 - 32.0 pcg LAB HEMETOLOGY METHOD 08/02/2025 1:30 PM EDT [facility] MCHC 30.8(L) 32.0 - 37.0 g/dL LAB HEMETOLOGY METHOD 08/02/2025 1:30 PM EDT [facility] RDW 14.5 11.0 - 15.0 % LAB HEMETOLOGY METHOD 08/02/2025 1:30 PM EDT [facility] Platelets 267 130 - 400 K/mcL LAB HEMETOLOGY METHOD 08/02/2025 1:30 PM EDT [facility] MPV 10.9 7.0 - 11.0 FL LAB HEMETOLOGY METHOD 08/02/2025 1:30 PM EDT [facility] NRBC 0.0 <1.0 % LAB HEMETOLOGY METHOD 08/02/2025 1:30 PM EDT [facility] NRBC Absolute 0.00 <0.10 K/mcL LAB HEMETOLOGY METHOD 08/02/2025 1:30 PM EDT [facility] Blood Venous blood specimen / Unknown Venipuncture / Unknown 08/02/2025 12:29 PM EDT 08/02/2025 12:53 PM EDT us Yong Dodson MD LAB BLOOD ORDERABLES Final Resul t [facility] [address] [place] [address], documented in this encounter Visit Diagnoses Diagnosis Chronic kidney disease, stage 3a (CMS/HCC V24, CMS/HCC V28) documented in this encounter Care Teams Straw Hat Machine Operator Relationship Specialty Start Date End Date Yong Dodson MD [address] [place] [address], [phone] PCP - General Family Medicine 07/25/25 documented as of this encounter
--- OUTSIDE RECORDS SUMMARY | 2025-09-24 15:52 | XMS_ITS | Encounter Summary ---
Author Organization [facility] Address [address] [place] [phone] Care Team Providers Care Forms Examiner Name Role Phone Yong Dodson MD Primary Care Provider [phone] Encounter Details Date Type Department Care Team (Late st Contact Info) Description 08/08/2025 Lab Requisition [facility] - Main Lab 299 [facility] [place] [address] Yong Dodson MD [address] [place] [address] [address] [place], [phone] Chronic obstructive pulmonary disease, unspecified (CMS/HCC [...] V28) documented in this encounter Care Teams Forms Examiner Relationship Specialty Start Date End Date Yong Dodson MD [address] [place] [address] [address] [place], [phone] PCP - General Family Medicine 07/25/25 documented as of this encounter
--- OUTSIDE RECORDS SUMMARY | 2025-09-24 15:52 | XMS_ITS | Encounter Summary ---
Author Organization [facility] Address [address] [place] [address] Care Team Providers Care Adjustment Supervisor Name Role Phone Yong Dodson MD Primary Care Provider [phone] Encounter Details Date Type Department Care Team (Late st Contact Info) Description 09/16/2025 Lab Requisition [facility] - Main Lab [address] [facility] [place] [address] Mohit Willis MD [address] [place] [address] Altered mental status, unspecified Social History Tobacco [...] URINALYSIS WITH REFLEX MICROSCOPIC AND CULTURE Routine 09/15/2025 12:00 AM EDT Altered mental status, unspecified MAZARIEGOS URINE CULTURE TUBE Routine 09/15/2025 12:00 AM EDT Altered mental status, unspecified URINALYSIS WITH REFLEX MICROSCOPIC AND CULTURE Routine 09/15/2025 12:00 AM EDT Altered mental status, unspecified CULTURE URINE Routine 09/15/2025 12:00 AM EDT Altered mental status, unspecified documented in this encounter Results * (ABNORMAL) Culture urine (09/15/2025 12:00 AM EDT) Culture, Urine 10,000-49,000 CFU/mL Enterococcus faecalis(A) NATHALIE 09/19/2025 8:38 AM EDT [facility] Comment: The organism value for this result has been updated. These results have been appended to the previously preliminary verified report. This is an edited result. Previous organism was Enterococcus species on 09/18/2025 at 1314 EDT. Culture, Urine >=100,000 CFU/mL Lactobacillus species(A) NATHALIE 09/19/2025 8:38 AM EDT [facility] Comment: The organism value for this result has been updated. These results have been appended to the previously preliminary verified report. Urine Urine specimen from urethra / Unknown 09/15/2025 09/16/2025 11:20 AM EDT Narrative Organism Antibiotic Method Susceptibility Enterococcus faecalis Benzylpenicillin NATHALIE 4 ug/ml: Susceptible Enterococcus faecalis Ampicillin NATHALIE <=2 ug/ml: Susceptible Enterococcus faecalis Ciprofloxacin NATHALIE <=0.5 ug/ml: Susceptible Enterococcus faecalis Levofloxacin NATHALIE 1 ug/ml: Susceptible Enterococcus faecalis Linezolid NATHALIE 2 ug/ml: Susceptible Enterococcus faecalis Vancomycin NATHALIE 1 ug/ml: Susceptible Enterococcus faecalis Tetracycline NATHALIE >=16 ug/ml: Resistant Enterococcus faecalis Nitrofurantoin NATHALIE <=16 ug/ml: Susceptible Mohit Willis MD LAB MICROBIOLOGY - GENERAL ORDER ALLISON Final Result [facility] [address] [place] [address], * (ABNORMAL) Urinalysis with reflex microscopic and culture (09/15/2025 12:00 AM EDT) [facility] [place] Urine 1.019 1.003 - 1.030 LAB URINALYSIS - AUTOMATED METHOD 09/16/2025 11:20 AM EDT [facility] pH, Urine 5.5 5.0 - 8.0 pH LAB URINALYSIS - AUTOMATED METHOD 09/16/2025 11:20 AM EDT [facility] Leukocytes, Urine Large(A) Negative LAB URINALYSIS - AUTOMATED METHOD 09/16/2025 11:20 AM [facility] Nitrite, Urine Negative Negative LAB URINALYSIS - AUTOMATED METHOD 09/16/2025 11:20 AM [facility] Protein, Urine 300(A) <=Trace mg/dL LAB URINALYSIS - AUTOMATED METHOD 09/16/2025 11:20 AM [facility] Glucose, Urine Negative Negative mg/dL LAB URINALYSIS - AUTOMATED METHOD 09/16/2025 11:20 AM [facility] Ketones, Urine Trace(A) Negative mg/dL LAB URINALYSIS - AUTOMATED METHOD 09/16/2025 11:20 AM [facility] Urobilinogen , Urine 1.0 0.2 - 1.0 mg/dL LAB URINALYSIS - AUTOMATED METHOD 09/16/2025 11:20 AM [facility] Bilirubin, Urine Negative Negative LAB URINALYSIS - AUTOMATED METHOD 09/16/2025 11:20 AM [facility] Blood, Urine Trace(A) Negative LAB URINALYSIS - AUTOMATED METHOD 09/16/2025 11:20 AM [facility] RBC, Urine 9.9(H) 0 - 4 /HPF LAB URINALYSIS - AUTOMATED METHOD 09/16/2025 11:20 AM [facility] WBC, Urine 1,366.1(H) 0 - 4 /HPF LAB URINALYSIS - AUTOMATED METHOD 09/16/2025 11:20 AM [facility] Squamous Epithelial, Urine 13 0 - 60 /LPF LAB URINALYSIS - AUTOMATED METHOD 09/16/2025 11:20 AM [facility] Bacteria, Urine Many(A) Negative /HPF LAB URINALYSIS - AUTOMATED METHOD 09/16/2025 11:20 AM [facility] Hyaline Casts, Urine 1.4 0 - 3 /LPF LAB URINALYSIS - AUTOMATED METHOD 09/16/2025 11:20 AM EDT [facility] Urine Urine specimen from urethra / Unknown 09/15/2025 09/16/2025 10:18 AM EDT us Mohit Willis MD LAB URINE ORDERABLES Final Resul t Performing Organization Address City/[facility]/ZIP Co de Phone Number [facility] [address] [place] [address], [place] [phone] * Mazariegos urine culture tube (09/15/2025 12:00 AM EDT) Extra Tube Hold for add-ons. 09/16/2025 12:01 PM EDT [facility] Comment:Auto resulted. Urine Urine specimen from urethra / Unknown 09/15/2025 09/16/2025 10:18 AM EDT Mohit Willis MD LAB URINE ORDERABLES Final Resul t Performing Organization Address [facility] [[email or web address]] Co de Phone Number [facility] [address] [place] [address], [place] [phone] documented in this encounter Visit Diagnoses Diagnosis Altered mental status, unspecified documented in this encounter Care Teams Adjustment Supervisor Relationship Specialty Start Date End Date Yong Dodson MD [address] [place] [phone] PCP - General Family Medicine 07/25/25 documented as of this encounter
--- OUTSIDE RECORDS SUMMARY | 2025-09-24 15:52 | XMS_ITS | Clinical Summary ---
Author Organization [address] Address [address] [place] [phone] Phone Care Team Providers Care Engine Builder Name Role Phone Yong Dodson MD Primary Care Provider [phone] Encounters Date Type Department Care Team Description 09/24/2025 Lab Requisition [facility] [address] [place] [phone] Mohit Willis MD Heart failure, unspecified ([facility] V24, CMS/[facility] V28); Acute and chronic respiratory failure with hypoxia (CMS/[facility] V24, CMS/[facility] V28); Acute kidney failure, unspecified ([facility]/HCC V24); Hypertensive heart and chronic kidney disease with heart failure and stage 1 through stage 4 chronic kidney disease, or unspecified chronic kidney disease (CMS/HCC V24, CMS/HCC V28); Stricture of artery ([facility] V24); Shortness of breath 09/16/2025 Lab Requisition [facility] [address] [place] [phone] Mohit Willis MD Altered mental status, unspecified 09/15/2025 Lab Requisition [facility] [address] [place] [phone] Mohit Willis MD Chronic obstructive pulmonary disease, unspecified (CMS/[facility] V24, CMS/HCC V28); Heart failure, unspecified (CMS/[facility] V24, CMS/[facility] V28) 08/18/2025 Lab Requisition [facility] [address] [place] [phone] Yong Dodson MD Unspecified infectious disease 08/08/2025 Lab Requisition [facility] [address] [place] [phone] Yong Dodson MD Chronic obstructive pulmonary disease, unspecified ([facility] V24, [facility] V28) 08/04/2025 Lab Requisition [facility] [address] [place] [phone] Yong Dodson MD Chronic kidney disease, stage 3a ([facility] V24, [facility] V28); Altered mental status, unspecified 08/03/2025 Lab Requisition [facility] [address] [place] [phone] Yong Dodson MD Chronic obstructive pulmonary disease, unspecified ([facility] V24, [facility] V28) 08/02/2025 Lab Requisition [facility] [address] [place] [phone] Yong Dodson MD Chronic kidney disease, stage 3a ([facility] V24, [facility] V28) 07/26/2025 Lab Requisition [facility] [address] [place] [phone] Yong Dodson MD Chronic obstructive pulmonary disease, unspecified ([facility] V24, [facility] V28) 07/25/2025 Lab Requisition [facility] [address] [place] [phone] Yong Dodson MD Chronic obstructive pulmonary disease, unspecified ([facility] V24, [facility] V28) from Last 3 Months Social History Tobacco Use Types Packs/Day Years Used Date Smoking Tobacco: Never Assessed Comments Unknown Sex and Gender Information Value Date Recorded Sex Assigned at Not on file Legal Sex Female 9:52 PM EST Gender Identity Not on file Sexual Orientation Not on file Plan of Treatment Health Maintenance Due Date Last Done Comments Diabetes: Annual Foot Exam 1955 Diabetes: Annual Retina Eye Exam 1955 Zoster Vaccines (2 of 3) 05/29/2019 04/03/2019, 09/0 11/2016 RSV Immunization Adult Patients (1 - 1-dose 75+ series) 2020 Depression Screening 11/20/2024 COVID-19 Vaccine (2024- season) 2025 09/29/2021, 01/19/2021, 12/28/2020 Influenza Vaccine (#1) 2025 , 08/25/2022, 10/01/2020, Additional history exists Cholesterol Screening (Lipid Panel) 07/25/2025 Falls Risk Assessment 07/25/2025 Hepatitis C Screening 07/25/2025 Medicare Annual Wellness Visit 07/25/2025 Osteoporosis Screening (Bone Density Screening) 07/25/2025 Social Influencers of Health Screening 07/25/2025 Diabetes: Annual Urine Albumin-Creatinine Ratio (uACR) 09/05/2025 Diabetes: Blood Sugar Control Test (HGBA1C) 09/05/2025 Diabetes: Annual GFR (Glomerular Filtration Rate) 09/15/2026 09/24/2025, 09/15/2025, 08/04/2025, Additional history exists Hypertension/CHF/CAD Annual BMP Blood Test 09/15/2026 09/24/2025, 09/15/2025, 08/04/2025, Additional history exists DTaP,Tdap,and Td Vaccines (4 - Td or Tdap) 03/30/2034 03/30/2024, 03/10/2015, 05/12/2012 Pneumococcal Vaccine: 50+ Years Completed 03/22/2016, 03/10/2015 HIB Vaccines Aged Out No longer eligi [...] to complete this topic RSV Immunization Patients Under 20 months Aged Out No longer eligible based on [...] of artery (CMS/HCC V24) Shortness of breath LAVENDER - EDTA Routine 09/15/2025 6:28 AM EDT Chronic obstructive pulmonary disease, unspecified (CMS/HCC V24, CMS/HCC V28) Heart failure, unspecified (CMS/HCC V24, CMS/HCC V28) CBC WITH AUTO DIFFERENTIAL Routine 09/15/2025 6:28 AM EDT Chronic obstructive pulmonary disease, unspecified (CMS/HCC V24, CMS/HCC V28) Heart failure, unspecified (CMS/HCC V24, CMS/HCC V28) COMPREHENSIVE METABOLIC PANEL Routine 09/15/2025 6:28 AM EDT Chronic obstructive pulmonary disease, unspecified (CMS/HCC V24, CMS/HCC V28) Heart failure, unspecified (CMS/HCC V24, CMS/HCC V28) CBC AND DIFFERENTIAL Routine 09/15/2025 6:28 AM EDT Chronic obstructive pulmonary disease, unspecified (CMS/HCC V24, CMS/HCC V28) Heart failure, unspecified (CMS/HCC V24, CMS/HCC V28) URINALYSIS WITH REFLEX MICROSCOPIC AND CULTURE Routine 09/15/2025 12:00 AM EDT Altered mental status, unspecified MAZARIEGOS URINE CULTURE TUBE Routine 09/15/2025 12:00 AM EDT Altered mental status, unspecified URINALYSIS WITH REFLEX MICROSCOPIC AND CULTURE Routine 09/15/2025 12:00 AM EDT Altered mental status, unspecified CULTURE URINE Routine 09/15/2025 12:00 AM EDT Altered mental status, unspecified COMPLETE BLOOD COUNT Routine 08/18/2025 6:33 AM [...] AM EDT Chronic obstructive pulmonary disease, unspecified ([facility] V24, [facility] V28) from Last 3 Months Results * Lavender tube (09/24/2025 7:18 AM EST) Only the most recent of2 resultswithin the time period is included. Pathologist [facility] Extra Tube Hold for add-ons. 09/24/2025 1:01 PM EST [facility] Comment:Auto resulted. Blood Venous blood specimen / Unknown Venipuncture / Unknown 09/24/2025 7:18 AM EST 09/24/2025 11:36 AM EST Mohit Willis MD LAB BLOOD ORDERABLES Final Resul t [facility] [address] [place] [address], * (ABNORMAL) Complete blood count (09/24/2025 7:18 AM EST) Only the most recent of6 resultswithin the time period is included. [facility] WBC 16.7(H) 4.8 - 10.8 K/mcL LAB HEMETOLOGY METHOD 09/24/2025 12:14 PM [facility] RBC 3.80 3.80 - 4.80 M[facility] LAB HEMETOLOGY METHOD 09/24/2025 12:14 PM [facility] Hemoglobin 11.1(L) 11.5 - 16.0 g/dL LAB HEMETOLOGY METHOD 09/24/2025 12:14 PM [facility] Hematocrit 36.0 35.0 - 47.0 % LAB HEMETOLOGY METHOD 09/24/2025 12:14 PM [facility] MCV 94.7 79.0 - 98.0 FL LAB HEMETOLOGY METHOD 09/24/2025 12:14 PM [facility] MCH 29.2 27.0 - 32.0 pcg LAB HEMETOLOGY METHOD 09/24/2025 12:14 PM EST [facility] MCHC 30.8(L) 32.0 - 37.0 g/dL LAB HEMETOLOGY METHOD 09/24/2025 12:14 PM [facility] RDW 15.4(H) 11.0 - 15.0 % LAB HEMETOLOGY METHOD 09/24/2025 12:14 PM EST [facility] Platelets 272 130 - 400 K/mcL LAB HEMETOLOGY METHOD 09/24/2025 12:14 PM [facility] MPV 10.5 7.0 - 11.0 FL LAB HEMETOLOGY METHOD 09/24/2025 12:14 PM [facility] NRBC 0.0 <1.0 % LAB HEMETOLOGY METHOD 09/24/2025 12:14 PM [facility] NRBC Absolute 0.00 <0.10 K/mcL LAB HEMETOLOGY METHOD 09/24/2025 12:14 PM [facility] Blood Venous blood specimen / Unknown Venipuncture / Unknown 09/24/2025 7:18 AM EST 09/24/2025 10:26 AM EST us Mohit Willis MD LAB BLOOD ORDERABLES Final Resul t [facility] [address] [place] [address], * (ABNORMAL) Comprehensive metabolic panel (09/24/2025 7:18 AM EST) Only the most recent of4 resultswithin the time period is included. Sodium 137 133 - 145 mmol/L LAB CHEMISTRY METHOD 09/24/2025 12:13 PM EST [facility] Potassium 4.3 3.5 - 5.5 mmol/L LAB CHEMISTRY METHOD 09/24/2025 12:13 PM [facility] Chloride 102 96 - 110 mmol/L LAB CHEMISTRY METHOD 09/24/2025 12:13 PM [facility] CO2 28 21 - 32 mmol/L LAB CHEMISTRY METHOD 09/24/2025 12:13 PM [facility] Anion Gap 7 3 - 11 LAB CHEMISTRY METHOD 09/24/2025 12:13 PM [facility] Glucose 199(H) 70 - 100 mg/dL LAB CHEMISTRY METHOD 09/24/2025 12:13 PM [facility] BUN 22 5 - 25 mg/dL LAB CHEMISTRY METHOD 09/24/2025 12:13 PM [facility] Creatinine 1.11(H) 0.50 - 1.10 mg/dL LAB CHEMISTRY METHOD 09/24/2025 12:13 PM [facility] eGFR 51(L) >=60 mL/min/1. 73m2 LAB CHEMISTRY METHOD 09/24/2025 12:13 PM [facility] Comment:Calculation based on the Chronic Kidney Disease Epidemiology Collaboration (CKD-EPI) equation refit without adjustment for race. BUN/Creatinine Ratio 19.8 LAB CHEMISTRY METHOD 09/24/2025 12:13 PM [facility] Calcium 9.0 8.5 - 10.5 mg/dL LAB CHEMISTRY METHOD 09/24/2025 12:13 PM [facility] AST (SGOT) 8(L) 10 - 42 unit/L LAB CHEMISTRY METHOD 09/24/2025 12:13 PM [facility] ALT (SGPT) 18 10 - 60 unit/L LAB CHEMISTRY METHOD 09/24/2025 12:13 PM [facility] Alkaline Phosphatase 116 42 - 121 unit/L LAB CHEMISTRY METHOD 09/24/2025 12:13 PM [facility] Total Protein 6.1 6.0 - 8.0 g/dL LAB CHEMISTRY METHOD 09/24/2025 12:13 PM EST [facility] Albumin 2.6(L) 3.2 - 5.0 g/dL LAB CHEMISTRY METHOD 09/24/2025 12:13 PM EST [facility] Total Bilirubin 0.7 0.0 - 1.4 mg/dL LAB CHEMISTRY METHOD 09/24/2025 12:13 PM EST [facility] Blood Venous blood specimen / Unknown Venipuncture / Unknown 09/24/2025 7:18 AM EST 09/24/2025 10:26 AM EST us Mohit Willis MD LAB BLOOD ORDERABLES Final Resul t [facility] [address] [place] [address], [place] [phone] * (ABNORMAL) CBC auto differential (09/15/2025 6:28 AM EDT) WBC 19.4(H) 4.8 - 10.8 K/mcL LAB HEMETOLOGY METHOD 09/15/2025 11:13 AM EDT [facility] RBC 3.10(L) 3.80 - 4.80 M/mcL LAB HEMETOLOGY METHOD 09/15/2025 11:13 AM [facility] Hemoglobin 9.4(L) 11.5 - 16.0 g/dL LAB HEMETOLOGY METHOD 09/15/2025 11:13 AM EDT [facility] Hematocrit 30.5(L) 35.0 - 47.0 % LAB HEMETOLOGY METHOD 09/15/2025 11:13 AM EDT [facility] MCV 97.1 79.0 - 98.0 FL LAB HEMETOLOGY METHOD 09/15/2025 11:13 AM [facility] MCH 29.9 27.0 - 32.0 pcg LAB HEMETOLOGY METHOD 09/15/2025 11:[facility] MCHC 30.8(L) 32.0 - 37.0 g/dL LAB HEMETOLOGY METHOD 09/15/2025 11:13 AM [facility] RDW 15.8(H) 11.0 - 15.0 % LAB HEMETOLOGY METHOD 09/15/2025 11:13 AM [facility] Platelets 215 130 - 400 K/mcL LAB HEMETOLOGY METHOD 09/15/2025 11:13 AM [facility] MPV 11.4(H) 7.0 - 11.0 FL LAB HEMETOLOGY METHOD 09/15/2025 11:13 AM [facility] NRBC 0.0 <1.0 % LAB HEMETOLOGY METHOD 09/15/2025 11:13 AM [facility] NRBC Absolute 0.00 <0.10 K/mcL LAB HEMETOLOGY METHOD 09/15/2025 11:13 AM [facility] Neutrophils Relative 86.5 % LAB HEMETOLOGY METHOD 09/15/2025 11:13 AM [facility] Lymphocytes Relative 6.8 % LAB HEMETOLOGY METHOD 09/15/2025 11:13 AM [facility] Monocytes Relative 4.9 % LAB HEMETOLOGY METHOD 09/15/2025 11:13 AM [facility] Eosinophils Relative 0.6 % LAB HEMETOLOGY METHOD 09/15/2025 11:13 AM [facility] Basophils Relative 0.3 % LAB HEMETOLOGY METHOD 09/15/2025 11:13 AM [facility] Immature Granulocytes Relative 0.9 % LAB HEMETOLOGY METHOD 09/15/2025 11:13 AM [facility] Neutrophils Absolute 16.77(H) 1.50 - 7.00 K/mcL LAB HEMETOLOGY METHOD 09/15/2025 11:13 AM EDT [facility] Lymphocytes Absolute 1.32 1.00 - 5.00 K/mcL LAB HEMETOLOGY METHOD 09/15/2025 11:13 AM EDT [facility] Monocytes Absolute 0.95 0.20 - 1.00 K/mcL LAB HEMETOLOGY METHOD 09/15/2025 11:13 AM EDT [facility] Eosinophils Absolute 0.11 0.00 - 0.50 [facility] LAB HEMETOLOGY METHOD 09/15/2025 11:13 AM EDT [facility] Basophils Absolute 0.06 0.00 - 0.20 [facility] LAB HEMETOLOGY METHOD 09/15/2025 11:13 AM EDT [facility] Immature Granulocytes Absolute 0.17(H) 0.00 - 0.03 [facility] LAB HEMETOLOGY METHOD 09/15/2025 11:13 AM T [facility] Blood Venous blood specimen / Unknown Venipuncture / Unknown 09/15/2025 6:28 AM EDT 09/15/2025 10:14 AM EDT us Mohit Willis MD LAB BLOOD ORDERABLES Final Resul t [facility] [address] [place] [address], * (ABNORMAL) Urinalysis with reflex microscopic and culture (09/15/2025 12:00 AM EDT) Only the most recent of2 resultswithin the time period is included. Specific [place] Urine 1.019 1.003 - 1.030 LAB URINALYSIS - AUTOMATED METHOD 09/16/2025 11:20 AM T [facility] pH, Urine 5.5 5.0 - 8.0 pH LAB URINALYSIS - AUTOMATED METHOD 09/16/2025 11:20 AM EDT [facility] Leukocytes, Urine Large(A) Negative LAB URINALYSIS - AUTOMATED METHOD 09/16/2025 11:20 AM [facility] Nitrite, Urine Negative Negative LAB URINALYSIS - AUTOMATED METHOD 09/16/2025 11:20 AM [facility] Protein, Urine 300(A) <=Trace mg/dL LAB URINALYSIS - AUTOMATED METHOD 09/16/2025 11:20 AM [facility] Glucose, Urine Negative Negative mg/dL LAB URINALYSIS - AUTOMATED METHOD 09/16/2025 11:20 AM [facility] Ketones, Urine Trace(A) Negative mg/dL LAB URINALYSIS - AUTOMATED METHOD 09/16/2025 11:20 AM [facility] Urobilinogen , Urine 1.0 0.2 - 1.0 mg/dL LAB URINALYSIS - AUTOMATED METHOD 09/16/2025 11:20 AM [facility] Bilirubin, Urine Negative Negative LAB URINALYSIS - AUTOMATED METHOD 09/16/2025 11:20 AM [facility] Blood, Urine Trace(A) Negative LAB URINALYSIS - AUTOMATED METHOD 09/16/2025 11:20 AM [facility] RBC, Urine 9.9(H) 0 - 4 /HPF LAB URINALYSIS - AUTOMATED METHOD 09/16/2025 11:20 AM [facility] WBC, Urine 1,366.1(H) 0 - 4 /HPF LAB URINALYSIS - AUTOMATED METHOD 09/16/2025 11:20 AM [facility] Squamous Epithelial, Urine 13 0 - 60 /LPF LAB URINALYSIS - AUTOMATED METHOD 09/16/2025 11:20 AM [facility] Bacteria, Urine Many(A) Negative /HPF LAB URINALYSIS - AUTOMATED METHOD 09/16/2025 11:20 AM [facility] Hyaline Casts, Urine 1.4 0 - 3 /LPF LAB URINALYSIS - AUTOMATED METHOD 09/16/2025 11:20 AM EDT [facility] Urine Urine specimen from urethra / Unknown 09/15/2025 09/16/2025 10:18 AM EDT us Mohit Willis MD LAB URINE ORDERABLES Final Resul t Performing Organization Address [facility] de Phone Number [facility] [address] [place] [address], [place] [phone] * Mazariegos urine culture tube (09/15/2025 12:00 AM EDT) Only the most recent of2 resultswithin the time period is included. Extra Tube Hold for add-ons. 09/16/2025 12:01 PM EDT [facility] Comment:Auto resulted. Urine Urine specimen from urethra / Unknown 09/15/2025 09/16/2025 10:18 AM EDT us Mohit Willis MD LAB URINE ORDERABLES Final Resul t Performing Organization Address [facility] de Phone Number [facility] [address] [place] [address], [place] [phone] * (ABNORMAL) Culture urine (09/15/2025 12:00 AM EDT) Culture, Urine 10,000-49,000 CFU/mL Enterococcus faecalis(A) NATHALIE 09/19/2025 8:38 AM EDT [facility] Comment: The organism value for this result has been updated. These results have been appended to the previously preliminary verified report. This is an edited result. Previous organism was Enterococcus species on 09/18/2025 at 1314 EDT. Culture, Urine >=100,000 CFU/mL Lactobacillus species(A) NATHALIE 09/19/2025 8:38 AM EDT [facility] Comment: The organism value for [...] Enterococcus faecalis Nitrofurantoin NATHALIE <=16 ug/ml: Susceptible us Mohit Willis MD LAB MICROBIOLOGY - GENERAL ORDER ALLISON Final Result [facility] [address] [place] [address], [place] [phone] * (ABNORMAL) Basic metabolic panel (08/04/2025 6:15 AM EDT) Only the most recent of2 resultswithin the time period is included. Sodium 138 133 - 145 mmol/L LAB CHEMISTRY METHOD 08/04/2025 12:39 PM [facility] Potassium 4.2 3.5 - [...] mg/dL LAB CHEMISTRY METHOD 08/04/2025 12:39 PM EDT [facility] Creatinine 0.89 0.50 - 1.10 mg/dL LAB CHEMISTRY METHOD 08/04/2025 12:39 PM EDT [facility] eGFR 66 >=60 mL/min/1. 73m2 LAB CHEMISTRY METHOD 08/04/2025 12:39 PM EDT [facility] Comment:Calculation based on the Chronic Kidney Disease Epidemiology Collaboration (CKD-EPI) equation refit without adjustment for race. BUN/Creatinine Ratio 24.7 LAB CHEMISTRY METHOD 08/04/2025 12:39 PM EDT [facility] Calcium 9.5 8.5 - 10.5 mg/dL LAB CHEMISTRY METHOD 08/04/2025 12:39 PM EDT [facility] Blood Venous blood specimen / Unknown Venipuncture / Unknown 08/04/2025 6:15 AM EDT 08/04/2025 10:56 AM EDT us Yong Dodson MD LAB BLOOD ORDERABLES Final Resul t [facility] [address] [place] [address], [place] [phone] * Lipase (08/02/2025 12:29 PM EDT) Lipase 54 13 - 75 unit/L LAB CHEMISTRY METHOD 08/02/2025 1:34 PM EDT [facility] Blood Venous blood specimen / Unknown Venipuncture / Unknown 08/02/2025 12:29 PM EDT 08/02/2025 12:53 PM EDT us Yong Dodson MD LAB BLOOD ORDERABLES Final Resul t [facility] [address] [place] [address], [place] [phone] * Amylase (08/02/2025 12:29 PM EDT) Amylase 45 25 - 115 unit/L LAB CHEMISTRY METHOD 08/02/2025 1:34 PM EDT [facility] Blood Venous blood specimen / Unknown Venipuncture / Unknown 08/02/2025 12:29 PM EDT 08/02/2025 12:53 PM EDT us Yong Dodson MD LAB BLOOD ORDERABLES Final Resul t [facility] [address] [place] [address], [place] [phone] from Last 3 Months Insurance MEDICAID - [place] [facility] MEDIC[employer]AGE Care Teams Engine Builder Relationship Specialty Start Date End Date Yong Dodson MD [address] [place] [phone] PCP - General Family Medicine 07/25/25
--- OUTSIDE RECORDS SUMMARY | 2025-09-24 15:53 | XMS_ITS | Clinical Summary ---
Author Organization [facility] Address [address] [place] [address] Phone Care Team Providers Care Biodiesel Product Manager Name Role Phone Pcp, Unknown Primary Care Provider Migdalia Wing MD Unavailable [phone] Social History Tobacco Use Types Packs/Day [...] B [place] B Member Subscriber Plan / Payer (Ef fective 2012-Present) Name:Lilli Yepez Member ID:[id number] Relation to Subscriber:Self Name:Lilli Yepez Subscriber ID:[id number] Payer ID:[id number] Group ID:Not on file Type:Medicare Address: [employer] ([email or web address]) [address] [place], [place] [id number] MEDICARE PART A & B Member Subscriber Plan / Payer (Ef fective 2012-Present) Name:Lilli Yepez Member ID:[id number] Relation to Subscriber:Self Name:Lilli Yepez Subscriber ID:[id number] Payer ID:[id number] Group ID:Not on file Type:Medicare Address: [employer] ([email or web address]) [address] [place] [phone] [place] B Member Subscriber Plan / Payer (Ef fective 2012-Present) Name:Lilli Yepez Member ID:[id number] Relation to Subscriber:Self Name:Lilli Yepez Subscriber ID:[id number] Payer ID:[id number] Group ID:Not on file Type:Medicare Address: [employer] ([email or web address]) [address] [place] [address] MEDICARE PART A & B Member Subscriber Plan / Payer (Ef fective 2012-Present) Name:Lilli Yepez Member ID:[id number] Relation to Subscriber:Self Name:Lilli Yepez Subscriber ID:[id number] Payer ID:[id number] Group ID:Not on file Type:Medicare Address: [employer] ([email or web address]) [address] [place] [address] MEDICARE PART A & B Member Subscriber Plan / Payer (Ef fective 2012-Present) Name:Lilli Yepez Member ID:[id number] Relation to Subscriber:Self Name:Lilli Yepez Subscriber ID:[id number] Payer ID:[id number] Group ID:Not on file Type:Medicare Address: [employer] ([email or web address]) [address] [place] [address] MEDICARE PART A & B Member Subscriber Plan / Payer ( fective 2012-Present) Name:Lilli Yepez Member ID:[id number] Relation to Subscriber:Self Name:Lilli Yepez Subscriber ID:[id number] Payer ID:[id number] Group ID:Not on file Type:Medicare Address: [employer] ([email or web address]) [address] [place] [address] MEDICARE PART A & B Member Subscriber Plan / Payer ( fective 2012-Present) Name:Lilli Yepez Member ID:[id number] Relation to Subscriber:Self Name:Lilli Yepez Subscriber ID:[id number] Payer ID:[id number] Group ID:Not on file Type:Medicare Address: [employer] ([email or web address]) [address] [place] [address] MEDICARE PART A & B [place] PART A & B [facility] PART [facility] MEDICARE PART A & B MEDICARE PART A & B MEDICARE PART A & B MEDICARE PART A & B Member Subscriber Plan / Payer (Ef fective 2012-) Name:Lilli Yepez Member ID:[id number] Relation to Subscriber:Self Name:Lilli Yepez Subscriber ID:[id number] Payer ID:[id number] Group ID:Not on file Type:Medicare Address: [employer] ([email or web address]) [address] [place] [address] MEDICARE PART A & B Member Subscriber Plan / Payer (Ef fective 2012-Present) Name:Lilli Yepez Member ID:[id number] Relation to Subscriber:Self Name:Lilli Yepez Subscriber ID:[id number] Payer ID:[id number] Group ID:Not on file Type:Medicare Address: [employer] ([email or web address]) [address] [place] [address] MEDICARE PART A & B Care Teams Biodiesel Product Manager Relationship Specialty Start Date End Date Pcp, Unknown PCP - General 05/24/24 Migdalia Barahona MD [address] [place] [phone] [email or web address] Internal Medicine 05/24/24 Additional Source Comments The information contained in this document represents components of the legal health record. It is not the complete legal health record.[facility]
--- OUTSIDE RECORDS SUMMARY | 2025-09-24 15:53 | XMS_ITS | Encounter Summary ---
Author Organization [facility] Address [address] [place] [address] Care Team Providers Care Inseamer Name Role Phone Yong Dodson MD Primary Care Provider [phone] Encounter Details Date Type Department Care Team (Late st Contact Info) Description 07/25/2025 Lab Requisition [facility] - Main Lab [address] [place] [address] Yong Dodson MD 38 [facility] [address] [place], [address] Chronic obstructive pulmonary disease, unspecified (CMS/HCC [...] LAB CHEMISTRY METHOD 07/25/2025 9:28 AM EDT [facility] Potassium 4.6 3.5 - 5.5 mmol/L LAB CHEMISTRY METHOD 07/25/2025 9:28 AM [facility] Chloride 100 96 - 110 mmol/L LAB CHEMISTRY METHOD 07/25/2025 9:28 AM [facility] CO2 29 21 - 32 mmol/L LAB CHEMISTRY METHOD 07/25/2025 9:28 AM [facility] Anion Gap 6 3 - 11 LAB CHEMISTRY METHOD 07/25/2025 9:28 AM [facility] Glucose 199(H) 70 - 100 mg/dL LAB CHEMISTRY METHOD 07/25/2025 9:28 AM [facility] BUN 31(H) 5 - 25 mg/dL LAB CHEMISTRY METHOD 07/25/2025 9:28 AM [facility] Creatinine 1.37(H) 0.50 - 1.10 mg/dL LAB CHEMISTRY METHOD 07/25/2025 9:28 AM [facility] eGFR 39(L) >=60 mL/min/1. 73m2 LAB CHEMISTRY METHOD 07/25/2025 9:28 AM [facility] Comment:Calculation based on the Chronic Kidney Disease Epidemiology Collaboration (CKD-EPI) equation refit without adjustment for race. BUN/Creatinine Ratio 22.6 LAB CHEMISTRY METHOD 07/25/2025 9:28 AM [facility] Calcium 9.4 8.5 - 10.5 mg/dL LAB CHEMISTRY METHOD 07/25/2025 9:28 AM [facility] AST (SGOT) 29 10 - 42 unit/L LAB CHEMISTRY METHOD 07/25/2025 9:28 AM [facility] ALT (SGPT) 11 10 - 60 unit/L LAB CHEMISTRY METHOD 07/25/2025 9:28 AM [facility] Alkaline Phosphatase 105 42 - 121 unit/L LAB CHEMISTRY METHOD 07/25/2025 9:28 AM [facility] Total Protein 5.9(L) 6.0 - 8.0 g/dL LAB CHEMISTRY METHOD 07/25/2025 9:28 AM EDT [facility] Albumin 2.7(L) 3.2 - 5.0 g/dL LAB CHEMISTRY METHOD 07/25/2025 9:28 AM EDT [facility] Total Bilirubin 0.5 0.0 - 1.4 mg/dL LAB CHEMISTRY METHOD 07/25/2025 9:28 AM EDT [facility] Blood Venous blood specimen / Unknown Venipuncture / Unknown 07/25/2025 5:24 AM EDT 07/25/2025 8:29 AM EDT us Yong Dodson MD LAB BLOOD ORDERABLES Final Resul t [facility] [address] [place] [address], * (ABNORMAL) Complete blood count (07/25/2025 5:24 AM EDT) WBC 10.7 4.8 - 10.8 K/mcL LAB HEMETOLOGY METHOD 07/25/2025 8:52 AM [facility] RBC 3.30(L) 3.80 - 4.80 M/mcL LAB HEMETOLOGY METHOD 07/25/2025 8:52 AM EDT [facility] Hemoglobin 9.9(L) 11.5 - 16.0 g/dL LAB HEMETOLOGY METHOD 07/25/2025 8:52 AM EDT [facility] Hematocrit 32.6(L) 35.0 - 47.0 % LAB HEMETOLOGY METHOD 07/25/2025 8:52 AM EDT [facility] MCV 97.6 79.0 - 98.0 FL LAB HEMETOLOGY METHOD 07/25/2025 8:52 AM EDT [facility] MCH 29.6 27.0 - 32.0 pcg LAB HEMETOLOGY METHOD 07/25/2025 8:52 AM EDT [facility] MCHC 30.4(L) 32.0 - 37.0 g/dL LAB HEMETOLOGY METHOD 07/25/2025 8:52 AM EDT [facility] RDW 14.5 11.0 - 15.0 % LAB HEMETOLOGY METHOD 07/25/2025 8:52 AM EDT [facility] Platelets 171 130 - 400 K/mcL LAB HEMETOLOGY METHOD 07/25/2025 8:52 AM EDT [facility] MPV 12.0(H) 7.0 - 11.0 FL LAB HEMETOLOGY METHOD 07/25/2025 8:52 AM EDT [facility] NRBC 0.0 <1.0 % LAB HEMETOLOGY METHOD 07/25/2025 8:52 AM EDT [facility] NRBC Absolute 0.00 <0.10 K/mcL LAB HEMETOLOGY METHOD 07/25/2025 8:52 AM T [facility] Blood Venous blood specimen / Unknown Venipuncture / Unknown 07/25/2025 5:24 AM EDT 07/25/2025 8:29 AM EDT us Yong Dodson MD LAB BLOOD ORDERABLES Final Resul t [facility] [address] [place] [address], documented in this encounter Visit Diagnoses Diagnosis Chronic obstructive pulmonary disease, unspecified (CMS/HCC V24, CMS/HCC V28) documented in this encounter Care Teams Inseamer Relationship Specialty Start Date End Date Yong Dodson MD [address] [place] [address], [phone] PCP - General Family Medicine 07/25/25 documented as of this encounter
--- OUTSIDE RECORDS SUMMARY | 2025-09-24 15:53 | XMS_ITS | Patient Health Record ---
Author Organization [facility] Address [address] [place] [address] Care Team Providers Care Authorization Rep Name Role Phone Nahid Waterman MD Primary Care Provider Deni Chacon Unavailable [phone] Allergies Allergen (clinical drug ingredient) Drug/Non Drug [...] Test Name Order Date Glucose Fasting 08/17/2015 93294-[id number] NAIL, 6 OR MORE 11/09/2015 64137-MKSKZZY NAIL, 6 OR MORE 08/17/2015 19251-UVLFPOU NAIL, 6 OR MORE 02/11/2016 04790-VYSZJPR NAIL, 6 OR MORE 12/19/2016 05885-QENCGCH NAIL, 6 OR MORE 03/16/2017 43117-OXMLSRG NAIL, 6 OR MORE 06/22/2017 37826-NBHPJLN NAIL, 6 OR MORE 09/21/2017 17725-BSWTILW NAIL, 6 OR MORE 12/21/2017 73694-DYZFWQR NAIL, 6 OR MORE 03/21/2018 07430-ACWQVVW NAIL, 6 OR MORE 10/03/2018 00017-Nkmmjfuz Plate 08/17/2015 36409-DOWL SKIN LESIONS, OVER 4 12/19/19 17 54322-WZNP SKIN LESIONS, OVER 4 03/21/20 18 81467-KTTA SKIN LESIONS, OVER 4 03/16/20 17 39722-MWDS SKIN LESIONS, OVER 4 06/22/20 17 63591-ZSYG SKIN LESIONS, OVER 4 10/03/20 18 40735-APXC SKIN LESIONS, 2 TO 4 08/19/20 19 08120-WHEZ SKIN LESIONS, 2 TO 4 01/20/20 20 91485-PHHZ SKIN LESIONS, 2 TO 4 05/11/20 20 51126-DOMM SKIN LESIONS, 2 TO 4 08/24/20 20 18480-CHJY SKIN LESIONS, 2 TO 4 09/21/20 17 32830-RNJW SKIN LESIONS, 2 TO 4 12/21/19 18 71079-SLOP SKIN LESIONS, 2 TO 4 02/11/20 16 99338-EQTT SKIN LESIONS, 2 TO 4 08/17/20 15 92325-SRVM SKIN LESIONS, 2 TO 4 11/09/20 15 83847-KHMTQKBU OF HEMATOMA/FLUID 019 Insurance Providers Payer Name Payer Address Payer Phone Subscriber Number Group Number Insured Name Patient Relationship to Insured Coverage Start Date Coverage End Date Medicare [employer] [address] [place] [address] [id number] Lilli Yepez Self - patient is the insured 3 Medical (General) History Medical History History ICD Code Anemia Arthritis Cholesterol Diabetic Diverticulosis Headaches Migraines High blood pressure Lung disease Macular degeneration Stroke Measles Chicken pox Surgical History Surgery Date(Month/Year) hysterectomy 30 years ago cyst removal 30 years ago section 1974 Hospitalization History Reason Date(Month/Year) [facility]- stent put in on right side 12/09 [facility]- [facility]- 3 months 05/05/2019 [facility] - Heart attack - 2 stents put in on left side 11/07
--- OUTSIDE RECORDS SUMMARY | 2025-09-24 15:53 | XMS_ITS | Encounter Summary ---
Author Organization [facility] Address [address] [place] [address] Care Team Providers Care Byproducts Pump Operator Name Role Phone Yong Dodson MD Primary Care Provider [phone] Encounter Details Date Type Department Care Team (Late st Contact Info) Description 09/15/2025 Lab Requisition [facility] - Main Lab [address] [facility] [place] [address] Mohit Willis MD [address] [place], [place] [id number] Chronic obstructive pulmonary disease, unspecified (CMS/HCC V24, CMS/HCC V28); Heart failure, unspecified (CMS/HCC V24, CMS/HCC V28) Social History [...] Procedure Name Priority Date/Time Associated Diagnosis Comments CBC WITH AUTO DIFFERENTIAL Routine 09/15/2025 6:28 AM EDT Chronic obstructive pulmonary disease, unspecified (CMS/HCC V24, CMS/HCC V28) Heart failure, unspecified (CMS/HCC V24, CMS/HCC V28) LAVENDER - EDTA Routine 09/15/2025 6:28 AM [...] Heart failure, unspecified (CMS/HCC V24, CMS/HCC V28) documented in this encounter Results * Lavender tube (09/15/2025 6:28 AM EDT) Pathologist [facility] Extra Tube Hold for add-ons. 09/15/2025 12:01 PM EDT [facility] Comment:Auto resulted. Blood Venous blood specimen / Unknown Venipuncture / Unknown 09/15/2025 6:28 AM EDT 09/15/2025 10:15 AM EDT us Mohit Willis MD LAB BLOOD ORDERABLES Final Resul t [facility] [address] [place] [address], * (ABNORMAL) CBC auto differential (09/15/2025 6:28 AM EDT) [facility] WBC 19.4(H) 4.8 - 10.8 K/mcL LAB HEMETOLOGY METHOD 09/15/2025 11:13 AM EDT [facility] RBC 3.10(L) 3.80 - 4.80 M/mcL LAB HEMETOLOGY METHOD 09/15/2025 11:13 AM EDT [facility] Hemoglobin 9.4(L) 11.5 - 16.0 g/dL LAB HEMETOLOGY METHOD 09/15/2025 11:13 AM EDT [facility] Hematocrit 30.5(L) 35.0 - 47.0 % LAB HEMETOLOGY METHOD 09/15/2025 11:13 AM [facility] MCV 97.1 79.0 - 98.0 FL LAB HEMETOLOGY METHOD 09/15/2025 11:13 AM [facility] MCH 29.9 27.0 - 32.0 pcg LAB HEMETOLOGY METHOD 09/15/2025 11:13 AM [facility] MCHC 30.8(L) 32.0 - 37.0 g/dL LAB HEMETOLOGY METHOD 09/15/2025 11:13 AM [facility] RDW 15.8(H) 11.0 - 15.0 % LAB HEMETOLOGY METHOD 09/15/2025 11:13 AM [facility] Platelets 215 130 - 400 K/mcL LAB HEMETOLOGY METHOD 09/15/2025 11:13 AM [facility] MPV 11.4(H) 7.0 - 11.0 FL LAB HEMETOLOGY METHOD 09/15/2025 11:13 AM [facility] NRBC 0.0 <1.0 % LAB HEMETOLOGY METHOD 09/15/2025 11:13 AM [facility] NRBC Absolute 0.00 <0.10 K/mcL LAB HEMETOLOGY METHOD 09/15/2025 11:13 AM [facility] Neutrophils Relative 86.5 % LAB HEMETOLOGY METHOD 09/15/2025 11:13 AM [facility] Lymphocytes Relative 6.8 % LAB HEMETOLOGY METHOD 09/15/2025 11:13 AM [facility] Monocytes Relative 4.9 % LAB HEMETOLOGY METHOD 09/15/2025 11:13 AM [facility] Eosinophils Relative 0.6 % LAB HEMETOLOGY METHOD 09/15/2025 11:13 AM [facility] Basophils Relative 0.3 % LAB HEMETOLOGY METHOD 09/15/2025 11:13 AM EDT [facility] Immature Granulocytes Relative 0.9 % LAB HEMETOLOGY METHOD 09/15/2025 11:13 AM EDT [facility] Neutrophils Absolute 16.77(H) 1.50 - 7.00 K/mcL LAB HEMETOLOGY METHOD 09/15/2025 11:13 AM EDT [facility] Lymphocytes Absolute 1.32 1.00 - 5.00 K/mcL LAB HEMETOLOGY METHOD 09/15/2025 11:13 AM EDT [facility] Monocytes Absolute 0.95 0.20 - 1.00 K/mcL LAB HEMETOLOGY METHOD 09/15/2025 11:13 AM EDT [facility] Eosinophils Absolute 0.11 0.00 - 0.50 K/mcL LAB HEMETOLOGY METHOD 09/15/2025 11:13 AM EDT [facility] Basophils Absolute 0.06 0.00 - 0.20 K/mcL LAB HEMETOLOGY METHOD 09/15/2025 11:13 AM EDT [facility] Immature Granulocytes Absolute 0.17(H) 0.00 - 0.03 K/mcL LAB HEMETOLOGY METHOD 09/15/2025 11:13 AM [facility] Blood Venous blood specimen / Unknown Venipuncture / Unknown 09/15/2025 6:28 AM EDT 09/15/2025 10:14 AM EDT us Mohit Willis MD LAB BLOOD ORDERABLES Final Resul t [facility] [address] [place] [address], * (ABNORMAL) Comprehensive metabolic panel (09/15/2025 6:28 AM EDT) [facility] Sodium 134 133 - 145 mmol/L LAB CHEMISTRY METHOD 09/15/2025 1:06 PM [facility] Potassium 4.7 3.5 - 5.5 mmol/L LAB CHEMISTRY METHOD 09/15/2025 1:06 PM [facility] Chloride 99 96 - 110 mmol/L LAB CHEMISTRY METHOD 09/15/2025 1:06 PM [facility] CO2 23 21 - 32 mmol/L LAB CHEMISTRY METHOD 09/15/2025 1:06 PM [facility] Anion Gap 12(H) 3 - 11 LAB CHEMISTRY METHOD 09/15/2025 1:06 PM [facility] Glucose 159(H) 70 - 100 mg/dL LAB CHEMISTRY METHOD 09/15/2025 1:06 PM [facility] BUN 39(H) 5 - 25 mg/dL LAB CHEMISTRY METHOD 09/15/2025 1:06 PM [facility] Creatinine 2.00(H) 0.50 - 1.10 mg/dL LAB CHEMISTRY METHOD 09/15/2025 1:06 PM [facility] eGFR 25(L) >=60 mL/min/1. 73m2 LAB CHEMISTRY METHOD 09/15/2025 1:06 PM [facility] Comment:Calculation based on the Chronic Kidney Disease Epidemiology Collaboration (CKD-EPI) equation refit without adjustment for race. BUN/Creatinine Ratio 19.5 LAB CHEMISTRY METHOD 09/15/2025 1:06 PM [facility] Calcium 8.9 8.5 - 10.5 mg/dL LAB CHEMISTRY METHOD 09/15/2025 1:06 PM [facility] AST (SGOT) 16 10 - 42 unit/L LAB CHEMISTRY METHOD 09/15/2025 1:06 PM [facility] ALT (SGPT) 16 10 - 60 unit/L LAB CHEMISTRY METHOD 09/15/2025 1:06 PM [facility] Alkaline Phosphatase 129(H) 42 - 121 unit/L LAB CHEMISTRY METHOD 09/15/2025 1:06 PM EDT [facility] Total Protein 5.9(L) 6.0 - 8.0 g/dL LAB CHEMISTRY METHOD 09/15/2025 1:06 PM EDT [facility] Albumin 2.4(L) 3.2 - 5.0 g/dL LAB CHEMISTRY METHOD 09/15/2025 1:06 PM EDT [facility] Total Bilirubin 0.7 0.0 - 1.4 mg/dL LAB CHEMISTRY METHOD 09/15/2025 1:06 PM EDT [facility] Blood Venous blood specimen / Unknown Venipuncture / Unknown 09/15/2025 6:28 AM EDT 09/15/2025 10:14 AM EDT us Mohit Willis MD LAB BLOOD ORDERABLES Final Resul t [facility] [address] [place] [address], documented in this encounter Visit Diagnoses Diagnosis Chronic obstructive pulmonary disease, unspecified (CMS/HCC V24, CMS/HCC V28) Heart failure, unspecified (CMS/HCC V24, CMS/HCC V28) Heart failure, unspecified documented in this encounter Care Teams Byproducts Pump Operator Relationship Specialty Start Date End Date Yong Dodson MD [address] [place] [address], [phone] PCP - General Family Medicine 07/25/25 documented as of this encounter
--- OUTSIDE RECORDS SUMMARY | 2025-09-24 15:53 | XMS_ITS | Encounter Summary ---
Author Organization [facility] Address [address] [place] [address] Care Team Providers Care Cold Working Inspector Name Role Phone Yong Dodson MD Primary Care Provider [phone] Encounter Details Date Type Department Care Team (Late st Contact Info) Description 07/26/2025 Lab Requisition [facility] - Main Lab [address] [place] [address] Yong Dodson MD 38 [facility] [address] [place], [address] Chronic obstructive pulmonary disease, unspecified (CMS/HCC [...] LAB CHEMISTRY METHOD 07/28/2025 12:29 PM EDT [facility] Potassium 4.4 3.5 - 5.5 mmol/L LAB CHEMISTRY METHOD 07/28/2025 12:29 PM [facility] Chloride 104 96 - 110 mmol/L LAB CHEMISTRY METHOD 07/28/2025 12:29 PM [facility] CO2 28 21 - 32 mmol/L LAB CHEMISTRY METHOD 07/28/2025 12:29 PM [facility] Anion Gap 8 3 - 11 LAB CHEMISTRY METHOD 07/28/2025 12:29 PM [facility] Glucose 177(H) 70 - 100 mg/dL LAB CHEMISTRY METHOD 07/28/2025 12:29 PM [facility] BUN 29(H) 5 - 25 mg/dL LAB CHEMISTRY METHOD 07/28/2025 12:29 PM [facility] Creatinine 1.09 0.50 - 1.10 mg/dL LAB CHEMISTRY METHOD 07/28/2025 12:29 PM [facility] eGFR 52(L) >=60 mL/min/1. 73m2 LAB CHEMISTRY METHOD 07/28/2025 12:29 PM [facility] Comment:Calculation based on the Chronic Kidney Disease Epidemiology Collaboration (CKD-EPI) equation refit without adjustment for race. BUN/Creatinine Ratio 26.6 LAB CHEMISTRY METHOD 07/28/2025 12:29 PM [facility] Calcium 9.0 8.5 - 10.5 mg/dL LAB CHEMISTRY METHOD 07/28/2025 12:29 PM [facility] Blood Venous blood specimen / Unknown Venipuncture / Unknown 07/28/2025 6:20 AM EDT 07/28/2025 10:56 AM EDT us Yong Dodson MD LAB BLOOD ORDERABLES Final Resul t [facility] [address] [place] [address], [place] [phone] * (ABNORMAL) Complete blood count (07/28/2025 6:20 AM EDT) [facility] WBC 8.7 4.8 - 10.8 K/mcL LAB HEMETOLOGY METHOD 07/28/2025 11:28 AM [facility] RBC 3.30(L) 3.80 - 4.80 M/mcL LAB HEMETOLOGY METHOD 07/28/2025 11:28 AM [facility] Hemoglobin 9.8(L) 11.5 - 16.0 g/dL LAB HEMETOLOGY METHOD 07/28/2025 11:28 AM [facility] Hematocrit 32.5(L) 35.0 - 47.0 % LAB HEMETOLOGY METHOD 07/28/2025 11:28 AM [facility] MCV 98.8(H) 79.0 - 98.0 FL LAB HEMETOLOGY METHOD 07/28/2025 11:28 AM [facility] MCH 29.8 27.0 - 32.0 pcg LAB HEMETOLOGY METHOD 07/28/2025 11:28 AM [facility] MCHC 30.2(L) 32.0 - 37.0 g/dL LAB HEMETOLOGY METHOD 07/28/2025 11:28 AM [facility] RDW 14.4 11.0 - 15.0 % LAB HEMETOLOGY METHOD 07/28/2025 11:28 AM [facility] Platelets 213 130 - 400 K/mcL LAB HEMETOLOGY METHOD 07/28/2025 11:28 AM [facility] MPV 11.8(H) 7.0 - 11.0 FL LAB HEMETOLOGY METHOD 07/28/2025 11:28 AM [facility] NRBC 0.0 <1.0 % LAB HEMETOLOGY METHOD 07/28/2025 11:[address] [facility] NRBC Absolute 0.00 <0.10 K/mcL LAB HEMETOLOGY METHOD 07/28/2025 11:[address] [facility] Blood Venous blood specimen / Unknown Venipuncture / Unknown 07/28/2025 6:20 AM EDT 07/28/2025 10:56 AM EDT us Yong Dosdon MD LAB BLOOD ORDERABLES Final Resul t [facility] [address] [place] [address], documented in this encounter Visit Diagnoses Diagnosis Chronic obstructive pulmonary disease, unspecified (CMS/HCC V24, CMS/HCC V28) documented in this encounter Care Teams Cold Working Inspector Relationship Specialty Start Date End Date Yong Dodson MD [address] [place] [address], [phone] PCP - General Family Medicine 07/25/25 documented as of this encounter
== END 2025-09-24 13:58 | disposition home or self-care (01) ==
PROVIDERS: PCP Nurse Practitioner Gerontology
DX: I25.10 Atherosclerotic heart disease of native coronary artery without angina pectoris (principal); R06.00 Dyspnea, unspecified; J44.9 Chronic obstructive pulmonary disease, unspecified; E78.5 Hyperlipidemia, unspecified; I10 Essential (primary) hypertension; Z09 Encounter for follow-up examination after completed treatment for conditions other than malignant neoplasm
CPT/HCPCS: 99215; G2211

== ENCOUNTER 2025-09-24 13:06 | Outpatient (REF) | payer MEDICARE, SELFPAY ==
[2025-09-24 14:55] LABS: Hematocrit 37.8 % (37.0-47.0); Hemoglobin 11.9 g/dl (12.0-16.0); Mean Corpuscular HGB Conc 31.5 g/dl (31.0-35.0); Mean Corpuscular Hemoglobin 29.5 pg (27.0-33.0); Mean Corpuscular Volume 93.6 fL (80.0-98.0); NRBC Abs Auto 0.000 X10*3/uL (0.0-0.012); NRBC Pct Auto 0.0 /100WBC (0.0-0.2); Platelet Count 315 X10*3/uL (160-400); Red Blood Count 4.04 X10*6/uL (4.20-5.50); White Blood Count 18.8 X10*3/uL (4.8-10.8)
[2025-09-24 15:49] LABS: Anion Gap 14 (12-20); Blood Urea Nitrogen 23 mg/dL (9-16); Calcium 9.4 mg/dL (8.4-10.2); Carbon Dioxide 26 mmol/L (22-29); Chloride 102 mmol/L (96-108); Estimated Glomerular Filt Rate 45; Potassium 4.0 mmol/L (3.3-5.1); Sodium 138 mmol/L (135-145)
== END 2025-09-24 13:07 | disposition home or self-care (01) ==
LOC: HO.LAB 13:06
PROVIDERS: PCP Nurse Practitioner Gerontology
DX: I25.10 Atherosclerotic heart disease of native coronary artery without angina pectoris (principal); J44.9 Chronic obstructive pulmonary disease, unspecified; E78.5 Hyperlipidemia, unspecified; I10 Essential (primary) hypertension; R06.00 Dyspnea, unspecified; Z09 Encounter for follow-up examination after completed treatment for conditions other than malignant neoplasm; Z87.891 Personal history of nicotine dependence; Z79.899 Other long term (current) drug therapy
CPT/HCPCS: 36415; 80048; 83880; 85027; 93005; 99212

== ENCOUNTER → 2025-09-26 11:12 | Outpatient (REF) | payer MEDICARE, SELFPAY ==
--- NOTE | 2025-09-26 11:14 | CA_ITS ---
Transthoracic Echocardiogram Patient (Last, First, Middle): Lilli Yepez A Gender: Female Date of : 1945 Age: 79 Procedure Date: 09/26/2025 Procedure Type: Transthoracic Echocardiogram Location: OP Height: 152. cm Weight: 79.38 kg BSA: 1.76 m2 Heart Rate: 64 bpm BP: 165 / 60 mmHg Sas Analyst: YUN Sutherland MD: Eugenio Lu NP Rehabilitation Counselor: Dioni Ngo MD Symptoms: R06.00 - Dyspnea, unspecified Study Quality: Adequate ECG Rhythm: Arrhythmia Conclusions: - 1. Low normal LV ejection fraction 50-55% with impaired relaxation filling pattern and elevated filling pressures 2. Mild early aortic stenosis 3. Mitral annular calcification 4. No gross pericardial effusion Findings Left Ventricle Normal left ventricular cavity size. There is normal left ventricular wall thickness. The left ventricular systolic function is low normal. The visually estimated ejection fraction is between 50-55%. Spectral Doppler is indicative of an impaired relaxation filling pattern. Elevated filling pressures. E/E prime ratio is >15, consistent with elevated filling pressures. Wall Motion Rest Echo Findings The basal inferior, basal inferoseptal, and basal inferolateral segments are hypokinetic. All other scored wall segments showed normal motion. Right Ventricle Normal right ventricular cavity size. There is normal right ventricular systolic function. Atria The left atrium is likely dilated. There is no evidence of interatrial shunt. The right atrium is normal in size. Aortic Valve There is mild calcification of the aortic valve. There is mild aortic valve stenosis. There is no aortic valve regurgitation. Mitral Valve There is mild anterior and moderate posterior mitral leaflet thickening. There is moderate mitral annular calcification. There is trace mitral valve regurgitation. There is no mitral valve stenosis. Pulmonic Valve The pulmonic valve is likely normal. Tricuspid Valve Likely normal tricuspid valve structure and function. Tricuspid regurgitation envelope is inadequate for calculation of right ventricular systolic pressure. Normal right atrial pressure. Great Vessels The pulmonary artery was not well visualized. There is no dilatation of the ascending aorta measuring 2.90 cm. Small plaque is seen in the sino tubular ridge. Venous The inferior vena cava is normal in size and collapses greater than 50% with inspiration. Pericardium/Pleural There is no evidence of pericardial effusion. Prior Study Comparison Changes noted compared to prior study dated: 05/01/2024. LV systolic function is marginally reduced. Mild aortic stenosis is noted Measurements 2D Linear Measurements IVSd: 1.08 0.6-0.9/0.6-1.0 cm LVIDd: 4.78 3.9-5.3/4.2-5.9 cm LVIDd Index: 2.72 2.4-3.2/2.2-3.1 cm/m2 LVIDs: 3.26 2.0-3.6 cm LVPWd: 1.12 0.7-1.1 cm LA Diam: 3.70 2.7-3.8/3.0-4.0 cm LAIDs Index: 2.10 1.5-2.3 cm/m2 LV Mass: 240.09 67-162/88-224 g LV Mass Index: 136.41 43-95/49-115 g/m2 LVOT Diam: 2.00 3.0+(-)1.3 cm 2D Systolic Function EF 4C: 49.80 >55% EF 2C: 56.50 >55% EF BiP: 53.70 >55% Mitral Valve MV VTI: 0.49 MV Pk Stuart: 1.51 MV Mn Stuart: 0.85 MV Pk Grad: 9.00 MV Mn Grad: 4.00 MV Pk E: 1.10 MV PK A: 1.27 MV Decel Time: 241.00 E/A: 0.90 E'Lateral: 3.90 E'Medial: 3.38 E/E' Med: 32.50 E/E' Lat: 28.20 PHT: 71.00 MVA PHT: 3.10 MVA Continuity: 1.24 Decel Yolo: 4.57 Aortic Valve AoV Pk Stuart: 1.27 AoV Mn Stuart: 0.99 AoV VTI: 0.35 AoV Pk Grad: 6.00 Aov Mn Grad: 4.00 ALEKSANDAR Cont.VTI: 1.73 LVOT LVOT Pk Stuart: 0.71 LVOT Mn Stuart: 0.54 LVOT VTI: 0.19 LVOT Pk Grad: 2.00 LVOT Mn Grad: 1.00 LVOT Diam: 2.00 LVOT Area: 3.14 Diastolic Function MV Pk E: 1.10 MV Pk A: 1.27 E/A: 0.90 E'Medial: 3.38 E/E' Med: 32.50 E' Laterial: 3.90 E/E' Lat: 28.20 Right Ventricle TAPSE (mm): 25.90 TVS' Stuart: 11.00 Tricuspid Valve RA Press: 3.00 Great Vessels Aorta Sinus of Valsalva: 3.00 2.0-3.5 cm Ao Asc: 2.90 2.1-3.4 cm Pulmonary Veins Pulm Vein S/D 1.50 Pulmonary Valve PV Pk Stuart: 0.94 Peak PV Grad: 4.00 Updated in Other Vendor System with Status of Final Dioni Ngo MD electronically signed on 09/26/2025 3:32:38 PM with status of Final
--- OUTSIDE RECORDS SUMMARY | 2025-09-26 13:31 | XMS_ITS | Encounter Summary ---
Author Organization [facility] Address [address] [place] [address] Care Team Providers Care Bibliographic Services Specialist Name Role Phone Yong Dodson MD Primary Care Provider [phone] Encounter Details Date Type Department Care Team (Late st Contact Info) Description 08/04/2025 Lab Requisition [facility] - Main Lab [address] [facility] [place] [address] Yong Dodson MD [address] [place] [address] [address] [place], [address] Chronic kidney disease, stage 3a (CMS/HCC [...] and culture (08/03/2025 3:00 PM EDT) Specific [place] Urine 1.020 1.003 - 1.030 LAB URINALYSIS - AUTOMATED METHOD 08/04/2025 11:52 AM [facility] pH, Urine 5.5 5.0 - 8.0 pH LAB URINALYSIS - AUTOMATED METHOD 08/04/2025 11:52 AM [facility] Leukocytes, Urine Negative Negative LAB URINALYSIS - AUTOMATED METHOD 08/04/2025 11:52 AM [facility] Nitrite, Urine Negative Negative LAB URINALYSIS - AUTOMATED METHOD 08/04/2025 11:52 AM [facility] Protein, Urine >=1000(A) <=Trace mg/dL LAB URINALYSIS - AUTOMATED METHOD 08/04/2025 11:52 AM [facility] Glucose, Urine 100(A) Negative mg/dL LAB URINALYSIS - AUTOMATED METHOD 08/04/2025 11:52 AM [facility] Ketones, Urine Negative Negative mg/dL LAB URINALYSIS - AUTOMATED METHOD 08/04/2025 11:52 AM [facility] Urobilinogen , Urine 0.2 0.2 - 1.0 mg/dL LAB URINALYSIS - AUTOMATED METHOD 08/04/2025 11:52 AM [facility] Bilirubin, Urine Negative Negative LAB URINALYSIS - AUTOMATED METHOD 08/04/2025 11:52 AM [facility] Blood, Urine Negative Negative LAB URINALYSIS - AUTOMATED METHOD 08/04/2025 11:52 AM [facility] RBC, Urine 1.8 0 - 4 /HPF LAB URINALYSIS - AUTOMATED METHOD 08/04/2025 11:52 AM [facility] WBC, Urine 1.4 0 - 4 /HPF LAB URINALYSIS - AUTOMATED METHOD 08/04/2025 11:52 AM EDT [facility] Squamous Epithelial, Urine 30 0 - 60 /LPF LAB URINALYSIS - AUTOMATED METHOD 08/04/2025 11:52 AM EDT [facility] Bacteria, Urine Negative Negative /HPF LAB URINALYSIS - AUTOMATED METHOD 08/04/2025 11:52 AM EDT [facility] Hyaline Casts, Urine 1.6 0 - 3 /LPF LAB URINALYSIS - AUTOMATED METHOD 08/04/2025 11:52 AM EDT [facility] Urine Urinary bladder structure / Unknown 08/03/2025 3:00 PM EDT 08/04/2025 11:39 AM EDT us Yong Dodson MD LAB URINE ORDERABLES Final Resul t Performing Organization Address City/[facility]/ZIP Co de Phone Number [facility] [address] [place] [address], [place] [phone] * Mazariegos urine culture tube (08/03/2025 3:00 PM EDT) Extra Tube Hold for add-ons. 08/04/2025 1:01 PM EDT [facility] Comment:Auto resulted. Urine Urinary bladder structure / Unknown 08/03/2025 3:00 PM EDT 08/04/2025 11:39 AM EDT us Yong Dodson MD LAB URINE ORDERABLES Final Resul t Performing Organization Address City/[facility]/ZIP Co de Phone Number [facility] [address] [place] [address], [place] [phone] documented in this encounter Visit Diagnoses Diagnosis Chronic kidney disease, stage 3a (CMS/HCC V24, CMS/HCC V28) Altered mental status, unspecified documented in this encounter Care Teams Bibliographic Services Specialist Relationship Specialty Start Date End Date Yong Dodson MD [address] [facility] [address] [place], [phone] PCP - General Family Medicine 07/25/25 documented as of this encounter
--- OUTSIDE RECORDS SUMMARY | 2025-09-26 13:31 | XMS_ITS | Patient Health Record ---
Author Organization [facility] Address [address] [place] [address] Care Team Providers Care Ruby On Rails Consultant Name Role Phone Nahid Waterman MD Primary Care Provider Deni Chacon Unavailable [phone] Allergies Allergen (clinical drug ingredient) Drug/Non Drug [...] Test Name Order Date Glucose Fasting 08/17/2015 [id number] NAIL, 6 OR MORE 11/09/2015 05423-GSTHCBR NAIL, 6 OR MORE 08/17/2015 87173-ECTJYTK NAIL, 6 OR MORE 02/11/2016 58921-RRCGUXM NAIL, 6 OR MORE 09/21/2017 07114-YBMGVDC NAIL, 6 OR MORE 03/21/2018 73106-KPYITQP NAIL, 6 OR MORE 10/03/2018 98474-RMIBLVQ NAIL, 6 OR MORE 06/22/2017 63382-RISVUSS NAIL, 6 OR MORE 03/16/2017 39201-GTKKHYR NAIL, 6 OR MORE 12/19/2016 23197-JKYXDMT NAIL, 6 OR MORE 12/21/2017 93509-Exickaxb Plate 08/17/2015 80727-JJSP SKIN LESIONS, OVER 4 03/21/20 18 08251-BWPF SKIN LESIONS, OVER 4 10/03/20 18 10132-FSTQ SKIN LESIONS, OVER 4 06/22/20 17 14635-DVDE SKIN LESIONS, OVER 4 12/19/19 17 74130-GTLQ SKIN LESIONS, OVER 4 03/16/20 17 30873-OAGL SKIN LESIONS, 2 TO 4 12/21/19 18 41293-EXMI SKIN LESIONS, 2 TO 4 08/19/20 19 91476-GZOL SKIN LESIONS, 2 TO 4 01/20/20 20 03177-LJXG SKIN LESIONS, 2 TO 4 05/11/20 20 72548-CJGB SKIN LESIONS, 2 TO 4 08/24/20 20 76459-QFXB SKIN LESIONS, 2 TO 4 02/11/20 16 35825-BHOO SKIN LESIONS, 2 TO 4 09/21/20 17 08641-YLVV SKIN LESIONS, 2 TO 4 08/17/20 15 91790-RDIT SKIN LESIONS, 2 TO 4 11/09/20 15 90255-LAQDKBNV OF HEMATOMA/FLUID 019 Insurance Providers Payer Name Payer Address Payer Phone Subscriber Number Group Number Insured Name Patient Relationship to Insured Coverage Start Date Coverage End Date Medicare National [employer] [address] [place] [address] [id number] Lilli Yepez Self - patient is the insured 3 Medical (General) History Medical History History ICD Code Anemia Arthritis Cholesterol Diabetic Diverticulosis Headaches Migraines High blood pressure Lung disease Macular degeneration Stroke Measles Chicken pox Surgical History Surgery Date(Month/Year) hysterectomy 30 years ago cyst removal 30 years ago section 1974 Hospitalization History Reason Date(Month/Year) [facility]- stent put in on right side 12/09 [facility]-Broken arm- [facility]- 3 months 05/05/2019 [facility] - Heart attack - 2 stents put in on left side 11/07
--- OUTSIDE RECORDS SUMMARY | 2025-09-26 13:31 | XMS_ITS | Encounter Summary ---
Author Organization [facility] Address [address] [place] [address] Care Team Providers Care Parcel Post Carrier Name Role Phone Yong Dodson MD Primary Care Provider [phone] Encounter Details Date Type Department Care Team (Late st Contact Info) Description 08/18/2025 Lab Requisition [facility] - Main Lab [address] [place] [address] Yong Dodson MD [address] [facility] [address] [place], [address] Unspecified infectious disease Social History Tobacco [...] LAB HEMETOLOGY METHOD 08/18/2025 12:11 PM EDT [facility] RBC 3.60(L) 3.80 - 4.80 M/mcL LAB HEMETOLOGY METHOD 08/18/2025 12:11 PM EDT [facility] Hemoglobin 10.6(L) 11.5 - 16.0 g/dL LAB HEMETOLOGY METHOD 08/18/2025 12:11 PM EDT [facility] Hematocrit 34.6(L) 35.0 - 47.0 % LAB HEMETOLOGY METHOD 08/18/2025 12:11 PM EDT [facility] MCV 96.1 79.0 - 98.0 FL LAB HEMETOLOGY METHOD 08/18/2025 12:11 PM EDT [facility] MCH 29.4 27.0 - 32.0 pcg LAB HEMETOLOGY METHOD 08/18/2025 12:11 PM EDT [facility] MCHC 30.6(L) 32.0 - 37.0 g/dL LAB HEMETOLOGY METHOD 08/18/2025 12:11 PM EDT [facility] RDW 14.2 11.0 - 15.0 % LAB HEMETOLOGY METHOD 08/18/2025 12:11 PM EDT [facility] Platelets 224 130 - 400 K/mcL LAB HEMETOLOGY METHOD 08/18/2025 12:11 PM EDT [facility] MPV 11.4(H) 7.0 - 11.0 FL LAB HEMETOLOGY METHOD 08/18/2025 12:11 PM EDT [facility] NRBC 0.0 <1.0 % LAB HEMETOLOGY METHOD 08/18/2025 12:11 PM EDT [facility] NRBC Absolute 0.00 <0.10 K/mcL LAB HEMETOLOGY METHOD 08/18/2025 12:11 PM EDT [facility] Blood Venous blood specimen / Unknown Venipuncture / Unknown 08/18/2025 6:33 AM EDT 08/18/2025 11:01 AM EDT us Yong Dodson MD LAB BLOOD ORDERABLES Final Resul t [facility] [address] [place], [place] [address] [phone] documented in this encounter Visit Diagnoses Diagnosis Unspecified infectious disease documented in this encounter Care Teams Parcel Post Carrier Relationship Specialty Start Date End Date Yong Dodson MD [address] [place] [address], [phone] PCP - General Family Medicine 07/25/25 documented as of this encounter
--- OUTSIDE RECORDS SUMMARY | 2025-09-26 13:31 | XMS_ITS | Clinical Summary ---
Author Organization [facility] Address [address] [place] [phone] Phone Care Team Providers Care Rotor Assembler Name Role Phone Pcp, Unknown Primary Care Provider Migdalia Wing MD Unavailable [phone] Social History Tobacco Use Types Packs/Day [...] & B MEDICARE PART A & [facility] MEDICARE PART A & B MEDICARE PART A & B MEDICARE PART A & B MEDICARE PART A & B MEDICARE PART A & B MEDICARE PART A & B Care Teams Rotor Assembler Relationship Specialty Start Date End Date Pcp, Unknown PCP - General 05/24/24 Migdalia Barahona MD [address] [place] [phone] [email or web address] Internal Medicine 05/24/24 Additional Source Comments The information contained in this document represents components of the legal health record. It is not the complete legal health record.[facility]
--- OUTSIDE RECORDS SUMMARY | 2025-09-26 13:31 | XMS_ITS | Encounter Summary ---
Author Organization [facility] Address [address] [place] [phone] Care Team Providers Care Laborer Plumbing Name Role Phone Yong Dodson MD Primary Care Provider [phone] Encounter Details Date Type Department Care Team (Late st Contact Info) Description 08/08/2025 Lab Requisition [facility] - Main Lab [address] [facility] [place] [address] Yong Dodson MD [address] [place] [address] [address] [place], [phone] Chronic obstructive pulmonary disease, unspecified (CMS/HCC [...] V28) documented in this encounter Care Teams Laborer Plumbing Relationship Specialty Start Date End Date Yong Dodson MD [address] [place] [address] [address] [place], [phone] PCP - General Family Medicine 07/25/25 documented as of this encounter
--- OUTSIDE RECORDS SUMMARY | 2025-09-26 13:31 | XMS_ITS | Clinical Summary ---
Author Organization [address] Address [address] [place] [phone] Phone Care Team Providers Care Oven Builder Name Role Phone Yong Dodson MD Primary Care Provider [phone] Encounters Date Type Department Care Team Description 09/24/2025 Lab Requisition [facility] [address] [place] [phone] Mohit Willis MD Heart failure, unspecified ([facility] V24, CMS/[facility] V28); Acute and chronic respiratory failure with hypoxia (CMS/[facility] V24, CMS/[facility] V28); Acute kidney failure, unspecified ([facility]/HCC V24); Hypertensive heart and chronic kidney disease with heart failure and stage 1 through stage 4 chronic kidney disease, or unspecified chronic kidney disease (CMS/HCC V24, CMS/HCC V28); Stricture of artery ([facility] V24); Shortness of breath 09/16/2025 Lab Requisition [facility] Lab [address] [place] [phone] Mohit Willis MD Altered mental status, unspecified 09/15/2025 Lab Requisition [facility] Lab [address] [place] [phone] Mohit Willis MD Chronic obstructive pulmonary disease, unspecified (CMS/[facility] V24, CMS/HCC V28); Heart failure, unspecified (CMS/[facility] V24, CMS/[facility] V28) 08/18/2025 Lab Requisition [facility] Lab [address] [place] [phone] Yong Dodson MD Unspecified infectious disease 08/08/2025 Lab Requisition [facility] Lab [address] [place] [phone] Yong Dodson MD Chronic obstructive pulmonary disease, unspecified ([facility]24, [facility] V28) 08/04/2025 Lab Requisition [facility] Lab [address] [place] [phone] Yong Dodson MD Chronic kidney disease, stage 3a ([facility] V24, [facility] V28); Altered mental status, unspecified 08/03/2025 Lab Requisition [facility] [address] [place] [phone] Yong Dodson MD Chronic obstructive pulmonary disease, unspecified ([facility] V24, [facility] V28) 08/02/2025 Lab Requisition [facility] Lab [address] [place] [phone] Yong Dodson MD Chronic kidney disease, stage 3a ([facility] V24, [facility] V28) 07/26/2025 Lab Requisition [facility] [address] [place] [phone] Yong Dodson MD Chronic obstructive pulmonary disease, unspecified ([facility] V24, [facility] V28) 07/25/2025 Lab Requisition [facility] [address] [place] [phone] Yong Dodson MD Chronic obstructive pulmonary disease, unspecified ([facility]24, [facility] V28) from Last 3 Months Social History [...] AM EDT Chronic obstructive pulmonary disease, unspecified ([facility] V24, [facility] V28) from Last 3 Months Results * Lavender tube (09/24/2025 7:18 AM EST) Only the most recent of2 resultswithin the time period is included. Pathologist [facility] Extra Tube Hold for add-ons. 09/24/2025 1:01 PM EST [facility] Comment:Auto resulted. Blood Venous blood specimen / Unknown Venipuncture / Unknown 09/24/2025 7:18 AM EST 09/24/2025 11:36 AM EST Mohit Willis MD LAB BLOOD ORDERABLES Final Resul t [facility] [address] [place] [address], * (ABNORMAL) Complete blood count (09/24/2025 7:18 AM EST) Only the most recent of6 resultswithin the time period is included. [facility] WBC 16.7(H) 4.8 - 10.8 K/mcL LAB HEMETOLOGY METHOD 09/24/2025 12:14 PM [facility] RBC 3.80 3.80 - 4.80 M/[facility] LAB HEMETOLOGY METHOD 09/24/2025 12:14 PM [facility] Hemoglobin 11.1(L) 11.5 - 16.0 g/dL LAB HEMETOLOGY METHOD 09/24/2025 12:14 PM [facility] Hematocrit 36.0 35.0 - 47.0 % LAB HEMETOLOGY METHOD 09/24/2025 12:14 PM [facility] MCV 94.7 79.0 - 98.0 FL LAB HEMETOLOGY METHOD 09/24/2025 12:14 PM [facility] MCH 29.2 27.0 - 32.0 pcg LAB HEMETOLOGY METHOD 09/24/2025 12:14 PM EST [facility] MCHC 30.8(L) 32.0 - 37.0 g/dL LAB HEMETOLOGY METHOD 09/24/2025 12:14 PM [facility] RDW 15.4(H) 11.0 - 15.0 % LAB HEMETOLOGY METHOD 09/24/2025 12:14 PM EST [facility] Platelets 272 130 - 400 K/mcL LAB HEMETOLOGY METHOD 09/24/2025 12:14 PM [facility] MPV 10.5 7.0 - 11.0 FL LAB HEMETOLOGY METHOD 09/24/2025 12:14 PM [facility] NRBC 0.0 <1.0 % LAB HEMETOLOGY METHOD 09/24/2025 12:14 PM [facility] NRBC Absolute 0.00 <0.10 K/mcL LAB HEMETOLOGY METHOD 09/24/2025 12:14 PM [facility] Blood Venous blood specimen / Unknown Venipuncture / Unknown 09/24/2025 7:18 AM EST 09/24/2025 10:26 AM EST us Mohit Willis MD LAB BLOOD ORDERABLES Final Resul t [facility] [address] [place] [address], * (ABNORMAL) Comprehensive metabolic panel (09/24/2025 7:18 AM EST) Only the most recent of4 resultswithin the time period is included. Sodium 137 133 - 145 mmol/L LAB CHEMISTRY METHOD 09/24/2025 12:13 PM EST [facility] Potassium 4.3 3.5 - 5.5 mmol/L LAB CHEMISTRY METHOD 09/24/2025 12:13 PM [facility] Chloride 102 96 - 110 mmol/L LAB CHEMISTRY METHOD 09/24/2025 12:13 PM [facility] CO2 28 21 - 32 mmol/L LAB CHEMISTRY METHOD 09/24/2025 12:13 PM [facility] Anion Gap 7 3 - 11 LAB CHEMISTRY METHOD 09/24/2025 12:13 PM [facility] Glucose 199(H) 70 - 100 mg/dL LAB CHEMISTRY METHOD 09/24/2025 12:13 PM [facility] BUN 22 5 - 25 mg/dL LAB CHEMISTRY METHOD 09/24/2025 12:13 PM [facility] Creatinine 1.11(H) 0.50 - 1.10 mg/dL LAB CHEMISTRY METHOD 09/24/2025 12:13 PM [facility] eGFR 51(L) >=60 mL/min/1. 73m2 LAB CHEMISTRY METHOD 09/24/2025 12:13 PM [facility] Comment:Calculation based on the Chronic Kidney Disease Epidemiology Collaboration (CKD-EPI) equation refit without adjustment for race. BUN/Creatinine Ratio 19.8 LAB CHEMISTRY METHOD 09/24/2025 12:13 PM [facility] Calcium 9.0 8.5 - 10.5 mg/dL LAB CHEMISTRY METHOD 09/24/2025 12:13 PM [facility] AST (SGOT) 8(L) 10 - 42 unit/L LAB CHEMISTRY METHOD 09/24/2025 12:13 PM [facility] ALT (SGPT) 18 10 - 60 unit/L LAB CHEMISTRY METHOD 09/24/2025 12:13 PM [facility] Alkaline Phosphatase 116 42 - 121 unit/L LAB CHEMISTRY METHOD 09/24/2025 12:13 PM [facility] Total Protein 6.1 6.0 - 8.0 g/dL LAB CHEMISTRY METHOD 09/24/2025 12:13 PM EST [facility] Albumin 2.6(L) 3.2 - 5.0 g/dL LAB CHEMISTRY METHOD 09/24/2025 12:13 PM EST [facility] Total Bilirubin 0.7 0.0 - 1.4 mg/dL LAB CHEMISTRY METHOD 09/24/2025 12:13 PM EST [facility] Blood Venous blood specimen / Unknown Venipuncture / Unknown 09/24/2025 7:18 AM EST 09/24/2025 10:26 AM EST us Mohit Willis MD LAB BLOOD ORDERABLES Final Resul t [facility] [address] [place] [address], [place] [phone] * (ABNORMAL) CBC auto differential (09/15/2025 6:28 AM EDT) WBC 19.4(H) 4.8 - 10.8 K/mcL LAB HEMETOLOGY METHOD 09/15/2025 11:13 AM EDT [facility] RBC 3.10(L) 3.80 - 4.80 M/mcL LAB HEMETOLOGY METHOD 09/15/2025 11:13 AM [facility] Hemoglobin 9.4(L) 11.5 - 16.0 g/dL LAB HEMETOLOGY METHOD 09/15/2025 11:13 AM EDT [facility] Hematocrit 30.5(L) 35.0 - 47.0 % LAB HEMETOLOGY METHOD 09/15/2025 11:13 AM EDT [facility] MCV 97.1 79.0 - 98.0 FL LAB HEMETOLOGY METHOD 09/15/2025 11:13 AM [facility] MCH 29.9 27.0 - 32.0 pcg LAB HEMETOLOGY METHOD 09/[facility] MCHC 30.8(L) 32.0 - 37.0 g/dL LAB HEMETOLOGY METHOD 09/15/2025 11:13 AM [facility] RDW 15.8(H) 11.0 - 15.0 % LAB HEMETOLOGY METHOD 09/15/2025 11:13 AM [facility] Platelets 215 130 - 400 K/mcL LAB HEMETOLOGY METHOD 09/15/2025 11:13 AM [facility] MPV 11.4(H) 7.0 - 11.0 FL LAB HEMETOLOGY METHOD 09/15/2025 11:13 AM [facility] NRBC 0.0 <1.0 % LAB HEMETOLOGY METHOD 09/15/2025 11:13 AM [facility] NRBC Absolute 0.00 <0.10 K/mcL LAB HEMETOLOGY METHOD 09/15/2025 11:13 AM [facility] Neutrophils Relative 86.5 % LAB HEMETOLOGY METHOD 09/15/2025 11:13 AM [facility] Lymphocytes Relative 6.8 % LAB HEMETOLOGY METHOD 09/15/2025 11:13 AM [facility] Monocytes Relative 4.9 % LAB HEMETOLOGY METHOD 09/15/2025 11:13 AM [facility] Eosinophils Relative 0.6 % LAB HEMETOLOGY METHOD 09/15/2025 11:13 AM [facility] Basophils Relative 0.3 % LAB HEMETOLOGY METHOD 09/15/2025 11:13 AM [facility] Immature Granulocytes Relative 0.9 % LAB HEMETOLOGY METHOD 09/15/2025 11:13 AM [facility] Neutrophils Absolute 16.77(H) 1.50 - 7.00 K/mcL LAB HEMETOLOGY METHOD 09/15/2025 11:13 AM EDT [facility] Lymphocytes Absolute 1.32 1.00 - 5.00 K/mcL LAB HEMETOLOGY METHOD 09/15/2025 11:13 AM EDT [facility] Monocytes Absolute 0.95 0.20 - 1.00 K/mcL LAB HEMETOLOGY METHOD 09/15/2025 11:13 AM EDT [facility] Eosinophils Absolute 0.11 0.00 - 0.50 K/[facility] LAB HEMETOLOGY METHOD 09/15/2025 11:13 AM EDT [facility] Basophils Absolute 0.06 0.00 - 0.20 K/[facility] LAB HEMETOLOGY METHOD 09/15/2025 11:13 AM EDT [facility] Immature Granulocytes Absolute 0.17(H) 0.00 - 0.03 K/[facility] LAB HEMETOLOGY METHOD 09/15/2025 11:13 AM T [facility] Blood Venous blood specimen / Unknown Venipuncture / Unknown 09/15/2025 6:28 AM EDT 09/15/2025 10:14 AM EDT us Mohit Willis MD LAB BLOOD ORDERABLES Final Resul t [facility] [address] [place] [address], * (ABNORMAL) Urinalysis with reflex microscopic and culture (09/15/2025 12:00 AM EDT) Only the most recent of2 resultswithin the time period is included. Specific [place] Urine 1.019 1.003 - 1.030 LAB URINALYSIS - AUTOMATED METHOD 09/16/2025 11:20 AM T [facility] pH, Urine 5.5 5.0 - 8.0 pH LAB URINALYSIS - AUTOMATED METHOD 09/16/2025 11:20 AM EDT [facility] Leukocytes, Urine Large(A) Negative LAB URINALYSIS - AUTOMATED METHOD 09/16/2025 11:20 AM [facility] Nitrite, Urine Negative Negative LAB URINALYSIS - AUTOMATED METHOD 09/16/2025 11:20 AM [facility] Protein, Urine 300(A) <=Trace mg/dL LAB URINALYSIS - AUTOMATED METHOD 09/16/2025 11:20 AM [facility] Glucose, Urine Negative Negative mg/dL LAB URINALYSIS - AUTOMATED METHOD 09/16/2025 11:20 AM [facility] Ketones, Urine Trace(A) Negative mg/dL LAB URINALYSIS - AUTOMATED METHOD 09/16/2025 11:20 AM [facility] Urobilinogen , Urine 1.0 0.2 - 1.0 mg/dL LAB URINALYSIS - AUTOMATED METHOD 09/16/2025 11:20 AM [facility] Bilirubin, Urine Negative Negative LAB URINALYSIS - AUTOMATED METHOD 09/16/2025 11:20 AM [facility] Blood, Urine Trace(A) Negative LAB URINALYSIS - AUTOMATED METHOD 09/16/2025 11:20 AM [facility] RBC, Urine 9.9(H) 0 - 4 /HPF LAB URINALYSIS - AUTOMATED METHOD 09/16/2025 11:20 AM [facility] WBC, Urine 1,366.1(H) 0 - 4 /HPF LAB URINALYSIS - AUTOMATED METHOD 09/16/2025 11:20 AM [facility] Squamous Epithelial, Urine 13 0 - 60 /LPF LAB URINALYSIS - AUTOMATED METHOD 09/16/2025 11:20 AM [facility] Bacteria, Urine Many(A) Negative /HPF LAB URINALYSIS - AUTOMATED METHOD 09/16/2025 11:20 AM [facility] Hyaline Casts, Urine 1.4 0 - 3 /LPF LAB URINALYSIS - AUTOMATED METHOD 09/16/2025 11:20 AM EDT [facility] Urine Urine specimen from urethra / Unknown 09/15/2025 09/16/2025 10:18 AM EDT us Mohit Willis MD LAB URINE ORDERABLES Final Resul t Performing Organization Address [facility] de Phone Number [facility] [address] [place] [address], [place] [phone] * Mazariegos urine culture tube (09/15/2025 12:00 AM EDT) Only the most recent of2 resultswithin the time period is included. Extra Tube Hold for add-ons. 09/16/2025 12:01 PM EDT [facility] Comment:Auto resulted. Urine Urine specimen from urethra / Unknown 09/15/2025 09/16/2025 10:18 AM EDT us Mohit Willis MD LAB URINE ORDERABLES Final Resul t Performing Organization Address [facility] de Phone Number [facility] [address] [place] [address], [place] [phone] * (ABNORMAL) Culture urine (09/15/2025 12:00 AM EDT) Culture, Urine 10,000-49,000 CFU/mL Enterococcus faecalis(A) NATHALIE 09/19/2025 8:38 AM EDT [facility] Comment: The organism value for this result has been updated. These results have been appended to the previously preliminary verified report. This is an edited result. Previous organism was Enterococcus species on 09/18/2025 at 1314 EDT. Culture, Urine >=100,000 CFU/mL Lactobacillus species(A) NATHALIE 09/19/2025 8:38 AM EDT [facility] Comment: The organism value for [...] MICROBIOLOGY - GENERAL ORDER ALLISON Final Result [facility] [address] [place] [address], [place] [phone] * (ABNORMAL) Basic metabolic panel (08/04/2025 6:15 AM EDT) Only the most recent of2 resultswithin the time period is included. Sodium 138 133 - 145 mmol/L LAB CHEMISTRY METHOD 08/04/2025 12:39 PM [facility] Potassium 4.2 3.5 - 5.5 mmol/L LAB CHEMISTRY METHOD 08/04/2025 12:39 PM [facility] Chloride 103 96 - 110 mmol/L LAB CHEMISTRY METHOD 08/04/2025 12:39 PM [facility] CO2 25 21 - 32 mmol/L LAB CHEMISTRY METHOD 08/04/2025 12:39 PM [facility] Anion Gap 10 3 - 11 LAB CHEMISTRY METHOD 08/04/2025 12:39 PM [facility] Glucose 181(H) 70 - 100 mg/dL LAB CHEMISTRY METHOD 08/04/2025 12:39 PM [facility] BUN 22 5 - 25 mg/dL LAB CHEMISTRY METHOD 08/04/2025 12:39 PM EDT [facility] Creatinine 0.89 0.50 - 1.10 mg/dL LAB CHEMISTRY METHOD 08/04/2025 12:39 PM EDT [facility] eGFR 66 >=60 mL/min/1. 73m2 LAB CHEMISTRY METHOD 08/04/2025 12:39 PM EDT [facility] Comment:Calculation based on the Chronic Kidney Disease Epidemiology Collaboration (CKD-EPI) equation refit without adjustment for race. BUN/Creatinine Ratio 24.7 LAB CHEMISTRY METHOD 08/04/2025 12:39 PM EDT [facility] Calcium 9.5 8.5 - 10.5 mg/dL LAB CHEMISTRY METHOD 08/04/2025 12:39 PM EDT [facility] Blood Venous blood specimen / Unknown Venipuncture / Unknown 08/04/2025 6:15 AM EDT 08/04/2025 10:56 AM EDT us Yong Dodson MD LAB BLOOD ORDERABLES Final Resul t [facility] [address] [place] [address], [place] [phone] * Lipase (08/02/2025 12:29 PM EDT) Lipase 54 13 - 75 unit/L LAB CHEMISTRY METHOD 08/02/2025 1:34 PM EDT [facility] Blood Venous blood specimen / Unknown Venipuncture / Unknown 08/02/2025 12:29 PM EDT 08/02/2025 12:53 PM EDT us Yong Dodson MD LAB BLOOD ORDERABLES Final Resul t [facility] [address] [place] [address], [place] [phone] * Amylase (08/02/2025 12:29 PM EDT) Amylase 45 25 - 115 unit/L LAB CHEMISTRY METHOD 08/02/2025 1:34 PM EDT [facility] Blood Venous blood specimen / Unknown Venipuncture / Unknown 08/02/2025 12:29 PM EDT 08/02/2025 12:53 PM EDT us Yong Dodson MD LAB BLOOD ORDERABLES Final Resul t [facility] ([facility]) [facility] [address] [place] [address], [place] [phone] from Last 3 Months Insurance MEDICAID - [place] [facility] MEDICARE [employer] Care Teams Oven Builder Relationship Specialty Start Date End Date Yong Dodson MD [address] [place] [phone] PCP - General Family Medicine 07/25/25
--- OUTSIDE RECORDS SUMMARY | 2025-09-26 13:31 | XMS_ITS | Encounter Summary ---
Author Organization [facility] Address [address] [place] [phone] Care Team Providers Care Paver Layer Name Role Phone Yong Dodson MD Primary Care Provider [phone] Encounter Details Date Type Department Care Team (Late st Contact Info) Description 09/15/2025 Lab Requisition [facility] Lab [address] [facility] [place] [phone] Mohit Willis MD [address] [place], [place] [id number] Chronic obstructive pulmonary disease, unspecified (CMS/HCC V24, [...] Hold for add-ons. 09/15/2025 12:01 PM EDT [facility] Comment:Auto resulted. Blood Venous blood specimen / Unknown Venipuncture / Unknown 09/15/2025 6:28 AM EDT 09/15/2025 10:15 AM EDT us Mohit Willis MD LAB BLOOD ORDERABLES Final Resul t [facility] [address] [place] [address], * (ABNORMAL) CBC auto differential (09/15/2025 6:28 AM EDT) [facility] WBC 19.4(H) 4.8 - 10.8 K/mcL LAB HEMETOLOGY METHOD 09/15/2025 11:13 AM EDT [facility] RBC 3.10(L) 3.80 - 4.80 M/mcL LAB HEMETOLOGY METHOD 09/15/2025 11:13 AM EDT [facility] Hemoglobin 9.4(L) 11.5 - 16.0 g/dL LAB HEMETOLOGY METHOD 09/15/2025 11:13 AM EDT [facility] Hematocrit 30.5(L) 35.0 - 47.0 % LAB HEMETOLOGY METHOD 09/15/2025 11:13 AM [facility] MCV 97.1 79.0 - 98.0 FL LAB HEMETOLOGY METHOD 09/15/2025 11:13 AM [facility] MCH 29.9 27.0 - 32.0 pcg LAB HEMETOLOGY METHOD 09/15/2025 11:13 AM [facility] MCHC 30.8(L) 32.0 - 37.0 g/dL LAB HEMETOLOGY METHOD 09/15/2025 11:13 AM [facility] RDW 15.8(H) 11.0 - 15.0 % LAB HEMETOLOGY METHOD 09/15/2025 11:13 AM [facility] Platelets 215 130 - 400 K/mcL LAB HEMETOLOGY METHOD 09/15/2025 11:13 AM [facility] MPV 11.4(H) 7.0 - 11.0 FL LAB HEMETOLOGY METHOD 09/15/2025 11:13 AM [facility] NRBC 0.0 <1.0 % LAB HEMETOLOGY METHOD 09/15/2025 11:13 AM [facility] NRBC Absolute 0.00 <0.10 K/mcL LAB HEMETOLOGY METHOD 09/15/2025 11:13 AM [facility] Neutrophils Relative 86.5 % LAB HEMETOLOGY METHOD 09/15/2025 11:13 AM [facility] Lymphocytes Relative 6.8 % LAB HEMETOLOGY METHOD 09/15/2025 11:13 AM [facility] Monocytes Relative 4.9 % LAB HEMETOLOGY METHOD 09/15/2025 11:13 AM [facility] Eosinophils Relative 0.6 % LAB HEMETOLOGY METHOD 09/15/2025 11:13 AM [facility] Basophils Relative 0.3 % LAB HEMETOLOGY METHOD 09/15/2025 11:13 AM EDT [facility] Immature Granulocytes Relative 0.9 % LAB HEMETOLOGY METHOD 09/15/2025 11:13 AM EDT [facility] Neutrophils Absolute 16.77(H) 1.50 - 7.00 K/mcL LAB HEMETOLOGY METHOD 09/15/2025 11:13 AM EDT [facility] Lymphocytes Absolute 1.32 1.00 - 5.00 K/mcL LAB HEMETOLOGY METHOD 09/15/2025 11:13 AM EDT [facility] Monocytes Absolute 0.95 0.20 - 1.00 K/mcL LAB HEMETOLOGY METHOD 09/15/2025 11:13 AM EDT [facility] Eosinophils Absolute 0.11 0.00 - 0.50 K/mcL LAB HEMETOLOGY METHOD 09/15/2025 11:13 AM EDT [facility] Basophils Absolute 0.06 0.00 - 0.20 K/mcL LAB HEMETOLOGY METHOD 09/15/2025 11:13 AM EDT [facility] Immature Granulocytes Absolute 0.17(H) 0.00 - 0.03 K/mcL LAB HEMETOLOGY METHOD 09/15/2025 11:13 AM [facility] Blood Venous blood specimen / Unknown Venipuncture / Unknown 09/15/2025 6:28 AM EDT 09/15/2025 10:14 AM EDT us Mohit Willis MD LAB BLOOD ORDERABLES Final Resul t [facility] [address] [place] [address], * (ABNORMAL) Comprehensive metabolic panel (09/15/2025 6:28 AM EDT) [facility] Sodium 134 133 - 145 mmol/L LAB CHEMISTRY METHOD 09/15/2025 1:06 PM [facility] Potassium 4.7 3.5 - 5.5 mmol/L LAB CHEMISTRY METHOD 09/15/2025 1:06 PM [facility] Chloride 99 96 - 110 mmol/L LAB CHEMISTRY METHOD 09/15/2025 1:06 PM [facility] CO2 23 21 - 32 mmol/L LAB CHEMISTRY METHOD 09/15/2025 1:06 PM [facility] Anion Gap 12(H) 3 - 11 LAB CHEMISTRY METHOD 09/15/2025 1:06 PM [facility] Glucose 159(H) 70 - 100 mg/dL LAB CHEMISTRY METHOD 09/15/2025 1:06 PM [facility] BUN 39(H) 5 - 25 mg/dL LAB CHEMISTRY METHOD 09/15/2025 1:06 PM [facility] Creatinine 2.00(H) 0.50 - 1.10 mg/dL LAB CHEMISTRY METHOD 09/15/2025 1:06 PM [facility] eGFR 25(L) >=60 mL/min/1. 73m2 LAB CHEMISTRY METHOD 09/15/2025 1:06 PM [facility] Comment:Calculation based on the Chronic Kidney Disease Epidemiology Collaboration (CKD-EPI) equation refit without adjustment for race. BUN/Creatinine Ratio 19.5 LAB CHEMISTRY METHOD 09/15/2025 1:06 PM [facility] Calcium 8.9 8.5 - 10.5 mg/dL LAB CHEMISTRY METHOD 09/15/2025 1:06 PM [facility] AST (SGOT) 16 10 - 42 unit/L LAB CHEMISTRY METHOD 09/15/2025 1:06 PM [facility] ALT (SGPT) 16 10 - 60 unit/L LAB CHEMISTRY METHOD 09/15/2025 1:06 PM [facility] Alkaline Phosphatase 129(H) 42 - 121 unit/L LAB CHEMISTRY METHOD 09/15/2025 1:06 PM EDT [facility] Total Protein 5.9(L) 6.0 - 8.0 g/dL LAB CHEMISTRY METHOD 09/15/2025 1:06 PM EDT [facility] Albumin 2.4(L) 3.2 - 5.0 g/dL LAB CHEMISTRY METHOD 09/15/2025 1:06 PM EDT [facility] Total Bilirubin 0.7 0.0 - 1.4 mg/dL LAB CHEMISTRY METHOD 09/15/2025 1:06 PM EDT [facility] Blood Venous blood specimen / Unknown Venipuncture / Unknown 09/15/2025 6:28 AM EDT 09/15/2025 10:14 AM EDT us Mohit Willis MD LAB BLOOD ORDERABLES Final Resul t [facility] [address] [place] [address], documented in this encounter Visit Diagnoses Diagnosis Chronic obstructive pulmonary disease, unspecified (CMS/HCC V24, CMS/HCC V28) Heart failure, unspecified (CMS/HCC V24, CMS/HCC V28) Heart failure, unspecified documented in this encounter Care Teams Paver Layer Relationship Specialty Start Date End Date Yong Dodson MD [address] [place] [address], [phone] PCP - General Family Medicine 07/25/25 documented as of this encounter
--- OUTSIDE RECORDS SUMMARY | 2025-09-26 13:31 | XMS_ITS | Encounter Summary ---
Author Organization [facility] Address [address] [place] [address] Care Team Providers Care Special Education Instructor Name Role Phone Yong Dodson MD Primary Care Provider [phone] Encounter Details Date Type Department Care Team (Late st Contact Info) Description 08/03/2025 Lab Requisition [facility] - Main Lab [address] [place] [address] Yong Dodson MD [address] [facility] [address] [place], [phone] Chronic obstructive pulmonary disease, unspecified (CMS/HCC [...] LAB CHEMISTRY METHOD 08/04/2025 12:[address] [facility] Potassium 4.2 3.5 - 5.5 mmol/L LAB CHEMISTRY METHOD 08/04/2025 12:39 PM [facility] Chloride 103 96 - 110 mmol/L LAB CHEMISTRY METHOD 08/04/2025 12:39 PM [facility] CO2 25 21 - 32 mmol/L LAB CHEMISTRY METHOD 08/04/2025 12:39 PM [facility] Anion Gap 10 3 - 11 LAB CHEMISTRY METHOD 08/04/2025 12:39 PM [facility] Glucose 181(H) 70 - 100 mg/dL LAB CHEMISTRY METHOD 08/04/2025 12:39 PM [facility] BUN 22 5 - 25 mg/dL LAB CHEMISTRY METHOD 08/04/2025 12:39 PM [facility] Creatinine 0.89 0.50 - 1.10 mg/dL LAB CHEMISTRY METHOD 08/04/2025 12:39 PM [facility] eGFR 66 >=60 mL/min/1. 73m2 LAB CHEMISTRY METHOD 08/04/2025 12:39 PM [facility] Comment:Calculation based on the Chronic Kidney Disease Epidemiology Collaboration (CKD-EPI) equation refit without adjustment for race. BUN/Creatinine Ratio 24.7 LAB CHEMISTRY METHOD 08/04/2025 12:39 PM [facility] Calcium 9.5 8.5 - 10.5 mg/dL LAB CHEMISTRY METHOD 08/04/2025 12:39 PM [facility] Blood Venous blood specimen / Unknown Venipuncture / Unknown 08/04/2025 6:15 AM EDT 08/04/2025 10:56 AM EDT us Yong Dodson MD LAB BLOOD ORDERABLES Final Resul t [facility] [address] [place] [address], [place] [phone] * (ABNORMAL) Complete blood count (08/04/2025 6:15 AM EDT) [facility] WBC 12.4(H) 4.8 - 10.8 K/mcL LAB HEMETOLOGY METHOD 08/04/2025 1:04 PM [facility] RBC 3.60(L) 3.80 - 4.80 M/mcL LAB HEMETOLOGY METHOD [facility] Hemoglobin 10.6(L) 11.5 - 16.0 g/dL LAB HEMETOLOGY METHOD 08/04/2025 1:04 PM [facility] Hematocrit 34.7(L) 35.0 - 47.0 % LAB HEMETOLOGY METHOD 08/04/2025 1:04 PM [facility] MCV 97.5 79.0 - 98.0 FL LAB HEMETOLOGY METHOD [facility]/04[facility]2025 1[facility] MCH 29.8 27.0 - 32.0 pcg LAB HEMETOLOGY METHOD 08/04/2025 1:04 PM [facility] MCHC 30.5(L) 32.0 - 37.0 g/dL LAB HEMETOLOGY METHOD 08/04/2025 1:04 PM [facility] RDW 14.6 11.0 - 15.0 % LAB HEMETOLOGY METHOD 08/04/2025 1:04 PM [facility] Platelets 274 130 - 400 K/mcL LAB HEMETOLOGY METHOD 08/04/2025 1:04 PM [facility] MPV 10.7 7.0 - 11.0 FL LAB HEMETOLOGY METHOD 08/04/2025 1:04 PM [facility] NRBC 0.0 <1.0 % LAB HEMETOLOGY METHOD [facility] NRBC Absolute 0.00 <0.10 K/mcL LAB HEMETOLOGY METHOD 08/04/2025 1:04 PM EDT [facility] Blood Venous blood specimen / Unknown Venipuncture / Unknown 08/04/2025 6:15 AM EDT 08/04/2025 10:56 AM EDT us Yong Dodson MD LAB BLOOD ORDERABLES Final Resul t [facility] [address] [place] [address], documented in this encounter Visit Diagnoses Diagnosis Chronic obstructive pulmonary disease, unspecified (CMS/HCC V24, CMS/HCC V28) documented in this encounter Care Teams Special Education Instructor Relationship Specialty Start Date End Date Yong Dodson MD [address] [place] [phone] PCP - General Family Medicine 07/25/25 documented as of this encounter
--- OUTSIDE RECORDS SUMMARY | 2025-09-26 13:32 | XMS_ITS | Encounter Summary ---
Author Organization [facility] Address [address] [place] [address] Care Team Providers Care Mechanical Ordnance Assembler Name Role Phone Yong Dodson MD Primary Care Provider [phone] Encounter Details Date Type Department Care Team (Late st Contact Info) Description 07/25/2025 Lab Requisition [facility] - Main Lab [address] [place] [address] Yong Dodson MD 38 [facility] [address] [place], [phone] Chronic obstructive pulmonary disease, unspecified (CMS/HCC [...] LAB CHEMISTRY METHOD 07/25/2025 9:28 AM EDT [facility] Potassium 4.6 3.5 - 5.5 mmol/L LAB CHEMISTRY METHOD 07/25/2025 9:[address] [facility] Chloride 100 96 - 110 mmol/L LAB CHEMISTRY METHOD 07/25/2025 9:[address] [facility] CO2 29 21 - 32 mmol/L LAB CHEMISTRY METHOD 07/25/2025 9:[address] [facility] Anion Gap 6 3 - 11 LAB CHEMISTRY METHOD 07/25/2025 9:[address] [facility] Glucose 199(H) 70 - 100 mg/dL LAB CHEMISTRY METHOD 07/25/2025 9:[address] [facility] BUN 31(H) 5 - 25 mg/dL LAB CHEMISTRY METHOD 07/25/2025 9:[address] [facility] Creatinine 1.37(H) 0.50 - 1.10 mg/dL LAB CHEMISTRY METHOD 07/25/2025 9:[address] [facility] eGFR 39(L) >=60 mL/min/1. 73m2 LAB CHEMISTRY METHOD 07/25/2025 9:[address] [facility] Comment:Calculation based on the Chronic Kidney Disease Epidemiology Collaboration (CKD-EPI) equation refit without adjustment for race. BUN/Creatinine Ratio 22.6 LAB CHEMISTRY METHOD 07/25/2025 9:[address] [facility] Calcium 9.4 8.5 - 10.5 mg/dL LAB CHEMISTRY METHOD 07/25/2025 9:[address] [facility] AST (SGOT) 29 10 - 42 unit/L LAB CHEMISTRY METHOD 07/25/2025 9:[address] [facility] ALT (SGPT) 11 10 - 60 unit/L LAB CHEMISTRY METHOD 07/25/2025 9:[address] [facility] Alkaline Phosphatase 105 42 - 121 unit/L LAB CHEMISTRY METHOD 07/25/2025 9:[address] [facility] Total Protein 5.9(L) 6.0 - 8.0 g/dL LAB CHEMISTRY METHOD 07/25/2025 9:28 AM EDT [facility] Albumin 2.7(L) 3.2 - 5.0 g/dL LAB CHEMISTRY METHOD 07/25/2025 9:28 AM EDT [facility] Total Bilirubin 0.5 0.0 - 1.4 mg/dL LAB CHEMISTRY METHOD 07/25/2025 9:28 AM EDT [facility] Blood Venous blood specimen / Unknown Venipuncture / Unknown 07/25/2025 5:24 AM EDT 07/25/2025 8:29 AM EDT us Yong Dodson MD LAB BLOOD ORDERABLES Final Resul t [facility] [address] [place] [address], * (ABNORMAL) Complete blood count (07/25/2025 5:24 AM EDT) WBC 10.7 4.8 - 10.8 K/mcL LAB HEMETOLOGY METHOD 07/25/2025 8:[address] [facility] RBC 3.30(L) 3.80 - 4.80 M/mcL LAB HEMETOLOGY METHOD 07/25/2025 8:52 AM EDT [facility] Hemoglobin 9.9(L) 11.5 - 16.0 g/dL LAB HEMETOLOGY METHOD 07/25/2025 8:52 AM EDT [facility] Hematocrit 32.6(L) 35.0 - 47.0 % LAB HEMETOLOGY METHOD 07/25/2025 8:52 AM EDT [facility] MCV 97.6 79.0 - 98.0 FL LAB HEMETOLOGY METHOD 07/25/2025 8:52 AM EDT [facility] MCH 29.6 27.0 - 32.0 pcg LAB HEMETOLOGY METHOD 07/25/2025 8:52 AM EDT [facility] MCHC 30.4(L) 32.0 - 37.0 g/dL LAB HEMETOLOGY METHOD 07/25/2025 8:52 AM EDT [facility] RDW 14.5 11.0 - 15.0 % LAB HEMETOLOGY METHOD 07/25/2025 8:52 AM EDT [facility] Platelets 171 130 - 400 K/mcL LAB HEMETOLOGY METHOD 07/25/2025 8:52 AM EDT [facility] MPV 12.0(H) 7.0 - 11.0 FL LAB HEMETOLOGY METHOD 07/25/2025 8:52 AM EDT [facility] NRBC 0.0 <1.0 % LAB HEMETOLOGY METHOD 07/25/2025 8:52 AM EDT [facility] NRBC Absolute 0.00 <0.10 K/mcL LAB HEMETOLOGY METHOD 07/25/2025 8:52 AM T [facility] Blood Venous blood specimen / Unknown Venipuncture / Unknown 07/25/2025 5:24 AM EDT 07/25/2025 8:29 AM EDT us Yong Dodson MD LAB BLOOD ORDERABLES Final Resul t [facility] [address] [place] [address], documented in this encounter Visit Diagnoses Diagnosis Chronic obstructive pulmonary disease, unspecified (CMS/HCC V24, CMS/HCC V28) documented in this encounter Care Teams Mechanical Ordnance Assembler Relationship Specialty Start Date End Date Yong Dodson MD [address] [place] [address], [phone] PCP - General Family Medicine 07/25/25 documented as of this encounter
--- OUTSIDE RECORDS SUMMARY | 2025-09-26 13:32 | XMS_ITS | Encounter Summary ---
Author Organization [facility] Address [address] [place] [address] Care Team Providers Care Search Strategist Name Role Phone Yong Dodson MD Primary Care Provider [phone] Encounter Details Date Type Department Care Team (Late st Contact Info) Description 09/24/2025 Lab Requisition [facility] - Main Lab [address] [facility] [place] [address] Mohit Willis MD [address] [place], [place] [id number] Heart failure, unspecified (CMS/HCC V24, CMS/HCC V28); [...] Hold for add-ons. 09/24/2025 1:01 PM EST [facility] Comment:Auto resulted. Blood Venous blood specimen / Unknown Venipuncture / Unknown 09/24/2025 7:18 AM EST 09/24/2025 11:36 AM EST us Mohit Willis MD LAB BLOOD ORDERABLES Final Resul t [facility] [address] [place] [address], * (ABNORMAL) Comprehensive metabolic panel (09/24/2025 7:18 AM EST) [facility] Sodium 137 133 - 145 mmol/L [...] Final Resul t [facility] [address] [place] [address], * (ABNORMAL) Complete blood count (09/24/2025 7:18 [...] LAB HEMETOLOGY METHOD 09/24/2025 12:14 PM EST [facility] MCH 29.2 27.0 - 32.0 [...] Resul t [facility] [address] [place] [address], documented in this encounter Visit Diagnoses Diagnosis [...] (CMS/HCC V24, CMS/HCC V28) 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
--- OUTSIDE RECORDS SUMMARY | 2025-09-26 13:32 | XMS_ITS | Encounter Summary ---
Author Organization [facility] Address [address] [place] [address] Care Team Providers Care Celluloid Trimmer Name Role Phone Yong Dodson MD Primary Care Provider [phone] Encounter Details Date Type Department Care Team (Late st Contact Info) Description 09/16/2025 Lab Requisition [facility] - Main Lab 299 [facility] [place] [address] Mohit Willis MD [address] [place] [address] Altered mental status, unspecified Social History Tobacco [...] ALLISON Final Result [facility] [address] [place] [address], * (ABNORMAL) Urinalysis with reflex microscopic and culture (09/15/2025 12:00 AM EDT) [facility] [place] Urine 1.019 1.003 - 1.030 LAB URINALYSIS - AUTOMATED METHOD 09/16/2025 11:20 AM EDT [facility] pH, Urine 5.5 5.0 - 8.0 pH LAB URINALYSIS - AUTOMATED METHOD 09/16/2025 11:20 AM EDT [facility] Leukocytes, Urine Large(A) Negative LAB URINALYSIS - AUTOMATED METHOD 09/16/2025 11:20 AM [facility] Nitrite, Urine Negative Negative LAB URINALYSIS - AUTOMATED METHOD 09/16/2025 11:20 AM [facility] Protein, Urine 300(A) <=Trace mg/dL LAB URINALYSIS - AUTOMATED METHOD 09/16/2025 11:20 AM [facility] Glucose, Urine Negative Negative mg/dL LAB URINALYSIS - AUTOMATED METHOD 09/16/2025 11:20 AM [facility] Ketones, Urine Trace(A) Negative mg/dL LAB URINALYSIS - AUTOMATED METHOD 09/16/2025 11:20 AM [facility] Urobilinogen , Urine 1.0 0.2 - 1.0 mg/dL LAB URINALYSIS - AUTOMATED METHOD 09/16/2025 11:20 AM [facility] Bilirubin, Urine Negative Negative LAB URINALYSIS - AUTOMATED METHOD 09/16/2025 11:20 AM [facility] Blood, Urine Trace(A) Negative LAB URINALYSIS - AUTOMATED METHOD 09/16/2025 11:20 AM [facility] RBC, Urine 9.9(H) 0 - 4 /HPF LAB URINALYSIS - AUTOMATED METHOD 09/16/2025 11:20 AM [facility] WBC, Urine 1,366.1(H) 0 - 4 /HPF LAB URINALYSIS - AUTOMATED METHOD 09/16/2025 11:20 AM [facility] Squamous Epithelial, Urine 13 0 - 60 /LPF LAB URINALYSIS - AUTOMATED METHOD 09/16/2025 11:20 AM [facility] Bacteria, Urine Many(A) Negative /HPF LAB URINALYSIS - AUTOMATED METHOD 09/16/2025 11:20 AM [facility] Hyaline Casts, Urine 1.4 0 - 3 /LPF LAB URINALYSIS - AUTOMATED METHOD 09/16/2025 11:20 AM EDT [facility] Urine Urine specimen from urethra / Unknown 09/15/2025 09/16/2025 10:18 AM EDT us Mohit Willis MD LAB URINE ORDERABLES Final Resul t Performing Organization Address City/[facility]/ZIP Co de Phone Number [facility] [address] [place] [address], [place] [phone] * Mazariegos urine culture tube (09/15/2025 12:00 AM EDT) Extra Tube Hold for add-ons. 09/16/2025 12:01 PM EDT [facility] Comment:Auto resulted. Urine Urine specimen from urethra / Unknown 09/15/2025 09/16/2025 10:18 AM EDT Mohit Willis MD LAB URINE ORDERABLES Final Resul t Performing Organization Address [facility] Co de Phone Number [facility] [address] [place] [address], [place] [phone] documented in this encounter Visit Diagnoses Diagnosis Altered mental status, unspecified documented in this encounter Care Teams Celluloid Trimmer Relationship Specialty Start Date End Date Yong Dodson MD [address] [place] [phone] PCP - General Family Medicine 07/25/25 documented as of this encounter
--- OUTSIDE RECORDS SUMMARY | 2025-09-26 13:32 | XMS_ITS | Encounter Summary ---
Author Organization [facility] Address [address] [place] [address] Care Team Providers Care Tank Truck Operator Name Role Phone Yong Dodson MD Primary Care Provider [phone] Encounter Details Date Type Department Care Team (Late st Contact Info) Description 07/26/2025 Lab Requisition [facility] - Main Lab [address] [place] [address] Yong Dodson MD 38 [facility] [address] [place], [phone] Chronic obstructive pulmonary disease, unspecified (CMS/HCC [...] LAB CHEMISTRY METHOD 07/28/2025 12:29 PM EDT [facility] Potassium 4.4 3.5 - 5.5 mmol/L LAB CHEMISTRY METHOD 07/28/2025 12:29 PM [facility] Chloride 104 96 - 110 mmol/L LAB CHEMISTRY METHOD 07/28/2025 12:29 PM [facility] CO2 28 21 - 32 mmol/L LAB CHEMISTRY METHOD 07/28/2025 12:29 PM [facility] Anion Gap 8 3 - 11 LAB CHEMISTRY METHOD 07/28/2025 12:29 PM [facility] Glucose 177(H) 70 - 100 mg/dL LAB CHEMISTRY METHOD 07/28/2025 12:29 PM [facility] BUN 29(H) 5 - 25 mg/dL LAB CHEMISTRY METHOD 07/28/2025 12:29 PM [facility] Creatinine 1.09 0.50 - 1.10 mg/dL LAB CHEMISTRY METHOD 07/28/2025 12:29 PM [facility] eGFR 52(L) >=60 mL/min/1. 73m2 LAB CHEMISTRY METHOD 07/28/2025 12:29 PM [facility] Comment:Calculation based on the Chronic Kidney Disease Epidemiology Collaboration (CKD-EPI) equation refit without adjustment for race. BUN/Creatinine Ratio 26.6 LAB CHEMISTRY METHOD 07/28/2025 12:29 PM [facility] Calcium 9.0 8.5 - 10.5 mg/dL LAB CHEMISTRY METHOD 07/28/2025 12:29 PM [facility] Blood Venous blood specimen / Unknown Venipuncture / Unknown 07/28/2025 6:20 AM EDT 07/28/2025 10:56 AM EDT us Yong Dodson MD LAB BLOOD ORDERABLES Final Resul t [facility] [address] [place] [address], [place] [phone] * (ABNORMAL) Complete blood count (07/28/2025 6:20 AM EDT) [facility] WBC 8.7 4.8 - 10.8 K/mcL LAB HEMETOLOGY METHOD 07/28/2025 11:28 AM [facility] RBC 3.30(L) 3.80 - 4.80 M/mcL LAB HEMETOLOGY METHOD 07/28/2025 11:28 AM [facility] Hemoglobin 9.8(L) 11.5 - 16.0 g/dL LAB HEMETOLOGY METHOD 07/28/2025 11:28 AM [facility] Hematocrit 32.5(L) 35.0 - 47.0 % LAB HEMETOLOGY METHOD 07/28/2025 11:28 AM [facility] MCV 98.8(H) 79.0 - 98.0 FL LAB HEMETOLOGY METHOD 07/28/2025 11:28 AM [facility] MCH 29.8 27.0 - 32.0 pcg LAB HEMETOLOGY METHOD 07/28/2025 11:28 AM [facility] MCHC 30.2(L) 32.0 - 37.0 g/dL LAB HEMETOLOGY METHOD 07/28/2025 11:28 AM [facility] RDW 14.4 11.0 - 15.0 % LAB HEMETOLOGY METHOD 07/28/2025 11:28 AM [facility] Platelets 213 130 - 400 K/mcL LAB HEMETOLOGY METHOD 07/28/2025 11:28 AM [facility] MPV 11.8(H) 7.0 - 11.0 FL LAB HEMETOLOGY METHOD 07/28/2025 11:28 AM [facility] NRBC 0.0 <1.0 % LAB HEMETOLOGY METHOD 07/28/2025 11:28 AM EDT [facility] NRBC Absolute 0.00 <0.10 K/mcL LAB HEMETOLOGY METHOD 07/28/2025 11:28 AM EDT [facility] Blood Venous blood specimen / Unknown Venipuncture / Unknown 07/28/2025 6:20 AM EDT 07/28/2025 10:56 AM EDT us Yong Dodson MD LAB BLOOD ORDERABLES Final Resul t [facility] [address] [place] [address], documented in this encounter Visit Diagnoses Diagnosis Chronic obstructive pulmonary disease, unspecified (CMS/HCC V24, CMS/HCC V28) documented in this encounter Care Teams Tank Truck Operator Relationship Specialty Start Date End Date Yong Dodson MD [address] [place] [address], [phone] PCP - General Family Medicine 07/25/25 documented as of this encounter
--- OUTSIDE RECORDS SUMMARY | 2025-09-26 13:32 | XMS_ITS | Encounter Summary ---
Author Organization [facility] Address [address] [place] [address] Care Team Providers Care Nanny Babysitter Name Role Phone Yong Dodson MD Primary Care Provider [phone] Encounter Details Date Type Department Care Team (Late st Contact Info) Description 08/02/[address] [facility] - Main Lab 299 [facility] [place] [address] Yong Dodson MD [address] [place] [address] [address] [place], [phone] Chronic kidney disease, stage 3a (CMS/HCC [...] * Lipase (08/02/2025 12:29 PM EDT) Pathologist [facility] Lipase 54 13 - 75 unit/L LAB CHEMISTRY METHOD 08/02/2025 1:34 PM EDT [facility] Blood Venous blood specimen / Unknown Venipuncture / Unknown 08/02/2025 12:29 PM EDT 08/02/2025 12:53 PM EDT Yong Dodson MD LAB BLOOD ORDERABLES Final Resul t Performing Organization Address City/[facility]/ZIP Co de Phone Number [facility] [address] [place] [address], [place] [phone] * Amylase (08/02/2025 12:29 PM EDT) [facility] Amylase 45 25 - 115 unit/L LAB CHEMISTRY METHOD 08/02/2025 1:34 PM EDT [facility] Blood Venous blood specimen / Unknown Venipuncture / Unknown 08/02/2025 12:29 PM EDT 08/02/2025 12:53 PM EDT Yong Dodson MD LAB BLOOD ORDERABLES Final Resul t Performing Organization Address City/[facility]/ZIP Co de Phone Number [facility] [address] [place] [address], [place] [phone] * (ABNORMAL) Comprehensive metabolic panel (08/02/2025 12:29 PM EDT) Pathologist [facility] Sodium 138 133 - 145 mmol/L LAB CHEMISTRY METHOD 08/02/2025 1:34 PM EDT [facility] Potassium 4.6 3.5 - 5.5 mmol/L LAB CHEMISTRY METHOD 08/02/2025 1:34 PM EDT [facility] Chloride 102 96 - 110 mmol/L LAB CHEMISTRY METHOD 08/02/2025 1:34 PM [facility] CO2 26 21 - 32 mmol/L LAB CHEMISTRY METHOD 08/02/2025 1:34 PM [facility] Anion Gap 10 3 - 11 LAB CHEMISTRY METHOD 08/02/2025 1:34 PM [facility] Glucose 294(H) 70 - 100 mg/dL LAB CHEMISTRY METHOD 08/02/2025 1:34 PM [facility] BUN 17 5 - 25 mg/dL LAB CHEMISTRY METHOD 08/02/2025 1:34 PM [facility] Creatinine 1.04 0.50 - 1.10 mg/dL LAB CHEMISTRY METHOD 08/02/2025 1:34 PM [facility] eGFR 55(L) >=60 mL/min/1. 73m2 LAB CHEMISTRY METHOD 08/02/2025 1:34 PM [facility] Comment:Calculation based on the Chronic Kidney Disease Epidemiology Collaboration (CKD-EPI) equation refit without adjustment for race. BUN/Creatinine Ratio 16.3 LAB CHEMISTRY METHOD 08/02/2025 1:34 PM [facility] Calcium 9.1 8.5 - 10.5 mg/dL LAB CHEMISTRY METHOD 08/02/2025 1:34 PM [facility] AST (SGOT) 15 10 - 42 unit/L LAB CHEMISTRY METHOD 08/02/2025 1:34 PM [facility] ALT (SGPT) 15 10 - 60 unit/L LAB CHEMISTRY METHOD 08/02/2025 1:34 PM [facility] Alkaline Phosphatase 119 42 - 121 unit/L LAB CHEMISTRY METHOD 08/02/2025 1:34 PM [facility] Total Protein 6.3 6.0 - 8.0 g/dL LAB CHEMISTRY METHOD 08/02/2025 1:34 PM [facility] Albumin 2.8(L) 3.2 - 5.0 g/dL LAB CHEMISTRY METHOD 08/02/2025 1:34 PM EDT [facility] Total Bilirubin 0.6 0.0 - 1.4 mg/dL LAB CHEMISTRY METHOD 08/02/2025 1:34 PM EDT [facility] Blood Venous blood specimen / Unknown Venipuncture / Unknown 08/02/2025 12:29 PM EDT 08/02/2025 12:53 PM EDT us Yong Dodson MD LAB BLOOD ORDERABLES Final Resul t [facility] [address] [place] [address], [place] [phone] * (ABNORMAL) Complete blood count (08/02/2025 12:29 PM EDT) WBC 12.1(H) 4.8 - 10.8 K/mcL LAB HEMETOLOGY METHOD 08/02/2025 1:30 PM EDT [facility] RBC 3.70(L) 3.80 - 4.80 M/mcL LAB HEMETOLOGY METHOD 08/02/2025 1:30 PM EDT [facility] Hemoglobin 11.0(L) 11.5 - 16.0 g/dL LAB HEMETOLOGY METHOD 08/02/2025 1:30 PM EDT [facility] Hematocrit 35.7 35.0 - 47.0 % LAB HEMETOLOGY METHOD 08/02/2025 1:30 PM EDT [facility] MCV 97.3 79.0 - 98.0 FL LAB HEMETOLOGY METHOD 08/02/2025 1:30 PM EDT [facility] MCH 30.0 27.0 - 32.0 pcg LAB HEMETOLOGY METHOD 08/02/2025 1:30 PM EDT [facility] MCHC 30.8(L) 32.0 - 37.0 g/dL LAB HEMETOLOGY METHOD 08/02/2025 1:30 PM EDT [facility] RDW 14.5 11.0 - 15.0 % LAB HEMETOLOGY METHOD 08/02/2025 1:30 PM EDT [facility] Platelets 267 130 - 400 K/mcL LAB HEMETOLOGY METHOD 08/02/2025 1:30 PM EDT [facility] MPV 10.9 7.0 - 11.0 FL LAB HEMETOLOGY METHOD 08/02/2025 1:30 PM EDT [facility] NRBC 0.0 <1.0 % LAB HEMETOLOGY METHOD 08/02/2025 1:30 PM EDT [facility] NRBC Absolute 0.00 <0.10 K/mcL LAB HEMETOLOGY METHOD 08/02/2025 1:30 PM EDT [facility] Blood Venous blood specimen / Unknown Venipuncture / Unknown 08/02/2025 12:29 PM EDT 08/02/2025 12:53 PM EDT us Yong Dodson MD LAB BLOOD ORDERABLES Final Resul t [facility] [address] [place] [address], documented in this encounter Visit Diagnoses Diagnosis Chronic kidney disease, stage 3a (CMS/HCC V24, CMS/HCC V28) documented in this encounter Care Teams Nanny Babysitter Relationship Specialty Start Date End Date Yong Dodson MD [address] [place] [address], [phone] PCP - General Family Medicine 07/25/25 documented as of this encounter
== END ==
LOC: HO.CARD 11:12
PROVIDERS: PCP Nurse Practitioner Gerontology
DX: R06.00 Dyspnea, unspecified (principal)
CPT/HCPCS: 93306

== ENCOUNTER → 2025-09-26 11:14 | Outpatient (BNV) | payer MEDICARE, SELFPAY | PROVIDERS: PCP Nurse Practitioner Gerontology; Visit Provider Internal Medicine Cardiovascular Disease | DX: I34.81 Nonrheumatic mitral (valve) annulus calcification (principal); I35.0 Nonrheumatic aortic (valve) stenosis | CPT/HCPCS: 93306 ==

== ENCOUNTER 2025-10-27 14:43 | Outpatient (AMB) | payer MEDICARE, SELFPAY ==
--- OUTSIDE RECORDS SUMMARY | 2025-10-24 13:44 | XMS_ITS | Continuity of Care Document ---
Author Organization [facility] Address [address] [facility] [address] [place] [address] Phone Care Team Providers Care Trouble Tracer Name Role Phone Jannette Centeno PT Unavailable Unavailab le Allergies, Adverse Reactions, Alerts Substance Reaction Status Criticality ADHESIVE BANDAGE Active No Informat ion OXYCODONE HCL Active No Information acetaminophen Active No Information WARNIN allergy(ies) could not be collected because the type is not supported. Please contact the source practice for further details. Medications Medication Instructions Dosage Effective Dates (start - stop) Status Comments albuterol sulfate HFA 90 mcg/actuation aerosol inhaler inhale 2 puff by inhalation route every 4 - 6 hours as needed for sob and wheezing - Active AREDS 2 Vitamins ORAL take one tablet by mouth BID - Active Advair HFA 230 mcg-21 mcg/actuation aerosol inhaler INHALE 2PUFFS INTO THE LUNGS TWICE A DAY. IN THE MORNING AND IN THE EVENING - Active Vitamin B-12 1,000 mcg tablet TAKE 1 TABLET BY MOUTH DAILY. - Active Spiriva Respimat 2.5 mcg/actuation solution for inhalation HOLD USE 2 PUFFS BY MOUTH AT THE SAME TIME EACH DAY - Active Vitamin D3 50 mcg (2,000 unit) tablet INCREASED take one tablet by mouth daily - Active vit d level 27 increased vit d amoxicillin 500 mg-potassium clavulanate 125 mg tablet take 1 tablet by oral route every 12 hours for 7 days - Active uti aspirin 81 mg ORAL TABLET take one tablet by mouth daily - Active clopidogrel 75 mg tablet take 1 tablet by oral route every day 75 MG - Active ezetimibe 10 mg tablet take 1 tablet by oral route every day at bedtime - Active omeprazole 20 mg capsule,delayed release take 1 capsule by oral route every day 30 minutes to 1 hour before a meal - Active losartan 100 mg tablet take 1 tablet by oral route every day - Active furosemide 20 mg tablet take 1 tablet by oral route every day 20 MG - Active recently hopsitalization and cards went up however jesus held and now resolved will start lower home dose Jardiance 10 mg tablet take 1 tablet by oral route every day in the morning per cards 09/29 - Active new from cards 09/2025 ropinirole 1 mg tablet take 1 tablet by oral route daily at 2 hours before bedtime - Active increased Lantus Solostar U-100 Insulin 100 unit/mL (3 mL) subcutaneous pen Inject 34 units SQ once daily at bedtime. - Active oxybutynin chloride ER 10 mg tablet,extended release 24 hr take 1 tablet by oral route every day 10 MG - Active acetaminophen 325 mg tablet take 2 tablets by mouth every 6 hours as needed - Active FreeStyle Kalli 3 Plus Sensor device Use for continuous glucose monitoring. Change every 14 days. - Active atorvastatin 40 mg tablet take 1 tablet by oral route every day AT BEDTIME - Active LDL 29 REDUCED CAN WAIT TIL NEXT FILL fluoxetine 20 mg capsule increased, take 1.5 capsule (30 mg) by oral route every day in the morning - Active metoprolol tartrate 100 mg tablet increased 09/25 by cards, take 1 tablet by oral route 2 times every day with meals - Active increased cards 09/2025 Oxygen NASAL conserving device to maintain sats 88-94% - Active Miralax 17 gram oral powder packet 1 pack/packet by mouth daily as needed for constipation - Active Multivitamin 50 Plus tablet Take 1 tab oral route daily - Active Milk of Magnesia 400 mg/5 mL oral suspension take 30 milliliter by oral route every day as needed, followed by a full glass (8 oz) of liquid 30.00 milliliter - Active metformin 500 mg tablet take 1 tablet by oral route 2 times every day with morning and evening meals 500 MG - Active Assure ID Pro Pen Needle 30 gauge x 3/16 use to give insulin subcutaneously - Active IPRAT-ALBUT 0.5-3(2.5) MG/3 ML INHALE 1 VIAL (3ML) BY NEBULIZATION ROUTE TWICE A DAY - Active BD AutoShield Duo Pen Needle 30 gauge x 3/16 use to give insulin daily by sq - Active FreeStyle Kalli 3 Mclean use to give insulin - Active broken Flonase Allergy Relief 50 mcg/actuation nasal spray,suspension spray 1 spray by intranasal route every day in each nostril as needed - Active nitroglycerin 0.[address] 1 tablet by sublingual route every 5 minutes as needed for chest pain. Do not exceed 3 doses in 15 minutes. 0.4 MG - Active Senna Lax 8.6 mg tablet take 2 tablet by oral route every day as needed for constipation - Active Procedures Procedure Date PT RE-EVAL EST PLAN CARE Advance Directives Directive Yes / No Effective Date File Name No Information Encounters Encounter Description Practice Location Reason(s) For Visit Diagnoses Date Provider [facility], [address] [address], [place], [place], [id number], tel:[phone] [place] Encounter for rehabilitation evaluation 5 Taryn Bhatia. [address] [place], [place], [id number], [place]. tel:[phone] [facility], [address], [place], [place], [id number], [place] tel:[phone] [place] Muscle weakness (generalized) 5 Kenna Sanford. [address] [facility] , [place], [place], [id number]. tel:[phone] [facility], [address], [place], [place], [id number], [place] tel:[phone] [place] No Information Dec-0 4-202 5 Steinberg Beverly. [address] [place], [id number], [place]. tel:[phone] [facility], [address] [facility] [address], [place], [place], [id number], [place] tel:[phone] [place] No Information Dec-0 3-202 5 Steinberg Beverly. [address] [place] [place], [id number], [place]. tel:[phone] [facility], [address], [place], [place], [id number], [place] tel:[phone] [place] Muscle weakness (generalized) Dec-0 2-202 5 Putremayne Sanford. [address] [place], [place], [id number]. tel:[phone] [facility], [address] [facility] [facility], [place], [place], [id number], [place] tel:[phone] [place] Muscle weakness (generalized) Dec-0 2-202 5 Grochowski Jannette. [address] [place], [id number], [place]. tel:[phone] [facility], [address] [facility] [address] [facility], [place], [place], [id number], [place] tel:[phone] [place] Muscle weakness (generalized) Nov-2 6- 5 Puffer Gabbi Sanford. [address] [place], [place], [id number]. tel:[phone] [facility], [address], [place], [place], [id number], [place] tel:[phone] [place] Muscle weakness (generalized) Nov-2 5-202 5 Grochowski Jannette. [address], [place], [place], [id number], [place]. tel:[phone] [facility], [address] [facility] [facility], [place], [place], [id number], [place] tel:[phone] [place] Muscle weakness (generalized) 5 Kenna Sanford. [address] [place], [place], [id number]. tel:[phone] [facility], [address] [facility] [facility], [place], [place], [id number], [place] tel:[phone] [place] No Information 5 Idris Paul. [address] [facility] [place], [id number], [place]. tel:[phone] [facility], [address] [facility] [address] [facility], [place], [place], [id number], [place] tel:[phone] [place] Muscle weakness (generalized) 5 Taryn Bhatia. [address] [facility] [place], [id number], [place]. tel:[phone] [facility], [address] [facility] [address] [facility], [place], [place], [id number], [place] tel:[phone] [place] Encounter for rehabilitation evaluationAlteration in performance of activities of daily livingDifficulty in walking, not elsewhere classifiedMuscle weakness (generalized) 5 Kenna Sanford. [address] [place], [place], [id number]. tel:[phone] [facility], [address] [facility] [facility], [place], [place], [id number], [place] tel:[phone] [place] Encounter for rehabilitation evaluation 5 Taryn Bhatia. [address] [facility] [place], [id number], [place]. tel:[phone] [facility], [address], [place], [place], [id number], [place] tel:[phone] [facility] Follow-up (chief complaint) Mild episode of recurrent major depressive disorderClosed trimalleolar fracture of right ankle with routine healing, subsequent encounterCentrilobular emphysemaLong term (current) use of oral hypoglycemic drugsLong term (current) use of insulinType 2 diabetes mellitus with hyperglycemia, unspecified whether technician terminal and repeater insulin useType 2 diabetes mellitus with diabetic chronic kidney disease, unspecified CKD stage, unspecified whether technician terminal and repeater insulin useAcute kidney injury superimposed on CKDOxygen dependentRestless leg syndromeChronic diastolic heart failureChronic kidney disease, stage 3aHypertensive heart and kidney disease with chronic diastolic congestive heart failure and stage 3 chronic kidney disease, unspecified whether stage 3a or 3b CKD 5 Idris Paul. [address], [place], [place], [id number], [place]. tel:[phone] [facility], [address] [facility] [address] [facility], [place], [place], [id number], [place] tel:[phone] [place] No Information 5 Idris Paul. [address] [facility] [facility] [place], [id number], [place]. tel:[phone] [facility], [address] [facility], [place], [place], [id number], [place] tel:[phone] [place] No Information 5 Tucker Kaur. [address] [facility] [facility] [place], [id number], [place]. tel:[phone] [facility], [address], [place], [place], [id number], [place] tel:[phone] [place] No Information 5 Idris Paul. [address] [facility] [facility] [place], [id number], [place]. tel:[phone] [facility], [address], [place], [place], [id number], [place] tel:[phone] [facility] Follow-up (chief complaint) Type 2 diabetes mellitus with hyperglycemia, unspecified whether technician terminal and repeater insulin useLong term (current) use of oral hypoglycemic drugsLong term (current) use of insulinChronic diastolic heart failureHypertensive heart and kidney disease with chronic diastolic congestive heart failure and stage 3 chronic kidney disease, unspecified whether stage 3a or 3b CKDStage 3a chronic kidney diseaseChronic obstructive pulmonary disease, unspecified COPD typeOxygen dependentClosed trimalleolar fracture of right ankle with routine healing, subsequent encounter 5 Idris Paul. [address], [place], [place], [id number], [place]. tel:[phone] [facility], [address], [place], [place], [id number], [place] tel:[phone] [place] Encounter for rehabilitation evaluation 5 Taryn Bhatia. [address], [place], [place], [id number], [place]. tel:[phone] [facility], [address], [place], [place], [id number], [place] tel:[phone] [place] Hypertensive heart a nd kidney disease with chronic diastolic congestive heart failure and stage 3 chronic kidney disease, unspecified whether stage 3a or 3b CKDChronic diastolic (congestive) heart failureChronic kidney disease, stage 3 unspecified 5 Idris Paul. [address], [place], [place], [id number], [place]. tel:[phone] [facility], [address], [place], [place], [id number], [place] tel:[phone] [place] [facility] Follow-up (chief complaint) Chronic obstructive pulmonary disease, unspecified COPD typeClosed trimalleolar fracture of right ankle with routine healing, subsequent encounter 5 Ed Lion. [address], [place], [place], [id number], [place]. tel:[phone] [facility], [address], [place], [place], [id number], [place] tel:[phone] [place] No Information Aug- 5 Idris Paul. [address], [place], [place], [id number], [place]. tel:[phone] [facility], [facility], [place], [place], [id number], [place] tel:[phone] [place] Semi-Annual (chief complaint) Mild episode of recurrent major depressive disorderHypertensive heart and kidney disease with chronic diastolic congestive heart failure and stage 3a chronic kidney diseaseChronic diastolic (congestive) heart failureChronic kidney disease, stage 3aAtherosclerosis of [place] coronary artery of [place] heart without angina pectorisOld myocardial infarctionStenosis of left subclavian arteryAtherosclerosis of [place] artery of both lower extremities, with unspecified [...] Aug- 5 Pitsiladis Marlene. [address], [place], [place], [id number], [place]. tel:[phone] [facility], [address] [address], [place], [place], [id number], [place] tel:[phone] [facility] [facility] Follow-up (chief complaint) Restless leg syndromeClosed trimalleolar fracture of right ankle with routine healing, subsequent encounterThrush, oral Oct- 5 Pitsiladis Marlene. [address] [place], [place], [address], [place]. tel:[phone] [facility], [address], [place], [place], [id number], [place] tel:[phone] [place] [facility] Follow-up (chief complaint)A cute Visit (chief complaint) Chronic diastolic heart failureHypertensive heart and kidney disease with chronic diastolic congestive heart failure and stage 3a chronic kidney diseaseChronic kidney disease, stage 3aType 2 diabetes mellitus with hyperglycemia, with long-term current use of insulinLong term (current) use of insulinClosed trimalleolar fracture of right ankle with routine healing, subsequent encounter Oct-0 9-202 5 Pitsiladis Marlene. [address] [facility], [place], [place], [id number], [place]. tel:[phone] [facility], [address], [place], [place], [id number], [place] tel:[phone] [place] Acute pulmonary edema Oct-0 8 5 Pitsiladis Marlene. [address] [facility], [place], [place], [id number], [place]. tel:[phone] [facility], [address] [facility] [address], [place], [place], [id number], [place] tel:[phone] [place] Chronic diastolic (congestive) heart failure Oct-0 7- 5 Pitsiladis Marlene. [address], [place], [place], [id number], [place]. tel:[phone] [facility], [address] [facility] [address] [facility], [place], [place], [id number], [place] tel:[phone] [place] Encounter for rehabilitation evaluation Oct-0 6-202 5 Taryn Bhatia. [address], [place], [place], [id number], [place]. tel:[phone] [facility], [address], [place], [place], [id number], [place] tel:[phone] [place] [facility] Admit (chief complaint) Closed trimalleolar fracture of right ankle with delayed healing, subsequent encounter Sep-3 0- 5 Tucker Kaur. [address], [place], [place], [id number], [place]. tel:[phone] [facility], [address] [facility] [address], [place], [place], [id number], [place] tel:[phone] [place] Encounter for rehabilitation evaluation Sep-2 5 Taryn Bhatia. [address], [place], [place], [id number], [place]. tel:[phone] [facility], [address] [facility] [address], [place], [place], [id number], [place] tel:[phone] [place] [facility] Follow-up (chief complaint) Closed trimalleolar fracture of right ankle with routine healing, subsequent encounter Sep-2 5 Ed Lion. [address] [facility] [place], [id number], [place]. tel:[phone] [facility], [address] [facility] [address] [facility], [place], [place], [id number], [place] tel:[phone] [place] [facility] Admit (chief complaint) Closed trimalleolar fracture of right ankle with routine healing, subsequent encounterCentrilobular emphysemaOxygen dependentFormer smoker Sep-1 5 Pitsiladis Marlene. [address], [place], [place], [id number], [place]. tel:[phone] [facility], [address] [facility] [address] [facility], [place], [place], [id number], [place] tel:[phone] [place] Encounter for rehabilitation evaluation Sep-1 5 Taryn Bhatia. [address], [place], [place], [id number], [place]. tel:[phone] [facility], [address] [facility] [address], [place], [place], [id number], [place] tel:[phone] [place] Other fracture of ri ght lower leg, initial encounter for closed fracture Sep-1 0- 5 Tucker Kaur. [address], [place], [place], [id number], [place]. tel:[phone] [facility], [address], [place], [place], [id number], [place] tel:[phone] [place] No Information Sep-0 5 Steinbergrita Paul. [address] [place], [id number], [place]. tel:[phone] [facility], [address] [facility] [address], [place], [place], [id number], [place] tel:[phone] [place] Muscle weakness (generalized)Difficulty in walking, not elsewhere classified Jun- 5 Taryn Bhatia. [address] [place], [place], [id number], [place]. tel:[phone] [facility], [address] [facility] [address], [place], [place], [id number], [place] tel:[phone] [place] Muscle weakness (generalized) Jun- 5 Taryn Bhatia. [address], [place], [place], [id number], [place]. tel:[phone] [facility], [address] [facility] [facility], [place], [place], [id number], [place] tel:[phone] [place] Muscle weakness (generalized) Jun- 5 Taryn Bhatia. [address] [place], [address], [place]. tel:[phone] [facility], [address] [facility] [address], [place], [place], [id number], [place] tel:[phone] [place] Muscle weakness (generalized) Jun- 5 Taryn Bhatia. [address] [place], [place], [id number], [place]. tel:[phone] [facility], [address], [place], [place], [id number], [place] tel:[phone] [place] Muscle weakness (generalized) 5 Taryn Bhatia. [address] [place], [place], [id number], [place]. tel:[phone] [facility], [address] [facility] [address], [place], [place], [id number], [place] tel:[phone] [place] Difficulty in walkin g, not elsewhere classified 5 Taryn Bhatia. [address] [place], [place], [address], [place]. tel:[phone] [facility], [address], [place], [place], [id number], [place] tel:[phone] [place] Muscle weakness (generalized) 5 Taryn Bhatia. [address] [place], [place], [id number], [place]. tel:[phone] [facility], [address] [facility] [address] [facility], [place], [place], [id number], [place] tel:[phone] [place] Muscle weakness (generalized) 5 Taryn Bhatia. [address] [place], [place], [address], [place]. tel:[phone] [facility], [address] [facility] [address], [place], [place], [id number], [place] tel:[phone] [place] Type 2 diabetes mellitus with hypoglycemia without coma, with long-term current use of insulinLong term (current) use of insulin 5 Idris Paul. [address] [place], [place], [id number], [place]. tel:[phone] [facility], [address] [facility] [address] [facility], [place], [place], [id number], [place] tel:[phone] [place] Encounter for rehabilitation evaluation 5 Taryn Bhatia. [address] [place], [place], [address], [place]. tel:[phone] [facility], [address] [facility] [address], [place], [place], [id number], [place] tel:[phone] [place] Encounter for rehabilitation evaluation 5 Uri Guadarrama. [address] [place], [place], [address], [place]. tel:[phone] [facility], [address], [place], [place], [id number], [place] tel:[phone] [place] No Information 5 Ed Aqib. [address], [place], [place], [id number], [place]. tel:[phone] [facility], [address] [facility] [facility], [place], [place], [id number], [place] tel:[phone] [place] No Information 5 Steinberg Beverly. [address] [place], [place], [id number], [place]. tel:[phone] [facility], [address] [facility] [address] [facility], [place], [place], [id number], [place] tel:[phone] [place] No Information 5 Steinberg Beverly. [address], [place], [place], [id number], [place]. tel:[phone] [facility], [address] [facility] [address] [facility], [place], [place], [id number], [place] tel:[phone] [place] No Information 5 Steinberg Beverly. [address], [place], [place], [id number], [place]. tel:[phone] [facility], [address] [facility] [facility], [place], [place], [id number], [place] tel:[phone] [place] Encounter for nutritional assessmentDiabetic nutritional counseling completedOther obesity 5 Normile Tricia. [address], [place], [place], [address], [place]. tel:[phone] [facility], [address] [facility] [address], [place], [place], [id number], tel:[phone] [place] Semi-Annual (chief complaint) Recurrent major depressive disorder, in partial remissionHypertensive heart and kidney disease with chronic diastolic congestive heart failure and stage 3 chronic kidney disease, unspecified whether stage 3a or 3b CKDChronic diastolic (congestive) heart failureStage 3a chronic kidney diseaseAtherosclerosis of [place] coronary artery of [place] heart without angina pectorisOld myocardial infarctionStenosis of left subclavian arteryHypercholesteremi aLong term (current) use of oral hypoglycemic drugsType 2 diabetes mellitus with diabetic chronic kidney disease, unspecified CKD stage, unspecified whether technician terminal and repeater insulin useLong term (current) use of insulinType 2 diabetes mellitus with hypoglycemia without coma, unspecified whether technician terminal and repeater insulin useThyroid noduleVitamin D deficiencySevere obesity (BMI [...] typeLung nodulesOSA on CPAPHealthcare maintenanceAtherosclero sis of [place] artery of both lower extremities with intermittent claudicationBMI 38.0-38.9,adult Feb- 5 Idris Paul. [address] [place], [id number], [place]. tel:[phone] [facility], [address] [facility] [address], [place], [place], [id number], [place] tel:[phone] [place] No Information 5 Idris Paul. [address], [place], [place], [id number], [place]. tel:[phone] [facility], [address], [place], [place], [id number], [place] tel:[phone] [place] HAYDEE on CPAP 0- 5 Steinberg Beverly. [address] [place], [place], [id number], [place]. tel:[phone] [facility], [address] [facility] [address] [facility], [place], [place], [address], [place] tel:[phone] [place] Alteration in performance of activities of daily living Jan-0 4- 5 Uri Chiara. [address] [place], [place], [id number], [place]. tel:[phone] [facility], [address] [facility], [place], [place], [id number], [place] tel:[phone] [place] Encounter for rehabilitation evaluation 5 Uri Chiara. [address] [place], [place], [id number], [place]. tel:[phone] [facility], [address] [facility], [place], [address], [place] tel:[phone] [place] No Information Nov- 5 Steinberg Beverly. [address] [place], [place], [address], [place]. tel:[phone] [facility], [address] [facility] [address], [place], [id number], [place] tel:[phone] [place] Follow-up (chief complaint) Type 2 diabetes mellitus with hypoglycemia without coma, unspecified whether technician terminal and repeater insulin useLong term (current) use of insulinLong term (current) use of oral hypoglycemic drugsVitamin D deficiencyHypercholeste remia Oct-0 9- 4 Steinberg Beverly. [address] [place], [place], [id number], [place]. tel:[phone] [facility], [address], [place], [place], [id number], [place] tel:[phone] [place] Encounter for rehabilitation evaluation 4 Uri Chiara. [address] [place], [place], [id number], [place]. tel:[phone] [facility], [address], [place], [place], [id number], [place] tel:[phone] [place] Muscle weakness (generalized) 4 Yen Bautista. [address] [place], [id number], [place]. tel:[phone] [facility], [address] [facility] [address], [place], [place], [id number], [place] tel:[phone] [place] Muscle weakness (generalized) 4 Yen Bautista. [address] [place] [id number], [place]. tel:[phone] [facility], [address] [facility] [address], [place], [place], [id number], [place] tel:[phone] [place] Muscle weakness (generalized)Difficulty in walking, not elsewhere classified 4 Yen Bautista. [address], [place], [place], [id number], [place]. tel:[phone] [facility], [address] [facility], [place], [place], [id number], [place] tel:[phone] [place] Muscle weakness (generalized) 4 Yen Bautista. [address] [place], [id number], [place]. tel:[phone] [facility], [address] [facility] [address], [place], [place], [id number], [place] tel:[phone] [place] PEE FUV #1 (chief complaint) HAYDEE on CPAPRestless leg syndromeHypercholestere miaChronic obstructive pulmonary disease, unspecified COPD type 4 Idris Paul. [address], [place], [place], [id number], [place]. tel:[phone] [facility], [address] [facility] [address] [facility], [place], [place], [id number], [place] tel:[phone] [place] Follow-up (chief complaint) Muscle weakness (generalized) 0 4 Yen Bautista. [address] [place], [place], [id number], [place]. tel:[phone] [facility], [address], [place], [place], [id number], [place] tel:[phone] [place] Encounter for rehabilitation evaluation 0 4 Yen Bautista. [address], [place], [place], [id number], [place]. tel:[phone] [facility], [address], [place], [place], [id number], [place] tel:[phone] [place] Muscle weakness (generalized) 0 4 Yen Bautista. [address] [place], [id number], [place]. tel:[phone] [facility], [address], [place], [place], [id number], [place] tel:[phone] [place] Muscle weakness (generalized) 3 0 4 Yen Bautista. [address], [place], [place], [id number], [place]. tel:[phone] [facility], [address], [place], [place], [id number], [place] tel:[phone] [place] Muscle weakness (generalized) 4 Yen Bautista. [address], [place], [place], [id number], [place]. tel:[phone] [facility], [address], [place], [place], [id number], [place] tel:[phone] [place] Muscle weakness (generalized) 4 Yen Bautista. [address] [place], [id number], [place]. tel:[phone] [facility], [address], [place], [place], [id number], [place] tel:[phone] [place] Muscle weakness (generalized)Difficulty in walking, not elsewhere classified 4 Yen Bautista. [address] [place], [id number], [place]. tel:[phone] [facility], [address], [place], [place], [id number], [place] tel:[phone] [place] Muscle weakness (generalized) 4 Yen Lily. [address] [place], [id number], [place]. tel:[phone] [facility], [address] [facility] [address] [facility], [place], [place], [id number], [place] tel:[phone] [place] Encounter for rehabilitation evaluation 4 Uri Guadarrama. [address] [place], [place], [id number], [place]. tel:[phone] [facility], [address], [place], [place], [id number], [place] tel:[phone] [place] Encounter for rehabilitation evaluation 4 Yen Bautista. [address] [place], [id number], [place]. tel:[phone] [facility], [address], [place], [place], [id number], [place] tel:[phone] [place] Encounter for nutritional assessmentClass 2 severe obesity with serious comorbidity and body mass index (BMI) of 39.0 to 39.9 in adult, unspecified obesity typeMorbid (severe) obesity due to excess caloriesBody mass index [BMI] 39.0-39.9, adult 4 Delon Clarke. [address] [place], [id number], [place]. tel:[phone] [facility], [address], [place], [place], [id number], [place] tel:[phone] [place] No Information 4 Idris Foxantha. [address] [place], [place], [id number], [place]. tel:[phone] [facility], [address] [address], [place], [place], [id number], [place] tel:[phone] [place] Post Enrollment Evaluation (chief complaint) Recurrent major depressive disorder, in partial remissionAtherosclerosi s of [place] coronary artery of [place] heart without angina pectorisOld myocardial infarctionStenosis of left subclavian arteryHypercholesteremi aType 2 diabetes mellitus with diabetic chronic kidney disease, unspecified CKD stage, unspecified whether technician terminal and repeater insulin useStage 3 chronic kidney disease, unspecified [...] use of oral hypoglycemic drugs 4 Idris Hawthornea. [address] [place], [place], [id number], [place]. tel:[phone] [facility], [address] [facility], [place], [place], [id number], [place] tel:[phone] [place] No Information 4 Steinberg Beverly. [address] [place], [place], [id number], [place]. tel:[phone] Family History Family Member Type Diagnosis Age [...] Payer name Insurance type Covered libertarian ID Authoriza tithuan(s) [facility] 16 [id number] [facility] 16 [id number] [facility] 16 [id number] [facility] 16 [id number] [facility] 16 [id number] Social History Type Description Quantity Date Captured [...] Lilli Eldridge BOOKED Appointment Lilli Eldridge BOOKED Appointment Lilli Eldridge BOOKED Future Order: Lab Order B-TYPE N ATRIURETIC PEPTIDE ([id number]), Scheduled for: Ordered Future Order: Lab Order NT-proBN P ([id number]), Scheduled for: Ordered Future Order: Lab Order CBC (INC LUDES DIFF/PLT) ([id number]), Scheduled for: Ordered Future Order: Lab Order COMPREHE NSIVE METABOLIC PANEL ([id number]), Scheduled for: Ordered Future Order: Radiology Order TT E Combined, 2D image, spectral Doppler, color flow image ([id number]), Ordered on: Ordered Future Order: Radiology Order CT Chest, low dose for lung screen, WITHOUT contrast ([id number]), Ordered on: Ordered Future Order: Radiology Order Po lysomnography, 4+ add'l params w/CPAP ([id number]), Ordered on: Ordered History Of Present Illness Encounter Date Complaint History Of Prese nt Illness SNF Follow-up I saw ppt in cl[facility] for snf discharge today from [facility], going home after this, she was accompanied by her daughter. Ppt is happy to be out of snf she was worried she would never get out of there and has been more emotional lately describing crying at the drop of the hat. She felt they did not listen to her. Currently still depressed and anxious glad to be out of snf. sleeping okay and eating okay but didn't like the food. NO SI. We went up on her flouxetine to 30 mg daily. She had also seen cards and due to elevated bun, probnp and wbc and hr increased metoprolol 100 mg bid, increased lasix to 40 mg and later started jardaince when echo came back with normal to low cardiac perfusion deficit. At end of her snf stay cr jumped up to 1.2 so held losartan, jardiance and lasix and checking labs today. Currently reports she is at her baseline breathing with sob with exertion at baseline o2 needs 2 at rest and 3l with exertion. Denies chest pain. Denies worsening le edema. Denies abd pain, n/v, constipation and diarrhea. She has cam boot to right food. Denies pain no longer using oxy or tazanidine just tylenol. OT and PT seeing her today wbat. They are getting her ankle sling incase she has to get up quick at home to go to bathroom with commode. Sugars were up in snf they had her on low dose lispro ss and reduced lantus and sugars are still high 100s no meter today. Denies headache or dizziness or low sugars. They also did not have her on her home ropinerol dose and started gabapentin for nerve pain due to this. per daughter follow up apptsdec 4 neoscards follow up 4 wk nov 07pulm oct 8ros see abovepenad elderly womanaxox3, forgetfulperrlhead tremor baseline with bilateral hand tremor mildlscta bilaterally on 2lpm nc baseline, no coughheart rate reg +s1 and +s2abd soft, nontender, nondistended, +[id number] le edemacalm and cooperative but tearful at times SNF Follow-up I saw ppt at [facility] for follow up. She was recently seen by Dr. Candelario last monday for readmit as she went [place] [facility] [place], jesus, uti, pna. Currently is doing well and looks more like herself. At [facility] Shay saw her and allowed her to put partial weight bearing up to 20 pounds and increase by 20 pounds with her cast on right foot every 2-3 days. She is now weight bearing as tolerated and I saw her working with PT. They report she is doing well and getting up to chair with contact guard. She walked once 10 feet. There was some confusion if she could be on less than 4 L of o2 and I discussed her baseline is 2 L at rest and 3 L with exertion. Orders in computer wean o2 based on goal o2sat 88-94 %. She was currently 98% on 4 L nc and they were weaning down. Denies sob at rest and reports some with exertion at her baseline. Denies chest pain. Denies pain to right foot. She is wearing her boot. She is eating and sleeping well. Denies abd pain and is moving her bowels and voiding. SNF was supposed to do pvrs for 2 shifts back to back and never did so verbal order is in to do that although ppt reports she is voiding well no dysuria, urgency or frequency or back pain. She is in good spirits and denies sadness. Denies n/t and weakness. Denies cough, fever and chills. Denies dizziness and headache. She followed with cards at [facility] after hospitalization on Monday. Awaiting formal noted most information is coming from daughter who walked with farm equipment engine mechanic. She had an abnormal EKG with worsening sob and cards wanted stat labs they got at [facility] right away to do which we do not have access too. Important to note I had requested ppt get cbc, cmp and probnp at [facility] after she came back from hospital but they never lyla. I had to ask again and on they came back as well that showed elevated wbc, bun, baseline cr but they did not get a probnp. We are trying to figure out lab situation and brought up to leadership. Per cards her probnp was elevated at 4600 and bun and wbc were still up, has been off steroids, and cr was normal so cards wanted increased lasix 40 mg daily and metoprolol 100 mg BID as her HR was up too 104 bmp which I left facility know via phone on . I checked today and orders are in. . She had an echo that we do not have formal read however farm equipment engine mechanic told daughter today her cardiac perfusion came back low normal and wanted her started on Jardiance 10 mg for cardiac protection which is reasonable aden with dm and sugars mildly high. I let facility know to start this agent today as soon as I found out. She does have DM and sugars in low 200s so this will help her with that as well. Lantus was reduced to 24 units prior as she was having lows but appetite is improving and she is doing better. Marisol Paige appears at her baselineaxox3, forgetfulperrllscta bilaterally, no cough on 4LNC sat 98% working with PT they are weaning her down now with my orderheart rate reg +s1 and +s2abd soft, nontender, nondistended, +ksw3obgma ortho boot in place, ANDREWS= to command and spontaneous, wb as chelsea to rlecalm and cooperative, more cheerful she is dong better SNF Follow-up Lilli is a 79 years old female who was seen for a follow up visit at the [facility]. Pt was hospitalized with COPD and UTI and was sent back to the SNF for rehab. She was seen in her room by the bedside. Pt denies any acute complaints or concerns at this time. No concerns offered by the nursing staff. Semi-Annual Lilli is a 79 year old [...] a reported BNP of 50,000 by her accredited legal secretary via labs drawn at their office in [...] to 34 units. Acute Visit SNF Admit Patients continu e to experience ankle pain related to an [...] a SNF follow up visit at the [facility]. Pt was transferred over to this SNF [...] old female who is seen today at [facility] for an admission visit. Lilli arrived to the facility yesterday afternoon. In review of recent events, she sustained a fall on 07/21 with right trimalleolar ankle fracture now s/p surgical repair. She was at [facility] from 07/24 until 08/06 and there were some concerns with her care there so she was moved to [facility] to be followed by our [facility] providers. [...] been getting her appropriate respiratory treatments at [facility], so they were restarted and began this morning. No other significant concerns when I saw her. Semi-Annual Patient was seen today for her ELZA in the office and was accompanied by her daughter who helps with hx. She started with [facility] in 08/2024. Does not attend day program. Currently lives on 3rd floor apt with significant other Jeffery, has an elevator, in [facility]. Information per collective, [facility], ppt, daughter [...] puffs o2 instead of continued flow but accredited legal secretary said she didn't quality. Educated and recommended [...] worse. She last saw [facility] on day awaiting on note and next has appt [...] ERS approved, she currently has one through [facility] ([facility]T). She is approved for 1 hour [...] her vision and what to expect with I am awaiting on her [facility] [...] on AREDs. She follows with retinal specialist-[facility]. Reports dry md in right used to get injections and wet in left got an injection on st paddy day has an appt in march 2025. [...] and daughter Vaccines: given shingrix by pcn [id number]:Mind: AxOx3, forgetful- blind versionMeds: Multiple meds working [...] and +s2Abd soft, non tender, non distended, +yqz0Rzeu intact LE mild edema non pitting, +cms, [...] sleep study yesterday as planned per her accredited legal secretary to look at her oxygen needs. However [...] fill sin gapsperrllscta bilaterally on 2l NC s2tpvsy rate reg +s1 and +s2abd soft, nontender, nondistended, +izt6snzn LE edemacalm and cooperative Follow-up Post Enrollment Evaluation Patient was seen today for her PEE in th e office and was accompanied by her daughter who helps with hx. She started with [facility] in 08/2024. Does not attend day program. Currently lives on 3rd floor apt with significant other Jeffery, has an elevator, in [facility]. Information per collective, [facility], ppt, daughter PPt with 4 hospitalizations, 2 SNF stays and 1 fall in the last 6 months [facility] ED June 14, 2024 syncope, slurred speech, unsteady gait found to have left carotid artery occlusion causing hypotension want permissive htn, discharged June 15, 2024 to [facility] iron def anemia, +orthostatic hypotension, uti, and discharged from snf on jun 28, 2024 to [facility] 05/16/2024 fall, weakness, copd exacerbation, acute resp failure with hypoxia, haydee discharged to [facility] May 23, 2024 and discharged from [facility] on June 11, 2024 to [facility] 04/29/2024 ED general weakness, n/v admitted on [...] EEG done, Pt had incidental findings at [facility] of enlarged thyroid and L breast finding - outpt f/u recommended. Pt was d/c to rehab. discharged May 03, 2024 to [facility] ED 03/30/2024 fall, nasal bone fx discharged home same dayComplaints/concerns: Wondering about dentures-only wears top and 30 years old and cracker will refer to dental, cpap machine wondering about new one and change o2 machine following with eliseo, head tremor had for some time no signs of parkinsons does not want work upADLs/services: Transportation is family first but matthias back up. ERS approved, she currently has one through [facility] (ADT). She is approved for 1 hour [...] placed to 1st OM and lad stenting 03/22/2022enign lung nodulesUmbilical herniaHx of Benign cysts of [...] Coronary artery diseaseBrother (abdi, )Vaccines: up to mdhe0At:Mind: AxOx3, forgetful- blind versionMeds: Multiple meds working [...] and +s2Abd soft, non tender, non distended, +hce4Emii intact LE mild edema non pitting, +cms, warm feet, +pp, 10/10 microfilamentCalm and cooperative Instructions Date Instruction Additional Infor nikki hx of htn, dhf and c kd stage 3aRecent hospitalization at [facility], jesus, pna, copd exacerbation treated with steroid and antibiotics and discharged a few weeks back to [facility] on chronic increased o2 and one more day of steroid. verbal for labs cbc, cmp and probnp and they never did them and when we called on monday we placed again said they couldn't do probnp. PPt saw cards on 09/24 and change in ekg had stat labs done at [facility] and found to have elevated bun, baseline cr and elevated probnp 4600 and wbc, recent steroids inpt. INfo coming from daughter she talked to farm equipment engine mechanic. Labs at [facility] resulted on elevated wbc 16.8, cr 1.11 and bun 22 roughly baseline. Cards wants to go up on lasix 40 mg daily and metoprolol 100 mg bid with echo same day or next day and follow up labs at [facility] in 1 week. Will also do cbc, cmp and bnp labs on monday. She had echo on and mon ppt daughter got a call from farm equipment engine mechanic that cardiac perfusion was low normal and want to start jardiance 10 mg daily which I gave the order today and reasonabe as has dm. Ppt looked good at snf at baseline breathing and repeat labs showed jesus with cr 1.2 held jardaince, losartan and lasix. Important to note labs drawn before starting jardiance but did h ave a few days of it by the time labs came back. Discharged today no chest pain or sob. at baseline o2 needs 2 l at rest. Feels at her baseline. Lungs clear appears euvolemic. planmetoprolol 100 mg bid per cardslasix 40 mg daily per cards held due to akirecently started jardiance 10 mg daily per cards held due to akino other changes to medscontinue to follow labs cbc, cmp and probnp today if jesus resolved restart meds encouraged oral intake and hydrationcontinue to follow with cards follow up oct to get cards note and echogoal bp lesss than 130/80goal alc less than 7.5%goal ldl less than 70 Related to Hypertensive heart and kidney disease with chronic diastolic congestive heart failure and stage 3 chronic kidney disease, unspecified whether stage 3a or 3b CKD hx of htn, dhf and c kd stage 3aRecent hospitalization at [facility] [place], jesus, pna, copd exacerbation treated with steroid and antibiotics and discharged a few weeks back to [facility] on chronic increased o2 and one more day of steroid. verbal for labs cbc, cmp and probnp and they never did them and when we called on monday we placed again said they couldn't do probnp. PPt saw cards on 09/24 and change in ekg had stat labs done at [facility] and found to have elevated bun, baseline cr and elevated probnp 4600 and wbc, recent steroids inpt. INfo coming from daughter she talked to farm equipment engine mechanic. Labs at [facility] resulted on elevated wbc 16.8, cr 1.11 and bun 22 roughly baseline. Cards wants to go up on lasix 40 mg daily and metoprolol 100 mg bid with echo same day or next day and follow up labs at [facility] in 1 week. Will also do cbc, cmp and bnp labs on monday. She had echo on and mon ppt daughter got a call from farm equipment engine mechanic that cardiac perfusion was low normal and want to start jardiance 10 mg daily which I gave the order today and reasonabe as has dm. Ppt looked good at snf at baseline breathing and repeat labs showed jesus with cr 1.2 held jardaince, losartan and lasix. Important to note labs drawn before starting jardiance but did h ave a few days of it by the time labs came back. Discharged today no chest pain or sob. at baseline o2 needs 2 l at rest. Feels at her baseline. Lungs clear appears euvolemic. planmetoprolol 100 mg bid per cardslasix 40 mg daily per cards held due to akirecently started jardiance 10 mg daily per cards held due to akino other changes to medscontinue to follow labs cbc, cmp and probnp today if jesus resolved restart meds encouraged oral intake and hydrationcontinue to follow with cards follow up oct to get cards note and echo Related to Chronic kidney disease, stage 3a [...] one diastolic dysfunction elevated filling pressures-Echo 03/2024 [facility] left ventricular systolic function is normal. Visually estivated EF 55-60% no obvious valvular pathology seen evidence of grade 1 mild diastolic dysfunction and no regional wall motion abnormalities -Continue Lasix 20mg daily, ARB, Saw cards on mon did stat labs as abnormal ekg revealed elevated probnp 4600, bun and wbc, recent steroid use inpt, and normal cr for ppt. They increased lasix to 40 mg daily and metoprolol to 100 mg bid due to elevated hr. They wanted echo was done on and revealed low normal cardiac perfusion awaiting on formal read wanted to start jardiance 10 mg daily which was reasonable aden with dm. All orders were verbally placed at snf. Follow up labs revealed jesus cr 1.2, wbc still up but trending down, bun 21 and they did not do probnp or bnp. Currently appears euvolemic, no worsening sob at baseline o2 needs. Denies chest pain.check probnp, cmp, cbc and seeing if jesus resolved it so can restart jardiance lasix and losartan depending on what her numbers are might need to go down on lasix. Will send labs to cards follow up with them on nov 07. Need to get their note and echo Related to Chronic diastolic heart failure -Longstanding histor y of restless legs which continues in SNF to bilateral lower extremities as they had ppt on reduced ropinerol and another provider started gabapentin as had nerve pain. -Vit D, B12 now at goal.-Increase ropinirole to 1 mg at bedtime and stop gabapentin. Currently restless legs controlled. Related to Restless leg syndrome at Baseline is 2L at rest and 3L with exertion. goal 88-94 Related to Oxygen dependent About two weeks ago inpt hospitalization for copd exacerbation, jesus, uti and pna. given antibiotics and steroids and losartan and lasix was held and discharged wot snf with baseline kidney numbers cr 1.02 and gfr 56 ckd stage 3a and restarted these meds. Saw cards breathing worse wbc up, cr baseline but bun was up and bnp was up and increased lasix to 40 mg daily. Later had echo showed low normal perfusion deficit and started jardiance. Repeat labs showed cr 1.2 up with jesus which labs were taken before starting jardiance. snf would not do probnp or bnp. Ppt breathing was great felt at baseline no sign of fliud overload so held losartan, lasix and jardiance. Today again feels breathing at baselilne, euvolemic, lungs clear no worsening edema will check cmp and probnp and if jesus resolved restart meds. encouraged oral hydration. Related to Acute kidney injury superimposed on CKD PPt reports has had T2DM for many years complicated by ckd stage 3a, Cr 1.4 gfr 55 in february 2025. Ppt is on lasix and recently jardiance for chf and losartan which is for bp with kidney protection. A recent bout of jesus inpt these meds were restarted discharged cr 1.02 then at snf again jesus stopped these meds will see what cmp and probnp are today to restart. plangoal alc less than 7.5%discussed microvascular and macrovascular complications of uncontrolled dm and importance of compliance with meds, diet and exercise. Follow with RDexercise as tolcmparb, lasix and new jardiance on hold for jesus will check cmp today to restart followed by cardsno need to see podiatry feet look good will let us know if issues we can help with nail cutincrease lantus to 34 units daily as sugars are up and going home and continue on metforminstay hydrated and avoid nephrotoxins Related to Type 2 diabetes mellitus with diabetic chronic kidney disease, unspecified CKD stage, unspecified whether technician terminal and repeater insulin use Longstanding t2dm wi th complications but known to be well controlled with last alc 6.4% in february 2025 and more recent inpt. Prior to readmit for copd exacerbatoin, jesus, uti and pna sugars were going up lantus increased to 40 units daily. She then was discharged and sugars were lower and lantus was reduced to 24 units daily likely due to poor po intake. She was on steroids inpt that have been stopped. She is also on metformin 500 mg BID. Recently at snf sugars were still in the 200s likely secondary to recent stress state and reduction of lantus. Cards wanted to start jardiance 10 mg daily which is reasonable for cardiac benefit. This is help with post prandial sugars. Today ppt did not have meter reporting sugars in high 100s. She is going home today eating her own food and stress should come down. Will go back to her lantus 34 units continue metformin and jardiance. 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 No longer on steroids or antibiotics O2 dependentCoexisting HAYDEE on CPAPCurrent regimen is Advair, Spiriva, Duoneb BID, and PRN Albuterol No evidence of exacerbation at present, no changes. denies sob and chest pain feels breathing is baseline on baseline 2 l of o2 at rest and 3 lpm with exertion. Follow up with Pulmonology dec 8Discussed importance of consistency in use of inhalers Will continue to monitor Related to Centrilobular emphysema Patient sustained a fall on 07/21 with right trimalleolar ankle fracture now s/p surgical repairCurrently in right cam book follow up with ortho on oct 23 currently wbat. I gave script for our OT to get a ankle brace when at night if she has to get up fast to go to br she also is getting a commode and daughter is staying with her for a few nights. No longer requiring oxycodone and using tylenol with good affect. Denies pain currently right now. PPt was having spasms and no longer not using Tizanidine will stop thisSugical incision is healed some scabs and redness from rubbing on book needs to use a dsd and cover with sock and when in bed remove boot to let the area breathPT/OT Will continue to monitor Related to Closed trimalleolar fracture of right ankle with routine healing, subsequent encounter -Hx of major depress ion since her [...] Her family is supportive. -More recently mood was and continues to be down with two hospitalizations back to back starting with a fall and right lower ext fx and difficulty breathing as was not taking her inhalers went to a snf. They did not feel that snf was takign good care of her transferred to another snf then went back to the hospital for copd exacerbation, uti, jesus, pna. Depressioned continued to worsen when felt like she had road blocks to getting out of the snf and was worried she was never going to get out of there. Didn't like the food and felt staff didn't listen. Currently per daughter and ppt she allyn if you look at her the wrong way or say the wrong thing. She is sleeping and eating. Denies SI. I had gone up on her fluoxetine to 30 mg daily within the last week. She is now discharged and going home which is sure to improve mood as she is on the med. She is excited about this. Will hold off on further med changes. -Will consider increase in medication if this continues to be a concern. Related to Mild episode of recurrent major depressive disorder Patient sustained a fall on 07/21 with right trimalleolar ankle fracture now s/p surgical repairPain reasonably managed at present though increased sensitivity to her toes of right foot at night especially since her injury Using oxycodone PRN with good effect Also having spasms at times (mostly at night), now on TizanidinePT/OT F/U with Ortho as scheduled saw inpt recently now weight bearing as chelsea and per PT walked 10 feet and getting up pivoting to chair contact guard. Will continue to monitor Related to Closed trimalleolar fracture of right ankle with routine healing, subsequent encounter Patient with longsta nding history of COPD (confirmed with CT chest showing mild centrilobular emphysema), 50 pack year former smoker (quit after CVA)recent readmit for copd exacerbation requiring steroids and antibotics in setting of valentin, uti and jesus. No longer on steroids or antibiotics O2 dependentCoexisting HAYDEE on CPAPCurrent regimen is Advair, Spiriva, Duoneb BID, and PRN Albuterol No evidence of exacerbation at present, no changes. denies sob and chest painorders for wean o2 for sat 88-94 baseline 2 l at rest and 3 with exertion on 4l sat 98%. ppt looks more herself. Follow up with Pulmonology as scheduleWill continue to monitor Related to Chronic obstructive pulmonary disease, unspecified COPD type -Remains on up to 4L O2. Baseline is 2L at rest and 3L with exertion. HOwever they are weaning as 98% on 4L goal 88-94% wean o2 and order placed Related to Oxygen dependent -Longstanding CKD ty pically in the stage 3A range. -Last labs at [facility] 08/2025 with eGFR ranging 52-65 and creatinine 0.9-1.08. -recently readmitted for copd exacerbation, jesus, uti, pna but dong well nowrecently at snf 1.11 and gfr 50s and bun 22 roughly baseline. Saw cards want to go up on lasix to 40 mg daily due to elevated probnp and bun with baseline cr. After echo starting jardiance that has cardiac and renal protective properties aden in dm-Continue losartan.-Avoid nephrotoxins when possible, encourage adequate hydration, BP management, glucose control, periodic labs.start jardiance 10 mg daily per cardscontinue lasix 40 mg cmp monday Related to Stage 3a chronic kidney disease [place] [facility] [place], jesus, pna, copd exacerbation treated with steroid and antibiotics and discharged last monday back to [facility] on chronic o2 and one more day of steroid. verbal for labs cbc, cmp and probnp and they never did them and when we called on monday we placed again said they couldn't do probnp. PPt saw cards yesterday on 09/24 and change in ekg had stat labs done at [facility] and found to have elevated bun, baseline cr and elevated probnp 4600 and wbc, recent steroids inpt. INfo coming from daughter she talked to farm equipment engine mechanic. Labs at [facility] resulted on elevated wbc 16.8, cr 1.11 and bun 22 roughly baseline. Cards wants to go up on lasix 40 mg daily and metoprolol 100 mg bid with echo same day or next day and follow up labs at [facility] in 1 week. Will also do cbc, cmp and bnp labs on monday. She had echo on and mon ppt daughter got a call from farm equipment engine mechanic that cardiac perfusion was low normal and want to start jardiance 10 mg daily which I gave the order today and reasonabe as has dm. Today appears euvolemic and herself. Denies chest pain and sob and dizziness. planmetoprolol 100 mg bid per cardslasix 40 mg daily per cardsstart jardiance 10 mg daily per cardsno other changes to medscontinue to follow labs cbc, cmp and probnp on mondaycontinue to follow with cardslooking to get cards note and echo Related to Hypertensive heart and kidney disease with chronic diastolic congestive heart failure and stage 3 chronic kidney disease, unspecified whether stage 3a or 3b CKD -Longstanding histor y of chronic diastolic HF, typically well compensated however has had increased WOB recently with higher O2 needs in SNF. Elevated BNP per pulmonology. Seen in ER where she was started on Lasix 20mg daily. -Echo 01/09/2023 left ventricle systolic function normal calculated ef 59% by biplane method evidence suggests evidence of grade one diastolic dysfunction elevated filling pressures-Echo 03/2024 [facility] left ventricular systolic function is normal. Visually estivated EF 55-60% no obvious valvular pathology seen evidence of grade 1 mild diastolic dysfunction and no regional wall motion abnormalities -Continue Lasix 20mg daily, ARB, Saw cards on mon did stat labs as abnormal ekg revealed elevated probnp 4600, bun and wbc, recent steroid use inpt, and normal cr for ppt. They increased lasix to 40 mg daily and metoprolol to 100 mg bid. They wanted echo was done on and revealed low normal cardiac perfusion awaiting on formal read wanted to start jardiance 10 mg daily which is reasonable aden with dm. All orders were verbally placed at snf. Follow up labs monday probnp, cbc, cmp. Currently appears euvolemic, no worsening sob and weaning down o2. Denies chest pain. Related to Chronic diastolic heart failure -Lantus 24 units. Re cently added temporary lispro scale 2 units at 150 increase by 2 units per 50 Related to correction (current) use of insulin Longstanding t2dm wi th complications but known to be well controlled with last alc 6.4% in february 2025 and more recent inpt. Prior to readmit for copd exacerbatoin, jesus, uti and pna sugars were going up lantus increased to 40 units daily and lispro 2/150 increase by 2/50 was added. She then was discharged and sugars were lower and lantus was reduced to 24 units daily likely due to poor po intake. She was on steroids inpt that have been stopped. She is also on metformin 500 mg BID. Currently sugars are still in the 200s likely secondary to recent stress state and reduction of lantus. Cards wants to start jardiance 10 mg daily which is reasonable for cardiac benefit. This is help with post prandial sugars. Will hold off on adjusting insulin until we see how she does on this drug. Related to Type 2 diabetes mellitus with hyperglycemia, unspecified whether technician terminal and repeater insulin use metormin 500 mg BID Related to L monica term (current) use of oral hypoglycemic drugs Patient sustained a fall on 07/21 with right trimalleolar ankle fracture now s/p surgical repairPain reasonably managed at present though increased sensitivity to her toes of right foot at night especially since her injury Using oxycodone PRN with good effect Also having spasms at times (mostly at night), now on TizanidinePT/OT F/U with Ortho as scheduledWill continue to monitor Related to Closed trimalleolar fracture of right ankle with routine healing, subsequent encounter Patient with longsta nding history of COPD (confirmed with CT chest showing mild centrilobular emphysema), 50 pack year former smoker (quit after CVA)O2 dependentCoexisting HAYDEE on CPAPCurrent regimen is Advair, Spiriva, Duoneb BID, and PRN Albuterol No evidence of exacerbation at present, no changes. Follow up with Pulmonology as scheduleWill continue to monitor Related to Chronic obstructive pulmonary disease, unspecified COPD type Recent hospitalizati [place] [facility] [place], jesus, pna, copd exacerbation treated with steroid and antibiotics and discharged on monday back to [facility] on chronic o2 and one more day of steroid. Course completed verbal for labs cbc, cmp and probnp and they never did them and when we called on monday we placed again said they couldn't do probnp. PPt saw cards yesterday on 09/24 and change in ekg had stat labs done and found to have elevated bun, baseline cr and elevated bnp and wbc. Labs at [facility] resulted this am elevated wbc 16.8, cr 1.11 and bun 22 roughly baseline. Cards wants to go up on lasix 40 mg daily and metoprolol 100 mg bid with echo today or tomorrow and follow up labs at [facility] in 1 week. Will also do cbc, cmp and bnp labs on monday calling over to she is doing. Related to Chronic diastolic (congestive) heart failure Recent [place] [facility] [place], jesus, pna, copd exacerbation treated with steroid and antibiotics and discharged on monday back to [facility] on chronic o2 and one more day of steroid. Course completed verbal for labs cbc, cmp and probnp and they never did them and when we called on monday we placed again said they couldn't do probnp. PPt saw cards yesterday on 09/24 and change in ekg had stat labs done and found to have elevated bun, baseline cr and elevated bnp and wbc. Labs at [facility] resulted this am elevated wbc 16.8, cr 1.11 and bun 22 roughly baseline. Erica wants to go up on lasix 40 mg daily and metoprolol 100 mg bid with echo today or tomorrow and follow up labs at [facility] in 1 week. Will also do cbc, cmp and bnp labs on monday calling over to she is doing. Related to Hypertensive heart and kidney disease with chronic diastolic congestive heart failure and stage 3 chronic kidney disease, unspecified whether stage 3a or 3b CKD Recent [place] [facility] [place], jesus, pna, copd exacerbation treated with steroid and antibiotics and discharged on monday back to [facility] on chronic o2 and one more day of steroid. Course completed verbal for labs cbc, cmp and probnp and they never did them and when we called on monday we placed again said they couldn't do probnp. PPt saw cards yesterday on 09/24 and change in ekg had stat labs done and found to have elevated bun, baseline cr and elevated bnp and wbc. Labs at [facility] resulted this am elevated wbc 16.8, cr 1.11 and bun 22 roughly baseline. Erica wants to go up on lasix 40 mg daily and metoprolol 100 mg bid with echo today or tomorrow and follow up labs at [facility] in 1 week. Will also do cbc, cmp and bnp labs on monday calling over to she is doing. Related to Chronic kidney disease, stage 3 unspecified -Former smoker with [id number]. quit after CVA (? about 2023). Related to Former smoker -Remains on up to 4L O2. Baseline is 2L at rest and 3L with exertion. Related to Oxygen dependent -Bedside ultrasound in the ER 08/26/25 showed [...] hard to tell for me. -Brain mri [facility] [...] to followed with dr. holliday and now [facility] need notes. Denies retinopathy but in [...] COPD on o2, CAD S/P STENTS, NSTEMI, [id number] in rehab at present, getting therapy, diet managed by facility. Will discuss further once back home as this is not the priority at present. Related to Severe obesity (BMI 35.0-39.9) with comorbidity -BMI 35.3 Related to BMI 3 5.0-35.9,adult Mri [facility] 05/01/2024 wi enlarged multinodular right thyroid gland. -[place]/20[place] [facility] thyroid ultrasoundIMPRESSION: Right mid gland 1.9 cm TI-RADS Category 3 nodule. Follow-up ultrasound in 1 year is recommended per guidelines below.-TSH 02/2025 1.06. Denies issues with swallowing.-Continue periodic labs, repeat thyroid ultrasound. Related to Thyroid nodule -Longstanding T2DM w ith multiple complications.-Review of [facility] and [facility] BG logs shows persistent numbers [...] management as discussed, periodic labs. Related to correction (current) use of insulin -Continue Metformin. 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.] in march 2022-Echo 02/23/2022 card report from [facility] Dr. Ngo TTE echoNormal LV systolic function [...] today well controlled. Related to Atherosclerosis of [place] coronary artery of [place] heart without angina pectoris -[facility]. -Last labs at [facility] 08/2025 with eGFR ranging 52-65 and creatinine [...] one diastolic dysfunction elevated filling pressures-Echo 03/2024 [facility] left ventricular systolic function is normal. Visually estivated EF 55-60% no obvious valvular pathology seen evidence of grade 1 mild diastolic dysfunction and no regional wall motion abnormalities -Continue Lasix 20mg daily, ARB, BB. Related to Chronic diastolic (congestive) heart failure -Longstanding HTN, C KD, diastolic HF. Coexisting significant CAD s/p stents, h/o TIAs. -See CKD, HF.-BP goal <130-140/90 which she is meeting most times. -Continue metoprolol, losartan, Lasix. Related to Hypertensive heart and kidney disease with chronic diastolic congestive heart failure and stage 3a chronic kidney disease -Hx of major depress ion since her [...] -Longstanding T2DM w ith multiple complications.-Review of [facility] and [facility] BG logs shows persistent numbers in the 200s-300s. -Increase Lantus to 34 units daily. Related to Type 2 diabetes mellitus with hyperglycemia, with long-term current use of insulin -Longstanding T2DM w ith multiple complications.-Review of [facility] and [facility] BG logs shows persistent numbers in the 200s-300s. -Increase Lantus to 34 units daily. 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 She was at [facility] from 07/24 until 08/06 and there were some concerns with her care there so she was moved to [place] to be followed by our PACE providers. [...] delayed healing, subsequent encounter -Former smoker with [id number]. quit after CVA (? about 2023). Related [...] exertion. She was not receiving Spiriva at [facility] recently. Wheezing on exam today. Home regimen restarted. If she worsened, or has increased sputum/SOB, will treat for exacerbation. Related to Centrilobular emphysema -Sustained a fall on 07/21 with right trimalleolar ankle fracture now s/p surgical repair. She was at [facility] from 07/24 until 08/06 and there were some concerns with her care there so she was moved to [place] to be followed by our PACE providers. [...] 50 at goal Related to Atherosclerosis of [place] artery of both lower extremities with intermittent claudication continue to follow w cresencio farm equipment engine mechanic-cad s/p stents, stemi and accredited legal secretary copd on o2 with exacerbationdoes not want buggy runner, mammography, dexa or colonoscopyokay with lung screening [...] of OAB [facility] follows with [...] bleeding. Does not want to follow with buggy runner. Ruben pain. Does not remember why she had this done. Seen on ct abd and pelvis imaging Related to History of hysterectomy abd ct [facility] [...] pain Related to Hepatic steatosis [facility] had n/v found to have gastritis globus [...] to followed with dr. holliday and now [facility] need notes. Denies retinopathy but in [...] to followed with dr. holliday and now [facility] need notes. 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 She does not have clinical nursing director. Hx of jesus in past with gi [...] microalbumin, estrella arb and statin followed by [facility] need to see podiatry feet look good will let us know if issues we can help with nail cutreduce lantus to 32 units daily continue on metforminstay hydrated and avoid nephrotoxins Related to Type 2 diabetes mellitus with diabetic chronic kidney disease, unspecified CKD stage, unspecified whether intermediate insulin use metormin 500 mg BID Related to L monica term (current) use of oral hypoglycemic drugs Lipid panel 08/2023 85/166/33/19 goal ldl per cards less than 50 due to multiple tias, cva, cad s/p arcadio on zetia 10 mg daily and high intensity statin atorvastatin 80 mg daily. [facility] labs show ldl 19 too low reduced atorvastatin to 40 mg daily at and in oct 2024 ldl was 29 goal less than 70 but greater than 40 today.Will recheck lipid panel today might have to go down again Related to Hypercholesteremia [facility] dec 2022 syncope unclear etiology, likely deconditioning from recent hospitalization, oral orthostatic bp, severe left subclavian artery stenosis evaluated by [facility] surgery, has good brachial pulses and equal bilateral bps not contributing to symptoms, cta chest showed no pe, ct head showed no intracranial hemorrhageconsult [facility] 01/19/2023 incidental finding left subclavian [...] in march 2022Echo 02/23/2022 card report from [facility] dr. ngo TTE echoNormal LV systolic function with mild LVH with impaired relaxation filling pattern and elevated filling pressure. Normal cardiac valvular doppler, normal RV systolic pressure, no pericardial effusion. EF 55-60%, left atrium mildly dilated, Nuclear stress test [facility]/23[facility]2022 [facility] ischemia/infarct pattern [...] well controlled today Related to Atherosclerosis of [place] coronary artery of [place] heart without angina pectoris Today bp was [...] dysfunction and no regional wall motion abnormalities [facility] hosp chronic diastolic chf hyperdynamic ejection fraction [...] dysfunction and no regional wall motion abnormalities [facility] hosp chronic diastolic chf hyperdynamic ejection fraction [...] to 40 units at hs 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 Long hx of [...] mellitus with hypoglycemia without coma, unspecified whether technician terminal and repeater insulin use ppt with hx of COPD, [...] on CPAP continue to follow w cresencio farm equipment engine mechanic-cad s/p stents, stemi and accredited legal secretary copd on o2 with exacerbationdoes not want buggy runner, mammography, dexa or colonoscopyokay with lung screening smoker many years has lung noduleswants to change his eye doctor to dr solis and follow with [place] [facility] need dental exam need new denturesdnr and dnippt own personchange [employer] Related to Healthcare maintenance Ct chest [...] bleeding. Does not want to follow with buggy runner. Ruben vilchis. Does not remember why she had this done. Seen on ct abd and pelvis imaging Related to History of hysterectomy Hx of OAB trialed [facility] saw [facility] which she no longer follows with [...] dysfunction and no regional wall motion abnormalities [facility] chronic diastolic chf hyperdynamic ejection fraction [...] and no regional wall motion abnormalities [facility] chronic diastolic chf hyperdynamic ejection fraction [...] osis, [facility] 4discussed weight lossdenies abd pain and no issues with stoolstaking minimal tylenol for pain Related to Hepatic steatosis abd ct 04/30/2024 w[facility] per records diverticulosis without diverticulitis. Discussed high fiber diet and softer stools was on colase change to senna. Denies abd pain or issues with stools. Related to Diverticulosis of colon hospitalization at [facility] had n/v found to have gastritis globus [...] vitamins followed with dr. holliday and [facility] need notes. Denies retinopathy but in [...] CKD, HAYDEE, COPD, CAD S/P STENTS, NSTEMI, T2OTMgqocspgutguv weight lossdiet and exercise follow with RD Related to Severe obesity (BMI 35.0-39.9) with comorbidity bmi 39.1 Related to Body mass index [BMI] 39.0-39.9, adult mri [facility] 05/01/2024enl arged multinodular right thyroid gland08/09/2024 [facility] thyroid ultrasoundIMPRESSION: Right mid gland 1.9 cm TI-RADS Category 3 nodule. Follow-up ultrasound in 1 year is recommended per guidelines below.tsh Tsh 1.43 in 09/2020check tsh, repeat thyroid ultrasound 07/2025denies issues swallowing Related to Thyroid nodule lantus 50 units daily Related to correction (current) use of insulin CKD stage 3a-b [...] 500 mg BID. She does not have clinical nursing director. Hx of jesus in past with gi [...] kidney disease, unspecified CKD stage, unspecified whether technician terminal and repeater insulin use Lipid panel 08/2023 85/166/33/19 goal [...] severe left subclavian artery stenosis evaluated by [facility] surgery, has good brachial pulses and equal bilateral bps not contributing to symptoms, cta chest showed no pe, ct head showed no intracranial hemorrhageconsult [facility] 01/19/2023 incidental finding left subclavian [...] in march 2022Echo 02/23/2022 card report from [facility] dr. ngo TTE echoNormal LV [...] 60s no orthostasis Related to Atherosclerosis of [place] coronary artery of [place] heart without angina pectoris Hx of Major [...] in partial remission Assessments Type Assessment Date assessment Encounter for rehabilitation steph wang Goals Health Concern Goal Type Priority Status Date Dayna is at risk for further functional decline and falls due to a recent fall with injury. Dayna will not sustain any falls with serious injury in the next 6 months. Patient Goal New Dayna is reporting an increase in difficulty [...] related to overactive bladder, Hx CVA, Hx [place], resting tremor, osteoarthritis, macular degeneration, diabetic retinopathy, [...]
--- NOTE | 2025-10-27 14:54 | MHC.OFFVIS ---
Vital Signs 10/27/25 14:55 Height 4 ft 11 in BMI Reason not done Patient refused/unable BP 130/58 L Blood Pressure Location Lt brachial Position Sitting Pulse 62 Pulse Source Pulse Oximeter Pulse Oximetry (%) 98 Oxygen Delivery Method Nasal Cannula Oxygen Flow Rate 2 Intake Visit Reasons: COPD Allergies adhesive tape Allergy (Mild, Verified 10/27/25 14:58) Unknown bee pollen (bee stings) Allergy (Mild, Verified 10/27/25 14:58) Swelling oxycodone (OXYCODONE) Allergy (Mild, Verified 10/27/25 14:58) ITCHING, itchy prednisone Allergy (Verified 10/27/25 14:58) Unknown hydromorphone (From DILAUDID) Adverse Reaction (Mild, Verified 10/27/25 14:58) ITCHING HPI HPI COPD: Details: Lilli is a pleasant 79 year old female, former 50 pack year smoker, quit 15 years ago with underlying DMII, COPD, HFpEF, HAYDEE on CPAP ([facility]), PAD, TIA on plavix/ASA, CAD, and h/o acute hypoxic respiratory failure secondary to pulmonary edema as well as COPD exacerbation 04/2024. Since her last visit, the patient was sent to [facility] ER subsequently admitted 09/15-09/19 due to acute on chronic hypoxic respiratory failure likely due to acute COPD exacerbation and/or UTI with GRISEL on CKD with IV antibiotics.? Patient was started on IV antibiotic with ceftriaxone and azithromycin?for possible?pneumonia and UTI. ?Patient was also started on prednisone for COPD exacerbation.? Patient was weaned down from 4 L to 2 L as per oxygenation requirement and?pulm rehab was also consulted.? Urine culture grew Enterococcus. ?Penicillin and?ceftriaxone was switched to Augmentin. Prior to this admission she was evaluated in the ED on 08/26 due to elevated pro BNP which was moderately elevated at 5600 and discharged on Lasix. Her cardiac management included an increase in metoprolol and the addition of Jardiance. Lasix was initiated at 40 mg but subsequently reduced to 20 mg due to renal intolerance. She has a persistently elevated pro-BNP that is being monitored by cardiology and has ongoing, fluctuating leukocytosis, with a white blood cell count reaching 18,000 in September, which is a concern for her primary care team. From a respiratory standpoint, her supplemental oxygen requirement has decreased from 3 L at rest and 4 L on exertion to 2 L at rest and 3 L on exertion. She reports an intermittent cough productive of clear, white sputum, which occurs after using her nebulizer and helps relieve the cough, otherwise feels respiratory symptoms are relatively controlled. The patient's respiratory care regimen includes Advair, Spiriva, nebulizer treatments, and an albuterol rescue inhaler, though she rarely uses the latter. She religiously uses her CPAP machine at night with a 2 L oxygen bleed-in, which is managed by [facility]. She is now compliant with using a flutter valve for airway clearance, although there is a history of non-adherence with her respiratory care. Other pertinent history includes a recent three-point ankle fracture, with the cast recently removed and home physical therapy set to begin. [facility] Medical History Stenosis of left subclavian artery Multiple falls Macular degeneration Overactive bladder Chest tightness Abnormal nuclear stress test Cataract HAYDEE on CPAP Mild anemia Hypercholesterolemia Resting tremor Osteoarthritis Unsteady gait Vertigo Sleep apnea Diabetic retinopathy Hiatal hernia Depression COPD (chronic obstructive pulmonary disease) CKD (chronic kidney disease) Orthostatic hypotension NSTEMI (non-ST elevated myocardial infarction) Syncope HLD (hyperlipidemia) CAD (coronary artery disease) High cholesterol Diabetes Heart attack Stroke Surgical History Status post cardiac catheterization History of cataract extraction Hx of colonoscopy Hx of vaginal hysterectomy Stented coronary artery History of cardiac catheterization Family History Father CVD (cardiovascular disease) Mother Brain aneurysm Social History Household Members: Significant Other Housing: Apartment Are you a primary point of care technician to a significant other at home: No Do you presently have visiting nurse or other home services: Yes Alcohol intake: never Patient Tobacco Use Status: Former Tobacco user Tobacco use type: Cigarette Years Smoked: 50 e-Cigarette/Vaping Use: Former Use Second Hand Smoke Exposure: No Advance Directives Date on File: 01/18/23 service: No Current occupational status: retired Review of Systems Const Denies chills, Denies excessive sweating, Denies fever(s), Denies headache(s) and Denies night sweats Eyes Denies dry eyes, Denies irritation and Denies itchy eyes ENT Reports Normal hearing present, Denies headache(s), Denies nasal congestion, Denies nasal discharge, Denies post nasal drip and Denies sore throat Card Denies chest pain, Denies chest pain at rest, Denies chest pain with activity, Denies claudication, Reports dyspnea on exertion and Denies paroxysmal nocturnal dyspnea Resp Denies change in phlegm color, Denies chest congestion, Denies hemoptysis, Denies excessive phlegm production, Denies pain on inspiration, Denies pain with cough, Reports dyspnea on exertion and Denies stridor Musc Denies myalgias Neuro Reports Normal hearing present and Denies headache(s) Endo Denies excessive sweating Fahad/Lymph Denies lymphadenopathy Aller/Immun Denies itchy eyes and Denies seasonal rhinorrhea Physical Exam Vital Signs: Last Vital Signs Pulse 62 10/27/25 14:55 BP 130/58 L 10/27/25 14:55 Pulse Ox 98 10/27/25 14:55 Oxygen Delivery Method Nasal Cannula 10/27/25 14:55 Oxygen Flow Rate 2 10/27/25 14:55 Const Other: Wearing supplemental oxygen General: cooperative, comfortable, no acute distress, well developed and alert Nutritional Appearance: obese Orientation/consciousness: patient oriented x3 Limitations: ambulation with walker HEENT Head: Yes normal to inspection, Yes normocephalic and Yes atraumatic Ears: hearing grossly normal bilaterally and external ears normal Eyes General: appearance normal, both eyes and all related structures Eyelids: Yes eyelids normal Sclerae: sclerae normal EOM: EOMs intact bilaterally Neck Neck: Yes normal visual inspection and Yes no lymphadenopathy Lymphatic: no lymphadenopathy noted Chest Chest palpation & inspection: normal inspection of the chest Resp Effort & Inspection: normal respiratory effort, able to speak in complete sentences, no audible wheezes, no cough, no stridor, not tachypneic, no tripod positioning and no use of accessory muscles Auscultation: clear to auscultation bilaterally Cardio Jugular venous distension: no JVD Rate: regular rate Skin Other: warm, dry General skin exam: no rashes or lesions noted Neuro General: patient oriented x3 Cranial nerves: Yes Normal hearing present Cognition (Neuro): normal cognition Gait exam (Neuro): Assisted gait required Extrem Other: trace BLE edema Psych Appearance: grossly normal and well kempt Speech and movement: Normal speech and movement present and Clear speech present Affect: normal affect Attitude: cooperative Thought process: Normal thought process present Thought content: Normal thought content present Insight: Good insight present (Psych) Judgement: Good judgement present (Psych) Assessment & Plan Assessment & Plan (1) COPD (chronic obstructive pulmonary disease): Code(s): J44.9 - Chronic obstructive pulmonary disease, unspecified Category: Medical (2) Emphysema of lung: Code(s): J43.9 - Emphysema, unspecified Category: Medical (3) History of acute respiratory failure: Code(s): Z87.09 - Personal history of other diseases of the respiratory system Category: Medical (4) Pulmonary nodule: Code(s): R91.1 - Solitary pulmonary nodule Category: Medical Plan Reviewed the patient's recent complex hospitalization and her interval course, noting that she has been home for about a month without readmission. On examination today, lungs are clear to auscultation bilaterally, at prior visit patient with crackles bilaterally [address] up. Since patient has been compliant with respiratory medications and adhering to the prescribed oxygen therapy of 2 L/min at rest and 3 L/min with exertion, she reports good control of respiratory symptoms, advised to continue Advair, Spiriva and albuterol MDI prn. Will order an at-home overnight oximetry test to verify her oxygen saturation is adequate at night while using her CPAP with 2 L/min of oxygen. Strongly advised seeking emergency care for any significant change in breathing or oxygen needs. All questions were answered and patient is in agreement of plan. Will follow up in 3 months or sooner if needed. Orders: Orders Overnight Pulse Oximetry Today G47.34 - Idiopathic sleep related nonobstructive alveolar hypoventilation Coding Level of Care Code Est Pt Level 4 (03136) Diagnoses COPD (chronic obstructive pulmonary disease) J44.9 Emphysema of lung J43.9 History of acute respiratory failure Z87.09 Pulmonary nodule R91.1
[2025-10-27 14:55] VITALS: BP 130/58; PULSE 62; O2SAT 98
--- OUTSIDE RECORDS SUMMARY | 2025-10-27 23:59 | XMS_ITS | Encounter Summary ---
Author Organization [facility] [address] Address [address] [place] [address] Care Team Providers Care Bundle Cutter Name Role Phone Yong Dodson MD Primary Care Provider [phone] Encounter Details Date Type Department Care Team (Late st Contact Info) Description 08/03/2025 Lab Requisition [facility] - Main Lab [address] [place] [address] Yong Dodson MD [address] [facility] [address] [place], [address] Chronic obstructive pulmonary disease, unspecified (CMS/HCC [...] LAB CHEMISTRY METHOD 08/04/2025 12:39 PM EDT [facility] Potassium 4.2 3.5 - 5.5 mmol/L LAB CHEMISTRY METHOD 08/04/2025 12:[address] [facility] Chloride 103 96 - 110 mmol/L LAB CHEMISTRY METHOD 08/04/2025 12:[address] [facility] CO2 25 21 - 32 mmol/L LAB CHEMISTRY METHOD 08/04/2025 12:[address] [facility] Anion Gap 10 3 - 11 LAB CHEMISTRY METHOD 08/04/2025 12:[address] [facility] Glucose 181(H) 70 - 100 mg/dL LAB CHEMISTRY METHOD 08/04/2025 12:[address] [facility] BUN 22 5 - 25 mg/dL LAB CHEMISTRY METHOD 08/04/2025 12:[address] [facility] Creatinine 0.89 0.50 - 1.10 mg/dL LAB CHEMISTRY METHOD 08/04/2025 12:[address] [facility] eGFR 66 >=60 mL/min/1. 73m2 LAB CHEMISTRY METHOD 08/04/2025 12:[address] [facility] Comment:Calculation based on the Chronic Kidney Disease Epidemiology Collaboration (CKD-EPI) equation refit without adjustment for race. BUN/Creatinine Ratio 24.7 LAB CHEMISTRY METHOD 08/04/2025 12:[address] [facility] Calcium 9.5 8.5 - 10.5 mg/dL LAB CHEMISTRY METHOD 08/04/2025 12:[address] [facility] Blood Venous blood specimen / Unknown Venipuncture / Unknown 08/04/2025 6:15 AM EDT 08/04/2025 10:56 AM EDT us Yong Dodson MD LAB BLOOD ORDERABLES Final Resul t [facility] [address] [place] [address], [place] [phone] * (ABNORMAL) Complete blood count (08/04/2025 6:15 AM EDT) [facility] WBC 12.4(H) 4.8 - 10.8 K/mcL LAB HEMETOLOGY METHOD 08/04/2025 1:[address] [facility] RBC 3.60(L) 3.80 - 4.80 M/mcL LAB HEMETOLOGY METHOD [facility] Hemoglobin 10.6(L) 11.5 - 16.0 g/dL LAB HEMETOLOGY METHOD 08/04/2025 1:[address] [facility] Hematocrit 34.7(L) 35.0 - 47.0 % LAB HEMETOLOGY METHOD 08/04/2025 1:[address] [facility] MCV 97.5 79.0 - 98.0 FL LAB HEMETOLOGY METHOD [facility]2025 [facility] MCH 29.8 27.0 - 32.0 pcg LAB HEMETOLOGY METHOD 08/04/2025 1:[address] [facility] MCHC 30.5(L) 32.0 - 37.0 g/dL LAB HEMETOLOGY METHOD 08/04/2025 1:[address] [facility] RDW 14.6 11.0 - 15.0 % LAB HEMETOLOGY METHOD 08/04/2025 1:[address] [facility] Platelets 274 130 - 400 K/mcL LAB HEMETOLOGY METHOD 08/04/2025 1:[address] [facility] MPV 10.7 7.0 - 11.0 FL LAB HEMETOLOGY METHOD 08/04/2025 1:[address] [facility] NRBC 0.0 <1.0 % LAB HEMETOLOGY METHOD [facility]20[facility] NRBC Absolute 0.00 <0.10 K/mcL LAB HEMETOLOGY METHOD 08/04/2025 1:04 PM EDT [facility] Blood Venous blood specimen / Unknown Venipuncture / Unknown 08/04/2025 6:15 AM EDT 08/04/2025 10:56 AM EDT us Yong Dodson MD LAB BLOOD ORDERABLES Final Resul t [facility] [address] [place] [address], documented in this encounter Visit Diagnoses Diagnosis Chronic obstructive pulmonary disease, unspecified (CMS/HCC V24, CMS/HCC V28) documented in this encounter Care Teams Bundle Cutter Relationship Specialty Start Date End Date Yong Dodson MD [address] [place] [phone] PCP - General Family Medicine 07/25/25 documented as of this encounter
--- OUTSIDE RECORDS SUMMARY | 2025-10-27 23:59 | XMS_ITS | Encounter Summary ---
Author Organization [facility] Address [address] [place] [address] Care Team Providers Care Wire Coating Operator Metal Name Role Phone Yong Dodson MD Primary Care Provider [phone] Encounter Details Date Type Department Care Team (Late st Contact Info) Description 09/29/2025 Lab Requisition [facility] - Main Lab [address] [facility] [place] [address] Mohit Willis MD [address] [place] [address] Shortness of breath Social History Tobacco Use Types Packs/Day Years Used Date Smoking Tobacco: Never Assessed Comments Unknown Sex and Gender Information Value Date Recorded Sex Assigned at Not on file Legal Sex Female 9:52 PM EST Gender Identity Not on file Sexual Orientation Not on file documented as of this encounter Plan of Treatment Scheduled Orders Name Type Priority Associated Diagnoses Orde r Schedule B-type natriuretic peptide Lab Routine Shortness of breath Ordered: 09/29/2025 documented as of this encounter Visit Diagnoses Diagnosis Shortness of breath documented in this encounter Care Teams Wire Coating Operator Metal Relationship Specialty Start Date End Date Yong Dodson MD [address] [place] [address] [address] [place], [id number] PCP - General Family Medicine 07/25/25 documented as of this encounter
--- OUTSIDE RECORDS SUMMARY | 2025-10-27 23:59 | XMS_ITS | Clinical Summary ---
Author Organization [address] Address [address] [place] [phone] Phone Care Team Providers Care Electric Bath Attendant Name Role Phone Yong Dodson MD Primary Care Provider Encounters Date Type Department Care Team Description 09/29/2025 Lab Requisition [facility] [address] [place] [phone] Mohit Willis MD Urinary tract infection, site not specified; Elevated white blood cell count, unspecified; Heart failure, unspecified (CMS/[facility] V24, CMS/[facility] V28) 09/29/2025 Lab Requisition [facility] [address] [place] [phone] Mohit Willis MD Shortness of breath 09/24/2025 Lab Requisition [facility] [address] [place] [phone] Mohit Willis MD Heart failure, unspecified (CMS/HCC V24, CMS/HCC V28); Acute and chronic respiratory failure with hypoxia (CMS/HCC V24, CMS/HCC V28); Acute kidney failure, unspecified (CMS/HCC V24); Hypertensive heart and chronic kidney disease with heart failure and stage 1 through stage 4 chronic kidney disease, or unspecified chronic kidney disease (CMS/HCC V24, CMS/HCC V28); Stricture of artery (CMS/HCC V24); Shortness of breath 09/16/2025 Lab Requisition [facility] [address] [place] [phone] Mohit Willis MD Altered mental status, unspecified 09/15/2025 Lab Requisition [facility] [address] [place] [phone] Mohit Willis MD Chronic obstructive pulmonary disease, unspecified ([facility] V24, [facility] V28); Heart failure, unspecified ([facility] V24, [facility] V28) 08/18/2025 Lab Requisition [facility] [address] [place] [phone] Yong Dodson MD Unspecified infectious disease 08/08/2025 Lab Requisition [facility] [address] [place] [phone] Yong Dodson MD Chronic obstructive pulmonary disease, unspecified ([facility] V24, [facility] V28) 08/04/2025 Lab Requisition [facility] [address] [place] [phone] Yong Dodson MD Chronic kidney disease, stage 3a ([facility] V24, [facility] V28); Altered mental status, unspecified 08/03/2025 Lab Requisition [facility] [address] [place] [phone] Yong Dodson MD Chronic obstructive pulmonary disease, unspecified ([facility] V24, [facility] V28) 08/02/2025 Lab Requisition [facility] [address] [place] [phone] Yong Dodson MD Chronic kidney disease, stage 3a ([facility] V24, [facility] V28) 07/26/2025 Lab Requisition [facility] [address] [place] [phone] Yong Dodson MD Chronic obstructive pulmonary disease, unspecified ([facility] V24, [facility] V28) from Last 3 Months Social History [...] series) 2020 Depression Screening 11/20/2024 COVID-19 Vaccine ( season) 2025 09/29/2021, 01/19/2021, 12/28/2020 Influenza Vaccine [...] 09/05/2025 Diabetes: Annual GFR (Glomerular Filtration Rate) 09/29/2026 09/29/2025, 09/24/2025, 09/15/2025, Additional history exists Hypertension/CHF/CAD Annual BMP Blood Test 09/29/2026 09/29/2025, 09/24/2025, 09/15/2025, Additional history exists DTaP,Tdap,and Td Vaccines (4 [...] Associated Diagnosis Comments LAVENDER - EDTA Routine 09/29/2025 6:47 AM EST Urinary tract infection, site not specified Elevated white blood cell count, unspecified Heart failure, unspecified (CMS/HCC V24, CMS/HCC V28) COMPREHENSIVE METABOLIC PANEL Routine 09/29/2025 6:47 AM EST Urinary tract infection, site not specified Elevated white blood cell count, unspecified Heart failure, unspecified (CMS/HCC V24, CMS/HCC V28) COMPLETE BLOOD COUNT Routine 09/29/2025 6:47 AM EST Urinary tract infection, site not specified Elevated white blood cell count, unspecified Heart failure, unspecified (CMS/HCC V24, CMS/HCC V28) LAVENDER - EDTA Routine 09/24/2025 7:18 AM [...] Last 3 Months Results * Lavender tube (09/29/2025 6:47 AM EST) Only the most recent of3 resultswithin the time period is included. [facility] Extra Tube Hold for add-ons. 09/29/2025 12:01 PM EST [facility] Comment:Auto resulted. Blood Venous blood specimen / Unknown Venipuncture / Unknown 09/29/2025 6:47 AM EST 09/29/2025 10:42 AM EST us Mohit Willis MD LAB BLOOD ORDERABLES Final Resul t [facility] [address] [place] [address], * (ABNORMAL) Complete blood count (09/29/2025 6:47 AM EST) Only the most recent of6 resultswithin the time period is included. [facility] WBC 12.3(H) 4.8 - 10.8 K/mcL LAB HEMETOLOGY METHOD 09/29/2025 12:20 PM EST [facility] RBC 3.50(L) 3.80 - 4.80 M/mcL LAB HEMETOLOGY METHOD 09/29/2025 12:20 PM [facility] Hemoglobin 10.2(L) 11.5 - 16.0 g/dL LAB HEMETOLOGY METHOD 09/29/2025 12:20 PM [facility] Hematocrit 33.3(L) 35.0 - 47.0 % LAB HEMETOLOGY METHOD 09/29/2025 12:20 PM [facility] MCV 96.5 79.0 - 98.0 FL LAB HEMETOLOGY METHOD 09/29/2025 12:20 PM [facility] MCH 29.6 27.0 - 32.0 pcg LAB HEMETOLOGY METHOD 09/29/2025 12:20 PM [facility] MCHC 30.6(L) 32.0 - 37.0 g/dL LAB HEMETOLOGY METHOD 09/29/2025 12:20 PM [facility] RDW 15.0 11.0 - 15.0 % LAB HEMETOLOGY METHOD 09/29/2025 12:20 PM [facility] Platelets 202 130 - 400 K/mcL LAB HEMETOLOGY METHOD 09/29/2025 12:20 PM [facility] MPV 10.9 7.0 - 11.0 FL LAB HEMETOLOGY METHOD 09/29/2025 12:20 PM [facility] NRBC 0.0 <1.0 % LAB HEMETOLOGY METHOD 09/29/2025 12:20 PM [facility] NRBC Absolute 0.00 <0.10 K/mcL LAB HEMETOLOGY METHOD 09/29/2025 12:20 PM [facility] Blood Venous blood specimen / Unknown Venipuncture / Unknown 09/29/2025 6:47 AM EST 09/29/2025 10:42 AM EST Mohit Willis MD LAB BLOOD ORDERABLES Final Resul t [facility] [address] [place] [address], * (ABNORMAL) Comprehensive metabolic panel (09/29/2025 6:47 AM EST) Only the most recent of4 resultswithin the time period is included. Sodium 140 133 - 145 mmol/L LAB CHEMISTRY METHOD 09/29/2025 12:43 PM [facility] Potassium 4.3 3.5 - 5.5 mmol/L LAB CHEMISTRY METHOD 09/29/2025 12:43 PM [facility] Chloride 107 96 - 110 mmol/L LAB CHEMISTRY METHOD 09/29/2025 12:43 PM [facility] CO2 26 21 - 32 mmol/L LAB CHEMISTRY METHOD 09/29/2025 12:43 PM [facility] Anion Gap 7 3 - 11 LAB CHEMISTRY METHOD 09/29/2025 12:43 PM [facility] Glucose 245(H) 70 - 100 mg/dL LAB CHEMISTRY METHOD 09/29/2025 12:43 PM [facility] BUN 21 5 - 25 mg/dL LAB CHEMISTRY METHOD 09/29/2025 12:43 PM [facility] Creatinine 1.22(H) 0.50 - 1.10 mg/dL LAB CHEMISTRY METHOD 09/29/2025 12:43 PM [facility] eGFR 45(L) >=60 mL/min/1. 73m2 LAB CHEMISTRY METHOD 09/29/2025 12:43 PM [facility] Comment:Calculation based on the Chronic Kidney Disease Epidemiology Collaboration (CKD-EPI) equation refit without adjustment for race. BUN/Creatinine Ratio 17.2 LAB CHEMISTRY METHOD 09/29/2025 12:43 PM [facility] Calcium 8.8 8.5 - 10.5 mg/dL LAB CHEMISTRY METHOD 09/29/2025 12:43 PM [facility] AST (SGOT) 14 10 - 42 unit/L LAB CHEMISTRY METHOD 09/29/2025 12:43 PM [facility] ALT (SGPT) 21 10 - 60 unit/L LAB CHEMISTRY METHOD 09/29/2025 12:43 PM [facility] Alkaline Phosphatase 105 42 - 121 unit/L LAB CHEMISTRY METHOD 09/29/2025 12:43 PM [facility] Total Protein 6.0 6.0 - 8.0 g/dL LAB CHEMISTRY METHOD 09/29/2025 12:43 PM [facility] Albumin 2.7(L) 3.2 - 5.0 g/dL LAB CHEMISTRY METHOD 09/29/2025 12:43 PM [facility] Total Bilirubin 0.3 0.0 - 1.4 mg/dL LAB CHEMISTRY METHOD 09/29/2025 12:43 PM [facility] Blood Venous blood specimen / Unknown Venipuncture / Unknown 09/29/2025 6:47 AM EST 09/29/2025 10:42 AM EST us Mohit Willis MD LAB BLOOD ORDERABLES Final Resul t [facility] [address] [place] [address], * (ABNORMAL) CBC auto differential (09/15/2025 6:28 AM EDT) WBC 19.4(H) 4.8 - 10.8 K/mcL LAB HEMETOLOGY METHOD 09/15/2025 11:13 AM EDT [facility] RBC 3.10(L) 3.80 - 4.80 M/mcL LAB HEMETOLOGY METHOD 09/15/2025 11:13 AM EDT [facility] Hemoglobin 9.4(L) 11.5 - 16.0 g/dL LAB HEMETOLOGY METHOD 09/15/2025 11:[address] [facility] Hematocrit 30.5(L) 35.0 - 47.0 % LAB HEMETOLOGY METHOD 09/15/2025 11:[address] [facility] MCV 97.1 79.0 - 98.0 FL LAB HEMETOLOGY METHOD 09/15/2025 11:[address] [facility] MCH 29.9 27.0 - 32.0 pcg LAB HEMETOLOGY METHOD 09/15/2025 11:[address] [facility] MCHC 30.8(L) 32.0 - 37.0 g/dL LAB HEMETOLOGY METHOD 09/15/2025 11:[address] [facility] RDW 15.8(H) 11.0 - 15.0 % LAB HEMETOLOGY METHOD 09/15/2025 11:[address] [facility] Platelets 215 130 - 400 K/mcL LAB HEMETOLOGY METHOD 09/15/2025 11:[address] [facility] MPV 11.4(H) 7.0 - 11.0 FL LAB HEMETOLOGY METHOD 09/15/2025 11:[address] [facility] NRBC 0.0 <1.0 % LAB HEMETOLOGY METHOD 09/15/2025 11:[address] [facility] NRBC Absolute 0.00 <0.10 K/mcL LAB HEMETOLOGY METHOD 09/15/2025 11:[address] [facility] Neutrophils Relative 86.5 % LAB HEMETOLOGY METHOD 09/15/2025 11:[address] [facility] Lymphocytes Relative 6.8 % LAB HEMETOLOGY METHOD 09/15/2025 11:[address] [facility] Monocytes Relative 4.9 % LAB HEMETOLOGY METHOD 09/15/2025 11:13 AM EDT [facility] Eosinophils Relative 0.6 % LAB HEMETOLOGY METHOD 09/15/2025 11:13 AM EDT [facility] Basophils Relative 0.3 % LAB HEMETOLOGY METHOD 09/15/2025 11:13 AM EDT [facility] Immature Granulocytes Relative 0.9 % LAB HEMETOLOGY METHOD 09/15/2025 11:13 AM EDT [facility] Neutrophils Absolute 16.77(H) 1.50 - 7.00 K/mcL LAB HEMETOLOGY METHOD 09/15/2025 11:13 AM EDT [facility] Lymphocytes Absolute 1.32 1.00 - 5.00 K/mcL LAB HEMETOLOGY METHOD 09/15/2025 11:[address] [facility] Monocytes Absolute 0.95 0.20 - 1.00 K/mcL LAB HEMETOLOGY METHOD 09/15/2025 11:13 AM EDT [facility] Eosinophils Absolute 0.11 0.00 - 0.50 K/mcL LAB HEMETOLOGY METHOD 09/15/2025 11:13 AM EDT [facility] Basophils Absolute 0.06 0.00 - 0.20 K/mcL LAB HEMETOLOGY METHOD 09/15/2025 11:13 AM EDT [facility] Immature Granulocytes Absolute 0.17(H) 0.00 - 0.03 K/mcL LAB HEMETOLOGY METHOD 09/15/2025 11:13 AM EDT [facility] Blood Venous blood specimen / Unknown Venipuncture / Unknown 09/15/2025 6:28 AM EDT 09/15/2025 10:14 AM EDT us Mohit Willis MD LAB BLOOD ORDERABLES Final Resul t [facility] [address] [place] [address], * (ABNORMAL) Urinalysis with reflex microscopic and culture (09/15/2025 12:00 AM EDT) Only the most recent of2 resultswithin the time period is included. Specific [place] Urine 1.019 1.003 - 1.030 LAB URINALYSIS - AUTOMATED METHOD 09/16/2025 11:[address] [facility] pH, Urine 5.5 5.0 - 8.0 pH LAB URINALYSIS - AUTOMATED METHOD 09/16/2025 11:[address] [facility] Leukocytes, Urine Large(A) Negative LAB URINALYSIS - AUTOMATED METHOD 09/16/2025 11:[address] [facility] Nitrite, Urine Negative Negative LAB URINALYSIS - AUTOMATED METHOD 09/16/2025 11:[address] [facility] Protein, Urine 300(A) <=Trace mg/dL LAB URINALYSIS - AUTOMATED METHOD 09/16/2025 11:[address] [facility] Glucose, Urine Negative Negative mg/dL LAB URINALYSIS - AUTOMATED METHOD 09/16/2025 11:[address] [facility] Ketones, Urine Trace(A) Negative mg/dL LAB URINALYSIS - AUTOMATED METHOD 09/16/2025 11:[address] [facility] Urobilinogen , Urine 1.0 0.2 - 1.0 mg/dL LAB URINALYSIS - AUTOMATED METHOD 09/16/2025 11:[address] [facility] Bilirubin, Urine Negative Negative LAB URINALYSIS - AUTOMATED METHOD 09/16/2025 11:[address] [facility] Blood, Urine Trace(A) Negative LAB URINALYSIS - AUTOMATED METHOD 09/16/2025 11:[address] [facility] RBC, Urine 9.9(H) 0 - 4 /HPF LAB URINALYSIS - AUTOMATED METHOD 09/16/2025 11:20 AM EDT [facility] WBC, Urine 1,366.1(H) 0 - 4 /HPF LAB URINALYSIS - AUTOMATED METHOD 09/16/2025 11:20 AM EDT [facility] Squamous Epithelial, Urine 13 0 - 60 /LPF LAB URINALYSIS - AUTOMATED METHOD 09/16/2025 11:20 AM EDT [facility] Bacteria, Urine Many(A) Negative /HPF LAB URINALYSIS - AUTOMATED METHOD 09/16/2025 11:20 AM EDT [facility] Hyaline Casts, Urine 1.4 0 - 3 /LPF LAB URINALYSIS - AUTOMATED METHOD 09/16/2025 11:20 AM EDT [facility] Urine Urine specimen from urethra / Unknown 09/15/2025 09/16/2025 10:18 AM EDT us Mohit Willis MD LAB URINE ORDERABLES Final Resul t Performing Organization Address City/[facility]/ZIP Co de Phone Number [facility] [address] [place] [address], [place] [phone] * Mazariegos urine culture tube (09/15/2025 12:00 AM EDT) Only the most recent of2 resultswithin the time period is included. Extra Tube Hold for add-ons. 09/16/2025 12:01 PM EDT [facility] Comment:Auto resulted. Urine Urine specimen from urethra / Unknown 09/15/2025 09/16/2025 10:18 AM EDT us Mohit Willis MD LAB URINE ORDERABLES Final Resul t [facility] [address] [place] [address], [place] [phone] * (ABNORMAL) Culture urine (09/15/2025 12:00 AM EDT) [facility] Culture, Urine 10,000-49,000 CFU/mL Enterococcus faecalis(A) NATHALIE 09/19/2025 8:38 AM EDT [facility] Comment: The organism value for this result has been updated. These results have been appended to the previously preliminary verified report. This is an edited result. Previous organism was Enterococcus species on 09/18/2025 at 1314 EDT. Culture, Urine >=100,000 CFU/mL Lactobacillus species(A) NATHALIE 09/19/2025 8:38 AM EDT [facility] Comment: The organism value for [...] MICROBIOLOGY - GENERAL ORDER ALLISON Final Result [facility] [address] [place] [address], * (ABNORMAL) Basic metabolic panel (08/04/2025 6:15 AM EDT) Only the most recent of2 resultswithin the time period is included. [facility] Sodium 138 133 - 145 mmol/L LAB CHEMISTRY METHOD 08/04/2025 12:39 PM EDT [facility] Potassium 4.2 3.5 - 5.5 mmol/L LAB CHEMISTRY METHOD 08/04/2025 12:39 PM EDT [facility] Chloride 103 96 - 110 mmol/L LAB [facility]STRY [facility] CO2 25 21 - 32 mmol/L LAB CHEMISTRY METHOD 08/04/2025 12:[address] [facility] Anion Gap 10 3 - 11 LAB CHEMISTRY METHOD 08/04/2025 12:[address] [facility] Glucose 181(H) 70 - 100 mg/dL LAB CHEMISTRY METHOD 08/04/2025 12:39 PM T [facility] BUN 22 5 - 25 [...] Final Resul t [facility] [address] [place] [address], * Lipase (08/02/2025 12:29 PM EDT) Lipase 54 13 - 75 unit/L LAB CHEMISTRY METHOD 08/02/2025 1:34 PM EDT [facility] Blood Venous blood specimen / Unknown Venipuncture / Unknown 08/02/2025 12:29 PM EDT 08/02/2025 12:53 PM EDT Yong Dodson MD LAB BLOOD ORDERABLES Final Resul t Performing Organization Address City/[facility]/ZIP Co de Phone Number [facility] [address] [place] [address], [place] [phone] * Amylase (08/02/2025 12:29 PM EDT) Amylase 45 25 - 115 unit/L LAB CHEMISTRY METHOD 08/02/2025 1:34 PM EDT [facility] Blood Venous blood specimen / Unknown Venipuncture / Unknown 08/02/2025 12:29 PM EDT 08/02/2025 12:53 PM EDT Yong Dodson MD LAB BLOOD ORDERABLES Final Resul t Performing Organization Address [facility] Co de Phone Number [facility] [address] [place] [address], [place] [phone] from Last 3 Months Insurance MEDICAID - [place] [facility] [employer] [place] [id number] Care Teams Electric Bath Attendant Relationship Specialty Start Date End Date Yong Dodson MD [address] [place] [address] [address] [place], [phone] PCP - General Family Medicine 07/25/25
--- OUTSIDE RECORDS SUMMARY | 2025-10-27 23:59 | XMS_ITS | Encounter Summary ---
Author Organization [facility] Address [address] [place] [address] Care Team Providers Care Commercial Retoucher Name Role Phone Yong Dodson MD Primary Care Provider [phone] Encounter Details Date Type Department Care Team (Late st Contact Info) Description 09/24/2025 Lab Requisition [facility] Lab [address] [facility] [place] [address] Mohit Willis MD [address] [place], [place] [phone] Heart failure, unspecified (CMS/HCC V24, CMS/HCC V28); [...] Hold for add-ons. 09/24/2025 1:01 PM EST [facility] Comment:Auto resulted. Blood Venous blood specimen / Unknown Venipuncture / Unknown 09/24/2025 7:18 AM EST 09/24/2025 11:36 AM EST us Mohit Willis MD LAB BLOOD ORDERABLES Final Resul t [facility] [address] [place] [address], * (ABNORMAL) Comprehensive metabolic panel (09/24/2025 7:18 AM EST) [employer] Signature Sodium 137 133 - 145 mmol/L LAB CHEMISTRY METHOD 09/24/2025 12:13 PM [facility] Potassium 4.3 3.5 - [...] g/dL LAB CHEMISTRY METHOD 09/24/2025 12:13 PM [facility] Albumin 2.6(L) 3.2 - 5.0 g/dL LAB CHEMISTRY METHOD 09/24/2025 12:13 PM [facility] Total Bilirubin 0.7 0.0 - 1.4 mg/dL LAB CHEMISTRY METHOD 09/24/2025 12:13 PM [facility] Blood Venous blood specimen / Unknown Venipuncture / Unknown 09/24/2025 7:18 AM EST 09/24/2025 10:26 AM EST us Mohit Willis MD LAB BLOOD ORDERABLES Final Resul t [facility] [address] [place] [address], * (ABNORMAL) Complete blood count (09/24/2025 7:18 AM EST) WBC 16.7(H) 4.8 - 10.8 K/mcL LAB HEMETOLOGY METHOD 09/24/2025 12:14 PM [facility] RBC 3.80 3.80 - 4.80 M/mcL LAB HEMETOLOGY METHOD 09/24/2025 12:14 PM [facility] Hemoglobin 11.1(L) 11.5 - 16.0 g/dL LAB HEMETOLOGY METHOD 09/24/2025 12:14 PM [facility] Hematocrit 36.0 35.0 - 47.0 % LAB HEMETOLOGY METHOD 09/24/2025 12:14 PM [facility] MCV 94.7 79.0 - 98.0 FL LAB HEMETOLOGY METHOD 09/24/2025 12:14 PM EST [facility] MCH 29.2 27.0 - 32.0 pcg LAB HEMETOLOGY METHOD 09/24/2025 12:14 PM [facility] MCHC 30.8(L) 32.0 - 37.0 g/dL LAB HEMETOLOGY METHOD 09/24/2025 12:14 PM [facility] RDW 15.4(H) 11.0 - 15.0 % LAB HEMETOLOGY METHOD 09/24/2025 12:14 PM [facility] Platelets 272 130 - [...] Resul t [facility] [address] [place] [address], documented in this encounter Visit Diagnoses Diagnosis [...] CMS/HCC V28) Stricture of artery (CMS/[facility] V24) Stricture of artery Shortness of breath documented in this encounter Care Teams Commercial Retoucher Relationship Specialty Start Date End Date Yong Dodson MD [address] [place] [address], [phone] PCP - General Family Medicine 07/25/25 documented as of this encounter
--- OUTSIDE RECORDS SUMMARY | 2025-10-27 23:59 | XMS_ITS | Encounter Summary ---
Author Organization [facility] Address [address] [place] [address] Care Team Providers Care Disassembler Product Name Role Phone Yong Dodson MD Primary Care Provider [phone] Encounter Details Date Type Department Care Team (Late st Contact Info) Description 08/18/2025 Lab Requisition [facility] - Main Lab [address] [place] [address] Yong Dodson MD [address] [facility] [address] [place], [phone] Unspecified infectious disease Social History Tobacco [...] LAB HEMETOLOGY METHOD 08/18/2025 12:11 PM EDT [facility] RBC 3.60(L) 3.80 - 4.80 M/mcL LAB HEMETOLOGY METHOD 08/18/2025 12:11 PM EDT [facility] Hemoglobin 10.6(L) 11.5 - 16.0 g/dL LAB HEMETOLOGY METHOD 08/18/2025 12:11 PM EDT [facility] Hematocrit 34.6(L) 35.0 - 47.0 % LAB HEMETOLOGY METHOD 08/18/2025 12:11 PM EDT [facility] MCV 96.1 79.0 - 98.0 FL LAB HEMETOLOGY METHOD 08/18/2025 12:11 PM EDT [facility] MCH 29.4 27.0 - 32.0 pcg LAB HEMETOLOGY METHOD 08/18/2025 12:11 PM EDT [facility] MCHC 30.6(L) 32.0 - 37.0 g/dL LAB HEMETOLOGY METHOD 08/18/2025 12:11 PM EDT [facility] RDW 14.2 11.0 - 15.0 % LAB HEMETOLOGY METHOD 08/18/2025 12:11 PM EDT [facility] Platelets 224 130 - 400 K/mcL LAB HEMETOLOGY METHOD 08/18/2025 12:11 PM EDT [facility] MPV 11.4(H) 7.0 - 11.0 FL LAB HEMETOLOGY METHOD 08/18/2025 12:11 PM EDT [facility] NRBC 0.0 <1.0 % LAB HEMETOLOGY METHOD 08/18/2025 12:11 PM EDT [facility] NRBC Absolute 0.00 <0.10 K/mcL LAB HEMETOLOGY METHOD 08/18/2025 12:11 PM EDT [facility] Blood Venous blood specimen / Unknown Venipuncture / Unknown 08/18/2025 6:33 AM EDT 08/18/2025 11:01 AM EDT us Yong Dodson MD LAB BLOOD ORDERABLES Final Resul t [facility] [address] [place], [place] [address] [phone] documented in this encounter Visit Diagnoses Diagnosis Unspecified infectious disease documented in this encounter Care Teams Disassembler Product Relationship Specialty Start Date End Date Yong Dodson MD [address] [place] [address], [phone] PCP - General Family Medicine 07/25/25 documented as of this encounter
--- OUTSIDE RECORDS SUMMARY | 2025-10-27 23:59 | XMS_ITS | Encounter Summary ---
Author Organization [facility] Address [address] [place] [phone] Care Team Providers Care General Education Instructor Name Role Phone Yong Dodson MD Primary Care Provider [phone] Encounter Details Date Type Department Care Team (Late st Contact Info) Description 08/08/2025 Lab Requisition [facility] - Main Lab [address] [facility] [place] [employer] [address] Yong Dodson MD [address] [place] [address] [address] [place], [phone] Chronic obstructive pulmonary disease, unspecified (CMS/HCC [...] V28) documented in this encounter Care Teams General Education Instructor Relationship Specialty Start Date End Date Yong Dodson MD [address] [place] [address] [address] [place], [phone] PCP - General Family Medicine 07/25/25 documented as of this encounter
--- OUTSIDE RECORDS SUMMARY | 2025-10-27 23:59 | XMS_ITS | Encounter Summary ---
Author Organization [facility] Address [address] [place] [address] Care Team Providers Care Supervisor Nuclear Medicine Name Role Phone Yong Dodson MD Primary Care Provider [phone] Encounter Details Date Type Department Care Team (Late st Contact Info) Description 09/16/2025 Lab Requisition [facility] - Main Lab [address] [facility] [place] [address] Mohit Willis MD [address] [place] [address] Altered mental status, unspecified Social History Tobacco [...] Enterococcus faecalis(A) NATHALIE 09/19/2025 8:38 AM EDT [facility] Comment: The organism value for this result has been updated. These results have been appended to the previously preliminary verified report. This is an edited result. Previous organism was Enterococcus species on 09/18/2025 at 1314 EDT. Culture, Urine >=100,000 CFU/mL Lactobacillus species(A) NATHALIE 09/19/2025 8:38 AM EDT [facility] Comment: The organism value [...] MICROBIOLOGY - GENERAL ORDER ALLISON Final Result [facility] [address] [place] [address], * (ABNORMAL) Urinalysis with reflex microscopic and culture (09/15/2025 12:00 AM EDT) [facility] Specific Rufe Urine 1.019 1.003 - 1.030 LAB URINALYSIS - AUTOMATED METHOD 09/16/2025 11:20 AM EDT [facility] pH, Urine 5.5 5.0 - 8.0 pH LAB URINALYSIS - AUTOMATED METHOD 09/16/2025 11:20 AM EDT [facility] Leukocytes, Urine Large(A) Negative LAB URINALYSIS - AUTOMATED METHOD 09/16/2025 11:20 AM [facility] Nitrite, Urine Negative Negative LAB URINALYSIS - AUTOMATED METHOD 09/16/2025 11:20 AM [facility] Protein, Urine 300(A) <=Trace mg/dL LAB URINALYSIS - AUTOMATED METHOD 09/16/2025 11:20 AM [facility] Glucose, Urine Negative Negative mg/dL LAB URINALYSIS - AUTOMATED METHOD 09/16/2025 11:20 AM [facility] Ketones, Urine Trace(A) Negative mg/dL LAB URINALYSIS - AUTOMATED METHOD 09/16/2025 11:20 AM [facility] Urobilinogen , Urine 1.0 0.2 - 1.0 mg/dL LAB URINALYSIS - AUTOMATED METHOD 09/16/2025 11:20 AM [facility] Bilirubin, Urine Negative Negative LAB URINALYSIS - AUTOMATED METHOD 09/16/2025 11:20 AM [facility] Blood, Urine Trace(A) Negative LAB URINALYSIS - AUTOMATED METHOD 09/16/2025 11:20 AM [facility] RBC, Urine 9.9(H) 0 - 4 /HPF LAB URINALYSIS - AUTOMATED METHOD 09/16/2025 11:20 AM [facility] WBC, Urine 1,366.1(H) 0 - 4 /HPF LAB URINALYSIS - AUTOMATED METHOD 09/16/2025 11:20 AM [facility] Squamous Epithelial, Urine 13 0 - 60 /LPF LAB URINALYSIS - AUTOMATED METHOD 09/16/2025 11:20 AM [facility] Bacteria, Urine Many(A) Negative /HPF LAB URINALYSIS - AUTOMATED METHOD 09/16/2025 11:20 AM [facility] Hyaline Casts, Urine 1.4 0 - 3 /LPF LAB URINALYSIS - AUTOMATED METHOD 09/16/2025 11:20 AM EDT [facility] Urine Urine specimen from urethra / Unknown 09/15/2025 09/16/2025 10:18 AM EDT us Mohit Willis MD LAB URINE ORDERABLES Final Resul t Performing Organization Address City/[facility]/ZIP Co de Phone Number [facility] [address] [place] [address], [place] [phone] * Mazariegos urine culture tube (09/15/2025 12:00 AM EDT) Extra Tube Hold for add-ons. 09/16/2025 12:01 PM EDT [facility] Comment:Auto resulted. Urine Urine specimen from urethra / Unknown 09/15/2025 09/16/2025 10:18 AM EDT Mohit Willis MD LAB URINE ORDERABLES Final Resul t Performing Organization Address [facility] Co de Phone Number [facility] [address] [place] [address], [place] [phone] documented in this encounter Visit Diagnoses Diagnosis Altered mental status, unspecified documented in this encounter Care Teams Supervisor Nuclear Medicine Relationship Specialty Start Date End Date Yong Dodson MD [address] [place] [phone] PCP - General Family Medicine 07/25/25 documented as of this encounter
--- OUTSIDE RECORDS SUMMARY | 2025-10-28 | XMS_ITS | Encounter Summary ---
Author Organization [facility] Address [address] [place] [address] Care Team Providers Care Quality Assurance Supervisor Name Role Phone Yong Dodson MD Primary Care Provider [phone] Encounter Details Date Type Department Care Team (Late st Contact Info) Description 07/25/2025 Lab Requisition [facility] - Main Lab [address] [place] [address] Yong Dodson MD 38 [facility] [address] [place], [address] Chronic obstructive pulmonary disease, unspecified (CMS/HCC [...] LAB CHEMISTRY METHOD 07/25/2025 9:28 AM EDT [facility] Potassium 4.6 3.5 - 5.5 mmol/L LAB CHEMISTRY METHOD 07/25/2025 9:28 AM [facility] Chloride 100 96 - 110 mmol/L LAB CHEMISTRY METHOD 07/25/2025 9:28 AM [facility] CO2 29 21 - 32 mmol/L LAB CHEMISTRY METHOD 07/25/2025 9:28 AM [facility] Anion Gap 6 3 - 11 LAB CHEMISTRY METHOD 07/25/2025 9:28 AM [facility] Glucose 199(H) 70 - 100 mg/dL LAB CHEMISTRY METHOD 07/25/2025 9:28 AM [facility] BUN 31(H) 5 - 25 mg/dL LAB CHEMISTRY METHOD 07/25/2025 9:28 AM [facility] Creatinine 1.37(H) 0.50 - 1.10 mg/dL LAB CHEMISTRY METHOD 07/25/2025 9:28 AM [facility] eGFR 39(L) >=60 mL/min/1. 73m2 LAB CHEMISTRY METHOD 07/25/2025 9:28 AM [facility] Comment:Calculation based on the Chronic Kidney Disease Epidemiology Collaboration (CKD-EPI) equation refit without adjustment for race. BUN/Creatinine Ratio 22.6 LAB CHEMISTRY METHOD 07/25/2025 9:28 AM [facility] Calcium 9.4 8.5 - 10.5 mg/dL LAB CHEMISTRY METHOD 07/25/2025 9:28 AM [facility] AST (SGOT) 29 10 - 42 unit/L LAB CHEMISTRY METHOD 07/25/2025 9:28 AM [facility] ALT (SGPT) 11 10 - 60 unit/L LAB CHEMISTRY METHOD 07/25/2025 9:28 AM [facility] Alkaline Phosphatase 105 42 - 121 unit/L LAB CHEMISTRY METHOD 07/25/2025 9:28 AM [facility] Total Protein 5.9(L) 6.0 [...] Final Resul t [facility] [address] [place] [address], * (ABNORMAL) Complete blood count (07/25/2025 5:24 AM EDT) WBC 10.7 4.8 - 10.8 K/mcL LAB HEMETOLOGY METHOD 07/25/2025 8:52 AM [facility] RBC 3.30(L) 3.80 - [...] Resul t [facility] [address] [place] [address], documented in this encounter Visit Diagnoses Diagnosis Chronic obstructive pulmonary disease, unspecified (CMS/HCC V24, CMS/HCC V28) documented in this encounter Care Teams Quality Assurance Supervisor Relationship Specialty Start Date End Date Yong Dodson MD [address] [place] [address], [phone] PCP - General Family Medicine 07/25/25 documented as of this encounter
--- OUTSIDE RECORDS SUMMARY | 2025-10-28 | XMS_ITS | Encounter Summary ---
Author Organization [facility] Address [address] [place] [address] Care Team Providers Care Candlemaking Laborer Name Role Phone Yong Dodson MD Primary Care Provider [phone] Encounter Details Date Type Department Care Team (Late st Contact Info) Description 08/02/2025 Lab Requisition [facility] - Main Lab 299 [facility] [place] [address] Yong Dodson MD [address] [place] [address] [address] [place], [phone] Chronic kidney disease, stage 3a (CMS/HCC [...] * Lipase (08/02/2025 12:29 PM EDT) Pathologist [facility] Lipase 54 13 - 75 unit/L LAB CHEMISTRY METHOD 08/02/2025 1:34 PM EDT [facility] Blood Venous blood specimen / Unknown Venipuncture / Unknown 08/02/2025 12:29 PM EDT 08/02/2025 12:53 PM EDT Yong Dodson MD LAB BLOOD ORDERABLES Final Resul t Performing Organization Address City/[facility]/ZIP Co de Phone Number [facility] [address] [place] [address], [place] [phone] * Amylase (08/02/2025 12:29 PM EDT) [facility] Amylase 45 25 - 115 unit/L LAB CHEMISTRY METHOD 08/02/2025 1:34 PM EDT [facility] Blood Venous blood specimen / Unknown Venipuncture / Unknown 08/02/2025 12:29 PM EDT 08/02/2025 12:53 PM EDT Yong Dodson MD LAB BLOOD ORDERABLES Final Resul t Performing Organization Address City/[facility]/ZIP Co de Phone Number [facility] [address] [place] [address], [place] [phone] * (ABNORMAL) Comprehensive metabolic panel (08/02/2025 12:29 PM EDT) Pathologist [facility] Sodium 138 133 - 145 mmol/L LAB CHEMISTRY METHOD 08/02/2025 1:34 PM EDT [facility] Potassium 4.6 3.5 - 5.5 mmol/L LAB CHEMISTRY METHOD 08/02/2025 1:34 PM EDT [facility] Chloride 102 96 - 110 mmol/L LAB CHEMISTRY METHOD 08/02/2025 1:34 PM [facility] CO2 26 21 - 32 mmol/L LAB CHEMISTRY METHOD 08/02/2025 1:34 PM [facility] Anion Gap 10 3 - 11 LAB CHEMISTRY METHOD 08/02/2025 1:34 PM [facility] Glucose 294(H) 70 - 100 mg/dL LAB CHEMISTRY METHOD 08/02/2025 1:34 PM [facility] BUN 17 5 - 25 mg/dL LAB CHEMISTRY METHOD 08/02/2025 1:34 PM [facility] Creatinine 1.04 0.50 - 1.10 mg/dL LAB CHEMISTRY METHOD 08/02/2025 1:34 PM [facility] eGFR 55(L) >=60 mL/min/1. 73m2 LAB CHEMISTRY METHOD 08/02/2025 1:34 PM [facility] Comment:Calculation based on the Chronic Kidney Disease Epidemiology Collaboration (CKD-EPI) equation refit without adjustment for race. BUN/Creatinine Ratio 16.3 LAB CHEMISTRY METHOD 08/02/2025 1:34 PM [facility] Calcium 9.1 8.5 - 10.5 mg/dL LAB CHEMISTRY METHOD 08/02/2025 1:34 PM [facility] AST (SGOT) 15 10 - 42 unit/L LAB CHEMISTRY METHOD 08/02/2025 1:34 PM [facility] ALT (SGPT) 15 10 - 60 unit/L LAB CHEMISTRY METHOD 08/02/2025 1:34 PM [facility] Alkaline Phosphatase 119 42 - 121 unit/L LAB CHEMISTRY METHOD 08/02/2025 1:34 PM [facility] Total Protein 6.3 6.0 - 8.0 g/dL LAB CHEMISTRY METHOD 08/02/2025 1:34 PM [facility] Albumin 2.8(L) 3.2 - 5.0 g/dL LAB CHEMISTRY METHOD 08/02/2025 1:34 PM EDT [facility] Total Bilirubin 0.6 0.0 - 1.4 mg/dL LAB CHEMISTRY METHOD 08/02/2025 1:34 PM EDT [facility] Blood Venous blood specimen / Unknown Venipuncture / Unknown 08/02/2025 12:29 PM EDT 08/02/2025 12:53 PM EDT us Yong Dodson MD LAB BLOOD ORDERABLES Final Resul t [facility] [address] [place] [address], [place] [phone] * (ABNORMAL) Complete blood count (08/02/2025 12:29 PM EDT) WBC 12.1(H) 4.8 - 10.8 K/mcL LAB HEMETOLOGY METHOD 08/02/2025 1:30 PM EDT [facility] RBC 3.70(L) 3.80 - 4.80 M/mcL LAB HEMETOLOGY METHOD 08/02/2025 1:30 PM EDT [facility] Hemoglobin 11.0(L) 11.5 - 16.0 g/dL LAB HEMETOLOGY METHOD 08/02/2025 1:30 PM EDT [facility] Hematocrit 35.7 35.0 - 47.0 % LAB HEMETOLOGY METHOD 08/02/2025 1:30 PM EDT [facility] MCV 97.3 79.0 - 98.0 FL LAB HEMETOLOGY METHOD 08/02/2025 1:30 PM EDT [facility] MCH 30.0 27.0 - 32.0 pcg LAB HEMETOLOGY METHOD 08/02/2025 1:30 PM EDT [facility] MCHC 30.8(L) 32.0 - 37.0 g/dL LAB HEMETOLOGY METHOD 08/02/2025 1:30 PM EDT [facility] RDW 14.5 11.0 - 15.0 % LAB HEMETOLOGY METHOD 08/02/2025 1:30 PM EDT [facility] Platelets 267 130 - 400 K/mcL LAB HEMETOLOGY METHOD 08/02/2025 1:30 PM EDT [facility] MPV 10.9 7.0 - 11.0 FL LAB HEMETOLOGY METHOD 08/02/2025 1:30 PM EDT [facility] NRBC 0.0 <1.0 % LAB HEMETOLOGY METHOD 08/02/2025 1:30 PM EDT [facility] NRBC Absolute 0.00 <0.10 K/mcL LAB HEMETOLOGY METHOD 08/02/2025 1:30 PM EDT [facility] Blood Venous blood specimen / Unknown Venipuncture / Unknown 08/02/2025 12:29 PM EDT 08/02/2025 12:53 PM EDT us Yong Dodson MD LAB BLOOD ORDERABLES Final Resul t [facility] [address] [place] [address], documented in this encounter Visit Diagnoses Diagnosis Chronic kidney disease, stage 3a (CMS/HCC V24, CMS/HCC V28) documented in this encounter Care Teams Candlemaking Laborer Relationship Specialty Start Date End Date Yong Dodson MD [address] [place] [address], [phone] PCP - General Family Medicine 07/25/25 documented as of this encounter
--- OUTSIDE RECORDS SUMMARY | 2025-10-28 | XMS_ITS | Encounter Summary ---
Author Organization [facility] Address [address] [place] [address] Care Team Providers Care Division Field Inspector Name Role Phone Yong Dodson MD Primary Care Provider [phone] Encounter Details Date Type Department Care Team (Late st Contact Info) Description 07/26/2025 Lab Requisition [facility] - Main Lab [address] [place] [address] Yong Dodson MD 38 [facility] [address] [place], [address] Chronic obstructive pulmonary disease, unspecified (CMS/HCC [...] LAB CHEMISTRY METHOD 07/28/2025 12:29 PM EDT [facility] Potassium 4.4 3.5 - 5.5 [...] Resul t [facility] [address] [place] [address], [place] [phone] * (ABNORMAL) Complete blood count (07/28/2025 6:20 AM EDT) [facility] WBC 8.7 4.8 - 10.8 K/mcL LAB [...] LAB HEMETOLOGY METHOD 07/28/2025 11:28 AM EDT [facility] NRBC Absolute 0.00 <0.10 K/mcL LAB HEMETOLOGY METHOD 07/28/2025 11:28 AM EDT [facility] Blood Venous blood specimen / Unknown Venipuncture / Unknown 07/28/2025 6:20 AM EDT 07/28/2025 10:56 AM EDT us Yong Dodson MD LAB BLOOD ORDERABLES Final Resul t [facility] [address] [place] [address], documented in this encounter Visit Diagnoses Diagnosis Chronic obstructive pulmonary disease, unspecified (CMS/HCC V24, CMS/HCC V28) documented in this encounter Care Teams Division Field Inspector Relationship Specialty Start Date End Date Yong Dodson MD [address] [place] [address], [phone] PCP - General Family Medicine 07/25/25 documented as of this encounter
--- OUTSIDE RECORDS SUMMARY | 2025-10-28 | XMS_ITS | Clinical Summary ---
Author Organization [facility] Address [address] [place] [address] Phone Care Team Providers Care Chairman And Ceo Name Role Phone Pcp, Unknown Primary Care Provider Migdalia Wing MD Unavailable [phone] Social History Tobacco Use Types Packs/Day Years [...] & B MEDICARE PART A & B [facility] A & B MEDICARE PART A & B MEDICARE PART A & B MEDICARE PART A & B MEDICARE PART A & B MEDICARE PART A & B MEDICARE PART A & B Care Teams Chairman And Ceo Relationship Specialty Start Date End Date Pcp, Unknown PCP - General 05/24/24 Migdalia Barahona MD [address] [place] [phone] [email or web address] Medicine 05/24/24 Additional Source Comments The information contained in this document represents components of the legal health record. It is not the complete legal health record.[facility]
--- OUTSIDE RECORDS SUMMARY | 2025-10-28 | XMS_ITS | Encounter Summary ---
Author Organization [facility] Address [address] [place] [address] Care Team Providers Care Research Associate Name Role Phone Yong Dodson MD Primary Care Provider [phone] Encounter Details Date Type Department Care Team (Late st Contact Info) Description 09/15/2025 Lab Requisition [facility] - Main Lab 299 [facility] [place] [address] Mohit Willis MD [address] [place], [place] [id number] Chronic obstructive pulmonary disease, unspecified (CMS/HCC V24, [...] Lavender tube (09/15/2025 6:28 AM EDT) Pathologist [facility] Extra Tube Hold for add-ons. 09/15/2025 12:01 PM EDT [facility] Comment:Auto resulted. Blood Venous blood specimen / Unknown Venipuncture / Unknown 09/15/2025 6:28 AM EDT 09/15/2025 10:15 AM EDT us Mohit Willis MD LAB BLOOD ORDERABLES Final Resul t [facility] [address] [place] [address], * (ABNORMAL) CBC auto differential (09/15/2025 6:28 AM EDT) [facility] WBC 19.4(H) 4.8 - 10.8 K/mcL LAB HEMETOLOGY METHOD 09/15/2025 11:13 AM EDT [facility] RBC 3.10(L) 3.80 - 4.80 M/mcL LAB HEMETOLOGY METHOD 09/15/2025 11:13 AM EDT [facility] Hemoglobin 9.4(L) 11.5 - 16.0 g/dL LAB HEMETOLOGY METHOD 09/15/2025 11:13 AM EDT [facility] Hematocrit 30.5(L) 35.0 - 47.0 % LAB HEMETOLOGY METHOD 09/15/2025 11:13 AM [facility] MCV 97.1 79.0 - 98.0 FL LAB HEMETOLOGY METHOD 09/15/2025 11:13 AM [facility] MCH 29.9 27.0 - 32.0 pcg LAB HEMETOLOGY METHOD 09/15/2025 11:13 AM [facility] MCHC 30.8(L) 32.0 - 37.0 g/dL LAB HEMETOLOGY METHOD 09/15/2025 11:13 AM [facility] RDW 15.8(H) 11.0 - 15.0 % LAB HEMETOLOGY METHOD 09/15/2025 11:13 AM [facility] Platelets 215 130 - 400 K/mcL LAB HEMETOLOGY METHOD 09/15/2025 11:13 AM [facility] MPV 11.4(H) 7.0 - 11.0 FL LAB HEMETOLOGY METHOD 09/15/2025 11:13 AM [facility] NRBC 0.0 <1.0 % LAB HEMETOLOGY METHOD 09/15/2025 11:13 AM [facility] NRBC Absolute 0.00 <0.10 K/mcL LAB HEMETOLOGY METHOD 09/15/2025 11:13 AM [facility] Neutrophils Relative 86.5 % LAB HEMETOLOGY METHOD 09/15/2025 11:13 AM [facility] Lymphocytes Relative 6.8 % LAB HEMETOLOGY METHOD 09/15/2025 11:13 AM [facility] Monocytes Relative 4.9 % LAB HEMETOLOGY METHOD 09/15/2025 11:13 AM [facility] Eosinophils Relative 0.6 % LAB HEMETOLOGY METHOD 09/15/2025 11:13 AM [facility] Basophils Relative 0.3 % LAB HEMETOLOGY METHOD 09/15/2025 11:13 AM EDT [facility] Immature Granulocytes Relative 0.9 % LAB HEMETOLOGY METHOD 09/15/2025 11:13 AM EDT [facility] Neutrophils Absolute 16.77(H) 1.50 - 7.00 K/mcL LAB HEMETOLOGY METHOD 09/15/2025 11:13 AM EDT [facility] Lymphocytes Absolute 1.32 1.00 - 5.00 K/mcL LAB HEMETOLOGY METHOD 09/15/2025 11:13 AM EDT [facility] Monocytes Absolute 0.95 0.20 - 1.00 K/mcL LAB HEMETOLOGY METHOD 09/15/2025 11:13 AM EDT [facility] Eosinophils Absolute 0.11 0.00 - 0.50 K/mcL LAB HEMETOLOGY METHOD 09/15/2025 11:13 AM EDT [facility] Basophils Absolute 0.06 0.00 - 0.20 K/mcL LAB HEMETOLOGY METHOD 09/15/2025 11:13 AM EDT [facility] Immature Granulocytes Absolute 0.17(H) 0.00 - 0.03 K/mcL LAB HEMETOLOGY METHOD 09/15/2025 11:13 AM [facility] Blood Venous blood specimen / Unknown Venipuncture / Unknown 09/15/2025 6:28 AM EDT 09/15/2025 10:14 AM EDT us Mohit Willis MD LAB BLOOD ORDERABLES Final Resul t [facility] [address] [place] [address], * (ABNORMAL) Comprehensive metabolic panel (09/15/2025 6:28 AM EDT) [facility] Sodium 134 133 - 145 mmol/L LAB CHEMISTRY METHOD 09/15/2025 1:06 PM [facility] Potassium 4.7 3.5 - 5.5 mmol/L LAB CHEMISTRY METHOD 09/15/2025 1:06 PM [facility] Chloride 99 96 - 110 mmol/L LAB CHEMISTRY METHOD 09/15/2025 1:06 PM [facility] CO2 23 21 - 32 mmol/L LAB CHEMISTRY METHOD 09/15/2025 1:06 PM [facility] Anion Gap 12(H) 3 - 11 LAB CHEMISTRY METHOD 09/15/2025 1:06 PM [facility] Glucose 159(H) 70 - 100 mg/dL LAB CHEMISTRY METHOD 09/15/2025 1:06 PM [facility] BUN 39(H) 5 - 25 mg/dL LAB CHEMISTRY METHOD 09/15/2025 1:06 PM [facility] Creatinine 2.00(H) 0.50 - 1.10 mg/dL LAB CHEMISTRY METHOD 09/15/2025 1:06 PM [facility] eGFR 25(L) >=60 mL/min/1. 73m2 LAB CHEMISTRY METHOD 09/15/2025 1:06 PM [facility] Comment:Calculation based on the Chronic Kidney Disease Epidemiology Collaboration (CKD-EPI) equation refit without adjustment for race. BUN/Creatinine Ratio 19.5 LAB CHEMISTRY METHOD 09/15/2025 1:06 PM [facility] Calcium 8.9 8.5 - 10.5 mg/dL LAB CHEMISTRY METHOD 09/15/2025 1:06 PM [facility] AST (SGOT) 16 10 - 42 unit/L LAB CHEMISTRY METHOD 09/15/2025 1:06 PM [facility] ALT (SGPT) 16 10 - 60 unit/L LAB CHEMISTRY METHOD 09/15/2025 1:06 PM [facility] Alkaline Phosphatase 129(H) 42 - 121 unit/L LAB CHEMISTRY METHOD 09/15/2025 1:06 PM EDT [facility] Total Protein 5.9(L) 6.0 - 8.0 g/dL LAB CHEMISTRY METHOD 09/15/2025 1:06 PM EDT [facility] Albumin 2.4(L) 3.2 - 5.0 g/dL LAB CHEMISTRY METHOD 09/15/2025 1:06 PM EDT [facility] Total Bilirubin 0.7 0.0 - 1.4 mg/dL LAB CHEMISTRY METHOD 09/15/2025 1:06 PM EDT [facility] Blood Venous blood specimen / Unknown Venipuncture / Unknown 09/15/2025 6:28 AM EDT 09/15/2025 10:14 AM EDT us Mohit Willis MD LAB BLOOD ORDERABLES Final Resul t [facility] [address] [place] [address], documented in this encounter Visit Diagnoses Diagnosis Chronic obstructive pulmonary disease, unspecified (CMS/HCC V24, CMS/HCC V28) Heart failure, unspecified (CMS/HCC V24, CMS/HCC V28) Heart failure, unspecified documented in this encounter Care Teams Research Associate Relationship Specialty Start Date End Date Yong Dodson MD [address] [place] [address], [phone] PCP - General Family Medicine 07/25/25 documented as of this encounter
--- OUTSIDE RECORDS SUMMARY | 2025-10-28 | XMS_ITS | Encounter Summary ---
Author Organization [facility] Address [address] [place] [address] Care Team Providers Care Registrar Assistant Name Role Phone Yong Dodson MD Primary Care Provider [phone] Encounter Details Date Type Department Care Team (Late st Contact Info) Description 09/29/2025 Lab Requisition [facility] - Main Lab [address] [facility] [place] [address] Mohit Willis MD [address] [place], [place] [id number] Urinary tract infection, site not specified; Elevated white blood cell count, unspecified; Heart failure, unspecified (CMS/HCC V24, CMS/HCC V28) [...] count, unspecified Heart failure, unspecified (CMS/HCC V24, CMS/[facility] V28) documented in this encounter Results * Lavender tube (09/29/2025 6:47 AM EST) [facility] Extra Tube Hold for add-ons. 09/29/2025 12:01 PM [facility] Comment:Auto resulted. Blood Venous blood specimen / Unknown Venipuncture / Unknown 09/29/2025 6:47 AM EST 09/29/2025 10:42 AM EST us Mohit Willis MD LAB BLOOD ORDERABLES Final Resul t [facility] [address] [place] [address], [place] [phone] * (ABNORMAL) Comprehensive metabolic panel (09/29/2025 6:47 AM EST) [facility] Sodium 140 133 - 145 mmol/L LAB CHEMISTRY METHOD 09/29/2025 12:43 PM [facility] Potassium 4.3 3.5 - 5.5 mmol/L LAB CHEMISTRY METHOD 09/29/2025 12:43 PM [facility] Chloride 107 96 - 110 mmol/L LAB CHEMISTRY METHOD 09/29/2025 12:43 PM [facility] CO2 26 21 - 32 mmol/L LAB CHEMISTRY METHOD 09/29/2025 12:43 PM [facility] Anion Gap 7 3 - 11 LAB CHEMISTRY METHOD 09/29/2025 12:43 PM [facility] Glucose 245(H) 70 - 100 mg/dL LAB CHEMISTRY METHOD 09/29/2025 12:43 PM [facility] BUN 21 5 - 25 mg/dL LAB CHEMISTRY METHOD 09/29/2025 12:43 PM [facility] Creatinine 1.22(H) 0.50 - 1.10 mg/dL LAB CHEMISTRY METHOD 09/29/2025 12:43 PM [facility] eGFR 45(L) >=60 mL/min/1. 73m2 LAB CHEMISTRY METHOD 09/29/2025 12:43 PM [facility] Comment:Calculation based on the Chronic Kidney Disease Epidemiology Collaboration (CKD-EPI) equation refit without adjustment for race. BUN/Creatinine Ratio 17.2 LAB CHEMISTRY METHOD 09/29/2025 12:43 PM [facility] Calcium 8.8 8.5 - 10.5 mg/dL LAB CHEMISTRY METHOD 09/29/2025 12:43 PM [facility] AST (SGOT) 14 10 - 42 unit/L LAB CHEMISTRY METHOD 09/29/2025 12:43 PM [facility] ALT (SGPT) 21 10 - 60 unit/L LAB CHEMISTRY METHOD 09/29/2025 12:43 PM [facility] Alkaline Phosphatase 105 42 - 121 unit/L LAB CHEMISTRY METHOD 09/29/2025 12:43 PM [facility] Total Protein 6.0 6.0 - 8.0 g/dL LAB CHEMISTRY METHOD 09/29/2025 12:43 PM [facility] Albumin 2.7(L) 3.2 - 5.0 g/dL LAB CHEMISTRY METHOD 09/29/2025 12:43 PM [facility] Total Bilirubin 0.3 0.0 - 1.4 mg/dL LAB CHEMISTRY METHOD 09/29/2025 12:43 PM [facility] Blood Venous blood specimen / Unknown Venipuncture / Unknown 09/29/2025 6:47 AM EST 09/29/2025 10:42 AM EST us Mohit Willis MD LAB BLOOD ORDERABLES Final Resul t [facility] [address] [place] [address], [place] [phone] * (ABNORMAL) Complete blood count (09/29/2025 6:47 AM EST) [facility] WBC 12.3(H) 4.8 - 10.8 K/mcL LAB HEMETOLOGY METHOD 09/29/2025 12:20 PM [facility] RBC 3.50(L) 3.80 - 4.80 M/mcL LAB HEMETOLOGY METHOD 09/29/2025 12:20 PM [facility] Hemoglobin 10.2(L) 11.5 - 16.0 g/dL LAB HEMETOLOGY METHOD 09/29/2025 12:20 PM [facility] Hematocrit 33.3(L) 35.0 - 47.0 % LAB HEMETOLOGY METHOD 09/29/2025 12:20 PM [facility] MCV 96.5 79.0 - 98.0 FL LAB HEMETOLOGY METHOD 09/29/2025 12:20 PM [facility] MCH 29.6 27.0 - 32.0 pcg LAB HEMETOLOGY METHOD 09/29/2025 12:20 PM [facility] MCHC 30.6(L) 32.0 - 37.0 g/dL LAB HEMETOLOGY METHOD 09/29/2025 12:20 PM [facility] RDW 15.0 11.0 - 15.0 % LAB HEMETOLOGY METHOD 09/29/2025 12:20 PM [facility] Platelets 202 130 - 400 K/mcL LAB HEMETOLOGY METHOD 09/29/2025 12:20 PM [facility] MPV 10.9 7.0 - 11.0 FL LAB HEMETOLOGY METHOD 09/29/2025 12:20 PM [facility] NRBC 0.0 <1.0 % LAB HEMETOLOGY METHOD 09/29/2025 12:20 PM [facility] NRBC Absolute 0.00 <0.10 K/mcL LAB HEMETOLOGY METHOD 09/29/2025 12:20 PM EST [facility] Blood Venous blood specimen / Unknown Venipuncture / Unknown 09/29/2025 6:47 AM EST 09/29/2025 10:42 AM EST us Mohit Willis MD LAB BLOOD ORDERABLES Final Resul t [facility] [address] [place] [address], documented in this encounter Visit Diagnoses Diagnosis Urinary tract infection, site not specified Elevated white blood cell count, unspecified Heart failure, unspecified (CMS/HCC V24, CMS/HCC V28) Heart failure, unspecified documented in this encounter Care Teams Registrar Assistant Relationship Specialty Start Date End Date Yong Dodson MD [address] [place] [address], [phone] PCP - General Family Medicine 07/25/25 documented as of this encounter
--- OUTSIDE RECORDS SUMMARY | 2025-10-28 | XMS_ITS | Encounter Summary ---
Author Organization [facility] Address [address] [place] [address] Care Team Providers Care Ict Support And Test Engineers Name Role Phone Yong Dodson MD Primary Care Provider [phone] Encounter Details Date Type Department Care Team (Late st Contact Info) Description 08/04/2025 Lab Requisition [facility] - Main Lab [address] [facility] [place] [address] Yong Dodson MD [address] [place] [address] [address] [place], [address] Chronic kidney disease, stage 3a (CMS/HCC [...] and culture (08/03/2025 3:00 PM EDT) Specific [facility] Urine 1.020 1.003 - 1.030 LAB URINALYSIS - AUTOMATED METHOD 08/04/2025 11:52 AM [facility] pH, Urine 5.5 5.0 - 8.0 pH LAB URINALYSIS - AUTOMATED METHOD 08/04/2025 11:52 AM [facility] Leukocytes, Urine Negative Negative LAB URINALYSIS - AUTOMATED METHOD 08/04/2025 11:52 AM [facility] Nitrite, Urine Negative Negative LAB URINALYSIS - AUTOMATED METHOD 08/04/2025 11:52 AM [facility] Protein, Urine >=1000(A) <=Trace mg/dL LAB URINALYSIS - AUTOMATED METHOD 08/04/2025 11:52 AM [facility] Glucose, Urine 100(A) Negative mg/dL LAB URINALYSIS - AUTOMATED METHOD 08/04/2025 11:52 AM [facility] Ketones, Urine Negative Negative mg/dL LAB URINALYSIS - AUTOMATED METHOD 08/04/2025 11:52 AM [facility] Urobilinogen , Urine 0.2 0.2 - 1.0 mg/dL LAB URINALYSIS - AUTOMATED METHOD 08/04/2025 11:52 AM [facility] Bilirubin, Urine Negative Negative LAB URINALYSIS - AUTOMATED METHOD 08/04/2025 11:52 AM [facility] Blood, Urine Negative Negative LAB URINALYSIS - AUTOMATED METHOD 08/04/2025 11:52 AM [facility] RBC, Urine 1.8 0 - 4 /HPF LAB URINALYSIS - AUTOMATED METHOD 08/04/2025 11:52 AM [facility] WBC, Urine 1.4 0 - 4 /HPF LAB URINALYSIS - AUTOMATED METHOD 08/04/2025 11:52 AM EDT [facility] Squamous Epithelial, Urine 30 0 - 60 /LPF LAB URINALYSIS - AUTOMATED METHOD 08/04/2025 11:52 AM EDT [facility] Bacteria, Urine Negative Negative /HPF LAB URINALYSIS - AUTOMATED METHOD 08/04/2025 11:52 AM EDT [facility] Hyaline Casts, Urine 1.6 0 - 3 /LPF LAB URINALYSIS - AUTOMATED METHOD 08/04/2025 11:52 AM EDT [facility] Urine Urinary bladder structure / Unknown 08/03/2025 3:00 PM EDT 08/04/2025 11:39 AM EDT us Yong Dodson MD LAB URINE ORDERABLES Final Resul t Performing Organization Address City/[facility]/ZIP Co de Phone Number [facility] [address] [place] [address], [place] [phone] * Mazariegos urine culture tube (08/03/2025 3:00 PM EDT) Extra Tube Hold for add-ons. 08/04/2025 1:01 PM EDT [facility] Comment:Auto resulted. Urine Urinary bladder structure / Unknown 08/03/2025 3:00 PM EDT 08/04/2025 11:39 AM EDT us Yong Dodson MD LAB URINE ORDERABLES Final Resul t Performing Organization Address City/[facility]/ZIP Co de Phone Number [facility] [address] [place] [address], [place] [phone] documented in this encounter Visit Diagnoses Diagnosis Chronic kidney disease, stage 3a (CMS/HCC V24, CMS/HCC V28) Altered mental status, unspecified documented in this encounter Care Teams Ict Support And Test Engineers Relationship Specialty Start Date End Date Yong Dodson MD [address] [facility] [address] [place], [phone] PCP - General Family Medicine 07/25/25 documented as of this encounter
== END 2025-10-27 15:33 | disposition home or self-care (01) ==
LOC: HO.HPS 14:43
PROVIDERS: PCP Nurse Practitioner Gerontology; Visit Provider Nurse Practitioner Family
DX: J44.9 Chronic obstructive pulmonary disease, unspecified (principal); J43.9 Emphysema, unspecified; Z87.09 Personal history of other diseases of the respiratory system; R91.1 Solitary pulmonary nodule
CPT/HCPCS: 99214

== ENCOUNTER → 2025-10-27 14:43 | Outpatient (BNVA) | payer MEDICARE, SELFPAY | PROVIDERS: PCP Nurse Practitioner Gerontology; Visit Provider Nurse Practitioner Family | DX: J44.9 Chronic obstructive pulmonary disease, unspecified (principal); J43.9 Emphysema, unspecified; R91.1 Solitary pulmonary nodule; Z87.891 Personal history of nicotine dependence; Z99.89 Dependence on other enabling machines and devices; Z79.51 Long term (current) use of inhaled steroids; Z87.09 Personal history of other diseases of the respiratory system | CPT/HCPCS: 99212 ==

== ENCOUNTER 2025-10-28 14:37 | Outpatient (AMB) | payer MEDICARE, SELFPAY ==
--- NOTE | 2025-10-28 15:09 | MHC.OFFVIS ---
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 Required: No Accompanied by: Daughter Allergies adhesive tape Allergy (Mild, Verified 10/28/25 15:14) Unknown bee pollen (bee stings) Allergy (Mild, Verified 10/28/25 15:14) Swelling oxycodone (OXYCODONE) Allergy (Mild, Verified 10/28/25 15:14) ITCHING, itchy prednisone Allergy (Verified 10/28/25 15:14) Unknown hydromorphone (From DILAUDID) Adverse Reaction (Mild, Verified 10/28/25 15:14) ITCHING Medication List - Last Reconciled 10/28/25 by Eugenio Lu NP albuterol sulfate 90 mcg/actuation 2 puffs inhalation Q4-6H PRN amoxicillin-pot clavulanate 875-125 mg 1 tab PO Q12H aspirin 81 mg PO DAILY atorvastatin 40 mg PO BEDTIME clopidogrel 75 mg PO DAILY docusate sodium (Colace) 100 mg PO BID PRN empagliflozin 10 mg PO DAILY ezetimibe 10 mg PO BEDTIME fluoxetine 30 mg PO DAILY fluticasone propion-salmeterol 230-21 mcg/actuation (Advair HFA) 2 puffs inhalation Q12H fluticasone propionate 50 mcg/actuation 1 spray intranasal DAILY PRN furosemide (Lasix) 20 mg PO DAILY inhalational spacing device (Aerochamber Plus Z Stat spacer) As directed insulin glargine (Basaglar KwikPen U-100 Insulin) 24 units subcut BEDTIME ipratropium-albuterol 0.5 mg-3 mg(2.5 mg base)/3 mL 3 mL inhalation BID losartan 100 mg PO ONCE metformin 500 mg PO BIDWM metoprolol tartrate 100 mg PO BID oxybutynin chloride 10 mg PO BEDTIME ropinirole 1 mg PO BEDTIME tiotropium bromide 2.5 mcg/actuation (Spiriva Respimat) 2 puffs inhalation DAILY vit C,H-Lx-jthgy-lutein-zeaxan 250-90-40-1 mg (PreserVision AREDS-2) 1 tab PO BID HPI Comments Details: This is a 79-year-old female patient coming in for a follow-up visit, accompanied by her daughter. Patient with a history of coronary artery disease with prior stents to LAD and LCX in 2021, CKD, COPD on home O2, hypertension, and hyperlipidemia. Patient was last seen a month ago for hospital discharge follow-up during which time patient was noted to be short of breath with diffuse STT wave abnormality and given her elevated pro BNP, patient underwent a echocardiogram. At that time we also increased her Lasix to 40 mg. Today, patient is reporting feeling well overall however patient's Lasix was decreased to 20 mg daily by PCP for increased levels of creatinine. Patient does report intermittent shortness of breath for which she saw pulmonology yesterday where she was confirmed for 2 L at rest and 3 L with exertion for oxygen supplement. Patient is otherwise denying any exertional chest pain, palpitations, orthopnea, PND, leg edema, presyncope or syncope. Patient is reporting compliance with all medications. [facility] Medical History Stenosis of left subclavian artery Multiple falls Macular degeneration Overactive bladder Chest tightness Abnormal nuclear stress test Cataract HAYDEE on CPAP Mild anemia Hypercholesterolemia Resting tremor Osteoarthritis Unsteady gait Vertigo Sleep apnea Diabetic retinopathy Hiatal hernia Depression COPD (chronic obstructive pulmonary disease) CKD (chronic kidney disease) Orthostatic hypotension NSTEMI (non-ST elevated myocardial infarction) Syncope HLD (hyperlipidemia) CAD (coronary artery disease) High cholesterol Diabetes Heart attack Stroke Surgical History Status post cardiac catheterization History of cataract extraction Hx of colonoscopy Hx of vaginal hysterectomy Stented coronary artery History of cardiac catheterization Family History Father CVD (cardiovascular disease) Mother Brain aneurysm Social History Household Members: Significant Other Housing: Apartment Are you a primary primary care physician to a significant other at home: No Do you presently have visiting nurse or other home services: Yes Alcohol intake: never Patient Tobacco Use Status: Former Tobacco user Tobacco use type: Cigarette Years Smoked: 50 e-Cigarette/Vaping Use: Former Use Second Hand Smoke Exposure: No Advance Directives Date on File: 01/18/23 service: No Current occupational status: retired Review of Systems Const Denies daytime sleepiness, Denies difficulty sleeping, Denies snoring, Denies stops breathing during sleep and Denies weakness Card Denies chest pain, Denies rapid heart rate, Denies irregular heart rhythm, Denies claudication, Denies leg edema, Denies lightheadedness, Denies palpitations, Denies dyspnea, Denies dyspnea on exertion, Denies orthopnea, Denies paroxysmal nocturnal dyspnea and Denies slow heart rate Resp Denies cough, Denies dyspnea, Denies dyspnea on exertion and Denies snoring GI Reports no additional complaints, Denies hematochezia, Denies change in stool character and Denies dyspepsia Musc Denies abnormal gait, Denies muscle weakness and Denies numbness Neuro Denies abnormal gait, Denies numbness and Denies weakness Endo Denies palpitations Physical Exam Vital Signs: Last Vital Signs Pulse 66 10/28/25 15:10 BP 112/58 L 10/28/25 15:10 Const General: cooperative, healthy appearing, comfortable and no acute distress Orientation/consciousness: patient oriented x3 HEENT Head: Yes normal to inspection Neck Neck: Yes normal visual inspection, Yes trachea midline and Yes supple Chest Chest palpation & inspection: normal inspection of the chest Resp Other: On continuous 2L O2 supplement Effort & Inspection: normal respiratory effort Auscultation: clear to auscultation bilaterally, no crackles, no rales, no rhonchi and no wheezes Cardio Jugular venous distension: no JVD Palpation: normal PMI Rate: tachycardic Rhythm: regular rhythm Heart sounds: S1 normal heart sound present, S2 normal heart sound present, no click, no gallops, no murmurs and no rubs Peripheral pulses: Peripheral pulses 2+ throughout GI Inspection: Yes normal to inspection Palpation (GI): Soft to palpation Auscultation: normal bowel sounds Skin General skin exam: no rashes or lesions noted Neuro General: patient oriented x3 Extrem General: No no pedal edema and No calf tenderness Psych Appearance: grossly normal Mental Status: mental status grossly normal Speech and movement: Normal speech and movement present Assessment & Plan Assessment & Plan (1) CAD (coronary artery disease): Code(s): I25.10 - Atherosclerotic heart disease of [place] coronary artery without angina pectoris Category: Medical Plan: History of coronary artery disease with prior PCI to LAD and LCX in 2021. Given her ongoing shortness of breath, abnormal EKG, and elevated proBNP patient underwent an echocardiogram on 09/26/2025 that showed low normal LV systolic function with the ejection fraction between 50-55% with impaired relaxation filling pattern and elevated filling pressures, mild early aortic stenosis, mitral annular calcification, and hypokinetic basal inferior, basal inferoseptal, and basal inferolateral segments. Given above finding, we we will proceed with a diagnostic cardiac catheterization to assess for coronary artery disease and stent patency. The procedure along with its indications, risks, and benefits was thoroughly discussed with the patient and her daughter. Patient agreeable with the plan. Continue with aspirin and Plavix therapy. Continue statin and Zetia therapy. (2) Dyspnea: Code(s): R06.00 - Dyspnea, unspecified Category: Medical Plan: Clinically euvolemic and stable. Continue low-dose Lasix, Leonardo's losartan, and metoprolol therapy. Discussed signs and symptoms to watch for with heart failure. Advised on low-salt diet, daily weight monitoring, and compression socks as needed. (3) COPD (chronic obstructive pulmonary disease): Code(s): J44.9 - Chronic obstructive pulmonary disease, unspecified Category: Medical Plan: On continuous home O2 supplement. Followed by pulmonology. (4) HLD (hyperlipidemia): Code(s): E78.5 - Hyperlipidemia, unspecified Category: Medical Plan: Continue high-dose statin and Zetia therapy. LDL goal less than 70. (5) Hypertension: Code(s): I10 - Essential (primary) hypertension Category: Medical Plan: Blood pressure today is stable. Advised monitoring blood pressures at home with a goal less than 130/80. Advised on low-salt diet. Advised on heart healthy diet, med compliance, and aggressive management of vascular risk factors. Follow up after cardiac catheterization. In the interim, patient will call the office with any concerns or change in symptoms. Advised to seek ER care in case of exertional symptoms not resolve with rest. This note was generated using voice recognition software. While every effort has been made to ensure accuracy and proper paving crew foreman, there may be occasional errors that could affect the content or meaning of the described symptoms. Orders: Orders Complete Blood Count no Diff Today I25.10 - Atherosclerotic heart disease of [place] coronary artery without angina pectoris Prothrombin Time INR Today I25.10 - Atherosclerotic heart disease of [place] coronary artery without angina pectoris Cardiac Cath LT w PCI Today I25.10 - Atherosclerotic heart disease of [place] coronary artery without angina pectoris, R93.1 - Abnormal findings on diagnostic imaging of heart and coronary circulation Coding Level of Care Code Est Pt Level 4 (19256) Complex visit Add On G2211 Diagnoses CAD (coronary artery disease) I25.10 Dyspnea R06.00 COPD (chronic obstructive pulmonary disease) J44.9 HLD (hyperlipidemia) E78.5 Hypertension I10 Time Spent (min) 34 Comment Time spent in reviewing the chart, test results, assessment, counseling and documentation.
[2025-10-28 15:10] VITALS: BP 112/58; PULSE 66
--- OUTSIDE RECORDS SUMMARY | 2025-10-28 20:32 | XMS_ITS | Encounter Summary ---
Author Organization [facility] Address [address] [place] [address] Care Team Providers Care Bilingual Operator Name Role Phone Yong Dodson MD Primary Care Provider [phone] Encounter Details Date Type Department Care Team (Late st Contact Info) Description 09/15/2025 Lab Requisition [facility] - Main Lab [address] [facility] [place] [address] Mohit Willis MD [address] [place], [place] [id number] Chronic obstructive pulmonary disease, unspecified (CMS/HCC V24, [...] Lavender tube (09/15/2025 6:28 AM EDT) Pathologist [facility] Extra Tube Hold for add-ons. 09/15/2025 12:01 PM EDT [facility] Comment:Auto resulted. Blood Venous blood specimen / Unknown Venipuncture / Unknown 09/15/2025 6:28 AM EDT 09/15/2025 10:15 AM EDT us Mohit Willis MD LAB BLOOD ORDERABLES Final Resul t [facility] [address] [place] [address], * (ABNORMAL) CBC auto differential (09/15/2025 6:28 AM EDT) [facility] WBC 19.4(H) 4.8 - 10.8 K/mcL LAB HEMETOLOGY METHOD 09/15/2025 11:13 AM EDT [facility] RBC 3.10(L) 3.80 - 4.80 M/mcL LAB HEMETOLOGY METHOD 09/15/2025 11:13 AM EDT [facility] Hemoglobin 9.4(L) 11.5 - 16.0 g/dL LAB HEMETOLOGY METHOD 09/15/2025 11:13 AM EDT [facility] Hematocrit 30.5(L) 35.0 - 47.0 [...] 09/15/2025 11:[address] [facility] Eosinophils Relative 0.6 % LAB HEMETOLOGY METHOD 09/15/2025 11:[address] [facility] Basophils Relative 0.3 % LAB [...] 09/15/2025 11:13 AM EDT [facility] Monocytes Absolute 0.95 0.20 - [...] 09/15/2025 11:[address] [facility] Blood Venous blood specimen / Unknown Venipuncture / Unknown 09/15/2025 6:28 AM EDT 09/15/2025 10:14 AM EDT us Mohit Willis MD LAB BLOOD ORDERABLES Final Resul t [facility] [address] [place] [address], * (ABNORMAL) Comprehensive metabolic panel (09/15/2025 6:28 AM EDT) [facility] Sodium 134 133 - 145 mmol/L LAB CHEMISTRY METHOD 09/15/2025 1:[address] [facility] Potassium 4.7 3.5 - 5.5 mmol/L LAB CHEMISTRY METHOD 09/15/2025 1:[address] [facility] Chloride 99 96 - 110 mmol/L LAB CHEMISTRY METHOD 09/15/2025 1:[address] [facility] CO2 23 21 - 32 mmol/L LAB CHEMISTRY METHOD 09/15/2025 1:[address] [facility] Anion Gap 12(H) 3 - 11 LAB CHEMISTRY METHOD 09/15/2025 1:[address] [facility] Glucose 159(H) 70 - 100 mg/dL LAB CHEMISTRY METHOD 09/15/2025 1:[address] [facility] BUN 39(H) 5 - 25 mg/dL LAB CHEMISTRY METHOD 09/15/2025 1:[address] [facility] Creatinine 2.00(H) 0.50 - 1.10 mg/dL LAB CHEMISTRY METHOD 09/15/2025 1:[address] [facility] eGFR 25(L) >=60 mL/min/1. 73m2 LAB CHEMISTRY METHOD 09/15/2025 1:[address] [facility] Comment:Calculation based on the Chronic Kidney Disease Epidemiology Collaboration (CKD-EPI) equation refit without adjustment for race. BUN/Creatinine Ratio 19.5 LAB CHEMISTRY METHOD 09/15/2025 1:[address] [facility] Calcium 8.9 8.5 - 10.5 mg/dL LAB CHEMISTRY METHOD 09/15/2025 1:[address] [facility] AST (SGOT) 16 10 - 42 unit/L LAB CHEMISTRY METHOD 09/15/2025 1:[address] [facility] ALT (SGPT) 16 10 - 60 unit/L LAB CHEMISTRY METHOD 09/15/2025 1:[address] [facility] Alkaline Phosphatase 129(H) 42 - 121 unit/L LAB CHEMISTRY METHOD 09/15/2025 1:06 PM EDT [facility] Total Protein 5.9(L) 6.0 - 8.0 g/dL LAB CHEMISTRY METHOD 09/15/2025 1:06 PM EDT [facility] Albumin 2.4(L) 3.2 - 5.0 g/dL LAB CHEMISTRY METHOD 09/15/2025 1:06 PM EDT [facility] Total Bilirubin 0.7 0.0 - 1.4 mg/dL LAB CHEMISTRY METHOD 09/15/2025 1:06 PM EDT [facility] Blood Venous blood specimen / Unknown Venipuncture / Unknown 09/15/2025 6:28 AM EDT 09/15/2025 10:14 AM EDT us Mohit Willis MD LAB BLOOD ORDERABLES Final Resul t [facility] [address] [place] [address], documented in this encounter Visit Diagnoses Diagnosis Chronic obstructive pulmonary disease, unspecified (CMS/HCC V24, CMS/HCC V28) Heart failure, unspecified (CMS/HCC V24, CMS/HCC V28) Heart failure, unspecified documented in this encounter Care Teams Bilingual Operator Relationship Specialty Start Date End Date Yong Dodson MD [address] [place] [address], [phone] PCP - General Family Medicine 07/25/25 documented as of this encounter
--- OUTSIDE RECORDS SUMMARY | 2025-10-28 20:32 | XMS_ITS | Patient Health Record ---
Author Organization [facility] Address [address] [place] [address] Care Team Providers Care Hand Stitcher Name Role Phone Nahid Waterman MD Primary Care Provider Deni Chacon Unavailable [phone] Allergies Allergen (clinical drug ingredient) Drug/Non Drug [...] Test Name Order Date Glucose Fasting 08/17/2015 11861-[id number] NAIL, 6 OR MORE 11/09/2015 61855-XNMVBOI NAIL, 6 OR MORE 08/17/2015 79078-GRUFSUR NAIL, 6 OR MORE 02/11/2016 57955-VXPBRZS NAIL, 6 OR MORE 12/19/2016 42464-VZNZVLY NAIL, 6 OR MORE 03/16/2017 17180-KGZGWLN NAIL, 6 OR MORE 06/22/2017 51010-NMEQYBO NAIL, 6 OR MORE 09/21/2017 82677-FETMEFM NAIL, 6 OR MORE 12/21/2017 25772-VTOYFTY NAIL, 6 OR MORE 03/21/2018 90105-UUZGFMK NAIL, 6 OR MORE 10/03/2018 98873-Orjajviy Plate 08/17/2015 72110-TDHH SKIN LESIONS, OVER 4 12/19/19 17 25156-WYJK SKIN LESIONS, OVER 4 03/21/20 18 75009-BQTF SKIN LESIONS, OVER 4 03/16/20 17 63388-PPTO SKIN LESIONS, OVER 4 06/22/20 17 02087-UYEK SKIN LESIONS, OVER 4 10/03/20 18 17506-EEZI SKIN LESIONS, 2 TO 4 08/19/20 19 40128-NRUT SKIN LESIONS, 2 TO 4 01/20/20 20 04641-ONYU SKIN LESIONS, 2 TO 4 05/11/20 20 49069-KFMC SKIN LESIONS, 2 TO 4 08/24/20 20 17119-TSCW SKIN LESIONS, 2 TO 4 09/21/20 17 74585-AOGV SKIN LESIONS, 2 TO 4 12/21/19 18 71900-RNHO SKIN LESIONS, 2 TO 4 02/11/20 16 62231-XKIF SKIN LESIONS, 2 TO 4 08/17/20 15 70823-OHMN SKIN LESIONS, 2 TO 4 11/09/20 15 78686-SQAHKZEV OF HEMATOMA/FLUID 019 Insurance Providers Payer Name Payer Address Payer Phone Subscriber Number Group Number Insured Name Patient Relationship to Insured Coverage Start Date Coverage End Date Medicare National [employer] [address] [place] [address] [id number] Lilli Yepez Self - patient is the insured 3 Medical (General) History Medical History History ICD Code Anemia Arthritis Cholesterol Diabetic Diverticulosis Headaches Migraines High blood pressure Lung disease Macular degeneration Stroke Measles Chicken pox Surgical History Surgery Date(Month/Year) hysterectomy 30 years ago cyst removal 30 years ago section 1974 Hospitalization History Reason Date(Month/Year) [facility]- stent put in on right side 12/09 [facility]Broken arm- [facility]- 3 months 05/05/2019 [facility] - Heart attack - 2 stents put in on left side 11/07
--- OUTSIDE RECORDS SUMMARY | 2025-10-28 20:33 | XMS_ITS | Encounter Summary ---
Author Organization [facility] Address [address] [place] [address] Care Team Providers Care Timber Hewer Name Role Phone Yong Dodson MD Primary Care Provider [phone] Encounter Details Date Type Department Care Team (Late st Contact Info) Description 09/24/2025 Lab Requisition [facility] - Main Lab [address] [facility] [place] [address] Mohit Willis MD [address] [place], [place] [id number] Heart failure, unspecified (CMS/HCC V24, CMS/HCC V28); [...] Hold for add-ons. 09/24/2025 1:[address] [facility] Comment:Auto resulted. Blood Venous blood specimen / Unknown Venipuncture / Unknown 09/24/2025 7:18 AM EST 09/24/2025 11:36 AM EST us Mohit Willis MD LAB BLOOD ORDERABLES Final Resul t [facility] [address] [place] [address], * (ABNORMAL) Comprehensive metabolic panel (09/24/2025 7:18 AM EST) [facility] Signature Sodium 137 133 - 145 mmol/L LAB CHEMISTRY METHOD 09/24/2025 12:[address] [facility] Potassium 4.3 3.5 - 5.5 mmol/L LAB CHEMISTRY METHOD 09/24/2025 12:[address] [facility] Chloride 102 96 - 110 mmol/L LAB CHEMISTRY METHOD 09/24/2025 12:[address] [facility] CO2 28 21 - 32 mmol/L LAB CHEMISTRY METHOD 09/24/2025 12:[address] [facility] Anion Gap 7 3 - 11 LAB CHEMISTRY METHOD 09/24/2025 12:[address] [facility] Glucose 199(H) 70 - 100 mg/dL LAB CHEMISTRY METHOD 09/24/2025 12:[address] [facility] BUN 22 5 - 25 mg/dL LAB CHEMISTRY METHOD 09/24/2025 12:[address] [facility] Creatinine 1.11(H) 0.50 - 1.10 mg/dL LAB CHEMISTRY METHOD 09/24/2025 12:[address] [facility] eGFR 51(L) >=60 mL/min/1. 73m2 LAB CHEMISTRY METHOD 09/24/2025 12:[address] [facility] Comment:Calculation based on the Chronic Kidney Disease Epidemiology Collaboration (CKD-EPI) equation refit without adjustment for race. BUN/Creatinine Ratio 19.8 LAB CHEMISTRY METHOD 09/24/2025 12:[address] [facility] Calcium 9.0 8.5 - 10.5 mg/dL LAB CHEMISTRY METHOD 09/24/2025 12:[address] [facility] AST (SGOT) 8(L) 10 - 42 unit/L LAB CHEMISTRY METHOD 09/24/2025 12:[address] [facility] ALT (SGPT) 18 10 - 60 unit/L LAB CHEMISTRY METHOD 09/24/2025 12:[address] [facility] Alkaline Phosphatase 116 42 - 121 unit/L LAB CHEMISTRY METHOD 09/24/2025 12:[address] [facility] Total Protein 6.1 6.0 - 8.0 g/dL LAB CHEMISTRY METHOD 09/24/2025 12:[address] [facility] Albumin 2.6(L) 3.2 - 5.0 g/dL LAB CHEMISTRY METHOD 09/24/2025 12:[address] [facility] Total Bilirubin 0.7 0.0 - 1.4 mg/dL LAB CHEMISTRY METHOD 09/24/2025 12:[address] [facility] Blood Venous blood specimen / Unknown Venipuncture / Unknown 09/24/2025 7:18 AM EST 09/24/2025 10:26 AM EST us Mohit Willis MD LAB BLOOD ORDERABLES Final Resul t [facility] [address] [place] [address], * (ABNORMAL) Complete blood count (09/24/2025 7:18 AM EST) WBC 16.7(H) 4.8 - 10.8 K/mcL LAB HEMETOLOGY METHOD 09/24/2025 12:[address] [facility] RBC 3.80 3.80 - 4.80 M/mcL LAB HEMETOLOGY METHOD 09/24/2025 12:[address] [facility] Hemoglobin 11.1(L) 11.5 - 16.0 g/dL LAB HEMETOLOGY METHOD 09/24/2025 12:[address] [facility] Hematocrit 36.0 35.0 - 47.0 % LAB HEMETOLOGY METHOD 09/24/2025 12:[address] [facility] MCV 94.7 79.0 - 98.0 FL LAB HEMETOLOGY METHOD 09/24/2025 12:[address] [facility] MCH 29.2 27.0 - 32.0 pcg LAB HEMETOLOGY METHOD 09/24/2025 12:[address] [facility] MCHC 30.8(L) 32.0 - 37.0 g/dL LAB HEMETOLOGY METHOD 09/24/2025 12:[address] [facility] RDW 15.4(H) 11.0 - 15.0 % LAB HEMETOLOGY METHOD 09/24/2025 12:[address] [facility] Platelets 272 130 - 400 K/mcL LAB HEMETOLOGY METHOD 09/24/2025 12:[address] [facility] MPV 10.5 7.0 - 11.0 FL LAB HEMETOLOGY METHOD 09/24/2025 12:[address] [facility] NRBC 0.0 <1.0 % LAB HEMETOLOGY METHOD 09/24/2025 12:[address] [facility] NRBC Absolute 0.00 <0.10 K/mcL LAB HEMETOLOGY METHOD 09/24/2025 12:[address] [facility] Blood Venous blood specimen / Unknown Venipuncture / Unknown 09/24/2025 7:18 AM EST 09/24/2025 10:26 AM EST us Mohit Willis MD LAB BLOOD ORDERABLES Final Resul t [facility] [address] [place] [address], documented in this encounter Visit Diagnoses Diagnosis [...] breath documented in this encounter Care Teams Timber Hewer Relationship Specialty Start Date End Date Yong Dodson MD [address] [place] [address], [phone] PCP - General Family Medicine 07/25/25 documented as of this encounter
--- OUTSIDE RECORDS SUMMARY | 2025-10-28 20:33 | XMS_ITS | Encounter Summary ---
Author Organization [facility] Address [address] [place] [address] Care Team Providers Care Shoulder Boner Name Role Phone Yong Dodson MD Primary Care Provider [phone] Encounter Details Date Type Department Care Team (Late st Contact Info) Description 08/04/2025 Lab Requisition [facility] - Main Lab [address] [facility] [place] [place] [address] Yong Dodson MD [address] [place] [address] [address] [place], [phone] Chronic kidney disease, stage 3a (CMS/HCC [...] and culture (08/03/2025 3:00 PM EDT) Specific [place] Urine 1.020 1.003 - 1.030 LAB URINALYSIS [...] - AUTOMATED METHOD 08/04/2025 11:52 AM EDT [facility] Squamous Epithelial, Urine 30 0 - 60 /LPF LAB URINALYSIS - AUTOMATED METHOD 08/04/2025 11:52 AM EDT [facility] Bacteria, Urine Negative Negative /HPF LAB URINALYSIS - AUTOMATED METHOD 08/04/2025 11:52 AM EDT [facility] Hyaline Casts, Urine 1.6 0 - 3 /LPF LAB URINALYSIS - AUTOMATED METHOD 08/04/2025 11:52 AM EDT [facility] Urine Urinary bladder structure / Unknown 08/03/2025 3:00 PM EDT 08/04/2025 11:39 AM EDT us Yong Dodson MD LAB URINE ORDERABLES Final Resul t Performing Organization Address City/[facility]/ZIP Co de Phone Number [facility] [address] [place] [address], [place] [phone] * Mazariegos urine culture tube (08/03/2025 3:00 PM EDT) Extra Tube Hold for add-ons. 08/04/2025 1:01 PM EDT [facility] Comment:Auto resulted. Urine Urinary bladder structure / Unknown 08/03/2025 3:00 PM EDT 08/04/2025 11:39 AM EDT us Yong Dodson MD LAB URINE ORDERABLES Final Resul t Performing Organization Address City/[facility]/ZIP Co de Phone Number [facility] [address] [place] [address], [place] [phone] documented in this encounter Visit Diagnoses Diagnosis Chronic kidney disease, stage 3a (CMS/HCC V24, CMS/HCC V28) Altered mental status, unspecified documented in this encounter Care Teams Shoulder Boner Relationship Specialty Start Date End Date Yong Dodson MD 38 [facility] [address] [place], [phone] PCP - General Family Medicine 07/25/25 documented as of this encounter
--- OUTSIDE RECORDS SUMMARY | 2025-10-28 20:33 | XMS_ITS | Encounter Summary ---
Author Organization [facility] Address [address] [place] [address] Care Team Providers Care Director Part Name Role Phone Yong Dodson MD Primary Care Provider [phone] Encounter Details Date Type Department Care Team (Late st Contact Info) Description 08/08/2025 Lab Requisition [facility] - Main Lab [address] [facility] [place] [address] Yong Dodson MD [address] [place] [address] [address] [place], [phone] Chronic obstructive pulmonary disease, unspecified (CMS/HCC [...] V28) documented in this encounter Care Teams Director Part Relationship Specialty Start Date End Date Yong Dodson MD [address] [place] [address] [address] [place], [phone] PCP - General Family Medicine 07/25/25 documented as of this encounter
--- OUTSIDE RECORDS SUMMARY | 2025-10-28 20:33 | XMS_ITS | Clinical Summary ---
Author Organization [facility] Address [address] [place] [address] Phone Care Team Providers Care Brazing Machine Operator Helper Name Role Phone Pcp, Unknown Primary Care Provider Migdalia Wing MD Unavailable [phone] Social History Tobacco Use Types Packs/Day [...] & B MEDICARE PART A & B [facility] PART A & B MEDICARE PART A & B MEDICARE PART A & B MEDICARE PART A & B MEDICARE PART A & B MEDICARE PART A & B MEDICARE PART A & B Care Teams Brazing Machine Operator Helper Relationship Specialty Start Date End Date Pcp, Unknown PCP - General 05/24/24 Migdalia Barahona MD [address] [place] [address] [email or web address] Internal Medicine 05/24/24 Additional Source Comments The information contained in this document represents components of the legal health record. It is not the complete legal health record.[facility]
--- OUTSIDE RECORDS SUMMARY | 2025-10-28 20:33 | XMS_ITS | Encounter Summary ---
Author Organization [facility] Address [address] [place] [address] Care Team Providers Care Escrow Agent Name Role Phone Yong Dodson MD Primary Care Provider [phone] Encounter Details Date Type Department Care Team (Late st Contact Info) Description 07/26/2025 Lab Requisition [facility] - Main Lab [address] [place] [address] Yong Dodson MD 38 [facility] [address] [place], [address] Chronic obstructive pulmonary disease, unspecified (CMS/HCC [...] LAB CHEMISTRY METHOD 07/28/2025 12:29 PM EDT [facility] Potassium 4.4 3.5 - 5.5 [...] t [facility] [address] [place] [address], [place] [phone] * (ABNORMAL) Complete blood count (07/28/2025 6:20 [...] LAB HEMETOLOGY METHOD 07/28/2025 11:28 AM EDT [facility] NRBC Absolute 0.00 <0.10 K/mcL LAB HEMETOLOGY METHOD 07/28/2025 11:28 AM EDT [facility] Blood Venous blood specimen / Unknown Venipuncture / Unknown 07/28/2025 6:20 AM EDT 07/28/2025 10:56 AM EDT us Yong Dodson MD LAB BLOOD ORDERABLES Final Resul t [facility] [address] [place] [address], documented in this encounter Visit Diagnoses Diagnosis Chronic obstructive pulmonary disease, unspecified (CMS/HCC V24, CMS/HCC V28) documented in this encounter Care Teams Escrow Agent Relationship Specialty Start Date End Date Yong Dodson MD [address] [place] [address], [phone] PCP - General Family Medicine 07/25/25 documented as of this encounter
--- OUTSIDE RECORDS SUMMARY | 2025-10-28 20:33 | XMS_ITS | Encounter Summary ---
Author Organization [facility] Address [address] [place] [address] Care Team Providers Care Ambulance Assistant Name Role Phone Yong Dodson MD Primary Care Provider Encounter Details Date Type Department Care Team (Late st Contact Info) Description 08/18/2025 Lab Requisition [facility] - Main Lab [address] [place] [address] Yong Dodson MD 38 [facility] [address] [place], [phone] Unspecified infectious disease Social History Tobacco [...] LAB HEMETOLOGY METHOD 08/18/2025 12:11 PM EDT [facility] RBC 3.60(L) 3.80 - 4.80 M/mcL LAB HEMETOLOGY METHOD 08/18/2025 12:11 PM EDT [facility] Hemoglobin 10.6(L) 11.5 - 16.0 g/dL LAB HEMETOLOGY METHOD 08/18/2025 12:11 PM EDT [facility] Hematocrit 34.6(L) 35.0 - 47.0 % LAB HEMETOLOGY METHOD 08/18/2025 12:11 PM EDT [facility] MCV 96.1 79.0 - 98.0 FL LAB HEMETOLOGY METHOD 08/18/2025 12:11 PM EDT [facility] MCH 29.4 27.0 - 32.0 pcg LAB HEMETOLOGY METHOD 08/18/2025 12:11 PM EDT [facility] MCHC 30.6(L) 32.0 - 37.0 g/dL LAB HEMETOLOGY METHOD 08/18/2025 12:11 PM EDT [facility] RDW 14.2 11.0 - 15.0 % LAB HEMETOLOGY METHOD 08/18/2025 12:11 PM EDT [facility] Platelets 224 130 - 400 K/mcL LAB HEMETOLOGY METHOD 08/18/2025 12:11 PM EDT [facility] MPV 11.4(H) 7.0 - 11.0 FL LAB HEMETOLOGY METHOD 08/18/2025 12:11 PM EDT [facility] NRBC 0.0 <1.0 % LAB HEMETOLOGY METHOD 08/18/2025 12:11 PM EDT [facility] NRBC Absolute 0.00 <0.10 K/mcL LAB HEMETOLOGY METHOD 08/18/2025 12:11 PM EDT [facility] Blood Venous blood specimen / Unknown Venipuncture / Unknown 08/18/2025 6:33 AM EDT 08/18/2025 11:01 AM EDT us Yong Dodson MD LAB BLOOD ORDERABLES Final Resul t [facility] [address] [place], [place] [address] [phone] documented in this encounter Visit Diagnoses Diagnosis Unspecified infectious disease documented in this encounter Care Teams Ambulance Assistant Relationship Specialty Start Date End Date Yong Dodson MD [address] [place] [address], [phone] PCP - General Family Medicine 07/25/25 documented as of this encounter
--- OUTSIDE RECORDS SUMMARY | 2025-10-28 20:33 | XMS_ITS | Encounter Summary ---
Author Organization [facility] Address [address] [place] [address] Care Team Providers Care Training Specialist Name Role Phone Yong Dodson MD Primary Care Provider [phone] Encounter Details Date Type Department Care Team (Late st Contact Info) Description 07/25/[address] [facility] - Main Lab [address] [place] [address] Yong Dodson MD 38 [facility] [address] [place], [phone] Chronic obstructive pulmonary disease, unspecified (CMS/HCC [...] LAB CHEMISTRY METHOD 07/25/2025 9:28 AM EDT [facility] Potassium 4.6 3.5 - 5.5 mmol/L LAB CHEMISTRY METHOD 07/25/2025 9:28 AM [facility] Chloride 100 96 - 110 mmol/L LAB CHEMISTRY METHOD 07/25/2025 9:28 AM [facility] CO2 29 21 - 32 mmol/L LAB CHEMISTRY METHOD 07/25/2025 9:28 AM [facility] Anion Gap 6 3 - 11 LAB CHEMISTRY METHOD 07/25/2025 9:28 AM [facility] Glucose 199(H) 70 - 100 mg/dL LAB CHEMISTRY METHOD 07/25/2025 9:28 AM [facility] BUN 31(H) 5 - 25 mg/dL LAB CHEMISTRY METHOD 07/25/2025 9:28 AM [facility] Creatinine 1.37(H) 0.50 - 1.10 mg/dL LAB CHEMISTRY METHOD 07/25/2025 9:28 AM [facility] eGFR 39(L) >=60 mL/min/1. 73m2 LAB CHEMISTRY METHOD 07/25/2025 9:28 AM [facility] Comment:Calculation based on the Chronic Kidney Disease Epidemiology Collaboration (CKD-EPI) equation refit without adjustment for race. BUN/Creatinine Ratio 22.6 LAB CHEMISTRY METHOD 07/25/2025 9:28 AM [facility] Calcium 9.4 8.5 - 10.5 mg/dL LAB CHEMISTRY METHOD 07/25/2025 9:28 AM [facility] AST (SGOT) 29 10 - 42 unit/L LAB CHEMISTRY METHOD 07/25/2025 9:28 AM [facility] ALT (SGPT) 11 10 - 60 unit/L LAB CHEMISTRY METHOD 07/25/2025 9:28 AM [facility] Alkaline Phosphatase 105 42 - 121 unit/L LAB CHEMISTRY METHOD 07/25/2025 9:28 AM [facility] Total Protein 5.9(L) 6.0 - 8.0 g/dL LAB CHEMISTRY METHOD 07/25/2025 9:[address] [facility] Albumin 2.7(L) 3.2 - 5.0 g/dL LAB CHEMISTRY METHOD 07/25/2025 9:[address] [facility] Total Bilirubin 0.5 0.0 - 1.4 mg/dL LAB CHEMISTRY METHOD 07/25/2025 9:[address] [facility] Blood Venous blood specimen / Unknown Venipuncture / Unknown 07/25/2025 5:24 AM EDT 07/25/2025 8:29 AM EDT us Yong Dodson MD LAB BLOOD ORDERABLES Final Resul t [facility] [address] [place] [address], * (ABNORMAL) Complete blood count (07/25/2025 5:24 AM EDT) WBC 10.7 4.8 - 10.8 K/mcL LAB HEMETOLOGY METHOD 07/25/2025 8:52 AM [facility] RBC 3.30(L) 3.80 - 4.80 M/mcL LAB HEMETOLOGY METHOD 07/25/2025 8:[address] [facility] Hemoglobin 9.9(L) 11.5 - 16.0 g/dL LAB HEMETOLOGY METHOD 07/25/2025 8:[address] [facility] Hematocrit 32.6(L) 35.0 - 47.0 % LAB HEMETOLOGY METHOD 07/25/2025 8:[address] [facility] MCV 97.6 79.0 - 98.0 FL LAB HEMETOLOGY METHOD 07/25/2025 8:[address] [facility] MCH 29.6 27.0 - 32.0 pcg LAB HEMETOLOGY METHOD 07/25/2025 8:[address] [facility] MCHC 30.4(L) 32.0 - 37.0 g/dL LAB HEMETOLOGY METHOD 07/25/2025 8:[address] [facility] RDW 14.5 11.0 - 15.0 % LAB HEMETOLOGY METHOD 07/25/2025 8:[address] [facility] Platelets 171 130 - 400 K/mcL LAB HEMETOLOGY METHOD 07/25/2025 8:[address] [facility] MPV 12.0(H) 7.0 - 11.0 FL LAB HEMETOLOGY METHOD 07/25/2025 8:[address] [facility] NRBC 0.0 <1.0 % LAB HEMETOLOGY METHOD 07/25/2025 8:[address] [facility] NRBC Absolute 0.00 <0.10 K/mcL LAB HEMETOLOGY METHOD 07/25/2025 8:[address] [facility] Blood Venous blood specimen / Unknown Venipuncture / Unknown 07/25/2025 5:24 AM EDT 07/25/2025 8:29 AM EDT us Yong Dodson MD LAB BLOOD ORDERABLES Final Resul t [facility] [address] [place] [address], documented in this encounter Visit Diagnoses Diagnosis Chronic obstructive pulmonary disease, unspecified (CMS/HCC V24, CMS/HCC V28) documented in this encounter Care Teams Training Specialist Relationship Specialty Start Date End Date Yong Dodson MD [address] [place] [address], [phone] PCP - General Family Medicine 07/25/25 documented as of this encounter
--- OUTSIDE RECORDS SUMMARY | 2025-10-28 20:33 | XMS_ITS | Encounter Summary ---
Author Organization [facility] Address [address] [place] [address] Care Team Providers Care Used Building Materials Yard Worker Name Role Phone Yong Dodson MD Primary Care Provider [phone] Encounter Details Date Type Department Care Team (Late st Contact Info) Description 08/02/2025 Lab Requisition [facility] - Main Lab [address] [facility] [place] [place] [address] Yong Dodson MD [address] [place] [address] [address] [place], [phone] Chronic kidney disease, stage 3a (CMS/HCC [...] * Lipase (08/02/2025 12:29 PM EDT) Pathologist [facility] Lipase 54 13 - 75 unit/L LAB CHEMISTRY METHOD 08/02/2025 1:34 PM EDT [facility] Blood Venous blood specimen / Unknown Venipuncture / Unknown 08/02/2025 12:29 PM EDT 08/02/2025 12:53 PM EDT Yong Dodson MD LAB BLOOD ORDERABLES Final Resul t Performing Organization Address City/[facility]/ZIP Co de Phone Number [facility] [address] [place] [address], [place] [phone] * Amylase (08/02/2025 12:29 PM EDT) [facility] Amylase 45 25 - 115 unit/L LAB CHEMISTRY METHOD 08/02/2025 1:34 PM EDT [facility] Blood Venous blood specimen / Unknown Venipuncture / Unknown 08/02/2025 12:29 PM EDT 08/02/2025 12:53 PM EDT Yong Dodson MD LAB BLOOD ORDERABLES Final Resul t Performing Organization Address City/[facility]/ZIP Co de Phone Number [facility] [address] [place] [address], [place] [phone] * (ABNORMAL) Comprehensive metabolic panel (08/02/2025 12:29 PM EDT) Pathologist [facility] Sodium 138 133 - 145 mmol/L LAB CHEMISTRY METHOD 08/02/2025 1:34 PM EDT [facility] Potassium 4.6 3.5 - 5.5 mmol/L LAB CHEMISTRY METHOD 08/02/2025 1:34 PM EDT [facility] Chloride 102 96 - 110 mmol/L LAB CHEMISTRY METHOD 08/02/2025 1:34 PM [facility] CO2 26 21 - 32 mmol/L LAB CHEMISTRY METHOD 08/02/2025 1:34 PM [facility] Anion Gap 10 3 - 11 LAB CHEMISTRY METHOD 08/02/2025 1:34 PM [facility] Glucose 294(H) 70 - 100 mg/dL LAB CHEMISTRY METHOD 08/02/2025 1:34 PM [facility] BUN 17 5 - 25 mg/dL LAB CHEMISTRY METHOD 08/02/2025 1:34 PM [facility] Creatinine 1.04 0.50 - 1.10 mg/dL LAB CHEMISTRY METHOD 08/02/2025 1:34 PM [facility] eGFR 55(L) >=60 mL/min/1. 73m2 LAB CHEMISTRY METHOD 08/02/2025 1:34 PM [facility] Comment:Calculation based on the Chronic Kidney Disease Epidemiology Collaboration (CKD-EPI) equation refit without adjustment for race. BUN/Creatinine Ratio 16.3 LAB CHEMISTRY METHOD 08/02/2025 1:34 PM [facility] Calcium 9.1 8.5 - 10.5 mg/dL LAB CHEMISTRY METHOD 08/02/2025 1:34 PM [facility] AST (SGOT) 15 10 - 42 unit/L LAB CHEMISTRY METHOD 08/02/2025 1:34 PM [facility] ALT (SGPT) 15 10 - 60 unit/L LAB CHEMISTRY METHOD 08/02/2025 1:34 PM [facility] Alkaline Phosphatase 119 42 - 121 unit/L LAB CHEMISTRY METHOD 08/02/2025 1:34 PM [facility] Total Protein 6.3 6.0 - 8.0 g/dL LAB CHEMISTRY METHOD 08/02/2025 1:34 PM [facility] Albumin 2.8(L) 3.2 - 5.0 g/dL LAB CHEMISTRY METHOD 08/02/2025 1:34 PM EDT [facility] Total Bilirubin 0.6 0.0 - 1.4 mg/dL LAB CHEMISTRY METHOD 08/02/2025 1:34 PM EDT [facility] Blood Venous blood specimen / Unknown Venipuncture / Unknown 08/02/2025 12:29 PM EDT 08/02/2025 12:53 PM EDT us Yong Dodson MD LAB BLOOD ORDERABLES Final Resul t [facility] [address] [place] [address], [place] [phone] * (ABNORMAL) Complete blood count (08/02/2025 12:29 PM EDT) WBC 12.1(H) 4.8 - 10.8 K/mcL LAB HEMETOLOGY METHOD 08/02/2025 1:30 PM EDT [facility] RBC 3.70(L) 3.80 - 4.80 M/mcL LAB HEMETOLOGY METHOD 08/02/2025 1:30 PM EDT [facility] Hemoglobin 11.0(L) 11.5 - 16.0 g/dL LAB HEMETOLOGY METHOD 08/02/2025 1:30 PM EDT [facility] Hematocrit 35.7 35.0 - 47.0 % LAB HEMETOLOGY METHOD 08/02/2025 1:30 PM EDT [facility] MCV 97.3 79.0 - 98.0 FL LAB HEMETOLOGY METHOD 08/02/2025 1:30 PM EDT [facility] MCH 30.0 27.0 - 32.0 pcg LAB HEMETOLOGY METHOD 08/02/2025 1:30 PM EDT [facility] MCHC 30.8(L) 32.0 - 37.0 g/dL LAB HEMETOLOGY METHOD 08/02/2025 1:30 PM EDT [facility] RDW 14.5 11.0 - 15.0 % LAB HEMETOLOGY METHOD 08/02/2025 1:30 PM EDT [facility] Platelets 267 130 - 400 K/mcL LAB HEMETOLOGY METHOD 08/02/2025 1:30 PM EDT [facility] MPV 10.9 7.0 - 11.0 FL LAB HEMETOLOGY METHOD 08/02/2025 1:30 PM EDT [facility] NRBC 0.0 <1.0 % LAB HEMETOLOGY METHOD 08/02/2025 1:30 PM EDT [facility] NRBC Absolute 0.00 <0.10 K/mcL LAB HEMETOLOGY METHOD 08/02/2025 1:30 PM EDT [facility] Blood Venous blood specimen / Unknown Venipuncture / Unknown 08/02/2025 12:29 PM EDT 08/02/2025 12:53 PM EDT us Yong Dodson MD LAB BLOOD ORDERABLES Final Resul t [facility] [address] [place] [address], documented in this encounter Visit Diagnoses Diagnosis Chronic kidney disease, stage 3a (CMS/HCC V24, CMS/HCC V28) documented in this encounter Care Teams Used Building Materials Yard Worker Relationship Specialty Start Date End Date Yong Dodson MD [address] [place] [address], [phone] PCP - General Family Medicine 07/25/25 documented as of this encounter
--- OUTSIDE RECORDS SUMMARY | 2025-10-28 20:33 | XMS_ITS | Encounter Summary ---
Author Organization [facility] Address [address] [place] [address] Care Team Providers Care Delivery Driver Assistant Name Role Phone Yong Dodson MD Primary Care Provider [phone] Encounter Details Date Type Department Care Team (Late st Contact Info) Description 09/16/2025 Lab Requisition [facility] - Main Lab [address] [facility] [place] [address] Mohit Willis MD [address] [place] [address] Altered mental status, unspecified Social History Tobacco [...] Enterococcus faecalis(A) NATHALIE 09/19/2025 8:38 AM EDT [facility] Comment: The organism value for this result has been updated. These results have been appended to the previously preliminary verified report. This is an edited result. Previous organism was Enterococcus species on 09/18/2025 at 1314 EDT. Culture, Urine >=100,000 CFU/mL Lactobacillus species(A) NATHALIE 09/19/2025 8:38 AM EDT [facility] Comment: The organism value for [...] MICROBIOLOGY - GENERAL ORDER ALLISON Final Result [facility] [address] [place] [address], * (ABNORMAL) Urinalysis with reflex microscopic and culture (09/15/2025 12:00 AM EDT) [facility] Specific [place] Urine 1.019 1.003 - 1.030 LAB URINALYSIS - AUTOMATED METHOD 09/16/2025 11:20 AM EDT [facility] pH, Urine 5.5 5.0 - 8.0 pH LAB URINALYSIS - AUTOMATED METHOD 09/16/2025 11:20 AM EDT [facility] Leukocytes, Urine Large(A) Negative LAB URINALYSIS - AUTOMATED METHOD 09/16/2025 11:20 AM [facility] Nitrite, Urine Negative Negative LAB URINALYSIS - AUTOMATED METHOD 09/16/2025 11:20 AM [facility] Protein, Urine 300(A) <=Trace mg/dL LAB URINALYSIS - AUTOMATED METHOD 09/16/2025 11:20 AM [facility] Glucose, Urine Negative Negative mg/dL LAB URINALYSIS - AUTOMATED METHOD 09/16/2025 11:20 AM [facility] Ketones, Urine Trace(A) Negative mg/dL LAB URINALYSIS - AUTOMATED METHOD 09/16/2025 11:20 AM [facility] Urobilinogen , Urine 1.0 0.2 - 1.0 mg/dL LAB URINALYSIS - AUTOMATED METHOD 09/16/2025 11:20 AM [facility] Bilirubin, Urine Negative Negative LAB URINALYSIS - AUTOMATED METHOD 09/16/2025 11:20 AM [facility] Blood, Urine Trace(A) Negative LAB URINALYSIS - AUTOMATED METHOD 09/16/2025 11:20 AM [facility] RBC, Urine 9.9(H) 0 - 4 /HPF LAB URINALYSIS - AUTOMATED METHOD 09/16/2025 11:20 AM [facility] WBC, Urine 1,366.1(H) 0 - 4 /HPF LAB URINALYSIS - AUTOMATED METHOD 09/16/2025 11:20 AM [facility] Squamous Epithelial, Urine 13 0 - 60 /LPF LAB URINALYSIS - AUTOMATED METHOD 09/16/2025 11:20 AM [facility] Bacteria, Urine Many(A) Negative /HPF LAB URINALYSIS - AUTOMATED METHOD 09/16/2025 11:20 AM [facility] Hyaline Casts, Urine 1.4 0 - 3 /LPF LAB URINALYSIS - AUTOMATED METHOD 09/16/2025 11:20 AM EDT [facility] Urine Urine specimen from urethra / Unknown 09/15/2025 09/16/2025 10:18 AM EDT us Mohit Willis MD LAB URINE ORDERABLES Final Resul t Performing Organization Address City/[facility]/ZIP Co de Phone Number [facility] [address] [place] [address], [place] [phone] * Mazariegos urine culture tube (09/15/2025 12:00 AM EDT) Extra Tube Hold for add-ons. 09/16/2025 12:01 PM EDT [facility] Comment:Auto resulted. Urine Urine specimen from urethra / Unknown 09/15/2025 09/16/2025 10:18 AM EDT Mohit Willis MD LAB URINE ORDERABLES Final Resul t Performing Organization Address [facility] Co de Phone Number [facility] [address] [place] [address], [place] [phone] documented in this encounter Visit Diagnoses Diagnosis Altered mental status, unspecified documented in this encounter Care Teams Delivery Driver Assistant Relationship Specialty Start Date End Date Yong Dodson MD [address] [place] [phone] PCP - General Family Medicine 07/25/25 documented as of this encounter
--- OUTSIDE RECORDS SUMMARY | 2025-10-28 20:33 | XMS_ITS | Encounter Summary ---
Author Organization [facility] Address [address] [place] [address] Care Team Providers Care Soil Conservation Aide Name Role Phone Yong Dodson MD Primary Care Provider [phone] Encounter Details Date Type Department Care Team (Late st Contact Info) Description 09/29/2025 Lab Requisition [facility] - Main Lab [address] [facility] [place] [address] Mohit Willis MD [address] [place] [address] Shortness of breath Social History Tobacco Use [...] breath documented in this encounter Care Teams Soil Conservation Aide Relationship Specialty Start Date End Date Yong Dodson MD [address] [place] [address] [address] [place], [phone] PCP - General Family Medicine 07/25/25 documented as of this encounter
--- OUTSIDE RECORDS SUMMARY | 2025-10-28 20:33 | XMS_ITS | Clinical Summary ---
Author Organization [address] Address [address] [place] [phone] Phone Care Team Providers Care Entry Level Chemist Name Role Phone Yong Dodson MD Primary Care Provider [phone] Encounters Date Type Department Care Team Description 09/29/2025 Lab Requisition [facility] [address] [place] [phone] Mohit Willis MD Urinary tract infection, site not specified; Elevated white blood cell count, unspecified; Heart failure, unspecified (CMS/[facility] V24, CMS/[facility] V28) 09/29/2025 Lab Requisition [facility] [address] [place] [phone] Mohit Willis MD Shortness of breath 09/24/2025 Lab Requisition [facility] [address] [place] [phone] Mohit Willis MD Heart failure, unspecified (CMS/HCC [...] V24); Shortness of breath 09/16/2025 Lab Requisition [facility] [address] [place] [phone] Mohit Willis MD Altered mental status, unspecified 09/15/2025 Lab Requisition [facility] [address] [place] [phone] Mohit Willis MD Chronic obstructive pulmonary disease, unspecified ([facility] V24, [facility] V28); Heart failure, unspecified ([facility] V24, [facility] V28) 08/18/2025 Lab Requisition [facility] [address] [place] [phone] Yong Dodson MD Unspecified infectious disease 08/08/2025 Lab Requisition [facility] [address] [place] [phone] Yong Dodson MD Chronic obstructive pulmonary disease, unspecified ([facility] V24, [facility] V28) 08/04/2025 Lab Requisition [facility] [address] [place] [phone] Yong Dodson MD Chronic kidney disease, stage 3a ([facility] V24, [facility] V28); Altered mental status, unspecified 08/03/2025 Lab Requisition [facility] [address] [place] [phone] Yong Dodson MD Chronic obstructive pulmonary disease, unspecified ([facility] V24, [facility] V28) 08/02/2025 Lab Requisition [facility] [address] [place] [phone] Yong Dodson MD Chronic kidney disease, stage 3a ([facility] V24, [facility] V28) from Last 3 Months Social History [...] Zoster Vaccines (2 of 3) 05/29/2019 04/03/2019, 090 11/2016 RSV Immunization Adult Patients (1 - 1-dose 75+ series) 2020 Depression Screening 11/20/2024 COVID-19 Vaccine (4 - 2024- season) 2025 09/29/2021, 01/19/2021, 12/28/2020 Influenza Vaccine [...] Chronic kidney disease, stage 3a (CMS/HCC V24, [facility] V28) from Last 3 Months Results * Lavender tube (09/29/2025 6:47 AM EST) Only the most recent of3 resultswithin the time period is included. Pathologist [facility] Extra Tube Hold for add-ons. 09/29/2025 12:01 PM EST [facility] Comment:Auto resulted. Blood Venous blood specimen / Unknown Venipuncture / Unknown 09/29/2025 6:47 AM EST 09/29/2025 10:42 AM EST Mohit Willis MD LAB BLOOD ORDERABLES Final Resul t [facility] [address] [place] [address], [place] [phone] * (ABNORMAL) Complete blood count (09/29/2025 6:47 AM EST) Only the most recent of5 resultswithin the time period is included. [facility] WBC 12.3(H) 4.8 - 10.8 K/mcL LAB HEMETOLOGY METHOD 09/29/2025 12:20 PM [facility] RBC 3.50(L) 3.80 - 4.80 M/mcL LAB HEMETOLOGY METHOD 09/29/2025 12:20 PM [facility] Hemoglobin 10.2(L) 11.5 - 16.0 g/dL LAB HEMETOLOGY METHOD 09/29/2025 12:20 PM [facility] Hematocrit 33.3(L) 35.0 - 47.0 % LAB HEMETOLOGY METHOD 09/29/2025 12:20 PM [facility] MCV 96.5 79.0 - 98.0 FL LAB HEMETOLOGY METHOD 09/29/2025 12:20 PM [facility] MCH 29.6 27.0 - 32.0 pcg LAB HEMETOLOGY METHOD 09/29/2025 12:20 PM EST [facility] MCHC 30.6(L) 32.0 - 37.0 g/dL LAB HEMETOLOGY METHOD 09/29/2025 12:20 PM EST [facility] RDW 15.0 11.0 - 15.0 % LAB HEMETOLOGY METHOD 09/29/2025 12:20 PM EST [facility] Platelets 202 130 - 400 K/mcL LAB HEMETOLOGY METHOD 09/29/2025 12:20 PM [facility] MPV 10.9 7.0 - 11.0 FL LAB HEMETOLOGY METHOD 09/29/2025 12:20 PM [facility] NRBC 0.0 <1.0 % LAB HEMETOLOGY METHOD 09/29/2025 12:20 PM EST [facility] NRBC Absolute 0.00 <0.10 K/mcL LAB HEMETOLOGY METHOD 09/29/2025 12:20 PM [facility] Blood Venous blood specimen / Unknown Venipuncture / Unknown 09/29/2025 6:47 AM EST 09/29/2025 10:42 AM EST us Mohit Willis MD LAB BLOOD ORDERABLES Final Resul t [facility] [address] [place] [address], * (ABNORMAL) Comprehensive metabolic panel (09/29/2025 6:47 AM EST) Only the most recent of4 resultswithin the time period is included. Sodium 140 133 - 145 mmol/L LAB CHEMISTRY METHOD 09/29/2025 12:43 PM EST [facility] Potassium 4.3 3.5 - 5.5 mmol/L LAB CHEMISTRY METHOD 09/29/2025 12:43 PM [facility] Chloride 107 96 - 110 mmol/L LAB CHEMISTRY METHOD 09/29/2025 12:43 PM [facility] CO2 26 21 - 32 mmol/L LAB CHEMISTRY METHOD 09/29/2025 12:43 PM [facility] Anion Gap 7 3 - 11 LAB CHEMISTRY METHOD 09/29/2025 12:43 PM [facility] Glucose 245(H) 70 - 100 mg/dL LAB CHEMISTRY METHOD 09/29/2025 12:43 PM [facility] BUN 21 5 - 25 mg/dL LAB CHEMISTRY METHOD 09/29/2025 12:43 PM [facility] Creatinine 1.22(H) 0.50 - 1.10 mg/dL LAB CHEMISTRY METHOD 09/29/2025 12:43 PM [facility] eGFR 45(L) >=60 mL/min/1. 73m2 LAB CHEMISTRY METHOD 09/29/2025 12:43 PM [facility] Comment:Calculation based on the Chronic Kidney Disease Epidemiology Collaboration (CKD-EPI) equation refit without adjustment for race. BUN/Creatinine Ratio 17.2 LAB CHEMISTRY METHOD 09/29/2025 12:43 PM [facility] Calcium 8.8 8.5 - 10.5 mg/dL LAB CHEMISTRY METHOD 09/29/2025 12:43 PM [facility] AST (SGOT) 14 10 - 42 unit/L LAB CHEMISTRY METHOD 09/29/2025 12:43 PM [facility] ALT (SGPT) 21 10 - 60 unit/L LAB CHEMISTRY METHOD 09/29/2025 12:43 PM [facility] Alkaline Phosphatase 105 42 - 121 unit/L LAB CHEMISTRY METHOD 09/29/2025 12:43 PM [facility] Total Protein 6.0 6.0 - 8.0 g/dL LAB CHEMISTRY METHOD 09/29/2025 12:43 PM [facility] Albumin 2.7(L) 3.2 - 5.0 g/dL LAB CHEMISTRY METHOD 09/29/2025 12:43 PM EST [facility] Total Bilirubin 0.3 0.0 - 1.4 mg/dL LAB CHEMISTRY METHOD 09/29/2025 12:43 PM EST [facility] Blood Venous blood specimen / Unknown Venipuncture / Unknown 09/29/2025 6:47 AM EST 09/29/2025 10:42 AM EST us Mohit Willis MD LAB BLOOD ORDERABLES Final Resul t [facility] [address] [place] [address], * (ABNORMAL) CBC auto differential (09/15/2025 6:28 AM EDT) WBC 19.4(H) 4.8 - 10.8 K/mcL LAB HEMETOLOGY METHOD 09/15/2025 11[facility] RBC 3.10(L) 3.80 - 4.80 M/mcL LAB HEMETOLOGY METHOD 09/15/2025 11:[facility] Hemoglobin 9.4(L) 11.5 - 16.0 g/dL LAB HEMETOLOGY METHOD 09/15/2025 11:13 AM [facility] Hematocrit 30.5(L) 35.0 - 47.0 % LAB HEMETOLOGY METHOD 09/15/2025 11:13 AM EDT [facility] MCV 97.1 79.0 - 98.0 FL LAB HEMETOLOGY METHOD 09/15/2025 11:13 AM [facility] MCH 29.9 27.0 - 32.0 pcg LAB HEMETOLOGY METHOD 09/15/2025 11:13 AM [facility] MCHC 30.8(L) 32.0 - 37.0 g/dL LAB HEMETOLOGY METHOD 09/15/2025 11:13 AM [facility] RDW 15.8(H) 11.0 - 15.0 % LAB HEMETOLOGY METHOD 09/15/2025 11:13 AM [facility] Platelets 215 130 - 400 K/mcL LAB HEMETOLOGY METHOD 09/15/2025 11:13 AM [facility] MPV 11.4(H) 7.0 - 11.0 FL LAB HEMETOLOGY METHOD 09/15/2025 11:13 AM [facility] NRBC 0.0 <1.0 % LAB HEMETOLOGY METHOD 09/15/2025 11:13 AM [facility] NRBC Absolute 0.00 <0.10 K/mcL LAB HEMETOLOGY METHOD 09/15/2025 11:13 AM [facility] Neutrophils Relative 86.5 % LAB HEMETOLOGY METHOD 09/15/2025 11:13 AM [facility] Lymphocytes Relative 6.8 % LAB HEMETOLOGY METHOD 09/15/2025 11:13 AM [facility] Monocytes Relative 4.9 % LAB HEMETOLOGY METHOD 09/15/2025 11:13 AM [facility] Eosinophils Relative 0.6 % LAB HEMETOLOGY METHOD 09/15/2025 11:13 AM [facility] Basophils Relative 0.3 % LAB HEMETOLOGY METHOD 09/15/2025 11:13 AM [facility] Immature Granulocytes Relative 0.9 % LAB HEMETOLOGY METHOD 09/15/2025 11:13 AM [facility] Neutrophils Absolute 16.77(H) 1.50 - 7.00 K/mcL LAB HEMETOLOGY METHOD 09/15/2025 11:13 AM [facility] Lymphocytes Absolute 1.32 1.00 - [...] 09/15/2025 11:13 AM EDT [facility] Blood Venous blood specimen / Unknown Venipuncture / Unknown 09/15/2025 6:28 AM EDT 09/15/2025 10:14 AM EDT us Mohit Willis MD LAB BLOOD ORDERABLES Final Resul t [facility] [address] [place] [address], * (ABNORMAL) Urinalysis with reflex microscopic and culture (09/15/2025 12:00 AM EDT) Only the most recent of2 resultswithin the time period is included. Specific [place] Urine 1.019 1.003 - 1.030 LAB URINALYSIS - AUTOMATED METHOD 09/16/2025 11:20 AM EDT [facility] pH, Urine 5.5 5.0 - 8.0 pH LAB URINALYSIS - AUTOMATED METHOD 09/16/2025 11:20 AM EDT [facility] Leukocytes, Urine Large(A) Negative LAB URINALYSIS - AUTOMATED METHOD 09/16/2025 11:20 AM [facility] Nitrite, Urine Negative Negative LAB URINALYSIS - AUTOMATED METHOD 09/16/2025 11:20 AM [facility] Protein, Urine 300(A) <=Trace mg/dL LAB URINALYSIS - AUTOMATED METHOD 09/16/2025 11:20 AM [facility] Glucose, Urine Negative Negative mg/dL LAB URINALYSIS - AUTOMATED METHOD 09/16/2025 11:20 AM [facility] Ketones, Urine Trace(A) Negative mg/dL LAB URINALYSIS - AUTOMATED METHOD 09/16/2025 11:20 AM [facility] Urobilinogen , Urine 1.0 0.2 - 1.0 mg/dL LAB URINALYSIS - AUTOMATED METHOD 09/16/2025 11:20 AM [facility] Bilirubin, Urine Negative Negative LAB URINALYSIS - AUTOMATED METHOD 09/16/2025 11:20 AM [facility] Blood, Urine Trace(A) Negative LAB URINALYSIS - AUTOMATED METHOD 09/16/2025 11:20 AM [facility] RBC, Urine 9.9(H) 0 - 4 /HPF LAB URINALYSIS - AUTOMATED METHOD 09/16/2025 11:20 AM [facility] WBC, Urine 1,366.1(H) 0 - 4 /HPF LAB URINALYSIS - AUTOMATED METHOD 09/16/2025 11:20 AM [facility] Squamous Epithelial, Urine 13 0 - 60 /LPF LAB URINALYSIS - AUTOMATED METHOD 09/16/2025 11:20 AM [facility] Bacteria, Urine Many(A) Negative /HPF LAB URINALYSIS - AUTOMATED METHOD 09/16/2025 11:20 AM [facility] Hyaline Casts, Urine 1.4 0 - 3 /LPF LAB URINALYSIS - AUTOMATED METHOD 09/16/2025 11:20 AM EDT [facility] Urine Urine specimen from urethra / Unknown 09/15/2025 09/16/2025 10:18 AM EDT us Mohit Willis MD LAB URINE ORDERABLES Final Resul t Performing Organization Address [facility] Co de Phone Number [facility] [address] [place] [address], [place] [phone] * Mazariegos urine culture tube (09/15/2025 12:00 AM EDT) Only the most recent of2 resultswithin the time period is included. Extra Tube Hold for add-ons. 09/16/2025 12:01 PM EDT [facility] Comment:Auto resulted. Urine Urine specimen from urethra / Unknown 09/15/2025 09/16/2025 10:18 AM EDT us Mohit Willis MD LAB URINE ORDERABLES Final Resul t Performing Organization Address [facility] de Phone Number [facility] [address] [place] [address], [place] [phone] * (ABNORMAL) Culture urine (09/15/2025 12:00 AM EDT) Culture, Urine 10,000-49,000 CFU/mL Enterococcus faecalis(A) NATHALIE 09/19/2025 8:38 AM EDT [facility] Comment: The organism value for this result has been updated. These results have been appended to the previously preliminary verified report. This is an edited result. Previous organism was Enterococcus species on 09/18/2025 at 1314 EDT. Culture, Urine >=100,000 CFU/mL Lactobacillus species(A) NATHALIE 09/19/2025 8:38 AM EDT [facility] Comment: The organism value for [...] MICROBIOLOGY - GENERAL ORDER ALLISON Final Result [facility] [address] [place] [address], [place] [phone] * (ABNORMAL) Basic metabolic panel (08/04/2025 6:15 AM EDT) Sodium 138 133 - 145 mmol/L LAB CHEMISTRY METHOD 08/04/2025 12:39 PM [facility] Potassium 4.2 3.5 - 5.5 mmol/L LAB CHEMISTRY METHOD 08/04/2025 12:39 PM [facility] Chloride 103 96 - 110 mmol/L LAB CHEMISTRY METHOD 08/04/2025 12:39 PM [facility] CO2 25 21 - 32 mmol/L LAB CHEMISTRY METHOD 08/04/2025 12:39 PM [facility] Anion Gap 10 3 - 11 LAB CHEMISTRY METHOD 08/04/2025 12:39 PM [facility] Glucose 181(H) 70 - 100 mg/dL LAB CHEMISTRY METHOD 08/04/2025 12:39 PM [facility] BUN 22 5 - 25 mg/dL LAB CHEMISTRY METHOD 08/04/2025 12:39 PM [facility] Creatinine 0.89 0.50 - 1.10 mg/dL LAB CHEMISTRY METHOD 08/04/2025 12:39 PM EDT [facility] eGFR 66 >=60 mL/min/1. 73m2 LAB CHEMISTRY METHOD 08/04/2025 12:39 PM EDT [facility] Comment:Calculation based on the Chronic Kidney Disease Epidemiology Collaboration (CKD-EPI) equation refit without adjustment for race. BUN/Creatinine Ratio 24.7 LAB CHEMISTRY METHOD 08/04/2025 12:39 PM EDT [facility] Calcium 9.5 8.5 - 10.5 mg/dL LAB CHEMISTRY METHOD 08/04/2025 12:39 PM EDT [facility] Blood Venous blood specimen / Unknown Venipuncture / Unknown 08/04/2025 6:15 AM EDT 08/04/2025 10:56 AM EDT Yong Dodson MD LAB BLOOD ORDERABLES Final Resul t Performing Organization Address City/[facility]/ZIP Co de Phone Number [facility] [address] [place] [address], [place] [phone] * Lipase (08/02/2025 12:29 PM EDT) Pathologist [facility] Lipase 54 13 - 75 unit/L LAB CHEMISTRY METHOD 08/02/2025 1:34 PM EDT [facility] Blood Venous blood specimen / Unknown Venipuncture / Unknown 08/02/2025 12:29 PM EDT 08/02/2025 12:53 PM EDT Yong Dodson MD LAB BLOOD ORDERABLES Final Resul t [facility] [address] [place] [address], [place] [phone] * Amylase (08/02/2025 12:29 PM EDT) Amylase 45 25 - 115 unit/L LAB CHEMISTRY METHOD 08/02/2025 1:34 PM EDT [facility] Blood Venous blood specimen / Unknown Venipuncture / Unknown 08/02/2025 12:29 PM EDT 08/02/2025 12:53 PM EDT us Yong Dodson MD LAB BLOOD ORDERABLES Final Resul t [facility] [address] [place] [address], [place] [phone] from Last 3 Months Insurance MEDICAID - [place] [facility] MEDICARE [employer]AGE Care Teams Entry Level Chemist Relationship Specialty Start Date End Date Yong Dodson MD [address] [place] [address], [phone] PCP - General Family Medicine 07/25/25
--- OUTSIDE RECORDS SUMMARY | 2025-10-28 20:33 | XMS_ITS | Encounter Summary ---
Author Organization [facility] Address [address] [place] [address] Care Team Providers Care Metal Products Viewer Name Role Phone Yong oDdson MD Primary Care Provider [phone] Encounter Details Date Type Department Care Team (Late st Contact Info) Description 09/29/2025 Lab Requisition [facility] [address] [facility] [place] [address] Mohit Willis MD [address] [place], [place] [id number] Urinary tract infection, site not specified; Elevated [...] count, unspecified Heart failure, unspecified (CMS/HCC V24, CMS/[facility] V28) documented in this encounter Results * Lavender tube (09/29/2025 6:47 AM EST) [facility] Extra Tube Hold for add-ons. 09/29/2025 12:01 PM [facility] Comment:Auto resulted. Blood Venous blood specimen / Unknown Venipuncture / Unknown 09/29/2025 6:47 AM EST 09/29/2025 10:42 AM EST us Mohit Willis MD LAB BLOOD ORDERABLES Final Resul t [facility] [address] [place] [address], [place] [phone] * (ABNORMAL) Comprehensive metabolic panel (09/29/2025 6:47 AM EST) [facility] Sodium 140 133 - 145 mmol/L LAB CHEMISTRY METHOD 09/29/2025 12:43 PM [facility] Potassium 4.3 3.5 - 5.5 mmol/L LAB CHEMISTRY METHOD 09/29/2025 12:43 PM [facility] Chloride 107 96 - 110 mmol/L LAB CHEMISTRY METHOD 09/29/2025 12:43 PM [facility] CO2 26 21 - 32 mmol/L LAB CHEMISTRY METHOD 09/29/2025 12:43 PM [facility] Anion Gap 7 3 - 11 LAB CHEMISTRY METHOD 09/29/2025 12:43 PM [facility] Glucose 245(H) 70 - 100 mg/dL LAB CHEMISTRY METHOD 09/29/2025 12:43 PM [facility] BUN 21 5 - 25 mg/dL LAB CHEMISTRY METHOD 09/29/2025 12:43 PM [facility] Creatinine 1.22(H) 0.50 - 1.10 mg/dL LAB CHEMISTRY METHOD 09/29/2025 12:43 PM [facility] eGFR 45(L) >=60 mL/min/1. 73m2 LAB CHEMISTRY METHOD 09/29/2025 12:43 PM [facility] Comment:Calculation based on the Chronic Kidney Disease Epidemiology Collaboration (CKD-EPI) equation refit without adjustment for race. BUN/Creatinine Ratio 17.2 LAB CHEMISTRY METHOD 09/29/2025 12:43 PM [facility] Calcium 8.8 8.5 - 10.5 mg/dL LAB CHEMISTRY METHOD 09/29/2025 12:43 PM [facility] AST (SGOT) 14 10 - 42 unit/L LAB CHEMISTRY METHOD 09/29/2025 12:43 PM [facility] ALT (SGPT) 21 10 - 60 unit/L LAB CHEMISTRY METHOD 09/29/2025 12:43 PM [facility] Alkaline Phosphatase 105 42 - 121 unit/L LAB CHEMISTRY METHOD 09/29/2025 12:43 PM [facility] Total Protein 6.0 6.0 - 8.0 g/dL LAB CHEMISTRY METHOD 09/29/2025 12:43 PM [facility] Albumin 2.7(L) 3.2 - 5.0 g/dL LAB CHEMISTRY METHOD 09/29/2025 12:43 PM [facility] Total Bilirubin 0.3 0.0 - 1.4 mg/dL LAB CHEMISTRY METHOD 09/29/2025 12:43 PM [facility] Blood Venous blood specimen / Unknown Venipuncture / Unknown 09/29/2025 6:47 AM EST 09/29/2025 10:42 AM EST us Mohit Willis MD LAB BLOOD ORDERABLES Final Resul t [facility] [address] [place] [address], [place] [phone] * (ABNORMAL) Complete blood count (09/29/2025 6:47 AM EST) [facility] WBC 12.3(H) 4.8 - 10.8 K/mcL LAB HEMETOLOGY METHOD 09/29/2025 12:20 PM [facility] RBC 3.50(L) 3.80 - 4.80 M/mcL LAB HEMETOLOGY METHOD 09/29/2025 12:20 PM [facility] Hemoglobin 10.2(L) 11.5 - 16.0 g/dL LAB HEMETOLOGY METHOD 09/29/2025 12:20 PM [facility] Hematocrit 33.3(L) 35.0 - 47.0 % LAB HEMETOLOGY METHOD 09/29/2025 12:20 PM [facility] MCV 96.5 79.0 - 98.0 FL LAB HEMETOLOGY METHOD 09/29/2025 12:20 PM [facility] MCH 29.6 27.0 - 32.0 pcg LAB HEMETOLOGY METHOD 09/29/2025 12:20 PM [facility] MCHC 30.6(L) 32.0 - 37.0 g/dL LAB HEMETOLOGY METHOD 09/29/2025 12:20 PM [facility] RDW 15.0 11.0 - 15.0 % LAB HEMETOLOGY METHOD 09/29/2025 12:20 PM [facility] Platelets 202 130 - 400 K/mcL LAB HEMETOLOGY METHOD 09/29/2025 12:20 PM [facility] MPV 10.9 7.0 - 11.0 FL LAB HEMETOLOGY METHOD 09/29/2025 12:20 PM [facility] NRBC 0.0 <1.0 % LAB HEMETOLOGY METHOD 09/29/2025 12:20 PM [facility] NRBC Absolute 0.00 <0.10 K/mcL LAB HEMETOLOGY METHOD 09/29/2025 12:20 PM EST [facility] Blood Venous blood specimen / Unknown Venipuncture / Unknown 09/29/2025 6:47 AM EST 09/29/2025 10:42 AM EST us Mohit Willis MD LAB BLOOD ORDERABLES Final Resul t [facility] [address] [place] [address], documented in this encounter Visit Diagnoses Diagnosis Urinary tract infection, site not specified Elevated white blood cell count, unspecified Heart failure, unspecified (CMS/HCC V24, CMS/HCC V28) Heart failure, unspecified documented in this encounter Care Teams Metal Products Viewer Relationship Specialty Start Date End Date Yong Dodson MD [address] [place] [address], [phone] PCP - General Family Medicine 07/25/25 documented as of this encounter
--- OUTSIDE RECORDS SUMMARY | 2025-10-28 20:33 | XMS_ITS | Encounter Summary ---
Author Organization [facility] Address [address] [place] [address] Care Team Providers Care Rental Manager Name Role Phone Yong Dodson MD Primary Care Provider [phone] Encounter Details Date Type Department Care Team (Late st Contact Info) Description 08/03/[address] [facility] - Main Lab [address] [place] [address] Yong Dodson MD [address] [facility] [address] [place], [phone] Chronic obstructive pulmonary disease, unspecified (CMS/HCC [...] LAB CHEMISTRY METHOD 08/04/2025 12:39 PM EDT [facility] ([facility] Potassium 4.2 3.5 - 5.5 mmol/L LAB CHEMISTRY METHOD 08/04/2025 12:39 PM [facility] Chloride 103 96 - 110 mmol/L LAB CHEMISTRY METHOD 08/04/2025 12:39 PM [facility] CO2 25 21 - 32 mmol/L LAB CHEMISTRY METHOD 08/04/2025 12:39 PM [facility] Anion Gap 10 3 - 11 LAB CHEMISTRY METHOD 08/04/2025 12:39 PM [facility] Glucose 181(H) 70 - 100 mg/dL LAB CHEMISTRY METHOD 08/04/2025 12:39 PM [facility] BUN 22 5 - 25 mg/dL LAB CHEMISTRY METHOD 08/04/2025 12:39 PM [facility] Creatinine 0.89 0.50 - 1.10 mg/dL LAB CHEMISTRY METHOD 08/04/2025 12:39 PM [facility] eGFR 66 >=60 mL/min/1. 73m2 LAB CHEMISTRY METHOD 08/04/2025 12:39 PM [facility] Comment:Calculation based on the Chronic Kidney Disease Epidemiology Collaboration (CKD-EPI) equation refit without adjustment for race. BUN/Creatinine Ratio 24.7 LAB CHEMISTRY METHOD 08/04/2025 12:39 PM [facility] Calcium 9.5 8.5 - 10.5 mg/dL LAB CHEMISTRY METHOD 08/04/2025 12:39 PM [facility] Blood Venous blood specimen / Unknown Venipuncture / Unknown 08/04/2025 6:15 AM EDT 08/04/2025 10:56 AM EDT us Yong Dodson MD LAB BLOOD ORDERABLES Final Resul t [facility] [address] [place] [address], [place] [phone] * (ABNORMAL) Complete blood count (08/04/2025 6:15 AM EDT) [facility] WBC 12.4(H) 4.8 - 10.8 K/mcL LAB HEMETOLOGY METHOD 08/04/2025 1:04 PM [facility] RBC 3.60(L) 3.80 - 4.80 M/mcL LAB HEMETOLOGY METHOD [facility] Hemoglobin 10.6(L) 11.5 - 16.0 g/dL LAB HEMETOLOGY METHOD 08/04/2025 1:04 PM [facility] Hematocrit 34.7(L) 35.0 - 47.0 % LAB HEMETOLOGY METHOD 08/04/2025 1:04 PM [facility] MCV 97.5 79.0 - 98.0 FL LAB HEMETOLOGY METHOD 08/04[facility]2025 [facility] MCH 29.8 27.0 - 32.0 pcg LAB HEMETOLOGY METHOD 08/04/2025 1:04 PM [facility] MCHC 30.5(L) 32.0 - 37.0 g/dL LAB HEMETOLOGY METHOD 08/04/2025 1:04 PM [facility] RDW 14.6 11.0 - 15.0 % LAB HEMETOLOGY METHOD 08/04/2025 1:04 PM [facility] Platelets 274 130 - 400 K/mcL LAB HEMETOLOGY METHOD 08/04/2025 1:04 PM [facility] MPV 10.7 7.0 - 11.0 FL LAB HEMETOLOGY METHOD 08/04/2025 1:04 PM [facility] NRBC 0.0 <1.0 % LAB HEMETOLOGY METHOD [facility] NRBC Absolute 0.00 <0.10 K/mcL LAB HEMETOLOGY METHOD 08/04/2025 1:[address] [facility] Blood Venous blood specimen / Unknown Venipuncture / Unknown 08/04/2025 6:15 AM EDT 08/04/2025 10:56 AM EDT us Yong Dodson MD LAB BLOOD ORDERABLES Final Resul t [facility] [address] [place] [address], documented in this encounter Visit Diagnoses Diagnosis Chronic obstructive pulmonary disease, unspecified (CMS/HCC V24, CMS/HCC V28) documented in this encounter Care Teams Rental Manager Relationship Specialty Start Date End Date Yong Dodson MD [address] [place] [phone] PCP - General Family Medicine 07/25/25 documented as of this encounter
== END 2025-10-28 15:52 | disposition home or self-care (01) ==
LOC: HO.HCS 14:38
PROVIDERS: PCP Nurse Practitioner Gerontology
DX: I25.10 Atherosclerotic heart disease of native coronary artery without angina pectoris (principal); R06.00 Dyspnea, unspecified; J44.9 Chronic obstructive pulmonary disease, unspecified; E78.5 Hyperlipidemia, unspecified; I10 Essential (primary) hypertension
CPT/HCPCS: 99214; G2211

== ENCOUNTER → 2025-10-28 14:37 | Outpatient (BNVA) | payer MEDICARE, SELFPAY | PROVIDERS: PCP Nurse Practitioner Gerontology | DX: I25.10 Atherosclerotic heart disease of native coronary artery without angina pectoris (principal); I10 Essential (primary) hypertension; R06.00 Dyspnea, unspecified; J44.9 Chronic obstructive pulmonary disease, unspecified; E78.5 Hyperlipidemia, unspecified; Z95.5 Presence of coronary angioplasty implant and graft; Z98.890 Other specified postprocedural states | CPT/HCPCS: 99212 ==